=== PATIENT | male | born 1955 | race Caucasian/White ===

== ENCOUNTER 2017-05-21 21:08 | Emergency (ER) | payer MEDICAID, SELFPAY ==
[2017-05-21 21:09] VITALS: BP 198/98; PULSE 68; RESP 20; TEMP 36.8; O2SAT 93; BMI 33.8
--- NOTE | 2017-05-21 22:43 | ED.VISSUMM ---
- ER Visit Summary Date of Service: 05/21/17 Chief Complaint: [] Right leg graft site redness History of Present Illness: The patient is a 61 M who stated he had a right lower leg graft of a vein from his left arm to his right lower extremity on the seventh of this month at the [facility]. He noticed yesterday started to get red and slightly sore. Comes in for further evaluation. He has been using chlorhexidine cleanser. No postop antibiotics were given. He spent one night in the hospital. No previous infections. Physical Examination: Vital signs reviewed General: Well-nourished well-developed Head: Normocephalic atraumatic Eyes: Pupils equal round and reactive to light extraocular movements intact ENT: TMs clear no hemotympanum no trauma Neck: Nontender full range of motion Cardiovascular: Regular rate rhythm no murmurs normal S1-S2 Respiratory: No distress clear to auscultation bilaterally chest nontender Abdomen: Soft nontender nondistended normal bowel sounds no masses Back: Nontender no CVA tenderness Extremities: Nontender active range of motion ?4 extremities no trauma Skin: Since wound on his right lower extremity is scabbed over except for the central portion measuring 1 inch. There is mild fluid without any significant drainage. There is a very mild half centimeter surrounding cellulitis centrally. No fluctuance. Neuro alert oriented cranial nerves II through XII intact normal strength sensation reflexes Test Results: [] Emergency Department Course and Treatment: [] Patient will be given 1 dose of IV vancomycin for the superficial skin infection. He will be discharged with Bactrim and Keflex. I do not feel he needs admission. He will call his surgeon tomorrow for further evaluation. If his symptoms worsen despite treatment. There is no signs or symptoms of sepsis. He caught this early. Treatment Plan: [] Disposition: [] Impression: [] Post operative wound cellulitis This note was generated with [employer] dictation software. It may contain incorrect words, spelling, and punctuation that were not noted in review of the chart prior to signing ED Disposition - Plan for ED Patient: Chief Complaint: Wound Referrals: Curtis Faulkner MD [Primary Care Provider] -
--- NOTE | 2017-05-21 22:46 | ED.DCSUM_ITS ---
- ER Visit Summary Date of Service: 05/21/17 Chief Complaint: [] Right leg graft site redness History of Present Illness: The patient is a 61 M who stated he had a right lower leg graft of a vein from his left arm to his right lower extremity on the seventh of this month at the [facility]. He noticed yesterday started to get red and slightly sore. Comes in for further evaluation. He has been using chlorhexidine cleanser. No postop antibiotics were given. He spent one night in the hospital. No previous infections. Physical Examination: Vital signs reviewed General: Well-nourished well-developed Head: Normocephalic atraumatic Eyes: Pupils equal round and reactive to light extraocular movements intact ENT: TMs clear no hemotympanum no trauma Neck: Nontender full range of motion Cardiovascular: Regular rate rhythm no murmurs normal S1-S2 Respiratory: No distress clear to auscultation bilaterally chest nontender Abdomen: Soft nontender nondistended normal bowel sounds no masses Back: Nontender no CVA tenderness Extremities: Nontender active range of motion ?4 extremities no trauma Skin: Since wound on his right lower extremity is scabbed over except for the central portion measuring 1 inch. There is mild fluid without any significant drainage. There is a very mild half centimeter surrounding cellulitis centrally. No fluctuance. Neuro alert oriented cranial nerves II through XII intact normal strength sensation reflexes Test Results: [] Emergency Department Course and Treatment: [] Patient will be given 1 dose of IV vancomycin for the superficial skin infection. He will be discharged with Bactrim and Keflex. I do not feel he needs admission. He will call his surgeon tomorrow for further evaluation. If his symptoms worsen despite treatment. There is no signs or symptoms of sepsis. He caught this early. Treatment Plan: [] Disposition: [] Impression: [] Post operative wound cellulitis This note was generated with [employer] dictation software. It may contain incorrect words, spelling, and punctuation that were not noted in review of the chart prior to signing ED Disposition - Plan for ED Patient: Chief Complaint: Wound Referrals: Curtis Faulkner MD [Primary Care Provider] -
--- NOTE | 2017-05-21 22:46 | ED.DEP ---
ED Disposition - Plan for ED Patient: Disposition: Home or Assisted Living Chief Complaint: Wound Instructions: ED Wound Infec After Surgery Prescriptions: Cephalexin [Keflex] 500 mg PO Q6 #30 cap Smz/Tmp Ds [Bactrim Ds] 2 tab PO BID #28 tab Referrals: Curtis Faulkner MD [Primary Care Provider] - Additional Instructions: Follow with your surgeon on the telephone tomorrow for wound recheck.
[2017-05-22 00:11] VITALS: RESP 17; O2SAT 99
[2017-05-22 02:45] VITALS: BP 155/83; PULSE 67; RESP 16; O2SAT 94
--- NOTE | 2017-05-22 02:46 | ED.RN ---
IV SITE REMOVED CATHETER TIP INTACT. BLEEDING CONTROLLED. PATIENT DENIES ANY FURTHER NEEDS
== END 2017-05-22 02:46 | disposition home or self-care (01) ==
PROVIDERS: Emergency Provider Emergency Medicine; Family Provider Family Medicine; PCP Family Medicine
DX: T81.4XXA Infection following a procedure, initial encounter (principal); L03.115 Cellulitis of right lower limb; I73.9 Peripheral vascular disease, unspecified; E11.9 Type 2 diabetes mellitus without complications; E78.00 Pure hypercholesterolemia, unspecified; E66.9 Obesity, unspecified; Z79.82 Long term (current) use of aspirin; Z79.4 Long term (current) use of insulin; Z79.891 Long term (current) use of opiate analgesic; Z79.899 Other long term (current) drug therapy
CPT/HCPCS: 96365; 96366; 99283; J7040; A4216

== ENCOUNTER 2018-08-16 21:44 | Emergency (ER) | payer MEDICARE, SELFPAY ==
[2018-08-16 21:45] VITALS: BP 140/79; PULSE 120; RESP 18; TEMP 36.6; O2SAT 98; BMI 33.3
[2018-08-16] MEDS: Carbamide Peroxide 15 ML Bottle 5 DRP OTIC (23:09)
--- NOTE | 2018-08-16 23:37 | ED.VISSUMM ---
- ER Visit Summary Date of Service: 08/16/18 Chief Complaint: Ear pain History of Present Illness: The patient is a 63 M with right ear pain and decreased hearing. No other symptoms. Physical Examination: Patient has a cerumen impaction. Right ear is nontender. Skin normal. Test Results: None indicated Emergency Department Course and Treatment: Debrox applied. Nursing irrigated his ear. I was able to visualize his TM, and it was intact. No other pertinent findings. Patient was instructed on home care. Will be discharged. Treatment Plan: As above Disposition: Discharge Impression: 1. Right ear cerumen impaction This note was generated with [employer] dictation software. It may contain incorrect words, spelling, and punctuation that were not noted in review of the chart prior to signing ED Disposition - Plan for ED Patient: Referrals: Salty Sorto MD [Primary Care Provider] -
--- NOTE | 2018-08-16 23:38 | ED.DEP ---
ED Disposition - Plan for ED Patient: Instructions: ED Cerumen Impaction Treated Referrals: Salty Sorto MD [Primary Care Provider] -
[2018-08-16 23:46] VITALS: BP 138/72; PULSE 98; RESP 16; O2SAT 98
== END 2018-08-16 23:48 | disposition home or self-care (01) ==
LOC: ED 22:57
PROVIDERS: Emergency Provider Emergency Medicine; Family Provider Family Medicine; PCP Family Medicine
DX: H61.21 Impacted cerumen, right ear (principal); I10 Essential (primary) hypertension; E11.9 Type 2 diabetes mellitus without complications; E78.00 Pure hypercholesterolemia, unspecified; Z72.0 Tobacco use; Z79.82 Long term (current) use of aspirin; Z79.84 Long term (current) use of oral hypoglycemic drugs; Z79.899 Other long term (current) drug therapy
CPT/HCPCS: 99283

== ENCOUNTER 2021-08-09 14:07 | Emergency (ER) | payer MEDICARE, SELFPAY ==
[2021-08-09 14:08] VITALS: BP 158/89; PULSE 77; RESP 16; TEMP 36.4; O2SAT 93; BMI 33.0
--- NOTE | 2021-08-09 14:28 | CT_ITS ---
STUDY: CT ABDOMEN AND PELVIS WITHOUT CONTRAST REASON FOR EXAM: Male, 66 years old. Right flank pain. History of kidney stones. RADIATION DOSAGE (If Supplied By Facility): CTDIvol = ( 19.48 ) mGy, DLP = ( 953.83 ) mGycm TECHNIQUE: Transaxial images were obtained from the dome of the diaphragm to the symphysis pubis without oral contrast, and without intravenous contrast. Sagittal and coronal images were reconstructed. Individualized dose optimization techniques were used for this CT. COMPARISON: None. FINDINGS: Calcified granuloma in the anterior aspect of the right lower lobe. The visualized portions of the heart are within normal limits. Normal liver. There is a solitary gallstone. This measures 1.4 cm. There are multiple benign calcified granulomata of the spleen. Normal pancreas. There is a 3.3 cm x 2.7 cm fat-containing nodule in the left adrenal gland suggestive of a myelolipoma. There is also evidence of a 1.4 cm adenoma in the crux of the right adrenal gland. Normal right kidney. Normal left kidney. Normal visualized stomach. Normal small intestine. There are scattered colonic diverticula consistent with diverticulosis. The appendix is visualized and appears normal. There is scattered atherosclerotic calcification of the abdominal aorta, without a demonstrated aneurysm. Normal inferior vena cava. Normal retroperitoneum. Normal urinary bladder. There is enlargement of the prostate gland. It measures 5.9 cm x 4.7 cm. There is a small umbilical hernia containing fat. Normal osseous structures. CT/Abdomen/Pelvis without Cont IMPRESSION: Solitary gallstone. 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 Small adenoma in the right adrenal gland. Prostatic hypertrophy. Electronically Signed: Jose Manuel Zhu MD at 15:12 EDT ,
--- NOTE | 2021-08-09 14:29 | ED.VIS.GI ---
HPI HPI - GI History of Present Illness Chief Complaint: Flank Pain Informant: patient Abdominal Pain/Flank Pain Onset: Days Context: Sudden Onset Timing: Continuous Quality: Aching Location: Right Flank Current Severity: Moderate Maximum Severity: Moderate Worsened by: Movement Relieved by: Remaining Still Nausea/Vomiting/Emesis GI Symptom: Negative for Nausea and Vomiting Diarrhea/Melena/Hematochezia GI Symptom: Negative for Diarrhea, Melena and Hematochezia Associated Symptoms Associated Symptoms: Negative for Dysuria, Frequency, Hematuria and Urgency Narrative Narrative: 15-year-old male history of diabetes, prior DVT and prior kidney stone. States that he has had sudden onset right flank pain. That is increased in pain intensity since then. It has been constant. Worse with movement. Denies any falls or trauma. He had kidney stones in the past but feels this feels differently. Denies any dysuria hematuria. No fever. Prior similar symptoms: No Recent Illness/Hospitalization: No PFSH PFS Medical History (Updated 08/09/21 @ 16:[address] Rad Duncan MD) Diabetes type 2, controlled H/O blood clots High cholesterol HTN (hypertension) Home Medications atorvastatin 40 mg PO QHS 12/17/15 [History Last Taken 05/21/17] metoprolol tartrate 12.5 mg PO BID 12/17/15 [History Last Taken 05/21/17] duloxetine 20 mg PO DAILY 11/28/16 [History Last Taken 05/21/17] ropinirole 0.5 mg PO QHS 11/28/16 [History Last Taken 05/21/17] gabapentin 100 mg capsule 100 mg PO TID cap 06/19/17 [History Last Taken Unknown] meloxicam 15 mg tablet 15 mg PO DAILY 06/19/17 [History Last Taken Unknown] aspirin 81 mg PO DAILY 08/16/18 [History Last Taken Unknown] glimepiride 2 mg PO DAILY 08/16/18 [History Last Taken Unknown] hydrocodone-acetaminophen 1 tab PO Q4H PRN 5 Days #20 tab 08/09/21 [Rx Last Taken Unknown] Allergy/AdvReac Type Severity Reaction Status Date / Time No Known Allergies Allergy Verified 08/09/21 14:09 Surgical History vein surgery r leg Social History Smoking Status: Current every day smoker tobacco type: cigarettes alcohol intake: never substance use type: does not use ROS ROS ED ROS Narrative Right flank pain. Review of Systems ROS Unobtainable: Denies due to encephalopathy Constitutional Constitutional ED: Denies chills or fever(s) ENT ENT ED: Denies ear pain Cardiovascular Cardiovascular: Denies chest pain or palpitations Respiratory/Chest Respiratory/Chest: Denies cough or dyspnea Gastrointestinal Gastrointestinal: Denies abdominal pain, constipation, diarrhea, nausea or vomiting Genitourinary Genitourinary ED: Denies dysuria or hematuria Musculoskeletal Musculoskeletal: Reports back pain; Denies arthralgias, myalgias or neck pain Integumentary Denies abscess or rash Neurologic Neurologic: Denies headache(s) Psychiatric Psychiatric: Denies depression Endocrine Endocrinology: Denies polyuria Hematologic/Lymphatic Hematologic/Lymphatic: Denies easy bruising Allergic/Immunologic Allergic/Immunologic ED: Denies urticaria EXAM Physical Exam Narrative Exam Narrative: 66-year-old male vital signs stable afebrile. Does not look septic toxic. H EENT exam unremarkable. Neck nontender. Lungs clear to auscultation bilaterally. Heart regular rhythm no murmur. Chest were nontender. Abdomen soft nontender. No pulsatile mass. No peritoneal signs. Both the right upper and lower quadrants are unremarkable. Moving all 4 extremities. Dorsi plantarflexion intact. No cauda equina. Cervical, thoracic lumbar spine nontender. Left flank nontender. History of abrasion of his right flank and right SI joint. Neurologically is awake and alert with no focal motor deficits Const Vital Signs: 08/09/21 14:08 Temperature 97.5 F L Temperature Source Temporal Pulse Rate 77 Respiratory Rate 16 Blood Pressure 158/89 H Blood Pressure Mean 112 Pulse Ox 93 Oxygen Delivery Method Room Air Positive well nourished, well developed and obese; Negative for cachectic, contractures or unkempt General Appearance ED: well developed and NAD; Negative for unkempt, cachectic, contractures or pallor Nutritional Appearance: obese; Negative for cachectic HEENT Reports moist mucous membranes normocephalic and atraumatic; Negative for trauma or tenderness Eyes PERRL and EOMs intact bilaterally Neck no lymphadenopathy, supple and no JVD Resp normal respiratory effort and clear to auscultation bilaterally Auscultation: Negative for rales, rhonchi or wheezes Cardio regular rate, regular rhythm, S1 normal heart sound, S2 normal heart sound and no murmurs GI non-tender, non-distended and no masses Inspection: Negative for abdominal distention Auscultation: normoactive bowel sounds; Negative for hyperactive bowel sounds or hypoactive bowel sounds Palpation: soft; Negative for tender, guarding, rigid, hepatomegaly, splenomegaly, mass, pulsatile mass or rebound tenderness present Back/Spine Negative for no CVA tenderness Back/Spine Narrative: Right flank tenderness appears to be musculoskeletal. Also right SI joint tenderness. No spine tenderness. No left-sided tenderness. No signs of trauma. General Back: CVA tenderness Cervical Spine: Negative for cervical spine tenderness Thoracic Spine / Upper Back: Negative for thoracic spinal tenderness Lumbar Spine / Lower Back: Negative for lumbar spinal tenderness Extremity full ROM General Extremety ED: Negative for edema or tenderness General Extremity: Negative for edema Neuro moves all extremities Sensorium / Orientation: alert, oriented to person, oriented to place and oriented to time; Negative for orientation impaired, confused, lethargic or stuporous Motor Exam: strength 5/5 throughout Psych mental status grossly normal and thought process normal Appearance: Negative for unkempt Attitude: No agitated Mood & Affect: Negative for depressed or tearful Skin no wounds General Skin Exam: Negative for jaundice or pallor Lesions: no lesions Rashes: no rashes MDM MDM MDM Narrative Medical decision making narrative: 66-year-old male with atraumatic right flank pain. Appears to be reproducible and positive musculoskeletal. He has had kidney stones in the past. He will be treated with IV morphine and Zofran. CAT scan labs being obtained. Multiple repeat exams patient is doing well. He denied further discussions I think this is musculoskeletal pain. We went over all of his test results. He did state that he planting some trees over the weekend and was doing some gardening and yard work and that may have caused him to strain his lower back. He will be written for [employer] for pain. He states he has a walker and a cane at home and he feels comfortable being discharged to home. Lab Data Attestation: I reviewed the patient's lab results. Lab results narrative: CBC shows a white count of 10. H&H of 17 and 53. Electrolytes show a gap of 8 BUN 35 creatinine 1.5. The renal insufficiency is new. Compared to prior labs. Liver enzymes are unremarkable. Glucose 163. CAT scan is read by the radiologist. Urinalysis negative. Labs: Laboratory Results - last 24 hr 08/09/21 08/09/21 08/09/21 14:35 14:35 15:20 WBC 10.7 RBC 5.46 Hgb 17.9 H Hct 53.7 MCV 98.4 H MCH 32.8 H MCHC 33.3 RDW Std Deviation 52.5 H RDW Coeff of Kimberly 14.4 Plt Count 178 MPV 11.0 Immature Gran % (Auto) 0.600 Neut % (Auto) 61.8 Lymph % (Auto) 25.5 [place] % (Auto) 7.1 Eos % (Auto) 4.3 Baso % (Auto) 0.7 Absolute Neuts (auto) 6.6 Absolute Lymphs (auto) 2.73 Nucleated RBC % 0 Sodium 138 Potassium 4.6 Chloride 105 Carbon Dioxide 25.0 Anion Gap 8 BUN 35 H Creatinine 1.53 H Estim Creat Clear Calc 52.95 Est GFR (MDRD) Af Amer 59 L Est GFR (MDRD) Non-Af 49 L BUN/Creatinine Ratio 22.9 H Glucose 163 H Calcium 9.4 Total Bilirubin 0.70 AST 31 ALT 39 Alkaline Phosphatase 56 Total Protein 7.6 Albumin 3.5 Globulin 4.1 Albumin/Globulin Ratio 0.9 Urine Color Yellow Urine Clarity Clear Urine pH 6.0 Ur Specific [place] 1.015 Urine Protein 30 H Urine Glucose (UA) 1000 H Urine Ketones 5 H Urine Occult Blood 10 H Urine Nitrite Negative Urine Bilirubin Negative Urine Urobilinogen Normal Ur Leukocyte Esterase Negative Urine RBC 0 SEEN Urine WBC 0 SEEN Ur Squamous Epith Cells 0 SEEN Urine Bacteria 0 SEEN Urine Mucus 0 SEEN Radiography Diagnostic Testing: Clinical Impression(s) from Imaging Studies Abdomen/Pelvis CT 08/09/21 14:28 IMPRESSION: Solitary gallstone. 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 Small adenoma in the right adrenal gland. Prostatic hypertrophy. Electronically Signed: Jose Manuel Zhu MD at 15:12 EDT , Discharge Plan Triage Chief Complaint: Flank Pain ED Provider: Rad Duncan Dx/Rx/DC Orders Clinical Impression: Low back strain, Acute dehydration, Acute kidney insufficiency, History of diabetes mellitus Instructions: ED Back Sprain/Strain Prescriptions: New hydrocodone-acetaminophen 5-325 mg tablet 1 tab PO Q4H PRN (Reason: pain) 5 Days Qty: 20 RF: 0 No Action gabapentin 100 mg capsule 100 mg PO TID RF: 0 meloxicam 15 mg tablet 15 mg PO DAILY RF: 0 atorvastatin 40 MG tablet 40 mg PO QHS RF: 0 metoprolol tartrate 25 MG tablet 12.5 mg PO BID RF: 0 ropinirole 0.5 MG tablet 0.5 mg PO QHS RF: 0 duloxetine 20 MG capsule 20 mg PO DAILY RF: 0 glimepiride 2 MG tablet 2 mg PO DAILY RF: 0 aspirin 81 MG tablet,chewable 81 mg PO DAILY RF: 0 Primary Care Provider: Salty Sorto Referrals: Salty Sorto MD [Primary Care Provider] - 1 Week if not improving Activity Restrictions/Additional Instructions: Your labs and CAT scan look good. You had mild dehydration make sure you are drinking plenty of fluids. This appears to be strain of your lower back muscles. Hot shower, warm bath and massage. You may use a heating pad. [place] which is a narcotic for pain. Make sure you are drinking plenty of fluids and eating plenty of fruits, vegetables and fiber to prevent constipation. You might even need to use a stool softener. Follow-up with your doctor if not improving or return if worse. Disposition Disposition: Home, Self Care
[2021-08-09] MEDS: morphine 8 MG/ML Syringe IV (14:33)
[2021-08-09] MEDS: Ondansetron 4 MG/2 ML Vial IV (14:33)
[2021-08-09 14:44] LABS: Absolute Lymphocyte Count 2.73 X10^3/uL (0.83-4.51); Absolute Neutrophil Count 6.6 X10^3/uL (2.0-7.7); Basophil# 0.07 X10^3/uL; Basophil% 0.7 % (0-1); Eosinophil# 0.46 X10^3/uL; Eosinophils% 4.3 % (0-5); Hematocrit 53.7 % (40-54); Hemoglobin 17.9 g/dL (13.0-16.5); Lymphocyte # 2.73 X10^3/ul (0.83-4.51); Lymphocyte % 25.5 % (19-41); Mean Corp Hgb Conc 33.3 g/dL (32-36); Mean Corpuscular Hgb 32.8 pg (27.0-32.0); Mean Corpuscular Volume 98.4 fL (80-94); Monocyte# 0.76 X10^3/uL; Monocyte% 7.1 % (0-10); NRBC Flagged by Analyzer 0 % (0-5); Neutrophil # 6.61 X10^3/uL (2.7-7.7); Neutrophil % 61.8 % (47-70); Platelet Count 178 K/mm3 (150-450); RBC Distribution Width CV 14.4 % (11.6-14.6); RBC Distribution Width SD 52.5 fl (35.1-43.9); Red Blood Count 5.46 M/mm3 (4.6-6.2); White Blood Count 10.7 K/mm3 (4.4-11.0)
[2021-08-09 15:02] LABS: ALB/GLOB Ratio 0.9 RATIO (0.9-2.4); AST(SGOT) 31 U/L (15-37); Alanine Aminotransfer ALT/SGPT 39 U/L (16-61); Albumin, Serum 3.5 g/dL (3.2-5.0); Alkaline Phosphatase 56 U/L (45-117); Anion Gap 8 (5-15); BUN 35 mg/dL (7-18); BUN/Creat Ratio 22.9 RATIO (10-20); Calcium,Total 9.4 mg/dL (8.5-10.1); Chloride 105 mmol/L (98-107); Creatinine, Serum 1.53 mg/dL (0.70-1.30); EST Glomerular Filtration Rate 49 mL/min (>60); Est Glom Filt Rate - Afr Amer 59 mL/min (>60); Estimated Creatinine Clearance 52.95 ml/min; Globulin 4.1 g/dL (2.2-4.2); Glucose 163 mg/dL (74-106); Potassium 4.6 mmol/L (3.5-5.1); Protein, Total 7.6 g/dL (6.4-8.2); Sodium Level 138 mmol/L (136-145)
[2021-08-09 15:31] LABS: Bacteria 0 SEEN /hpf (None Seen); Mucous, Urine 0 SEEN /hpf (<or=2+); Red Blood Cells-Urine 0 SEEN /hpf (0-5); Squamous Epithelial Cells - UA 0 SEEN /hpf (0-5); White Blood Cells 0 SEEN /hpf (0-5)
[2021-08-09 15:32] LABS: Color, Urine Yellow (Yellow); Glucose, Dipstick 1000 mg/dl (Normal); Ketone-Dipstick 5 mg/dl (Negative); Leukocyte Esterase-Dipstick Negative /ul (Negative); Nitrite-Dipstick Negative (Negative); Occult Blood-Urine 10 /ul (Negative); Protein-Dipstick 30 mg/dl (Negative); Specific Gravity, Urine 1.015 (1.002-1.030); Urine Bilirubin Dipstick Negative (Negative); Urine Clarity Clear (Clear); Urine Urobilinogen Normal (Normal)
[2021-08-09 17:13] VITALS: BP 137/79; PULSE 71; RESP 16; O2SAT 97
== END 2021-08-09 17:14 | disposition home or self-care (01) ==
PROVIDERS: Emergency Provider Emergency Medicine; PCP Family Medicine; Visit Provider Emergency Medicine
DX: E11.9 Type 2 diabetes mellitus without complications (principal); I10 Essential (primary) hypertension; E86.0 Dehydration; N28.9 Disorder of kidney and ureter, unspecified; E78.00 Pure hypercholesterolemia, unspecified; S39.012A Strain of muscle, fascia and tendon of lower back, initial encounter; Z86.718 Personal history of other venous thrombosis and embolism; X58.XXXA Exposure to other specified factors, initial encounter; Y93.9 Activity, unspecified; Y99.9 Unspecified external cause status; Y92.9 Unspecified place or not applicable; Z79.899 Other long term (current) drug therapy; Z79.82 Long term (current) use of aspirin; Z79.84 Long term (current) use of oral hypoglycemic drugs; F17.210 Nicotine dependence, cigarettes, uncomplicated
CPT/HCPCS: 74176; 80053; 81001; 85025; 96374; 96375; 99284; J7030; A4216; J2405

== ENCOUNTER 2024-10-18 20:17 | Inpatient (IN) | payer MEDICARE, SELFPAY ==
[2024-10-18 20:17] VITALS: BP 130/72; PULSE 90; RESP 16; TEMP 36.1; O2SAT 97; BMI 32.0
[2024-10-18 20:21] VITALS: BP 148/83; PULSE 87; RESP 16; TEMP 36.7; O2SAT 96
--- NOTE | 2024-10-18 20:39 | RAD_ITS ---
PROCEDURE: FOOT MIN 3 VIEWS 10/18/2024 REASON FOR EXAM: GREAT TOE WOUND TECHNIQUE: FOOT MIN 3 VIEWS COMPARISON: None FINDINGS: No displaced fracture or traumatic malalignment. Plantar and Achilles heel spurs. No focal osteopenia. Joint space narrowing throughout the interphalangeal joints. Calcification in the plantar soft tissues, likely dystrophic. Slight soft tissue swelling at the great toe without radiopaque foreign body. RAD/Foot min 3 Views IMPRESSION: No definite radiographic evidence of acute osteomyelitis. Consider MRI or bone scan if there is persistent clinical concern. Reading Location: [id number]
--- OUTSIDE RECORDS SUMMARY | 2024-10-18 20:54 | XMS RPT_ITS | CCD ---
Author Organization [facility] Care Team Providers Care Cafe Cook Name Role Phone Tobi Sorto MD Primary Care Provider ALONDRA BRODERICK Referring Unavailable TOBI SORTO Primary Care Unavailab Tobi Olguin MD Primary Care Provider Podlogar POLICE STENOGRAPHER.Audrey PYLE Unavailable [place] POLICE STENOGRAPHER.Ny PYLE Unavailable [place] POLICE STENOGRAPHER.Ny PYLE Unavailable [place] POLICE STENOGRAPHER.Ny PYLE Unavailable [place] POLICE STENOGRAPHER.Ny PYLE Unavailable TOBI SORTO Primary Care Unavailab le TOBI SORTO Referring Unavailab le TOBI SORTO Primary Care Unavailab le TESTKALPANA, RAO Attending Unavailable TOBI SORTO Primary Care Unavailab TOBI Olguin Referring Unavailab le TOBI SORTO Primary Care Unavailab le TESTRAKERAO Referring Unavailable TOBI SORTO Primary Care Unavailab le TESTRAKERAO Referring Unavailable TESTRAKERAO Attending Unavailable PODLOGAUDREY KWAN Referring Unavailable TOBI SORTO Primary Care Unavailab le PODLOGAR, AUDREY Attending Unavailable TOBI SORTO Primary Care Unavailab le PODLOGAR, AUDREY Attending Unavailable TOBI SORTO Primary Care Unavailab le PODLOGARAUDREY Referring Unavailable TOBI SORTO Primary Care Unavailab le PODLOGAR, AUDREY Attending Unavailable TOBI SORTO Primary Care Unavailab le SELF Referring Unavailable TESTRARAO MENDEZ Referring Unavailable TOBI SORTO Primary Care Unavailab le TESTRAKERAO Attending Unavailable TOBI SORTO Primary Care Unavailab le TESTRAKERAO Attending Unavailable TOBI SORTO Referring Unavailab le TOBI SORTO Primary Care Unavailab le TOBI SORTO Attending Unavailab TOBI Olguin Primary Care Unavailab le TOBI SORTO Primary Care Unavailab le TESTRAKERAO Referring Unavailable TOBI SORTO Primary Care Unavailab le TESTRAKERAO Referring Unavailable TESTRAO ACUNA Attending Unavailable PODLOGARAUDREY Referring Unavailable TOBI SORTO Primary Care Unavailab le TOBI SORTO Primary Care Unavailab le TESTRARAO MENDEZ Attending Unavailable PODLOGARAUDREY Referring Unavailable TOBI SORTO Primary Care Unavailab ROLANDO Vicente Referring Unavailable TOBI SORTO Primary Care Unavailab le PODLOGARAUDREY Referring Unavailable TOBI SORTO Primary Care Unavailab le PODLOGAR, AUDREY Attending Unavailable TOBI SORTO Primary Care Unavailab le TOBI SORTO Primary Care Unavailab le TOBI SORTO Referring Unavailab le TOBI SORTO Attending Unavailab TOBI Olguin Primary Care Unavailab le ROLANDO JEAN Referring Unavailable TOBI SORTO Primary Care Unavailab le PODLOGAUDREY KWAN Attending Unavailable TOBI SORTO Primary Care Unavailab le TOBI SORTO Primary Care Unavailab le TOBI SORTO Referring Unavailab le PODLOGARAUDREY Attending Unavailable TOBI SORTO Primary Care Unavailab le SARINAROLANDO MENDIOLA Attending Unavailable TOBI SORTO Primary Care Unavailab le TOBI SORTO Attending Unavailab TOBI Olguin Primary Care Unavailab le TESTRARAO MENDEZ Referring Unavailable TOBI SORTO Primary Care Unavailab le Medications Current Medications Medication Drug Class(es) Dates Sig (Normalized) Sig (Original) [id number] 200 actuat albuterol 0.09 mg/actuat metered dose inhaler (20 sources) beta2-Adrenergic Agonist Start: 09-16-2024 take 2 puff(s) by inhalation every four hours as needed for wheezing albuterol HFA (VENTOLIN HFA) 90 mcg/actuation inhaler Inhale 2 puffs as instructed every 4 hours as needed for wheezing/shortnes s of breath. 18 g 1 09/16/2024 Active Start: 05-01-2022 End: 09-14-2024 take 2 puff(s) by inhalation every four hours as needed for wheezing albuterol HFA (VENTOLIN HFA) 90 mcg/actuation inhaler Inhale 2 Puffs as instructed every 4 hours as needed for wheezing/shortness of breath. 18 g 1 05/10/2023 09/14/2024 Discontinued Comment on above: Inhale 2 Puffs as in structed every 4 hours as needed for wheezing/shortness of breath. amitriptyline hydrochloride 25 mg oral tablet (20 sources) Tricyclic Antidepressant Start: End: take 1 tablet by mouth once Patient calls and states that he was just recently started on Trazodone. Patient reports that Trazodone has not helped him with sleep. Patient has been taking 100 mg x 1 week and has not noticed it making any difference in helping him sleep. Please review and advise, Amanda Alcazar RN documented in this encounter [facility] 07-21-2024 Telephone encounter Note Stop trazodone. Start 10 mg amitriptyline qhs instead to help with sleep. This is an alternative antidepressant. Call in 1-2 weeks with update on sleep or sooner with side effects. [facility] 07-21-2024 Telephone encounter Note Patient calls and states that he was just recently started on Trazodone. Patient reports that Trazodone has not helped him with sleep. Patient has been taking 100 mg x 1 week and has not noticed it making any difference in helping him sleep. Please review and advise, Amanda Alcazar RN [facility] 07-16-2024 History of Present illness Narrative Radiology Service Progress Note PATIENT NAME: Joshua Estes DATE OF SERVICE: July 16, 2024 TIME: 5:22 PM PATIENT IDENTITY VERIFICATION COMPLETED USING TWO (2) IDENTIFIERS: Name and Date of confirmed by patient verbally. FALL SCREENING: Has the patient had 2 falls in the last year or 1 fall with injury or currently using an Ambulatory Assistive Device (Walker, Cane, Wheelchair, Crutches, etc.)? No PATIENT GENDER DATA: Assigned male at PATIENT RELEVANT IMPLANT DATA REVIEWED: Not Applicable PATIENT PRESENTS WITH AN IMPLANTABLE OR ATTACHED SUPERINTENDENT OIL WELL SERVICES: No RADIOLOGY DEPARTMENT: General X-ray: Exam(s) Completed: Chest X-Ray PERIPHERAL IV DATA: Not applicable SIGNED BY: Titi Campbell July 16, 2024 5:22 PM documented in this encounter [facility] 07-16-2024 Note HNO ID: [id number] Author: SUSAN QUARLES Tech Service: ? Author Type: Technologist Type: Progress Notes Filed: 07/16/2024 17:27 Note Text: Radiology Service Progress Note PATIENT NAME: Joshua Estes DATE OF SERVICE: July 16, 2024 TIME: 5:22 PM PATIENT IDENTITY VERIFICATION COMPLETED USING TWO (2) IDENTIFIERS: Name and Date of confirmed by patient verbally. FALL SCREENING: Has the patient had 2 falls in the last year or 1 fall with injury or currently using an Ambulatory Assistive Device (Walker, Cane, Wheelchair, Crutches, etc.)? No PATIENT GENDER DATA: Assigned male at PATIENT RELEVANT IMPLANT DATA REVIEWED: Not Applicable PATIENT PRESENTS WITH AN IMPLANTABLE OR ATTACHED SUPERINTENDENT OIL WELL SERVICES: No RADIOLOGY DEPARTMENT: General X-ray: Exam(s) Completed: Chest X-Ray PERIPHERAL IV DATA: Not applicable SIGNED BY: Titi Campbell July 16, 2024 5:22 PM [facility] 07-16-2024 Note HNO ID: [id number] Author: AUDREY PACKER APRN.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 SPECIALIST Service: ? Author Type: Nurse Practitioner Type: Progress Notes Filed: 07/16/2024 17:27 Note Text: 07/16/2024 Patient presents with: Edema: Bilateral lower extremity edema x2 days SUBJECTIVE: This is a 69 year old that is here today for Above Complaints.. Noticed Sunday bilateral legs swollen when he got up. Seemed worse as the day went on. Denies SOB, dyspnea, or chest pain Has had cough for about 4 weeks. Mostly non productive. Taking OTC cough medication with little relief. Denies fevers, chills, SOB, dyspnea or wheezing. Patient does smoke about 1/4 pack of cigarettes a day PAST MEDICAL HISTORY Diagnosis Date Aneurysm right common femoral artery. Dr. Ordoñez Colon polyps 08/2018 benign, repeat in 10 years Diabetes mellitus, type II (HCC) Diabetic ulcer of toe of right foot (HCC) DVT (deep venous thrombosis) (HCC) GERD (gastroesophageal reflux disease) Hyperlipidemia Hypertension Obesity PAC (premature atrial contraction) Peripheral arterial disease Restless leg syndrome Snoring Tobacco use ALLERGIES Patient has no known allergies. MEDICATIONS Current Outpatient Medications Medication Sig traZODone (DESYREL) 50 mg tablet Take 1 tablet by mouth daily at bedtime. ferrous sulfate 325 mg (65 mg iron) tablet Take 1 tablet by mouth once daily. gabapentin (NEURONTIN) 300 mg capsule Take 3 capsules by mouth daily at bedtime for 90 days. gabapentin (NEURONTIN) 600 mg tablet Take one tablet between 2-3 PM daily pramipexole (MIRAPEX) 0.25 mg tablet Take 2 tablets by mouth daily at bedtime. empagliflozin (JARDIANCE) 25 mg tablet Take 1 tablet by mouth once daily. Take 1 tablet once daily in the morning fluticasone-salmeterol (ADVAIR) 500-50 mcg/dose dsdv INHALE 1 PUFF INSTRUCTED TWO TIMES A DAY metFORMIN (GLUCOPHAGE) 1,000 mg tablet Take 1 tablet by mouth two times a day with meals. . losartan (COZAAR) 100 mg tablet Take 1 tablet by mouth once daily. atorvastatin (LIPITOR) 40 mg tablet Take 1 tablet by mouth once daily. For cholesterol. hydroCHLOROthiazide 50 mg tablet Take 1 tablet by mouth once daily. glimepiride (AMARYL) 4 mg tablet Take 2 tablets by mouth daily with breakfast. montelukast (SINGULAIR) 10 mg tablet TAKE 1 TABLET BY MOUTH EVERYDAY AT BEDTIME albuterol HFA (VENTOLIN HFA) 90 mcg/actuation inhaler Inhale 2 Puffs as instructed every 4 hours as needed for wheezing/shortness of breath. Lactobacillus acidophilus (FLORAJEN ACIDOPHILUS) 20 billion cell capsule Take 1 capsule by mouth once daily. (Patient not taking: Reported on 07/23/2023) blood sugar diagnostic (TRUE METRIX GLUCOSE TEST STRIP) test strip Test once daily DX: E11.42, E11.29 Blood Pressure Monitor (BLOOD PRESSURE KIT) 1 Each once daily. pentoxifylline ER (TRENTAL) 400 mg CR tablet Take 1 tablet by mouth three times daily with meals. Blood-Glucose Meter (TRUE METRIX AIR GLUCOSE METER) misc 1 Device twice daily. Lancets lancets Test once daily DX: E11.42. E11.29 insulin needles, DISPOSABLE, (BD INSULIN PEN NEEDLE UF) 31 gauge x 5/16 ndle 1 Each once daily. aspirin 81 mg chewable tablet Take 1 tablet by mouth once daily. No current facility-administered medications for this visit. Medications and allergies reviewed by this provider. SOCIAL HISTORY Social History Tobacco Use Smoking status: Some Days Current packs/day: 0.25 Average packs/day: 0.3 packs/day for 46.0 years (11.5 ttl pk-yrs) Types: Cigarettes Passive exposure: Never Smokeless tobacco: Never Tobacco comments: Started to smoke again, 1/2 pack a week Vaping Use Vaping status: Never Used Substance Use Topics Alcohol use: No Drug use: No REVIEW OF SYSTEMS All other reviewed and negative other than HPI. OBJECTIVE: BP 142/82 Pulse 83 Resp 18 Wt 114.3 kg (252 lb) SpO2 95% BMI 34.18 kg/m? . Vital signs reviewed by this provider. APPEARANCE Well appearing, alert, in no acute distress, well-hydrated, well nourished. EYES PERRLA, conjunctiva and sclera normal. HEART RRR with normal S1 and S2, no murmurs, no gallops, no JVD appreciated LUNG diminished breath sounds bibasilar EXTREMITIES No deformities, No edema. Pedal pulses non palpable with cap refill WNL. Skin warm to touch. Dependent rubor bilateral feet and toes Depression Screening Never done Anxiety Screening Never done BP Controlled (<130/80) due on 07/04/2022 Dilated Retinal Exam due on 08/10/2022 Advance Directive Discussion Never done Influenza Vaccine(1) due on 09/29/2024 Covid-19 Vaccine( season) due on 01/07/2025 RSV Vaccine(1 - Risk 60-74 years 1-dose series) due on 07/08/2025 Shingrix Vaccine(1 of 2) due on 07/08/2025 Urine Albumin:Creatinine Ratio due on 08/22/2024 LDL Cholesterol due on 08/22/2024 Diabetic Foot Exam due on 01/07/2025 HbA1C due on 01/07/2025 Annual PCP Team Chronic Disease Visit due on 07/16/2025 Colorectal Cancer (more content not included)... [facility] 07-16-2024 History of Present illness Narrative 07/16/2024 Patient presents with: Edema: Bilateral lower extremity edema x2 days SUBJECTIVE: This is a 69 year old that is here today for Above Complaints.. Noticed Sunday bilateral legs swollen when he got up. Seemed worse as the day went on. Denies SOB, dyspnea, or chest pain Has had cough for about 4 weeks. Mostly non productive. Taking OTC cough medication with little relief. Denies fevers, chills, SOB, dyspnea or wheezing. Patient does smoke about 1/4 pack of cigarettes a day PAST MEDICAL HISTORY Diagnosis Date Aneurysm right common femoral artery. Dr. Ordoñez Colon polyps 08/2018 benign, repeat in 10 years Diabetes mellitus, type II (HCC) Diabetic ulcer of toe of right foot (HCC) DVT (deep venous thrombosis) (HCC) GERD (gastroesophageal reflux disease) Hyperlipidemia Hypertension Obesity PAC (premature atrial contraction) Peripheral arterial disease Restless leg syndrome Snoring Tobacco use ALLERGIES Patient has no known allergies. MEDICATIONS Current Outpatient Medications Medication Sig traZODone (DESYREL) 50 mg tablet Take 1 tablet by mouth daily at bedtime. ferrous sulfate 325 mg (65 mg iron) tablet Take 1 tablet by mouth once daily. gabapentin (NEURONTIN) 300 mg capsule Take 3 capsules by mouth daily at bedtime for 90 days. gabapentin (NEURONTIN) 600 mg tablet Take one tablet between 2-3 PM daily pramipexole (MIRAPEX) 0.25 mg tablet Take 2 tablets by mouth daily at bedtime. empagliflozin (JARDIANCE) 25 mg tablet Take 1 tablet by mouth once daily. Take 1 tablet once daily in the morning fluticasone-salmeterol (ADVAIR) 500-50 mcg/dose dsdv INHALE 1 PUFF INSTRUCTED TWO TIMES A DAY metFORMIN (GLUCOPHAGE) 1,000 mg tablet Take 1 tablet by mouth two times a day with meals. . losartan (COZAAR) 100 mg tablet Take 1 tablet by mouth once daily. atorvastatin (LIPITOR) 40 mg tablet Take 1 tablet by mouth once daily. For cholesterol. hydroCHLOROthiazide 50 mg tablet Take 1 tablet by mouth once daily. glimepiride (AMARYL) 4 mg tablet Take 2 tablets by mouth daily with breakfast. montelukast (SINGULAIR) 10 mg tablet TAKE 1 TABLET BY MOUTH EVERYDAY AT BEDTIME albuterol HFA (VENTOLIN HFA) 90 mcg/actuation inhaler Inhale 2 Puffs as instructed every 4 hours as needed for wheezing/shortness of breath. Lactobacillus acidophilus (FLORAJEN ACIDOPHILUS) 20 billion cell capsule Take 1 capsule by mouth once daily. (Patient not taking: Reported on 07/23/2023) blood sugar diagnostic (TRUE METRIX GLUCOSE TEST STRIP) test strip Test once daily DX: E11.42, E11.29 Blood Pressure Monitor (BLOOD PRESSURE KIT) 1 Each once daily. pentoxifylline ER (TRENTAL) 400 mg CR tablet Take 1 tablet by mouth three times daily with meals. Blood-Glucose Meter (TRUE METRIX AIR GLUCOSE METER) misc 1 Device twice daily. Lancets lancets Test once daily DX: E11.42. E11.29 insulin needles, DISPOSABLE, (BD INSULIN PEN NEEDLE UF) 31 gauge x 5/16 ndle 1 Each once daily. aspirin 81 mg chewable tablet Take 1 tablet by mouth once daily. No current facility-administered medications for this visit. Medications and allergies reviewed by this provider. SOCIAL HISTORY Social History Tobacco Use Smoking status: Some Days Current packs/day: 0.25 Average packs/day: 0.3 packs/day for 46.0 years (11.5 ttl pk-yrs) Types: Cigarettes Passive exposure: Never Smokeless tobacco: Never Tobacco comments: Started to smoke again, 1/2 pack a week Vaping Use Vaping status: Never Used Substance Use Topics Alcohol use: No Drug use: No REVIEW OF SYSTEMS All other reviewed and negative other than HPI. OBJECTIVE: BP 142/82 Pulse 83 Resp 18 Wt 114.3 kg (252 lb) SpO2 95% BMI 34.18 kg/m . Vital signs reviewed by this provider. APPEARANCE Well appearing, alert, in no acute distress, well-hydrated, well nourished. EYES PERRLA, conjunctiva and sclera normal. HEART RRR with normal S1 and S2, no murmurs, no gallops, no JVD appreciated LUNG diminished breath sounds bibasilar EXTREMITIES No deformities, No edema. Pedal pulses non palpable with cap refill WNL. Skin warm to touch. Dependent rubor bilateral feet and toes Depression Screening Never done Anxiety Screening Never done BP Controlled (<130/80) due on 07/04/2022 Dilated Retinal Exam due on 08/10/2022 Advance Directive Discussion Never done Influenza Vaccine(1) due on 09/29/2024 Covid-19 Vaccine(1 - 2023- season) due on 01/07/2025 RSV Vaccine(1 - Risk 60-74 years 1-dose series) due on 07/08/2025 Shingrix Vaccine(1 of 2) due on 07/08/2025 Urine Albumin:Creatinine Ratio due on 08/22/2024 LDL Cholesterol due on 08/22/2024 Diabetic Foot Exam due on 01/07/2025 HbA1C due on 01/07/2025 Annual PCP Team Chronic Disease Visit due on 07/16/2025 Colorectal Cancer Screening due on 09/12/2028 DTaP,Tdap,Td Vaccine(2 - Td or Tdap) due on 11/22/2028 Abdominal Aortic Aneurysm Screening Completed Hepatitis C Screening Completed Pneumococcal Vaccine: 50+ Completed ASSESSMENT/PLAN: 1. Leg swelling - ICD9: 729.81, ICD10: M79.89 (primary diagnosis) - no swelling on exam today - recommend low salt diet and elevate legs when sitting - apply compression stocking in the AM off in the PM - COMPRESSION STOCKINGS 2. Abnormal lung sounds - ICD9: 786.7, ICD10: R09.89 - consider pneumonia vs related to his smoking - no red flag symptoms or exam findings - red flag symptoms discussed, verbalizes understanding - offered zulma Mcdonnell- declines, continue OTC cough medication as directed on packaging - smoking cessation encouraged - XR CHEST 2V FRONTAL/LAT - follow-up if symptoms fail to improve to ER with red flag symptoms Audrey Packer APRN.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 SPECIALIST Prescription instructions reviewed with patient as applicable. Patient advised if symptoms do not improve or if symptoms worsen sooner, to contact their primary care physician. Potential red flag symptoms discussed with the patient. Reviewed appropriate action plan to take if red flag symptoms occur. Patient agreeable to treatment plan. I spent a total of 30 minutes on the date of the service which included preparing to see the patient, [id number] patient care, completing clinical documentation, obtaining and/or reviewing separately obtained history, performing a medically appropriate examination, counseling and educating the patient/family/caregiver, and ordering medications, tests, or procedures. documented in this encounter [facility] 07-16-2024 Telephone encounter Note Triage protocol advised: See provider today. Appt made for today. Reason for Disposition [1] MODERATE leg swelling (e.g., swelling extends up to knees) AND [2] new-onset or getting WORSE Answer Assessment - Initial Assessment Questions 1. ONSET: Sunday07/14/24 2. LOCATION: both feet, ankles and slightly up to knees 3. SEVERITY: reports moderate to severe 4. REDNESS: denies 5. PAIN: reports they ache like crazy 6. FEVER: denies fever/chills 7. CAUSE: Pt started trazodone on 07/08, he wonders if this is contributing 8. MEDICAL HISTORY: (see history) 9. RECURRENT SYMPTOM: no, never happened before 10. OTHER SYMPTOMS: -foot, ankle and leg swelling -coughing day and night-mostly nonproductive, possible rattle in chest -no redness -no numbness/tingling -no severe pain -no chest pain or SOB Protocols used: Leg Swelling and [id number] [facility] 07-16-2024 Miscellaneous Notes Triage protocol advised: See provider today. Appt made for today. Reason for Disposition [1] MODERATE leg swelling (e.g., swelling extends up to knees) AND [2] new-onset or getting WORSE Answer Assessment - Initial Assessment Questions 1. ONSET: Sunday07/14/24 2. LOCATION: both feet, ankles and slightly up to knees 3. SEVERITY: reports moderate to severe 4. REDNESS: denies 5. PAIN: reports they ache like crazy 6. FEVER: denies fever/chills 7. CAUSE: Pt started trazodone on 07/08, he wonders if this is contributing 8. MEDICAL HISTORY: (see history) 9. RECURRENT SYMPTOM: no, never happened before 10. OTHER SYMPTOMS: -foot, ankle and leg swelling -coughing day and night-mostly nonproductive, possible rattle in chest -no redness -no numbness/tingling -no severe pain -no chest pain or SOB Protocols used: Leg Swelling and [id number] documented in this encounter [facility] 07-16-2024 Telephone encounter Note Updated patient with results and he voiced understanding. Dolores Jama LPN [facility] 07-16-2024 Miscellaneous Notes Updated patient with results and he voiced understanding. Dolores Jama LPN ----- Message from Tobi Sorto MD sent at 07/16/2024 7:04 AM EDT ----- Normal kidney ultrasound. Recommend low sodium diet <2,000 mg per day, avoidance of NSAIDs, and increased water intake. documented in this encounter [facility] 07-16-2024 Telephone encounter Note ----- Message from Tobi Sorto MD sent at 07/16/2024 7:04 AM EDT ----- Normal kidney ultrasound. Recommend low sodium diet <2,000 mg per day, avoidance of NSAIDs, and increased water intake. [facility] 07-14-2024 Telephone encounter Note Patient returned call and went over notes below from Dr Sorto with understanding. [facility] 07-14-2024 Miscellaneous Notes Patient returned call and went over notes below from Dr Sorto with understanding. Was speaking with patient and line went . Attempted calling patient back but got his VM. Message left for him to return call. Dolores Jama LPN Increase trazodone dose to 2 tablets (100 mg) before bed and let me know in about 1 week if it is not helping. Pt notified of results and provider message. Pt voiced understanding. Pt reports that trazodone 50 mg is not helping with sleep problem at all. Pt is asking what else he could try. Please review and advise. Karen Rush LPN Telephone call placed to patient. Message left to call office back for update. Marleny Raygoza LPN ----- Message from Tobi Sorto MD sent at 07/14/2024 7:03 AM EDT ----- UA positive for protein in the urine as well as sugar. Negative for infection. Work on low carb diet and regular exercise for history of diabetes. Awaiting kidney/bladder US results. documented in this encounter [facility] 07-14-2024 Telephone encounter Note Was speaking with patient and line went . Attempted calling patient back but got his VM. Message left for him to return call. Dolores Jama LPN [facility] 07-14-2024 Telephone encounter Note Increase trazodone dose to 2 tablets (100 mg) before bed and let me know in about 1 week if it is not helping. [facility] 07-14-2024 Telephone encounter Note Pt notified of results and provider message. Pt voiced understanding. Pt reports that trazodone 50 mg is not helping with sleep problem at all. Pt is asking what else he could try. Please review and advise. Karen Rush LPN [facility] 07-14-2024 Telephone encounter Note Telephone call placed to patient. Message left to call office back for update. Marleny Raygoza LPN [facility] 07-14-2024 History of Present illness Narrative Radiology Service Progress Note PATIENT NAME: Joshua Estes DATE OF SERVICE: July 14, 2024 TIME: 11:27 AM PATIENT IDENTITY VERIFICATION COMPLETED USING TWO (2) IDENTIFIERS: Name and Date of confirmed by patient verbally. FALL SCREENING: Has the patient had 2 falls in the last year or 1 fall with injury or currently using an Ambulatory Assistive Device (Walker, Cane, Wheelchair, Crutches, etc.)? No PATIENT GENDER DATA: Assigned male at PATIENT RELEVANT IMPLANT DATA REVIEWED: Not Applicable PATIENT PRESENTS WITH AN IMPLANTABLE OR ATTACHED SUPERINTENDENT OIL WELL SERVICES: No RADIOLOGY DEPARTMENT: Ultrasound PERIPHERAL IV DATA: Not applicable SIGNED BY: Khadijah Dalton RDMS July 14, 2024 11:27 AM documented in this encounter [facility] 07-14-2024 Note HNO ID: [id number] Author: KHADIJAH DALTON RDMS Service: ? Author Type: Jig And Fixture Builder Type: Progress Notes Filed: 07/14/2024 11:27 Note Text: Radiology Service Progress Note PATIENT NAME: Joshua Estes DATE OF SERVICE: July 14, 2024 TIME: 11:27 AM PATIENT IDENTITY VERIFICATION COMPLETED USING TWO (2) IDENTIFIERS: Name and Date of confirmed by patient verbally. FALL SCREENING: Has the patient had 2 falls in the last year or 1 fall with injury or currently using an Ambulatory Assistive Device (Walker, Cane, Wheelchair, Crutches, etc.)? No PATIENT GENDER DATA: Assigned male at PATIENT RELEVANT IMPLANT DATA REVIEWED: Not Applicable PATIENT PRESENTS WITH AN IMPLANTABLE OR ATTACHED SUPERINTENDENT OIL WELL SERVICES: No RADIOLOGY DEPARTMENT: Ultrasound PERIPHERAL IV DATA: Not applicable SIGNED BY: Khadijah Dalton RDMS July 14, 2024 11:27 AM [facility] 07-14-2024 Telephone encounter Note ----- Message from Tobi Sorto MD sent at 07/14/2024 7:03 AM EDT ----- UA positive for protein in the urine as well as sugar. Negative for infection. Work on low carb diet and regular exercise for history of diabetes. Awaiting kidney/bladder US results. [facility] 07-09-2024 Telephone encounter Note Phoned patient and reviewed provider's message with him. Patient voiced understanding. Dolores Jama LPN [facility] 07-09-2024 Miscellaneous Notes Phoned patient and reviewed provider's message with him. Patient voiced understanding. Dolores Jama LPN ----- Message from Tobi Sorto MD sent at 07/09/2024 7:58 AM EDT ----- Diabetes well controlled with A1c of 6.6. Kidney function remains low in CKD stage 3 range for more than 6 months now, but does not appear changed from last OV. Recommend low sodium diet <2,000 mg per day, avoidance of NSAIDs, and increased water intake. Will order UA and renal US for further workup. Can come in this week or next for urine testing. documented in this encounter [facility] 07-09-2024 Telephone encounter Note ----- Message from Tobi Sorto MD sent at 07/09/2024 7:58 AM EDT ----- Diabetes well controlled with A1c of 6.6. Kidney function remains low in CKD stage 3 range for more than 6 months now, but does not appear changed from last OV. Recommend low sodium diet <2,000 mg per day, avoidance of NSAIDs, and increased water intake. Will order UA and renal US for further workup. Can come in this week or next for urine testing. [facility] 07-08-2024 Note HNO ID: [id number] Author: TOBI SORTO MD Service: ? Author Type: Physician Type: Progress Notes Filed: 07/09/2024 07:11 Note Text: Chief Complaint Patient presents with: Follow Up: 6 month routine HPI Joshua Estes is a 68 year old male who presents here today for Above Complaints. Patient has been in good health without recent hospitalizations, ER visits, or falls. Patient complaining of sleep disturbance in the last 2 months. States that he has been waking up about every 2 hours and will be up for an hour before falling asleep again. Has tried taking melatonin without any improvement. Has also tried increasing exercise. Drinking 3 cups of coffee per day and still smokes 6 cigarettes per week. Not interested in help with cessation. Denies depression/anxiety, uncontrolled RLS, or frequent urination. DIABETES MELLITUS: Mr. Estes was last seen 6 months ago. Since our last visit he denies excessive thirst or increased frequency of urination, numbness, tingling or pain in extremities, new or unusual visual symptoms, and low sugar/hypoglycemic reactions. Follows a diabetic diet most of the time. He is compliant with medication(s) and is tolerating med(s) without any side effects. He reports checking his glucose on a twice a day schedule with sugars in the <120 range. Patient's last HgA1C was Hemoglobin A1C (%) Date Value 12/05/2023 7.4 08/23/2023 8.1 02/21/2021 6.8 06/11/2020 8.1 ) Last Ophthalmology exam was more than 12 months ago. Has appointment in 2-3 weeks. Last Podiatry exam was within the past 12 months BP well controlled on current regimen today. Readings at home similar today. Mirapex and gabapentin working well to control his symptoms of RLS. Due for repeat iron levels in July. No claudication with history of PAD and trental s/p right leg bypass. Due for f/u with vascular in January. Past medical history, appointments, medications, allergies reviewed. Previous Medical History PAST MEDICAL HISTORY Diagnosis Date Aneurysm right common femoral artery. Dr. Ordoñez Colon polyps 08/2018 benign, repeat in 10 years Diabetes mellitus, type II (HCC) Diabetic ulcer of toe of right foot (HCC) DVT (deep venous thrombosis) (HCC) GERD (gastroesophageal reflux disease) Hyperlipidemia Hypertension Obesity PAC (premature atrial contraction) Peripheral arterial disease Restless leg syndrome Snoring Tobacco use Previous Surgical History PAST SURGICAL HISTORY Procedure Laterality Date COLONOSCOPY FLX DX W/COLLJ SPEC WHEN PFRMD 09/12/2018 Colonoscopy IANDD ABSC; [facility] OR SGL Right 12/22/2015 Incision and drainage of right groin collection, debridement of full- thickness skin and soft tissue. 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 Family History FAMILY HISTORY Problem Relation Age of Onset other (liver cancer) Mother age 34 Cancer Father age 54 Diabetes Brother Alive age 68 Asthma Other Alive age 41 No Known Problems Maternal Grandmother No Known Problems Maternal Grandfather No Known Problems Paternal Grandmother No Known Problems Paternal Grandfather Patient Allergies ALLERGIES No Known Allergies Current Medications Current Outpatient Medications on File Prior to Visit Medication Sig ferrous sulfate 325 mg (65 mg iron) tablet Take 1 tablet by mouth once daily. gabapentin (NEURONTIN) 300 mg capsule Take 3 capsules by mouth daily at bedtime for 90 days. gabapentin (NEURONTIN) 600 mg tablet Take one tablet between 2-3 PM daily pramipexole (MIRAPEX) 0.25 mg tablet Take 2 tablets by mouth daily at bedtime. empagliflozin (JARDIANCE) 25 mg tablet Take 1 tablet by mouth once daily. Take 1 tablet once daily in the morning fluticasone-salmeterol (ADVAIR) 500-50 mcg/dose dsdv INHALE 1 PUFF INSTRUCTED TWO TIMES A DAY metFORMIN (GLUCOPHAGE) 1,000 mg tablet Take 1 tablet by mouth two times a day with meals. . losartan (COZAAR) 100 mg tablet Take 1 tablet by mouth once daily. atorvastatin (LIPITOR) 40 mg tablet Take 1 tablet by mouth once daily. For cholesterol. hydroCHLOROthiazide 50 mg tablet Take 1 tablet by mouth once daily. glimepiride (AMARYL) 4 mg tablet Take 2 tablets by mouth daily with breakfast. montelukast (SINGULAIR) 10 mg tablet TAKE 1 TABLET BY MOUTH EVERYDAY AT BEDTIME albuterol HFA (VENTOLIN HFA) 90 mcg/actuation inhaler Inhale 2 Puffs as instructed every 4 hours as needed for wheezing/shortness of breath. Lactobacillus acidophilus (FLORAJEN ACIDOPHILUS) 20 billion cell c (more content not included)... [facility] 07-08-2024 History of Present illness Narrative Chief Complaint Patient presents with: Follow Up: 6 month routine HPI Joshua Estes is a 68 year old male who presents here today for Above Complaints. Patient has been in good health without recent hospitalizations, ER visits, or falls. Patient complaining of sleep disturbance in the last 2 months. States that he has been waking up about every 2 hours and will be up for an hour before falling asleep again. Has tried taking melatonin without any improvement. Has also tried increasing exercise. Drinking 3 cups of coffee per day and still smokes 6 cigarettes per week. Not interested in help with cessation. Denies depression/anxiety, uncontrolled RLS, or frequent urination. DIABETES MELLITUS: Mr. Estes was last seen 6 months ago. Since our last visit he denies excessive thirst or increased frequency of urination, numbness, tingling or pain in extremities, new or unusual visual symptoms, and low sugar/hypoglycemic reactions. Follows a diabetic diet most of the time. He is compliant with medication(s) and is tolerating med(s) without any side effects. He reports checking his glucose on a twice a day schedule with sugars in the <120 range. Patient's last HgA1C was Hemoglobin A1C (%) Date Value 12/05/2023 7.4 08/23/2023 8.1 02/21/2021 6.8 06/11/2020 8.1 ) Last Ophthalmology exam was more than 12 months ago. Has appointment in 2-3 weeks. Last Podiatry exam was within the past 12 months BP well controlled on current regimen today. Readings at home similar today. Mirapex and gabapentin working well to control his symptoms of RLS. Due for repeat iron levels in July. No claudication with history of PAD and trental s/p right leg bypass. Due for f/u with vascular in January. Past medical history, appointments, medications, allergies reviewed. Previous Medical History PAST MEDICAL HISTORY Diagnosis Date Aneurysm right common femoral artery. Dr. Ordoñez Colon polyps 08/2018 benign, repeat in 10 years Diabetes mellitus, type II (HCC) Diabetic ulcer of toe of right foot (HCC) DVT (deep venous thrombosis) (HCC) GERD (gastroesophageal reflux disease) Hyperlipidemia Hypertension Obesity PAC (premature atrial contraction) Peripheral arterial disease Restless leg syndrome Snoring Tobacco use Previous Surgical History PAST SURGICAL HISTORY Procedure Laterality Date COLONOSCOPY FLX DX W/COLLJ SPEC WHEN PFRMD 09/12/2018 Colonoscopy I&D ABSC; [facility] OR SGL Right 12/22/2015 Incision and drainage of right groin collection, debridement of full- thickness skin and soft tissue. 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 Family History FAMILY HISTORY Problem Relation Age of Onset other (liver cancer) Mother age 34 Cancer Father age 54 Diabetes Brother Alive age 68 Asthma Other Alive age 41 No Known Problems Maternal Grandmother No Known Problems Maternal Grandfather No Known Problems Paternal Grandmother No Known Problems Paternal Grandfather Patient Allergies ALLERGIES No Known Allergies Current Medications Current Outpatient Medications on File Prior to Visit Medication Sig ferrous sulfate 325 mg (65 mg iron) tablet Take 1 tablet by mouth once daily. gabapentin (NEURONTIN) 300 mg capsule Take 3 capsules by mouth daily at bedtime for 90 days. gabapentin (NEURONTIN) 600 mg tablet Take one tablet between 2-3 PM daily pramipexole (MIRAPEX) 0.25 mg tablet Take 2 tablets by mouth daily at bedtime. empagliflozin (JARDIANCE) 25 mg tablet Take 1 tablet by mouth once daily. Take 1 tablet once daily in the morning fluticasone-salmeterol (ADVAIR) 500-50 mcg/dose dsdv INHALE 1 PUFF INSTRUCTED TWO TIMES A DAY metFORMIN (GLUCOPHAGE) 1,000 mg tablet Take 1 tablet by mouth two times a day with meals. . losartan (COZAAR) 100 mg tablet Take 1 tablet by mouth once daily. atorvastatin (LIPITOR) 40 mg tablet Take 1 tablet by mouth once daily. For cholesterol. hydroCHLOROthiazide 50 mg tablet Take 1 tablet by mouth once daily. glimepiride (AMARYL) 4 mg tablet Take 2 tablets by mouth daily with breakfast. montelukast (SINGULAIR) 10 mg tablet TAKE 1 TABLET BY MOUTH EVERYDAY AT BEDTIME albuterol HFA (VENTOLIN HFA) 90 mcg/actuation inhaler Inhale 2 Puffs as instructed every 4 hours as needed for wheezing/shortness of breath. Lactobacillus acidophilus (FLORAJEN ACIDOPHILUS) 20 billion cell capsule Take 1 capsule by mouth once daily. (Patient not taking: Reported on 07/23/2023) blood sugar diagnostic (TRUE METRIX GLUCOSE TEST STRIP) test strip Test once daily DX: E11.42, E11.29 Blood Pressure Monitor (BLOOD PRESSURE KIT) 1 Each once daily. pentoxifylline ER (TRENTAL) 400 mg CR tablet Take 1 tablet by mouth three times daily with meals. Blood-Glucose Meter (TRUE METRIX AIR GLUCOSE METER) misc 1 Device twice daily. Lancets lancets Test once daily DX: E11.42. E11.29 insulin needles, DISPOSABLE, (BD INSULIN PEN NEEDLE UF) 31 gauge x 5/16 ndle 1 Each once daily. aspirin 81 mg chewable tablet Take 1 tablet by mouth once daily. No current facility-administered medications on file prior to visit. Social History Social History Tobacco Use Smoking status: Some Days Current packs/day: 0.25 Average packs/day: 0.3 packs/day for 46.0 years (11.5 ttl pk-yrs) Types: Cigarettes Passive exposure: Never Smokeless tobacco: Never Tobacco comments: Started to smoke again, 1/2 pack a week Vaping Use Vaping status: Never Used Substance Use Topics Alcohol use: No Drug use: No Review of Symptoms REVIEW OF SYSTEMS GENERAL: No weight loss, malaise or fevers RESPIRATORY: Admits to productive cough with clear sputum which started about 3 weeks ago. Negative for hemoptysis, wheezing, COPD, dyspnea or shortness of breath CARDIOVASCULAR: Negative for chest pain, leg swelling, hypertension, CHF or palpitations GI: No nausea, vomiting, or diarrhea SKIN: irritating lesion EXAM: BP 136/84 Pulse 75 Resp 18 Wt 112.1 kg (247 lb 3.2 oz) SpO2 95% BMI 33.53 kg/m General Appearance: Well appearing, alert, in no acute distress, well-hydrated, well nourished.. Skin: 1 cm raised red lesion on upper back just below neck with some central crusting/flaking and discoloration. Irregular shape. Lungs: Lungs clear to auscultation. No wheezing, rhonchi, rales.. Heart: RRR without murmur, gallop, or rubs. No ectopy. Abdomen: Normal abdominal exam, Abdomen soft, non-tender. Bowel sounds normal. No masses, organomegaly. Extremities: No deformities, edema, skin discoloration, clubbing or cyanosis. Good capillary refill. . Health Maintenance List Depression Screening Never done Anxiety Screening Never done Shingrix Vaccine(1 of 2) Never done RSV Vaccine(1 - Risk 60-74 years 1-dose series) Never done Pneumococcal Vaccine: 50+(2 of 2 - PCV) due on 11/23/2019 Dilated Retinal Exam due on 08/10/2022 Advance Directive Discussion Never done HbA1C due on 06/03/2024 Influenza Vaccine(1) due on 09/29/2024 Covid-19 Vaccine( - 2023- season) due on 01/07/2025 Urine Albumin:Creatinine Ratio due on 08/22/2024 LDL Cholesterol due on 08/22/2024 Diabetic Foot Exam due on 01/07/2025 Annual PCP Team Chronic Disease Visit due on 04/09/2025 BP Controlled (<130/80) due on 04/09/2025 Colorectal Cancer Screening due on 09/12/2028 DTaP,Tdap,Td Vaccine(2 - Td or Tdap) due on 11/22/2028 Abdominal Aortic Aneurysm Screening Completed Hepatitis C Screening Completed Data reviewed Latest Ref Rng 12/05/2023 03/04/2024 06/26/2024 WBC 3.70 - 11.00 k/uL 9.89 RBC 4.20 - 6.00 m/uL 5.53 Hemoglobin 13.0 - 17.0 g/dL 17.4 (H) Hematocrit 39.0 - 51.0 % 55.4 (H) MCV 80.0 - 100.0 fL 100.2 (H) MCH 26.0 - 34.0 pg 31.5 MCHC 30.5 - 36.0 g/dL 31.4 RDW-CV 11.5 - 15.0 % 14.6 Platelet Count 150 - 400 k/uL 182 MPV 9.0 - 12.7 fL 11.2 Neut% % 60.7 Abs Neut (ANC) 1.45 - 7.50 k/uL 6.00 Lymph% % 25.3 Abs Lymph 1.00 - 4.00 k/uL 2.50 Geary% % 8.5 Abs Geary <0.87 k/uL 0.84 Eosin% % 3.9 Abs Eosin <0.46 k/uL 0.39 Baso% % 1.1 Abs Baso <0.11 k/uL 0.11 (H) Immature Gran % % 0.5 IMMATURE GRANS (ABS) <0.10 k/uL 0.05 NRBC /100 WBC 0.0 Absolute nRBC <0.01 k/uL <0.01 DTYPE Auto Protein, Total 6.3 - 8.0 g/dL 6.8 Albumin 3.9 - 4.9 g/dL 4.0 Calcium 8.5 - 10.2 mg/dL 9.2 Bilirubin, Total 0.2 - 1.3 mg/dL 0.6 Alkaline Phosphatase 38 - 113 U/L 62 AST 14 - 40 U/L 18 ALT 10 - 54 U/L 14 Glucose 74 - 99 mg/dL 163 (H) BUN 9 - 24 mg/dL 25 (H) Creatinine 0.73 - 1.22 mg/dL 1.35 (H) Sodium 136 - 144 mmol/L 141 Potassium 3.7 - 5.1 mmol/L 5.1 Chloride 98 - 107 mmol/L 100 CO2 22 - 30 mmol/L 26 Anion Gap 8 - 15 mmol/L 15 eGFR >=60 mL/min/1.73m 57 (L) Iron 41 - 186 ug/dL 62 TIBC 232 - 386 ug/dL 347 Transferrin Saturation 15.0 - 57.0 % 17.9 Hemoglobin A1C 4.3 - 5.6 % 7.4 (H) Estimated Average Glucose mg/dL 166 Vitamin B12 232 - 1,245 pg/mL 263 Zinc 60 - 120 ug/dL 68 Ferritin 30.3 - 565.7 ng/mL 22.0 (L) (C) Legend: (H) High (L) Low (C) Corrected Latest Ref Rng 07/03/2024 Occult Blood, Stool Negative Negative Latest Ref Rng 08/23/2023 Cholesterol, Total <200 mg/dL 135 Triglyceride <150 mg/dL 208 (H) HDL Cholesterol >39 mg/dL 35 (L) Non HDL Cholesterol <130 mg/dL 100 Fasting Time hrs 12 VLDL Cholesterol <30 mg/dL 42 (H) TC:HDL Ratio <5.10 3.86 LDL Cholesterol <100 mg/dL 58 LDL:HDL Ratio <2.54 1.66 Legend: (H) High (L) Low ASSESSMENT/PLAN: 1. Type 2 diabetes mellitus with peripheral neuropathy (HCC) - ICD9: 250.60, 357.2, ICD10: E11.42 (primary diagnosis) - Control undetermined, due for labs - Continue current medications - Statin prescribed - atorvastatin - Blood glucose monitoring on a twice daily schedule - Counseled on healthy diet and regular exercise - Discussed need for and benefit of weight loss. BMI 33.53 kg/(m^2) - Discussed diabetic education issues of diabetes complications and monitoring required, hypoglycemic/hyperglycemic symptoms, and medication-specific side effects and monitoring - Follow up in 6 months, sooner should any other issues arise. - HEMOGLOBIN A1C - COMPREHENSIVE METABOLIC PANEL 2. Sleep disturbance - ICD9: 780.50, ICD10: G47.9 Start trazodone. Discussed sleep hygiene. Call if symptoms not improving in 1-2 weeks. 3. Essential hypertension, benign - ICD9: 401.1, ICD10: I10 - Controlled - Continue current medications - Recommend home blood pressure monitoring, to bring results to next visit - Encouraged sodium restriction, DASH or Mediterranean diet - Recommend regular aerobic exercise 4. Hypercholesteremia - ICD9: 272.0, ICD10: E78.00 Controlled on current regimen. 5. Restless leg syndrome - ICD9: 333.94, ICD10: G25.81 Improved on gapapentin and Requip. 6. Skin lesion - ICD9: 709.9, ICD10: L98.9 Concerning lesion for SCC. F/u with dermatology for further evaluation. - CONSULT TO DERMATOLOGY 7. Productive cough - ICD9: 786.2, ICD10: R05.8 Cough x 3 weeks. Normal lung exam today. Suspect viral. Discussed OTC cough/cold medications PRN and supportive care. Call if not improving in 1-2 weeks. 8. Tobacco use disorder - ICD9: 305.1, ICD10: F17.200 - Cessation encouraged. - Physiologic and physical aspects of tobacco addiction as well as strategies for quitting were discussed. - Counseling was given focusing on the harmful effects of this addiction especially given the patient's medical condition(s) which will be worsened because of the chemicals in tobacco. 9. Encounter for immunization - ICD9: V03.89, ICD10: Z23 - PNEUMOCOCCAL VACCINE, 20 VALENT (PREVNAR 20) Tobi Sorto MD documented in this encounter [facility] 07-07-2024 Telephone encounter Note Pt returned call and given provider's message below with verbalized understanding. [facility] 07-07-2024 Miscellaneous Notes Pt returned call and given provider's message below with verbalized understanding. VM left for patient to return call to review FOBT results. Dolores Jama LPN ----- Message from Tobi Sorto MD sent at 07/07/2024 8:47 AM EDT ----- FOBT negative for blood in the stool. Continue iron supplement and recheck labs after 08/30 as previously ordered. Patient's iron stores are low. This was collected several months after his iron and TIBC level which was normal 3 months ago. Has he had any new bleeding or bruising symptoms? Recommend starting daily iron supplement and rechecking iron stores in about 2 months. Check FOBT now to rule out GI bleed. If agreeable, will send rx to requested pharmacy. documented in this encounter [facility] 07-07-2024 Telephone encounter Note VM left for patient to return call to review FOBT results. Dolores Jama LPN [facility] 07-07-2024 Telephone encounter Note ----- Message from Tobi Sorto MD sent at 07/07/2024 8:47 AM EDT ----- FOBT negative for blood in the stool. Continue iron supplement and recheck labs after 08/30 as previously ordered. [facility] 06-30-2024 Telephone encounter Note Patient's iron stores are low. This was collected several months after his iron and TIBC level which was normal 3 months ago. Has he had any new bleeding or bruising symptoms? Recommend starting daily iron supplement and rechecking iron stores in about 2 months. Check FOBT now to rule out GI bleed. If agreeable, will send rx to requested pharmacy. [facility] 06-09-2024 Note HNO ID: [id number] Author: RAO HILLMAN, ? Service: ? Author Type: Physician Type: Progress Notes Filed: 06/09/2024 08:54 Note Text: Last saw pcp: 04/09/2024 Subjective: Patient presents to clinic c/o painful toenails. They state that the nails are especially painful with shoe gear and pressure. Patient states that nails 1-5 b/l are painful. Patient reports to having multiple callus of b/l feet. He has concerns regarding the left hallux. He states he recently picked at this and it bled.Patient admits to being diabetic. Patient continues to smoke 1-2 cigarettes/week. No other pedal complaints at this time. Patient states no change in medications or medical history since last visit. Objective: Patient presents to clinic ambulating in diabetic shoes Vasc: DP and PT pulses are nonpalpable bilateral. CFT is less than 5 seconds bilateral. Skin temperature is warm to cool proximal to distal bilateral. There is no edema or varicosities noted. Neuro: Protective sensation is absent to the foot and toes when tested with the 5.07 SWM bilateral. Vibratory sensation is absent at the hallux IPJ bilateral. The hallux is downgoing bilateral. Derm: Nails 1-5 b/l are painful, discolored-yellow, thick, crumbly, dystrophic and with subungal debris. Skin is of normal turgor, texture and hair growth is absent bilateral. There are callus to right fifth metatarsal, right heel, left hallux, left 5th metatarsal. noulcerations, scars, verruca or other lesions noted. Ortho: Muscle strength is 5/5 for all pedal groups tested. Ankle joint DF is decreased with the knee extended with no pain or crepitus noted. 1st MPJ ROM is decreased bilateral. 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 Nails 1-5 bilateral were debrided in length and thickness small bleed to left fifth toe. Bandaide applied Callus reduced to right 5th metatarsal, right heel, left hallux and left 5th metatarsal with 15 blade. Continue with lotion and periodic filing with pumice stone. Discussed left hallux ipj arthroplasty as an option for ongoing callus. He had this on the right hallux and did well. He may consider but for now, wishes to continue with conservative care. . Patient was instructed on the continued importance of diabetic foot care along with proper diet and keeping their blood sugar under control to prevent complicationsI stressed the importance of avoiding barefoot walking, wearing good shoes and inspection of feet. I discussed how this patient suffers from neuropathy and that it is important that she monitor for any open wounds. If she develops any issues, she is to contact our office immediately and we will have them seen. Patient is to RTC in 3-4 months. Rao Hillman DPM [facility] 06-09-2024 History of Present illness Narrative Last saw pcp: 04/09/2024 Subjective: Patient presents to clinic c/o painful toenails. They state that the nails are especially painful with shoe gear and pressure. Patient states that nails 1-5 b/l are painful. Patient reports to having multiple callus of b/l feet. He has concerns regarding the left hallux. He states he recently picked at this and it bled.Patient admits to being diabetic. Patient continues to smoke 1-2 cigarettes/week. No other pedal complaints at this time. Patient states no change in medications or medical history since last visit. Objective: Patient presents to clinic ambulating in diabetic shoes Vasc: DP and PT pulses are nonpalpable bilateral. CFT is less than 5 seconds bilateral. Skin temperature is warm to cool proximal to distal bilateral. There is no edema or varicosities noted. Neuro: Protective sensation is absent to the foot and toes when tested with the 5.07 SWM bilateral. Vibratory sensation is absent at the hallux IPJ bilateral. The hallux is downgoing bilateral. Derm: Nails 1-5 b/l are painful, discolored-yellow, thick, crumbly, dystrophic and with subungal debris. Skin is of normal turgor, texture and hair growth is absent bilateral. There are callus to right fifth metatarsal, right heel, left hallux, left 5th metatarsal. noulcerations, scars, verruca or other lesions noted. Ortho: Muscle strength is 5/5 for all pedal groups tested. Ankle joint DF is decreased with the knee extended with no pain or crepitus noted. 1st MPJ ROM is decreased bilateral. 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 Nails 1-5 bilateral were debrided in length and thickness small bleed to left fifth toe. Bandaide applied Callus reduced to right 5th metatarsal, right heel, left hallux and left 5th metatarsal with 15 blade. Continue with lotion and periodic filing with pumice stone. Discussed left hallux ipj arthroplasty as an option for ongoing callus. He had this on the right hallux and did well. He may consider but for now, wishes to continue with conservative care. . Patient was instructed on the continued importance of diabetic foot care along with proper diet and keeping their blood sugar under control to prevent complicationsI stressed the importance of avoiding barefoot walking, wearing good shoes and inspection of feet. I discussed how this patient suffers from neuropathy and that it is important that she monitor for any open wounds. If she develops any issues, she is to contact our office immediately and we will have them seen. Patient is to RTC in 3-4 months. Rao Hillman DPM Patient presents with: Left Foot - Established Patient, Follow Up, Diabetic Foot Care Right Foot - Established Patient, Follow Up, Diabetic Foot Care Patient presents for 3 month follow up diabetic foot care. Patient has callus to left medial big toe. Also crack in the skin that has been there about 3 weeks, was an open would previously. [facility] 03/10/24 documented in this encounter [facility] 06-09-2024 Note HNO ID: [id number] Author: FERN AGUILAR RN Service: ? Author Type: Registered Nurse Type: Progress Notes Filed: 06/09/2024 08:54 Note Text: Patient presents with: Left Foot - Established Patient, Follow Up, Diabetic Foot Care Right Foot - Established Patient, Follow Up, Diabetic Foot Care Patient presents for 3 month follow up diabetic foot care. Patient has callus to left medial big toe. Also crack in the skin that has been there about 3 weeks, was an open would previously. SRUTHI 03/10/24 [facility] 06-04-2024 Telephone encounter Note PDMP website checked and validated. All prescriptions have been APPROPRIATELY filled. No suspicious activity was identified. 06/04/2024 by Tobi Sorto MD [facility] 06-04-2024 Miscellaneous Notes PDMP website checked and validated. All prescriptions have been APPROPRIATELY filled. No suspicious activity was identified. 06/04/2024 by Tobi Sorto MD Prescription Refill Information The patient has been identified by name and date of : Yes Caregiver verified no other encounters exist for this prescription request: Yes Caregiver confirmed with patient/requestor that no other refills are due, in the near future, with this provider at this time: Yes The last office visit in the department: Does the patient have a future office visit with this provider/department: Yes Patient requested this medication last week PSS placed a phone note rather than rx refill, please advise as patient is out of medication. Requested Prescriptions Pending Prescriptions Disp Refills gabapentin (NEURONTIN) 300 mg capsule 90 capsule 0 Sig: Take 3 capsules by mouth daily at bedtime for 30 days. Marilee Samuels June 03, 2024 2:38 PM documented in this encounter [facility] 06-03-2024 Telephone encounter Note Prescription Refill Information The patient has been identified by name and date of : Yes Caregiver verified no other encounters exist for this prescription request: Yes Caregiver confirmed with patient/requestor that no other refills are due, in the near future, with this provider at this time: Yes The last office visit in the department: Does the patient have a future office visit with this provider/department: Yes Patient requested this medication last week PSS placed a phone note rather than rx refill, please advise as patient is out of medication. Requested Prescriptions Pending Prescriptions Disp Refills gabapentin (NEURONTIN) 300 mg capsule 90 capsule 0 Sig: Take 3 capsules by mouth daily at bedtime for 30 days. Marilee Samuels June 03, 2024 2:38 PM [facility] 05-28-2024 Telephone encounter Note Patient called asking for a refill on gabapentin 300 mg capsules. [facility] 05-28-2024 Miscellaneous Notes Patient called asking for a refill on gabapentin 300 mg capsules. documented in this encounter [facility] 05-13-2024 Telephone encounter Note TC to patient who is notified medication sent to pharmacy. AALIYAH Blank [facility] 05-13-2024 Miscellaneous Notes TC to patient who is notified medication sent to pharmacy. AALIYAH Blank PDMP website checked and validated. All prescriptions have been APPROPRIATELY filled. No suspicious activity was identified. 05/13/2024 by Tobi Sorto MD Prescription Refill Information The patient has been identified by name and date of : Yes Caregiver verified no other encounters exist for this prescription request: Yes Caregiver confirmed with patient/requestor that no other refills are due, in the near future, with this provider at this time: Yes The last office visit in the department: 04/09/24 Does the patient have a future office visit with this provider/department: Yes Requested Prescriptions Pending Prescriptions Disp Refills gabapentin (NEURONTIN) 600 mg tablet 30 tablet 1 Sig: Take one tablet between 2-3 PM daily pramipexole (MIRAPEX) 0.25 mg tablet 71 tablet 0 Sig: Take 0.5 tablets by mouth daily at bedtime for 7 days, THEN 1 tablet daily at bedtime for 7 days, THEN 2 tablets daily at bedtime. Lily Brown May 13, 2024 10:15 AM documented in this encounter [facility] 05-13-2024 Telephone encounter Note PDMP website checked and validated. All prescriptions have been APPROPRIATELY filled. No suspicious activity was identified. 05/13/2024 by Tobi Sorto MD [facility] 05-13-2024 Telephone encounter Note Prescription Refill Information The patient has been identified by name and date of : Yes Caregiver verified no other encounters exist for this prescription request: Yes Caregiver confirmed with patient/requestor that no other refills are due, in the near future, with this provider at this time: Yes The last office visit in the department: 04/09/24 Does the patient have a future office visit with this provider/department: Yes Requested Prescriptions Pending Prescriptions Disp Refills gabapentin (NEURONTIN) 600 mg tablet 30 tablet 1 Sig: Take one tablet between 2-3 PM daily pramipexole (MIRAPEX) 0.25 mg tablet 71 tablet 0 Sig: Take 0.5 tablets by mouth daily at bedtime for 7 days, THEN 1 tablet daily at bedtime for 7 days, THEN 2 tablets daily at bedtime. Lily Brown May 13, 2024 10:15 AM [facility] 04-28-2024 Telephone encounter Note PDMP website checked and validated. All prescriptions have been APPROPRIATELY filled. No suspicious activity was identified. 04/28/2024 by Audrey Packer APRN.EDENILSON [facility] 04-28-2024 Miscellaneous Notes PDMP website checked and validated. All prescriptions have been APPROPRIATELY filled. No suspicious activity was identified. 04/28/2024 by Audrey Packer APRN.EDENILSON Patient requesting a 90 day supply. Vira Terry MA Prescription Refill Information The patient has been identified by name and date of : Yes Caregiver verified no other encounters exist for this prescription request: Yes Caregiver confirmed with patient/requestor that no other refills are due, in the near future, with this provider at this time: Yes The last office visit in the department: 04-09-24 Does the patient have a future office visit with this provider/department: Yes Requested Prescriptions Pending Prescriptions Disp Refills gabapentin (NEURONTIN) 300 mg capsule 90 capsule 0 Sig: Take 3 capsules by mouth daily at bedtime for 30 days. Jael Samuels April 28, 2024 11:16 AM documented in this encounter [facility] 04-28-2024 Telephone encounter Note Patient requesting a 90 day supply. Vira Terry MA [facility] 04-28-2024 Telephone encounter Note Prescription Refill Information The patient has been identified by name and date of : Yes Caregiver verified no other encounters exist for this prescription request: Yes Caregiver confirmed with patient/requestor that no other refills are due, in the near future, with this provider at this time: Yes The last office visit in the department: 04-09-24 Does the patient have a future office visit with this provider/department: Yes Requested Prescriptions Pending Prescriptions Disp Refills gabapentin (NEURONTIN) 300 mg capsule 90 capsule 0 Sig: Take 3 capsules by mouth daily at bedtime for 30 days. Jael Samuels April 28, 2024 11:16 AM [facility] 04-25-2024 Note Addended by: TOBI SORTO on: 04/25/2024 02:00 PM Modules accepted: Orders [facility] 04-25-2024 Telephone encounter Note Stopped at last OV. Given requip for RLS. Let us know if symptoms not improving. [facility] 04-25-2024 Miscellaneous Notes Addended by: TOBI SORTO on: 04/25/2024 02:00 PM Modules accepted: Orders Stopped at last OV. Given requip for RLS. Let us know if symptoms not improving. Patient has been identified by name and date of : Yes Patient phones for refill(s): tiZANidine (ZANAFLEX) 2 mg tablet (not in refill list) Date of last office visit in primary care: 04/09/2024 Date of next office visit in primary care: 07/08/2024 Please advise. Thank you. Audrey Bacon. documented in this encounter [facility] 04-25-2024 Telephone encounter Note Patient has been identified by name and date of : Yes Patient phones for refill(s): tiZANidine (ZANAFLEX) 2 mg tablet (not in refill list) Date of last office visit in primary care: 04/09/2024 Date of next office visit in primary care: 07/08/2024 Please advise. Thank you. Audrey Bacon. [facility] 04-09-2024 Note HNO ID: [id number] Author: TOBI SORTO MD Service: ? Author Type: Physician Type: Progress Notes Filed: 04/09/2024 11:11 Note Text: Chief Complaint Patient presents with: restless leg: Patient reports medication adjustment still having issues muscle spasms HPI Joshua Estes is a 68 year old male who presents here today for Above Complaints. Patient here today with complaint of bilateral leg cramping about 10-15 minutes after he goes to bed. Started more than 1 month ago. Feels like his whole legs start to cramp and needs to move. States that if he gets up and walks around his symptoms will improve, but it takes about 30-60 minutes. Gets rare episodes of leg cramping during the day. Drinking about 6-7 glasses of water per day. Patient had his gabapentin dosage increased at OV in March without improvement in symptoms. Also tried zanaflex without improvement. Compliant with 4 mg of requip qhs. Iron levels in March were normal. Denies cyanosis, cold extremities, leg swelling. Past medical history, appointments, medications, allergies reviewed. Previous Medical History PAST MEDICAL HISTORY Diagnosis Date Aneurysm (HCC) right common femoral artery. Dr. Ordoñez Colon polyps 08/2018 benign, repeat in 10 years Diabetes mellitus, type II (HCC) Diabetic ulcer of toe of right foot (HCC) DVT (deep venous thrombosis) (HCC) GERD (gastroesophageal reflux disease) Hyperlipidemia Hypertension Obesity PAC (premature atrial contraction) Peripheral arterial disease (HCC) Restless leg syndrome Snoring Tobacco use Previous Surgical History PAST SURGICAL HISTORY Procedure Laterality Date COLONOSCOPY FLX DX W/COLLJ SPEC WHEN PFRMD 09/12/2018 Colonoscopy IANDD ABSC; [facility] OR SGL Right 12/22/2015 Incision and drainage of right groin collection, debridement of full- thickness skin and soft tissue. 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 Family History FAMILY HISTORY Problem Relation Age of Onset other (liver cancer) Mother age 34 Cancer Father age 54 Diabetes Brother Alive age 68 Asthma Other Alive age 41 No Known Problems Maternal Grandmother No Known Problems Maternal Grandfather No Known Problems Paternal Grandmother No Known Problems Paternal Grandfather Patient Allergies ALLERGIES No Known Allergies Current Medications Current Outpatient Medications on File Prior to Visit Medication Sig gabapentin (NEURONTIN) 300 mg capsule Take 3 capsules by mouth daily at bedtime for 30 days. tiZANidine (ZANAFLEX) 2 mg tablet Take 1-2 tablets at bedtime as needed for muscle spasms fluticasone-salmeterol (ADVAIR) 500-50 mcg/dose dsdv INHALE 1 PUFF INSTRUCTED TWO TIMES A DAY metFORMIN (GLUCOPHAGE) 1,000 mg tablet Take 1 tablet by mouth two times a day with meals. . losartan (COZAAR) 100 mg tablet Take 1 tablet by mouth once daily. atorvastatin (LIPITOR) 40 mg tablet Take 1 tablet by mouth once daily. For cholesterol. hydroCHLOROthiazide 50 mg tablet Take 1 tablet by mouth once daily. glimepiride (AMARYL) 4 mg tablet Take 2 tablets by mouth daily with breakfast. montelukast (SINGULAIR) 10 mg tablet TAKE 1 TABLET BY MOUTH EVERYDAY AT BEDTIME empagliflozin (JARDIANCE) 25 mg tablet Take 1 tablet by mouth once daily. Take 1 tablet once daily in the morning albuterol HFA (VENTOLIN HFA) 90 mcg/actuation inhaler Inhale 2 Puffs as instructed every 4 hours as needed for wheezing/shortness of breath. blood sugar diagnostic (TRUE METRIX GLUCOSE TEST STRIP) test strip Test once daily DX: E11.42, E11.29 Blood Pressure Monitor (BLOOD PRESSURE KIT) 1 Each once daily. pentoxifylline ER (TRENTAL) 400 mg CR tablet Take 1 tablet by mouth three times daily with meals. Blood-Glucose Meter (TRUE METRIX AIR GLUCOSE METER) misc 1 Device twice daily. Lancets lancets Test once daily DX: E11.42. E11.29 insulin needles, DISPOSABLE, (BD INSULIN PEN NEEDLE UF) 31 gauge x 5/16 ndle 1 Each once daily. aspirin 81 mg chewable tablet Take 1 tablet by mouth once daily. gabapentin (NEURONTIN) 600 mg tablet Take one tablet between 2-3 PM daily rOPINIRole (REQUIP) 4 mg tablet Take 1 tablet by mouth daily at bedtime. Lactobacillus acidophilus (FLORAJEN ACIDOPHILUS) 20 billion cell capsule Take 1 capsule by mouth once daily. (Patient not taking: Reported on 07/23/2023) No current facility-administered medications on file prior to visit. Social History Social History Tobacco Use Smoking status: Every Day Current packs/day: 0.25 Average p (more content not included)... [facility] 04-09-2024 History of Present illness Narrative Chief Complaint Patient presents with: restless leg: Patient reports medication adjustment still having issues muscle spasms HPI Joshua Estes is a 68 year old male who presents here today for Above Complaints. Patient here today with complaint of bilateral leg cramping about 10-15 minutes after he goes to bed. Started more than 1 month ago. Feels like his whole legs start to cramp and needs to move. States that if he gets up and walks around his symptoms will improve, but it takes about 30-60 minutes. Gets rare episodes of leg cramping during the day. Drinking about 6-7 glasses of water per day. Patient had his gabapentin dosage increased at OV in March without improvement in symptoms. Also tried zanaflex without improvement. Compliant with 4 mg of requip qhs. Iron levels in March were normal. Denies cyanosis, cold extremities, leg swelling. Past medical history, appointments, medications, allergies reviewed. Previous Medical History PAST MEDICAL HISTORY Diagnosis Date Aneurysm (HCC) right common femoral artery. Dr. Ordoñez Colon polyps 08/2018 benign, repeat in 10 years Diabetes mellitus, type II (HCC) Diabetic ulcer of toe of right foot (HCC) DVT (deep venous thrombosis) (HCC) GERD (gastroesophageal reflux disease) Hyperlipidemia Hypertension Obesity PAC (premature atrial contraction) Peripheral arterial disease (HCC) Restless leg syndrome Snoring Tobacco use Previous Surgical History PAST SURGICAL HISTORY Procedure Laterality Date COLONOSCOPY FLX DX W/COLLJ SPEC WHEN PFRMD 09/12/2018 Colonoscopy I&D ABSC; [facility] OR SGL Right 12/22/2015 Incision and drainage of right groin collection, debridement of full- thickness skin and soft tissue. 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 Family History FAMILY HISTORY Problem Relation Age of Onset other (liver cancer) Mother age 34 Cancer Father age 54 Diabetes Brother Alive age 68 Asthma Other Alive age 41 No Known Problems Maternal Grandmother No Known Problems Maternal Grandfather No Known Problems Paternal Grandmother No Known Problems Paternal Grandfather Patient Allergies ALLERGIES No Known Allergies Current Medications Current Outpatient Medications on File Prior to Visit Medication Sig gabapentin (NEURONTIN) 300 mg capsule Take 3 capsules by mouth daily at bedtime for 30 days. tiZANidine (ZANAFLEX) 2 mg tablet Take 1-2 tablets at bedtime as needed for muscle spasms fluticasone-salmeterol (ADVAIR) 500-50 mcg/dose dsdv INHALE 1 PUFF INSTRUCTED TWO TIMES A DAY metFORMIN (GLUCOPHAGE) 1,000 mg tablet Take 1 tablet by mouth two times a day with meals. . losartan (COZAAR) 100 mg tablet Take 1 tablet by mouth once daily. atorvastatin (LIPITOR) 40 mg tablet Take 1 tablet by mouth once daily. For cholesterol. hydroCHLOROthiazide 50 mg tablet Take 1 tablet by mouth once daily. glimepiride (AMARYL) 4 mg tablet Take 2 tablets by mouth daily with breakfast. montelukast (SINGULAIR) 10 mg tablet TAKE 1 TABLET BY MOUTH EVERYDAY AT BEDTIME empagliflozin (JARDIANCE) 25 mg tablet Take 1 tablet by mouth once daily. Take 1 tablet once daily in the morning albuterol HFA (VENTOLIN HFA) 90 mcg/actuation inhaler Inhale 2 Puffs as instructed every 4 hours as needed for wheezing/shortness of breath. blood sugar diagnostic (TRUE METRIX GLUCOSE TEST STRIP) test strip Test once daily DX: E11.42, E11. Blood Pressure Monitor (BLOOD PRESSURE KIT) 1 Each once daily. pentoxifylline ER (TRENTAL) 400 mg CR tablet Take 1 tablet by mouth three times daily with meals. Blood-Glucose Meter (TRUE METRIX AIR GLUCOSE METER) misc 1 Device twice daily. Lancets lancets Test once daily DX: E11.42. E11.29 insulin needles, DISPOSABLE, (BD INSULIN PEN NEEDLE UF) 31 gauge x 5/16 ndle 1 Each once daily. aspirin 81 mg chewable tablet Take 1 tablet by mouth once daily. gabapentin (NEURONTIN) 600 mg tablet Take one tablet between 2-3 PM daily rOPINIRole (REQUIP) 4 mg tablet Take 1 tablet by mouth daily at bedtime. Lactobacillus acidophilus (FLORAJEN ACIDOPHILUS) 20 billion cell capsule Take 1 capsule by mouth once daily. (Patient not taking: Reported on 07/23/2023) No current facility-administered medications on file prior to visit. Social History Social History Tobacco Use Smoking status: Every Day Current packs/day: 0.25 Average packs/day: 0.3 packs/day for 46.0 years (11.5 ttl pk-yrs) Types: Cigarettes Passive exposure: Never Smokeless tobacco: Never Tobacco comments: Started to smoke again, 1/2 pack a week Vaping Use Vaping status: Never Used Substance Use Topics Alcohol use: No Drug use: No Review of Symptoms REVIEW OF SYSTEMS See HPI EXAM: BP 124/74 Pulse 72 Resp 18 Wt 111.1 kg (245 lb) SpO2 97% BMI 33.23 kg/m General Appearance: Well appearing, alert, in no acute distress, well-hydrated, well nourished.. Skin: Skin color, texture, turgor normal, no suspicious rashes or lesions. Extremities: No deformities, edema, skin discoloration, clubbing or cyanosis. Good capillary refill. . Health Maintenance List Depression Screening Never done Anxiety Screening Never done Shingrix Vaccine(1 of 2) Never done RSV Vaccine(1 - Risk 60-74 years 1-dose series) Never done Pneumococcal Vaccine: 50+(2 of 2 - PCV) due on 11/23/2019 Dilated Retinal Exam due on 08/10/2022 Advance Directive Discussion Never done Influenza Vaccine(1) due on 09/29/2024 Covid-19 Vaccine(1 - 2023- season) due on 01/07/2025 HbA1C due on 06/03/2024 Urine Albumin:Creatinine Ratio due on 08/22/2024 LDL Cholesterol due on 08/22/2024 Diabetic Foot Exam due on 01/07/2025 Annual PCP Team Chronic Disease Visit due on 03/04/2025 BP Controlled (<130/80) due on 03/04/2025 Colorectal Cancer Screening due on 09/12/2028 DTaP,Tdap,Td Vaccine(2 - Td or Tdap) due on 11/22/2028 Abdominal Aortic Aneurysm Screening Completed Hepatitis C Screening Completed Data reviewed Latest Ref Rng 12/05/2023 03/04/2024 WBC 3.70 - 11.00 k/uL 9.89 RBC 4.20 - 6.00 m/uL 5.53 Hemoglobin 13.0 - 17.0 g/dL 17.4 (H) Hematocrit 39.0 - 51.0 % 55.4 (H) MCV 80.0 - 100.0 fL 100.2 (H) MCH 26.0 - 34.0 pg 31.5 MCHC 30.5 - 36.0 g/dL 31.4 RDW-CV 11.5 - 15.0 % 14.6 Platelet Count 150 - 400 k/uL 182 MPV 9.0 - 12.7 fL 11.2 Neut% % 60.7 Abs Neut (ANC) 1.45 - 7.50 k/uL 6.00 Lymph% % 25.3 Abs Lymph 1.00 - 4.00 k/uL 2.50 Geary% % 8.5 Abs Geary <0.87 k/uL 0.84 Eosin% % 3.9 Abs Eosin <0.46 k/uL 0.39 Baso% % 1.1 Abs Baso <0.11 k/uL 0.11 (H) Immature Gran % % 0.5 IMMATURE GRANS (ABS) <0.10 k/uL 0.05 NRBC /100 WBC 0.0 Absolute nRBC <0.01 k/uL <0.01 DTYPE Auto Protein, Total 6.3 - 8.0 g/dL 6.8 Albumin 3.9 - 4.9 g/dL 4.0 Calcium 8.5 - 10.2 mg/dL 9.2 Bilirubin, Total 0.2 - 1.3 mg/dL 0.6 Alkaline Phosphatase 38 - 113 U/L 62 AST 14 - 40 U/L 18 ALT 10 - 54 U/L 14 Glucose 74 - 99 mg/dL 163 (H) BUN 9 - 24 mg/dL 25 (H) Creatinine 0.73 - 1.22 mg/dL 1.35 (H) Sodium 136 - 144 mmol/L 141 Potassium 3.7 - 5.1 mmol/L 5.1 Chloride 98 - 107 mmol/L 100 CO2 22 - 30 mmol/L 26 Anion Gap 8 - 15 mmol/L 15 eGFR >=60 mL/min/1.73m 57 (L) Iron 41 - 186 ug/dL 62 TIBC 232 - 386 ug/dL 347 Transferrin Saturation 15.0 - 57.0 % 17.9 Hemoglobin A1C 4.3 - 5.6 % 7.4 (H) Estimated Average Glucose mg/dL 166 Vitamin B12 232 - 1,245 pg/mL 263 Zinc 60 - 120 ug/dL 68 Legend: (H) High (L) Low ASSESSMENT/PLAN: 1. Restless leg syndrome - ICD9: 333.94, ICD10: G25.81 Suspect symptoms 2/2 uncontrolled RLS. Stop Requip and zanalfex. Start requip and taper dosage as ordered. Call with side effects or if symptoms improved on lower dosages. Let us know if no improvement after 1-2 weeks on higher dosage. Requesting refill on gabapentin today. PDMP website checked and validated. All prescriptions have been APPROPRIATELY filled. No suspicious activity was identified. 04/09/2024 by Tobi Sorto MD - GABAPENTIN 600 MG TABLET Tobi Sorto MD documented in this encounter [facility] 04-08-2024 Telephone encounter Note Patient calls and states that he continues to have bad muscle spasms in legs. Patient has been taking Gabapentin 600 mg in the afternoon and 900 mg Gabapentin at night. Patient also has been taking 2 tablets of tizanidine. Patient continues to have muscle spasms at night when he goes to bed. Patient has tried both ice and heat and both have not work. Patient scheduled with Dr. Sorto tomorrow morning to discuss next steps. Amanda Alcazar RN [facility] 04-08-2024 Miscellaneous Notes Patient calls and states that he continues to have bad muscle spasms in legs. Patient has been taking Gabapentin 600 mg in the afternoon and 900 mg Gabapentin at night. Patient also has been taking 2 tablets of tizanidine. Patient continues to have muscle spasms at night when he goes to bed. Patient has tried both ice and heat and both have not work. Patient scheduled with Dr. Sorto tomorrow morning to discuss next steps. Amanda Alcazar RN documented in this encounter [facility] 03-25-2024 Telephone encounter Note PDMP website checked and validated. All prescriptions have been APPROPRIATELY filled. No suspicious activity was identified. 03/25/2024 by Audrey Packer APRN.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 SPECIALIST [facility] 03-25-2024 Miscellaneous Notes PDMP website checked and validated. All prescriptions have been APPROPRIATELY filled. No suspicious activity was identified. 03/25/2024 by Audrey Packer APRN.EDENILSON The patient has been identified by name and date of : Yes Caregiver verified no other encounters exist for this prescription request: Yes Caregiver confirmed with patient/requestor that no other refills are due, in the near future, with this provider at this time: Yes The last office visit in the department: 03/04/2024 Does the patient have a future office visit with this provider/department: Yes 07/08/2024 Requested Prescriptions Pending Prescriptions Disp Refills gabapentin (NEURONTIN) 300 mg capsule 90 capsule 0 Sig: Take 3 capsules by mouth daily at bedtime for 30 days. tiZANidine (ZANAFLEX) 2 mg tablet 60 tablet 1 Sig: Take 1-2 tablets at bedtime as needed for muscle spasms Marilee Hernández RN documented in this encounter [facility] 03-25-2024 Telephone encounter Note The patient has been identified by name and date of : Yes Caregiver verified no other encounters exist for this prescription request: Yes Caregiver confirmed with patient/requestor that no other refills are due, in the near future, with this provider at this time: Yes The last office visit in the department: 03/04/2024 Does the patient have a future office visit with this provider/department: Yes 07/08/2024 Requested Prescriptions Pending Prescriptions Disp Refills gabapentin (NEURONTIN) 300 mg capsule 90 capsule 0 Sig: Take 3 capsules by mouth daily at bedtime for 30 days. tiZANidine (ZANAFLEX) 2 mg tablet 60 tablet 1 Sig: Take 1-2 tablets at bedtime as needed for muscle spasms Marilee Hernández RN [facility] 03-24-2024 Telephone encounter Note Patient's request for medication is as follows: Requested Prescriptions Pending Prescriptions Disp Refills fluticasone-salmeterol (ADVAIR) 500-50 mcg/dose dsdv [Pharmacy Med Name: FLUTICASONE-SALMETEROL 500-50] 60 Each 4 Sig: INHALE 1 PUFF INSTRUCTED TWO TIMES A DAY SRUTHI: 09/17/23 Please approve the above prescription(s) to electronically send to pharmacy. Karen Vera LPN [facility] 03-24-2024 Miscellaneous Notes Patient's request for medication is as follows: Requested Prescriptions Pending Prescriptions Disp Refills fluticasone-salmeterol (ADVAIR) 500-50 mcg/dose dsdv [Pharmacy Med Name: FLUTICASONE-SALMETEROL 500-50] 60 Each 4 Sig: INHALE 1 PUFF INSTRUCTED TWO TIMES A DAY SRUTHI: 09/17/23 Please approve the above prescription(s) to electronically send to pharmacy. Karen Vera LPN documented in this encounter [facility] 03-10-2024 History of Present illness Narrative Radiology Service Progress Note PATIENT NAME: Joshua Estes DATE OF SERVICE: March 10, 2024 TIME: 1:31 PM PATIENT IDENTITY VERIFICATION COMPLETED USING TWO (2) IDENTIFIERS: Name and Date of confirmed by patient verbally. FALL SCREENING: Has the patient had 2 falls in the last year or 1 fall with injury or currently using an Ambulatory Assistive Device (Walker, Cane, Wheelchair, Crutches, etc.)? Yes, Patient High Risk for Falls What interventions were put in place to prevent falls during this visit? Increased Observations by Caregivers PATIENT GENDER DATA: Male PATIENT RELEVANT IMPLANT DATA REVIEWED: Not Applicable PATIENT PRESENTS WITH AN IMPLANTABLE OR ATTACHED SUPERINTENDENT OIL WELL SERVICES: No RADIOLOGY DEPARTMENT: General X-ray: Exam(s) Completed: Lower Extremity X-Ray(s): Ankle, Right and Wt. Bearing PERIPHERAL IV DATA: Not applicable SIGNED BY: RT Val(Laurence) March 10, 2024 1:31 PM documented in this encounter [facility] 03-10-2024 Note HNO ID: [id number] Author: LILIANE LEWIS RT(R) Service: ? Author Type: Technologist Type: Progress Notes Filed: 03/10/2024 13:31 Note Text: Radiology Service Progress Note PATIENT NAME: Joshua Estes DATE OF SERVICE: March 10, 2024 TIME: 1:31 PM PATIENT IDENTITY VERIFICATION COMPLETED USING TWO (2) IDENTIFIERS: Name and Date of confirmed by patient verbally. FALL SCREENING: Has the patient had 2 falls in the last year or 1 fall with injury or currently using an Ambulatory Assistive Device (Walker, Cane, Wheelchair, Crutches, etc.)? Yes, Patient High Risk for Falls What interventions were put in place to prevent falls during this visit? Increased Observations by Caregivers PATIENT GENDER DATA: Male PATIENT RELEVANT IMPLANT DATA REVIEWED: Not Applicable PATIENT PRESENTS WITH AN IMPLANTABLE OR ATTACHED SUPERINTENDENT OIL WELL SERVICES: No RADIOLOGY DEPARTMENT: General X-ray: Exam(s) Completed: Lower Extremity X-Ray(s): Ankle, Right and Wt. Bearing PERIPHERAL IV DATA: Not applicable SIGNED BY: RT Val(Laurence) March 10, 2024 1:31 PM [facility] 03-10-2024 Note HNO ID: [id number] Author: RAO HILLMAN, ? Service: ? Author Type: Physician Type: Progress Notes Filed: 03/22/2024 07:40 Note Text: Last saw pcp: 03/04/24 Subjective: Patient presents to clinic c/o painful toenails. They state that the nails are especially painful with shoe gear and pressure. Patient states that nails 1-5 b/l are painful. Patient does report to having callus that causes pain. Also reports intermittent numbness in foot primarily along the medial ankle. Patient states the pain in right ankle comes and goes. Patient did recently see Dr. Jean and was informed that everything appears ok. No other pedal complaints at this time. Patient states no change in medications or medical history since last visit. Objective: Patient presents to clinic ambulating in diabetic shoe Vasc: DP and PT pulses are faintly palpable bilateral. CFT is less than 5 seconds bilateral. Skin temperature is warm to cool proximal to distal bilateral. There is no edema or varicosities noted. Neuro: Protective sensation is absent on the right foot. Vibratory sensation is decreased at the hallux IPJ bilateral. The hallux is downgoing bilateral. Derm: Nails 1-5 b/l are painful, discolored-yellow, thick, crumbly, dystrophic and with subungal debris. Skin is of normal turgor, texture and hair growth is absent bilateral. There are callus to left hallux and b/l 5th metatarsal. No ulcerations, scars, verruca or other lesions noted. Ortho: Muscle strength is 5/5 for all pedal groups tested. Ankle joint DF is full with the knee extended with no pain or crepitus noted. 1st MPJ ROM is decreased bilateral. Pain to palpation of right medial ankle Assessment: (B35.1) Onychomycosis (primary encounter diagnosis) (M79.675) Pain in toe of left foot (M79.674) Pain in toe of right foot (L84) Callus of foot (M25.571, G89.29) Chronic pain of right ankle (E11.42) Type 2 diabetes mellitus with peripheral neuropathy (HCC) Plan: Patient was seen and evaluated. Nails 1-5 bilateral were debrided in length and thickness. Callus reduced with dremmel and 15 blade to b/l 5th metatarsal head and left hallux. Continue with lotion and diabetic shoes Discussed right ankle pain. Favor more neurpoathy but will obtain xrays. Will call in topical pain cream to see if this will help patient. Will call in to [employer]. Patient was instructed on the continued importance of diabetic foot care along with proper diet and keeping their blood sugar under control to prevent complications. Stressed the importance of avoiding barefoot walking, wearing good shoes and inspection of feet. Patient is to RTC in 3-4 months. Rao Hillman DPM [facility] 03-10-2024 History of Present illness Narrative Last saw pcp: 03/04/24 Subjective: Patient presents to clinic c/o painful toenails. They state that the nails are especially painful with shoe gear and pressure. Patient states that nails 1-5 b/l are painful. Patient does report to having callus that causes pain. Also reports intermittent numbness in foot primarily along the medial ankle. Patient states the pain in right ankle comes and goes. Patient did recently see Dr. Jean and was informed that everything appears ok. No other pedal complaints at this time. Patient states no change in medications or medical history since last visit. Objective: Patient presents to clinic ambulating in diabetic shoe Vasc: DP and PT pulses are faintly palpable bilateral. CFT is less than 5 seconds bilateral. Skin temperature is warm to cool proximal to distal bilateral. There is no edema or varicosities noted. Neuro: Protective sensation is absent on the right foot. Vibratory sensation is decreased at the hallux IPJ bilateral. The hallux is downgoing bilateral. Derm: Nails 1-5 b/l are painful, discolored-yellow, thick, crumbly, dystrophic and with subungal debris. Skin is of normal turgor, texture and hair growth is absent bilateral. There are callus to left hallux and b/l 5th metatarsal. No ulcerations, scars, verruca or other lesions noted. Ortho: Muscle strength is 5/5 for all pedal groups tested. Ankle joint DF is full with the knee extended with no pain or crepitus noted. 1st MPJ ROM is decreased bilateral. Pain to palpation of right medial ankle Assessment: (E08.42) Diabetic polyneuropathy associated with diabetes mellitus due to underlying condition (HCC) (primary encounter diagnosis) (B35.1) Onychomycosis (M79.675) Pain in toe of left foot (M79.674) Pain in toe of right foot (L84) Callus of foot (M25.571, G89.29) Chronic pain of right ankle Plan: Patient was seen and evaluated. Nails 1-5 bilateral were debrided in length and thickness. Callus reduced with dremmel and 15 blade to b/l 5th metatarsal head and left hallux. Continue with lotion and diabetic shoes Discussed right ankle pain. Favor more neurpoathy but will obtain xrays. Will call in topical pain cream to see if this will help patient. Will call in to [employer]. Patient was instructed on the continued importance of diabetic foot care along with proper diet and keeping their blood sugar under control to prevent complications. Stressed the importance of avoiding barefoot walking, wearing good shoes and inspection of feet. Patient is to RTC in 3-4 months. Rao Hillman DPM AMB ROOMING INTAKE FLOWSHEET DATA Patient presents with: Left Foot - Established Patient, Follow Up, Diabetic Foot Care Right Foot - Established Patient, Follow Up, Diabetic Foot Care Bekah Flynn LPN documented in this encounter [facility] 03-10-2024 Note HNO ID: [id number] Author: BEKAH FLYNN LPN Service: ? Author Type: LICENSED NURSE Type: Progress Notes Filed: 03/10/2024 09:30 Note Text: AMB ROOMING INTAKE FLOWSHEET DATA Patient presents with: Left Foot - Established Patient, Follow Up, Diabetic Foot Care Right Foot - Established Patient, Follow Up, Diabetic Foot Care Bekah Flynn LPN [facility] 03-07-2024 Note HNO ID: [id number] Author: ?, ?, ? Service: ? Author Type: ? Type: Progress Notes Filed: 03/07/2024 18:10 Note Text: Date: March 07, 2024 Name: Joshua Estes Comments: HST was returned in working order with all sleep questionnaires. Invalid, study less than 1-2 hours total. Myc sent to repeat testing. Yousuf Milner [facility] 03-07-2024 Telephone encounter Note Phoned patient and reviewed message with him. Patient voiced understanding. Dolores Jama LPN [facility] 03-07-2024 Miscellaneous Notes Phoned patient and reviewed message with him. Patient voiced understanding. Dolores Jama LPN ----- Message from Audrey Packer APRN.EDENILSON sent at 03/07/2024 5:52 AM EST ----- Iron levels are fine. Audrey Packer APRN.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 SPECIALIST documented in this encounter [facility] 03-07-2024 Telephone encounter Note ----- Message from Audrey Packer APRN.EDENILSON sent at 03/07/2024 5:52 AM EST ----- Iron levels are fine. Audrey Packer APRN.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 SPECIALIST [facility] 03-04-2024 Instructions Audrey Packer APRN.CNP - 03/04/2024 9:54 AM EST Start B complex vitamin containing 30 mg of vitamin B6- take one tablet or capsule three times a day and may also take Vitamin E 800 units daily at bedtime documented in this encounter [facility] 03-04-2024 Note HNO ID: [id number] Author: PODAUDREY CROOK APRN.[facility] Service: ? Author Type: Nurse Practitioner Type: Progress Notes Filed: 03/04/2024 10:37 Note Text: 03/04/2024 Patient presents with: Follow Up: Restless legs continue SUBJECTIVE: This is a 68 year old that is here today for Above Complaints. Reports RLS symptoms still bothering him. Reports will go to bed and then get right back up. Reports they will tighten up and then release. Gabapentin was increased in December which seemed to help for a a few weeks. Warm shower seems to help some. Reports he did follow-up with his vascular doctor and told all good from their standpoint PAST MEDICAL HISTORY Diagnosis Date Aneurysm (HCC) right common femoral artery. Dr. Ordoñez Colon polyps 08/2018 benign, repeat in 10 years Diabetes mellitus, type II (HCC) Diabetic ulcer of toe of right foot (HCC) DVT (deep venous thrombosis) (HCC) GERD (gastroesophageal reflux disease) Hyperlipidemia Hypertension Obesity PAC (premature atrial contraction) Peripheral arterial disease (HCC) Restless leg syndrome Snoring Tobacco use ALLERGIES Patient has no known allergies. MEDICATIONS Current Outpatient Medications Medication Sig gabapentin (NEURONTIN) 400 mg capsule Take 1 capsule by mouth three times a day for 30 days. Take one capsule three times a day for 30 days metFORMIN (GLUCOPHAGE) 1,000 mg tablet Take 1 tablet by mouth two times a day with meals. . losartan (COZAAR) 100 mg tablet Take 1 tablet by mouth once daily. atorvastatin (LIPITOR) 40 mg tablet Take 1 tablet by mouth once daily. For cholesterol. hydroCHLOROthiazide 50 mg tablet Take 1 tablet by mouth once daily. glimepiride (AMARYL) 4 mg tablet Take 2 tablets by mouth daily with breakfast. montelukast (SINGULAIR) 10 mg tablet TAKE 1 TABLET BY MOUTH EVERYDAY AT BEDTIME tiZANidine (ZANAFLEX) 2 mg tablet Take 1-2 tablets at bedtime as needed for muscle spasms empagliflozin (JARDIANCE) 25 mg tablet Take 1 tablet by mouth once daily. Take 1 tablet once daily in the morning rOPINIRole (REQUIP) 4 mg tablet Take 1 tablet by mouth daily at bedtime. fluticasone-salmeterol (WIXELA INHUB) 500-50 mcg/dose dsdv Inhale 1 Puff as instructed two times a day. Please give the patient 1 inhaler with 4 refills. albuterol HFA (VENTOLIN HFA) 90 mcg/actuation inhaler Inhale 2 Puffs as instructed every 4 hours as needed for wheezing/shortness of breath. Lactobacillus acidophilus (FLORAJEN ACIDOPHILUS) 20 billion cell capsule Take 1 capsule by mouth once daily. (Patient not taking: Reported on 07/23/2023) blood sugar diagnostic (TRUE METRIX GLUCOSE TEST STRIP) test strip Test once daily DX: E11.42, E11.29 Blood Pressure Monitor (BLOOD PRESSURE KIT) 1 Each once daily. pentoxifylline ER (TRENTAL) 400 mg CR tablet Take 1 tablet by mouth three times daily with meals. Blood-Glucose Meter (TRUE METRIX AIR GLUCOSE METER) misc 1 Device twice daily. Lancets lancets Test once daily DX: E11.42. E11.29 insulin needles, DISPOSABLE, (BD INSULIN PEN NEEDLE UF) 31 gauge x 5/16 ndle 1 Each once daily. aspirin 81 mg chewable tablet Take 1 tablet by mouth once daily. No current facility-administered medications for this visit. Medications and allergies reviewed by this provider. SOCIAL HISTORY Social History Tobacco Use Smoking status: Every Day Current packs/day: 0.25 Average packs/day: 0.3 packs/day for 46.0 years (11.5 ttl pk-yrs) Types: Cigarettes Passive exposure: Never Smokeless tobacco: Never Tobacco comments: Started to smoke again, 1/2 pack a week Vaping Use Vaping status: Never Used Substance Use Topics Alcohol use: No Drug use: No REVIEW OF SYSTEMS All other reviewed and negative other than HPI. OBJECTIVE: BP 122/78 Pulse 70 Resp 18 Wt 110.1 kg (242 lb 11.6 oz) SpO2 95% BMI 32.92 kg/m? . Vital signs reviewed by this provider. APPEARANCE Well appearing, alert, in no acute distress, well-hydrated, well nourished. Depression Screening Never done Anxiety Screening Never done Shingrix Vaccine(1 of 2) Never done RSV Vaccine(1 - Risk 60-74 years 1-dose series) Never done Pneumococcal Vaccine: 65+(2 of 2 - PCV) due on 11/23/2019 BP Controlled (<130/80) due on 07/04/2022 Dilated Retinal Exam due on 08/10/2022 Advance Directive Discussion Never done Influenza Vaccine(1) due on 09/29/2024 Covid-19 Vaccine( season) due on 01/07/2025 HbA1C due on 06/03/2024 Urine Albumin:Creatinine Ratio due on 08/22/2024 LDL Cholesterol due on 08/22/2024 Diabetic Foot Exam due on 01/07/2025 Annual PCP Team Chronic Disease Visit due on 01/07/2025 Colorectal Cancer Screening due on 09/12/2028 DTaP,Tdap,Td Vaccine(2 - Td or Tdap) due on 11/22/2028 Abdominal Aortic Aneurysm Screening Completed Hepatitis C Screening Completed Latest Ref Rng 12/05/2023 WBC 3.70 - 11.00 k/uL 9.89 RBC 4.20 - 6.00 m/uL 5.53 Hemoglobin 13.0 - 17.0 g/dL 17.4 (H) Hem (more content not included)... [facility] 03-04-2024 History of Present illness Narrative 03/04/2024 Patient presents with: Follow Up: Restless legs continue SUBJECTIVE: This is a 68 year old that is here today for Above Complaints. Reports RLS symptoms still bothering him. Reports will go to bed and then get right back up. Reports they will tighten up and then release. Gabapentin was increased in December which seemed to help for a a few weeks. Warm shower seems to help some. Reports he did follow-up with his vascular doctor and told all good from their standpoint PAST MEDICAL HISTORY Diagnosis Date Aneurysm (HCC) right common femoral artery. Dr. Ordoñez Colon polyps 08/2018 benign, repeat in 10 years Diabetes mellitus, type II (HCC) Diabetic ulcer of toe of right foot (HCC) DVT (deep venous thrombosis) (HCC) GERD (gastroesophageal reflux disease) Hyperlipidemia Hypertension Obesity PAC (premature atrial contraction) Peripheral arterial disease (HCC) Restless leg syndrome Snoring Tobacco use ALLERGIES Patient has no known allergies. MEDICATIONS Current Outpatient Medications Medication Sig gabapentin (NEURONTIN) 400 mg capsule Take 1 capsule by mouth three times a day for 30 days. Take one capsule three times a day for 30 days metFORMIN (GLUCOPHAGE) 1,000 mg tablet Take 1 tablet by mouth two times a day with meals. . losartan (COZAAR) 100 mg tablet Take 1 tablet by mouth once daily. atorvastatin (LIPITOR) 40 mg tablet Take 1 tablet by mouth once daily. For cholesterol. hydroCHLOROthiazide 50 mg tablet Take 1 tablet by mouth once daily. glimepiride (AMARYL) 4 mg tablet Take 2 tablets by mouth daily with breakfast. montelukast (SINGULAIR) 10 mg tablet TAKE 1 TABLET BY MOUTH EVERYDAY AT BEDTIME tiZANidine (ZANAFLEX) 2 mg tablet Take 1-2 tablets at bedtime as needed for muscle spasms empagliflozin (JARDIANCE) 25 mg tablet Take 1 tablet by mouth once daily. Take 1 tablet once daily in the morning rOPINIRole (REQUIP) 4 mg tablet Take 1 tablet by mouth daily at bedtime. fluticasone-salmeterol (WIXELA INHUB) 500-50 mcg/dose dsdv Inhale 1 Puff as instructed two times a day. Please give the patient 1 inhaler with 4 refills. albuterol HFA (VENTOLIN HFA) 90 mcg/actuation inhaler Inhale 2 Puffs as instructed every 4 hours as needed for wheezing/shortness of breath. Lactobacillus acidophilus (FLORAJEN ACIDOPHILUS) 20 billion cell capsule Take 1 capsule by mouth once daily. (Patient not taking: Reported on 07/23/2023) blood sugar diagnostic (TRUE METRIX GLUCOSE TEST STRIP) test strip Test once daily DX: E11.42, E11.29 Blood Pressure Monitor (BLOOD PRESSURE KIT) 1 Each once daily. pentoxifylline ER (TRENTAL) 400 mg CR tablet Take 1 tablet by mouth three times daily with meals. Blood-Glucose Meter (TRUE METRIX AIR GLUCOSE METER) misc 1 Device twice daily. Lancets lancets Test once daily DX: E11.42. E11.29 insulin needles, DISPOSABLE, (BD INSULIN PEN NEEDLE UF) 31 gauge x 5/16 ndle 1 Each once daily. aspirin 81 mg chewable tablet Take 1 tablet by mouth once daily. No current facility-administered medications for this visit. Medications and allergies reviewed by this provider. SOCIAL HISTORY Social History Tobacco Use Smoking status: Every Day Current packs/day: 0.25 Average packs/day: 0.3 packs/day for 46.0 years (11.5 ttl pk-yrs) Types: Cigarettes Passive exposure: Never Smokeless tobacco: Never Tobacco comments: Started to smoke again, 1/2 pack a week Vaping Use Vaping status: Never Used Substance Use Topics Alcohol use: No Drug use: No REVIEW OF SYSTEMS All other reviewed and negative other than HPI. OBJECTIVE: BP 122/78 Pulse 70 Resp 18 Wt 110.1 kg (242 lb 11.6 oz) SpO2 95% BMI 32.92 kg/m . Vital signs reviewed by this provider. APPEARANCE Well appearing, alert, in no acute distress, well-hydrated, well nourished. Depression Screening Never done Anxiety Screening Never done Shingrix Vaccine(1 of 2) Never done RSV Vaccine(1 - Risk 60-74 years 1-dose series) Never done Pneumococcal Vaccine: 65+(2 of 2 - PCV) due on 11/23/2019 BP Controlled (<130/80) due on 07/04/2022 Dilated Retinal Exam due on 08/10/2022 Advance Directive Discussion Never done Influenza Vaccine(1) due on 09/29/2024 Covid-19 Vaccine( - season) due on 01/07/2025 HbA1C due on 06/03/2024 Urine Albumin:Creatinine Ratio due on 08/22/2024 LDL Cholesterol due on 08/22/2024 Diabetic Foot Exam due on 01/07/2025 Annual PCP Team Chronic Disease Visit due on 01/07/2025 Colorectal Cancer Screening due on 09/12/2028 DTaP,Tdap,Td Vaccine(2 - Td or Tdap) due on 11/22/2028 Abdominal Aortic Aneurysm Screening Completed Hepatitis C Screening Completed Latest Ref Rng 12/05/2023 WBC 3.70 - 11.00 k/uL 9.89 RBC 4.20 - 6.00 m/uL 5.53 Hemoglobin 13.0 - 17.0 g/dL 17.4 (H) Hematocrit 39.0 - 51.0 % 55.4 (H) MCV 80.0 - 100.0 fL 100.2 (H) MCH 26.0 - 34.0 pg 31.5 MCHC 30.5 - 36.0 g/dL 31.4 RDW-CV 11.5 - 15.0 % 14.6 Platelet Count 150 - 400 k/uL 182 MPV 9.0 - 12.7 fL 11.2 Neut% % 60.7 Abs Neut (ANC) 1.45 - 7.50 k/uL 6.00 Lymph% % 25.3 Abs Lymph 1.00 - 4.00 k/uL 2.50 Geary% % 8.5 Abs Geary <0.87 k/uL 0.84 Eosin% % 3.9 Abs Eosin <0.46 k/uL 0.39 Baso% % 1.1 Abs Baso <0.11 k/uL 0.11 (H) Immature Gran % % 0.5 IMMATURE GRANS (ABS) <0.10 k/uL 0.05 NRBC /100 WBC 0.0 Absolute nRBC <0.01 k/uL <0.01 DTYPE Auto Protein, Total 6.3 - 8.0 g/dL 6.8 Albumin 3.9 - 4.9 g/dL 4.0 Calcium 8.5 - 10.2 mg/dL 9.2 Bilirubin, Total 0.2 - 1.3 mg/dL 0.6 Alkaline Phosphatase 38 - 113 U/L 62 AST 14 - 40 U/L 18 ALT 10 - 54 U/L 14 Glucose 74 - 99 mg/dL 163 (H) BUN 9 - 24 mg/dL 25 (H) Creatinine 0.73 - 1.22 mg/dL 1.35 (H) Sodium 136 - 144 mmol/L 141 Potassium 3.7 - 5.1 mmol/L 5.1 Chloride 98 - 107 mmol/L 100 CO2 22 - 30 mmol/L 26 Anion Gap 8 - 15 mmol/L 15 eGFR >=60 mL/min/1.73m 57 (L) Hemoglobin A1C 4.3 - 5.6 % 7.4 (H) Estimated Average Glucose mg/dL 166 Vitamin B12 232 - 1,245 pg/mL 263 Zinc 60 - 120 ug/dL 68 Legend: (H) High (L) Low ASSESSMENT/PLAN: 1. Restless leg syndrome - ICD9: 333.94, ICD10: G25.81 - will adjust and increase gabapentin to take twice a day - can also try vitamin B12 complex vitamin and vitamin E as possible component of muscle cramps - IRON AND TIBC - FERRITIN - GABAPENTIN 600 MG TABLET - GABAPENTIN 300 MG CAPSULE PDMP website checked and validated. All prescriptions have been APPROPRIATELY filled. No suspicious activity was identified. 03/04/2024 by Audrey Packer APRN.CNP - update me in one month to let me know if improving Audrey Packer APRN.CNP Prescription instructions reviewed with patient as applicable. Patient advised if symptoms do not improve or if symptoms worsen sooner, to contact their primary care physician. Potential red flag symptoms discussed with the patient. Reviewed appropriate action plan to take if red flag symptoms occur. Patient agreeable to treatment plan. Medical Decision Making: Problems: Moderate: 1+ chronic illnesses with change Data: Unique test(s) ordered: 2 Risk: Moderate: Drug management Medical Decision Making Level: 4 - Moderate documented in this encounter [facility] 03-03-2024 Note HNO ID: [id number] Author: ?, ?, ? Service: ? Author Type: ? Type: Progress Notes Filed: 03/03/2024 16:19 Note Text: Called and spoke with patient. Patient stated package nick out today 03/03 via [employer]. Typed tracking in to [employer] and was not able tto gather info; recevied error message [facility] 03-03-2024 Telephone encounter Note PDMP website checked and validated. All prescriptions have been APPROPRIATELY filled. No suspicious activity was identified. 03/03/2024 by Audrey Packer APRN.CNP [facility] 03-03-2024 Miscellaneous Notes PDMP website checked and validated. All prescriptions have been APPROPRIATELY filled. No suspicious activity was identified. 03/03/2024 by Audrey Packer APRN.CNP Prescription Refill Information The patient has been identified by name and date of : Yes Caregiver verified no other encounters exist for this prescription request: Yes Caregiver confirmed with patient/requestor that no other refills are due, in the near future, with this provider at this time: Yes The last office visit in the department: 01/08/2024 Does the patient have a future office visit with this provider/department: Yes Requested Prescriptions Pending Prescriptions Disp Refills gabapentin (NEURONTIN) 400 mg capsule 90 capsule 0 Sig: Take 1 capsule by mouth three times a day for 30 days. Take one capsule three times a day for 30 days Vijaya Razo March 03, 2024 9:06 AM documented in this encounter [facility] 03-03-2024 Telephone encounter Note Prescription Refill Information The patient has been identified by name and date of : Yes Caregiver verified no other encounters exist for this prescription request: Yes Caregiver confirmed with patient/requestor that no other refills are due, in the near future, with this provider at this time: Yes The last office visit in the department: 01/08/2024 Does the patient have a future office visit with this provider/department: Yes Requested Prescriptions Pending Prescriptions Disp Refills gabapentin (NEURONTIN) 400 mg capsule 90 capsule 0 Sig: Take 1 capsule by mouth three times a day for 30 days. Take one capsule three times a day for 30 days Vijaya Razo March 03, 2024 9:06 AM [facility] 02-26-2024 Note HNO ID: [id number] Author: ?, ?, ? Service: ? Author Type: ? Type: Progress Notes Filed: 02/26/2024 16:58 Note Text: Nom[facility] # [id number], date shipped out 02-26-24 [employer] only Tracking mailout:[id number] Tracking return: [id number] [facility] 02-26-2024 Telephone encounter Note Spoke with pt and informed him our records show a valid rx at the pharmacy. Therese Lacy LPN [facility] 02-26-2024 Miscellaneous Notes Spoke with pt and informed him our records show a valid rx at the pharmacy. Therese Lacy LPN Patient has been identified by name and date of : Yes Patient phones for refill(s): Requested Prescriptions Pending Prescriptions Disp Refills tiZANidine (ZANAFLEX) 2 mg tablet 60 tablet 1 Sig: Take 1-2 tablets at bedtime as needed for muscle spasms Date of last office visit in primary care: 01/08/2024 Date of next office visit in primary care: 07/08/2024 Please advise. Thank you. Audrey Bacon. documented in this encounter [facility] 02-26-2024 Telephone encounter Note Patient has been identified by name and date of : Yes Patient phones for refill(s): Requested Prescriptions Pending Prescriptions Disp Refills tiZANidine (ZANAFLEX) 2 mg tablet 60 tablet 1 Sig: Take 1-2 tablets at bedtime as needed for muscle spasms Date of last office visit in primary care: 01/08/2024 Date of next office visit in primary care: 07/08/2024 Please advise. Thank you. Audrey Bacon. [facility] 02-22-2024 Note HNO ID: [id number] Author: KIM YATES MD Service: ? Author Type: Physician Type: Progress Notes Filed: 02/22/2024 10:23 Note Text: February 22, 2024 Standing PSG Orders signed in the last 90 days None Future PSG Orders signed in the last 90 days Ordered Auth. provider HOME SLEEP APNEA TEST (HSAT) [[id number]] 02/13/24 PodAudrey crook APRN.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 SPECIALIST Assoc. diagnoses: Daytime somnolence [R40.0], Snoring [R06.83] Q: Indications: A: Obstructive sleep apnea Q: STOP-BANG conditions - Select All That Apply: A: GENDER = male A2: AGE > 50 A3: high blood PRESSURE A4: SNORING that is loud or disruptive A5: TIREDNESS, fatigue or sleepiness during the day Q: Current use of supplemental oxygen during sleep period?: A: No All Prior Sleep Studies (past 365 days) 02/13/2024 16:46 Sleep Studies HOME SLEEP APNEA TEST (HSAT) HOME SLEEP APNEA TEST (HSAT) Order Status: Ordered, Future Expires: 02/12/25 BMI Readings from Last 2 Encounters: 02/06/24 : 32.74 kg/m? 01/08/24 : 32.59 kg/m? PAST MEDICAL HISTORY Diagnosis Date Aneurysm (HCC) right common femoral artery. Dr. Ordoñez Colon polyps 08/2018 benign, repeat in 10 years Diabetes mellitus, type II (HCC) Diabetic ulcer of toe of right foot (HCC) DVT (deep venous thrombosis) (HCC) GERD (gastroesophageal reflux disease) Hyperlipidemia Hypertension Obesity PAC (premature atrial contraction) Peripheral arterial disease (HCC) Restless leg syndrome Snoring Tobacco use The medical record was reviewed to determine if the proposed sleep study conforms to the AASM Practice Parameters for the Indications for Polysomnography and Related Procedures, or if the sleep study is indicated for other reasons. Indications for study: JOSE suspected without comorbid medical or sleep disorders Sleep study to be performed: Home Sleep Apnea Test (HSAT) Special instructions: None-follow laboratory protocol [facility] Staff Note: I have read the above protocol, edited as needed, and agree to the plan. Kim Yates MD 10:23 AM, 02/22/2024 [facility] 02-22-2024 History of Present illness Narrative February 22, 2024 Standing PSG Orders signed in the last 90 days None Future PSG Orders signed in the last 90 days Ordered Auth. provider HOME SLEEP APNEA TEST (HSAT) [[id number]] 02/13/24 PodAudrey crook APRN.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 SPECIALIST Assoc. diagnoses: Daytime somnolence [R40.0], Snoring [R06.83] Q: Indications: A: Obstructive sleep apnea Q: STOP-BANG conditions - Select All That Apply: A: GENDER = male A2: AGE > 50 A3: high blood PRESSURE A4: SNORING that is loud or disruptive A5: TIREDNESS, fatigue or sleepiness during the day Q: Current use of supplemental oxygen during sleep period?: A: No All Prior Sleep Studies (past 365 days) 02/13/2024 16:46 Sleep Studies HOME SLEEP APNEA TEST (HSAT) HOME SLEEP APNEA TEST (HSAT) Order Status: Ordered, Future Expires: 02/12/25 BMI Readings from Last 2 Encounters: 02/06/24 : 32.74 kg/m 01/08/24 : 32.59 kg/m PAST MEDICAL HISTORY Diagnosis Date Aneurysm (HCC) right common femoral artery. Dr. Ordoñez Colon polyps 08/2018 benign, repeat in 10 years Diabetes mellitus, type II (HCC) Diabetic ulcer of toe of right foot (HCC) DVT (deep venous thrombosis) (HCC) GERD (gastroesophageal reflux disease) Hyperlipidemia Hypertension Obesity PAC (premature atrial contraction) Peripheral arterial disease (HCC) Restless leg syndrome Snoring Tobacco use The medical record was reviewed to determine if the proposed sleep study conforms to the AASM Practice Parameters for the Indications for Polysomnography and Related Procedures, or if the sleep study is indicated for other reasons. Indications for study: JOSE suspected without comorbid medical or sleep disorders Sleep study to be performed: Home Sleep Apnea Test (HSAT) Special instructions: None-follow laboratory protocol [facility] Staff Note: I have read the above protocol, edited as needed, and agree to the plan. Kim Yates MD 10:23 AM, 02/22/2024 February 21, 2024 An order has been received for Home Sleep Apnea Test (HSAT) from Audrey Shanks a B. [facility] Staff. Visit prep complete. Comments :No The sleep study is scheduled for 02/29/24. Insurance: Payor: [employer] MEDICARE / Plan: [employer] HMO / Product Type: HMO / Payer/Plan Subscr Sex Relation Sub. Ins. ID Effective Group Num 1. DEVOTED MEDIC* JOSHUA ESTES 1955 Male Self [id number] [birth year] [address] Davina Montemayor documented in this encounter [facility] 02-21-2024 Note HNO ID: [id number] Author: ?, ?, ? Service: ? Author Type: ? Type: Progress Notes Filed: 02/22/2024 10:23 Note Text: February 21, 2024 An order has been received for Home Sleep Apnea Test (HSAT) from Audrey Shanks a B[facility] Staff. Visit prep complete. Comments :No The sleep study is scheduled for 02/29/24. Insurance: Payor: DEVOTED MEDICARE / Plan: [employer] HMO / Product Type: HMO / Payer/Plan Subscr Sex Relation Sub. Ins. ID Effective Group Num 1. DEVOTED MEDICJOSHUA ZAMUDIO 1955 Male Self [id number] [birth year] [address] Davina Montemayor [facility] 02-20-2024 Telephone encounter Note Phoned patient and updated him order placed and gave him the toll free number for the HSAT. He voiced understanding and reports he will call and get it set up. Dolores Jama LPN [facility] 02-20-2024 Miscellaneous Notes Phoned patient and updated him order placed and gave him the toll free number for the HSAT. He voiced understanding and reports he will call and get it set up. Dolores Jama LPN [place] message sent to pt notifying him we've attempted to reach him by phone with message left on for a return call to office. Asked pt to contact office and speak with FM Triage Nurse. Notify pt of message below from Provider. Janice Caballero MA Telephone call placed to patient to make aware, message left to call office back for update. Marleny Raygoza LPN Patient would like home sleep study ordered. Endorses daytime fatigue and lod snoring. Reports waking up at night feeling like he can not get air in. Order placed. Please let patient know Pt states he definitely has daytime fatigue & loud snoring. To his knowledge he has not had any witnessed episodes of apnea. Pt states he wakes up every 2 hrs every single night. Occasionally he wakes with anxiety, states he feels like he can't get air in. After he calms down he is usually able to fall back asleep. Dolores Sawyer LPN Left vm for patient to return call to nurse for provider's message. Sorry I don't see where I documented we talked about this. Does he have daytime fatigue or told he has loud snoring or witnessed episodes of apnea? Audrey Packer APRN.EDENILSON Patient reported he had discussed sleep study with Audrey but did not want to complete one initially. Patient now requesting at home sleep study. Dolores Jama LPN documented in this encounter [facility] 02-20-2024 Telephone encounter Note Patient has been identified by name and date of : Yes, Patient phones for refill(s): Requested Prescriptions Pending Prescriptions Disp Refills metFORMIN (GLUCOPHAGE) 1,000 mg tablet 180 tablet 1 Sig: Take 1 tablet by mouth two times a day with meals. . losartan (COZAAR) 100 mg tablet 90 tablet 1 Sig: Take 1 tablet by mouth once daily. atorvastatin (LIPITOR) 40 mg tablet 90 tablet 1 Sig: Take 1 tablet by mouth once daily. For cholesterol. hydroCHLOROthiazide 50 mg tablet 90 tablet 1 Sig: Take 1 tablet by mouth once daily. glimepiride (AMARYL) 4 mg tablet 180 tablet 1 Sig: Take 2 tablets by mouth daily with breakfast. Date of last office visit in primary care: 01/08/2024 Date of next office visit in primary care: 07/08/2024 Please advise. Thank you. Audrey Bacon. [facility] 02-20-2024 Miscellaneous Notes Patient has been identified by name and date of : Yes, Patient phones for refill(s): Requested Prescriptions Pending Prescriptions Disp Refills metFORMIN (GLUCOPHAGE) 1,000 mg tablet 180 tablet 1 Sig: Take 1 tablet by mouth two times a day with meals. . losartan (COZAAR) 100 mg tablet 90 tablet 1 Sig: Take 1 tablet by mouth once daily. atorvastatin (LIPITOR) 40 mg tablet 90 tablet 1 Sig: Take 1 tablet by mouth once daily. For cholesterol. hydroCHLOROthiazide 50 mg tablet 90 tablet 1 Sig: Take 1 tablet by mouth once daily. glimepiride (AMARYL) 4 mg tablet 180 tablet 1 Sig: Take 2 tablets by mouth daily with breakfast. Date of last office visit in primary care: 01/08/2024 Date of next office visit in primary care: 07/08/2024 Please advise. Thank you. Audrey Bacon. documented in this encounter [facility] 02-19-2024 Telephone encounter Note Mychart message sent to pt notifying him we've attempted to reach him by phone with message left on VM for a return call to office. Asked pt to contact office and speak with Triage Nurse. Notify pt of message below from Provider. Janice Caballero MA [facility] 02-13-2024 Telephone encounter Note Telephone call placed to patient to make aware, message left to call office back for update. Marleny Raygoza LPN [facility] 02-13-2024 Telephone encounter Note Patient would like home sleep study ordered. Endorses daytime fatigue and lod snoring. Reports waking up at night feeling like he can not get air in. Order placed. Please let patient know [facility] 02-13-2024 Telephone encounter Note Pt states he definitely has daytime fatigue & loud snoring. To his knowledge he has not had any witnessed episodes of apnea. Pt states he wakes up every 2 hrs every single night. Occasionally he wakes with anxiety, states he feels like he can't get air in. After he calms down he is usually able to fall back asleep. Dolores Sawyer LPN [facility] 02-13-2024 Telephone encounter Note Left vm for patient to return call to nurse for provider's message. [facility] 02-12-2024 Telephone encounter Note Sorry I don't see where I documented we talked about this. Does he have daytime fatigue or told he has loud snoring or witnessed episodes of apnea? Audrey Packer APRN.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 SPECIALIST [facility] 02-12-2024 Telephone encounter Note Patient reported he had discussed sleep study with Audrey but did not want to complete one initially. Patient now requesting at home sleep study. Dolores Jama LPN [facility] 02-07-2024 Telephone encounter Note Pt is requesting refills on the following medication. Please file if appropriate. [facility] 02-07-2024 Miscellaneous Notes Pt is requesting refills on the following medication. Please file if appropriate. documented in this encounter [facility] 02-06-2024 Note HNO ID: [id number] Author: ROLANDO JEAN MD Service: ? Author Type: Physician Type: Progress Notes Filed: 02/06/2024 16:06 Note Text: [facility] [place] DEPARTMENT OF VASCULAR SURGERY OUTPATIENT VISIT DATE February 06, 2024 OUTPATIENT VISIT TYPE CONSULTATION SERVICE DATE: 02/06/2024 SERVICE TIME: 1:26 PM PRIMARY CARE PHYSICIAN: Tobi Sorto MD REFERRING PROVIDER: Self-referred CHIEF COMPLAINT: Right ankle pain for the past year HISTORY OF PRESENT ILLNESS: Vascular consultation at the request of Dr. Kumar. A copy of this consultation note will be provided to the requesting physician by way of shared Medical record or letter to requesting physician via [place] mail. Mr. Estes is a 68 year old male who is seen today for presents with 1 he year history of right ankle pain. Present at all times and painful to touch. He has been seen by his local paste up worker. He denies any claudication symptoms or foot pain. PAST MEDICAL HISTORY Diagnosis Date Aneurysm (HCC) right common femoral artery. Dr. Ordoñez Colon polyps 08/2018 benign, repeat in 10 years Diabetes mellitus, type II (HCC) Diabetic ulcer of toe of right foot (HCC) DVT (deep venous thrombosis) (HCC) GERD (gastroesophageal reflux disease) Hyperlipidemia Hypertension Obesity PAC (premature atrial contraction) Peripheral arterial disease (HCC) Restless leg syndrome Snoring Tobacco use PAST SURGICAL HISTORY Procedure Laterality Date COLONOSCOPY FLX DX W/COLLJ SPEC WHEN PFRMD 09/12/2018 Colonoscopy IANDD ABSC; SMPL OR SGL Right 12/22/2015 Incision and drainage of right groin collection, debridement of full- thickness skin and soft tissue. 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 SOCIAL HISTORY: Social History Tobacco Use Smoking status: Every Day Current packs/day: 0.25 Average packs/day: 0.3 packs/day for 46.0 years (11.5 ttl pk-yrs) Types: Cigarettes Passive exposure: Never Smokeless tobacco: Never Tobacco comments: Started to smoke again, 1/2 pack a week Vaping Use Vaping status: Never Used Substance Use Topics Alcohol use: No Drug use: No FAMILY HISTORY Problem Relation Age of Onset other (liver cancer) Mother age 34 Cancer Father age 54 Diabetes Brother Alive age 68 Asthma Other Alive age 41 No Known Problems Maternal Grandmother No Known Problems Maternal Grandfather No Known Problems Paternal Grandmother No Known Problems Paternal Grandfather MEDICATIONS: tiZANidine (ZANAFLEX) 2 mg tablet Take 1-2 tablets at bedtime as needed for muscle spasms gabapentin (NEURONTIN) 400 mg capsule Take 1 capsule by mouth three times a day for 30 days. Take one capsule three times a day for 30 days empagliflozin (JARDIANCE) 25 mg tablet Take 1 tablet by mouth once daily. Take 1 tablet once daily in the morning montelukast (SINGULAIR) 10 mg tablet TAKE 1 TABLET BY MOUTH EVERYDAY AT BEDTIME rOPINIRole (REQUIP) 4 mg tablet Take 1 tablet by mouth daily at bedtime. fluticasone-salmeterol (WIXELA INHUB) 500-50 mcg/dose dsdv Inhale 1 Puff as instructed two times a day. Please give the patient 1 inhaler with 4 refills. atorvastatin (LIPITOR) 40 mg tablet Take 1 tablet by mouth once daily. For cholesterol. hydroCHLOROthiazide 50 mg tablet Take 1 tablet by mouth once daily. glimepiride (AMARYL) 4 mg tablet Take 2 tablets by mouth daily with breakfast. metFORMIN (GLUCOPHAGE) 1,000 mg tablet Take 1 tablet by mouth two times a day with meals. . losartan (COZAAR) 100 mg tablet Take 1 tablet by mouth once daily. albuterol HFA (VENTOLIN HFA) 90 mcg/actuation inhaler Inhale 2 Puffs as instructed every 4 hours as needed for wheezing/shortness of breath. pentoxifylline ER (TRENTAL) 400 mg CR tablet Take 1 tablet by mouth three times daily with meals. aspirin 81 mg chewable tablet Take 1 tablet by mouth once daily. SILVASORB GlER APPLY TOPICALLY TO AFFECTED AREA EVERY DAY Lactobacillus acidophilus (FLORAJEN ACIDOPHILUS) 20 billion cell capsule Take 1 capsule by mouth once daily. (Patient not taking: Reported on 07/23/2023) blood sugar diagnostic (TRUE METRIX GLUCOSE TEST STRIP) test strip Test once daily DX: E11.42, E11.29 Blood Pressure Monitor (BLOOD PRESSURE KIT) 1 Each once daily. Blood-Glucose Meter (TRUE METRIX AIR GLUCOSE METER) misc 1 Device twice daily. Lancets lancets Test once daily DX: E11.42. E11.29 insulin needles, DISPOSABLE, (BD INSULIN PEN NEEDLE UF) 31 gauge x 5/16 ndle 1 Each once daily. ALLERGIES: ALLERG (more content not included)... [facility] 02-06-2024 History of Present illness Narrative Images from the original note were not included. [facility] [place] DEPARTMENT OF VASCULAR SURGERY OUTPATIENT VISIT DATE February 06, 2024 OUTPATIENT VISIT TYPE CONSULTATION SERVICE DATE: 02/06/2024 SERVICE TIME: 1:26 PM PRIMARY CARE PHYSICIAN: Tobi Sorto MD REFERRING PROVIDER: Self-referred CHIEF COMPLAINT: Right ankle pain for the past year HISTORY OF PRESENT ILLNESS: Vascular consultation at the request of Dr. Kumar. A copy of this consultation note will be provided to the requesting physician by way of shared Medical record or letter to requesting physician via [place] mail. Mr. Estes is a 68 year old male who is seen today for presents with 1 he year history of right ankle pain. Present at all times and painful to touch. He has been seen by his local paste up worker. He denies any claudication symptoms or foot pain. PAST MEDICAL HISTORY Diagnosis Date Aneurysm (HCC) right common femoral artery. Dr. Ordoñez Colon polyps 08/2018 benign, repeat in 10 years Diabetes mellitus, type II (HCC) Diabetic ulcer of toe of right foot (HCC) DVT (deep venous thrombosis) (HCC) GERD (gastroesophageal reflux disease) Hyperlipidemia Hypertension Obesity PAC (premature atrial contraction) Peripheral arterial disease (HCC) Restless leg syndrome Snoring Tobacco use PAST SURGICAL HISTORY Procedure Laterality Date COLONOSCOPY FLX DX W/COLLJ SPEC WHEN PFRMD 09/12/2018 Colonoscopy I&D ABSC; SMPL OR SGL Right 12/22/2015 Incision and drainage of right groin collection, debridement of full- thickness skin and soft tissue. 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 SOCIAL HISTORY: Social History Tobacco Use Smoking status: Every Day Current packs/day: 0.25 Average packs/day: 0.3 packs/day for 46.0 years (11.5 ttl pk-yrs) Types: Cigarettes Passive exposure: Never Smokeless tobacco: Never Tobacco comments: Started to smoke again, 1/2 pack a week Vaping Use Vaping status: Never Used Substance Use Topics Alcohol use: No Drug use: No FAMILY HISTORY Problem Relation Age of Onset other (liver cancer) Mother age 34 Cancer Father age 54 Diabetes Brother Alive age 68 Asthma Other Alive age 41 No Known Problems Maternal Grandmother No Known Problems Maternal Grandfather No Known Problems Paternal Grandmother No Known Problems Paternal Grandfather MEDICATIONS: tiZANidine (ZANAFLEX) 2 mg tablet Take 1-2 tablets at bedtime as needed for muscle spasms gabapentin (NEURONTIN) 400 mg capsule Take 1 capsule by mouth three times a day for 30 days. Take one capsule three times a day for 30 days empagliflozin (JARDIANCE) 25 mg tablet Take 1 tablet by mouth once daily. Take 1 tablet once daily in the morning montelukast (SINGULAIR) 10 mg tablet TAKE 1 TABLET BY MOUTH EVERYDAY AT BEDTIME rOPINIRole (REQUIP) 4 mg tablet Take 1 tablet by mouth daily at bedtime. fluticasone-salmeterol (WIXELA INHUB) 500-50 mcg/dose dsdv Inhale 1 Puff as instructed two times a day. Please give the patient 1 inhaler with 4 refills. atorvastatin (LIPITOR) 40 mg tablet Take 1 tablet by mouth once daily. For cholesterol. hydroCHLOROthiazide 50 mg tablet Take 1 tablet by mouth once daily. glimepiride (AMARYL) 4 mg tablet Take 2 tablets by mouth daily with breakfast. metFORMIN (GLUCOPHAGE) 1,000 mg tablet Take 1 tablet by mouth two times a day with meals. . losartan (COZAAR) 100 mg tablet Take 1 tablet by mouth once daily. albuterol HFA (VENTOLIN HFA) 90 mcg/actuation inhaler Inhale 2 Puffs as instructed every 4 hours as needed for wheezing/shortness of breath. pentoxifylline ER (TRENTAL) 400 mg CR tablet Take 1 tablet by mouth three times daily with meals. aspirin 81 mg chewable tablet Take 1 tablet by mouth once daily. SILVASORB GlER APPLY TOPICALLY TO AFFECTED AREA EVERY DAY Lactobacillus acidophilus (FLORAJEN ACIDOPHILUS) 20 billion cell capsule Take 1 capsule by mouth once daily. (Patient not taking: Reported on 07/23/2023) blood sugar diagnostic (TRUE METRIX GLUCOSE TEST STRIP) test strip Test once daily DX: E11.42, E11.29 Blood Pressure Monitor (BLOOD PRESSURE KIT) 1 Each once daily. Blood-Glucose Meter (TRUE METRIX AIR GLUCOSE METER) misc 1 Device twice daily. Lancets lancets Test once daily DX: E11.42. E11.29 insulin needles, DISPOSABLE, (BD INSULIN PEN NEEDLE UF) 31 gauge x 5/16 ndle 1 Each once daily. ALLERGIES: ALLERGIES No Known Allergies REVIEW OF SYSTEM: Constitutional: No weight loss, malaise or fevers. HEENT: Negative for frequent or significant headaches Respiratory: Negative for cough, wheezing, or shortness of breath Cardiovascular: Negative for chest pain, leg swelling or palpitations Gatrointestinal: Negative for abdominal discomfort, blood in stools or black stools or change in bowel habits Genitourinary: No history of dysuria, frequency, or incontinence Musculoskeletal: Negative for joint pain or swelling, back pain or muscle pain Endocrine: Negative for cold or heat intolerance, polyuria, polydipsia and goiter Hematology/Lymphatic: Negative for prolonged bleeding, bruising easily or swollen nodes Neurologic: No history or headaches, syncope, paralysis, seizures or tremors Integumentary: Negative for lesions, rash, and itching. PHYSICAL EXAM: VITALS: BP 143/77 Pulse 57 Temp (Src) 98.1 (Oral) Resp 18 Ht 6' 0 (1.83m) Wt 241 lb 6.5 oz (109.5kg) SpO2 94% BMI 32.73 kg/(m^2). General: Alert and oriented Integumentary: Normal color, no rash, no lesions. HEENT: EOM, pupils equal, round and reactive. Cardiovascular: Normal S1 & S2, no rubs, murmurs or gallops. No JVD., Pulse regular. Lungs: Normal breath sounds, no wheezes or crackles. Abdomen: Soft, non-tender, no rigidity. Extremities: No deformity, no edema or tenderness, no joint swelling or clubbing. Neurological: Normal cognition and motor skills. Palpable bypass graft pulse foot warm well-perfused Diagnostic tests reviewed for today's visit: Plex ultrasound demonstrates normal velocities throughout the bypass graft ankle-brachial index greater than 1 IMPRESSION: Mr. Estes is a 68 year old male needs follow-up with podiatry for what is likely musculoskeletal etiology of right leg pain. He has PAD with a patent right leg bypass. I should plan on seeing him back in 12 months with repeat studies including PVRs ultrasound. He needs guideline directed medical therapy with glycemic control,. PLAN and RECOMMENDATIONS: no Surgery Recommended. SIGNATURE: Rolando Jean MD PATIENT NAME: Joshua Estes DATE: February 06, 2024 TIME: 1:26 PM documented in this encounter [facility] 01-28-2024 Telephone encounter Note Patient has been identified by name and date of : Yes, Patient phones for refill(s): Requested Prescriptions Pending Prescriptions Disp Refills tiZANidine (ZANAFLEX) 2 mg tablet 60 tablet 1 Sig: Take 1-2 tablets at bedtime as needed for muscle spasms Date of last office visit in primary care: 01/08/2024 Date of next office visit in primary care: 07/08/2024 Please advise. Thank you. Audrey Bacon. [facility] 01-28-2024 Miscellaneous Notes Patient has been identified by name and date of : Yes, Patient phones for refill(s): Requested Prescriptions Pending Prescriptions Disp Refills tiZANidine (ZANAFLEX) 2 mg tablet 60 tablet 1 Sig: Take 1-2 tablets at bedtime as needed for muscle spasms Date of last office visit in primary care: 01/08/2024 Date of next office visit in primary care: 07/08/2024 Please advise. Thank you. Audrey Bacon. documented in this encounter [facility] 01-21-2024 Telephone encounter Note PDMP website checked and validated. All prescriptions have been APPROPRIATELY filled. No suspicious activity was identified. 01/21/2024 by Audrey Packer APRN.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 SPECIALIST [facility] 01-21-2024 Miscellaneous Notes PDMP website checked and validated. All prescriptions have been APPROPRIATELY filled. No suspicious activity was identified. 01/21/2024 by Audrey Packer APRN.CNP Patient has been identified by name and date of : yes Patient phones for refill(s): Requested Prescriptions Pending Prescriptions Disp Refills gabapentin (NEURONTIN) 400 mg capsule 90 capsule 0 Sig: Take 1 capsule by mouth three times a day for 30 days. Take one capsule three times a day for 30 days Date of last office visit in primary care: 01/08/2024 Date of next office visit in primary care: 07/08/2024 Please advise. Thank you. Alondra Gillette MA. Prescription Refill Information The patient has been identified by name and date of : Yes Caregiver verified no other encounters exist for this prescription request: Yes Caregiver confirmed with patient/requestor that no other refills are due, in the near future, with this provider at this time: Yes The last office visit in the department: 01/08/24 Does the patient have a future office visit with this provider/department: Yes Requested Prescriptions Pending Prescriptions Disp Refills gabapentin (NEURONTIN) 400 mg capsule 90 capsule 0 Sig: Take 1 capsule by mouth three times a day for 30 days. Take one capsule three times a day for 30 days Ebony Samuels January 21, 2024 3:39 PM documented in this encounter [facility] 01-21-2024 Telephone encounter Note Patient has been identified by name and date of : yes Patient phones for refill(s): Requested Prescriptions Pending Prescriptions Disp Refills gabapentin (NEURONTIN) 400 mg capsule 90 capsule 0 Sig: Take 1 capsule by mouth three times a day for 30 days. Take one capsule three times a day for 30 days Date of last office visit in primary care: 01/08/2024 Date of next office visit in primary care: 07/08/2024 Please advise. Thank you. Alondra Gillette MA. [facility] 01-21-2024 Telephone encounter Note Prescription Refill Information The patient has been identified by name and date of : Yes Caregiver verified no other encounters exist for this prescription request: Yes Caregiver confirmed with patient/requestor that no other refills are due, in the near future, with this provider at this time: Yes The last office visit in the department: 01/08/24 Does the patient have a future office visit with this provider/department: Yes Requested Prescriptions Pending Prescriptions Disp Refills gabapentin (NEURONTIN) 400 mg capsule 90 capsule 0 Sig: Take 1 capsule by mouth three times a day for 30 days. Take one capsule three times a day for 30 days Ebony Samuels January 21, 2024 3:39 PM [facility] 01-10-2024 Telephone encounter Note Spoke with patient appt scheduled 02/06/24 with with testing. [facility] 01-10-2024 Miscellaneous Notes Spoke with patient appt scheduled 02/06/24 with with testing. Triage please? What testing will he need? Thanks, Reason for call: Mr Estes called and he would like to schedule an appointment with Contact Name (If not the pt): Home and cell number: [phone] Diagnosis: Post PAD surgery , pt having issues with is leg Kind Regards, Angel Marcus documented in this encounter [facility] 01-10-2024 Telephone encounter Note Triage please? What testing will he need? Thanks, [facility] 01-08-2024 Telephone encounter Note Reason for call: Mr Estes called and he would like to schedule an appointment with Contact Name (If not the pt): Home and cell number: [phone] Diagnosis: Post PAD surgery , pt having issues with is leg Kind Angel Schuler [facility] 01-08-2024 History of Present illness Narrative 01/08/2024 Patient presents with: F/U 6 months SUBJECTIVE: This is a 68 year old that is here today for Above Complaints. DIABETES MELLITUS: Since our last visit he denies excessive thirst or increased frequency of urination, chest pain or dyspnea , new or unusual visual symptoms, low sugar/hypoglycemic reactions, weight loss/gain, lightheadedness/dizziness, and bowel changes/loose stoolsFollows a diabetic diet most of the time. He is compliant with medication(s) and is tolerating med(s) without any side effects. He reports checking his glucose on a once a day schedule with sugars in the <150 range. Patient's last HgA1C was Hemoglobin A1C (%) Date Value 12/05/2023 7.4 08/23/2023 8.1 02/21/2021 6.8 06/11/2020 8.1 ) Last Ophthalmology exam- needs to call and schedule- reports just received a text he is due Last Podiatry exam was: 12/04/2023 HTN: Patient is compliant with meds Yes Monitors bp at home: occasionally . Denies side effects: Yes. Chest pain: No. Dyspnea: No. Edema: No. Palpitations: No. Syncope: No. Headache: No. Dizziness: No. HYPERLIPIDEMIA: Patient is taking medications: Yes. Patient is watching diet: Yes. Patient denies myalgias: Yes. Patient denies gi upset: Yes PAD: taking ASA, statin and trental as prescribed. Does have pain after walking in his right leg which improves with rest. Denies cyanosis RLS: muscle spasm some better in his right leg. Left leg doesn't bother him Following with pulmonology for hx of cough and tobacco use. Last appointment on 09/17/2023 with follow-up scheduled for 01/18/2024. Using inhalers as prescribed without side effects. Denies SOB, dyspnea, orthopnea, wheezing or coughing. Saw ENT for loss of taste and smell and MRI was ordered. Patient reports he is very claustrophobic and needs something to help him get through the MRI PAST MEDICAL HISTORY Diagnosis Date Aneurysm (HCC) right common femoral artery. Dr. Ordoñez Colon polyps 08/2018 benign, repeat in 10 years Diabetes mellitus, type II (HCC) Diabetic ulcer of toe of right foot (HCC) DVT (deep venous thrombosis) (HCC) GERD (gastroesophageal reflux disease) Hyperlipidemia Hypertension Obesity PAC (premature atrial contraction) Peripheral arterial disease (HCC) Restless leg syndrome Snoring Tobacco use ALLERGIES Patient has no known allergies. MEDICATIONS Current Outpatient Medications Medication Sig gabapentin (NEURONTIN) 400 mg capsule Take 1 capsule by mouth three times a day for 30 days. Take one capsule three times a day for 30 days tiZANidine (ZANAFLEX) 2 mg tablet Take 1-2 tablets at bedtime as needed for muscle spasms empagliflozin (JARDIANCE) 25 mg tablet Take 1 tablet by mouth once daily. Take 1 tablet once daily in the morning montelukast (SINGULAIR) 10 mg tablet TAKE 1 TABLET BY MOUTH EVERYDAY AT BEDTIME rOPINIRole (REQUIP) 4 mg tablet Take 1 tablet by mouth daily at bedtime. fluticasone-salmeterol (WIXELA INHUB) 500-50 mcg/dose dsdv Inhale 1 Puff as instructed two times a day. Please give the patient 1 inhaler with 4 refills. atorvastatin (LIPITOR) 40 mg tablet Take 1 tablet by mouth once daily. For cholesterol. hydroCHLOROthiazide 50 mg tablet Take 1 tablet by mouth once daily. glimepiride (AMARYL) 4 mg tablet Take 2 tablets by mouth daily with breakfast. metFORMIN (GLUCOPHAGE) 1,000 mg tablet Take 1 tablet by mouth two times a day with meals. . losartan (COZAAR) 100 mg tablet Take 1 tablet by mouth once daily. SILVASORB GlER APPLY TOPICALLY TO AFFECTED AREA EVERY DAY albuterol HFA (VENTOLIN HFA) 90 mcg/actuation inhaler Inhale 2 Puffs as instructed every 4 hours as needed for wheezing/shortness of breath. Lactobacillus acidophilus (FLORAJEN ACIDOPHILUS) 20 billion cell capsule Take 1 capsule by mouth once daily. (Patient not taking: Reported on 07/23/2023) blood sugar diagnostic (TRUE METRIX GLUCOSE TEST STRIP) test strip Test once daily DX: E11.42, E11.29 Blood Pressure Monitor (BLOOD PRESSURE KIT) 1 Each once daily. pentoxifylline ER (TRENTAL) 400 mg CR tablet Take 1 tablet by mouth three times daily with meals. Blood-Glucose Meter (TRUE METRIX AIR GLUCOSE METER) misc 1 Device twice daily. Lancets lancets Test once daily DX: E11.42. E11.29 insulin needles, DISPOSABLE, (BD INSULIN PEN NEEDLE UF) 31 gauge x 5/16 ndle 1 Each once daily. aspirin 81 mg chewable tablet Take 1 tablet by mouth once daily. No current facility-administered medications for this visit. Medications and allergies reviewed by this provider. SOCIAL HISTORY Social History Tobacco Use Smoking status: Every Day Current packs/day: 0.25 Average packs/day: 0.3 packs/day for 46.0 years (11.5 ttl pk-yrs) Types: Cigarettes Passive exposure: Never Smokeless tobacco: Never Tobacco comments: Started to smoke again, 1/2 pack a week Vaping Use Vaping status: Never Used Substance Use Topics Alcohol use: No Drug use: No REVIEW OF SYSTEMS All other reviewed and negative other than HPI. OBJECTIVE: BP 132/78 Pulse 82 Resp 18 Wt 110.5 kg (243 lb 9.7 oz) SpO2 94% BMI 32.59 kg/m . Vital signs reviewed by this provider. APPEARANCE Well appearing, alert, in no acute distress, well-hydrated, well nourished. EYES conjunctiva and sclera normal. HEART RRR with normal S1 and S2, no murmurs, no gallops, no JVD appreciated LUNG clear to auscultation. No wheezes, rhonchi or rales EXTREMITIES Extremities normal, No deformities, No skin discoloration, and No edema SKIN Skin color, texture, turgor normal, no suspicious rashes or lesions to exposed skin Feet: Shoes and socks removed, No deformities, ulcers, calluses, and not sensitive to monofilament . Unable to palpate pulses. Cap refill WNL. Toes warm to touch Latest Ref Rng 12/05/2023 WBC 3.70 - 11.00 k/uL 9.89 RBC 4.20 - 6.00 m/uL 5.53 Hemoglobin 13.0 - 17.0 g/dL 17.4 (H) Hematocrit 39.0 - 51.0 % 55.4 (H) MCV 80.0 - 100.0 fL 100.2 (H) MCH 26.0 - 34.0 pg 31.5 MCHC 30.5 - 36.0 g/dL 31.4 RDW-CV 11.5 - 15.0 % 14.6 Platelet Count 150 - 400 k/uL 182 MPV 9.0 - 12.7 fL 11.2 Neut% % 60.7 Abs Neut (ANC) 1.45 - 7.50 k/uL 6.00 Lymph% % 25.3 Abs Lymph 1.00 - 4.00 k/uL 2.50 Geary% % 8.5 Abs Geary <0.87 k/uL 0.84 Eosin% % 3.9 Abs Eosin <0.46 k/uL 0.39 Baso% % 1.1 Abs Baso <0.11 k/uL 0.11 (H) Immature Gran % % 0.5 IMMATURE GRANS (ABS) <0.10 k/uL 0.05 NRBC /100 WBC 0.0 Absolute nRBC <0.01 k/uL <0.01 DTYPE Auto Protein, Total 6.3 - 8.0 g/dL 6.8 Albumin 3.9 - 4.9 g/dL 4.0 Calcium 8.5 - 10.2 mg/dL 9.2 Bilirubin, Total 0.2 - 1.3 mg/dL 0.6 Alkaline Phosphatase 38 - 113 U/L 62 AST 14 - 40 U/L 18 ALT 10 - 54 U/L 14 Glucose 74 - 99 mg/dL 163 (H) BUN 9 - 24 mg/dL 25 (H) Creatinine 0.73 - 1.22 mg/dL 1.35 (H) Sodium 136 - 144 mmol/L 141 Potassium 3.7 - 5.1 mmol/L 5.1 Chloride 98 - 107 mmol/L 100 CO2 22 - 30 mmol/L 26 Anion Gap 8 - 15 mmol/L 15 eGFR >=60 mL/min/1.73m 57 (L) Hemoglobin A1C 4.3 - 5.6 % 7.4 (H) Estimated Average Glucose mg/dL 166 Vitamin B12 232 - 1,245 pg/mL 263 Zinc 60 - 120 ug/dL 68 Latest Ref Rng 08/23/2023 Cholesterol, Total <200 mg/dL 135 Triglyceride <150 mg/dL 208 (H) HDL Cholesterol >39 mg/dL 35 (L) Non HDL Cholesterol <130 mg/dL 100 Fasting Time hrs 12 VLDL Cholesterol <30 mg/dL 42 (H) TC:HDL Ratio <5.10 3.86 LDL Cholesterol <100 mg/dL 58 LDL:HDL Ratio <2.54 1.66 Depression Screening Never done Anxiety Screening Never done Shingrix Vaccine(1 of 2) Never done RSV Vaccine(1 - Risk 60-74 years 1-dose series) Never done Pneumococcal Vaccine: 65+(2 of 2 - PCV) due on 11/23/2019 BP Controlled (<130/80) due on 07/04/2022 Dilated Retinal Exam due on 08/10/2022 Advance Directive Discussion Never done Influenza Vaccine(1) due on 09/29/2024 Covid-19 Vaccine( season) due on 01/07/2025 HbA1C due on 06/03/2024 Diabetic Foot Exam due on 07/08/2024 Urine Albumin:Creatinine Ratio due on 08/22/2024 LDL Cholesterol due on 08/22/2024 Annual PCP Team Chronic Disease Visit due on 01/07/2025 Colorectal Cancer Screening due on 09/12/2028 DTaP,Tdap,Td Vaccine(2 - Td or Tdap) due on 11/22/2028 Abdominal Aortic Aneurysm Screening Completed Hepatitis C Screening Completed ASSESSMENT/PLAN: 1. Type 2 diabetes mellitus with peripheral neuropathy (HCC) - ICD9: 250.60, 357.2, ICD10: E11.42 (primary diagnosis) - Controlled - Continue current medications - Statin prescribed - atorvastatin - Blood glucose monitoring on a once daily schedule - Counseled on healthy diet and regular exercise - Discussed need for and benefit of weight loss. BMI 32.58 kg/(m^2) - Smoking cessation encouraged; discussed risks to health and quitting strategies. Patient is not ready to quit - Follow up in 6 months, sooner should any other issues arise. 2. Essential hypertension, benign - ICD9: 401.1, ICD10: I10 - Controlled - Continue current medications - Recommend home blood pressure monitoring, to bring results to next visit - Encouraged sodium restriction, DASH or Mediterranean diet - Recommend regular aerobic exercise - Discussed need for and benefit of weight loss. BMI 32.58 kg/(m^2) - Smoking cessation encouraged; discussed risks to health and quitting strategies. Patient is not ready to quit - Follow up in 6 months for hypertension visit 3. Restrictive lung disease - ICD9: 518.89, ICD10: J98.4 - stable - follow-up with pulmonology as recommended 4. Restless leg syndrome - ICD9: 333.94, ICD10: G25.81 - improved on increased gabapentin 5. Peripheral arterial disease (HCC) - ICD9: 443.9, ICD10: I73.9 - continue current medications - recommend he follow-up with vascular 6. Hyperlipidemia with target LDL less than 100 - ICD9: 272.4, ICD10: E78.5 - Controlled - Continue current medications - Counseled on healthy diet and regular exercise - Discussed need for and benefit of weight loss. BMI 32.58 kg/(m^2) - Follow up in 6 months, sooner should any other issues arise. 7. Claustrophobia - ICD9: 300.29, ICD10: F40.240 - discussed he will need someone to drive him to and from appointment as medication can cause drowsiness, verbalizes understanding - LORAZEPAM 1 MG TABLET PDMP website checked and validated. All prescriptions have been APPROPRIATELY filled. No suspicious activity was identified. 01/08/2024 by VERENICE Soni APRN.CNP Prescription instructions reviewed with patient as applicable. Patient advised if symptoms do not improve or if symptoms worsen sooner, to contact their primary care physician. Potential red flag symptoms discussed with the patient. Reviewed appropriate action plan to take if red flag symptoms occur. Patient agreeable to treatment plan. Medical Decision Making: Problems: Moderate: 2+ stable chronic illnesses Data: Unique test(s) ordered: 3+ Risk: Moderate: Drug management and Moderate risk from testing/treatment Medical Decision Making Level: 4 - Moderate documented in this encounter [facility] 01-08-2024 Note HNO ID: [id number] Author: AUDREY PACKER APRN.CNP Service: ? Author Type: Nurse Practitioner Type: Progress Notes Filed: 01/08/2024 10:05 Note Text: 01/08/2024 Patient presents with: F/U 6 months SUBJECTIVE: This is a 68 year old that is here today for Above Complaints. DIABETES MELLITUS: Since our last visit he denies excessive thirst or increased frequency of urination, chest pain or dyspnea , new or unusual visual symptoms, low sugar/hypoglycemic reactions, weight loss/gain, lightheadedness/dizziness, and bowel changes/loose stoolsFollows a diabetic diet most of the time. He is compliant with medication(s) and is tolerating med(s) without any side effects. He reports checking his glucose on a once a day schedule with sugars in the <150 range. Patient's last HgA1C was Hemoglobin A1C (%) Date Value 12/05/2023 7.4 08/23/2023 8.1 02/21/2021 6.8 06/11/2020 8.1 ) Last Ophthalmology exam- needs to call and schedule- reports just received a text he is due Last Podiatry exam was: 12/04/2023 HTN: Patient is compliant with meds Yes Monitors bp at home: occasionally . Denies side effects: Yes. Chest pain: No. Dyspnea: No. Edema: No. Palpitations: No. Syncope: No. Headache: No. Dizziness: No. HYPERLIPIDEMIA: Patient is taking medications: Yes. Patient is watching diet: Yes. Patient denies myalgias: Yes. Patient denies gi upset: Yes PAD: taking ASA, statin and trental as prescribed. Does have pain after walking in his right leg which improves with rest. Denies cyanosis RLS: muscle spasm some better in his right leg. Left leg doesn't bother him Following with pulmonology for hx of cough and tobacco use. Last appointment on 09/17/2023 with follow-up scheduled for 01/18/2024. Using inhalers as prescribed without side effects. Denies SOB, dyspnea, orthopnea, wheezing or coughing. Saw ENT for loss of taste and smell and MRI was ordered. Patient reports he is very claustrophobic and needs something to help him get through the MRI PAST MEDICAL HISTORY Diagnosis Date Aneurysm (HCC) right common femoral artery. Dr. Ordoñez Colon polyps 08/2018 benign, repeat in 10 years Diabetes mellitus, type II (HCC) Diabetic ulcer of toe of right foot (HCC) DVT (deep venous thrombosis) (HCC) GERD (gastroesophageal reflux disease) Hyperlipidemia Hypertension Obesity PAC (premature atrial contraction) Peripheral arterial disease (HCC) Restless leg syndrome Snoring Tobacco use ALLERGIES Patient has no known allergies. MEDICATIONS Current Outpatient Medications Medication Sig gabapentin (NEURONTIN) 400 mg capsule Take 1 capsule by mouth three times a day for 30 days. Take one capsule three times a day for 30 days tiZANidine (ZANAFLEX) 2 mg tablet Take 1-2 tablets at bedtime as needed for muscle spasms empagliflozin (JARDIANCE) 25 mg tablet Take 1 tablet by mouth once daily. Take 1 tablet once daily in the morning montelukast (SINGULAIR) 10 mg tablet TAKE 1 TABLET BY MOUTH EVERYDAY AT BEDTIME rOPINIRole (REQUIP) 4 mg tablet Take 1 tablet by mouth daily at bedtime. fluticasone-salmeterol (WIXELA INHUB) 500-50 mcg/dose dsdv Inhale 1 Puff as instructed two times a day. Please give the patient 1 inhaler with 4 refills. atorvastatin (LIPITOR) 40 mg tablet Take 1 tablet by mouth once daily. For cholesterol. hydroCHLOROthiazide 50 mg tablet Take 1 tablet by mouth once daily. glimepiride (AMARYL) 4 mg tablet Take 2 tablets by mouth daily with breakfast. metFORMIN (GLUCOPHAGE) 1,000 mg tablet Take 1 tablet by mouth two times a day with meals. . losartan (COZAAR) 100 mg tablet Take 1 tablet by mouth once daily. SILVASORB GlER APPLY TOPICALLY TO AFFECTED AREA EVERY DAY albuterol HFA (VENTOLIN HFA) 90 mcg/actuation inhaler Inhale 2 Puffs as instructed every 4 hours as needed for wheezing/shortness of breath. Lactobacillus acidophilus (FLORAJEN ACIDOPHILUS) 20 billion cell capsule Take 1 capsule by mouth once daily. (Patient not taking: Reported on 07/23/2023) blood sugar diagnostic (TRUE METRIX GLUCOSE TEST STRIP) test strip Test once daily DX: E11.42, E11.29 Blood Pressure Monitor (BLOOD PRESSURE KIT) 1 Each once daily. pentoxifylline ER (TRENTAL) 400 mg CR tablet Take 1 tablet by mouth three times daily with meals. Blood-Glucose Meter (TRUE METRIX AIR GLUCOSE METER) misc 1 Device twice daily. Lancets lancets Test once daily DX: E11.42. E11.29 insulin needles, DISPOSABLE, (BD INSULIN PEN NEEDLE UF) 31 gauge x 5/16 ndle 1 Each once daily. aspirin 81 mg chewable tablet Take 1 tablet by mouth once daily. No current facility-administered medications for this visit. Medications and allergies reviewed by this provider. SOCIAL HISTORY Social History Tobacco Use Smoking status: Every Day Current packs/day: 0.25 Average packs/day: 0.3 packs/day for 46.0 years (11.5 ttl pk-yrs) Types: Cigarettes Passive exposure: Never Smokeless tobacco: Nev (more content not included)... [facility] 12-21-2023 Telephone encounter Note Rx sent for 30 days for 400 mg gabapentin TID. Call if symptoms not improving in 2 weeks. [facility] 12-21-2023 Miscellaneous Notes Rx sent for 30 days for 400 mg gabapentin TID. Call if symptoms not improving in 2 weeks. Pt agreeable to increase Gabapentin. Uses [facility] [place]. Rosalva Awad MA He is also on gabapentin which helps with RLS, we could try increasing dosage to 400 mg TID. If agreeable, will send new rx. Pt notified. He states he taking 2 Zanaflex every night since being started taking. Any other suggestions? Rosalva Awad MA He is on max dose of Requip for RLS. Has he tried taking 2 tablets of the Zanaflex at night? Patient telephoned. States he is not getting any relief from the new medication he started for restless leg/muscle spasms. (Tizanidine) Says he is up until 3am most nights where his legs are jumping like crazy and not getting any sleep. Would like some advise on what to do next. Please advise. Marleny Raygoza LPN documented in this encounter [facility] 12-20-2023 Telephone encounter Note Pt agreeable to increase Gabapentin. Uses [facility]. Rosalva Awad MA [facility] 12-20-2023 Telephone encounter Note He is also on gabapentin which helps with RLS, we could try increasing dosage to 400 mg TID. If agreeable, will send new rx. [facility] 12-20-2023 Telephone encounter Note Pt notified. He states he taking 2 Zanaflex every night since being started taking. Any other suggestions? Rosalva Awad MA [facility] 12-20-2023 Telephone encounter Note He is on max dose of Requip for RLS. Has he tried taking 2 tablets of the Zanaflex at night? [facility] 12-19-2023 Telephone encounter Note Patient telephoned. States he is not getting any relief from the new medication he started for restless leg/muscle spasms. (Tizanidine) Says he is up until 3am most nights where his legs are jumping like crazy and not getting any sleep. Would like some advise on what to do next. Please advise. Marleny Raygoza LPN [facility] 12-05-2023 Note HNO ID: [id number] Author: PODAUDREY CROOK APRN.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 SPECIALIST Service: ? Author Type: Nurse Practitioner Type: Progress Notes Filed: 12/05/2023 08:31 Note Text: 12/05/2023 Patient presents with: Musculoskeletal Problem: Each night when going to bed his legs are jumping No taste: X 8 months SUBJECTIVE: This is a 68 year old that is here today for Above Complaints.. Reports muscle spams in legs when he lays down at night. Last for an hour. Once in a while gets a burning sensation to left outer ankle. Taking Flexeril, gabapentin and Requip as prescribed without side effects Reports has not been able to taste much for the last 8 months. Reports he has not had COVID-19 that he knows of. Admits doesn't really smell too much either. Patient does smoke PAST MEDICAL HISTORY No date: Aneurysm ([facility]) Comment: right common femoral artery. Dr. Ordoñez 08/2018: Colon polyps Comment: benign, repeat in 10 years No date: Diabetes mellitus, type II ([facility]) No date: Diabetic ulcer of toe of right foot ([facility]) No date: DVT (deep venous thrombosis) ([facility]) No date: GERD (gastroesophageal reflux disease) No date: Hyperlipidemia No date: Hypertension No date: Obesity No date: PAC (premature atrial contraction) No date: Peripheral arterial disease ([facility]) No date: Restless leg syndrome No date: Snoring No date: Tobacco use ALLERGIES Patient has no known allergies. MEDICATIONS Current Outpatient Medications Medication Sig cyclobenzaprine (FLEXERIL) 5 mg tablet Take 1-2 tablets at bedtime as needed for muscle spasms empagliflozin (JARDIANCE) 25 mg tablet Take 1 tablet by mouth once daily. Take 1 tablet once daily in the morning montelukast (SINGULAIR) 10 mg tablet TAKE 1 TABLET BY MOUTH EVERYDAY AT BEDTIME rOPINIRole (REQUIP) 4 mg tablet Take 1 tablet by mouth daily at bedtime. fluticasone-salmeterol (WIXELA INHUB) 500-50 mcg/dose dsdv Inhale 1 Puff as instructed two times a day. Please give the patient 1 inhaler with 4 refills. atorvastatin (LIPITOR) 40 mg tablet Take 1 tablet by mouth once daily. For cholesterol. hydroCHLOROthiazide 50 mg tablet Take 1 tablet by mouth once daily. glimepiride (AMARYL) 4 mg tablet Take 2 tablets by mouth daily with breakfast. metFORMIN (GLUCOPHAGE) 1,000 mg tablet Take 1 tablet by mouth two times a day with meals. . losartan (COZAAR) 100 mg tablet Take 1 tablet by mouth once daily. gabapentin (NEURONTIN) 300 mg capsule Take one capsule three times a day for 30 days SILVASORB GlER APPLY TOPICALLY TO AFFECTED AREA EVERY DAY albuterol HFA (VENTOLIN HFA) 90 mcg/actuation inhaler Inhale 2 Puffs as instructed every 4 hours as needed for wheezing/shortness of breath. Lactobacillus acidophilus (FLORAJEN ACIDOPHILUS) 20 billion cell capsule Take 1 capsule by mouth once daily. (Patient not taking: Reported on 07/23/2023) blood sugar diagnostic (TRUE METRIX GLUCOSE TEST STRIP) test strip Test once daily DX: E11.42, E11.29 Blood Pressure Monitor (BLOOD PRESSURE KIT) 1 Each once daily. pentoxifylline ER (TRENTAL) 400 mg CR tablet Take 1 tablet by mouth three times daily with meals. Blood-Glucose Meter (TRUE METRIX AIR GLUCOSE METER) misc 1 Device twice daily. Lancets lancets Test once daily DX: E11.42. E11.29 insulin needles, DISPOSABLE, (BD INSULIN PEN NEEDLE UF) 31 gauge x 5/16 ndle 1 Each once daily. aspirin 81 mg chewable tablet Take 1 tablet by mouth once daily. No current facility-administered medications for this visit. Medications and allergies reviewed by this provider. SOCIAL HISTORY Social History Tobacco Use Smoking status: Every Day Current packs/day: 0.25 Average packs/day: 0.3 packs/day for 46.0 years (11.5 ttl pk-yrs) Types: Cigarettes Passive exposure: Never Smokeless tobacco: Never Tobacco comments: Started to smoke again, 1/2 pack a week Vaping Use Vaping status: Never Used Substance Use Topics Alcohol use: No Drug use: No REVIEW OF SYSTEMS All other reviewed and negative other than HPI. OBJECTIVE: BP 132/90 Pulse 68 Resp 18 Wt 109.4 kg (241 lb 2.9 oz) SpO2 94% BMI 32.26 kg/m? . Vital signs reviewed by this provider. APPEARANCE Well appearing, alert, in no acute distress, well-hydrated, well nourished. EYES PERRLA, conjunctiva and sclera normal. EARS External ears normal, canals clear NOSE/SINUS Nares normal. Septum midline. Mucosa normal. No drainage or sinus tenderness. THROAT normal, no erythema NECK Supple, no adenopathy; thyroid symmetric, normal size, no bruits EXTREMITIES Extremities normal, No deformities, No skin discoloration, and No edema NEURO Awake, alert and oriented x 3, Cranial nerves II-XII grossly intact, Reflexes symmetrical, Normal gait, No involuntary motions., and negative findings: speech normal, mental status intact, cranial nerves 2-12 intact, gait, including heel, toe, and tandem walking normal, Romberg negative, muscle tone normal, muscle strength normal, rapid alte (more content not included)... [facility] 12-05-2023 History of Present illness Narrative 12/05/2023 Patient presents with: Musculoskeletal Problem: Each night when going to bed his legs are jumping No taste: X 8 months SUBJECTIVE: This is a 68 year old that is here today for Above Complaints.. Reports muscle spams in legs when he lays down at night. Last for an hour. Once in a while gets a burning sensation to left outer ankle. Taking Flexeril, gabapentin and Requip as prescribed without side effects Reports has not been able to taste much for the last 8 months. Reports he has not had COVID-19 that he knows of. Admits doesn't really smell too much either. Patient does smoke PAST MEDICAL HISTORY No date: Aneurysm ([facility]) Comment: right common femoral artery. Dr. Ordoñez 08/2018: Colon polyps Comment: benign, repeat in 10 years No date: Diabetes mellitus, type II ([facility]) No date: Diabetic ulcer of toe of right foot ([facility]) No date: DVT (deep venous thrombosis) ([facility]) No date: GERD (gastroesophageal reflux disease) No date: Hyperlipidemia No date: Hypertension No date: Obesity No date: PAC (premature atrial contraction) No date: Peripheral arterial disease ([facility]) No date: Restless leg syndrome No date: Snoring No date: Tobacco use ALLERGIES Patient has no known allergies. MEDICATIONS Current Outpatient Medications Medication Sig cyclobenzaprine (FLEXERIL) 5 mg tablet Take 1-2 tablets at bedtime as needed for muscle spasms empagliflozin (JARDIANCE) 25 mg tablet Take 1 tablet by mouth once daily. Take 1 tablet once daily in the morning montelukast (SINGULAIR) 10 mg tablet TAKE 1 TABLET BY MOUTH EVERYDAY AT BEDTIME rOPINIRole (REQUIP) 4 mg tablet Take 1 tablet by mouth daily at bedtime. fluticasone-salmeterol (WIXELA INHUB) 500-50 mcg/dose dsdv Inhale 1 Puff as instructed two times a day. Please give the patient 1 inhaler with 4 refills. atorvastatin (LIPITOR) 40 mg tablet Take 1 tablet by mouth once daily. For cholesterol. hydroCHLOROthiazide 50 mg tablet Take 1 tablet by mouth once daily. glimepiride (AMARYL) 4 mg tablet Take 2 tablets by mouth daily with breakfast. metFORMIN (GLUCOPHAGE) 1,000 mg tablet Take 1 tablet by mouth two times a day with meals. . losartan (COZAAR) 100 mg tablet Take 1 tablet by mouth once daily. gabapentin (NEURONTIN) 300 mg capsule Take one capsule three times a day for 30 days SILVASORB GlER APPLY TOPICALLY TO AFFECTED AREA EVERY DAY albuterol HFA (VENTOLIN HFA) 90 mcg/actuation inhaler Inhale 2 Puffs as instructed every 4 hours as needed for wheezing/shortness of breath. Lactobacillus acidophilus (FLORAJEN ACIDOPHILUS) 20 billion cell capsule Take 1 capsule by mouth once daily. (Patient not taking: Reported on 07/23/2023) blood sugar diagnostic (TRUE METRIX GLUCOSE TEST STRIP) test strip Test once daily DX: E11.42, E11.29 Blood Pressure Monitor (BLOOD PRESSURE KIT) 1 Each once daily. pentoxifylline ER (TRENTAL) 400 mg CR tablet Take 1 tablet by mouth three times daily with meals. Blood-Glucose Meter (TRUE METRIX AIR GLUCOSE METER) misc 1 Device twice daily. Lancets lancets Test once daily DX: E11.42. E11.29 insulin needles, DISPOSABLE, (BD INSULIN PEN NEEDLE UF) 31 gauge x 5/16 ndle 1 Each once daily. aspirin 81 mg chewable tablet Take 1 tablet by mouth once daily. No current facility-administered medications for this visit. Medications and allergies reviewed by this provider. SOCIAL HISTORY Social History Tobacco Use Smoking status: Every Day Current packs/day: 0.25 Average packs/day: 0.3 packs/day for 46.0 years (11.5 ttl pk-yrs) Types: Cigarettes Passive exposure: Never Smokeless tobacco: Never Tobacco comments: Started to smoke again, 1/2 pack a week Vaping Use Vaping status: Never Used Substance Use Topics Alcohol use: No Drug use: No REVIEW OF SYSTEMS All other reviewed and negative other than HPI. OBJECTIVE: BP 132/90 Pulse 68 Resp 18 Wt 109.4 kg (241 lb 2.9 oz) SpO2 94% BMI 32.26 kg/m . Vital signs reviewed by this provider. APPEARANCE Well appearing, alert, in no acute distress, well-hydrated, well nourished. EYES PERRLA, conjunctiva and sclera normal. EARS External ears normal, canals clear NOSE/SINUS Nares normal. Septum midline. Mucosa normal. No drainage or sinus tenderness. THROAT normal, no erythema NECK Supple, no adenopathy; thyroid symmetric, normal size, no bruits EXTREMITIES Extremities normal, No deformities, No skin discoloration, and No edema NEURO Awake, alert and oriented x 3, Cranial nerves II-XII grossly intact, Reflexes symmetrical, Normal gait, No involuntary motions., and negative findings: speech normal, mental status intact, cranial nerves 2-12 intact, gait, including heel, toe, and tandem walking normal, Romberg negative, muscle tone normal, muscle strength normal, rapid alternating movements normal, finger to nose normal, reflexes normal and symmetric, plantar response downgoing bilaterally SKIN Skin color, texture, turgor normal, no suspicious rashes or lesions to exposed skin Depression Screening Never done Anxiety Screening Never done Shingrix Vaccine(1 of 2) Never done RSV Vaccine(1 - 1-dose 60+ series) Never done Pneumococcal Vaccine: 65+(2 of 2 - PCV) due on 11/23/2019 BP Controlled (<130/80) due on 07/04/2022 Dilated Retinal Exam due on 08/10/2022 Advance Directive Discussion Never done HbA1C due on 11/23/2023 Covid-19 Vaccine( - 2022-24 season) Never done Influenza Vaccine(1) due on 12/02/2023 Diabetic Foot Exam due on 07/08/2024 Annual PCP Team Chronic Disease Visit due on 08/09/2024 Urine Albumin:Creatinine Ratio due on 08/22/2024 LDL Cholesterol due on 08/22/2024 Colorectal Cancer Screening due on 09/12/2028 DTaP,Tdap,Td Vaccine(2 - Td or Tdap) due on 11/22/2028 Abdominal Aortic Aneurysm Screening Completed Hepatitis C Screening Completed ASSESSMENT/PLAN: 1. Muscle spasms of both lower extremities - ICD9: 728.85, ICD10: M62.838 (primary diagnosis) - will change muscle relaxer to see if this helps - check blood work today - follow-up as scheduled in December- may consider increasing gabapentin - stop Flexeril and switch to Zanaflex - TIZANIDINE 2 MG TABLET 2. Type 2 diabetes mellitus with peripheral neuropathy (HCC) - ICD9: 250.60, 357.2, ICD10: E11.42 - HEMOGLOBIN A1C - COMPREHENSIVE METABOLIC PANEL - COMPLETE BLOOD COUNT AND DIFFERENTIAL - follow-up in December as scheduled 3. Loss of taste - ICD9: 781.1, ICD10: R43.2 - possible due to hx of smoking vs def vs related to medication - VITAMIN B12 - ZINC BLD - can refer to [facility] if labs unrevealing for more in depth taste testing Audrey PodlogIRINEO kwan.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 SPECIALIST Prescription instructions reviewed with patient as applicable. Patient advised if symptoms do not improve or if symptoms worsen sooner, to contact their primary care physician. Potential red flag symptoms discussed with the patient. Reviewed appropriate action plan to take if red flag symptoms occur. Patient agreeable to treatment plan. Medical Decision Making: Problems: Moderate: New problem with uncertain prognosis Data: Unique test(s) ordered: 3+ Risk: Moderate: Drug management Medical Decision Making Level: 4 - Moderate documented in this encounter [facility] 12-04-2023 Instructions Rao Hillman - 12/04/2023 10:06 AM EDT Diabetes Foot Care Instructions When you have diabetes, proper foot care is very important. Poor foot care may lead to amputation of a foot or leg. As a person with diabetes, you are more vulnerable to foot problems, because diabetes can damage your nerves and reduce blood flow to your feet. Here are some diabetes foot care tips to follow: Wash and Dry Your Feet Daily Use mild soaps Use warm water Pat your skin dry; do not rub. Thoroughly dry your feet. After washing, use lotion on your feet to prevent cracking. Do not put lotion between your toes. Examine Your Feet Each Day Check the tops and bottoms of your feet. Have someone else look at your feet if you cannot see them. Check for dry, cracked skin. Look for blisters, cuts, scratches, or other sores. Check for redness, increased warmth, or tenderness when touching any area of your feet. Check for ingrown toenails, corns, and calluses. If you get a blister or sore from your shoes, do not pop it. Apply a bandage and wear a different pair of shoes. Take Care of Your Toenails Cut toenails after bathing, when they are soft. Cut toenails straight across and smooth with a nail file. Avoid cutting into the corners of toes. Do not cut cuticles. If you have neuropathy (or decreased sensation in your feet) a paste up worker should always cut your toenails. Be Careful When Exercising Walk and exercise in comfortable shoes. Do not exercise when you have open sores on your feet. Protect Your Feet With Shoes and Socks Never go barefoot. Always protect your feet by wearing shoes or hard-soled slippers or footwear. Avoid shoes with high heels and pointed toes. Avoid shoes that expose your toes or heels (such as open-toed shoes or sandals). These types of shoes increase your risk for injury and potential infections. Try on new footwear with the type of socks you usually wear. Do not wear new shoes for more than an hour at a time. Change your socks daily. Look and feel inside your shoes before putting them on to make sure there are no foreign objects or rough areas. Avoid tight socks. Wear natural-fiber socks (cotton, wool, or a cotton-wool blend). Wear special shoes if your health care provider recommends them. Wear shoes/boots that will protect your feet from various weather conditions (cold, moisture, etc.). Make sure your shoes fit properly. If you have neuropathy (nerve damage), you may not notice that your shoes are too tight. Perform the footwear test described below. Footwear Test Use this simple test to see if your shoes fit correctly: Stand on a piece of paper. (Make sure you are standing and not sitting, because your foot changes shape when you stand.) Trace the outline of your foot. Trace the outline of your shoe. Compare the tracings: Is the shoe too narrow? Is your foot crammed into the shoe? The shoe should be at least 1/2 inch longer than your longest toe and as wide as your foot. Proper Shoe Choices The following types of shoes are best for people with diabetes Closed toes and heels Leather uppers without a seam inside At least 1/2 inch extra space at the end of your longest toe Inside of shoe should be soft with no rough areas Outer sole should be made of stiff material Shoes should be at least as wide as your feet Tips for Foot Care in Diabetes Don't wait to treat a minor foot problem if you have diabetes. Follow your health care provider's guidelines and first aid guidelines. Report foot injuries and infections to your health care provider immediately. Check water temperature with your elbow, not your foot. Do not use a heating pad on your feet. Do not cross your legs. Do not self-treat your corns, calluses, or other foot problems. Go to your health care provider or paste up worker to treat these conditions. documented in this encounter [facility] 12-04-2023 Note HNO ID: [id number] Author: RAO HILLMAN, ? Service: ? Author Type: Physician Type: Progress Notes Filed: 12/04/2023 11:04 Note Text: Last saw pcp: 08/10/23 Subjective: Patient presents to clinic c/o painful toenails. They state that the nails are especially painful with shoe gear and pressure. Patient states that nails 1-5 b/l are painful. Patient also complains of painful callus of both feet but the most painful is the left 5th toe. Patient admits to being diabetic and states that their blood sugar was 135 mg/dL this AM. No other pedal complaints at this time. Patient states no change in medications or medical history since last visit. Objective: Patient presents to clinic ambulating in diabetic shoe Vasc: DP and PT pulses are nonpalpable bilateral. CFT is less than 5 seconds bilateral. Skin temperature is warm to cool proximal to distal bilateral. There is no edema or varicosities noted. Neuro: Protective sensation is absent to the foot and toes when tested with the 5.07 SWM bilateral. Vibratory sensation is absent at the hallux IPJ bilateral. The hallux is downgoing bilateral. Derm: Nails 1-5 b/l are painful, discolored-yellow, thick, crumbly, dystrophic and with subungal debris. Skin is of normal turgor, texture and hair growth is absent bilateral. There are callus to left hallux, left 4th metatarsal and left 5th metatarsal. No underlying ulceration. Ortho: Muscle strength is 5/5 for all pedal groups tested. Ankle joint DF is decreased with the knee extended with no pain or crepitus noted. 1st MPJ ROM is decreased bilateral. Assessment: (E08.42) Diabetic polyneuropathy associated with diabetes mellitus due to underlying condition (HCC) (primary encounter diagnosis) (B35.1) Onychomycosis (M79.675) Pain in toe of left foot (M79.674) Pain in toe of right foot (L84) Callus of foot Plan: Patient was seen and evaluated. Nails 1-5 bilateral were debrided in length and thickness. Callus reduced to left hallux, left 4th metataral and left 5th metatarsal with 15 blade and dremmel. Patient was instructed on the continued importance of diabetic foot care along with proper diet and keeping their blood sugar under control to prevent complications. Stressed the importance of avoiding barefoot walking, wearing good shoes and inspection of feet daily. Patient is to RTC in 3-4 months. Discussed restpain in b/l lower extremity. He is going to discuss this with his pcp. Had vascular testing done in May . Rao Hillman DPM [facility] 12-04-2023 History of Present illness Narrative Last saw pcp: 08/10/23 Subjective: Patient presents to clinic c/o painful toenails. They state that the nails are especially painful with shoe gear and pressure. Patient states that nails 1-5 b/l are painful. Patient also complains of painful callus of both feet but the most painful is the left 5th toe. Patient admits to being diabetic and states that their blood sugar was 135 mg/dL this AM. No other pedal complaints at this time. Patient states no change in medications or medical history since last visit. Objective: Patient presents to clinic ambulating in diabetic shoe Vasc: DP and PT pulses are nonpalpable bilateral. CFT is less than 5 seconds bilateral. Skin temperature is warm to cool proximal to distal bilateral. There is no edema or varicosities noted. Neuro: Protective sensation is absent to the foot and toes when tested with the 5.07 SWM bilateral. Vibratory sensation is absent at the hallux IPJ bilateral. The hallux is downgoing bilateral. Derm: Nails 1-5 b/l are painful, discolored-yellow, thick, crumbly, dystrophic and with subungal debris. Skin is of normal turgor, texture and hair growth is absent bilateral. There are callus to left hallux, left 4th metatarsal and left 5th metatarsal. No underlying ulceration. Ortho: Muscle strength is 5/5 for all pedal groups tested. Ankle joint DF is decreased with the knee extended with no pain or crepitus noted. 1st MPJ ROM is decreased bilateral. Assessment: (E08.42) Diabetic polyneuropathy associated with diabetes mellitus due to underlying condition ([facility]) (primary encounter diagnosis) (B35.1) Onychomycosis (M79.675) Pain in toe of left foot (M79.674) Pain in toe of right foot (L84) Callus of foot Plan: Patient was seen and evaluated. Nails 1-5 bilateral were debrided in length and thickness. Callus reduced to left hallux, left 4th metataral and left 5th metatarsal with 15 blade and dremmel. Patient was instructed on the continued importance of diabetic foot care along with proper diet and keeping their blood sugar under control to prevent complications. Stressed the importance of avoiding barefoot walking, wearing good shoes and inspection of feet daily. Patient is to RTC in 3-4 months. Discussed restpain in b/l lower extremity. He is going to discuss this with his pcp. Had vascular testing done in May . Rao Hillman DPM [facility]B ROOMING INTAKE FLOWSHEET DATA Patient presents with: Left Foot - Established Patient, Follow Up, Callous, Hammer Toe, Pain Right Foot - Established Patient, Follow Up, Callous Bekah Flynn LPN documented in this encounter [facility] 12-04-2023 Note HNO ID: [id number] Author: BEKAH FLYNN LPN Service: ? Author Type: LICENSED NURSE Type: Progress Notes Filed: 12/04/2023 11:04 Note Text: AMB ROOMING INTAKE FLOWSHEET DATA Patient presents with: Left Foot - Established Patient, Follow Up, Callous, Hammer Toe, Pain Right Foot - Established Patient, Follow Up, Callous Bekah Flynn LPN [facility] 11-27-2023 Telephone encounter Note Prescription Refill Information The patient has been identified by name and date of : Yes Caregiver verified no other encounters exist for this prescription request: Yes Caregiver confirmed with patient/requestor that no other refills are due, in the near future, with this provider at this time: Yes The last office visit in the department: 08/10/23 Does the patient have a future office visit with this provider/department: Yes Requested Prescriptions Pending Prescriptions Disp Refills cyclobenzaprine (FLEXERIL) 5 mg tablet 60 tablet 2 Sig: Take 1-2 tablets at bedtime as needed for muscle spasms Ebony Samuels November 27, 2023 11:27 AM [facility] 11-27-2023 Miscellaneous Notes Prescription Refill Information The patient has been identified by name and date of : Yes Caregiver verified no other encounters exist for this prescription request: Yes Caregiver confirmed with patient/requestor that no other refills are due, in the near future, with this provider at this time: Yes The last office visit in the department: 08/10/23 Does the patient have a future office visit with this provider/department: Yes Requested Prescriptions Pending Prescriptions Disp Refills cyclobenzaprine (FLEXERIL) 5 mg tablet 60 tablet 2 Sig: Take 1-2 tablets at bedtime as needed for muscle spasms Ebony Samuels November 27, 2023 11:27 AM documented in this encounter [facility] 11-05-2023 Telephone encounter Note Prescription Refill Information The patient has been identified by name and date of : Yes Caregiver verified no other encounters exist for this prescription request: Yes Caregiver confirmed with patient/requestor that no other refills are due, in the near future, with this provider at this time: Yes The last office visit in the department: 08/10/2023 Does the patient have a future office visit with this provider/department: Yes Requested Prescriptions Pending Prescriptions Disp Refills empagliflozin (JARDIANCE) 25 mg tablet 90 tablet 1 Sig: Take 1 tablet by mouth once daily. Take 1 tablet once daily in the morning Vijaya Razo November 05, 2023 10:54 AM [facility] 11-05-2023 Miscellaneous Notes Prescription Refill Information The patient has been identified by name and date of : Yes Caregiver verified no other encounters exist for this prescription request: Yes Caregiver confirmed with patient/requestor that no other refills are due, in the near future, with this provider at this time: Yes The last office visit in the department: 08/10/2023 Does the patient have a future office visit with this provider/department: Yes Requested Prescriptions Pending Prescriptions Disp Refills empagliflozin (JARDIANCE) 25 mg tablet 90 tablet 1 Sig: Take 1 tablet by mouth once daily. Take 1 tablet once daily in the morning Vijaya Lopezefrain November 05, 2023 10:54 AM documented in this encounter [facility] 09-25-2023 History of Present illness Narrative Last saw pcp: 08/10/23 Subjective: Patient presents to clinic c/o painful toenails. They state that the nails are especially painful with shoe gear and pressure. Patient states that nails 1-5 b/l are painful. Patient admits to being diabetic. Here for callus of left hallux. No other pedal complaints at this time. Patient states no change in medications or medical history since last visit. Objective: Patient presents to clinic ambulating in diabetic shoes Vasc: DP and PT pulses are nonpalpable bilateral. CFT is less than 5 seconds bilateral. Skin temperature is warm to cool proximal to distal bilateral. There is mild edema or varicosities noted. Neuro: Protective sensation is decreased to the foot and toes when tested with the 5.07 SWM bilateral. Vibratory sensation is absent at the hallux IPJ bilateral. The hallux is downgoing bilateral. Derm: Nails 1-5 b/l are painful, discolored-yellow, thick, crumbly, dystrophic and with subungal debris. Skin is of normal turgor, texture and hair growth is absent bilateral. There are callus to left hallux. No scattered porokeratosis to b/l forefoot. No ulcerations, scars, verruca or other lesions noted. Ortho: Muscle strength is 5/5 for all pedal groups tested. Ankle joint DF is decreased with the knee extended with no pain or crepitus noted. 1st MPJ ROM is decreased bilateral. Assessment: (L84) Callus of foot (primary encounter diagnosis) (E08.42) Diabetic polyneuropathy associated with diabetes mellitus due to underlying condition ([facility]) (B35.1) Onychomycosis (M79.675) Pain in toe of left foot (M79.674) Pain in toe of right foot Plan: Patient was seen and evaluated. Nails 1-5 bilateral were debrided in length and thickness. Callus to left hallux sharply debrided with 15 blade and dremmel. No ulceration. He had similar issue to right hallux but would often develop ulceration. He was successfully treated with hallux ipj arthroplasty. Discussed hallux ipj arthroplasty for left foot. In absence of any wounds or ulcerations in a patient with history of pad and smoking, would favor continued conservative care unless he were to develop ulceration. Patient in agreement. Patient was instructed on the continued importance of diabetic foot care along with proper diet and keeping their blood sugar under control to prevent complications. Stressed the importance of avoiding barefoot walking, wearing good shoes and use of lotion to feet. Smoking cessation discussed. Scattered porokeratosis of b/l feet reduced with dremmel Patient is to RTC in 2 months Rao Hillman DPM Patient presents with: Left Foot - Established Patient, Follow Up, Callous, Hammer Toe Right Foot - Established Patient, Follow Up, Callous Patient presents for 2 month follow up callus and hammertoe. [facility] 07/23/23 documented in this encounter [facility] 09-24-2023 Instructions Rao Hillman - 09/24/2023 10:22 AM EDT Diabetes Foot Care Instructions When you have diabetes, proper foot care is very important. Poor foot care may lead to amputation of a foot or leg. As a person with diabetes, you are more vulnerable to foot problems, because diabetes can damage your nerves and reduce blood flow to your feet. Here are some diabetes foot care tips to follow: Wash and Dry Your Feet Daily Use mild soaps Use warm water Pat your skin dry; do not rub. Thoroughly dry your feet. After washing, use lotion on your feet to prevent cracking. Do not put lotion between your toes. Examine Your Feet Each Day Check the tops and bottoms of your feet. Have someone else look at your feet if you cannot see them. Check for dry, cracked skin. Look for blisters, cuts, scratches, or other sores. Check for redness, increased warmth, or tenderness when touching any area of your feet. Check for ingrown toenails, corns, and calluses. If you get a blister or sore from your shoes, do not pop it. Apply a bandage and wear a different pair of shoes. Take Care of Your Toenails Cut toenails after bathing, when they are soft. Cut toenails straight across and smooth with a nail file. Avoid cutting into the corners of toes. Do not cut cuticles. If you have neuropathy (or decreased sensation in your feet) a paste up worker should always cut your toenails. Be Careful When Exercising Walk and exercise in comfortable shoes. Do not exercise when you have open sores on your feet. Protect Your Feet With Shoes and Socks Never go barefoot. Always protect your feet by wearing shoes or hard-soled slippers or footwear. Avoid shoes with high heels and pointed toes. Avoid shoes that expose your toes or heels (such as open-toed shoes or sandals). These types of shoes increase your risk for injury and potential infections. Try on new footwear with the type of socks you usually wear. Do not wear new shoes for more than an hour at a time. Change your socks daily. Look and feel inside your shoes before putting them on to make sure there are no foreign objects or rough areas. Avoid tight socks. Wear natural-fiber socks (cotton, wool, or a cotton-wool blend). Wear special shoes if your health care provider recommends them. Wear shoes/boots that will protect your feet from various weather conditions (cold, moisture, etc.). Make sure your shoes fit properly. If you have neuropathy (nerve damage), you may not notice that your shoes are too tight. Perform the footwear test described below. Footwear Test Use this simple test to see if your shoes fit correctly: Stand on a piece of paper. (Make sure you are standing and not sitting, because your foot changes shape when you stand.) Trace the outline of your foot. Trace the outline of your shoe. Compare the tracings: Is the shoe too narrow? Is your foot crammed into the shoe? The shoe should be at least 1/2 inch longer than your longest toe and as wide as your foot. Proper Shoe Choices The following types of shoes are best for people with diabetes Closed toes and heels Leather uppers without a seam inside At least 1/2 inch extra space at the end of your longest toe Inside of shoe should be soft with no rough areas Outer sole should be made of stiff material Shoes should be at least as wide as your feet Tips for Foot Care in Diabetes Don't wait to treat a minor foot problem if you have diabetes. Follow your health care provider's guidelines and first aid guidelines. Report foot injuries and infections to your health care provider immediately. Check water temperature with your elbow, not your foot. Do not use a heating pad on your feet. Do not cross your legs. Do not self-treat your corns, calluses, or other foot problems. Go to your health care provider or paste up worker to treat these conditions. documented in this encounter [facility] 09-18-2023 Telephone encounter Note Prescription Refill Information The patient has been identified by name and date of : Yes Caregiver verified no other encounters exist for this prescription request: Yes Caregiver confirmed with patient/requestor that no other refills are due, in the near future, with this provider at this time: Yes The last office visit in the department: 08/10/2023 Does the patient have a future office visit with this provider/department: Yes Requested Prescriptions Pending Prescriptions Disp Refills rOPINIRole (REQUIP) 4 mg tablet 90 tablet 1 Sig: Take 1 tablet by mouth daily at bedtime. Vijaya Razo September 18, 2023 3:48 PM [facility] 09-18-2023 Miscellaneous Notes Prescription Refill Information The patient has been identified by name and date of : Yes Caregiver verified no other encounters exist for this prescription request: Yes Caregiver confirmed with patient/requestor that no other refills are due, in the near future, with this provider at this time: Yes The last office visit in the department: 08/10/2023 Does the patient have a future office visit with this provider/department: Yes Requested Prescriptions Pending Prescriptions Disp Refills rOPINIRole (REQUIP) 4 mg tablet 90 tablet 1 Sig: Take 1 tablet by mouth daily at bedtime. Vijaya Razo September 18, 2023 3:48 PM documented in this encounter [facility] 09-17-2023 History of Present illness Narrative Images from the original note were not included. [facility] OFFICE VISIT CONSULT 09/17/2023 Patient Name: Joshua Estes PRIMARY CARE PHYSICIAN: Tobi Sorto MD REASON FOR CONSULT: Cough REFERRING PHYSICIAN: Tobi Sorto, My final recommendations will be communicated to the requesting health care provider by way of the shared medical record for internal providers or by letter via US mail for external providers. ASSESSMENT/PLAN 1) Cough and Wheezing: Suspect Mild Intermittent. Peripheral Eosinophilia. Spirometry: suggestive of restrictive physiology. Mildly elevated FeNO - obtain RAST testing, total IgE and Aspergillus specific IgE - Will start ICS+LABA Wixela 500/50 1 puff BID. - Continue as needed albuterol HFA - Inhaler technique demonstrated to the patient, patient was asked to repeat the technique in the clinic. - We discussed how to maintain an asthma diary and how to avoid triggers. - Tolerance to inhalers checked. No side effects noted. - Will obtain lung volumes and diffusion capacity n - Above testing - Start Singular 3) Current Smoker: Will to quit. 1 pack last him 2 weeks. Smoking since the age of 15. - Cessation encouraged. - Physiologic and physical aspects of tobacco addiction as well as strategies for quitting were discussed. - Counseling was given focusing on the harmful effects of this addiction especially given the patient's medical condition(s) which will be worsened because of the chemicals in tobacco. - Counseling was given 6 mins - Recommended to called 1-800-QUIT NOW 4) Suspect JOSE - Will discuss next visit. Follow Up 3 months Patient instructed to contact me in case of symptoms, imaging and lab results. I discussed the plan in detail with the patient and the patient verbalizes understanding and is in agreement. Alondra Broderick MD, Staff, Respiratory [facility] CHIEF COMPLAINT: Cough HISTORY OF PRESENT ILLNESS: Joshua Estes is a 68 year-old male medical history of PACs, aneurysm right common femoral artery, history of DVT, peripheral artery disease, history of tobacco, use, restless leg syndrome, hypertension, and hyperlipedemia Patient referred to clinic complains of cough which has been going on for a couple of months, started after a cold and sinus infection. Patient was treated for a sinus infection in July/2023 with antibiotics. Symptoms resolve of cough persisted. Cough is consistent clear phlegm, worse in the night and while lying down. CXR: granulomatous disease in the right lower. Dry cough mostly, sometimes clear phlegm No dyspnea. Notices mild wheezing espcially at bed time Uses albuterol especially at night which seems to help. Using it everyday. Denies any personal or family history of asthma. Thinks he may have allergies. Current smoker, 1 pack will last him for two weeks. Smoking since the age if 15 No difficulty with ADLs ASTHMA CONTROL TEST Date: 09/17/2023 In the last 4 weeks, how much of the time did your asthma keep you from getting as much done at work or home that you wanted to do? Some of the time (3) In the last 4 weeks, how often have you had shortness of breath? Not at all (5) In the last 4 weeks, how often did your asthma symptoms (wheezing, coughing, shortness of breath, chest tightness or pain) wake you up at night or earlier than usual? 2 or 3 nights per week (2) In the last 4 weeks, how often have you used your rescue inhaler or nebulizer medication (such as Albuterol, Proventil, Ventolin, Maxair, Xoponex, or Primatene Mist)? 1 or 2 times per day (2) In the last 4 weeks, how would you rate your asthma control? Poorly controlled (2) Total: 14 MMRC Dyspnea Scale: 0. Not troubled by breathlessness except on strenuous exercise Short of breath when hurrying or walking up a slight hill Walks slower than contemporaries on the level because of breathlessness, or has to stop for breath when walking at own pace Stops for breath after about 100 m or after a few minutes on the level Too breathless to leave the house, or breathless when dressing or undressing Social and Personal History: - Smoking: Current smoker, 1 pack will last him for two weeks. Smoking since the age if 15 Other Environmental Exposure History: Pets: No birds Asbestos: No significant exposure Silica: No significant exposure [place]: No significant exposure Mold: No significant exposure Hot tub: No significant exposure Fumes: No significant exposure Metal dust: No significant exposure Beryllium: No significant exposure Dust: No significant exposure Medications: No relevant exposure for interstitial lung diseases FAMILY HISTORY Problem Relation Age of Onset other (liver cancer) Mother age 34 Cancer Father age 54 Diabetes Brother Alive age 68 Asthma Other Alive age 41 No Known Problems Maternal Grandmother No Known Problems Maternal Grandfather No Known Problems Paternal Grandmother No Known Problems Paternal Grandfather Social History Tobacco Use Smoking status: Every Day Packs/day: 0.25 Years: 46.00 Additional pack years: 0.00 Total pack years: 11.50 Types: Cigarettes Last attempt to quit: 12/03/2015 Years since quittin.7 Smokeless tobacco: Never Tobacco comments: Started to smoke again, 1/2 pack a week Vaping Use Vaping Use: Never used Substance Use Topics Alcohol use: No Drug use: No ALLERGIES ALLERGIES No Known Allergies CURRENT OUTPATIENT MEDICATIONS atorvastatin (LIPITOR) 40 mg tablet Take 1 tablet by mouth once daily. For cholesterol. hydroCHLOROthiazide 50 mg tablet Take 1 tablet by mouth once daily. cyclobenzaprine (FLEXERIL) 5 mg tablet Take 1-2 tablets at bedtime as needed for muscle spasms glimepiride (AMARYL) 4 mg tablet Take 2 tablets by mouth daily with breakfast. metFORMIN (GLUCOPHAGE) 1,000 mg tablet Take 1 tablet by mouth two times a day with meals. . losartan (COZAAR) 100 mg tablet Take 1 tablet by mouth once daily. gabapentin (NEURONTIN) 300 mg capsule Take one capsule three times a day for 30 days SILVASORB GlER APPLY TOPICALLY TO AFFECTED AREA EVERY DAY empagliflozin (JARDIANCE) 25 mg tablet Take 1 tablet by mouth once daily. Take 1 tablet once daily in the morning albuterol HFA (VENTOLIN HFA) 90 mcg/actuation inhaler Inhale 2 Puffs as instructed every 4 hours as needed for wheezing/shortness of breath. rOPINIRole (REQUIP) 4 mg tablet Take 1 tablet by mouth daily at bedtime. Lactobacillus acidophilus (FLORAJEN ACIDOPHILUS) 20 billion cell capsule Take 1 capsule by mouth once daily. (Patient not taking: Reported on 07/23/2023) blood sugar diagnostic (TRUE METRIX GLUCOSE TEST STRIP) test strip Test once daily DX: E11.42, E11.29 Blood Pressure Monitor (BLOOD PRESSURE KIT) 1 Each once daily. pentoxifylline ER (TRENTAL) 400 mg CR tablet Take 1 tablet by mouth three times daily with meals. Blood-Glucose Meter (TRUE METRIX AIR GLUCOSE METER) misc 1 Device twice daily. Lancets lancets Test once daily DX: E11.42. E11.29 insulin needles, DISPOSABLE, (BD INSULIN PEN NEEDLE UF) 31 gauge x 5/16 ndle 1 Each once daily. aspirin 81 mg chewable tablet Take 1 tablet by mouth once daily. REVIEW OF SYSTEMS The remainder of review of systems was negative. PHYSICAL EXAM BP: 128/88 Pulse: 75 SpO2: 95 % General appearance: Well appearing, alert, in no acute distress Eyes: PERRLA Nose/Sinuses: Nares normal. Septum midline. Mucosa normal. No drainage or sinus tenderness. Oropharynx: Lips, mucosa, and tongue normal, teeth and gums normal, oropharynx normal Neck: no palpable masses Lungs: Lungs clear to auscultation. No wheezing, rhonchi, rales Heart: RRR without murmur, gallop, or rubs. No ectopy , normal peripheral pulses, no peripheral edema Abdomen: Abdomen soft, non-tender. Bowel sounds normal. No masses, organomegaly Extremities: Normal, Warm, No cyanosis, no clubbing, No edema, and Nontender Neuro: no focal weakness Psychiatry: Alert, Oriented X 3 DATA Diagnostic tests reviewed for today's visit, including labs imaging and other relevant testing were personally reviewed and analysed by me: Most recent labs and imaging results. XR CHEST 2V FRONTAL/LAT Result Date: 08/11/2023 IMPRESSION: Stable exam with no acute radiographic abnormality. Passenger Flagman: HORTENCIA Transcribe Date/Time: Aug 11 2023 5:13P Dictated by : SANTOSH BEACH MD This examination was interpreted and the report reviewed and electronically signed by: SANTOSH BEACH MD on Aug 11 2023 5:16PM EST XR CHEST 2V FRONTAL/LAT Result Date: 11/20/2022 IMPRESSION: No acute radiographic abnormality. Passenger Flagman: HORTENCIA Transcribe Date/Time: Nov 20 2022 1:03P Dictated by : SHERRON PRAJAPATI MD This examination was interpreted and the report reviewed and electronically signed by: SHERRON PRAJAPATI MD on Nov 20 2022 1:08PM EST No results found. PULMONARY TESTING PFT Date: 08/22/2023 IMPRESSION: Spirometry is suggestive of restrictive physiology. Recent Results (from the past 8760 hour(s)) ECG COMPLETE Collection Time: 08/10/23 9:24 AM Result Value Ventricular Rate 76 Atrial Rate 76 P-R Interval 162 QRS Duration 84 QT Interval 390 QTC Calculation (Bazett) 438 Calculated P Houston 18 Calculated R Houston -48 Calculated T Houston 23 Impression SINUS RHYTHM WITH PREMATURE ATRIAL COMPLEXES IN A PATTERN OF BIGEMINY LEFT AXIS DEVIATION LOW VOLTAGE QRS, CONSIDER PULMONARY DISEASE, PERICARDIAL EFFUSION, OR NORMAL VARIANT INFERIOR MYOCARDIAL INFARCTION , AGE UNDETERMINED POSSIBLE ANTEROLATERAL INFARCTION , AGE UNDETERMINED ABNORMAL ECG Recent Results (from the past 63542 hour(s)) ECHO Collection Time: 09/04/23 11:06 AM Impression CONCLUSIONS: - Technically difficult exam due to body habitus. - Exam indication: Abnormal ECG - The left ventricle is small. Left ventricular systolic function is normal. EF = 55 5% (visual est.) Grade I left ventricular diastolic dysfunction. - The right ventricle is normal in size. Right ventricular systolic function is normal. - There are no significant valvular abnormalities. - Definity unavailable. - Exam was compared with the prior echocardiographic exam performed on 12/07/2015, no significant change. * * * Final * * * # Immunizations: COVID/Influenza/Pneumococcal/TDAP if not received prior/Shingles Immunization History Administered Date(s) Administered influenza (IIV3) vaccine, age 3+ yr, trivalent (AFLURIA, FLULAVAL, FLUVIRIN, FLUZONE) 01/02/2019 influenza (IIV3) vaccine, trivalent (AFLURIA, FLULAVAL, FLUVIRIN, FLUZONE) 01/31/2017 influenza (IIV4) vaccine, age 6 mo - 64 yr, quadrivalent, PF (AFLURIA, FLUARIX, FLULAVAL, FLUZONE) 12/09/2015 pneumococcal polysaccharide (PPV23) vaccine, 23 valent (PNEUMOVAX 23) 11/22/2018 tetanus diphtheria pertussis (Tdap) vaccine, age 7+ yr (ADACEL, BOOSTRIX) 11/22/2018 Verbal and/or written health teaching given to patient with > 40 minutes spent face to face with more than half of this for disease counseling. Alondra Broderick MD, Staff, Respiratory [facility] CC: MD Macario Aburto Christopher B,* documented in this encounter [facility] 09-10-2023 Telephone encounter Note Future office visit: 01/08/2024 Margret Sutton LPN September 10, 2023 2:07 PM [facility] 09-10-2023 Miscellaneous Notes Future office visit: 01/08/2024 Margret Sutton LPN September 10, 2023 2:07 PM Prescription Refill Information The patient has been identified by name and date of : Yes Caregiver verified no other encounters exist for this prescription request: Yes Caregiver confirmed with patient/requestor that no other refills are due, in the near future, with this provider at this time: Yes The last office visit in the department: 08-10-23 Does the patient have a future office visit with this provider/department: Yes Requested Prescriptions Pending Prescriptions Disp Refills atorvastatin (LIPITOR) 40 mg tablet 90 tablet 1 Sig: Take 1 tablet by mouth once daily. For cholesterol. Patricia Samuels September 10, 2023 11:31 AM documented in this encounter [facility] 09-10-2023 Telephone encounter Note Prescription Refill Information The patient has been identified by name and date of : Yes Caregiver verified no other encounters exist for this prescription request: Yes Caregiver confirmed with patient/requestor that no other refills are due, in the near future, with this provider at this time: Yes The last office visit in the department: 08-10-23 Does the patient have a future office visit with this provider/department: Yes Requested Prescriptions Pending Prescriptions Disp Refills atorvastatin (LIPITOR) 40 mg tablet 90 tablet 1 Sig: Take 1 tablet by mouth once daily. For cholesterol. Patricia Regino Samuels September 10, 2023 11:31 AM [facility] 09-07-2023 Telephone encounter Note Patient stated he will schedule pulmonary consult today in [facility]. He will check with his insurance regarding at home sleep test and will call back if he finds it would be covered. [facility] 09-07-2023 Miscellaneous Notes Patient stated [facility] He will check with his insurance regarding at home sleep test and will call back if he finds it would be covered. Patient is bringing another patient in Sunday for her appointment with Dr Sorto. I dont see an OV for Sunday, but I have openings tomorrow if he would like appointment to discuss results. Pt called and is notified of providers results and instructions. Pt voices understanding. He states he will hold off on the home JOSE test for now. Asked if he wanted to be transferred to schedule for Pulmonology and he said he would be in on Sunday. I do not see an appointment with provider on Sunday, or any other appointments that day. Fern Stephen, SHAMAR Repeat blood counts shows persistently elevated hemoglobin and hematocrit. These levels are mildly elevated and other cell lines are normal. We often see this in patients who smoke or who have undiagnosed or untreated sleep apnea. I would recommend quitting smoking at this time. If he would like help with this, please let me know. If he is having symptoms of tiredness during the day, loud snoring, or if he stops breathing in his sleep I would recommend checking a home sleep apnea study to evaluate for JOSE. Please let me know if he would like orders for this. Exhaled nitric oxide study is moderately elevated which is consistent with underlying inflammation. With abnormal PFTs for possible restrictive lung disease, would recommend referral to pulmonology for further workup. documented in this encounter [facility] 09-04-2023 Telephone encounter Note Patient is bringing another patient in Sunday for her appointment with Dr Sorto. [facility] 09-04-2023 Telephone encounter Note I dont see an OV for Sunday, but I have openings tomorrow if he would like appointment to discuss results. [facility] 09-04-2023 Telephone encounter Note Pt called and is notified of providers results and instructions. Pt voices understanding. He states he will hold off on the home OJSE test for now. Asked if he wanted to be transferred to schedule for Pulmonology and he said he would be in on Sunday. I do not see an appointment with provider on Sunday, or any other appointments that day. Fern Stephen, SHAMAR [facility] [facility] 09[facility]23 Telephone encounter Note Repeat blood counts shows persistently elevated hemoglobin and hematocrit. These levels are mildly elevated and other cell lines are normal. We often see this in patients who smoke or who have undiagnosed or untreated sleep apnea. I would recommend quitting smoking at this time. If he would like help with this, please let me know. If he is having symptoms of tiredness during the day, loud snoring, or if he stops breathing in his sleep I would recommend checking a home sleep apnea study to evaluate for JOSE. Please let me know if he would like orders for this. Exhaled nitric oxide study is moderately elevated which is consistent with underlying inflammation. With abnormal PFTs for possible restrictive lung disease, would recommend referral to pulmonology for further workup. [facility] 09-04-2023 Telephone encounter Note Patient was notified Alondra Gillette MA [facility] 09-04-2023 Miscellaneous Notes Patient was notified Alondra Gillette MA Rx sent. Patient has been identified by name and date of : Yes, Patient phones for refill(s): Requested Prescriptions Pending Prescriptions Disp Refills glimepiride (AMARYL) 4 mg tablet 180 tablet 1 Sig: Take 2 tablets by mouth daily with breakfast. Date of last office visit in primary care: 08/10/2023 Date of next office visit in primary care: 01/08/2024 Please advise. Thank you. Rossana Moreland LPN. Patient is requesting medication that is . Patient requesting glimepiride (AMARYL) 4 mg tablet ( PHARMACY: [facility]. documented in this encounter [facility] 09-04-2023 Telephone encounter Note Rx sent. [facility] 09-04-2023 Telephone encounter Note Patient has been identified by name and date of : Yes, Patient phones for refill(s): Requested Prescriptions Pending Prescriptions Disp Refills glimepiride (AMARYL) 4 mg tablet 180 tablet 1 Sig: Take 2 tablets by mouth daily with breakfast. Date of last office visit in primary care: 08/10/2023 Date of next office visit in primary care: 01/08/2024 Please advise. Thank you. Rossana Moreland LPN. [facility] 09-04-2023 Telephone encounter Note Patient is requesting medication that is . Patient requesting glimepiride (AMARYL) 4 mg tablet ( PHARMACY: [facility]. [facility] 09-04-2023 Telephone encounter Note Patient has been identified by name and date of : Patient phones for refill(s): Requested Prescriptions Pending Prescriptions Disp Refills hydroCHLOROthiazide 50 mg tablet 90 tablet 1 Sig: Take 1 tablet by mouth once daily. cyclobenzaprine (FLEXERIL) 5 mg tablet 60 tablet 2 Sig: Take 1-2 tablets at bedtime as needed for muscle spasms Date of last office visit in primary care: 08/10/2023 Date of next office visit in primary care: 01/08/2024 Please advise. Thank you. Magdalena Merrill. [facility] 09-04-2023 Miscellaneous Notes Patient has been identified by name and date of : Patient phones for refill(s): Requested Prescriptions Pending Prescriptions Disp Refills hydroCHLOROthiazide 50 mg tablet 90 tablet 1 Sig: Take 1 tablet by mouth once daily. cyclobenzaprine (FLEXERIL) 5 mg tablet 60 tablet 2 Sig: Take 1-2 tablets at bedtime as needed for muscle spasms Date of last office visit in primary care: 08/10/2023 Date of next office visit in primary care: 01/08/2024 Please advise. Thank you. Magdalena Merrill. documented in this encounter [facility] 09-03-2023 Telephone encounter Note Completed at Pulmonary appointment today. Marleny Raygoza LPN [facility] 09-03-2023 Miscellaneous Notes Completed at Pulmonary appointment today. Marleny Raygoza LPN Respiratory therapy requesting exhaled nitric oxide testing for patient with SOB and cough. New order placed. documented in this encounter [facility] 09-03-2023 Procedure note Associated Ord er(s): NITRIC OXIDE, EXHALED RESPIRATORY THERAPY ORAL EXHALED NITRIC OXIDE SERVICE DATE: 09/03/2023 SERVICE TIME: 10:04 AM Oral Exhaled Nitric Oxide measurement: 22.0 (ppb) Normal: Adult 5-20 ppb, pediatric (<12 years) 5-15 ppb High Normal / Increased: Adult 20-35 ppb, pediatric (<12 years) 15-25 ppb Moderately raised exhaled Nitric Oxide may indicate underlying inflammation, but note that: Cold and influenza can raise exhaled Nitric Oxide and some patients have higher baseline exhaled Nitric Oxide levels than others. High: Adult >35 ppb, pediatric (<12 years) >25 ppb Indicative of ongoing eosinophilic inflammation. Symptomatic patient likely to respond to steroids. Possible causes (if already on steroids): Poor compliance, recent allergen exposure, steroid dose inadequate, and steroid resistance. Note that not all patients with high exhaled nitric oxide levels display symptoms. Oral Exhaled Nitric Oxide measurement (Previous Encounters) Test Date Oral Exhaled Nitric Oxide (ppb) 09/03/2023 22.0 NAME: GHASSAN Lopez PATIENT NAME: Joshua Estes DATE: September 03, 2023 TIME: 10:04 AM [facility] 09-03-2023 Procedure note Associated Ord er(s): NITRIC OXIDE, EXHALED RESPIRATORY THERAPY ORAL EXHALED NITRIC OXIDE SERVICE DATE: 09/03/2023 SERVICE TIME: 10:04 AM Oral Exhaled Nitric Oxide measurement: 22.0 (ppb) Normal: Adult 5-20 ppb, pediatric (<12 years) 5-15 ppb High Normal / Increased: Adult 20-35 ppb, pediatric (<12 years) 15-25 ppb Moderately raised exhaled Nitric Oxide may indicate underlying inflammation, but note that: Cold and influenza can raise exhaled Nitric Oxide and some patients have higher baseline exhaled Nitric Oxide levels than others. High: Adult >35 ppb, pediatric (<12 years) >25 ppb Indicative of ongoing eosinophilic inflammation. Symptomatic patient likely to respond to steroids. Possible causes (if already on steroids): Poor compliance, recent allergen exposure, steroid dose inadequate, and steroid resistance. Note that not all patients with high exhaled nitric oxide levels display symptoms. Oral Exhaled Nitric Oxide measurement (Previous Encounters) Test Date Oral Exhaled Nitric Oxide (ppb) 09/03/2023 22.0 NAME: GHASSAN Lopez PATIENT NAME: Joshua Estes DATE: September 03, 2023 TIME: 10:04 AM documented in this encounter [facility] 09-03-2023 History of Present illness Narrative PULM FUNCTION SMARTBLOCK: Provider: Tobi Sorto MD Assisting Tech: Dee Sparks RPFT Exhaled Nitric Oxide: 1 documented in this encounter [facility] 09-03-2023 Telephone encounter Note Respiratory therapy requesting exhaled nitric oxide testing for patient with SOB and cough. New order placed. [facility] 08-31-2023 Telephone encounter Note Patient notified [facility] Work Phone: 08-31-2023 Miscellaneous Notes Patient notified Message left for patient to return call to review results and recommendations. Dolores Jama LPN ----- Message from Tobi Sorto MD sent at 08/30/2023 4:59 PM EDT ----- Patient's heart monitor shows mostly sinus rhythm with 1 short run of ventricular tachycardia lasting just 4 beats and a total of 47 episodes of SVT with longest lasting 14 seconds. Based on these results I would recommend following up with cardiology as discussed in office. Patient still needs to complete echo as ordered and will review these results when completed. He was bradycardic in the office, so would not add on beta regan at this time. If he is asymptomatic without chest pain, palpitations, SOB I would have him keep f/u with cardiology as scheduled. If he is having new symptoms needs to call our office right away or go to the ER with severe symptoms. documented in this encounter [facility] 08-31-2023 Telephone encounter Note Message left for patient to return call to review results and recommendations. Dolores Jama LPN [facility] 08-31-2023 Telephone encounter Note ----- Message from Tobi Sorto MD sent at 08/30/2023 4:59 PM EDT ----- Patient's heart monitor shows mostly sinus rhythm with 1 short run of ventricular tachycardia lasting just 4 beats and a total of 47 episodes of SVT with longest lasting 14 seconds. Based on these results I would recommend following up with cardiology as discussed in office. Patient still needs to complete echo as ordered and will review these results when completed. He was bradycardic in the office, so would not add on beta regan at this time. If he is asymptomatic without chest pain, palpitations, SOB I would have him keep f/u with cardiology as scheduled. If he is having new symptoms needs to call our office right away or go to the ER with severe symptoms. [facility] 08-29-2023 Telephone encounter Note Patient notified. Will call into scheduling to schedule. Marleny Raygoza LPN [facility] 08-29-2023 Miscellaneous Notes Patient notified. Will call into scheduling to schedule. Marleny Raygoza LPN Attempted to call patient 2 times. Both times the line had static, difficult to hear, and call disconnected. Please try again later. PFTs negative for obstruction, but does show possible restrictive lung disease. Recommend obtaining lung volumes to confirm. documented in this encounter [facility] 08-29-2023 Telephone encounter Note Attempted to call patient 2 times. Both times the line had static, difficult to hear, and call disconnected. Please try again later. [facility] 08-28-2023 Telephone encounter Note PFTs negative for obstruction, but does show possible restrictive lung disease. Recommend obtaining lung volumes to confirm. [facility] 08-28-2023 Telephone encounter Note Patient telephoned. Went over providers message below. Patient wants to think on the injectable medication and will give the office a call back to schedule if he decides he wants to try that route. Marleny Raygoza LPN [facility] 08-28-2023 Miscellaneous Notes Patient telephoned. Went over providers message below. Patient wants to think on the injectable medication and will give the office a call back to schedule if he decides he wants to try that route. Marleny Raygoza LPN ----- Message from Audrey Packer APRN.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 SPECIALIST sent at 08/28/2023 7:39 AM EDT ----- Albumin/creatinine ratio elevated- likely due to uncontrolled blood sugars as his A1c has increased to 8.1%. Would recommend adding on GLP once a week injectable along with lower carbohydrate diet and at least 150 minutes of exercise per week. If he interested in this will need to discuss risks, benefits and possible side effects. Kidney function is down a little recommend low salt diet, avoiding NSAID products and staying well hydrated with water. Audrey Packer APRN.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 SPECIALIST documented in this encounter [facility] 08-28-2023 Telephone encounter Note ----- Message from Audrey Packer APRN.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 SPECIALIST sent at 08/28/2023 7:39 AM EDT ----- Albumin/creatinine ratio elevated- likely due to uncontrolled blood sugars as his A1c has increased to 8.1%. Would recommend adding on GLP once a week injectable along with lower carbohydrate diet and at least 150 minutes of exercise per week. If he interested in this will need to discuss risks, benefits and possible side effects. Kidney function is down a little recommend low salt diet, avoiding NSAID products and staying well hydrated with water. Audrey Packer APRN.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 SPECIALIST [facility] 08-22-2023 History of Present illness Narrative PULM FUNCTION SMARTBLOCK: Provider: Tobi Sorto MD Assisting Tech: Dee Sparks RPFT Spirometry w/BD: 1 documented in this encounter [facility] 08-17-2023 Telephone encounter Note Pt called and is notified of providers results and instructions. Pt voices understanding. Transferred to scheduled to set up appt for PFTs. Fern Stephen RN [facility] 08-17-2023 Miscellaneous Notes Pt called and is notified of providers results and instructions. Pt voices understanding. Transferred to scheduled to set up appt for PFTs. Fern Stephen RN PFTs ordered. Will add on tessalon to take PRN for cough and can use OTC mucinex for chest congestion or delsym for cough. If symptoms have not improved with the omeprazole or flonase, I would have him stop them at this point. Will see what his breathing tests show. Pt called in and reports he saw provider on 08/10/23 and was given Flonase and Omeprazole. Provider was ruling out allergies vs GERD. Pt was to call if not improving in 2-3 weeks. Provider was going to consider PFTs if no improvement. Pt states he is still coughing all day and night. He states he is bringing up a small amount of clear thick phlegm. Pt states he has been taking OTC Severe Nyquil, Chest Congestion and Cough, and Equate All Day Allergy pills. Pt asking if there was anything else the provider could give him as nothing has given him any relief. Please call and advise. documented in this encounter [facility] 08-17-2023 Telephone encounter Note PFTs ordered. Will add on tessalon to take PRN for cough and can use OTC mucinex for chest congestion or delsym for cough. If symptoms have not improved with the omeprazole or flonase, I would have him stop them at this point. Will see what his breathing tests show. [facility] 08-17-2023 Telephone encounter Note Pt called in and reports he saw provider on 08/10/23 and was given Flonase and Omeprazole. Provider was ruling out allergies vs GERD. Pt was to call if not improving in 2-3 weeks. Provider was going to consider PFTs if no improvement. Pt states he is still coughing all day and night. He states he is bringing up a small amount of clear thick phlegm. Pt states he has been taking OTC Severe Nyquil, Chest Congestion and Cough, and Equate All Day Allergy pills. Pt asking if there was anything else the provider could give him as nothing has given him any relief. Please call and advise. [facility] 08-14-2023 Telephone encounter Note Phoned patient and reviewed results and recommendations with him. Patient voiced understanding. [facility] 08-14-2023 Miscellaneous Notes Phoned patient and reviewed results and recommendations with him. Patient voiced understanding. Blood work shows high sugar in the 150's with high hemoglobin and hematocrit. Other labs are normal. I would recommend increasing water intake and working on low carb diet. Repeat CBC with peripheral smear in 3-4 weeks to see if blood counts return to normal like they did 9 months ago. documented in this encounter [facility] 08-13-2023 Telephone encounter Note Blood work shows high sugar in the 150's with high hemoglobin and hematocrit. Other labs are normal. I would recommend increasing water intake and working on low carb diet. Repeat CBC with peripheral smear in 3-4 weeks to see if blood counts return to normal like they did 9 months ago. [facility] 08-13-2023 Telephone encounter Note Patient has been identified by name and date of : Yes Patient phones for refill(s): Requested Prescriptions Pending Prescriptions Disp Refills metFORMIN (GLUCOPHAGE) 1,000 mg tablet 180 tablet 1 Sig: Take 1 tablet by mouth two times a day with meals. . losartan (COZAAR) 100 mg tablet 90 tablet 0 Sig: Take 1 tablet by mouth once daily. Date of last office visit in primary care: 08/10/2023 Date of next office visit in primary care: 01/08/2024 Please advise. Thank you. Tawny Santos MA. [facility] 08-13-2023 Miscellaneous Notes Patient has been identified by name and date of : Yes Patient phones for refill(s): Requested Prescriptions Pending Prescriptions Disp Refills metFORMIN (GLUCOPHAGE) 1,000 mg tablet 180 tablet 1 Sig: Take 1 tablet by mouth two times a day with meals. . losartan (COZAAR) 100 mg tablet 90 tablet 0 Sig: Take 1 tablet by mouth once daily. Date of last office visit in primary care: 08/10/2023 Date of next office visit in primary care: 01/08/2024 Please advise. Thank you. Tawny Santos MA. documented in this encounter [facility] 08-13-2023 Telephone encounter Note Attempted to contact patient to review results. Advised results sent via [employer] for him to review. Also advised to call if any questions. Please leave encounter open until patient calls or reviews [employer] message. [facility] 08-13-2023 Miscellaneous Notes Attempted to contact patient to review results. Advised results sent via [employer] for him to review. Also advised to call if any questions. Please leave encounter open until patient calls or reviews [employer] message. ----- Message from Tobi Sorto MD sent at 08/13/2023 8:05 AM EDT ----- Normal chest xray. documented in this encounter [facility] 08-13-2023 Telephone encounter Note ----- Message from Tobi Sorto MD sent at 08/13/2023 8:05 AM EDT ----- Normal chest xray. [facility] 08-10-2023 History of Present illness Narrative EVENT MONITOR DISPOSABLE PATCH INSTRUCTIONS Patient Name: Joshua Estes Clinic Number: [id number] Skin prepped and cleansed with alcohol Patch secured to prepped area Monitor Activated Serial #: [id number] Patient Instructed: Prescribed order timeframe Bathing guidelines Usage of event button and diary documentation Return of monitor at the end of prescribed order Call with problems [phone] or [phone]. [phone] Patient expresses a good understanding of instructions Dolores Jama LPN Chief Complaint Patient presents with: Cough: Cough lingering and keeps patient up at HPI Joshua Estes is a 68 year old male who presents here today for Above Complaints. Patient treated for sinus infection back on 07/03 with augmentin which resolved sinus symptoms, but he has persistent mildly productive cough with clear sputum. Cough is worst when lying down at night.Has treated with Claritin and Nyquil without improvement. Denies fever/chills, SOB, wheezing, chest pain, chest congestion, itchy/watery, rhinorrhea, sneezing, post nasal drip, heartburn. Past medical history, appointments, medications, allergies reviewed. Previous Medical History PAST MEDICAL HISTORY Diagnosis Date Aneurysm (HCC) right common femoral artery. Dr. Ordoñez Colon polyps 08/2018 benign, repeat in 10 years Diabetes mellitus, type II (HCC) Diabetic ulcer of toe of right foot (HCC) DVT (deep venous thrombosis) (HCC) GERD (gastroesophageal reflux disease) Hyperlipidemia Hypertension Obesity PAC (premature atrial contraction) Peripheral arterial disease (HCC) Restless leg syndrome Snoring Tobacco use Previous Surgical History PAST SURGICAL HISTORY Procedure Laterality Date COLONOSCOPY FLX DX W/COLLJ SPEC WHEN PFRMD 09/12/2018 Colonoscopy I&D ABSC; [facility] OR SGL Right 12/22/2015 Incision and drainage of right groin collection, debridement of full- thickness skin and soft tissue. 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 Family History FAMILY HISTORY Problem Relation Age of Onset other (liver cancer) Mother age 34 Cancer Father age 54 Diabetes Brother Alive age 68 Asthma Other Alive age 41 No Known Problems Maternal Grandmother No Known Problems Maternal Grandfather No Known Problems Paternal Grandmother No Known Problems Paternal Grandfather Patient Allergies ALLERGIES No Known Allergies Current Medications Current Outpatient Medications on File Prior to Visit Medication Sig gabapentin (NEURONTIN) 300 mg capsule Take one capsule three times a day for 30 days cyclobenzaprine (FLEXERIL) 5 mg tablet Take 1-2 tablets at bedtime as needed for muscle spasms SILVASORB GlER APPLY TOPICALLY TO AFFECTED AREA EVERY DAY empagliflozin (JARDIANCE) 25 mg tablet Take 1 tablet by mouth once daily. Take 1 tablet once daily in the morning albuterol HFA (VENTOLIN HFA) 90 mcg/actuation inhaler Inhale 2 Puffs as instructed every 4 hours as needed for wheezing/shortness of breath. losartan (COZAAR) 100 mg tablet Take 1 tablet by mouth once daily. rOPINIRole (REQUIP) 4 mg tablet Take 1 tablet by mouth daily at bedtime. atorvastatin (LIPITOR) 40 mg tablet Take 1 tablet by mouth once daily. For cholesterol. glimepiride (AMARYL) 4 mg tablet Take 2 tablets by mouth daily with breakfast. hydroCHLOROthiazide 50 mg tablet Take 1 tablet by mouth once daily. metFORMIN (GLUCOPHAGE) 1,000 mg tablet Take 1 tablet by mouth two times a day with meals. . blood sugar diagnostic (TRUE METRIX GLUCOSE TEST STRIP) test strip Test once daily DX: E11.42, E11.29 Blood Pressure Monitor (BLOOD PRESSURE KIT) 1 Each once daily. pentoxifylline ER (TRENTAL) 400 mg CR tablet Take 1 tablet by mouth three times daily with meals. Blood-Glucose Meter (TRUE METRIX AIR GLUCOSE METER) misc 1 Device twice daily. Lancets lancets Test once daily DX: E11.42. E11.29 insulin needles, DISPOSABLE, (BD INSULIN PEN NEEDLE UF) 31 gauge x 5/16 ndle 1 Each once daily. aspirin 81 mg chewable tablet Take 1 tablet by mouth once daily. Lactobacillus acidophilus (FLORAJEN ACIDOPHILUS) 20 billion cell capsule Take 1 capsule by mouth once daily. (Patient not taking: Reported on 07/23/2023) No current facility-administered medications on file prior to visit. Social History Social History Tobacco Use Smoking status: Every Day Packs/day: 0.25 Years: 46.00 Additional pack years: 0.00 Total pack years: 11.50 Types: Cigarettes Last attempt to quit: 12/03/2015 Years since quittin.6 Smokeless tobacco: Never Tobacco comments: Started to smoke again, 1/2 pack a week Vaping Use Vaping Use: Never used Substance Use Topics Alcohol use: No Drug use: No Review of Symptoms REVIEW OF SYSTEMS See HPI EXAM: BP 126/68 Pulse (!) 45 Resp 16 Wt 111.3 kg (245 lb 6.4 oz) SpO2 96% BMI 32.38 kg/m General Appearance: Well appearing, alert, in no acute distress, well-hydrated, well nourished.. Skin: Skin color, texture, turgor normal, no suspicious rashes or lesions. Lungs: Lungs clear to auscultation. No wheezing, rhonchi, rales.. Heart: Negative findings: no murmurs, clicks, or gallops, Positive findings: irregular rhythm. Abdomen: Normal abdominal exam, Abdomen soft, non-tender. Bowel sounds normal. No masses, organomegaly. Extremities: No deformities, edema, skin discoloration, clubbing or cyanosis. Good capillary refill. . Health Maintenance List Shingrix Vaccine(1 of 2) Never done RSV Vaccine(1 - 1-dose 60+ series) Never done Pneumococcal Vaccine: 65+(2 of 2 - PCV) due on 11/23/2019 Dilated Retinal Exam due on 08/10/2022 Covid-19 Vaccine(1 - 3-24 season) Never done Advance Directive Discussion Never done Behavioral Health Screening Never done Urine Albumin:Creatinine Ratio due on 07/06/2023 LDL Cholesterol due on 07/06/2023 HbA1C due on 11/08/2023 Influenza Vaccine(Season Ended) due on 12/02/2023 Diabetic Foot Exam due on 07/08/2024 Annual PCP Team Chronic Disease Visit due on 07/08/2024 BP Controlled (<130/80) due on 07/08/2024 Colorectal Cancer Screening due on 09/12/2028 DTaP,Tdap,Td Vaccine(2 - Td or Tdap) due on 11/22/2028 Abdominal Aortic Aneurysm Screening Completed Hepatitis C Screening Completed Data reviewed Sinus rhythm with PACs in a pattern of bigeminy, LAD, low voltage QRS, inferior infarct, age undetermined, possible anterolateral infarct, age undetermined. Abnormal EKG. ASSESSMENT/PLAN: 1. Persistent cough for 3 weeks or longer - ICD9: 786.2, ICD10: R05.3 (primary diagnosis) Suspect 2/2 allergies vs GERD. Will start flonase and PPI as ordered. Call if not improving in 2-3 weeks. Consider PFTs if no improvement. - OMEPRAZOLE 40 MG CAPSULE,DELAYED RELEASE - FLUTICASONE PROPIONATE 50 MCG/ACTUATION NASAL SPRAY,SUSPENSION - XR CHEST 2V FRONTAL/LAT 2. Irregular heartbeat - ICD9: 427.9, ICD10: I49.9 EKG today shows PACs with bigeminy. Patient was also having episodes of bradycardia into the 40's and 50's in the office, but was not captured on the EKG. Will obtain labs, holter monitor, and refer to cardiology for further evaluation. Red flags for re-assessment reviewed with patient in detail. - ECG COMPLETE 3. Bigeminy - ICD9: 427.89, ICD10: I49.8 See above. - OUTSIDE VENDOR CARDIAC OUTPATIENT EXTENDED RHYTHM RECORDING (WITHOUT TELEMETRY) - CONSULT TO CARDIOLOGY - COMPLETE BLOOD COUNT AND DIFFERENTIAL - COMPREHENSIVE METABOLIC PANEL - THYROID STIMULATING HORMONE - MAGNESIUM - ECHO - PERFLUTREN LIPID MICROSPHERES 1.1 MG/ML INJECTION IN NS 10 ML - SODIUM CHLORIDE 0.9 % (FLUSH) INJECTION SYRINGE 4. PAC (premature atrial contraction) - ICD9: 427.61, ICD10: I49.1 - OUTSIDE VENDOR CARDIAC OUTPATIENT EXTENDED RHYTHM RECORDING (WITHOUT TELEMETRY) - CONSULT TO CARDIOLOGY - COMPLETE BLOOD COUNT AND DIFFERENTIAL - COMPREHENSIVE METABOLIC PANEL - THYROID STIMULATING HORMONE - MAGNESIUM - ECHO - PERFLUTREN LIPID MICROSPHERES 1.1 MG/ML INJECTION IN NS 10 ML - SODIUM CHLORIDE 0.9 % (FLUSH) INJECTION SYRINGE 5. Bradycardia - ICD9: 427.89, ICD10: R00.1 - OUTSIDE VENDOR CARDIAC OUTPATIENT EXTENDED RHYTHM RECORDING (WITHOUT TELEMETRY) - CONSULT TO CARDIOLOGY - COMPLETE BLOOD COUNT AND DIFFERENTIAL - COMPREHENSIVE METABOLIC PANEL - THYROID STIMULATING HORMONE - MAGNESIUM - ECHO - PERFLUTREN LIPID MICROSPHERES 1.1 MG/ML INJECTION IN NS 10 ML - SODIUM CHLORIDE 0.9 % (FLUSH) INJECTION SYRINGE 6. Abnormal EKG - ICD9: 794.31, ICD10: R94.31 - ECHO - PERFLUTREN LIPID MICROSPHERES 1.1 MG/ML INJECTION IN NS 10 ML - SODIUM CHLORIDE 0.9 % (FLUSH) INJECTION SYRINGE Tobi Sorto MD documented in this encounter [facility] 08-06-2023 Telephone encounter Note PDMP website checked and validated. All prescriptions have been APPROPRIATELY filled. No suspicious activity was identified. 08/06/2023 by Audrey Packer APRN.CNP [facility] 08-06-2023 Miscellaneous Notes PDMP website checked and validated. All prescriptions have been APPROPRIATELY filled. No suspicious activity was identified. 08/06/2023 by Audrey Packer APRN.CNP Patient has been identified by name and date of : Yes, Provider Macario Patient phones for refill(s): Requested Prescriptions Pending Prescriptions Disp Refills gabapentin (NEURONTIN) 300 mg capsule 270 capsule 0 Sig: Take one capsule three times a day for 30 days Date of last office visit in primary care: 07/09/2023 Date of next office visit in primary care: 01/08/2024 Please advise. Thank you. Ebony Samuels. documented in this encounter [facility] 08-06-2023 Telephone encounter Note Patient has been identified by name and date of : Yes, Provider Macario Patient phones for refill(s): Requested Prescriptions Pending Prescriptions Disp Refills gabapentin (NEURONTIN) 300 mg capsule 270 capsule 0 Sig: Take one capsule three times a day for 30 days Date of last office visit in primary care: 07/09/2023 Date of next office visit in primary care: 01/08/2024 Please advise. Thank you. Ebony Samuels. [facility] 07-23-2023 History of Present illness Narrative FOLLOW UP PODIATRIC OFFICE VISIT Chief Complaint: This 68 year old who presents for follow up:ulceration of left hallux. Patient presents to clinic for follow-up left hallux ulceration His ulceration remains healed He is wearing diabetic shoes He has no other complaints Continues to smoke. PAIN EVALUATION No data found in the last 1 encounters. Hemoglobin A1C Date Value Ref Range Status 05/10/2023 7.5 (H) 4.3 - 5.6 % Final Comment: [place] [employer] guidelines indicate that patients with HgbA1c in the range 5.7-6.4% are at increased risk for development of diabetes, and intervention by lifestyle modification may be beneficial. HgbA1c greater or equal to 6.5% is considered diagnostic of diabetes. PCP: Tobi Sorto MD PAST MEDICAL HISTORY Diagnosis Date Aneurysm (HCC) right common femoral artery. Dr. Ordoñez Colon polyps 08/2018 benign, repeat in 10 years Diabetes mellitus, type II (HCC) Diabetic ulcer of toe of right foot (HCC) DVT (deep venous thrombosis) (HCC) GERD (gastroesophageal reflux disease) Hyperlipidemia Hypertension Obesity PAC (premature atrial contraction) Peripheral arterial disease (HCC) Restless leg syndrome Snoring Tobacco use Current Outpatient Medications Medication Sig cyclobenzaprine (FLEXERIL) 5 mg tablet Take 1-2 tablets at bedtime as needed for muscle spasms SILVASORB GlER APPLY TOPICALLY TO AFFECTED AREA EVERY DAY empagliflozin (JARDIANCE) 25 mg tablet Take 1 tablet by mouth once daily. Take 1 tablet once daily in the morning albuterol HFA (VENTOLIN HFA) 90 mcg/actuation inhaler Inhale 2 Puffs as instructed every 4 hours as needed for wheezing/shortness of breath. losartan (COZAAR) 100 mg tablet Take 1 tablet by mouth once daily. rOPINIRole (REQUIP) 4 mg tablet Take 1 tablet by mouth daily at bedtime. gabapentin (NEURONTIN) 300 mg capsule Take one capsule three times a day for 30 days atorvastatin (LIPITOR) 40 mg tablet Take 1 tablet by mouth once daily. For cholesterol. glimepiride (AMARYL) 4 mg tablet Take 2 tablets by mouth daily with breakfast. hydroCHLOROthiazide 50 mg tablet Take 1 tablet by mouth once daily. metFORMIN (GLUCOPHAGE) 1,000 mg tablet Take 1 tablet by mouth two times a day with meals. . blood sugar diagnostic (TRUE METRIX GLUCOSE TEST STRIP) test strip Test once daily DX: E11.42, E11.29 Blood Pressure Monitor (BLOOD PRESSURE KIT) 1 Each once daily. pentoxifylline ER (TRENTAL) 400 mg CR tablet Take 1 tablet by mouth three times daily with meals. Blood-Glucose Meter (TRUE METRIX AIR GLUCOSE METER) misc 1 Device twice daily. Lancets lancets Test once daily DX: E11.42. E11.29 insulin needles, DISPOSABLE, (BD INSULIN PEN NEEDLE UF) 31 gauge x 5/16 ndle 1 Each once daily. aspirin 81 mg chewable tablet Take 1 tablet by mouth once daily. Lactobacillus acidophilus (FLORAJEN ACIDOPHILUS) 20 billion cell capsule Take 1 capsule by mouth once daily. (Patient not taking: Reported on 07/23/2023) No current facility-administered medications for this visit. ALLERGIES No Known Allergies PAST SURGICAL HISTORY Procedure Laterality Date COLONOSCOPY FLX DX W/COLLJ SPEC WHEN PFRMD 09/12/2018 Colonoscopy I&D ABSC; SMPL OR SGL Right 12/22/2015 Incision and drainage of right groin collection, debridement of full- thickness skin and soft tissue. 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 Physical Exam: OBJECTIVE: Constitutional: Pt is a well developed 68 year old male who is alert, oriented, cooperative and in no apparent distress. Eyes: Following during examination. No redness or drainage. Respiratory: RR normal and nonlabored. Even breathing. No evidence of distress. Psychology: Patient is engaged during conversation. Normal affect and mood. Does not appear depressed or anxious. NVSI unchanged from previous visit. Dermatological: Nails 1-5 b/l are normal in length and thickness. Webspaces clean and dry 1-4 b/l. Skin appears well hydrated and supple. good color, texture, turgor. No open lesions present. Callus present to left hallux. No ulceration present. Musculoskeletal/Orthopaedic: Patient has no pain to palpation of b/l lower extremity There is decreased rom of left hallux. ASSESSMENT: Callus of foot (primary encounter diagnosis) Hammertoe of left foot Type 2 diabetes mellitus with peripheral neuropathy ([facility]) PLAN: Discussed callus of left hallux. Callus was reduced to left hallux with 15 blade and dremmel. Discussed hallux ipj arthroplasty vs continued use of diabetic shoes. For now, patient is going to continue with diabetic shoes, use of lotion, avoiding barefoot walking Discussed diabetes. He has neuropathy. Stressed the need to avoid barefoot walking, wearing good shoes, use of lotion. Also stressed the need to avoid smoking F/u in 1-2 months or sooner if problems arise further Rao Hillman DPM Patient presents with: Left Foot - Follow Up, Established Patient, Callous Patient presents for follow up of left foot callus, had previous ulcer that has since healed. SRUTHI- 05/28/23 documented in this encounter [facility] 07-09-2023 History of Present illness Narrative 07/09/2023 Patient presents with: 6 mo follow up SUBJECTIVE: This is a 67 year old that is here today for Above Complaints. DIABETES MELLITUS: Since our last visit he denies excessive thirst or increased frequency of urination, chest pain or dyspnea , numbness, tingling or pain in extremities, new or unusual visual symptoms, low sugar/hypoglycemic reactions, weight loss/gain, lightheadedness/dizziness, and bowel changes/loose stools. Follows a diabetic diet most of the time. He is compliant with medication(s) and is tolerating med(s) without any side effects. He reports checking his glucose on a one-two times a day schedule with sugars in the fasting 140 range and in afternoon less than 200. Patient's last HgA1C was Hemoglobin A1C (%) Date Value 05/10/2023 7.5 01/05/2023 7.2 02/21/2021 6.8 06/11/2020 8.1 ) Last Ophthalmology exam was within the past 12 months Last Podiatry exam was within the past 3 months HTN: Patient is compliant with meds Yes Monitors bp at home: Yes. Denies side effects: Yes. Chest pain: No. Dyspnea: No. Edema: No. Palpitations: No. Syncope: No. Headache: No. Dizziness: No. HYPERLIPIDEMIA: Patient is taking medications: Yes. Patient is watching diet: Yes. Patient denies myalgias: Yes. Patient denies gi upset: Yes RLS: Muscle spasms in legs at night- takes flexeril which helps some. Taking Requip for RLS which helps PAD: has not followed with vascular for some time. Denies claudication symptoms or leg ulcers. PAST MEDICAL HISTORY Diagnosis Date Aneurysm (HCC) right common femoral artery. Dr. Ordoñez Colon polyps 08/2018 benign, repeat in 10 years Diabetes mellitus, type II (HCC) Diabetic ulcer of toe of right foot (HCC) DVT (deep venous thrombosis) (HCC) GERD (gastroesophageal reflux disease) Hyperlipidemia Hypertension Obesity PAC (premature atrial contraction) Peripheral arterial disease (HCC) Restless leg syndrome Snoring Tobacco use ALLERGIES Patient has no known allergies. MEDICATIONS Current Outpatient Medications Medication Sig amoxicillin-clavulanate potassium (AUGMENTIN) 875-125 mg per tablet Take 1 tablet by mouth two times a day for 10 days. SILVASORB GlER APPLY TOPICALLY TO AFFECTED AREA EVERY DAY empagliflozin (JARDIANCE) 25 mg tablet Take 1 tablet by mouth once daily. Take 1 tablet once daily in the morning albuterol HFA (VENTOLIN HFA) 90 mcg/actuation inhaler Inhale 2 Puffs as instructed every 4 hours as needed for wheezing/shortness of breath. losartan (COZAAR) 100 mg tablet Take 1 tablet by mouth once daily. cyclobenzaprine (FLEXERIL) 5 mg tablet Take 1-2 tablets at bedtime as needed for muscle spasms rOPINIRole (REQUIP) 4 mg tablet Take 1 tablet by mouth daily at bedtime. gabapentin (NEURONTIN) 300 mg capsule Take one capsule three times a day for 30 days atorvastatin (LIPITOR) 40 mg tablet Take 1 tablet by mouth once daily. For cholesterol. glimepiride (AMARYL) 4 mg tablet Take 2 tablets by mouth daily with breakfast. hydroCHLOROthiazide 50 mg tablet Take 1 tablet by mouth once daily. metFORMIN (GLUCOPHAGE) 1,000 mg tablet Take 1 tablet by mouth two times a day with meals. . Lactobacillus acidophilus (FLORAJEN ACIDOPHILUS) 20 billion cell capsule Take 1 capsule by mouth once daily. blood sugar diagnostic (TRUE METRIX GLUCOSE TEST STRIP) test strip Test once daily DX: E11.42, E11.29 Blood Pressure Monitor (BLOOD PRESSURE KIT) 1 Each once daily. pentoxifylline ER (TRENTAL) 400 mg CR tablet Take 1 tablet by mouth three times daily with meals. Blood-Glucose Meter (TRUE METRIX AIR GLUCOSE METER) misc 1 Device twice daily. Lancets lancets Test once daily DX: E11.42. E11.29 insulin needles, DISPOSABLE, (BD INSULIN PEN NEEDLE UF) 31 gauge x 5/16 ndle 1 Each once daily. aspirin 81 mg chewable tablet Take 1 tablet by mouth once daily. No current facility-administered medications for this visit. Medications and allergies reviewed by this provider. SOCIAL HISTORY Social History Tobacco Use Smoking status: Every Day Packs/day: 0.25 Years: 46.00 Additional pack years: 0.00 Total pack years: 11.50 Types: Cigarettes Last attempt to quit: 12/03/2015 Years since quittin.6 Smokeless tobacco: Never Tobacco comments: Started to smoke again, 1/2 pack a week Vaping Use Vaping Use: Never used Substance Use Topics Alcohol use: No Drug use: No REVIEW OF SYSTEMS All other reviewed and negative other than HPI. OBJECTIVE: BP 112/76 Pulse 78 Resp 16 Ht 185.4 cm (6' 1) Wt 111 kg (244 lb 12.8 oz) BMI 32.30 kg/m . Vital signs reviewed by this provider. APPEARANCE Well appearing, alert, in no acute distress, well-hydrated, well nourished. EYES conjunctiva and sclera normal. HEART RRR with normal S1 and S2, no murmurs, no gallops, no JVD appreciated LUNG clear to auscultation. No wheezes, rhonchi or rales EXTREMITIES No edema noted. Skin dry bilaterally SKIN Skin color, texture, turgor normal, no suspicious rashes or lesions to exposed feet Feet: not sensitive to monofilament unable to palpate pedal pulses. Feet warm to touch and no open wounds observed. Cap refill WNL Latest Ref Rng 05/10/2023 Protein, Total 6.3 - 8.0 g/dL 7.2 Albumin 3.9 - 4.9 g/dL 4.1 Calcium 8.5 - 10.2 mg/dL 9.7 Bilirubin, Total 0.2 - 1.3 mg/dL 0.6 Alkaline Phosphatase 38 - 113 U/L 66 AST 14 - 40 U/L 32 ALT 10 - 54 U/L 30 Glucose 74 - 99 mg/dL 135 (H) BUN 9 - 24 mg/dL 22 Creatinine 0.73 - 1.22 mg/dL 1.09 Sodium 136 - 144 mmol/L 140 Potassium 3.7 - 5.1 mmol/L 4.5 Chloride 97 - 105 mmol/L 104 CO2 22 - 30 mmol/L 26 Anion Gap 9 - 18 mmol/L 10 eGFR >=60 mL/min/1.73m 74 Hemoglobin A1C 4.3 - 5.6 % 7.5 (H) Estimated Average Glucose mg/dL 169 Latest Ref Rng 07/05/2022 Total Cholesterol, Nonfasting <200 mg/dL 123 Triglycerides, Nonfasting <150 mg/dL 197 (H) HDL Cholesterol, Nonfasting >39 mg/dL 33 (L) LDL Cholesterol, Nonfasting <100 mg/dL 51 Non HDL Cholesterol, Nonfasting <130 mg/dL 90 VLDL Cholesterol, Nonfasting <30 mg/dL 39 (H) Total Chol/HDL Ratio, Nonfasting <5.10 mg/dL 3.73 LDL/HDL Ratio, Nonfasting <2.54 mg/dL 1.55 Legend: (H) High (L) Low Legend: (H) High ASSESSMENT/PLAN: 1. Type 2 diabetes mellitus with peripheral neuropathy (HCC) - ICD9: 250.60, 357.2, ICD10: E11.42 (primary diagnosis) - Control undetermined, due for labs - Continue current medications - Statin prescribed - atorvastatin - Discussed need for and benefit of weight loss. BMI 32.30 kg/(m^2) - Follow up in 6 months, sooner should any other issues arise. - continue to take blood sugar twice a day - HGB A1C 2. Hyperlipidemia with target LDL less than 100 - ICD9: 272.4, ICD10: E78.5 - Control undetermined, due for labs - Continue current medications - Counseled on healthy diet and regular exercise - Discussed need for and benefit of weight loss. BMI 32.30 kg/(m^2) - Follow up in 6 months, sooner should any other issues arise. - LIPID PANEL BASIC - COMP METABOLIC PANEL - ALBUMIN/CREAT RATIO RND UR 3. Peripheral arterial disease (HCC) - ICD9: 443.9, ICD10: I73.9 - discussed with patient he is due for follow-up with vascular so he should make appointment, agreeable to make appointment - discussed smoking cessation, patient not ready at this time 4. Essential hypertension, benign - ICD9: 401.1, ICD10: I10 - Controlled - Continue current medications - Recommend home blood pressure monitoring, to bring results to next visit - Encouraged sodium restriction, DASH or Mediterranean diet - Recommend regular aerobic exercise - Discussed need for and benefit of weight loss. BMI 32.30 kg/(m^2) - Smoking cessation encouraged; discussed risks to health and quitting strategies. Patient is not ready to quit - Follow up in 6 months for hypertension visit - COMP METABOLIC PANEL 5. Restless leg syndrome - ICD9: 333.94, ICD10: G25.81 - stable on current regime Audrey Packer APRN.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 SPECIALIST Prescription instructions reviewed with patient as applicable. Patient advised if symptoms do not improve or if symptoms worsen sooner, to contact their primary care physician. Potential red flag symptoms discussed with the patient. Reviewed appropriate action plan to take if red flag symptoms occur. Patient agreeable to treatment plan. Medical Decision Making: Problems: Moderate: 2+ stable chronic illnesses Data: Unique test(s) ordered: 3+ Medical Decision Making Level: 4 - Moderate documented in this encounter [facility] 07-04-2023 History of Present illness Narrative 07/04/2023 Patient presents with: Sinus Problem: Nasal congestion and cough x2 weeks SUBJECTIVE: This is a 67 year old that is here today for Above Complaints.. For the last two weeks had had symptoms or nasal congestion and cough. Also admits to loss of taste ad smell, rhinorrhea and sinus pain/pressure. Has been using OTC nasima pot and Nyquil without much relief. Did not home test for COVID-19. Denies fevers, chills, muscle aches, sore throat, SOB, dyspnea, wheezing, nausea, vomiting or diarrhea PAST MEDICAL HISTORY Diagnosis Date Aneurysm (HCC) right common femoral artery. Dr. Ordoñez Colon polyps 08/2018 benign, repeat in 10 years Diabetes mellitus, type II (HCC) Diabetic ulcer of toe of right foot (HCC) DVT (deep venous thrombosis) (HCC) GERD (gastroesophageal reflux disease) Hyperlipidemia Hypertension Obesity PAC (premature atrial contraction) Peripheral arterial disease (HCC) Restless leg syndrome Snoring Tobacco use ALLERGIES Patient has no known allergies. MEDICATIONS Current Outpatient Medications Medication Sig SILVASORB GlER APPLY TOPICALLY TO AFFECTED AREA EVERY DAY empagliflozin (JARDIANCE) 25 mg tablet Take 1 tablet by mouth once daily. Take 1 tablet once daily in the morning albuterol HFA (VENTOLIN HFA) 90 mcg/actuation inhaler Inhale 2 Puffs as instructed every 4 hours as needed for wheezing/shortness of breath. losartan (COZAAR) 100 mg tablet Take 1 tablet by mouth once daily. cyclobenzaprine (FLEXERIL) 5 mg tablet Take 1-2 tablets at bedtime as needed for muscle spasms rOPINIRole (REQUIP) 4 mg tablet Take 1 tablet by mouth daily at bedtime. gabapentin (NEURONTIN) 300 mg capsule Take one capsule three times a day for 30 days atorvastatin (LIPITOR) 40 mg tablet Take 1 tablet by mouth once daily. For cholesterol. glimepiride (AMARYL) 4 mg tablet Take 2 tablets by mouth daily with breakfast. hydroCHLOROthiazide 50 mg tablet Take 1 tablet by mouth once daily. metFORMIN (GLUCOPHAGE) 1,000 mg tablet Take 1 tablet by mouth two times a day with meals. . Lactobacillus acidophilus (FLORAJEN ACIDOPHILUS) 20 billion cell capsule Take 1 capsule by mouth once daily. blood sugar diagnostic (TRUE METRIX GLUCOSE TEST STRIP) test strip Test once daily DX: E11.42, E11.29 Blood Pressure Monitor (BLOOD PRESSURE KIT) 1 Each once daily. pentoxifylline ER (TRENTAL) 400 mg CR tablet Take 1 tablet by mouth three times daily with meals. Blood-Glucose Meter (TRUE METRIX AIR GLUCOSE METER) misc 1 Device twice daily. Lancets lancets Test once daily DX: E11.42. insulin needles, DISPOSABLE, (BD INSULIN PEN NEEDLE UF) 31 gauge x 5/16 ndle 1 Each once daily. aspirin 81 mg chewable tablet Take 1 tablet by mouth once daily. No current facility-administered medications for this visit. Medications and allergies reviewed by this provider. SOCIAL HISTORY Social History Tobacco Use Smoking status: Every Day Packs/day: 0.25 Years: 46.00 Additional pack years: 0.00 Total pack years: 11.50 Types: Cigarettes Last attempt to quit: 12/03/2015 Years since quittin.5 Smokeless tobacco: Never Tobacco comments: Started to smoke again, 1/2 pack a week Vaping Use Vaping Use: Never used Substance Use Topics Alcohol use: No Drug use: No REVIEW OF SYSTEMS All other reviewed and negative other than HPI. OBJECTIVE: BP 112/76 Pulse 83 Temp (!) 35.8 C (96.4 F) Resp 18 Wt 111.8 kg (246 lb 6.4 oz) SpO2 92% BMI 32.96 kg/m . Vital signs reviewed by this provider. APPEARANCE Well appearing, alert, in no acute distress, well-hydrated, well nourished. EYES PERRLA, conjunctiva and sclera normal. EARS External ears normal, canals clear NOSE/SINUS positive findings: sinus tenderness frontal bilateral, mucosa erythematous and swollen THROAT normal, no erythema NECK Supple, no adenopathy; thyroid symmetric, normal size, no bruits HEART RRR with normal S1 and S2, no murmurs, no gallops, no JVD appreciated LUNG clear to auscultation. No wheezes, rhonchi or rales SKIN Skin color, texture, turgor normal, no suspicious rashes or lesions to exposed skin RSV Vaccine(1 - 1-dose 60+ series) Never done BP Controlled (<130/80) due on 07/04/2022 Dilated Retinal Exam due on 08/10/2022 Covid-19 Vaccine( season) Never done Advance Directive Discussion Never done Depression Assessment Never done Urine Albumin:Creatinine Ratio due on 07/06/2023 LDL Cholesterol due on 07/06/2023 Diabetic Foot Exam due on 07/06/2023 Shingrix Vaccine(1 of 2) due on 07/06/2023 Pneumococcal Vaccine: 65+(2 of 2 - PCV) due on 07/06/2023 HbA1C due on 11/08/2023 Prostate Cancer Screening Discussion due on 11/23/2023 Influenza Vaccine(Season Ended) due on 12/02/2023 Annual PCP Team Chronic Disease Visit due on 01/06/2024 Colorectal Cancer Screening due on 09/12/2028 DTaP,Tdap,Td Vaccine(2 - Td or Tdap) due on 11/22/2028 Abdominal Aortic Aneurysm Screening Completed Hepatitis C Screening Completed ASSESSMENT/PLAN: 1. Upper respiratory tract infection, unspecified type - ICD9: 465.9, ICD10: J06.9 (primary diagnosis) - Symptomatic treatment with prn analgesia - Supportive care with fluids and rest - The patient may also use OTC decongestants prn and nasal saline gtts and suction prn. - Follow up in 3-5 days if symptoms persist or sooner if worsening of symptoms - AMOXICILLIN 875 MG-POTASSIUM CLAVULANATE 125 MG TABLET 2. Sinus pressure - ICD9: 478.19, ICD10: J34.89 - plan as in #1 - AMOXICILLIN 875 MG-POTASSIUM CLAVULANATE 125 MG TABLET Audrey Packer APRN.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 SPECIALIST Prescription instructions reviewed with patient as applicable. Patient advised if symptoms do not improve or if symptoms worsen sooner, to contact their primary care physician. Potential red flag symptoms discussed with the patient. Reviewed appropriate action plan to take if red flag symptoms occur. Patient agreeable to treatment plan. Medical Decision Making: Problems: Low: Acute, uncomplicated illness or injury Risk: Moderate: Drug management Medical Decision Making Level: 3 - Low documented in this encounter [facility] 05-11-2023 Miscellaneous Notes Patient notified of results and provider's instructions. Patient verbalizes understanding. Amanda Alcazar RN Message left for patient to call office back for update. Marleny Raygoza LPN A1c has increased from 7.2% to 7.5%. Recommend increasing jardiance to 25 mg daily. Will send in new prescription. Check blood sugars twice a day- one fating and the other 1-2 hours after a meal. Update me with readings in one month. Continue low carbohydrate diet and aim for at least 150 minutes of exercise per week. Audrey Packer APRN.EDENILSON documented in this encounter [facility] 05-10-2023 Miscellaneous Notes Looking at med list, it appears pt may also need a Losartan refill. Called pt and he states that he is going to need a refill on that. Order for 2 scripts pended. Call pt only if problem. Patient has been identified by name and date of : Yes, Provider Macario Date 05-10-23 Time 12:32 pm Patient phones for refill(s): Requested Prescriptions Pending Prescriptions Disp Refills albuterol HFA (VENTOLIN HFA) 90 mcg/actuation inhaler 18 g 1 Sig: Inhale 2 Puffs as instructed every 4 hours as needed for wheezing/shortness of breath. Date of last office visit in primary care: 01/05/2023 Date of next office visit in primary care: 07/09/2023 Please advise. Thank you. Patricia Lacy Pss. documented in this encounter [facility] 05-10-2023 Instructions Rao Hillman - 05/10/2023 10:01 AM EST Apply small amount of topical antibiotic to left great toe daily Use surgical shoe Follow-up 2 weeks Ulceration measures 1 mm in diameter documented in this encounter [facility] 05-10-2023 History of Present illness Narrative FOLLOW UP PODIATRIC OFFICE VISIT Chief Complaint: This 67 year old who presents for follow up:left hallux ulceration Patient presents to clinic for follow-up left hallux ulceration Patient was prescribed silvergel but when he went to get, the pharmacy was out of stock and his insurance did not cover He has been applying topical antibiotic and wearing post-op shoe He feels the wound is improving. He has pvr to review. PAIN EVALUATION 05/10/2023 0918 Pain Level: 10 Pain Location: Foot-Right Description: Sharp;Shooting Duration Amount of Time: 2 Duration Units: Weeks Frequency: Intermittent Intervention/Comfort measure: Reposition;Relaxation Hemoglobin A1C Date Value Ref Range Status 01/05/2023 7.2 (H) 4.3 - 5.6 % Final Comment: [place] [employer] guidelines indicate that patients with HgbA1c in the range 5.7-6.4% are at increased risk for development of diabetes, and intervention by lifestyle modification may be beneficial. HgbA1c greater or equal to 6.5% is considered diagnostic of diabetes. PCP: Tobi Sorto MD PAST MEDICAL HISTORY Diagnosis Date Aneurysm (HCC) right common femoral artery. Dr. Ordoñez Colon polyps 08/2018 benign, repeat in 10 years Diabetes mellitus, type II (HCC) Diabetic ulcer of toe of right foot (HCC) DVT (deep venous thrombosis) (HCC) GERD (gastroesophageal reflux disease) Hyperlipidemia Hypertension Obesity PAC (premature atrial contraction) Peripheral arterial disease (HCC) Restless leg syndrome Snoring Tobacco use Current Outpatient Medications Medication Sig SILVASORB GlER APPLY TO AFFECTED AREA EVERY DAY cyclobenzaprine (FLEXERIL) 5 mg tablet Take 1-2 tablets at bedtime as needed for muscle spasms rOPINIRole (REQUIP) 4 mg tablet Take 1 tablet by mouth daily at bedtime. gabapentin (NEURONTIN) 300 mg capsule Take one capsule three times a day for 30 days atorvastatin (LIPITOR) 40 mg tablet Take 1 tablet by mouth once daily. For cholesterol. glimepiride (AMARYL) 4 mg tablet Take 2 tablets by mouth daily with breakfast. hydroCHLOROthiazide 50 mg tablet Take 1 tablet by mouth once daily. metFORMIN (GLUCOPHAGE) 1,000 mg tablet Take 1 tablet by mouth two times a day with meals. . empagliflozin (JARDIANCE) 10 mg tablet Take 1 tablet by mouth once daily. Take 1 tablet once daily in the morning albuterol HFA (VENTOLIN HFA) 90 mcg/actuation inhaler Inhale 2 Puffs as instructed every 4 hours as needed for wheezing/shortness of breath. losartan (COZAAR) 100 mg tablet Take 1 tablet by mouth once daily. Lactobacillus acidophilus (FLORAJEN ACIDOPHILUS) 20 billion cell capsule Take 1 capsule by mouth once daily. blood sugar diagnostic (TRUE METRIX GLUCOSE TEST STRIP) test strip Test once daily DX: E11.42, E11.29 Blood Pressure Monitor (BLOOD PRESSURE KIT) 1 Each once daily. pentoxifylline ER (TRENTAL) 400 mg CR tablet Take 1 tablet by mouth three times daily with meals. Blood-Glucose Meter (TRUE METRIX AIR GLUCOSE METER) misc 1 Device twice daily. Lancets lancets Test once daily DX: E11.42. E11.29 insulin needles, DISPOSABLE, (BD INSULIN PEN NEEDLE UF) 31 gauge x 5/16 ndle 1 Each once daily. aspirin 81 mg chewable tablet Take 1 tablet by mouth once daily. No current facility-administered medications for this visit. ALLERGIES No Known Allergies PAST SURGICAL HISTORY Procedure Laterality Date COLONOSCOPY FLX DX W/COLLJ SPEC WHEN PFRMD 09/12/2018 Colonoscopy I&D ABSC; SMPL OR SGL Right 12/22/2015 Incision and drainage of right groin collection, debridement of full- thickness skin and soft tissue. 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 Physical Exam: OBJECTIVE: Constitutional: Pt is a well developed 67 year old male who is alert, oriented, cooperative and in no apparent distress. Eyes: Following during examination. No redness or drainage. Respiratory: RR normal and nonlabored. Even breathing. No evidence of distress. Psychology: Patient is engaged during conversation. Normal affect and mood. Does not appear depressed or anxious. NVSI unchanged from previous visit. Non-Invasive Vascular Laboratory [facility] Lower Extremity Arterial Physiology Study Bilateral/Complete Date of service/time: 05/03/2023 8:57:27 AM Name: MR. JOSHUA ESTES Date of : 1955 Age: 67 years Gender: M Clinical Indication Decreased pulses and ulceration left. TECHNIQUE -------- An arterial physiological examination was performed, including measurement of blood pressures using continuous wave Doppler and recording of plethysmographic with or without Doppler waveforms at the below-mentioned limb segments. FINDINGS -------- RIGHT SIDE AT REST Right Doppler Waveforms Dorsalis pedis: Multiphasic. Post tibial: Multiphasic. Right Pressures Brachial: 149 mmHg Ankle dorsalis pedis: 150 mmHg CHARLENE: 1.01 Ankle posterior tibial: 151 mmHg CHARLENE: 1.01 Digit: 89 mmHg Right PVR Waveforms Ankle: Normal. Digit: Mildly dampened. LEFT SIDE AT REST Left Doppler Waveforms Dorsalis pedis: Multiphasic. Post tibial: Multiphasic. Left Pressures Brachial: 142 mmHg Ankle dorsalis pedis: 163 mmHg CHARLENE: 1.09 Ankle posterior tibial: 150 mmHg CHARLENE: 1.01 Digit: 114 mmHg Left PVR Waveforms Ankle: Normal. Digit: Normal. IMPRESSION Compared to prior study of 12/01/2021, No significant change. RIGHT SIDE Resting right ankle brachial index: 1.01 Right toe brachial index: 0.60 Normal ankle brachial index at rest in the right leg. Abnormal toe brachial index at rest is evidence of peripheral artery disease. Right ankle: Normal at rest. Right small vessel disease. LEFT SIDE Resting left ankle brachial index: 1.09 Left toe brachial index: 0.77 Normal ankle brachial index at rest in the left leg. Normal toe brachial index at rest in the left leg. Left ankle: Normal at rest. Technologist: Alice Duncan RVT, [facility] Ordering physician: RAO HILLMAN Interpreting physician: MAHAMED Stoll DO Dermatological: Left hallux has callus that upon debridement, has 1 mm x 1 mm ulceration. No exposed tendon or bone. No signs of infection. Musculoskeletal/Orthopaedic: Patient has no pain to palpation of left hallux Rom of left hallux ipj is decreased ASSESSMENT: (L97.521) Ulcer of toe of left foot, limited to breakdown of skin (HCC) (primary encounter diagnosis) (E08.42) Diabetic polyneuropathy associated with diabetes mellitus due to underlying condition (HCC) PLAN: Discussed ulceration of left hallux ipj Ulceration appears to be smaller on exam. Today, I debrided the ulceration with tissue nippers of nonviable tissue. Total debridement was 1 mm x 1 mm. Had recommended silvergel but patient insurance did not approve. Will have patient continue with topical antibiotic with offloading surgical shoe Again discussed hallux ipj arthroplasty as an option on the left hallux. He had similar issue on right hallux and this has resulted in absence callus/ulceration to right great toe He may consider the arthroplasty on left foot but for now, will continue with pallitative care Follow-up in 2 weeks Rao Hillman DPM AMB ROOMING INTAKE FLOWSHEET DATA Pain Pain Level: 10 Pain Location: Foot-Right Description: Sharp, Shooting Duration Amount of Time: 2 Duration Units: Weeks Frequency: Intermittent Intervention/Comfort measure: Reposition, Relaxation Patient presents with: Left Foot - Established Patient, Follow Up, Diabetic Foot Ulcer Right Foot - Established Patient, Follow Up, Pain Bekah Flynn LPN documented in this encounter [facility] 04-09-2023 Miscellaneous Notes Patient has been identified by name and date of : Yes Requested Prescriptions Pending Prescriptions Disp Refills cyclobenzaprine (FLEXERIL) 5 mg tablet 1 Sig: Take 1-2 tablets at bedtime as needed for muscle spasms RX INSTRUCTIONS: Patient stated he usually takes 2 tablets per night - this quantity does not last 30 days and therefore he has no refills left. Patient aware RX will be sent to pharmacy. No need to notify patient. Mamie Samuels documented in this encounter [facility] 02-26-2023 Miscellaneous Notes SRUTHI 01/05/23 NOV 07/09/23 Patient has been identified by name and date of : Yes Requested Prescriptions Pending Prescriptions Disp Refills atorvastatin (LIPITOR) 40 mg tablet 90 tablet 1 Sig: Take 1 tablet by mouth once daily. For cholesterol. glimepiride (AMARYL) 4 mg tablet 180 tablet 1 Sig: Take 2 tablets by mouth daily with breakfast. hydroCHLOROthiazide 50 mg tablet 90 tablet 1 Sig: Take 1 tablet by mouth once daily. RX INSTRUCTIONS: Patient aware RX will be sent to pharmacy. No need to notify patient. Mamie Comer [facility] documented in this encounter [facility] 02-05-2023 Miscellaneous Notes Patient has been identified by name and date of : Yes Requested Prescriptions Pending Prescriptions Disp Refills cyclobenzaprine (FLEXERIL) 5 mg tablet 30 tablet 1 Sig: Take 1-2 tablets at bedtime as needed for muscle spasms RX INSTRUCTIONS: Patient aware RX will be sent to pharmacy. No need to notify patient. Patricia Samuels documented in this encounter [facility] 01-08-2023 Miscellaneous Notes Patient notified and verbalized understanding. Tawny Santos MA Prescription for Jardiance sent. Would like him to repeat A1c in 3 months. I placed order for labs. Audrey Packer APRN.CNP TC to patient who verbalized understanding of providers message below. Patient states he would like restart medication and requesting that Jaurdiance script be sent to [facility] in [place]. Please review and advise. Thank you. AALIYAH Blank ----- Message from Audrey Packer APRN.CNP sent at 01/08/2023 7:41 AM EDT ----- A1c increases from 6.8% to 7.2%. We could restart the jardiance if he would like,otherwise work on eating lower carbohydrate diet and exercising at least 150 minutes of exercise per week.The rest of his blood work is normal. Audrey Packer APRN.CNP documented in this encounter [facility] 01-05-2023 History of Present illness Narrative 01/05/2023 Patient presents with: F/U 6 months SUBJECTIVE: This is a 67 year old that is here today for Above Complaints. DIABETES MELLITUS: Mr. Estes was last seen on 11/20/2022 . Since our last visit he denies excessive thirst or increased frequency of urination, chest pain or dyspnea , numbness, tingling or pain in extremities, new or unusual visual symptoms, low sugar/hypoglycemic reactions, weight loss/gain, lightheadedness/dizziness, and bowel changes/loose stools Follows a diabetic diet most of the time. He is compliant with medication(s) and is tolerating med(s) without any side effects. He reports checking his glucose on a once a day schedule with sugars in the fasting 135 range. Patient's last HgA1C was Hemoglobin A1C (%) Date Value 07/05/2022 6.8 01/03/2022 6.6 02/21/2021 6.8 06/11/2020 8.1 ) Last Ophthalmology exam was September HTN: Patient is compliant with meds Yes Monitors bp at home: occasionally . Denies side effects: Yes. Chest pain: No. Dyspnea: No. Edema: occasionally . Palpitations: No. Syncope: No. Headache: No. Dizziness: No. RLS: taking Requip as prescribed. Reports does get leg cramps in right leg at night. He reports he feels the need to move it because of the cramps. Takes flexeril and tylenol which helps some PAD: taking ASA, statin and trental as prescribed. Denies claudication, cyanosis, cold extremities. PAST MEDICAL HISTORY Diagnosis Date Aneurysm (HCC) right common femoral artery. Dr. Ordoñez Colon polyps 08/2018 benign, repeat in 10 years Diabetes mellitus, type II (HCC) Diabetic ulcer of toe of right foot (HCC) DVT (deep venous thrombosis) (HCC) GERD (gastroesophageal reflux disease) Hyperlipidemia Hypertension Obesity PAC (premature atrial contraction) Peripheral arterial disease (HCC) Restless leg syndrome Snoring Tobacco use ALLERGIES Patient has no known allergies. MEDICATIONS Current Outpatient Medications Medication Sig cyclobenzaprine (FLEXERIL) 5 mg tablet Take 1-2 tablets at bedtime as needed for muscle spasms albuterol HFA (VENTOLIN HFA) 90 mcg/actuation inhaler Inhale 2 Puffs as instructed every 4 hours as needed for wheezing/shortness of breath. rOPINIRole (REQUIP) 4 mg tablet Take 1 tablet by mouth daily at bedtime. losartan (COZAAR) 100 mg tablet Take 1 tablet by mouth once daily. gabapentin (NEURONTIN) 300 mg capsule Take one capsule three times a day for 30 days Lactobacillus acidophilus (FLORAJEN ACIDOPHILUS) 20 billion cell capsule Take 1 capsule by mouth once daily. metFORMIN (GLUCOPHAGE) 1,000 mg tablet Take 1 tablet by mouth twice daily with meals. . atorvastatin (LIPITOR) 40 mg tablet Take 1 tablet by mouth once daily. For cholesterol. glimepiride (AMARYL) 4 mg tablet Take 2 tablets by mouth daily with breakfast. hydroCHLOROthiazide 50 mg tablet Take 1 tablet by mouth once daily. blood sugar diagnostic (TRUE METRIX GLUCOSE TEST STRIP) test strip Test once daily DX: E11, Blood Pressure Monitor (BLOOD PRESSURE KIT) 1 Each once daily. pentoxifylline ER (TRENTAL) 400 mg CR tablet Take 1 tablet by mouth three times daily with meals. Blood-Glucose Meter (TRUE METRIX AIR GLUCOSE METER) misc 1 Device twice daily. Lancets lancets Test once daily DX: E11. insulin needles, DISPOSABLE, (BD INSULIN PEN NEEDLE UF) 31 gauge x 5/16 ndle 1 Each once daily. aspirin 81 mg chewable tablet Take 1 tablet by mouth once daily. No current facility-administered medications for this visit. Medications and allergies reviewed by this provider. SOCIAL HISTORY Social History Tobacco Use Smoking status: Every Day Packs/day: 0.25 Years: 46.00 Additional pack years: 0.00 Total pack years: 11.50 Types: Cigarettes Last attempt to quit: 12/03/2015 Years since quittin.0 Smokeless tobacco: Never Tobacco comments: Started to smoke again, 1 pack a week Vaping Use Vaping Use: Never used Substance Use Topics Alcohol use: No Drug use: No REVIEW OF SYSTEMS All other reviewed and negative other than HPI. OBJECTIVE: BP 138/76 Pulse 80 Resp 18 Wt 112 kg (247 lb) SpO2 95% BMI 33.04 kg/m . Vital signs reviewed by this provider. APPEARANCE Well appearing, alert, in no acute distress, well-hydrated, well nourished. EYES conjunctiva and sclera normal. HEART RRR with normal S1 and S2, no murmurs, no gallops, no JVD appreciated LUNG clear to auscultation. No wheezes, rhonchi or rales EXTREMITIES Extremities normal, No deformities, No skin discoloration, and No edema SKIN Skin color, texture, turgor normal, no suspicious rashes or lesions to exposed skin Component Latest Ref Rng & Units 10/19/2022 11/07/2022 Glucose 74 - 99 mg/dL 201 (H) BUN 9 - 24 mg/dL 31 (H) Creatinine 0.73 - 1.22 mg/dL 1.14 Sodium 136 - 144 mmol/L 138 Potassium 3.7 - 5.1 mmol/L 4.3 Chloride 97 - 105 mmol/L 103 CO2 22 - 30 mmol/L 22 Anion Gap 9 - 18 mmol/L 13 Calcium 8.5 - 10.2 mg/dL 9.4 eGFR >=60 mL/min/1.73m 70 Vitamin D 25 Hydroxy 31.0 - 80.0 ng/mL 30.7 (L) Component Latest Ref Rng & Units 10/19/2022 WBC 3.70 - 11.00 k/uL 9.75 RBC 4.20 - 6.00 m/uL 5.06 Hemoglobin 13.0 - 17.0 g/dL 16.3 Hematocrit 39.0 - 51.0 % 49.6 MCV 80.0 - 100.0 fL 98.0 MCH 26.0 - 34.0 pg 32.2 MCHC 30.5 - 36.0 g/dL 32.9 RDW-CV 11.5 - 15.0 % 15.2 (H) Platelet Count 150 - 400 k/uL 162 MPV 9.0 - 12.7 fL 11.5 Neut% % 61.9 Abs Neut (ANC) 1.45 - 7.50 k/uL 6.03 Lymph% % 23.5 Abs Lymph 1.00 - 4.00 k/uL 2.29 Geary% % 8.5 Abs Geary <0.87 k/uL 0.83 Eosin% % 4.7 Abs Eosin <0.46 k/uL 0.46 (H) Baso% % 0.8 Abs Baso <0.11 k/uL 0.08 Immature Gran % % 0.6 IMMATURE GRANS (ABS) <0.10 k/uL 0.06 NRBC /100 WBC 0.0 Absolute nRBC <0.01 k/uL <0.01 DTYPE Auto Component Latest Ref Rng & Units 07/05/2022 Total Cholesterol, Nonfasting <200 mg/dL 123 Triglycerides, Nonfasting <150 mg/dL 197 (H) HDL Cholesterol, Nonfasting >39 mg/dL 33 (L) LDL Cholesterol, Nonfasting <100 mg/dL 51 Non HDL Cholesterol, Nonfasting <130 mg/dL 90 VLDL Cholesterol, Nonfasting <30 mg/dL 39 (H) Total Chol/HDL Ratio, Nonfasting <5.10 mg/dL 3.73 LDL/HDL Ratio, Nonfasting <2.54 mg/dL 1.55 Hemoglobin A1C 4.3 - 5.6 % 6.8 (H) Estimated Average Glucose mg/dL 148 Hepatitis B Vaccine(1 of 3 - Risk 3-dose series) Never done Advance Directive Discussion Never done Depression Assessment Never done BP Controlled (<130/80) due on 07/04/2022 Dilated Retinal Exam due on 08/10/2022 Influenza Vaccine(1) due on 12/01/2022 HbA1C due on 01/04/2023 Shingrix Vaccine(1 of 2) due on 07/06/2023 Covid-19 Vaccine(1) due on 07/06/2023 Pneumococcal Vaccine: 65+(2 - PCV) due on 07/06/2023 Urine Albumin:Creatinine Ratio due on 07/06/2023 LDL Cholesterol due on 07/06/2023 Diabetic Foot Exam due on 07/06/2023 Prostate Cancer Screening Discussion due on 11/23/2023 Annual PCP Team Chronic Disease Visit due on 01/06/2024 Colorectal Cancer Screening due on 09/12/2028 DTaP,Tdap,Td Vaccine(2 - Td or Tdap) due on 11/22/2028 Abdominal Aortic Aneurysm Screening Completed Hepatitis C Screening Completed ASSESSMENT/PLAN: 1. Type 2 diabetes mellitus with peripheral neuropathy (HCC) - ICD9: 250.60, 357.2, ICD10: E11.42 (primary diagnosis) - Control undetermined, due for labs - jardiance is listed on medication list however patient said he is not taking this. Looks like it has not been filled in 6 months- will obtain A1c and see what it is and prescribed if necessary - Continue current medications - Statin prescribed - atorvastatin - Blood glucose monitoring on a once daily schedule - Discussed need for and benefit of weight loss. BMI 33.04 kg/(m^2) - Follow up in 6 months, sooner should any other issues arise. - HGB A1C - COMP METABOLIC PANEL 2. Essential hypertension, benign - ICD9: 401.1, ICD10: I10 - Controlled - Continue current medications - Recommend home blood pressure monitoring, to bring results to next visit - Encouraged sodium restriction, DASH or Mediterranean diet - Recommend regular aerobic exercise - Discussed need for and benefit of weight loss. BMI 33.04 kg/(m^2) - Follow up in 6 months for hypertension visit - COMP METABOLIC PANEL 3. Restless leg syndrome - ICD9: 333.94, ICD10: G25.81 - will increase requip to 4 mg at bedtime - follow-up if symptoms fail to improve 4. Hyperlipidemia with target LDL less than 100 - ICD9: 272.4, ICD10: E78.5 - Controlled - Continue current medications - Counseled on healthy diet and regular exercise - Follow up in 6 months, sooner should any other issues arise. 5. Peripheral arterial disease (HCC) - ICD9: 443.9, ICD10: I73.9 - asymptomatic - continue current medications - follow-up in 6 months, sooner if needed Audrey Packer APRN.EDENILSON Prescription instructions reviewed with patient as applicable. Patient advised if symptoms do not improve or if symptoms worsen sooner, to contact their primary care physician. Potential red flag symptoms discussed with the patient. Reviewed appropriate action plan to take if red flag symptoms occur. Patient agreeable to treatment plan. I spent a total of 25 minutes on the date of the service which included preparing to see the patient, [id number] patient care, completing clinical documentation, obtaining and/or reviewing separately obtained history, performing a medically appropriate examination, counseling and educating the patient/family/caregiver, and ordering medications, tests, or procedures. documented in this encounter [facility] 11-28-2022 Instructions Rao Hillman - 11/28/2022 11:38 AM EDT Ok to resume diabetic shoe If pain returns, return to boot and call immediately documented in this encounter [facility] 11-28-2022 History of Present illness Narrative FOLLOW UP PODIATRIC OFFICE VISIT Chief Complaint: This 67 year old who presents for follow up:right foot and ankle pain Patient presents to clinic for follow-up right foot and ankle pain. Patient has been using pneumatic boot and limiting activity. He states the pain is improving. He still has some degree of pain that is intermittent but overall, he thinks the pain is improving He still feels some tightness/swelling in his foot but for the most part, he is able to walk. He has gone without the boot a few days and he was ok. PAIN EVALUATION 11/28/2022 1120 Pain Level: 3 Pain Location: Ankle-Right Description: Sharp;Aching Frequency: Intermittent Intervention/Comfort measure: Relaxation;Reposition Comments: pneumatic boot Hemoglobin A1C Date Value Ref Range Status 07/05/2022 6.8 (H) 4.3 - 5.6 % Final Comment: [place] [employer] guidelines indicate that patients with HgbA1c in the range 5.7-6.4% are at increased risk for development of diabetes, and intervention by lifestyle modification may be beneficial. HgbA1c greater or equal to 6.5% is considered diagnostic of diabetes. PCP: Tobi Sorto MD PAST MEDICAL HISTORY Diagnosis Date Aneurysm (HCC) right common femoral artery. Dr. Ordoñez Colon polyps 08/2018 benign, repeat in 10 years Diabetes mellitus, type II (HCC) Diabetic ulcer of toe of right foot (HCC) DVT (deep venous thrombosis) (HCC) GERD (gastroesophageal reflux disease) Hyperlipidemia Hypertension Obesity PAC (premature atrial contraction) Peripheral arterial disease (HCC) Restless leg syndrome Snoring Tobacco use Current Outpatient Medications Medication Sig benzonatate (TESSALON PERLE) 100 mg capsule Take 1 capsule by mouth three times daily as needed for up to 10 days. losartan (COZAAR) 100 mg tablet Take 1 tablet by mouth once daily. gabapentin (NEURONTIN) 300 mg capsule Take one capsule three times a day for 30 days rOPINIRole 3 mg tablet Take 1 tablet by mouth daily at bedtime. (Patient taking differently: Take 2 mg by mouth daily at bedtime.) cyclobenzaprine (FLEXERIL) 5 mg tablet Take 1-2 tablets at bedtime as needed for muscle spasms naproxen (NAPROSYN) 500 mg tablet Take 1 tablet by mouth twice daily. Take with food. metFORMIN (GLUCOPHAGE) 1,000 mg tablet Take 1 tablet by mouth twice daily with meals. . atorvastatin (LIPITOR) 40 mg tablet Take 1 tablet by mouth once daily. For cholesterol. glimepiride (AMARYL) 4 mg tablet Take 2 tablets by mouth daily with breakfast. hydroCHLOROthiazide 50 mg tablet Take 1 tablet by mouth once daily. albuterol HFA (VENTOLIN HFA) 90 mcg/actuation inhaler Inhale 2 Puffs as instructed every 4 hours as needed for wheezing/shortness of breath. nystatin (MYCOSTATIN) 100,000 unit/mL suspension Take 5 mL by mouth four times daily. 1tsp swish in mouth for several minutes, then swallow (or expectorate) 4 times daily until gone. fluticasone (FLONASE) 50 mcg/actuation nasal spray Use 2 Sprays in each nostril once daily. Rinse mouth after use. empagliflozin (JARDIANCE) 10 mg tablet Take 1 tablet by mouth once daily. Take 1 tablet once daily in the morning famotidine (PEPCID) 20 mg tablet Take 1 tablet by mouth twice daily. blood sugar diagnostic (TRUE METRIX GLUCOSE TEST STRIP) test strip Test once daily DX: E11.42, E11.29 Blood Pressure Monitor (BLOOD PRESSURE KIT) 1 Each once daily. pentoxifylline ER (TRENTAL) 400 mg CR tablet Take 1 tablet by mouth three times daily with meals. Blood-Glucose Meter (TRUE METRIX AIR GLUCOSE METER) misc 1 Device twice daily. Lancets lancets Test once daily DX: E11.42. E11.29 insulin needles, DISPOSABLE, (BD INSULIN PEN NEEDLE UF) 31 gauge x 5/16 ndle 1 Each once daily. aspirin 81 mg chewable tablet Take 1 tablet by mouth once daily. Lactobacillus acidophilus (FLORAJEN ACIDOPHILUS) 20 billion cell capsule Take 1 capsule by mouth once daily. fluticasone-salmeterol (ADVAIR DISKUS) 100-50 mcg/dose inhaler Inhale 1 Puff as instructed twice daily. Rinse mouth out after use with water. (Patient not taking: Reported on 11/07/2022) No current facility-administered medications for this visit. ALLERGIES No Known Allergies PAST SURGICAL HISTORY Procedure Laterality Date COLONOSCOPY FLX DX W/COLLJ SPEC WHEN PFRMD 09/12/2018 Colonoscopy I&D ABSC; SMPL OR SGL Right 12/22/2015 Incision and drainage of right groin collection, debridement of full- thickness skin and soft tissue. 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 Physical Exam: OBJECTIVE: Constitutional: Pt is a well developed 67 year old male who is alert, oriented, cooperative and in no apparent distress. Eyes: Following during examination. No redness or drainage. Respiratory: RR normal and nonlabored. Even breathing. No evidence of distress. Psychology: Patient is engaged during conversation. Normal affect and mood. Does not appear depressed or anxious. NVSI unchanged from previous visit. Dermatological: Nails 1-5 b/l are normal. Webspaces clean and dry 1-4 b/l. Skin appears well hydrated and supple. good color, texture, turgor. No open lesions present. Callus to left hallux Musculoskeletal/Orthopaedic: Patient has no pain to palpation of right foot Temp right foot: 84 degrees Temp left foot: 82 degrees Xrays of right foot reviewed. No evidence of fracture. ASSESSMENT: (M79.671) Right foot pain (primary encounter diagnosis) (E11.42) Type 2 diabetes mellitus with peripheral neuropathy (HCC) (I73.9) PAD (peripheral artery disease) ([facility]) callus PLAN: Discussed right foot pain. Pain has resolved. Discussed getting repeat xray to assure no change compared to nov 07 xray. He declined this. Continue with diabetic shoe. If pain returns, resume boot and call immediately Callus reduced with 15 blade Smoking cessation encouraged Rao Hillman DPM AMB ROOMING INTAKE FLOWSHEET DATA Pain Pain Level: 3 Pain Location: Ankle-Right Description: Sharp, Aching Frequency: Intermittent Intervention/Comfort measure: Relaxation, Reposition Comments: pneumatic boot Patient presents with: Right Ankle - Established Patient, Follow Up, Pain Patient presents for follow up of right ankle pain. Has been wearing the pneumatic boot and limiting his activity since his last visit. States that he still gets pain in the medial side of the ankle. documented in this encounter [facility] 11-20-2022 Miscellaneous Notes Spoke with patient. Given message from provider's office. Patient verbalizes understanding. Genny Estrada RN TC to patient with no answer. Left VM to return call to office to receive results. AALIYAH Blank ----- Message from Tobi Sorto MD sent at 11/20/2022 1:22 PM EDT ----- Normal CXR. Continue albuterol PRN along with tessalon for cough. Call if not improving in 1-2 weeks with supportive care. documented in this encounter [facility] 11-20-2022 History of Present illness Narrative Chief Complaint Patient presents with: Cough: X 3 weeks and difficulty getting sleep HPI Joshua Estes is a 67 year old male who presents here today for Above Complaints.. Patient complaining of productive cough with white sputum for the last 3 weeks. Associated with mild wheezing and fatigue. Treating with OTC cough syrup, tylenol, OTC antihistamine which have not helped. Uses albuterol before bed which does improve cough somewhat. Denies fever/chills, SOB, chest pain, chest congestion, sore throat, nasal congestion, rhinorrhea, headache, myalgia, new loss of taste/smell, nausea, vomiting, diarrhea. No recent sick contacts. Stable over the last 3 weeks. Also requesting higher dose of his Requip. States 2 mg has not helped and symptoms improve with 1 1/2 tablets at night. Past medical history, appointments, medications, allergies reviewed. Previous Medical History PAST MEDICAL HISTORY Diagnosis Date Aneurysm (HCC) right common femoral artery. Dr. Ordoñez Colon polyps 08/2018 benign, repeat in 10 years Diabetes mellitus, type II (HCC) Diabetic ulcer of toe of right foot (HCC) DVT (deep venous thrombosis) (HCC) GERD (gastroesophageal reflux disease) Hyperlipidemia Hypertension Obesity PAC (premature atrial contraction) Peripheral arterial disease (HCC) Restless leg syndrome Snoring Tobacco use Previous Surgical History PAST SURGICAL HISTORY Procedure Laterality Date COLONOSCOPY FLX DX W/COLLJ SPEC WHEN PFRMD 09/12/2018 Colonoscopy I&D ABSC; SMPL OR SGL Right 12/22/2015 Incision and drainage of right groin collection, debridement of full- thickness skin and soft tissue. 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 Family History FAMILY HISTORY Problem Relation Age of Onset other (liver cancer) Mother age 34 Cancer Father age 54 Diabetes Brother Alive age 68 Asthma Other Alive age 41 No Known Problems Maternal Grandmother No Known Problems Maternal Grandfather No Known Problems Paternal Grandmother No Known Problems Paternal Grandfather Patient Allergies ALLERGIES No Known Allergies Current Medications Current Outpatient Medications on File Prior to Visit Medication Sig cyclobenzaprine (FLEXERIL) 5 mg tablet Take 1-2 tablets at bedtime as needed for muscle spasms naproxen (NAPROSYN) 500 mg tablet Take 1 tablet by mouth twice daily. Take with food. metFORMIN (GLUCOPHAGE) 1,000 mg tablet Take 1 tablet by mouth twice daily with meals. . atorvastatin (LIPITOR) 40 mg tablet Take 1 tablet by mouth once daily. For cholesterol. glimepiride (AMARYL) 4 mg tablet Take 2 tablets by mouth daily with breakfast. hydroCHLOROthiazide 50 mg tablet Take 1 tablet by mouth once daily. gabapentin (NEURONTIN) 300 mg capsule Take one capsule three times a day for 30 days rOPINIRole (REQUIP) 2 mg tablet Take 1 tablet by mouth daily at bedtime. losartan (COZAAR) 100 mg tablet Take 1 tablet by mouth once daily. albuterol HFA (VENTOLIN HFA) 90 mcg/actuation inhaler Inhale 2 Puffs as instructed every 4 hours as needed for wheezing/shortness of breath. fluticasone (FLONASE) 50 mcg/actuation nasal spray Use 2 Sprays in each nostril once daily. Rinse mouth after use. famotidine (PEPCID) 20 mg tablet Take 1 tablet by mouth twice daily. pentoxifylline ER (TRENTAL) 400 mg CR tablet Take 1 tablet by mouth three times daily with meals. aspirin 81 mg chewable tablet Take 1 tablet by mouth once daily. Lactobacillus acidophilus (FLORAJEN ACIDOPHILUS) 20 billion cell capsule Take 1 capsule by mouth once daily. fluticasone-salmeterol (ADVAIR DISKUS) 100-50 mcg/dose inhaler Inhale 1 Puff as instructed twice daily. Rinse mouth out after use with water. (Patient not taking: Reported on 11/07/2022) nystatin (MYCOSTATIN) 100,000 unit/mL suspension Take 5 mL by mouth four times daily. 1tsp swish in mouth for several minutes, then swallow (or expectorate) 4 times daily until gone. empagliflozin (JARDIANCE) 10 mg tablet Take 1 tablet by mouth once daily. Take 1 tablet once daily in the morning blood sugar diagnostic (TRUE METRIX GLUCOSE TEST STRIP) test strip Test once daily DX: E11.42, E11.29 Blood Pressure Monitor (BLOOD PRESSURE KIT) 1 Each once daily. Blood-Glucose Meter (TRUE METRIX AIR GLUCOSE METER) misc 1 Device twice daily. Lancets lancets Test once daily DX: E11.42. E11.29 insulin needles, DISPOSABLE, (BD INSULIN PEN NEEDLE UF) 31 gauge x 5/16 ndle 1 Each once daily. No current facility-administered medications on file prior to visit. Social History Social History Tobacco Use Smoking status: Every Day Packs/day: 0.25 Years: 46.00 Additional pack years: 0.00 Total pack years: 11.50 Types: Cigarettes Last attempt to quit: 12/03/2015 Years since quittin.9 Smokeless tobacco: Never Tobacco comments: Started to smoke again, 1 pack a week Vaping Use Vaping Use: Never used Substance Use Topics Alcohol use: No Drug use: No Review of Symptoms REVIEW OF SYSTEMS See HPI EXAM: BP 124/74 Pulse 69 Temp 36.5 C (97.7 F) Resp 16 Wt 112.1 kg (247 lb 3.2 oz) SpO2 96% BMI 33.07 kg/m General Appearance: Well appearing, alert, in no acute distress, well-hydrated, well nourished.. Skin: Skin color, texture, turgor normal, no suspicious rashes or lesions. Head: Normocephalic, no masses, lesions, tenderness or abnormalities. Eyes: Anicteric sclera. Pupils are equally round and reactive to light. Extraocular movements are intact. . Ears: External ears normal, canals clear. Nose/Sinuses: Nares normal, septum midline, mucosa normal, no drainage or sinus tenderness. Oropharynx: Lips, mucosa, and tongue normal, teeth and gums normal, oropharynx normal. Neck: Supple, no adenopathy; thyroid symmetric, normal size, no bruits. Lungs: Decreased lung sounds in left base with rhonchi without rales or consolidation. Heart: RRR without murmur, gallop, or rubs. No ectopy. Health Maintenance List ADVANCE DIRECTIVE DISCUSSION Never done DEPRESSION ASSESSMENT Never done BP CONTROLLED (<130/80) due on 07/04/2022 DILATED RETINAL EXAM due on 08/10/2022 SHINGRIX VACCINE(1 of 2) due on 07/06/2023 COVID-19 VACCINE(1) due on 07/06/2023 PNEUMOCOCCAL: 65+(2 - PCV) due on 07/06/2023 INFLUENZA(1) due on 12/01/2022 HBA1C due on 01/04/2023 URINE ALBUMIN:CREATININE RATIO due on 07/06/2023 LDL CHOLESTEROL due on 07/06/2023 DIABETIC FOOT EXAM due on 07/06/2023 ANNUAL PCP TEAM CHRONIC DISEASE VISIT due on 10/19/2023 PROSTATE CANCER SCREENING DISCUSSION due on 11/23/2023 COLORECTAL CANCER SCREENING due on 09/12/2028 DTAP,TDAP,TD(2 - Td or Tdap) due on 11/22/2028 ABDOMINAL AORTIC ANEURYSM SCREENING Completed HEPATITIS C SCREENING Completed ASSESSMENT/PLAN: 1. Decreased breath sounds at left lung base - ICD9: 786.7, ICD10: R06.89 (primary diagnosis) Suspect viral illness/bronchitis. Obtain CXR and will treat cough with tessalon and albuterol PRN. Discussed supportive care. Red flags for re-assessment reviewed with patient in detail. - BENZONATATE 100 MG CAPSULE - XR CHEST 2V FRONTAL/LAT 2. Chronic cough - ICD9: 786.2, ICD10: R05.3 See above. - BENZONATATE 100 MG CAPSULE - XR CHEST 2V FRONTAL/LAT 3. Essential hypertension, benign - ICD9: 401.1, ICD10: I10 - Controlled - Continue current medications - Recommend home blood pressure monitoring, to bring results to next visit - Encouraged sodium restriction, DASH or Mediterranean diet - Recommend regular aerobic exercise - LOSARTAN 100 MG TABLET 4. Restless leg syndrome - ICD9: 333.94, ICD10: G25.81 Uncontrolled on current dose of requip. Increase to 3 mg qhs. Call if not improving in 1-2 weeks. - ROPINIROLE 3 MG TABLET Tobi Sorto MD documented in this encounter [facility] 11-08-2022 Miscellaneous Notes Patient called. Verified name and date of . Patient is planning to use his current boot. Also informed of Looker message regarding results and x-rays. Patient verbalizes understanding. Sheryl Hendrix LPN Called patient to provided below instructions. No response. Left VM. Bekah Flynn LPN Images from the original note were not included. Rao Hillman [facility] Pool 1 hour ago (7:06 AM) I would prefer that he have a fully functional boot but if he is unable to come in for a new boot, his current boot is fine Rao Hillman DPM Pt. calling in stating that he found boot at home and wondering if this is acceptable to wear on foot instead of getting another one? The boot he has done not have a top cover/ shield that goes across the top of the foot, so he wants to be sure that this is not an issue. Please advise and call or send MC message to pt. Mady Singh RN documented in this encounter [facility] 11-07-2022 Miscellaneous Notes Patient phones requesting refills as follows: Requested Prescriptions Pending Prescriptions Disp Refills cyclobenzaprine (FLEXERIL) 5 mg tablet 30 tablet 1 Sig: Take 1-2 tablets at bedtime as needed for muscle spasms SRUTHI 10/18/22 NOV 01/05/23 Please review and advise. Dolores Jama LPN documented in this encounter [facility] 11-07-2022 History of Present illness Narrative Radiology Service Progress Note PATIENT NAME: Joshua Estes DATE OF SERVICE: November 07, 2022 TIME: 12:34 PM PATIENT IDENTITY VERIFICATION COMPLETED USING TWO (2) IDENTIFIERS: Name and Date of confirmed by patient verbally. FALL SCREENING: Has the patient had 2 falls in the last year or 1 fall with injury or currently using an Ambulatory Assistive Device (Walker, Cane, Wheelchair, Crutches, etc.)? No PATIENT GENDER DATA: Male PATIENT RELEVANT IMPLANT DATA REVIEWED: Not Applicable RADIOLOGY DEPARTMENT: General X-ray: Exam(s) Completed: Lower Extremity X-Ray(s): Foot, Bilateral and Wt. Bearing PERIPHERAL IV DATA: Not applicable SIGNED BY: RT Gabrielle(R) November 07, 2022 12:34 PM documented in this encounter [facility] 11-07-2022 Rao Waldrop - 11/07/2022 11:32 AM EDT Regarding right foot pain. Biggest concern is possible charcot. Will place you in a boot. There is increased risk of blood clot while in boot. You take aspirin which should lower risk. If you develop any calf pain, present to ED Repeat xrays today F/u in 2 weeks to see how you are doing Check vitamin d Diabetes Foot Care Instructions When you have diabetes, proper foot care is very important. Poor foot care may lead to amputation of a foot or leg. As a person with diabetes, you are more vulnerable to foot problems, because diabetes can damage your nerves and reduce blood flow to your feet. Here are some diabetes foot care tips to follow: Wash and Dry Your Feet Daily Use mild soaps Use warm water Pat your skin dry; do not rub. Thoroughly dry your feet. After washing, use lotion on your feet to prevent cracking. Do not put lotion between your toes. Examine Your Feet Each Day Check the tops and bottoms of your feet. Have someone else look at your feet if you cannot see them. Check for dry, cracked skin. Look for blisters, cuts, scratches, or other sores. Check for redness, increased warmth, or tenderness when touching any area of your feet. Check for ingrown toenails, corns, and calluses. If you get a blister or sore from your shoes, do not pop it. Apply a bandage and wear a different pair of shoes. Take Care of Your Toenails Cut toenails after bathing, when they are soft. Cut toenails straight across and smooth with a nail file. Avoid cutting into the corners of toes. Do not cut cuticles. If you have neuropathy (or decreased sensation in your feet) a paste up worker should always cut your toenails. Be Careful When Exercising Walk and exercise in comfortable shoes. Do not exercise when you have open sores on your feet. Protect Your Feet With Shoes and Socks Never go barefoot. Always protect your feet by wearing shoes or hard-soled slippers or footwear. Avoid shoes with high heels and pointed toes. Avoid shoes that expose your toes or heels (such as open-toed shoes or sandals). These types of shoes increase your risk for injury and potential infections. Try on new footwear with the type of socks you usually wear. Do not wear new shoes for more than an hour at a time. Change your socks daily. Look and feel inside your shoes before putting them on to make sure there are no foreign objects or rough areas. Avoid tight socks. Wear natural-fiber socks (cotton, wool, or a cotton-wool blend). Wear special shoes if your health care provider recommends them. Wear shoes/boots that will protect your feet from various weather conditions (cold, moisture, etc.). Make sure your shoes fit properly. If you have neuropathy (nerve damage), you may not notice that your shoes are too tight. Perform the footwear test described below. Footwear Test Use this simple test to see if your shoes fit correctly: Stand on a piece of paper. (Make sure you are standing and not sitting, because your foot changes shape when you stand.) Trace the outline of your foot. Trace the outline of your shoe. Compare the tracings: Is the shoe too narrow? Is your foot crammed into the shoe? The shoe should be at least 1/2 inch longer than your longest toe and as wide as your foot. Proper Shoe Choices The following types of shoes are best for people with diabetes Closed toes and heels Leather uppers without a seam inside At least 1/2 inch extra space at the end of your longest toe Inside of shoe should be soft with no rough areas Outer sole should be made of stiff material Shoes should be at least as wide as your feet Tips for Foot Care in Diabetes Don't wait to treat a minor foot problem if you have diabetes. Follow your health care provider's guidelines and first aid guidelines. Report foot injuries and infections to your health care provider immediately. Check water temperature with your elbow, not your foot. Do not use a heating pad on your feet. Do not cross your legs. Do not self-treat your corns, calluses, or other foot problems. Go to your health care provider or paste up worker to treat these conditions. documented in this encounter [facility] 11-07-2022 History of Present illness Narrative Chief Complaint: This 67 year old male who presents with chief complaint:right foot pain HPI Patient presents to clinic for evaluation of his right foot. He states that two weeks ago, he developed pain and swelling in his right foot. He states he could barely walk. He contacted his pcp and they ordered an ultrasound which was apparently negative. Patient still has pain and swelling to his right foot. Patient has pain to the bottom of his right foot. He states the entire plantar aspect of his right foot is causing him pain. PAIN EVALUATION 11/07/2022 1059 Pain Level: 3 Pain Location: Foot-Right Description: Burning Duration Units: Months Frequency: Continuous Intervention/Comfort measure: Relaxation Hemoglobin A1C (%) Date Value 07/05/2022 6.8 01/03/2022 6.6 07/05/2021 8.1 02/21/2021 6.8 06/11/2020 8.1 03/06/2020 7.6 11/18/2019 7.3 05/05/2019 8.6 PCP: Tobi Sorto MD PAST MEDICAL HISTORY Diagnosis Date Aneurysm (HCC) right common femoral artery. Dr. Ordoñez Colon polyps 08/2018 benign, repeat in 10 years Diabetes mellitus, type II (HCC) Diabetic ulcer of toe of right foot (HCC) DVT (deep venous thrombosis) (HCC) GERD (gastroesophageal reflux disease) Hyperlipidemia Hypertension Obesity PAC (premature atrial contraction) Peripheral arterial disease (HCC) Restless leg syndrome Snoring Tobacco use Current Outpatient Medications Medication Sig naproxen (NAPROSYN) 500 mg tablet Take 1 tablet by mouth twice daily. Take with food. Lactobacillus acidophilus (FLORAJEN ACIDOPHILUS) 20 billion cell capsule Take 1 capsule by mouth once daily. cyclobenzaprine (FLEXERIL) 5 mg tablet Take 1-2 tablets at bedtime as needed for muscle spasms metFORMIN (GLUCOPHAGE) 1,000 mg tablet Take 1 tablet by mouth twice daily with meals. . atorvastatin (LIPITOR) 40 mg tablet Take 1 tablet by mouth once daily. For cholesterol. glimepiride (AMARYL) 4 mg tablet Take 2 tablets by mouth daily with breakfast. hydroCHLOROthiazide 50 mg tablet Take 1 tablet by mouth once daily. gabapentin (NEURONTIN) 300 mg capsule Take one capsule three times a day for 30 days rOPINIRole (REQUIP) 2 mg tablet Take 1 tablet by mouth daily at bedtime. losartan (COZAAR) 100 mg tablet Take 1 tablet by mouth once daily. albuterol HFA (VENTOLIN HFA) 90 mcg/actuation inhaler Inhale 2 Puffs as instructed every 4 hours as needed for wheezing/shortness of breath. nystatin (MYCOSTATIN) 100,000 unit/mL suspension Take 5 mL by mouth four times daily. 1tsp swish in mouth for several minutes, then swallow (or expectorate) 4 times daily until gone. empagliflozin (JARDIANCE) 10 mg tablet Take 1 tablet by mouth once daily. Take 1 tablet once daily in the morning famotidine (PEPCID) 20 mg tablet Take 1 tablet by mouth twice daily. blood sugar diagnostic (TRUE METRIX GLUCOSE TEST STRIP) test strip Test once daily DX: E11.42, E11.29 Blood Pressure Monitor (BLOOD PRESSURE KIT) 1 Each once daily. pentoxifylline ER (TRENTAL) 400 mg CR tablet Take 1 tablet by mouth three times daily with meals. Blood-Glucose Meter (TRUE METRIX AIR GLUCOSE METER) misc 1 Device twice daily. Lancets lancets Test once daily DX: E11.42. E11.29 insulin needles, DISPOSABLE, (BD INSULIN PEN NEEDLE UF) 31 gauge x 5/16 ndle 1 Each once daily. aspirin 81 mg chewable tablet Take 1 tablet by mouth once daily. fluticasone-salmeterol (ADVAIR DISKUS) 100-50 mcg/dose inhaler Inhale 1 Puff as instructed twice daily. Rinse mouth out after use with water. (Patient not taking: Reported on 11/07/2022) fluticasone (FLONASE) 50 mcg/actuation nasal spray Use 2 Sprays in each nostril once daily. Rinse mouth after use. (Patient not taking: Reported on 11/07/2022) No current facility-administered medications for this visit. ALLERGIES No Known Allergies PAST SURGICAL HISTORY Procedure Laterality Date COLONOSCOPY FLX DX W/COLLJ SPEC WHEN PFRMD 09/12/2018 Colonoscopy I&D ABSC; SMPL OR SGL Right 12/22/2015 Incision and drainage of right groin collection, debridement of full- thickness skin and soft tissue. 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 FAMILY HISTORY Problem Relation Age of Onset other (liver cancer) Mother age 34 Cancer Father age 54 Diabetes Brother Alive age 68 Asthma Other Alive age 41 No Known Problems Maternal Grandmother No Known Problems Maternal Grandfather No Known Problems Paternal Grandmother No Known Problems Paternal Grandfather Social History Tobacco Use Smoking status: Every Day Packs/day: 0.25 Years: 46.00 Total pack years: 11.50 Types: Cigarettes Last attempt to quit: 12/03/2015 Years since quittin.9 Smokeless tobacco: Never Tobacco comments: Started to smoke again, 1 pack a week Vaping Use Vaping Use: Never used Substance Use Topics Alcohol use: No Drug use: No REVIEW OF SYSTEMS GENERAL: Negative for Malaise, significant weight loss, fever RESPIRATORY: Negative for cough, wheezing and shortness of breath CARDIOVASCULAR: Negative for chest pain, leg swelling and palpitations GI: Negative for abdominal discomfort, blood in stools or black stools and change in bowel habits : Negative for dysuria, frequency and incontinence MUSCULOSKELETAL: Negative for joint pain or swelling, back pain, and muscle pain. SKIN: Negative for lesions, rash, and itching. HEMATOLOGY/LYMPHOLOGY Negative for prolonged bleeding, bruising easily, and swollen nodes. ENDOCRINE: Negative for cold or heat intolerance, polyuria, polydipsia and goiter. NEURO: negative Physical Exam: Constitutional: Pt is a well developed 67 year old male who is alert, oriented and cooperative Eyes: Following during examination. No redness or drainage. Respiratory: RR normal and nonlabored. Even breathing. No evidence of distress or shortness of breath. Psychology: Patient is engaged during conversation. Normal affect and mood. Does not appear depressed or anxious during encounter. Vascular: Dorsalis pedis and posterior tibial pulses faintly palpable right and nonpalpable left Capillary Fill time < 5 seconds to digits 1-5 b/l Skin temperature warm to cool proximal to distal b/l Hair growth absent to digits Neurological: absent light touch/epicritic sensation Vibratory sensation absent b/l absent protective sensation + significant neurological deficits Dermatological: Nails 1-5 b/l appear elongated, dystrophic, discolored, painful. Webspaces clean and dry 1-4 b/l. Skin appears dry, thin and ruborous. No open lesions present. Callus present to left hallux. No callus right hallux. Callus to left forefoot along 5th metatarsal Musculoskeletal/Orthopaedic: Patient has pain to palpation of right midfoot Foot type is neutral structurally AJ ROM is decreased with knee extended and flexed 1st MPJ is decreased when loaded and no pain or crepitus are noted with ROM. MTJ, STJ are full and free of pain and crepitus. +5/5 muscle strength dorsiflexion, plantarflexion, inversion, eversion b/l Temperature of right foot: 88 degrees Temperature of left foot: 82 degrees Radiographs: 3 views right foot reviewed from mid September. I have personally reviewed and interpreted these XR myself: no fracture. ASSESSMENT: (M79.671) Right foot pain (primary encounter diagnosis) (M14.671) Charcot ankle, right (B35.1) Onychomycosis (M79.674) Pain in toe of right foot (M79.675) Pain in toe of left foot (L85.9) Hyperkeratosis (E11.42) Type 2 diabetes mellitus with peripheral neuropathy (HCC) (I73.9) PAD (peripheral artery disease) (HCC) PLAN: 1. History and physical examination performed. 2. XR reviewed with patient and interpreted today 3. Discussed right foot pain. My greatest concern is possible charcot in a patient with neuropathy who has asymetrical swelling and warmth. Will place him in boot, check repeat xrays and check vitamin d. Will call with results but recommend limiting activity until we see more xrays. 4. Callus reduced to left hallux with 15 blade and dremmel. Continue with lotion 5. Toenails 1-5 b/l debrided in length and thickness. Q8 modifier Rao Hillman DPM Podiatry [address] [facility] [address] Dept: [phone] Dept Patient presents with: Right Foot - Pain, Established Patient AMB ROOMING INTAKE FLOWSHEET DATA Pain Pain Level: 3 Pain Location: Foot-Right Description: Burning Duration Units: Months Frequency: Continuous Intervention/Comfort measure: Relaxation Right foot pain that is aggravated with walking. Pain relief is achieved by elevating in recliner. documented in this encounter [facility] 10-18-2022 History of Present illness Narrative Radiology Service Progress Note PATIENT NAME: Joshua Estes DATE OF SERVICE: October 18, 2022 TIME: 10:33 AM PATIENT IDENTITY VERIFICATION COMPLETED USING TWO (2) IDENTIFIERS: Name and Date of confirmed by patient verbally. FALL SCREENING: Has the patient had 2 falls in the last year or 1 fall with injury or currently using an Ambulatory Assistive Device (Walker, Cane, Wheelchair, Crutches, etc.)? Yes, Patient High Risk for Falls What interventions were put in place to prevent falls during this visit? Offered Assistance with Transfers/Clothing, Instructed Patient to Remain Seated (Not on Exam Table) Until Exam, and Increased Observations by Caregivers PATIENT GENDER DATA: Male PATIENT RELEVANT IMPLANT DATA REVIEWED: Not Applicable RADIOLOGY DEPARTMENT: General X-ray: Exam(s) Completed: Lower Extremity X-Ray(s): Foot, Right PERIPHERAL IV DATA: Not applicable SIGNED BY: RT Vla(R) October 18, 2022 10:33 AM documented in this encounter [facility] 10-18-2022 Instructions Lita Abel APRN.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 SPECIALIST - 10/18/2022 8:35 AM EDT Get the xray. Get the ultrasound. Get labs. Start the doxycycline. Let us know if any recurrence of diarrhea. Start a probiotic. stack supervisor an [id number] if the prescription isn't covered. Short course of ibuprofen or naproxen to help with pain/inflammation. Schedule w/ podiatry. documented in this encounter [facility] 10-18-2022 History of Present illness Narrative This is a 67 year old male who presents today with: Patient presents with: Acute Visit: R foot pain x5 days; some swelling/redness; sudden onset, no injury HISTORY OF PRESENT ILLNESS: Joshua Estes is a 67 year old male. Patient presents with: Acute Visit: R foot pain x5 days; some swelling/redness; sudden onset, no injury Pt presents today with complaint of right foot pain. Started Sunday night when he stood up. Excruciating. Little bit of swelling and a little bit of redness around big toe. Had surgery about 4 years ago. Refers that pain is only affecting the bottom of the foot. Describes pain as sharp in nature. Not painful if he is not putting pressure on the foot. Has been taking tylenol. Hx has a hx of neuropathy that affects to just below the knees. No hx of gout. + hx of DVT. He does follow w/ podiatry. PAST MEDICAL HISTORY: PAST MEDICAL HISTORY Diagnosis Date Aneurysm (HCC) right common femoral artery. Dr. Ordoñez Colon polyps 08/2018 benign, repeat in 10 years Diabetes mellitus, type II (HCC) Diabetic ulcer of toe of right foot (HCC) DVT (deep venous thrombosis) (HCC) GERD (gastroesophageal reflux disease) Hyperlipidemia Hypertension Obesity PAC (premature atrial contraction) Peripheral arterial disease (HCC) Restless leg syndrome Snoring Tobacco use PAST SURGICAL HISTORY Procedure Laterality Date COLONOSCOPY FLX DX W/COLLJ SPEC WHEN PFRMD 09/12/2018 Colonoscopy I&D ABSC; SMPL OR SGL Right 12/22/2015 Incision and drainage of right groin collection, debridement of full- thickness skin and soft tissue. 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 ALLERGIES Patient has no known allergies. MEDICATIONS Current Outpatient Medications Medication Sig cyclobenzaprine (FLEXERIL) 5 mg tablet Take 1-2 tablets at bedtime as needed for muscle spasms metFORMIN (GLUCOPHAGE) 1,000 mg tablet Take 1 tablet by mouth twice daily with meals. . atorvastatin (LIPITOR) 40 mg tablet Take 1 tablet by mouth once daily. For cholesterol. glimepiride (AMARYL) 4 mg tablet Take 2 tablets by mouth daily with breakfast. hydroCHLOROthiazide 50 mg tablet Take 1 tablet by mouth once daily. gabapentin (NEURONTIN) 300 mg capsule Take one capsule three times a day for 30 days rOPINIRole (REQUIP) 2 mg tablet Take 1 tablet by mouth daily at bedtime. fluticasone-salmeterol (ADVAIR DISKUS) 100-50 mcg/dose inhaler Inhale 1 Puff as instructed twice daily. Rinse mouth out after use with water. losartan (COZAAR) 100 mg tablet Take 1 tablet by mouth once daily. albuterol HFA (VENTOLIN HFA) 90 mcg/actuation inhaler Inhale 2 Puffs as instructed every 4 hours as needed for wheezing/shortness of breath. nystatin (MYCOSTATIN) 100,000 unit/mL suspension Take 5 mL by mouth four times daily. 1tsp swish in mouth for several minutes, then swallow (or expectorate) 4 times daily until gone. fluticasone (FLONASE) 50 mcg/actuation nasal spray Use 2 Sprays in each nostril once daily. Rinse mouth after use. empagliflozin (JARDIANCE) 10 mg tablet Take 1 tablet by mouth once daily. Take 1 tablet once daily in the morning famotidine (PEPCID) 20 mg tablet Take 1 tablet by mouth twice daily. blood sugar diagnostic (TRUE METRIX GLUCOSE TEST STRIP) test strip Test once daily DX: E11.42, E11.29 Blood Pressure Monitor (BLOOD PRESSURE KIT) 1 Each once daily. pentoxifylline ER (TRENTAL) 400 mg CR tablet Take 1 tablet by mouth three times daily with meals. Blood-Glucose Meter (TRUE METRIX AIR GLUCOSE METER) misc 1 Device twice daily. Lancets lancets Test once daily DX: E11.42. E11.29 insulin needles, DISPOSABLE, (BD INSULIN PEN NEEDLE UF) 31 gauge x 5/16 ndle 1 Each once daily. aspirin 81 mg chewable tablet Take 1 tablet by mouth once daily. No current facility-administered medications for this visit. FAMILY HISTORY Problem Relation Age of Onset other (liver cancer) Mother age 34 Cancer Father age 54 Diabetes Brother Alive age 68 Asthma Other Alive age 41 No Known Problems Maternal Grandmother No Known Problems Maternal Grandfather No Known Problems Paternal Grandmother No Known Problems Paternal Grandfather Social History Tobacco Use Smoking status: Every Day Packs/day: 0.25 Years: 46.00 Total pack years: 11.50 Types: Cigarettes Last attempt to quit: 12/03/2015 Years since quittin.8 Smokeless tobacco: Never Tobacco comments: Started to smoke again, 1 pack a week Vaping Use Vaping Use: Never used Substance Use Topics Alcohol use: No Drug use: No EXAM: BP 116/82 Pulse 84 Resp 16 PHYSICAL EXAM: General Appearance: Well appearing, alert, in no acute distress, well-hydrated, well nourished.. Skin: Skin color, texture, turgor normal, no suspicious rashes or lesions. Head: Normocephalic, no masses, lesions, tenderness or abnormalities. Eyes: Anicteric sclera. Pupils are equally round and reactive to light. Extraocular movements are intact. . Lungs: Lungs clear to auscultation. No wheezing, rhonchi, rales.. Heart: RRR without murmur, gallop, or rubs. No ectopy. Extremities: RLE with more redness than the left and some mild swelling up to mid calf area. Pain to palpate along the bottom of the foot. Right great toe with dark line (pt reports previous incision line) and a pea-sized red area by the incision line that appears with vulnerable/thin skin. Neurologic: Gait normal. ASSESSMENT/PLAN: 1. Foot pain, right - ICD9: 729.5, ICD10: M79.671 (primary diagnosis) Will get xray to r/o charcot arthropathy. Get labs to r/o elevated white count/uric acid. Will get ultrasound of the leg to r/o DVT, as patient has hx. Will go ahead and start doxy to cover for infection. Pt has hx of c.diff infection -- will also start probiotic. He is aware to call with any recurrence of diarrhea. - XR FOOT GENERAL 3V AP/LAT/OBL RIGHT - CBC + DIFF - URIC ACID BLOOD - SED RATE WESTERGREN - BASIC METABOLIC PNL 2. Cellulitis of skin - ICD9: 682.9, ICD10: L03.90 - DOXYCYCLINE HYCLATE 100 MG TABLET - FLORAJEN ACIDOPHILUS 20 BILLION CELL CAPSULE 3. Foot swelling - ICD9: 729.81, ICD10: M79.89 - US DVT LOWER RIGHT - US LEG VEIN DVT UNL VAS LAB Discussed treatment plan and patient voices understanding. Patient's questions answered appropriately. Medications and potential side effects were discussed and patient voices understanding. Return to the office as scheduled or as needed for worsening/no improvement. Lita Abel APRN.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 SPECIALIST documented in this encounter [facility] 09-18-2022 Miscellaneous Notes SRUTHI 07/05/22 NOV 01/05/23 Tawny Santos MA Patient has been identified by name and date of : Yes Requested Prescriptions Pending Prescriptions Disp Refills cyclobenzaprine (FLEXERIL) 5 mg tablet 30 tablet 1 Sig: Take 1-2 tablets at bedtime as needed for muscle spasms RX INSTRUCTIONS: Patient aware RX will be sent to pharmacy. No need to notify patient. Ebony Burnham Pss documented in this encounter [facility] 08-29-2022 Miscellaneous Notes Ropinirole 2 mg sent to pharmacy as 90 day supply with 1 refill on 06/01/22 and atorvastatin 40 mg sent to pharmacy as 90 day supply with 1 refill on 08/23/22. Patient has been identified by name and date of : Yes Requested Prescriptions Pending Prescriptions Disp Refills atorvastatin (LIPITOR) 40 mg tablet 90 tablet 1 Sig: Take 1 tablet by mouth once daily. For cholesterol. rOPINIRole (REQUIP) 2 mg tablet 90 tablet 1 Sig: Take 1 tablet by mouth daily at bedtime. RX INSTRUCTIONS: Patient aware RX will be sent to pharmacy. No need to notify patient. Patricia Lacy Pss documented in this encounter [facility] 07-20-2022 History of Present illness Narrative POPULATION HEALTH NAVIGATION OUTREACH Action/FYI Left message that YASMANI is due to be completed AD Patient Identified by Name and : NO Outreach Outcome/Action Unable to reach patient: Left message MyChart message sent Did you use a PCP flex slot to schedule this appointment? N/A Reason for Outreach Care Gap or Scheduling/Wellness visits Payer: Payor: [employer] MEDICARE / Plan: [employer] MEDICARE PPO / Product Type: PPO / Care Gap Reviewed:: Diabetic Eye Exam Reminder: Reminder note to check Health Maintenance for items below Health Maintenance items due: ADVANCE DIRECTIVE DISCUSSION Never done DEPRESSION ASSESSMENT Never done BP CONTROLLED (<130/80) due on 07/04/2022 DILATED RETINAL EXAM due on 08/10/2022 Navigation Signature: Dori Barry July 20, 2022 11:16 AM documented in this encounter [facility] 07-12-2022 Miscellaneous Notes PDMP website checked and validated. All prescriptions have been APPROPRIATELY filled. No suspicious activity was identified. 07/12/2022 by Tobi Sorto MD Patient has been identified by name and date of : Yes Requested Prescriptions Pending Prescriptions Disp Refills gabapentin (NEURONTIN) 300 mg capsule 270 capsule 1 Sig: Take one capsule three times a day for 30 days SRUTHI-07/05/22 Labs-07/05/22 NOV-01/05/23 RX INSTRUCTIONS: Patient aware RX will be sent to pharmacy. No need to notify patient. Mamie Comer Pss documented in this encounter [facility] 2022 Miscellaneous Notes Patient returned call and given provider's message below with verbalized understanding. Message left for patient to return call to receive provider's message regarding his labs. ----- Message from Tobi Sorto MD sent at 07/06/2022 3:09 PM EDT ----- Diabetes well controlled. Cholesterol in good range. Urine albumin levels are high. Would have him continue to work on low carb diet, push PO fluids, and continue losartan for kidney protection. Other labs unremarkable. No change to regimen. documented in this encounter [facility] 06-29-2022 Miscellaneous Notes Patient has been identified by name and date of : Yes Last office visit in this department: 05/24/2022 RX INSTRUCTIONS: Patient aware RX will be sent to pharmacy. No need to notify patient. Patient phones requesting refills as follows: Requested Prescriptions Pending Prescriptions Disp Refills cyclobenzaprine (FLEXERIL) 5 mg tablet 30 tablet 1 Sig: Take 1-2 tablets at bedtime as needed for muscle spasms Please review and advise. Jael Bass documented in this encounter [facility] 06-05-2022 History of Present illness Narrative Last saw Audrey Podlogar: 05/24/22 Subjective: Patient presents to clinic c/o painful toenails. They state that the nails are especially painful with shoe gear and pressure. Patient states that nails 1-5 b/l are painful. Patient admits to being diabetic. He complains of painful callus of left 4th toe. No other pedal complaints at this time. Patient states no change in medications or medical history since last visit. Objective: Patient presents to clinic ambulating in diabetic shoes Vasc: DP and PT pulses are nonpalpable bilateral. CFT is less than 5 seconds bilateral. Skin temperature is warm to cool proximal to distal bilateral. There is moderate edema or varicosities noted. Neuro: Protective sensation is absent to the foot and toes when tested with the 5.07 SWM bilateral. Vibratory sensation is absent at the hallux IPJ bilateral. The hallux is downgoing bilateral. Derm: Nails 1-5 b/l are painful, discolored-yellow, thick, crumbly, dystrophic and with subungal debris. Skin is dry, pallor and hair growth is absent bilateral. There are callus to left 4th interspace, left hallux, right 2nd interspace. No ulcerations, scars, verruca or other lesions noted. Ortho: Muscle strength is 5/5 for all pedal groups tested. Ankle joint DF is decreased with the knee extended with no pain or crepitus noted. 1st MPJ ROM is decreased bilateral. Assessment: (B35.1) Onychomycosis (primary encounter diagnosis) (M79.674) Pain in toe of right foot (M79.675) Pain in toe of left foot (L85.9) Hyperkeratosis (E11.42) Type 2 diabetes mellitus with peripheral neuropathy (HCC) (I73.9) PAD (peripheral artery disease) (HCC) Plan: Patient was seen and evaluated. Nails 1-5 bilateral were debrided in length and thickness. Callus to left 4th interspace, left hallux and right 2nd interspace reduced with 15 blade and dremmel. Continue with lotion. Diabetic shoes ordered. Patient was instructed on the continued importance of diabetic foot care along with proper diet and keeping their blood sugar under control to prevent complications. Patient is to RTC in 3-4 months. Smoking cessation performed Rao Hillman DPM Patient presents with: Left Foot - Established Patient, Follow Up, Diabetic Foot Care, Callous Right Foot - Established Patient, Follow Up, Diabetic Foot Care Patient presents for 3 month diabetic nail care. Patient also states that there is a callous to the left foot that has been bothering him the last few days. documented in this encounter [facility] 06-05-2022 Instructions Rao Hillman - 06/05/2022 11:09 AM EST Diabetes Foot Care Instructions When you have diabetes, proper foot care is very important. Poor foot care may lead to amputation of a foot or leg. As a person with diabetes, you are more vulnerable to foot problems, because diabetes can damage your nerves and reduce blood flow to your feet. Here are some diabetes foot care tips to follow: Wash and Dry Your Feet Daily Use mild soaps Use warm water Pat your skin dry; do not rub. Thoroughly dry your feet. After washing, use lotion on your feet to prevent cracking. Do not put lotion between your toes. Examine Your Feet Each Day Check the tops and bottoms of your feet. Have someone else look at your feet if you cannot see them. Check for dry, cracked skin. Look for blisters, cuts, scratches, or other sores. Check for redness, increased warmth, or tenderness when touching any area of your feet. Check for ingrown toenails, corns, and calluses. If you get a blister or sore from your shoes, do not pop it. Apply a bandage and wear a different pair of shoes. Take Care of Your Toenails Cut toenails after bathing, when they are soft. Cut toenails straight across and smooth with a nail file. Avoid cutting into the corners of toes. Do not cut cuticles. If you have neuropathy (or decreased sensation in your feet) a paste up worker should always cut your toenails. Be Careful When Exercising Walk and exercise in comfortable shoes. Do not exercise when you have open sores on your feet. Protect Your Feet With Shoes and Socks Never go barefoot. Always protect your feet by wearing shoes or hard-soled slippers or footwear. Avoid shoes with high heels and pointed toes. Avoid shoes that expose your toes or heels (such as open-toed shoes or sandals). These types of shoes increase your risk for injury and potential infections. Try on new footwear with the type of socks you usually wear. Do not wear new shoes for more than an hour at a time. Change your socks daily. Look and feel inside your shoes before putting them on to make sure there are no foreign objects or rough areas. Avoid tight socks. Wear natural-fiber socks (cotton, wool, or a cotton-wool blend). Wear special shoes if your health care provider recommends them. Wear shoes/boots that will protect your feet from various weather conditions (cold, moisture, etc.). Make sure your shoes fit properly. If you have neuropathy (nerve damage), you may not notice that your shoes are too tight. Perform the footwear test described below. Footwear Test Use this simple test to see if your shoes fit correctly: Stand on a piece of paper. (Make sure you are standing and not sitting, because your foot changes shape when you stand.) Trace the outline of your foot. Trace the outline of your shoe. Compare the tracings: Is the shoe too narrow? Is your foot crammed into the shoe? The shoe should be at least 1/2 inch longer than your longest toe and as wide as your foot. Proper Shoe Choices The following types of shoes are best for people with diabetes Closed toes and heels Leather uppers without a seam inside At least 1/2 inch extra space at the end of your longest toe Inside of shoe should be soft with no rough areas Outer sole should be made of stiff material Shoes should be at least as wide as your feet Tips for Foot Care in Diabetes Don't wait to treat a minor foot problem if you have diabetes. Follow your health care provider's guidelines and first aid guidelines. Report foot injuries and infections to your health care provider immediately. Check water temperature with your elbow, not your foot. Do not use a heating pad on your feet. Do not cross your legs. Do not self-treat your corns, calluses, or other foot problems. Go to your health care provider or paste up worker to treat these conditions. documented in this encounter [facility] 06-01-2022 Miscellaneous Notes SRUTHI 05/24/22 NOV 07/05/22 Patient has been identified by name and date of : Yes Requested Prescriptions Pending Prescriptions Disp Refills atorvastatin (LIPITOR) 40 mg tablet 90 tablet 1 Sig: Take 1 tablet by mouth once daily. For cholesterol. rOPINIRole (REQUIP) 2 mg tablet 90 tablet 1 Sig: Take 1 tablet by mouth daily at bedtime. RX INSTRUCTIONS: Patient aware RX will be sent to pharmacy. No need to notify patient. Tawny Whelan Pss documented in this encounter [facility] 05-24-2022 Instructions Audrey Packer APRN.EDENILSON - 05/24/2022 10:03 AM EST Update me in two weeks with BP readings documented in this encounter [facility] 05-24-2022 History of Present illness Narrative adv05/24/2022 Patient presents with: F/U 1 month SUBJECTIVE: This is a 66 year old that is here today for Above Complaints.. Changed to losartan at last visit due to cough. Also started on albuterol inhaler. Spirometry testing completed- see results below.Reports some mild improvement. Still dry cough productive of clear sputum at times. Gets sharp pain back of head when he coughs, goes away after coughing. Has been checking BP at home daily. Most readings 157/70's. Admits SOB wit exertion at times. Positive for post nasal drip at times. Smoking about 1 ppd. Denies visual changes, headaches, slurred speech, facial drooping, dyspnea, wheezing, chest pain, palpitations, extremity numbness, tingling or weakness. 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 Interpretive Statements 2 puffs Albuterol (180 mcg) delivered by MDI via holding chamber. HR pre= 85/min, HR post= 85/min. ATS/ERS acceptability and repeatability standards for spirometry met. The inspired (FIVC) spirometry maneuver is less than the FVC maneuver. IMPRESSION: Spirometry shows no obstruction.The reduced FVC suggests restriction. Recommend lung volumes if clinically indicated. The increase in FEF 25-75 post-bronchodilator reflects an improvement in the small airway obstruction. Electronically Signed On 05-05-2022 15:54:08 EST by Alondra Swartz M.D. ID: [id number] Name: JOSHUA ESTES Race: White Ht: 72.50 in Wt: 242.00 lbs Age: 66 Gender: Male : 1955 Dx: Chronic cough_ Smoking Hx: Smoker Doctor: AUDREY PACKER Test Date: 05/05/2022 Site: Tech: Dee Sparks PRE-BRONCH POST-BRONCH Pre LLN Pred ULN %Pred Post %Pred %Chg SPIROMETRY FVC (L) 3.16 3.52 4.72 5.93 66 3.26 69 2 FEV1 (L) 2.09 2.60 3.56 4.47 58 2.28 64 5 FEV1/FVC 0.66 0.63 0.76 0.87 87 0.70 92 5 PEF L/s (L/sec) 5.63 6.66 9.14 11.63 61 5.64 61 0 FEF50 (L/sec) 1.76 2.45 4.57 6.70 38 2.22 48 26 FIF50 (L/sec) 3.73 1.66 -55 FEF50/FIF50 0.47 90-100 1.34 183 FIVC (L) 2.86 2.95 3 LPL44-52 (L/sec) 1.15 1.21 2.71 4.80 42 1.56 57 36 Time (sec) 7.06 10.71 51 FET PEF (sec) 0.08 0.07 -9 TONJA (L) 0.08 0.07 -8 Vol Extrap % (%) 3 2 -10 Comments: 2 puffs Albuterol (180 mcg) delivered by MDI via holding chamber. HR pre= 85/min, HR post= 85/min. ATS/ERS acceptability and repeatability standards for spirometry met. The inspired (FIVC) spirometry maneuver is less than the FVC maneuver. [facility] [address] [facility], [place] [address] Test Date: 2022-05-10 Pat Name: JOSHUA ESTES Department: Room: Gender: Male [employer] Fi[employer] Builder: : 1955 Requested By: Order Number: [id number] Reading MD: Alondra Swartz M.D. Interpretive Statements All lung volume repeatability criteria met. IMPRESSION: The RV and RV/TLC are elevated indicating air trapping. The Lung volumes (FRC,ERV,RV) are in a pattern reflecting body habitus. Electronically Signed On 05-11-2022 16:00:44 EST by Alondra Swartz M.D. ID: [id number] Name: JOSHUA ESTES Race: White Ht: 72.50 in Wt: 242.00 lbs Age: 66 Gender: Male : 1955 Dx: Abnormal results of pulmonary function studies Smoking Hx: Smoker Doctor: AUDREY PACKER Test Date: 05/10/2022 Site: Tech: Dee Sparks PRE-BRONCH POST-BRONCH Pre LLN Pred ULN %Pred Post %Pred %Chg LUNG VOLUMES TGV (L) 3.95 2.83 4.01 5.19 98 ERV (L) 0.23 1.57 14 RV (Pleth) (L) 3.74 1.93 2.54 3.16 147 SVC (L) 2.86 3.52 4.72 5.93 60 IC (L) 2.64 3.14 83 TLC (Pleth) (L) 6.36 6.22 7.52 8.83 84 RV/TLC (Pleth) (%) 59 28 35 42 168 Comments: All lung volume repeatability criteria met. PAST MEDICAL HISTORY Diagnosis Date Aneurysm (HCC) right common femoral artery. Dr. Ordoñez Colon polyps 08/2018 benign, repeat in 10 years Diabetes mellitus, type II (HCC) Diabetic ulcer of toe of right foot (HCC) DVT (deep venous thrombosis) (HCC) Hyperlipidemia Hypertension Obesity PAC (premature atrial contraction) Peripheral arterial disease (HCC) Restless leg syndrome Snoring Tobacco use ALLERGIES Patient has no known allergies. MEDICATIONS Current Outpatient Medications Medication Sig albuterol HFA (VENTOLIN HFA) 90 mcg/actuation inhaler Inhale 2 Puffs as instructed every 4 hours as needed for wheezing/shortness of breath. losartan (COZAAR) 50 mg tablet Take 1 tablet by mouth once daily. cyclobenzaprine (FLEXERIL) 5 mg tablet Take 1-2 tablets at bedtime as needed for muscle spasms ALPRAZolam (XANAX) 0.25 mg tablet Take 1-2 tablets PO about [address] scan. nystatin (MYCOSTATIN) 100,000 unit/mL suspension Take 5 mL by mouth four times daily. 1tsp swish in mouth for several minutes, then swallow (or expectorate) 4 times daily until gone. fluticasone (FLONASE) 50 mcg/actuation nasal spray Use 2 Sprays in each nostril once daily. Rinse mouth after use. metFORMIN (GLUCOPHAGE) 1,000 mg tablet Take 1 tablet by mouth twice daily with meals. . atorvastatin (LIPITOR) 40 mg tablet Take 1 tablet by mouth once daily. For cholesterol. glimepiride (AMARYL) 4 mg tablet Take 2 tablets by mouth daily with breakfast. gabapentin (NEURONTIN) 300 mg capsule Take one capsule three times a day for 30 days hydroCHLOROthiazide (HYDRODIURIL, ESIDRIX) 50 mg tablet Take 1 tablet by mouth once daily. rOPINIRole (REQUIP) 2 mg tablet Take 1 tablet by mouth daily at bedtime. empagliflozin (JARDIANCE) 10 mg tablet Take 1 tablet by mouth once daily. Take 1 tablet once daily in the morning famotidine (PEPCID) 20 mg tablet Take 1 tablet by mouth twice daily. blood sugar diagnostic (TRUE METRIX GLUCOSE TEST STRIP) test strip Test once daily DX: E11.42, E11.29 Blood Pressure Monitor (BLOOD PRESSURE KIT) 1 Each once daily. pentoxifylline ER (TRENTAL) 400 mg CR tablet Take 1 tablet by mouth three times daily with meals. Blood-Glucose Meter (TRUE METRIX AIR GLUCOSE METER) misc 1 Device twice daily. Lancets lancets Test once daily DX: E11.42. E11.29 insulin needles, DISPOSABLE, (BD INSULIN PEN NEEDLE UF) 31 gauge x 5/16 ndle 1 Each once daily. aspirin 81 mg chewable tablet Take 1 tablet by mouth once daily. No current facility-administered medications for this visit. Medications and allergies reviewed by this provider. SOCIAL HISTORY Social History Tobacco Use Smoking status: Every Day Packs/day: 0.25 Years: 46.00 Pack years: 11.50 Types: Cigarettes Last attempt to quit: 12/03/2015 Years since quittin.4 Smokeless tobacco: Never Tobacco comments: Started to smoke again, 1 pack a week Vaping Use Vaping Use: Never used Substance Use Topics Alcohol use: No Drug use: No REVIEW OF SYSTEMS All other reviewed and negative other than HPI. OBJECTIVE: BP 142/85 Pulse 64 Resp 18 Wt 110.6 kg (243 lb 12.8 oz) SpO2 97% BMI 32.61 kg/m . Vital signs reviewed by this provider. APPEARANCE Well appearing, alert, in no acute distress, well-hydrated, well nourished. EYES conjunctiva and sclera normal. HEART Irregular rhythm without murmur, gallop, or rubs. LUNG clear to auscultation. No wheezes, rhonchi or rales SKIN Skin color, texture, turgor normal, no suspicious rashes or lesions COVID-19 VACCINE(1) Never done SHINGRIX VACCINE(1 of 2) Never done PNEUMOCOCCAL: 65+(2 - PCV) due on 11/23/2019 URINE ALBUMIN:CREATININE RATIO due on 02/22/2022 ADVANCE DIRECTIVE DISCUSSION Never done DEPRESSION ASSESSMENT Never done INFLUENZA(1) due on 09/29/2022 DIABETIC FOOT EXAM due on 07/04/2022 BP CONTROLLED (<130/80) due on 07/04/2022 HBA1C due on 07/04/2022 LDL CHOLESTEROL due on 07/05/2022 DILATED RETINAL EXAM due on 08/10/2022 ANNUAL PCP TEAM CHRONIC DISEASE VISIT due on 05/24/2023 PROSTATE CANCER SCREENING DISCUSSION due on 11/23/2023 COLORECTAL CANCER SCREENING due on 09/12/2028 DTAP,TDAP,TD(2 - Td or Tdap) due on 11/22/2028 ABDOMINAL AORTIC ANEURYSM SCREENING Completed HEPATITIS C SCREENING Completed ASSESSMENT/PLAN: 1. Cough, unspecified type - ICD9: 786.2, ICD10: R05.9 (primary diagnosis) - mild improvement - no red flag symptoms or exam findings - FLUTICASONE 100 MCG-SALMETEROL 50 MCG/DOSE BLISTR POWDR FOR INHALATION- discussed importance of rinsing mouth after, verbalizes understanding - continue albuterol inhaler as prescribed - follow-up if symptoms fail to improve 2. Essential hypertension, benign - ICD9: 401.1, ICD10: I10 - suboptimal control - Increase losartan(Cozaar) - Encouraged dietary sodium restriction/DASH diet - Recommended regular aerobic exercise. - Recommend home blood pressure monitoring, to bring results in on next visit - Discussed need and benefit for weight loss. - Goal of BP <140/90 - Patient counselled on smoking cessation. - Recommend home or pharmacy blood pressure monitoring - Recommended no refined sugar, low refined starch, healthy oil intake (olive oil), healthy protein (fish) along the lines of the Mediterranean diet. - LOSARTAN 100 MG TABLET - take BP at home daily and up date me in 2 weeks with BP readings 3. Irregular heart beat - ICD9: 427.9, ICD10: I49.9 - no red flag symptoms or exam findings - red flag symptoms discussed, verbalizes understanding - PACs noted on EKG- benign- no change from previous EKG- will monitor - ECG COMPLETE Audrey Packer APRN.CNP Prescription instructions reviewed with patient as applicable. Patient advised if symptoms do not improve or if symptoms worsen sooner, to contact their primary care physician. Potential red flag symptoms discussed with the patient. Reviewed appropriate action plan to take if red flag symptoms occur. Patient agreeable to treatment plan. I spent a total of 30 minutes on the date of the service which included preparing to see the patient, [id number] patient care, completing clinical documentation, obtaining and/or reviewing separately obtained history, performing a medically appropriate examination, counseling and educating the patient/family/caregiver, and ordering medications, tests, or procedures. documented in this encounter [facility] 05-15-2022 Miscellaneous Notes Patient notified of below message. Voices understanding. Marleny Raygoza LPN Please let patient know his lung studies show some air trapping which is were you retain air in lungs after exhalation. Follow-up in office as scheduled and we can discuss further. Audrey Packer APRN.CNP Good to know. Thanks, Audrey Packer APRN.CNP Patient telephoned and made aware of results and recommendations below. Voices understanding and will call in and schedule the lung volumes testing. Patient states the coughing is still the same but does get relief when he utilizes the albuterol. Marleny Raygoza LPN Please call patient and let him know his pulmonary function test shows restriction which is a decrease in the total volume of air the lungs are able to hold. Recommend further testing for lung volumes. Also noted some improvement in small airway with the albuterol. Has he noted any improvement in cough. Audrey Packer APRN.EDENILSON documented in this encounter [facility] 05-10-2022 History of Present illness Narrative PULM FUNCTION SMARTBLOCK: Provider: Audrey Packer APRN.CNP Assisting Tech: GHASSAN Lopez LV - Box: 1 documented in this encounter [facility] 05-05-2022 History of Present illness Narrative PULM FUNCTION SMARTBLOCK: Provider: Audrey Packer APRN.CNP Assisting Tech: GHASSAN Lopez Spirometry w/BD: 1 documented in this encounter [facility] 05-01-2022 Instructions Audrey Packer APRN.CNP - 05/01/2022 11:19 AM EST Increase fiber in diet documented in this encounter [facility] 05-01-2022 History of Present illness Narrative 05/01/2022 Patient presents with: Diarrhea: X3 months 3-4 times a day; incontinence at night time Cough: X3 months; recently had chest xray at [facility] SUBJECTIVE: This is a 66 year old that is here today for Above Complaints. Diarrhea: for the last three months has had diarrhea. Consistency is watery to slimy. Happening 4 times or more a day. Has incontinence at night at times. Patient reports he has not warning it is coming and he can not make it to the bathroom at times. Finished entire course of flagyl for recent diagnosis a c-diff without relief. Denies abdominal pain, nausea, vomiting, melana or hematochezia. Cough: has had a cough for about three months. Recent chest xray is normal. Cough is productive mostly in the morning. When he coughs it makes the left side of his head and neck hurt. Pain in neck and head resolved when he does not cough. Smokes 1 ppd Admits to some post nasal dripping. Denies fevers, chills, sore throat, SOB, dyspnea, or wheezing. PAST MEDICAL HISTORY Diagnosis Date Aneurysm (HCC) right common femoral artery. Dr. Ordoñez Colon polyps 08/2018 benign, repeat in 10 years Diabetes mellitus, type II (HCC) Diabetic ulcer of toe of right foot (HCC) DVT (deep venous thrombosis) (HCC) Hyperlipidemia Hypertension Obesity PAC (premature atrial contraction) Peripheral arterial disease (HCC) Restless leg syndrome Snoring Tobacco use ALLERGIES Patient has no known allergies. MEDICATIONS Current Outpatient Medications Medication Sig cyclobenzaprine (FLEXERIL) 5 mg tablet Take 1-2 tablets at bedtime as needed for muscle spasms ALPRAZolam (XANAX) 0.25 mg tablet Take 1-2 tablets PO about [address] scan. nystatin (MYCOSTATIN) 100,000 unit/mL suspension Take 5 mL by mouth four times daily. 1tsp swish in mouth for several minutes, then swallow (or expectorate) 4 times daily until gone. fluticasone (FLONASE) 50 mcg/actuation nasal spray Use 2 Sprays in each nostril once daily. Rinse mouth after use. metFORMIN (GLUCOPHAGE) 1,000 mg tablet Take 1 tablet by mouth twice daily with meals. . atorvastatin (LIPITOR) 40 mg tablet Take 1 tablet by mouth once daily. For cholesterol. lisinopril (ZESTRIL, PRINIVIL) 40 mg tablet Take 1 tablet by mouth once daily. glimepiride (AMARYL) 4 mg tablet Take 2 tablets by mouth daily with breakfast. gabapentin (NEURONTIN) 300 mg capsule Take one capsule three times a day for 30 days hydroCHLOROthiazide (HYDRODIURIL, ESIDRIX) 50 mg tablet Take 1 tablet by mouth once daily. rOPINIRole (REQUIP) 2 mg tablet Take 1 tablet by mouth daily at bedtime. empagliflozin (JARDIANCE) 10 mg tablet Take 1 tablet by mouth once daily. Take 1 tablet once daily in the morning famotidine (PEPCID) 20 mg tablet Take 1 tablet by mouth twice daily. blood sugar diagnostic (TRUE METRIX GLUCOSE TEST STRIP) test strip Test once daily DX: E11.42, E11.29 Blood Pressure Monitor (BLOOD PRESSURE KIT) 1 Each once daily. pentoxifylline ER (TRENTAL) 400 mg CR tablet Take 1 tablet by mouth three times daily with meals. Blood-Glucose Meter (TRUE METRIX AIR GLUCOSE METER) misc 1 Device twice daily. Lancets lancets Test once daily DX: E11.42. E11.29 insulin needles, DISPOSABLE, (BD INSULIN PEN NEEDLE UF) 31 gauge x 5/16 ndle 1 Each once daily. aspirin 81 mg chewable tablet Take 1 tablet by mouth once daily. No current facility-administered medications for this visit. Medications and allergies reviewed by this provider. SOCIAL HISTORY Social History Tobacco Use Smoking status: Every Day Packs/day: 0.25 Years: 46.00 Pack years: 11.50 Types: Cigarettes Last attempt to quit: 12/03/2015 Years since quittin.4 Smokeless tobacco: Never Tobacco comments: Started to smoke again, 1 pack a week Vaping Use Vaping Use: Never used Substance Use Topics Alcohol use: No Drug use: No REVIEW OF SYSTEMS All other reviewed and negative other than HPI. OBJECTIVE: BP 104/62 Pulse 82 Temp 36.2 C (97.2 F) Resp 18 Wt 109 kg (240 lb 6.4 oz) SpO2 95% BMI 31.72 kg/m . Vital signs reviewed by this provider. APPEARANCE Well appearing, alert, in no acute distress, well-hydrated, well nourished. EYES PERRLA, conjunctiva and sclera normal. HEART RRR with normal S1 and S2, no murmurs, no gallops, no JVD appreciated LUNG clear to auscultation ABDOMEN bowel sounds normoactive, no bruits, soft, non-tender, non-distended, without organomegaly or palpable masses EXTREMITIES Extremities normal, No deformities, No skin discoloration, No edema, SKIN Skin color, texture, turgor normal, no suspicious rashes or lesions to exposed skin COVID-19 VACCINE(1) Never done SHINGRIX VACCINE(1 of 2) Never done PNEUMOCOCCAL: 65+(2 - PCV) due on 11/23/2019 URINE ALBUMIN:CREATININE RATIO due on 02/22/2022 ADVANCE DIRECTIVE DISCUSSION Never done DEPRESSION ASSESSMENT Never done INFLUENZA(1) due on 09/29/2022 DIABETIC FOOT EXAM due on 07/04/2022 HBA1C due on 07/04/2022 LDL CHOLESTEROL due on 07/05/2022 DILATED RETINAL EXAM due on 08/10/2022 ANNUAL PCP TEAM CHRONIC DISEASE VISIT due on 05/01/2023 BP CONTROLLED (<130/80) due on 05/01/2023 PROSTATE CANCER SCREENING DISCUSSION due on 11/23/2023 COLORECTAL CANCER SCREENING due on 09/12/2028 DTAP,TDAP,TD(2 - Td or Tdap) due on 11/22/2028 ABDOMINAL AORTIC ANEURYSM SCREENING Completed HEPATITIS C SCREENING Completed ASSESSMENT/PLAN: 1. Chronic cough - ICD9: 786.2, ICD10: R05.3 (primary diagnosis) - possible related to lisinopril vs PND vs hx of smoking vs reflux - SPIROMETRY - BASELINE AND POST DILATOR - ALBUTEROL SULFATE HFA 90 MCG/ACTUATION AEROSOL INHALER - LOSARTAN 50 MG TABLET - can add on OTC Claritin or zyrtec - follow-up if fails to improve 2. C. difficile diarrhea - ICD9: 008.45, ICD10: A04.72 - increase fiber in diet - bland diet - VANCOMYCIN 125 MG CAPSULE - follow-up if fails to resolve 3. Essential hypertension, benign - ICD9: 401.1, ICD10: I10 - good control - Begin losartan(Cozaar) - Discontinue lisinopril (Zestril/Prinivil) - Encouraged dietary sodium restriction/DASH diet - Recommended regular aerobic exercise. - Recommend home blood pressure monitoring, to bring results in on next visit - Discussed need and benefit for weight loss. - Follow up in 1 month for BP recheck. - Goal of BP <130/80 - Recommend home or pharmacy blood pressure monitoring - Recommended no refined sugar, low refined starch, healthy oil intake (olive oil), healthy protein (fish) along the lines of the Mediterranean diet. Audrey Packer APRN.EDENILSON Prescription instructions reviewed with patient as applicable. Patient advised if symptoms do not improve or if symptoms worsen sooner, to contact their primary care physician. Potential red flag symptoms discussed with the patient. Reviewed appropriate action plan to take if red flag symptoms occur. Patient agreeable to treatment plan. I spent a total of 30 minutes on the date of the service which included preparing to see the patient, [id number] patient care, completing clinical documentation, obtaining and/or reviewing separately obtained history, performing a medically appropriate examination, counseling and educating the patient/family/caregiver, and ordering medications, tests, or procedures. documented in this encounter [facility] 04-28-2022 Miscellaneous Notes SRUTHI: 02/22/22 with PCP NOV: 04/30/22-with ZOEY Last fill: 02/22/22- & 1 refill Cheryl Weinstein MA Patient has been identified by name and date of : Yes Requested Prescriptions Pending Prescriptions Disp Refills cyclobenzaprine (FLEXERIL) 5 mg tablet 30 tablet 1 Sig: Take 1-2 tablets at bedtime as needed for muscle spasms RX INSTRUCTIONS: Patient aware RX will be sent to pharmacy. No need to notify patient. Patricia Lacy Pss documented in this encounter [facility] 04-20-2022 History of Present illness Narrative Radiology Service Progress Note DATE OF SERVICE: April 20, 2022 TIME: 4:03 PM PATIENT IDENTITY VERIFICATION COMPLETED USING TWO (2) STANDARD IDENTIFIERS: Name and Date of confirmed by patient verbally. FALL SCREENING: Has the patient had 2 falls in the last year or 1 fall with injury or currently using an Ambulatory Assistive Device (Walker, Cane, Wheelchair, Crutches, etc.)? No PATIENT GENDER DATA: Male PATIENT RELEVANT IMPLANT DATA REVIEWED: Yes ALLERGIES: Reviewed and unchanged CONTRAST ALLERGY: NO. EXAM: CT -CONTRAST INDUCED NEPHROPATHY RISK FACTORS: Patient age > 60 years CREATININE: Creatinine Date Value Ref Range Status 04/10/2022 1.27 (H) 0.73 - 1.22 mg/dL Final 01/03/2022 1.19 0.73 - 1.22 mg/dL Final 07/05/2021 1.31 (H) 0.73 - 1.22 mg/dL Final Estimated Glomerular Filtration Rate Date Value Ref Range Status 04/10/2022 62 >=60 mL/min/1.73m Final Comment: Estimated Glomerular Filtration Rate (eGFR) is calculated using the 2020 CKD-EPI creatinine equation. This equation utilizes serum creatinine, sex, and age as parameters. The creatinine assay has traceable calibration to isotope dilution-mass spectrometry. Refer to KDIGO guidelines for clinical interpretation. In patients with unstable renal function, e.g. those with acute kidney injury, the eGFR may not accurately reflect actual GFR. eGFR- Date Value Ref Range Status 02/22/2021 >60 Final P.O.C.T. RESULTS: POC done: Yes, See Lab Tab April 20, 2022 TREATMENT: N/A PERIPHERAL IV DATA: Ambulatory: A peripheral IV was started in the Left antecubital site with a Angio cath: 20 gauge. RADIOLOGY DEPARTMENT: CT; Exam(s) Completed: Brain and CTA Brain SIGNATURE: RT Darci(R) PATIENT NAME: Joshua Estes DATE: April 20, 2022 TIME: 4:03 PM documented in this encounter [facility] 04-17-2022 Miscellaneous Notes Spoke with patient. Given message from provider's office. Patient verbalizes understanding. Genny Estrada RN Message left for patient to return call to receive providers message. PDMP website checked and validated. All prescriptions have been APPROPRIATELY filled. No suspicious activity was identified. 04/17/2022 by Tobi Sorto MD Rx for 2 tablets of xanax to be taken prior to CT scan sent to his pharmacy. Should not drive after taking. Someone else will need to drive him home. Patient calls and states that he has CT scan of the head scheduled for . Patient states that the last CT scan he had did not go so well because patient has anxiety with doing CT Scans. Patient asking if provider can send in a prescription for something to help him with the anxiety that he can take prior to CT scan? Patient's pharmacy is [facility]. Please review and advise, Amanda Alcazar RN documented in this encounter [facility] 04-12-2022 Miscellaneous Notes Patient given results and verbalized understanding of instructions given. Liliane Rodriguez Please let patient know his fungal screen did come back positive for Jerri (yeast that causes thrush), continue the nystatin mouthwash. documented in this encounter [facility] 04-11-2022 Miscellaneous Notes C. Diff POSITIVE. Reached out and informed patient. J Luis called in. 2 remaining stool studies are pending. Discussed the contagiousness and treatment plan. He is to follow up with PCP. documented in this encounter [facility] 04-10-2022 History of Present illness Narrative Radiology Service Progress Note PATIENT NAME: Joshua Estes DATE OF SERVICE: April 10, 2022 TIME: 11:55 AM PATIENT IDENTITY VERIFICATION COMPLETED USING TWO (2) IDENTIFIERS: Name and Date of confirmed by patient verbally. FALL SCREENING: Has the patient had 2 falls in the last year or 1 fall with injury or currently using an Ambulatory Assistive Device (Walker, Cane, Wheelchair, Crutches, etc.)? No PATIENT GENDER DATA: Male PATIENT RELEVANT IMPLANT DATA REVIEWED: Not Applicable RADIOLOGY DEPARTMENT: General X-ray: Exam(s) Completed: Chest X-Ray PERIPHERAL IV DATA: Not applicable SIGNED BY: RT Gabby(R) April 10, 2022 11:55 AM documented in this encounter [facility] 04-10-2022 History of Present illness Narrative HPI Joshua Estes is a 66 year old male who presents with left-sided headache. Patient for the last month or so has had a bad cough. Patient has no true nasal symptoms presently patient is a smoker patient does complain of a sore throat for the last day or so patient complains of horrible severe headaches on the left side when he coughs.. ROS General Weight loss: No Fatigue: No Night sweats:No Cardiac Chest pain:No Fast heart rate:No Swelling in the feet:No Respiratory Short of breath:No Cough:No Wheezing:No Gastrointestinal Nausea:No Vomiting:No Indigestion:No Past medical history, family history, and social history reviewed. PE There were no vitals taken for this visit. General: Patient is awake, alert, NAD. Voice is normal. Skin: normal Eyes: Extraocular motion and Gaze is normal. Ears: Right external auditory canal is normal. TMJ: normal. Right tympanic membranes normal. Left external auditory canal is normal. Left tympanic membrane normal. Nose: Septum is normal. Turbinates are normal. Nasopharynx:normal Oral Cavity/Oropharynx: Lips normal Dentition normal Tongue normal. Tonsils normal. Palate and uvula normal. Uvula quite dry Pharynx posterior normal Hypopharynx: Base of tongue normal Pyriform sinus normal. Larynx: Vocal cords normal. Epiglottis normal. Post cricoid normal. Salivary glands: Parotid normal. Submandibular and sublingual normal. Thyroid: normal. Lymphatic/Neck: Lymph nodes normal. Neurologic: Facial nerve normal. ASSESSMENT/PLAN: 1. Thunderclap headache - ICD9: 784.0, ICD10: G44.53 (primary diagnosis) - CTA HEAD WO/W IVCON - CREATININE BLD 2. Chronic sinusitis, unspecified location - ICD9: 473.9, ICD10: J32.9 - XR CHEST 2V FRONTAL/LAT 3. Chronic cough - ICD9: 786.2, ICD10: R05.3 4. Sore throat - ICD9: 462, ICD10: J02.[address] of the head due to the fact that he is having horrible headaches with coughing. I explained the patient I am more worried of a vascular issue being exacerbated by his increasing pressure in the head with his coughing I also recommended a chest x-ray I will call him with results Rao Frey MD Findings will be communicated to the referring physician via mail or electronic medical record. documented in this encounter [facility] 04-09-2022 Instructions Glendy Matos APRN.[facility] - 04/09/2022 12:52 PM EST DEFINITION: White, irregularly shaped patches that coat the inside of the mouth and sometimes the tongue, adhere to the mouth, and cannot be washed away or wiped off easily like milk. (If the only symptom is a uniformly white tongue, it's due to a milk diet, not thrush.) Thrush causes mild discomfort. Bottle-fed or breast-fed child CAUSE: Thrush is caused by a yeast (Jerri) that grows rapidly on the lining of the mouth in areas abraded by prolonged sucking (as when a baby sleeps with a bottle or pacifier). A large pacifier or nipple can also injure the lining of the mouth. Thrush may also occur when your child has recently been taking a broad-spectrum antibiotic. Thrush is not contagious since it does not invade normal tissue. HOME CARE: Nystatin Oral Medicine. The drug for clearing this up is nystatin oral suspension. It requires a prescription. Give 1 ml of nystatin four times daily. Place it in the front of the mouth on each side (it doesn't do any good once it's swallowed). If the thrush isn't responding, rub the nystatin directly on the affected areas with a cotton swab or with gauze wrapped around your finger. Apply it after meals, or at least don't feed your baby anything for 30 minutes after application. Do this for at least 7 days or until all the thrush has been gone for 3 days. If you are , apply nystatin to any irritated areas on your nipples. Decrease sucking time to 20 minutes per feeding. Prolonged sucking (as when a baby sleeps with a bottle or pacifier) can abrade the lining of the mouth and make it more prone to yeast infection. If sucking on a nipple is painful for your child, temporarily use a cup. If the thrush recurs and your child is bottle-fed, switch to a nipple with a different shape and made from silicone. Restrict pacifier use to bedtime. Eliminate the pacifier temporarily except when it's really needed for going to sleep. If your is using an orthodontic-type pacifier, switch to a smaller, regular one. Soak all nipples in water at 130*F (55*C), the temperature of most hot tap water, for 15 minutes. Diaper rash associated with thrush. If your child has an associated diaper rash, assume it is due to yeast. Request nystatin cream and apply it four times daily. CALL OUR OFFICE, During regular hours if: Your child refuses to drink. The thrush gets worse on treatment. The thrush lasts beyond 10 days. You have other concerns or questions. Instructions for Pediatric Patients, 2nd edition, 1998 by [employer] Written by Olvin Pham MD, peat shredder tender and author of Your Child's Health, [employer], a book for parents. documented in this encounter [facility] 04-09-2022 History of Present illness Narrative This note was created using Eayunriter. Subjective Joshua Estes is a 66 year old male. 66 year old male with PMH DM, RLS, GERD, HTN, hyperlipidemia and obesity presents for sore throat. Acute onset of symptoms was yesterday +sore throat Denies fever or chills He makes notion head pressure , ear pain +cough and endorses that he has been seen by Has an appt with ENT tomorrow for the head pressure and pain Citing he has seen Dr. Sorto for the same And was prescribed Amoxicillin (approximately one month ago) A head CT was ordered, but insurance denied it. Has an appt with ENT tomorrow for head pressure and pain He further endorses that he has been having diarrhea for 3 weeks He was scheduled with Audrey Podlogar 04/05/22, but cancelled appointment. Denies that he reschedule Endorses keeps going on Patient does utilize inhalers The history is provided by the patient. No chinese language professor was used. Sore Throat This is a new problem. The current episode started yesterday. The problem has been unchanged. Neither side of throat is experiencing more pain than the other. There has been no fever. The pain is at a severity of 7/10. The pain is moderate. Associated symptoms include congestion, coughing, diarrhea, ear pain and headaches. Pertinent negatives include no abdominal pain, drooling, ear discharge, hoarse voice, plugged ear sensation, neck pain, shortness of breath, stridor, swollen glands, trouble swallowing or vomiting. He has had no exposure to strep or mono. Treatments tried: NyQuil. The treatment provided no relief. PAST MEDICAL HISTORY Diagnosis Date Aneurysm (HCC) right common femoral artery. Dr. Ordoñez Colon polyps 08/2018 benign, repeat in 10 years Diabetes mellitus, type II (HCC) Diabetic ulcer of toe of right foot (HCC) DVT (deep venous thrombosis) (HCC) Hyperlipidemia Hypertension Obesity PAC (premature atrial contraction) Peripheral arterial disease (HCC) Restless leg syndrome Snoring Tobacco use PAST SURGICAL HISTORY Procedure Laterality Date COLONOSCOPY FLX DX W/COLLJ SPEC WHEN PFRMD 09/12/2018 Colonoscopy I&D ABSC; SMPL OR SGL Right 12/22/2015 Incision and drainage of right groin collection, debridement of full- thickness skin and soft tissue. 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 ALLERGIES Patient has no known allergies. MEDICATIONS fluticasone (FLONASE) 50 mcg/actuation nasal spray Use 2 Sprays in each nostril once daily. Rinse mouth after use. metFORMIN (GLUCOPHAGE) 1,000 mg tablet Take 1 tablet by mouth twice daily with meals. . atorvastatin (LIPITOR) 40 mg tablet Take 1 tablet by mouth once daily. For cholesterol. lisinopril (ZESTRIL, PRINIVIL) 40 mg tablet Take 1 tablet by mouth once daily. glimepiride (AMARYL) 4 mg tablet Take 2 tablets by mouth daily with breakfast. cyclobenzaprine (FLEXERIL) 5 mg tablet Take 1-2 tablets at bedtime as needed for muscle spasms gabapentin (NEURONTIN) 300 mg capsule Take one capsule three times a day for 30 days hydroCHLOROthiazide (HYDRODIURIL, ESIDRIX) 50 mg tablet Take 1 tablet by mouth once daily. rOPINIRole (REQUIP) 2 mg tablet Take 1 tablet by mouth daily at bedtime. famotidine (PEPCID) 20 mg tablet Take 1 tablet by mouth twice daily. blood sugar diagnostic (TRUE METRIX GLUCOSE TEST STRIP) test strip Test once daily DX: E11.42, E11.29 Blood Pressure Monitor (BLOOD PRESSURE KIT) 1 Each once daily. pentoxifylline ER (TRENTAL) 400 mg CR tablet Take 1 tablet by mouth three times daily with meals. Blood-Glucose Meter (TRUE METRIX AIR GLUCOSE METER) misc 1 Device twice daily. Lancets lancets Test once daily DX: E11.42. E11.29 insulin needles, DISPOSABLE, (BD INSULIN PEN NEEDLE UF) 31 gauge x 5/16 ndle 1 Each once daily. aspirin 81 mg chewable tablet Take 1 tablet by mouth once daily. nystatin (MYCOSTATIN) 100,000 unit/mL suspension Take 5 mL by mouth four times daily. 1tsp swish in mouth for several minutes, then swallow (or expectorate) 4 times daily until gone. empagliflozin (JARDIANCE) 10 mg tablet Take 1 tablet by mouth once daily. Take 1 tablet once daily in the morning FAMILY HISTORY Problem Relation Age of Onset other (liver cancer) Mother age 34 Cancer Father age 54 Diabetes Brother Alive age 68 Asthma Other Alive age 41 No Known Problems Maternal Grandmother No Known Problems Maternal Grandfather No Known Problems Paternal Grandmother No Known Problems Paternal Grandfather Social History Tobacco Use Smoking status: Every Day Packs/day: 0.25 Years: 46.00 Pack years: 11.50 Types: Cigarettes Last attempt to quit: 12/03/2015 Years since quittin.3 Smokeless tobacco: Never Tobacco comments: Started to smoke again, 1 pack a week Vaping Use Vaping Use: Never used Substance Use Topics Alcohol use: No Drug use: No Review of Systems Constitutional: Negative for activity change, appetite change, fatigue and fever. HENT: Positive for congestion, ear pain, sinus pressure, sinus pain and sore throat. Negative for drooling, ear discharge, hoarse voice and trouble swallowing. Eyes: Negative for photophobia, pain, discharge, redness, itching and visual disturbance. Respiratory: Positive for cough. Negative for apnea, choking, chest tightness, shortness of breath and stridor. Cardiovascular: Negative for chest pain, palpitations and leg swelling. Gastrointestinal: Positive for diarrhea. Negative for abdominal pain and vomiting. Musculoskeletal: Negative for back pain and neck pain. Skin: Negative for color change, pallor, rash and wound. Allergic/Immunologic: Negative for environmental allergies, food allergies and immunocompromised state. Neurological: Positive for headaches. Negative for dizziness, facial asymmetry, light-headedness and numbness. Hematological: Negative for adenopathy. Does not bruise/bleed easily. Psychiatric/Behavioral: Negative for agitation and behavioral problems. Objective BP 108/68 Pulse 85 Temp 36.2 C (97.1 F) Resp 20 Wt 112.9 kg (249 lb) SpO2 98% BMI 32.85 kg/m Physical Exam Vitals and nursing note reviewed. Constitutional: General: He is not in acute distress. Appearance: Normal appearance. He is obese. He is not ill-appearing, toxic-appearing or diaphoretic. HENT: Head: Normocephalic and atraumatic. Right Ear: External ear normal. Left Ear: External ear normal. Nose: Nose normal. No congestion or rhinorrhea. Mouth/Throat: Mouth: Mucous membranes are moist. Pharynx: Oropharyngeal exudate (white patches noted to uvula and tonsillar pillars. Handling secretions. No muffled voice) and posterior oropharyngeal erythema present. Eyes: General: Right eye: No discharge. Left eye: No discharge. Extraocular Movements: Extraocular movements intact. Conjunctiva/sclera: Conjunctivae normal. Pupils: Pupils are equal, round, and reactive to light. Cardiovascular: Rate and Rhythm: Normal rate and regular rhythm. Pulses: Normal pulses. Heart sounds: Normal heart sounds. No murmur heard. No friction rub. No gallop. Pulmonary: Effort: Pulmonary effort is normal. No respiratory distress. Breath sounds: Normal breath sounds. No stridor. No wheezing, rhonchi or rales. Chest: Chest wall: No tenderness. Abdominal: General: Abdomen is flat. There is no distension. Palpations: Abdomen is soft. There is no mass. Tenderness: There is no abdominal tenderness. There is no guarding or rebound. Hernia: No hernia is present. Musculoskeletal: General: No swelling, tenderness, deformity or signs of injury. Normal range of motion. Cervical back: Normal range of motion and neck supple. No rigidity or tenderness. Right lower leg: No edema. Left lower leg: No edema. Lymphadenopathy: Cervical: No cervical adenopathy. Skin: General: Skin is warm and dry. Capillary Refill: Capillary refill takes less than 2 seconds. Coloration: Skin is not jaundiced or pale. Findings: No bruising, lesion or rash. Neurological: General: No focal deficit present. Mental Status: He is alert and oriented to person, place, and time. Cranial Nerves: No cranial nerve deficit. Sensory: No sensory deficit. Motor: No weakness. Coordination: Coordination normal. Gait: Gait normal. Deep Tendon Reflexes: Reflexes normal. Psychiatric: Mood and Affect: Mood normal. Behavior: Behavior normal. Thought Content: Thought content normal. Assessment and Plan ASSESSMENT/PLAN: 1. Pharyngitis, unspecified etiology - ICD9: 462, ICD10: J02.9 (primary diagnosis) X 1 day Posterior oropharynx with marked erythema and white patches Likely thrush - Alere Strep Test negative Fungal culture pending - Nystatin solution - Discussed supportive care treatment with fluids, rest and analgesia. - The patient should follow up in 3-5 days if symptoms persist or worsen - Call back if drooling, increased temperature, symptoms of dehydration and/or still sick in one week - STREP A MOLECULAR (POC) - FUNGAL SCREEN 2. Diarrhea, unspecified type - ICD9: 787.91, ICD10: R19.7 Patient has been experiencing this for a month. He cancelled an appointment that he never rescheduled Continues He was on Amoxicillin a month ago Discussed possible infectious causes. - C. DIFFICILE PCR - OVA + PARA MICROSCOPIC - ENTERIC BACTERIAL PANEL BY PCR He will present to lab during regular working hours and obtain equipment He is to rescheduled with PCP 3. Sinus pressure - ICD9: 478.19, ICD10: J34.89 - Keep appt tomorrow with ENT Glendy Matos APRN.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 SPECIALIST documented in this encounter [facility] 04-04-2022 Miscellaneous Notes Reviewed. Keep appointment with Audrey rees as scheduled. Patient call in for diarrhea x 2 week. Hemorrhoids are also irritated, patient has noticed that they are bleeding and burning. Nurse Triage assessment completed with protocol recommending for disposition of See PCP in 24 hours. Care advice reviewed with patient, patient stated understanding. Patient scheduled appointment with Audrey tomorrchantale at 11 AM. Offered appointments for today, but patient had declined. Reason for Disposition [1] SEVERE diarrhea (e.g., 7 or more times / day more than normal) AND [2] present > 24 hours (1 day) Answer Assessment - Initial Assessment Questions 1. DIARRHEA SEVERITY: When he gets up in the morning, he goes and then 2 minutes later he goes again, then 4 minutes again. Patient states that in there morning he is going an extra 6 times. Patient has to go in the evening, same routine as in the morning. Very little stool comes out. 2. ONSET: Starting the 3rd week of having diarrhea. 3. BM CONSISTENCY: watery 4. VOMITING: Denies 5. ABDOMINAL PAIN: Denies abdominal pain 6. ABDOMINAL PAIN SEVERITY: Denies Pain 7. ORAL INTAKE: Patient has been drinking a lot of water 8. HYDRATION: Denies symptoms of dehydration 9. EXPOSURE: Denies 10. ANTIBIOTIC USE: Are you taking antibiotics now or have you taken antibiotics in the past 2 months? Denies 11. OTHER SYMPTOMS: Blood in Stool; Has history of hemorrhoids which are also bothering him. Hemorrhoids are burning a little and hard to sit. Protocols used: [id number] documented in this encounter [facility] 03-15-2022 Miscellaneous Notes Pt scheduled in [place] with Raoramirez Frey on Apr 10 TC to patient who is agreeable to providers message. CT has been cancelled and consult to ENT has been placed. Please assist the patient in scheduling with ENT. Thank you. VALENTIN Blank If insurance is not approving his CT would cancel his scan on 03/23 and will refer to ENT for further workup. They may be able to get this approved. Continue nasal saline rinses and OTC nasal steroids as previously recommended. Dr. Mayo called to do a peer to peer on scheduled CT Scan. Please call [phone]. Therese Lacy LPN documented in this encounter [facility] 03-09-2022 Miscellaneous Notes Pt notified and voiced understanding. Rosalva Awad Ma Nasal saline is available over the counter so would not be covered by medicare. I would have him pick this up at the pharmacy. Could use Neti Pot instead if he has one. When putting in Rx, received notification this is not covered. Do you want to send in anyway and pt can be notified by pharmacy? Janice Caballero Ma patient asking if the saline could be prescribed. please advise. Patient telephoned and made aware. Voices understanding. Will call in and schedule CT. Marleny Raygoza LPN With persistent symptoms will obtain CT sinuses. Recommend he use OTC nasal saline spray or nasal steroid while awaiting results. Pt called in and reports he has had sinus issues for about 4 weeks now. Provider had put him on Augmentin for 10 days, and he said it helped some, but he still has the pressure in his head. He states it's like he has a headache all the time. When he wakes up and starts moving in the morning it's mild 4/10 continuous ache but when he coughs it's 7-8/10 sharp intermittent pain. He said if he holds his head when he coughs the pain isn't as bad. He states the pain is behind his left eye and left gnosticist. Pt denies having a fever, phlegm, snot, or congestion. He reports he has been sleeping with a humidifier on and using a hot pack on his forehead at night. Please call and advise. documented in this encounter [facility] 03-09-2022 Miscellaneous Notes Patient has been identified by name and date of : Yes Last office visit in this department: 02/22/2022 Labs-01/03/22 NOV-none med filled 08/25/21 RX INSTRUCTIONS: Patient aware RX will be sent to pharmacy. No need to notify patient. Patient phones requesting refills as follows: Requested Prescriptions Pending Prescriptions Disp Refills metFORMIN (GLUCOPHAGE) 1,000 mg tablet 180 tablet 1 Sig: Take 1 tablet by mouth twice daily with meals. . Please review and advise. Liliane Thompson Pss documented in this encounter [facility] 03-03-2022 Miscellaneous Notes Patient has been identified by name and date of : Yes Pharmacy phones for refill(s): Requested Prescriptions Pending Prescriptions Disp Refills atorvastatin (LIPITOR) 40 mg tablet 90 tablet 1 Sig: Take 1 tablet by mouth once daily. For cholesterol. lisinopril (ZESTRIL, PRINIVIL) 40 mg tablet 90 tablet 1 Sig: Take 1 tablet by mouth once daily. glimepiride (AMARYL) 4 mg tablet 180 tablet 1 Sig: Take 2 tablets by mouth daily with breakfast. Date of last office visit with pcp: 02-22-22. Next appt: none Last 2 Encounter Wt Readings: Date: Wt: 02/22/2022 111.9 kg (246 lb 9.6 oz) 01/03/2022 111.5 kg (245 lb 12.8 oz) Previous labs/tests for medication: Diabetes: Hemoglobin A1C (%) Date Value 01/03/2022 6.6 07/05/2021 8.1 02/21/2021 6.8 06/11/2020 8.1 Cholesterol: HDL Cholesterol (mg/dL) Date Value 07/05/2021 37 05/22/2018 39 HDL Cholesterol, Nonfasting (mg/dL) Date Value 02/22/2021 36 LDL Cholesterol (mg/dL) Date Value 07/05/2021 59 05/22/2018 126 LDL Cholesterol, Nonfasting (mg/dL) Date Value 02/22/2021 58 ALT (U/L) Date Value 01/03/2022 33 02/22/2021 28 Non HDL Cholesterol, Nonfasting (mg/dL) Date Value 02/22/2021 107 Non HDL Cholesterol (mg/dL) Date Value 07/05/2021 107 Blood Pressure: BUN (mg/dL) Date Value 01/03/2022 28 02/22/2021 23 Sodium (mmol/L) Date Value 01/03/2022 139 02/22/2021 139 Last 1 Encounter BP Readings: Date: BP: 02/22/2022 120/76 Please advise. Thank you. Jessica Soto RN documented in this encounter [facility] 03-01-2022 Miscellaneous Notes Agree. Protocol recommends home care. Patient reports has had improvement on AB but still having sinus pressure above eyes. Patient will try using cool mist humidifier at bedside, and will try using saline flush such as simply saline or neti pot and will call back if no improvement. Reason for Disposition Neti Pot, questions about [1] Reasonable improvement on antibiotic AND [2] no fever or pain Answer Assessment - Initial Assessment Questions 1. ANTIBIOTIC: Augmentin twice daily for 10 day 2. ONSET: 02-22-22 3. PAIN: Mild to Moderate 4. FEVER: No 5. SYMPTOMS: Moderate sinus pressure above eyes. 6. : N/A Protocols used: Sinus Infection on Antibiotic Follow-up [id number] documented in this encounter [facility] 02-22-2022 History of Present illness Narrative Chief Complaint Patient presents with: Sinus Problem HPI Joshua Estes is a 66 year old male who presents here today for chronic sinus infections. Pt here today to discuss his ongoing cough and head congestion. Pt c/o of cold symptoms that started 2 weeks ago. Since that time he continues to have a mildly productive cough with clear sputum, that will make his head hurt. Notes sinus pressure, runny nose and right ear congestion. Denies any other symptoms. Denies any exposure to anyone with Covid or traveling. No one sick currently in the home. Has tried multiple OTC medication such as Mucinex, Nyquil and Emergen-C packets with no improvement. Has also tried Essential Oils. Denies fever/chills, SOB, wheezing, chest congestion, chest pain, nausea, vomiting, diarrhea. Requesting refills on other medications. Past medical history, appointments, medications, allergies reviewed. Previous Medical History PAST MEDICAL HISTORY Diagnosis Date Aneurysm (HCC) right common femoral artery. Dr. Ordoñez Colon polyps 08/2018 benign, repeat in 10 years Diabetes mellitus, type II (HCC) Diabetic ulcer of toe of right foot (HCC) DVT (deep venous thrombosis) (HCC) Hyperlipidemia Hypertension Obesity PAC (premature atrial contraction) Peripheral arterial disease (HCC) Restless leg syndrome Snoring Tobacco use Previous Surgical History PAST SURGICAL HISTORY Procedure Laterality Date COLONOSCOPY FLX DX W/COLLJ SPEC WHEN PFRMD 09/12/2018 Colonoscopy I&D ABSC; SMPL OR SGL Right 12/22/2015 Incision and drainage of right groin collection, debridement of full- thickness skin and soft tissue. 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 Family History FAMILY HISTORY Problem Relation Age of Onset other (liver cancer) Mother age 34 Cancer Father age 54 Diabetes Brother Alive age 68 Asthma Other Alive age 41 No Known Problems Maternal Grandmother No Known Problems Maternal Grandfather No Known Problems Paternal Grandmother No Known Problems Paternal Grandfather Patient Allergies ALLERGIES No Known Allergies Current Medications Current Outpatient Medications on File Prior to Visit Medication Sig cyclobenzaprine (FLEXERIL) 5 mg tablet Take 1-2 tablets at bedtime as needed for muscle spasms rOPINIRole (REQUIP) 2 mg tablet Take 1 tablet by mouth daily at bedtime. gabapentin (NEURONTIN) 300 mg capsule Take one capsule three times a day for 30 days glimepiride (AMARYL) 4 mg tablet Take 2 tablets by mouth daily with breakfast. lisinopril (ZESTRIL, PRINIVIL) 40 mg tablet Take 1 tablet by mouth once daily. atorvastatin (LIPITOR) 40 mg tablet Take 1 tablet by mouth once daily. For cholesterol. empagliflozin (JARDIANCE) 10 mg tablet Take 1 tablet by mouth once daily. Take 1 tablet once daily in the morning (Patient not taking: Reported on 02/16/2022) metFORMIN (GLUCOPHAGE) 1,000 mg tablet Take 1 tablet by mouth twice daily with meals. . hydroCHLOROthiazide (HYDRODIURIL, ESIDRIX) 50 mg tablet Take 1 tablet by mouth once daily. famotidine (PEPCID) 20 mg tablet Take 1 tablet by mouth twice daily. blood sugar diagnostic (TRUE METRIX GLUCOSE TEST STRIP) test strip Test once daily DX: E11.42, E11.29 Blood Pressure Monitor (BLOOD PRESSURE KIT) 1 Each once daily. pentoxifylline ER (TRENTAL) 400 mg CR tablet Take 1 tablet by mouth three times daily with meals. Blood-Glucose Meter (TRUE METRIX AIR GLUCOSE METER) misc 1 Device twice daily. Lancets lancets Test once daily DX: E11.42. E11.29 insulin needles, DISPOSABLE, (BD INSULIN PEN NEEDLE UF) 31 gauge x 5/16 ndle 1 Each once daily. aspirin 81 mg chewable tablet Take 1 tablet by mouth once daily. No current facility-administered medications on file prior to visit. Social History Social History Tobacco Use Smoking status: Every Day Packs/day: 0.25 Years: 46.00 Pack years: 11.50 Types: Cigarettes Last attempt to quit: 12/03/2015 Years since quittin.2 Smokeless tobacco: Never Tobacco comments: Started to smoke again, 1 pack a week Vaping Use Vaping Use: Never used Substance Use Topics Alcohol use: No Drug use: No Review of Symptoms REVIEW OF SYSTEMS See HPI EXAM: BP 120/76 (BP Site: Right Arm, BP Position: Sitting, BP Cuff Size: Regular Adult) Pulse 72 Temp 36.8 C (98.3 F) (Tympanic) Resp 16 Wt 111.9 kg (246 lb 9.6 oz) BMI 32.53 kg/m General Appearance: Ill appearing, non toxic Skin: Skin color, texture, turgor normal, no suspicious rashes or lesions. Head: Normocephalic, no masses, lesions, tenderness or abnormalities. Eyes: Anicteric sclera. Pupils are equally round and reactive to light. Extraocular movements are intact. . Ears: External ears normal, canals clear. TMs normal Nose/Sinuses: TTP over maxillary sinuses. Neck: Supple, no adenopathy; thyroid symmetric, normal size, no bruits. Lungs: Lungs clear to auscultation. No wheezing, rhonchi, rales.. Heart: RRR without murmur, gallop, or rubs. No ectopy. Health Maintenance List SHINGRIX VACCINE(1 of 2) Never done PNEUMOCOCCAL: 65+(2 - PCV) due on 11/23/2019 ADVANCE DIRECTIVE DISCUSSION Never done DEPRESSION ASSESSMENT Never done URINE ALBUMIN:CREATININE RATIO due on 02/22/2022 COVID-19 VACCINE(1) due on 02/21/2022 INFLUENZA(1) due on 09/29/2022 DIABETIC FOOT EXAM due on 07/04/2022 HBA1C due on 07/04/2022 LDL CHOLESTEROL due on 07/05/2022 DILATED RETINAL EXAM due on 08/10/2022 ANNUAL PCP TEAM CHRONIC DISEASE VISIT due on 01/03/2023 BP CONTROLLED (<130/80) due on 01/03/2023 PROSTATE CANCER SCREENING DISCUSSION due on 11/23/2023 COLORECTAL CANCER SCREENING due on 09/12/2028 DTAP,TDAP,TD(2 - Td or Tdap) due on 11/22/2028 ABDOMINAL AORTIC ANEURYSM SCREENING Completed HEPATITIS C SCREENING Completed ASSESSMENT/PLAN: 1. Bacterial sinusitis - ICD9: 473.9, 041.9, ICD10: J32.9, B96.89 (primary diagnosis) - Will begin treatment with Augmentin 875 mg PO BID for 10 days - The patient should also be given OTC decongestants prn, OTC cough and cold meds as needed, and nasal saline gtts and suction prn for the first 5-7 days of treatment. - Supportive care with plenty of fluids, rest, and analgesia prn. - Follow up in 2 weeks if symptoms persist or worsen. - AMOXICILLIN 875 MG-POTASSIUM CLAVULANATE 125 MG TABLET - FLUTICASONE PROPIONATE 50 MCG/ACTUATION NASAL SPRAY,SUSPENSION Christopher B Bursley, MD documented in this encounter [facility] 02-16-2022 Instructions Rao Hillman - 02/16/2022 11:20 AM EST Diabetes Foot Care Instructions When you have diabetes, proper foot care is very important. Poor foot care may lead to amputation of a foot or leg. As a person with diabetes, you are more vulnerable to foot problems, because diabetes can damage your nerves and reduce blood flow to your feet. Here are some diabetes foot care tips to follow: Wash and Dry Your Feet Daily Use mild soaps Use warm water Pat your skin dry; do not rub. Thoroughly dry your feet. After washing, use lotion on your feet to prevent cracking. Do not put lotion between your toes. Examine Your Feet Each Day Check the tops and bottoms of your feet. Have someone else look at your feet if you cannot see them. Check for dry, cracked skin. Look for blisters, cuts, scratches, or other sores. Check for redness, increased warmth, or tenderness when touching any area of your feet. Check for ingrown toenails, corns, and calluses. If you get a blister or sore from your shoes, do not pop it. Apply a bandage and wear a different pair of shoes. Take Care of Your Toenails Cut toenails after bathing, when they are soft. Cut toenails straight across and smooth with a nail file. Avoid cutting into the corners of toes. Do not cut cuticles. If you have neuropathy (or decreased sensation in your feet) a paste up worker should always cut your toenails. Be Careful When Exercising Walk and exercise in comfortable shoes. Do not exercise when you have open sores on your feet. Protect Your Feet With Shoes and Socks Never go barefoot. Always protect your feet by wearing shoes or hard-soled slippers or footwear. Avoid shoes with high heels and pointed toes. Avoid shoes that expose your toes or heels (such as open-toed shoes or sandals). These types of shoes increase your risk for injury and potential infections. Try on new footwear with the type of socks you usually wear. Do not wear new shoes for more than an hour at a time. Change your socks daily. Look and feel inside your shoes before putting them on to make sure there are no foreign objects or rough areas. Avoid tight socks. Wear natural-fiber socks (cotton, wool, or a cotton-wool blend). Wear special shoes if your health care provider recommends them. Wear shoes/boots that will protect your feet from various weather conditions (cold, moisture, etc.). Make sure your shoes fit properly. If you have neuropathy (nerve damage), you may not notice that your shoes are too tight. Perform the footwear test described below. Footwear Test Use this simple test to see if your shoes fit correctly: Stand on a piece of paper. (Make sure you are standing and not sitting, because your foot changes shape when you stand.) Trace the outline of your foot. Trace the outline of your shoe. Compare the tracings: Is the shoe too narrow? Is your foot crammed into the shoe? The shoe should be at least 1/2 inch longer than your longest toe and as wide as your foot. Proper Shoe Choices The following types of shoes are best for people with diabetes Closed toes and heels Leather uppers without a seam inside At least 1/2 inch extra space at the end of your longest toe Inside of shoe should be soft with no rough areas Outer sole should be made of stiff material Shoes should be at least as wide as your feet Tips for Foot Care in Diabetes Don't wait to treat a minor foot problem if you have diabetes. Follow your health care provider's guidelines and first aid guidelines. Report foot injuries and infections to your health care provider immediately. Check water temperature with your elbow, not your foot. Do not use a heating pad on your feet. Do not cross your legs. Do not self-treat your corns, calluses, or other foot problems. Go to your health care provider or paste up worker to treat these conditions. documented in this encounter [facility] 02-16-2022 History of Present illness Narrative Last saw Audrey Podlogar: 01/03/22 Subjective: Patient presents to clinic c/o painful toenails. They state that the nails are especially painful with shoe gear and pressure. Patient states that nails 1-5 b/l are painful. Patient admits to being diabetic. Patient had been experiencing rest pain in both legs. Is now taking muscle relaxant and that is helping. No other pedal complaints at this time. Patient states no change in medications or medical history since last visit. Objective: Patient presents to clinic ambulating in diabetic shoes. Vasc: DP and PT pulses are nonpalpable bilateral. CFT is less than 5 seconds bilateral. Skin temperature is warm to cool proximal to distal bilateral. There is mild edema or varicosities noted. Neuro: Protective sensation is absent to the foot and toes when tested with the 5.07 SWM bilateral. Vibratory sensation is absent at the hallux IPJ bilateral. The hallux is downgoing bilateral. Derm: Nails 1-5 b/l are painful, discolored-yellow, thick, crumbly, dystrophic and with subungal debris. Skin is dry, rubor and hair growth is absent bilateral. There are callus to left hallux and b/l 4th metatasrsal. no ulcerations, scars, verruca or other lesions noted. Ortho: Muscle strength is 5/5 for all pedal groups tested. Ankle joint DF is decreased with the knee extended with no pain or crepitus noted. 1st MPJ ROM is decreased bilateral. Assessment: (B35.1) Onychomycosis (primary encounter diagnosis) (M79.674) Pain in toe of right foot (M79.675) Pain in toe of left foot (L85.9) Hyperkeratosis (E11.42) Type 2 diabetes mellitus with peripheral neuropathy (HCC) (I73.9) PAD (peripheral artery disease) (HCC) Plan: Patient was seen and evaluated. Nails 1-5 bilateral were debrided in length and thickness. Q9 modifier Callus to b/l 4th metatarsal and left hallux debrided with dremmel and 15 blade. In order to perform a complete physical exam, limited shaving was performed. This incidental service is integral to the evaluation and management visit in order to appropriately manage and treat the patient (for their complaint or for this visit). Patient was instructed on the continued importance of diabetic foot care along with proper diet and keeping their blood sugar under control to prevent complications. Smoking cessation performed. Patient is to RTC in 3-4 months. Rao Hillman DPM Patient presents with: Left Foot - Established Patient, Follow Up, nail care Right Foot - Established Patient, Follow Up, nail care Patient presents for follow up nail care. Denies any pain. documented in this encounter [facility] 01-17-2022 Miscellaneous Notes Thanks for your help. Audrey Sw spoke with patient in regards to Jardiance assistance. Patient reports that he is out of Jardiance medication. Sw noted 14 day free voucher for Jardiance. The voucher can only be used 1x. Patient reports that he does not believe that he has ever used voucher. Sw will mail 14 day free voucher, [facility] application, and HIPPA form to patient to complete and bring application and HIPPA form back to provider office to complete prescription and fax forms to [facility]. On our virtual voucher tab, under pharmacy dept there is a 14 day Jardiance voucher. Voucher is only able to be used 1x. Sw not sure if patient has used voucher already. [facility] has a patient assistance program for Jardiance. Patient can apply to [facility] to see if eligible for assistance. Short term option for help if not eligible for voucher, would be to try [employer] in [facility] to see if they could assist with help for monthly cost until able to hear back from PAP. Krystian left message for patient that SW will try call later on this afternoon. Patient calls back and notified that social work therapist consult was placed. Patient verbalizes understanding. Meaghan Fischer RN Patient telephoned, went to . Message left to call back for update. I have placed order for social work therapist to reach out to him to see if they know of any financial assistance he can get. Audrey Packer APRN.EDENILSON Patient calls to report that his Jardiance prescription went from 43 dollars a month to 105 dollars a month and he can no longer afford that. Insurance company told him to call provider. Patient asking what provider recommends. Patient completely out of medication. Meaghan Fischer RN documented in this encounter [facility] 01-16-[address] Sorto note 01/13/22 for Sw response to patient assistance need for Jardiance. documented in this encounter [facility] 01-04-2022 Miscellaneous Notes Glad to hear this helped! Audrey Packer APRN.CNP Pt called and is notified of providers results and instructions. Pt voices understanding. The muscle relaxer you prescribed yesterday really helped, states he didn't have any jumping in his legs last night. Fern Stephen RN Please call patient and let him know his A1c has greatly improved from 8.1% to 6.6%- which is great ! Continue current medications, Potassium was mildly elevated- possible lab error would like him to repeat in the next week. The rest of his blood work is normal. Audrey Packer APRN.EDENILSON documented in this encounter [facility] 11-03-2021 Miscellaneous Notes Patient was notified Alondra Gillette Ma Altitude sickness typically occurs above 8,000 feet elevation. If he is not planning on climbing, I would not make any adjustments to his medication at this time other than increasing his requip to 2 mg as requested. Pt called in again reporting he will be going to [place] where he will be 5000 feet above sea level. He was asking if he should be worried about there being any issues with the medications he is taking. He states he knows that he needs to stay well hydrated. Pt also reports that he is ordered Requip for restless leg at bedtime. He is only ordered to take one tablet, but he states that doesn't help, so he has started taking 2 this last week and that has been helping. Pt is asking if provider would increase his dosing to 2 mg at bedtime. Please call and advise. Pt will be traveling to [place] in October. Pt asking if any of his meds or the stent in his leg can/will affect him in the higher elevation areas? States ~ 10,000' above sea level. Please advise. Dolores Sawyer LPN documented in this encounter [facility] 10-14-2021 Miscellaneous Notes PDMP website checked and validated. All prescriptions have been APPROPRIATELY filled. No suspicious activity was identified. 10/14/2021 by Audrey Packer APRN.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 SPECIALIST SRUTHI: 08/15/2021 requip Last refill:07/18/2021 QTY: 90 Refills: 1 gabapentin Last refill: 06/03/2021 QTY: 90 Refills: 2 Patient has been identified by name and date of : Yes Pending Prescriptions Disp Refills GABAPENTIN 300 MG CAPSULE 90 capsule 2 Sig: Take one capsule three times a day for 30 days JOY: No ROPINIROLE 1 MG TABLET 90 tablet 1 Sig: Take 1 tablet by mouth daily at bedtime. JOY: No RX INSTRUCTIONS: Patient aware RX will be sent to pharmacy. No need to notify patient. Tawny Whelan Pss documented in this encounter [facility] 10-13-2021 History of Present illness Narrative POPULATION HEALTH NAVIGATION OUTREACH Action/FYI Patient due for A1c, YASMANI and AD Call placed to patient - states sees eye dr outside [facility] and YASMANI was just completed in last couple months. Will have eye dr fax records to PCP office for review. States will discuss A1c at follow up appointment Pt identified by name and : YES, via phone Outreach Outcome/Action Spoke to patient or caregiver: Patient declined Did you use a PCP flex slot to schedule this appointment? N/A Reason for Outreach Care Gap or Scheduling/Wellness visits Payer: Payor: [employer] MEDICARE / Plan: [employer] MEDICARE PPO / Product Type: PPO / Care Gap Reviewed:: Diabetic Eye Exam HBA1C Advance Directive Reminder: Reminder note to check Health Maintenance for items below Health Maintenance items due: SHINGRIX VACCINE(1 of 2) Never done DILATED RETINAL EXAM due on 08/02/2019 PNEUMOCOCCAL: 65+(2 - PCV) due on 11/23/2019 LUNG CANCER SCREENING due on 12/28/2019 ADVANCE DIRECTIVE DISCUSSION Never done DEPRESSION SCREENING due on 06/11/2021 HBA1C due on 10/04/2021 Message Sent to Practice: No Navigation Signature: Odalis Stokes Population Health Navigator October 13, 2021 2:06 PM documented in this encounter [facility] 08-15-2021 History of Present illness Narrative Radiology Service Progress Note PATIENT NAME: Joshua Estes DATE OF SERVICE: August 15, 2021 TIME: 8:47 AM PATIENT IDENTITY VERIFICATION COMPLETED USING TWO (2) IDENTIFIERS: Name and Date of confirmed by patient verbally. FALL SCREENING: Has the patient had 2 falls in the last year or 1 fall with injury or currently using an Ambulatory Assistive Device (Walker, Cane, Wheelchair, Crutches, etc.)? No PATIENT GENDER DATA: Male PATIENT RELEVANT IMPLANT DATA REVIEWED: Yes RADIOLOGY DEPARTMENT: General X-ray: Exam(s) Completed: Spine X-Ray(s): Lumbar AP / LAT / L5-S1 PERIPHERAL IV DATA: Not applicable SIGNED BY: RT Feli(R) August 15, 2021 8:47 AM documented in this encounter [facility] 08-15-2021 History of Present illness Narrative 08/15/2021 Patient presents with: ED Follow-up: [facility] 08/09 for right lower back pain SUBJECTIVE: This is a 66 year old that is here today for Above Complaints. One week lifted a picnic table HOSPITAL/ER FOLLOW UP: Reason for visit: back pain Which facility: [facility] Date of visit: 08/09/2021 Diagnosis: low back strain Testing done: CT of ABD/PEL, blood work, urine Treatment given: morphine IV and hydrocodone Current symptoms: right back and right groin pain Pain from right back into right groin. Pain described as sharp. Aggravated by certain movements. Using the heating pad and taking prescribed pain medications with mild relief. Right leg still feels a little weak. Hx of right leg sciatica. Denies hx of back surgery, extremity numbness/tingling, saddle anaesthesia, or urinary/bowel incontinence or inability. ER records reviewed PAST MEDICAL HISTORY Diagnosis Date Aneurysm (HCC) right common femoral artery. Dr. Ordoñez Colon polyps 08/2018 benign, repeat in 10 years Diabetes mellitus, type II (HCC) Diabetic ulcer of toe of right foot (HCC) DVT (deep venous thrombosis) (HCC) Hyperlipidemia Hypertension Obesity PAC (premature atrial contraction) Peripheral arterial disease (HCC) Restless leg syndrome Snoring Tobacco use ALLERGIES Patient has no known allergies. MEDICATIONS Current Outpatient Medications Medication Sig rOPINIRole (REQUIP) 1 mg tablet Take 1 tablet by mouth daily at bedtime. empagliflozin (JARDIANCE) 10 mg tablet Take 1 tablet by mouth once daily. Take 1 tablet once daily in the morning glimepiride (AMARYL) 4 mg tablet Take 2 tablets by mouth daily with breakfast. gabapentin (NEURONTIN) 300 mg capsule Take one capsule three times a day for 30 days famotidine (PEPCID) 20 mg tablet Take 1 tablet by mouth twice daily. lisinopril (ZESTRIL, PRINIVIL) 40 mg tablet Take 1 tablet by mouth once daily. metFORMIN (GLUCOPHAGE) 1,000 mg tablet Take 1 tablet by mouth twice daily with meals. . hydroCHLOROthiazide (HYDRODIURIL, ESIDRIX) 50 mg tablet Take 1 tablet by mouth once daily. atorvastatin (LIPITOR) 40 mg tablet Take 1 tablet by mouth once daily. For cholesterol. blood sugar diagnostic (TRUE METRIX GLUCOSE TEST STRIP) test strip Test once daily DX: E11.42, E11.29 Blood Pressure Monitor (BLOOD PRESSURE KIT) 1 Each once daily. pentoxifylline ER (TRENTAL) 400 mg CR tablet Take 1 tablet by mouth three times daily with meals. Blood-Glucose Meter (TRUE METRIX AIR GLUCOSE METER) misc 1 Device twice daily. Lancets lancets Test once daily DX: E11.42. E11.29 insulin needles, DISPOSABLE, (BD INSULIN PEN NEEDLE UF) 31 gauge x 5/16 ndle 1 Each once daily. aspirin 81 mg chewable tablet Take 1 tablet by mouth once daily. Current Facility-Administered Medications Medication Dose Route Frequency perflutren lipid microspheres 1.3 mL in NaCl (PF) 0.9% 10 mL injection (DEFINITY) INTRAVENOUS DIRECTED PRN sodium chloride 0.9 % (flush) 10 mL (BD POSIFLUSH) 10 mL INTRAVENOUS DIRECTED PRN Medications and allergies reviewed by this provider. SOCIAL HISTORY Social History Tobacco Use Smoking status: Current Every Day Smoker Packs/day: 1.00 Years: 46.00 Pack years: 46.00 Types: Cigarettes Last attempt to quit: 12/03/2015 Years since quittin.7 Smokeless tobacco: Never Used Tobacco comment: Started to smoke again, about 1/2 pack now 05/2017 Vaping Use Vaping Use: Never used Substance Use Topics Alcohol use: No Drug use: No REVIEW OF SYSTEMS All other reviewed and negative other than HPI. OBJECTIVE: BP 138/78 Pulse 84 Temp 36.1 C (96.9 F) Resp 20 Wt 111.4 kg (245 lb 9.6 oz) SpO2 96% BMI 32.40 kg/m . Vital signs reviewed by this provider. APPEARANCE Well appearing, alert, in no acute distress, well-hydrated, well nourished. EYES PERRLA, conjunctiva and sclera normal. NECK Supple, no adenopathy; thyroid symmetric, normal size, no bruits BACK: negative findings: no skin lesions, erythema, or scars, positive findings: limitation of motion - flexion: moderate, extension: moderate and lateral bending: moderate. TTP right lumbar spine around into right groin EXTREMITIES Extremities normal, No deformities, No skin discoloration, No edema and Normal pulses bilaterally. 1+ femoral pulse NEURO Awake, alert and oriented x 3, Reflexes symmetrical, Normal gait, No involuntary motions. and negative findings: muscle tone normal, muscle strength normal, reflexes normal and symmetric, plantar response downgoing bilaterally SKIN Skin color, texture, turgor normal, no suspicious rashes or lesions to exposed skin SHINGRIX VACCINE(1 of 2) Never done DILATED RETINAL EXAM due on 08/02/2019 LUNG CANCER SCREENING due on 12/28/2019 ADVANCE DIRECTIVE DISCUSSION Never done DEPRESSION SCREENING due on 06/11/2021 COVID-19 VACCINE(1) due on 02/21/2022 HBA1C due on 10/04/2021 INFLUENZA(Season Ended) due on 12/01/2021 URINE ALBUMIN:CREATININE RATIO due on 02/22/2022 DIABETIC FOOT EXAM due on 07/04/2022 BP CONTROLLED (<130/80) due on 07/04/2022 LDL CHOLESTEROL due on 07/05/2022 ANNUAL PCP TEAM CHRONIC DISEASE VISIT due on 08/15/2022 PROSTATE CANCER SCREENING DISCUSSION due on 11/23/2023 PNEUMOVAX AGE 65 AND OVER WITH 5YR LOOKBACK(1) due on 11/23/2023 COLORECTAL CANCER SCREENING due on 09/12/2028 DTAP,TDAP,TD(2 - Td or Tdap) due on 11/22/2028 ABDOMINAL AORTIC ANEURYSM SCREENING Completed HEPATITIS C SCREENING Completed MENINGOCOCCAL CONJUGATE Aged Out ASSESSMENT/PLAN: 1. Pain in right lumbar region of back - ICD9: 724.2, ICD10: M54.50 (primary diagnosis) - mo red flag symptoms or exam findings - red flag symptoms discussed, verbalizes understanding - recommend OTC tylenol arthritis along with topicals and ice or heat for 15 minutes at a time- discussed should not sleep on heating pad - XR LUMBAR GENERAL 3V AP/LAT/L5-S1 - CONSULT TO PHYSICAL THERAPY - follow-up if symptoms fail to improve, to ER with red flag symptoms 2. Right groin pain - ICD9: 789.03, ICD10: R10.31 - XR LUMBAR GENERAL 3V AP/LAT/L5-S1 - CONSULT TO PHYSICAL THERAPY - plan as above Audrey Packer APRN.CNP Prescription instructions reviewed with patient as applicable. Patient advised if symptoms do not improve or if symptoms worsen sooner, to contact their primary care physician. Potential red flag symptoms discussed with the patient. Reviewed appropriate action plan to take if red flag symptoms occur. Patient agreeable to treatment plan. documented in this encounter [facility] 08-12-2021 Miscellaneous Notes If develop leg weakness, numbness or tingling of groin area, or urinary/bowel incontinence or inability to urinate or have bowel movement go to ER. Audrey Packer APRN.CNP Protocol recommends see PCP in 4 hours if appointment can't be made have Pt got to UC or ER. Pt declined PCPs appoint jasmina, because he has contractors coming out to his house. He states if he becomes worse he will go to UC or ER. Pt has an appointment scheduled with Audrey Doyle NP on 08/15 at 800 am. Care plan reviewed with patient. Patient voices understanding. Advised patient that if symptoms get worse to be evaluated in Urgent Care or ER. Reason for Disposition [1] SEVERE back pain (e.g., excruciating, unable to do any normal activities) AND [2] not improved 2 hours after pain medicine Answer Assessment - Initial Assessment Questions 1. ONSET: Pain began on Sunday, got worse on Sunday, by Sunday he couldn't walk and went to [facility] ER. 2. LOCATION: Hurts R side lower back just above the hip bone stays in that spot. 3. SEVERITY: - MILD (1-3): doesn't interfere with normal activities - MODERATE (4-7): interferes with normal activities or awakens from sleep - SEVERE (8-10): excruciating pain, unable to do any normal activities Pt rates the pain at an 8/10, he is using a cane right now. Reports he can walk around for a few min, but then he has to sit down. 4. PATTERN: The pain is constant ans sharp. 5. RADIATION: Pt denies. 6. CAUSE: Pt does not know. 7. BACK OVERUSE: Pt denies doing any recent lifting of heavy objects, strenuous work or exercise. 8. MEDICATIONS: Pt denies taking acetaminophen and NSAIDS. Takes daily Asprin. Was give Hydrocodone in ER, says he only takes at night before bed. 9. NEUROLOGIC SYMPTOMS: Pt denies any weakness, numbness, or problems with bowel/bladder control. 10. OTHER SYMPTOMS: Pt denies fever, abdominal pain, burning with urination, or blood in urine. Pt reports Sunday afternoon he lost use of his legs they were very weak had to have daughter bring him to ER. Protocols used: BACK [id number] documented in this encounter [facility] 07-29-2021 History of Present illness Narrative Last saw Audrey Podlogar: 07/04/21 Subjective: Patient presents to clinic c/o painful toenails. They state that the nails are especially painful with shoe gear and pressure. Patient states that nails 1-5 b/l are painful. Patient admits to being diabetic. No other pedal complaints at this time. Patient states no change in medications or medical history since last visit. Objective: Patient presents to clinic ambulating in diabetic shoe Vasc: DP and PT pulses are decreased bilateral. CFT is less than 5 seconds bilateral. Skin temperature is warm to cool proximal to distal bilateral. There is mild edema or varicosities noted. Neuro: Protective sensation is absent to the foot and toes when tested with the 5.07 SWM bilateral. Vibratory sensation is absent at the hallux IPJ bilateral. The hallux is downgoing bilateral. Derm: Nails 1-5 b/l are painful, discolored-yellow, thick, crumbly, dystrophic and with subungal debris. Skin is dry, thin, pallor and hair growth is absent bilateral. There are callus to left hallux and b/l forefoot. no ulcerations, scars, verruca or other lesions noted. Ortho: Muscle strength is 5/5 for all pedal groups tested. Ankle joint DF is decreased with the knee extended with no pain or crepitus noted. 1st MPJ ROM is decreased bilateral. Assessment: (B35.1) Onychomycosis (primary encounter diagnosis) (M79.674) Pain in toe of right foot (M79.675) Pain in toe of left foot (L85.9) Hyperkeratosis (E11.42) Type 2 diabetes mellitus with peripheral neuropathy (HCC) Plan: Patient was seen and evaluated. Nails 1-5 bilateral were debrided in length and thickness. Callus reduced to left hallux with 15 blade. Superficial callus to b/l forefoot x 2 reduced with dremmel. In order to perform a complete physical exam, callus x 2 to b/l forefoot was performed. This incidental service is integral to the evaluation and management visit in order to appropriately manage and treat the patient (for their complaint or for this visit). Patient was instructed on the continued importance of diabetic foot care along with proper diet and keeping their blood sugar under control to prevent complications. Patient is to RTC in 3-4 months. Rao Hillman DPM Patient presents with: Left Foot - Established Patient, Diabetic Foot Care Right Foot - Established Patient, Diabetic Foot Care documented in this encounter [facility] 07-29-2021 Instructions Rao Hillman - 07/29/2021 3:06 PM EDT Diabetes Foot Care Instructions When you have diabetes, proper foot care is very important. Poor foot care may lead to amputation of a foot or leg. As a person with diabetes, you are more vulnerable to foot problems, because diabetes can damage your nerves and reduce blood flow to your feet. Here are some diabetes foot care tips to follow: Wash and Dry Your Feet Daily Use mild soaps Use warm water Pat your skin dry; do not rub. Thoroughly dry your feet. After washing, use lotion on your feet to prevent cracking. Do not put lotion between your toes. Examine Your Feet Each Day Check the tops and bottoms of your feet. Have someone else look at your feet if you cannot see them. Check for dry, cracked skin. Look for blisters, cuts, scratches, or other sores. Check for redness, increased warmth, or tenderness when touching any area of your feet. Check for ingrown toenails, corns, and calluses. If you get a blister or sore from your shoes, do not pop it. Apply a bandage and wear a different pair of shoes. Take Care of Your Toenails Cut toenails after bathing, when they are soft. Cut toenails straight across and smooth with a nail file. Avoid cutting into the corners of toes. Do not cut cuticles. If you have neuropathy (or decreased sensation in your feet) a paste up worker should always cut your toenails. Be Careful When Exercising Walk and exercise in comfortable shoes. Do not exercise when you have open sores on your feet. Protect Your Feet With Shoes and Socks Never go barefoot. Always protect your feet by wearing shoes or hard-soled slippers or footwear. Avoid shoes with high heels and pointed toes. Avoid shoes that expose your toes or heels (such as open-toed shoes or sandals). These types of shoes increase your risk for injury and potential infections. Try on new footwear with the type of socks you usually wear. Do not wear new shoes for more than an hour at a time. Change your socks daily. Look and feel inside your shoes before putting them on to make sure there are no foreign objects or rough areas. Avoid tight socks. Wear natural-fiber socks (cotton, wool, or a cotton-wool blend). Wear special shoes if your health care provider recommends them. Wear shoes/boots that will protect your feet from various weather conditions (cold, moisture, etc.). Make sure your shoes fit properly. If you have neuropathy (nerve damage), you may not notice that your shoes are too tight. Perform the footwear test described below. Footwear Test Use this simple test to see if your shoes fit correctly: Stand on a piece of paper. (Make sure you are standing and not sitting, because your foot changes shape when you stand.) Trace the outline of your foot. Trace the outline of your shoe. Compare the tracings: Is the shoe too narrow? Is your foot crammed into the shoe? The shoe should be at least 1/2 inch longer than your longest toe and as wide as your foot. Proper Shoe Choices The following types of shoes are best for people with diabetes Closed toes and heels Leather uppers without a seam inside At least 1/2 inch extra space at the end of your longest toe Inside of shoe should be soft with no rough areas Outer sole should be made of stiff material Shoes should be at least as wide as your feet Tips for Foot Care in Diabetes Don't wait to treat a minor foot problem if you have diabetes. Follow your health care provider's guidelines and first aid guidelines. Report foot injuries and infections to your health care provider immediately. Check water temperature with your elbow, not your foot. Do not use a heating pad on your feet. Do not cross your legs. Do not self-treat your corns, calluses, or other foot problems. Go to your health care provider or paste up worker to treat these conditions. documented in this encounter [facility] 07-08-2021 Miscellaneous Notes Patient returned call and went over results, notes from Audrey Packer STUDENT TEACHER with understanding. Aware rx to pharmacy. 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 Called patient, no answer. Left a message for him to call back and ask to speak with a nurse. VALENTIN Blank Please call patient and let him know his A1c has worsened. Has went from 6.8% to 8.1%- would recommend we add another medication called jardiance- if medication is to exspensive he needs to let me know this. Take one pill in the AM along with other medications. Update me in two weeks with blood sugar readings. Kidney function decreased some- recommend low salt diet, push fluids and avoid NSAID products. Triglycerides elevated - eat lower carbohydrate diet and aim for at least 150 minutes of exercise per week. Follow-up in office in 3 months due to worsening A1c. Audrey Packer APRN.CNP documented in this encounter [facility] 07-04-2021 History of Present illness Narrative 07/04/2021 Patient presents with: F/U 3 Month Pain: right leg pain SUBJECTIVE: This is a 65 year old that is here today for Above Complaints. Since last office visit has been in good health without ER visits or hospitalizations. DIABETES MELLITUS: Mr. Estes was last seen 6 months ago. Since our last visit he denies excessive thirst or increased frequency of urination, chest pain or dyspnea , new or unusual visual symptoms, low sugar/hypoglycemic reactions, weight loss/gain, lightheadedness/dizziness and bowel changes/loose stools Follows a diabetic diet most of the time. He is compliant with medication(s) and is tolerating med(s) without any side effects. He reports checking his glucose on a twice a day schedule with sugars in the 135-145 range. Patient's last HgA1C was Hemoglobin A1C (%) Date Value 02/21/2021 6.8 06/11/2020 8.1 ) Last Ophthalmology exam was within the past 12 months HTN: Patient is compliant with meds Yes Monitors bp at home: occasionally . Denies side effects: Yes. Chest pain: No. Dyspnea: No. Edema: No. Palpitations: No. Syncope: No. Headache: No. Dizziness: No. HYPERLIPIDEMIA: Patient is taking medications: Yes. Patient is watching diet: Yes. Patient denies myalgias: Yes. Patient denies gi upset: Yes ONSET: 3-4 weeks ago LOCATION: right lower leg DURATION: daily CHARACTERISTICS: like muscle spams AGGRAVATING FEATURES: walking for long periods and laying down in the evening ALLEVIATING FEATURES: uses tylenol which helps RADIATION: none TIMING: worse at night, sometimes during the day Radha reports hx of restless legs and thinks this may be the culprit. 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 PAST MEDICAL HISTORY Diagnosis Date Aneurysm (HCC) right common femoral artery. Dr. Ordoñez Colon polyps 08/2018 benign, repeat in 10 years Diabetes mellitus, type II (HCC) Diabetic ulcer of toe of right foot (HCC) DVT (deep venous thrombosis) (HCC) Hyperlipidemia Hypertension Obesity PAC (premature atrial contraction) Peripheral arterial disease (HCC) Restless leg syndrome Snoring Tobacco use ALLERGIES Patient has no known allergies. MEDICATIONS Current Outpatient Medications Medication Sig glimepiride (AMARYL) 4 mg tablet Take 2 tablets by mouth daily with breakfast. gabapentin (NEURONTIN) 300 mg capsule Take one capsule three times a day for 30 days rOPINIRole (REQUIP) 0.5 mg tablet Take 1 tablet by mouth daily at bedtime. famotidine (PEPCID) 20 mg tablet Take 1 tablet by mouth twice daily. lisinopril (ZESTRIL, PRINIVIL) 40 mg tablet Take 1 tablet by mouth once daily. metFORMIN (GLUCOPHAGE) 1,000 mg tablet Take 1 tablet by mouth twice daily with meals. . hydroCHLOROthiazide (HYDRODIURIL, ESIDRIX) 50 mg tablet Take 1 tablet by mouth once daily. atorvastatin (LIPITOR) 40 mg tablet Take 1 tablet by mouth once daily. For cholesterol. blood sugar diagnostic (TRUE METRIX GLUCOSE TEST STRIP) test strip Test once daily DX: E11.42, E11.29 Blood Pressure Monitor (BLOOD PRESSURE KIT) 1 Each once daily. pentoxifylline ER (TRENTAL) 400 mg CR tablet Take 1 tablet by mouth three times daily with meals. Blood-Glucose Meter (TRUE METRIX AIR GLUCOSE METER) misc 1 Device twice daily. Lancets lancets Test once daily DX: E11.42. E11.29 insulin needles, DISPOSABLE, (BD INSULIN PEN NEEDLE UF) 31 gauge x 5/16 ndle 1 Each once daily. aspirin 81 mg chewable tablet Take 1 tablet by mouth once daily. Current Facility-Administered Medications Medication Dose Route Frequency perflutren lipid microspheres 1.3 mL in NaCl (PF) 0.9% 10 mL injection (DEFINITY) INTRAVENOUS DIRECTED PRN sodium chloride 0.9 % (flush) 10 mL (BD POSIFLUSH) 10 mL INTRAVENOUS DIRECTED PRN Medications and allergies reviewed by this provider. SOCIAL HISTORY Social History Tobacco Use Smoking status: Current Every Day Smoker Packs/day: 1.00 Years: 46.00 Pack years: 46.00 Types: Cigarettes Last attempt to quit: 12/03/2015 Years since quittin.5 Smokeless tobacco: Never Used Tobacco comment: Started to smoke again, about 1/2 pack now 05/2017 Vaping Use Vaping Use: Never used Substance Use Topics Alcohol use: No Drug use: No REVIEW OF SYSTEMS All other reviewed and negative other than HPI. OBJECTIVE: BP 126/76 Pulse (!) 56 Resp 18 Wt 114.7 kg (252 lb 12.8 oz) SpO2 97% BMI 33.35 kg/m . Vital signs reviewed by this provider. APPEARANCE Well appearing, alert, in no acute distress, well-hydrated, well nourished. EYES PERRLA, conjunctiva and sclera normal. HEART: Irregular rhythm without murmur, gallop, or rubs. LUNG clear to auscultation. No wheezes, rhonchi or rales EXTREMITIES No edema. Rakesh in appearance with elevated pallor more prominent in the right leg. 1+ pedal SKIN Skin color, texture, turgor normal, no suspicious rashes or lesions to exposed skin DM foot exam: shoes and socks removed, Calluses Left, hallux and forefeet bilaterally diminished distal pulses, not sensitive to monofilament bilaterally and nails notable for Crumbly, Deformed, Hypertrophic or Yellowish Component Latest Ref Rng & Units 02/21/2021 02/22/2021 Protein, Total 6.3 - 8.0 g/dL 7.3 Albumin 3.9 - 4.9 g/dL 3.9 Calcium 8.5 - 10.2 mg/dL 9.9 Bilirubin, Total 0.2 - 1.3 mg/dL 0.7 Alkaline Phosphatase 38 - 113 U/L 67 AST 14 - 40 U/L 25 Glucose 74 - 99 mg/dL 182 (H) BUN 9 - 24 mg/dL 23 Creatinine 0.73 - 1.22 mg/dL 1.07 Sodium 136 - 144 mmol/L 139 Potassium 3.7 - 5.1 mmol/L 4.4 Chloride 97 - 105 mmol/L 101 CO2 22 - 30 mmol/L 23 Anion Gap 9 - 18 mmol/L 15 ALT 10 - 54 U/L 28 eGFR- >60 eGFR-All Other Races . >60 WBC 3.70 - 11.00 k/uL 10.46 RBC 4.20 - 6.00 m/uL 5.17 Hemoglobin 13.0 - 17.0 g/dL 17.0 Hematocrit 39.0 - 51.0 % 51.3 (H) MCV 80.0 - 100.0 fL 99.2 MCH 26.0 - 34.0 pG 32.9 MCHC 30.5 - 36.0 g/dL 33.1 RDW-CV 11.5 - 15.0 % 14.5 Platelet Count 150 - 400 k/uL 186 MPV 9.0 - 12.7 fL 11.5 Absolute nRBC <0.01 k/uL <0.01 Total Cholesterol, Nonfasting <200 mg/dL 143 Triglycerides, Nonfasting <150 mg/dL 243 (H) HDL Cholesterol, Nonfasting >39 mg/dL 36 (L) LDL Cholesterol, Nonfasting <100 mg/dL 58 Non HDL Cholesterol, Nonfasting <130 mg/dL 107 VLDL Cholesterol, Nonfasting <30 mg/dL 49 (H) Total Chol/HDL Ratio, Nonfasting <5.10 mg/dL 3.97 LDL/HDL Ratio, Nonfasting <2.54 mg/dL 1.61 Creatinine, Ur Random (UCRR) 20 - 300 mg/dL 114.7 Albumin, Urine Random mg/L 236.9 Albumin/Creat Ratio <30 mg/g 207 (H) Hemoglobin A1C 4.3 - 5.6 % 6.8 (H) Estimated Average Glucose mg/dL 148 SHINGRIX VACCINE(1 of 2) Never done DILATED RETINAL EXAM due on 08/02/2019 LUNG CANCER SCREENING due on 12/28/2019 ADVANCE DIRECTIVE DISCUSSION Never done DEPRESSION SCREENING due on 06/11/2021 COVID-19 VACCINE(1) due on 02/21/2022 HBA1C due on 08/21/2021 INFLUENZA(Season Ended) due on 12/01/2021 URINE ALBUMIN:CREATININE RATIO due on 02/22/2022 LDL CHOLESTEROL due on 02/22/2022 DIABETIC FOOT EXAM due on 07/04/2022 ANNUAL PCP TEAM CHRONIC DISEASE VISIT due on 07/04/2022 BP CONTROLLED (<130/80) due on 07/04/2022 PROSTATE CANCER SCREENING DISCUSSION due on 11/23/2023 PNEUMOVAX AGE 65 AND OVER WITH 5YR LOOKBACK(1) due on 11/23/2023 COLORECTAL CANCER SCREENING due on 09/12/2028 DTAP,TDAP,TD(2 - Td or Tdap) due on 11/22/2028 ABDOMINAL AORTIC ANEURYSM SCREENING Completed HEPATITIS C SCREENING Completed MENINGOCOCCAL CONJUGATE Aged Out ASSESSMENT/PLAN: 1. Type 2 diabetes mellitus with microalbuminuria, unspecified whether terminal gauger supervisor insulin use (HCC) - ICD9: 250.40, 791.0, ICD10: E11.29, R80.9 (primary diagnosis) Controlled. - Continue current medications - Blood glucose monitoring on a twice a day schedule - Encouraged regular aerobic exercise and weight loss - Follow up in 6 months, sooner should any other issues arise. - Discussed diabetic education issues of importance of appointments with Clinical Team Manager with patient. - BP goal of <130/80 - LDL goal of <100 - HGB A1C 2. Essential hypertension, benign - ICD9: 401.1, ICD10: I10 - good control - Continue current medication(s) - Encouraged dietary sodium restriction/DASH diet - Recommended regular aerobic exercise. - Recommend home blood pressure monitoring, to bring results in on next visit - Discussed need and benefit for weight loss. - Recheck in 6 months, sooner should new symptoms or problems arise. - Goal of BP <130/80 - Recommended no refined sugar, low refined starch, healthy oil intake (olive oil), healthy protein (fish) along the lines of the Mediterranean diet. - BASIC METABOLIC PNL 3. Restless leg syndrome - ICD9: 333.94, ICD10: G25.81 - will increase ropinirole to 1 mg at bedtime - ROPINIROLE 1 MG TABLET - follow-up if symptoms fail to improve 4. Hyperlipidemia with target LDL less than 100 - ICD9: 272.4, ICD10: E78.5 - to be determined upon return of lab results - Continue current medication. - Continue current dose of atorvastatin (Lipitor) 40 mg. - Encouraged following a low fat, low cholesterol diet. - Discussed the benefits of regular aerobic exercise and weight loss. - Encouraged following a low carbohydrate, healthy oil intake diet. - LIPID PANEL BASIC Audrey Packer APRN.CNP Prescription instructions reviewed with patient as applicable. Patient advised if symptoms do not improve or if symptoms worsen sooner, to contact their primary care physician. Potential red flag symptoms discussed with the patient. Reviewed appropriate action plan to take if red flag symptoms occur. Patient agreeable to treatment plan. documented in this encounter [facility] 06-21-2021 Instructions Mary Carmen Jara APRN.CNP - 06/21/2021 10:57 AM EDT Thank you for allowing me to examine you for signs of skin cancer today. We had an opportunity to discuss my findings and any treatments I recommended. I believe that there are several steps that a person can do to help prevent skin cancers and to detect them at an early, treatable stage: 1) I highly recommend that once a month you perform your own complete skin check looking for changing or unusual spots. Use a wall-mounted mirror and a hand mirror to assist in seeing body areas that are difficult to see otherwise. If you have a family member that can assist, this is often helpful. Additional information can be obtained at www.skincancer.org/zfjg-jpdjcg-rcs ormation/early-detection 2) In many cases, skin cancer can be prevented. The best way to protect yourself is to avoid too much sun and sunburns. Health care providers believe that ultraviolet rays (UV rays) from the sun damage the skin and over time lead to skin cancer. Here are ways to protect yourself: -Don't spend long periods of time in direct sunlight. -Wear hats with brims to protect your face and ears. -Wear long-sleeved shirts and pants to protect your arms and legs. -Use broad spectrum sunscreens with a SPF (skin protection factor) of 30 or higher that protect against burning and tanning rays. Apply the lotion 30 minutes before you go outside. (Broad-spectrum sunscreens protect against UV-B and UV-A rays.) -Wear sunglasses to protect your eyes. -Use a lip balm with sunscreen. -Avoid the sun between 10am and 4pm. -Show any changing mole to your health care provider. documented in this encounter [facility] 06-21-2021 History of Present illness Narrative Images from the original note were not included. Department of Dermatology Mary Carmen Jara APRN.EDENILSON 06/21/2021 Last visit in Dermatology: Visit date not found Objective/Assessment/Plan 1. Seborrheic keratosis Objective Left Hand - Posterior: Hyperkeratotic, stuck-on papule Observational course. Monitor for growth and changes. The nature of sun-induced photo-aging and skin cancers is discussed. Sun avoidance, protective clothing, and the use of 30-SPF sunscreens is advised. Patient is instructed to perform regular self exams. Observe for changing, symptomatic, or new skin lesions and seek care with the patient's primary care provider or with dermatology if any lesions of concern are noted. Follow-up as noted below or as needed. Mary Carmen Jara APRN.CNP Chief Complaint: Patient presents with: LESION, SKIN Subjective and Objective HPI: Joshua Estes is a 65 year old male who presents for: For individual lesion(s). Lesion(s): Spot Location(s): Left hand Duration: Unsure Symptoms: none Severity: mild Inciting factors: unknown Associated symptoms/previous treatments: None Past medical history is reviewed. Medication list is reviewed. Physical Exam included: Left hand including digits and nails Intake obtained by NOEMY Calhoun APRN.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 SPECIALIST documented in this encounter [facility] 07-15-2020 History of Present illness Narrative Radiology Service Progress Note PATIENT NAME: Joshua Estes DATE OF SERVICE: July 15, 2020 TIME: 5:15 PM PATIENT IDENTITY VERIFICATION COMPLETED USING TWO (2) IDENTIFIERS: Name and Date of confirmed by patient verbally. FALL SCREENING: Has the patient had 2 falls in the last year or 1 fall with injury or currently using an Ambulatory Assistive Device (Walker, Cane, Wheelchair, Crutches, etc.)? 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 Maintained good urine output Right groin wound 12/21/2015 05/26/2018 Controlled type 2 diabetes m maurice with microalbuminuria, without long-term current use of insulin 12/21/2015 05/29/2018 Overview: Home meds Lantus 18 units daily at 10 a.m., Metformin A/P: Hold metformin for possible OR debridement. Continue Lantus; SSI periop. Resume metformin when feasible Postoperative wound infection 12/21/2015 Overview: Right groin incisional breakdown after RLE bypass on 12/08/15 A/P - wound culture sent from outpatient clinic - admit for IV abx, wound care - may require OR debridement if not improved with conservative measures Wound infection after surgery 12/21/2015 Malnutrition of mild degree 12/09/201505/04 Ischemia of lower extremity 12/03/201505/04 Tobacco use 06/09/2020 Last Assessment & Plan: Assessment: current every day smoker Diabetic ulcer of toe of right foot 06/09/2020 documented as of this encounter (statuses as of 06/27/2021) [facility] History of Past illness Narrative* Problem Noted Date Resolved Date 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 Maintained good urine output Right groin wound 12/21/2015 05/26/2018 Controlled type 2 diabetes m maurice with microalbuminuria, without long-term current use of insulin 12/21/2015 05/29/2018 Overview: Home meds Lantus 18 units daily at 10 a.m., Metformin A/P: Hold metformin for possible OR debridement. Continue Lantus; SSI periop. Resume metformin when feasible Postoperative wound infection 12/21/2015 Overview: Right groin incisional breakdown after RLE bypass on 12/08/15 A/P - wound culture sent from outpatient clinic - admit for IV abx, wound care - may require OR debridement if not improved with conservative measures Wound infection after surgery 12/21/2015 Malnutrition of mild degree 12/09/201505/04 Ischemia of lower extremity 12/03/201505/04 Tobacco use 06/09/2020 Last Assessment & Plan: Assessment: current every day smoker Diabetic ulcer of toe of right foot 06/09/2020 documented as of this encounter (statuses as of 07/04/2021) [facility] History of Past illness Narrative* Problem Noted Date Resolved Date 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 Maintained good urine output Right groin wound 12/21/2015 05/26/2018 Controlled type 2 diabetes m maurice with microalbuminuria, without long-term current use of insulin 12/21/2015 05/29/2018 Overview: Home meds Lantus 18 units daily at 10 a.m., Metformin A/P: Hold metformin for possible OR debridement. Continue Lantus; SSI periop. Resume metformin when feasible Postoperative wound infection 12/21/2015 Overview: Right groin incisional breakdown after RLE bypass on 12/08/15 A/P - wound culture sent from outpatient clinic - admit for IV abx, wound care - may require OR debridement if not improved with conservative measures Wound infection after surgery 12/21/2015 Malnutrition of mild degree 12/09/201505/04 Ischemia of lower extremity 12/03/201505/04 Tobacco use 06/09/2020 Last Assessment & Plan: Assessment: current every day smoker Diabetic ulcer of toe of right foot 06/09/2020 documented as of this encounter (statuses as of 07/08/2021) [facility] History of Past illness Narrative* Problem Noted Date Resolved Date 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 Maintained good urine output Right groin wound 12/21/2015 05/26/2018 Controlled type 2 diabetes m maurice with microalbuminuria, without long-term current use of insulin 12/21/2015 05/29/2018 Overview: Home meds Lantus 18 units daily at 10 a.m., Metformin A/P: Hold metformin for possible OR debridement. Continue Lantus; SSI periop. Resume metformin when feasible Postoperative wound infection 12/21/2015 Overview: Right groin incisional breakdown after RLE bypass on 12/08/15 A/P - wound culture sent from outpatient clinic - admit for IV abx, wound care - may require OR debridement if not improved with conservative measures Wound infection after surgery 12/21/2015 Malnutrition of mild degree 12/09/201505/04 Ischemia of lower extremity 12/03/201505/04 Tobacco use 06/09/2020 Last Assessment & Plan: Assessment: current every day smoker Diabetic ulcer of toe of right foot 06/09/2020 documented as of this encounter (statuses as of 07/29/2021) [facility]02-[facility]-2018 History of Past illness Narrative* Problem Noted Date Resolved Date 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 Continue Lantus; SSI periop. Resume metformin when feasible Postoperative wound infection 12/21/2015 Overview: Right groin incisional breakdown after RLE bypass on 12/08/15 A/P - wound culture sent from outpatient clinic - admit for IV abx, wound care - may require OR debridement if not improved with conservative measures Wound infection after surgery 12/21/2015 Malnutrition of mild degree 12/09/201505/04 Ischemia of lower extremity 12/03/201505/04 Tobacco use 06/09/2020 Last Assessment & Plan: Assessment: current every day smoker Diabetic ulcer of toe of right foot 06/09/2020 documented as of this encounter (statuses as of 08/12/2021) [facility] History of Past illness Narrative* Problem Noted Date Resolved Date 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 Maintained good urine output Right groin wound 12/21/2015 05/26/2018 Controlled type 2 diabetes m maurice with microalbuminuria, without long-term current use of insulin 12/21/2015 05/29/2018 Overview: Home meds Lantus 18 units daily at 10 a.m., Metformin A/P: Hold metformin for possible OR debridement. Continue Lantus; SSI periop. Resume metformin when feasible Postoperative wound infection 12/21/2015 Overview: Right groin incisional breakdown after RLE bypass on 12/08/15 A/P - wound culture sent from outpatient clinic - admit for IV abx, wound care - may require OR debridement if not improved with conservative measures Wound infection after surgery 12/21/2015 Malnutrition of mild degree 12/09/201505/04 Ischemia of lower extremity 12/03/201505/04 Tobacco use 06/09/2020 Last Assessment & Plan: Assessment: current every day smoker Diabetic ulcer of toe of right foot 06/09/2020 documented as of this encounter (statuses as of 08/15/2021) [facility] History of Past illness Narrative* Problem Noted Date Resolved Date 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 Continue Lantus; SSI periop. Resume metformin when feasible Postoperative wound infection 12/21/2015 Overview: Right groin incisional breakdown after RLE bypass on 12/08/15 A/P - wound culture sent from outpatient clinic - admit for IV abx, wound care - may require OR debridement if not improved with conservative measures Wound infection after surgery 12/21/2015 Malnutrition of mild degree 12/09/201505/04 Ischemia of lower extremity 12/03/201505/04 Tobacco use 06/09/2020 Last Assessment & Plan: Assessment: current every day smoker Diabetic ulcer of toe of right foot 06/09/2020 documented as of this encounter (statuses as of 10/13/2021) [facility] History of Past illness Narrative* Problem Noted Date Resolved Date 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 Maintained good urine output Right groin wound 12/21/2015 05/26/2018 Controlled type 2 diabetes m maurice with microalbuminuria, without long-term current use of insulin 12/21/2015 05/29/2018 Overview: Home meds Lantus 18 units daily at 10 a.m., Metformin A/P: Hold metformin for possible OR debridement. Continue Lantus; SSI periop. Resume metformin when feasible Postoperative wound infection 12/21/2015 Overview: Right groin incisional breakdown after RLE bypass on 12/08/15 A/P - wound culture sent from outpatient clinic - admit for IV abx, wound care - may require OR debridement if not improved with conservative measures Wound infection after surgery 12/21/2015 Malnutrition of mild degree 12/09/201505/04 Ischemia of lower extremity 12/03/201505/04 Tobacco use 06/09/2020 Last Assessment & Plan: Assessment: current every day smoker Diabetic ulcer of toe of right foot 06/09/2020 documented as of this encounter (statuses as of 10/14/2021) [facility] History of Past illness Narrative* Problem Noted Date Resolved Date 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 Maintained good urine output Right groin wound 12/21/2015 05/26/2018 Controlled type 2 diabetes jessica richards with microalbuminuria, without long-term current use of insulin 12/21/2015 05/29/2018 Overview: Home meds Lantus 18 units daily at 10 a.m., Metformin A/P: Hold metformin for possible OR debridement. Continue Lantus; SSI periop. Resume metformin when feasible Postoperative wound infection 12/21/2015 Overview: Right groin incisional breakdown after RLE bypass on 12/08/15 A/P - wound culture sent from outpatient clinic - admit for IV abx, wound care - may require OR debridement if not improved with conservative measures Wound infection after surgery 12/21/2015 Malnutrition of mild degree 12/09/201505/04 Ischemia of lower extremity 12/03/201505/04 Tobacco use 06/09/2020 Last Assessment & Plan: Assessment: current every day smoker Diabetic ulcer of toe of right foot 06/09/2020 documented as of this encounter (statuses as of 11/03/2021) [facility] History of Past illness Narrative* Problem Noted Date Resolved Date 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 Maintained good urine output Right groin wound 12/21/2015 05/26/2018 Controlled type 2 diabetes m maurice with microalbuminuria, without long-term current use of insulin 12/21/2015 05/29/2018 Overview: Home meds Lantus 18 units daily at 10 a.m., Metformin A/P: Hold metformin for possible OR debridement. Continue Lantus; SSI periop. Resume metformin when feasible Postoperative wound infection 12/21/2015 Overview: Right groin incisional breakdown after RLE bypass on 12/08/15 A/P - wound culture sent from outpatient clinic - admit for IV abx, wound care - may require OR debridement if not improved with conservative measures Wound infection after surgery 12/21/2015 Malnutrition of mild degree 12/09/201505/04 Ischemia of lower extremity 12/03/201505/04 Tobacco use 06/09/2020 Last Assessment & Plan: Assessment: current every day smoker Diabetic ulcer of toe of right foot 06/09/2020 documented as of this encounter (statuses as of 01/04/2022) [facility] History of Past illness Narrative* Problem Noted Date Resolved Date 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 Maintained good urine output Right groin wound 12/21/2015 05/26/2018 Controlled type 2 diabetes m maurice with microalbuminuria, without long-term current use of insulin 12/21/2015 05/29/2018 Overview: Home meds Lantus 18 units daily at 10 a.m., Metformin A/P: Hold metformin for possible OR debridement. Continue Lantus; SSI periop. Resume metformin when feasible Postoperative wound infection 12/21/2015 Overview: Right groin incisional breakdown after RLE bypass on 12/08/15 A/P - wound culture sent from outpatient clinic - admit for IV abx, wound care - may require OR debridement if not improved with conservative measures Wound infection after surgery 12/21/2015 Malnutrition of mild degree 12/09/201505/04 Ischemia of lower extremity 12/03/201505/04 Tobacco use 06/09/2020 Last Assessment & Plan: Assessment: current every day smoker Diabetic ulcer of toe of right foot 06/09/2020 documented as of this encounter (statuses as of 01/16/2022) [facility] History of Past illness Narrative* Problem Noted Date Resolved Date 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 Continue Lantus; SSI periop. Resume metformin when feasible Postoperative wound infection 12/21/2015 Overview: Right groin incisional breakdown after RLE bypass on 12/08/15 A/P - wound culture sent from outpatient clinic - admit for IV abx, wound care - may require OR debridement if not improved with conservative measures Wound infection after surgery 12/21/2015 Malnutrition of mild degree 12/09/201505/04 Ischemia of lower extremity 12/03/201505/04 Tobacco use 06/09/2020 Last Assessment & Plan: Assessment: current every day smoker Diabetic ulcer of toe of right foot 06/09/2020 documented as of this encounter (statuses as of 01/25/2022) [facility] History of Past illness Narrative* Problem Noted Date Resolved Date 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 Continue Lantus; SSI periop. Resume metformin when feasible Postoperative wound infection 12/21/2015 Overview: Right groin incisional breakdown after RLE bypass on 12/08/15 A/P - wound culture sent from outpatient clinic - admit for IV abx, wound care - may require OR debridement if not improved with conservative measures Wound infection after surgery 12/21/2015 Malnutrition of mild degree 12/09/201505/04 Ischemia of lower extremity 12/03/201505/04 Tobacco use 06/09/2020 Last Assessment & Plan: Assessment: current every day smoker Diabetic ulcer of toe of right foot 06/09/2020 documented as of this encounter (statuses as of 02/17/2022) [facility] History of Past illness Narrative* Problem Noted Date Resolved Date 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 Maintained good urine output Right groin wound 12/21/2015 05/26/2018 Controlled type 2 diabetes m maurice with microalbuminuria, without long-term current use of insulin 12/21/2015 05/29/2018 Overview: Home meds Lantus 18 units daily at 10 a.m., Metformin A/P: Hold metformin for possible OR debridement. Continue Lantus; SSI periop. Resume metformin when feasible Postoperative wound infection 12/21/2015 Overview: Right groin incisional breakdown after RLE bypass on 12/08/15 A/P - wound culture sent from outpatient clinic - admit for IV abx, wound care - may require OR debridement if not improved with conservative measures Wound infection after surgery 12/21/2015 Malnutrition of mild degree 12/09/201505/04 Ischemia of lower extremity 12/03/201505/04 Tobacco use 06/09/2020 Last Assessment & Plan: Assessment: current every day smoker Diabetic ulcer of toe of right foot 06/09/2020 documented as of this encounter (statuses as of 02/22/2022) [facility] History of Past illness Narrative* Problem Noted Date Resolved Date 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 Continue Lantus; SSI periop. Resume metformin when feasible Postoperative wound infection 12/21/2015 Overview: Right groin incisional breakdown after RLE bypass on 12/08/15 A/P - wound culture sent from outpatient clinic - admit for IV abx, wound care - may require OR debridement if not improved with conservative measures Wound infection after surgery 12/21/2015 Malnutrition of mild degree 12/09/201505/04 Ischemia of lower extremity 12/03/201505/04 Tobacco use 06/09/2020 Last Assessment & Plan: Assessment: current every day smoker Diabetic ulcer of toe of right foot 06/09/2020 documented as of this encounter (statuses as of 03/01/2022) [facility] History of Past illness Narrative* Problem Noted Date Resolved Date 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 Maintained good urine output Right groin wound 12/21/2015 05/26/2018 Controlled type 2 diabetes m maurice with microalbuminuria, without long-term current use of insulin 12/21/2015 05/29/2018 Overview: Home meds Lantus 18 units daily at 10 a.m., Metformin A/P: Hold metformin for possible OR debridement. Continue Lantus; SSI periop. Resume metformin when feasible Postoperative wound infection 12/21/2015 Overview: Right groin incisional breakdown after RLE bypass on 12/08/15 A/P - wound culture sent from outpatient clinic - admit for IV abx, wound care - may require OR debridement if not improved with conservative measures Wound infection after surgery 12/21/2015 Malnutrition of mild degree 12/09/201505/04 Ischemia of lower extremity 12/03/201505/04 Tobacco use 06/09/2020 Last Assessment & Plan: Assessment: current every day smoker Diabetic ulcer of toe of right foot 06/09/2020 documented as of this encounter (statuses as of 03/03/2022) [facility] History of Past illness Narrative* Problem Noted Date Resolved Date 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 Maintained good urine output Right groin wound 12/21/2015 05/26/2018 Controlled type 2 diabetes m maurice with microalbuminuria, without long-term current use of insulin 12/21/2015 05/29/2018 Overview: Home meds Lantus 18 units daily at 10 a.m., Metformin A/P: Hold metformin for possible OR debridement. Continue Lantus; SSI periop. Resume metformin when feasible Postoperative wound infection 12/21/2015 Overview: Right groin incisional breakdown after RLE bypass on 12/08/15 A/P - wound culture sent from outpatient clinic - admit for IV abx, wound care - may require OR debridement if not improved with conservative measures Wound infection after surgery 12/21/2015 Malnutrition of mild degree 12/09/201505/04 Ischemia of lower extremity 12/03/201505/04 Tobacco use 06/09/2020 Last Assessment & Plan: Assessment: current every day smoker Diabetic ulcer of toe of right foot 06/09/2020 documented as of this encounter (statuses as of 03/09/2022) [facility] History of Past illness Narrative* Problem Noted Date Resolved Date 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 Maintained good urine output Right groin wound 12/21/2015 05/26/2018 Controlled type 2 diabetes m maurice with microalbuminuria, without long-term current use of insulin 12/21/2015 05/29/2018 Overview: Home meds Lantus 18 units daily at 10 a.m., Metformin A/P: Hold metformin for possible OR debridement. Continue Lantus; SSI periop. Resume metformin when feasible Postoperative wound infection 12/21/2015 Overview: Right groin incisional breakdown after RLE bypass on 12/08/15 A/P - wound culture sent from outpatient clinic - admit for IV abx, wound care - may require OR debridement if not improved with conservative measures Wound infection after surgery 12/21/2015 Malnutrition of mild degree 12/09/201505/04 Ischemia of lower extremity 12/03/201505/04 Tobacco use 06/09/2020 Last Assessment & Plan: Assessment: current every day smoker Diabetic ulcer of toe of right foot 06/09/2020 documented as of this encounter (statuses as of 03/09/2022) [facility] History of Past illness Narrative* Problem Noted Date Resolved Date 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 Maintained good urine output Right groin wound 12/21/2015 05/26/2018 Controlled type 2 diabetes m maurice with microalbuminuria, without long-term current use of insulin 12/21/2015 05/29/2018 Overview: Home meds Lantus 18 units daily at 10 a.m., Metformin A/P: Hold metformin for possible OR debridement. Continue Lantus; SSI periop. Resume metformin when feasible Postoperative wound infection 12/21/2015 Overview: Right groin incisional breakdown after RLE bypass on 12/08/15 A/P - wound culture sent from outpatient clinic - admit for IV abx, wound care - may require OR debridement if not improved with conservative measures Wound infection after surgery 12/21/2015 Malnutrition of mild degree 12/09/201505/04 Ischemia of lower extremity 12/03/201505/04 Tobacco use 06/09/2020 Last Assessment & Plan: Assessment: current every day smoker Diabetic ulcer of toe of right foot 06/09/2020 documented as of this encounter (statuses as of 03/16/2022) [facility] History of Past illness Narrative* Problem Noted Date Resolved Date 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 Maintained good urine output Right groin wound 12/21/2015 05/26/2018 Controlled type 2 diabetes m maurice with microalbuminuria, without long-term current use of insulin 12/21/2015 05/29/2018 Overview: Home meds Lantus 18 units daily at 10 a.m., Metformin A/P: Hold metformin for possible OR debridement. Continue Lantus; SSI periop. Resume metformin when feasible Postoperative wound infection 12/21/2015 Overview: Right groin incisional breakdown after RLE bypass on 12/08/15 A/P - wound culture sent from outpatient clinic - admit for IV abx, wound care - may require OR debridement if not improved with conservative measures Wound infection after surgery 12/21/2015 Malnutrition of mild degree 12/09/201505/04 Ischemia of lower extremity 12/03/201505/04 Tobacco use 06/09/2020 Last Assessment & Plan: Assessment: current every day smoker Diabetic ulcer of toe of right foot 06/09/2020 documented as of this encounter (statuses as of 04/06/2022) [facility]02-07-2018 History of Past illness Narrative* Problem Noted Date Resolved Date 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 Continue Lantus; SSI periop. Resume metformin when feasible Postoperative wound infection 12/21/2015 Overview: Right groin incisional breakdown after RLE bypass on 12/08/15 A/P - wound culture sent from outpatient clinic - admit for IV abx, wound care - may require OR debridement if not improved with conservative measures Wound infection after surgery 12/21/2015 Malnutrition of mild degree 12/09/201505/04 Ischemia of lower extremity 12/03/201505/04 Tobacco use 06/09/2020 Last Assessment & Plan: Assessment: current every day smoker Diabetic ulcer of toe of right foot 06/09/2020 documented as of this encounter (statuses as of 04/09/2022) [facility]2018 History of Past illness Narrative* Problem Noted Date Resolved Date 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 Continue Lantus; SSI periop. Resume metformin when feasible Postoperative wound infection 12/21/2015 Overview: Right groin incisional breakdown after RLE bypass on 12/08/15 A/P - wound culture sent from outpatient clinic - admit for IV abx, wound care - may require OR debridement if not improved with conservative measures Wound infection after surgery 12/21/2015 Malnutrition of mild degree 12/09/201505/04 Ischemia of lower extremity 12/03/201505/04 Tobacco use 06/09/2020 Last Assessment & Plan: Assessment: current every day smoker Diabetic ulcer of toe of right foot 06/09/2020 documented as of this encounter (statuses as of 04/10/2022) [facility] History of Past illness Narrative* Problem Noted Date Resolved Date 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 Continue Lantus; SSI periop. Resume metformin when feasible Postoperative wound infection 12/21/2015 Overview: Right groin incisional breakdown after RLE bypass on 12/08/15 A/P - wound culture sent from outpatient clinic - admit for IV abx, wound care - may require OR debridement if not improved with conservative measures Wound infection after surgery 12/21/2015 Malnutrition of mild degree 12/09/201505/04 Ischemia of lower extremity 12/03/201505/04 Tobacco use 06/09/2020 Last Assessment & Plan: Assessment: current every day smoker Diabetic ulcer of toe of right foot 06/09/2020 documented as of this encounter (statuses as of 04/11/2022) [facility] History of Past illness Narrative* Problem Noted Date Resolved Date 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 Maintained good urine output Right groin wound 12/21/2015 05/26/2018 Controlled type 2 diabetes m maurice with microalbuminuria, without long-term current use of insulin 12/21/2015 05/29/2018 Overview: Home meds Lantus 18 units daily at 10 a.m., Metformin A/P: Hold metformin for possible OR debridement. Continue Lantus; SSI periop. Resume metformin when feasible Postoperative wound infection 12/21/2015 Overview: Right groin incisional breakdown after RLE bypass on 12/08/15 A/P - wound culture sent from outpatient clinic - admit for IV abx, wound care - may require OR debridement if not improved with conservative measures Wound infection after surgery 12/21/2015 Malnutrition of mild degree 12/09/201505/04 Ischemia of lower extremity 12/03/201505/04 Tobacco use 06/09/2020 Last Assessment & Plan: Assessment: current every day smoker Diabetic ulcer of toe of right foot 06/09/2020 documented as of this encounter (statuses as of 04/12/2022) [facility] History of Past illness Narrative* Problem Noted Date Resolved Date 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 Maintained good urine output Right groin wound 12/21/2015 05/26/2018 Controlled type 2 diabetes m maurice with microalbuminuria, without long-term current use of insulin 12/21/2015 05/29/2018 Overview: Home meds Lantus 18 units daily at 10 a.m., Metformin A/P: Hold metformin for possible OR debridement. Continue Lantus; SSI periop. Resume metformin when feasible Postoperative wound infection 12/21/2015 Overview: Right groin incisional breakdown after RLE bypass on 12/08/15 A/P - wound culture sent from outpatient clinic - admit for IV abx, wound care - may require OR debridement if not improved with conservative measures Wound infection after surgery 12/21/2015 Malnutrition of mild degree 12/09/201505/04 Ischemia of lower extremity 12/03/201505/04 Tobacco use 06/09/2020 Last Assessment & Plan: Assessment: current every day smoker Diabetic ulcer of toe of right foot 06/09/2020 documented as of this encounter (statuses as of 04/17/2022) [facility] History of Past illness Narrative* Problem Noted Date Resolved Date 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 Continue Lantus; SSI periop. Resume metformin when feasible Postoperative wound infection 12/21/2015 Overview: Right groin incisional breakdown after RLE bypass on 12/08/15 A/P - wound culture sent from outpatient clinic - admit for IV abx, wound care - may require OR debridement if not improved with conservative measures Wound infection after surgery 12/21/2015 Malnutrition of mild degree 12/09/201505/04 Ischemia of lower extremity 12/03/201505/04 Tobacco use 06/09/2020 Last Assessment & Plan: Assessment: current every day smoker Diabetic ulcer of toe of right foot 06/09/2020 documented as of this encounter (statuses as of 04/28/2022) [facility] History of Past illness Narrative* Problem Noted Date Resolved Date 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 Maintained good urine output Right groin wound 12/21/2015 05/26/2018 Controlled type 2 diabetes m maurice with microalbuminuria, without long-term current use of insulin 12/21/2015 05/29/2018 Overview: Home meds Lantus 18 units daily at 10 a.m., Metformin A/P: Hold metformin for possible OR debridement. Continue Lantus; SSI periop. Resume metformin when feasible Postoperative wound infection 12/21/2015 Overview: Right groin incisional breakdown after RLE bypass on 12/08/15 A/P - wound culture sent from outpatient clinic - admit for IV abx, wound care - may require OR debridement if not improved with conservative measures Wound infection after surgery 12/21/2015 Malnutrition of mild degree 12/09/201505/04 Ischemia of lower extremity 12/03/201505/04 Tobacco use 06/09/2020 Last Assessment & Plan: Assessment: current every day smoker Diabetic ulcer of toe of right foot 06/09/2020 documented as of this encounter (statuses as of 05/01/2022) [facility] History of Past illness Narrative* Problem Noted Date Resolved Date 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 Continue Lantus; SSI periop. Resume metformin when feasible Postoperative wound infection 12/21/2015 Overview: Right groin incisional breakdown after RLE bypass on 12/08/15 A/P - wound culture sent from outpatient clinic - admit for IV abx, wound care - may require OR debridement if not improved with conservative measures Wound infection after surgery 12/21/2015 Malnutrition of mild degree 12/09/201505/04 Ischemia of lower extremity 12/03/201505/04 Tobacco use 06/09/2020 Last Assessment & Plan: Assessment: current every day smoker Diabetic ulcer of toe of right foot 06/09/2020 documented as of this encounter (statuses as of 05/05/2022) [facility] History of Past illness Narrative* Problem Noted Date Resolved Date 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 Continue Lantus; SSI periop. Resume metformin when feasible Postoperative wound infection 12/21/2015 Overview: Right groin incisional breakdown after RLE bypass on 12/08/15 A/P - wound culture sent from outpatient clinic - admit for IV abx, wound care - may require OR debridement if not improved with conservative measures Wound infection after surgery 12/21/2015 Malnutrition of mild degree 12/09/201505/04 Ischemia of lower extremity 12/03/201505/04 Tobacco use 06/09/2020 Last Assessment & Plan: Assessment: current every day smoker Diabetic ulcer of toe of right foot 06/09/2020 documented as of this encounter (statuses as of 05/10/2022) [facility] History of Past illness Narrative* Problem Noted Date Resolved Date 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 Continue Lantus; SSI periop. Resume metformin when feasible Postoperative wound infection 12/21/2015 Overview: Right groin incisional breakdown after RLE bypass on 12/08/15 A/P - wound culture sent from outpatient clinic - admit for IV abx, wound care - may require OR debridement if not improved with conservative measures Wound infection after surgery 12/21/2015 Malnutrition of mild degree 12/09/201505/04 Ischemia of lower extremity 12/03/201505/04 Tobacco use 06/09/2020 Last Assessment & Plan: Assessment: current every day smoker Diabetic ulcer of toe of right foot 06/09/2020 documented as of this encounter (statuses as of 05/15/2022) [facility] History of Past illness Narrative* Problem Noted Date Resolved Date 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 Continue Lantus; SSI periop. Resume metformin when feasible Postoperative wound infection 12/21/2015 Overview: Right groin incisional breakdown after RLE bypass on 12/08/15 A/P - wound culture sent from outpatient clinic - admit for IV abx, wound care - may require OR debridement if not improved with conservative measures Wound infection after surgery 12/21/2015 Malnutrition of mild degree 12/09/201505/04 Ischemia of lower extremity 12/03/201505/04 Tobacco use 06/09/2020 Last Assessment & Plan: Assessment: current every day smoker Diabetic ulcer of toe of right foot 06/09/2020 documented as of this encounter (statuses as of 05/24/2022) [facility] History of Past illness Narrative* Problem Noted Date Resolved Date 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 Continue Lantus; SSI periop. Resume metformin when feasible Postoperative wound infection 12/21/2015 Overview: Right groin incisional breakdown after RLE bypass on 12/08/15 A/P - wound culture sent from outpatient clinic - admit for IV abx, wound care - may require OR debridement if not improved with conservative measures Wound infection after surgery 12/21/2015 Malnutrition of mild degree 12/09/201505/04 Ischemia of lower extremity 12/03/201505/04 Tobacco use 06/09/2020 Last Assessment & Plan: Assessment: current every day smoker Diabetic ulcer of toe of right foot 06/09/2020 documented as of this encounter (statuses as of 06/02/2022) [facility] History of Past illness Narrative* Problem Noted Date Resolved Date 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 Maintained good urine output Right groin wound 12/21/2015 05/26/2018 Controlled type 2 diabetes m maurice with microalbuminuria, without long-term current use of insulin 12/21/2015 05/29/2018 Overview: Home meds Lantus 18 units daily at 10 a.m., Metformin A/P: Hold metformin for possible OR debridement. Continue Lantus; SSI periop. Resume metformin when feasible Postoperative wound infection 12/21/2015 Overview: Right groin incisional breakdown after RLE bypass on 12/08/15 A/P - wound culture sent from outpatient clinic - admit for IV abx, wound care - may require OR debridement if not improved with conservative measures Wound infection after surgery 12/21/2015 Malnutrition of mild degree 12/09/201505/04 Ischemia of lower extremity 12/03/201505/04 Tobacco use 06/09/2020 Last Assessment & Plan: Assessment: current every day smoker Diabetic ulcer of toe of right foot 06/09/2020 documented as of this encounter (statuses as of 06/05/2022) [facility] History of Past illness Narrative* Problem Noted Date Resolved Date 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 Maintained good urine output Right groin wound 12/21/2015 05/26/2018 Controlled type 2 diabetes m maurice with microalbuminuria, without long-term current use of insulin 12/21/2015 05/29/2018 Overview: Home meds Lantus 18 units daily at 10 a.m., Metformin A/P: Hold metformin for possible OR debridement. Continue Lantus; SSI periop. Resume metformin when feasible Postoperative wound infection 12/21/2015 Overview: Right groin incisional breakdown after RLE bypass on 12/08/15 A/P - wound culture sent from outpatient clinic - admit for IV abx, wound care - may require OR debridement if not improved with conservative measures Wound infection after surgery 12/21/2015 Malnutrition of mild degree 12/09/201505/04 Ischemia of lower extremity 12/03/201505/04 Tobacco use 06/09/2020 Last Assessment & Plan: Assessment: current every day smoker Diabetic ulcer of toe of right foot 06/09/2020 documented as of this encounter (statuses as of 06/29/2022) [facility] History of Past illness Narrative* Problem Noted Date Resolved Date 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 Continue Lantus; SSI periop. Resume metformin when feasible Postoperative wound infection 12/21/2015 Overview: Right groin incisional breakdown after RLE bypass on 12/08/15 A/P - wound culture sent from outpatient clinic - admit for IV abx, wound care - may require OR debridement if not improved with conservative measures Wound infection after surgery 12/21/2015 Malnutrition of mild degree 12/09/201505/04 Ischemia of lower extremity 12/03/201505/04 Tobacco use 06/09/2020 Last Assessment & Plan: Assessment: current every day smoker Diabetic ulcer of toe of right foot 06/09/2020 documented as of this encounter (statuses as of 2022) [facility] History of Past illness Narrative* Problem Noted Date Resolved Date 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 Continue Lantus; SSI periop. Resume metformin when feasible Postoperative wound infection 12/21/2015 Overview: Right groin incisional breakdown after RLE bypass on 12/08/15 A/P - wound culture sent from outpatient clinic - admit for IV abx, wound care - may require OR debridement if not improved with conservative measures Wound infection after surgery 12/21/2015 Malnutrition of mild degree 12/09/201505/04 Ischemia of lower extremity 12/03/201505/04 Tobacco use 06/09/2020 Last Assessment & Plan: Assessment: current every day smoker Diabetic ulcer of toe of right foot 06/09/2020 documented as of this encounter (statuses as of 07/13/2022) [facility]02-07-2018 History of Past illness Narrative* Problem Noted Date Resolved Date 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 Continue Lantus; SSI periop. Resume metformin when feasible Postoperative wound infection 12/21/2015 Overview: Right groin incisional breakdown after RLE bypass on 12/08/15 A/P - wound culture sent from outpatient clinic - admit for IV abx, wound care - may require OR debridement if not improved with conservative measures Wound infection after surgery 12/21/2015 Malnutrition of mild degree 12/09/201505/04 Ischemia of lower extremity 12/03/201505/04 Tobacco use 06/09/2020 Last Assessment & Plan: Assessment: current every day smoker Diabetic ulcer of toe of right foot 06/09/2020 documented as of this encounter (statuses as of 07/20/2022) [facility]2018 History of Past illness Narrative* Problem Noted Date Resolved Date 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 Continue Lantus; SSI periop. Resume metformin when feasible Postoperative wound infection 12/21/2015 Overview: Right groin incisional breakdown after RLE bypass on 12/08/15 A/P - wound culture sent from outpatient clinic - admit for IV abx, wound care - may require OR debridement if not improved with conservative measures Wound infection after surgery 12/21/2015 Malnutrition of mild degree 12/09/201505/04 Ischemia of lower extremity 12/03/201505/04 Tobacco use 06/09/2020 Last Assessment & Plan: Assessment: current every day smoker Diabetic ulcer of toe of right foot 06/09/2020 documented as of this encounter (statuses as of 08/29/2022) [facility] History of Past illness Narrative* Problem Noted Date Resolved Date 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 Continue Lantus; SSI periop. Resume metformin when feasible Postoperative wound infection 12/21/2015 Overview: Right groin incisional breakdown after RLE bypass on 12/08/15 A/P - wound culture sent from outpatient clinic - admit for IV abx, wound care - may require OR debridement if not improved with conservative measures Wound infection after surgery 12/21/2015 Malnutrition of mild degree 12/09/201505/04 Ischemia of lower extremity 12/03/201505/04 Tobacco use 06/09/2020 Last Assessment & Plan: Assessment: current every day smoker Diabetic ulcer of toe of right foot 06/09/2020 documented as of this encounter (statuses as of 09/18/2022) [facility] History of Past illness Narrative* Problem Noted Date Diagnosed Date Resolved Date 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 Continue Lantus; SSI periop. Resume metformin when feasible Postoperative wound infection 12/21/2015 12/28/2015 Overview: Right groin incisional breakdown after RLE bypass on 12/08/15 A/P - wound culture sent from outpatient clinic - admit for IV abx, wound care - may require OR debridement if not improved with conservative measures Wound infection after surgery 12/21/2015 05/26/2018 Malnutrition of mild degree 12/09/2015 05/26/2018 Ischemia of lower extremity 12/03/2015 05/26/2018 Tobacco use 06/09/2020 Last Assessment & Plan: Assessment: current every day smoker Diabetic ulcer of toe of right foot 06/09/2020 documented as of this encounter (statuses as of 10/18/2022) [facility] History of Past illness Narrative* Problem Noted Date Diagnosed Date Resolved Date 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 Maintained good urine output Right groin wound 12/21/2015 05/26/2018 Controlled type 2 diabetes m maurice with microalbuminuria, without long-term current use of insulin 12/21/2015 05/29/2018 Overview: Home meds Lantus 18 units daily at 10 a.m., Metformin A/P: Hold metformin for possible OR debridement. Continue Lantus; SSI periop. Resume metformin when feasible Postoperative wound infection 12/21/2015 12/28/2015 Overview: Right groin incisional breakdown after RLE bypass on 12/08/15 A/P - wound culture sent from outpatient clinic - admit for IV abx, wound care - may require OR debridement if not improved with conservative measures Wound infection after surgery 12/21/2015 05/26/2018 Malnutrition of mild degree 12/09/2015 05/26/2018 Ischemia of lower extremity 12/03/2015 05/26/2018 Tobacco use 06/09/2020 Last Assessment & Plan: Assessment: current every day smoker Diabetic ulcer of toe of right foot 06/09/2020 documented as of this encounter (statuses as of 11/07/2022) [facility] History of Past illness Narrative* Problem Noted Date Diagnosed Date Resolved Date 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 Continue Lantus; SSI periop. Resume metformin when feasible Postoperative wound infection 12/21/2015 12/28/2015 Overview: Right groin incisional breakdown after RLE bypass on 12/08/15 A/P - wound culture sent from outpatient clinic - admit for IV abx, wound care - may require OR debridement if not improved with conservative measures Wound infection after surgery 12/21/2015 05/26/2018 Malnutrition of mild degree 12/09/2015 05/26/2018 Ischemia of lower extremity 12/03/2015 05/26/2018 Tobacco use 06/09/2020 Last Assessment & Plan: Assessment: current every day smoker Diabetic ulcer of toe of right foot 06/09/2020 documented as of this encounter (statuses as of 11/08/2022) [facility] History of Past illness Narrative* Problem Noted Date Diagnosed Date Resolved Date 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 Maintained good urine output Right groin wound 12/21/2015 05/26/2018 Controlled type 2 diabetes m maurice with microalbuminuria, without long-term current use of insulin 12/21/2015 05/29/2018 Overview: Home meds Lantus 18 units daily at 10 a.m., Metformin A/P: Hold metformin for possible OR debridement. Continue Lantus; SSI periop. Resume metformin when feasible Postoperative wound infection 12/21/2015 12/28/2015 Overview: Right groin incisional breakdown after RLE bypass on 12/08/15 A/P - wound culture sent from outpatient clinic - admit for IV abx, wound care - may require OR debridement if not improved with conservative measures Wound infection after surgery 12/21/2015 05/26/2018 Malnutrition of mild degree 12/09/2015 05/26/2018 Ischemia of lower extremity 12/03/2015 05/26/2018 Tobacco use 06/09/2020 Last Assessment & Plan: Assessment: current every day smoker Diabetic ulcer of toe of right foot 06/09/2020 documented as of this encounter (statuses as of 11/21/2022) [facility] History of Past illness Narrative* Problem Noted Date Diagnosed Date Resolved Date 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 Maintained good urine output Right groin wound 12/21/2015 05/26/2018 Controlled type 2 diabetes m maurice with microalbuminuria, without long-term current use of insulin 12/21/2015 05/29/2018 Overview: Home meds Lantus 18 units daily at 10 a.m., Metformin A/P: Hold metformin for possible OR debridement. Continue Lantus; SSI periop. Resume metformin when feasible Postoperative wound infection 12/21/2015 12/28/2015 Overview: Right groin incisional breakdown after RLE bypass on 12/08/15 A/P - wound culture sent from outpatient clinic - admit for IV abx, wound care - may require OR debridement if not improved with conservative measures Wound infection after surgery 12/21/2015 05/26/2018 Malnutrition of mild degree 12/09/2015 05/26/2018 Ischemia of lower extremity 12/03/2015 05/26/2018 Tobacco use 06/09/2020 Last Assessment & Plan: Assessment: current every day smoker Diabetic ulcer of toe of right foot 06/09/2020 documented as of this encounter (statuses as of 11/21/2022) [facility] History of Past illness Narrative* Problem Noted Date Diagnosed Date Resolved Date 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 Continue Lantus; SSI periop. Resume metformin when feasible Postoperative wound infection 12/21/2015 12/28/2015 Overview: Right groin incisional breakdown after RLE bypass on 12/08/15 A/P - wound culture sent from outpatient clinic - admit for IV abx, wound care - may require OR debridement if not improved with conservative measures Wound infection after surgery 12/21/2015 05/26/2018 Malnutrition of mild degree 12/09/2015 05/26/2018 Ischemia of lower extremity 12/03/2015 05/26/2018 Tobacco use 06/09/2020 Last Assessment & Plan: Assessment: current every day smoker Diabetic ulcer of toe of right foot 06/09/2020 documented as of this encounter (statuses as of 11/28/2022) [facility] History of Past illness Narrative* Problem Noted Date Diagnosed Date Resolved Date 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 Maintained good urine output Right groin wound 12/21/2015 05/26/2018 Controlled type 2 diabetes m maurice with microalbuminuria, without long-term current use of insulin ([facility]) 12/21/2015 05/29/2018 Overview: Home meds Lantus 18 units daily at 10 a.m., Metformin A/P: Hold metformin for possible OR debridement. Continue Lantus; SSI periop. Resume metformin when feasible Postoperative wound infection 12/21/2015 12/28/2015 Overview: Right groin incisional breakdown after RLE bypass on 12/08/15 A/P - wound culture sent from outpatient clinic - admit for IV abx, wound care - may require OR debridement if not improved with conservative measures Wound infection after surgery 12/21/2015 05/26/2018 Malnutrition of mild degree 12/09/2015 05/26/2018 Ischemia of lower extremity 12/03/2015 05/26/2018 Tobacco use 06/09/2020 Last Assessment & Plan: Assessment: current every day smoker Diabetic ulcer of toe of right foot 06/09/2020 documented as of this encounter (statuses as of 01/06/2023) [facility]2018 History of Past illness Narrative* Problem Noted Date Diagnosed Date Resolved Date 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 Maintained good urine output Right groin wound 12/21/2015 05/26/2018 Controlled type 2 diabetes m maurice with microalbuminuria, without long-term current use of insulin ([facility]) 12/21/2015 05/29/2018 Overview: Home meds Lantus 18 units daily at 10 a.m., Metformin A/P: Hold metformin for possible OR debridement. Continue Lantus; SSI periop. Resume metformin when feasible Postoperative wound infection 12/21/2015 12/28/2015 Overview: Right groin incisional breakdown after RLE bypass on 12/08/15 A/P - wound culture sent from outpatient clinic - admit for IV abx, wound care - may require OR debridement if not improved with conservative measures Wound infection after surgery 12/21/2015 05/26/2018 Malnutrition of mild degree 12/09/2015 05/26/2018 Ischemia of lower extremity 12/03/2015 05/26/2018 Tobacco use 06/09/2020 Last Assessment & Plan: Assessment: current every day smoker Diabetic ulcer of toe of right foot 06/09/2020 documented as of this encounter (statuses as of 01/09/2023) [facility] History of Past illness Narrative* Problem Noted Date Diagnosed Date Resolved Date 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 Maintained good urine output Right groin wound 12/21/2015 05/26/2018 Controlled type 2 diabetes m maurice with microalbuminuria, without long-term current use of insulin 12/21/2015 05/29/2018 Overview: Home meds Lantus 18 units daily at 10 a.m., Metformin A/P: Hold metformin for possible OR debridement. Continue Lantus; SSI periop. Resume metformin when feasible Postoperative wound infection 12/21/2015 12/28/2015 Overview: Right groin incisional breakdown after RLE bypass on 12/08/15 A/P - wound culture sent from outpatient clinic - admit for IV abx, wound care - may require OR debridement if not improved with conservative measures Wound infection after surgery 12/21/2015 05/26/2018 Malnutrition of mild degree 12/09/2015 05/26/2018 Ischemia of lower extremity 12/03/2015 05/26/2018 Tobacco use 06/09/2020 Last Assessment & Plan: Assessment: current every day smoker Diabetic ulcer of toe of right foot 06/09/2020 documented as of this encounter (statuses as of 02/04/2023) [facility] History of Past illness Narrative* Problem Noted Date Diagnosed Date Resolved Date 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 Maintained good urine output Right groin wound 12/21/2015 05/26/2018 Controlled type 2 diabetes m maurice with microalbuminuria, without long-term current use of insulin 12/21/2015 05/29/2018 Overview: Home meds Lantus 18 units daily at 10 a.m., Metformin A/P: Hold metformin for possible OR debridement. Continue Lantus; SSI periop. Resume metformin when feasible Postoperative wound infection 12/21/2015 12/28/2015 Overview: Right groin incisional breakdown after RLE bypass on 12/08/15 A/P - wound culture sent from outpatient clinic - admit for IV abx, wound care - may require OR debridement if not improved with conservative measures Wound infection after surgery 12/21/2015 05/26/2018 Malnutrition of mild degree 12/09/2015 05/26/2018 Ischemia of lower extremity 12/03/2015 05/26/2018 Tobacco use 06/09/2020 Last Assessment & Plan: Assessment: current every day smoker Diabetic ulcer of toe of right foot 06/09/2020 documented as of this encounter (statuses as of 02/04/2023) [facility] History of Past illness Narrative* Problem Noted Date Diagnosed Date Resolved Date 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 Maintained good urine output Right groin wound 12/21/2015 05/26/2018 Controlled type 2 diabetes m maurice with microalbuminuria, without long-term current use of insulin ([facility]) 12/21/2015 05/29/2018 Overview: Home meds Lantus 18 units daily at 10 a.m., Metformin A/P: Hold metformin for possible OR debridement. Continue Lantus; SSI periop. Resume metformin when feasible Postoperative wound infection 12/21/2015 12/28/2015 Overview: Right groin incisional breakdown after RLE bypass on 12/08/15 A/P - wound culture sent from outpatient clinic - admit for IV abx, wound care - may require OR debridement if not improved with conservative measures Wound infection after surgery 12/21/2015 05/26/2018 Malnutrition of mild degree 12/09/2015 05/26/2018 Ischemia of lower extremity 12/03/2015 05/26/2018 Tobacco use 06/09/2020 Last Assessment & Plan: Assessment: current every day smoker Diabetic ulcer of toe of right foot 06/09/2020 documented as of this encounter (statuses as of 02/07/2023) [facility] History of Past illness Narrative* Problem Noted Date Diagnosed Date Resolved Date 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 Maintained good urine output Right groin wound 12/21/2015 05/26/2018 Controlled type 2 diabetes m maurice with microalbuminuria, without long-term current use of insulin ([facility]) 12/21/2015 05/29/2018 Overview: Home meds Lantus 18 units daily at 10 a.m., Metformin A/P: Hold metformin for possible OR debridement. Continue Lantus; SSI periop. Resume metformin when feasible Postoperative wound infection 12/21/2015 12/28/2015 Overview: Right groin incisional breakdown after RLE bypass on 12/08/15 A/P - wound culture sent from outpatient clinic - admit for IV abx, wound care - may require OR debridement if not improved with conservative measures Wound infection after surgery 12/21/2015 05/26/2018 Malnutrition of mild degree 12/09/2015 05/26/2018 Ischemia of lower extremity 12/03/2015 05/26/2018 Tobacco use 06/09/2020 Last Assessment & Plan: Assessment: current every day smoker Diabetic ulcer of toe of right foot 06/09/2020 documented as of this encounter (statuses as of 02/26/2023) [facility] History of Past illness Narrative* Problem Noted Date Diagnosed Date Resolved Date 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 Continue Lantus; SSI periop. Resume metformin when feasible Postoperative wound infection 12/21/2015 12/28/2015 Overview: Right groin incisional breakdown after RLE bypass on 12/08/15 A/P - wound culture sent from outpatient clinic - admit for IV abx, wound care - may require OR debridement if not improved with conservative measures Wound infection after surgery 12/21/2015 05/26/2018 Malnutrition of mild degree 12/09/2015 05/26/2018 Ischemia of lower extremity 12/03/2015 05/26/2018 Tobacco use 06/09/2020 Last Assessment & Plan: Assessment: current every day smoker Diabetic ulcer of toe of right foot 06/09/2020 documented as of this encounter (statuses as of 05/07/2023) [facility] History of Past illness Narrative* Problem Noted Date Diagnosed Date Resolved Date 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 Continue Lantus; SSI periop. Resume metformin when feasible Postoperative wound infection 12/21/2015 12/28/2015 Overview: Right groin incisional breakdown after RLE bypass on 12/08/15 A/P - wound culture sent from outpatient clinic - admit for IV abx, wound care - may require OR debridement if not improved with conservative measures Wound infection after surgery 12/21/2015 05/26/2018 Malnutrition of mild degree 12/09/2015 05/26/2018 Ischemia of lower extremity 12/03/2015 05/26/2018 Tobacco use 06/09/2020 Last Assessment & Plan: Assessment: current every day smoker Diabetic ulcer of toe of right foot 06/09/2020 documented as of this encounter (statuses as of 05/10/2023) [facility] History of Past illness Narrative* Problem Noted Date Diagnosed Date Resolved Date 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 Maintained good urine output Right groin wound 12/21/2015 05/26/2018 Controlled type 2 diabetes m auroraitus with microalbuminuria, without long-term current use of insulin ([facility]) 12/21/2015 05/29/2018 Overview: Home meds Lantus 18 units daily at 10 a.m., Metformin A/P: Hold metformin for possible OR debridement. Continue Lantus; SSI periop. Resume metformin when feasible Postoperative wound infection 12/21/2015 12/28/2015 Overview: Right groin incisional breakdown after RLE bypass on 12/08/15 A/P - wound culture sent from outpatient clinic - admit for IV abx, wound care - may require OR debridement if not improved with conservative measures Wound infection after surgery 12/21/2015 05/26/2018 Malnutrition of mild degree 12/09/2015 05/26/2018 Ischemia of lower extremity 12/03/2015 05/26/2018 Tobacco use 06/09/2020 Last Assessment & Plan: Assessment: current every day smoker Diabetic ulcer of toe of right foot 06/09/2020 documented as of this encounter (statuses as of 05/10/2023) [facility] History of Past illness Narrative* Problem Noted Date Diagnosed Date Resolved Date 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 Continue Lantus; SSI periop. Resume metformin when feasible Postoperative wound infection 12/21/2015 12/28/2015 Overview: Right groin incisional breakdown after RLE bypass on 12/08/15 A/P - wound culture sent from outpatient clinic - admit for IV abx, wound care - may require OR debridement if not improved with conservative measures Wound infection after surgery 12/21/2015 05/26/2018 Malnutrition of mild degree 12/09/2015 05/26/2018 Ischemia of lower extremity 12/03/2015 05/26/2018 Tobacco use 06/09/2020 Last Assessment & Plan: Assessment: current every day smoker Diabetic ulcer of toe of right foot 06/09/2020 documented as of this encounter (statuses as of 05/11/2023) [facility] History of Past illness Narrative* Problem Noted Date Diagnosed Date Resolved Date 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 Continue Lantus; SSI periop. Resume metformin when feasible Postoperative wound infection 12/21/2015 12/28/2015 Overview: Right groin incisional breakdown after RLE bypass on 12/08/15 A/P - wound culture sent from outpatient clinic - admit for IV abx, wound care - may require OR debridement if not improved with conservative measures Wound infection after surgery 12/21/2015 05/26/2018 Malnutrition of mild degree 12/09/2015 05/26/2018 Ischemia of lower extremity 12/03/2015 05/26/2018 Tobacco use 06/09/2020 Last Assessment & Plan: Assessment: current every day smoker Diabetic ulcer of toe of right foot 06/09/2020 documented as of this encounter (statuses as of 05/19/2023) [facility] History of Past illness Narrative* Problem Noted Date Diagnosed Date Resolved Date 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 Continue Lantus; SSI periop. Resume metformin when feasible Postoperative wound infection 12/21/2015 12/28/2015 Overview: Right groin incisional breakdown after RLE bypass on 12/08/15 A/P - wound culture sent from outpatient clinic - admit for IV abx, wound care - may require OR debridement if not improved with conservative measures Wound infection after surgery 12/21/2015 05/26/2018 Malnutrition of mild degree 12/09/2015 05/26/2018 Ischemia of lower extremity 12/03/2015 05/26/2018 Tobacco use 06/09/2020 Last Assessment & Plan: Assessment: current every day smoker Diabetic ulcer of toe of right foot 06/09/2020 documented as of this encounter (statuses as of 06/02/2023) [facility] History of Past illness Narrative* Problem Noted Date Diagnosed Date Resolved Date 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 Maintained good urine output Right groin wound 12/21/2015 05/26/2018 Controlled type 2 diabetes m maurice with microalbuminuria, without long-term current use of insulin ([facility]) 12/21/2015 05/29/2018 Overview: Home meds Lantus 18 units daily at 10 a.m., Metformin A/P: Hold metformin for possible OR debridement. Continue Lantus; SSI periop. Resume metformin when feasible Postoperative wound infection 12/21/2015 12/28/2015 Overview: Right groin incisional breakdown after RLE bypass on 12/08/15 A/P - wound culture sent from outpatient clinic - admit for IV abx, wound care - may require OR debridement if not improved with conservative measures Wound infection after surgery 12/21/2015 05/26/2018 Malnutrition of mild degree 12/09/2015 05/26/2018 Ischemia of lower extremity 12/03/2015 05/26/2018 Tobacco use 06/09/2020 Last Assessment & Plan: Assessment: current every day smoker Diabetic ulcer of toe of right foot 06/09/2020 documented as of this encounter (statuses as of 07/05/2023) [facility] History of Past illness Narrative* Problem Noted Date Diagnosed Date Resolved Date 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 Maintained good urine output Right groin wound 12/21/2015 05/26/2018 Controlled type 2 diabetes m maurice with microalbuminuria, without long-term current use of insulin ([facility]CC) 12/21/2015 05/29/2018 Overview: Home meds Lantus 18 units daily at 10 a.m., Metformin A/P: Hold metformin for possible OR debridement. Continue Lantus; SSI periop. Resume metformin when feasible Postoperative wound infection 12/21/2015 12/28/2015 Overview: Right groin incisional breakdown after RLE bypass on 12/08/15 A/P - wound culture sent from outpatient clinic - admit for IV abx, wound care - may require OR debridement if not improved with conservative measures Wound infection after surgery 12/21/2015 05/26/2018 Malnutrition of mild degree 12/09/2015 05/26/2018 Ischemia of lower extremity 12/03/2015 05/26/2018 Tobacco use 06/09/2020 Last Assessment & Plan: Assessment: current every day smoker Diabetic ulcer of toe of right foot 06/09/2020 documented as of this encounter (statuses as of 07/09/2023) [facility] Seborrheic keratosis- Primary Other seborrheic keratosis [facility] Diagnosis Type 2 diabetes mellitus with microalbuminuria, unspecified whether halfway insulin use (HCC)- Primary Essential hypertension, benign Restless leg syndrome Restless legs syndrome (RLS) Hyperlipidemia with target LDL less than 100 Other and unspecified hyperlipidemia [facility]* Diagnosis Onychomycosis- Primary Dermatophytosis of nail Pain in toe of right foot Pain in limb Pain in toe of left foot Pain in limb Hyperkeratosis 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) [facility] Diagnosis Pain in right lumbar region of back- Primary Right groin pain Abdominal pain, right lower quadrant [facility]* Diagnosis Type 2 diabetes mellitus with peripheral neuropathy (HCC) Restless leg syndrome Restless legs syndrome (RLS) [facility]* Diagnosis Restless leg syndrome Restless legs syndrome (RLS) [facility]* Diagnosis Hyperkalemia- Primary Hyperpotassemia [facility] Diagnosis Financial difficulty- Primary Inadequate material resources [facility] Diagnosis Onychomycosis- Primary Dermatophytosis of nail Pain in toe of right foot Pain in limb Pain in toe of left foot Pain in limb Hyperkeratosis 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) PAD (peripheral artery disease) (HCC) Peripheral vascular disease, unspecified documented in this encounter [facility] note* Diagnosis Bacterial sinusitis- Primary Unspecified sinusitis (chronic) [facility] Diagnosis Hypertension, essential Unspecified essential hypertension Type 2 diabetes mellitus with microalbuminuria, unspecified whether halfway insulin use ([facility]) [facility] Diagnosis Chronic sinusitis, unspecified location- Primary [facility] Diagnosis Type 2 diabetes mellitus with peripheral neuropathy (HCC) [facility] Diagnosis Chronic sinusitis, unspecified location- Primary [facility] Diagnosis Pharyngitis, unspecified etiology- Primary Diarrhea, unspecified type Sinus pressure Other diseases of nasal cavity and sinuses [facility] Diagnosis Thunderclap headache- Primary Headache Chronic sinusitis, unspecified location Chronic cough Cough Sore throat Acute pharyngitis [facility] Diagnosis Anxiety- Primary Anxiety state, unspecified [facility] Diagnosis Chronic cough- Primary Cough C. difficile diarrhea Intestinal infection due to clostridium difficile Essential hypertension, benign [facility] Diagnosis Chronic cough Cough [facility] Diagnosis Abnormal pulmonary function test Nonspecific abnormal results of pulmonary system function study [facility] Diagnosis Abnormal pulmonary function test- Primary Nonspecific abnormal results of pulmonary system function study [facility] Diagnosis Cough, unspecified type- Primary Essential hypertension, benign Irregular heart beat Cardiac dysrhythmia, unspecified [facility] Diagnosis Restless leg syndrome Restless legs syndrome (RLS) [facility] Diagnosis Onychomycosis- Primary Dermatophytosis of nail Pain in toe of right foot Pain in limb Pain in toe of left foot Pain in limb Hyperkeratosis 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) PAD (peripheral artery disease) (HCC) Peripheral vascular disease, unspecified [facility] Diagnosis Restless leg syndrome Restless legs syndrome (RLS) [facility]* Diagnosis Foot pain, right- Primary Pain in limb Cellulitis of skin Cellulitis and abscess of unspecified site Foot swelling Swelling of limb [facility]* Diagnosis Right foot pain- Primary Pain in limb Charcot ankle, right Onychomycosis Dermatophytosis of nail Pain in toe of right foot Pain in limb Pain in toe of left foot Pain in limb Hyperkeratosis 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) PAD (peripheral artery disease) (HCC) Peripheral vascular disease, unspecified [facility] Diagnosis Decreased breath sounds at left lung base- Primary Chronic cough Cough Essential hypertension, benign Restless leg syndrome Restless legs syndrome (RLS) [facility]* Diagnosis Right foot pain- Primary Pain in limb Type 2 diabetes mellitus with peripheral neuropathy (HCC) PAD (peripheral artery disease) (HCC) Peripheral vascular disease, unspecified [facility]* Diagnosis Type 2 diabetes mellitus with peripheral neuropathy (HCC)- Primary Essential hypertension, benign Restless leg syndrome Restless legs syndrome (RLS) Hyperlipidemia with target LDL less than 100 Other and unspecified hyperlipidemia Peripheral arterial disease (HCC) Peripheral vascular disease, unspecified [facility]* Diagnosis Type 2 diabetes mellitus with peripheral neuropathy (HCC)- Primary [facility]* Diagnosis Charcot ankle, right [facility]* Diagnosis Thunderclap headache Headache [facility]* Diagnosis Foot pain, right Pain in limb [facility]* Diagnosis Type 2 diabetes mellitus with peripheral neuropathy (HCC) [facility]* Diagnosis Ulcer of toe of left foot, limited to breakdown of skin ([facility])- Primary Diabetic polyneuropathy associated with diabetes mellitus due to underlying condition (HCC) [facility]* Diagnosis Essential hypertension, benign [facility] Diagnosis Upper respiratory tract infection, unspecified type- Primary Sinus pressure Other diseases of nasal cavity and sinuses [facility] Diagnosis Type 2 diabetes mellitus with peripheral neuropathy (HCC)- Primary Hyperlipidemia with target LDL less than 100 Other and unspecified hyperlipidemia Peripheral arterial disease (HCC) Peripheral vascular disease, unspecified Essential hypertension, benign Restless leg syndrome Restless legs syndrome (RLS) [facility] Diagnosis Callus of foot- Primary Corns and callosities Hammertoe of left foot Type 2 diabetes mellitus with peripheral neuropathy (HCC) [facility] Diagnosis Persistent cough for 3 weeks or longer- Primary Irregular heartbeat Cardiac dysrhythmia, unspecified Bigeminy Other specified cardiac dysrhythmias PAC (premature atrial contraction) Supraventricular premature beats Bradycardia Other specified cardiac dysrhythmias Abnormal EKG Nonspecific abnormal electrocardiogram (ECG) (EKG) [facility] Diagnosis Type 2 diabetes mellitus with peripheral neuropathy (HCC) Essential hypertension, benign [facility] Diagnosis Elevated hemoglobin (HCC)- Primary Other hemoglobinopathies [facility] Diagnosis Persistent cough- Primary Cough [facility] Diagnosis Persistent cough Cough [facility] Diagnosis Restrictive lung disease- Primary Other diseases of lung, not elsewhere classified [facility] Diagnosis Restrictive lung disease Other diseases of lung, not elsewhere classified Persistent cough Cough [facility] Diagnosis Restrictive lung disease Other diseases of lung, not elsewhere classified Persistent cough Cough Restrictive lung disease- Primary Other diseases of lung, not elsewhere classified Persistent cough Cough [facility] Diagnosis Type 2 diabetes mellitus with peripheral neuropathy (HCC) [facility] Diagnosis History of environmental allergies- Primary Other allergy, other than to medicinal agents Restrictive lung disease Other diseases of lung, not elsewhere classified Mild intermittent asthma without complication Unspecified asthma Current smoker Tobacco use disorder Undiagnosed JOSE (obstructive sleep apnea) Obstructive sleep apnea (adult) (pediatric) [facility] Diagnosis Callus of foot- Primary Corns and callosities Diabetic polyneuropathy associated with diabetes mellitus due to underlying condition (HCC) Onychomycosis Dermatophytosis of nail Pain in toe of left foot Pain in limb Pain in toe of right foot Pain in limb [facility] Diagnosis Pre-operative examination- Primary Preoperative examination, unspecified Pain in right foot Pain in limb Peripheral arterial disease (HCC) Peripheral vascular disease, unspecified Type 2 diabetes mellitus with peripheral neuropathy (HCC) Hyperlipidemia with target LDL less than 100 Other and unspecified hyperlipidemia Essential hypertension, benign Tobacco use Tobacco use disorder Gastroesophageal reflux disease, esophagitis presence not specified Class 1 obesity due to excess calories with serious comorbidity and body mass index (BMI) of 33.0 to 33.9 in adult Diabetic polyneuropathy associated with diabetes mellitus due to underlying condition (HCC)- Primary Onychomycosis Dermatophytosis of nail Pain in toe of left foot Pain in limb Pain in toe of right foot Pain in limb Callus of foot Corns and callosities documented in this encounter [facility] note* Diagnosis Pre-operative examination- Primary Preoperative examination, unspecified Pain in right foot Pain in limb Peripheral arterial disease (HCC) Peripheral vascular disease, unspecified Type 2 diabetes mellitus with peripheral neuropathy (HCC) Hyperlipidemia with target LDL less than 100 Other and unspecified hyperlipidemia Essential hypertension, benign Tobacco use Tobacco use disorder Gastroesophageal reflux disease, esophagitis presence not specified Class 1 obesity due to excess calories with serious comorbidity and body mass index (BMI) of 33.0 to 33.9 in adult Muscle spasms of both lower extremities- Primary Type 2 diabetes mellitus with peripheral neuropathy (HCC) Loss of taste Disturbances of sensation of smell and taste [facility] Diagnosis Pre-operative examination- Primary Preoperative examination, unspecified Pain in right foot Pain in limb Peripheral arterial disease (HCC) Peripheral vascular disease, unspecified Type 2 diabetes mellitus with peripheral neuropathy (HCC) Hyperlipidemia with target LDL less than 100 Other and unspecified hyperlipidemia Essential hypertension, benign Tobacco use Tobacco use disorder Gastroesophageal reflux disease, esophagitis presence not specified Class 1 obesity due to excess calories with serious comorbidity and body mass index (BMI) of 33.0 to 33.9 in adult Persistent cough for 3 weeks or longer [facility]* Diagnosis Pre-operative examination- Primary Preoperative examination, unspecified Pain in right foot Pain in limb Peripheral arterial disease (HCC) Peripheral vascular disease, unspecified Type 2 diabetes mellitus with peripheral neuropathy (HCC) Hyperlipidemia with target LDL less than 100 Other and unspecified hyperlipidemia Essential hypertension, benign Tobacco use Tobacco use disorder Gastroesophageal reflux disease, esophagitis presence not specified Class 1 obesity due to excess calories with serious comorbidity and body mass index (BMI) of 33.0 to 33.9 in adult Chronic cough Cough Decreased breath sounds at left lung base documented in this encounter [facility] note* Diagnosis Pre-operative examination- Primary Preoperative examination, unspecified Pain in right foot Pain in limb Peripheral arterial disease (HCC) Peripheral vascular disease, unspecified Type 2 diabetes mellitus with peripheral neuropathy (HCC) Hyperlipidemia with target LDL less than 100 Other and unspecified hyperlipidemia Essential hypertension, benign Tobacco use Tobacco use disorder Gastroesophageal reflux disease, esophagitis presence not specified Class 1 obesity due to excess calories with serious comorbidity and body mass index (BMI) of 33.0 to 33.9 in adult Chronic sinusitis, unspecified location documented in this encounter [facility] note* Diagnosis Pre-operative examination- Primary Preoperative examination, unspecified Pain in right foot Pain in limb Peripheral arterial disease (HCC) Peripheral vascular disease, unspecified Type 2 diabetes mellitus with peripheral neuropathy (HCC) Hyperlipidemia with target LDL less than 100 Other and unspecified hyperlipidemia Essential hypertension, benign Tobacco use Tobacco use disorder Gastroesophageal reflux disease, esophagitis presence not specified Class 1 obesity due to excess calories with serious comorbidity and body mass index (BMI) of 33.0 to 33.9 in adult Pain in right lumbar region of back Right groin pain Abdominal pain, right lower quadrant documented in this encounter [facility] note* Diagnosis Pre-operative examination- Primary Preoperative examination, unspecified Pain in right foot Pain in limb Peripheral arterial disease (HCC) Peripheral vascular disease, unspecified Type 2 diabetes mellitus with peripheral neuropathy (HCC) Hyperlipidemia with target LDL less than 100 Other and unspecified hyperlipidemia Essential hypertension, benign Tobacco use Tobacco use disorder Gastroesophageal reflux disease, esophagitis presence not specified Class 1 obesity due to excess calories with serious comorbidity and body mass index (BMI) of 33.0 to 33.9 in adult Right leg pain Pain in limb Radicular pain Neuralgia, neuritis, and radiculitis, unspecified documented in this encounter [facility] note* Diagnosis Pre-operative examination- Primary Preoperative examination, unspecified Pain in right foot Pain in limb Peripheral arterial disease (HCC) Peripheral vascular disease, unspecified Type 2 diabetes mellitus with peripheral neuropathy (HCC) Hyperlipidemia with target LDL less than 100 Other and unspecified hyperlipidemia Essential hypertension, benign Tobacco use Tobacco use disorder Gastroesophageal reflux disease, esophagitis presence not specified Class 1 obesity due to excess calories with serious comorbidity and body mass index (BMI) of 33.0 to 33.9 in adult Type 2 diabetes mellitus with peripheral neuropathy (HCC)- Primary Essential hypertension, benign Restrictive lung disease Other diseases of lung, not elsewhere classified Restless leg syndrome Restless legs syndrome (RLS) Peripheral arterial disease (HCC) Peripheral vascular disease, unspecified Hyperlipidemia with target LDL less than 100 Other and unspecified hyperlipidemia Claustrophobia Other isolated or specific phobias [facility] Diagnosis Pre-operative examination- Primary Preoperative examination, unspecified Pain in right foot Pain in limb Peripheral arterial disease (HCC) Peripheral vascular disease, unspecified Type 2 diabetes mellitus with peripheral neuropathy (HCC) Hyperlipidemia with target LDL less than 100 Other and unspecified hyperlipidemia Essential hypertension, benign Tobacco use Tobacco use disorder Gastroesophageal reflux disease, esophagitis presence not specified Class 1 obesity due to excess calories with serious comorbidity and body mass index (BMI) of 33.0 to 33.9 in adult Peripheral arterial disease (HCC)- Primary Peripheral vascular disease, unspecified [facility] Diagnosis Pre-operative examination- Primary Preoperative examination, unspecified Pain in right foot Pain in limb Peripheral arterial disease (HCC) Peripheral vascular disease, unspecified Type 2 diabetes mellitus with peripheral neuropathy (HCC) Hyperlipidemia with target LDL less than 100 Other and unspecified hyperlipidemia Essential hypertension, benign Tobacco use Tobacco use disorder Gastroesophageal reflux disease, esophagitis presence not specified Class 1 obesity due to excess calories with serious comorbidity and body mass index (BMI) of 33.0 to 33.9 in adult Muscle spasms of both lower extremities [facility] Diagnosis Pre-operative examination- Primary Preoperative examination, unspecified Pain in right foot Pain in limb Peripheral arterial disease (HCC) Peripheral vascular disease, unspecified Type 2 diabetes mellitus with peripheral neuropathy (HCC) Hyperlipidemia with target LDL less than 100 Other and unspecified hyperlipidemia Essential hypertension, benign Tobacco use Tobacco use disorder Gastroesophageal reflux disease, esophagitis presence not specified Class 1 obesity due to excess calories with serious comorbidity and body mass index (BMI) of 33.0 to 33.9 in adult Peripheral arterial disease (HCC)- Primary Peripheral vascular disease, unspecified Hypercholesteremia Pure hypercholesterolemia [facility] Diagnosis Pre-operative examination- Primary Preoperative examination, unspecified Pain in right foot Pain in limb Peripheral arterial disease (HCC) Peripheral vascular disease, unspecified Type 2 diabetes mellitus with peripheral neuropathy (HCC) Hyperlipidemia with target LDL less than 100 Other and unspecified hyperlipidemia Essential hypertension, benign Tobacco use Tobacco use disorder Gastroesophageal reflux disease, esophagitis presence not specified Class 1 obesity due to excess calories with serious comorbidity and body mass index (BMI) of 33.0 to 33.9 in adult Daytime somnolence- Primary Hypersomnia, unspecified Snoring Other dyspnea and respiratory abnormality [facility] Diagnosis Pre-operative examination- Primary Preoperative examination, unspecified Pain in right foot Pain in limb Peripheral arterial disease (HCC) Peripheral vascular disease, unspecified Type 2 diabetes mellitus with peripheral neuropathy (HCC) Hyperlipidemia with target LDL less than 100 Other and unspecified hyperlipidemia Essential hypertension, benign Tobacco use Tobacco use disorder Gastroesophageal reflux disease, esophagitis presence not specified Class 1 obesity due to excess calories with serious comorbidity and body mass index (BMI) of 33.0 to 33.9 in adult Type 2 diabetes mellitus with peripheral neuropathy (HCC) Essential hypertension, benign [facility] Diagnosis Pre-operative examination- Primary Preoperative examination, unspecified Pain in right foot Pain in limb Peripheral arterial disease (HCC) Peripheral vascular disease, unspecified Type 2 diabetes mellitus with peripheral neuropathy (HCC) Hyperlipidemia with target LDL less than 100 Other and unspecified hyperlipidemia Essential hypertension, benign Tobacco use Tobacco use disorder Gastroesophageal reflux disease, esophagitis presence not specified Class 1 obesity due to excess calories with serious comorbidity and body mass index (BMI) of 33.0 to 33.9 in adult Muscle spasms of both lower extremities [facility]* Diagnosis Pre-operative examination- Primary Preoperative examination, unspecified Pain in right foot Pain in limb Peripheral arterial disease (HCC) Peripheral vascular disease, unspecified Type 2 diabetes mellitus with peripheral neuropathy (HCC) Hyperlipidemia with target LDL less than 100 Other and unspecified hyperlipidemia Essential hypertension, benign Tobacco use Tobacco use disorder Gastroesophageal reflux disease, esophagitis presence not specified Class 1 obesity due to excess calories with serious comorbidity and body mass index (BMI) of 33.0 to 33.9 in adult Muscle spasms of both lower extremities [facility]* Diagnosis Pre-operative examination- Primary Preoperative examination, unspecified Pain in right foot Pain in limb Peripheral arterial disease (HCC) Peripheral vascular disease, unspecified Type 2 diabetes mellitus with peripheral neuropathy (HCC) Hyperlipidemia with target LDL less than 100 Other and unspecified hyperlipidemia Essential hypertension, benign Tobacco use Tobacco use disorder Gastroesophageal reflux disease, esophagitis presence not specified Class 1 obesity due to excess calories with serious comorbidity and body mass index (BMI) of 33.0 to 33.9 in adult Restless leg syndrome- Primary Restless legs syndrome (RLS) [facility]* Diagnosis Pre-operative examination- Primary Preoperative examination, unspecified Pain in right foot Pain in limb Peripheral arterial disease (HCC) Peripheral vascular disease, unspecified Type 2 diabetes mellitus with peripheral neuropathy (HCC) Hyperlipidemia with target LDL less than 100 Other and unspecified hyperlipidemia Essential hypertension, benign Tobacco use Tobacco use disorder Gastroesophageal reflux disease, esophagitis presence not specified Class 1 obesity due to excess calories with serious comorbidity and body mass index (BMI) of 33.0 to 33.9 in adult Diabetic polyneuropathy associated with diabetes mellitus due to underlying condition ([facility])- Primary Onychomycosis Dermatophytosis of nail Pain in toe of left foot Pain in limb Pain in toe of right foot Pain in limb Callus of foot Corns and callosities Chronic pain of right ankle documented in this encounter [facility] note* Diagnosis Pre-operative examination- Primary Preoperative examination, unspecified Pain in right foot Pain in limb Peripheral arterial disease (HCC) Peripheral vascular disease, unspecified Type 2 diabetes mellitus with peripheral neuropathy (HCC) Hyperlipidemia with target LDL less than 100 Other and unspecified hyperlipidemia Essential hypertension, benign Tobacco use Tobacco use disorder Gastroesophageal reflux disease, esophagitis presence not specified Class 1 obesity due to excess calories with serious comorbidity and body mass index (BMI) of 33.0 to 33.9 in adult Chronic pain of right ankle documented in this encounter [facility] note* Diagnosis Pre-operative examination- Primary Preoperative examination, unspecified Pain in right foot Pain in limb Peripheral arterial disease (HCC) Peripheral vascular disease, unspecified Type 2 diabetes mellitus with peripheral neuropathy (HCC) Hyperlipidemia with target LDL less than 100 Other and unspecified hyperlipidemia Essential hypertension, benign Tobacco use Tobacco use disorder Gastroesophageal reflux disease, esophagitis presence not specified Class 1 obesity due to excess calories with serious comorbidity and body mass index (BMI) of 33.0 to 33.9 in adult Restless leg syndrome Restless legs syndrome (RLS) Muscle spasms of both lower extremities documented in this encounter [facility] note* Diagnosis Pre-operative examination- Primary Preoperative examination, unspecified Pain in right foot Pain in limb Peripheral arterial disease (HCC) Peripheral vascular disease, unspecified Type 2 diabetes mellitus with peripheral neuropathy (HCC) Hyperlipidemia with target LDL less than 100 Other and unspecified hyperlipidemia Essential hypertension, benign Tobacco use Tobacco use disorder Gastroesophageal reflux disease, esophagitis presence not specified Class 1 obesity due to excess calories with serious comorbidity and body mass index (BMI) of 33.0 to 33.9 in adult Restless leg syndrome- Primary Restless legs syndrome (RLS) documented in this encounter [facility] note* Diagnosis Pre-operative examination- Primary Preoperative examination, unspecified Pain in right foot Pain in limb Peripheral arterial disease (HCC) Peripheral vascular disease, unspecified Type 2 diabetes mellitus with peripheral neuropathy (HCC) Hyperlipidemia with target LDL less than 100 Other and unspecified hyperlipidemia Essential hypertension, benign Tobacco use Tobacco use disorder Gastroesophageal reflux disease, esophagitis presence not specified Class 1 obesity due to excess calories with serious comorbidity and body mass index (BMI) of 33.0 to 33.9 in adult Muscle spasms of both lower extremities documented in this encounter [facility] note* Diagnosis Pre-operative examination- Primary Preoperative examination, unspecified Pain in right foot Pain in limb Peripheral arterial disease (HCC) Peripheral vascular disease, unspecified Type 2 diabetes mellitus with peripheral neuropathy (HCC) Hyperlipidemia with target LDL less than 100 Other and unspecified hyperlipidemia Essential hypertension, benign Tobacco use Tobacco use disorder Gastroesophageal reflux disease, esophagitis presence not specified Class 1 obesity due to excess calories with serious comorbidity and body mass index (BMI) of 33.0 to 33.9 in adult Restless leg syndrome Restless legs syndrome (RLS) documented in this encounter [facility] note* Diagnosis Pre-operative examination- Primary Preoperative examination, unspecified Pain in right foot Pain in limb Peripheral arterial disease (HCC) Peripheral vascular disease, unspecified Type 2 diabetes mellitus with peripheral neuropathy (HCC) Hyperlipidemia with target LDL less than 100 Other and unspecified hyperlipidemia Essential hypertension, benign Tobacco use Tobacco use disorder Gastroesophageal reflux disease, esophagitis presence not specified Class 1 obesity due to excess calories with serious comorbidity and body mass index (BMI) of 33.0 to 33.9 in adult Restless leg syndrome Restless legs syndrome (RLS) [facility] Diagnosis Pre-operative examination- Primary Preoperative examination, unspecified Pain in right foot Pain in limb Peripheral arterial disease (HCC) Peripheral vascular disease, unspecified Type 2 diabetes mellitus with peripheral neuropathy (HCC) Hyperlipidemia with target LDL less than 100 Other and unspecified hyperlipidemia Essential hypertension, benign Tobacco use Tobacco use disorder Gastroesophageal reflux disease, esophagitis presence not specified Class 1 obesity due to excess calories with serious comorbidity and body mass index (BMI) of 33.0 to 33.9 in adult Restless leg syndrome Restless legs syndrome (RLS) [facility]* Diagnosis Pre-operative examination- Primary Preoperative examination, unspecified Pain in right foot Pain in limb Peripheral arterial disease (HCC) Peripheral vascular disease, unspecified Type 2 diabetes mellitus with peripheral neuropathy (HCC) Hyperlipidemia with target LDL less than 100 Other and unspecified hyperlipidemia Essential hypertension, benign Tobacco use Tobacco use disorder Gastroesophageal reflux disease, esophagitis presence not specified Class 1 obesity due to excess calories with serious comorbidity and body mass index (BMI) of 33.0 to 33.9 in adult Onychomycosis- Primary Dermatophytosis of nail Pain in toe of left foot Pain in limb Pain in toe of right foot Pain in limb Callus of foot Corns and callosities Type 2 diabetes mellitus with peripheral neuropathy (HCC) documented [facility]* Diagnosis Pre-operative examination- Primary Preoperative examination, unspecified Pain in right foot Pain in limb Peripheral arterial disease Peripheral vascular disease, unspecified Type 2 diabetes mellitus with peripheral neuropathy (HCC) Hyperlipidemia with target LDL less than 100 Other and unspecified hyperlipidemia Essential hypertension, benign Tobacco use Tobacco use disorder Gastroesophageal reflux disease, esophagitis presence not specified Class 1 obesity due to excess calories with serious comorbidity and body mass index (BMI) of 33.0 to 33.9 in adult Low ferritin level- Primary Other nonspecific findings on examination of blood documented [facility]* Diagnosis Pre-operative examination- Primary Preoperative examination, unspecified Pain in right foot Pain in limb Peripheral arterial disease Peripheral vascular disease, unspecified Type 2 diabetes mellitus with peripheral neuropathy (HCC) Hyperlipidemia with target LDL less than 100 Other and unspecified hyperlipidemia Essential hypertension, benign Tobacco use Tobacco use disorder Gastroesophageal reflux disease, esophagitis presence not specified Class 1 obesity due to excess calories with serious comorbidity and body mass index (BMI) of 33.0 to 33.9 in adult Type 2 diabetes mellitus with peripheral neuropathy (HCC)- Primary Sleep disturbance Sleep disturbance, unspecified Essential hypertension, benign Hypercholesteremia Pure hypercholesterolemia Restless leg syndrome Restless legs syndrome (RLS) Skin lesion Unspecified disorder of skin and subcutaneous tissue Productive cough Cough Tobacco use disorder Encounter for immunization Need for other specified prophylactic vaccination against single bacterial disease [facility]* Diagnosis Pre-operative examination- Primary Preoperative examination, unspecified Pain in right foot Pain in limb Peripheral arterial disease Peripheral vascular disease, unspecified Type 2 diabetes mellitus with peripheral neuropathy (HCC) Hyperlipidemia with target LDL less than 100 Other and unspecified hyperlipidemia Essential hypertension, benign Tobacco use Tobacco use disorder Gastroesophageal reflux disease, esophagitis presence not specified Class 1 obesity due to excess calories with serious comorbidity and body mass index (BMI) of 33.0 to 33.9 in adult Stage 3a chronic kidney disease (HCC)- Primary documented in this encounter [facility] note* Diagnosis Pre-operative examination- Primary Preoperative examination, unspecified Pain in right foot Pain in limb Peripheral arterial disease Peripheral vascular disease, unspecified Type 2 diabetes mellitus with peripheral neuropathy (HCC) Hyperlipidemia with target LDL less than 100 Other and unspecified hyperlipidemia Essential hypertension, benign Tobacco use Tobacco use disorder Gastroesophageal reflux disease, esophagitis presence not specified Class 1 obesity due to excess calories with serious comorbidity and body mass index (BMI) of 33.0 to 33.9 in adult Stage 3a chronic kidney disease (HCC) [facility] Diagnosis Pre-operative examination- Primary Preoperative examination, unspecified Pain in right foot Pain in limb Peripheral arterial disease Peripheral vascular disease, unspecified Type 2 diabetes mellitus with peripheral neuropathy (HCC) Hyperlipidemia with target LDL less than 100 Other and unspecified hyperlipidemia Essential hypertension, benign Tobacco use Tobacco use disorder Gastroesophageal reflux disease, esophagitis presence not specified Class 1 obesity due to excess calories with serious comorbidity and body mass index (BMI) of 33.0 to 33.9 in adult Leg swelling- Primary Swelling of limb Abnormal lung sounds Abnormal chest sounds Abnormal lung sounds Abnormal chest sounds documented [facility]* Diagnosis Pre-operative examination- Primary Preoperative examination, unspecified Pain in right foot Pain in limb Peripheral arterial disease Peripheral vascular disease, unspecified Type 2 diabetes mellitus with peripheral neuropathy (HCC) Hyperlipidemia with target LDL less than 100 Other and unspecified hyperlipidemia Essential hypertension, benign Tobacco use Tobacco use disorder Gastroesophageal reflux disease, esophagitis presence not specified Class 1 obesity due to excess calories with serious comorbidity and body mass index (BMI) of 33.0 to 33.9 in adult Abnormal lung sounds Abnormal chest sounds documented in [facility]* Diagnosis Pre-operative examination- Primary Preoperative examination, unspecified Pain in right foot Pain in limb Peripheral arterial disease Peripheral vascular disease, unspecified Type 2 diabetes mellitus with peripheral neuropathy (HCC) Hyperlipidemia with target LDL less than 100 Other and unspecified hyperlipidemia Essential hypertension, benign Tobacco use Tobacco use disorder Gastroesophageal reflux disease, esophagitis presence not specified Class 1 obesity due to excess calories with serious comorbidity and body mass index (BMI) of 33.0 to 33.9 in adult Essential hypertension, benign documented in this [facility] Diagnosis Pre-operative examination- Primary Preoperative examination, unspecified Pain in right foot Pain in limb Peripheral arterial disease Peripheral vascular disease, unspecified Type 2 diabetes mellitus with peripheral neuropathy (HCC) Hyperlipidemia with target LDL less than 100 Other and unspecified hyperlipidemia Essential hypertension, benign Tobacco use Tobacco use disorder Gastroesophageal reflux disease, esophagitis presence not specified Class 1 obesity due to excess calories with serious comorbidity and body mass index (BMI) of 33.0 to 33.9 in adult Type 2 diabetes mellitus with peripheral neuropathy (HCC) Essential hypertension, benign documented in this encounter [facility]* Diagnosis Pre-operative examination- Primary Preoperative examination, unspecified Pain in right foot Pain in limb Peripheral arterial disease Peripheral vascular disease, unspecified Type 2 diabetes mellitus with peripheral neuropathy (HCC) Hyperlipidemia with target LDL less than 100 Other and unspecified hyperlipidemia Essential hypertension, benign Tobacco use Tobacco use disorder Gastroesophageal reflux disease, esophagitis presence not specified Class 1 obesity due to excess calories with serious comorbidity and body mass index (BMI) of 33.0 to 33.9 in adult Restless leg syndrome Restless legs syndrome (RLS) documented in this encounter [facility] note* Diagnosis Pre-operative examination- Primary Preoperative examination, unspecified Pain in right foot Pain in limb Peripheral arterial disease Peripheral vascular disease, unspecified Type 2 diabetes mellitus with peripheral neuropathy (HCC) Hyperlipidemia with target LDL less than 100 Other and unspecified hyperlipidemia Essential hypertension, benign Tobacco use Tobacco use disorder Gastroesophageal reflux disease, esophagitis presence not specified Class 1 obesity due to excess calories with serious comorbidity and body mass index (BMI) of 33.0 to 33.9 in adult Facial cellulitis- Primary Cellulitis and abscess of face documented in this encounter [facility]* Diagnosis Pre-operative examination- Primary Preoperative examination, unspecified Pain in right foot Pain in limb Peripheral arterial disease Peripheral vascular disease, unspecified Type 2 diabetes mellitus with peripheral neuropathy (HCC) Hyperlipidemia with target LDL less than 100 Other and unspecified hyperlipidemia Essential hypertension, benign Tobacco use Tobacco use disorder Gastroesophageal reflux disease, esophagitis presence not specified Class 1 obesity due to excess calories with serious comorbidity and body mass index (BMI) of 33.0 to 33.9 in adult Facial cellulitis- Primary Cellulitis and abscess of face Chronic cough Cough Tobacco use Tobacco use disorder documented in this encounter [facility]* Diagnosis Pre-operative examination- Primary Preoperative examination, unspecified Pain in right foot Pain in limb Peripheral arterial disease Peripheral vascular disease, unspecified Type 2 diabetes mellitus with peripheral neuropathy (HCC) Hyperlipidemia with target LDL less than 100 Other and unspecified hyperlipidemia Essential hypertension, benign Tobacco use Tobacco use disorder Gastroesophageal reflux disease, esophagitis presence not specified Class 1 obesity due to excess calories with serious comorbidity and body mass index (BMI) of 33.0 to 33.9 in adult Diabetic ulcer of toe associated with diabetes mellitus due to underlying condition, with fat layer exposed, unspecified laterality (HCC) documented in this encounter [facility]* Diagnosis Pre-operative examination- Primary Preoperative examination, unspecified Pain in right foot Pain in limb Peripheral arterial disease Peripheral vascular disease, unspecified Type 2 diabetes mellitus with peripheral neuropathy (HCC) Hyperlipidemia with target LDL less than 100 Other and unspecified hyperlipidemia Essential hypertension, benign Tobacco use Tobacco use disorder Gastroesophageal reflux disease, esophagitis presence not specified Class 1 obesity due to excess calories with serious comorbidity and body mass index (BMI) of 33.0 to 33.9 in adult Type 2 diabetes mellitus with peripheral neuropathy (HCC) documented in this encounter [facility]* Diagnosis Pre-operative examination- Primary Preoperative examination, unspecified Pain in right foot Pain in limb Peripheral arterial disease Peripheral vascular disease, unspecified Type 2 diabetes mellitus with peripheral neuropathy (HCC) Hyperlipidemia with target LDL less than 100 Other and unspecified hyperlipidemia Essential hypertension, benign Tobacco use Tobacco use disorder Gastroesophageal reflux disease, esophagitis presence not specified Class 1 obesity due to excess calories with serious comorbidity and body mass index (BMI) of 33.0 to 33.9 in adult Diabetic ulcer of toe associated with diabetes mellitus due to underlying condition, with fat layer exposed, unspecified laterality (HCC)- Primary Onychomycosis Dermatophytosis of nail Pain in toe of left foot Pain in limb Pain in toe of right foot Pain in limb Callus of foot Corns and callosities Diabetic ulcer of toe associated with diabetes mellitus due to underlying condition, with fat layer exposed, unspecified laterality (HCC) Snoring Other dyspnea and respiratory abnormality Daytime somnolence Hypersomnia, unspecified [facility] Diagnosis Pre-operative examination- Primary Preoperative examination, unspecified Pain in right foot Pain in limb Peripheral arterial disease Peripheral vascular disease, unspecified Type 2 diabetes mellitus with peripheral neuropathy (HCC) Hyperlipidemia with target LDL less than 100 Other and unspecified hyperlipidemia Essential hypertension, benign Tobacco use Tobacco use disorder Gastroesophageal reflux disease, esophagitis presence not specified Class 1 obesity due to excess calories with serious comorbidity and body mass index (BMI) of 33.0 to 33.9 in adult Snoring Other dyspnea and respiratory abnormality Daytime somnolence Hypersomnia, unspecified Diabetic ulcer of toe associated with diabetes mellitus due to underlying condition, with fat layer exposed, unspecified laterality (HCC)- Primary [facility] Diagnosis Pre-operative examination- Primary Preoperative examination, unspecified Pain in right foot Pain in limb Peripheral arterial disease Peripheral vascular disease, unspecified Type 2 diabetes mellitus with peripheral neuropathy (HCC) Hyperlipidemia with target LDL less than 100 Other and unspecified hyperlipidemia Essential hypertension, benign Tobacco use Tobacco use disorder Gastroesophageal reflux disease, esophagitis presence not specified Class 1 obesity due to excess calories with serious comorbidity and body mass index (BMI) of 33.0 to 33.9 in adult Low ferritin level Other nonspecific findings on examination of blood [facility] Diagnosis Pre-operative examination- Primary Preoperative examination, unspecified Pain in right foot Pain in limb Peripheral arterial disease Peripheral vascular disease, unspecified Type 2 diabetes mellitus with peripheral neuropathy (HCC) Hyperlipidemia with target LDL less than 100 Other and unspecified hyperlipidemia Essential hypertension, benign Tobacco use Tobacco use disorder Gastroesophageal reflux disease, esophagitis presence not specified Class 1 obesity due to excess calories with serious comorbidity and body mass index (BMI) of 33.0 to 33.9 in adult Snoring Other dyspnea and respiratory abnormality Daytime somnolence Hypersomnia, unspecified [facility] Diagnosis Pre-operative examination- Primary Preoperative examination, unspecified Pain in right foot Pain in limb Peripheral arterial disease Peripheral vascular disease, unspecified Type 2 diabetes mellitus with peripheral neuropathy (HCC) Hyperlipidemia with target LDL less than 100 Other and unspecified hyperlipidemia Essential hypertension, benign Tobacco use Tobacco use disorder Gastroesophageal reflux disease, esophagitis presence not specified Class 1 obesity due to excess calories with serious comorbidity and body mass index (BMI) of 33.0 to 33.9 in adult Diabetic ulcer of toe associated with diabetes mellitus due to underlying condition, with fat layer exposed, unspecified laterality (HCC)- Primary PAD (peripheral artery disease) Peripheral vascular disease, unspecified Diabetic ulcer of toe associated with diabetes mellitus due to underlying condition, with fat layer exposed, unspecified laterality (HCC) documented in this encounter [facility] note* Diagnosis Pre-operative examination- Primary Preoperative examination, unspecified Pain in right foot Pain in limb Peripheral arterial disease Peripheral vascular disease, unspecified Type 2 diabetes mellitus with peripheral neuropathy (HCC) Hyperlipidemia with target LDL less than 100 Other and unspecified hyperlipidemia Essential hypertension, benign Tobacco use Tobacco use disorder Gastroesophageal reflux disease, esophagitis presence not specified Class 1 obesity due to excess calories with serious comorbidity and body mass index (BMI) of 33.0 to 33.9 in adult Diabetic ulcer of toe associated with diabetes mellitus due to underlying condition, with fat layer exposed, unspecified laterality (HCC) documented in this encounter [facility] for referral (narrative)* Outpatient Procedure (Routine) - Authorized Specialty Diagnoses / Procedures Referred By Kaitlyn t Referred To Contact [facility] Diagnoses Chronic cough Procedures SPIROMETRY - BASELINE AND POST DILATOR BRNCDILAT RSPSE SPMTRY PRE&POST-BRNCDILAT ADMN Podlogar, IRINEO Ventura.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 [address] [place] [address] Respiratory [place] [address] [facility] [place] [address] Referral ID Status Reason Start Date Expiration Date Visits Requested Visits Authorized [id number] Authorized Auto-Generat ed Referral 05/01/2022 05/31/2023 1 1 [facility] for referral (narrative)* Outpatient Procedure (Routine) - Closed Specialty Diagnoses / Procedures Referred By Contac t Referred To Contact [facility] Diagnoses Abnormal pulmonary function test Procedures LUNG VOLUMES PodlogAudrey kwan APRN.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 SPECIALIST [address] [place] [address] Respiratory [place] [address] [place] [address] Referral ID Status Reason Start Date Expiration Date V isits Requested Visits Authorized [id number] Closed Auto-Generate d Referral 05/05/2022 06/04/2023 1 1 [facility] for referral (narrative)* Outpatient Procedure (Routine) - Closed Specialty Diagnoses / Procedures Referred By Contac t Referred To Contact [facility] Diagnoses Irregular heart beat Procedures ECG COMPLETE ECG ROUTINE ECG W/LEAST 12 LDS W/I&R PodlogAudrey kwan APRN.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 SPECIALIST [address] [place] [address] Heart [facility] Vascular [place] [address] [place] [id number] Referral ID Status Reason Start Date Expiration Date V isits Requested Visits Authorized [id number] Closed Auto-Generate d Referral 05/24/2022 05/24/2023 1 1 [facility] for referral (narrative)* Outpatient Procedure (Urgent) - Closed Specialty Diagnoses / Procedures Referred By Contac t Referred To Contact [facility] Diagnoses Foot swelling Procedures US LEG VEIN DVT UNL VAS LAB DUP-SCAN XTR VEINS UNILATERAL/LIMITED STUDY Lita Abel APRN.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 SPECIALIST [address] [place] [address] [facility] Vascular [place] [address] [place] [address] Referral ID Status Reason Start Date Expiration Date V isits Requested Visits Authorized [id number] Closed Auto-Generate d Referral 10/18/2022 10/18/2023 1 1 * Diagnostic Procedure Only (Urgent) - Pending Review Specialty Diagnoses / Procedures Referred By Contac t Referred To Contact US IMAGING Diagnoses Foot swelling Procedures US DVT LOWER RIGHT DUP-SCAN XTR VEINS UNILATERAL/LIMITED STUDY Lita Abel APRN.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 SPECIALIST [address] [place] [address] [facility] Referral ID Status Reason Start Date Expiration Date Visits Requested Visits Authorized [id number] Pending Review Auto-Generat ed Referral 10/18/2022 11/17/2023 1 1 * Diagnostic Procedure Only (Urgent) - Closed Specialty Diagnoses / Procedures Referred By Contac t Referred To Contact XR IMAGING Diagnoses Foot pain, right Procedures XR FOOT GENERAL 3V AP/LAT/OBL RIGHT RADEX FOOT COMPLETE MINIMUM 3 VIEWS Lita Abel APRN.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 SPECIALIST [address] [place] [address] X[facility] Imaging Referral ID Status Reason Start Date Expiration Date V isits Requested Visits Authorized [id number] Closed Auto-Generate d Referral 10/18/2022 11/17/2023 1 1 [facility] for referral (narrative)* Diagnostic Procedure Only (Routine) - Closed Specialty Diagnoses / Procedures Referred By Contac t Referred To Contact XR IMAGING Diagnoses Charcot ankle, right Procedures XR FOOT GENERAL 3V AP/LAT/OBL BILATERAL RADEX FOOT COMPLETE MINIMUM 3 VIEWS Rao Hillman [address] [place] [address] X[facility] Imaging Referral ID Status Reason Start Date Expiration Date V isits Requested Visits Authorized [id number] Closed Auto-Generate d Referral 11/07/2022 12/07/2023 1 1 [facility] for referral (narrative)* Diagnostic Procedure Only (Routine) - Closed Specialty Diagnoses / Procedures Referred By Contac t Referred To Contact XR IMAGING Diagnoses Charcot ankle, right Procedures XR FOOT GENERAL 3V AP/LAT/OBL BILATERAL RADEX FOOT COMPLETE MINIMUM 3 VIEWS Rao Hillman [address] [place] [address] [place] [address] Referral ID Status Reason Start Date Expiration Date V isits Requested Visits Authorized [id number] Closed Auto-Generate d Referral 11/07/2022 12/07/2023 1 1 [facility] for referral (narrative)* Diagnostic Procedure Only (Urgent) - Closed Specialty Diagnoses / Procedures Referred By Contac t Referred To Contact XR IMAGING Diagnoses Foot pain, right Procedures XR FOOT GENERAL 3V AP/LAT/OBL RIGHT RADEX FOOT COMPLETE MINIMUM 3 VIEWS Lita Abel APRN.CNP [address] [place] [address] [place] [address] Referral ID Status Reason Start Date Expiration Date V isits Requested Visits Authorized [id number] Closed Auto-Generate d Referral 10/18/2022 11/17/2023 1 1 [facility] for referral (narrative)* Outpatient Procedure (Routine) - Pending Review Specialty Diagnoses / Procedures Referred By Contac t Referred To Contact [facility] Diagnoses Bigeminy PAC (premature atrial contraction) Bradycardia Abnormal EKG Procedures ECHO ECHO TTHRC R-T 2D W/WOM-MODE COMPL SPEC&COLR D Tobi Sorto MD [address] [place] [address] Heart And V[facility] [place] [address] [place] [address] Referral ID Status Reason Start Date Expiration Date Visits Requested Visits Authorized [id number] Pending Review Auto-Generat ed Referral 08/10/2023 08/09/2024 1 1 * Consult, Test, Treat (Routine) - Pending Review Specialty Diagnoses / Procedures Referred By Kaitlyn murguia Referred To Contact Cardiology Diagnoses Bigeminy PAC (premature atrial contraction) Bradycardia Procedures CONSULT TO CARDIOLOGY OFFICE/OUTPATIENT [facility] 60 MINUTES Tobi Sorto MD [address] [place] [address] Referral ID Status Reason Start Date Expiration Date Visits Requested Visits Authorized [id number] Pending Review PCP Requested Referral 08/10/2023 08/09/2024 1 1 * Outpatient Procedure (Routine) - Pending Review Specialty Diagnoses / Procedures Referred By Kaitlyn murguia Referred To Contact [facility] Diagnoses Irregular heartbeat Procedures ECG COMPLETE ECG ROUTINE ECG W/LEAST 12 LDS W/I&R Tobi Sorto MD [address] [place] [address] Heart And Vascular [address] [address] Referral ID Status Reason Start Date Expiration Date Visits Requested Visits Authorized [id number] Pending Review Auto-Generat ed Referral 08/10/2023 08/09/2024 1 1 [facility] for referral (narrative)* Outpatient Procedure (Routine) - Authorized Specialty Diagnoses / Procedures Referred By Kaitlyn murguia Referred To [facility] Diagnoses Persistent cough Procedures SPIROMETRY - BASELINE AND POST DILATOR BRNCDILAT RSPSE SPMTRY PRE&POST-BRNCDILAT ADMN Tobi Sorto MD [address] [place] [address] Respiratory [place] [address] [place] [address] Referral ID Status Reason Start Date Expiration Date Visits Requested Visits Authorized [id number] Authorized Auto-Generat ed Referral 08/17/2023 09/15/2024 1 1 [facility] for referral (narrative)* Outpatient Procedure (Routine) - Authorized Specialty Diagnoses / Procedures Referred By Contac t Referred To [facility] Diagnoses Restrictive lung disease Procedures LUNG VOLUMES Tobi Sorto MD [address] [place] [address] [address] Referral ID Status Reason Start Date Expiration Date Visits Requested Visits Authorized [id number] Authorized Auto-Generat ed Referral 08/28/2023 09/26/2024 1 1 [facility] for referral (narrative)* Outpatient Procedure (Routine) - Closed Specialty Diagnoses / Procedures [facility] Diagnoses Restrictive lung disease Persistent cough Procedures NITRIC OXIDE, EXHALED NITRIC OXIDE GAS DETERMINATION Tobi Sorto MD [address] [place] [address] [address] Referral ID Status Reason Start Date Expiration Date V isits Requested Visits Authorized [id number] Closed Auto-Generate d Referral 09/03/2023 10/02/2024 1 1 [facility] for referral (narrative)* Outpatient Procedure (Routine) - Authorized Specialty Diagnoses / Procedures Referred By Contac t Referred To [facility] Diagnoses Mild intermittent asthma without complication Procedures LUNG DIFFUSION CAPACITY (DLCO) DIFFUSING CAPACITY Alondra Broderick MD [address] [place] [address] [address] Referral ID Status Reason Start Date Expiration Date Visits Requested Visits Authorized [id number] Authorized Auto-Generat ed Referral 09/17/2023 10/16/2024 1 1 * Outpatient Procedure (Routine) - Authorized Specialty Diagnoses / Procedures Referred By Contac t Referred To Contact [facility] Diagnoses Mild intermittent asthma without complication Procedures LUNG VOLUMES Alondra Broderick MD [address] [place] [address] Respiratory [place] [address] [place] [address] Referral ID Status Reason Start Date Expiration Date Visits Requested Visits Authorized [id number] Authorized Auto-Generat ed Referral 09/17/2023 10/16/2024 1 1 [facility] for referral (narrative)* Diagnostic Procedure Only (Routine) - Closed Specialty Diagnoses / Procedures Referred By Contac t Referred To Contact XR IMAGING Diagnoses Pain in right lumbar region of back Right groin pain Procedures XR LUMBAR GENERAL 3V AP/LAT/L5-S1 RADEX SPINE LUMBOSACRAL 2/3 VIEWS ChucklogAudrey kwan APRN.CNP [address] [place] [address] [place] [address] Referral ID Status Reason Start Date Expiration Date V isits Requested Visits Authorized [id number] Closed Auto-Generate d Referral 08/15/2021 09/14/2022 1 1 [facility] for referral (narrative)* Outpatient Procedure (Routine) - Pending Review Specialty Diagnoses / Procedures Referred By Contac t Referred To Contact [facility] Diagnoses Peripheral arterial disease (HCC) Procedures PVR ANK/GRULLON/TOE LUIS VAS LAB NON-INVAS PHYSIOLOGIC STD EXTREMITY ART 2 LEVEL Rolando Jean MD [address] [place] [address] [facility] Vascular [address] [address] Referral ID Status Reason Start Date Expiration Date Visits Requested Visits Authorized [id number] Pending Review Auto-Generat ed Referral 01/09/2025 1 1 * Outpatient Procedure (Routine) - Pending Review Specialty Diagnoses / Procedures Referred By Contac t Referred To Contact [facility] Diagnoses Peripheral arterial disease (HCC) Procedures US LEG ARTERIAL PERIPH UNL VAS LAB DUP-SCAN LXTR ART/ARTL BPGS UNI/LMTD STUDY Rolando Jean MD [address] [place] [id number] [facility] [place] [address] Referral ID Status Reason Start Date Expiration Date Visits Requested Visits Authorized [id number] Pending Review Auto-Generat ed Referral 4 01/09/2025 1 1 [facility] for referral (narrative)* Diagnostic Procedure Only (Routine) - New Request Specialty Diagnoses / Procedures Referred By Contac t Referred To Contact [facility] Diagnoses Daytime somnolence Snoring Procedures HOME SLEEP APNEA TEST (HSAT) SLEEP STD AIRFLOW HRT RATE&O2 SAT EFFORT Audrey Angeles, POLICE STENOGRAPHER.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 SPECIALIST [address] [place] [address] [place] [address] Referral ID Status Reason Start Date Expiration Date Visits Requested Visits Authorized [id number] New Request Auto-Generat ed Referral 4 02/12/2025 1 1 [facility] for referral (narrative)* Diagnostic Procedure Only (Routine) - Closed Specialty Diagnoses / Procedures Referred By Contac t Referred To Contact XR IMAGING Diagnoses Chronic pain of right ankle Procedures XR ANKLE GENERAL 3V AP/LAT/OBL RIGHT RADEX ANKLE COMPLETE MINIMUM 3 VIEWS Rao Hillman [address] [address] [place] [address] Referral ID Status Reason Start Date Expiration Date V isits Requested Visits Authorized [id number] Closed Auto-Generate d Referral 03/10/2024 04/09/2025 1 1 [facility] for visit Narrative* Diagnostic Procedure Only (Routine) - Closed Specialty Diagnoses / Procedures Referred By Contac t Referred To Contact XR IMAGING Diagnoses Charcot ankle, right Procedures XR FOOT GENERAL 3V AP/LAT/OBL BILATERAL RADEX FOOT COMPLETE MINIMUM 3 VIEWS Rao Hillman [address] [place] [address] [place] [address] Referral ID Status Reason Start Date Expiration Date V isits Requested Visits Authorized [id number] Closed Auto-Generate d Referral 11/07/2022 12/07/2023 1 1 [facility] for visit Narrative* Diagnostic Procedure Only (Urgent) - Closed Specialty Diagnoses / Procedures Referred By Contac t Referred To Contact XR IMAGING Diagnoses Foot pain, right Procedures XR FOOT GENERAL 3V AP/LAT/OBL RIGHT RADEX FOOT COMPLETE MINIMUM 3 VIEWS Lita Abel, POLICE STENOGRAPHER.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 SPECIALIST [address] [place] [id number] [place] [address] Referral ID Status Reason Start Date Expiration Date V isits Requested Visits Authorized [id number] Closed Auto-Generate d Referral 10/18/2022 11/17/2023 1 1 [facility] for visit Narrative* Diagnostic Procedure Only (Routine) - Closed Specialty Diagnoses / Procedures Referred By Contac t Referred To Contact XR IMAGING Diagnoses Pain in right lumbar region of back Right groin pain Procedures XR LUMBAR GENERAL 3V AP/LAT/L5-S1 RADEX SPINE LUMBOSACRAL 2/3 VIEWS Audrey Packer, POLICE STENOGRAPHER.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 SPECIALIST [address] [place] [address] [place] [address] Referral ID Status Reason Start Date Expiration Date V isits Requested Visits Authorized [id number] Closed Auto-Generate d Referral 08/15/2021 09/14/2022 1 1 [facility] for visit Narrative* Diagnostic Procedure Only (Routine) - Closed Specialty Diagnoses / Procedures Referred By Contac t Referred To Contact XR IMAGING Diagnoses Chronic pain of right ankle Procedures XR ANKLE GENERAL 3V AP/LAT/OBL RIGHT RADEX ANKLE COMPLETE MINIMUM 3 VIEWS Rao Hillman [address] [address] Xr Imaging [facility] Referral ID Status Reason Start Date Expiration Date V isits Requested Visits Authorized [id number] Closed Auto-Generate d Referral 03/10/2024 04/09/2025 1 1 [facility] for visit Narrative* Diagnostic Procedure Only (Routine) - Closed Specialty Diagnoses / Procedures Referred By Contac t Referred To Contact XR IMAGING Diagnoses Diabetic ulcer of toe associated with diabetes mellitus due to underlying condition, with fat layer exposed, unspecified laterality (HCC) Procedures XR FOOT GENERAL 3V AP/LAT/OBL LEFT RADEX FOOT COMPLETE MINIMUM 3 VIEWS Rao Hillman [address] [place] [address] Phone: tel: fax: XR IMAGING [place] [address] Referral ID Status Reason Start Date Expiration Date V isits Requested Visits Authorized [id number] Closed Auto-Generate d Referral 09/11/2024 10/11/2025 1 1 [facility] for visit Narrative* Diagnostic Procedure Only (Urgent) - Closed Specialty Diagnoses / Procedures Referred By Contact Referred To [facility] Diagnoses Snoring Daytime somnolence Procedures HOME SLEEP APNEA TEST (HSAT) SLEEP STD AIRFLOW HRT RATE&O2 SAT EFFORT Tobi Orr MD [address] [place] [address] Phone: tel: fax: Neurology [address] [place] [address] Phone: tel: Referral ID Status Reason Start Date Expiration Date V isits Requested Visits Authorized [id number] Closed Auto-Generate d Referral 09/04/2024 04/01/2025 1 1 [facility] for visit Narrative* Diagnostic Procedure Only (Urgent) - Closed Specialty Diagnoses / Procedures Referred By Contac t Referred To Contact XR IMAGING Diagnoses Diabetic ulcer of toe associated with diabetes mellitus due to underlying condition, with fat layer exposed, unspecified laterality (HCC) Procedures XR TOE AP/LAT/OBL LEFT RADEX TOE MINIMUM 2 VIEWS Testrake, Rao [address] [place] [address] Phone: tel: fax: [place] [address] Referral ID Status Reason Start Date Expiration Date V isits Requested Visits Authorized [id number] Closed Auto-Generate d Referral 10/14/2024 11/13/2025 1 1 [facility] Summary Purpose Family History No Family History Records FoundNo Family History Records FoundNo Family History Records FoundNo Family History Records Found Advance Directives No Advanced Directives Records FoundDocuments on File Type Date Recorded 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 Advance Directive(s) 01/20/2019 9:18 AM Advance Directive(s) 01/02/2019 3:30 PM Advance Directive(s) 01/02/2019 3:36 PM Advance Directive(s) 09/12/2018 6:33 AM Advance Directive(s) 09/03/2018 9:53 AM Advance Directive(s) 05/08/2017 4:37 PM Advance Directive(s) 09/22/2016 11:14 AM Advance Directive(s) 09/15/2016 2:37 PM Advance Directive(s) 01/12/2016 1:40 PM Advance Directive(s) 12/21/2015 4:56 PM Advance Directive(s) 12/04/2015 2:35 PM Documents on File Type Date Recorded 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 Advance Directive(s) 01/20/2019 9:18 AM Advance Directive(s) 01/02/2019 3:30 PM Advance Directive(s) 01/02/2019 3:36 PM Advance Directive(s) 09/12/2018 6:33 AM Advance Directive(s) 09/03/2018 9:53 AM Advance Directive(s) 05/08/2017 4:37 PM Advance Directive(s) 09/22/2016 11:14 AM Advance Directive(s) 09/15/2016 2:37 PM Advance Directive(s) 01/12/2016 1:40 PM Advance Directive(s) 12/21/2015 4:56 PM Advance Directive(s) 12/04/2015 2:35 PM Reason for Referral Specialty Diagnoses / Procedures Referred By Contac t Referred To Contact [facility] Diagnoses Pain in right lumbar region of back Right groin pain Procedures CONSULT TO PHYSICAL THERAPY PHYSICAL THERAPY EVALUATION HIGH COMPLEX 45 MINS Podlogar, Audrey, POLICE STENOGRAPHER.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 SPECIALIST [address] [place] [address] [facility] [place] [address] [place] [address] Referral ID Status Reason Start Date Expiration Date Visits Requested Visits Authorized [id number] Authorized Auto-Generat ed Referral 08/22/2021 11/22/2021 1 1 Specialty Diagnoses / Procedures Referred By Contac t Referred To Contact XR IMAGING Diagnoses Pain in right lumbar region of back Right groin pain Procedures XR LUMBAR GENERAL 3V AP/LAT/L5-S1 RADEX SPINE LUMBOSACRAL 2/3 VIEWS Podlogar, Audrey, POLICE STENOGRAPHER.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 SPECIALIST [address] [place] [address] Xr Imaging Referral ID Status Reason Start Date Expiration Date V isits Requested Visits Authorized [id number] Closed Auto-Generate d Referral 08/15/2021 09/14/2022 1 1 Specialty Diagnoses / Procedures Referred By Contac t Referred To Contact CT IMAGING Diagnoses Chronic sinusitis, unspecified location Procedures CT SINUS WO IVCON CT MAXILLOFACIAL W/O CONTRAST MATERIAL Tobi Sorto MD [address] [place] [address] Ct Imaging Referral ID Status Reason Start Date Expiration Date Visits Requested Visits Authorized [id number] Pending Review Auto-Generat ed Referral 03/08/2022 04/07/2023 1 1 Specialty Diagnoses / Procedures Referred By Contac t Referred To Contact Ent - Otolaryngology Diagnoses Chronic sinusitis, unspecified location Procedures CONSULT TO ENT OFFICE/OUTPATIENT [facility] 60-74 MINUTES Tobi Sorto MD [address] [place] [address] Referral ID Status Reason Start Date Expiration Date Visits Requested Visits Authorized [id number] Authorized PCP Requested Referral 03/15/2023 1 1 Specialty Diagnoses / Procedures Referred By Contac t Referred To Contact CT IMAGING Diagnoses Thunderclap headache Procedures CTA HEAD WO/W IVCON CT ANGIOGRAPHY HEAD W/CONTRAST/NONCONTRAST Rao Frey MD [address] [address] [address] Imaging Referral ID Status Reason Start Date Expiration Date Visits Requested Visits Authorized [id number] Authorized Auto-Generat ed Referral 04/10/2022 05/10/2023 1 1 Specialty Diagnoses / Procedures Referred By Contac t Referred To Contact CT IMAGING Diagnoses Thunderclap headache Procedures CTA HEAD WO/W IVCON CT ANGIOGRAPHY HEAD W/CONTRAST/NONCONTRAST Rao Frey MD [address] [address] [place] [address] Referral ID Status Reason Start Date Expiration Date V isits Requested Visits Authorized [id number] Closed Auto-Generate d Referral 04/10/2022 05/10/2023 1 1 Specialty Diagnoses / Procedures Referred By Contac t Referred To Contact [facility]monary [facility] Diagnoses Restrictive lung disease Procedures CONSULT TO PULM/CRITICAL CARE OFFICE/OUTPATIENT [facility] 60 MINUTES Tobi Sorto MD [address] [place] [address] Referral ID Status Reason Start Date Expiration Date Visits Requested Visits Authorized [id number] Pending Review PCP Requested Referral 09/04/2023 09/03/2024 1 1 Health Concerns Infection Onset Date Last Indicated Resolved Time C. difficile 04/10/2022 04/10/2022 Infection Onset Date Last Indicated Resolved Time C. difficile 04/10/2022 04/10/2022 Additional Source Comments (unrecognized sect ion and content) No Status Records FoundNo Status Records FoundNo Status Records FoundNo Status Records Found INFORMATION SOURCE (unrecogn ized section and content) DATE CREATED AUTHOR 12/30/2018 [facility] DATE CREATED AUTHOR AUTHOR'S ORGANIZ ATION 09/03/2021 [facility] DATE CREATED AUTHOR AUTHOR'S ORGANIZ ATION 09/22/2023 [facility] DATE CREATED AUTHOR AUTHOR'S ORGANIZ ATION 10/17/2024 [facility] Source Comments (unrecognize d section and content) In the event this informatio n is protected by the Federal Confidentiality of Alcohol and Drug Abuse Patient Records regulations: The Federal rules restrict any use of the information to criminally investigate or prosecute any alcohol or drug abuse patient.[facility] the event this information is protected by the Federal Confidentiality of Alcohol and Drug Abuse Patient Records regulations: The Federal rules restrict any use of the information to criminally investigate or prosecute any alcohol or drug abuse patient.[facility] CenterIn the event this information is protected by the Federal Confidentiality of Alcohol and Drug Abuse Patient Records regulations: The Federal rules restrict any use of the information to criminally investigate or prosecute any alcohol or drug abuse patient.[facility] CenterIn the event this information is protected by the Federal Confidentiality of Alcohol and Drug Abuse Patient Records regulations: The Federal rules restrict any use of the information to criminally investigate or prosecute any alcohol or drug abuse patient.[facility] CenterIn the event this information is protected by the Federal Confidentiality of Alcohol and Drug Abuse Patient Records regulations: The Federal rules restrict any use of the information to criminally investigate or prosecute any alcohol or drug abuse patient.[facility] CenterIn the event this information is protected by the Federal Confidentiality of Alcohol and Drug Abuse Patient Records regulations: The Federal rules restrict any use of the information to criminally investigate or prosecute any alcohol or drug abuse patient.[facility] CenterIn the event this information is protected by the Federal Confidentiality of Alcohol and Drug Abuse Patient Records regulations: The Federal rules restrict any use of the information to criminally investigate or prosecute any alcohol or drug abuse patient.[facility] CenterIn the event this information is protected by the Federal Confidentiality of Alcohol and Drug Abuse Patient Records regulations: The Federal rules restrict any use of the information to criminally investigate or prosecute any alcohol or drug abuse patient.[facility] CenterIn the event this information is protected by the Federal Confidentiality of Alcohol and Drug Abuse Patient Records regulations: The Federal rules restrict any use of the information to criminally investigate or prosecute any alcohol or drug abuse patient.[facility] CenterIn the event this information is protected by the Federal Confidentiality of Alcohol and Drug Abuse Patient Records regulations: The Federal rules restrict any use of the information to criminally investigate or prosecute any alcohol or drug abuse patient.[facility] CenterIn the event this information is protected by the Federal Confidentiality of Alcohol and Drug Abuse Patient Records regulations: The Federal rules restrict any use of the information to criminally investigate or prosecute any alcohol or drug abuse patient.[facility] CenterIn the event this information is protected by the Federal Confidentiality of Alcohol and Drug Abuse Patient Records regulations: The Federal rules restrict any use of the information to criminally investigate or prosecute any alcohol or drug abuse patient.[facility] CenterIn the event this information is protected by the Federal Confidentiality of Alcohol and Drug Abuse Patient Records regulations: The Federal rules restrict any use of the information to criminally investigate or prosecute any alcohol or drug abuse patient.[facility] CenterIn the event this information is protected by the Federal Confidentiality of Alcohol and Drug Abuse Patient Records regulations: The Federal rules restrict any use of the information to criminally investigate or prosecute any alcohol or drug abuse patient.[facility] CenterIn the event this information is protected by the Federal Confidentiality of Alcohol and Drug Abuse Patient Records regulations: The Federal rules restrict any use of the information to criminally investigate or prosecute any alcohol or drug abuse patient.[facility] CenterIn the event this information is protected by the Federal Confidentiality of Alcohol and Drug Abuse Patient Records regulations: The Federal rules restrict any use of the information to criminally investigate or prosecute any alcohol or drug abuse patient.[facility] CenterIn the event this information is protected by the Federal Confidentiality of Alcohol and Drug Abuse Patient Records regulations: The Federal rules restrict any use of the information to criminally investigate or prosecute any alcohol or drug abuse patient.[facility] CenterIn the event this information is protected by the Federal Confidentiality of Alcohol and Drug Abuse Patient Records regulations: The Federal rules restrict any use of the information to criminally investigate or prosecute any alcohol or drug abuse patient.[facility] CenterIn the event this information is protected by the Federal Confidentiality of Alcohol and Drug Abuse Patient Records regulations: The Federal rules restrict any use of the information to criminally investigate or prosecute any alcohol or drug abuse patient.[facility] CenterIn the event this information is protected by the Federal Confidentiality of Alcohol and Drug Abuse Patient Records regulations: The Federal rules restrict any use of the information to criminally investigate or prosecute any alcohol or drug abuse patient.[facility] CenterIn the event this information is protected by the Federal Confidentiality of Alcohol and Drug Abuse Patient Records regulations: The Federal rules restrict any use of the information to criminally investigate or prosecute any alcohol or drug abuse patient.[facility] CenterIn the event this information is protected by the Federal Confidentiality of Alcohol and Drug Abuse Patient Records regulations: The Federal rules restrict any use of the information to criminally investigate or prosecute any alcohol or drug abuse patient.[facility] CenterIn the event this information is protected by the Federal Confidentiality of Alcohol and Drug Abuse Patient Records regulations: The Federal rules restrict any use of the information to criminally investigate or prosecute any alcohol or drug abuse patient.[facility] CenterIn the event this information is protected by the Federal Confidentiality of Alcohol and Drug Abuse Patient Records regulations: The Federal rules restrict any use of the information to criminally investigate or prosecute any alcohol or drug abuse patient.[facility] CenterIn the event this information is protected by the Federal Confidentiality of Alcohol and Drug Abuse Patient Records regulations: The Federal rules restrict any use of the information to criminally investigate or prosecute any alcohol or drug abuse patient.[facility] CenterIn the event this information is protected by the Federal Confidentiality of Alcohol and Drug Abuse Patient Records regulations: The Federal rules restrict any use of the information to criminally investigate or prosecute any alcohol or drug abuse patient.[facility] CenterIn the event this information is protected by the Federal Confidentiality of Alcohol and Drug Abuse Patient Records regulations: The Federal rules restrict any use of the information to criminally investigate or prosecute any alcohol or drug abuse patient.[facility]In the event this information is protected by the Federal Confidentiality of Alcohol and Drug Abuse Patient Records regulations: The Federal rules restrict any use of the information to criminally investigate or prosecute any alcohol or drug abuse patient.[facility] CenterIn the event this information is protected by the Federal Confidentiality of Alcohol and Drug Abuse Patient Records regulations: The Federal rules restrict any use of the information to criminally investigate or prosecute any alcohol or drug abuse patient.[facility] CenterIn the event this information is protected by the Federal Confidentiality of Alcohol and Drug Abuse Patient Records regulations: The Federal rules restrict any use of the information to criminally investigate or prosecute any alcohol or drug abuse patient.[facility] CenterIn the event this information is protected by the Federal Confidentiality of Alcohol and Drug Abuse Patient Records regulations: The Federal rules restrict any use of the information to criminally investigate or prosecute any alcohol or drug abuse patient.[facility] CenterIn the event this information is protected by the Federal Confidentiality of Alcohol and Drug Abuse Patient Records regulations: The Federal rules restrict any use of the information to criminally investigate or prosecute any alcohol or drug abuse patient.[facility] CenterIn the event this information is protected by the Federal Confidentiality of Alcohol and Drug Abuse Patient Records regulations: The Federal rules restrict any use of the information to criminally investigate or prosecute any alcohol or drug abuse patient.[facility] CenterIn the event this information is protected by the Federal Confidentiality of Alcohol and Drug Abuse Patient Records regulations: The Federal rules restrict any use of the information to criminally investigate or prosecute any alcohol or drug abuse patient.[facility] CenterIn the event this information is protected by the Federal Confidentiality of Alcohol and Drug Abuse Patient Records regulations: The Federal rules restrict any use of the information to criminally investigate or prosecute any alcohol or drug abuse patient.[facility] CenterIn the event this information is protected by the Federal Confidentiality of Alcohol and Drug Abuse Patient Records regulations: The Federal rules restrict any use of the information to criminally investigate or prosecute any alcohol or drug abuse patient.[facility] CenterIn the event this information is protected by the Federal Confidentiality of Alcohol and Drug Abuse Patient Records regulations: The Federal rules restrict any use of the information to criminally investigate or prosecute any alcohol or drug abuse patient.[facility] CenterIn the event this information is protected by the Federal Confidentiality of Alcohol and Drug Abuse Patient Records regulations: The Federal rules restrict any use of the information to criminally investigate or prosecute any alcohol or drug abuse patient.[facility] CenterIn the event this information is protected by the Federal Confidentiality of Alcohol and Drug Abuse Patient Records regulations: The Federal rules restrict any use of the information to criminally investigate or prosecute any alcohol or drug abuse patient.[facility] CenterIn the event this information is protected by the Federal Confidentiality of Alcohol and Drug Abuse Patient Records regulations: The Federal rules restrict any use of the information to criminally investigate or prosecute any alcohol or drug abuse patient.[facility] CenterIn the event this information is protected by the Federal Confidentiality of Alcohol and Drug Abuse Patient Records regulations: The Federal rules restrict any use of the information to criminally investigate or prosecute any alcohol or drug abuse patient.[facility] CenterIn the event this information is protected by the Federal Confidentiality of Alcohol and Drug Abuse Patient Records regulations: The Federal rules restrict any use of the information to criminally investigate or prosecute any alcohol or drug abuse patient.[facility] CenterIn the event this information is protected by the Federal Confidentiality of Alcohol and Drug Abuse Patient Records regulations: The Federal rules restrict any use of the information to criminally investigate or prosecute any alcohol or drug abuse patient.[facility] CenterIn the event this information is protected by the Federal Confidentiality of Alcohol and Drug Abuse Patient Records regulations: The Federal rules restrict any use of the information to criminally investigate or prosecute any alcohol or drug abuse patient.[facility] CenterIn the event this information is protected by the Federal Confidentiality of Alcohol and Drug Abuse Patient Records regulations: The Federal rules restrict any use of the information to criminally investigate or prosecute any alcohol or drug abuse patient.[facility] CenterIn the event this information is protected by the Federal Confidentiality of Alcohol and Drug Abuse Patient Records regulations: The Federal rules restrict any use of the information to criminally investigate or prosecute any alcohol or drug abuse patient.[facility] CenterIn the event this information is protected by the Federal Confidentiality of Alcohol and Drug Abuse Patient Records regulations: The Federal rules restrict any use of the information to criminally investigate or prosecute any alcohol or drug abuse patient.[facility] CenterIn the event this information is protected by the Federal Confidentiality of Alcohol and Drug Abuse Patient Records regulations: The Federal rules restrict any use of the information to criminally investigate or prosecute any alcohol or drug abuse patient.[facility] CenterIn the event this information is protected by the Federal Confidentiality of Alcohol and Drug Abuse Patient Records regulations: The Federal rules restrict any use of the information to criminally investigate or prosecute any alcohol or drug abuse patient.[facility] CenterIn the event this information is protected by the Federal Confidentiality of Alcohol and Drug Abuse Patient Records regulations: The Federal rules restrict any use of the information to criminally investigate or prosecute any alcohol or drug abuse patient.[facility] CenterIn the event this information is protected by the Federal Confidentiality of Alcohol and Drug Abuse Patient Records regulations: The Federal rules restrict any use of the information to criminally investigate or prosecute any alcohol or drug abuse patient.[facility] CenterIn the event this information is protected by the Federal Confidentiality of Alcohol and Drug Abuse Patient Records regulations: The Federal rules restrict any use of the information to criminally investigate or prosecute any alcohol or drug abuse patient.[facility] CenterIn the event this information is protected by the Federal Confidentiality of Alcohol and Drug Abuse Patient Records regulations: The Federal rules restrict any use of the information to criminally investigate or prosecute any alcohol or drug abuse patient.[facility] CenterIn the event this information is protected by the Federal Confidentiality of Alcohol and Drug Abuse Patient Records regulations: The Federal rules restrict any use of the information to criminally investigate or prosecute any alcohol or drug abuse patient.[facility] CenterIn the event this information is protected by the Federal Confidentiality of Alcohol and Drug Abuse Patient Records regulations: The Federal rules restrict any use of the information to criminally investigate or prosecute any alcohol or drug abuse patient.[facility] CenterIn the event this information is protected by the Federal Confidentiality of Alcohol and Drug Abuse Patient Records regulations: The Federal rules restrict any use of the information to criminally investigate or prosecute any alcohol or drug abuse patient.[facility] CenterIn the event this information is protected by the Federal Confidentiality of Alcohol and Drug Abuse Patient Records regulations: The Federal rules restrict any use of the information to criminally investigate or prosecute any alcohol or drug abuse patient.[facility] CenterIn the event this information is protected by the Federal Confidentiality of Alcohol and Drug Abuse Patient Records regulations: The Federal rules restrict any use of the information to criminally investigate or prosecute any alcohol or drug abuse patient.[facility] CenterIn the event this information is protected by the Federal Confidentiality of Alcohol and Drug Abuse Patient Records regulations: The Federal rules restrict any use of the information to criminally investigate or prosecute any alcohol or drug abuse patient.[facility] CenterIn the event this information is protected by the Federal Confidentiality of Alcohol and Drug Abuse Patient Records regulations: The Federal rules restrict any use of the information to criminally investigate or prosecute any alcohol or drug abuse patient.[facility] CenterIn the event this information is protected by the Federal Confidentiality of Alcohol and Drug Abuse Patient Records regulations: The Federal rules restrict any use of the information to criminally investigate or prosecute any alcohol or drug abuse patient.[facility] CenterIn the event this information is protected by the Federal Confidentiality of Alcohol and Drug Abuse Patient Records regulations: The Federal rules restrict any use of the information to criminally investigate or prosecute any alcohol or drug abuse patient.[facility] CenterIn the event this information is protected by the Federal Confidentiality of Alcohol and Drug Abuse Patient Records regulations: The Federal rules restrict any use of the information to criminally investigate or prosecute any alcohol or drug abuse patient.[facility] CenterIn the event this information is protected by the Federal Confidentiality of Alcohol and Drug Abuse Patient Records regulations: The Federal rules restrict any use of the information to criminally investigate or prosecute any alcohol or drug abuse patient.[facility] CenterIn the event this information is protected by the Federal Confidentiality of Alcohol and Drug Abuse Patient Records regulations: The Federal rules restrict any use of the information to criminally investigate or prosecute any alcohol or drug abuse patient.[facility] CenterIn the event this information is protected by the Federal Confidentiality of Alcohol and Drug Abuse Patient Records regulations: The Federal rules restrict any use of the information to criminally investigate or prosecute any alcohol or drug abuse patient.[facility] CenterIn the event this information is protected by the Federal Confidentiality of Alcohol and Drug Abuse Patient Records regulations: The Federal rules restrict any use of the information to criminally investigate or prosecute any alcohol or drug abuse patient.[facility] CenterIn the event this information is protected by the Federal Confidentiality of Alcohol and Drug Abuse Patient Records regulations: The Federal rules restrict any use of the information to criminally investigate or prosecute any alcohol or drug abuse patient.[facility] CenterIn the event this information is protected by the Federal Confidentiality of Alcohol and Drug Abuse Patient Records regulations: The Federal rules restrict any use of the information to criminally investigate or prosecute any alcohol or drug abuse patient.[facility] CenterIn the event this information is protected by the Federal Confidentiality of Alcohol and Drug Abuse Patient Records regulations: The Federal rules restrict any use of the information to criminally investigate or prosecute any alcohol or drug abuse patient.[facility] CenterIn the event this information is protected by the Federal Confidentiality of Alcohol and Drug Abuse Patient Records regulations: The Federal rules restrict any use of the information to criminally investigate or prosecute any alcohol or drug abuse patient.[facility] CenterIn the event this information is protected by the Federal Confidentiality of Alcohol and Drug Abuse Patient Records regulations: The Federal rules restrict any use of the information to criminally investigate or prosecute any alcohol or drug abuse patient.[facility] CenterIn the event this information is protected by the Federal Confidentiality of Alcohol and Drug Abuse Patient Records regulations: The Federal rules restrict any use of the information to criminally investigate or prosecute any alcohol or drug abuse patient.[facility] CenterIn the event this information is protected by the Federal Confidentiality of Alcohol and Drug Abuse Patient Records regulations: The Federal rules restrict any use of the information to criminally investigate or prosecute any alcohol or drug abuse patient.[facility] CenterIn the event this information is protected by the Federal Confidentiality of Alcohol and Drug Abuse Patient Records regulations: The Federal rules restrict any use of the information to criminally investigate or prosecute any alcohol or drug abuse patient.[facility] CenterIn the event this information is protected by the Federal Confidentiality of Alcohol and Drug Abuse Patient Records regulations: The Federal rules restrict any use of the information to criminally investigate or prosecute any alcohol or drug abuse patient.[facility] CenterIn the event this information is protected by the Federal Confidentiality of Alcohol and Drug Abuse Patient Records regulations: The Federal rules restrict any use of the information to criminally investigate or prosecute any alcohol or drug abuse patient.[facility]In the event this information is protected by the Federal Confidentiality of Alcohol and Drug Abuse Patient Records regulations: The Federal rules restrict any use of the information to criminally investigate or prosecute any alcohol or drug abuse patient.[facility] CenterIn the event this information is protected by the Federal Confidentiality of Alcohol and Drug Abuse Patient Records regulations: The Federal rules restrict any use of the information to criminally investigate or prosecute any alcohol or drug abuse patient.[facility] CenterIn the event this information is protected by the Federal Confidentiality of Alcohol and Drug Abuse Patient Records regulations: The Federal rules restrict any use of the information to criminally investigate or prosecute any alcohol or drug abuse patient.[facility] CenterIn the event this information is protected by the Federal Confidentiality of Alcohol and Drug Abuse Patient Records regulations: The Federal rules restrict any use of the information to criminally investigate or prosecute any alcohol or drug abuse patient.[facility] CenterIn the event this information is protected by the Federal Confidentiality of Alcohol and Drug Abuse Patient Records regulations: The Federal rules restrict any use of the information to criminally investigate or prosecute any alcohol or drug abuse patient.[facility] CenterIn the event this information is protected by the Federal Confidentiality of Alcohol and Drug Abuse Patient Records regulations: The Federal rules restrict any use of the information to criminally investigate or prosecute any alcohol or drug abuse patient.[facility] CenterIn the event this information is protected by the Federal Confidentiality of Alcohol and Drug Abuse Patient Records regulations: The Federal rules restrict any use of the information to criminally investigate or prosecute any alcohol or drug abuse patient.[facility] CenterIn the event this information is protected by the Federal Confidentiality of Alcohol and Drug Abuse Patient Records regulations: The Federal rules restrict any use of the information to criminally investigate or prosecute any alcohol or drug abuse patient.[facility] CenterIn the event this information is protected by the Federal Confidentiality of Alcohol and Drug Abuse Patient Records regulations: The Federal rules restrict any use of the information to criminally investigate or prosecute any alcohol or drug abuse patient.[facility] CenterIn the event this information is protected by the Federal Confidentiality of Alcohol and Drug Abuse Patient Records regulations: The Federal rules restrict any use of the information to criminally investigate or prosecute any alcohol or drug abuse patient.[facility] CenterIn the event this information is protected by the Federal Confidentiality of Alcohol and Drug Abuse Patient Records regulations: The Federal rules restrict any use of the information to criminally investigate or prosecute any alcohol or drug abuse patient.[facility] CenterIn the event this information is protected by the Federal Confidentiality of Alcohol and Drug Abuse Patient Records regulations: The Federal rules restrict any use of the information to criminally investigate or prosecute any alcohol or drug abuse patient.[facility] CenterIn the event this information is protected by the Federal Confidentiality of Alcohol and Drug Abuse Patient Records regulations: The Federal rules restrict any use of the information to criminally investigate or prosecute any alcohol or drug abuse patient.[facility] CenterIn the event this information is protected by the Federal Confidentiality of Alcohol and Drug Abuse Patient Records regulations: The Federal rules restrict any use of the information to criminally investigate or prosecute any alcohol or drug abuse patient.[facility] CenterIn the event this information is protected by the Federal Confidentiality of Alcohol and Drug Abuse Patient Records regulations: The Federal rules restrict any use of the information to criminally investigate or prosecute any alcohol or drug abuse patient.[facility] CenterIn the event this information is protected by the Federal Confidentiality of Alcohol and Drug Abuse Patient Records regulations: The Federal rules restrict any use of the information to criminally investigate or prosecute any alcohol or drug abuse patient.[facility] CenterIn the event this information is protected by the Federal Confidentiality of Alcohol and Drug Abuse Patient Records regulations: The Federal rules restrict any use of the information to criminally investigate or prosecute any alcohol or drug abuse patient.[facility]In the event this information is protected by the Federal Confidentiality of Alcohol and Drug Abuse Patient Records regulations: The Federal rules restrict any use of the information to criminally investigate or prosecute any alcohol or drug abuse patient.[facility]In the event this information is protected by the Federal Confidentiality of Alcohol and Drug Abuse Patient Records regulations: The Federal rules restrict any use of the information to criminally investigate or prosecute any alcohol or drug abuse patient.[facility]In the event this information is protected by the Federal Confidentiality of Alcohol and Drug Abuse Patient Records regulations: The Federal rules restrict any use of the information to criminally investigate or prosecute any alcohol or drug abuse patient.[facility]In the event this information is protected by the Federal Confidentiality of Alcohol and Drug Abuse Patient Records regulations: The Federal rules restrict any use of the information to criminally investigate or prosecute any alcohol or drug abuse patient.[facility]In the event this information is protected by the Federal Confidentiality of Alcohol and Drug Abuse Patient Records regulations: The Federal rules restrict any use of the information to criminally investigate or prosecute any alcohol or drug abuse patient.[facility]In the event this information is protected by the Federal Confidentiality of Alcohol and Drug Abuse Patient Records regulations: The Federal rules restrict any use of the information to criminally investigate or prosecute any alcohol or drug abuse patient.[facility]In the event this information is protected by the Federal Confidentiality of Alcohol and Drug Abuse Patient Records regulations: The Federal rules restrict any use of the information to criminally investigate or prosecute any alcohol or drug abuse patient.[facility]In the event this information is protected by the Federal Confidentiality of Alcohol and Drug Abuse Patient Records regulations: The Federal rules restrict any use of the information to criminally investigate or prosecute any alcohol or drug abuse patient.[facility]In the event this information is protected by the Federal Confidentiality of Alcohol and Drug Abuse Patient Records regulations: The Federal rules restrict any use of the information to criminally investigate or prosecute any alcohol or drug abuse patient.[facility]In the event this information is protected by the Federal Confidentiality of Alcohol and Drug Abuse Patient Records regulations: The Federal rules restrict any use of the information to criminally investigate or prosecute any alcohol or drug abuse patient.[facility]In the event this information is protected by the Federal Confidentiality of Alcohol and Drug Abuse Patient Records regulations: The Federal rules restrict any use of the information to criminally investigate or prosecute any alcohol or drug abuse patient.[facility]In the event this information is protected by the Federal Confidentiality of Alcohol and Drug Abuse Patient Records regulations: The Federal rules restrict any use of the information to criminally investigate or prosecute any alcohol or drug abuse patient.[facility]In the event this information is protected by the Federal Confidentiality of Alcohol and Drug Abuse Patient Records regulations: The Federal rules restrict any use of the information to criminally investigate or prosecute any alcohol or drug abuse patient.[facility]In the event this information is protected by the Federal Confidentiality of Alcohol and Drug Abuse Patient Records regulations: The Federal rules restrict any use of the information to criminally investigate or prosecute any alcohol or drug abuse patient.[facility]In the event this information is protected by the Federal Confidentiality of Alcohol and Drug Abuse Patient Records regulations: The Federal rules restrict any use of the information to criminally investigate or prosecute any alcohol or drug abuse patient.[facility]In the event this information is protected by the Federal Confidentiality of Alcohol and Drug Abuse Patient Records regulations: The Federal rules restrict any use of the information to criminally investigate or prosecute any alcohol or drug abuse patient.[facility]In the event this information is protected by the Federal Confidentiality of Alcohol and Drug Abuse Patient Records regulations: The Federal rules restrict any use of the information to criminally investigate or prosecute any alcohol or drug abuse patient.[facility]In the event this information is protected by the Federal Confidentiality of Alcohol and Drug Abuse Patient Records regulations: The Federal rules restrict any use of the information to criminally investigate or prosecute any alcohol or drug abuse patient.[facility]In the event this information is protected by the Federal Confidentiality of Alcohol and Drug Abuse Patient Records regulations: The Federal rules restrict any use of the information to criminally investigate or prosecute any alcohol or drug abuse patient.[facility]In the event this information is protected by the Federal Confidentiality of Alcohol and Drug Abuse Patient Records regulations: The Federal rules restrict any use of the information to criminally investigate or prosecute any alcohol or drug abuse patient.[facility]In the event this information is protected by the Federal Confidentiality of Alcohol and Drug Abuse Patient Records regulations: The Federal rules restrict any use of the information to criminally investigate or prosecute any alcohol or drug abuse patient.[facility]In the event this information is protected by the Federal Confidentiality of Alcohol and Drug Abuse Patient Records regulations: The Federal rules restrict any use of the information to criminally investigate or prosecute any alcohol or drug abuse patient.[facility]In the event this information is protected by the Federal Confidentiality of Alcohol and Drug Abuse Patient Records regulations: The Federal rules restrict any use of the information to criminally investigate or prosecute any alcohol or drug abuse patient.[facility]In the event this information is protected by the Federal Confidentiality of Alcohol and Drug Abuse Patient Records regulations: The Federal rules restrict any use of the information to criminally investigate or prosecute any alcohol or drug abuse patient.[facility]In the event this information is protected by the Federal Confidentiality of Alcohol and Drug Abuse Patient Records regulations: The Federal rules restrict any use of the information to criminally investigate or prosecute any alcohol or drug abuse patient.[facility]In the event this information is protected by the Federal Confidentiality of Alcohol and Drug Abuse Patient Records regulations: The Federal rules restrict any use of the information to criminally investigate or prosecute any alcohol or drug abuse patient.[facility]In the event this information is protected by the Federal Confidentiality of Alcohol and Drug Abuse Patient Records regulations: The Federal rules restrict any use of the information to criminally investigate or prosecute any alcohol or drug abuse patient.[facility]In the event this information is protected by the Federal Confidentiality of Alcohol and Drug Abuse Patient Records regulations: The Federal rules restrict any use of the information to criminally investigate or prosecute any alcohol or drug abuse patient.[facility]In the event this information is protected by the Federal Confidentiality of Alcohol and Drug Abuse Patient Records regulations: The Federal rules restrict any use of the information to criminally investigate or prosecute any alcohol or drug abuse patient.[facility]In the event this information is protected by the Federal Confidentiality of Alcohol and Drug Abuse Patient Records regulations: The Federal rules restrict any use of the information to criminally investigate or prosecute any alcohol or drug abuse patient.[facility]In the event this information is protected by the Federal Confidentiality of Alcohol and Drug Abuse Patient Records regulations: The Federal rules restrict any use of the information to criminally investigate or prosecute any alcohol or drug abuse patient.[facility]In the event this information is protected by the Federal Confidentiality of Alcohol and Drug Abuse Patient Records regulations: The Federal rules restrict any use of the information to criminally investigate or prosecute any alcohol or drug abuse patient.[facility]In the event this information is protected by the Federal Confidentiality of Alcohol and Drug Abuse Patient Records regulations: The Federal rules restrict any use of the information to criminally investigate or prosecute any alcohol or drug abuse patient.[facility]In the event this information is protected by the Federal Confidentiality of Alcohol and Drug Abuse Patient Records regulations: The Federal rules restrict any use of the information to criminally investigate or prosecute any alcohol or drug abuse patient.[facility]In the event this information is protected by the Federal Confidentiality of Alcohol and Drug Abuse Patient Records regulations: The Federal rules restrict any use of the information to criminally investigate or prosecute any alcohol or drug abuse patient.[facility]In the event this information is protected by the Federal Confidentiality of Alcohol and Drug Abuse Patient Records regulations: The Federal rules restrict any use of the information to criminally investigate or prosecute any alcohol or drug abuse patient.[facility]In the event this information is protected by the Federal Confidentiality of Alcohol and Drug Abuse Patient Records regulations: The Federal rules restrict any use of the information to criminally investigate or prosecute any alcohol or drug abuse patient.[facility]In the event this information is protected by the Federal Confidentiality of Alcohol and Drug Abuse Patient Records regulations: The Federal rules restrict any use of the information to criminally investigate or prosecute any alcohol or drug abuse patient.[facility]In the event this information is protected by the Federal Confidentiality of Alcohol and Drug Abuse Patient Records regulations: The Federal rules restrict any use of the information to criminally investigate or prosecute any alcohol or drug abuse patient.[facility]In the event this information is protected by the Federal Confidentiality of Alcohol and Drug Abuse Patient Records regulations: The Federal rules restrict any use of the information to criminally investigate or prosecute any alcohol or drug abuse patient.[facility]In the event this information is protected by the Federal Confidentiality of Alcohol and Drug Abuse Patient Records regulations: The Federal rules restrict any use of the information to criminally investigate or prosecute any alcohol or drug abuse patient.[facility]In the event this information is protected by the Federal Confidentiality of Alcohol and Drug Abuse Patient Records regulations: The Federal rules restrict any use of the information to criminally investigate or prosecute any alcohol or drug abuse patient.[facility]In the event this information is protected by the Federal Confidentiality of Alcohol and Drug Abuse Patient Records regulations: The Federal rules restrict any use of the information to criminally investigate or prosecute any alcohol or drug abuse patient.[facility]In the event this information is protected by the Federal Confidentiality of Alcohol and Drug Abuse Patient Records regulations: The Federal rules restrict any use of the information to criminally investigate or prosecute any alcohol or drug abuse patient.[facility]In the event this information is protected by the Federal Confidentiality of Alcohol and Drug Abuse Patient Records regulations: The Federal rules restrict any use of the information to criminally investigate or prosecute any alcohol or drug abuse patient.[facility]In the event this information is protected by the Federal Confidentiality of Alcohol and Drug Abuse Patient Records regulations: The Federal rules restrict any use of the information to criminally investigate or prosecute any alcohol or drug abuse patient.[facility]In the event this information is protected by the Federal Confidentiality of Alcohol and Drug Abuse Patient Records regulations: The Federal rules restrict any use of the information to criminally investigate or prosecute any alcohol or drug abuse patient.[facility]In the event this information is protected by the Federal Confidentiality of Alcohol and Drug Abuse Patient Records regulations: The Federal rules restrict any use of the information to criminally investigate or prosecute any alcohol or drug abuse patient.[facility]In the event this information is protected by the Federal Confidentiality of Alcohol and Drug Abuse Patient Records regulations: The Federal rules restrict any use of the information to criminally investigate or prosecute any alcohol or drug abuse patient.[facility]In the event this information is protected by the Federal Confidentiality of Alcohol and Drug Abuse Patient Records regulations: The Federal rules restrict any use of the information to criminally investigate or prosecute any alcohol or drug abuse patient.[facility]In the event this information is protected by the Federal Confidentiality of Alcohol and Drug Abuse Patient Records regulations: The Federal rules restrict any use of the information to criminally investigate or prosecute any alcohol or drug abuse patient.[facility]In the event this information is protected by the Federal Confidentiality of Alcohol and Drug Abuse Patient Records regulations: The Federal rules restrict any use of the information to criminally investigate or prosecute any alcohol or drug abuse patient.[facility]In the event this information is protected by the Federal Confidentiality of Alcohol and Drug Abuse Patient Records regulations: The Federal rules restrict any use of the information to criminally investigate or prosecute any alcohol or drug abuse patient.[facility] CenterIn the event this information is protected by the Federal Confidentiality of Alcohol and Drug Abuse Patient Records regulations: The Federal rules restrict any use of the information to criminally investigate or prosecute any alcohol or drug abuse patient.[facility] Center[facility] the event this information is protected by the Federal Confidentiality of Alcohol and Drug Abuse Patient Records regulations: The Federal rules restrict any use of the information to criminally investigate or prosecute any alcohol or drug abuse patient.[facility] CenterIn the event this information is protected by the Federal Confidentiality of Alcohol and Drug Abuse Patient Records regulations: The Federal rules restrict any use of the information to criminally investigate or prosecute any alcohol or drug abuse patient.[facility] Reason for Visit (unrecogniz ed section and content) Reason Comments Established Patient Follow Up Callous Hammer Toe Specialty Diagnoses / Procedures Referred By Kaitlyn t Referred To Contact Podiatry / PODIATRY Diagnoses Ulcer of toe of left foot, limited to breakdown of skin (HCC) 2 week follow up Procedures OFFICE/OUTPATIENT ESTABLISHED HIGH MDM 40 MIN OFFICE/OUTPATIENT ESTABLISHED MOD MDM 30 MIN OFFICE/OUTPATIENT ESTABLISHED LOW MDM 20 MIN OFFICE/OUTPATIENT ESTABLISHED SF MDM 10 MIN WOODY EST PODI DIAB Rao Hillman [address] [address] WilianRika mendezew [address] [place] [address] Referral ID Status Reason Start Date Expiration Date Visits Re quested Visits Authorized [id number] Closed 05/24/2023 04/01/2024 2 2 Reason Comments LESION, SKIN Reason Comments F/U 3 Month Pain right leg pain Reason Comments Other Worsening A1C, addin g medication Reason Comments Established Patient Diabetic Foot Care Reason Comments Back Pain Reason Comments ED Follow-up [facility] 08/09 for right l ower back pain Reason Onset Date Comments Population Health Navigation Outreach 10/13/2021 [employer] Care Gaps Reason Onset Date Comments Refill Request 10/14/2021 Reason Comments Medication Question Reason Comments Results Reason Comments prescription assistance Reason Comments Medication Problem Reason Comments Established Patient Follow Up nail care Reason Comments Cough Head Congestion Reason Comments Sinusitis Reason Onset Date Comments Refill Request 03/03/2022 Reason Comments Patient Update Reason Onset Date Comments Refill Request 03/09/2022 Reason Comments Peer to Peer to be done Reason Comments Diarrhea Reason Comments Sore Throat Weak, diarrhea Reason Comments Sinus Problem Pressure left side o f face and head whenever he coughs for 1 month. Pressure. Treated with ATB without relief. Denies colored drainage. Specialty Diagnoses / Procedures Referred By Kaitlyn murguia Referred To Contact Ent - Otolaryngology Diagnoses Chronic sinusitis, unspecified location Procedures CONSULT TO ENT OFFICE/OUTPATIENT NEW HIGH MDM 60-74 MINUTES Tobi Sorto MD [address] [place] [address] Referral ID Status Reason Start Date Expiration Date V isits Requested Visits Authorized [id number] Closed PCP Requested Referral 03/15/2022 03/15/2023 1 1 Reason Comments Patient Question Reason Comments Refill Request Reason Comments Diarrhea X3 months 3-4 times a day; incontinence at night time Cough X3 months; recently had chest xray at ENT Reason Comments Spirometry Specialty Diagnoses / Procedures Referred By Contac t Referred To [facility] Diagnoses Chronic cough Procedures SPIROMETRY - BASELINE AND POST DILATOR BRNCDILAT RSPSE SPMTRY PRE&POST-BRNCDILAT ADMN Podlogar, Audrey, POLICE STENOGRAPHER.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 SPECIALIST [address] [place] [address] [facility] [place] [address] [place] [id number] Referral ID Status Reason Start Date Expiration Date V isits Requested Visits Authorized [id number] Closed Auto-Generate d Referral 05/01/2022 05/31/2023 1 1 Specialty Diagnoses / Procedures Referred By Contac t Referred To Contact [facility] Diagnoses Abnormal pulmonary function test Procedures LUNG VOLUMES Podlogar, Audrey, POLICE STENOGRAPHER.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 SPECIALIST [address] [place] [address] [facility] [place] [address] [place] [address] Referral ID Status Reason Start Date Expiration Date V isits Requested Visits Authorized [id number] Closed Auto-Generate d Referral 05/05/2022 06/04/2023 1 1 Reason Comments Results Reason Comments F/U 1 month Reason Onset Date Comments Refill Request 06/01/2022 Reason Comments Established Patient Follow Up Diabetic Foot Care Callous Reason Onset Date Comments Refill Request 07/12/2022 Reason Onset Date Comments Population Health Navigation Outreach 07/20/2022 [employer] care gap Reason Onset Date Comments Refill Request 09/18/2022 Reason Comments Acute Visit R foot pain x5 days; some swelling/redness; sudden onset, no injury Reason Comments Pain Established Patient Reason Onset Date Comments Refill Request 11/07/2022 Reason Comments Patient Question Orders Reason Comments Cough X 3 weeks and diffic ulty getting sleep Reason Comments Established Patient Follow Up Pain Reason Comments F/U 6 months Reason Comments Radiology CT Specialty Diagnoses / Procedures Referred By Contac t Referred To Contact CT IMAGING Diagnoses Thunderclap headache Procedures CTA HEAD WO/W IVCON CT ANGIOGRAPHY HEAD W/CONTRAST/NONCONTRAST Rao Frey MD [address] [address] [address] [facility] Referral ID Status Reason Start Date Expiration Date V isits Requested Visits Authorized [id number] Closed Auto-Generate d Referral 04/10/2022 05/10/2023 1 1 Reason Onset Date Comments Refill Request 02/26/2023 Reason Comments Med Change Request Reason Comments Established Patient Follow Up Diabetic Foot Ulcer Pain Specialty Diagnoses / Procedures Referred By Contac t Referred To Contact Podiatry / PODIATRY Diagnoses AETNA MEDICARE / A[employer] MEDICARE HMO Procedures WOODY EST PODI Rao Hillman [address] [place] [address] Rao Hillman [address] [place] [address] Referral ID Status Reason Start Date Expiration Date Visits Re quested Visits Authorized [id number] Closed 05/10/2023 04/01/2024 1 1 Reason Onset Date Comments Refill Request 04/09/2023 see rx notes Reason Comments Sinus Problem Nasal congestion and cough x2 weeks Reason Comments 6 mo follow up Reason Comments Follow Up Established Patient Callous Referral ID Status Reason Start Date Expiration Date Visits Re quested Visits Authorized [id number] Closed 05/24/2023 04/01/2024 1 1 Reason Onset Date Comments Refill Request 08/06/2023 Reason Comments Cough Cough lingering and keeps patient up at HS Reason Onset Date Comments Refill Request 08/13/2023 Specialty Diagnoses / Procedures Referred By Contac t Referred To Contact [facility] Diagnoses Persistent cough Procedures SPIROMETRY - BASELINE AND POST DILATOR BRNCDILAT RSPSE SPMTRY PRE&POST-BRNCDILAT Tobi Diaz MD [address] [place] [address] [facility] [place] [address] [place] [address] Referral ID Status Reason Start Date Expiration Date V isits Requested Visits Authorized [id number] Closed Auto-Generate d Referral 08/17/2023 09/15/2024 1 1 Specialty Diagnoses / Procedures Referred By Contac t Referred To Contact [facility] Diagnoses Restrictive lung disease Persistent cough Procedures NITRIC OXIDE, EXHALED NITRIC OXIDE GAS DETERMINATION Tobi Sorto MD [address] [place] [address] [facility] [place] [address] [place] [address] Referral ID Status Reason Start Date Expiration Date V isits Requested Visits Authorized [id number] Closed Auto-Generate d Referral 09/03/2023 10/02/2024 1 1 Reason Comments Orders Reason Onset Date Comments Refill Request 09/04/2023 Reason Comments requesting medicatiion that is Reason Onset Date Comments Refill Request 09/10/2023 Reason Comments Consult New patient-Restrict shaan Lung Disease Specialty Diagnoses / Procedures Referred By Contac t Referred To Contact Pulmonary and Critical Care Medicine / FAMILY MEDICINE Diagnoses Restrictive lung disease Procedures CONSULT TO PULM/CRITICAL CARE OFFICE/OUTPATIENT NEW HIGH MDM 60 MINUTES Tobi Sorto MD [address] [place] [address] [facility] [address] [place] [address] Referral ID Status Reason Start Date Expiration Date V isits Requested Visits Authorized [id number] Closed PCP Requested Referral 09/10/2023 04/01/2024 1 1 Reason Onset Date Comments Refill Request 11/27/2023 Reason Comments Established Patient Follow Up Callous Hammer Toe Pain Reason Comments Musculoskeletal Problem Each night when going to bed his legs are jumping No taste X 8 months Reason Comments Appointment Reason Onset Date Comments Refill Request 01/21/2024 Reason Onset Date Comments Refill Request 01/28/2024 Reason Comments Consult Reason Onset Date Comments Refill Request 02/20/2024 Reason Onset Date Comments Refill Request 02/26/2024 Reason Comments Follow Up Restless legs contin ue Reason Comments Established Patient Follow Up Diabetic Foot Care Reason Onset Date Comments Refill Request 03/25/2024 Reason Comments Patient Update Reason Comments restless leg Patient reports medi cation adjustment still having issues muscle spasms Reason Onset Date Comments Refill Request 04/25/2024 Reason Onset Date Comments Refill Request 04/28/2024 Reason Onset Date Comments Refill Request 05/13/2024 Reason Onset Date Comments Refill Request 06/03/2024 Reason Comments Established Patient Follow Up Diabetic Foot Care Reason Onset Date Comments Results 06/30/2024 Reason Comments Follow Up 6 month routine Reason Onset Date Comments Results 07/09/2024 Reason Comments Medication Problem Med refill. Reason Comments Radiology US Specialty Diagnoses / Procedures Referred By Contac t Referred To Contact [facility] Diagnoses Stage 3a chronic kidney disease (HCC) Procedures US KIDNEY/BLADDER US RETROPERITONEAL REAL TIME W/IMAGE COMPLETE Tobi Sorto MD [address] [place] [address] Phone: tel: fax: [place] [phone] Referral ID Status Reason Start Date Expiration Date V isits Requested Visits Authorized [id number] Closed Auto-Generate d Referral 07/09/2024 08/08/2025 1 1 Reason Onset Date Comments Results 07/16/2024 US of kidneys Reason Comments Foot Swelling Reason Comments Edema Bilateral lower extr emity edema x2 days Reason Onset Date Comments Refill Request 08/14/2024 Reason Onset Date Comments Refill Request 08/18/2024 Reason Onset Date Comments Refill Request 08/27/2024 Reason Comments Derm Problem Area to bottom of ch in, lip is swollen. X2 days. Reason Comments Follow Up Facial Cellulitis, p atient states symptoms improving with the antibiotic Reason Onset Date Comments Refill Request 09/14/2024 Reason Comments Established Patient Follow Up Diabetic Foot Care Diabetic Foot Ulcer Numbness Reason Comments Established Patient Follow Up Diabetic Foot Ulcer Reason Onset Date Comments Refill Request 09/22/2024 Reason Onset Date Comments Refill Request 10/13/2024 Reason Comments Established Patient Follow Up Diabetic Foot Ulcer Pain Care Teams (unrecognized sec tion and content) Cafe Cook Relationship Specialty Start Date End Date Tobi Sorto MD [address] [place] [address] PCP - General Family Practice 08/22/18 Cafe Cook Relationship Specialty Start Date End Date Tobi Sorto MD [address] [place] [address] PCP - General Family Practice 08/22/18 Cafe Cook Relationship Specialty Start Date End Date Tobi Sorto MD [address] [place] [address] PCP - General Family Practice 08/22/18 Cafe Cook Relationship Specialty Start Date End Date Tobi Sorto MD [address] [place] [address] PCP - General Family Practice 08/22/18 Cafe Cook Relationship Specialty Start Date End Date Tobi Sorto MD [address] [place] [address] PCP - General Family Practice 08/22/18 Cafe Cook Relationship Specialty Start Date End Date Tobi Sorto MD [address] [place] [address] PCP - General Family Practice 08/22/18 Cafe Cook Relationship Specialty Start Date End Date Tobi Sorto MD [address] [place] [address] PCP - General Family Medicine 08/22/18 Cafe Cook Relationship Specialty Start Date End Date Tobi Sorto MD [address] [place] [address] PCP - General Family Medicine 08/22/18 Cafe Cook Relationship Specialty Start Date End Date Tobi Sorto MD [address] [place] [address] PCP - General Family Medicine 08/22/18 Cafe Cook Relationship Specialty Start Date End Date Tobi Sorto MD [address] [place] [address] PCP - General Family Medicine 08/22/18 Cafe Cook Relationship Specialty Start Date End Date Tobi Sorto MD [address] [place] [address] PCP - General Family Medicine 08/22/18 Cafe Cook Relationship Specialty Start Date End Date Tobi Sorto MD [address] [place] [address] PCP - General Family Medicine 08/22/18 Cafe Cook Relationship Specialty Start Date End Date Tobi Sorto MD [address] [place] [address] PCP - General Family Medicine 08/22/18 Cafe Cook Relationship Specialty Start Date End Date Tobi Sorto MD [address] [place] [address], [place] [address] PCP - General Family Medicine 08/22/18 Cafe Cook Relationship Specialty Start Date End Date Tobi Sorto MD [facility] [place] [address] PCP - General Family Medicine 08/22/18 Cafe Cook Relationship Specialty Start Date End Date Tobi Sorto MD [facility] [place] [address] PCP - General Family Medicine 08/22/18 Cafe Cook Relationship Specialty Start Date End Date Tobi Sorto MD [address] [place] [address] PCP - General Family Medicine 08/22/18 Cafe Cook Relationship Specialty Start Date End Date Tobi Sorto MD [address] [place] [address] PCP - General Family Medicine 08/22/18 Cafe Cook Relationship Specialty Start Date End Date Tobi Sorto MD [facility] [place] [address] PCP - General Family Medicine 08/22/18 Cafe Cook Relationship Specialty Start Date End Date Tobi Sorto MD [address] [place] [address] PCP - General Family Medicine 08/22/18 Cafe Cook Relationship Specialty Start Date End Date Tobi Sorto MD [address] [place] [address] PCP - General Family Medicine 08/22/18 Cafe Cook Relationship Specialty Start Date End Date Tobi Sorto MD [address] [place] [address] PCP - General Family Medicine 08/22/18 Cafe Cook Relationship Specialty Start Date End Date Tobi Sorto MD [address] [place] [address] PCP - General Family Medicine 08/22/18 Cafe Cook Relationship Specialty Start Date End Date Tobi Sorto MD [address] [place] [address] PCP - General Family Medicine 08/22/18 Cafe Cook Relationship Specialty Start Date End Date Tobi Sorto MD [address] [place] [address] PCP - General Family Medicine 08/22/18 Cafe Cook Relationship Specialty Start Date End Date Tobi Sorto MD [address] [place] [address] PCP - General Family Medicine 08/22/18 Cafe Cook Relationship Specialty Start Date End Date Tobi Sorto MD [address] [place] [address] PCP - General Family Medicine 08/22/18 Cafe Cook Relationship Specialty Start Date End Date Tobi Sorto MD [address] [place] [address] PCP - General Family Medicine 08/22/18 Cafe Cook Relationship Specialty Start Date End Date Tobi Sorto MD [address] [place] [address] PCP - General Family Medicine 08/22/18 Cafe Cook Relationship Specialty Start Date End Date Tobi Sorto MD [address] [place] [address] PCP - General Family Medicine 08/22/18 Cafe Cook Relationship Specialty Start Date End Date Tobi Sorto MD [address] [place] [address] PCP - General Family Medicine 08/22/18 Cafe Cook Relationship Specialty Start Date End Date Tobi Sorto MD [address] [place] [address] PCP - General Family Medicine 08/22/18 Cafe Cook Relationship Specialty Start Date End Date Tobi Sorto MD [address] [place] [address] PCP - General Family Medicine 08/22/18 Cafe Cook Relationship Specialty Start Date End Date Tobi Sorto MD [address] [place] [address] PCP - General Family Medicine 08/22/18 Cafe Cook Relationship Specialty Start Date End Date Tobi Sorto MD [address] [place] [address] PCP - General Family Medicine 08/22/18 Cafe Cook Relationship Specialty Start Date End Date Tobi Sorto MD [address] [place] [address] PCP - General Family Medicine 08/22/18 Cafe Cook Relationship Specialty Start Date End Date Tobi Sorto MD [address] [place] [address] PCP - General Family Medicine 08/22/18 Cafe Cook Relationship Specialty Start Date End Date Tobi Sorto MD [address] [place] [address] PCP - General Family Medicine 08/22/18 Cafe Cook Relationship Specialty Start Date End Date Tobi Sorto MD [address] [place] [address] PCP - General Family Medicine 08/22/18 Cafe Cook Relationship Specialty Start Date End Date Tobi Sorto MD [address] [place] [address] PCP - General Family Medicine 08/22/18 Cafe Cook Relationship Specialty Start Date End Date Tobi Sorto MD [address] [place] [address] PCP - General Family Medicine 08/22/18 Cafe Cook Relationship Specialty Start Date End Date Tobi Sorto MD [address] [place] [address] PCP - General Family Medicine 08/22/18 Cafe Cook Relationship Specialty Start Date End Date Tobi Sorto MD [address] [place] [address] PCP - General Family Medicine 08/22/18 Cafe Cook Relationship Specialty Start Date End Date Tobi Sorto MD [address] [place] [address] PCP - General Family Medicine 08/22/18 Cafe Cook Relationship Specialty Start Date End Date Tobi Sorto MD [address] [place] [address] PCP - General Family Medicine 08/22/18 Cafe Cook Relationship Specialty Start Date End Date Tobi Sorto MD [address] [place] [address] PCP - General Family Medicine 08/22/18 Cafe Cook Relationship Specialty Start Date End Date Tobi Sorto MD [address] [place] [address] PCP - General Family Medicine 08/22/18 Cafe Cook Relationship Specialty Start Date End Date Tobi Sorto MD [address] [place] [address] PCP - General Family Medicine 08/22/18 Cafe Cook Relationship Specialty Start Date End Date Tobi Sorto MD [address] [place] [address] PCP - General Family Medicine 08/22/18 Cafe Cook Relationship Specialty Start Date End Date Tobi Sorto MD [address] [place] [address] PCP - General Family Medicine 08/22/18 Cafe Cook Relationship Specialty Start Date End Date Tobi Sorto MD [address] [place] [address] PCP - General Family Medicine 08/22/18 Cafe Cook Relationship Specialty Start Date End Date Tobi Sorto MD [address] [place] [address] PCP - General Family Medicine 08/22/18 Cafe Cook Relationship Specialty Start Date End Date Tobi Sorto MD [address] [place] [address] PCP - General Family Medicine 08/22/18 Cafe Cook Relationship Specialty Start Date End Date Tobi Sorto MD [address] [place] [address] PCP - General Family Medicine 08/22/18 Cafe Cook Relationship Specialty Start Date End Date Tobi Sorto MD [address] [place] [address] PCP - General Family Medicine 08/22/18 Cafe Cook Relationship Specialty Start Date End Date Tobi Sorto MD [address] [place] [address] PCP - General Family Medicine 08/22/18 Cafe Cook Relationship Specialty Start Date End Date Tobi Sorto MD [address] [place] [address] PCP - General Family Medicine 08/22/18 Cafe Cook Relationship Specialty Start Date End Date Tobi Sorto MD [address] [place] [address] PCP - General Family Medicine 08/22/18 Cafe Cook Relationship Specialty Start Date End Date Tobi Sorto MD [address] [place] [address] PCP - General Family Medicine 08/22/18 Cafe Cook Relationship Specialty Start Date End Date Tobi Sorto MD [address] [place] [address] PCP - General Family Medicine 08/22/18 PodlogarAudrey APRN.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 SPECIALIST [address] [place] [address] Computer Application Developer Family Medicine 03/08/24 Cafe Cook Relationship Specialty Start Date End Date Toib Sorto MD [address] [place] [address] PCP - General Family Medicine 08/22/18 PodlogarAudrey POLICE STENOGRAPHER.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 SPECIALIST [address] [place] [address] Computer Application Developer Family Medicine 03/08/24 Cafe Cook Relationship Specialty Start Date End Date Tobi Sorto MD [address] [place] [address] PCP - General Family Medicine 08/22/18 Podlogar, Audrey, POLICE STENOGRAPHER.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 SPECIALIST [address] [place] [address] Computer Application Developer Family Medicine 03/08/24 Cafe Cook Relationship Specialty Start Date End Date Tobi Sorto MD [address] [place] [address] PCP - General Family Medicine 08/22/18 PodlogarAudrey APRN.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 SPECIALIST [address] [place] [address] Computer Application Developer Family Medicine 03/08/24 Cafe Cook Relationship Specialty Start Date End Date Tobi Sorto MD [address] [place] [address] PCP - General Family Medicine 08/22/18 PodlogarAudrey APRN.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 SPECIALIST [address] [place] [address] Computer Application Developer Family Medicine 03/08/24 Cafe Cook Relationship Specialty Start Date End Date Tobi Sorto MD [address] [place] [address] PCP - General Family Medicine 08/22/18 PodlogarAudrey, POLICE STENOGRAPHER.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 SPECIALIST [address] [place] [address] Computer Application Developer Family Medicine 03/08/24 Cafe Cook Relationship Specialty Start Date End Date Tobi Sorto MD [address] [place] [address] PCP - General Family Medicine 08/22/18 Podlogar, Audrey POLICE STENOGRAPHER.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 SPECIALIST [address] [place] [address] Computer Application Developer Family Medicine 03/08/24 Cafe Cook Relationship Specialty Start Date End Date Tobi Sorto MD [address] [place] [address] PCP - General Family Medicine 08/22/18 PodlogarAudrey APRN.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 SPECIALIST [address] [place] [address] Computer Application Developer Family Medicine 03/08/24 Ny Diez APRN.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 SPECIALIST [address] [facility] [place] [address] Computer Application Developer Family Medicine 06/23/24 Cafe Cook Relationship Specialty Start Date End Date Tobi Sorto MD [address] [place] [address] PCP - General Family Medicine 08/22/18 PodlogarAudrey APRN.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 SPECIALIST [address] [place] [address] Computer Application Developer Family Medicine 03/08/24 Ny Diez APRN.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 SPECIALIST [address] [facility] [place] [address] Computer Application Developer Family Medicine 06/23/24 Cafe Cook Relationship Specialty Start Date End Date Tobi Sorto MD [address] [place] [address] PCP - General Family Medicine 08/22/18 ChucklogAudrey kwan APRN.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 SPECIALIST [address] [place] [address] Computer Application Developer Family Medicine 03/08/24 Ny Diez APRN.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 SPECIALIST [address] [place] [address] Computer Application Developer Family Medicine 06/23/24 Cafe Cook Relationship Specialty Start Date End Date Tobi Sorto MD [address] [place] [address] PCP - General Family Medicine 08/22/18 PodlogarAudrey APRN.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 SPECIALIST [address] [place] [address] Computer Application Developer Family Medicine 03/08/24 Ny Diez APRN.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 SPECIALIST [address] [place] [address] Computer Application Developer Family Medicine 06/13/24 06/22/24 Ny Diez POLICE STENOGRAPHER.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 SPECIALIST [address] [place] [address] Computer Application Developer Family Medicine 06/23/24 Cafe Cook Relationship Specialty Start Date End Date Tobi Sorto MD [address] [place] [address] PCP - General Family Medicine 08/22/18 PodlogarAudrey, POLICE STENOGRAPHER.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 SPECIALIST [address] [place] [address] Computer Application Developer Family Medicine 03/08/24 Ny Diez POLICE STENOGRAPHER.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 SPECIALIST [address] [place] [address] [facility] Medicine 06/23/24 Cafe Cook Relationship Specialty Start Date End Date Tobi Sorto MD [address] [place] [address] PCP - General Family Medicine 08/22/18 PodlogarAudrey APRN.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 SPECIALIST [address] [place] [address] Computer Application Developer Family Medicine 03/08/24 Ny Diez APRN.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 SPECIALIST [address] [place] [address] Computer Application Developer Family Medicine 06/23/24 Cafe Cook Relationship Specialty Start Date End Date Tobi Sorto MD [address] [place] [address] PCP - General Family Medicine 08/22/18 PodlogarAudrey APRN.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 SPECIALIST [address] [place] [address] Computer Application Developer Family Medicine 03/08/24 Ny Diez APRN.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 SPECIALIST [address] [place] [address] Computer Application Developer Family Medicine 06/23/24 Cafe Cook Relationship Specialty Start Date End Date Tobi Sorto MD [address] [place] [address] PCP - General Family Medicine 08/22/18 PodlogarAudrey POLICE STENOGRAPHER.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 SPECIALIST [address] [place] [address] Computer Application Developer Family Medicine 03/08/24 Ny Diez APRN.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 SPECIALIST [address] [place] [address] Computer Application Developer Family Medicine 06/23/24 Cafe Cook Relationship Specialty Start Date End Date Tobi Sorto MD [address] [place] [address] PCP - General Family Medicine 08/22/18 PodlogarAudrey, POLICE STENOGRAPHER.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 SPECIALIST [address] [place] [address] Computer Application Developer Family Medicine 03/08/24 Ny Diez POLICE STENOGRAPHER.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 SPECIALIST [address] [facility] [place] [address] [facility] Medicine 06/23/24 Cafe Cook Relationship Specialty Start Date End Date Tobi Sorto MD [address] [place] [address] PCP - General Family Medicine 08/22/18 PodlogarAudrey, POLICE STENOGRAPHER.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 SPECIALIST [address] [place] [address] Computer Application Developer Family Medicine 03/08/24 Ny Diez POLICE STENOGRAPHER.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 SPECIALIST [address] [facility] [place] [address] Computer Application Developer Family Medicine 06/23/24 Cafe Cook Relationship Specialty Start Date End Date Tobi Sorto MD [address] [place] [address] PCP - General Family Medicine 08/22/18 Podlogar, Audrey, POLICE STENOGRAPHER.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 SPECIALIST [address] [place] [address] Computer Application Developer Family Medicine 03/08/24 Cafe Cook Relationship Specialty Start Date End Date Tobi Sorto MD [address] [place] [address] PCP - General Family Medicine 08/22/18 PodlogarAudrey POLICE STENOGRAPHER.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 SPECIALIST [address] [place] [address] Computer Application Developer Family Medicine 03/08/24 Cafe Cook Relationship Specialty Start Date End Date Tobi Sorto MD [address] [place] [address] PCP - General Family Medicine 08/22/18 PodlogarAudrey POLICE STENOGRAPHER.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 SPECIALIST [address] [place] [address] Computer Application Developer Family Medicine 03/08/24 Ny Diez, POLICE STENOGRAPHER.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 SPECIALIST [address] [place] [address] Computer Application Developer Family Medicine 09/11/24 Cafe Cook Relationship Specialty Start Date End Date Tobi Sorto MD [address] [place] [address] PCP - General Family Medicine 08/22/18 PodlogarAudrey, POLICE STENOGRAPHER.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 SPECIALIST [address] [place] [address] Computer Application Developer Family Medicine 03/08/24 Ny Diez POLICE STENOGRAPHER.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 SPECIALIST [address] [place] [address] Computer Application Developer Family Medicine 06/23/24 08/17/24 Ny Diez POLICE STENOGRAPHER.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 SPECIALIST [address] [place] [address] Computer Application Developer Family Medicine 09/11/24 Cafe Cook Relationship Specialty Start Date End Date Tobi Sorto MD [address] [place] [address] PCP - General Family Medicine 08/22/18 PodlogarAudrey APRN.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 SPECIALIST [address] [place] [address] Computer Application Developer Family Medicine 03/08/24 Ny Diez APRN.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 SPECIALIST [address] [place] [address] [facility] 09/11/24 Cafe Cook Relationship Specialty Start Date End Date Tobi Sorto MD [address] [place] [address] PCP - General Family Medicine 08/22/18 PodlogarAudrey APRN.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 SPECIALIST [address] [place] [address] Computer Application Developer Family Medicine 03/08/24 Ny Diez APRN.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 SPECIALIST [address] [place] [address] Computer Application Developer Family Medicine 09/11/24 Cafe Cook Relationship Specialty Start Date End Date Tobi Sorto MD [address] [place] [address] PCP - General Family Medicine 08/22/18 PodlogarAudrey APRN.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 SPECIALIST [address] [place] [address] Computer Application Developer Family Medicine 03/08/24 Ny Diez APRN.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 SPECIALIST [address] [place] [address] Computer Application Developer Family Medicine 09/11/24 Cafe Cook Relationship Specialty Start Date End Date Tobi Sorto MD [address] [place] [address] PCP - General Family Medicine 08/22/18 PodlogarAudrey APRN.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 SPECIALIST [address] [place] [address] Computer Application Developer Family Medicine 03/08/24 Ny Diez APRN.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 SPECIALIST [address] [place] [address] Computer Application Developer Family Medicine 09/11/24 Cafe Cook Relationship Specialty Start Date End Date Tobi Sorto MD [address] [place] [address] PCP - General Family Medicine 08/22/18 PodlogarAudrey APRN.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 SPECIALIST [address] [place] [address] Computer Application Developer Family Medicine 03/08/24 Ny Diez APRN.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 SPECIALIST [address] [place] [address] Computer Application Developer Family [facility] 09/11/24 Cafe Cook Relationship Specialty Start Date End Date Tobi Sorto MD [address] [place] [address] PCP - General Family Medicine 08/22/18 PodlogarAudrey APRN.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 SPECIALIST [address] [place] [address] [facility] 03/08/24 Ny Diez POLICE STENOGRAPHER.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 SPECIALIST [address] [place], [place] [address] [phone] [facility] 09/11/24 Cafe Cook Relationship Specialty Start Date End Date Tobi Sorto MD [address] [place] [address] PCP - General Family Medicine 08/22/18 PodlogarAudrey POLICE STENOGRAPHER.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 SPECIALIST [address] [place] [address] [facility] Medicine 03/08/24 Ny Diez POLICE STENOGRAPHER.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 SPECIALIST [address] [place] [address] [facility] 09/11/24 Cafe Cook Relationship Specialty Start Date End Date Tobi Sorto MD [address] [place] [address] PCP - General Family Medicine 08/22/18 PodlogarAudrey POLICE STENOGRAPHER.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 SPECIALIST [address] [place] [address] [facility] Medicine 03/08/24 Ny Diez POLICE STENOGRAPHER.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 SPECIALIST [address] [place] [address] [facility] 09/11/24 FOR RECORDS PERTAINING TO PATIENTS WHO ARE OR HAVE BEEN ENROLLED IN A CHEMICAL DEPENDENCY/SUBSTANCEABUSE PROGRAM, SOME INFORMATION MAY BE OMITTED. This clinical summary was aggregated from multiple sources. Caution should be exercised in using it in the provision of clinical care. This summary normalizes information from multiple sources, and as a consequence, information in this document may materially change the coding, format and clinical context of patient data. In addition, data may be omitted in some cases. CLINICAL DECISIONS SHOULD BE BASED ON THE PRIMARY CLINICAL RECORDS. [facility]. provides no warranty or guarantee of the accuracy or completeness of information in this document.
--- NOTE | 2024-10-18 20:57 | EX.ED.DYSGE1 ---
HPI History of Present Illness Chief Complaint: Wound Narrative Narrative: Patient is a 69-year-old male with past medical history of type 2 diabetes, hypertension, hypercholesteremia who presents to the emergency department for concern for left first toe wound. He states that on Sunday he saw his broadband installer and they advised him to come to the emergency department to be evaluated. Patient states that he did not, at that point in time as he states that he was given a prescription and wanted to see if the antibiotics that he was given would take care of this issue. He states that he was given ciprofloxacin and Augmentin according to the paperwork that he brought in. He states that he is been taking this and this is not helping. [facility] Medical History High cholesterol HTN (hypertension) Diabetes type 2, controlled H/O blood clots Home Medications ?Medication ?Instructions ?Recorded ?Last Taken ?Type atorvastatin 40 mg tablet 40 mg PO QHS 12/17/15 05/21/17 History meloxicam 15 mg tablet 15 mg PO DAILY 06/19/17 Unknown History aspirin 81 mg chewable tablet 81 mg PO DAILY 08/16/18 Unknown History glimepiride 2 mg tablet 2 mg PO DAILY 08/16/18 Unknown History Lactobacillus acidophilus 20 100 mmu cells PO DAILY 10/18/24 Unknown History billion cell capsule (Florajen Acidophilus) albuterol sulfate 90 mcg/actuation 2 puff inhalation Q4H PRN PRN 10/18/24 Unknown History aerosol inhaler wheezing amitriptyline 10 mg tablet 10 mg PO QHS 10/18/24 Unknown History amoxicillin 875 mg-potassium 1 tab PO BID 10/18/24 Unknown History clavulanate 125 mg tablet ciprofloxacin HCl 500 mg tablet 500 mg PO BID 10/18/24 Unknown History empagliflozin 25 mg tablet 25 mg PO DAILY 10/18/24 Unknown History (Jardiance) ferrous sulfate 325 mg (65 mg 325 mg PO DAILY 10/18/24 Unknown History iron) tablet gabapentin 300 mg capsule 900 mg PO QHS 10/18/24 Unknown History gabapentin 600 mg tablet 600 mg PO DAILY 10/18/24 Unknown History hydrochlorothiazide 50 mg tablet 50 mg PO DAILY 10/18/24 Unknown History losartan 100 mg tablet 100 mg PO DAILY 10/18/24 Unknown History metformin 1,000 mg tablet 1,000 mg PO BID 10/18/24 Unknown History montelukast 10 mg tablet 10 mg PO QHS 10/18/24 Unknown History omeprazole 20 mg capsule,delayed 20 mg PO DAILY 10/18/24 Unknown History release pramipexole 0.25 mg tablet 0.5 mg PO QHS 10/18/24 Unknown History silver 32 PPM topical gel 1 applic topical QHS 10/18/24 Unknown History Allergy/AdvReac Type Severity Reaction Status Date / Time No Known Allergies Allergy Verified 10/18/24 20:17 Surgical History vein surgery r leg Social History Smoking Status: Current every day smoker tobacco type: cigarettes alcohol intake: never substance use type: does not use ROS ROS ED ROS Narrative Constitutional: Denies any fevers or chills Neurological: Denies any new numbness, weakness, tingling Skin: Complains of left first great toe wound EXAM Physical Exam Narrative Exam Narrative: General: Patient lying in bed rest comfortably did not appear to be in acute distress Head: Atraumatic, normocephalic Eyes: PERRL bilaterally, EOMI blood, no conjunctival injection noted Neck: Soft, supple, trachea midline Cardiovascular: Regular rate and rhythm Respiratory: Clear to auscultation bilaterally Extremities: DP pulses +2/4 in the bilateral lower extremities Neurological: Patient following commands and that he was at [facility] the year is 2024 Skin: Patient has chronic wound to the left great toe Const Vital Signs: 10/18/24 20:17 10/18/24 20:21 10/18/24 21:06 Temperature 97 F L 98.1 F 98.4 F Temperature Source Temporal Oral Oral Pulse Rate 90 87 79 Respiratory Rate 16 16 90 H Blood Pressure 130/72 H 148/83 H 158/71 H Blood Pressure Mean 91 104 100 Pulse Ox 97 96 Oxygen Delivery Method Room Air Room Air Room Air Oxygen Flow Rate (L/min) Fraction of Inspired Oxygen (FIO2) 10/18/24 21:07 10/18/24 22:00 Temperature 98.5 F Temperature Source Oral Pulse Rate 74 Respiratory Rate 96 H Blood Pressure 144/70 H Blood Pressure Mean 94 Pulse Ox Oxygen Delivery Method Room Air Nasal Cannula Oxygen Flow Rate (L/min) 2 Fraction of Inspired Oxygen (FIO2) 93 MDM MDM MDM Narrative Medical decision making narrative: Patient is a 69-year-old male who presents to the emergency department with a chief complaint of left great toe wound. Once again he has been on oral antibiotics and this is not improving. On the differential diagnosis includes but not limited to cellulitis, osteomyelitis. Once workup is obtained reviewed he will be reevaluated. Patient be given 30 cc/kg bolus of IV fluids based on ideal body weight as he has a BMI of greater than 30 this will be 2500 mL. Patient's CBC was reviewed and showed a leukocytosis of 11,000, hemoglobin 17.7, platelet count of 194. Patient INR normal at 0.9, PT of 12.4. Patient sodium was 140, potassium normal at 4.1, creatinine was 1.36. Patient lactic acid normal 0.9, AST and ALT were 25 and 20 respectively. Patient's urinalysis showed 10 occult blood, negative nitrates, 25 leukocyte esterase 0-5 white cells. Patient's x-ray of his foot reviewed by myself and by radiology showed no evidence of acute osteomyelitis. Patient was given vancomycin and Zosyn at 2132 and 2200. At this point in time given the patient's wound has not improved despite oral antibiotics and podiatry was recommending originally being sent into the emergency department on the day of his exam will discuss case with hospitalist for admission for IV antibiotics and further evaluation by the podiatry team. Spoke with hospitalist Dr. Giraldo spinal cord concerns answered. Lab Data Labs: Laboratory Results - last 24 hr 10/18/24 10/18/24 10/18/24 21:05 21:14 21:15 WBC 11.6 H RBC 5.45 Hgb 17.7 H Hct 52.4 MCV 96.1 H MCH 32.5 H MCHC 33.8 RDW Std Deviation 56.2 H RDW Coeff of Kimberly 15.9 H Plt Count 194 MPV 10.8 Immature Gran % (Auto) 0.400 Neut % (Auto) 65.7 Lymph % (Auto) 22.8 [place] % (Auto) 7.3 Eos % (Auto) 3.1 Baso % (Auto) 0.7 Absolute Neuts (auto) 7.6 Absolute Lymphs (auto) 2.64 Nucleated RBC % 0 PT 12.4 INR 0.9 APTT 27.8 Sodium 140 Potassium 4.1 Chloride 100 Carbon Dioxide 26.5 Anion Gap 14 BUN 23 H Creatinine 1.36 H Estim Creat Clear Calc 65.75 Est GFR (MDRD) Non-Af 56 L BUN/Creatinine Ratio 17.1 Glucose 112 H Lactic Acid 1.9 Calcium 9.9 Total Bilirubin 0.76 AST 25 ALT 20 Alkaline Phosphatase 71 Total Protein 8.0 Albumin 4.1 Globulin 3.8 Albumin/Globulin Ratio 1.1 Urine Color Yellow Urine Clarity Clear Urine pH 5.0 Ur Specific [place] 1.025 Urine Protein 500 H Urine Glucose (UA) 1000 H Urine Ketones 5 H Urine Occult Blood 10 H Urine Nitrite Negative Urine Bilirubin 1 H Urine Urobilinogen Normal Ur Leukocyte Esterase 25 H Urine RBC 0 SEEN Urine WBC 0-5 SEEN Ur Squamous Epith Cells 0-5 SEEN Urine Bacteria RARE Urine Mucus 0 SEEN Radiography Diagnostic Testing: Clinical Impression(s) from Imaging Studies Foot X-Ray 10/18/24 20:39 IMPRESSION: No definite radiographic evidence of acute osteomyelitis. Consider MRI or bone scan if there is persistent clinical concern. Reading Location: [id number] Discharge Plan Triage Chief Complaint: Wound ED Provider: Luke Jenkins Dx/Rx/DC Orders Clinical Impression: Infected abrasion of great toe, Hypertension, essential, Type 2 diabetes mellitus, without long-term current use of insulin Prescriptions: No Action meloxicam 15 mg tablet 15 mg PO DAILY atorvastatin 40 MG tablet 40 mg PO QHS glimepiride 2 MG tablet 2 mg PO DAILY aspirin 81 MG tablet,chewable 81 mg PO DAILY amitriptyline 10 mg tablet 10 mg PO QHS albuterol sulfate 90 mcg/actuation HFA aerosol inhaler 2 puff inhalation Q4H PRN PRN (Reason: wheezing) Jardiance 25 mg tablet 25 mg PO DAILY ferrous sulfate 325 mg (65 mg iron) tablet 325 mg PO DAILY Florajen Acidophilus 20 billion cell capsule 100 mmu cells PO DAILY gabapentin 600 mg tablet 600 mg PO DAILY hydrochlorothiazide 50 mg tablet 50 mg PO DAILY metformin 1,000 mg tablet 1,000 mg PO BID pramipexole 0.25 mg tablet 0.5 mg PO QHS gabapentin 300 mg capsule 900 mg PO QHS omeprazole 20 mg capsule,delayed release(DR/EC) 20 mg PO DAILY montelukast 10 mg tablet 10 mg PO QHS losartan 100 mg tablet 100 mg PO DAILY silver 32 PPM gel 1 applic topical QHS ciprofloxacin HCl 500 mg tablet 500 mg PO BID amoxicillin-pot clavulanate 875-125 mg tablet 1 tab PO BID Primary Care Provider: Salty Sorto Referrals: Salty Sorto MD [Primary Care Provider] - Print Language: Cypriot Disposition Disposition: Home, Self Care
[2024-10-18 21:06] VITALS: BP 158/71; PULSE 79; RESP 90; TEMP 36.9
[2024-10-18] MEDS: 0.9% Normal Saline (1000mL) 1,000 ML 999 ML IV ×2 (21:09→23:26)
[2024-10-18 21:23] LABS: Mucous, Urine 0 SEEN /hpf (<or=2+); Red Blood Cells-Urine 0 SEEN /hpf (0-5)
[2024-10-18 21:25] LABS: Hematocrit 52.4 % (40-54); Hemoglobin 17.7 g/dL (13.0-16.5); Immature Granulocytes Count 0.050 X10^3/uL (0.0-0.0); Mean Corp Hgb Conc 33.8 g/dL (32-36); Mean Corpuscular Volume 96.1 fL (80-94); Mean Platelet Vol. 10.8 fl (6.2-12.0); NRBC Flagged by Analyzer 0 % (0-5); Platelet Count 194 K/mm3 (150-450); RBC Distribution Width CV 15.9 % (11.6-14.6); RBC Distribution Width SD 56.2 fl (35.1-43.9); Red Blood Count 5.45 M/mm3 (4.6-6.2); White Blood Count 11.6 K/mm3 (4.4-11.0)
[2024-10-18 21:30] LABS: Color, Urine Yellow (Yellow); Glucose, Dipstick 1000 mg/dl (Normal); Ketone-Dipstick 5 mg/dl (Negative); Leukocyte Esterase-Dipstick 25 /ul (Negative); Nitrite-Dipstick Negative (Negative); Occult Blood-Urine 10 /ul (Negative); Protein-Dipstick 500 mg/dl (Negative); Specific Gravity, Urine 1.025 (1.002-1.030)
[2024-10-18 21:33] LABS: Urine Bilirubin Dipstick 1 mg/dL (Negative)
[2024-10-18 21:33] LABS: Prothrombin Time (Protime)PT. 12.4 SECONDS (11.7-14.9)
[2024-10-18 21:34] LABS: Partial Thromboplast Time 27.8 Seconds (24.1-36.2)
[2024-10-18] MEDS: Piperacil/Tazobactam 3.375 GM in 0.9% Normal Saline (50mL MB+) 50 ML IV (21:53)
[2024-10-18 22:00] VITALS: BP 144/70; PULSE 74; RESP 96; TEMP 36.9
[2024-10-18 22:05] LABS: AST(SGOT) 25 U/L (<=37); Alanine Aminotransfer ALT/SGPT 20 U/L (<=46); Albumin, Serum 4.1 g/dL (3.4-4.8); Alkaline Phosphatase 71 U/L (40-129); Anion Gap 14 (5-15); BUN 23 mg/dL (4-19); BUN/Creat Ratio 17.1 RATIO (10-20); Calcium,Total 9.9 mg/dL (7.6-11.0); Carbon Dioxide 26.5 mmol/L (21.0-32.0); Chloride 100 mmol/L (98-108); Estimated Creatinine Clearance 65.75 ml/min (50-250); Globulin 3.8 g/dL (2.2-4.2); Glucose 112 mg/dL (70-99); Potassium 4.1 mmol/L (3.3-5.1)
[2024-10-18 22:05] LABS: Squamous Epithelial Cells - UA 0-5 SEEN /hpf (0-5)
--- NOTE | 2024-10-18 22:37 | PCM.HP.STD ---
[facility] - General General Date of Admission: 10/18/24 Date of Service: 10/18/24 Chief Complaint: Worsening Left Toe Wound. [facility] Narrative TONY ESTES, is a 69 M with a past medical history of essential hypertension; on losartan and hydrochlorothiazide, hyperlipidemia; on atorvastatin, obesity (class I); with BMI of 32 this admission, tobacco abuse, DM-2; of unknown control on metformin twice daily, glimepiride and empagliflozin, diabetic neuropathy; with poor sensitivity in feet on gabapentin TID, SCOTTIE; on ferrous sulfate, RLS; on pramipexole, depression; on amitriptyline, GERD; on omeprazole and recently diagnosed Left great toe wound with subsequent infection for which she was evaluated by director of product development on Monday, October 14, 2024 with patient subsequently started on oral ciprofloxacin and amoxicillin-clavulanate who presents to [facility] complaining of worsening Left toe wound. Mr. Estes reports his symptoms began approximately 1 week prior to admission when his toe wound first became infected after he spent ~2 weeks on vacation between [facility] walking on the beach every day. Shortly after he arrived home he noticed his left great toe began to look abnormal and then became frankly infected causing him to call his director of product development. He states he has been taking his antibiotics and they do not seem to be helping so he decided to contact his director of product development to instructed him to come into the ER for further evaluation and treatment. He denies associated fever, chills, tingling, abdominal pain, nausea, vomiting, diarrhea, constipation, chest pain, palpitations, heart racing, dysuria, hematuria, headache or rash. In the ER he was noted to have Leukocytosis of 11.6 K present on admission with otherwise unremarkable laboratory studies and vital signs. He was then admitted to the general medical floor for ongoing care for stay that is expected to extend beyond 2 midnights. [facility], [facility] Medical History High cholesterol HTN (hypertension) Diabetes type 2, controlled H/O blood clots Home Medications ?Medication ?Instructions ?Recorded ?Last Taken ?Type atorvastatin 40 mg tablet 40 mg PO QHS 12/17/15 05/21/17 History meloxicam 15 mg tablet 15 mg PO DAILY 06/19/17 Unknown History aspirin 81 mg chewable tablet 81 mg PO DAILY 08/16/18 Unknown History glimepiride 2 mg tablet 2 mg PO DAILY 08/16/18 Unknown History Lactobacillus acidophilus 20 100 mmu cells PO DAILY 10/18/24 Unknown History billion cell capsule (Florajen Acidophilus) albuterol sulfate 90 mcg/actuation 2 puff inhalation Q4H PRN PRN 10/18/24 Unknown History aerosol inhaler wheezing amitriptyline 10 mg tablet 10 mg PO QHS 10/18/24 Unknown History amoxicillin 875 mg-potassium 1 tab PO BID 10/18/24 Unknown History clavulanate 125 mg tablet ciprofloxacin HCl 500 mg tablet 500 mg PO BID 10/18/24 Unknown History empagliflozin 25 mg tablet 25 mg PO DAILY 10/18/24 Unknown History (Jardiance) ferrous sulfate 325 mg (65 mg 325 mg PO DAILY 10/18/24 Unknown History iron) tablet gabapentin 300 mg capsule 900 mg PO QHS 10/18/24 Unknown History gabapentin 600 mg tablet 600 mg PO DAILY 10/18/24 Unknown History hydrochlorothiazide 50 mg tablet 50 mg PO DAILY 10/18/24 Unknown History losartan 100 mg tablet 100 mg PO DAILY 10/18/24 Unknown History metformin 1,000 mg tablet 1,000 mg PO BID 10/18/24 Unknown History montelukast 10 mg tablet 10 mg PO QHS 10/18/24 Unknown History omeprazole 20 mg capsule,delayed 20 mg PO DAILY 10/18/24 Unknown History release pramipexole 0.25 mg tablet 0.5 mg PO QHS 10/18/24 Unknown History silver 32 PPM topical gel 1 applic topical QHS 10/18/24 Unknown History Allergy/AdvReac Type Severity Reaction Status Date / Time No Known Allergies Allergy Verified 10/18/24 20:17 Surgical History vein surgery r leg Social History Smoking Status: Current every day smoker tobacco type: cigarettes alcohol intake: never substance use type: does not use ROS ROS Narrative Review of Systems: Constitutional: Patient denies fever or chills. Eyes: Patient denies change in vision or discharge from eyes. ENT: Patient denies runny nose, sore throat or ear pain. Resp: Patient denies shortness of breath, cough or wheezing. CV: Patient denies chest pain, palpitations, heart racing or lower extremity edema. GI: Patient denies abdominal pain, nausea, vomiting, diarrhea or constipation. : Patient denies dysuria, hematuria or urinary frequency. MSK: Patient denies arthralgias or myalgias. Skin: Patient admits to Left great toe wound as per HPI. Psych: Patient denies symptoms of uncontrolled depression or anxiety. Neuro: Patient admits to poor sensitivity of the pain in his feet but he denies headache, paresthesias or focal neurologic deficits. Allergy: Patient denies lip swelling, tongue swelling or urticaria. Hematology: Patient denies easy bleeding or easy bruisability. Endocrinology: Patient denies polyuria, polydipsia, polyphagia or heat/cold intolerance. 14 point ROS otherwise negative except for positives noted above in HPI. Vital Signs Vital Signs Vital Signs: 10/18/24 20:17 10/18/24 20:21 10/18/24 21:06 Temperature 97 F L 98.1 F 98.4 F Temperature Source Temporal Oral Oral Pulse Rate 90 87 79 Respiratory Rate 16 16 90 H Blood Pressure 130/72 H 148/83 H 158/71 H Blood Pressure Mean 91 104 100 Pulse Ox 97 96 Oxygen Delivery Method Room Air Room Air Room Air Oxygen Flow Rate (L/min) Fraction of Inspired Oxygen (FIO2) 10/18/24 21:07 10/18/24 22:00 Temperature 98.5 F Temperature Source Oral Pulse Rate 74 Respiratory Rate 96 H Blood Pressure 144/70 H Blood Pressure Mean 94 Pulse Ox Oxygen Delivery Method Room Air Nasal Cannula Oxygen Flow Rate (L/min) 2 Fraction of Inspired Oxygen (FIO2) 93 Weight Weight: 242 lb 11.663 oz Body Mass Index (BMI) 32.0 Physical Exam Const alert, oriented x3, no apparent distress and healthy appearing Constitutional Narrative: Obese patient nontoxic in appearance. General Appearance: cooperative HEENT normocephalic, head/scalp atraumatic, hearing grossly normal bilaterally and moist oral mucous membranes Eyes PERRL, EOMs intact bilaterally and conjunctivae normal Neck no lymphadenopathy, supple and no JVD Resp normal respiratory effort, no retractions, no use of accessory muscles and clear to auscultation bilaterally Cardio regular rate and regular rhythm GI normal to inspection, nondistended, normoactive bowel sounds, soft to palpation, non-tender and non-distended GI Narrative: Obese. Extremity Extremity Narrative: Chronic wound of Left great toe with apparent acute infection but with no evidence of neurovascular compromise. Skin Skin Narrative: Chronic wound of Left great toe with apparent acute infection but with no evidence of neurovascular compromise. Neuro oriented x3, CN's II-XII intact bilaterally, moves all extremities and no focal motor deficits Sensorium / Orientation: awake, alert, oriented to person, oriented to place and oriented to time Speech: speech normal Psych affect normal Results Medical Records Data Attestation: I reviewed the patient's medical records Lab / Micro Data Attestation: I reviewed the patient's lab results. 10/18/24 21:05 10/18/24 21:14 Labs: Laboratory Results - last 24 hr 10/18/24 21:05: WBC 11.6 H, RBC 5.45, Hgb 17.7 H, Hct 52.4, MCV 96.1 H, MCH 32.5 H, MCHC 33.8, RDW Std Deviation 56.2 H, RDW Coeff of Kimberly 15.9 H, Plt Count 194, MPV 10.8, Immature Gran % (Auto) 0.400, Neut % (Auto) 65.7, Lymph % (Auto) 22.8, [place] % (Auto) 7.3, Eos % (Auto) 3.1, Baso % (Auto) 0.7, Absolute Neuts (auto) 7.6, Absolute Lymphs (auto) 2.64, Nucleated RBC % 0, PT 12.4, INR 0.9, APTT 27.8 10/18/24 21:14: Sodium 140, Potassium 4.1, Chloride 100, Carbon Dioxide 26.5, Anion Gap 14, BUN 23 H, Creatinine 1.36 H, Estim Creat Clear Calc 65.75, Est GFR (MDRD) Non-Af 56 L, BUN/Creatinine Ratio 17.1, Glucose 112 H, Lactic Acid 1.9, Calcium 9.9, Total Bilirubin 0.76, AST 25, ALT 20, Alkaline Phosphatase 71, Total Protein 8.0, Albumin 4.1, Globulin 3.8, Albumin/Globulin Ratio 1.1 10/18/24 21:15: Urine Color Yellow, Urine Clarity Clear, Urine pH 5.0, Ur Specific [place] 1.025, Urine Protein 500 H, Urine Glucose (UA) 1000 H, Urine Ketones 5 H, Urine Occult Blood 10 H, Urine Nitrite Negative, Urine Bilirubin 1 H, Urine Urobilinogen Normal, Ur Leukocyte Esterase 25 H, Urine RBC 0 SEEN, Urine WBC 0-5 SEEN, Ur Squamous Epith Cells 0-5 SEEN, Urine Bacteria RARE, Urine Mucus 0 SEEN Imaging Radiology Impression Foot X-Ray 10/18/24 20:39 IMPRESSION: No definite radiographic evidence of acute osteomyelitis. Consider MRI or bone scan if there is persistent clinical concern. Reading Location: [id number] Assessment & Plan Assessment/Plan (1) Infected abrasion of great toe: QUALIFIERS: Encounter type: initial encounter Laterality: left Qualified Code(s): S90.412A - Abrasion, left great toe, initial encounter; L08.9 - Local infection of the skin and subcutaneous tissue, unspecified (2) Leukocytosis: QUALIFIERS: Leukocytosis type: unspecified Qualified Code(s): D72.829 - Elevated white blood cell count, unspecified (3) Therapy failure due to antibiotic resistance: (4) Atrial fibrillation, new onset: (5) Type 2 diabetes mellitus, without long-term current use of insulin: QUALIFIERS: Diabetes mellitus complication status: without complication Qualified Code(s): E11.9 - Type 2 diabetes mellitus without complications (6) Diabetic neuropathy: QUALIFIERS: Diabetes mellitus type: type 2 Diabetes mellitus complication detail: diabetic polyneuropathy Qualified Code(s): E11.42 - Type 2 diabetes mellitus with diabetic polyneuropathy (7) Tobacco abuse: (8) Obesity (BMI 30.0-34.9): PLAN: Plan 1. Worsening Left great toe wound with Leukocytosis of 11.6 K present on admission with x-rays on admission revealing no definite radiographic evidence of acute osteomyelitis - Admit to general medical floor. Continue empiric IV vancomycin and IV piperacillin-tazobactam began in ER and await culture and sensitivity data. Check DNA MRSA probe of wound. Give acetaminophen as needed for [id number] (level 1-5/10) pain or fever. Give oxycodone as needed for severe (level 6-10/10) pain. We will check MRI of the Left foot to evaluate for possible osteomyelitis. Finally, we will consult director of product development on-call to see this patient on rounds for further recommendations without appreciated advance. 2. Failure of outpatient Antibiotic Therapy with oral ciprofloxacin and amoxicillin-clavulanate complicating #1 suggesting MRSA - Noted. Will culture wound and check DNA PCR probe of wound for MRSA. 3. Apparently new-onset Atrial Fibrillation; rate-controlled compounding #1 & #2 - Maintain on full-dose enoxaparin begun in the ER. Check echocardiogram to evaluate LVEF. 4. DM-2; of unknown control on metformin twice daily, glimepiride and empagliflozin with severe diabetic neuropathy complicating #1 - #3 - Hold oral hypoglycemic medications while inpatient. ADA diet with fingerstick blood sugars q. AC/HS plus SSI. Check hemoglobin A1c to objectively evaluate quality of diabetic control. 5. Tobacco abuse adding to the medical complexity of #1 - #4 - Tobacco Cessation will be strongly encouraged with nicotine patch offered to control cravings. 6. Obesity (class I); with BMI of 32 this admission adding to the burden of disease outlined from #1 - #5 - Weight loss will be recommended . Check TSH. This complicates his case and may hamper recovery. 7. Essential hypertension; on losartan and hydrochlorothiazide - Maintain home regimen as previous. 8. Hyperlipidemia; on atorvastatin - Resume statin and check lipid profile. 9. Neuropathy; on gabapentin TID - Present treatment to continue as previous. 10. SCOTTIE; on ferrous sulfate - Stable with hemoglobin of 17.7g/dL and MCV of 96.1 fL present on admission. 11. RLS; on pramipexole - Continue nightly pramipexole. 12. Depression; on amitriptyline - Maintain on amitriptyline. 13. GERD; on omeprazole - Resume PPI. 14. DVT prophylaxis - Patient already on full-dose enoxaparin for #2. Total time: Approximately (midnight less than) 75 minutes. Charges/Coding Visit Charges Inpatient E&M: 56142 Init Hosp L3
[2024-10-18] MEDS: Vancomycin HCl 1,750 MG in 0.9% Normal Saline (500mL Bag) 500 ML 250 MG IV (22:45)
--- OUTSIDE RECORDS SUMMARY | 2024-10-18 22:58 | XMS RPT_ITS | CCD ---
Author Organization [facility] Care Team Providers Care Delivery Man Name Role Phone Tobi Sorto MD Primary Care Provider ALONDRA BRODERICK Referring Unavailable TOBI SORTO Primary Care Unavailab Tobi Olguin MD Primary Care Provider Podlogar INTERNET RESEARCHER.Audrey PYLE Unavailable [place]le INTERNET RESEARCHER.Ny PYLE Unavailable [place] INTERNET RESEARCHER.Ny PYLE Unavailable [place] INTERNET RESEARCHER.Ny PYLE Unavailable [place] INTERNET RESEARCHER.Ny PYLE Unavailable TOBI SORTO Primary Care Unavailab le TOBI SORTO Referring Unavailab le TOBI SORTO Primary Care Unavailab le TESTGREG, RAO Attending Unavailable TOBI SORTO Primary Care [...] Drug Class(es) Dates Sig (Normalized) Sig (Original) [id number] actuat albuterol 0.09 mg/actuat metered dose [...] End: take 1 tablet by mouth once daily at bedtime amitriptyline (ELAVIL) 50 mg tablet Take 1 tablet by mouth daily at bedtime. 30 tablet 08/05/2024 09/04/2024 Active Start: 07-28-2024 End: 02-15-2025 take 1 tablet by mouth once daily at bedtime amitriptyline (ELAVIL) 25 mg tablet Indications: Chronic insomnia Take 1 tablet by mouth daily at bedtime. 90 tablet 1 08/19/2024 02/15/2025 Active Start: 07-21-2024 End: 08-20-2024 take 1 tablet by mouth once daily at bedtime amitriptyline (ELAVIL) 10 mg tablet Take 1 tablet by mouth daily at bedtime. 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 14 tablet 10/14/2024 10/21/2024 Active Start: 07-04-2023 End: 07-14-2023 take 1 tablet by mouth twice daily amoxicillin-clavulanate potassium (AUGMENTIN) 875-125 mg per tablet Indications: Sinus pressure , Upper respiratory tract infection, unspecified type Take 1 tablet by mouth two times a day for 10 days. 20 tablet 0 07/04/2023 07/14/2023 Active Start: 02-22-2022 End: 03-04-2022 take 1 tablet by mouth twice daily amoxicillin-clavulanic acid (AUGMENTIN) 875-125 mg per tablet Indications: Bacterial sinusitis Take 1 tablet by mouth twice daily for 10 days. 20 tablet 0 02/22/2022 03/04/2022 Active Comment on above: Take 1 tablet by oxana th twice daily for 10 days. Take 1 tablet by oxana th two times a day for 10 days. aspirin 81 mg chewable tablet (20 sources) Platelet Aggregation Inhibitor, Nonsteroidal Anti-inflammatory Drug Start: 016 take 1 tablet by mouth once daily aspirin 81 mg chewable tablet Take 1 tablet by mouth once daily. 0 12/09/2015 Active Comment on above: Take 1 tablet by oxana th once daily. atorvastatin 40 mg oral tablet (20 sources) HMG-CoA Reductase Inhibitor Start: 023 End: 025 take 1 tablet by mouth once daily for hyperlipidemia atorvastatin (LIPITOR) 40 mg tablet Take 1 tablet by mouth once daily. For cholesterol. 90 tablet 1 08/14/2024 Active Start: 05-25-2020 End: 06-01-2022 take 1 tablet by mouth once daily for hyperlipidemia atorvastatin (LIPITOR) 40 mg tablet Take 1 tablet by mouth once daily. For cholesterol. 90 tablet 1 03/03/2022 06/01/2022 Discontinued Comment on above: Take 1 tablet by oxana th once daily. For cholesterol. benzonatate 100 mg oral capsule (6 sources) Non-narcotic Antitussive Start: End: take 1 capsule by mouth every eight hours as needed benzonatate (TESSALON PERLE) 100 mg capsule Take 1 capsule by mouth three times a day as needed for up to 10 days. 30 capsule 0 08/17/2023 08/27/2023 Active Start: 11-20-2022 End: 11-30-2022 take 1 capsule by mouth three times daily as needed benzonatate (TESSALON PERLE) 100 mg capsule Indications: Chronic cough , Decreased breath sounds at left lung base Take 1 capsule by mouth three times daily as needed for up to 10 days. 30 capsule 11/20/2022 11/30/2022 Comment on above: Take 1 capsule by [facility] three times daily as needed for up to 10 days. Blood Pressure Monitor (BLOOD PRESSURE KIT) (20 sources) Start: 03-05-2020 Blood Pressure Monitor (BLOOD PRESSURE KIT) Indications: Hypertension, essential 1 Each once daily. 1 Kit 03/05/2020 Active Start: 03-05-2020 Blood Pressure Monitor (BLOOD PRESSURE KIT) Indications: Hypertension, essential 1 Each once daily. 1 Kit 0 03/05/2020 Active Comment on above: 1 Each once daily. Blood-Glucose Meter (TRUE METRIX AIR GLUCOSE METER) misc (20 sources) Start: 07-25-2018 Blood-Glucose Meter (TRUE METRIX AIR GLUCOSE METER) misc 1 Device twice daily. 1 Each 07/25/2018 Active Start: 07-25-2018 Blood-Glucose Meter (TRUE METRIX AIR GLUCOSE METER) misc 1 Device twice daily. 1 Each 0 07/25/2018 Active Comment on above: 1 Device twice daily . ciprofloxacin 500 mg oral tablet (2 sources) Quinolone Antimicrobial Start: 10-14-2024 End: 10-21-2024 ciprofloxacin HCl (CIPRO) 500 mg tablet Indications: Diabetic ulcer of toe associated with diabetes mellitus due to underlying condition, with fat layer exposed, unspecified laterality (HCC) Take 1 tablet by mouth two times a day for 7 days. FOR 7 DAYS. 14 tablet 10/14/2024 10/21/2024 Active CPAP/BIPAP/OTHER (3 sources) Start: 09-29-2024 End: 02-14-2052 CPAP/BIPAP/OTHER Type .CPAPSettings into a note to see current settings/supplies/DME information. 1 each 09/29/2024 02/14/2052 Active cyclobenzaprine hydrochloride 5 mg oral tablet (20 sources) Muscle Relaxant Start: 03-12-2023 End: 12-05-2023 cyclobenzaprine (FLEXERIL) 5 mg tablet Take 1-2 tablets at bedtime as needed for muscle spasms 60 tablet 2 11/27/2023 12/05/2023 Discontinued (Changing Therapy/Dosage Form) Start: 08-23-2022 End: 02-05-2023 cyclobenzaprine (FLEXERIL) 5 mg tablet Take 1-2 tablets at bedtime as needed for muscle spasms 30 tablet 1 02/06/2023 Active Start: 01-03-2022 End: 06-29-2022 cyclobenzaprine (FLEXERIL) 5 mg tablet Take 1-2 tablets at bedtime as needed for muscle spasms 30 tablet 1 02/22/2022 04/28/2022 Discontinued Comment on above: Take 1-2 tablets at bedtime as needed for muscle spasms doxycycline hyclate 100 mg oral capsule (4 sources) Tetracycline-clas s Drug Start: 09-01-2024 End: 09-08-2024 take 1 capsule by mouth twice daily doxycycline hyclate (VIBRAMYCIN) 100 mg capsule Take 1 capsule by mouth two times a day for 7 days. 14 capsule 09/01/2024 09/08/2024 Active Start: 10-18-2022 End: 10-25-2022 take 1 tablet by mouth twice daily doxycycline (VIBRA-TABS) 100 mg tablet Indications: Cellulitis of skin Take 1 tablet by mouth twice daily for 7 days. 14 tablet 0 10/18/2022 10/25/2022 Comment on above: Take 1 tablet by oxana twice daily for 7 days. empagliflozin 25 mg oral tablet (20 sources) Sodium-Glucose Cotransporter 2 Inhibitor Start: 05-11-19 End: 10-29-19 take 1 tablet by mouth once daily, then take 1 tablet by mouth once daily in the morning empagliflozin (JARDIANCE) 25 mg tablet Take 1 tablet by mouth once daily. Take 1 tablet once daily in the morning 90 tablet 1 05/01/2024 10/28/2024 Active Start: 01-08-2023 End: 07-07-2023 take 1 tablet by mouth once daily, then take 1 tablet by mouth once daily in the morning empagliflozin (JARDIANCE) 10 mg tablet Take 1 tablet by mouth once daily. Take 1 tablet once daily in the morning 90 tablet 1 01/08/2023 05/11/2023 Discontinued Start: 07-08-2021 End: 01-05-2023 take 1 tablet by mouth once daily, then take 1 tablet by mouth once daily in the morning empagliflozin (JARDIANCE) 10 mg tablet Take 1 tablet by mouth once daily. Take 1 tablet once daily in the morning 90 tablet 1 09/05/2021 01/05/2023 Discontinued (Clinical Decision) Comment on above: Take 1 tablet by oxana th once daily. Take 1 tablet once daily in the morning ferrous sulfate 325 mg oral tablet (20 sources) Start: End: 5 take 1 tablet by mouth once daily ferrous sulfate 325 mg (65 mg iron) tablet Indications: Low ferritin level Take 1 tablet by mouth once daily. 90 tablet 1 09/24/2024 03/23/2025 Active fluticasone / salmeterol (20 sources) Corticosteroid, beta2-Adrenergic Agonist Start: take 1 puff(s) by inhalation twice daily fluticasone-salmete rol (ADVAIR) 500-50 mcg/dose dsdv INHALE 1 PUFF INSTRUCTED TWO TIMES A DAY 60 Each 4 03/24/2024 Active Start: 09-17-2023 End: 03-24-2024 fluticasone-salmeterol (WIXE LA INHUB) 500-50 mcg/dose dsdv Inhale 1 Puff as instructed two times a day. Please give the patient 1 inhaler with 4 refills. 1 Each 4 09/17/2023 03/24/2024 Discontinued Start: 09-17-2023 fluticasone-sa lmeterol (WIXELA INHUB) 500-50 mcg/dose dsdv Inhale 1 Puff as instructed two times a day. Please give the patient 1 inhaler with 4 refills. 1 Each 4 09/17/2023 Active Start: 09-17-2023 End: 12-16-2023 fluticasone-salmeterol (WIXE LA INHUB) 500-50 mcg/dose dsdv Inhale 1 Puff as instructed two times a day. Please give the patient 1 inhaler with 4 refills. 1 Each 4 09/17/2023 12/16/2023 Active Start: 05-24-2022 End: 01-05-2023 take 1 puff(s) by mouth twice daily fluticasone-salmeterol (ADVAIR DISKUS) 100-50 mcg/dose inhaler Indications: Cough, unspecified type Inhale 1 Puff as instructed twice daily. Rinse mouth out after use with water. 60 Each 1 05/24/2022 01/05/2023 Discontinued (Discontinued by Patient) Start: 05-24-2022 take 1 puff(s) by mo ut twice daily fluticasone-salmeterol (ADVAIR DISKUS) 100-50 mcg/dose inhaler Indications: Cough, unspecified type Inhale 1 Puff as instructed twice daily. Rinse mouth out after use with water. 60 Each 1 05/24/2022 Active Comment on above: Inhale 1 Puff as ins tructed twice daily. Rinse mouth out after use with water. gabapentin 300 mg oral capsule (20 sources) Anti-epileptic Agent Start: End: take 3 capsules by mouth once daily at bedtime gabapentin (NEURONTIN) 300 mg capsule Indications: Restless leg syndrome Take 3 capsules by mouth daily at bedtime for 90 days. 90 capsule 2 09/01/2024 11/30/2024 Active Start: 03-04-2024 End: 09-25-2024 gabapentin (NEURONTIN) 600 m g tablet Indications: Restless leg syndrome Take one tablet between 2-3 PM daily 30 tablet 2 08/27/2024 Active Start: 12-21-2023 End: 04-02-2024 take 1 capsule by mouth three times daily, then take 1 capsule by mouth three times daily gabapentin (NEURONTIN) 400 mg capsule Take 1 capsule by mouth three times a day for 30 days. Take one capsule three times a day for 30 days 90 capsule 03/03/2024 03/04/2024 Discontinued Start: 06-03-2021 End: 12-21-2023 gabapentin (NEURONTIN) 300 m g capsule Indications: Type 2 diabetes mellitus with peripheral neuropathy (HCC) Take one capsule three times a day for 30 days 90 capsule 2 06/03/2021 10/14/2021 Discontinued Start: 07-15-2020 End: 08-19-2020 gabapentin (NEURONTIN) 300 m g capsule Indications: Type 2 diabetes mellitus with peripheral neuropathy (HCC) Take one capsule three times a day for 30 days 90 capsule 07/15/2020 08/19/2020 Discontinued Comment on above: Take one capsule thr ee times a day for 30 days glimepiride 4 mg oral tablet (20 sources) Sulfonylurea Start: 06-04-19 End: 02-29-20 take 2 tablets by mouth once daily at breakfast glimepiride (AMARYL) 4 mg tablet Indications: Type 2 diabetes mellitus with peripheral neuropathy (HCC) Take 2 tablets by mouth daily with breakfast. 180 tablet 1 09/01/2024 02/28/2025 Active Start: 06-14-2020 End: 12-13-2020 take 2 tablets by mouth once daily at breakfast glimepiride (AMARYL) 4 mg tablet Indications: Type 2 diabetes mellitus with peripheral neuropathy (HCC) Take 2 tablets by mouth daily with breakfast. 180 tablet 1 06/14/2020 12/13/2020 Discontinued Comment on above: Take 2 tablets by [facility] daily with breakfast. hydroCHLOROthiazide 50 mg oral tablet (20 sources) Thiazide Diuretic Start : 04-29 End: 08-14 take 1 tablet by mouth once daily hydroCHLOROthiazide 50 mg tablet Take 1 tablet by mouth once daily. 90 tablet 1 08/14/2024 Active Comment on above: Take 1 tablet by [facility] once daily. lactobacillus acidophilus 460 mg oral capsule (20 sources) Start : 10-18 End: 11-17 take 1 capsule by mouth once daily Lactobacillus acidophilus (FLORAJEN ACIDOPHILUS) 20 billion cell capsule Indications: Cellulitis of skin Take 1 capsule by mouth once daily. 30 capsule 10/18/2022 Active Comment on above: Take 1 capsule by [facility] once daily. LORazepam 1 mg oral tablet (1 source) Benzodiazepine Start : 01-07 End: 01-07 LORazepam (ATIVAN) 1 mg tablet Indications: Claustrophobia Take one tablet 30 minutes prior to MRI 1 tablet 01/08/2024 01/08/2024 Active losartan potassium 100 mg oral tablet (20 sources) Angiotensin 2 Receptor Regan Start : 05-24 End: 02-10 take 1 tablet by mouth once daily losartan (COZAAR) 100 mg tablet Indications: Essential hypertension, benign Take 1 tablet by mouth once daily. 90 tablet 1 08/14/2024 02/10/2025 Active Start: 05-01-2022 End: 05-24-2022 take 1 tablet by mouth once daily losartan (COZAAR) 50 mg tablet Indications: Chronic cough Take 1 tablet by mouth once daily. 30 tablet 1 05/01/2022 05/24/2022 Discontinued Comment on above: Take 1 tablet by oxana th once daily. metFORMIN hydrochloride 1000 mg oral tablet (20 sources) Biguanide Start: End: take 1 tablet by mouth twice daily at mealtime metFORMIN (GLUCOPHAGE) 1,000 mg tablet Indications: Type 2 diabetes mellitus with peripheral neuropathy (HCC) Take 1 tablet by mouth two times a day with meals. . 180 tablet 1 08/18/2024 02/14/2025 Active Start: 03-01-2020 End: 08-24-2020 take 1 tablet by mouth twice daily at mealtime metFORMIN (GLUCOPHAGE) 1,000 mg tablet Indications: Type 2 diabetes mellitus with peripheral neuropathy (HCC) Take 1 tablet by mouth twice daily with meals. . 60 tablet 5 03/01/2020 08/24/2020 Discontinued Comment on above: Take 1 tablet by oxana th twice daily with meals. . Take 1 tablet by oxana th two times a day with meals. . methylPREDNISolone (2 sources) Corticosteroid Start: 2024 End: 2024 methylPREDNISolone (MEDROL DOSE-PACK) 4 mg Dose-Pack Take as instructed per package. 21 tablet 09/01/2024 09/07/2024 Active montelukast 10 mg oral tablet (20 sources) Leukotriene Receptor Antagonist Start: 2023 End: 2024 take 1 tablet by mouth once daily at bedtime montelukast (SINGULAIR) 10 mg tablet TAKE 1 TABLET BY MOUTH EVERYDAY AT BEDTIME 90 tablet 08/04/2024 Active omeprazole 20 mg delayed release oral capsule (18 sources) Proton Pump Inhibitor Start: 2024 End: 2024 take 1 capsule by mouth once daily omeprazole (PRILOSEC) 20 mg capsule Take 1 capsule by mouth once daily. 42 capsule 10/13/2024 Active Start: 08-10-2023 End: 11-08-2023 take 1 capsule by mouth once daily omeprazole (PRILOSEC) 40 mg capsule Indications: Persistent cough for 3 weeks or longer Take 1 capsule by mouth once daily. 30 capsule 2 08/10/2023 08/17/2023 Discontinued pramipexole dihydrochloride 0.25 mg oral tablet (20 sources) Nonergot Dopamine Agonist Start: 05-13-2024 End: 11-12-2024 take 2 tablets by mouth once daily at bedtime pramipexole (MIRAPEX) 0.25 mg tablet Take 2 tablets by mouth daily at bedtime. 180 tablet 1 08/14/2024 11/12/2024 Active Start: 04-09-2024 End: 05-23-2024 take 0.5 tablet by mouth once daily at bedtime, then take 1 tablet by mouth once daily at bedtime, then take 2 tablets by mouth once daily at bedtime pramipexole (MIRAPEX) 0.25 mg tablet Take 0.5 tablets by mouth daily at bedtime for 7 days, THEN 1 tablet daily at bedtime for 7 days, THEN 2 tablets daily at bedtime. 71 tablet 04/09/2024 05/13/2024 Discontinued silver 200 mcg/gram gel (11 sources) Start: 09-11-2024 silver 200 mcg/gram gel Apply to affected area once daily. 90 g 1 09/11/2024 Active silver 32 PPM gel (1 source) Start: 04-20-2023 End: 05-07-2023 silver 32 PPM gel Apply to affected area once daily. 85 g 2 04/20/2023 05/07/2023 Discontinued Comment on above: Apply to affected ar ea once daily. urea 400 mg/ml topical cream (11 sources) Start: 09-11-2024 urea (CARMOL) 40 % Apply to affected area once daily. 198 g 11 09/11/2024 Active vancomycin 125 mg oral capsule (3 sources) Glycopeptide Antibacterial Start: 05-01-2022 End: 05-11-2022 take 1 capsule by mouth four times daily vancomycin (VANCOCIN) 125 mg capsule Indications: C. difficile diarrhea Take 1 capsule by mouth four times daily for 10 days. 40 capsule 0 05/01/2022 05/11/2022 Active Comment on above: Take 1 capsule by [facility] four times daily for 10 days. Completed/Discontinued Medications Medication Drug Class(es) Dates Sig (Normalized) Sig (Original) ALPRAZolam 0.25 mg oral tablet (10 sources) Benzodiazepine Start: 04-17-2022 End: 06-15-2022 ALPRAZolam (XANAX) 0.25 mg tablet Indications: Anxiety Take 1-2 tablets PO about [address] scan. 2 tablet 0 04/17/2022 06/15/2022 Comment on above: Take 1-2 tablets PO about [address] scan[address] famotidine 20 mg oral tablet (20 sources) Histamine-2 Receptor Antagonist Start: 03-17-2021 End: 01-05-2023 take 1 tablet by mouth twice daily famotidine (PEPCID) 20 mg tablet Take 1 tablet by mouth twice daily. 180 tablet 1 03/17/2021 01/05/2023 Discontinued (Course of therapy completed) Start: 03-18-2020 End: 09-08-2020 take 1 tablet by mouth twice daily famotidine (PEPCID) 20 mg tablet Take 1 tablet by mouth twice daily. 60 tablet 5 03/18/2020 09/08/2020 Discontinued Comment on above: Take 1 tablet by oxana twice daily. fluticasone propionate 0.05 mg/actuat metered dose nasal spray (20 sources) Corticosteroid Start: End: take 2 spray(s) by mouth once daily fluticasone (FLONASE) 50 mcg/actuation nasal spray Indications: Persistent cough for 3 weeks or longer Use 2 Sprays in each nostril once daily. Rinse mouth after use. 1 Each 2 08/10/2023 08/17/2023 Discontinued Start: 03-22-2022 End: 01-05-2023 take 2 spray(s) by mouth once daily fluticasone (FLONASE) 50 mcg/actuation nasal spray Indications: Bacterial sinusitis Use 2 Sprays in each nostril once daily. Rinse mouth after use. 1 Each 03/22/2022 01/05/2023 Discontinued (Course of therapy completed) Start: 02-22-2022 take 2 spray(s) by out once daily fluticasone (FLONASE) 50 mcg/actuation nasal spray Indications: Bacterial sinusitis Use 2 Sprays in each nostril once daily. Rinse mouth after use. 1 Each 0 02/22/2022 Active Comment on above: Use 2 Sprays in each nostril once daily. Rinse mouth after use. iv contrast (will be provided with radiology test) (3 sources) Start: 04-10-19 End: 04-11-19 inject 1 dose intravenously once iv contrast (will be provided with radiology test) CTA Head WO/W IVCON No IV access, insert saline lock prior to the sedation, infusion, injection for imaging exam. Discontinue saline lock post exam. If Pt. has a central line or IVAD, may access for administration according to line specific nursing protocol. Once exam is complete flush line and de-access according to line specific nursing protocol in the CT contrast administration guidelines link. 1 Each 04/10/2022 04/11/2022 Start: 04-10-2022 End: 04-11-2022 inject 1 dose intravenously once iv contrast (will be provided with radiology test) CTA Head WO/W IVCON No IV access, insert saline lock prior to the sedation, infusion, injection for imaging exam. Discontinue saline lock post exam. If Pt. has a central line or IVAD, may access for administration according to line specific nursing protocol. Once exam is complete flush line and de-access according to line specific nursing protocol in the CT contrast administration guidelines link. 1 Each 0 04/10/2022 04/11/2022 Active Comment on above: CTA Head WO/W IVCON No IV access, insert saline lock prior to the sedation, infusion, injection for imaging exam. Discontinue saline lock post exam. If Pt. has a central line or IVAD, may access for administration according to line specific nursing protocol. Once exam is complete flush line and de-access according to line specific nursing protocol in the CT contrast administration guidelines link. lisinopril 40 mg oral tablet (20 sources) Angiotensin Converting Enzyme Inhibitor Start: End: 3 take 1 tablet by mouth once daily lisinopril (ZESTRIL, PRINIVIL) 40 mg tablet Indications: Hypertension, essential , Type 2 diabetes mellitus with microalbuminuria, unspecified whether intermediate manager insulin use Take 1 tablet by mouth once daily. 90 tablet 1 03/17/2021 09/05/2021 Discontinued Start: 03-22-2020 End: 09-08-2020 take 1 tablet by mouth once daily lisinopril (ZESTRIL, PRINIVIL) 40 mg tablet Indications: Hypertension, essential , Type 2 diabetes mellitus with microalbuminuria, unspecified whether [facility] insulin use Take 1 tablet by mouth once daily. 90 tablet 1 03/22/2020 09/08/2020 Discontinued Comment on above: Take 1 tablet by oxana once daily. metroNIDAZOLE 500 mg oral tablet (4 sources) Nitroimidazole Antimicrobial Start: End: take 1 tablet by mouth three times daily metroNIDAZOLE (FLAGYL) 500 mg tablet Take 1 tablet by mouth three times daily for 10 days. 30 tablet 0 04/11/2022 04/21/2022 Comment on above: Take 1 tablet by oxana three times daily for 10 days. naproxen 500 mg oral tablet (9 sources) Nonsteroidal Anti-inflammatory Drug Start: End: take 1 tablet by mouth twice daily at mealtime naproxen (NAPROSYN) 500 mg tablet Indications: Foot pain, right Take 1 tablet by mouth twice daily. Take with food. 14 tablet 10/20/2022 01/05/2023 Discontinued (Course of therapy completed) Comment on above: Take 1 tablet by oxana twice daily. Take with food. nystatin [id number] unt/ml oral suspension (20 sources) Polyene Antifungal Start: End: nystatin (MYCOSTATIN) 100,000 unit/mL suspension Take 5 mL by mouth four times daily. 1tsp swish in mouth for several minutes, then swallow (or expectorate) 4 times daily until gone. 200 mL 04/09/2022 01/05/2023 Discontinued (Course of therapy completed) Comment on above: Take 5 mL by mouth f our times daily. 1tsp swish in mouth for several minutes, then swallow (or expectorate) 4 times daily until gone. pentoxifylline 400 mg extended release oral tablet (20 sources) Blood Viscosity Developer Programmer Analyst Start: End: take 1 tablet by mouth three times daily at mealtime pentoxifylline ER (TRENTAL) 400 mg CR tablet Indications: Claudication Take 1 tablet by mouth three times daily with meals. 90 tablet 1 09/02/2019 10/14/2024 Discontinued Comment on above: Take 1 tablet by oxana th three times daily with meals. perflutren lipid microspheres 1.3 mL in NaCl (PF) 0.9% 10 mL injection (DEFINITY) (8 sources) Start: 021 End: perflutren lipid microspheres 1.3 mL in NaCl (PF) 0.9% 10 mL injection (DEFINITY) rOPINIRole 4 mg oral tablet (20 sources) Nonergot Dopamine Agonist Start: 024 End: 025 take 1 tablet by mouth once daily at bedtime rOPINIRole (REQUIP) 4 mg tablet Take 1 tablet by mouth daily at bedtime. 90 tablet 2 09/18/2023 04/09/2024 Discontinued (Course of therapy completed) Start: 01-05-2023 take 1 tablet by oxana th once daily at bedtime rOPINIRole (REQUIP) 4 mg tablet Take 1 tablet by mouth daily at bedtime. 30 tablet 1 01/05/2023 Active Start: 11-20-2022 End: 05-19-2023 take 1 tablet by mouth once daily at bedtime rOPINIRole 3 mg tablet Indications: Restless leg syndrome Take 1 tablet by mouth daily at bedtime. 90 tablet 1 11/20/2022 01/05/2023 Discontinued Start: 11-03-2021 End: 11-28-2022 take 1 tablet by mouth once daily at bedtime rOPINIRole (REQUIP) 2 mg tablet Indications: Restless leg syndrome Take 1 tablet by mouth daily at bedtime. 90 tablet 1 11/03/2021 06/01/2022 Discontinued Start: 07-18-2021 End: 04-12-2022 take 1 tablet by mouth once daily at bedtime rOPINIRole (REQUIP) 1 mg tablet Indications: Restless leg syndrome Take 1 tablet by mouth daily at bedtime. 90 tablet 1 07/18/2021 10/14/2021 Discontinued Start: 07-04-2021 take 1 tablet by oxana th once daily at bedtime rOPINIRole (REQUIP) 1 mg tablet Indications: Restless leg syndrome Take 1 tablet by mouth daily at bedtime. 0 07/04/2021 Active Start: 05-12-2021 End: 07-04-2021 take 1 tablet by mouth once daily at bedtime rOPINIRole (REQUIP) 0.5 mg tablet Take 1 tablet by mouth daily at bedtime. 90 tablet 0 05/12/2021 07/04/2021 Discontinued Start: 05-03-2020 End: 08-05-2020 take 1 tablet by mouth once daily at bedtime rOPINIRole (REQUIP) 0.5 mg tablet Take 1 tablet by mouth daily at bedtime. 90 tablet 05/03/2020 08/05/2020 Discontinued Comment on above: Take 1 tablet by oxana th daily at bedtime. SILVASORB GlER (20 sources) Start: 05-19-2023 End: 02-06-2024 SILVASORB GlER APPLY TOPICALLY TO AFFECTED AREA EVERY DAY 89 mL 2 05/19/2023 02/06/2024 Discontinued Start: 05-19-2023 SILVASORB GlER APPLY TOPICALLY TO AFFECTED AREA EVERY DAY 89 mL 2 05/19/2023 Active Start: 05-07-2023 End: 05-19-2023 SILVASORB GlER APPLY TO AFFE CTED AREA EVERY DAY 89 mL 2 05/07/2023 05/19/2023 Discontinued Start: 05-07-2023 SILVASORB GlER APPLY TO AFFECTED AREA EVERY DAY 89 mL 2 05/07/2023 Active Comment on above: APPLY TO AFFECTED AR EA EVERY DAY APPLY TOPICALLY TO A FFECTED AREA EVERY DAY 125 ml sodium chloride 9 mg/ml prefilled syringe (8 sources) Start: 06-11-2020 End: 09-10-2021 sodium chloride 0.9 % (flush) 10 mL (BD POSIFLUSH) tiZANidine 2 mg oral tablet (20 sources) Central alpha-2 Adrenergic Agonist Start: 04-25-2024 End: 04-25-2024 tiZANidine (ZANAFLEX) 2 mg tablet Indications: Muscle spasms of both lower extremities Take 1-2 tablets at bedtime as needed for muscle spasms 60 tablet 1 04/25/2024 04/25/2024 Discontinued (Course of therapy completed) Start: 12-05-2023 End: 04-09-2024 tiZANidine (ZANAFLEX) 2 mg t ablet Indications: Muscle spasms of both lower extremities Take 1-2 tablets at bedtime as needed for muscle spasms 60 tablet 1 03/25/2024 04/09/2024 Discontinued (Course of therapy completed) traZODone hydrochloride 50 mg oral tablet (9 sources) Serotonin Reuptake Inhibitor Start: 07-08-2024 End: 10-06-2024 take 1 tablet by mouth once daily at bedtime traZODone (DESYREL) 50 mg tablet Take 1 tablet by mouth daily at bedtime. 30 tablet 2 07/08/2024 07/21/2024 Discontinued (Course of therapy completed) Problems Active Problems Problem Classification Problem Date Documented Da te Episodic/Chronic Abdominal pain (2 sources) Right inguinal pain; Translations: [Right lower quadrant pain] Episodic Acquired foot deformities (1 source) Hammer toe; Translations: [Other hammer toe(s) (acquired), left foot] 07-23-2023 Chronic Administrative/social admission (1 source) Financial problem; Translations: [Problem related to housing and economic circumstances, unspecified] Episodic Allergic reactions (2 sources) H/O: non-drug allergy; Translations: [Other allergy status, other than to drugs and biological substances] Onset: 4 09-17-2023 Episodic Anxiety disorders (3 sources) Anxiety; Translations: [Anxiety disorder, unspecified] Onset: 4 Chronic Asthma (2 sources) Mild intermittent asthma; Translations: [Mild intermittent asthma, uncomplicated] Onset: 4 09-17-2023 Chronic Cardiac dysrhythmias (20 sources) Premature atrial contraction; Translations: [Atrial premature depolarization] Onset: 1 02-21-2021 Chronic Cardiac dysrhythmias (1 source) Bradycardia; Translations: [Bradycardia, unspecified] 08-10-2023 Episodic Chronic kidney disease (3 sources) Chronic kidney disease stage 3A ; Translations: [Stage 3a chronic kidney disease (HCC)] 07-09-2024 Chronic Chronic kidney disease (1 source) Chronic kidney disease; Translations: [Stage 3a chronic kidney disease (HCC)] Onset: 5 Chronic ulcer of skin (2 sources) Non-pressure chronic ulcer of other part of left foot limited to breakdown of skin; Translations: [Ulcer of other part of foot] Onset: 5 05-10-2023 Chronic Coma; stupor; and brain damage (3 sources) Daytime somnolence; Translations: [Somnolence] Onset: 5 02-13-2024 Episodic Deficiency and other anemia (1 source) Increased hemoglobin; Translations: [Other hemoglobinopathies] 08-13-2023 Chronic Diabetes mellitus with complications (20 sources) Type 2 diabetes mellitus; Translations: [Type 2 diabetes mellitus with diabetic polyneuropathy] Onset: 6 Resolved: 1 05-20-2018 Chronic Disorders of lipid metabolism (20 sources) Hyperlipidemia; Translations: [Hyperlipidemia, unspecified] Onset: 9 05-26-2018 Chronic Esophageal disorders (20 sources) Gastroesophageal reflux disease; Translations: [Gastro-esophageal reflux disease without esophagitis] Onset: 9 01-10-2019 Chronic Essential hypertension (20 sources) Benign essential hypertension; Translations: [Essential (primary) hypertension] Onset: 9 01-10-2019 Chronic Fluid and electrolyte disorders (1 source) Hyperkalemia; Translations: [Hyperkalemia] Episodic Headache; including migraine (2 sources) Thunderclap headache; Translations: [Primary thunderclap headache] Episodic Intestinal infection (1 source) Clostridium difficile diarrhea; Translations: [Enterocolitis due to Clostridium difficile, not specified as recurrent] Episodic Miscellaneous mental health disorders (1 source) Psychophysiologic insomnia; Translations: [Chronic insomnia] Onset: 5 Chronic Mycoses (10 sources) Onychomycosis; Translations: [Tinea unguium] Onset: 5 Episodic Other circulatory disease (2 sources) Abnormal chest sounds; Translations: [Other specified symptoms and signs involving the circulatory and respiratory systems] 07-16-2024 Episodic Other connective tissue disease (9 sources) Pain of toe of right foot; Translations: [Pain in right toe(s)] Episodic Other connective tissue disease (9 sources) Pain of toe of left foot; Translations: [Pain in left toe(s)] Episodic Other connective tissue disease (1 source) Foot swelling; Translations: [Other specified soft tissue disorders] 10-18-2022 Episodic Other connective tissue disease (6 sources) Spasm; Translations: [Other muscle spasm] 12-05-2023 Episodic Other connective tissue disease (1 source) Pain in right lower limb; Translations: [Pain in right leg] 07-15-2020 Episodic Other connective tissue disease (1 source) Swelling of lower limb; Translations: [Other specified soft tissue disorders] 07-16-2024 Episodic Other connective tissue disease (1 source) Pain in left toe(s); Translations: [Pain in toe of left foot] Onset: 5 Episodic Other connective tissue disease (1 source) Pain in right toe(s); Translations: [Pain in toe of right foot] Onset: Episodic Other gastrointestinal disorders (1 source) Diarrhea; Translations: [Diarrhea, unspecified] Episodic Other hereditary and degenerative nervous system conditions (20 sources) Restless legs; Translations: [Restless legs syndrome] 08-08-2019 Chronic Other hereditary and degenerative nervous system conditions (1 source) Restless legs syndrome; Translations: [Restless leg syndrome] Onset: 0 Chronic Other lower respiratory disease (7 sources) Chronic cough; Translations: [Chronic cough] Onset: Episodic Other lower respiratory disease (1 source) Cough; Translations: [Cough, unspecified type] Episodic Other lower respiratory disease (2 sources) Decreased breath sounds; Translations: [Other abnormalities of breathing] 11-20-2022 Episodic Other lower respiratory disease (6 sources) Persistent cough; Translations: [Persistent cough for 3 weeks or longer] 08-10-2023 Episodic Other lower respiratory disease (6 sources) Restrictive lung disease; Translations: [Other disorders of lung] 08-28-2023 Episodic Other lower respiratory disease (2 sources) Snoring; Translations: [Snoring] 02-13-2024 Episodic Other lower respiratory disease (1 source) Snoring; Translations: [Snoring] Onset: Episodic Other nervous system disorders (1 source) Loss of taste; Translations: [Parageusia] 12-05-2023 Episodic Other non-traumatic joint disorders (2 sources) Charcot's arthropathy; Translations: [Charcot's joint, right ankle and foot] 11-07-2022 Chronic Other non-traumatic joint disorders (2 sources) Chronic ankle pain; Translations: [Pain in right ankle and joints of right foot] 03-10-2024 Episodic Other nutritional; endocrine; and metabolic disorders (20 sources) Obesity; Translations: [Obesity, unspecified] Onset: 9 06-11-2020 Chronic Other nutritional; endocrine; and metabolic disorders (1 source) Other obesity due to excess calories; Translations: [Class 1 obesity due to excess calories with serious comorbidity and body mass index (BMI) of 33.0 to 33.9 in adult] Onset: 1 Chronic Other nutritional; endocrine; and metabolic disorders (1 source) Body mass index (BMI) 33.0-33.9, adult; Translations: [Class 1 obesity due to excess calories with serious comorbidity and body mass index (BMI) of 33.0 to 33.9 in adult] Onset: 1 Chronic Other screening for suspected conditions (not mental disorders or infectious disease) (6 sources) Pulmonary function studies abnormal; Translations: [Abnormal results of pulmonary function studies] Onset: 5 Episodic Other skin disorders (1 source) Seborrheic keratosis; Translations: [Other seborrheic keratosis] Episodic Other skin disorders (4 sources) Keratosis; Translations: [Epidermal thickening, unspecified] Episodic Other skin disorders (2 sources) Skin lesion; Translations: [Disorder of the skin and subcutaneous tissue, unspecified] 07-09-2024 Episodic Other upper respiratory disease (1 source) Nasal sinus problem; Translations: [Other specified disorders of nose and nasal sinuses] Episodic Other upper respiratory disease (1 source) Other specified disorders of nose and nasal sinuses; Translations: [Other disease of nasal cavity and sinuses] 07-04-2023 Episodic Other upper respiratory infections (5 sources) Bacterial sinusitis; Translations: [Chronic sinusitis, unspecified] Chronic Other upper respiratory infections (3 sources) Pharyngitis; Translations: [Acute pharyngitis, unspecified] Episodic Peripheral and visceral atherosclerosis (20 sources) Peripheral vascular disease, unspecified; Translations: [Peripheral vascular disease, unspecified] Onset: 6 03-29-2021 Chronic Residual codes; unclassified (1 source) Obstructive sleep apnea syndrome; Translations: [Obstructive sleep apnea (adult) (pediatric)] 09-17-2023 Chronic Residual codes; unclassified (1 source) Disturbance in sleep behavior; Translations: [Sleep disorder, unspecified] 07-08-2024 Episodic Residual codes; unclassified (1 source) Tobacco use; Translations: [Tobacco use] Onset: 5 Episodic Skin and subcutaneous tissue infections (4 sources) Cellulitis of skin; Translations: [Cellulitis, unspecified] Onset: 5 10-18-2022 Episodic Substance-related disorders (20 sources) Tobacco user; Translations: [Nicotine dependence, unspecified, uncomplicated] Onset: 9 06-25-2018 Chronic Unclassified (1 source) Class 1 obesity due to excess calories with serious comorbidity and body mass index (BMI) of 33.0 to 33.9 in adult; Translations: [Class 1 obesity due to excess calories with serious comorbidity and body mass index (BMI) of 33.0 to 33.9 in adult] Onset: 1 Past or Other Problems Problem Classification Problem Date Documented Date Episodic/Chronic Acute and unspecified renal failure (20 sources) Acute renal failure syndrome; Translations: [Acute kidney failure, unspecified] Onset: 12-28-2015 Resolved: 05-26-2018 03-29-2021 Episodic Complication of device; implant or graft (20 sources) Vascular disorder of lower extremity; Translations: [Other specified complication of vascular prosthetic devices, implants and grafts, initial encounter] Onset: 05-09-2017 Resolved: 05-26-2018 05-26-2018 Chronic Complications of surgical procedures or medical care (20 sources) Postoperative wound infection; Translations: [Infection following a procedure, other surgical site, initial encounter] Onset: 12-21-2015 Resolved: 05-26-2018 03-29-2021 Episodic Conditions associated with dizziness or vertigo (20 sources) Benign paroxysmal positional vertigo; Translations: [Benign paroxysmal vertigo, right ear] Onset: 09-06-2020 09-06-2020 Episodic Immunizations and screening for infectious disease (2 sources) Patient encounter status; Translations: [Encounter for immunization] Onset: 07-08-2024 07-08-2024 Episodic Nutritional deficiencies (20 sources) Undernutrition; Translations: [Mild protein-calorie malnutrition] Onset: 12-09-2015 Resolved: 05-26-2018 05-26-2018 Chronic Open wounds of head; neck; and trunk (20 sources) Disorder of inguinal region; Translations: [Unspecified open wound of abdominal wall, unspecified quadrant without penetration into peritoneal cavity, initial encounter] Onset: 12-21-2015 Resolved: 05-26-2018 05-26-2018 Episodic Other circulatory disease (20 sources) Lower limb ischemia; Translations: [Other disorder of circulatory system] Onset: 12-03-2015 Resolved: 05-26-2018 05-26-2018 Episodic Other circulatory disease (1 source) Other specified symptoms and signs involving the circulatory and respiratory systems; Translations: [Abnormal lung sounds] Onset: 07-16-2024 Episodic Other connective tissue disease (20 sources) Pain in right foot; Translations: [Pain in right foot] Onset: 01-10-2019 01-10-2019 Episodic Other connective tissue disease (1 source) Other specified soft tissue disorders; Translations: [Leg swelling] Onset: 07-16-2024 Episodic Other connective tissue disease (1 source) Other muscle spasm; Translations: [Muscle spasms of both lower extremities] Onset: 12-05-2023 Episodic Other lower respiratory disease (2 sources) Productive cough ; Translations: [Productive cough] Onset: 07-08-2024 07-08-2024 Episodic Other lower respiratory disease (1 source) Other disorders of lung; Translations: [Restrictive lung disease] Onset: 01-08-2024 Episodic Other nervous system disorders (20 sources) Neuralgia of nerve of right lower limb; Translations: [Other specified mononeuropathies of right lower limb] Onset: 02-15-2017 Resolved: 05-26-2018 05-26-2018 Chronic Other nervous system disorders (20 sources) Abnormal gait; Translations: [Unspecified abnormalities of gait and mobility] Onset: 04-18-2016 04-18-2016 Episodic Other nervous system disorders (1 source) Parageusia; Translations: [Loss of taste] Onset: 12-05-2023 Episodic Other skin disorders (20 sources) Foot callus; Translations: [Corns and callosities] Onset: 05-26-2018 05-26-2018 Episodic Other skin disorders (1 source) Corns and callosities; Translations: [Callus of foot] Onset: 05-26-2018 Episodic Other skin disorders (1 source) Disorder of the skin and subcutaneous tissue, unspecified; Translations: [Skin lesion] Onset: 07-08-2024 Episodic Residual codes; unclassified (20 sources) Tobacco use and exposure - finding; Translations: [Tobacco use] Resolved: 06-09-2020 06-09-2020 Episodic Residual codes; unclassified (1 source) Sleep disorder, unspecified; Translations: [Sleep disturbance] Onset: 07-08-2024 Episodic Spondylosis; intervertebral disc disorders; other back problems (20 sources) Sciatica; Translations: [Sciatica, right side] Onset: 09-06-2020 09-06-2020 Episodic Results Test Name Value Interpretation Reference Range Facility OV 10-14-2024 CNOV Office Visit (PODIWS ) -------- JOSHUA ESTES ([id number]) 1955 M Date Time Provider Department 10/14/24 8:45 AM [facility] PODIWS During your visit today, we recorded the following information about you: Bekah Flynn LPN 10/14/2024 1:04 PM Signed AMB ROOMING INTAKE FLOWSHEET DATA Pain Pain Level: 4 Pain Location: Toe Description: Sharp Duration Amount of Time: 4 Duration Units: Days Frequency: Intermittent Intervention/Comfort measure: Reposition, Relaxation Patient presents with: Left Great Toe - Established Patient, Follow Up, Diabetic Foot Ulcer, Pain Patient present to office for diabetic great toe ulcer. [place] Patient [place] of walking and did not have shoes on. Patient states that he started to have increasing pain 4 days ago. Patient present to office with no dressing applied. NOEMY Berry Matthew 10/14/2024 9:22 AM Signed - Obtain a stat X-ray of your left big toe before leaving the clinic to check for bone involvement. - A wound culture was taken today; we will review the results to guide antibiotic therapy. - Go to the Emergency Department today or tomorrow for admission, IV antibiotics, and a vascular evaluation. The preferred location is [facility] (with Dr. Jean), but you may also use [facility] or [facility] if [facility] is not feasible, but this provider does not do inpatient care at [place] or [place]. - If you cannot get to the hospital today or tomorrow, start Augmentin as prescribed for 7 days. - Clean the wound on your left big toe daily with soap and water, then dry it thoroughly. - Apply Betadine to the top of the wound and place Aquacel on the bottom as directed. - Wear the provided surgical off-loading shoe at all times to keep pressure off the ulcer and aid healing. - you are at risk of partial or complete toe amputation Bekah Flynn LPN 10/14/2024 1:04 PM Signed Per Joshua Phan wound to left great toe was dressed with iodine to top of the wound and Aquacel to bottom of wound. Patient was offered post op shoe with offloading shoe. Patient states he has one from a few weeks ago. instructed/educated in its application, wear, and care. All questions were answered, and patient was able to demonstrate competence with the necessary skills to utilize the above equipment. Reiterated to patient that it is highly recommend to present to ED. Patient verbalized understanding. NOEMY Berry Matthew 10/14/2024 1:04 PM Signed Subjective Russ Sharp Franklyn is a 69-year-old male with a history of diabetes and vascular disease, presenting for evaluation of left great toe cellulitis. Left Great Toe Cellulitis: - Onset last week after returning from vacation. - Recent vacation involved walking barefoot on sand in [place], [place], and [place], [place]. - Noticed swelling and redness in the left great toe upon returning home. - Denies known trauma or blistering from hot sand. - History of a sore on the left great toe, appeared healed by September 18, with only a little dryness remaining - [id number] noted a hole in the bottom of the toe. Musculoskeletal: (+) left foot swelling, (+) difficulty walking, (-) foot blister PAST MEDICAL HISTORY Diagnosis Date Aneurysm right common femoral artery. Dr. Ordoñez Colon polyps 08/2018 benign, repeat in 10 years Diabetes mellitus, type II (HCC) Diabetic ulcer of toe of right foot (HCC) DVT (deep venous thrombosis) (HCC) GERD (gastroesophageal reflux disease) Hyperlipidemia Hypertension Obesity PAC (premature atrial contraction) Peripheral arterial disease Restless leg syndrome Snoring Tobacco use Current Outpatient Medications Medication Sig Dispense Refill amoxicillin-clavulanate potassium (AUGMENTIN) 875-125 mg per tablet Take 1 tablet by mouth two times a day for 7 days. 14 tablet 0 ciprofloxacin HCl (CIPRO) 500 mg tablet Take 1 tablet by mouth two times a day for 7 days. FOR 7 DAYS. 14 tablet 0 omeprazole (PRILOSEC) 20 mg capsule Take 1 capsule by mouth once daily. 42 capsule 0 CPAP/BIPAP/OTHER Type .CPAPSettings into a note to see current settings/supplies/DME information. 1 each 0 ferrous sulfate 325 mg (65 mg iron) tablet Take 1 tablet by mouth once daily. 90 tablet 1 albuterol HFA (VENTOLIN HFA) 90 mcg/actuation inhaler Inhale 2 puffs as instructed every 4 hours as needed for wheezing/shortness of breath. 18 g 1 urea (CARMOL) 40 % Apply to affected area once daily. 198 g 11 silver 200 mcg/gram gel Apply to affected area once daily. 90 g 1 glimepiride (AMARYL) 4 mg tablet Take 2 tablets by mouth daily with breakfast. 180 tablet 1 gabapentin (NEURONTIN) 300 mg capsule Take 3 capsules by mouth daily at bedtime for 90 days. 90 capsule 2 gabapentin (more content not included)... Normal [facility] XR TOE 3V AP/LAT/OBL LTon XR TOE 3V AP/LAT/OBL LT * * *Final Report* * * DATE OF EXAM: Oct 14 2024 9:47AM [id number] - XR TOE 3V AP/LAT/OBL LT / PROCEDURE REASON: multiple diagnoses * * * * Physician Interpretation * * * * TITLE: XR TOE 3V AP/LAT/OBL LT CLINICAL INDICATION: Diabetic ulcer TECHNIQUE: 3 view radiographic study of the left great toe COMPARISON: Left foot radiograph dated 09/11/2024 FINDINGS: No soft tissue gas or radiopaque foreign body. There is suggestion of mild cortical irregularity of the medial and proximal aspect of the first distal phalanx which raises suspicion for the possibility of early developing osteomyelitis. Mild first carpal metacarpal and first interphalangeal joint degenerative changes with mild hypertrophic change. IMPRESSION: Findings suspicious for developing osteomyelitis in the first distal phalanx as described. Further evaluation with MRI may BE obtained as clinically indicated. 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[facility] Transcribe Date/Time: Oct 14 2024 9:49A Dictated by : ALEXANDREA BELLE MD This examination was interpreted and the report reviewed and electronically signed by: ALEXANDREA BELLE MD on Oct 14 2024 9:59AM EST [id number] Normal [facility] XR Toes - left 3 Viewson IMPRESSION: Findings suspicious for developing osteomyelitis in the first distal phalanx as described. Further evaluation with MRI may BE obtained as clinically indicated. 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[facility] Transcribe Date/Time: Oct 14 2024 9:49A Dictated by : ALEXANDREA BELLE MD This examination was interpreted and the report reviewed and electronically signed by: ALEXANDREA BELLE MD on Oct 14 2024 9:59AM EST DIVISION OF RADIOLOGY * * *Final Report* * * DATE OF EXAM: Oct 14 2024 9:47AM [id number] - XR TOE 3V AP/LAT/OBL LT / PROCEDURE REASON: multiple diagnoses * * * * Physician Interpretation * * * * TITLE: XR TOE 3V AP/LAT/OBL LT CLINICAL INDICATION: Diabetic ulcer TECHNIQUE: 3 view radiographic study of the left great toe COMPARISON: Left foot radiograph dated 09/11/2024 FINDINGS: No soft tissue gas or radiopaque foreign body. There is suggestion of mild cortical irregularity of the medial and proximal aspect of the first distal phalanx which raises suspicion for the possibility of early developing osteomyelitis. Mild first carpal metacarpal and first interphalangeal joint degenerative changes with mild hypertrophic change. DIVISION OF RADIOLOGY Provider, [facility] - 10/14/2024 * * *Final Report* * * DATE OF EXAM: Oct 14 2024 9:47AM [id number] - XR TOE 3V AP/LAT/OBL LT / PROCEDURE REASON: multiple diagnoses * * * * Physician Interpretation * * * * TITLE: XR TOE 3V AP/LAT/OBL LT CLINICAL INDICATION: Diabetic ulcer TECHNIQUE: 3 view radiographic study of the left great toe COMPARISON: Left foot radiograph dated 09/11/2024 FINDINGS: No soft tissue gas or radiopaque foreign body. There is suggestion of mild cortical irregularity of the medial and proximal aspect of the first distal phalanx which raises suspicion for the possibility of early developing osteomyelitis. Mild first carpal metacarpal and first interphalangeal joint degenerative changes with mild hypertrophic change. IMPRESSION IMPRESSION: Findings suspicious for developing osteomyelitis in the first distal phalanx as described. Further evaluation with MRI may BE obtained as clinically indicated. 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[facility] Transcribe Date/Time: Oct 14 2024 9:49A Dictated by : ALEXANDREA BELLE MD This examination was interpreted and the report reviewed and electronically signed by: ALEXANDREA BELLE MD on Oct 14 2024 9:59AM EST [facility] Radiology Study observation (narrative) [facility] XR Toes - left 3 ViewsOrdere d By: [facility] Provider on 10-14-2024 [facility] CNOVon 09-18-2024 CNOV Office Visit (PODIWS ) -------- JOSHUA ESTES ([id number]) 1955 M Date Time Provider Department 09/18/24 8:00 AM RAO HILLMAN PODIWS During your visit today, we recorded the following information about you: Fern Aguilar, RN 09/18/2024 9:00 AM Signed Patient presents with: Left Great Toe - Established Patient, Follow Up, Diabetic Foot Ulcer Patient presents for 1 week follow up diabetic foot ulcer of left great toe. Was able to get the Silver gel filled, but was unable to get the Urea cream filled as it was still too expensive even with his insurance. Has been wearing the post op shoe with offloading insert. SRUTHI 09/11/24 Rao Hillman 09/18/2024 8:20 AM Signed - Continue wound care by applying the silver gel you have to the small area of bleeding once daily for the next 1-2 days. - Moisturize your feet with the Vaseline you have at home once a day. If your feet remain dry, increase to twice daily (morning and evening). After applying, put on socks to mimize falling - Wear your surgical shoe through this weekend (about 3-4 more days), then resume wearing your diabetic shoes starting next week. - Return for follow-up in about 3-4 weeks so we can assess how your feet are healing. Rao Hillman 09/18/2024 9:00 AM Signed Subjective Russ Sharp Franklyn is a 69-year-old male presenting for follow-up of a foot sore. Foot Sore: - Noted improvement in the sore since last week. - History of callus and ulceration on the right foot, previously managed with a procedure to remove bone and reduce pressure. - Recent sore believed to be caused by picking at dry skin. - Applies lotion to feet daily; recently ran out of Kalistick and used a generic brand with less effectiveness. - Has Vaseline at home and plans to use it for moisturizing. - is currently using silver gel. did not get the urea cream due to cost. Skin: (+) skin dryness bilateral feet PAST MEDICAL HISTORY Diagnosis Date Aneurysm right common femoral artery. Dr. Ordoñez Colon polyps 08/2018 benign, repeat in 10 years Diabetes mellitus, type II (HCC) Diabetic ulcer of toe of right foot (HCC) DVT (deep venous thrombosis) (HCC) GERD (gastroesophageal reflux disease) Hyperlipidemia Hypertension Obesity PAC (premature atrial contraction) Peripheral arterial disease Restless leg syndrome Snoring Tobacco use Current Outpatient Medications Medication Sig Dispense Refill albuterol HFA (VENTOLIN HFA) 90 mcg/actuation inhaler Inhale 2 puffs as instructed every 4 hours as needed for wheezing/shortness of breath. 18 g 1 urea (CARMOL) 40 % Apply to affected area once daily. 198 g 11 silver 200 mcg/gram gel Apply to affected area once daily. 90 g 1 omeprazole (PRILOSEC) 20 mg capsule Take 1 capsule by mouth once daily. 42 capsule 0 glimepiride (AMARYL) 4 mg tablet Take 2 tablets by mouth daily with breakfast. 180 tablet 1 gabapentin (NEURONTIN) 300 mg capsule Take 3 capsules by mouth daily at bedtime for 90 days. 90 capsule 2 gabapentin (NEURONTIN) 600 mg tablet Take one tablet between 2-3 PM daily 30 tablet 2 amitriptyline (ELAVIL) 25 mg tablet Take 1 tablet by mouth daily at bedtime. 90 tablet 1 metFORMIN (GLUCOPHAGE) 1,000 mg tablet Take 1 tablet by mouth two times a day with meals. . 180 tablet 1 atorvastatin (LIPITOR) 40 mg tablet Take 1 tablet by mouth once daily. For cholesterol. 90 tablet 1 pramipexole (MIRAPEX) 0.25 mg tablet Take 2 tablets by mouth daily at bedtime. 180 tablet 1 losartan (COZAAR) 100 mg tablet Take 1 tablet by mouth once daily. 90 tablet 1 hydroCHLOROthiazide 50 mg tablet Take 1 tablet by mouth once daily. 90 tablet 1 montelukast (SINGULAIR) 10 mg tablet TAKE 1 TABLET BY MOUTH EVERYDAY AT BEDTIME 90 tablet 0 ferrous sulfate 325 mg (65 mg iron) tablet Take 1 tablet by mouth once daily. 90 tablet 0 empagliflozin (JARDIANCE) 25 mg tablet Take 1 tablet by mouth once daily. Take 1 tablet once daily in the morning 90 tablet 1 fluticasone-salmeterol (ADVAIR) 500-50 mcg/dose dsdv INHALE 1 PUFF INSTRUCTED TWO TIMES A DAY 60 Each 4 blood sugar diagnostic (TRUE METRIX GLUCOSE TEST STRIP) test strip Test once daily DX: E11.42, E11.29 100 Strip 3 Blood Pressure Monitor (BLOOD PRESSURE KIT) 1 Each once daily. 1 Kit 0 pentoxifylline ER (TRENTAL) 400 mg CR tablet Take 1 tablet by mouth three times daily with meals. 90 tablet 1 Blood-Glucose Meter (TRUE METRIX AIR GLUCOSE METER) misc 1 Device twice daily. 1 Each 0 Lancets lancets Test once daily DX: E11.42. E11.29 100 Each 3 insulin needles, DISPOSABLE, (BD INSULIN PEN NEEDLE UF) 31 gauge x 5/16 ndle 1 Each once daily. 100 Each 5 aspirin 81 mg chewable tablet Take 1 tablet by mouth once daily. 0 Lactobacillus acidophilus (FLORAJEN ACIDOPHILUS) 20 billion cell capsule Take 1 capsule by mouth once daily. (Patient not taking: Reported on (more content not included)... Normal [facility] HOME SLEEP APNEA TEST (HSAT) on 09-18-2024 [facility] [address], [address], [place] [address] ; Home Sleep Apnea Test (HSAT) Study Report Name: JOSHUA ESTES Date of Study: 09/18/2024 CC#: [id number] Age: 69 (: 1955) ESS: N/A Neck Circ. (cm): N/A Height (cm): 185.4 Weight (kg): 111.3 BMI: 32.4 Referring Provider: TOBI SORTO Mailcode: [id number] Sleep history: The patient is a 69 year old male with a history of daytime sleepiness and snoring. The patient is here for assessment of obstructive sleep apnea. The patient does not endorse a habitual sleep position. Pertinent medical history: Diabetes, GERD, Hyperlipidemia, Hypertension, Obesity, Restless legs syndrome, PAC Medications: Metformin, Gabapentin, Jardiance, Hydrochlorothiazide, Atorvastatin, Losartan, Omeprazole Sleep procedure: PSG unattended Type III, minimum of 4 parameters (65516) Procedure: This study was performed using a Type III ambulatory PSG device and was unattended. The patient was instructed on proper use of the device by a registered wood technologist. The monitored parameters included heart rate, oxygen saturation, continuous airflow with thermistor and nasal pressure transducer, snoring via nasal pressure transducer, chest and abdominal effort, and body position. JUAN CARLOS definition: Respiratory event index (JUAN CARLOS), calculated as respiratory events x 60 / TRT (total recording time in minutes). Note: the apnea hypopnea index has been replaced by the respiratory event index for home sleep apnea test. Since the home sleep apnea test does not measure sleep, the JUAN CARLOS is most accurate index of respiratory events. The JUAN CARLOS is a surrogate of the AHI per the AASM Manual for Scoring of Sleep and Associated Events version 3. Apnea definition: The peak signal excursions drop by >90% of pre-event baseline using an oronasal thermal sensor (diagnostic study), PAP device flow (titration study) or an alternative apnea sensor (diagnostic study). The duration of the >90% drop in signal excursion is >=10 seconds. Hypopnea definition: The peak signal excursions drop by >= 30% of pre-event baseline using nasal pressure (diagnostic study), PAP device flow (titration study) or an alternative hypopnea sensor (diagnostic study). The duration of the >= 30% drop in signal excursion is >=10 seconds. There is a greater than or equal to 4% oxygen desaturation from pre-event baseline. RESPIRATORY DATA: The study started at 21:10:58 and ended at 02:42:30 and the total recording time was 331 minutes. By convention, sleep is assumed for the whole recording. Snoring was noted. There was a total of 63 respiratory events. Of these events, the total number of apneas was 0 (0 obstructive, 0 mixed, and 0 central (0.0%)) and 63 hypopneas. The central apnea index (NISA) was 0.0. The respiratory event index (JUAN CARLOS) was 11.4 events per hour of study time. The mean oxygen saturation during the study was 84.0%, with a minimum oxygen saturation of 79.0%. The patient spent 151.1 minutes at oxygen saturation measured less than 90% (99.4% of recording time) and 149.9 minutes at oxygen saturation measured at or less than 88% (45.2% of recording time). Time JUAN CARLOS/AHI Supine 1.5 min 0.0 Off-Supine 330.0 min 11.5 Total 331.5 min 11.4 ECG DATA: The average heart rate was 70 bpm with a range of 46 bpm to 91 bpm. ICSD DIAGNOSIS: Obstructive Sleep Apnea Syndrome [G47.33] IMPRESSION/RECOMMENDATIO NS: 1. This study confirms a diagnosis of at least mild obstructive sleep apnea. 2. The results of this study may represent an underestimation of the degree of obstructive sleep apnea, especially hypopneas, because of the known limitations of HSAT, such as inability to record arousals because EEG is not recorded. 3. Treatment of mild sleep apnea can include weight loss, positional therapy, treatment of allergies, oral appliance therapy or ENT evaluation of any airway abnormalities. PAP therapy may be considered in patients with documented symptoms of daytime sleepiness, impaired cognition, mood disorder, insomnia, or documented hypertension, ischemic heart disease, or history of stroke. 4. Hypoxia was noted, even in the absence of respiratory events. It is uncertain if this represents true hypoxia or technical artifact. An in-lab sleep study or nocturnal pulse oximetry may help to clarify whether or not there is true hypoxia. INTERPRETING PHYSICIAN: Татьяна David M.D. I attest that I have performed epoch by epoch review of the entire raw data and find this study to be technically adequate. Report Digitally Signed By: ТАТЬЯНА DAVID MD (09/25/2024 1:04:34 PM) SLEEP LAB No Panel Informationon 09-18 [facility] POLYSOMNOGRAM (PSG)/HOME SLE EP APNEA TEST (HSAT)on 09-18-2024 POLYSOMNOGRAM (PSG)/HOME SLEEP APNEA TEST (HSAT) [facility] at [address], [address], [place] [address] ; Home Sleep Apnea Test (HSAT) Study Report Name: JOSHUA ESTES Date of Study: 09/18/2024 CC#: [id number] Age: 69 (: 1955) ESS: N/A Neck Circ. (cm): N/A Height (cm): 185.4 Weight (kg): 111.3 BMI: 32.4 Referring Provider: TOBI SORTO Mailcode: [id number] Sleep history: The patient is a 69 year old male with a history of daytime sleepiness and snoring. The patient is here for assessment of obstructive sleep apnea. The patient does not endorse a habitual sleep position. Pertinent medical history: Diabetes, GERD, Hyperlipidemia, Hypertension, Obesity, Restless legs syndrome, PAC Medications: Metformin, Gabapentin, Jardiance, Hydrochlorothiazide, Atorvastatin, Losartan, Omeprazole Sleep procedure: PSG unattended Type III, minimum of 4 parameters (35357) Procedure: This study was performed using a Type III ambulatory PSG device and was unattended. The patient was instructed on proper use of the device by a registered wood technologist. The monitored parameters included heart rate, oxygen saturation, continuous airflow with thermistor and nasal pressure transducer, snoring via nasal pressure transducer, chest and abdominal effort, and body position. JUAN CARLOS definition: Respiratory event index (JUAN CARLOS), calculated as respiratory events x 60 / TRT (total recording time in minutes). Note: the apnea hypopnea index has been replaced by the respiratory event index for home sleep apnea test. Since the home sleep apnea test does not measure sleep, the JUAN CARLOS is most accurate index of respiratory events. The JUAN CARLOS is a surrogate of the AHI per the AASM Manual for Scoring of Sleep and Associated Events version 3. Apnea definition: The peak signal excursions drop by >90% of pre-event baseline using an oronasal thermal sensor (diagnostic study), PAP device flow (titration study) or an alternative apnea sensor (diagnostic study). The duration of the >90% drop in signal excursion is >=10 seconds. Hypopnea definition: The peak signal excursions drop by >= 30% of pre-event baseline using nasal pressure (diagnostic study), PAP device flow (titration study) or an alternative hypopnea sensor (diagnostic study). The duration of the >= 30% drop in signal excursion is >=10 seconds. There is a greater than or equal to 4% oxygen desaturation from pre-event baseline. RESPIRATORY DATA: The study started at 21:10:58 and ended at 02:42:30 and the total recording time was 331 minutes. By convention, sleep is assumed for the whole recording. Snoring was noted. There was a total of 63 respiratory events. Of these events, the total number of apneas was 0 (0 obstructive, 0 mixed, and 0 central (0.0%)) and 63 hypopneas. The central apnea index (NISA) was 0.0. The respiratory event index (JUAN CARLOS) was 11.4 events per hour of study time. The mean oxygen saturation during the study was 84.0%, with a minimum oxygen saturation of 79.0%. The patient spent 151.1 minutes at oxygen saturation measured less than 90% (99.4% of recording time) and 149.9 minutes at oxygen saturation measured at or less than 88% (45.2% of recording time). Time JUAN CARLOS/AHI Supine 1.5 min 0.0 Off-Supine 330.0 min 11.5 Total 331.5 min 11.4 ECG DATA: The average heart rate was 70 bpm with a range of 46 bpm to 91 bpm. ICSD DIAGNOSIS: Obstructive Sleep Apnea Syndrome [G47.33] IMPRESSION/RECOMMENDATIO NS: 1. This study confirms a diagnosis of at least mild obstructive sleep apnea. 2. The results of this study may represent an underestimation of the degree of obstructive sleep apnea, especially hypopneas, because of the known limitations of HSAT, such as inability to record arousals because EEG is not recorded. 3. Treatment of mild sleep apnea can include weight loss, positional therapy, treatment of allergies, oral appliance therapy or ENT evaluation of any airway abnormalities. PAP therapy may be considered in patients with documented symptoms of daytime sleepiness, impaired cognition, mood disorder, insomnia, or documented hypertension, ischemic heart disease, or history of stroke. 4. Hypoxia was noted, even in the absence of respiratory events. It is uncertain if this represents true hypoxia or technical artifact. An in-lab sleep study or nocturnal pulse oximetry may help to clarify whether or not there is true hypoxia. INTERPRETING PHYSICIAN: Татьяна David M.D. I attest that I have performed epoch by epoch review of the entire raw data and find this study to be technically adequate. Report Digitally Signed By: ТАТЬЯНА DAVID MD (09/25/2024 1:04:34 PM) Normal [facility] XR Foot - left AP and Latera l and obliqueon 09-17-2024 IMPRESSION: ULCER OF THE DISTAL PHALANX OF THE GREAT TOE ON THE LEFT, NO CHANGE COMPARED TO PREVIOUS EXAM NO RADIOGRAPHIC EVIDENCE OF OSTEOMYELITIS. 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[facility] Transcribe Date/Time: Sep 17 2024 2:39P Dictated by : ARUN BRYANT MD This examination was interpreted and the report reviewed and electronically signed by: ARUN BRYANT MD on Sep 17 2024 2:44PM [facility] DIVISION OF RADIOLOGY * * *Final Report* * * DATE OF EXAM: Sep 11 2024 10:33AM WOX [id number] - XR FOOT 3V AP/LAT/OBL LT / PROCEDURE REASON: multiple diagnoses * * * * Physician Interpretation * * * * HISTORY: 69-YEAR-OLD MALE WITH Diabetic ulcer of toe associated with diabetes mellitus due to underlying condition, with fat layer exposed, unspecified laterality (HCC) Diabetic ulcer of toe associated with diabetes mellitus due to underlying condition, with fat layer exposed, unspecified laterality (HCC) . lac and wound to plantar side of left grt toe for a few weeks TECHNIQUE: XR FOOT 3V AP/LAT/OBL LT Laterality: LEFT Number of different views (projections): 3 COMPARISON: RESULT: Left foot: There is ulceration in the soft tissues of the distal first digit with soft tissue swelling. Alteration extends to the cortex of the tuft of distal phalanx without evidence of osteomyelitis. Enthesophyte at the base of fifth metatarsal. Calcaneal enthesophyte insertion of Achilles tendon and plantar fascia. Calcification in the plantar soft tissue of the foot at the level of the anterior calcaneus may likely within plantar fascia has been present since 2022. Resection arthroplasty at the DIP joint of the first digit of the right foot. DIVISION OF RADIOLOGY Provider, Swapna Ruano [facility] - 09/17/2024 * * *Final Report* * * DATE OF EXAM: Sep 11 2024 10:33AM WOX [id number] - XR FOOT 3V AP/LAT/OBL LT / PROCEDURE REASON: multiple diagnoses * * * * Physician Interpretation * * * * HISTORY: 69-YEAR-OLD MALE WITH Diabetic ulcer of toe associated with diabetes mellitus due to underlying condition, with fat layer exposed, unspecified laterality (HCC) Diabetic ulcer of toe associated with diabetes mellitus due to underlying condition, with fat layer exposed, unspecified laterality (HCC) . lac and wound to plantar side of left grt toe for a few weeks TECHNIQUE: XR FOOT 3V AP/LAT/OBL LT Laterality: LEFT Number of different views (projections): 3 COMPARISON: RESULT: Left foot: There is ulceration in the soft tissues of the distal first digit with soft tissue swelling. Alteration extends to the cortex of the tuft of distal phalanx without evidence of osteomyelitis. Enthesophyte at the base of fifth metatarsal. Calcaneal enthesophyte insertion of Achilles tendon and plantar fascia. Calcification in the plantar soft tissue of the foot at the level of the anterior calcaneus may likely within plantar fascia has been present since 2022. Resection arthroplasty at the DIP joint of the first digit of the right foot. IMPRESSION IMPRESSION: ULCER OF THE DISTAL PHALANX OF THE GREAT TOE ON THE LEFT, NO CHANGE COMPARED TO PREVIOUS EXAM NO RADIOGRAPHIC EVIDENCE OF OSTEOMYELITIS. 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 Transcribe Date/Time: Sep 17 2024 2:39P Dictated by : ARUN BRYANT MD This examination was interpreted and the report reviewed and electronically signed by: ARUN BRYANT MD on Sep 17 2024 2:44PM [facility] XR Foot - left AP and Latera l and obliqueOrdered By: Swapna Provider on 09-17-2024 [facility] CNOVon 09-11-2024 CNOV Office Visit (PODIWS ) -------- JOSHUA ESTES ([id number]) 1955 M Date Time Provider Department 09/11/24 8:30 AM RAO HILLMAN PODIWS During your visit today, we recorded the following information about you: Bekah Flynn LPN 09/18/2024 7:14 AM Signed AMB ROOMING INTAKE FLOWSHEET DATA Patient presents with: Left Foot - Established Patient, Follow Up, Diabetic Foot Care Right Foot - Established Patient, Follow Up, Diabetic Foot Care Left Great Toe - Diabetic Foot Ulcer, Established Patient, Follow Up, Numbness Patient states wound has been present for a few weeks. Rao Hillman 09/11/2024 8:56 AM Signed - Silver Gel has been prescribed at [facility] - apply to the left big toe ulcer once daily. - Nadege 40 Urea Cream has been prescribed at [facility] - apply to callus areas to soften the hard skin. - Wear the provided surgical shoe throughout the day to offload pressure from your left foot. - Keep the ulcer clean and dry; avoid getting it wet in the shower until it heals. - If using a pumice stone or callus file, proceed very gently and avoid going too deep because of reduced sensation. - Obtain the planned foot x-ray and return in two weeks for follow-up to review the results and assess healing. Diabetes Foot Care Instructions When you have [...] (or decreased sensation in your feet) a psychology technician should always cut your toenails. Be Careful [...] with your elbow, not your foot. Do n (more content not included)... Normal [facility] XR FOOT 3V AP/LAT/OBL LTon 0 09-11-2024 XR FOOT 3V AP/LAT/OBL LT * * *Final Report* * * DATE OF EXAM: Sep 11 2024 10:33AM WOX [id number] - XR FOOT 3V AP/LAT/OBL LT / PROCEDURE REASON: multiple diagnoses * * * * Physician Interpretation * * * * HISTORY: 69-YEAR-OLD MALE WITH Diabetic ulcer of toe associated with diabetes mellitus due to underlying condition, with fat layer exposed, unspecified laterality (HCC) Diabetic ulcer of toe associated with diabetes mellitus due to underlying condition, with fat layer exposed, unspecified laterality (HCC) . lac and wound to plantar side of left grt toe for a few weeks TECHNIQUE: XR FOOT 3V AP/LAT/OBL LT Laterality: LEFT Number of different views (projections): 3 COMPARISON: RESULT: Left foot: There is ulceration in the soft tissues of the distal first digit with soft tissue swelling. Alteration extends to the cortex of the tuft of distal phalanx without evidence of osteomyelitis. Enthesophyte at the base of fifth metatarsal. Calcaneal enthesophyte insertion of Achilles tendon and plantar fascia. Calcification in the plantar soft tissue of the foot at the level of the anterior calcaneus may likely within plantar fascia has been present since 2022. Resection arthroplasty at the DIP joint of the first digit of the right foot. IMPRESSION: ULCER OF THE DISTAL PHALANX OF THE GREAT TOE ON THE LEFT, NO CHANGE COMPARED TO PREVIOUS EXAM NO RADIOGRAPHIC EVIDENCE OF OSTEOMYELITIS. 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 Transcribe Date/Time: Sep 17 2024 2:39P Dictated by : ARUN BRYANT MD This examination was interpreted and the report reviewed and electronically signed by: ARUN BRYANT MD on Sep 17 2024 2:44PM EST [id number] Normal [facility] XR Foot - left AP and Latera l and obliqueon 09-11-2024 Radiology Study observation (narrative) [facility] CNOVon 09-04-2024 CNOV Office Visit (REENA ) -------- JOSHUA ESTES ([id number]) 1955 M Date Time Provider Department 09/04/24 8:00 AM AUDREY PACKER During your visit today, we recorded the following information about you: Pulse Respiration Blood pressure Weight 70/minute 18/minute 136/82 109.9 kg Audrey Packer APRN.CNP 09/04/2024 8:15 AM Signed 09/04/2024 Patient presents with: Follow Up: Facial Cellulitis, patient states symptoms improving with the antibiotic Recording using [employer] software for draft documentation of the visit was discussed with the patient/authorized commercial representative; all questions welcomed and answered. Patient/authorized commercial representative agreed to proceed SUBJECTIVE: This is a 69 year old that is here today for Above Complaints.. Facial Swelling: - Significant improvement in lip swelling; scab on chin treated with topical antibiotic. - Denies fevers or chills. - Currently taking prednisone and Medrol Dosepak; 3 days remaining. - Currently taking doxycycline; 4 days remaining. - Unable to identify any dietary changes that may have triggered the swelling. Chronic Cough: - Persistent cough, occasionally productive of clear sputum. - Denies post-nasal drip. - Chest X-ray in July was normal. - Long-term tobacco use. - Denies taking any medication for reflux. PAST MEDICAL HISTORY Diagnosis Date Aneurysm right [...] breakfast. gabapentin (NEURONTIN) 300 mg capsule Take 3 capsules by mouth daily at bedtime for 90 days. doxycycline hyclate (VIBRAMYCIN) 100 mg capsule Take 1 capsule by mouth two times a day for 7 days. methylPREDNISolone (MEDROL DOSE-PACK) 4 mg Dose-Pack Take as instructed per package. gabapentin (NEURONTIN) 600 mg tablet Take one tablet between 2-3 PM daily amitriptyline (ELAVIL) 25 mg tablet Take 1 tablet by mouth daily at bedtime. metFORMIN (GLUCOPHAGE) 1,000 mg tablet Take 1 tablet by mouth two times a day with meals. . atorvastatin (LIPITOR) 40 mg tablet Take 1 tablet by mouth once daily. For cholesterol. pramipexole (MIRAPEX) 0.25 mg tablet Take 2 tablets by mouth daily at bedtime. losartan (COZAAR) 100 mg tablet Take 1 tablet by mouth once daily. hydroCHLOROthiazide 50 mg tablet Take 1 tablet by mouth once daily. montelukast (SINGULAIR) 10 mg tablet TAKE 1 TABLET BY MOUTH EVERYDAY AT BEDTIME ferrous sulfate 325 mg (65 mg iron) tablet Take 1 tablet by mouth once daily. empagliflozin (JARDIANCE) 25 mg tablet Take 1 tablet by mouth once daily. Take 1 tablet once daily in the morning fluticasone-salmeterol (ADVAIR) 500-50 mcg/dose dsdv INHALE 1 PUFF INSTRUCTED TWO TIMES A DAY albuterol HFA (VENTOLIN HFA) 90 mcg/actuation [...] Take 1 tablet by mouth once daily. omeprazole (PRILOSEC) 20 mg capsule Take 1 capsule by mouth once daily. Lactobacillus acidophilus (FLORAJEN [...] and negative other than HPI. OBJECTIVE: BP 136/82 (BP Site: Left Arm, BP Position: Sitting) Pulse 70 Resp 18 Wt 109.9 kg (242 lb 3.2 oz) SpO2 94% BMI 32.85 kg/m? . Vital sign (more content not included)... Normal [facility] CBC W Auto Differential pane l (Bld)on 09-01-2024 Basophils (Bld) [#/Vol] 0.05 10*3/uL [facility] Basophils/100 WBC (Bld) 0.7 % [facility] Differential cell count method Nom (Bld) Auto [facility] Eosinophils (Bld) [#/Vol] 0.42 10*3/uL [facility] Eosinophils/100 WBC (Bld) 5.6 % [facility] Erythrocyte distribution width (RBC) [Ratio] 17.7 % High 11.5 - 15.0 % [facility] Hematocrit (Bld) [Volume fraction] 55.5 % High 39.0 - 51.0 % [facility] Hemoglobin (Bld) [Mass/Vol] 17.9 g/dL High 13.0 - 17.0 g/dL [facility] Immature granulocytes (Bld) [#/Vol] 0.04 10*3/uL [facility] Immature granulocytes/100 WBC (Bld) 0.5 % [facility] Interpretation and review of laboratory results Abnormal [facility] Lymphocytes (Bld) [#/Vol] 1.5 10*3/uL [facility] Lymphocytes/100 WBC (Bld) 19.8 % [facility] MCH (RBC) [Entitic mass] 31.2 pg 26.0 - 34.0 pg [facility] MCHC (RBC) [Mass/Vol] 32.3 g/dL 30.5 - 36.0 g/dL [facility] MCV (RBC) [Entitic vol] 96.9 fL 80.0 - 100.0 fL [facility] Monocytes (Bld) [#/Vol] 0.72 10*3/uL [facility] Monocytes/100 WBC (Bld) 9.5 % [facility] Neutrophils (Bld) [#/Vol] 4.83 10*3/uL [facility] Neutrophils/100 WBC (Bld) 63.9 % [facility] Nucleated RBC (Bld) [#/Vol] [facility] Nucleated RBC/100 WBC (Bld) [Ratio] 0 % /100 WBC [facility] Platelet mean volume (Bld) [Entitic vol] 12 fL 9.0 - 12.7 fL [facility] Platelets (Bld) [#/Vol] 174 10*3/uL [facility] RBC (Bld) [#/Vol] 5.73 10*6/uL 4.20 - 6.0 0 m/uL [facility] WBC (Bld) [#/Vol] 7.56 10*3/uL [facility] Basophils (Bld) [#/Vol] 0.05 10*3/uL Normal <0.11 [facility] Comment on above: Order Comment: Speci men Type: BLOOD SPECIMEN Ordering Facility: [facility] Address: [address] [place] [address] Performed By: #### 5 5454-3 #### [facility] CLIA [id number] [address] [place] [address] [place] Basophils/100 WBC (Bld) 0.7 % Normal [facility] Comment on above: Order Comment: Speci men Type: BLOOD SPECIMEN Ordering Facility: [facility] Address: [address] [place] [address] Performed By: #### 5 5454-3 #### [facility] CLIA [id number] [address] [place] [address] [place] Differential cell count method Nom (Bld) Auto Normal [facility] Comment on above: Order Comment: Speci men Type: BLOOD SPECIMEN Ordering Facility: [facility] Address: [address] [place] [address] Performed By: #### 5 5454-3 #### [facility] CLIA [id number] [address] [place] [address] [place] Eosinophils (Bld) [#/Vol] 0.42 10*3/uL Normal <0.46 [facility] Comment on above: Order Comment: Speci men Type: BLOOD SPECIMEN Ordering Facility: [facility] Address: [address] [place] [address] Performed By: #### 5 5454-3 #### [facility] CLIA [id number] [address] [place] [address] [place] Eosinophils/100 WBC (Bld) 5.6 % Normal [facility] Comment on above: Order Comment: Speci men Type: BLOOD SPECIMEN Ordering Facility: [facility] Address: [address] [place] [address] Performed By: #### 5 5454-3 #### [facility] CLIA [id number] [address] [place] [address] [place] Erythrocyte distribution width (RBC) [Ratio] 17.7 % High 11.5-15.0 [facility] Comment on above: Order Comment: Speci men Type: BLOOD SPECIMEN Ordering Facility: [facility] Address: [address] [place] [address] Performed By: #### 5 5454-3 #### [facility] CLIA [id number] [address] [place] [address] [place] Hematocrit (Bld) [Volume fraction] 55.5 % High 39.0-51.0 [facility] Comment on above: Order Comment: Speci men Type: BLOOD SPECIMEN Ordering Facility: [facility] Address: [address] [place] [address] Performed By: #### 5 5454-3 #### [facility] CLIA [id number] [address] [place] [address] [place] Hemoglobin (Bld) [Mass/Vol] 17.9 g/dL High 13.0-17.0 [facility] Comment on above: Order Comment: Speci men Type: BLOOD SPECIMEN Ordering Facility: [facility] Address: [address] [place] [address] Performed By: #### 5 5454-3 #### [facility] CLIA [id number] [address] [place] [address] [place] Immature granulocytes (Bld) [#/Vol] 0.04 10*3/uL Normal <0.10 [facility] Comment on above: Order Comment: Speci men Type: BLOOD SPECIMEN Ordering Facility: [facility] Address: [address] [place] [address] Performed By: #### 5 5454-3 #### [facility] CLIA [id number] [address] [place] [address] [place] Immature granulocytes/100 WBC (Bld) 0.5 % Normal [facility] Comment on above: Order Comment: Speci men Type: BLOOD SPECIMEN Ordering Facility: [facility] Address: [address] [place] [address] Performed By: #### 5 5454-3 #### [facility] CLIA [id number] [address] [place] [address] [place] Lymphocytes (Bld) [#/Vol] 1.50 10*3/uL Normal 1.00-4.00 [facility] Comment on above: Order Comment: Speci men Type: BLOOD SPECIMEN Ordering Facility: [facility] Address: [address] [place] [address] Performed By: #### 5 5454-3 #### [facility] CLIA [id number] [address] [place] [address] [place] Lymphocytes/100 WBC (Bld) 19.8 % Normal [facility] Comment on above: Order Comment: Speci men Type: BLOOD SPECIMEN Ordering Facility: [facility] Address: [address] [place] [address] Performed By: #### 5 5454-3 #### [facility] CLIA [id number] [address] [place] [address] [place] MCH (RBC) [Entitic mass] 31.2 pg Normal 26.0-34.0 [facility] Comment on above: Order Comment: Speci men Type: BLOOD SPECIMEN Ordering Facility: [facility] Address: [address] [place] [address] Performed By: #### 5 5454-3 #### [facility] CLIA [id number] [address] [place] [address] [place] MCHC (RBC) [Mass/Vol] 32.3 g/dL Normal 30.5-36.0 [facility] Comment on above: Order Comment: Speci men Type: BLOOD SPECIMEN Ordering Facility: [facility] Address: [address] [place] [address] Performed By: #### 5 5454-3 #### [facility] CLIA [id number] [address] [place] [address] [place] MCV (RBC) [Entitic vol] 96.9 fL Normal 80.0-100.0 [facility] Comment on above: Order Comment: Speci men Type: BLOOD SPECIMEN Ordering Facility: [facility] Address: [address] [place] [address] Performed By: #### 5 5454-3 #### [facility] CLIA [id number] [address] [place] [address] [place] Monocytes (Bld) [#/Vol] 0.72 10*3/uL Normal <0.87 [facility] Comment on above: Order Comment: Speci men Type: BLOOD SPECIMEN Ordering Facility: [facility] Address: [address] [place] [address] Performed By: #### 5 5454-3 #### [facility] CLIA [id number] [address] [place] [address] [place] Monocytes/100 WBC (Bld) 9.5 % Normal [facility] Comment on above: Order Comment: Speci men Type: BLOOD SPECIMEN Ordering Facility: [facility] Address: [address] [place] [address] Performed By: #### 5 5454-3 #### [facility] CLIA [id number] [address] [place] [address] [place] Neutrophils (Bld) [#/Vol] 4.83 10*3/uL Normal 1.45-7.50 [facility] Comment on above: Order Comment: Speci men Type: BLOOD SPECIMEN Ordering Facility: [facility] Address: [address] [place] [address] Performed By: #### 5 5454-3 #### [facility] CLIA [id number] [address] [place] [address] [place] Neutrophils/100 WBC (Bld) 63.9 % Normal [facility] Comment on above: Order Comment: Speci men Type: BLOOD SPECIMEN Ordering Facility: [facility] Address: [address] [place] [address] Performed By: #### 5 5454-3 #### [facility] CLIA [id number] [address] [place] [address] [place] Nucleated RBC (Bld) [#/Vol] 10*3/uL Normal <0.01 [facility] Comment on above: Order Comment: Speci men Type: BLOOD SPECIMEN Ordering Facility: [facility] Address: [address] [place] [address] Performed By: #### 5 5454-3 #### [facility] CLIA [id number] [address] [place] [address] [place] Nucleated RBC/100 WBC (Bld) [Ratio] 0.0 /100 WBC Normal [facility] Comment on above: Order Comment: Speci men Type: BLOOD SPECIMEN Ordering Facility: [facility] Address: [address] [place] [address] Performed By: #### 5 5454-3 #### [facility] CLIA [id number] [address] [place] [address] [place] Platelet mean volume (Bld) [Entitic vol] 12.0 fL Normal 9.0-12.7 [facility] Comment on above: Order Comment: Speci men Type: BLOOD SPECIMEN Ordering Facility: [facility] Address: [address] [place] [address] Performed By: #### 5 5454-3 #### [facility] CLIA [id number] [address] [place] [address] [place] Platelets (Bld) [#/Vol] 174 10*3/uL Normal 150-400 [facility] Comment on above: Order Comment: Speci men Type: BLOOD SPECIMEN Ordering Facility: [facility] Address: [address] [place] [address] Performed By: #### 5 5454-3 #### [facility] CLIA [id number] [address] [id number] [address] [place] RBC (Bld) [#/Vol] 5.73 10*6/uL Normal 4.20-6.00 [facility] Comment on above: Order Comment: Speci men Type: BLOOD SPECIMEN Ordering Facility: [facility] Address: [address] [place] [address] Performed By: #### 5 5454-3 #### [facility] CLIA [id number] [address] [place] [address] [place] WBC (Bld) [#/Vol] 7.56 10*3/uL Normal 3.70-11.00 [facility] Comment on above: Order Comment: Speci men Type: BLOOD SPECIMEN Ordering Facility: [facility] Address: [address] [place] [address] Performed By: #### 5 5454-3 #### [facility] CLIA [id number] [address] [place] [address] OF [facility] CNOVon 09-01-2024 CNOV Office Visit (MYRONWS ) -------- JOSHUA ESTES ([id number]) 1955 M Date Time Provider Department 09/01/24 12:40 PM AUDREY PACKER During your visit today, we recorded the following information about you: Temperature Pulse Respiration Blood pressure 98.4 degrees 94/minute 20/minute 144/78 Weight 111.8 kg Audrey Packer APRN.PRESSED OR 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 X2 days. Recording using ambient [employer] software for draft documentation of the visit was discussed with the patient/authorized commercial representative; all questions welcomed and answered. Patient/authorized commercial representative agreed to proceed SUBJECTIVE: This is a 69 year old that is here today for Above Complaints. Lip and Chin Lesion: - Woke up with a swollen lower lip on Sunday morning, followed by a red spot on the chin on Sunday morning. - Lesion on the chin began draining a clear liquid last night. - Denies known trauma or insect bites. - Experiencing pain extending into the jaw and inside the mouth. - No issues with swallowing or breathing. - Denies fevers or chills. - Recent use of Aleve on Sunday. - Long-term use of Losartan. PAST MEDICAL HISTORY Diagnosis Date Aneurysm right [...] allergies. MEDICATIONS Current Outpatient Medications Medication Sig doxycycline hyclate (VIBRAMYCIN) 100 mg capsule Take 1 capsule by mouth two times a day for 7 days. methylPREDNISolone (MEDROL DOSE-PACK) 4 mg Dose-Pack Take as instructed per package. gabapentin (NEURONTIN) 600 mg tablet Take one tablet between 2-3 PM daily amitriptyline (ELAVIL) 25 mg tablet Take 1 tablet by mouth daily at bedtime. metFORMIN (GLUCOPHAGE) 1,000 mg tablet Take 1 tablet by mouth two times a day with meals. . atorvastatin (LIPITOR) 40 mg tablet Take 1 tablet by mouth once daily. For cholesterol. pramipexole (MIRAPEX) 0.25 mg tablet Take 2 tablets by mouth daily at bedtime. losartan (COZAAR) 100 mg tablet Take 1 tablet by mouth once daily. hydroCHLOROthiazide 50 mg tablet Take 1 tablet by mouth once daily. montelukast (SINGULAIR) 10 mg tablet TAKE 1 TABLET BY MOUTH EVERYDAY AT BEDTIME ferrous sulfate 325 mg (65 mg iron) tablet Take 1 tablet by mouth once daily. gabapentin (NEURONTIN) 300 mg capsule Take 3 capsules by mouth daily at bedtime for 90 days. empagliflozin (JARDIANCE) 25 mg tablet Take 1 tablet by mouth once daily. Take 1 tablet once daily in the morning fluticasone-salmeterol (ADVAIR) 500-50 mcg/dose dsdv INHALE 1 PUFF INSTRUCTED TWO TIMES A DAY glimepiride (AMARYL) 4 mg tablet Take 2 tablets by mouth daily with breakfast. albuterol HFA (VENTOLIN HFA) 90 mcg/actuation inhaler [...] and negative other than HPI. OBJECTIVE: BP 144/78 Pulse 94 Temp 36.9 ?C (98.4 ?F) Resp 20 Wt 111.8 kg (246 lb 6.4 oz) BMI 33.42 kg/m? . Vital signs reviewed by this provider. GENERAL: NAD, alert and oriented. SKIN: Erythematous, indurated area below the lower lip without active drainage with erythema extending into chin. Swelling to lower lip obs (more content not included)... Normal [facility] CRP SerPl-mCncon 09-01-2024 CRP [Mass/Vol] 3.1 mg/dL High <0.9 [facility] Comment on above: Order Comment: Speci men Type: BLOOD SPECIMENOrdering Facility: [facility] Address: [address] [place] [address] Performed By: #### 1 988-5, 08443-2, 66649-2, 2275-4 ####[facility] [id number] [facility] [address] [place] [address] [place] Comprehensive metabolic 2000 panelon 09-01-2024 Albumin [Mass/Vol] 4.0 g/dL Normal 3.9-4.9 [facility] Comment on above: Order Comment: Speci men Type: BLOOD SPECIMENOrdering Facility: [facility] Address: [address] [place] [address] Performed By: #### 1 988-5, 72878-8, 71279-6, 2275-4 ####[facility] [id number] [facility] [address] [address] [place] ALP [Catalytic activity/Vol] 78 U/L Normal 38-113 [facility] Comment on above: Order Comment: Speci men Type: BLOOD SPECIMENOrdering Facility: [facility] Address: [address] [place], [place] [address] Performed By: #### 1 988-5, 71573-0, 33178-0, 2275-4 ####[facility]CLIA [id number] [facility] [address] [place] [address] [place] ALT [Catalytic activity/Vol] 20 U/L Normal 10-54 [facility] Comment on above: Order Comment: Speci men Type: BLOOD SPECIMENOrdering Facility: [facility] Address: [address] [place], [place] [address] Performed By: #### 1 988-5, 85532-1, 55614-3, 2275-4 ####[facility]CLIA [id number] [facility] [address] [place] [address] [place] Anion gap [Moles/Vol] 14 mmol/L Normal 8-15 [facility] Comment on above: Order Comment: Speci men Type: BLOOD SPECIMENOrdering Facility: [facility] Address: [address] [place] [address] Performed By: #### 1 988-5, 87218-2, 00368-0, 2275-4 ####[facility] LABCLIA [id number] [place] [id number] [place] AST [Catalytic activity/Vol] 27 U/L Normal 14-40 [facility] Comment on above: Order Comment: Speci men Type: BLOOD SPECIMENOrdering Facility: [facility] Address: [address] [place] [address] Performed By: #### 1 988-5, 49897-2, 96169-4, 4 ####[facility] LABIA [id number] [place] [address] [place] Bilirubin [Mass/Vol] 0.9 mg/dL Normal 0.2-1.3 [facility] Comment on above: Order Comment: Speci men Type: BLOOD SPECIMENOrdering Facility: [facility] Address: [address] [place] [address] Performed By: #### 1 988-5, 63466-9, 19154-9, 2275-07 ####[facility] LABCLIA [id number] [place] [id number] [place] Calcium [Mass/Vol] 9.5 mg/dL Normal 8.5-10.2 [facility] Comment on above: Order Comment: Speci men Type: BLOOD SPECIMENOrdering Facility: [facility] Address: [address] [place] [address] Performed By: #### 1 988-5, 89245-5, 88161-9, 4 ####[facility] LABCLIA [id number] [address] [address] [place] Chloride [Moles/Vol] 98 mmol/L Normal 98-107 [facility] Comment on above: Order Comment: Speci men Type: BLOOD SPECIMENOrdering Facility: [facility] Address: [address] [place] [address] Performed By: #### 1 988-5, 52998-6, 97212-9, 6-4 ####[facility] LABIA [id number] [address] [address] [place] CO2 [Moles/Vol] 28 mmol/L Normal 22-30 [facility] Comment on above: Order Comment: Speci men Type: BLOOD SPECIMENOrdering Facility: [facility] Address: [address] [place] [address] Performed By: #### 1 988-5, 41593-8, 19964-4, 6-4 ####[facility] [id number] [place] [id number] [place] Creatinine [Mass/Vol] 1.17 mg/dL Normal 0.73-1.22 [facility] Comment on above: Order Comment: Speci men Type: BLOOD SPECIMENOrdering Facility: [facility] Address: [address] [place] [address] Performed By: #### 1 988-5, 85135-1, 26576-7, 2275-4 ####[facility] [id number] [place] [id number] [place] Creatinine and Glomerular filtration rate.predicted panel (S/P/Bld) 67 mL/min/1.73m??? Normal >=60 [facility] Comment on above: Order Comment: Speci men Type: BLOOD SPECIMENOrdering Facility: [facility] Address: [address] [place] [address] Result Comment: Symone mated Glomerular Filtration Rate (eGFR) is calculated using the 2020 CKD-EPI creatinine equation. This equation utilizes serum creatinine, sex, and age as parameters. The creatinine assay has traceable calibration to isotope dilution-mass spectrometry. Refer to KDIGO guidelines for clinical interpretation. In patients with unstable renal function, e.g. those with acute kidney injury, the eGFR may not accurately reflect actual GFR. Performed By: #### 1 988-5, 21874-3, 30138-6, 2275-07 ####[facility]CLIA [id number] [facility] [address] [address] [place] Glucose [Mass/Vol] 98 mg/dL Normal 74-99 [facility] Comment on above: Order Comment: Tucker varghese Type: BLOOD SPECIMENOrdering Facility: [facility] Address: [address] [place] [id number] Result Comment: The [place] Diabetes Association (ADA) provides guidance for cutoff values for fasting glucose and random glucose. The ADA defines fasting as no caloric intake for at least 8 hours. Fasting plasma glucose results between 100 to 125 mg/dL indicate increased risk for diabetes (prediabetes). Fasting plasma glucose results greater than or equal to 126 mg/dL meet the criteria for diagnosis of diabetes. In the absence of unequivocal hyperglycemia, results should be confirmed by repeat testing. In a patient with classic symptoms of hyperglycemia or hyperglycemic crisis, random plasma glucose results greater than or equal to 200 mg/dL meet the criteria for diagnosis of diabetes. Reference: Standards of Medical Care in Diabetes 2016, [place] [employer] Association. Diabetes Care. 2016.39(Suppl 1). Performed By: #### 1 988-5, 27267-6, 86001-0, 2275-07 ####[facility] LABCLIA [id number] [facility] [address] [address] [place] Potassium [Moles/Vol] 4.3 mmol/L Normal 3.7-5.1 [facility] Comment on above: Order Comment: Tucker varghese Type: BLOOD SPECIMENOrdering Facility: [facility] Address: [address] [place] [address] Performed By: #### 1 988-5, 15530-3, 16047-2, 2275-07 ####[facility] LABCLIA [id number] [facility] [id number] [place] [address] [place] Protein [Mass/Vol] 7.7 g/dL Normal 6.3-8.0 [facility] Comment on above: Order Comment: Speci men Type: BLOOD SPECIMENOrdering Facility: [facility] Address: [address] [place] [address] Performed By: #### 1 988-5, 71440-2, 90934-8, 6-4 ####[facility] LABCLIA [id number] [place] [address] [place] Sodium [Moles/Vol] 140 mmol/L Normal 136-144 [facility] Comment on above: Order Comment: Speci men Type: BLOOD SPECIMENOrdering Facility: [facility] Address: [address] [place] [address] Performed By: #### 1 988-5, 97194-6, 89482-3, 2275-4 ####[facility] LABCLIA [id number] [place] [address] [place] Urea nitrogen [Mass/Vol] 19 mg/dL Normal 9-24 [facility] Comment on above: Order Comment: Speci men Type: BLOOD SPECIMENOrdering Facility: [facility] Address: [address] [place] [address] Performed By: #### 1 988-5, 80805-0, 24810-0, 2275-4 ####[facility] LABCLIA [id number] [place] [address] [place] ESR Westergren method (Bld) [Velocity]on 09-01-2024 ESR (Bld) [Velocity] 27 mm/h High [facility] Interpretation and review of laboratory results Abnormal [facility] ESR (Bld) [Velocity] 27 mm/h High 0-15 [facility] Comment on above: Order Comment: Speci men Type: BLOOD SPECIMEN [facility] Address: [address] [place] [address] Performed By: #### 5 5454-3 #### [facility] CLIA [id number] [address] [place] [address] [place] [address] [place] Ferritin SerPl-mCncon 2024 Ferritin [Mass/Vol] 47.5 ng/mL Normal 30.3-565.7 [facility] Comment on above: Order Comment: Speci men Type: BLOOD SPECIMENOrdering Facility: [facility] Address: [address] [place] [address] Performed By: #### 1 988-5, 62731-7, 49806-4, 6-4 ####[facility] LABIA [id number] [place] [id number] [place] Iron [employer] binding capaci ty panelon 09-01-2024 Iron [Mass/Vol] 86 ug/dL Normal 41-186 [facility] Comment on above: Order Comment: Speci men Type: BLOOD SPECIMENOrdering Facility: [facility] Address: [address] [place] [address] Performed By: #### 1 988-5, 68280-8, 87563-5, 2275-4 ####[facility] LABIA [id number] [place] [id number] [place] Iron binding capacity [Mass/Vol] 318 ug/dL Normal 232-386 [facility] Comment on above: Order Comment: Speci men Type: BLOOD SPECIMENOrdering Facility: [facility] Address: [address] [place] [address] Performed By: #### 1 988-5, 75020-8, 57061-0, 2275-4 ####[facility] LABIA [id number] [place] [id number] [place] Iron/TIBC [Molar ratio] 27.0 % Normal 15.0-57.0 [facility] Comment on above: Order Comment: Speci men Type: BLOOD SPECIMENOrdering Facility: [facility] Address: [address] [place] [address] Performed By: #### 1 988-5, 74607-7, 04949-7, 6-4 ####[facility] BINH [id number] [address] [place] CNOVon 08-19-2024 CNOV Office Visit (FAMPWS ) -------- JOSHUA ESTES ([id number]) 1955 M Date Time Provider Department 08/19/24 12:40 PM [facility] During your visit today, we recorded the following information about you: Pulse Respiration Blood pressure Weight 60/minute 16/minute 130/76 111.8 kg Tobi Sorto MD 08/19/2024 3:17 PM Signed Chief Complaint Patient presents with: Sleep Problem: Discuss failed sleep medications Recording using [employer] software for draft documentation of the visit was discussed with the patient/authorized commercial representative; all questions welcomed and answered. Patient/authorized commercial representative agreed to proceed HPI Joshua Estes is a 69 year old male who presents here today for Above Complaints. Insomnia: - Persistent insomnia despite trials of melatonin, trazodone, and amitriptyline. - Currently taking amitriptyline 50 mg; previously on 25 mg, which helped with sleep onset but not maintenance. - Wakes up every 2 hours during the night, regardless of medication dosage. - Denies nocturia, pain, depression, or anxiety contributing to awakenings. - Completed a home sleep apnea test in March, but results were invalid; did not reschedule. - Reports loud snoring; denies observed apneic episodes or gasping for air. - Feels tired throughout the day. - Has tried various methods to improve sleep, including eliminating caffeine, adjusting room temperature, and playing piano before bed. - Sleeps on left side initially, then switches to right side; reports tossing and turning during the night. - Denies alcohol consumption. Past medical history, appointments, medications, allergies reviewed. [...] REVSC OPN/PRG FEM/POP W/ANGIOPLASTY UNI Right 09/25/2016 NPS of R fem-pop bypass graft SHX VASCULAR [...] on File Prior to Visit Medication Sig metFORMIN (GLUCOPHAGE) 1,000 mg tablet Take 1 tablet by mouth two times a day with meals. . atorvastatin (LIPITOR) 40 mg tablet Take 1 tablet by mouth once daily. For cholesterol. pramipexole (MIRAPEX) 0.25 mg tablet Take 2 tablets by mouth daily at bedtime. losartan (COZAAR) 100 mg tablet Take 1 tablet by mouth once daily. hydroCHLOROthiazide 50 mg tablet Take 1 tablet by mouth once daily. amitriptyline (ELAVIL) 50 mg tablet Take 1 tablet by mouth daily at bedtime. montelukast (SINGULAIR) 10 mg tablet TAKE 1 TABLET BY MOUTH EVERYDAY AT BEDTIME ferrous sulfate 325 mg (65 mg iron) tablet Take 1 tablet by mouth once daily. gabapentin (NEURONTIN) 300 mg capsule Take 3 capsules by mouth daily at bedtime for 90 days. gabapentin (NEURONTIN) 600 mg tablet Take one tablet between 2-3 PM daily empagliflozin (JARDIANCE) 25 mg tablet Take 1 tablet by mouth once daily. Take 1 tablet once daily in the morning fluticasone-salmeterol (ADVAIR) 500-50 mcg/dose dsdv INHALE 1 PUFF INSTRUCTED TWO TIMES A DAY glimepiride (AMARYL) 4 mg tablet Take 2 tablets by mouth daily with breakfast. albuterol HFA (VENTOLIN HFA) 90 mcg/actuation inhaler Inhale 2 Puffs as instructed every 4 hours as needed for wheezing/shortness of breath. Lactobacillus acidophilus (FLORAJEN ACIDOPHILUS) 20 billion cell capsule Take 1 capsule by mouth once daily. (Patient not taking: Reported on 07/23/2023) blood sugar diagnostic (TRUE M (more content not included)... Normal [facility] 08-18-2024 [facility] -------- JOSHUA ESTES ([id number]) 1955 Date Time Provider Department 08/18/24 [facility] During your visit today, we recorded the following information about you: Meaghan Fischer RN 08/18/2024 12:37 PM Signed Patient calls with update since starting amitriptyline 50 mg at bedtime for sleep. Patient reports that he has noticed no change in his sleep pattern. He is still waking up every 2 hours like clockwork and still has no reason to be waking up every 2 hours. Patient not taking anything else to help with sleep. Patient reports that he has previously tried melatonin and benadryl OTC with no relief as well. SHAMAR Whitney Christopher B, MD 08/18/2024 1:34 PM Signed Recommend OV to discuss further since he has failed multiple rx. Fern Stephen RN 08/18/2024 2:01 PM Signed Pt called and is notified of providers results and instructions. Pt voices understanding. Pt scheduled tomorrow with Dr Sorto at 1240 pm. Fern Stephen RN Allergies As of Date: 08/18/2024 (No Known Allergies) Date Reviewed: 07/16/2024 Reviewed by: Marleny Raygoza LPN - Fully Assessed Reason for Visit: Patient Update [1234] Prescriptions as of 08/18/2024 - metFORMIN (GLUCOPHAGE) 1,000 mg tablet Take 1 tablet by mouth two times a day with meals. . - atorvastatin (LIPITOR) 40 mg tablet Take 1 tablet by mouth once daily. For cholesterol. - pramipexole (MIRAPEX) 0.25 mg tablet Take 2 tablets by mouth daily at bedtime. - losartan (COZAAR) 100 mg tablet Take 1 tablet by mouth once daily. - hydroCHLOROthiazide 50 mg tablet Take 1 tablet by mouth once daily. - amitriptyline (ELAVIL) 50 mg tablet Take 1 tablet by mouth daily at bedtime. - montelukast (SINGULAIR) 10 mg tablet TAKE 1 TABLET BY MOUTH EVERYDAY AT BEDTIME - ferrous sulfate 325 mg (65 mg iron) tablet Take 1 tablet by mouth once daily. - gabapentin (NEURONTIN) 300 mg capsule Take 3 capsules by mouth daily at bedtime for 90 days. - gabapentin (NEURONTIN) 600 mg tablet Take one tablet between 2-3 PM daily - empagliflozin (JARDIANCE) 25 mg tablet Take 1 tablet by mouth once daily. Take 1 tablet once daily in the morning - fluticasone-salmeterol (ADVAIR) 500-50 mcg/dose dsdv INHALE 1 PUFF INSTRUCTED TWO TIMES A DAY - glimepiride (AMARYL) 4 mg tablet Take 2 tablets by mouth daily with breakfast. - albuterol HFA (VENTOLIN HFA) 90 mcg/actuation inhaler Inhale 2 Puffs as instructed every 4 hours as needed for wheezing/shortness of breath. - Lactobacillus acidophilus (FLORAJEN ACIDOPHILUS) 20 billion cell capsule Take 1 capsule by mouth once daily. - blood sugar diagnostic (TRUE METRIX GLUCOSE TEST STRIP) test strip Test once daily DX: E11.42, E11.29 - Blood Pressure Monitor (BLOOD PRESSURE KIT) 1 Each once daily. - pentoxifylline ER (TRENTAL) 400 mg CR tablet Take 1 tablet by mouth three times daily with meals. - Blood-Glucose Meter (TRUE METRIX AIR GLUCOSE METER) misc 1 Device twice daily. - Lancets lancets Test once daily DX: E11.42. E11.29 - insulin needles, DISPOSABLE, (BD INSULIN PEN NEEDLE UF) 31 gauge x 5/16 ndle 1 Each once daily. - aspirin 81 mg chewable tablet Take 1 tablet by mouth once daily. 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*12/21/2015 05/29/2018 Peripheral arterial disease (HCC) [I73.9] 12/21/2015 Postoperative wound infection [T81.49XA] 12/21/2015 12/28/2015 Wound infection after surgery [T81.49XA] 12/21/2015 05/26/2018 JOSUÉ (acute kidney injury) (HCC) [N17.9] 12/28/2015 05/26/2018 Abnormality of gait [R26.9] 04/18/2016 Saphenous neuralgia, 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] 02/15/2017 05/26/2018 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] 05/09/2017 05/26/2018 Type 2 diabetes mellitus with peripheral neurop*05/20/2018 Callus of foot [L84] 05/26/2018 Hypercholesteremia [E78.00] 05/26/2018 Tobacco use disorder [F17.200] 06/25/2018 Tobacco use [Z72.0] 06/09/2020 Diabetic ulcer of toe of right foot (HCC) [E11.* 06/09/2020 Essential hypertension, benign [I10] 01/10/2019 GERD (gastroesophageal reflux disease) [K21.9] 01/10/2019 Obesity [E66.9] 01/10/2019 Pain in right foot [M79.671] 01/10/2019 Restless leg syndrome [G25.81] Type 2 diabetes mellitus with diabetic peripher*06/09/2020 Benign paroxysmal positional vertigo of right e*09/06/2020 Right sided sciatica [M54.31] 09/06/2020 PAC (premature atrial contraction) [I49.1] 02/21/2021 Encounter Status:Closed by F[facility] STEPH[facility] -------- JOSHUA ESTES ([id number]) 1955 M Date Time Provider Department 07/28/24 TOBI SORTO [facility] During your visit today, we recorded the following information about you: Debbi Zamora LPN 07/28/2024 11:28 AM Signed Patient calling said the Amitriptyline 10 mg at bedtime is not helping at all. He is still wide awake every two hours all night. Patient asking if another medication may help better? He uses [facility] for his pharmacy. Please advise Tobi Sorto MD 07/28/2024 11:36 AM Signed Increase dosage of Amitriptyline to 25 mg before bed. Call in 1-2 weeks if insomnia not improving. Marleny Raygoza LPN 07/28/2024 12:23 PM Signed Patient notified. Voices understanding. NOEMY Fontenot Sherrie, RN 08/04/2024 3:23 PM Signed Patient calling in. It has been about 1 week since the increase in his Amitriptyline to 25 mg. Pt reports it helps him fall asleep right away but he is still waking up every 2 hours. Please advise. Marilee Hernández, Tobi Melton MD 08/05/2024 1:07 PM Signed If the medication is helping him fall asleep, that is what it is intended to do. Is there something waking him up at night. Loud noise? Need to urinate? Pain? Jessica Soto, RN 08/05/2024 1:40 PM Signed Phoned and spoke with patient. Given provider's message below. Pt states there is nothing waking him up: does not wake up to urinate, no pain, no loud noises. States he just wakes up every 2 hours like clockwork and is wide awake when he wakes up. States he does fall asleep, he just doesn't stay asleep. Tobi Sorto MD 08/05/2024 2:55 PM Signed We can go up to maximum 50 mg of the amitriptyline to see if it helps him to stay asleep better. New rx sent. Tobi Sorto MD 08/05/2024 2:55 PM Signed Addended by: TOBI SORTO on: 08/05/2024 02:55 PM Modules accepted: Orders Fern Stephen RN 08/05/2024 3:11 PM Signed Called and left a voicemail for the Patient to call back and ask for a nurse to receive the providers message. SHAMAR Martinez Stephanie, RN 08/05/2024 3:35 PM Signed Patient called and notified of below. Patient voices understanding. Amanda Hammer RN Allergies As of Date: 07/28/2024 (No Known Allergies) Date Reviewed: 07/16/2024 Reviewed by: Marleny Raygoza LPN - Fully Assessed Reason for Visit: Patient Question [4517] Order(s):amitriptyline (ELAVIL) 50 mg tabletTake 1 tablet by mouth daily at bedtime.Disp: 30 tabletRfl: 0 Prescriptions as of 08/05/2024 - amitriptyline (ELAVIL) 50 mg tablet Take 1 tablet by mouth daily at bedtime. - montelukast (SINGULAIR) 10 mg tablet TAKE 1 TABLET BY MOUTH EVERYDAY AT BEDTIME - ferrous sulfate 325 mg (65 mg iron) tablet Take 1 tablet by mouth once daily. - gabapentin (NEURONTIN) 300 mg capsule Take 3 capsules by mouth daily at bedtime for 90 days. - gabapentin (NEURONTIN) 600 mg tablet Take one tablet between 2-3 PM daily - pramipexole (MIRAPEX) 0.25 mg tablet Take 2 tablets by mouth daily at bedtime. - empagliflozin (JARDIANCE) 25 mg tablet Take 1 tablet by mouth once daily. Take 1 tablet once daily in the morning - fluticasone-salmeterol (ADVAIR) 500-50 mcg/dose dsdv INHALE 1 PUFF INSTRUCTED TWO TIMES A DAY - metFORMIN (GLUCOPHAGE) 1,000 mg tablet Take 1 tablet by mouth two times a day with meals. . - losartan (COZAAR) 100 mg tablet Take 1 tablet by mouth once daily. - atorvastatin (LIPITOR) 40 mg tablet Take 1 tablet by mouth once daily. For cholesterol. - hydroCHLOROthiazide 50 mg tablet Take 1 tablet by mouth once daily. - glimepiride (AMARYL) 4 mg tablet Take 2 tablets by mouth daily with breakfast. - albuterol HFA (VENTOLIN HFA) 90 mcg/actuation inhaler Inhale 2 Puffs as instructed every 4 hours as needed for wheezing/shortness of breath. - Lactobacillus acidophilus (FLORAJEN ACIDOPHILUS) 20 billion cell capsule Take 1 capsule by mouth once daily. - blood sugar diagnostic (TRUE METRIX GLUCOSE TEST STRIP) test strip Test once daily DX: E11.42, E11.29 - Blood Pressure Monitor (BLOOD PRESSURE KIT) 1 Each once daily. - pentoxifylline ER (TRENTAL) 400 mg CR tablet Take 1 tablet by mouth three times daily with meals. - Blood-Glucose Meter (TRUE METRIX AIR GLUCOSE METER) misc 1 Device twice daily. - Lancets lancets Test once daily DX: E11.42. E11.29 - insulin needles, DISPOSABLE, (BD INSULIN PEN NEEDLE UF) 31 gauge x 5/16 ndle 1 Each once daily. - aspirin 81 mg chewable tablet Take 1 tablet by mouth once daily. Meds Comments as of 09/08/2016: not on sliding scale 09/07/16 Problem List As Of Date 07/28/2024 Noted Resolved Ischemia of lower extremity [I99.8] 12/03/2015 05/26/2018 Malnutrition of mild degree (HCC) [E44.1] 12/09/2015 05/26/2018 Right groin wound [S31.109A] 12/21/2015 05/26/2018 Controlled type (more content not included)... [facility] -------- JOSHUA ESTES ([id number]) 1955 M Date Time Provider Department 07/21/24 TOBI SORTO [facility] During your visit today, we recorded the following information about you: Amanda Hammer RN 07/21/2024 12:12 PM Signed Patient calls and states that he was just recently started on Trazodone. Patient reports that Trazodone has not helped him with sleep. Patient has been taking 100 mg x 1 week and has not noticed it making any difference in helping him sleep. Please review and advise, SHAMAR Yanes Christopher B, MD 07/21/2024 3:01 PM Signed Stop trazodone. Start 10 mg amitriptyline qhs instead to help with sleep. This is an alternative antidepressant. Call in 1-2 weeks with update on sleep or sooner with side effects. Fern Stephen RN 07/21/2024 3:24 PM Signed Pt called and is notified of providers results and instructions. Pt voices understanding. Fern Stephen RN Allergies As of Date: 07/21/2024 (No Known Allergies) Date Reviewed: 07/16/2024 Reviewed by: Marleny Raygoza LPN - Fully Assessed Reason for Visit: Patient Update [1234] Order(s):amitriptyline (ELAVIL) 10 mg tabletTake 1 tablet by mouth daily at bedtime.Disp: 30 tabletRfl: 0 Prescriptions as of 07/21/2024 - amitriptyline (ELAVIL) 10 mg tablet Take 1 tablet by mouth daily at bedtime. - ferrous sulfate 325 mg (65 mg iron) tablet Take 1 tablet by mouth once daily. - gabapentin (NEURONTIN) 300 mg capsule Take 3 capsules by mouth daily at bedtime for 90 days. - gabapentin (NEURONTIN) 600 mg tablet Take one tablet between 2-3 PM daily - pramipexole (MIRAPEX) 0.25 mg tablet Take 2 tablets by mouth daily at bedtime. - empagliflozin (JARDIANCE) 25 mg tablet Take 1 tablet by mouth once daily. Take 1 tablet once daily in the morning - fluticasone-salmeterol (ADVAIR) 500-50 mcg/dose dsdv INHALE 1 PUFF INSTRUCTED TWO TIMES A DAY - metFORMIN (GLUCOPHAGE) 1,000 mg tablet Take 1 tablet by mouth two times a day with meals. . - losartan (COZAAR) 100 mg tablet Take 1 tablet by mouth once daily. - atorvastatin (LIPITOR) 40 mg tablet Take 1 tablet by mouth once daily. For cholesterol. - hydroCHLOROthiazide 50 mg tablet Take 1 tablet by mouth once daily. - glimepiride (AMARYL) 4 mg tablet Take 2 tablets by mouth daily with breakfast. - montelukast (SINGULAIR) 10 mg tablet TAKE 1 TABLET BY MOUTH EVERYDAY AT BEDTIME - albuterol HFA (VENTOLIN HFA) 90 mcg/actuation inhaler Inhale 2 Puffs as instructed every 4 hours as needed for wheezing/shortness of breath. - Lactobacillus acidophilus (FLORAJEN ACIDOPHILUS) 20 billion cell capsule Take 1 capsule by mouth once daily. - blood sugar diagnostic (TRUE METRIX GLUCOSE TEST STRIP) test strip Test once daily DX: E11.42, E11.29 - Blood Pressure Monitor (BLOOD PRESSURE KIT) 1 Each once daily. - pentoxifylline ER (TRENTAL) 400 mg CR tablet Take 1 tablet by mouth three times daily with meals. - Blood-Glucose Meter (TRUE METRIX AIR GLUCOSE METER) misc 1 Device twice daily. - Lancets lancets Test once daily DX: E11.42. E11.29 - insulin needles, DISPOSABLE, (BD INSULIN PEN NEEDLE UF) 31 gauge x 5/16 ndle 1 Each once daily. - aspirin 81 mg chewable tablet Take 1 tablet by mouth once daily. 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*12/21/2015 05/29/2018 Peripheral arterial disease (HCC) [I73.9] 12/21/2015 Postoperative wound infection [T81.49XA] 12/21/2015 12/28/2015 Wound infection after surgery [T81.49XA] 12/21/2015 05/26/2018 JOSUÉ (acute kidney injury) (HCC) [N17.9] 12/28/2015 05/26/2018 Abnormality of gait [R26.9] 04/18/2016 Saphenous neuralgia, 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] 02/15/2017 05/26/2018 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] 05/09/2017 05/26/2018 Type 2 diabetes mellitus with peripheral neurop*05/20/2018 Callus of foot [L84] 05/26/2018 Hypercholesteremia [E78.00] 05/26/2018 Tobacco use disorder [F17.200] 06/25/2018 Tobacco use [Z72.0] 06/09/2020 Diabetic ulcer of toe of right foot (HCC) [E11.* 06/09/2020 Essential hypertension, benign [I10] 01/10/2019 GERD (gastroesophageal reflux disease) [K21.9] 01/10/2019 Obesity [E66.9] 01/10/2019 Pain in right foot [M79.671] 01/10/2019 Restless leg syndrome [G25.81] Type 2 diabetes mellitus with diabetic peripher*06/09/2020 Benign paroxysmal positional vertigo of right e*09/06/2020 Right sided sciatica [M54.31] 09/06/2020 PAC (premature atrial contraction) [I49.1] 02/21/2021 Prescriptions ordered this encounter Disp Refills Start End AMITRIPTYLINE 10 MG TABLET 30 t* 0 07/21/2024 (more content not included)... Normal [facility] CNOVon 07-16-2024 CNOV Office Visit (FAMPWS ) -------- JOSHUA ESTES ([id number]) 1955 M Date Time Provider Department 07/16/24 5:20 PM [facility] During your visit today, we recorded the following information about you: Pulse Respiration Blood pressure Weight 83/minute 18/minute 142/82 114.3 kg ChucklogAudrey kwan APRN.[employer] WORKER 07/16/2024 5:27 PM Signed 07/16/2024 Patient presents with: Edema: Bilateral lower [...] done Influenza Vaccine(1) due on 09/29/2024 Covid-19 Vaccine(2023- season) due on 01/07/2025 RSV Vaccine(1 - Risk 60-74 years 1-dose series) due on 07/08/2025 Shingrix (more content not included)... Normal [facility] XR CHEST 2V FRONTAL/LATon XR CHEST 2V FRONTAL/LAT * * *Final Report* * * DATE OF EXAM: Jul 16 2024 5:27PM WOX [id number] - XR CHEST 2V FRONTAL/LAT / PROCEDURE REASON: Abnormal lung sounds * * * * Physician Interpretation * * * * EXAMINATION: CHEST RADIOGRAPH (2 VIEW FRONTAL and LATERAL) CLINICAL HISTORY: Abnormal lung sounds MQ: XC2_6 EXAM DATE/TIME: 07/16/2024 5:27 PM COMPARISON: 08/10/2023 RESULT: Lines, tubes, and devices: None. Lungs and pleura: No consolidation. No lung mass. No pleural effusion. No pneumothorax. Mildly coarsened interstitium. Cardiomediastinal silhouette: Normal cardiomediastinal silhouette. Bones and soft tissues: Degenerative changes are present within the thoracic spine. IMPRESSION: No acute radiographic abnormality. 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[facility] Transcribe Date/Time: Jul 16 2024 5:54P Dictated by : SHERRON PRAJAPATI MD This examination was interpreted and the report reviewed and electronically signed by: SHERRON PRAJAPATI MD on Jul 16 2024 5:57PM EST [id number] Normal [facility] XR Chest PA and Lateralon IMPRESSION: No acute radiographic abnormality. 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[facility] Transcribe Date/Time: Jul 16 2024 5:54P Dictated by : SHERRON PRAJAPATI MD This examination was interpreted and the report reviewed and electronically signed by: SHERRON PRAJAPATI MD on Jul 16 2024 5:57PM [facility] DIVISION OF RADIOLOGY * * *Final Report* * * DATE OF EXAM: Jul 16 2024 5:27PM WOX [id number] - XR CHEST 2V FRONTAL/LAT / PROCEDURE REASON: Abnormal lung sounds * * * * Physician Interpretation * * * * EXAMINATION: CHEST RADIOGRAPH (2 VIEW FRONTAL & LATERAL) CLINICAL HISTORY: Abnormal lung sounds MQ: XC2_6 EXAM DATE/TIME: 07/16/2024 5:27 PM COMPARISON: 08/10/2023 RESULT: Lines, tubes, and devices: None. Lungs and pleura: No consolidation. No lung mass. No pleural effusion. No pneumothorax. Mildly coarsened interstitium. Cardiomediastinal silhouette: Normal cardiomediastinal silhouette. Bones and soft tissues: Degenerative changes are present within the thoracic spine. DIVISION OF RADIOLOGY Provider, [facility] - 07/16/2024 * * *Final Report* * * DATE OF EXAM: Jul 16 2024 5:27PM WOX [id number] - XR CHEST 2V FRONTAL/LAT / PROCEDURE REASON: Abnormal lung sounds * * * * Physician Interpretation * * * * EXAMINATION: CHEST RADIOGRAPH (2 VIEW FRONTAL & LATERAL) CLINICAL HISTORY: Abnormal lung sounds MQ: XC2_6 EXAM DATE/TIME: 07/16/2024 5:27 PM COMPARISON: 08/10/2023 RESULT: Lines, tubes, and devices: None. Lungs and pleura: No consolidation. No lung mass. No pleural effusion. No pneumothorax. Mildly coarsened interstitium. Cardiomediastinal silhouette: Normal cardiomediastinal silhouette. Bones and soft tissues: Degenerative changes are present within the thoracic spine. IMPRESSION IMPRESSION: No acute radiographic abnormality. 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[facility] Transcribe Date/Time: Jul 16 2024 5:54P Dictated by : SHERRON PRAJAPATI MD This examination was interpreted and the report reviewed and electronically signed by: SHERRON PRAJAPATI MD on Jul 16 2024 5:57PM EST [facility] Radiology Study observation (narrative) [facility] XR Chest PA and LateralOrder ed By: [facility] Provider on 07-16-2024 [facility] US KIDNEY/BLADDERon 07-15-19 25 US KIDNEY/BLADDER * * *Final Report* * * DATE OF EXAM: Jul 14 2024 10:35AM [id number] - US KIDNEY/BLADDER / PROCEDURE REASON: Stage 3a chronic kidney disease (HCC) * * * * Physician Interpretation * * * * EXAMINATION: RENAL ULTRASOUND CLINICAL HISTORY: Stage III a chronic kidney disease TECHNIQUE: Sonography of the kidneys and urinary bladder was performed. Images were obtained and stored in a permanent archive and interpreted remotely. MQ: UR_1 COMPARISON: CT abdomen pelvis dated 12/04/2015 RESULT: Right Kidney: -Renal length: 14.3 cm -Parenchyma: Normal parenchymal echogenicity. Normal parenchymal thickness. -Collecting system: No hydronephrosis. -Calculus: No echogenic, shadowing calculus. -Lesion: None. Left Kidney: -Renal length: 13.8 cm -Parenchyma: Normal parenchymal echogenicity. Normal parenchymal thickness. -Collecting system: No hydronephrosis. -Calculus: No echogenic, shadowing calculus. -Lesion: None. Bladder: Normal sonographic appearance. Prevoid bladder volume measures 154 mL. Postvoid bladder volume measures 7 mL. Other: Incidental note made of a 2.2 cm splenule in the left upper quadrant. IMPRESSION: Normal sonographic appearance of the kidneys 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[facility] Transcribe Date/Time: Jul 15 2024 4:05P Dictated by : ALEXANDREA BELLE MD This examination was interpreted and the report reviewed and electronically signed by: ALEXANDREA BELLE MD on Jul 15 2024 4:06PM EST [id number] Normal [facility] Urinalysis complete panel (U )on 07-11-2024 Bacteria LM.HPF (Urine sed) [#/Area] Negative Normal Negative [facility] Comment on above: Order Comment: Speci men Type: BLOOD SPECIMEN Ordering Facility: [facility] Address: [address] [place] [address] Performed By: #### 5 5454-3 #### [facility] CLIA [id number] [address] [place] [address] [place] Bilirubin Ql (U) Negative Normal Negative [facility] Comment on above: Order Comment: Speci men Type: BLOOD SPECIMEN Ordering Facility: [facility] Address: [address] [place] [address] Performed By: #### 5 5454-3 #### [facility] CLIA [id number] [address] [place] [address] [place] Clarity (Unsp spec) Clear Normal Clear [facility] Comment on above: Order Comment: Speci men Type: BLOOD SPECIMEN Ordering Facility: [facility] Address: [address] [place] [address] Performed By: #### 5 5454-3 #### [facility] CLIA [id number] [address] [place] [address] [place] Color (U) Yellow Normal Yellow [facility] Comment on above: Order Comment: Speci men Type: BLOOD SPECIMEN Ordering Facility: [facility] Address: [address] [place] [address] Performed By: #### 5 5454-3 #### [facility] CLIA [id number] [address] [place] [address] [place] Epithelial cells LM.HPF (Urine sed) [#/Area] None Seen Normal [facility] Comment on above: Order Comment: Speci men Type: BLOOD SPECIMEN Ordering Facility: [facility] Address: [address] [place], [place] [address] Performed By: #### 5 5454-3 #### [facility] CLIA [id number] [address] [place] [address] [place] Glucose Test strip (U) [Mass/Vol] 3+ Abnormal Negative [facility] Comment on above: Order Comment: Speci men Type: BLOOD SPECIMEN Ordering Facility: [facility] Address: [address] [place] [address] Performed By: #### 5 5454-3 #### [facility] CLIA [id number] [address] [place] [address] [place] Hemoglobin Ql (U) Negative Normal Negative [facility] Comment on above: Order Comment: Speci men Type: BLOOD SPECIMEN Ordering Facility: [facility] Address: [address] [place] [address] Performed By: #### 5 5454-3 #### [facility] CLIA [id number] [address] [place] [address] [place] Hyaline casts (Urine sed) [#/Area] 0 /[LPF] Normal 0 /LPF [facility] Comment on above: Order Comment: Speci men Type: BLOOD SPECIMEN Ordering Facility: [facility] Address: [address] [place] [address] Performed By: #### 5 5454-3 #### [facility] CLIA [id number] [address] [place] [address] [place] Ketones Ql (U) Negative Normal Negative [facility] Comment on above: Order Comment: Speci men Type: BLOOD SPECIMEN Ordering Facility: [facility] Address: [address] [place] [address] Performed By: #### 5 5454-3 #### [facility] CLIA [id number] [address] [place] [address] [place] Leukocyte esterase Test strip Ql (U) Negative Normal Negative [facility] Comment on above: Order Comment: Speci men Type: BLOOD SPECIMEN Ordering Facility: [facility] Address: [address] [place] [address] Performed By: #### 5 5454-3 #### [facility] CLIA [id number] [address] [place] [address] [place] Nitrite Ql (U) Negative Normal Negative [facility] Comment on above: Order Comment: Speci men Type: BLOOD SPECIMEN Ordering Facility: [facility] Address: [address] [place] [address] Performed By: #### 5 5454-3 #### [facility] CLIA [id number] [address] [place] [address] [place] pH (U) 6.5 [pH] Normal <8.5 [facility] Comment on above: Order Comment: Speci men Type: BLOOD SPECIMEN Ordering Facility: [facility] Address: [address] [place] [address] Performed By: #### 5 5454-3 #### [facility] CLIA [id number] [address] [place] [address] [place] Protein (U) [Mass/Vol] 3+ Abnormal Negative [facility] Comment on above: Order Comment: Speci men Type: BLOOD SPECIMEN Ordering Facility: [facility] Address: [address] [place] [address] Performed By: #### 5 5454-3 #### [facility] CLIA [id number] [address] [place] [address] [place] RBC LM.HPF (Urine sed) [#/Area] 0-2 /HPF Normal 0-2 /HPF [facility] Comment on above: Order Comment: Speci men Type: BLOOD SPECIMEN Ordering Facility: [facility] Address: [address] [place] [address] Performed By: #### 5 5454-3 #### [facility] CLIA [id number] [address] [place] [address] [place] Specific gravity (U) [Rel density] 1.023 Normal 1.005-1.030 [facility] Comment on above: Order Comment: Speci men Type: BLOOD SPECIMEN Ordering Facility: [facility] Address: [address] [place] [address] Performed By: #### 5 5454-3 #### [facility] CLIA [id number] [address] [place] [address] [place] Urobilinogen Ql (U) 1.0 EU/dL Normal 0.2-1.0 EU/dL [facility] Comment on above: Order Comment: Speci men Type: BLOOD SPECIMEN Ordering Facility: [facility] Address: [address] [place] [address] Performed By: #### 5 5454-3 #### [facility] CLIA [id number] [address] [place] [address] [place] WBC LM.HPF (Urine sed) [#/Area] 0-5 /HPF Normal 0-5 /HPF [facility] Comment on above: Order Comment: Speci men Type: BLOOD SPECIMEN Ordering Facility: [facility] Address: [address] [place] [address] Performed By: #### 5 5454-3 #### [facility] CLIA [id number] [address] [place] [address] [place] Comprehensive metabolic 2000 panelon 07-09-2024 Albumin [Mass/Vol] 3.7 g/dL Low 3.9 - 4.9 g/dL [facility] ALP [Catalytic activity/Vol] 68 U/L 38 - 113 U/L [facility] ALT [Catalytic activity/Vol] 24 U/L 10 - 54 U/L [facility] Anion gap [Moles/Vol] 12 mmol/L 8 - 15 mmol/L [facility] AST [Catalytic activity/Vol] 28 U/L 14 - 40 U/L [facility] Bilirubin [Mass/Vol] 0.6 mg/dL 0.2 - 1.3 mg/dL [facility] Calcium [Mass/Vol] 9 mg/dL 8.5 - 10. 2 mg/dL [facility] Chloride [Moles/Vol] 103 mmol/L 98 - 107 mmol/L [facility] CO2 [Moles/Vol] 27 mmol/L 22 - 30 mmol/L [facility] Creatinine [Mass/Vol] 1.31 mg/dL High 0.73 - 1.22 mg/dL [facility] GFR/1.73 sq M.predicted among non-blacks MDRD (S/P/Bld) [Vol rate/Area] 59 mL/min/{1.73_m2} Low - PINF [facility] Comment on above: Estimated Glomerular Filtration Rate (eGFR) is calculated using the 2020 CKD-EPI creatinine equation. This equation utilizes serum creatinine, sex, and age as parameters. The creatinine assay has traceable calibration to isotope dilution-mass spectrometry. Refer to KDIGO guidelines for clinical interpretation. In patients with unstable renal function, e.g. those with acute kidney injury, the eGFR may not accurately reflect actual GFR. Glucose [Mass/Vol] 137 mg/dL High 74 - 99 mg/dL [facility] Comment on above: The [place] Diabete s Association (ADA) provides guidance for cutoff values for fasting glucose and random glucose. The ADA defines fasting as no caloric intake for at least 8 hours. Fasting plasma glucose results between 100 to 125 mg/dL indicate increased risk for diabetes (prediabetes). Fasting plasma glucose results greater than or equal to 126 mg/dL meet the criteria for diagnosis of diabetes. In the absence of unequivocal hyperglycemia, results should be confirmed by repeat testing. In a patient with classic symptoms of hyperglycemia or hyperglycemic crisis, random plasma glucose results greater than or equal to 200 mg/dL meet the criteria for diagnosis of diabetes. Reference: Standards of Medical Care in Diabetes 2016, [place] Diabetes Association. Diabetes Care. 2016.39(Suppl 1). Interpretation and review of laboratory results Abnormal [facility] Potassium [Moles/Vol] 4.6 mmol/L 3.7 - 5.1 mmol/L [facility] Protein [Mass/Vol] 6.8 g/dL 6.3 - 8.0 g/dL [facility] Sodium [Moles/Vol] 142 mmol/L 136 - 144 mmol/L [facility] Urea nitrogen [Mass/Vol] 27 mg/dL High 9 - 24 mg/dL [facility] CNOVon 07-08-2024 CNOV Office Visit (FAMPWS ) -------- JOSHUA ESTES ([id number]) 1955 M Date Time Provider Department 07/08/24 8:00 AM TOBI SORTO During your visit today, we recorded the following information about you: Pulse Respiration Blood pressure Weight 75/minute 18/minute 136/84 112.1 kg Tobi Sorto MD 07/09/2024 7:11 AM Signed Chief Complaint Patient presents with: Follow Up: [...] REVSC OPN/PRG FEM/POP W/ANGIOPLASTY UNI Right 09/25/2016 NPS of R fem-pop bypass graft SHX VASCULAR [...] tablets by mouth daily with breakfast. montelukast (more content not included)... Normal [facility] Comprehensive metabolic 2000 panelon 07-08-2024 Albumin [Mass/Vol] 3.7 g/dL Low 3.9-4.9 [facility] Comment on above: Order Comment: Speci men Type: BLOOD SPECIMEN Ordering Facility: [facility] Address: [address] [place] [address] Performed By: #### 2 4323-8 #### [facility] CLIA [id number] [address] [place] [address] [place] ALP [Catalytic activity/Vol] 68 U/L Normal 38-113 [facility] Comment on above: Order Comment: Speci men Type: BLOOD SPECIMEN Ordering Facility: [facility] Address: [address] [place] [address] Performed By: #### 2 4323-8 #### [facility] CLIA [id number] [address] [place] [address] [place] ALT [Catalytic activity/Vol] 24 U/L Normal 10-54 [facility] Comment on above: Order Comment: Speci men Type: BLOOD SPECIMEN Ordering Facility: [facility] Address: [address] [place] [address] Performed By: #### 2 4323-8 #### [facility] CLIA [id number] [address] [place] [address] [place] Anion gap [Moles/Vol] 12 mmol/L Normal 8-15 [facility] Comment on above: Order Comment: Speci men Type: BLOOD SPECIMEN Ordering Facility: [facility] Address: [address] [place] [address] Performed By: #### 2 4323-8 #### [facility] CLIA [id number] [address] [place], [place] [address] [place] AST [Catalytic activity/Vol] 28 U/L Normal 14-40 [facility] Comment on above: Order Comment: Speci men Type: BLOOD SPECIMEN Ordering Facility: [facility] Address: [address] [place] [address] Performed By: #### 2 4323-8 #### [facility] CLIA [id number] [address] [place] [address] [place] Bilirubin [Mass/Vol] 0.6 mg/dL Normal 0.2-1.3 [facility] Comment on above: Order Comment: Speci men Type: BLOOD SPECIMEN Ordering Facility: [facility] Address: [address] [place] [address] Performed By: #### 2 4323-8 #### [facility] CLIA [id number] [address] [place] [address] [place] Calcium [Mass/Vol] 9.0 mg/dL Normal 8.5-10.2 [facility] Comment on above: Order Comment: Speci men Type: BLOOD SPECIMEN Ordering Facility: [facility] Address: [address] [place] [address] Performed By: #### 2 4323-8 #### [facility] CLIA [id number] [address] [place], [place] [address] [place] Chloride [Moles/Vol] 103 mmol/L Normal 98-107 [facility] Comment on above: Order Comment: Speci men Type: BLOOD SPECIMEN Ordering Facility: [facility] Address: [address] [place], [place] [address] Performed By: #### 2 4323-8 #### [facility] CLIA [id number] [address] [place], [place] [address] [place] CO2 [Moles/Vol] 27 mmol/L Normal 22-30 [facility] Comment on above: Order Comment: Speci men Type: BLOOD SPECIMEN Ordering Facility: [facility] Address: [address] [place] [address] Performed By: #### 2 4323-8 #### [facility] CLIA [id number] [address] [place] [address] [place] Creatinine [Mass/Vol] 1.31 mg/dL High 0.73-1.22 [facility] Comment on above: Order Comment: Tucker varghese Type: BLOOD SPECIMEN Ordering Facility: [facility] Address: [address] [place] [address] Performed By: #### 2 4323-8 #### [facility] CLIA [id number] [address] [place] [address] [place] Creatinine and Glomerular filtration rate.predicted panel (S/P/Bld) 59 mL/min/1.73m??? Low >=60 [facility] Comment on above: Order Comment: Tucker varghese Type: BLOOD SPECIMEN Ordering Facility: [facility] Address: [address] [place] [address] Result Comment: Symone mated Glomerular Filtration Rate (eGFR) is calculated using the 2020 CKD-EPI creatinine equation. This equation utilizes serum creatinine, sex, and age as parameters. The creatinine assay has traceable calibration to isotope dilution-mass spectrometry. Refer to KDIGO guidelines for clinical interpretation. In patients with unstable renal function, e.g. those with acute kidney injury, the eGFR may not accurately reflect actual GFR. Performed By: #### 2 4323-8 #### [facility] CLIA [id number] [address] [place] [address] [place] Glucose [Mass/Vol] 137 mg/dL High 74-99 [facility] Comment on above: Order Comment: Tucker varghese Type: BLOOD SPECIMEN Ordering Facility: [facility] Address: [address] [place] [address] Result Comment: The [place] Diabetes Association (ADA) provides guidance for cutoff values for fasting glucose and random glucose. The ADA defines fasting as no caloric intake for at least 8 hours. Fasting plasma glucose results between 100 to 125 mg/dL indicate increased risk for diabetes (prediabetes). Fasting plasma glucose results greater than or equal to 126 mg/dL meet the criteria for diagnosis of diabetes. In the absence of unequivocal hyperglycemia, results should be confirmed by repeat testing. In a patient with classic symptoms of hyperglycemia or hyperglycemic crisis, random plasma glucose results greater than or equal to 200 mg/dL meet the criteria for diagnosis of diabetes. Reference: Standards of Medical Care in Diabetes 2016, [place] Diabetes Association. Diabetes Care. 2016.39(Suppl 1). Performed By: #### 2 4323-8 #### [facility] CLIA [id number] [address] [place] [address] [place] Potassium [Moles/Vol] 4.6 mmol/L Normal 3.7-5.1 [facility] Comment on above: Order Comment: Speci men Type: BLOOD SPECIMEN Ordering Facility: [facility] Address: [address] [place] [address] Performed By: #### 2 4323-8 #### [facility] CLIA [id number] [address] [place], [place] [address] [place] Protein [Mass/Vol] 6.8 g/dL Normal 6.3-8.0 [facility] Comment on above: Order Comment: Speci men Type: BLOOD SPECIMEN Ordering Facility: [facility] Address: [address] [place] [address] Performed By: #### 2 4323-8 #### [facility] CLIA [id number] [address] [place], [place] [address] [place] Sodium [Moles/Vol] 142 mmol/L Normal 136-144 [facility] Comment on above: Order Comment: Speci men Type: BLOOD SPECIMEN Ordering Facility: [facility] Address: [address] [place] [address] Performed By: #### 2 4323-8 #### [facility] CLIA [id number] [address] [place], [place] [address] [place] Urea nitrogen [Mass/Vol] 27 mg/dL High 9-24 [facility] Comment on above: Order Comment: Tucker varghese Type: BLOOD SPECIMEN Ordering Facility: [facility] Address: [address] [place] [address] Performed By: #### 2 4323-8 #### [facility] CLIA [id number] [address] [place] [address] [place] HbA1c (Bld)on 07-08-2024 Average glucose Estimated from glycated hemoglobin (Bld) [Mass/Vol] 143 mg/dL [facility] Comment on above: eAG: (Estimated aver age glucose) is a calculated value from HgbA1c and is commercial representative of the average blood glucose level in the last 2-3 month period. HbA1c (Bld) [Mass fraction] 6.6 % High 4.3 - 5.6 % [facility] Comment on above: [place] Diabetes As sociation guidelines indicate that patients with HgbA1c in the range 5.7-6.4% are at increased risk for development of diabetes, and intervention by lifestyle modification may be beneficial. HgbA1c greater or equal to 6.5% is considered diagnostic of diabetes. Interpretation and review of laboratory results Abnormal [facility] Average glucose Estimated from glycated hemoglobin (Bld) [Mass/Vol] 143 mg/dL Normal [facility] Comment on above: Order Comment: Tucker varghese Type: BLOOD SPECIMEN Ordering Facility: [facility] Address: [address] [place] [address] Result Comment: eAG: (Estimated average glucose) is a calculated value from HgbA1c and is commercial representative of the average blood glucose level in the last 2-3 month period. Performed By: #### 5 5454-3 #### [facility] CLIA [id number] [address] [place] [address] [place] HbA1c (Bld) [Mass fraction] 6.6 % High 4.3-5.6 [facility] Comment on above: Order Comment: Tucker varghese Type: BLOOD SPECIMEN Ordering Facility: [facility] Address: [address] [place] [address] Result Comment: [place] Diabetes Association guidelines indicate that patients with HgbA1c in the range 5.7-6.4% are at increased risk for development of diabetes, and intervention by lifestyle modification may be beneficial. HgbA1c greater or equal to 6.5% is considered diagnostic of diabetes. Performed By: #### 5 5454-3 #### [facility] CLIA [id number] [address] [place] [address] [place] IMMUNOCHEMICAL FECAL OCCULT BLOOD TESTOrdered By: Justino Soria on 07-07-2024 Lower GI hemoglobin IA Ql (Stl) Negative Negative [facility] Lower GI hemoglobin IA Ql (S tl)Ordered By: Justino Soria on 07-07-2024 Interpretation and review of laboratory results Normal [facility] This test was develo ped and its performance characteristics determined by [facility] [place] (-[facility]). It has not been cleared or approved by the FDA. [facility] is regulated under CLIA as qualified to perform high-complexity testing. This test is used for clinical purposes. It should not be regarded as investigational or for research. [facility] Hemoccult Stl Ql IAon 2024 Lower GI hemoglobin IA Ql (Stl) Negative Normal Negative [facility] Comment on above: Order Comment: Speci men Type: STOOL SPECIMEN Ordering Facility: [facility] Address: [address] [place] [address] Performed By: #### 2 9771-3 #### [facility] CLIA [id number] [address] [place] [address] [place] Ferritin SerPl-mCncon 2024 Ferritin [Mass/Vol] 22.0 ng/mL Low 30.3-565.7 [facility] Comment on above: Order Comment: Speci men Type: BLOOD SPECIMEN Ordering Facility: [facility] Address: [address] [place] [address] Result Comment: Gertrudis ected result: Previously reported as 35.3 ng/mL on 06/27/2024 at 2:28 PM EDT. Performed By: #### 2 276-4 #### [facility] CLIA [id number] [place] [address] [place] [facility] CNOVon 06-09-2024 CNOV Office Visit (PODIWS ) -------- FRANKLYNJOSHUA Sergio ([id number]) 1955 M Date Time Provider Department 06/09/24 8:30 AM RAO HILLMAN PODIWS During your visit today, we recorded the following information about you: Fern Aguilar, RN 06/09/2024 8:54 AM Signed Patient presents with: Left Foot - Established Patient, Follow Up, Diabetic Foot Care Right Foot - Established Patient, Follow Up, Diabetic Foot Care Patient presents for 3 month follow up diabetic foot care. Patient has callus to left medial big toe. Also crack in the skin that has been there about 3 weeks, was an open would previously. SRUTHI 03/10/24 Rao Hillman 06/09/2024 8:54 AM Signed Last saw pcp: 04/09/2024 Subjective: Patient presents [...] RTC in 3-4 months. Rao Hillman DPM Allergies As of Date: 06/09/2024 (No Known Allergies) Date Reviewed: 06/09/2024 Reviewed by: Fern Aguilar RN - Fully Assessed Reason for Visit: Established Patient [175] Follow Up [171] Diabetic Foot Care [916] Established Patient [175] Follow Up [171] Diabetic Foot Care [916] Primary Visit Diagnosis:Onychomycosis [B35.1] Other Visit Diagnoses:Pain in toe of left foot [M79.675] Pain in toe of right foot [M79.674] Callus of foot [L84] Type 2 diabetes mellitus with peripheral neuropathy (HCC) [E11.42] Prescriptions as of 06/09/2024 - gabapentin (NEURONTIN) 300 mg capsule Take 3 capsules by mouth daily at bedtime for 90 days. - gabapentin (NEURONTIN) 600 mg tablet Take one tablet between 2-3 PM daily - pramipexole (MIRAPEX) 0.25 mg tablet Take 2 tablets by mouth daily at bedtime. - empagliflozin (JARDIANCE) 25 mg tablet Take 1 tablet by mouth once daily. Take 1 tablet once daily in the morning - fluticasone-salmeterol (ADVAIR) 500-50 mcg/dose dsdv INHALE 1 PUFF INSTRUCTED TWO TIMES A DAY - metFORMIN (GLUCOPHAGE) 1,000 mg tablet Take 1 tablet by mouth two times a day with meals. . - losartan (COZAAR) 100 mg tablet Take 1 tablet by mouth once daily. - atorvastatin (LIPITOR) 40 mg tablet Take 1 tablet by mouth once daily. For cholesterol. - hydroCHLOROthiazid (more content not included)... Normal [facility] 05-28-2024 [facility] Telephone (ADMWST) -------- JOSHUA ESTES ([id number]) 1955 Date Time Provider Department 05/28/24 PODLOGARAUDREY During your visit today, we recorded the following information about you: Kristyn Wiggins 05/28/2024 3:34 PM Signed Patient called asking for a refill on gabapentin 300 mg capsules. Allergies As of Date: 05/28/2024 (No Known Allergies) Date Reviewed: 04/09/2024 Reviewed by: Dolores Jama LPN - Fully Assessed Reason for Visit: Medication Problem [65] Cmt: Med refill. Prescriptions as of 2024 - traZODone (DESYREL) 50 mg tablet Take 1 tablet by mouth daily at bedtime. - ferrous sulfate 325 mg (65 mg iron) tablet Take 1 tablet by mouth once daily. - gabapentin (NEURONTIN) 300 mg capsule Take 3 capsules by mouth daily at bedtime for 90 days. - gabapentin (NEURONTIN) 600 mg tablet Take one tablet between 2-3 PM daily - pramipexole (MIRAPEX) 0.25 mg tablet Take 2 tablets by mouth daily at bedtime. - empagliflozin (JARDIANCE) 25 mg tablet Take 1 tablet by mouth once daily. Take 1 tablet once daily in the morning - fluticasone-salmeterol (ADVAIR) 500-50 mcg/dose dsdv INHALE 1 PUFF INSTRUCTED TWO TIMES A DAY - metFORMIN (GLUCOPHAGE) 1,000 mg tablet Take 1 tablet by mouth two times a day with meals. . - losartan (COZAAR) 100 mg tablet Take 1 tablet by mouth once daily. - atorvastatin (LIPITOR) 40 mg tablet Take 1 tablet by mouth once daily. For cholesterol. - hydroCHLOROthiazide 50 mg tablet Take 1 tablet by mouth once daily. - glimepiride (AMARYL) 4 mg tablet Take 2 tablets by mouth daily with breakfast. - montelukast (SINGULAIR) 10 mg tablet TAKE 1 TABLET BY MOUTH EVERYDAY AT BEDTIME - albuterol HFA (VENTOLIN HFA) 90 mcg/actuation inhaler Inhale 2 Puffs as instructed every 4 hours as needed for wheezing/shortness of breath. - Lactobacillus acidophilus (FLORAJEN ACIDOPHILUS) 20 billion cell capsule Take 1 capsule by mouth once daily. - blood sugar diagnostic (TRUE METRIX GLUCOSE TEST STRIP) test strip Test once daily DX: E11.42, E11.29 - Blood Pressure Monitor (BLOOD PRESSURE KIT) 1 Each once daily. - pentoxifylline ER (TRENTAL) 400 mg CR tablet Take 1 tablet by mouth three times daily with meals. - Blood-Glucose Meter (TRUE METRIX AIR GLUCOSE METER) misc 1 Device twice daily. - Lancets lancets Test once daily DX: E11.42. E11.29 - insulin needles, DISPOSABLE, (BD INSULIN PEN NEEDLE UF) 31 gauge x 5/16 ndle 1 Each once daily. - aspirin 81 mg chewable tablet Take 1 tablet by mouth once daily. Meds Comments as of 09/08/2016: not on sliding scale 09/07/16 Problem List As Of Date 05/28/2024 Noted Resolved Ischemia of lower extremity [I99.8] 12/03/2015 05/26/2018 Malnutrition of mild degree (HCC) [E44.1] 12/09/2015 05/26/2018 Right groin wound [S31.109A] 12/21/2015 05/26/2018 Controlled type 2 diabetes mellitus with microa*12/21/2015 05/29/2018 Peripheral arterial disease (HCC) [I73.9] 12/21/2015 Postoperative wound infection [T81.49XA] 12/21/2015 12/28/2015 Wound infection after surgery [T81.49XA] 12/21/2015 05/26/2018 JOSUÉ (acute kidney injury) (HCC) [N17.9] 12/28/2015 05/26/2018 Abnormality of gait [R26.9] 04/18/2016 Saphenous neuralgia, 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] 02/15/2017 05/26/2018 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] 05/09/2017 05/26/2018 Type 2 diabetes mellitus with peripheral neurop*05/20/2018 Callus of foot [L84] 05/26/2018 Hypercholesteremia [E78.00] 05/26/2018 Tobacco use disorder [F17.200] 06/25/2018 Tobacco use [Z72.0] 06/09/2020 Diabetic ulcer of toe of right foot (HCC) [E11.* 06/09/2020 Essential hypertension, benign [I10] 01/10/2019 GERD (gastroesophageal reflux disease) [K21.9] 01/10/2019 Obesity [E66.9] 01/10/2019 Pain in right foot [M79.671] 01/10/2019 Restless leg syndrome [G25.81] Type 2 diabetes mellitus with diabetic peripher*06/09/2020 Benign paroxysmal positional vertigo of right e*09/06/2020 Right sided sciatica [M54.31] 09/06/2020 PAC (premature atrial contraction) [I49.1] 02/21/2021 Encounter Status:Closed by KRISTYN WIGGINS on 07/10/24 Normal [facility] CNOVon 04-09-2024 CNOV Office Visit (FAMPWS ) -------- JOSHUA ESTES ([id number]) 1955 M Date Time Provider Department 04/09/24 10:40 AM TOBI SORTO FAMPWS During your visit today, we recorded the following information about you: Pulse Respiration Blood pressure Weight 72/minute 18/minute 124/74 111.1 kg Tobi Sorto MD 04/09/2024 11:11 AM Signed Chief Complaint Patient presents with: restless leg: [...] REVSC OPN/PRG FEM/POP W/ANGIOPLASTY UNI Right 09/25/2016 NPS of R fem-pop bypass graft SHX VASCULAR [...] at bedtime. Lactobacillus acidophilus (FLORAJEN ACIDOPHILUS) 20 bi (more content not included)... Normal [facility] 04-08-2024 [facility] JOSHUA ESTES ([id number]) 1955 M Date Time Provider Department 04/08/24 TOBI SORTO [facility] During your visit today, we recorded the following information about you: Amanda Hammer RN 04/08/2024 12:49 PM Signed Patient calls and states that he continues [...] tomorrow morning to discuss next steps. Amanda Hammer RN Allergies As of Date: 04/08/2024 (No Known Allergies) Date Reviewed: 03/10/2024 Reviewed by: Bekah Flynn LPN - Fully Assessed Reason for Visit: Patient Update [1234] Prescriptions as of 04/08/2024 - gabapentin (NEURONTIN) 300 mg capsule Take 3 capsules by mouth daily at bedtime for 30 days. - tiZANidine (ZANAFLEX) 2 mg tablet Take 1-2 tablets at bedtime as needed for muscle spasms - fluticasone-salmeterol (ADVAIR) 500-50 mcg/dose dsdv INHALE 1 PUFF INSTRUCTED TWO TIMES A DAY - gabapentin (NEURONTIN) 600 mg tablet Take one tablet between 2-3 PM daily - metFORMIN (GLUCOPHAGE) 1,000 mg tablet Take 1 tablet by mouth two times a day with meals. . - losartan (COZAAR) 100 mg tablet Take 1 tablet by mouth once daily. - atorvastatin (LIPITOR) 40 mg tablet Take 1 tablet by mouth once daily. For cholesterol. - hydroCHLOROthiazide 50 mg tablet Take 1 tablet by mouth once daily. - glimepiride (AMARYL) 4 mg tablet Take 2 tablets by mouth daily with breakfast. - montelukast (SINGULAIR) 10 mg tablet TAKE 1 TABLET BY MOUTH EVERYDAY AT BEDTIME - empagliflozin (JARDIANCE) 25 mg tablet Take 1 tablet by mouth once daily. Take 1 tablet once daily in the morning - rOPINIRole (REQUIP) 4 mg tablet Take 1 tablet by mouth daily at bedtime. - albuterol HFA (VENTOLIN HFA) 90 mcg/actuation inhaler Inhale 2 Puffs as instructed every 4 hours as needed for wheezing/shortness of breath. - Lactobacillus acidophilus (FLORAJEN ACIDOPHILUS) 20 billion cell capsule Take 1 capsule by mouth once daily. - blood sugar diagnostic (TRUE METRIX GLUCOSE TEST STRIP) test strip Test once daily DX: E11.42, E11.29 - Blood Pressure Monitor (BLOOD PRESSURE KIT) 1 Each once daily. - pentoxifylline ER (TRENTAL) 400 mg CR tablet Take 1 tablet by mouth three times daily with meals. - Blood-Glucose Meter (TRUE METRIX AIR GLUCOSE METER) [facility] 1 Device twice daily. - Lancets lancets Test once daily DX: E11.42. E11.29 - insulin needles, DISPOSABLE, (BD INSULIN PEN NEEDLE UF) 31 gauge x 5/16 ndle 1 Each once daily. - aspirin 81 mg chewable tablet Take 1 tablet by mouth once daily. Meds Comments as of 09/08/2016: not on sliding scale 09/07/16 Problem List As Of Date 04/08/2024 Noted Resolved Ischemia of lower extremity [I99.8] 12/03/2015 05/26/2018 Malnutrition of mild degree (HCC) [E44.1] 12/09/2015 05/26/2018 Right groin wound [S31.109A] 12/21/2015 05/26/2018 Controlled type 2 diabetes mellitus with microa*12/21/2015 05/29/2018 Peripheral arterial disease (HCC) [I73.9] 12/21/2015 Postoperative wound infection [T81.49XA] 12/21/2015 12/28/2015 Wound infection after surgery [T81.49XA] 12/21/2015 05/26/2018 JOSUÉ (acute kidney injury) (HCC) [N17.9] 12/28/2015 05/26/2018 Abnormality of gait [R26.9] 04/18/2016 Saphenous neuralgia, 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] 02/15/2017 05/26/2018 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] 05/09/2017 05/26/2018 Type 2 diabetes mellitus with peripheral neurop*05/20/2018 Callus of foot [L84] 05/26/2018 Hypercholesteremia [E78.00] 05/26/2018 Tobacco use disorder [F17.200] 06/25/2018 Tobacco use [Z72.0] 06/09/2020 Diabetic ulcer of toe of right foot (HCC) [E11.* 06/09/2020 Essential hypertension, benign [I10] 01/10/2019 GERD (gastroesophageal reflux disease) [K21.9] 01/10/2019 Obesity [E66.9] 01/10/2019 Pain in right foot [M79.671] 01/10/2019 Restless leg syndrome [G25.81] Type 2 diabetes mellitus with diabetic peripher*06/09/2020 Benign paroxysmal positional vertigo of right e*09/06/2020 Right sided sciatica [M54.31] 09/06/2020 PAC (premature atrial contraction) [I49.1] 02/21/2021 Encounter Status:Closed by AMANDA HAMMER on 04/08/24 [facility] CNOVon 03-10-2024 CNOV Office Visit (PODIWS ) -------- FRANKLYNJOSHUA ([id number]) 1955 M Date Time Provider Department 03/10/24 9:00 AM RAO HILLMAN PODIWS During your visit today, we recorded the following information about you: Bekah Flynn LPN 03/10/2024 9:30 AM Signed AMB ROOMING INTAKE FLOWSHEET DATA Patient presents with: Left Foot - Established Patient, Follow Up, Diabetic Foot Care Right Foot - Established Patient, Follow Up, Diabetic Foot Care NOEMY Berry Matthew 03/22/2024 7:40 AM Addendum Last saw pcp: 03/04/24 Subjective: Patient presents [...] will help patient. Will call in to [place]. Patient was instructed on the continued importance of diabetic foot care along with proper diet and keeping their blood sugar under control to prevent complications. Stressed the importance of avoiding barefoot walking, wearing good shoes and inspection of feet. Patient is to RTC in 3-4 months. Rao Hillman DPM Referring Provider: RAO HILLMAN [[id number]] Allergies As of Date: 03/10/2024 (No Known Allergies) Date Reviewed: 03/10/2024 Reviewed by: Bekah Flynn LPN - Fully Assessed Reason for Visit: Established Patient [175] Follow Up [171] Diabetic Foot Care [916] Established Patient [175] Follow Up [171] Diabetic Foot Care [916] Primary Visit Diagnosis:Onychomycosis [B35.1] Other Visit Diagnoses:Pain in toe of left foot [M79.675] Pain in toe of right foot [M79.674] Callus of foot [L84] Chronic pain of right ankle [M25.571, G89.29] Type 2 diabetes mellitus with peripheral neuropathy (HCC) [E11.42] Order(s):XR ANKLE GENERAL 3V AP/LAT/OBL RIGHT [[id number]] Order #: [id number] FUTURE Prescriptions as of 03/22/2024 - gabapentin (NEURONTIN) 600 mg tablet Take one tablet between 2-3 PM daily - gabapentin (NEURONTIN) 300 mg capsule Take 3 capsules by mouth daily at bedtime for 30 days. - metFORMIN (GLUCOPHAGE) 1,000 mg tablet Take 1 tablet by mouth two times a day with meals. . - losartan (COZAAR) 100 mg tablet Take 1 tablet by mouth once daily. - atorvastatin (LIPITOR) 40 mg tablet Take 1 tablet by mouth once daily. For cholesterol. - hydroCHLOROthiazide 50 mg tablet Take 1 tablet by mouth once daily. - glimepiride (AMARYL) 4 mg tablet Take 2 tablets by mouth daily with breakfast. - montelukast (SINGULAIR) 10 mg tablet TAKE 1 TABLET BY MOUTH EVERYDAY AT BEDTIME - tiZANidine (ZANAFLEX) 2 mg tablet Take 1-2 tablets at bedtime as needed for muscle spasms - empagliflozin (JARDIANCE) 25 mg tablet Take 1 tablet by mouth once daily. Take 1 tablet once daily in the morning - rOPINIRole (REQUIP) 4 mg tablet Take 1 tablet by mouth daily at bedtime. - fluticasone-salmeterol (WIXELA INHUB) 500-50 mcg/dose dsdv Inhale (more content not included)... Normal [facility] XR ANKLE 3V AP/LAT/OBL RTon 03-10-2024 XR ANKLE 3V AP/LAT/OBL RT * * *Final Report* * * DATE OF EXAM: Mar 10 2024 9:49AM [id number] [id number] - XR ANKLE 3V AP/LAT/OBL RT / PROCEDURE REASON: multiple diagnoses * * * * Physician Interpretation * * * * EXAMINATION: XR ANKLE 3V AP/LAT/OBL RT CLINICAL HISTORY: Chronic pain of right ankle Technique: XR ANKLE 3V AP/LAT/OBL RT -- RIGHT with 3 views on 3 images Comparison: None RESULT: No acute fracture or dislocation. Ankle mortise is maintained. Plantar and posterior calcaneal spurs. IMPRESSION: No acute osseous abnormality 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ENCIA Transcribe Date/Time: Mar 11 2024 5:09P Dictated by : LILY ORO MD This examination was interpreted and the report reviewed and electronically signed by: LILY ORO MD on Dec 10 2024 5:10PM EST [id number] [facility] -------- JOSHUA ESTES ([id number]) 1955 M Date Time Provider Department 03/07/24 [facility] During your visit today, we recorded the following information about you: Dolores Jama LPN 03/07/2024 12:39 PM Signed ----- Message from Audrey Packer APRN.EDENILSON sent at 03/07/2024 5:52 AM EST ----- Iron levels are fine. Audrey Packer APRN.Dolores Velazquez LPN 03/07/2024 1:50 PM Signed Phoned patient and reviewed message with him. Patient voiced understanding. Dolores Jama LPN Allergies As of Date: 03/07/2024 (No Known Allergies) Date Reviewed: 03/04/2024 Reviewed by: Marleny Raygoza LPN - Fully Assessed Reason for Visit: Results [95] Prescriptions as of 03/07/2024 - gabapentin (NEURONTIN) 600 mg tablet Take one tablet between 2-3 PM daily - gabapentin (NEURONTIN) 300 mg capsule Take 3 capsules by mouth daily at bedtime for 30 days. - metFORMIN (GLUCOPHAGE) 1,000 mg tablet Take 1 tablet by mouth two times a day with meals. . - losartan (COZAAR) 100 mg tablet Take 1 tablet by mouth once daily. - atorvastatin (LIPITOR) 40 mg tablet Take 1 tablet by mouth once daily. For cholesterol. - hydroCHLOROthiazide 50 mg tablet Take 1 tablet by mouth once daily. - glimepiride (AMARYL) 4 mg tablet Take 2 tablets by mouth daily with breakfast. - montelukast (SINGULAIR) 10 mg tablet TAKE 1 TABLET BY MOUTH EVERYDAY AT BEDTIME - tiZANidine (ZANAFLEX) 2 mg tablet Take 1-2 tablets at bedtime as needed for muscle spasms - empagliflozin (JARDIANCE) 25 mg tablet Take 1 tablet by mouth once daily. Take 1 tablet once daily in the morning - rOPINIRole (REQUIP) 4 mg tablet Take 1 tablet by mouth daily at bedtime. - fluticasone-salmeterol (WIXELA INHUB) 500-50 mcg/dose dsdv Inhale 1 Puff as instructed two times a day. Please give the patient 1 inhaler with 4 refills. - albuterol HFA (VENTOLIN HFA) 90 mcg/actuation inhaler Inhale 2 Puffs as instructed every 4 hours as needed for wheezing/shortness of breath. - Lactobacillus acidophilus (FLORAJEN ACIDOPHILUS) 20 billion cell capsule Take 1 capsule by mouth once daily. - blood sugar diagnostic (TRUE METRIX GLUCOSE TEST STRIP) test strip Test once daily DX: E11.42, E11.29 - Blood Pressure Monitor (BLOOD PRESSURE KIT) 1 Each once daily. - pentoxifylline ER (TRENTAL) 400 mg CR tablet Take 1 tablet by mouth three times daily with meals. - Blood-Glucose Meter (TRUE METRIX AIR GLUCOSE METER) misc 1 Device twice daily. - Lancets lancets Test once daily DX: E11.42. E11.29 - insulin needles, DISPOSABLE, (BD INSULIN PEN NEEDLE UF) 31 gauge x 5/16 ndle 1 Each once daily. - aspirin 81 mg chewable tablet Take 1 tablet by mouth once daily. 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*12/21/2015 05/29/2018 Peripheral arterial disease (HCC) [I73.9] 12/21/2015 Postoperative wound infection [T81.49XA] 12/21/2015 12/28/2015 Wound infection after surgery [T81.49XA] 12/21/2015 05/26/2018 JOSUÉ (acute kidney injury) (HCC) [N17.9] 12/28/2015 05/26/2018 Abnormality of gait [R26.9] 04/18/2016 Saphenous neuralgia, 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] 02/15/2017 05/26/2018 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] 05/09/2017 05/26/2018 Type 2 diabetes mellitus with peripheral neurop*05/20/2018 Callus of foot [L84] 05/26/2018 Hypercholesteremia [E78.00] 05/26/2018 Tobacco use disorder [F17.200] 06/25/2018 Tobacco use [Z72.0] 06/09/2020 Diabetic ulcer of toe of right foot (HCC) [E11.* 06/09/2020 Essential hypertension, benign [I10] 01/10/2019 GERD (gastroesophageal reflux disease) [K21.9] 01/10/2019 Obesity [E66.9] 01/10/2019 Pain in right foot [M79.671] 01/10/2019 Restless leg syndrome [G25.81] Type 2 diabetes mellitus with diabetic peripher*06/09/2020 Benign paroxysmal positional vertigo of right e*09/06/2020 Right sided sciatica [M54.31] 09/06/2020 PAC (premature atrial contraction) [I49.1] 02/21/2021 Encounter Status:Closed by DOLORES JAMA on 03/07/24 [facility] CNOVon 03-04-2024 CNOV Office Visit (MYRONWS ) -------- JOSHUA ESTES ([id number]) 1955 M Date Time Provider Department 03/04/24 9:20 AM PODLOGAUDREY KWAN During your visit today, we recorded the following information about you: Pulse Respiration Blood pressure Weight 70/minute 18/minute 122/78 110.1 kg Podlogar, IRINEO Ventura.EDENILSON 03/04/2024 10:37 AM Signed 03/04/2024 Patient presents with: Follow Up: Restless [...] 01/07/2025 Colorectal Cancer Screening due on 09/12/2028 (more content not included)... Normal [facility] Iron and Iron binding capaci ty panelon 03-04-2024 Iron [Mass/Vol] 62 ug/dL Normal 41-186 [facility] Comment on above: Order Comment: Speci men Type: BLOOD SPECIMEN Ordering Facility: [facility] Address: [address] [place] [address] Performed By: #### 5 5454-3 #### [facility] CLIA [id number] [address] [place] [address] [place] Iron binding capacity [Mass/Vol] 347 ug/dL Normal 232-386 [facility] Comment on above: Order Comment: Speci men Type: BLOOD SPECIMEN Ordering Facility: [facility] Address: [address] [place] [address] Performed By: #### 5 5454-3 #### [facility] CLIA [id number] [address] [place] [address] [place] Iron/TIBC [Molar ratio] 17.9 % Normal 15.0-57.0 [facility] Comment on above: Order Comment: Speci men Type: BLOOD SPECIMEN Ordering Facility: [facility] Address: [address] [place] [address] Performed By: #### 5 5454-3 #### [facility] CLIA [id number] [address] [place] [address] [place] Vanessa 02-12-2024 [facility] Telephone (FAMPWS) -------- FRANKLYNJOSHUA Sharp ([id number]) 1955 M Date Time Provider Department 02/12/24 TOBI SORTO During your visit today, we recorded the following information about you: Dolores Jama LPN 02/12/2024 10:38 AM Signed Patient reported he had discussed sleep study with Audrey but did not want to complete one initially. Patient now requesting at home sleep study. Dolores Jama LPN PodAudrey key APRN.[employer] 02/12/2024 10:50 AM Signed Sorry I don't see where I documented we talked about this. Does he have daytime fatigue or told he has loud snoring or witnessed episodes of apnea? Audrey Packer, IRINEO.Jessica Cisneros RN 02/13/2024 9:25 AM Signed Left for patient to return call to nurse for provider's message. Dolores Sawyer LPN 02/13/2024 11:08 AM Signed Pt states he definitely has daytime fatigue AND loud snoring. To his knowledge he has not had any witnessed episodes of apnea. Pt states he wakes up every 2 hrs every single night. Occasionally he wakes with anxiety, states he feels like he can't get air in. After he calms down he is usually able to fall back asleep. NOEMY Rajput Julie, APRN.[facility] 02/13/2024 4:46 PM Signed Patient would like home sleep study ordered. Endorses daytime fatigue and lod snoring. Reports waking up at night feeling like he can not get air in. Order placed. Please let patient know Marleny Raygoza LPN 02/13/2024 5:02 PM Signed Telephone call placed to patient to make aware, message left to call office back for update. NOEMY Fontenot Rilee, MA 02/19/2024 10:28 AM Signed [employer] [place] message sent to pt notifying him we've attempted to reach him by phone with message left on for a return call to office. Asked pt to contact office and speak with Triage Nurse. Notify pt of message below from Provider. DILCIA Bonilla Lori, LPN 02/20/2024 3:23 PM Signed Phoned patient and updated him order placed and gave him the toll free number for the HSAT. He voiced understanding and reports he will call and get it set up. Dolores Jama LPN Allergies As of Date: 02/12/2024 (No Known Allergies) Date Reviewed: 02/06/2024 Reviewed by: Chanda Baum LPN - Fully Assessed Reason for Visit: Orders [681] Primary Visit Diagnosis:Daytime somnolence [R40.0] Other Visit Diagnosis:Snoring [R06.83] Order(s):HOME SLEEP APNEA TEST (HSAT) [[id number]] Order #: [id number] FUTURE Prescriptions as of 02/20/2024 - metFORMIN (GLUCOPHAGE) 1,000 mg tablet Take 1 tablet by mouth two times a day with meals. . - losartan (COZAAR) 100 mg tablet Take 1 tablet by mouth once daily. - atorvastatin (LIPITOR) 40 mg tablet Take 1 tablet by mouth once daily. For cholesterol. - hydroCHLOROthiazide 50 mg tablet Take 1 tablet by mouth once daily. - glimepiride (AMARYL) 4 mg tablet Take 2 tablets by mouth daily with breakfast. - montelukast (SINGULAIR) 10 mg tablet TAKE 1 TABLET BY MOUTH EVERYDAY AT BEDTIME - tiZANidine (ZANAFLEX) 2 mg tablet Take 1-2 tablets at bedtime as needed for muscle spasms - gabapentin (NEURONTIN) 400 mg capsule Take 1 capsule by mouth three times a day for 30 days. Take one capsule three times a day for 30 days - empagliflozin (JARDIANCE) 25 mg tablet Take 1 tablet by mouth once daily. Take 1 tablet once daily in the morning - rOPINIRole (REQUIP) 4 mg tablet Take 1 tablet by mouth daily at bedtime. - fluticasone-salmeterol (WIXELA INHUB) 500-50 mcg/dose dsdv Inhale 1 Puff as instructed two times a day. Please give the patient 1 inhaler with 4 refills. - albuterol HFA (VENTOLIN HFA) 90 mcg/actuation inhaler Inhale 2 Puffs as instructed every 4 hours as needed for wheezing/shortness of breath. - Lactobacillus acidophilus (FLORAJEN ACIDOPHILUS) 20 billion cell capsule Take 1 capsule by mouth once daily. - blood sugar diagnostic (TRUE METRIX GLUCOSE TEST STRIP) test strip Test once daily DX: E11.42, E11.29 - Blood Pressure Monitor (BLOOD PRESSURE KIT) 1 Each once daily. - pentoxifylline ER (TRENTAL) 400 mg CR tablet Take 1 tablet by mouth three times daily with meals. - Blood-Glucose Meter (TRUE METRIX AIR GLUCOSE METER) misc 1 Device twice daily. - Lancets lancets Test once daily DX: E11.42. E11.29 - insulin needles, DISPOSABLE, (BD INSULIN PEN NEEDLE UF) 31 gauge x 5/16 ndle 1 Each once daily. - aspirin 81 mg chewable tablet Take 1 tablet by mouth once daily. 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 Normal [facility] CNOVon 02-06-2024 CNOV Office Visit (SUMMERSMN ) -------- JOSHUA ESTES ([id number]) 1955 M Date Time Provider Department 02/06/24 1:00 PM ROLANDO JEAN During your visit today, we recorded the following information about you: Temperature Pulse Respiration Blood pressure 98.1 degrees 57/minute 18/minute 143/77 Weight Height 109.5 kg 1.829 m Rolando Jean MD 02/06/2024 4:06 PM Signed [facility] [place] DEPARTMENT OF VASCULAR SURGERY OUTPATIENT VISIT DATE [...] He has been seen by his local psychology technician. He denies any claudication symptoms or foot [...] REVSC OPN/PRG FEM/POP W/ANGIOPLASTY UNI Right 09/25/2016 NPS of R fem-pop bypass graft SHX VASCULAR [...] strip Test once daily DX: E11.42, E11.29 (more content not included)... Normal [facility] PVR ANK/GRULLON/[facility]E [facility] on 02-06-2024 PVR ANK/GRULLON/[facility] Non-Invasive Vascular Laboratory [facility] F30 Lower Extremity Arterial Physiology Study Bilateral/Complete Date of service/time: 02/06/2024 2:14:45 PM Name: MR. JOSHUA ESTES Date of : 1955 Age: 68 years Gender: M Clinical Indication Follow up:. Post operative repair surveillance 12/08/15: Right common femoral artery interposition graft and right femoral-tibioperoneal trunk bypass. 05/09/17: revision of right femoral-tibioperoneal trunk bypass with an interposition segment. TECHNIQUE -------- An arterial physiological examination was performed, including measurement of blood pressures using continuous wave Doppler and recording of plethysmographic with or without Doppler waveforms at the below-mentioned limb segments. FINDINGS -------- RIGHT SIDE AT REST Right Pressures Brachial: 142 mmHg Ankle dorsalis pedis: 132 mmHg CHARLENE: 0.93 Ankle posterior tibial: 146 mmHg CHARLENE: 1.03 Digit: 72 mmHg Right PVR Waveforms Ankle: Normal. Transmetatarsal: Normal. Digit: Mildly dampened. LEFT SIDE AT REST Left Pressures Brachial: 140 mmHg Ankle dorsalis pedis: 134 mmHg CHARLENE: 0.94 Ankle posterior tibial: 142 mmHg CHARLENE: 1.00 Digit: 87 mmHg Left PVR Waveforms Ankle: Normal. Transmetatarsal: Mildly dampened. Digit: Mildly dampened. IMPRESSION Irregular cardiac rhythm noted. Compared to prior study of 05/03/2023, there is no significant change. RIGHT SIDE Resting right ankle brachial index: 1.03 Right toe brachial index: 0.51 Normal ankle brachial index at rest in the right leg. Abnormal toe brachial index at rest is evidence of peripheral artery disease. Right ankle: Normal at rest. LEFT SIDE Resting left ankle brachial index: 1.00 Left toe brachial index: 0.61 Normal ankle brachial index at rest in the left leg. Abnormal toe brachial index at rest is evidence of peripheral artery disease. Left ankle: Normal at rest. Technologist: Lois Ackerman RVT Ordering physician: ROLANDO JEAN Interpreting physician: Elizabeth Jaquez MD, MAHAMED Final CC [employer] Medical Image : [id number] DynamicsSISUID See Link below for Image Normal [facility] LEG ARTERIAL PERIPH UNL V LABon 02-06-2024 US LEG ARTERIAL PERIPH UNL VAS LAB Non-Invasive Vascular Laboratory [facility] F30 Lower Extremity Arterial Duplex Unilateral - Right Date of service/time: 02/06/2024 2:38:07 PM Name: MR. JOSHUA ESTES Date of : 1955 Age: 68 years Gender: M Clinical Indication Follow up:. Post operative repair surveillance 12/08/15: Right common femoral artery interposition graft and right femoral-tibioperoneal trunk bypass. 05/09/17: revision of right femoral-tibioperoneal trunk bypass with an interposition segment. TECHNIQUE -------- An arterial duplex ultrasound examination was performed, including grayscale imaging and color Doppler and spectral Doppler examination of the below mentioned arteries. FINDINGS -------- RIGHT ARTERIES External iliac distal: PSV: 110 cm/s. EDV: 0 cm/s. Multiphasic waveform. VESSEL/GRAFT Common femoral artery interposition graft proximal anastomosis: PSV: 134 cm/s. EDV: 0 cm/s. Multiphasic waveform. Common femoral artery interposition graft proximal: PSV: 211 cm/s. EDV: 0 cm/s. Multiphasic waveform. Common femoral artery interposition graft mid: PSV: 187 cm/s. EDV: 0 cm/s. Multiphasic waveform. Common femoral artery interposition graft distal: PSV: 131 cm/s. EDV: 0 cm/s. Multiphasic waveform. Common femoral artery interposition graft distal anastomosis: PSV: 119 cm/s. EDV: 0 cm/s. Multiphasic waveform. Common femoral artery distal: PSV: 90 cm/s. EDV: 0 cm/s. Multiphasic waveform. Profunda femoral artery proximal: PSV: 110 cm/s. EDV: 0 cm/s. Multiphasic waveform. Superficial femoral artery origin: PSV: 107 cm/s. EDV: 0 cm/s. Multiphasic waveform. Superficial femoral artery proximal: PSV: 101 cm/s. EDV: 0 cm/s. Multiphasic waveform. Superficial femoral artery mid: PSV: 154 cm/s. EDV: 0 cm/s. Multiphasic waveform. Superficial femoral artery distal: PSV: 149 cm/s. EDV: 0 cm/s. Multiphasic waveform. Femoral-tibioperoneal trunk bypass graft proximal anastomosis: PSV: 224 cm/s. EDV: 0 cm/s. Multiphasic waveform. Femoral-tibioperoneal trunk bypass graft proximal: PSV: 81 cm/s. EDV: 0 cm/s. Multiphasic waveform. Femoral-tibioperoneal trunk bypass graft mid: PSV: 89 cm/s. EDV: 0 cm/s. Multiphasic waveform. Femoral-tibioperoneal trunk bypass graft distal: PSV: 43 cm/s. EDV: 0 cm/s. Multiphasic waveform. Femoral-tibioperoneal trunk bypass graft distal anastomosis: PSV: 66 cm/s. EDV: 0 cm/s. Multiphasic waveform. Tibioperoneal trunk : PSV: 55 cm/s. EDV: 0 cm/s. Multiphasic waveform. Posterior tibial artery proximal: PSV: 65 cm/s. EDV: 0 cm/s. Multiphasic waveform. Peroneal artery proximal: PSV: 87 cm/s. EDV: 0 cm/s. Multiphasic waveform. IMPRESSION Compared to prior study of 06/18/2020, Unable to appreciate right superficial femoral artery 50-99% stenosis and mobile thrombus on today's exam. 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 RIGHT SIDE External iliac artery distal: patent . Common femoral artery throughout: patent . Interposition graft from proximal to distal vessel noted. Superficial femoral artery mid to distal: plaque noted without evidence of hemodynamically significant stenosis . Femoral-tibioperoneal trunk bypass graft distal: aneurysm measuring 1.89 x 1.60 x 2.48 cm. Mural thrombus noted. Tibioperoneal trunk : patent . Posterior tibial artery proximal: patent . Peroneal artery proximal: patent . Technologist: Lois Ackerman RVT Ordering physician: ROLANDO JEAN Interpreting physician: Elizabeth Jaquez MD, MAHAMED Final CC [employer] Medical Image : [id number] ID See Link below for Image Normal [facility] CNOVon 01-08-2024 CNOV Office Visit (REENA ) -------- JOSHUA ESTES ([id number]) 1955 M Date Time Provider Department 01/08/24 8:00 AM AUDREY PACKER During your visit today, we recorded the following information about you: Pulse Respiration Blood pressure Weight 82/minute 18/minute 132/78 110.5 kg Audrey Packer APRN.CNP 01/08/2024 10:05 AM Signed 01/08/2024 Patient presents with: F/U 6 months SUBJECTIVE: This is a 68 year old that is here today for Above Complaints. DIABETES MELLITUS: Since our last visit he denies excessive thirst or increased frequency of urination, chest pain or dyspnea , new or unusual visual symptoms, low sugar/hypoglycemic reactions, weight loss/gain, lightheadedness/dizzines s, and bowel changes/loose stoolsFollows a diabetic diet [...] medications for this visit. Medications and allergies (more content not included)... Normal [facility] -------- JOSHUA ESTES ([id number]) 1955 M Date Time Provider Department 01/08/24 TOBI SORTO PODCCP During your visit today, we recorded the following information about you: Angel Marie 01/08/2024 4:04 PM Signed Reason for call: Mr Estes called and he would like to schedule an appointment with Contact Name (If not the pt): Home and cell number: [phone] Diagnosis: Post PAD surgery , pt having issues with is leg Kind Angel Schuler Nadine 01/10/2024 11:27 AM Signed Triage please? What testing will he need? Eligio Lin Nadine 01/10/2024 2:38 PM Signed Spoke with patient appt scheduled 02/06/24 with with testing. Allergies As of Date: 01/08/2024 (No Known Allergies) Date Reviewed: 01/08/2024 Reviewed by: Marleny Raygoza LPN - Fully Assessed Reason for Visit: Appointment [186] Prescriptions as of 01/10/2024 - gabapentin (NEURONTIN) 400 mg capsule Take 1 capsule by mouth three times a day for 30 days. Take one capsule three times a day for 30 days - tiZANidine (ZANAFLEX) 2 mg tablet Take 1-2 tablets at bedtime as needed for muscle spasms - empagliflozin (JARDIANCE) 25 mg tablet Take 1 tablet by mouth once daily. Take 1 tablet once daily in the morning - montelukast (SINGULAIR) 10 mg tablet TAKE 1 TABLET BY MOUTH EVERYDAY AT BEDTIME - rOPINIRole (REQUIP) 4 mg tablet Take 1 tablet by mouth daily at bedtime. - fluticasone-salmeterol (WIXELA INHUB) 500-50 mcg/dose dsdv Inhale 1 Puff as instructed two times a day. Please give the patient 1 inhaler with 4 refills. - atorvastatin (LIPITOR) 40 mg tablet Take 1 tablet by mouth once daily. For cholesterol. - hydroCHLOROthiazide 50 mg tablet Take 1 tablet by mouth once daily. - glimepiride (AMARYL) 4 mg tablet Take 2 tablets by mouth daily with breakfast. - metFORMIN (GLUCOPHAGE) 1,000 mg tablet Take 1 tablet by mouth two times a day with meals. . - losartan (COZAAR) 100 mg tablet Take 1 tablet by mouth once daily. - SILVASORB GlER APPLY TOPICALLY TO AFFECTED AREA EVERY DAY - albuterol HFA (VENTOLIN HFA) 90 mcg/actuation inhaler Inhale 2 Puffs as instructed every 4 hours as needed for wheezing/shortness of breath. - Lactobacillus acidophilus (FLORAJEN ACIDOPHILUS) 20 billion cell capsule Take 1 capsule by mouth once daily. - blood sugar diagnostic (TRUE METRIX GLUCOSE TEST STRIP) test strip Test once daily DX: E11.42, E11.29 - Blood Pressure Monitor (BLOOD PRESSURE KIT) 1 Each once daily. - pentoxifylline ER (TRENTAL) 400 mg CR tablet Take 1 tablet by mouth three times daily with meals. - Blood-Glucose Meter (TRUE METRIX AIR GLUCOSE METER) misc 1 Device twice daily. - Lancets lancets Test once daily DX: E11.42. E11.29 - insulin needles, DISPOSABLE, (BD INSULIN PEN NEEDLE UF) 31 gauge x 5/16 ndle 1 Each once daily. - aspirin 81 mg chewable tablet Take 1 tablet by mouth once daily. 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*12/21/2015 05/29/2018 Peripheral arterial disease (HCC) [I73.9] 12/21/2015 Postoperative wound infection [T81.49XA] 12/21/2015 12/28/2015 Wound infection after surgery [T81.49XA] 12/21/2015 05/26/2018 JOSUÉ (acute kidney injury) (HCC) [N17.9] 12/28/2015 05/26/2018 Abnormality of gait [R26.9] 04/18/2016 Saphenous neuralgia, 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] 02/15/2017 05/26/2018 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] 05/09/2017 05/26/2018 Type 2 diabetes mellitus with peripheral neurop*05/20/2018 Callus of foot [L84] 05/26/2018 Hyperlipidemia with target LDL less than 100 [E*05/26/2018 Tobacco use disorder [F17.200] 06/25/2018 Tobacco use [Z72.0] 06/09/2020 Diabetic ulcer of toe of right foot (HCC) [E11.* 06/09/2020 Essential hypertension, benign [I10] 01/10/2019 GERD (gastroesophageal reflux disease) [K21.9] 01/10/2019 Obesity [E66.9] 01/10/2019 Pain in right foot [M79.671] 01/10/2019 Restless leg syndrome [G25.81] Type 2 diabetes mellitus with diabetic peripher*06/09/2020 Benign paroxysmal positional vertigo of right e*09/06/2020 Right sided sciatica [M54.31] 09/06/2020 PAC (premature atrial contraction) [I49.1] 02/21/2021 Encounter Status:Closed by TREASURE FERNANDO on 01/10/24 [facility] Vanessa 12-19-2023 EDENILSONN Telephone (REENA) -------- JOSHUA ESTES ([id number]) 1955 M Date Time Provider Department 12/19/23 TOBI SORTO During your visit today, we recorded the following information about you: Marleny Raygoza LPN 12/19/2023 7:24 PM Signed Patient telephoned. States he is not getting any relief from the new medication he started for restless leg/muscle spasms. (Tizanidine) Says he is up until 3am most nights where his legs are jumping like crazy and not getting any sleep. Would like some advise on what to do next. Please advise. NOEMY Fontenot Christopher B, MD 12/20/2023 9:19 AM Signed He is on max dose of Requip for RLS. Has he tried taking 2 tablets of the Zanaflex at night? Rosalva Awad MA 12/20/2023 1:46 PM Signed Pt notified. He states he taking 2 Zanaflex every night since being started taking. Any other suggestions? DILCIA Leonard Christopher B, MD 12/20/2023 2:05 PM Signed He is also on gabapentin which helps with RLS, we could try increasing dosage to 400 mg TID. If agreeable, will send new rx. Rosalva Awad MA 12/20/2023 3:23 PM Signed Pt agreeable to increase Gabapentin. Uses [employer] [facility]. DILCIA Leonard Christopher B, MD 12/21/2023 8:02 AM Signed Rx sent for 30 days for 400 mg gabapentin TID. Call if symptoms not improving in 2 weeks. Allergies As of Date: 12/19/2023 (No Known Allergies) Date Reviewed: 12/05/2023 Reviewed by: Marleny Raygoza LPN - Fully Assessed Order(s):gabapentin (NEURONTIN) 400 mg capsuleTake 1 capsule by mouth three times a day for 30 days. Take one capsule three times a day for 30 daysDisp: 90 capsuleRfl: 0 Prescriptions as of 12/21/2023 - gabapentin (NEURONTIN) 400 mg capsule Take 1 capsule by mouth three times a day for 30 days. Take one capsule three times a day for 30 days - tiZANidine (ZANAFLEX) 2 mg tablet Take 1-2 tablets at bedtime as needed for muscle spasms - empagliflozin (JARDIANCE) 25 mg tablet Take 1 tablet by mouth once daily. Take 1 tablet once daily in the morning - montelukast (SINGULAIR) 10 mg tablet TAKE 1 TABLET BY MOUTH EVERYDAY AT BEDTIME - rOPINIRole (REQUIP) 4 mg tablet Take 1 tablet by mouth daily at bedtime. - fluticasone-salmeterol (WIXELA INHUB) 500-50 mcg/dose dsdv Inhale 1 Puff as instructed two times a day. Please give the patient 1 inhaler with 4 refills. - atorvastatin (LIPITOR) 40 mg tablet Take 1 tablet by mouth once daily. For cholesterol. - hydroCHLOROthiazide 50 mg tablet Take 1 tablet by mouth once daily. - glimepiride (AMARYL) 4 mg tablet Take 2 tablets by mouth daily with breakfast. - metFORMIN (GLUCOPHAGE) 1,000 mg tablet Take 1 tablet by mouth two times a day with meals. . - losartan (COZAAR) 100 mg tablet Take 1 tablet by mouth once daily. - SILVASORB GlER APPLY TOPICALLY TO AFFECTED AREA EVERY DAY - albuterol HFA (VENTOLIN HFA) 90 mcg/actuation inhaler Inhale 2 Puffs as instructed every 4 hours as needed for wheezing/shortness of breath. - Lactobacillus acidophilus (FLORAJEN ACIDOPHILUS) 20 billion cell capsule Take 1 capsule by mouth once daily. - blood sugar diagnostic (TRUE METRIX GLUCOSE TEST STRIP) test strip Test once daily DX: E11.42, E11.29 - Blood Pressure Monitor (BLOOD PRESSURE KIT) 1 Each once daily. - pentoxifylline ER (TRENTAL) 400 mg CR tablet Take 1 tablet by mouth three times daily with meals. - Blood-Glucose Meter (TRUE METRIX AIR GLUCOSE METER) misc 1 Device twice daily. - Lancets lancets Test once daily DX: E11.42. E11.29 - insulin needles, DISPOSABLE, (BD INSULIN PEN NEEDLE UF) 31 gauge x 5/16 ndle 1 Each once daily. - aspirin 81 mg chewable tablet Take 1 tablet by mouth once daily. 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/2015 05/29/2018 Peripheral arterial disease (HCC) [I73.9] 12/21/2015 Postoperative wound infection [T81.49XA] 12/21/2015 12/28/2015 Wound infection after surgery [T81.49XA] 12/21/2015 05/26/2018 JOSUÉ (acute kidney injury) (HCC) [N17.9] 12/28/2015 05/26/2018 Abnormality of gait [R26.9] 04/18/2016 Saphenous neuralgia, 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 Normal [facility] CBC W Auto Differential pane l (Bld)on 12-05-2023 Basophils (Bld) [#/Vol] 0.11 10*3/uL High <0.11 [facility] Comment on above: Order Comment: Speci men Type: BLOOD SPECIMEN Ordering Facility: [facility] Address: [address] [place] [address] Performed By: #### 5 5454-3 #### [facility] CLIA [id number] [address] [place] [address] [place] Basophils/100 WBC (Bld) 1.1 % Normal [facility] Comment on above: Order Comment: Speci men Type: BLOOD SPECIMEN Ordering Facility: [facility] Address: [address] [place] [address] Performed By: #### 5 5454-3 #### [facility] CLIA [id number] [address] [place] [address] [place] Differential cell count method Nom (Bld) Auto Normal [facility] Comment on above: Order Comment: Speci men Type: BLOOD SPECIMEN Ordering Facility: [facility] Address: [address] [place] [address] Performed By: #### 5 5454-3 #### [facility] CLIA [id number] [address] [place] [address] [place] Eosinophils (Bld) [#/Vol] 0.39 10*3/uL Normal <0.46 [facility] Comment on above: Order Comment: Speci men Type: BLOOD SPECIMEN Ordering Facility: [facility] Address: [address] [place] [address] Performed By: #### 5 5454-3 #### [facility] CLIA [id number] [address] [place] [address] [place] Eosinophils/100 WBC (Bld) 3.9 % Normal [facility] Comment on above: Order Comment: Speci men Type: BLOOD SPECIMEN Ordering Facility: [facility] Address: [address] [place] [address] Performed By: #### 5 5454-3 #### [facility] CLIA [id number] [address] [place] [address] [place] Erythrocyte distribution width (RBC) [Ratio] 14.6 % Normal 11.5-15.0 [facility] Comment on above: Order Comment: Speci men Type: BLOOD SPECIMEN Ordering Facility: [facility] Address: [address] [place] [address] Performed By: #### 5 5454-3 #### [facility] CLIA [id number] [address] [place] [address] [place] Hematocrit (Bld) [Volume fraction] 55.4 % High 39.0-51.0 [facility] Comment on above: Order Comment: Speci men Type: BLOOD SPECIMEN Ordering Facility: [facility] Address: [address] [place], [place] [address] Performed By: #### 5 5454-3 #### [facility] CLIA [id number] [address] [place] [address] [place] Hemoglobin (Bld) [Mass/Vol] 17.4 g/dL High 13.0-17.0 [facility] Comment on above: Order Comment: Speci men Type: BLOOD SPECIMEN Ordering Facility: [facility] Address: [address] [place] [address] Performed By: #### 5 5454-3 #### [facility] CLIA [id number] [address] [place] [address] [place] Immature granulocytes (Bld) [#/Vol] 0.05 10*3/uL Normal <0.10 [facility] Comment on above: Order Comment: Speci men Type: BLOOD SPECIMEN Ordering Facility: [facility] Address: [address] [place] [address] Performed By: #### 5 5454-3 #### [facility] CLIA [id number] [address] [place] [address] [place] Immature granulocytes/100 WBC (Bld) 0.5 % Normal [facility] Comment on above: Order Comment: Speci men Type: BLOOD SPECIMEN Ordering Facility: [facility] Address: [address] [place] [address] Performed By: #### 5 5454-3 #### [facility] CLIA [id number] [address] [place] [address] [place] Lymphocytes (Bld) [#/Vol] 2.50 10*3/uL Normal 1.00-4.00 [facility] Comment on above: Order Comment: Speci men Type: BLOOD SPECIMEN Ordering Facility: [facility] Address: [address] [place] [address] Performed By: #### 5 5454-3 #### [facility] CLIA [id number] [address] [place] [address] [place] Lymphocytes/100 WBC (Bld) 25.3 % Normal [facility] Comment on above: Order Comment: Speci men Type: BLOOD SPECIMEN Ordering Facility: [facility] Address: [address] [place] [address] Performed By: #### 5 5454-3 #### [facility] CLIA [id number] [address] [place] [address] [place] MCH (RBC) [Entitic mass] 31.5 pg Normal 26.0-34.0 [facility] Comment on above: Order Comment: Speci men Type: BLOOD SPECIMEN Ordering Facility: [facility] Address: [address] [place] [address] Performed By: #### 5 5454-3 #### [facility] CLIA [id number] [address] [place] [address] [place] MCHC (RBC) [Mass/Vol] 31.4 g/dL Normal 30.5-36.0 [facility] Comment on above: Order Comment: Speci men Type: BLOOD SPECIMEN Ordering Facility: [facility] Address: [address] [place] [address] Performed By: #### 5 5454-3 #### [facility] CLIA [id number] [address] [place] [address] [place] MCV (RBC) [Entitic vol] 100.2 fL High 80.0-100.0 [facility] Comment on above: Order Comment: Speci men Type: BLOOD SPECIMEN Ordering Facility: [facility] Address: [address] [place] [address] Performed By: #### 5 5454-3 #### [facility] CLIA [id number] [address] [place] [address] [place] Monocytes (Bld) [#/Vol] 0.84 10*3/uL Normal <0.87 [facility] Comment on above: Order Comment: Speci men Type: BLOOD SPECIMEN Ordering Facility: [facility] Address: [address] [place] [address] Performed By: #### 5 5454-3 #### [facility] CLIA [id number] [address] [place] [address] [place] Monocytes/100 WBC (Bld) 8.5 % Normal [facility] Comment on above: Order Comment: Speci men Type: BLOOD SPECIMEN Ordering Facility: [facility] Address: [address] [place] [address] Performed By: #### 5 5454-3 #### [facility] CLIA [id number] [address] [place] [address] [place] Neutrophils (Bld) [#/Vol] 6.00 10*3/uL Normal 1.45-7.50 [facility] Comment on above: Order Comment: Speci men Type: BLOOD SPECIMEN Ordering Facility: [facility] Address: [address] [place] [address] Performed By: #### 5 5454-3 #### [facility] CLIA [id number] [address] [place] [address] [place] Neutrophils/100 WBC (Bld) 60.7 % Normal [facility] Comment on above: Order Comment: Speci men Type: BLOOD SPECIMEN Ordering Facility: [facility] Address: [address] [place] [address] Performed By: #### 5 5454-3 #### [facility] CLIA [id number] [address] [place] [address] [place] Nucleated RBC (Bld) [#/Vol] 10*3/uL Normal <0.01 [facility] Comment on above: Order Comment: Speci men Type: BLOOD SPECIMEN Ordering Facility: [facility] Address: [address] [place] [address] Performed By: #### 5 5454-3 #### [facility] CLIA [id number] [address] [place] [address] [place] Nucleated RBC/100 WBC (Bld) [Ratio] 0.0 /100 WBC Normal [facility] Comment on above: Order Comment: Speci men Type: BLOOD SPECIMEN Ordering Facility: [facility] Address: [address] [place] [address] Performed By: #### 5 5454-3 #### [facility] CLIA [id number] [address] [place] [address] [place] Platelet mean volume (Bld) [Entitic vol] 11.2 fL Normal 9.0-12.7 [facility] Comment on above: Order Comment: Speci men Type: BLOOD SPECIMEN Ordering Facility: [facility] Address: [address] [place] [address] Performed By: #### 5 5454-3 #### [facility] CLIA [id number] [address] [place] [address] [place] Platelets (Bld) [#/Vol] 182 10*3/uL Normal 150-400 [facility] Comment on above: Order Comment: Speci men Type: BLOOD SPECIMEN Ordering Facility: [facility] Address: [address] [place] [address] Performed By: #### 5 5454-3 #### [facility] CLIA [id number] [address] [place] [address] [place] RBC (Bld) [#/Vol] 5.53 10*6/uL Normal 4.20-6.00 [facility] Comment on above: Order Comment: Speci men Type: BLOOD SPECIMEN Ordering Facility: [facility] Address: [address] [place] [address] Performed By: #### 5 5454-3 #### [facility] CLIA [id number] [address] [place] [address] [place] WBC (Bld) [#/Vol] 9.89 10*3/uL Normal 3.70-11.00 [facility] Comment on above: Order Comment: Speci men Type: BLOOD SPECIMEN Ordering Facility: [facility] Address: [address] [place] [address] Performed By: #### 5 5454-3 #### [facility] CLIA [id number] [address] [place] [address] [facility] CNOVon 12-05-2023 CNOV Office Visit (MYRONWS ) -------- JOSHUA ESTES ([id number]) 1955 M Date Time Provider Department 12/05/23 7:40 AM AUDREY PACKER During your visit today, we recorded the following information about you: Pulse Respiration Blood pressure Weight 68/minute 18/minute 132/90 109.4 kg Audrey Packer APRN.PRESSED OR BLOWN GLASS WORKER 12/05/2023 8:31 AM Signed 12/05/2023 Patient presents with: Musculoskeletal Problem: Each [...] ulcer of toe of right foot (HCC) No date: DVT (deep venous thrombosis) ([facility]) No date: GERD (gastroesophageal reflux disease) No [...] 3, Cranial nerves II-XII grossly intact, Reflexes symmetri (more content not included)... Normal [facility] Comprehensive metabolic 2000 panelon 12-05-2023 Albumin [Mass/Vol] 4.0 g/dL Normal 3.9-4.9 [facility] Comment on above: Order Comment: Tucker varghese Type: BLOOD SPECIMEN Ordering Facility: [facility] Address: [address] [place] [address] Performed By: #### 5 5454-3 #### [facility] CLIA [id number] [address] [place] [address] [place] [address] [place] ALP [Catalytic activity/Vol] 62 U/L Normal 38-113 [facility] Comment on above: Order Comment: Tucker varghese Type: BLOOD SPECIMEN Ordering Facility: [facility] Address: [address] [id number] Performed By: #### 5 5454-3 #### [facility] CLIA [id number] [address] [place] [address] [place] ALT [Catalytic activity/Vol] 14 U/L Normal 10-54 [facility] Comment on above: Order Comment: Speci men Type: BLOOD SPECIMEN Ordering Facility: [facility] Address: [address] [place] [address] Performed By: #### 5 5454-3 #### [facility] CLIA [id number] [address] [place] [address] [place] Anion gap [Moles/Vol] 15 mmol/L Normal 8-15 [facility] Comment on above: Order Comment: Speci men Type: BLOOD SPECIMEN Ordering Facility: [facility] Address: [address] [place] [address] Performed By: #### 5 5454-3 #### [facility] CLIA [id number] [address] [place] [address] [place] AST [Catalytic activity/Vol] 18 U/L Normal 14-40 [facility] Comment on above: Order Comment: Speci men Type: BLOOD SPECIMEN Ordering Facility: [facility] Address: [address] [place] [address] Performed By: #### 5 5454-3 #### [facility] CLIA [id number] [address] [place], [place] [id number] [place] Bilirubin [Mass/Vol] 0.6 mg/dL Normal 0.2-1.3 [facility] Comment on above: Order Comment: Speci men Type: BLOOD SPECIMEN Ordering Facility: [facility] Address: [address] [place] [address] Performed By: #### 5 5454-3 #### [facility] CLIA [id number] [address] [place], [place] [address] [place] Calcium [Mass/Vol] 9.2 mg/dL Normal 8.5-10.2 [facility] Comment on above: Order Comment: Speci men Type: BLOOD SPECIMEN Ordering Facility: [facility] Address: [address] [place] [address] Performed By: #### 5 5454-3 #### [facility] CLIA [id number] [address] [place] [address] [place] Chloride [Moles/Vol] 100 mmol/L Normal 98-107 [facility] Comment on above: Order Comment: Speci men Type: BLOOD SPECIMEN Ordering Facility: [facility] Address: [address] [place] [address] Performed By: #### 5 5454-3 #### [facility] CLIA [id number] [address] [place] [address] [place] CO2 [Moles/Vol] 26 mmol/L Normal 22-30 [facility] Comment on above: Order Comment: Speci men Type: BLOOD SPECIMEN Ordering Facility: [facility] Address: [address] [place] [address] Performed By: #### 5 5454-3 #### [facility] CLIA [id number] [address] [place] [address] [place] Creatinine [Mass/Vol] 1.35 mg/dL High 0.73-1.22 [facility] Comment on above: Order Comment: Speci men Type: BLOOD SPECIMEN Ordering Facility: [facility] Address: [address] [place] [address] Performed By: #### 5 5454-3 #### [facility] CLIA [id number] [address] [place] [address] [place] Creatinine and Glomerular filtration rate.predicted panel (S/P/Bld) 57 mL/min/1.73m??? Low >=60 [facility] Comment on above: Order Comment: Speci men Type: BLOOD SPECIMEN Ordering Facility: [facility] Address: [address] [place] [address] Result Comment: Symone mated Glomerular Filtration Rate (eGFR) is calculated using the 2020 CKD-EPI creatinine equation. This equation utilizes serum creatinine, sex, and age as parameters. The creatinine assay has traceable calibration to isotope dilution-mass spectrometry. Refer to KDIGO guidelines for clinical interpretation. In patients with unstable renal function, e.g. those with acute kidney injury, the eGFR may not accurately reflect actual GFR. Performed By: #### 5 5454-3 #### [facility] CLIA [id number] [address] [place] [address] [place] Glucose [Mass/Vol] 163 mg/dL High 74-99 [facility] Comment on above: Order Comment: Tucker varghese Type: BLOOD SPECIMEN Ordering Facility: [facility] Address: [address] [place] [address] Result Comment: The [place] Diabetes Association (ADA) provides guidance for cutoff values for fasting glucose and random glucose. The ADA defines fasting as no caloric intake for at least 8 hours. Fasting plasma glucose results between 100 to 125 mg/dL indicate increased risk for diabetes (prediabetes). Fasting plasma glucose results greater than or equal to 126 mg/dL meet the criteria for diagnosis of diabetes. In the absence of unequivocal hyperglycemia, results should be confirmed by repeat testing. In a patient with classic symptoms of hyperglycemia or hyperglycemic crisis, random plasma glucose results greater than or equal to 200 mg/dL meet the criteria for diagnosis of diabetes. Reference: Standards of Medical Care in Diabetes 2016, [place] Diabetes Association. Diabetes Care. 2016.39(Suppl 1). Performed By: #### 5 5454-3 #### [facility] CLIA [id number] [address] [place] [address] [place] Potassium [Moles/Vol] 5.1 mmol/L Normal 3.7-5.1 [facility] Comment on above: Order Comment: Tucker varghese Type: BLOOD SPECIMEN Ordering Facility: [facility] Address: [address] [place] [address] Performed By: #### 5 5454-3 #### [facility] CLIA [id number] [address] [place] [address] [place] Protein [Mass/Vol] 6.8 g/dL Normal 6.3-8.0 [facility] Comment on above: Order Comment: Speci men Type: BLOOD SPECIMEN Ordering Facility: [facility] Address: [address] [place] [address] Performed By: #### 5 5454-3 #### [facility] CLIA [id number] [address] [place] [address] [place] Sodium [Moles/Vol] 141 mmol/L Normal 136-144 [facility] Comment on above: Order Comment: Speci men Type: BLOOD SPECIMEN Ordering Facility: [facility] Address: [address] [place] [address] Performed By: #### 5 5454-3 #### [facility] CLIA [id number] [address] [place] [address] [place] Urea nitrogen [Mass/Vol] 25 mg/dL High 9-24 [facility] Comment on above: Order Comment: Speci men Type: BLOOD SPECIMEN Ordering Facility: [facility] Address: [address] [place] [address] Performed By: #### 5 5454-3 #### [facility] CLIA [id number] [address] [place] [address] [place] HbA1c (Bld)on 12-05-2023 Average glucose Estimated from glycated hemoglobin (Bld) [Mass/Vol] 166 mg/dL Normal [facility] Comment on above: Order Comment: Speci men Type: BLOOD SPECIMEN Ordering Facility: [facility] Address: [address] [place] [address] Result Comment: eAG: (Estimated average glucose) is a calculated value from HgbA1c and is commercial representative of the average blood glucose level in the last 2-3 month period. Performed By: #### 5 5454-3 #### [facility] CLIA [id number] [address] [place] [address] [place] HbA1c (Bld) [Mass fraction] 7.4 % High 4.3-5.6 [facility] Comment on above: Order Comment: Tucker varghese Type: BLOOD SPECIMEN Ordering Facility: [facility] Address: [address] [place] [address] Result Comment: [place] Diabetes Association guidelines indicate that patients with HgbA1c in the range 5.7-6.4% are at increased risk for development of diabetes, and intervention by lifestyle modification may be beneficial. HgbA1c greater or equal to 6.5% is considered diagnostic of diabetes. Performed By: #### 5 5454-3 #### [facility] CLIA [id number] [address] [place] [address] [place] Vit B12 SerPl-mCncon 024 Cobalamin (Vitamin B12) [Mass/Vol] 263 pg/mL Normal 232-1245 [facility] Comment on above: Order Comment: Tucker varghese Type: BLOOD SPECIMEN Ordering Facility: [facility] Address: [address] [place] [address] Performed By: #### 5 5454-3 #### [facility] CLIA [id number] [address] [place] [address] [place] Zinc SerPl-mCncon 12-05-2023 Zinc [Mass/Vol] 68 ug/dL Normal 60-120 [facility] Comment on above: Order Comment: Tucker varghese Type: BLOOD SPECIMEN Ordering Facility: [facility] Address: [address] [place] [address] Result Comment: This test was developed and its performance characteristics determined by [facility]'s Curtis JDong [facility] [place] ([facility]). It has not been cleared or approved by the FDA. [facility] is regulated under CLIA as qualified to perform high-complexity testing. This test is used for clinical purposes. It should not be regarded as investigational or for research. Performed By: #### 5 763-8 #### [facility] CLIA [id number] [address] [id number] [facility] CNOVon 12-04-2023 CNOV Office Visit (PODIWS ) -------- FRANKLYNJOSHUA Sharp ([id number]) 1955 M Date Time Provider Department 12/04/23 9:30 AM RAO HILLMAN PODIWS During your visit today, we recorded the following information about you: Bekah Flynn LPN 12/04/2023 11:04 AM Signed AMB ROOMING INTAKE FLOWSHEET DATA Patient presents with: Left Foot - Established Patient, Follow Up, Callous, Hammer Toe, Pain Right Foot - Established Patient, Follow Up, Callous NOEMY Berry Matthew 12/04/2023 11:04 AM Signed Last saw pcp: 08/10/23 Subjective: Patient presents [...] with diabetes mellitus due to underlying condition ([facility]) (primary encounter diagnosis) (B35.1) Onychomycosis (M79.675) Pain [...] Had vascular testing done in May . DAVID Florez Matthew 12/04/2023 10:06 AM Signed Diabetes Foot Care Instructions When you have [...] (or decreased sensation in your feet) a psychology technician should always cut your toenails. Be Careful [...] not wear new shoes for more than (more content not included)... Normal [facility] [employer]GN [employer]IM[employer]on 024 Chicken feather IgE Qn (S) <0.35 Normal <0.35 [facility] Comment on above: Order Comment: Tucker varghese Type: BLOOD SPECIMEN Ordering Facility: [facility] Address: [address] [place] [address] Performed By: #### A NIMLS #### [facility] CLIA [id number] [address] [place] [address] [place] Chicken feather IgE RAST class (S) Class 0 Normal Class 0 [facility] Comment on above: Order Comment: Tucker varghese Type: BLOOD SPECIMEN Ordering Facility: [facility] Address: [address] [place] [address] Performed By: #### A NIMLS #### [facility] CLIA [id number] [address] [place] [address] [place] Cow epithelium IgE Qn (S) <0.35 Normal <0.35 [facility] Comment on above: Order Comment: Speci men Type: BLOOD SPECIMEN Ordering Facility: [facility] Address: [address] [place] [address] Performed By: #### A NIMLS #### [facility] CLIA [id number] [address] [place] [address] [place] Cow epithelium IgE RAST class (S) Class 0 Normal Class 0 [facility] Comment on above: Order Comment: Speci men Type: BLOOD SPECIMEN Ordering Facility: [facility] Address: [address] [place] [address] Performed By: #### A NIMLS #### [facility] CLIA [id number] [address] [place] [address] [place] Goose feather IgE Qn (S) <0.35 Normal <0.35 [facility] Comment on above: Order Comment: Speci men Type: BLOOD SPECIMEN Ordering Facility: [facility] Address: [address] [place] [address] Performed By: #### A NIMLS #### [facility] CLIA [id number] [address] [place] [address] [place] Goose feather IgE RAST class (S) Class 0 Normal Class 0 [facility] Comment on above: Order Comment: Speci men Type: BLOOD SPECIMEN Ordering Facility: [facility] Address: [address] [place] [address] Performed By: #### A NIMLS #### [facility] CLIA [id number] [address] [place] [address] [place] Horse dander IgE Qn (S) <0.35 Normal <0.35 [facility] Comment on above: Order Comment: Speci men Type: BLOOD SPECIMEN Ordering Facility: [facility] Address: [address] [place] [address] Performed By: #### A NIMLS #### [facility] CLIA [id number] [address] [place] [address] [place] Horse dander IgE RAST class (S) Class 0 Normal Class 0 [facility] Comment on above: Order Comment: Speci men Type: BLOOD SPECIMEN Ordering Facility: [facility] Address: [address] [place] [address] Performed By: #### A NIMLS #### [facility] CLIA [id number] [address] [place] [address] [place] ALGN [employer]on 09-16 A. alternata IgE Qn (S) <0.35 Normal <0.35 [facility] Comment on above: Order Comment: Speci men Type: BLOOD SPECIMEN Ordering Facility: [facility] Address: [address] [place] [address] Performed By: #### I NHALE #### [facility] CLIA [id number] [address] [place] [address] [place] A. alternata IgE RAST class (S) Class 0 Normal Class 0 [facility] Comment on above: Order Comment: Speci men Type: BLOOD SPECIMEN Ordering Facility: [facility] Address: [address] [place] [address] Performed By: #### I NHALE #### [facility] CLIA [id number] [address] [place] [address] [place] A. fumigatus IgE Qn (S) <0.35 Normal <0.35 [facility] Comment on above: Order Comment: Speci men Type: BLOOD SPECIMEN Ordering Facility: [facility] Address: [address] [place] [address] Performed By: #### I NHALE #### [facility] CLIA [id number] [address] [place] [address] [place] A. fumigatus IgE RAST class (S) Class 0 Normal Class 0 [facility] Comment on above: Order Comment: Speci men Type: BLOOD SPECIMEN Ordering Facility: [facility] Address: [address] [place] [address] Performed By: #### I NHALE #### [facility] CLIA [id number] [address] [place] [address] [place] Cambodian house dust mite IgE Qn (S) <0.35 Normal <0.35 [facility] Comment on above: Order Comment: Speci men Type: BLOOD SPECIMEN Ordering Facility: [facility] Address: [address] [place] [address] Performed By: #### I NHALE #### [facility] CLIA [id number] [address] [place] [address] [place] Cambodian house dust mite IgE RAST class (S) Class 0 Normal Class 0 [facility] Comment on above: Order Comment: Speci men Type: BLOOD SPECIMEN Ordering Facility: [facility] Address: [address] [place] [address] Performed By: #### I NHALE #### [facility] CLIA [id number] [address] [place] [address] [place] Boxelder IgE Qn (S) <0.35 Normal <0.35 [facility] Comment on above: Order Comment: Speci men Type: BLOOD SPECIMEN Ordering Facility: [facility] Address: [address] [place] [address] Performed By: #### I NHALE #### [facility] CLIA [id number] [address] [place] [address] [place] Boxelder IgE RAST class (S) Class 0 Normal Class 0 [facility] Comment on above: Order Comment: Speci men Type: BLOOD SPECIMEN Ordering Facility: [facility] Address: [address] [place] [address] Performed By: #### I NHALE #### [facility] CLIA [id number] [address] [place] [address] [place] C. herbarum IgE Qn (S) <0.35 Normal <0.35 [facility] Comment on above: Order Comment: Speci men Type: BLOOD SPECIMEN Ordering Facility: [facility] Address: [address] [place] [address] Performed By: #### I NHALE #### [facility] CLIA [id number] [address] [place] [address] [place] C. herbarum IgE RAST class (S) Class 0 Normal Class 0 [facility] Comment on above: Order Comment: Speci men Type: BLOOD SPECIMEN Ordering Facility: [facility] Address: [address] [place] [address] Performed By: #### I NHALE #### [facility] CLIA [id number] [address] [place] [address] [place] Cat dander IgE Qn (S) <0.35 Normal <0.35 [facility] Comment on above: Order Comment: Speci men Type: BLOOD SPECIMEN Ordering Facility: [facility] Address: [address] [place] [address] Performed By: #### I NHALE #### [facility] CLIA [id number] [address] [place] [address] [place] Cat dander IgE RAST class (S) Class 0 Normal Class 0 [facility] Comment on above: Order Comment: Speci men Type: BLOOD SPECIMEN Ordering Facility: [facility] Address: [address] [place] [address] Performed By: #### I NHALE #### [facility] CLIA [id number] [address] [place] [address] [place] Common Ragweed IgE Qn (S) <0.35 Normal <0.35 [facility] Comment on above: Order Comment: Speci men Type: BLOOD SPECIMEN Ordering Facility: [facility] Address: [address] [place] [address] Performed By: #### I NHALE #### [facility] CLIA [id number] [address] [place] [address] [place] Common Ragweed IgE RAST class (S) Class 0 Normal Class 0 [facility] Comment on above: Order Comment: Speci men Type: BLOOD SPECIMEN Ordering Facility: [facility] Address: [address] [place] [address] Performed By: #### I NHALE #### [facility] CLIA [id number] [address] [place] Dog dander IgE Qn (S) <0.35 Normal <0.35 [facility] Comment on above: Order Comment: Speci men Type: BLOOD SPECIMEN Ordering Facility: [facility] Address: [address] [place] [address] Performed By: #### I NHALE #### [facility] CLIA [id number] [address] [place] [address] [place] Dog dander IgE RAST class (S) Class 0 Normal Class 0 [facility] Comment on above: Order Comment: Speci men Type: BLOOD SPECIMEN Ordering Facility: [facility] Address: [address] [place] [address] Performed By: #### I NHALE #### [facility] CLIA [id number] [address] [place] [address] [place] Kuwaiti plantain IgE Qn (S) <0.35 Normal <0.35 [facility] Comment on above: Order Comment: Speci men Type: BLOOD SPECIMEN Ordering Facility: [facility] Address: [address] [place] [address] Performed By: #### I NHALE #### [facility] CLIA [id number] [address] [place] [address] [place] Kuwaiti plantain IgE RAST class (S) Class 0 Normal Class 0 [facility] Comment on above: Order Comment: Speci men Type: BLOOD SPECIMEN Ordering Facility: [facility] Address: [address] [place] [address] Performed By: #### I NHALE #### [facility] CLIA [id number] [address] [place] [address] [place] Goosefoot IgE Qn (S) <0.35 Normal <0.35 [facility] Comment on above: Order Comment: Speci men Type: BLOOD SPECIMEN Ordering Facility: [facility] Address: [address] [place] [address] Performed By: #### I NHALE #### [facility] CLIA [id number] [address] [place] [address] [place] Goosefoot IgE RAST class (S) Class 0 Normal Class 0 [facility] Comment on above: Order Comment: Speci men Type: BLOOD SPECIMEN Ordering Facility: [facility] Address: [address] [place] [address] Performed By: #### I NHALE #### [facility] CLIA [id number] [address] [place] [address] [place] House dust [place] Elisha IgE Qn (S) <0.35 Normal <0.35 [facility] Comment on above: Order Comment: Speci men Type: BLOOD SPECIMEN Ordering Facility: [facility] Address: [address] [place] [address] Performed By: #### I NHALE #### [facility] CLIA [id number] [address] [place] [address] [place] House dust IgE RAST class (S) Class 0 Normal Class 0 [facility] Comment on above: Order Comment: Speci men Type: BLOOD SPECIMEN Ordering Facility: [facility] Address: [address] [place] [address] Performed By: #### I NHALE #### [facility] CLIA [id number] [address] [place] [id number] [place] IgE Qn (S) <0.35 Normal <0.35 [facility] Comment on above: Order Comment: Speci men Type: BLOOD SPECIMEN Ordering Facility: [facility] Address: [address] [place] [address] Performed By: #### I NHALE #### [facility] CLIA [id number] [address] [place] [address] [place] IgE RAST class (S) Class 0 Normal Class 0 [facility] Comment on above: Order Comment: Speci men Type: BLOOD SPECIMEN Ordering Facility: [facility] Address: [address] [place] [address] Performed By: #### I NHALE #### [facility] CLIA [id number] [address] [place] [address] [place] P. [place] IgE Qn (S) <0.35 Normal <0.35 [facility] Comment on above: Order Comment: Speci men Type: BLOOD SPECIMEN Ordering Facility: [facility] Address: [address] [place] [address] Performed By: #### I NHALE #### [facility] CLIA [id number] [address] [place] [address] [place] P. notatum IgE RAST class (S) Class 0 Normal Class 0 [facility] Comment on above: Order Comment: Speci men Type: BLOOD SPECIMEN Ordering Facility: [facility] Address: [address] [place] [address] Performed By: #### I NHALE #### [facility] CLIA [id number] [address] [place] [address] [place] IgE Qn (S) <0.35 Normal <0.35 [facility] Comment on above: Order Comment: Speci men Type: BLOOD SPECIMEN Ordering Facility: [facility] Address: [address] [place] [address] Performed By: #### I NHALE #### [facility] CLIA [id number] [address] [place] [address] [place] IgE RAST class (S) Class 0 Normal Class 0 [facility] Comment on above: Order Comment: Speci men Type: BLOOD SPECIMEN Ordering Facility: [facility] Address: [address] [place] [address] Performed By: #### I NHALE #### [facility] CLIA [id number] [address] [place] [address] [place] IgE Qn (S) <0.35 Normal <0.35 [facility] Comment on above: Order Comment: Speci men Type: BLOOD SPECIMEN Ordering Facility: [facility] Address: [address] [place] [address] Performed By: #### I NHALE #### [facility] CLIA [id number] [address] [place] [address] [place] IgE RAST class (S) Class 0 Normal Class 0 [facility] Comment on above: Order Comment: Speci men Type: BLOOD SPECIMEN Ordering Facility: [facility] Address: [address] [place] [address] Performed By: #### I NHALE #### [facility] CLIA [id number] [address] [place] [address] [place] IgE SerPl-aCncon 09-17-2023 IgE Qn 29.1 kU/l Normal <114.0 [facility] Comment on above: Order Comment: Speci men Type: BLOOD SPECIMEN Ordering Facility: [facility] Address: [address] [place] [address] Performed By: #### 1 [id number] #### [facility] CLIA [id number] [address] [place] [address] [place] No Panel Informationon 09-02 Dee Sparks RPF T 09/03/2023 10:05 AM RESPIRATORY THERAPY ORAL EXHALED NITRIC OXIDE SERVICE [...] DATE: September 03, 2023 TIME: 10:04 AM [facility] SPIROMETRY - BASELINE AND PO ST DILATORon 08-22-2023 IZC28-78% POST (L/S) 1.16 L/S [facility] SYO21-66% PRE (L/S) 0.89 L/S [facility] FEV1 PRE (L) 1.75 L [facility] FEV1/FVC POST (%) 72 % [facility] FEV1/FVC PRE (%) 68 % [facility] FEV1_POST (L) 1.83 L [facility] FVC POST (L) 2.53 L [facility] FVC PRE (L) 2.56 L [facility] PEF POST (L/S) 5.47 L/S [facility] PEF PRE (L/S) 4.77 L/S [facility] [address] [place] [id number] Test Date: 2023-08-22 Pat Name: OJSHUA ESTES Department: Room: Gender: Male [employer]er Magazine [employer]inder: : 1955 Requested By: Order Number: [id number] Reading MD: Alondra Swartz MD Interpretive Statements Medications and Allergies were reviewed for possible drug interactions per policy. No contraindications or sensitivities were noted. Meds taken: None before testing. 2 puffs Albuterol (180 mcg) delivered by MDI via holding chamber. HR pre = 73/min, HR post = 73/min. Current ATS/ERS acceptability and repeatability standards for spirometry met. Start of test and EOFE criteria met. IMPRESSION: Spirometry shows no obstruction.The reduced FVC suggests restriction. Recommend lung volumes if clinically indicated. The increase in FEF 25-75 post-bronchodilator reflects an improvement in the small airway obstruction. Electronically Signed On 08-22-2023 14:28:03 EDT by Alondra Swartz MD ID: [id number] Name: JOSHUA ESTES Race: White Ht: 72.50 in Wt: 247.00 lbs Age: 68 Gender: Male : 1955 Dx: Chronic cough_ Smoking Hx: Non-smoker Doctor: TOBI SORTO Test Date: 08/22/2023 Site: Tech: Dee Sparks PRE-BRONCH POST-BRONCH Pre LLN Pred ULN %Pred Post %Pred %Chg SPIROMETRY FVC (L) 2.56 3.35 4.49 5.66 57 2.53 56 0 FEV1 (L) 1.75 2.47 3.37 4.22 51 1.83 54 2 FEV1/FVC 0.68 0.63 0.76 0.87 89 0.72 95 5 PEF L/s (L/sec) 4.77 6.53 9.02 11.50 52 5.47 60 14 FEF50 (L/sec) 1.51 2.40 4.53 6.65 33 1.70 37 13 FIF50 (L/sec) 3.94 4.21 6 FEF50/FIF50 0.38 90-100 0.40 5 FIVC (L) 2.19 2.15 -1 QEU24-16 (L/sec) 0.89 1.16 2.64 4.72 33 1.16 43 29 Time (sec) 11.14 8.33 -25 FET PEF (sec) 0.09 0.08 -1 TONJA (L) 0.07 0.07 2 Vol Extrap % (%) 3 3 4 Comments: Medications and Allergies were reviewed for possible drug interactions per policy. No contraindications or sensitivities were noted. Meds taken: None before testing. 2 puffs Albuterol (180 mcg) delivered by MDI via holding chamber. HR pre = 73/min, HR post = 73/min. Current ATS/ERS acceptability and repeatability standards for spirometry met. Start of test and EOFE criteria met. PULMONARY FUNCTION LAB [facility] XR Chest PA and Lateralon IMPRESSION: Stable exam with no acute radiographic abnormality. 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 Transcribe Date/Time: Aug 11 2023 5:13P Dictated by : SANTOSH BEACH MD This examination was interpreted and the report reviewed and electronically signed by: SANTOSH BEACH MD on Aug 11 2023 5:16PM [facility] DIVISION OF RADIOLOGY * * *Final Report* * * DATE OF EXAM: Aug 10 2023 11:08AM WOX 5291 - XR CHEST 2V FRONTAL/LAT / PROCEDURE REASON: Persistent cough for 3 weeks or longer * * * * Physician Interpretation * * * * EXAMINATION: CHEST RADIOGRAPH (2 VIEW FRONTAL & LATERAL) CLINICAL HISTORY: Persistent cough for 3 weeks or longer MQ: XC2_6 EXAM DATE/TIME: 08/10/2023 11:08 AM COMPARISON: 11/20/2022. RESULT: Lines, tubes, and devices: None. There is a small electronic device projecting over the left upper anterior chest wall. Lungs and pleura: There are small granulomata in the right lower lung. No consolidation. No lung mass. No pleural effusion. No pneumothorax. Cardiomediastinal silhouette: Stable cardiomediastinal silhouette with calcified lymph nodes in the right lower paratracheal region. Bones and soft tissues: Unremarkable with sclerosis of the left first costochondral junction. DIVISION OF RADIOLOGY Provider, [facility] - 08/11/2023 * * *Final Report* * * DATE OF EXAM: Aug 10 2023 11:08AM WOX 5291 - XR CHEST 2V FRONTAL/LAT / PROCEDURE REASON: Persistent cough for 3 weeks or longer * * * * Physician Interpretation * * * * EXAMINATION: CHEST RADIOGRAPH (2 VIEW FRONTAL & LATERAL) CLINICAL HISTORY: Persistent cough for 3 weeks or longer MQ: XC2_6 EXAM DATE/TIME: 08/10/2023 11:08 AM COMPARISON: 11/20/2022. RESULT: Lines, tubes, and devices: None. There is a small electronic device projecting over the left upper anterior chest wall. Lungs and pleura: There are small granulomata in the right lower lung. No consolidation. No lung mass. No pleural effusion. No pneumothorax. Cardiomediastinal silhouette: Stable cardiomediastinal silhouette with calcified lymph nodes in the right lower paratracheal region. Bones and soft tissues: Unremarkable with sclerosis of the left first costochondral junction. IMPRESSION IMPRESSION: Stable exam with no acute radiographic abnormality. 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[employer] Transcribe Date/Time: Aug 11 2023 5:13P Dictated by : SANTOSH BEACH MD This examination was interpreted and the report reviewed and electronically signed by: SANTOSH BEACH MD on Aug 11 2023 5:16PM EST [facility] XR Chest PA and LateralOrder ed By: Ccf Provider on 08-11-2023 [facility] CBC W Auto Differential pane l (Bld)on 08-10-2023 Basophils (Bld) [#/Vol] 0.08 10*3/uL [facility] Basophils/100 WBC (Bld) 0.7 % [facility] Differential cell count method Nom (Bld) Auto [facility] Eosinophils (Bld) [#/Vol] 0.46 10*3/uL High [facility] Eosinophils/100 WBC (Bld) 4.3 % [facility] Erythrocyte distribution width (RBC) [Ratio] 15.0 % 11.5 - 15.0 % [facility] Hematocrit (Bld) [Volume fraction] 55.1 % High 39.0 - 51.0 % [facility] Hemoglobin (Bld) [Mass/Vol] 17.7 g/dL High 13.0 - 17.0 g/dL [facility] Immature granulocytes (Bld) [#/Vol] 0.08 10*3/uL [facility] Immature granulocytes/100 WBC (Bld) 0.7 % [facility] Interpretation and review of laboratory results Abnormal [facility] Lymphocytes (Bld) [#/Vol] 3.11 10*3/uL [facility] Lymphocytes/100 WBC (Bld) 29.0 % [facility] MCH (RBC) [Entitic mass] 32.2 pg 26.0 - 34.0 pg [facility] MCHC (RBC) [Mass/Vol] 32.1 g/dL 30.5 - 36.0 g/dL [facility] MCV (RBC) [Entitic vol] 100.4 fL High 80.0 - 100.0 fL [facility] Monocytes (Bld) [#/Vol] 0.81 10*3/uL NINF [facility] Monocytes/100 WBC (Bld) 7.5 % [facility] Neutrophils (Bld) [#/Vol] 6.19 10*3/uL [facility] Neutrophils/100 WBC (Bld) 57.8 % [facility] Nucleated RBC (Bld) [#/Vol] NINF [facility] Nucleated RBC/100 WBC (Bld) [Ratio] 0.0 % /100 WBC [facility] Platelet mean volume (Bld) [Entitic vol] 11.8 fL 9.0 - 12.7 fL [facility] Platelets (Bld) [#/Vol] 206 10*3/uL [facility] RBC (Bld) [#/Vol] 5.49 10*6/uL 4.20 - 6.0 0 m/uL [facility] WBC (Bld) [#/Vol] 10.73 10*3/uL [facility] Comprehensive metabolic 2000 panelon 08-10-2023 Albumin [Mass/Vol] 4.1 g/dL 3.9 - 4.9 g/dL [facility] ALP [Catalytic activity/Vol] 70 U/L 38 - 113 U/L [facility] ALT [Catalytic activity/Vol] 27 U/L 10 - 54 U/L [facility] Anion gap [Moles/Vol] 14 mmol/L 9 - 18 mmol/L [facility] AST [Catalytic activity/Vol] 36 U/L 14 - 40 U/L [facility] Bilirubin [Mass/Vol] 0.6 mg/dL 0.2 - 1.3 mg/dL [facility] Calcium [Mass/Vol] 9.8 mg/dL 8.5 - 10. 2 mg/dL [facility] Chloride [Moles/Vol] 98 mmol/L 97 - 105 mmol/L [facility] CO2 [Moles/Vol] 26 mmol/L 22 - 30 mmol/L [facility] Creatinine [Mass/Vol] 1.22 mg/dL 0.73 - 1.22 mg/dL [facility] GFR/1.73 sq M.predicted among non-blacks MDRD (S/P/Bld) [Vol rate/Area] 64 mL/min/{1.73_m2} - PINF [facility] Comment on above: Estimated Glomerular Filtration Rate (eGFR) is calculated using the 2020 CKD-EPI creatinine equation. This equation utilizes serum creatinine, sex, and age as parameters. The creatinine assay has traceable calibration to isotope dilution-mass spectrometry. Refer to KDIGO guidelines for clinical interpretation. In patients with unstable renal function, e.g. those with acute kidney injury, the eGFR may not accurately reflect actual GFR. Glucose [Mass/Vol] 155 mg/dL High 74 - 99 mg/dL [facility] Comment on above: The [place] Diabete s Association (ADA) provides guidance for cutoff values for fasting glucose and random glucose. The ADA defines fasting as no caloric intake for at least 8 hours. Fasting plasma glucose results between 100 to 125 mg/dL indicate increased risk for diabetes (prediabetes). Fasting plasma glucose results greater than or equal to 126 mg/dL meet the criteria for diagnosis of diabetes. In the absence of unequivocal hyperglycemia, results should be confirmed by repeat testing. In a patient with classic symptoms of hyperglycemia or hyperglycemic crisis, random plasma glucose results greater than or equal to 200 mg/dL meet the criteria for diagnosis of diabetes. Reference: Standards of Medical Care in Diabetes 2016, [place] Diabetes Association. Diabetes Care. 2016.39(Suppl 1). Interpretation and review of laboratory results Abnormal [facility] Potassium [Moles/Vol] 4.7 mmol/L 3.7 - 5.1 mmol/L [facility] Protein [Mass/Vol] 7.6 g/dL 6.3 - 8.0 g/dL [facility] Sodium [Moles/Vol] 138 mmol/L 136 - 144 mmol/L [facility] Urea nitrogen [Mass/Vol] 23 mg/dL 9 - 24 mg/dL [facility] MAGNESIUMon 08-10-2023 Magnesium [Mass/Vol] 2.1 mg/dL 1.7 - 2.3 mg/dL [facility] Magnesium [Mass/Vol]on 08-09 Interpretation and review of laboratory results Normal [facility] No Panel Informationon 08-09 [facility] THYROID STIMULATING HORMONEo n 08-10-2023 TSH Qn 2.540 m[IU]/L [facility] TSH Qnon 08-10-2023 Interpretation and review of laboratory results Normal [facility] XR Chest PA and Lateralon Radiology Study observation (narrative) [facility] Comprehensive metabolic 2000 panelon 01-05-2023 Albumin [Mass/Vol] 4.1 g/dL 3.9 - 4.9 g/dL [facility] ALP [Catalytic activity/Vol] 60 U/L 38 - 113 U/L [facility] ALT [Catalytic activity/Vol] 32 U/L 10 - 54 U/L [facility] Anion gap [Moles/Vol] 13 mmol/L 9 - 18 mmol/L [facility] AST [Catalytic activity/Vol] 33 U/L 14 - 40 U/L [facility] Bilirubin [Mass/Vol] 0.9 mg/dL 0.2 - 1.3 mg/dL [facility] Calcium [Mass/Vol] 9.5 mg/dL 8.5 - 10. 2 mg/dL [facility] Chloride [Moles/Vol] 100 mmol/L 97 - 105 mmol/L [facility] CO2 [Moles/Vol] 27 mmol/L 22 - 30 mmol/L [facility] Creatinine [Mass/Vol] 1.21 mg/dL 0.73 - 1.22 mg/dL [facility] Estimated Glomerular Filtration Rate 65 mL/min/1.73m >=60 mL/min/1.73m [facility] Glucose [Mass/Vol] 152 mg/dL High 74 - 99 mg/dL [facility] Potassium [Moles/Vol] 4.4 mmol/L 3.7 - 5.1 mmol/L [facility] Protein [Mass/Vol] 7.1 g/dL 6.3 - 8.0 g/dL [facility] Sodium [Moles/Vol] 140 mmol/L 136 - 144 mmol/L [facility] Urea nitrogen [Mass/Vol] 20 mg/dL 9 - 24 mg/dL [facility] HbA1c (Bld)on 01-05-2023 Average glucose Estimated from glycated hemoglobin (Bld) [Mass/Vol] 160 mg/dL [facility] HbA1c (Bld) [Mass fraction] 7.2 % High 4.3 - 5.6 % [facility] XR CHEST 2V FRONTAL/LATon [facility] XR Chest PA and Lateralon IMPRESSION: No acute radiographic abnormality. 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 Transcribe Date/Time: Nov 20 2022 1:03P Dictated by : SHERRON PRAJAPATI MD This examination was interpreted and the report reviewed and electronically signed by: SHERRON PRAJAPATI MD on Nov 20 2022 1:08PM [facility] DIVISION OF RADIOLOGY * * *Final Report* * * DATE OF EXAM: Nov 20 2022 12:29PM WOX 5291 - XR CHEST 2V FRONTAL/LAT / PROCEDURE REASON: multiple diagnoses * * * * Physician Interpretation * * * * EXAMINATION: CHEST RADIOGRAPH (2 VIEW FRONTAL & LATERAL) CLINICAL HISTORY: Chronic cough Decreased breath sounds at left lung base MQ: XC2_6 EXAM DATE/TIME: 11/20/2022 12:29 PM COMPARISON: 04/10/2022, RESULT: Lines, tubes, and devices: None. Lungs and pleura: No consolidation. There are a few calcified nodules in the right mid to lower lung, similar to prior. No pleural effusion. No pneumothorax. Cardiomediastinal silhouette: Normal cardiomediastinal silhouette. Bones and soft tissues: Degenerative changes are present within the thoracic spine. DIVISION OF RADIOLOGY Provider, [facility] - 11/20/2022 * * *Final Report* * * DATE OF EXAM: Nov 20 2022 12:29PM WOX 5291 - XR CHEST 2V FRONTAL/LAT / PROCEDURE REASON: multiple diagnoses * * * * Physician Interpretation * * * * EXAMINATION: CHEST RADIOGRAPH (2 VIEW FRONTAL & LATERAL) CLINICAL HISTORY: Chronic cough Decreased breath sounds at left lung base MQ: XC2_6 EXAM DATE/TIME: 11/20/2022 12:29 PM COMPARISON: 04/10/2022, RESULT: Lines, tubes, and devices: None. Lungs and pleura: No consolidation. There are a few calcified nodules in the right mid to lower lung, similar to prior. No pleural effusion. No pneumothorax. Cardiomediastinal silhouette: Normal cardiomediastinal silhouette. Bones and soft tissues: Degenerative changes are present within the thoracic spine. IMPRESSION IMPRESSION: No acute radiographic abnormality. 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 Transcribe Date/Time: Nov 20 2022 1:03P Dictated by : SHERRON PRAJAPATI MD This examination was interpreted and the report reviewed and electronically signed by: SHERRON PRAJAPATI MD on Nov 20 2022 1:08PM EST [facility] Radiology Study observation (narrative) [facility] XR Chest PA and LateralOrder ed By: Ccf Provider on 11-20-2022 [facility] XR FOOT GENERAL 3V AP/LAT/OB L BILATERALon 11-07-2022 [facility] No Panel Informationon 10-18 [facility] LUNG VOLUMESon 05-11-2022 ERV BOX (L) 0.23 L [facility] FRC Box (L) 3.95 L [facility] IC BOX (L) 2.64 L [facility] RV Box (L) 3.74 L [facility] RV/TLC Box (%) 59 % [facility] TLC Box (L) 6.36 L [facility] VC (L) BOX 2.86 L [facility] CTA HEAD WO/W IVCONon 2022 [facility] XR CHEST 2V FRONTAL/LATon [facility] XR Chest PA and Lateralon IMPRESSION: No acute radiographic abnormality. 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[facility] Transcribe Date/Time: Apr 10 2022 4:11P Dictated by : LILLIAN LEE MD This examination was interpreted and the report reviewed and electronically signed by: LILLIAN LEE MD on Apr 10 2022 4:20PM [facility] DIVISION OF RADIOLOGY * * *Final Report* * * DATE OF EXAM: Apr 10 2022 11:58AM WOX 5291 - XR CHEST 2V FRONTAL/LAT / PROCEDURE REASON: Chronic sinusitis, unspecified location * * * * Physician Interpretation * * * * EXAMINATION: CHEST RADIOGRAPH (2 VIEW FRONTAL & LATERAL) CLINICAL HISTORY: Chronic sinusitis, unspecified location MQ: XC2_6 EXAM DATE/TIME: 04/10/2022 11:58 AM COMPARISON: 12/22/2015 RESULT: Lines, tubes, and devices: None. Lungs and pleura: No consolidation. No lung mass. No pleural effusion. No pneumothorax. Cardiomediastinal silhouette: Normal cardiomediastinal silhouette. Bones and soft tissues: Multilevel degenerative change and osteophytosis DIVISION OF RADIOLOGY Provider, [facility] [place] - 04/10/2022 * * *Final Report* * * DATE OF EXAM: Apr 10 2022 11:58AM WOX 5291 - XR CHEST 2V FRONTAL/LAT / PROCEDURE REASON: Chronic sinusitis, unspecified location * * * * Physician Interpretation * * * * EXAMINATION: CHEST RADIOGRAPH (2 VIEW FRONTAL & LATERAL) CLINICAL HISTORY: Chronic sinusitis, unspecified location MQ: XC2_6 EXAM DATE/TIME: 04/10/2022 11:58 AM COMPARISON: 12/22/2015 RESULT: Lines, tubes, and devices: None. Lungs and pleura: No consolidation. No lung mass. No pleural effusion. No pneumothorax. Cardiomediastinal silhouette: Normal cardiomediastinal silhouette. Bones and soft tissues: Multilevel degenerative change and osteophytosis IMPRESSION IMPRESSION: No acute radiographic abnormality. 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ENCIA Transcribe Date/Time: Apr 10 2022 4:11P Dictated by : LILLIAN LEE MD This examination was interpreted and the report reviewed and electronically signed by: LILLIAN LEE MD on Apr 10 2022 4:20PM EST [facility] Radiology Study observation (narrative) [facility] XR Chest PA and LateralOrder ed By: Ccf Provider on 04-10-2022 [facility] STREP A MOLECULAR (POC)on Procedural Control Valid [facility] Strep A (POCT) Negative Negative [facility] XR LUMBAR GENERAL 3V AP/LAT/ L5-S1on 08-15-2021 [facility] XR Lumbar spine 3 Viewson IMPRESSION: Degenerative changes as described. 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[facility] Transcribe Date/Time: Aug 15 2021 10:54A Dictated by : ALEXANDREA BELLE MD This examination was interpreted and the report reviewed and electronically signed by: ALEXANDREA BELLE MD on Aug 15 2021 10:56AM EST [facility]NOT_US E_DIVISION OF RADIOLOGY * * *Final Report* * * DATE OF EXAM: Aug 15 2021 8:55AM WOX 5228 - XR LUMBAR 3V AP/LAT/L5-S1 / PROCEDURE REASON: multiple diagnoses * * * * Physician Interpretation * * * * CLINICAL INDICATION: Back pain TECHNIQUE: 3 view radiographic study of the lumbar spine COMPARISON: Radiograph dated July 15, 2020 FINDINGS: There are 5 nonrib-bearing lumbar vertebral bodies. There is preservation of vertebral body height. Mild disc space narrowing at L1/L2 with anterior marginal osteophyte formation. Schmorl's nodes formation at L2/L3. Mild disc space narrowing at L4/L5. Facet joint arthrosis in the lower lumbar spine. No spondylolisthesis. Atherosclerotic calcification of the vasculature. [facility]NOT_US E_DIVISION OF RADIOLOGY Provider, [facility] [place] - 08/15/2021 * * *Final Report* * * DATE OF EXAM: Aug 15 2021 8:55AM WOX 5228 - XR LUMBAR 3V AP/LAT/L5-S1 / PROCEDURE REASON: multiple diagnoses * * * * Physician Interpretation * * * * CLINICAL INDICATION: Back pain TECHNIQUE: 3 view radiographic study of the lumbar spine COMPARISON: Radiograph dated July 15, 2020 FINDINGS: There are 5 nonrib-bearing lumbar vertebral bodies. There is preservation of vertebral body height. Mild disc space narrowing at L1/L2 with anterior marginal osteophyte formation. Schmorl's nodes formation at L2/L3. Mild disc space narrowing at L4/L5. Facet joint arthrosis in the lower lumbar spine. No spondylolisthesis. Atherosclerotic calcification of the vasculature. IMPRESSION IMPRESSION: Degenerative changes as described. 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 Transcribe Date/Time: Aug 15 2021 10:54A Dictated by : ALEXANDREA BELLE MD This examination was interpreted and the report reviewed and electronically signed by: ALEXANDREA BELLE MD on Aug 15 2021 10:56AM EST [facility] Radiology Study observation (narrative) [facility] XR Lumbar spine 3 ViewsOrder ed By: Ccf Provider on 08-15-2021 [facility] Abdomen/Pelvis without Conto n 08-09-2021 Abdomen/Pelvis without Cont [facility] [address] [place] [address] Abdomen/Pelvis without Cont MR#: [id number] Acct: [id number] Name: JOSHUA ESTES Rep #: [id number] : 1955 M 66 From: Jose Manuel childers MD PCP: Dr. Salty Sorto MD Status: REG ER Study: Abdomen/Pelvis without Cont Date of Exam: 07/31 Exam# [id number] Ordering Dr: Rad Duncan MD STUDY: CT ABDOMEN AND PELVIS WITHOUT CONTRAST REASON FOR EXAM: Male, 66 years old. Right flank pain. History of kidney stones. RADIATION DOSAGE (If Supplied By Facility): CTDIvol = ( 19.48 ) mGy, DLP = ( 953.83 ) mGycm TECHNIQUE: Transaxial images were obtained from the dome of the diaphragm to the symphysis pubis without oral contrast, and without intravenous contrast. Sagittal and coronal images were reconstructed. Individualized dose optimization techniques were used for this CT. COMPARISON: None. FINDINGS: Calcified granuloma in the anterior aspect of the right lower lobe. The visualized portions of the heart are within normal limits. Normal liver. There is a solitary gallstone. This measures 1.4 cm. There are multiple benign calcified granulomata of the spleen. Normal pancreas. There is a 3.3 cm x 2.7 cm fat-containing nodule in the left adrenal gland suggestive of a myelolipoma. There is also evidence of a 1.4 cm adenoma in the crux of the right adrenal gland. Normal right kidney. Normal left kidney. Normal visualized stomach. Normal small intestine. There are scattered colonic diverticula consistent with diverticulosis. The appendix is visualized and appears normal. There is scattered atherosclerotic calcification of the abdominal aorta, without a demonstrated aneurysm. Normal inferior vena cava. Normal retroperitoneum. Normal urinary bladder. There is enlargement of the prostate gland. It measures 5.9 cm x 4.7 cm. There is a small umbilical hernia containing fat. Normal osseous structures. CT/Abdomen/Pelvis without Cont IMPRESSION: Solitary gallstone. 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 Small adenoma in the right adrenal gland. Prostatic hypertrophy. Electronically Signed: Jose Manuel Zhu MD at 15:12 EDT , CC: Dr. Salty Sorto MD; Dr. Rad Duncan MD 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Signed Normal [facility] CBC W/Diff, Automatedon 05-1 0-2021 Absolute Lymph 2.73 X10 3/uL Normal 0.83-4.51 [facility] Comment on above: Performed By: #### L 100.0100, L500.4050 #### [facility] [address] [place], [address] Absolute Neut 6.6 X10 3/uL Normal 2.0-7.7 [facility] Comment on above: Performed By: #### L 100.0100, L500.4050 #### [facility] [address] [place], [address] Basophils/100 WBC (Bld) 0.7 % Normal 0-1 [facility] Comment on above: Performed By: #### L 100.0100, L500.4050 #### [facility] [address] [place], [address] Eosinophils/100 WBC (Bld) 4.3 % Normal 0-5 [facility] Comment on above: Performed By: #### L 100.0100, L500.4050 #### [facility] [address] [place], [address] Erythrocyte distribution width (RBC) [Ratio] 14.4 % Normal 11.6-14.6 [facility] Comment on above: Performed By: #### L 100.0100, L500.4050 #### [facility] [address] [place], [address] Hematocrit (Bld) [Volume fraction] 53.7 % Normal 40-54 [facility] Comment on above: Performed By: #### L 100.0100, L500.4050 #### [facility] [address] [place], [address] Hemoglobin (Bld) [Mass/Vol] 17.9 g/dL High 13.0-16.5 [facility] Comment on above: Performed By: #### L 100.0100, L500.4050 #### [facility] [address] [place], [address] IG% 0.600 Normal 0.0-0.9 [facility] Comment on above: Result Comment: IG% - Immature Granulocytes (promyelocytes, myelocytes and metamyelocytes) > 1% indicates that a LEFT SHIFT is Present. Performed By: #### L 100.0100, L500.4050 #### [facility] [address] [place], [address] Lymphocytes/100 WBC (Bld) 25.5 % Normal 19-41 [facility] Comment on above: Performed By: #### L 100.0100, L500.4050 #### [facility] [address] [place], [address] MCH (RBC) [Entitic mass] 32.8 pg High 27.0-32.0 [facility] Comment on above: Performed By: #### L 100.0100, L500.4050 #### [facility] [address] [place], [address] MCHC (RBC) [Mass/Vol] 33.3 g/dL Normal 32-36 [facility] Comment on above: Performed By: #### L 100.0100, L500.4050 #### [facility] [address] [place], [address] MCV (RBC) [Entitic vol] 98.4 fL High 80-94 [facility] Comment on above: Performed By: #### L 100.0100, L500.4050 #### [facility] [address] [place], [address] Monocytes/100 WBC (Bld) 7.1 % Normal 0-10 [facility] Comment on above: Performed By: #### L 100.0100, L500.4050 #### [facility] [address] [place], [address] Neutrophils/100 WBC (Bld) 61.8 % Normal 47-70 [facility] Comment on above: Performed By: #### L 100.0100, L500.4050 #### [facility] [address] [place], [address] Nucleated RBC (Bld) [#/Vol] 0 10*3/uL Normal 0-5 [facility] Comment on above: Performed By: #### L 100.0100, L500.4050 #### [facility] [address] [place], [address] Platelet mean volume (Bld) [Entitic vol] 11.0 fL Normal 6.2-12.0 [facility] Comment on above: Performed By: #### L 100.0100, L500.4050 #### [facility] [address] [place], [address] Platelets (Bld) [#/Vol] 178 10*3/uL Normal 150-450 [facility] Comment on above: Performed By: #### L 100.0100, L500.4050 #### [facility] [address] [place], [address] RBC (Bld) [#/Vol] 5.46 10*6/uL Normal 4.6-6.2 [facility] Comment on above: Performed By: #### L 100.0100, L500.4050 #### [facility] [address] [place], [address] RDW SD 52.5 fl High 35.1-43.9 [facility] Comment on above: Performed By: #### L 100.0100, L500.4050 #### [facility] [address] [place], [address] WBC (Bld) [#/Vol] 10.7 10*3/uL Normal 4.4-11.0 [facility] Comment on above: Performed By: #### L 100.0100, L500.4050 #### [facility] [address] [place], [address] Comprehensive Metabolic Prof ilon 08-09-2021 Albumin [Mass/Vol] 3.5 g/dL Normal 3.2-5.0 [facility] Comment on above: Performed By: #### L 100.0100, L500.4050 #### [facility] [address] [place], [address] Albumin/Globulin [Mass ratio] 0.9 {ratio} Normal 0.9-2.4 [facility] Comment on above: Performed By: #### L 100.0100, L500.4050 #### [facility] [address] [place], [address] ALK P 56 U/L Normal 45-117 [facility] Comment on above: Performed By: #### L 100.0100, L500.4050 #### [facility] [address] [place], [address] ALT [Catalytic activity/Vol] 39 U/L Normal 16-61 [facility] Comment on above: Performed By: #### L 100.0100, L500.4050 #### [facility] [address] [place], [address] AST [Catalytic activity/Vol] 31 U/L Normal 15-37 [facility] Comment on above: Performed By: #### L 100.0100, L500.4050 #### [facility] [address] [place], [address] Bilirubin [Mass/Vol] 0.70 mg/dL Normal 0.20-1.00 [facility] Comment on above: Result Comment: For patients on eltrombopag therapy, use of Dimension Donahue TBIL is not recommended. Performed By: #### L 100.0100, L500.4050 #### [facility] [address] [place], [address] BUN/CRE 22.9 RATIO High 10-20 [facility] Comment on above: Performed By: #### L 100.0100, L500.4050 #### [facility] [address] [place], [address] CA,Total 9.4 mg/dL Normal 8.5-10.1 [facility] Comment on above: Performed By: #### L 100.0100, L500.4050 #### [facility] [address] [place], [address] Chloride [Moles/Vol] 105 mmol/L Normal 98-107 [facility] Comment on above: Performed By: #### L 100.0100, L500.4050 #### [facility] [address] [place], [address] CO2 [Moles/Vol] 25.0 mmol/L Normal 21.0-32.0 [facility] Comment on above: Performed By: #### L 100.0100, L500.4050 #### [facility] [address] [place], [address] Creatinine [Mass/Vol] 1.53 mg/dL High 0.70-1.30 [facility] Comment on above: Result Comment: The validity of the calculated GFR GFRAA in patients over 70 years has not been determined. Clinical correlation is essential. Performed By: #### L 100.0100, L500.4050 #### [facility] [address] [place], [address] ECRCL 52.95 ml/min Normal [facility] Comment on above: Performed By: #### L 100.0100, L500.4050 #### [facility] [address] [place], [address] EST GFR - AA 59 mL/min Low >60 [facility] Comment on above: Result Comment: Afri can [place]ian GFR Calc Performed By: #### L 100.0100, L500.4050 #### [facility] [address] [place], [address] GAP 8 Normal 5-15 [facility] Comment on above: Performed By: #### L 100.0100, L500.4050 #### [facility] [address] [place], [address] GFR/1.73 sq M.predicted among non-blacks MDRD (S/P/Bld) [Vol rate/Area] 49 mL/min/{1.73_m2} Low >60 [facility] Comment on above: Result Comment: Non- GFR Calc Performed By: #### L 100.0100, L500.4050 #### [facility] [address] [place], [address] Globulin (S) [Mass/Vol] 4.1 g/dL Normal 2.2-4.2 [facility] Comment on above: Performed By: #### L 100.0100, L500.4050 #### [facility] [address] [place], [address] Glucose [Mass/Vol] 163 mg/dL High 74-106 [facility] Comment on above: Result Comment: Fast ing Glucose result greater than or equal to 126 mg/dL suggests DIABETES MELLITUS per A.D.A. criteria. Performed By: #### L 100.0100, L500.4050 #### [facility] [address] [place], [address] Potassium [Moles/Vol] 4.6 mmol/L Normal 3.5-5.1 [facility] [facility] Comment on above: Performed By: #### L 100.0100, L500.4050 #### [facility] [address] [place], [address] Sodium [Moles/Vol] 138 mmol/L Normal 136-145 [facility] Comment on above: Performed By: #### L 100.0100, L500.4050 #### [facility] [address] [place], [address] T PROT 7.6 g/dL Normal 6.4-8.2 [facility] Comment on above: Performed By: #### L 100.0100, L500.4050 #### [facility] [address] [place], [address] Urea nitrogen [Mass/Vol] 35 mg/dL High 7-18 [facility] Comment on above: Performed By: #### L 100.0100, L500.4050 #### [facility] [address] [place], [address] Emergency Department Summary on 08-09-2021 Emergency Department Summary [facility] Medical Records Department [address] [place] [address] Emergency Department Summary 08/09/21 MR#: [id number] Acct: [id number] Name: JOSHUA ESTES Rep #: [id number] : 1955 66 From: Rad Duncan MD PCP: Dr. Salty Sorto MD Status:REG ER Location: ED HPI HPI - GI History of Present Illness Chief Complaint: Flank Pain Informant: patient Abdominal Pain/Flank Pain Onset: Days Context: Sudden Onset Timing: Continuous Quality: Aching Location: Right Flank Current Severity: Moderate Maximum Severity: Moderate Worsened by: Movement Relieved by: Remaining Still Nausea/Vomiting/Emesis GI Symptom: Negative for Nausea and Vomiting Diarrhea/Melena/Hematoch ezia GI Symptom: Negative for Diarrhea, Melena and Hematochezia Associated Symptoms Associated Symptoms: Negative for Dysuria, Frequency, Hematuria and Urgency Narrative Narrative: 15-year-old male history of diabetes, prior DVT and prior kidney stone. States that he has had sudden onset right flank pain. That is increased in pain intensity since then. It has been constant. Worse with movement. Denies any falls or trauma. He had kidney stones in the past but feels this feels differently. Denies any dysuria hematuria. No fever. Prior similar symptoms: No Recent Illness/Hospitalization: No PFSH PFS Medical History (Updated 08/09/21 @ 16:[address] Rad Duncan MD) Diabetes type 2, controlled H/O blood clots High cholesterol HTN (hypertension) Home Medications atorvastatin 40 mg PO QHS 12/17/15 [History Last Taken 05/21/17] metoprolol tartrate 12.5 mg PO BID 12/17/15 [History Last Taken 05/21/17] duloxetine 20 mg PO DAILY 11/28/16 [History Last Taken 05/21/17] ropinirole 0.5 mg PO QHS 11/28/16 [History Last Taken 05/21/17] gabapentin 100 mg capsule 100 mg PO TID cap 06/19/17 [History Last Taken Unknown] meloxicam 15 mg tablet 15 mg PO DAILY 06/19/17 [History Last Taken Unknown] aspirin 81 mg PO DAILY 08/16/18 [History Last Taken Unknown] glimepiride 2 mg PO DAILY 08/16/18 [History Last Taken Unknown] hydrocodone-acetaminophe n 1 tab PO Q4H PRN 5 Days #20 tab 08/09/21 [Rx Last Taken Unknown] Allergy/AdvReac Type Severity Reaction Status Date / Time No Known Allergies Allergy Verified 08/09/21 14:09 Surgical History vein surgery r leg Social History Smoking Status: Current every day smoker tobacco type: cigarettes alcohol intake: never substance use type: does not use ROS ROS ED ROS Narrative Right flank pain. Review of Systems ROS Unobtainable: Denies due to encephalopathy Constitutional Constitutional ED: Denies chills or fever(s) ENT ENT ED: Denies ear pain Cardiovascular Cardiovascular: Denies chest pain or palpitations Respiratory/Chest Respiratory/Chest: Denies cough or dyspnea Gastrointestinal Gastrointestinal: Denies abdominal pain, constipation, diarrhea, nausea or vomiting Genitourinary Genitourinary ED: Denies dysuria or hematuria Musculoskeletal Musculoskeletal: Reports back pain; Denies arthralgias, myalgias or neck pain Integumentary Denies abscess or rash Neurologic Neurologic: Denies headache(s) Psychiatric Psychiatric: Denies depression Endocrine Endocrinology: Denies polyuria Hematologic/Lymphatic Hematologic/Lymphatic: Denies easy bruising Allergic/Immunologic Allergic/Immunologic ED: Denies urticaria EXAM Physical Exam Narrative Exam Narrative: 66-year-old male vital signs stable afebrile. Does not look septic toxic. H EENT exam unremarkable. Neck nontender. Lungs clear to auscultation bilaterally. Heart regular rhythm no murmur. Chest were nontender. Abdomen soft nontender. No pulsatile mass. No peritoneal signs. Both the right upper and lower quadrants are unremarkable. Moving all 4 extremities. Dorsi plantarflexion intact. No cauda equina. Cervical, thoracic lumbar spine nontender. Left flank nontender. History of abrasion of his right flank and right SI joint. Neurologically is awake and alert with no focal motor deficits Const Vital Signs: 08/09/21 14:08 Temperature 97.5 F L Temperature Source Temporal Pulse Rate 77 Respiratory Rate 16 Blood Pressure 158/89 H Blood Pressure Mean 112 Pulse Ox 93 Oxygen Delivery Method Room Air Positive well nourished, well developed and obese; Negative for cachectic, contractures or unkempt General Appearance ED: well developed and NAD; Negative for unkempt, cachectic, contractures or pallor Nutritional Appearance: obese; Negative for cachectic HEENT Reports moist mucous membranes normocephalic and atraumatic; Negative for trauma or tenderness Eyes PERRL and EOMs intact bilaterally Neck no lymphadenopathy, supple and no JVD (more content not included)... Normal [facility] Urinalysis, Completeon 08-09 BACTERIA 0 SEEN Normal None Seen [facility] Comment on above: Order Comment: CLEAN CATCH Performed By: #### L 400.0001 #### [facility] [address] [place], [address] EPI,SQUAMOUS 0 SEEN Normal 0-5 [facility] Comment on above: Order Comment: CLEAN CATCH Performed By: #### L 400.0001 #### [facility] [address] [place], [address] Mucus Ql (Urine sed) 0 SEEN Normal [facility] Comment on above: Order Comment: CLEAN CATCH Performed By: #### L 400.0001 #### [facility] [address] [place], [address] RBC 0 SEEN Normal 0-5 [facility] Comment on above: Order Comment: CLEAN CATCH Performed By: #### L 400.0001 #### [facility] [address] [place], [address] WBC 0 SEEN Normal 0-5 [facility] Comment on above: Order Comment: CLEAN CATCH Performed By: #### L 400.0001 #### [facility] [address] [place], [address] XR Lumbar spine 3 Viewson IMPRESSION: Lumbar s pine degenerative changes with L4-5 disc space narrowing. 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ENCIA Transcribe Date/Time: Jul 16 2020 8:12A Dictated by : KELLEY ARAUJO MD This examination was interpreted and the report reviewed and electronically signed by: KELLEY ARAUJO MD on Jul 16 2020 8:18AM [facility] DIVISION OF RADIOLOGY * * *Final Report* * * DATE OF EXAM: Jul 15 2020 5:15PM WOX [id number] - XR LUMBAR 3V AP/LAT/L5-S1 / PROCEDURE REASON: multiple diagnoses * * * * Physician Interpretation * * * * EXAM TITLE: XR LUMBAR 3V AP/LAT/L5-S1 EXAM DATE/TIME: 07/15/2020 5:15 PM COMPARISON: None. CLINICAL INDICATION/HISTORY: Pain. TECHNIQUE: AP, lateral and cone down lateral views of the lumbar spine are presented. FINDINGS: There are five slz-fpa-ecjqrjd lumbar vertebrae. No fracture or subluxations are noted. There is L4-5 disc space narrowing. Questionable L2-3 mild disc space narrowing. There is significant osteophyte formation. Ligament ossification also seen. DIVISION OF RADIOLOGY Provider, Swapna Ibarra - 07/16/2020 * * *Final Report* * * DATE OF EXAM: Jul 15 2020 5:15PM WOX [id number] - XR LUMBAR 3V AP/LAT/L5-S1 / PROCEDURE REASON: multiple diagnoses * * * * Physician Interpretation * * * * EXAM TITLE: XR LUMBAR 3V AP/LAT/L5-S1 EXAM DATE/TIME: 07/15/2020 5:15 PM COMPARISON: None. CLINICAL INDICATION/HISTORY: Pain. TECHNIQUE: AP, lateral and cone down lateral views of the lumbar spine are presented. FINDINGS: There are five cfu-qra-umbepnp lumbar vertebrae. No fracture or subluxations are noted. There is L4-5 disc space narrowing. Questionable L2-3 mild disc space narrowing. There is significant osteophyte formation. Ligament ossification also seen. IMPRESSION IMPRESSION: Lumbar spine degenerative changes with L4-5 disc space narrowing. 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ENCIA Transcribe Date/Time: Jul 16 2020 8:12A Dictated by : KELLEY ARAUJO MD This examination was interpreted and the report reviewed and electronically signed by: KELLEY ARAUJO MD on Jul 16 2020 8:18AM EST [facility] XR Lumbar spine 3 ViewsOrder ed By: [facility] Provider on 07-16-2020 [facility] XR Lumbar spine 3 Viewson Radiology Study observation (narrative) [facility] CT LUNG SCREENING WO IVCONon 12-27-2018 CT LUNG SCREENING WO IVCON * * *Final Report* * * DATE OF EXAM: Dec 27 2018 2:31PM [facility] 0562 - CT LUNG SCREENING WO IVCON / PROCEDURE REASON: Encounter for screening for malignant neoplasm of respiratory organs * * * * Physician Interpretation * * * * EXAMINATION: CHEST CT WITHOUT CONTRAST (LOW-DOSE CT LUNG CANCER SCREENING PROTOCOL) CLINICAL HISTORY: Lung cancer LDCT screening ? absence of signs or symptoms of lung cancer Technique: Spiral CT acquisition of the chest from the thoracic inlet to the upper abdomen without contrast. MQ: [id number] Patient characteristics: * Evid-fd-Nzckp: 1955; Age at exam: 63 years * Gender: Male * Lung Disease: Asymptomatic (no signs or symptoms of lung disease) * Number of Pack Years: 40 * Current smoker (=0) or Number of Years since Quit: 0 * Ordering provider and NPI: ILDA WILLOUGHBY [id number] * Interpreting radiologist and NPI: Tanika, [id number] Exam acquisition parameters: * Exam Date: 12/27/2018 2:31 PM * [facility] * CT System Field Naturalist: Siemens * CT System Model: Dual Source * Tube Current-Time (mA-sec): 324 * Peak Voltage (kV): 100 * Scan Time (sec): 6.69 * Scan Volume (z-length, cm): -29.15 * Pitch: 0.35 * Slice Thickness (mm): 1.5 * CT Dose-Length Product: 75.63 mGy*cm * CT Dose Index: 2.47mGy * CT Dose Reduction Method: Automated exposure control(AEC) and iterative recon COMPARISON: None RESULT: Are nodules present? No Other lung nodule comments: There are 2 calcified granulomata on the right within the right upper lobe and right middle lobe. Other findings: None Emphysema: Slight, centrilobular, upper lung zone Coronary Artery Calcifications: Circumflex none; Left Anterior Descending slight; Right Coronary none IMPRESSION: LungRADS category: 1 LungRADS modifier: None LungRADS 0 reason: n/a Recommendations: Continued annual low-dose chest CT of the thorax. Other actionable findings: None === Reference: [employer]. Lung CT Screening Reporting and Data System (Lung-RADS). Available at: http://www.acr.org/Quali ty-Safety/Resources/Lung RADS 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PSCWhitney Transcribe Date/Time: Dec 30 2018 7:32A Dictated by : FISH BELTRAN MD This examination was interpreted and the report reviewed and electronically signed by: FISH BELTRAN MD on Dec 30 2018 7:41AM EST Normal [facility] Vital Signs Date Time Vital Sign Value Performing Clinician [facility] 09-04-2024 07:53-0400 Body mass index (BMI) [Ratio] 32.85 kg/m2 Audrey Packer APRN.PRESSED OR BLOWN GLASS WORKER Work Phone: [facility] 09-04-2024 07:53-0400 Body weight 109.86 kg Audrey Podlogar 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 Work Phone: [facility] 09-04-2024 07:53-0400 Diastolic blood pressure 82 mm[Hg] Audrey Podlogar 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 Work Phone: [facility] 09-04-2024 07:53-0400 Heart rate 70 /min Audrey Podlogar 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 Work Phone: [facility] 09-04-2024 07:53-0400 Respiratory rate 18 /min Audrey Podlogar 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 Work Phone: [facility] 09-04-2024 07:53-0400 SaO2% (BldA) [Mass fraction] 94 % Audrey Podlogar 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 Work Phone: [facility] 09-04-2024 07:53-0400 Systolic blood pressure 136 mm[Hg] Audrey Podlogar 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 Work Phone: [facility] 09-01-2024 12:37-0400 Body mass index (BMI) [Ratio] 33.42 kg/m2 Audrey Podlogar 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 Work Phone: [facility] 09-01-2024 12:37-0400 Body temperature 98.4 [degF] Audrey Podlogar 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 Work Phone: [facility] 09-01-2024 12:37-0400 Body weight 111.77 kg Audrey Podlogar 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 Work Phone: [facility] 09-01-2024 12:37-0400 Diastolic blood pressure 78 mm[Hg] Audrey Podlogar 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 Work Phone: [facility] 09-01-2024 12:37-0400 Heart rate 94 /min Audrey Podlogar 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 Work Phone: [facility] 09-01-2024 12:37-0400 Respiratory rate 20 /min Audrey Podlogar 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 Work Phone: [facility] 09-01-2024 12:37-0400 Systolic blood pressure 144 mm[Hg] Audrey Podlogar 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 Work Phone: [facility] 07-16-2024 17:03-0400 Body mass index (BMI) [Ratio] 34.18 kg/m2 Audrey Podlogar 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 Work Phone: [facility] 07-16-2024 17:03-0400 Body weight 114.31 kg Audrey Podlogar 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 Work Phone: [facility] 07-16-2024 17:03-0400 Diastolic blood pressure 82 mm[Hg] Audrey Podlogar 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 Work Phone: [facility] 07-16-2024 17:03-0400 Heart rate 83 /min Audrey Podlogar 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 Work Phone: [facility] 07-16-2024 17:03-0400 Respiratory rate 18 /min Audery Podlogar 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 Work Phone: [facility] 07-16-2024 17:03-0400 SaO2% (BldA) [Mass fraction] 95 % Audrey Podlogar 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 Work Phone: [facility] [facility] 07-16-2024 17:03-0400 Systolic blood pressure 142 mm[Hg] Audrey Podlogar 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 Work Phone: [facility] 07-08-2024 08:03-0400 Body mass index (BMI) [Ratio] 33.53 kg/m2 Tobi Sorto MD Work Phone: [facility] 07-08-2024 08:03-0400 Body weight 112.13 kg Tobi Sorto MD Work Phone: [facility] 07-08-2024 08:03-0400 Diastolic blood pressure 84 mm[Hg] Tobi Sorto MD Work Phone: [facility] 07-08-2024 08:03-0400 Heart rate 75 /min Tobi Sorto MD Work Phone: [facility] 07-08-2024 08:03-0400 Respiratory rate 18 /min Tobi Sorto MD Work Phone: [facility] 07-08-2024 08:03-0400 SaO2% (BldA) [Mass fraction] 95 % Tobi Sorto MD Work Phone: [facility] 07-08-2024 08:03-0400 Systolic blood pressure 136 mm[Hg] Tobi Sorto MD Work Phone: [facility] 04-09-2024 10:29-0500 Body mass index (BMI) [Ratio] 33.23 kg/m2 Tobi Sorto MD Work Phone: [facility] 04-09-2024 10:29-0500 Body weight 111.13 kg Tobi Sorto MD Work Phone: [facility] 04-09-2024 10:29-0500 Diastolic blood pressure 74 mm[Hg] Tobi Sorto MD Work Phone: [facility] 04-09-2024 10:29-0500 Heart rate 72 /min Tobi Sorto MD Work Phone: [facility] 04-09-2024 10:29-0500 Respiratory rate 18 /min Tobi Sorto MD Work Phone: [facility] 04-09-2024 10:29-0500 SaO2% (BldA) [Mass fraction] 97 % Tobi Sorto MD Work Phone: [facility] 04-09-2024 10:29-0500 Systolic blood pressure 124 mm[Hg] Tobi Sorto MD Work Phone: [facility] 03-04-2024 09:23-0500 Body mass index (BMI) [Ratio] 32.92 kg/m2 Audrey Packer APRN.CNP Work Phone: [facility] 03-04-2024 09:23-0500 Body weight 110.1 kg Audrey Podlogar 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 Work Phone: [facility] 03-04-2024 09:23-0500 Diastolic blood pressure 78 mm[Hg] Audrey Podlogar 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 Work Phone: [facility] 03-04-2024 09:23-0500 Heart rate 70 /min Audrey Podlogar 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 Work Phone: [facility] 03-04-2024 09:23-0500 Respiratory rate 18 /min Audrey Podlogar 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 Work Phone: [facility] 03-04-2024 09:23-0500 SaO2% (BldA) [Mass fraction] 95 % Audrey Podlogar 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 Work Phone: [facility] 03-04-2024 09:23-0500 Systolic blood pressure 122 mm[Hg] Audrey Podlogar 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 Work Phone: [facility] 02-06-2024 13:05-0500 Body height 182.9 cm Rolando Jean MD Work Phone: [facility] 02-06-2024 13:05-0500 Body mass index (BMI) [Ratio] 32.74 kg/m2 Rolando Jean MD Work Phone: [facility] 02-06-2024 13:05-0500 Body temperature 98.1 [degF] Rolando Jean MD Work Phone: [facility] 02-06-2024 13:05-0500 Body weight 109.5 kg Rolando Jean MD Work Phone: [facility] 02-06-2024 13:05-0500 Diastolic blood pressure 77 mm[Hg] Rolando Jean MD Work Phone: [facility] 02-06-2024 13:05-0500 Heart rate 57 /min Rolando Jean MD Work Phone: [facility] 02-06-2024 13:05-0500 Respiratory rate 18 /min Rolando Jean MD Work Phone: [facility] 02-06-2024 13:05-0500 SaO2% (BldA) [Mass fraction] 94 % Rolando Jean MD Work Phone: [facility] 02-06-2024 13:05-0500 Systolic blood pressure 143 mm[Hg] Rolando Jean MD Work Phone: [facility] 01-08-2024 07:57-0400 Body mass index (BMI) [Ratio] 32.59 kg/m2 Audrey Podlogar 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 Work Phone: [facility] 01-08-2024 07:57-0400 Body weight 110.5 kg Audrey Podlogar 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 Work Phone: [facility] 01-08-2024 07:57-0400 Diastolic blood pressure 78 mm[Hg] Audrey Podlogar 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 Work Phone: [facility] 01-08-2024 07:57-0400 Heart rate 82 /min Audrey Podlogar 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 Work Phone: [facility] 01-08-2024 07:57-0400 Respiratory rate 18 /min Audrey Podlogar 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 Work Phone: [facility] 01-08-2024 07:57-0400 SaO2% (BldA) [Mass fraction] 94 % Audrey Podlogar 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 Work Phone: [facility] 01-08-2024 07:57-0400 Systolic blood pressure 132 mm[Hg] Audrey Podlogar 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 Work Phone: [facility] 12-05-2023 07:43-0400 Body mass index (BMI) [Ratio] 32.26 kg/m2 Audrey Podlogar 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 Work Phone: [facility] 12-05-2023 07:43-0400 Body weight 109.4 kg Audrey Podlogar 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 Work Phone: [facility] 12-05-2023 07:43-0400 Diastolic blood pressure 90 mm[Hg] Audrey Podlogar 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 Work Phone: [facility] 12-05-2023 07:43-0400 Heart rate 68 /min Audrey Podlogar 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 Work Phone: [facility] 12-05-2023 07:43-0400 Respiratory rate 18 /min Audrey Podlogar 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 Work Phone: [facility] 12-05-2023 07:43-0400 SaO2% (BldA) [Mass fraction] 94 % Audrey Podlogar 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 Work Phone: [facility] 12-05-2023 07:43-0400 Systolic blood pressure 132 mm[Hg] Audrey Podlogar 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 Work Phone: [facility] 09-17-2023 10:56-0400 Body mass index (BMI) [Ratio] 32.38 kg/m2 Alondra Broderick MD Work Phone: [facility] 09-17-2023 10:56-0400 Body weight 109.8 kg Alondra Broderick MD Work Phone: [facility] 09-17-2023 10:56-0400 Diastolic blood pressure 88 mm[Hg] Alondra Broderick MD Work Phone: [facility] 09-17-2023 10:56-0400 Heart rate 75 /min Alondra Broderick MD Work Phone: [facility] 09-17-2023 10:56-0400 SaO2% (BldA) [Mass fraction] 95 % Alondra Broderick MD Work Phone: [facility] 09-17-2023 10:56-0400 Systolic blood pressure 128 mm[Hg] Alondra Broderick MD Work Phone: [facility] 08-22-2023 08:57-0400 Body height 184.2 cm Pulm Wstr Work Phone: [facility] 08-22-2023 08:57-0400 Body mass index (BMI) [Ratio] 33.04 kg/m2 Pulm Wstr Work Phone: [facility] 08-22-2023 08:57-0400 Body weight 112.04 kg Pulm Wstr Work Phone: [facility] 08-22-2023 08:57-0400 Heart rate 73 /min Pulm Wstr Work Phone: [facility] 08-22-2023 08:57-0400 Respiratory rate 14 /min Pulm Wstr Work Phone: [facility] 08-22-2023 08:57-0400 SaO2% (BldA) [Mass fraction] 94 % Pulm Wstr Work Phone: [facility] 08-10-2023 08:34-0400 Body mass index (BMI) [Ratio] 32.38 kg/m2 Tobi Sorto MD Work Phone: [facility] 08-10-2023 08:34-0400 Body weight 111.31 kg Tobi Sorto MD Work Phone: [facility] 08-10-2023 08:34-0400 Diastolic blood pressure 68 mm[Hg] Tobi Sorto MD Work Phone: [facility] 08-10-2023 08:34-0400 Heart rate 45 /min Tobi Sorto MD Work Phone: [facility] 08-10-2023 08:34-0400 Respiratory rate 16 /min Tobi Sorto MD Work Phone: [facility] 08-10-2023 08:34-0400 SaO2% (BldA) [Mass fraction] 96 % Tobi Sorto MD Work Phone: [facility] 08-10-2023 08:34-0400 Systolic blood pressure 126 mm[Hg] Tobi Sorto MD Work Phone: [facility] 07-09-2023 07:58-0400 Body height 185.4 cm Audrey Podlogar 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 Work Phone: [facility] 07-09-2023 07:58-0400 Body weight 111.04 kg Audrey Podlogar 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 Work Phone: [facility] 07-09-2023 07:58-0400 Diastolic blood pressure 76 mm[Hg] Audrey Podlogar 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 Work Phone: [facility] 07-09-2023 07:58-0400 Heart rate 78 /min Audrey Podlogar 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 Work Phone: [facility] 07-09-2023 07:58-0400 Respiratory rate 16 /min Audrey Podlogar 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 Work Phone: [facility] 07-09-2023 07:58-0400 Systolic blood pressure 112 mm[Hg] Audrey Podlogar 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 Work Phone: [facility] 07-04-2023 17:27-0400 Body temperature 96.4 [degF] Audrey Podlogar 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 Work Phone: [facility] 07-04-2023 17:27-0400 Body weight 111.77 kg Audrey Podlogar 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 Work Phone: [facility] 07-04-2023 17:27-0400 Diastolic blood pressure 76 mm[Hg] Audrey Podlogar 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 Work Phone: [facility] 07-04-2023 17:27-0400 Heart rate 83 /min Audrey Podlogar 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 Work Phone: [facility] 07-04-2023 17:27-0400 Respiratory rate 18 /min Audrey Podlogar 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 Work Phone: [facility] 07-04-2023 17:27-0400 SaO2% (BldA) [Mass fraction] 92 % Audrey Podlogar 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 Work Phone: [facility] 07-04-2023 17:27-0400 Systolic blood pressure 112 mm[Hg] Audrey Podlogar 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 Work Phone: [facility] 01-05-2023 08:01-0400 Body weight 112.04 kg Audrey Podlogar 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 Work Phone: [facility] 01-05-2023 08:01-0400 Diastolic blood pressure 76 mm[Hg] Audrey Podlogar 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 Work Phone: [facility] 01-05-2023 08:01-0400 Heart rate 80 /min Audrey Podlogar 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 Work Phone: [facility] 01-05-2023 08:01-0400 Respiratory rate 18 /min Audrey Podlogar 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 Work Phone: [facility] 01-05-2023 08:01-0400 SaO2% (BldA) [Mass fraction] 95 % Audrey Podlogar 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 Work Phone: [facility] 01-05-2023 08:01-0400 Systolic blood pressure 138 mm[Hg] Audrey Podlogar 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 Work Phone: [facility] 11-20-2022 11:16-0400 Body temperature 97.7 [degF] Tobi Sorto MD Work Phone: [facility] 11-20-2022 11:16-0400 Body weight 112.13 kg Tobi Sorto MD Work Phone: [facility] 11-20-2022 11:16-0400 Diastolic blood pressure 74 mm[Hg] Tobi Sorto MD Work Phone: [facility] 11-20-2022 11:16-0400 Heart rate 69 /min Tobi Sorto MD Work Phone: [facility] 11-20-2022 11:16-0400 Respiratory rate 16 /min Tobi Sorto MD Work Phone: [facility] 11-20-2022 11:16-0400 SaO2% (BldA) [Mass fraction] 96 % Tobi Sorto MD Work Phone: [facility] 11-20-2022 11:16-0400 Systolic blood pressure 124 mm[Hg] Tobi Sorto MD Work Phone: [facility] 10-18-2022 08:09-0400 Diastolic blood pressure 82 mm[Hg] Lita Haagen 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 Work Phone: [facility] 10-18-2022 08:09-0400 Heart rate 84 /min Lita Haagen 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 Work Phone: [facility] 10-18-2022 08:09-0400 Respiratory rate 16 /min Lita Haagen 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 Work Phone: [facility] 10-18-2022 08:09-0400 Systolic blood pressure 116 mm[Hg] Lita Haagen 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 Work Phone: [facility] 05-24-2022 09:57-0500 Diastolic blood pressure 85 mm[Hg] Audrey Podlogar 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 Work Phone: [facility] 05-24-2022 09:57-0500 Heart rate 64 /min Audrey Podlogar 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 Work Phone: [facility] 05-24-2022 09:57-0500 Systolic blood pressure 142 mm[Hg] Audrey Podlogar 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 Work Phone: [facility] 05-24-2022 09:20-0500 Body weight 110.59 kg Audrey Podlogar 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 Work Phone: [facility] 05-24-2022 09:20-0500 Respiratory rate 18 /min Audrey Podlogar 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 Work Phone: [facility] 05-24-2022 09:20-0500 SaO2% (BldA) [Mass fraction] 97 % Audrey Podlogar 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 Work Phone: [facility] 05-10-2022 08:53-0500 Body height 184.2 cm Pulm Wstr Work Phone: [facility] 05-10-2022 08:53-0500 Body weight 109.77 kg Pulm Wstr Work Phone: [facility] 05-05-2022 09:47-0500 Body height 184.2 cm Pulm Wstr Work Phone: [facility] 05-05-2022 09:47-0500 Body weight 109.77 kg Pulm Wstr Work Phone: [facility] 05-05-2022 09:47-0500 Heart rate 85 /min Pulm Wstr Work Phone: [facility] 05-05-2022 09:47-0500 Respiratory rate 12 /min Pulm Wstr Work Phone: [facility] 05-05-2022 09:47-0500 SaO2% (BldA) [Mass fraction] 97 % Pulm Wstr Work Phone: [facility] 05-01-2022 10:55-0500 Body temperature 97.2 [degF] Audrey Podlogar 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 Work Phone: [facility] 05-01-2022 10:55-0500 Body weight 109.05 kg Audrey Podlogar 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 Work Phone: [facility] 05-01-2022 10:55-0500 Diastolic blood pressure 62 mm[Hg] Audrey Podlogar 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 Work Phone: [facility] 05-01-2022 10:55-0500 Heart rate 82 /min Audrey Podlogar 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 Work Phone: [facility] 05-01-2022 10:55-0500 Respiratory rate 18 /min Audrey Podlogar 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 Work Phone: [facility] 05-01-2022 10:55-0500 SaO2% (BldA) [Mass fraction] 95 % Audrey Podlogar 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 Work Phone: [facility] 05-01-2022 10:55-0500 Systolic blood pressure 104 mm[Hg] Audrey Packer 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 Work Phone: [facility] 04-09-2022 12:27-0500 Body temperature 97.11 [degF] Glendy Matos 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 Work Phone: [facility] 04-09-2022 12:27-0500 Body weight 112.95 kg Glendy Matos 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 Work Phone: [facility] 04-09-2022 12:27-0500 Diastolic blood pressure 68 mm[Hg] Glendy Matos 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 Work Phone: [facility] 04-09-2022 12:27-0500 Heart rate 85 /min Glendy Matos 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 Work Phone: [facility] 04-09-2022 12:27-0500 Respiratory rate 20 /min Glendy Matos 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 Work Phone: [facility] 04-09-2022 12:27-0500 SaO2% (BldA) [Mass fraction] 98 % Glendy Matos 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 Work Phone: [facility] 04-09-2022 12:27-0500 Systolic blood pressure 108 mm[Hg] Glendy Matos 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 Work Phone: [facility] 02-22-2022 10:28-0500 Body temperature 98.29 [degF] Tobi Sorto MD Work Phone: [facility] 02-22-2022 10:28-0500 Body weight 111.86 kg Tobi Sorto MD Work Phone: [facility] 02-22-2022 10:28-0500 Diastolic blood pressure 76 mm[Hg] Tobi Sorto MD Work Phone: [facility] 02-22-2022 10:28-0500 Heart rate 72 /min Tobi Sorto MD Work Phone: [facility] 02-22-2022 10:28-0500 Respiratory rate 16 /min Tobi Sorto MD Work Phone: [facility] 02-22-2022 10:28-0500 Systolic blood pressure 120 mm[Hg] Tobi Sorto MD Work Phone: [facility] 08-15-2021 08:06-0400 Body temperature 96.91 [degF] Audrey Podlogar 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 Work Phone: [facility] 08-15-2021 08:06-0400 Body weight 111.4 kg Audrey Podlogar 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 Work Phone: [facility] 08-15-2021 08:06-0400 Diastolic blood pressure 78 mm[Hg] Audrey Podlogar 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 Work Phone: [facility] 08-15-2021 08:06-0400 Heart rate 84 /min Audrey Podlogar 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 Work Phone: [facility] 08-15-2021 08:06-0400 Respiratory rate 20 /min Audrey Podlogar 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 Work Phone: [facility] 08-15-2021 08:06-0400 SaO2% (BldA) [Mass fraction] 96 % Audrey Podlogar 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 Work Phone: [facility] 08-15-2021 08:06-0400 Systolic blood pressure 138 mm[Hg] Audrey Podlogar 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 Work Phone: [facility] 07-04-2021 09:26-0400 Body weight 114.67 kg Audrey Podlogar 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 Work Phone: [facility] 07-04-2021 09:26-0400 Diastolic blood pressure 76 mm[Hg] Audrey Podlogar 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 Work Phone: [facility] 07-04-2021 09:26-0400 Heart rate 56 /min Audrey Podlogar 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 Work Phone: [facility] 07-04-2021 09:26-0400 Respiratory rate 18 /min Audrey Podlogar 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 Work Phone: [facility] 07-04-2021 09:26-0400 SaO2% (BldA) [Mass fraction] 97 % Audrey Podlogar 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 Work Phone: [facility] 07-04-2021 09:26-0400 Systolic blood pressure 126 mm[Hg] Audrey Podlogar 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 Work Phone: [facility] Encounters Encounter Date Encounter Type Care Provider Facility Start: 10-14-2024 ambulatory RAO Zacarias ty:[facility] Start: 10-14-2024 End: 10-14-2024 Subsequent hospital visit by physician Adebayo [facility] [place] Ros[place] Work Phone: Radiology Comment on above: 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, with fat layer exposed, unspecified laterality (HCC) [E08.621, L97.502] Start: 10-14-2024 End: 10-14-2024 Patient encounter procedure Rao Hillman Work Phone: Podiatry Comment on above: 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, with fat layer exposed, unspecified laterality (HCC) (Primary Dx); PAD (peripheral artery disease) Start: 10-14-2024 End: 10-14-2024 ambulatory TOBI SORTO Facility:[facility] Start: 10-13-2024 End: 10-13-2024 Refill Tobi Sorto MD Work Phone: [facility] [place] Comment on above: Refill Request Start: 09-22-2024 End: 09-24-2024 Refill Tobi Sorto MD Work Phone: [facility] [place] Comment on above: Refill Request Start: 09-18-2024 End: 09-18-2024 Patient encounter procedure Rao Hillman Work Phone: Podiatry Comment on above: 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, with fat layer exposed, unspecified laterality (HCC) (Primary Dx) Snoring; Daytime somnolence Start: 09-18-2024 End: 09-18-2024 ambulatory TOBI SORTO Facility:[facility] Start: 09-17-2024 End: 09-18-2024 ambulatory TOBI SORTO Facility:[facility] Start: 09-14-2024 End: 09-16-2024 Refill Tobi Sorto MD Work Phone: [facility] [place] Comment on above: Refill Request Start: 09-11-2024 End: 09-17-2024 Refill Rao Hillman Work Phone: Podiatry Comment on above: Med Change Request Start: 09-11-2024 ambulatory TOBI SORTO Facility:[facility] Start: 09-11-2024 End: 09-11-2024 Subsequent hospital visit by physician [facility] [place] Work Phone: Radiology Comment on above: 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, with fat layer exposed, unspecified laterality (HCC) [E08.621, L97.502] Start: 09-11-2024 End: 09-11-2024 Patient encounter procedure Rao Hillman Work Phone: Podiatry Comment on above: 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, with fat layer exposed, unspecified laterality (HCC) (Primary Dx); Onychomycosis; Pain in toe of left foot; Pain in toe of right foot; Callus of foot Start: 09-11-2024 End: 09-11-2024 ambulatory TOBI SORTO Facility:[facility] Start: 09-04-2024 End: 09-04-2024 Patient encounter procedure Audrey Packer APRN.CNP Work Phone: [facility] [place] Comment on above: Facial cellulitis (P rimary Dx); Chronic cough; Tobacco use Start: 09-04-2024 End: 09-04-2024 ambulatory AUDREY PODARMAAN Facility:[facility] Start: 09-01-2024 End: 09-01-2024 Patient encounter procedure Audrey Packer 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 Work Phone: [facility] [place] Comment on above: Facial cellulitis (P rimary Dx) Start: 09-01-2024 End: 09-01-2024 ambulatory TOBI SORTO Facility:[facility] Start: 08-27-2024 End: 08-27-2024 Refill Tobi Sorto MD Work Phone: [facility] [place] Comment on above: Refill Request Start: 08-26-2024 End: 09-22-2024 [facility] Work Phone: Neurology Start: 08-19-2024 End: 08-19-2024 ambulatory TOBI SORTO Facility:[facility] Start: 08-18-2024 End: 08-18-2024 Refill Tobi Sorto MD Work Phone: [facility] [place] Comment on above: Refill Request Patient Update Start: 08-14-2024 End: 08-14-2024 Refill Tobi Sorto MD Work Phone: [facility] [place] Comment on above: Refill Request Start: 08-03-2024 End: 08-04-2024 Refill Alondra Broderick MD Work Phone: Pulmonary Medicine Comment on above: Refill Request Start: 07-21-2024 End: 07-21-2024 Telephone encounter Tobi Sorto MD Work Phone: [facility] [place] Comment on above: Patient Update Start: 07-16-2024 End: 07-16-2024 Subsequent hospital visit by physician Xr [facility] [place] Work Phone: Radiology Comment on above: Abnormal lung sounds [R09.89] Start: 07-16-2024 End: 07-16-2024 Patient encounter procedure Audrey Woodsloganiya 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 Work Phone: [facility] [place] Comment on above: Leg swelling (Primar y Dx); Abnormal lung sounds Start: 07-16-2024 End: 07-16-2024 ambulatory Tobi Sorto MD Work Phone: [facility] [place] Comment on above: Foot Swelling Start: 07-16-2024 End: 09-15-2024 Follow-up encounter Tobi Sorto MD Work Phone: [facility] [place] Comment on above: Results (US of daniella ys) Start: 07-14-2024 End: 07-14-2024 Follow-up encounter Tobi Sorto MD Work Phone: [facility] [place] Start: 07-14-2024 End: 07-14-2024 ambulatory TOBI SORTO Facility:[facility] Start: 07-14-2024 End: 07-14-2024 Subsequent hospital visit by physician [facility] Work Phone: Radiology Comment on above: Stage 3a chronic kid vi disease (HCC) [N18.31] Start: 07-11-2024 End: 07-11-2024 ambulatory TOBI SORTO Facility:[facility] Start: 07-09-2024 End: 07-09-2024 Follow-up encounter Tobi Sorto MD Work Phone: [facility] [place] Comment on above: Results Start: 07-08-2024 End: 07-08-2024 Patient encounter procedure Tobi Sorto MD Work Phone: [facility] [place] Comment on above: Type 2 diabetes inga itus with peripheral neuropathy (HCC) (Primary Dx); Sleep disturbance; Essential hypertension, benign; Hypercholesteremia; Restless leg syndrome; Skin lesion; Productive cough; Tobacco use disorder; Encounter for immunization Start: 07-08-2024 End: 07-08-2024 ambulatory TOBI SORTO Facility:[facility] Start: 06-30-2024 End: 07-07-2024 Follow-up encounter Tobi Sorto MD Work Phone: [facility] [place] Comment on above: Results Start: 06-26-2024 End: 06-26-2024 ambulatory AUDREY PODLOGAR Facility:[facility] Start: 06-09-2024 End: 06-09-2024 ambulatory TBOI SORTO Facility:[facility] Start: 06-09-2024 End: 06-09-2024 Patient encounter procedure Rao Hillman Work Phone: Podiatry Comment on above: Onychomycosis (Prima ry Dx); Pain in toe of left foot; Pain in toe of right foot; Callus of foot; Type 2 diabetes mellitus with peripheral neuropathy (HCC) Start: 06-03-2024 End: 06-04-2024 Refill Tobi Sorto MD Work Phone: [place] Comment on above: Refill Request Start: 05-28-2024 End: 2024 Telephone encounter Audrey Packer APRN.[facility] Work Phone: Administration Comment on above: Medication Problem ( Med refill.) Start: 05-13-2024 End: 05-13-2024 Refill Tobi Sorto MD Work Phone: [address] [place] [address] Comment on above: Refill Request Start: 04-28-2024 End: 04-28-2024 Refill Tobi Sorto MD Work Phone: [facility] [place] Comment on above: Refill Request Start: 04-25-2024 End: 04-25-2024 Refill Tobi Sorto MD Work Phone: [facility] [place] Comment on above: Refill Request Start: 04-09-2024 End: 04-09-2024 Patient encounter procedure Tobi Sorto MD Work Phone: [facility] [place] Comment on above: Restless leg syndrom e (Primary Dx) Start: 04-09-2024 End: 04-09-2024 ambulatory TOBI SORTO Facility:[facility] Start: 04-08-2024 End: 04-08-2024 Telephone encounter Tobi Sorto MD Work Phone: [facility] [place] Comment on above: Patient Update Start: 03-25-2024 End: 03-25-2024 Refill Tobi Sorto MD Work Phone: [facility] [place] Comment on above: Refill Request Start: 03-24-2024 End: 03-24-2024 Refill Alondra Broderick MD Work Phone: Pulmonary Medicine Comment on above: Refill Request Start: 03-10-2024 End: 03-10-2024 Subsequent hospital visit by physician Adebayo [facility] [place] Work Phone: Radiology Comment on above: Chronic pain of righ t ankle [M25.571, G89.29] Start: 03-10-2024 End: 03-10-2024 ambulatory TOBI SORTO Facility:[facility] Start: 03-10-2024 End: 03-10-2024 Patient encounter procedure Rao Preciadogreg Work Phone: Podiatry Comment on above: Diabetic polyneuropa thy associated with diabetes mellitus due to underlying condition (HCC) (Primary Dx); Onychomycosis; Pain in toe of left foot; Pain in toe of right foot; Callus of foot; Chronic pain of right ankle Start: 03-07-2024 End: 03-07-2024 Telephone encounter Tobi Sorto MD Work Phone: [facility] [place] Comment on above: Results Start: 03-04-2024 End: 03-04-2024 Patient encounter procedure Audrey Packer APRN.CNP Work Phone: [facility] [place] Comment on above: Restless leg syndrom e (Primary Dx) Start: 03-04-2024 End: 03-04-2024 ambulatory AUDREY PODLOGANIYA Facility:[facility] Start: 03-03-2024 End: 03-03-2024 Refill Tobi Sorto MD Work Phone: [facility] [place] Comment on above: Refill Request Start: 02-26-2024 End: 02-29-2024 Refill Tobi Sorto MD Work Phone: [facility] [place] Comment on above: Refill Request Start: 02-21-2024 End: 02-22-2024 Chart [facility] Work Phone: Neurology Start: 02-21-2024 End: 02-21-2024 Refill Ny Mckeonabbey SIDDIQIPRESSED OR BLOWN GLASS WORKER Work Phone: [facility] [place] Comment on above: Med Change Request Start: 02-20-2024 End: 02-20-2024 Refill Tobi Sorto MD Work Phone: [facility] [place] Comment on above: Refill Request Start: 02-12-2024 End: 02-20-2024 Telephone encounter Tobi Sorto MD Work Phone: [facility] [place] Comment on above: Orders Start: 02-07-2024 End: 02-07-2024 Refill Alondra Broderick MD Work Phone: Pulmonary Medicine Comment on above: Refill Request Start: 02-06-2024 End: 02-06-2024 ambulatory ROLANDO JEAN Facility:[facility] Start: 02-06-2024 End: 02-06-2024 Patient encounter procedure Rolando Jean MD Work Phone: Vascular Surg Dept Comment on above: Peripheral arterial disease (HCC) (Primary Dx); Hypercholesteremia Start: 01-28-2024 End: 01-28-2024 Refill Tobi Sorto MD Work Phone: [facility] Comment on above: Refill Request Start: 01-21-2024 End: 01-21-2024 Refill Tobi Sorto MD Work Phone: [facility] Comment on above: Refill Request Start: 01-16-2024 End: 01-16-2024 ambulatory Mary Carmen Rinaldi Research Coordinator Endocrinology Comment on above: Research Study Oppor tunity Start: 01-16-2024 End: 01-16-2024 E-mail encounter from caregiver Mary Carmen Rinaldi Research Coordinator Endocrinology Start: 01-10-2024 End: 01-10-2024 Orders Only Rolando Jean MD Work Phone: Vascular Surg Dept Comment on above: Peripheral arterial disease (HCC) (Primary Dx) Start: 01-08-2024 End: 01-10-2024 Telephone encounter Tobi Sorto MD Work Phone: NOC Comment on above: Appointment Start: 01-08-2024 End: 01-08-2024 Patient encounter procedure Audrey Packer APRN.PRESSED OR BLOWN GLASS WORKER Work Phone: [facility] [place] Comment on above: Type 2 diabetes inga itus with peripheral neuropathy (HCC) (Primary Dx); Essential hypertension, benign; Restrictive lung disease; Restless leg syndrome; Peripheral arterial disease (HCC); Hyperlipidemia with target LDL less than 100; Claustrophobia Start: 01-08-2024 End: 01-08-2024 ambulatory AUDREY PODLOGANIYA Facility:[facility] Start: 12-19-2023 End: 12-21-2023 Telephone encounter Tobi Sorto MD Work Phone: [facility] [place] Start: 12-05-2023 End: 12-05-2023 Patient encounter procedure Audrey Packer APRN.PRESSED OR BLOWN GLASS WORKER Work Phone: [facility] [place] Comment on above: Muscle spasms of bot h lower extremities (Primary Dx); Type 2 diabetes mellitus with peripheral neuropathy (HCC); Loss of taste Start: 12-05-2023 End: 12-05-2023 ambulatory AUDREY PODLOGANIYA Facility:[facility] Start: 12-04-2023 End: 12-04-2023 ambulatory RAO HILLMAN Facility:[facility] Start: 12-04-2023 End: 12-04-2023 Patient encounter procedure Rao Hillman Work Phone: Podiatry Comment on above: Diabetic polyneuropa thy associated with diabetes mellitus due to underlying condition (HCC) (Primary Dx); Onychomycosis; Pain in toe of left foot; Pain in toe of right foot; Callus of foot Start: 11-27-2023 End: 11-27-2023 Refill Tobi Sorto MD Work Phone: [facility] [place] Comment on above: Refill Request Start: 11-05-2023 Refill Tobi Sorto MD Work Phone: [facility] Comment on above: Refill Request Start: 10-09-2023 Refill Alondra kennedy MD Work Phone: Pulmonary Medicine Comment on above: Med Change Request Start: 09-24-2023 End: 09-24-2023 Patient encounter procedure Rao Hillman Work Phone: Podiatry Comment on above: Callus of foot (Prim bonnie Dx); Diabetic polyneuropathy associated with diabetes mellitus due to underlying condition (HCC); Onychomycosis; Pain in toe of left foot; Pain in toe of right foot Start: 09-18-2023 Refill Tobi Sorto MD Work Phone: [facility] Comment on above: Refill Request Start: 09-17-2023 End: 09-17-2023 ambulatory ALONDRA BRODERICK Facility:[facility] Start: 09-17-2023 End: 09-17-2023 Patient encounter procedure Alondra Broderick MD Work Phone: Pulmonary Medicine Comment on above: History of environme ntal allergies (Primary Dx); Restrictive lung disease; Mild intermittent asthma without complication; Current smoker; Undiagnosed JOSE (obstructive sleep apnea) Start: 09-10-2023 Refill Tobi Sorto MD Work Phone: [facility] Comment on above: Refill Request Start: 09-04-2023 Refill Tobi Sorto MD Work Phone: [facility] Comment on above: Refill Request requesting medicatii on that is Results Start: 09-03-2023 Telephone encounter Salty Sorto MD Work Phone: [facility] Comment on above: Orders Start: 09-03-2023 End: 09-03-2023 ambulatory Pulm Lab [facility] Work Phone: [facility] Comment on above: Spirometry Start: 09-03-2023 End: 09-03-2023 Patient encounter procedure [facility] Work Phone: [facility] Start: 08-31-2023 Telephone encounter Salty Sorto MD Work Phone: [facility] [place] Comment on above: Results Start: 08-28-2023 Telephone encounter Audrey velez APRN.PRESSED OR BLOWN GLASS WORKER Work Phone: [facility] [place] Comment on above: Results Start: 08-22-2023 End: 08-22-2023 ambulatory Pul[facility] Work Phone: [facility] Comment on above: Spirometry Start: 08-22-2023 End: 08-22-2023 Patient encounter procedure [facility] Work Phone: [facility] Start: 08-17-2023 Telephone encounter Salty Sorto MD Work Phone: [facility] [place] Comment on above: Patient Update Start: 08-13-2023 Telephone encounter Salty Sorto MD Work Phone: [facility] [place] Comment on above: Results Refill Request Start: 08-10-2023 End: 08-10-2023 Subsequent hospital visit by physician Xr [facility] [place] Work Phone: Radiology Comment on above: Persistent cough for 3 weeks or longer [R05.3] Start: 08-10-2023 End: 08-10-2023 Patient encounter procedure Tobi Sorto MD Work Phone: [facility] Comment on above: Persistent cough for 3 weeks or longer (Primary Dx); Irregular heartbeat; Bigeminy; PAC (premature atrial contraction); Bradycardia; Abnormal EKG Start: 08-06-2023 Refill Tobi Sorto MD Work Phone: [facility] Comment on above: Refill Request Start: 07-23-2023 End: 07-23-2023 Patient encounter procedure Rao Kady Work Phone: Podiatry Comment on above: Callus of foot (Prim bonnie Dx); Hammertoe of left foot; Type 2 diabetes mellitus with peripheral neuropathy (HCC) Start: 07-09-2023 End: 07-09-2023 Patient encounter procedure Audrey Packer APRN.PRESSED OR BLOWN GLASS WORKER Work Phone: [facility] [place] Comment on above: Type 2 diabetes inga itus with peripheral neuropathy (HCC) (Primary Dx); Hyperlipidemia with target LDL less than 100; Peripheral arterial disease (HCC); Essential hypertension, benign; Restless leg syndrome Start: 07-04-2023 End: 07-04-2023 Patient encounter procedure Audrey Packer APRN.CNP Work Phone: [facility] [place] Comment on above: Upper respiratory tr act infection, unspecified type (Primary Dx); Sinus pressure Start: 05-14-2023 Refill Rao Wilian mendez Work Phone: Podiatry Comment on above: Med Change Request Start: 05-11-2023 Telephone encounter Audrey velez APRN.CNP Work Phone: [facility] [place] Comment on above: Results Start: 05-10-2023 End: 05-10-2023 Patient encounter procedure Rao Preciadogreg Work Phone: Podiatry Comment on above: Ulcer of toe of left foot, limited to breakdown of skin (HCC) (Primary Dx); Diabetic polyneuropathy associated with diabetes mellitus due to underlying condition (HCC) Refill Request Start: 04-30-2023 Refill Rao Wilian mendez Work Phone: Podiatry Comment on above: Med Change Request Start: 04-09-2023 Refill Tobi Sorto MD Work Phone: [facility] [place] Comment on above: Refill Request (see rx notes) Start: 02-26-2023 Refill Tobi Sorto MD Work Phone: [facility] [place] Comment on above: Refill Request Start: 02-05-2023 Refill Tobi Sorto MD Work Phone: [facility] [place] Comment on above: Refill Request Start: 01-08-2023 Telephone encounter Audrey velez APRN.CNP Work Phone: [facility] [place] Comment on above: Results Start: 01-05-2023 End: 01-05-2023 Patient encounter procedure Audrey Packer APRN.CNP Work Phone: [facility] Comment on above: Type 2 diabetes inga itus with peripheral neuropathy (HCC) (Primary Dx); Essential hypertension, benign; Restless leg syndrome; Hyperlipidemia with target LDL less than 100; Peripheral arterial disease (HCC) Start: 11-28-2022 End: 11-28-2022 Patient encounter procedure Rao Hillman Work Phone: Podiatry Comment on above: Right foot pain (Sandrine gi Dx); Type 2 diabetes mellitus with peripheral neuropathy (HCC); PAD (peripheral artery disease) (HCC) Start: 11-20-2022 Telephone encounter Salty Sorto MD Work Phone: [facility] Comment on above: Results Start: 11-20-2022 End: 11-20-2022 Subsequent hospital visit by physician Adebayo [facility] [place] Work Phone: Radiology Comment on above: Chronic cough [R05.3 ] Start: 11-20-2022 End: 11-20-2022 Patient encounter procedure Tobi Sorto MD Work Phone: [facility] Comment on above: Decreased breath catherine nds at left lung base (Primary Dx); Chronic cough; Essential hypertension, benign; Restless leg syndrome Start: 11-07-2022 End: 11-07-2022 Patient encounter procedure Rao Hillman Work Phone: Podiatry Comment on above: Right foot pain (Sandrine gi Dx); Charcot ankle, right; Onychomycosis; Pain in toe of right foot; Pain in toe of left foot; Hyperkeratosis; Type 2 diabetes mellitus with peripheral neuropathy (HCC); PAD (peripheral artery disease) ([facility]) Refill Request Start: 11-07-2022 Telephone encounter Rao Reese Work Phone: Podiatry Comment on above: Patient Question; Or ders Start: 11-07-2022 End: 11-07-2022 Subsequent hospital visit by physician Adebayo [facility] [place] Work Phone: Radiology Comment on above: Charcot ankle, right [M14.671] Start: 10-18-2022 End: 10-18-2022 Subsequent hospital visit by physician Adebayo [facility] [place] Work Phone: Radiology Comment on above: Foot pain, right [M7 9.671] Start: 10-18-2022 End: 10-18-2022 Office outpatient visit 25 minutes Lita Abel APRN.PRESSED OR BLOWN GLASS WORKER Work Phone: [facility] [place] Comment on above: Foot pain, right (Pr imary Dx); Cellulitis of skin; Foot swelling Start: 09-18-2022 Refill Tobi Sorto MD Work Phone: [facility] [place] Comment on above: Refill Request Start: 08-29-2022 Refill Tobi Sorto MD Work Phone: [facility] [place] Comment on above: Refill Request Start: 07-20-2022 ambulatory [facility] Comment on above: Population Health Na vigation Outreach ([employer] care gap) Start: 07-12-2022 Refill Tobi Sorto MD Work Phone: [facility] [place] Comment on above: Refill Request Start: 07-07-2022 Telephone encounter Salty Sorto MD Work Phone: [facility] [place] Comment on above: Results Start: 06-29-2022 Refill Tobi Sorto MD Work Phone: [facility] [place] Comment on above: Refill Request Start: 06-05-2022 End: 06-05-2022 Patient encounter procedure Rao Hillman Work Phone: Podiatry Comment on above: Onychomycosis (Prima ry Dx); Pain in toe of right foot; Pain in toe of left foot; Hyperkeratosis; Type 2 diabetes mellitus with peripheral neuropathy (HCC); PAD (peripheral artery disease) (HCC) Start: 06-01-2022 Refill Tobi Sorto MD Work Phone: [facility] [place] Comment on above: Refill Request Start: 05-24-2022 End: 05-24-2022 Patient encounter procedure Audrey Packer APRN.PRESSED OR BLOWN GLASS WORKER Work Phone: [facility] [place] Comment on above: Cough, unspecified t ype (Primary Dx); Essential hypertension, benign; Irregular heart beat Start: 05-10-2022 End: 05-10-2022 ambulatory Pulm [facility] Work Phone: PULM LAB [facility] Comment on above: Spirometry Start: 05-10-2022 End: 05-10-2022 Patient encounter procedure [facility] Start: 05-05-2022 Telephone encounter Audrey velez APRN.PRESSED OR BLOWN GLASS WORKER Work Phone: [facility] [place] Comment on above: Results Start: 05-05-2022 End: 05-05-2022 ambulatory Pulm [facility] Work Phone: [facility] Comment on above: Spirometry Start: 05-05-2022 End: 05-05-2022 Patient encounter procedure [facility] Work [facility] Start: 05-01-2022 End: 05-01-2022 Patient encounter procedure Audrey Packer APRN.PRESSED OR BLOWN GLASS WORKER Work Phone: [facility] [place] Comment on above: Chronic cough (Prima ry Dx); C. difficile diarrhea; Essential hypertension, benign Start: 04-28-2022 Refill Tobi Sorto MD Work Phone: [facility] [place] Comment on above: Refill Request Start: 04-20-2022 End: 04-20-2022 Subsequent hospital visit by physician [place] ([facility]) Work Phone: Cat Scan Comment on above: Thunderclap headache [G44.53] Start: 04-17-2022 Telephone encounter Salty Sorto MD Work Phone: [facility] [place] Comment on above: Patient Question Start: 04-12-2022 Telephone encounter Veronica richardson PA-C Work Phone: [place] [facility] Comment on above: Results Start: 04-11-2022 Telephone encounter Glendy Lester morales 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 Work Phone: [facility] Comment on above: Results Start: 04-10-2022 End: 04-10-2022 Subsequent hospital visit by physician Xr [facility] [place] Work Phone: Radiology Comment on above: Chronic sinusitis, u nspecified location [J32.9] Start: 04-10-2022 End: 04-10-2022 Patient encounter procedure Rao Frey MD Work Phone: Otolaryngology Comment on above: Thunderclap headache (Primary Dx); Chronic sinusitis, unspecified location; Chronic cough; Sore throat Start: 04-09-2022 End: 04-09-2022 Patient encounter procedure Glendy Matos 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 Work Phone: [place] [facility] Comment on above: Pharyngitis, unspeci fied etiology (Primary Dx); Diarrhea, unspecified type; Sinus pressure Start: 04-04-2022 ambulatory Tobi Sorto MD Work Phone: [facility] [place] Comment on above: Diarrhea Start: 03-15-2022 Telephone encounter Salty Sorto MD Work Phone: [facility] [place] Comment on above: Peer to Peer to be d one Start: 03-09-2022 Refill Tobi Sorto MD Work Phone: [facility] [place] Comment on above: Refill Request Start: 03-08-2022 Telephone encounter Salty Sorto MD Work Phone: [facility] [place] Comment on above: Patient Update Start: 03-03-2022 Refill Tobi Sorto MD Work Phone: [facility] [place] Comment on above: Refill Request Start: 03-01-2022 ambulatory Tobi Sorto MD Work Phone: [facility] [place] Comment on above: Sinusitis Start: 02-22-2022 End: 02-22-2022 Patient encounter procedure Tobi Sorto MD Work Phone: [facility] [place] Comment on above: Bacterial sinusitis (Primary Dx) Start: 02-16-2022 End: 02-16-2022 Patient encounter procedure Rao Hillman Work Phone: Podiatry Comment on above: Onychomycosis (Prima ry Dx); Pain in toe of right foot; Pain in toe of left foot; Hyperkeratosis; Type 2 diabetes mellitus with peripheral neuropathy (HCC); PAD (peripheral artery disease) (HCC) Start: 01-16-2022 Telephone encounter Beatriz Vargas Joaquín Comment on above: prescription assista nce Start: 01-13-2022 Telephone encounter Salty Sorto MD Work Phone: [facility] [place] Comment on above: Medication Problem Start: 01-04-2022 Telephone encounter Audrey velez APRN.PRESSED OR BLOWN GLASS WORKER Work Phone: [facility] [place] Comment on above: Results Start: 10-20-2021 Telephone encounter Salty Sorto MD Work Phone: [facility] [place] Comment on above: Medication Question Start: 10-14-2021 Refill Tobi Sorto MD Work Phone: [facility] [place] Comment on above: Refill Request Start: 10-13-2021 ambulatory Odalis Stokes MA [facility] [place] Comment on above: Population Health Na vigation Outreach ([employer] Care Gaps ) Start: 08-15-2021 End: 08-15-2021 Subsequent hospital visit by physician Adebayo [facility] [place] Work Phone: Radiology Comment on above: Pain in right lumbar region of back [M54.50] Start: 08-15-2021 End: 08-15-2021 Patient encounter procedure Audrey Packer APRN.PRESSED OR BLOWN GLASS WORKER Work Phone: [facility] [place] Comment on above: Pain in right lumbar region of back (Primary Dx); Right groin pain Start: 08-12-2021 ambulatory Tobi Sorto MD Work Phone: [facility] [place] Comment on above: Back Pain Start: 07-29-2021 End: 07-29-2021 Patient encounter procedure Rao Hillman Work Phone: Podiatry Comment on above: Onychomycosis (Prima ry Dx); Pain in toe of right foot; Pain in toe of left foot; Hyperkeratosis; Type 2 diabetes mellitus with peripheral neuropathy (HCC) Start: 07-08-2021 Telephone encounter Audrey velez APRN.CNP Work Phone: [facility] [place] Comment on above: Other (Worsening A1C , adding medication ) Start: 07-04-2021 End: 07-04-2021 Patient encounter procedure Audrey Packer APRN.CNP Work Phone: [facility] [place] Comment on above: Type 2 diabetes inga itus with microalbuminuria, unspecified whether [facility] insulin use (HCC) (Primary Dx); Essential hypertension, benign; Restless leg syndrome; Hyperlipidemia with target LDL less than 100 Start: 06-21-2021 End: 06-21-2021 Patient encounter procedure Mary Carmen Jara APRN.CNP Work Phone: Dermatology Comment on above: Seborrheic keratosis (Primary Dx) Start: 07-15-2020 End: 07-15-2020 Subsequent hospital visit by physician Adebayo [facility] [place] Work Phone: Radiology Comment on above: Right leg pain [M79. 604] Procedures Date Procedure Procedure Detail Performing Clinician Start: 10-14-2024 Radex toe minimum 2 views Rao Hillman Work Phone: Start: 09-18-2024 Sleep std airflow hr t rate&o2 sat effort unatt Tobi Sorto MD Work Phone: Start: 07-16-2024 Radiologic exam ches t 2 views Audrey Pacekr APRN.PRESSED OR BLOWN GLASS WORKER Work Phone: Start: 07-03-2024 Blood occult fecal h gb deter ia qual feces 1-3 Tobi Sorto MD Work Phone: Start: 09-03-2023 Nitric oxide gas determination Tobi Sorto MD Work Phone: Start: 08-22-2023 Brncdilat rspse spmt ry pre&post-brncdilat admn Tobi Sorto MD Work Phone: Start: 08-10-2023 Radiologic exam ches t 2 views Tobi Sorto MD Work Phone: Start: 11-20-2022 Radiologic exam ches t 2 views Tobi Sorto MD Work Phone: Start: 11-07-2022 Radex foot complete minimum 3 views Rao Kady Work Phone: Start: 10-18-2022 Radex foot complete minimum 3 views Lita Abel 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 Work Phone: Start: 05-10-2022 Plethysmography lung volumes w/wo airway resist Audrey Podlogar 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 Work Phone: Start: 05-05-2022 Brncdilat rspse spmt ry pre&post-brncdilat admn Audrey Podlogar 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 Work Phone: Start: 04-20-2022 Ct angiography head w/contrast/noncontrast Rao Frey MD Work Phone: Start: 04-10-2022 Radiologic exam ches t 2 views Rao Frey MD Work Phone: Start: 04-09-2022 STREP A MOLECULAR (POC) Glendy Matos 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 Work Phone: Start: 08-15-2021 Radex spine lumbosac ral 2/3 views Audrey Podlogar 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 Work Phone: Start: 07-15-2020 Radex spine lumbosac ral 2/3 views Tobi Sorto MD Work Phone: Start: 06-11-2020 Adult depression scr eening assessment Mary Carmen Jara 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 Work Phone: Start: 09-12-2018 Colonoscopy Mary Carmengeeta valerio APRN.PRESSED OR BLOWN GLASS WORKER Work Phone: Plan of Treatment Date Care Activity Detail Author Start: 11-22-2028 Urine microalbumin profile [facility] Start: 09-12-2028 Colonoscopy COLONOSCOPY [facility] Start: 09-12-2028 COLORECTAL CANCER SCREENING COLORECTAL CANCER SCREENING [facility] Start: 09-12-2028 Screening for malign ant neoplasm of colon [facility] Start: 09-04-2025 Annual PCP Team Platen Drier Operator jennifer Disease Visit Annual PCP Team Chronic Disease Visit [facility] Start: 09-01-2025 Annual PCP Team Platen Drier Operator jennifer Disease Visit Annual PCP Team Chronic Disease Visit [facility] Start: 08-19-2025 Annual PCP Team Platen Drier Operator jennifer Disease Visit Annual PCP Team Chronic Disease Visit [facility] Start: 07-26-2025 Glaucoma screening Dilated Retinal E xam [facility] Start: 07-16-2025 Annual PCP Team Platen Drier Operator jennifer Disease Visit Annual PCP Team Chronic Disease Visit [facility] Start: 07-08-2025 Annual PCP Team Platen Drier Operator jennifer Disease Visit Annual PCP Team Chronic Disease Visit [facility] Start: 07-08-2025 RSV Vaccine (1 - Ris k 60-74 years 1-dose series) RSV Vaccine (1 - Risk 60-74 years 1-dose series) [facility] Comment on above: Postponed from 07/10 (Declined at this time) Start: 07-08-2025 Shingrix Vaccine (1 of 2) Carrillo grix Vaccine (1 of 2) [facility] Comment on above: Postponed from 07/10 (Declined at this time) Start: 07-03-2025 Screening for malign ant neoplasm of colon Fecal Occult Blood [facility] Start: 04-09-2025 Annual PCP Team Platen Drier Operator jennifer Disease Visit Annual PCP Team Chronic Disease Visit [facility] Start: 04-09-2025 BP Controlled (<130/80) BP Controlle d (<130/80) [facility] Start: 03-04-2025 Annual PCP Team Platen Drier Operator jennifer Disease Visit Annual PCP Team Chronic Disease Visit [facility] Start: 03-04-2025 BP Controlled (<130/80) BP Controlle d (<130/80) [facility] Start: 01-07-2025 Annual PCP Team Platen Drier Operator jennifer Disease Visit Annual PCP Team Chronic Disease Visit [facility] Start: 01-07-2025 Covid-19 Vaccine ( season) Covid-19 Vaccine () [facility] Comment on above: Postponed from 12/01 (Declined at this time) Start: 01-07-2025 Diabetic foot examination Diabetic F oot Exam [facility] Start: 01-07-2025 Hemoglobin A1c measurement HbA1C [facility] Start: 01-07-2025 End: 01-07-2025 Patient encounter procedure 01/07/2025 10:00 AM EDT Office Visit [facility] [place] [address] [place] [address] PodlogarAudrey APRN.PRESSED OR BLOWN GLASS WORKER [address] [place] [address] 6 month follow up [facility] Comment on above: 6 month follow up Start: 12-04-2024 Annual PCP Team Platen Drier Operator jennifer Disease Visit Annual PCP Team Chronic Disease Visit [facility] Start: 12-01-2024 Influenza vaccination C [facility] Start: 10-28-2024 End: 10-28-2024 Patient encounter procedure 10/28/2024 8:30 AM EDT Office Visit Podiatry [address] [place] [address] Rao Hillman [address] [place] [address] 1 week follow up diabetic left great toe ulcer Podiatry Comment on above: 1 week follow up alexandra betic left great toe ulcer Start: 10-14-2024 End: 10-14-2024 Patient encounter procedure 10/14/2024 8:45 AM EDT Office Visit Podiatry [address] [place] [address] Rao Hillman [address] [place] [address] 1 week follow up diabetic left great toe ulcer Podiatry Comment on above: 1 week follow up alexandra betic left great toe ulcer Start: 09-29-2024 Influenza vaccination Influenza Vacc ine (#1) [facility] Comment on above: Postponed from 12/01 (Declined at this time) Start: 09-18-2024 End: 09-18-2024 Patient encounter procedure Neurology Comment on above: UNAUTHORIZED- CSRT ( PERM) VERIFIED 08/26-LSS 1 week follow up alexandra betic left great toe ulcer Snoring; Daytime somnolence Start: 09-11-2024 End: 09-11-2024 Patient encounter procedure Podiatry Comment on above: 3 month follow up Start: 09-04-2024 End: 09-04-2024 Patient encounter procedure 09/04/2024 8:00 AM EDT Office Visit Family Medicine [place] [address] [place], [place] [id number] PodlogarAudrey APRN.PRESSED OR BLOWN GLASS WORKER [address] [place] [address] Follow up Family Medicine [place] Comment on above: Follow up Start: 09-01-2024 End: 12-01-2024 C reactive protein [Mass/volume] in Serum or Plasma [facility] Work Phone: Comment on above: Expected: 09/01/2024 , Expires: 12/01/2024 Start: 09-01-2024 End: 12-01-2024 Comprehensive metabolic 2000 panel - Serum or Plasma [facility] Comment on above: Expected: 09/01/2024 , Expires: 12/01/2024 Start: 08-30-2024 End: 11-29-2024 Ferritin [Mass/volume] in Serum or Plasma FERRITIN Lab Routine Low ferritin level Expected: 08/30/2024, Expires: 11/29/2024 [facility] Comment on above: Expected: 08/30/2024 , Expires: 11/29/2024 Start: 08-30-2024 End: 11-29-2024 Iron and Iron binding capacity panel - Serum or Plasma IRON AND TIBC Lab Routine Low ferritin level Expected: 08/30/2024, Expires: 11/29/2024 [facility] Work Phone: Comment on above: Expected: 08/30/2024 , Expires: 11/29/2024 Start: 08-22-2024 Hepatitis B screening Urine Albumin:Creatinine Ratio [facility] Start: 08-22-2024 Hepatitis B surface antibody level LDL Cholesterol [facility] Start: 08-19-2024 End: 08-19-2024 Patient encounter procedure 08/19/2024 12:40 PM EDT Office Visit Family [facility] [address] [place], [place] [phone] Tobi Sorto MD [address] [place], [place] [id number] Discuss failed sleep medications. See TE 08/18/24. [facility] [place] Comment on above: Discuss failed sleep medications. See TE 08/18/24. Start: 08-09-2024 Annual PCP Team Platen Drier Operator jennifer Disease Visit Annual PCP Team Chronic Disease Visit [facility] Start: 08-09-2024 BP Controlled (<130/80) BP Controlle d (<130/80) [facility] Start: 07-09-2024 End: 10-08-2024 Urinalysis complete panel - Urine URINALYSIS, WITH MICROSCOPIC Lab Routine Stage 3a chronic kidney disease (HCC) Expected: 07/09/2024, Expires: 10/08/2024 [facility] Work Phone: Comment on above: Expected: 07/09/2024 , Expires: 10/08/2024 Start: 07-08-2024 Annual PCP Team Platen Drier Operator jennifer Disease Visit Annual PCP Team Chronic Disease Visit [facility] Start: 07-08-2024 BP Controlled (<130/80) BP Controlle d (<130/80) [facility] Start: 07-08-2024 Diabetic foot examination Diabetic F oot Exam [facility] Start: 07-08-2024 End: 07-08-2024 Patient encounter procedure 07/08/2024 8:00 AM EDT Office Visit [facility] [place] [address] [place], [place] [address] Tobi Sorto MD [address] [place], [place] [id number] 6 month follow up [facility] [place] Comment on above: 6 month follow up Start: 07-03-2024 Annual PCP Team Platen Drier Operator jennifer Disease Visit Annual PCP Team Chronic Disease Visit [facility] Start: 07-03-2024 BP Controlled (<130/80) BP Controlle d (<130/80) [facility] Start: 06-09-2024 End: 06-09-2024 Patient encounter procedure 06/09/2024 8:30 AM EDT Office Visit Podiatry [address] [place] [address] Rao Hillman [address] [address] 3 month follow up, diabetic foot care Podiatry Comment on above: 3 month follow up, d iabetic foot care Start: 06-03-2024 Hemoglobin A1c measurement HbA1C [facility] Start: 04-15-2024 End: 07-15-2024 Ferritin [Mass/volume] in Serum or Plasma FERRITIN Lab Routine Restless leg syndrome Expected: 04/15/2024, Expires: 07/15/2024 [facility] Comment on above: Expected: 04/15/2024 , Expires: 07/15/2024 Start: 04-09-2024 End: 04-09-2024 Patient encounter procedure 04/09/2024 10:40 AM EST Office Visit [facility] [place] [address] [place] [address] Tobi Sorto MD [address] [place] [address] Restless/muscle spasms Leg follow up [facility] [place] Comment on above: Restless/muscle spas ms Leg follow up Start: 04-02-2024 Advance Directive Discussion Advance Directive Discussion [facility] Start: 04-02-2024 Medicare Advantage A nnual Wellness Visit Medicare Advantage Annual Wellness Visit [facility] Start: 03-10-2024 End: 03-10-2024 Patient encounter procedure Podiatry Comment on above: 3 month follow up Start: 03-04-2024 End: 06-03-2024 Iron and Iron binding capacity panel - Serum or Plasma [facility] Work Phone: Comment on above: Expected: 03/04/2024 , Expires: 06/03/2024 Start: 03-04-2024 End: 03-04-2024 Patient encounter procedure 03/04/2024 9:20 AM EST Office Visit [facility] [place] [address] [place] [address] PodAudrey key APRN.PRESSED OR BLOWN GLASS WORKER [address] [place] [address] follow up restless legs still an issue [facility] [place] Comment on above: follow up restless l egs still an issue Start: 02-29-2024 End: 02-29-2024 Patient encounter procedure 02/29/2024 10:00 AM EST Office Visit Neurology [address] [place] [address] hsat Neurology Comment on above: hsat Start: 02-06-2024 End: 02-06-2024 Patient encounter procedure Vascular Surg Dept Comment on above: Dx:PAD Start: 01-18-2024 End: 01-18-2024 Patient encounter procedure 01/18/2024 8:30 AM EDT Office Visit Pulmonary Medicine [address] [address] Alondra Broderick MD [address] [place] [address] follow up Pulmonary Medicine Comment on above: follow up Start: 01-18-2024 End: 01-18-2024 ambulatory Pulmonary Medicine Comment on above: Mild intermittent as thma without complication [J45.20] Start: 01-08-2024 End: 01-08-2024 Patient encounter procedure 01/08/2024 8:00 AM EDT Office Visit Family Medicine [place] [address] [place] [address] PodAudrey key APRN.PRESSED OR BLOWN GLASS WORKER [address] [place] [address] 6 mo follow up [facility] [place] Comment on above: 6 mo follow up Start: 01-06-2024 Annual PCP Team Platen Drier Operator jennifer Disease Visit Annual PCP Team Chronic Disease Visit [facility] Start: 12-05-2023 End: 03-05-2024 CBC W Auto Differential panel - Blood [facility] Comment on above: Expected: 12/05/2023 , Expires: 03/05/2024 Start: 12-05-2023 End: 03-05-2024 Cobalamin (Vitamin B12) [Mass/volume] in Serum or Plasma [facility] Comment on above: Expected: 12/05/2023 , Expires: 03/05/2024 Start: 12-05-2023 End: 03-05-2024 Comprehensive metabolic 2000 panel - Serum or Plasma [facility] Comment on above: Expected: 12/05/2023 , Expires: 03/05/2024 Start: 12-05-2023 End: 03-05-2024 Hemoglobin A1c in Blood [facility] Work Phone: Comment on above: Expected: 12/05/2023 , Expires: 03/05/2024 Start: 12-05-2023 End: 03-05-2024 Zinc [Mass/volume] in Serum or Plasma [facility] Comment on above: Expected: 12/05/2023 , Expires: 03/05/2024 Start: 12-05-2023 End: 12-05-2023 Patient encounter procedure 12/05/2023 7:40 AM EDT Office Visit Family [facility] [place] [address] [place] [address] PodlogarAudrey APRN.PRESSED OR BLOWN GLASS WORKER [address] [place] [address] right leg pain + cant taste anything [facility] [place] Comment on above: right leg pain + can t taste anything Start: 12-04-2023 End: 12-04-2023 Patient encounter procedure 12/04/2023 9:30 AM EDT Office Visit Podiatry [address] [place] [address] Rao Hillman [address] [place] [address] 2 MONTH FOLLOW UP Podiatry Comment on above: 2 MONTH FOLLOW UP Start: 12-02-2023 Covid-19 Vaccine ( season) Covid-19 Vaccine () [facility] Start: 12-02-2023 Covid-19 Vaccine ( season) Covid-19 Vaccine () [facility] Start: 12-02-2023 Influenza vaccination C [facility] Start: 11-23-2023 Hemoglobin A1c measurement HbA1C [facility] Start: 11-23-2023 PNEUMOVAX AGE 65 AND OVER WITH 5YR LOOKBACK (#1) PNEUMOVAX AGE 65 AND OVER WITH 5YR LOOKBACK (#1) [facility] Start: 11-23-2023 PROSTATE CANCER SCRE ENING DISCUSSION PROSTATE CANCER SCREENING DISCUSSION [facility] Start: 11-23-2023 Prostate specific an tigen measurement Prostate Cancer Screening Discussion [facility] Start: 11-21-2023 ANNUAL PCP TEAM SUPERVISOR IRRIGATION JENNIFER DISEASE VISIT ANNUAL PCP TEAM CHRONIC DISEASE VISIT [facility] Start: 11-21-2023 BP CONTROLLED (<130/80) BP CONTROLLE D (<130/80) [facility] Start: 11-14-2023 End: 11-14-2023 Patient encounter procedure Cardiology Comment on above: Abbi [I49.8] Start: 11-08-2023 Hemoglobin A1c measurement HbA1C [facility] Start: 10-19-2023 ANNUAL PCP TEAM SUPERVISOR IRRIGATION JENNIFER DISEASE VISIT ANNUAL PCP TEAM CHRONIC DISEASE VISIT [facility] Start: 09-24-2023 End: 09-24-2023 Patient encounter procedure 09/24/2023 9:45 AM EDT Office Visit Podiatry [address] [place] [address] Rao Hillman [address] [place] [address] 2 month follow up L foot pipo toe Podiatry Comment on above: 2 month follow up L foot pipo toe Start: 09-17-2023 End: 12-17-2023 [employer] [facility] Work Phone: Comment on above: Expected: 09/17/2023 , Expires: 12/17/2023 Start: 09-17-2023 End: 12-17-2023 [employer]GN [employer] [facility] Comment on above: Expected: 09/17/2023 , Expires: 12/17/2023 Start: 09-17-2023 End: 12-17-2023 IgE [Units/volume] in Serum or Plasma [facility] Comment on above: Expected: 09/17/2023 , Expires: 12/17/2023 Start: 09-17-2023 End: 09-17-2023 Patient encounter procedure 09/17/2023 11:00 AM EDT Office Visit Pulmonary Medicine [address] [address] Alondra Broderick MD [address] [place] [address] Restrictive lung disease [J98.4] Pulmonary Medicine Comment on above: Restrictive lung dis ease [J98.4] Start: 09-04-2023 End: 09-04-2023 Patient encounter procedure 09/04/2023 11:20 AM EDT Office Visit Cardiology [address] [place] [address] Bigeminy [I49.8] Cardiology Comment on above: Bigeminy [I49.8] Start: 09-03-2023 End: 12-03-2023 CBC W Ordered Manual Differential panel - Blood PATHOLOGIST INTERPRETATION WITH CBC AND DIFF Lab Routine Elevated hemoglobin (HCC) Expected: 09/03/2023, Expires: 12/03/2023 [facility] Work Phone: Comment on above: Expected: 09/03/2023 , Expires: 12/03/2023 Start: 09-03-2023 End: 09-03-2023 ambulatory [facility] Comment on above: Restrictive lung dis ease [J98.4] Start: 08-23-2023 End: 08-23-2023 ambulatory 08/23/2023 10:15 AM EDT Results Only [facility] [address] [place] [address] [facility] Start: 08-22-2023 End: 08-22-2023 ambulatory 08/22/2023 9:00 AM EDT Procedure [facility] [address] [place] [address] [facility], [facility] [address] [place] [address] Persistent cough [R05.3] [facility] Comment on above: Persistent cough [R0 5.3] Start: 08-08-2023 End: 11-07-2023 ALBUMIN/CREAT RATIO RND UR ALBUMIN/CREAT RATIO RND UR Lab Routine Type 2 diabetes mellitus with peripheral neuropathy (HCC) Expected: 08/08/2023, Expires: 11/07/2023 [facility] Work Phone: Comment on above: Expected: 08/08/2023 , Expires: 11/07/2023 Start: 08-08-2023 End: 11-07-2023 Comprehensive metabolic 2000 panel - Serum or Plasma COMP METABOLIC PANEL Lab Routine Hyperlipidemia with target LDL less than 100 Essential hypertension, benign Expected: 08/08/2023, Expires: 11/07/2023 [facility] Work Phone: Comment on above: Expected: 08/08/2023 , Expires: 11/07/2023 Start: 08-08-2023 End: 11-07-2023 Hemoglobin A1c in Blood HGB A1C Lab Routine Type 2 diabetes mellitus with peripheral neuropathy (HCC) Expected: 08/08/2023, Expires: 11/07/2023 [facility] Work Phone: Comment on above: Expected: 08/08/2023 , Expires: 11/07/2023 Start: 08-08-2023 End: 11-07-2023 Lipid 1996 panel - Serum or Plasma LIPID PANEL BASIC Lab Routine Hyperlipidemia with target LDL less than 100 Expected: 08/08/2023, Expires: 11/07/2023 [facility] Work Phone: Comment on above: Expected: 08/08/2023 , Expires: 11/07/2023 Start: 07-07-2023 Hemoglobin A1c measurement HbA1C [facility] Start: 07-07-2023 Hemoglobin A1c/Hemoglobin.total in Blood HbA1C [facility] Start: 07-06-2023 3 comp foot exam completed DIABETIC FOOT EXAM [facility] Start: 07-06-2023 ANNUAL PCP TEAM SUPERVISOR IRRIGATION JENNIFER DISEASE VISIT ANNUAL PCP TEAM CHRONIC DISEASE VISIT [facility] Start: 07-06-2023 COVID-19 VACCINE (#1) COVID-19 VACCI NE (#1) [facility] Comment on above: Postponed from 01/09 (Declined at this time) Start: 07-06-2023 Diabetic foot examination Diabetic F oot Exam [facility] Start: 07-06-2023 Hepatitis B screening URINE ALBUMIN:CREATININE RATIO [facility] Start: 07-06-2023 Hepatitis B surface antibody level LDL CHOLESTEROL [facility] Start: 07-06-2023 Pneumococcal Vaccine : 65+ (2 - PCV) Pneumococcal Vaccine: 65+ (2 - PCV) [facility] Comment on above: Postponed from 11/22 (Declined at this time) Start: 07-06-2023 Pneumococcal Vaccine : 65+ (2 of 2 - PCV) Pneumococcal Vaccine: 65+ (2 of 2 - PCV) [facility] Comment on above: Postponed from 11/22 (Declined at this time) Start: 07-06-2023 PNEUMOCOCCAL: 65+ (2 - PCV) PNEUMOCOCCAL: 65+ (2 - PCV) [facility] Comment on above: Postponed from 11/22 (Declined at this time) Start: 07-06-2023 SHINGRIX VACCINE (1 of 2) CARRILLO GRIX VACCINE (1 of 2) [facility] Comment on above: Postponed from 07/10 (Declined at this time) Start: 05-24-2023 ANNUAL PCP TEAM SUPERVISOR IRRIGATION JENNIFER DISEASE VISIT ANNUAL PCP TEAM CHRONIC DISEASE VISIT [facility] Start: 05-01-2023 ANNUAL PCP TEAM SUPERVISOR IRRIGATION JENNIFER DISEASE VISIT ANNUAL PCP TEAM CHRONIC DISEASE VISIT [facility] Start: 05-01-2023 BP CONTROLLED (<130/80) BP CONTROLLE D (<130/80) [facility] Start: 04-10-2023 End: 06-10-2023 Comprehensive metabolic 2000 panel - Serum or Plasma COMP METABOLIC PANEL Lab Routine Type 2 diabetes mellitus with peripheral neuropathy (HCC) Expected: 04/10/2023, Expires: 06/10/2023 [facility] Work Phone: Comment on above: Expected: 04/10/2023 , Expires: 06/10/2023 Start: 04-10-2023 End: 06-10-2023 Hemoglobin A1c in Blood HGB A1C Lab Routine Type 2 diabetes mellitus with peripheral neuropathy (HCC) Expected: 04/10/2023, Expires: 06/10/2023 [facility] Work Phone: Comment on above: Expected: 04/10/2023 , Expires: 06/10/2023 Start: 04-09-2023 BP CONTROLLED (<130/80) BP CONTROLLE D (<130/80) [facility] Start: 04-02-2023 Advance Directive Discussion Advance Directive Discussion [facility] Start: 04-02-2023 Behavioral Health Screening Behavioral Health Screening [facility] Start: 04-02-2023 Depression Assessment Depression Ass essment [facility] Start: 02-22-2023 ANNUAL PCP TEAM SUPERVISOR IRRIGATION JENNIFER DISEASE VISIT ANNUAL PCP TEAM CHRONIC DISEASE VISIT [facility] Start: 02-22-2023 BP CONTROLLED (<130/80) BP CONTROLLE D (<130/80) [facility] Start: 01-04-2023 Hemoglobin A1c/Hemoglobin.total in Blood HBA1C [facility] Start: 01-03-2023 ANNUAL PCP TEAM SUPERVISOR IRRIGATION JENNIFER DISEASE VISIT ANNUAL PCP TEAM CHRONIC DISEASE VISIT [facility] Start: 01-03-2023 BP CONTROLLED (<130/80) BP CONTROLLE D (<130/80) [facility] Start: 12-01-2022 Covid-19 Vaccine ( season) Covid-19 Vaccine ( season) [facility] Start: 12-01-2022 Influenza vaccination C [facility] Start: 11-07-2022 End: 01-07-2023 25-hydroxyvitamin D3 [Mass/volume] in Serum or Plasma [facility] Work Phone: Comment on above: Expected: 11/07/2022 , Expires: 01/07/2023 Start: 10-18-2022 End: 12-18-2022 Basic metabolic 2000 panel - Serum or Plasma BASIC METABOLIC PNL Lab Routine Foot pain, right Expected: 10/18/2022, Expires: 12/18/2022 [facility] Work Phone: Comment on above: Expected: 10/18/2022 , Expires: 12/18/2022 Start: 10-18-2022 End: 12-18-2022 CBC W Auto Differential panel - Blood CBC + DIFF Lab Routine Foot pain, right Expected: 10/18/2022, Expires: 12/18/2022 [facility] Work Phone: Comment on above: Expected: 10/18/2022 , Expires: 12/18/2022 Start: 10-18-2022 End: 12-18-2022 Erythrocyte sedimentation rate SED RATE WESTERGREN Lab Routine Foot pain, right Expected: 10/18/2022, Expires: 12/18/2022 [facility] Work Phone: Comment on above: Expected: 10/18/2022 , Expires: 12/18/2022 Start: 10-18-2022 End: 12-18-2022 Urate [Mass/volume] in Serum or Plasma URIC ACID BLOOD Lab Routine Foot pain, right Expected: 10/18/2022, Expires: 12/18/2022 [facility] Work Phone: Comment on above: Expected: 10/18/2022 , Expires: 12/18/2022 Start: 09-29-2022 Influenza vaccination INFLUENZA (#1) [facility] Comment on above: Postponed from 12/01 (Declined at this time) Start: 08-15-2022 ANNUAL PCP TEAM SUPERVISOR IRRIGATION JENNIFER DISEASE VISIT ANNUAL PCP TEAM CHRONIC DISEASE VISIT [facility] Start: 08-10-2022 Glaucoma screening Dilated Retinal E xam [facility] Start: 08-10-2022 Hepatitis C antibody , confirmatory test DILATED RETINAL EXAM [facility] Start: 07-05-2022 Hepatitis B surface antibody level LDL CHOLESTEROL [facility] Start: 07-04-2022 3 comp foot exam completed DIABETIC FOOT EXAM [facility] Start: 07-04-2022 ANNUAL PCP TEAM SUPERVISOR IRRIGATION JENNIFER DISEASE VISIT ANNUAL PCP TEAM CHRONIC DISEASE VISIT [facility] Start: 07-04-2022 BP CONTROLLED (<130/80) BP CONTROLLE D (<130/80) [facility] Start: 07-04-2022 Hemoglobin A1c/Hemoglobin.total in Blood HBA1C [facility] Start: 04-14-2022 ANNUAL PCP TEAM SUPERVISOR IRRIGATION JENNIFER DISEASE VISIT ANNUAL PCP TEAM CHRONIC DISEASE VISIT [facility] Start: 04-10-2022 End: 06-10-2022 CREATININE BLD [facility] Work Phone: Comment on above: Expected: 04/10/2022 , Expires: 06/10/2022 Start: 04-09-2022 End: 06-09-2022 Fungus identified in Unspecified specimen by Culture FUNGAL SCREEN Microbiology Routine Pharyngitis, unspecified etiology Expected: 04/09/2022, Expires: 06/09/2022 [facility] Work Phone: Comment on above: Expected: 04/09/2022 , Expires: 06/09/2022 Start: 04-02-2022 ADVANCE DIRECTIVE DISCUSSION ADVANCE DIRECTIVE DISCUSSION [facility] Start: 04-02-2022 DEPRESSION ASSESSMENT DEPRESSION ASS ESSMENT [facility] Start: 02-22-2022 Hepatitis B screening URINE ALBUMIN:CREATININE RATIO [facility] Start: 02-22-2022 Hepatitis B surface antibody level LDL CHOLESTEROL [facility] Start: 02-21-2022 COVID-19 VACCINE (#1) COVID-19 VACCI NE (#1) [facility] Comment on above: Postponed from 07/10 (Declined at this time) Postponed from 01/09 (Declined at this time) Start: 02-21-2022 COVID-19 VACCINE (1) COVID-19 VACCIN E (1) [facility] Comment on above: Postponed from 07/10 (Declined at this time) Start: 01-04-2022 End: 03-06-2022 POTASSIUM BLD POTASSIUM BLD Lab Routine Hyperkalemia Expected: 01/04/2022, Expires: 03/06/2022 [facility] Work Phone: Comment on above: Expected: 01/04/2022 , Expires: 03/06/2022 Start: 12-01-2021 Influenza vaccination C [facility] Start: 10-04-2021 Hemoglobin A1c/Hemoglobin.total in Blood HBA1C [facility] Start: 09-29-2021 Influenza vaccination INFLUENZA (#1) [facility] Comment on above: Postponed from 12/01 (Declined at this time) Start: 08-21-2021 Hemoglobin A1c/Hemoglobin.total in Blood HBA1C [facility] Start: 07-04-2021 End: 09-03-2021 Basic metabolic 2000 panel - Serum or Plasma BASIC METABOLIC PNL Lab Routine Essential hypertension, benign Expected: 07/04/2021, Expires: 09/03/2021 [facility] Work Phone: Comment on above: Expected: 07/04/2021 , Expires: 09/03/2021 Start: 07-04-2021 End: 09-03-2021 Hemoglobin A1c/Hemoglobin.total in Blood HGB A1C Lab Routine Type 2 diabetes mellitus with microalbuminuria, unspecified whether intermediate manager insulin use (HCC) Expected: 07/04/2021, Expires: 09/03/2021 [facility] Work Phone: Comment on above: Expected: 07/04/2021 , Expires: 09/03/2021 Start: 07-04-2021 End: 09-03-2021 LIPID PANEL BASIC LIPID PANEL BASIC Lab Routine Hyperlipidemia with target LDL less than 100 Expected: 07/04/2021, Expires: 09/03/2021 [facility] Work Phone: Comment on above: Expected: 07/04/2021 , Expires: 09/03/2021 Start: 06-11-2021 3 comp foot exam completed DIABETIC FOOT EXAM [facility] Start: 06-11-2021 Adult depression scr eening assessment DEPRESSION SCREENING [facility] Start: 04-02-2021 ADVANCE DIRECTIVE DISCUSSION ADVANCE DIRECTIVE DISCUSSION [facility] Start: 04-02-2021 DEPRESSION ASSESSMENT DEPRESSION ASS ESSMENT [facility] Start: 12-28-2019 Influenza vaccination LUNG CANCER SC REENING [facility] Start: 11-23-2019 Pneumococcal Vaccine : 50+ (2 of 2 - PCV) Pneumococcal Vaccine: 50+ (2 of 2 - PCV) [facility] Start: 11-23-2019 Pneumococcal Vaccine : 65+ (2 of 2 - PCV) Pneumococcal Vaccine: 65+ (2 of 2 - PCV) [facility] Start: 11-23-2019 PNEUMOCOCCAL: 65+ (2 - PCV) PNEUMOCOCCAL: 65+ (2 - PCV) [facility] Start: 08-02-2019 Hepatitis C antibody , confirmatory test DILATED RETINAL EXAM [facility] Start: 2014 Hepatitis B Vaccine (1 of 3 - Risk 3-dose series) Hepatitis B Vaccine (1 of 3 - Risk 3-dose series) [facility] Start: 2014 RSV Vaccine (1 - 1-d ose 60+ series) RSV Vaccine (1 - 1-dose 60+ series) [facility] Start: 2014 RSV Vaccine (1 - Ris k 60-74 years 1-dose series) RSV Vaccine (1 - Risk 60-74 years 1-dose series) [facility] Start: 2004 SHINGRIX VACCINE (1 of 2) CARRILLO GRIX VACCINE (1 of 2) [facility] Start: 07-11-1999 COLOGUARD (FIT-DNA) COLOGUARD (FIT-D NA) [facility] Start: 07-11-[address] COLONOGRAPHY [facility] Start: 07-11-1999 FECAL OCCULT BLOOD FECAL OCCULT BLOO D [facility] Start: 07-11-1999 Screening for malign ant neoplasm of colon [facility] Start: 07-11-1999 SIGMOIDOSCOPY SIGMOIDOSCOPY [facility] Start: 1972 Anxiety Screening Anxiety Screening [facility] Start: 1972 BP CONTROLLED (<130/80) BP CONTROLLE D (<130/80) [facility] Start: 1972 Depression Screening Depression Scre ening [facility] Start: 01-09-1956 COVID-19 VACCINE (#1) COVID-19 VACCI NE (#1) [facility] Bacteria identified in Wound by Culture BACTERIAL CULTURE AND GRAM STAIN, ABSCESS AND WOUND (AEROBIC CULTURE) Microbiology Routine 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 DIFFICILE PCR Lab Routine Diarrhea, unspecified type Ordered: 04/09/2022 [facility] Work Phone: Comment on above: Ordered: 04/09/2022 End: 04-07-2023 Ct maxillofacial w/o contrast material CT SINUS WO IVCON Radiology Routine Chronic sinusitis, unspecified location 1 Occurrences starting 03/08/2022 until 04/07/2023 [facility] Work Phone: Comment on above: 1 Occurrences starti ng 03/08/2022 until 04/07/2023 End: 05-10-2023 CTA HEAD WO/W IVCON CTA HEAD WO/W IVCON Radiology Routine Thunderclap headache 1 Occurrences starting 04/10/2022 until 05/10/2023 [facility] Work Phone: Comment on above: 1 Occurrences starti ng 04/10/2022 until 05/10/2023 End: 05-24-2023 ECG COMPLETE ECG COMPLETE ECG Routine Irregular heart beat 1 Occurrences starting 05/24/2022 until 05/24/2023 [facility] Work Phone: Comment on above: 1 Occurrences starti ng 05/24/2022 until 05/24/2023 ECG COMPLETE ECG COMPLETE ECG Routine Irregular heartbeat Ordered: 08/10/2023 [facility] Work Phone: Comment on above: Ordered: 08/10/2023 End: 08-09-2024 Echocardiography ECHO Cardiology Routine Bigeminy PAC (premature atrial contraction) Bradycardia Abnormal EKG 1 Occurrences starting 08/10/2023 until 08/09/2024 [facility] Comment on above: 1 Occurrences starti ng 08/10/2023 until 08/09/2024 ENTERIC BACTERIAL PA GIANNI BY PCR ENTERIC BACTERIAL PANEL BY PCR Lab STAT Diarrhea, unspecified type Ordered: 04/09/2022 [facility] Work Phone: Comment on above: Ordered: 04/09/2022 End: 02-12-2025 HOME SLEEP APNEA TEST (HSAT) HOME SLEEP APNEA TEST (HSAT) Procedures Routine Daytime somnolence Snoring 1 Occurrences starting 02/13/2024 until 02/12/2025 [facility] Work Phone: Comment on above: 1 Occurrences starti ng 02/13/2024 until 02/12/2025 End: 10-16-2024 LUNG DIFFUSION CAPACITY (DLCO) LUNG DIFFUSION CAPACITY (DLCO) PFT Routine Mild intermittent asthma without complication 1 Occurrences starting 09/17/2023 until 10/16/2024 [facility] Comment on above: 1 Occurrences starti ng 09/17/2023 until 10/16/2024 LUNG VOLUMES LUNG VOLUMES PFT Routine Abnormal pulmonary function test 05/10/2022 8:57 AM EST [facility] Work Phone: End: 09-26-2024 LUNG VOLUMES LUNG VOLUMES PFT Routine Restrictive lung disease 1 Occurrences starting 08/28/2023 until 09/26/2024 [facility] Work Phone: Comment on above: 1 Occurrences starti ng 08/28/2023 until 09/26/2024 End: 10-16-2024 LUNG VOLUMES LUNG VOLUMES PFT Routine Mild intermittent asthma without complication 1 Occurrences starting 09/17/2023 until 10/16/2024 [facility] Comment on above: 1 Occurrences starti ng 09/17/2023 until 10/16/2024 OUTSIDE VENDOR CARDI AC OUTPATIENT EXTENDED RHYTHM RECORDING (WITHOUT TELEMETRY) OUTSIDE VENDOR CARDIAC OUTPATIENT EXTENDED RHYTHM RECORDING (WITHOUT TELEMETRY) Holter Routine Bigeminy PAC (premature atrial contraction) Bradycardia Ordered: 08/10/2023 [facility] Comment on above: Ordered: 08/10/2023 Ova and parasites identified in Unspecified specimen by Light microscopy OVA + PARA MICROSCOPIC Microbiology STAT Diarrhea, unspecified type Ordered: 04/09/2022 [facility] Work Phone: Comment on above: Ordered: 04/09/2022 End: 05-31-2023 SPIROMETRY - BASELINE AND POST DILATOR SPIROMETRY - BASELINE AND POST DILATOR PFT Routine Chronic cough 1 Occurrences starting 05/01/2022 until 05/31/2023 [facility] Work Phone: Comment on above: 1 Occurrences starti ng 05/01/2022 until 05/31/2023 SPIROMETRY - BASELIN E AND POST DILATOR SPIROMETRY - BASELINE AND POST DILATOR PFT Routine Chronic cough 05/05/2022 9:28 AM EST [facility] Work Phone: End: 09-15-2024 SPIROMETRY - BASELINE AND POST DILATOR SPIROMETRY - BASELINE AND POST DILATOR PFT Routine Persistent cough 1 Occurrences starting 08/17/2023 until 09/15/2024 [facility] Work Phone: Comment on above: 1 Occurrences starti ng 08/17/2023 until 09/15/2024 End: 11-17-2023 US DVT LOWER RIGHT US DVT LOWER RIGHT Radiology STAT Foot swelling 1 Occurrences starting 10/18/2022 until 11/17/2023 [facility] Work Phone: Comment on above: 1 Occurrences starti ng 10/18/2022 until 11/17/2023 End: 08-08-2025 US Kidney - bilateral and Urinary bladder US KIDNEY/BLADDER Radiology Routine Stage 3a chronic kidney disease (HCC) 1 Occurrences starting 07/09/2024 until 08/08/2025 [facility] Comment on above: 1 Occurrences starti ng 07/09/2024 until 08/08/2025 US Kidney - bilatera l and Urinary bladder US KIDNEY/BLADDER Radiology Routine Stage 3a chronic kidney disease (HCC) 07/14/2024 10:35 AM T [facility] Work Phone: US LEG VEIN DVT UNL VAS LAB US LEG VEIN DVT UNL VAS LAB Vascular Lab STAT Foot swelling 10/18/2022 9:[address] [facility] Work Phone: End: 01-09-2025 US Lower extremity artery US LEG ARTERIAL PERIPH UNL VAS LAB Vascular Lab Routine Peripheral arterial disease (HCC) 1 Occurrences starting 01/10/2024 until 01/09/2025 [facility] Work Phone: Comment on above: 1 Occurrences starti ng 01/10/2024 until 01/09/2025 End: 01-09-2025 US Lower extremity artery - bilateral PVR ANK/GRULLON/TOE LUIS VAS LAB Vascular Lab Routine Peripheral arterial disease (HCC) 1 Occurrences starting 01/10/2024 until 01/09/2025 [facility] Comment on above: 1 Occurrences starti ng 01/10/2024 until 01/09/2025 End: 04-09-2025 XR Ankle - right AP and Lateral and oblique XR ANKLE GENERAL 3V AP/LAT/OBL RIGHT Radiology Routine Chronic pain of right ankle 1 Occurrences starting 03/10/2024 until 04/09/2025 [facility] Work Phone: Comment on above: 1 Occurrences starti ng 03/10/2024 until 04/09/2025 XR Ankle - right AP and Lateral and oblique XR ANKLE GENERAL 3V AP/LAT/OBL RIGHT Radiology Routine Chronic pain of right ankle 03/10/2024 9:49 AM EST [facility] End: 09-08-2024 XR Chest PA and Lateral XR CHEST 2V FRONTAL/LAT Radiology Routine Persistent cough for 3 weeks or longer 1 Occurrences starting 08/10/2023 until 09/08/2024 [facility] Comment on above: 1 Occurrences starti ng 08/10/2023 until 09/08/2024 XR Chest PA and Lateral XR CHEST 2V FRONTAL/LAT Radiology Routine Persistent cough for 3 weeks or longer 08/10/2023 11:08 AM EDT [facility] XR Foot - left AP an d Lateral and oblique XR FOOT GENERAL 3V AP/LAT/OBL LEFT Radiology Routine Diabetic ulcer of toe associated with diabetes mellitus due to underlying condition, with fat layer exposed, unspecified laterality (HCC) 09/11/2024 10:33 AM EDT [facility] Work Phone: End: 12-07-2023 XR FOOT GENERAL 3V AP/LAT/OBL BILATERAL XR FOOT GENERAL 3V AP/LAT/OBL BILATERAL Radiology Routine Charcot ankle, right 1 Occurrences starting 11/07/2022 until 12/07/2023 [facility] Work Phone: Comment on above: 1 Occurrences starti ng 11/07/2022 until 12/07/2023 XR FOOT GENERAL 3V AP/LAT/OBL BILATERAL XR FOOT GENERAL 3V AP/LAT/OBL BILATERAL Radiology Routine Charcot ankle, right 11/07/2022 12:46 PM EDT [facility] Work Phone: [facility] Immunizations Immunization Date Immunization Notes Care Provider Fa cility 07-08-2024 pneumococcal conjuga te (PCV20) vaccine, 20 valent (PREVNAR 20) Tobi Sorto MD Work Phone: [facility] 07-08-2024 pneumococcal Conjuga te, unspecified formulation Tobi Sorto MD Work Phone: [facility] Work Phone: 01-02-2019 influenza, seasonal, injectable Mary Carmen Zambdominicky 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 Work Phone: [facility] 01-02-2019 influenza virus vaccine, unspecified formulation Audrey Packer 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 Work Phone: [facility] 11-22-2018 pneumococcal polysaccharide vaccine, 23 valent Mary Carmen Zamborsky 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 Work Phone: [facility] 11-22-2018 tetanus toxoid, redu neeta diphtheria toxoid, and acellular pertussis vaccine, adsorbed Mary Carmen Zamborsky 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 Work Phone: [facility] 01-31-2017 influenza, seasonal, injectable Mary Carmen Zamborsky 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 Work Phone: [facility] 12-09-2015 influenza, injectabl e, quadrivalent, preservative free Mary Carmen Zamborsky 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 Work Phone: [facility] Payers Date Payer Category Payer Private Health Insurance [facility] H[facility] [id number] 2023 Unknown [id number] 2023 Medicare [id number] 2018 Medicare [employer] MEDICARE [employer] MEDICARE PPO [id number] 2018-Present [phone] [address] [address] [place] [address] PPO [id number] 2018 Medicare [id number] Social History Date Type Detail Facility Start: 05-08-2017 End: 01-08-2024 Tobacco smoking status NHIS Smokes tobacco daily [facility] Start: [birth year]-02-1969 End: 12-03-2015 History of tobacco use Cigarette Smoker [facility] Start: 05-08-2017 End: 09-11-2024 Cigarettes smoked current (pack per day) - Reported 1 [facility] Start: 05-08-2017 End: 06-09-2024 Tobacco use and exposure Smokeless tobacco non-user [facility] Start: 04-08-2021 End: 09-18-2024 Alcohol intake Current non-drinker of alcohol (finding) [facility] Start: 02-21-2021 History SDOH Physica l Activity DPW 5 [facility] Start: 02-21-2021 History SDOH Physica l Activity MPS 98 [facility] Start: 02-21-2021 History SDOH Housing Unable to Pay 2 [facility] Start: 02-21-2021 History SDOH Housing Homeless Last Year 1 [facility] Start: 05-08-2017 End: 01-03-2022 Tobacco Comment Started to smoke again, about 1/2 pack now 05/2017 [facility] Start: 1955 Sex Assigned At Not on file C [facility] Start: 06-15-2020 End: 02-22-2022 Exposure to SARS-CoV-2 (event) Not sure [facility] Start: 02-16-2022 Tobacco Comment Started to smo ke again, 1 pack a week [facility] Start: 02-21-2021 End: 09-11-2024 Social connection and isolation panel [facility] In a typical week, h ow many times do you talk on the telephone with family, friends, or neighbors? Patient refused [facility] Are you now , , , , never or living with a partner? Refused [facility] (I/We) worried suzette er (my/our) food would run out before (I/we) got money to buy more. DK or Refused [facility] In the past 12 month s, was there a time when you were not able to pay the mortgage or rent on time? No [facility] At any time in the past 12 months, were you homeless or living in senior care [including now]? Yes [facility] Start: 05-10-2023 Tobacco Comment Started to smo ke again, 1/2 pack a week [facility] Start: 06-09-2024 [facility] tobacco smoker [facility] NEGATED: Highlighted rowStart: RAIF History of tobacco use Passive smoker [facility] Medical Equipment Procedure Code Equipment Code Equipment Origin al Text Equipment Identifier Dates Graft Hemashield [place] 8mm Straight 2 Velour Collagen Polyester 30cm - [id number] Start: 12-08-2015 Comment on above: Description: right solis emoral artery Alg-Dx-E-Kind Implant - [id number] Start: 01-20-2019 Comment on above: Description: RIGHT Sharp REAT TOE [id number], [id number], [id number] Start: 05-29-2018 Comment on above: Test once daily DX: E11.42, E11.29 1 Each once daily. Test once daily DX: E11.42. E11.29 Goals Date Patient Goal Desired Activity /State Personal health goal Functional Status Date Assessment Result Facility 05-10-2017 Are you deaf, or do you have serious difficulty hearing No 05/10/2017 1:00 PM Neena Rahman, SHAMAR No [facility] 05-10-2017 Are you blind, or do you have serious difficulty seeing, even when wearing glasses No 05/10/2017 1:00 PM Neena Rahman, SHAMAR [facility] 05-10-2017 Do you have serious difficulty walking or climbing stairs No 05/10/2017 1:00 PM Neena Rahman, SHAMAR No [facility] 05-10-2017 Do you have difficul ty dressing or bathing No 05/10/2017 1:00 PM Neena Rahman, SHAMAR No [facility] 05-10-2017 Because of a physica l, mental, or emotional condition, do you have difficulty doing errands alone such as visiting a physician's office or shopping No 05/10/2017 1:00 PM Neena Rahman RN No [facility] Mental Status Date Assessment Result Facility 05-10-2017 Because of a physica l, mental, or emotional condition, do you have serious difficulty concentrating, remembering, or making decisions No 05/10/2017 1:00 PM Neena Rahman RN No [facility] Clinical Notes 05-09-2017 to 10-14-2024 Rao Hillman - 10/14/2024 1:03 PM Bekah Pabon LPN - 10/14/2024 9:40 AM Bekah Pabon LPN - 10/14/2024 8:28 AM Liliane Coronel RT(Laurence) - 10/14/2024 9:30 AM EDTPatient Instructions Note Date & Type Note Facility 10-14-2024 Note HNO ID: [id number] Author: RAO HILLMAN, ? Service: ? Author Type: Physician Type: Progress Notes Filed: 10/14/2024 13:04 Note Text: Subjective Russ Estes is a 69-year-old male with a history of diabetes and vascular disease, presenting for evaluation of left great toe cellulitis. Left Great Toe Cellulitis: - Onset last week after returning from vacation. - Recent vacation involved walking barefoot on sand in [place], [place], and [place], [place]. - Noticed swelling and redness in the left great toe upon returning home. - Denies known trauma or blistering from hot sand. - History of a sore on the left great toe, appeared healed by September 18, with only a little dryness remaining - [id number] noted a hole in the bottom of the toe. Musculoskeletal: (+) left foot swelling, (+) difficulty walking, (-) foot blister PAST MEDICAL HISTORY Diagnosis Date Aneurysm right common femoral artery. Dr. Ordoñez Colon polyps 08/2018 benign, repeat in 10 years Diabetes mellitus, type II (HCC) Diabetic ulcer of toe of right foot (HCC) DVT (deep venous thrombosis) (HCC) GERD (gastroesophageal reflux disease) Hyperlipidemia Hypertension Obesity PAC (premature atrial contraction) Peripheral arterial disease Restless leg syndrome Snoring Tobacco use Current Outpatient Medications Medication Sig Dispense Refill amoxicillin-clavulanate potassium (AUGMENTIN) 875-125 mg per tablet Take 1 tablet by mouth two times a day for 7 days. 14 tablet 0 ciprofloxacin HCl (CIPRO) 500 mg tablet Take 1 tablet by mouth two times a day for 7 days. FOR 7 DAYS. 14 tablet 0 omeprazole (PRILOSEC) 20 mg capsule Take 1 capsule by mouth once daily. 42 capsule 0 CPAP/BIPAP/OTHER Type .CPAPSettings into a note to see current settings/supplies/DME information. 1 each 0 ferrous sulfate 325 mg (65 mg iron) tablet Take 1 tablet by mouth once daily. 90 tablet 1 albuterol HFA (VENTOLIN HFA) 90 mcg/actuation inhaler Inhale 2 puffs as instructed every 4 hours as needed for wheezing/shortness of breath. 18 g 1 urea (CARMOL) 40 % Apply to affected area once daily. 198 g 11 silver 200 mcg/gram gel Apply to affected area once daily. 90 g 1 glimepiride (AMARYL) 4 mg tablet Take 2 tablets by mouth daily with breakfast. 180 tablet 1 gabapentin (NEURONTIN) 300 mg capsule Take 3 capsules by mouth daily at bedtime for 90 days. 90 capsule 2 gabapentin (NEURONTIN) 600 mg tablet Take one tablet between 2-3 PM daily 30 tablet 2 amitriptyline (ELAVIL) 25 mg tablet Take 1 tablet by mouth daily at bedtime. 90 tablet 1 metFORMIN (GLUCOPHAGE) 1,000 mg tablet Take 1 tablet by mouth two times a day with meals. . 180 tablet 1 atorvastatin (LIPITOR) 40 mg tablet Take 1 tablet by mouth once daily. For cholesterol. 90 tablet 1 pramipexole (MIRAPEX) 0.25 mg tablet Take 2 tablets by mouth daily at bedtime. 180 tablet 1 losartan (COZAAR) 100 mg tablet Take 1 tablet by mouth once daily. 90 tablet 1 hydroCHLOROthiazide 50 mg tablet Take 1 tablet by mouth once daily. 90 tablet 1 montelukast (SINGULAIR) 10 mg tablet TAKE 1 TABLET BY MOUTH EVERYDAY AT BEDTIME 90 tablet 0 empagliflozin (JARDIANCE) 25 mg tablet Take 1 tablet by mouth once daily. Take 1 tablet once daily in the morning 90 tablet 1 fluticasone-salmeterol (ADVAIR) 500-50 mcg/dose dsdv INHALE 1 PUFF INSTRUCTED TWO TIMES A DAY 60 Each 4 Lactobacillus acidophilus (FLORAJEN ACIDOPHILUS) 20 billion cell capsule Take 1 capsule by mouth once daily. (Patient not taking: Reported on 07/23/2023) 30 capsule 0 blood sugar diagnostic (TRUE METRIX GLUCOSE TEST STRIP) test strip Test once daily DX: E11.42, E11.29 100 Strip 3 Blood Pressure Monitor (BLOOD PRESSURE KIT) 1 Each once daily. 1 Kit 0 Blood-Glucose Meter (TRUE METRIX AIR GLUCOSE METER) misc 1 Device twice daily. 1 Each 0 Lancets lancets Test once daily DX: E11.42. E11.29 100 Each 3 insulin needles, DISPOSABLE, (BD INSULIN PEN NEEDLE UF) 31 gauge x 5/16 ndle 1 Each once daily. 100 Each 5 aspirin 81 mg chewable tablet Take 1 tablet by mouth once daily. 0 No current facility-administered medications for this visit. Family History Problem Relation Age of Onset other (liver cancer) Mother age 34 Cancer Father age 54 Diabetes Brother Alive age 68 Asthma Other Alive age 41 No Known Problems Maternal Grandmother No Known Problems Maternal Grandfather No Known Problems Paternal Grandmother No Known Problems Paternal Grandfather Objective There were no vitals taken for this visit. - Cardiovascular: Dorsalis pedis and posterior tibial pulses non-palpable bilaterally; capillary refill time <5 seconds; skin temperature warm proximally and distally. - Skin: Cellulitis of the left great toe extending to the level of the first metatarsophalangeal joint; dry, hyperkeratotic fissure on the plantar medial aspect of the left hallux interphalangeal joint; slight drainage (more content not included)... [facility] 10-14-2024 History of Present illness Narrative Subjective Russ Estes is a 69-year-old male with a history of diabetes and vascular disease, presenting for evaluation of left great toe cellulitis. Left Great Toe Cellulitis: - Onset last week after returning from vacation. - Recent vacation involved walking barefoot on sand in [place], [place], and [place], [place]. - Noticed swelling and redness in the left great toe upon returning home. - Denies known trauma or blistering from hot sand. - History of a sore on the left great toe, appeared healed by September 18, with only a little dryness remaining - [id number] noted a hole in the bottom of the toe. Musculoskeletal: (+) left foot swelling, (+) difficulty walking, (-) foot blister PAST MEDICAL HISTORY Diagnosis Date Aneurysm right common femoral artery. Dr. Ordoñez Colon polyps 08/2018 benign, repeat in 10 years Diabetes mellitus, type II (HCC) Diabetic ulcer of toe of right foot (HCC) DVT (deep venous thrombosis) (HCC) GERD (gastroesophageal reflux disease) Hyperlipidemia Hypertension Obesity PAC (premature atrial contraction) Peripheral arterial disease Restless leg syndrome Snoring Tobacco use Current Outpatient Medications Medication Sig Dispense Refill amoxicillin-clavulanate potassium (AUGMENTIN) 875-125 mg per tablet Take 1 tablet by mouth two times a day for 7 days. 14 tablet 0 ciprofloxacin HCl (CIPRO) 500 mg tablet Take 1 tablet by mouth two times a day for 7 days. FOR 7 DAYS. 14 tablet 0 omeprazole (PRILOSEC) 20 mg capsule Take 1 capsule by mouth once daily. 42 capsule 0 CPAP/BIPAP/OTHER Type .CPAPSettings into a note to see current settings/supplies/DME information. 1 each 0 ferrous sulfate 325 mg (65 mg iron) tablet Take 1 tablet by mouth once daily. 90 tablet 1 albuterol HFA (VENTOLIN HFA) 90 mcg/actuation inhaler Inhale 2 puffs as instructed every 4 hours as needed for wheezing/shortness of breath. 18 g 1 urea (CARMOL) 40 % Apply to affected area once daily. 198 g 11 silver 200 mcg/gram gel Apply to affected area once daily. 90 g 1 glimepiride (AMARYL) 4 mg tablet Take 2 tablets by mouth daily with breakfast. 180 tablet 1 gabapentin (NEURONTIN) 300 mg capsule Take 3 capsules by mouth daily at bedtime for 90 days. 90 capsule 2 gabapentin (NEURONTIN) 600 mg tablet Take one tablet between 2-3 PM daily 30 tablet 2 amitriptyline (ELAVIL) 25 mg tablet Take 1 tablet by mouth daily at bedtime. 90 tablet 1 metFORMIN (GLUCOPHAGE) 1,000 mg tablet Take 1 tablet by mouth two times a day with meals. . 180 tablet 1 atorvastatin (LIPITOR) 40 mg tablet Take 1 tablet by mouth once daily. For cholesterol. 90 tablet 1 pramipexole (MIRAPEX) 0.25 mg tablet Take 2 tablets by mouth daily at bedtime. 180 tablet 1 losartan (COZAAR) 100 mg tablet Take 1 tablet by mouth once daily. 90 tablet 1 hydroCHLOROthiazide 50 mg tablet Take 1 tablet by mouth once daily. 90 tablet 1 montelukast (SINGULAIR) 10 mg tablet TAKE 1 TABLET BY MOUTH EVERYDAY AT BEDTIME 90 tablet 0 empagliflozin (JARDIANCE) 25 mg tablet Take 1 tablet by mouth once daily. Take 1 tablet once daily in the morning 90 tablet 1 fluticasone-salmeterol (ADVAIR) 500-50 mcg/dose dsdv INHALE 1 PUFF INSTRUCTED TWO TIMES A DAY 60 Each 4 Lactobacillus acidophilus (FLORAJEN ACIDOPHILUS) 20 billion cell capsule Take 1 capsule by mouth once daily. (Patient not taking: Reported on 07/23/2023) 30 capsule 0 blood sugar diagnostic (TRUE METRIX GLUCOSE TEST STRIP) test strip Test once daily DX: E11.42, E11.29 100 Strip 3 Blood Pressure Monitor (BLOOD PRESSURE KIT) 1 Each once daily. 1 Kit 0 Blood-Glucose Meter (TRUE METRIX AIR GLUCOSE METER) misc 1 Device twice daily. 1 Each 0 Lancets lancets Test once daily DX: E11.42. E11.29 100 Each 3 insulin needles, DISPOSABLE, (BD INSULIN PEN NEEDLE UF) 31 gauge x 5/16 ndle 1 Each once daily. 100 Each 5 aspirin 81 mg chewable tablet Take 1 tablet by mouth once daily. 0 No current facility-administered medications for this visit. Family History Problem Relation Age of Onset other (liver cancer) Mother age 34 Cancer Father age 54 Diabetes Brother Alive age 68 Asthma Other Alive age 41 No Known Problems Maternal Grandmother No Known Problems Maternal Grandfather No Known Problems Paternal Grandmother No Known Problems Paternal Grandfather Objective There were no vitals taken for this visit. - Cardiovascular: Dorsalis pedis and posterior tibial pulses non-palpable bilaterally; capillary refill time <5 seconds; skin temperature warm proximally and distally. - Skin: Cellulitis of the left great toe extending to the level of the first metatarsophalangeal joint; dry, hyperkeratotic fissure on the plantar medial aspect of the left hallux interphalangeal joint; slight drainage from plantar ulceration; ; full-thickness ulceration on the plantar aspect of the left hallux interphalangeal joint measuring 1.2 cm x 0.7 cm; significant skin sloughing along the medial aspect of the left hallux interphalangeal joint with blistering along the dorsal hallux; ulceration depth approximately 2 mm. Labs: Tests: Imaging: (February 2024) Pulse Volume Recording: - Left dorsalis pedis CHARLENE: 0.94 - Left posterior tibial CHARLENE: 1.00 - Left toe pressure: 0.61 - Right dorsalis pedis CHARLENE: 0.93 - Right posterior tibial CHARLENE: 1.03 - Right toe pressure: 0.51 Assessment & Plan 1. Diabetic ulcer of toe associated with diabetes mellitus due to underlying condition, with fat layer exposed, unspecified laterality ([facility]) (E08.621) - Full thickness ulceration to the plantar aspect of the left hallux interphalangeal joint measuring 1.2 cm x 0.7 cm with significant skin slough and blistering; ulceration depth approximately 2 mm. - Suspected cellulitis extending to the level of the first metatarsophalangeal joint. - Wound culture obtained to identify bacterial pathogens. - Ordered stat X-ray of the left toe to evaluate for potential osteomyelitis. - I debrided the wound of nonviable tissue with tissue nippers. total debridement thru subcutaneous tissue was 1.2 cm x 0.7 cm x 2 mm. deep sterile wound cu lture obtained. bleeding was present and controlled with pressure. - Applied Aquacel to the plantar ulceration and Betadine to the dorsal aspect. - Advised patient to clean the wound with soap and water, dry thoroughly, apply Betadine to the top and Aquacel to the bottom. - Provided a surgical shoe to offload pressure from the affected area. - Strongly recommended hospital admission for IV antibiotics and further vascular evaluation; discussed potential risk of partial or total toe amputation if infection is not controlled. I prescribed antibiotic but again, i would prefer he go to the hospital today. - If unable to go to the hospital today, prescribed Augmentin for 7 days. - Follow-up with vascular surgery at [facility] recommended for optimal management. 2. PAD (peripheral artery disease) (I73.9) - PVR performed in February 2024 shows CHARLENE of the left dorsalis pedis is 0.94, posterior tibial is 1.00, toe pressure is 0.61 on the left; CHARLENE on the right lower extremity 0.93 and 1.03 with the toe pressure 0.51. - Non-palpable dorsalis pedis and posterior tibial pulses bilaterally; capillary refill time less than 5 seconds. - Advised patient on the importance of vascular evaluation to assess healing potential of the ulcer and any necessary interventions. - Recommended follow-up with vascular surgery at [facility] for comprehensive management. Recording using [employer] software for draft documentation of the visit was discussed with the patient/authorized commercial representative; all questions welcomed and answered. Patient/authorized commercial representative agreed to proceed Rao Hillman DPM Per Joshua Phan wound to left great toe was dressed with iodine to top of the wound and Aquacel to bottom of wound. Patient was offered post op shoe with offloading shoe. Patient states he has one from a few weeks ago. instructed/educated in its application, wear, and care. All questions were answered, and patient was able to demonstrate competence with the necessary skills to utilize the above equipment. Reiterated to patient that it is highly recommend to present to ED. Patient verbalized understanding. Bekah Flynn LPN AMB ROOMING INTAKE FLOWSHEET DATA Pain Pain Level: 4 Pain Location: Toe Description: Sharp Duration Amount of Time: 4 Duration Units: Days Frequency: Intermittent Intervention/Comfort measure: Reposition, Relaxation Patient presents with: Left Great Toe - Established Patient, Follow Up, Diabetic Foot Ulcer, Pain Patient present to office for diabetic great toe ulcer. [place] walking and did not have shoes on. Patient states that he started to have increasing pain 4 days ago. Patient present to office with no dressing applied. Bekah Flynn LPN documented in this encounter [facility] 10-14-2024 Note HNO ID: [id number] Author: BEKAH FLYNN LPN Service: ? Author Type: LICENSED NURSE Type: Progress Notes Filed: 10/14/2024 13:04 Note Text: Per Dr. Hillman, Joshua wound to left great toe was dressed with iodine to top of the wound and Aquacel to bottom of wound. Patient was offered post op shoe with offloading shoe. Patient states he has one from a few weeks ago. instructed/educated in its application, wear, and care. All questions were answered, and patient was able to demonstrate competence with the necessary skills to utilize the above equipment. Reiterated to patient that it is highly recommend to present to ED. Patient verbalized understanding. Bekah Flynn LPN [facility] 10-14-2024 History of Present illness Narrative Radiology Service Progress Note PATIENT NAME: Joshua Estes DATE OF SERVICE: October 14, 2024 TIME: 4:25 PM PATIENT IDENTITY VERIFICATION COMPLETED USING TWO [...] Increased Observations by Caregivers PATIENT GENDER DATA: Assigned male at PATIENT RELEVANT IMPLANT DATA REVIEWED: Not Applicable PATIENT PRESENTS WITH AN IMPLANTABLE OR ATTACHED DIRECTOR OF PRECLINICAL RESEARCH: No RADIOLOGY DEPARTMENT: General X-ray: Exam(s) Completed: Lower Extremity X-Ray(s): Toes, Left, GREAT TOE PERIPHERAL IV DATA: Not applicable SIGNED BY: RT Val(Laurence) October 14, 2024 4:25 PM documented in this encounter [facility] 10-14-2024 Note HNO ID: [id number] Author: LILIANE LEWIS RT(R) Service: ? Author Type: Technologist Type: Progress Notes Filed: 10/14/2024 16:26 Note Text: Radiology Service Progress Note PATIENT NAME: Joshua Estes DATE OF SERVICE: October 14, 2024 TIME: 4:25 PM PATIENT IDENTITY VERIFICATION COMPLETED USING TWO [...] Increased Observations by Caregivers PATIENT GENDER DATA: Assigned male at PATIENT RELEVANT IMPLANT DATA REVIEWED: Not Applicable PATIENT PRESENTS WITH AN IMPLANTABLE OR ATTACHED DIRECTOR OF PRECLINICAL RESEARCH: No RADIOLOGY DEPARTMENT: General X-ray: Exam(s) Completed: Lower Extremity X-Ray(s): Toes, Left, GREAT TOE PERIPHERAL IV DATA: Not applicable SIGNED BY: RT Val(R) October 14, 2024 4:25 PM [facility] 10-14-2024 Instructions Rao Hillman - 10/14/2024 9:22 AM EDT - Obtain a stat X-ray of your left big toe before leaving the clinic to check for bone involvement. - A wound culture was taken today; we will review the results to guide antibiotic therapy. - Go to the Emergency Department today or tomorrow for admission, IV antibiotics, and a vascular evaluation. The preferred location is [facility] (with Dr. Jean), but you may also use [facility] or [facility] if [facility] is not feasible, but this provider does not do inpatient care at [place] or [place]. - If you cannot get to the hospital today or tomorrow, start Augmentin as prescribed for 7 days. - Clean the wound on your left big toe daily with soap and water, then dry it thoroughly. - Apply Betadine to the top of the wound and place Aquacel on the bottom as directed. - Wear the provided surgical off-loading shoe at all times to keep pressure off the ulcer and aid healing. - you are at risk of partial or complete toe amputation documented in this encounter [facility] 10-14-2024 Note HNO ID: [id number] Author: BEKAH FLYNN LPN Service: ? Author Type: LICENSED NURSE Type: Progress Notes Filed: 10/14/2024 13:04 Note Text: AMB ROOMING INTAKE FLOWSHEET DATA Pain Pain Level: 4 Pain Location: Toe Description: Sharp Duration Amount of Time: 4 Duration Units: Days Frequency: Intermittent Intervention/Comfort measure: Reposition, Relaxation Patient presents with: Left Great Toe - Established Patient, Follow Up, Diabetic Foot Ulcer, Pain Patient present to office for diabetic great toe ulcer. [place] and did not have shoes on. Patient states that he started to have increasing pain 4 days ago. Patient present to office with no dressing applied. Bekah Flynn LPN [facility] 10-13-2024 Telephone encounter Note Last OV: 09/04/24. Pt calls to request refill on medication. Prescription Refill Information The patient has been identified by name and date of : Yes Caregiver verified no other encounters exist for this prescription request: Yes Caregiver confirmed with patient/requestor that no other refills are due, in the near future, with this provider at this time: Yes The last office visit in the department: 09/04/24 Does the patient have a future office visit with this provider/department: Yes 01/07/25 Requested Prescriptions Pending Prescriptions Disp Refills omeprazole (PRILOSEC) 20 mg capsule 42 capsule 0 Sig: Take 1 capsule by mouth once daily. Karen Rush LPN October 13, 2024 3:26 PM [facility] 10-13-2024 Miscellaneous Notes Last OV: 09/04/24. Pt calls to request refill on medication. Prescription Refill Information The patient has been identified by name and date of : Yes Caregiver verified no other encounters exist for this prescription request: Yes Caregiver confirmed with patient/requestor that no other refills are due, in the near future, with this provider at this time: Yes The last office visit in the department: 09/04/24 Does the patient have a future office visit with this provider/department: Yes 01/07/25 Requested Prescriptions Pending Prescriptions Disp Refills omeprazole (PRILOSEC) 20 mg capsule 42 capsule 0 Sig: Take 1 capsule by mouth once daily. Karen Rush LPN October 13, 2024 3:26 PM documented in this encounter [facility] 09-23-2024 Telephone encounter Note Patient has been identified by name and date of : yes Patient phones for refill(s): Requested Prescriptions Pending Prescriptions Disp Refills ferrous sulfate 325 mg (65 mg iron) tablet 90 tablet 0 Sig: Take 1 tablet by mouth once daily. Date of last office visit in primary care: 09/04/2024 Date of next office visit in primary care: 01/07/2025 Please advise. Thank you. Alondra Gillette MA. [facility] 09-23-2024 Miscellaneous Notes Patient has been identified by name and date of : yes Patient phones for refill(s): Requested Prescriptions Pending Prescriptions Disp Refills ferrous sulfate 325 mg (65 mg iron) tablet 90 tablet 0 Sig: Take 1 tablet by mouth once daily. Date of last office visit in primary care: 09/04/2024 Date of next office visit in primary care: 01/07/2025 Please advise. Thank you. Alondra Gillette MA. Prescription Refill Information The patient has been identified by name and date of : Yes Caregiver verified no other encounters exist for this prescription request: Yes Caregiver confirmed with patient/requestor that no other refills are due, in the near future, with this provider at this time: Yes The last office visit in the department: 09-04-24 Does the patient have a future office visit with this provider/department: Yes Requested Prescriptions Pending Prescriptions Disp Refills ferrous sulfate 325 mg (65 mg iron) tablet 90 tablet 0 Sig: Take 1 tablet by mouth once daily. Jael Samuels September 22, 2024 12:22 PM documented in this encounter [facility] 09-22-2024 Telephone encounter Note Prescription Refill Information The patient has been identified by name and date of : Yes Caregiver verified no other encounters exist for this prescription request: Yes Caregiver confirmed with patient/requestor that no other refills are due, in the near future, with this provider at this time: Yes The last office visit in the department: 09-04-24 Does the patient have a future office visit with this provider/department: Yes Requested Prescriptions Pending Prescriptions Disp Refills ferrous sulfate 325 mg (65 mg iron) tablet 90 tablet 0 Sig: Take 1 tablet by mouth once daily. Jael Samuels September 22, 2024 12:22 PM [facility] 09-22-2024 Note HNO ID: [id number] Author: ?, ?, ? Service: ? Author Type: ? Type: Progress Notes Filed: 09/22/2024 10:32 Note Text: Sleep Study Check-In Documentation Date: September 22, 2024 Name: Joshua Estes Comments: HST was returned in working order without all sleep questionnaires Patient was not reached. A voicemail was left with patient to call back to complete questionnaires. Wayne Burnett [facility] 09-22-2024 History of Present illness Narrative Sleep Study Check-In Documentation Date: September 22, 2024 Name: Joshua Estes Comments: HST was returned in working order without all sleep questionnaires Patient was not reached. A voicemail was left with patient to call back to complete questionnaires. Wayne Burnett [facility] # [id number] , date shipped out 09-17-24 FED EX ONLY Tracking mailout: [id number] Tracking return: [id number] August 28, 2024 Standing PSG Orders signed in the last 90 days None Future PSG Orders signed in the last 90 days Ordered Auth. provider HOME SLEEP APNEA TEST (HSAT) [[id number]] 08/19/24 Tobi Sorto MD Assoc. diagnoses: Snoring [R06.83], Daytime somnolence [R40.0] Q: Indications: A: Obstructive sleep apnea Q: STOP-BANG conditions - Select All That Apply: A: GENDER = male A2: AGE > 50 A3: high blood PRESSURE A4: SNORING that is loud or disruptive Q: Current use of supplemental oxygen during sleep period?: A: No All Prior Sleep Studies (past 365 days) 08/19/2024 13:02 Sleep Studies HOME SLEEP APNEA TEST (HSAT) HOME SLEEP APNEA TEST (HSAT) Order Status: Ordered, Future Expires: 08/19/25 BMI Readings from Last 2 Encounters: 08/19/24 : 33.42 kg/m 07/16/24 : 34.18 kg/m PAST MEDICAL HISTORY Diagnosis Date Aneurysm right common femoral artery. Dr. Ordoñez Colon polyps 08/2018 benign, repeat in 10 years Diabetes mellitus, type II (HCC) Diabetic ulcer of toe of right foot (HCC) DVT (deep venous thrombosis) (HCC) GERD (gastroesophageal reflux disease) Hyperlipidemia Hypertension Obesity PAC (premature atrial contraction) Peripheral arterial disease Restless leg syndrome Snoring Tobacco use The [...] Test (HSAT) Special instructions: None-follow laboratory protocol Yasmin Manning Sleep [facility] Staff Note: I have read the above protocol, edited as needed, and agree to the plan. Rell Tidwell APRN.PRESSED OR BLOWN GLASS WORKER 3:21 PM, 08/28/2024 CURRENTLY UNAUTHORIZED- CSRT (PERM) VERIFIED 08/26-LSS August 26, 2024 An order has been received for Home Sleep Apnea Test (HSAT) from Tobi Gibson MD, a [facility] Staff. Visit prep complete. Comments :No The sleep study is scheduled for 09/17/24. Insurance: Payor: [employer] MEDICARE / Plan: [employer] HMO / Product Type: HMO / Payer/Plan Subscr Sex Relation Sub. Ins. ID Effective Group Num 1. DEVOTED MEDIC* JOSHUA ESTES 1955 Male Self [id number] 12/02/23 [address] Yousuf Milner documented in this encounter [facility] 09-18-2024 Note HNO ID: [id number] Author: RAO HILLMAN, ? Service: ? Author Type: Physician Type: Progress Notes Filed: 09/18/2024 09:00 Note Text: Subjective Russ Estes is a 69-year-old male presenting for follow-up of a foot sore. Foot Sore: - Noted improvement in the sore since last week. - History of callus and ulceration on the right foot, previously managed with a procedure to remove bone and reduce pressure. - Recent sore believed to be caused by picking at dry skin. - Applies lotion to feet daily; recently ran out of Gold [place] and used a generic brand with less effectiveness. - Has Vaseline at home and plans to use it for moisturizing. - is currently using silver gel. did not get the urea cream due to cost. Skin: (+) skin dryness bilateral feet PAST MEDICAL HISTORY Diagnosis Date Aneurysm right common femoral artery. Dr. Ordoñez Colon polyps 08/2018 benign, repeat in 10 years Diabetes mellitus, type II (HCC) Diabetic ulcer of toe of right foot (HCC) DVT (deep venous thrombosis) (HCC) GERD (gastroesophageal reflux disease) Hyperlipidemia Hypertension Obesity PAC (premature atrial contraction) Peripheral arterial disease Restless leg syndrome Snoring Tobacco use Current Outpatient Medications Medication Sig Dispense Refill albuterol HFA (VENTOLIN HFA) 90 mcg/actuation inhaler Inhale 2 puffs as instructed every 4 hours as needed for wheezing/shortness of breath. 18 g 1 urea (CARMOL) 40 % Apply to affected area once daily. 198 g 11 silver 200 mcg/gram gel Apply to affected area once daily. 90 g 1 omeprazole (PRILOSEC) 20 mg capsule Take 1 capsule by mouth once daily. 42 capsule 0 glimepiride (AMARYL) 4 mg tablet Take 2 tablets by mouth daily with breakfast. 180 tablet 1 gabapentin (NEURONTIN) 300 mg capsule Take 3 capsules by mouth daily at bedtime for 90 days. 90 capsule 2 gabapentin (NEURONTIN) 600 mg tablet Take one tablet between 2-3 PM daily 30 tablet 2 amitriptyline (ELAVIL) 25 mg tablet Take 1 tablet by mouth daily at bedtime. 90 tablet 1 metFORMIN (GLUCOPHAGE) 1,000 mg tablet Take 1 tablet by mouth two times a day with meals. . 180 tablet 1 atorvastatin (LIPITOR) 40 mg tablet Take 1 tablet by mouth once daily. For cholesterol. 90 tablet 1 pramipexole (MIRAPEX) 0.25 mg tablet Take 2 tablets by mouth daily at bedtime. 180 tablet 1 losartan (COZAAR) 100 mg tablet Take 1 tablet by mouth once daily. 90 tablet 1 hydroCHLOROthiazide 50 mg tablet Take 1 tablet by mouth once daily. 90 tablet 1 montelukast (SINGULAIR) 10 mg tablet TAKE 1 TABLET BY MOUTH EVERYDAY AT BEDTIME 90 tablet 0 ferrous sulfate 325 mg (65 mg iron) tablet Take 1 tablet by mouth once daily. 90 tablet 0 empagliflozin (JARDIANCE) 25 mg tablet Take 1 tablet by mouth once daily. Take 1 tablet once daily in the morning 90 tablet 1 fluticasone-salmeterol (ADVAIR) 500-50 mcg/dose dsdv INHALE 1 PUFF INSTRUCTED TWO TIMES A DAY 60 Each 4 blood sugar diagnostic (TRUE METRIX GLUCOSE TEST STRIP) test strip Test once daily DX: E11.42, E11.29 100 Strip 3 Blood Pressure Monitor (BLOOD PRESSURE KIT) 1 Each once daily. 1 Kit 0 pentoxifylline ER (TRENTAL) 400 mg CR tablet Take 1 tablet by mouth three times daily with meals. 90 tablet 1 Blood-Glucose Meter (TRUE METRIX AIR GLUCOSE METER) misc 1 Device twice daily. 1 Each 0 Lancets lancets Test once daily DX: E11.42. E11.29 100 Each 3 insulin needles, DISPOSABLE, (BD INSULIN PEN NEEDLE UF) 31 gauge x 5/16 ndle 1 Each once daily. 100 Each 5 aspirin 81 mg chewable tablet Take 1 tablet by mouth once daily. 0 Lactobacillus acidophilus (FLORAJEN ACIDOPHILUS) 20 billion cell capsule Take 1 capsule by mouth once daily. (Patient not taking: Reported on 07/23/2023) 30 capsule 0 No current facility-administered medications for this visit. Family History Problem Relation Age of Onset other (liver cancer) Mother age 34 Cancer Father age 54 Diabetes Brother Alive age 68 Asthma Other Alive age 41 No Known Problems Maternal Grandmother No Known Problems Maternal Grandfather No Known Problems Paternal Grandmother No Known Problems Paternal Grandfather Objective There were no vitals taken for this visit. - Cardiovascular: Dorsalis pedis and posterior tibial pulses palpable on the right foot, faintly palpable on the left foot; capillary refill time <5 seconds. - Skin: Prior ulceration on the left heel is hallux is essentially healed; no erythema noted; skin is dry on both feet; very superficial thickening of the plantar forefoot along the third, fourth, and fifth metatarsal heads; small superficial bleed noted. - Neurological: Protective sensation absent in the toes of both feet. Assessment AND Plan 1. Diabetic ulcer of toe associated with diabetes mellitus due to underlying condition, with fat layer exposed, unspecified laterality (HCC) (E08.621) - Prior ulceration to the left hallus is now essentiall (more content not included)... [facility] 09-18-2024 History of Present illness Narrative Subjective Russ Estes is a 69-year-old male presenting for follow-up of a foot sore. Foot Sore: - Noted improvement in the sore since last week. - History of callus and ulceration on the right foot, previously managed with a procedure to remove bone and reduce pressure. - Recent sore believed to be caused by picking at dry skin. - Applies lotion to feet daily; recently ran out of Gold [place] and used a generic brand with less effectiveness. - Has Vaseline at home and plans to use it for moisturizing. - is currently using silver gel. did not get the urea cream due to cost. Skin: (+) skin dryness bilateral feet PAST MEDICAL HISTORY Diagnosis Date Aneurysm right common femoral artery. Dr. Ordoñez Colon polyps 08/2018 benign, repeat in 10 years Diabetes mellitus, type II (HCC) Diabetic ulcer of toe of right foot (HCC) DVT (deep venous thrombosis) (HCC) GERD (gastroesophageal reflux disease) Hyperlipidemia Hypertension Obesity PAC (premature atrial contraction) Peripheral arterial disease Restless leg syndrome Snoring Tobacco use Current Outpatient Medications Medication Sig Dispense Refill albuterol HFA (VENTOLIN HFA) 90 mcg/actuation inhaler Inhale 2 puffs as instructed every 4 hours as needed for wheezing/shortness of breath. 18 g 1 urea (CARMOL) 40 % Apply to affected area once daily. 198 g 11 silver 200 mcg/gram gel Apply to affected area once daily. 90 g 1 omeprazole (PRILOSEC) 20 mg capsule Take 1 capsule by mouth once daily. 42 capsule 0 glimepiride (AMARYL) 4 mg tablet Take 2 tablets by mouth daily with breakfast. 180 tablet 1 gabapentin (NEURONTIN) 300 mg capsule Take 3 capsules by mouth daily at bedtime for 90 days. 90 capsule 2 gabapentin (NEURONTIN) 600 mg tablet Take one tablet between 2-3 PM daily 30 tablet 2 amitriptyline (ELAVIL) 25 mg tablet Take 1 tablet by mouth daily at bedtime. 90 tablet 1 metFORMIN (GLUCOPHAGE) 1,000 mg tablet Take 1 tablet by mouth two times a day with meals. . 180 tablet 1 atorvastatin (LIPITOR) 40 mg tablet Take 1 tablet by mouth once daily. For cholesterol. 90 tablet 1 pramipexole (MIRAPEX) 0.25 mg tablet Take 2 tablets by mouth daily at bedtime. 180 tablet 1 losartan (COZAAR) 100 mg tablet Take 1 tablet by mouth once daily. 90 tablet 1 hydroCHLOROthiazide 50 mg tablet Take 1 tablet by mouth once daily. 90 tablet 1 montelukast (SINGULAIR) 10 mg tablet TAKE 1 TABLET BY MOUTH EVERYDAY AT BEDTIME 90 tablet 0 ferrous sulfate 325 mg (65 mg iron) tablet Take 1 tablet by mouth once daily. 90 tablet 0 empagliflozin (JARDIANCE) 25 mg tablet Take 1 tablet by mouth once daily. Take 1 tablet once daily in the morning 90 tablet 1 fluticasone-salmeterol (ADVAIR) 500-50 mcg/dose dsdv INHALE 1 PUFF INSTRUCTED TWO TIMES A DAY 60 Each 4 blood sugar diagnostic (TRUE METRIX GLUCOSE TEST STRIP) test strip Test once daily DX: E11.42, E11.29 100 Strip 3 Blood Pressure Monitor (BLOOD PRESSURE KIT) 1 Each once daily. 1 Kit 0 pentoxifylline ER (TRENTAL) 400 mg CR tablet Take 1 tablet by mouth three times daily with meals. 90 tablet 1 Blood-Glucose Meter (TRUE METRIX AIR GLUCOSE METER) misc 1 Device twice daily. 1 Each 0 Lancets lancets Test once daily DX: E11.42. E11.29 100 Each 3 insulin needles, DISPOSABLE, (BD INSULIN PEN NEEDLE UF) 31 gauge x 5/16 ndle 1 Each once daily. 100 Each 5 aspirin 81 mg chewable tablet Take 1 tablet by mouth once daily. 0 Lactobacillus acidophilus (FLORAJEN ACIDOPHILUS) 20 billion cell capsule Take 1 capsule by mouth once daily. (Patient not taking: Reported on 07/23/2023) 30 capsule 0 No current facility-administered medications for this visit. Family History Problem Relation Age of Onset other (liver cancer) Mother age 34 Cancer Father age 54 Diabetes Brother Alive age 68 Asthma Other Alive age 41 No Known Problems Maternal Grandmother No Known Problems Maternal Grandfather No Known Problems Paternal Grandmother No Known Problems Paternal Grandfather Objective There were no vitals taken for this visit. - Cardiovascular: Dorsalis pedis and posterior tibial pulses palpable on the right foot, faintly palpable on the left foot; capillary refill time <5 seconds. - Skin: Prior ulceration on the left heel is hallux is essentially healed; no erythema noted; skin is dry on both feet; very superficial thickening of the plantar forefoot along the third, fourth, and fifth metatarsal heads; small superficial bleed noted. - Neurological: Protective sensation absent in the toes of both feet. Assessment & Plan 1. Diabetic ulcer of toe associated with diabetes mellitus due to underlying condition, with fat layer exposed, unspecified laterality (HCC) (E08.621) - Prior ulceration to the left hallus is now essentially healed; no erythema noted. Skin is dry on both feet with very superficial thickening of the plantar forefoot along the third, fourth, and fifth metatarsal heads. - continue with silver gel to the hallux for 1-2 more day. - Advised application of Vaseline or Vaseline Intensive Care once daily to maintain skin moisture; may increase to twice daily if dryness persists. - Wear surgical shoe for 3-4 more days, then transition to diabetic shoe. - Follow-up in 3-4 weeks to monitor progress. - dry skin reduced with dremmel Recording using [employer] software for draft documentation of the visit was discussed with the patient/authorized commercial representative; all questions welcomed and answered. Patient/authorized commercial representative agreed to proceed Rao Hillman DPM Patient presents with: Left Great Toe - Established Patient, Follow Up, Diabetic Foot Ulcer Patient presents for 1 week follow up diabetic foot ulcer of left great toe. Was able to get the Silver gel filled, but was unable to get the Urea cream filled as it was still too expensive even with his insurance. Has been wearing the post op shoe with offloading insert. [facility] 09/11/24 documented in this encounter [facility] 09-18-2024 Instructions Rao Hillman - 09/18/2024 8:20 AM EDT - Continue wound care by applying the silver gel you have to the small area of bleeding once daily for the next 1-2 days. - Moisturize your feet with the Vaseline you have at home once a day. If your feet remain dry, increase to twice daily (morning and evening). After applying, put on socks to mimize falling - Wear your surgical shoe through this weekend (about 3-4 more days), then resume wearing your diabetic shoes starting next week. - Return for follow-up in about 3-4 weeks so we can assess how your feet are healing. documented in this encounter [facility] 09-18-2024 Note HNO ID: [id number] Author: FERN AGUILAR, RN Service: ? Author Type: Registered Nurse Type: Progress Notes Filed: 09/18/2024 09:00 Note Text: Patient presents with: Left Great Toe - Established Patient, Follow Up, Diabetic Foot Ulcer Patient presents for 1 week follow up diabetic foot ulcer of left great toe. Was able to get the Silver gel filled, but was unable to get the Urea cream filled as it was still too expensive even with his insurance. Has been wearing the post op shoe with offloading insert. SRUTHI 09/11/24 [facility] 09-18-2024 Note HNO ID: [id number] Author: RAO HILLMAN, ? Service: ? Author Type: Physician Type: Progress Notes Filed: 09/18/2024 07:14 Note Text: Last saw pcp: 09/04/24 Subjective: Patient presents to clinic c/o painful [...] is absent bilateral. There are callus to the plantar aspect of left 4th metatarsal. There is callus to left hallux. This was debrided with 15 blade. Upon debridement, he has two ulcerations, ~6 mm in diameter with serous drainage. No exposed tendon or bone. Ortho: Muscle strength is 5/5 for all pedal groups tested. Ankle joint DF is decreased with the knee extended with no pain or crepitus noted. 1st MPJ ROM is decreased bilateral. Assessment: (E08.621, L97.502) Diabetic ulcer of toe associated with diabetes mellitus due to underlying condition, with fat layer exposed, unspecified laterality (HCC) (primary encounter diagnosis) (B35.1) Onychomycosis (M79.675) Pain in toe of left foot (M79.674) Pain in toe of right foot (L84) Callus of foot Plan: Patient was seen and evaluated. Nails 1-5 bilateral were debrided in length and thickness. Callus of left hallux sharply debrided with 15 blade. He has two ulcerations, both approximately 6 mm in diameter. These were debrided thru dermis with 15 blade and tissue nippers. Bleeding was present and controlled with pressure. I am going to have him treat the wounds with silvergel. Xray was ordered. Will have him follow-up in 1 week Callus reduced to foot with dremmel. Will order carmol 40 Patient was instructed on the continued importance of diabetic foot care along with proper diet and keeping their blood sugar under control to prevent complications. I stressed the importance of avoiding barefoot walking, wearing good shoes and inspection of feet. Patient is to RTC in 1 week Rao Hillman DPM [facility] 09-18-2024 History of Present illness Narrative Last saw pcp: 09/04/24 Subjective: Patient presents to clinic c/o painful [...] is absent bilateral. There are callus to the plantar aspect of left 4th metatarsal. There is callus to left hallux. This was debrided with 15 blade. Upon debridement, he has two ulcerations, ~6 mm in diameter with serous drainage. No exposed tendon or bone. Ortho: Muscle strength is 5/5 for all pedal groups tested. Ankle joint DF is decreased with the knee extended with no pain or crepitus noted. 1st MPJ ROM is decreased bilateral. Assessment: (E08.621, L97.502) Diabetic ulcer of toe associated with diabetes mellitus due to underlying condition, with fat layer exposed, unspecified laterality (HCC) (primary encounter diagnosis) (B35.1) Onychomycosis (M79.675) Pain in toe of left foot (M79.674) Pain in toe of right foot (L84) Callus of foot Plan: Patient was seen and evaluated. Nails 1-5 bilateral were debrided in length and thickness. Callus of left hallux sharply debrided with 15 blade. He has two ulcerations, both approximately 6 mm in diameter. These were debrided thru dermis with 15 blade and tissue nippers. Bleeding was present and controlled with pressure. I am going to have him treat the wounds with silvergel. Xray was ordered. Will have him follow-up in 1 week Callus reduced to foot with dremmel. Will order carmol 40 Patient was instructed on the continued importance of diabetic foot care along with proper diet and keeping their blood sugar under control to prevent complications. I stressed the importance of avoiding barefoot walking, wearing good shoes and inspection of feet. Patient is to RTC in 1 week Rao Hillman DPM Per Dr. Hillman, Joshua wound to left great toe was dressed with antibiotic ointment, non adherent, 2 in roll gauze. Per provider patient was to be give post op shoe with diabetic impax. Patient has post op shoe in good condition for last wound at home. Patient was not provided with post op shoe but was provided with diabetic impax insert , size L, and instructed/educated in its application, wear, and care. All questions were answered, and patient was able to demonstrate competence with the necessary skills to utilize the above equipment. Bekah Flynn LPN AMB ROOMING INTAKE FLOWSHEET DATA Patient presents with: Left Foot - Established Patient, Follow Up, Diabetic Foot Care Right Foot - Established Patient, Follow Up, Diabetic Foot Care Left Great Toe - Diabetic Foot Ulcer, Established Patient, Follow Up, Numbness Patient states wound has been present for a few weeks. documented in this encounter [facility] 09-17-2024 Note HNO ID: [id number] Author: ?, ?, ? Service: ? Author Type: ? Type: Progress Notes Filed: 09/22/2024 10:32 Note Text: [facility] # [id number] , date shipped out 09-17-24 FED EX ONLY Tracking mailout: [id number] Tracking return: [id number] [facility] 09-17-2024 Telephone encounter Note Patient called. Verified name and date of . States he has been using the leftover Silver Gel and has plenty of it available. The [place] 40 Urea Cream did not get picked up by patient due to cost of nearly $100 and that was with his insurance. Patient will follow up with Dr. Hillman tomorrow as scheduled to discuss alternative medication. Sheryl Hendrix LPN [facility] 09-17-2024 Miscellaneous Notes Patient called. Verified name and date of . States he has been using the leftover Silver Gel and has plenty of it available. The [place] 40 Urea Cream did not get picked up by patient due to cost of nearly $100 and that was with his insurance. Patient will follow up with Dr. Hillman tomorrow as scheduled to discuss alternative medication. Sheryl Hendrix LPN Called patient to notify him that silver gel was not available at pharmacy and to use antibiotic ointment per provider. No response. Left VM. Bekah Flynn LPN documented in this encounter [facility] 09-17-2024 Telephone encounter Note Called patient to notify him that silver gel was not available at pharmacy and to use antibiotic ointment per provider. No response. Left VM. Bekah Flynn LPN [facility] Work Phone: 09-15-2024 Telephone encounter Note Prescription Refill Information The patient has been identified by name and date of : Yes Caregiver verified no other encounters exist for this prescription request: Yes Caregiver confirmed with patient/requestor that no other refills are due, in the near future, with this provider at this time: Yes The last office visit in the department: 09/04/24 Does the patient have a future office visit with this provider/department: Yes, 01/07/25 Requested Prescriptions Pending Prescriptions Disp Refills albuterol HFA (VENTOLIN HFA) 90 mcg/actuation inhaler 18 g 1 Sig: Inhale 2 puffs as instructed every 4 hours as needed for wheezing/shortness of breath. Anil Bob LPN September 15, 2024 6:36 PM [facility] 09-15-2024 Miscellaneous Notes Prescription Refill Information The patient has been identified by name and date of : Yes Caregiver verified no other encounters exist for this prescription request: Yes Caregiver confirmed with patient/requestor that no other refills are due, in the near future, with this provider at this time: Yes The last office visit in the department: 09/04/24 Does the patient have a future office visit with this provider/department: Yes, 01/07/25 Requested Prescriptions Pending Prescriptions Disp Refills albuterol HFA (VENTOLIN HFA) 90 mcg/actuation inhaler 18 g 1 Sig: Inhale 2 puffs as instructed every 4 hours as needed for wheezing/shortness of breath. Anil Bob LPN September 15, 2024 6:36 PM documented in this encounter [facility] 09-15-2024 Telephone encounter Note Prescription Refill Information The patient has been identified by name and date of : Yes Caregiver verified no other encounters exist for this prescription request: Yes Caregiver confirmed with patient/requestor that no other refills are due, in the near future, with this provider at this time: Yes The last office visit in the department: 09/04/24 Does the patient have a future office visit with this provider/department: Yes, 01/07/25 Requested Prescriptions Pending Prescriptions Disp Refills glimepiride (AMARYL) 4 mg tablet 180 tablet 1 Sig: Take 2 tablets by mouth daily with breakfast. *Last rx written 09/01/24 #180 with 1 refill. Pt not due for refill. MC message to pt advising of the same. Anil Bob LPN September 15, 2024 6:34 PM [facility] 09-15-2024 Miscellaneous Notes Prescription Refill Information The patient has been identified by name and date of : Yes Caregiver verified no other encounters exist for this prescription request: Yes Caregiver confirmed with patient/requestor that no other refills are due, in the near future, with this provider at this time: Yes The last office visit in the department: 09/04/24 Does the patient have a future office visit with this provider/department: Yes, 01/07/25 Requested Prescriptions Pending Prescriptions Disp Refills glimepiride (AMARYL) 4 mg tablet 180 tablet 1 Sig: Take 2 tablets by mouth daily with breakfast. *Last rx written 09/01/24 #180 with 1 refill. Pt not due for refill. message to pt advising of the same. Anil Bob LPN September 15, 2024 6:34 PM documented in this encounter [facility] 09-11-2024 History of Present illness Narrative Radiology Service Progress Note PATIENT NAME: Joshua Estes DATE OF SERVICE: September 11, 2024 TIME: 10:25 AM PATIENT IDENTITY VERIFICATION COMPLETED USING TWO [...] PATIENT PRESENTS WITH AN IMPLANTABLE OR ATTACHED DIRECTOR OF PRECLINICAL RESEARCH: No RADIOLOGY DEPARTMENT: General X-ray: Exam(s) Completed: Lower Extremity X-Ray(s): Foot, Left and Wt. Bearing PERIPHERAL IV DATA: Not applicable SIGNED BY: RT Gabby(R) September 11, 2024 10:25 AM documented in this encounter [facility] 09-11-2024 Note HNO ID: [id number] Author: AFIA PATIÑO RT(Laurence) Service: Radiology Author Type: Technologist Type: Progress Notes Filed: 09/11/2024 10:33 Note Text: Radiology Service Progress Note PATIENT NAME: Joshua Estes DATE OF SERVICE: September 11, 2024 TIME: 10:25 AM PATIENT IDENTITY VERIFICATION COMPLETED USING TWO [...] PATIENT PRESENTS WITH AN IMPLANTABLE OR ATTACHED DIRECTOR OF PRECLINICAL RESEARCH: No RADIOLOGY DEPARTMENT: General X-ray: Exam(s) Completed: Lower Extremity X-Ray(s): Foot, Left and Wt. Bearing PERIPHERAL IV DATA: Not applicable SIGNED BY: RT Gabby(R) September 11, 2024 10:25 AM [facility] 09-11-2024 Note HNO ID: [id number] Author: BEKAH FLYNN LPN Service: ? Author Type: LICENSED NURSE Type: Progress Notes Filed: 09/18/2024 07:14 Note Text: Per Dr. Hillman Joshua wound to left great toe was dressed with antibiotic ointment, non adherent, 2 in roll gauze. Per provider patient was to be give post op shoe with diabetic impax. Patient has post op shoe in good condition for last wound at home. Patient was not provided with post op shoe but was provided with diabetic impax insert , size L, and instructed/educated in its application, wear, and care. All questions were answered, and patient was able to demonstrate competence with the necessary skills to utilize the above equipment. Bekah Flynn LPN [facility] 09-11-2024 Instructions Rao Hillman - 09/11/2024 8:56 AM EDT - Silver Gel has been prescribed at [facility] - apply to the left big toe ulcer once daily. - [place] 40 Urea Cream has been prescribed at [facility] - apply to callus areas to soften the hard skin. - Wear the provided surgical shoe throughout the day to offload pressure from your left foot. - Keep the ulcer clean and dry; avoid getting it wet in the shower until it heals. - If using a pumice stone or callus file, proceed very gently and avoid going too deep because of reduced sensation. - Obtain the planned foot x-ray and return in two weeks for follow-up to review the results and assess healing. Diabetes Foot Care Instructions When you have [...] (or decreased sensation in your feet) a psychology technician should always cut your toenails. Be Careful [...] Go to your health care provider or psychology technician to treat these conditions. documented in this encounter [facility] 09-11-2024 Note HNO ID: [id number] Author: BEKAH FLYNN LPN Service: ? Author Type: LICENSED NURSE Type: Progress Notes Filed: 09/18/2024 07:14 Note Text: AMB ROOMING INTAKE FLOWSHEET DATA Patient presents with: Left Foot - Established Patient, Follow Up, Diabetic Foot Care Right Foot - Established Patient, Follow Up, Diabetic Foot Care Left Great Toe - Diabetic Foot Ulcer, Established Patient, Follow Up, Numbness Patient states wound has been present for a few weeks. [facility] 09-04-2024 History of Present illness Narrative 09/04/2024 Patient presents with: Follow Up: Facial Cellulitis, patient states symptoms improving with the antibiotic Recording using [employer] software for draft documentation of the visit was discussed with the patient/authorized commercial representative; all questions welcomed and answered. Patient/authorized commercial representative agreed to proceed SUBJECTIVE: This is a 69 year old that is here today for Above Complaints.. Facial Swelling: - Significant improvement in lip swelling; scab on chin treated with topical antibiotic. - Denies fevers or chills. - Currently taking prednisone and Medrol Dosepak; 3 days remaining. - Currently taking doxycycline; 4 days remaining. - Unable to identify any dietary changes that may have triggered the swelling. Chronic Cough: - Persistent cough, occasionally productive of clear sputum. - Denies post-nasal drip. - Chest X-ray in July was normal. - Long-term tobacco use. - Denies taking any medication for reflux. PAST MEDICAL HISTORY Diagnosis Date Aneurysm right [...] breakfast. gabapentin (NEURONTIN) 300 mg capsule Take 3 capsules by mouth daily at bedtime for 90 days. doxycycline hyclate (VIBRAMYCIN) 100 mg capsule Take 1 capsule by mouth two times a day for 7 days. methylPREDNISolone (MEDROL DOSE-PACK) 4 mg Dose-Pack Take as instructed per package. gabapentin (NEURONTIN) 600 mg tablet Take one tablet between 2-3 PM daily amitriptyline (ELAVIL) 25 mg tablet Take 1 tablet by mouth daily at bedtime. metFORMIN (GLUCOPHAGE) 1,000 mg tablet Take 1 tablet by mouth two times a day with meals. . atorvastatin (LIPITOR) 40 mg tablet Take 1 tablet by mouth once daily. For cholesterol. pramipexole (MIRAPEX) 0.25 mg tablet Take 2 tablets by mouth daily at bedtime. losartan (COZAAR) 100 mg tablet Take 1 tablet by mouth once daily. hydroCHLOROthiazide 50 mg tablet Take 1 tablet by mouth once daily. montelukast (SINGULAIR) 10 mg tablet TAKE 1 TABLET BY MOUTH EVERYDAY AT BEDTIME ferrous sulfate 325 mg (65 mg iron) tablet Take 1 tablet by mouth once daily. empagliflozin (JARDIANCE) 25 mg tablet Take 1 tablet by mouth once daily. Take 1 tablet once daily in the morning fluticasone-salmeterol (ADVAIR) 500-50 mcg/dose dsdv INHALE 1 PUFF INSTRUCTED TWO TIMES A DAY albuterol HFA (VENTOLIN HFA) 90 mcg/actuation [...] Take 1 tablet by mouth once daily. omeprazole (PRILOSEC) 20 mg capsule Take 1 capsule by mouth once daily. Lactobacillus acidophilus (FLORAJEN [...] and negative other than HPI. OBJECTIVE: BP 136/82 (BP Site: Left Arm, BP Position: Sitting) Pulse 70 Resp 18 Wt 109.9 kg (242 lb 3.2 oz) SpO2 94% BMI 32.85 kg/m . Vital signs reviewed by this provider. GENERAL: NAD, alert and oriented. SKIN: Unremarkable, no rash or skin lesions. Small scab noted under left lower lip- no surrounding erythema, excessive warmth, tenderness or drainage Lower lip swelling has resolved Depression Screening Never done Anxiety Screening Never done BP Controlled (<130/80) due on 07/04/2022 Advance Directive Discussion Never done Urine Albumin:Creatinine Ratio due on 08/22/2024 LDL Cholesterol due on 08/22/2024 Covid-19 Vaccine(1 - season) due on 01/07/2025 RSV Vaccine(1 - Risk 60-74 years 1-dose series) due on 07/08/2025 Shingrix Vaccine(1 of 2) due on 07/08/2025 Influenza Vaccine(Season Ended) due on 12/01/2024 Diabetic Foot Exam due on 01/07/2025 HbA1C due on 01/07/2025 Dilated Retinal Exam due on 07/26/2025 Annual PCP Team Chronic Disease Visit due on 09/01/2025 Colorectal Cancer Screening due on 09/12/2028 DTaP,Tdap,Td Vaccine(2 - Td or Tdap) due on 11/22/2028 Abdominal Aortic Aneurysm Screening Completed Hepatitis C Screening Completed Pneumococcal Vaccine: 50+ Completed 1. Facial cellulitis (L03.211) - Significant improvement noted; lip swelling has markedly decreased, and scab on the chin is healing. - Currently on Medrol Dosepak with 3 days remaining, and doxycycline with 4 days remaining. - Advised to complete all medications as prescribed. - Instructed to monitor for any recurrence of swelling, drainage, or pus; advised to return if these symptoms occur. - Healing may be prolonged due to diabetes, but facial areas generally heal faster due to good blood supply. 2. Chronic cough (R05.3) - Persistent cough likely related to tobacco use. - Previous chest X-ray in July was normal. - Lungs auscultated; clear breath sounds noted. - Discussed potential reflux-related etiology; initiated omeprazole trial for 6 weeks to assess for improvement. 3. Tobacco use (Z72.0) - Advised that chronic cough is likely related to smoking. - Discussed benefits of smoking cessation. Audrey Podlogar, 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 Prescription instructions reviewed with patient as applicable. Patient advised if symptoms do not improve or if symptoms worsen sooner, to contact their primary care physician. Potential red flag symptoms discussed with the patient. Reviewed appropriate action plan to take if red flag symptoms occur. Patient agreeable to treatment plan. I spent a total of 20 minutes on the date of the service which included preparing to see the patient, [id number] patient care, completing clinical documentation, obtaining and/or reviewing separately obtained history, performing a medically appropriate examination, counseling and educating the patient/family/caregiver, and ordering medications, tests, or procedures. documented in this encounter [facility] 09-04-2024 Note HNO ID: [id number] Author: AUDREY PACKER APRN.EDENILSON Service: ? Author Type: Nurse Practitioner Type: Progress Notes Filed: 09/04/2024 08:15 Note Text: 09/04/2024 Patient presents with: Follow Up: Facial Cellulitis, patient states symptoms improving with the antibiotic Recording using [employer] software for draft documentation of the visit was discussed with the patient/authorized commercial representative; all questions welcomed and answered. Patient/authorized commercial representative agreed to proceed SUBJECTIVE: This is a 69 year old that is here today for Above Complaints.. Facial Swelling: - Significant improvement in lip swelling; scab on chin treated with topical antibiotic. - Denies fevers or chills. - Currently taking prednisone and Medrol Dosepak; 3 days remaining. - Currently taking doxycycline; 4 days remaining. - Unable to identify any dietary changes that may have triggered the swelling. Chronic Cough: - Persistent cough, occasionally productive of clear sputum. - Denies post-nasal drip. - Chest X-ray in July was normal. - Long-term tobacco use. - Denies taking any medication for reflux. PAST MEDICAL HISTORY Diagnosis Date Aneurysm right [...] breakfast. gabapentin (NEURONTIN) 300 mg capsule Take 3 capsules by mouth daily at bedtime for 90 days. doxycycline hyclate (VIBRAMYCIN) 100 mg capsule Take 1 capsule by mouth two times a day for 7 days. methylPREDNISolone (MEDROL DOSE-PACK) 4 mg Dose-Pack Take as instructed per package. gabapentin (NEURONTIN) 600 mg tablet Take one tablet between 2-3 PM daily amitriptyline (ELAVIL) 25 mg tablet Take 1 tablet by mouth daily at bedtime. metFORMIN (GLUCOPHAGE) 1,000 mg tablet Take 1 tablet by mouth two times a day with meals. . atorvastatin (LIPITOR) 40 mg tablet Take 1 tablet by mouth once daily. For cholesterol. pramipexole (MIRAPEX) 0.25 mg tablet Take 2 tablets by mouth daily at bedtime. losartan (COZAAR) 100 mg tablet Take 1 tablet by mouth once daily. hydroCHLOROthiazide 50 mg tablet Take 1 tablet by mouth once daily. montelukast (SINGULAIR) 10 mg tablet TAKE 1 TABLET BY MOUTH EVERYDAY AT BEDTIME ferrous sulfate 325 mg (65 mg iron) tablet Take 1 tablet by mouth once daily. empagliflozin (JARDIANCE) 25 mg tablet Take 1 tablet by mouth once daily. Take 1 tablet once daily in the morning fluticasone-salmeterol (ADVAIR) 500-50 mcg/dose dsdv INHALE 1 PUFF INSTRUCTED TWO TIMES A DAY albuterol HFA (VENTOLIN HFA) 90 mcg/actuation [...] Take 1 tablet by mouth once daily. omeprazole (PRILOSEC) 20 mg capsule Take 1 capsule by mouth once daily. Lactobacillus acidophilus (FLORAJEN [...] and negative other than HPI. OBJECTIVE: BP 136/82 (BP Site: Left Arm, BP Position: Sitting) Pulse 70 Resp 18 Wt 109.9 kg (242 lb 3.2 oz) SpO2 94% BMI 32.85 kg/m? . Vital signs reviewed by this provider. GENERAL: NAD, alert and oriented. SKIN: Unremarkable, no rash or skin lesions. Small scab noted under left lower lip- no surrounding erythema, excessive warmth, tenderness or drainage Lower lip swelling has resolved Depres (more content not included)... [facility] 09-01-2024 Note HNO ID: [id number] Author: AUDREY PACKER APRN.PRESSED OR BLOWN GLASS WORKER Service: ? Author Type: Nurse Practitioner Type: Progress Notes Filed: 09/01/2024 13:01 Note Text: 09/01/2024 Patient presents with: Derm Problem: Area to bottom of chin, lip is swollen. X2 days. Recording using [employer] software for draft documentation of the visit was discussed with the patient/authorized commercial representative; all questions welcomed and answered. Patient/authorized commercial representative agreed to proceed SUBJECTIVE: This is a 69 year old that is here today for Above Complaints. Lip and Chin Lesion: - Woke up with a swollen lower lip on Sunday morning, followed by a red spot on the chin on Sunday morning. - Lesion on the chin began draining a clear liquid last night. - Denies known trauma or insect bites. - Experiencing pain extending into the jaw and inside the mouth. - No issues with swallowing or breathing. - Denies fevers or chills. - Recent use of Aleve on Sunday. - Long-term use of Losartan. PAST MEDICAL HISTORY Diagnosis Date Aneurysm right [...] allergies. MEDICATIONS Current Outpatient Medications Medication Sig doxycycline hyclate (VIBRAMYCIN) 100 mg capsule Take 1 capsule by mouth two times a day for 7 days. methylPREDNISolone (MEDROL DOSE-PACK) 4 mg Dose-Pack Take as instructed per package. gabapentin (NEURONTIN) 600 mg tablet Take one tablet between 2-3 PM daily amitriptyline (ELAVIL) 25 mg tablet Take 1 tablet by mouth daily at bedtime. metFORMIN (GLUCOPHAGE) 1,000 mg tablet Take 1 tablet by mouth two times a day with meals. . atorvastatin (LIPITOR) 40 mg tablet Take 1 tablet by mouth once daily. For cholesterol. pramipexole (MIRAPEX) 0.25 mg tablet Take 2 tablets by mouth daily at bedtime. losartan (COZAAR) 100 mg tablet Take 1 tablet by mouth once daily. hydroCHLOROthiazide 50 mg tablet Take 1 tablet by mouth once daily. montelukast (SINGULAIR) 10 mg tablet TAKE 1 TABLET BY MOUTH EVERYDAY AT BEDTIME ferrous sulfate 325 mg (65 mg iron) tablet Take 1 tablet by mouth once daily. gabapentin (NEURONTIN) 300 mg capsule Take 3 capsules by mouth daily at bedtime for 90 days. empagliflozin (JARDIANCE) 25 mg tablet Take 1 tablet by mouth once daily. Take 1 tablet once daily in the morning fluticasone-salmeterol (ADVAIR) 500-50 mcg/dose dsdv INHALE 1 PUFF INSTRUCTED TWO TIMES A DAY glimepiride (AMARYL) 4 mg tablet Take 2 tablets by mouth daily with breakfast. albuterol HFA (VENTOLIN HFA) 90 mcg/actuation inhaler [...] and negative other than HPI. OBJECTIVE: BP 144/78 Pulse 94 Temp 36.9 ?C (98.4 ?F) Resp 20 Wt 111.8 kg (246 lb 6.4 oz) BMI 33.42 kg/m? . Vital signs reviewed by this provider. GENERAL: NAD, alert and oriented. SKIN: Erythematous, indurated area below the lower lip without active drainage with erythema extending into chin. Swelling to lower lip observed with TTP. No other rashes or skin lesions observed. OROPHARYNX: Lips swollen, mucosa and tongue normal, no teeth present. No oral lesions noted. NECK: Supple, no lymphadenopathy LUNGS: Clear to auscultation bilaterally, no wheezes/rhonchi/rales. 1. Facial cellulitis (L03.211 (more content not included)... [facility] 09-01-2024 History of Present illness Narrative 09/01/2024 Patient presents with: Derm Problem: Area to bottom of chin, lip is swollen. X2 days. Recording using [employer] software for draft documentation of the visit was discussed with the patient/authorized commercial representative; all questions welcomed and answered. Patient/authorized commercial representative agreed to proceed SUBJECTIVE: This is a 69 year old that is here today for Above Complaints. Lip and Chin Lesion: - Woke up with a swollen lower lip on Sunday morning, followed by a red spot on the chin on Sunday morning. - Lesion on the chin began draining a clear liquid last night. - Denies known trauma or insect bites. - Experiencing pain extending into the jaw and inside the mouth. - No issues with swallowing or breathing. - Denies fevers or chills. - Recent use of Aleve on Sunday. - Long-term use of Losartan. PAST MEDICAL HISTORY Diagnosis Date Aneurysm right [...] allergies. MEDICATIONS Current Outpatient Medications Medication Sig doxycycline hyclate (VIBRAMYCIN) 100 mg capsule Take 1 capsule by mouth two times a day for 7 days. methylPREDNISolone (MEDROL DOSE-PACK) 4 mg Dose-Pack Take as instructed per package. gabapentin (NEURONTIN) 600 mg tablet Take one tablet between 2-3 PM daily amitriptyline (ELAVIL) 25 mg tablet Take 1 tablet by mouth daily at bedtime. metFORMIN (GLUCOPHAGE) 1,000 mg tablet Take 1 tablet by mouth two times a day with meals. . atorvastatin (LIPITOR) 40 mg tablet Take 1 tablet by mouth once daily. For cholesterol. pramipexole (MIRAPEX) 0.25 mg tablet Take 2 tablets by mouth daily at bedtime. losartan (COZAAR) 100 mg tablet Take 1 tablet by mouth once daily. hydroCHLOROthiazide 50 mg tablet Take 1 tablet by mouth once daily. montelukast (SINGULAIR) 10 mg tablet TAKE 1 TABLET BY MOUTH EVERYDAY AT BEDTIME ferrous sulfate 325 mg (65 mg iron) tablet Take 1 tablet by mouth once daily. gabapentin (NEURONTIN) 300 mg capsule Take 3 capsules by mouth daily at bedtime for 90 days. empagliflozin (JARDIANCE) 25 mg tablet Take 1 tablet by mouth once daily. Take 1 tablet once daily in the morning fluticasone-salmeterol (ADVAIR) 500-50 mcg/dose dsdv INHALE 1 PUFF INSTRUCTED TWO TIMES A DAY glimepiride (AMARYL) 4 mg tablet Take 2 tablets by mouth daily with breakfast. albuterol HFA (VENTOLIN HFA) 90 mcg/actuation inhaler [...] and negative other than HPI. OBJECTIVE: BP 144/78 Pulse 94 Temp 36.9 C (98.4 F) Resp 20 Wt 111.8 kg (246 lb 6.4 oz) BMI 33.42 kg/m . Vital signs reviewed by this provider. GENERAL: NAD, alert and oriented. SKIN: Erythematous, indurated area below the lower lip without active drainage with erythema extending into chin. Swelling to lower lip observed with TTP. No other rashes or skin lesions observed. OROPHARYNX: Lips swollen, mucosa and tongue normal, no teeth present. No oral lesions noted. NECK: Supple, no lymphadenopathy LUNGS: Clear to auscultation bilaterally, no wheezes/rhonchi/rales. 1. Facial cellulitis (L03.211) - Onset of swelling and erythema on the lower lip began on Sunday, with subsequent development of a scab and serous drainage on Sunday. No fevers or chills reported. Examination reveals induration and tenderness on the lower lip, with no evidence of dental issues or intraoral lesions. - Differential diagnosis includes bacterial infection, possibly MRSA, and angioedema secondary to medication. - Initiated doxycycline BID for 7 days to cover potential MRSA infection. - Prescribed a prednisone taper to address potential inflammatory component. - Advised application of triple antibiotic ointment to the affected area. - Ordered CBC to assess for leukocytosis. - Patient instructed to monitor for signs of worsening edema, dysphagia, or dyspnea, and to seek emergency care if these symptoms occur. - Follow-up scheduled in 2 days to evaluate response to treatment. Audrey Packer APRN.PRESSED OR BLOWN GLASS WORKER Prescription instructions reviewed with patient as applicable. Patient advised if symptoms do not improve or if symptoms worsen sooner, to contact their primary care physician. Potential red flag symptoms discussed with the patient. Reviewed appropriate action plan to take if red flag symptoms occur. Patient agreeable to treatment plan. Medical Decision Making: Problems: Moderate: Acute illness with systemic symptoms Data: Unique test(s) ordered: 3+ Risk: Moderate: Drug management Medical Decision Making Level: 4 - Moderate documented in this encounter [facility] 08-28-2024 Note HNO ID: [id number] Author: RELL TIDWELL APRN.EDENILSON Service: ? Author Type: Nurse Practitioner Type: Progress Notes Filed: 09/22/2024 10:32 Note Text: August 28, 2024 Standing PSG Orders signed in the last 90 days None Future PSG Orders signed in the last 90 days Ordered Auth. provider HOME SLEEP APNEA TEST (HSAT) [[id number]] 08/19/24 Tobi Sorto MD Assoc. diagnoses: Snoring [R06.83], Daytime somnolence [R40.0] Q: Indications: A: Obstructive sleep apnea Q: STOP-BANG conditions - Select All That Apply: A: GENDER = male A2: AGE > 50 A3: high blood PRESSURE A4: SNORING that is loud or disruptive Q: Current use of supplemental oxygen during sleep period?: A: No All Prior Sleep Studies (past 365 days) 08/19/2024 13:02 Sleep Studies HOME SLEEP APNEA TEST (HSAT) HOME SLEEP APNEA TEST (HSAT) Order Status: Ordered, Future Expires: 08/19/25 BMI Readings from Last 2 Encounters: 08/19/24 : 33.42 kg/m? 07/16/24 : 34.18 kg/m? PAST MEDICAL HISTORY Diagnosis Date Aneurysm right common femoral artery. Dr. Ordoñez Colon polyps 08/2018 benign, repeat in 10 years Diabetes mellitus, type II (HCC) Diabetic ulcer of toe of right foot (HCC) DVT (deep venous thrombosis) (HCC) GERD (gastroesophageal reflux disease) Hyperlipidemia Hypertension Obesity PAC (premature atrial contraction) Peripheral arterial disease Restless leg syndrome Snoring Tobacco use The [...] Test (HSAT) Special instructions: None-follow laboratory protocol Yasmin Nigel Sleep Medicine Staff Note: I have read the above protocol, edited as needed, and agree to the plan. Rell Tidwell APRN.EDENILSON 3:21 PM, 08/28/2024 [facility] 08-27-2024 Telephone encounter Note PDMP website checked and validated. All prescriptions have been APPROPRIATELY filled. No suspicious activity was identified. 08/27/2024 by Audrey Packer APRN.PRESSED OR BLOWN GLASS WORKER [facility] 08-27-2024 Miscellaneous Notes PDMP website checked and validated. All prescriptions have been APPROPRIATELY filled. No suspicious activity was identified. 08/27/2024 by Audrey Packer APRN.EDENILSON Prescription Refill Information The patient has been identified by name and date of : Yes Caregiver verified no other encounters exist for this prescription request: Yes Caregiver confirmed with patient/requestor that no other refills are due, in the near future, with this provider at this time: Yes The last office visit in the department: 08/19/2024 Does the patient have a future office visit with this provider/department: Yes Requested Prescriptions Pending Prescriptions Disp Refills gabapentin (NEURONTIN) 600 mg tablet 30 tablet 2 Sig: Take one tablet between 2-3 PM daily Diana Floyd MA August 27, 2024 4:56 PM documented in this encounter [facility] 08-27-2024 Telephone encounter Note Prescription Refill Information The patient has been identified by name and date of : Yes Caregiver verified no other encounters exist for this prescription request: Yes Caregiver confirmed with patient/requestor that no other refills are due, in the near future, with this provider at this time: Yes The last office visit in the department: 08/19/2024 Does the patient have a future office visit with this provider/department: Yes Requested Prescriptions Pending Prescriptions Disp Refills gabapentin (NEURONTIN) 600 mg tablet 30 tablet 2 Sig: Take one tablet between 2-3 PM daily Diana Floyd MA August 27, 2024 4:56 PM [facility] 08-26-2024 Note HNO ID: [id number] Author: ?, ?, ? Service: ? Author Type: ? Type: Progress Notes Filed: 09/22/2024 10:32 Note Text: CURRENTLY UNAUTHORIZED- CSRT (PERM) VERIFIED 08/26-[facility] 08-26-2024 Note HNO ID: [id number] Author: ?, ?, ? Service: ? Author Type: ? Type: Progress Notes Filed: 09/22/2024 10:32 Note Text: August 26, 2024 An order has been received for Home Sleep Apnea Test (HSAT) from Tobi Gibson MD, a [facility] Staff. Visit prep complete. Comments :No The sleep study is scheduled for 09/17/24. Insurance: Payor: [employer] MEDICARE / Plan: [employer] HMO / Product Type: HMO / Payer/Plan Subscr Sex Relation Sub. Ins. ID Effective Group Num 1. DEVOTED MEDIC* JOSHUA ESTES 1955 Male Self [id number] 12[birth year]23 [id number] [facility] 08-19-2024 Note HNO ID: [id number] Author: TOBI SORTO MD Service: ? Author Type: Physician Type: Progress Notes Filed: 08/19/2024 15:17 Note Text: Chief Complaint Patient presents with: Sleep Problem: Discuss failed sleep medications Recording using [employer] software for draft documentation of the visit was discussed with the patient/authorized commercial representative; all questions welcomed and answered. Patient/authorized commercial representative agreed to proceed HPI Joshua Estes is a 69 year old male who presents here today for Above Complaints. Insomnia: - Persistent insomnia despite trials of melatonin, trazodone, and amitriptyline. - Currently taking amitriptyline 50 mg; previously on 25 mg, which helped with sleep onset but not maintenance. - Wakes up every 2 hours during the night, regardless of medication dosage. - Denies nocturia, pain, depression, or anxiety contributing to awakenings. - Completed a home sleep apnea test in March, but results were invalid; did not reschedule. - Reports loud snoring; denies observed apneic episodes or gasping for air. - Feels tired throughout the day. - Has tried various methods to improve sleep, including eliminating caffeine, adjusting room temperature, and playing piano before bed. - Sleeps on left side initially, then switches to right side; reports tossing and turning during the night. - Denies alcohol consumption. Past medical history, appointments, medications, allergies reviewed. [...] REVSC OPN/PRG FEM/POP W/ANGIOPLASTY UNI Right 09/25/2016 NPS of R fem-pop bypass graft [facility] [...] on File Prior to Visit Medication Sig metFORMIN (GLUCOPHAGE) 1,000 mg tablet Take 1 tablet by mouth two times a day with meals. . atorvastatin (LIPITOR) 40 mg tablet Take 1 tablet by mouth once daily. For cholesterol. pramipexole (MIRAPEX) 0.25 mg tablet Take 2 tablets by mouth daily at bedtime. losartan (COZAAR) 100 mg tablet Take 1 tablet by mouth once daily. hydroCHLOROthiazide 50 mg tablet Take 1 tablet by mouth once daily. amitriptyline (ELAVIL) 50 mg tablet Take 1 tablet by mouth daily at bedtime. montelukast (SINGULAIR) 10 mg tablet TAKE 1 TABLET BY MOUTH EVERYDAY AT BEDTIME ferrous sulfate 325 mg (65 mg iron) tablet Take 1 tablet by mouth once daily. gabapentin (NEURONTIN) 300 mg capsule Take 3 capsules by mouth daily at bedtime for 90 days. gabapentin (NEURONTIN) 600 mg tablet Take one tablet between 2-3 PM daily empagliflozin (JARDIANCE) 25 mg tablet Take 1 tablet by mouth once daily. Take 1 tablet once daily in the morning fluticasone-salmeterol (ADVAIR) 500-50 mcg/dose dsdv INHALE 1 PUFF INSTRUCTED TWO TIMES A DAY glimepiride (AMARYL) 4 mg tablet Take 2 tablets by mouth daily with breakfast. albuterol HFA (VENTOLIN HFA) 90 mcg/actuation inhaler [...] with meals. Blood-Glucose Meter (TRUE METRIX AIR GLUCOS (more content not included)... [facility] 08-18-2024 Telephone encounter Note Pt called and is notified of providers results and instructions. Pt voices understanding. Pt scheduled tomorrow with Dr Sorto at 1240 pm. Fern Stephen RN [facility] 08-18-2024 Miscellaneous Notes Pt called and is notified of providers results and instructions. Pt voices understanding. Pt scheduled tomorrow with Dr Sorto at 1240 pm. Fern Stephen RN Recommend OV to discuss further since he has failed multiple rx. Patient calls with update since starting amitriptyline 50 mg at bedtime for sleep. Patient reports that he has noticed no change in his sleep pattern. He is still waking up every 2 hours like clockwork and still has no reason to be waking up every 2 hours. Patient not taking anything else to help with sleep. Patient reports that he has previously tried melatonin and benadryl OTC with no relief as well. Meaghan Fischer RN documented in this encounter [facility] 08-18-2024 Telephone encounter Note Recommend OV to discuss further since he has failed multiple rx. [facility] 08-18-2024 Telephone encounter Note *Last rx written for losartan 100mg on 08/14/24 #90 with 1 refill. Sent to [facility]. Pt is not due for refill. *Last rx written for hydrochlorothiazide 50mg on 08/14/24 #90 with 1 refill. Sent to [facility]. Pt is not due for refill. Anil Bob LPN [facility] 08-18-2024 Miscellaneous Notes *Last rx written for losartan 100mg on 08/14/24 #90 with 1 refill. Sent to [facility]. Pt is not due for refill. *Last rx written for hydrochlorothiazide 50mg on 08/14/24 #90 with 1 refill. Sent to [facility]. Pt is not due for refill. Anil Bob LPN Patient has been identified by name and date of : Yes Patient phones for refill(s): Requested Prescriptions Pending Prescriptions Disp Refills metFORMIN (GLUCOPHAGE) 1,000 mg tablet 180 tablet 1 Sig: Take 1 tablet by mouth two times a day with meals. . losartan (COZAAR) 100 mg tablet 90 tablet 1 Sig: Take 1 tablet by mouth once daily. hydroCHLOROthiazide 50 mg tablet 90 tablet 1 Sig: Take 1 tablet by mouth once daily. Date of last office visit in primary care: 07/16/2024 Date of next office visit in primary care: 01/07/2025 Please advise. Thank you. Audrey Bacon. documented in this encounter [facility] 08-18-2024 Telephone encounter Note Patient calls with update since starting amitriptyline 50 mg at bedtime for sleep. Patient reports that he has noticed no change in his sleep pattern. He is still waking up every 2 hours like clockwork and still has no reason to be waking up every 2 hours. Patient not taking anything else to help with sleep. Patient reports that he has previously tried melatonin and benadryl OTC with no relief as well. Meaghan Fischer RN [facility] 08-18-2024 Telephone encounter Note Patient has been identified by name and date of : Yes Patient phones for refill(s): Requested Prescriptions Pending Prescriptions Disp Refills metFORMIN (GLUCOPHAGE) 1,000 mg tablet 180 tablet 1 Sig: Take 1 tablet by mouth two times a day with meals. . losartan (COZAAR) 100 mg tablet 90 tablet 1 Sig: Take 1 tablet by mouth once daily. hydroCHLOROthiazide 50 mg tablet 90 tablet 1 Sig: Take 1 tablet by mouth once daily. Date of last office visit in primary care: 07/16/2024 Date of next office visit in primary care: 01/07/2025 Please advise. Thank you. Audrey Bacon. [facility] 08-14-2024 Telephone encounter Note Patient has been identified by name and date of : Yes, Patient phones for refill(s): Requested Prescriptions Pending Prescriptions Disp Refills atorvastatin (LIPITOR) 40 mg tablet 90 tablet 1 Sig: Take 1 tablet by mouth once daily. For cholesterol. pramipexole (MIRAPEX) 0.25 mg tablet 180 tablet 0 Sig: Take 2 tablets by mouth daily at bedtime. losartan (COZAAR) 100 mg tablet 90 tablet 1 Sig: Take 1 tablet by mouth once daily. hydroCHLOROthiazide 50 mg tablet 90 tablet 1 Sig: Take 1 tablet by mouth once daily. Date of last office visit in primary care: 07/16/2024 Date of next office visit in primary care: 01/07/2025 Please advise. Thank you. Audrey Bacon. [facility] 08-14-2024 Miscellaneous Notes Patient has been identified by name and date of : Yes, Patient phones for refill(s): Requested Prescriptions Pending Prescriptions Disp Refills atorvastatin (LIPITOR) 40 mg tablet 90 tablet 1 Sig: Take 1 tablet by mouth once daily. For cholesterol. pramipexole (MIRAPEX) 0.25 mg tablet 180 tablet 0 Sig: Take 2 tablets by mouth daily at bedtime. losartan (COZAAR) 100 mg tablet 90 tablet 1 Sig: Take 1 tablet by mouth once daily. hydroCHLOROthiazide 50 mg tablet 90 tablet 1 Sig: Take 1 tablet by mouth once daily. Date of last office visit in primary care: 07/16/2024 Date of next office visit in primary care: 01/07/2025 Please advise. Thank you. Audrey Bacon. documented in this encounter [facility] 08-04-2024 Telephone encounter Note Patient's request for medication is as follows: Requested Prescriptions Pending Prescriptions Disp Refills montelukast (SINGULAIR) 10 mg tablet [Pharmacy Med Name: MONTELUKAST SOD 10 MG TABLET] 90 tablet 0 Sig: TAKE 1 TABLET BY MOUTH EVERYDAY AT BEDTIME SRUTHI: 09/17/23 Please approve the above prescription(s) to electronically send to pharmacy. Karen Vera LPN [facility] 08-04-2024 Miscellaneous Notes Patient's request for medication is as follows: Requested Prescriptions Pending Prescriptions Disp Refills montelukast (SINGULAIR) 10 mg tablet [Pharmacy Med Name: MONTELUKAST SOD 10 MG TABLET] 90 tablet 0 Sig: TAKE 1 TABLET BY MOUTH EVERYDAY AT BEDTIME SRUTHI: 09/17/23 Please approve the above prescription(s) to electronically send to pharmacy. Karen Vera LPN documented in this encounter [facility] 07-21-2024 Telephone encounter Note Pt called and is notified of providers results and instructions. Pt voices understanding. Fern Stephen RN [facility] 07-21-2024 Miscellaneous Notes Pt called and is notified of providers results and instructions. Pt voices understanding. Fern Stephen RN Stop trazodone. Start 10 mg amitriptyline qhs instead to help with sleep. This is an alternative antidepressant. Call in 1-2 weeks with update on sleep or sooner with side effects. Patient calls and states that he was just recently started on Trazodone. Patient reports that Trazodone has not helped him with sleep. Patient has been taking 100 mg x 1 week and has not noticed it making any difference in helping him sleep. Please review and advise, Amanda Hammer RN documented in this encounter [facility] 07-21-2024 Telephone encounter Note Stop trazodone. Start 10 mg amitriptyline qhs instead to help with sleep. This is an alternative antidepressant. Call in 1-2 weeks with update on sleep or sooner with side effects. [facility] 07-21-2024 Telephone encounter Note Patient calls and states that he was just recently started on Trazodone. Patient reports that Trazodone has not helped him with sleep. Patient has been taking 100 mg x 1 week and has not noticed it making any difference in helping him sleep. Please review and advise, Amanda Hammer RN [facility] 07-16-2024 History of Present illness Narrative Radiology [...] PATIENT PRESENTS WITH AN IMPLANTABLE OR ATTACHED DIRECTOR OF PRECLINICAL RESEARCH: No RADIOLOGY DEPARTMENT: General X-ray: Exam(s) Completed: Chest X-Ray PERIPHERAL IV DATA: Not applicable SIGNED BY: Titi Campbell July 16, 2024 5:22 PM documented in this encounter [facility] 07-16-2024 Note HNO ID: [id number] Author: SUSAN QUARLES Tech Service: ? Author [...] PATIENT PRESENTS WITH AN IMPLANTABLE OR ATTACHED DIRECTOR OF PRECLINICAL RESEARCH: No RADIOLOGY DEPARTMENT: General X-ray: Exam(s) Completed: Chest X-Ray PERIPHERAL IV DATA: Not applicable SIGNED BY: Titi Campbell July 16, 2024 5:22 PM [facility] 07-16-2024 Note HNO ID: [id number] Author: AUDREY PACKER APRN.PRESSED OR BLOWN GLASS WORKER Service: ? Author Type: Nurse Practitioner Type: [...] Covid-19 Vaccine( - season) due on 01/07/2025 RSV Vaccine(1 - Risk 60-74 years 1-dose series) due on 07/08/2025 Shingrix Vaccine(1 of 2) due on 07/08/2025 Urine Albumin:Creatinine Ratio due on 08/22/2024 LDL Cholesterol due on 08/22/2024 Diabetic Foot Exam due on 01/07/2025 HbA1C due on 01/07/2025 Annual PCP Team Chronic Disease Visit due on 07/16/2025 Colorectal Cancer (more content not included)... [facility] 07-16-2024 History of Present illness Narrative 07/16/2024 Patient presents with: Edema: Bilateral lower extremity edema x2 days SUBJECTIVE: This is a 69 year old that is here today for Above Complaints.. Noticed South bilateral legs swollen when he got up. [...] Vaccine(1) due on 09/29/2024 Covid-19 Vaccine(1 - season) due on 01/07/2025 RSV Vaccine(1 - [...] ER with red flag symptoms Audrey Packer APRN.PRESSED OR BLOWN GLASS WORKER Prescription instructions reviewed with patient as applicable. [...] which included preparing to see the patient, [id number] patient care, completing clinical documentation, obtaining and/or reviewing separately obtained history, performing a medically appropriate examination, counseling and educating the patient/family/caregiver, and ordering medications, tests, or procedures. documented in this encounter [facility] 07-16-2024 Telephone encounter Note Triage protocol advised: [...] or SOB Protocols used: Leg Swelling and [id number] [facility] 07-16-2024 Miscellaneous Notes Triage protocol advised: See [...] or SOB Protocols used: Leg Swelling and [id number] documented in this encounter [facility] 07-16-2024 Telephone encounter Note Updated patient with results and he voiced understanding. Dolores Jama LPN [facility] 07-16-2024 Miscellaneous Notes Updated patient with results and he voiced understanding. Dolores Jama LPN ----- Message from Tobi Sorto MD sent at 07/16/2024 7:04 AM EDT ----- Normal kidney ultrasound. Recommend low sodium diet <2,000 mg per day, avoidance of NSAIDs, and increased water intake. documented in this encounter [facility] 07-16-2024 Telephone encounter Note ----- Message from Tobi Sorto MD sent at 07/16/2024 7:04 AM EDT ----- Normal kidney ultrasound. Recommend low sodium diet <2,000 mg per day, avoidance of NSAIDs, and increased water intake. [facility] 07-14-2024 Telephone encounter Note Patient returned call and went over notes below from Dr Sorto with understanding. [facility] 07-14-2024 Miscellaneous Notes Patient returned call and [...] kidney/bladder US results. documented in this encounter [facility] 07-14-2024 Telephone encounter Note Was speaking with patient and line went . Attempted calling patient back but got his VM. Message left for him to return call. Dolroes Jama LPN [facility] 07-14-2024 Telephone encounter Note Increase trazodone dose to 2 tablets (100 mg) before bed and let me know in about 1 week if it is not helping. [facility] 07-14-2024 Telephone encounter Note Pt notified of results and provider message. Pt voiced understanding. Pt reports that trazodone 50 mg is not helping with sleep problem at all. Pt is asking what else he could try. Please review and advise. Karen Rush LPN [facility] 07-14-2024 Telephone encounter Note Telephone call placed to patient. Message left to call office back for update. Marleny Raygoza LPN [facility] 07-14-2024 History of Present illness Narrative Radiology [...] PATIENT PRESENTS WITH AN IMPLANTABLE OR ATTACHED DIRECTOR OF PRECLINICAL RESEARCH: No RADIOLOGY DEPARTMENT: Ultrasound PERIPHERAL IV DATA: Not applicable SIGNED BY: Khadijah Dalton RDMS July 14, 2024 11:27 AM documented in this encounter [facility] 07-14-2024 Note HNO ID: [id number] Author: KHADIJAH DALTON RDMS Service: ? Author Type: Loader Magazine Grinder Type: Progress Notes Filed: 07/14/2024 11:27 Note [...] PATIENT PRESENTS WITH AN IMPLANTABLE OR ATTACHED DIRECTOR OF PRECLINICAL RESEARCH: No RADIOLOGY DEPARTMENT: Ultrasound PERIPHERAL IV DATA: Not applicable SIGNED BY: Khadijah Dalton RDMS July 14, 2024 11:27 AM [facility] 07-14-2024 Telephone encounter Note ----- Message from Tobi Sorto MD sent at 07/14/2024 7:03 AM EDT ----- UA positive for protein in the urine as well as sugar. Negative for infection. Work on low carb diet and regular exercise for history of diabetes. Awaiting kidney/bladder US results. [facility] 07-09-2024 Telephone encounter Note Phoned patient and reviewed provider's message with him. Patient voiced understanding. Dolores Jama LPN [facility] 07-09-2024 Miscellaneous Notes Phoned patient and reviewed [...] for urine testing. documented in this encounter [facility] 07-09-2024 Telephone encounter Note ----- Message from [...] this week or next for urine testing. [facility] 07-08-2024 Note HNO ID: [id number] Author: TOBI SORTO MD Service: ? Author [...] REVSC OPN/PRG FEM/POP W/ANGIOPLASTY UNI Right 09/25/2016 NPS of R fem-pop bypass graft SHX VASCULAR [...] billion cell c (more content not included)... [facility] 07-08-2024 History of Present illness Narrative Chief [...] REVSC OPN/PRG FEM/POP W/ANGIOPLASTY UNI Right 09/25/2016 NPS of R fem-pop bypass graft SHX VASCULAR [...] 06/03/2024 Influenza Vaccine(1) due on 09/29/2024 Covid-19 Vaccine(1 - 2023- season) due on 01/07/2025 Urine [...] Abs Lymph 1.00 - 4.00 k/uL 2.50 [place]man% % 8.5 Abs [place] <0.87 k/uL 0.84 Eosin% % 3.9 Abs [...] Tobi Sorto MD documented in this encounter [facility] 07-07-2024 Telephone encounter Note Pt returned call and given provider's message below with verbalized understanding. [facility] 07-07-2024 Miscellaneous Notes Pt returned call and [...] to requested pharmacy. documented in this encounter [facility] 07-07-2024 Telephone encounter Note VM left for patient to return call to review FOBT results. Dolores Jama LPN [facility] 07-07-2024 Telephone encounter Note ----- Message from Tobi Sorto MD sent at 07/07/2024 8:47 AM EDT ----- FOBT negative for blood in the stool. Continue iron supplement and recheck labs after 08/30 as previously ordered. [facility] 06-30-2024 Telephone encounter Note Patient's iron stores [...] agreeable, will send rx to requested pharmacy. [facility] 06-09-2024 Note HNO ID: [id number] Author: RAO HILLMAN, ? Service: ? Author [...] RTC in 3-4 months. Rao Hillman DPM [facility] 06-09-2024 History of Present illness Narrative Last [...] was an open would previously. SRUTHI 03/10/24 documented in this encounter [facility] 06-09-2024 Note HNO ID: [id number] Author: FERN AGUILAR RN Service: ? Author [...] was an open would previously. SRUTHI 03/10/24 [facility] 06-04-2024 Telephone encounter Note PDMP website checked and validated. All prescriptions have been APPROPRIATELY filled. No suspicious activity was identified. 06/04/2024 by Tobi Sorto MD [facility] 06-04-2024 Miscellaneous Notes PDMP website checked and [...] 2024 2:38 PM documented in this encounter [facility] 06-03-2024 Telephone encounter Note Prescription Refill Information [...] Marilee Samuels June 03, 2024 2:38 PM [facility] 05-28-2024 Telephone encounter Note Patient called asking for a refill on gabapentin 300 mg capsules. [facility] 05-28-2024 Miscellaneous Notes Patient called asking for a refill on gabapentin 300 mg capsules. documented in this encounter [facility] 05-13-2024 Telephone encounter Note TC to patient who is notified medication sent to pharmacy. AALIYAH Blank [facility] 05-13-2024 Miscellaneous Notes TC to patient who [...] 2024 10:15 AM documented in this encounter [facility] 05-13-2024 Telephone encounter Note PDMP website checked and validated. All prescriptions have been APPROPRIATELY filled. No suspicious activity was identified. 05/13/2024 by Tobi Sorto MD [facility] 05-13-2024 Telephone encounter Note Prescription Refill Information [...] Lily Brown May 13, 2024 10:15 AM [facility] 04-28-2024 Telephone encounter Note [facility] website checked and validated. All prescriptions have been APPROPRIATELY filled. No suspicious activity was identified. 04/28/2024 by Audrey Packer APRN.EDENILSON [facility] 04-28-2024 Miscellaneous Notes [facility] website checked and validated. All prescriptions have [...] 2024 11:16 AM documented in this encounter [facility] 04-28-2024 Telephone encounter Note Patient requesting a 90 day supply. Vira Terry MA [facility] 04-28-2024 Telephone encounter Note Prescription Refill Information [...] Jael Samuels April 28, 2024 11:16 AM [facility] 04-25-2024 Note Addended by: TOBI SORTO on: 04/25/2024 02:00 PM Modules accepted: Orders [facility] 04-25-2024 Telephone encounter Note Stopped at last OV. Given requip for RLS. Let us know if symptoms not improving. [facility] 04-25-2024 Miscellaneous Notes Addended by: TOBI SORTO [...] you. Audrey Bacon. documented in this encounter [facility] 04-25-2024 Telephone encounter Note Patient has been identified by name and date of : Yes Patient phones for refill(s): tiZANidine (ZANAFLEX) 2 mg tablet (not in refill list) Date of last office visit in primary care: 04/09/2024 Date of next office visit in primary care: 07/08/2024 Please advise. Thank you. Audrey Bacon. [facility] 04-09-2024 Note HNO ID: [id number] Author: TOBI SORTO MD Service: ? Author [...] REVSC OPN/PRG FEM/POP W/ANGIOPLASTY UNI Right 09/25/2016 NPS of R fem-pop bypass graft SHX VASCULAR [...] 0.25 Average p (more content not included)... [facility] 04-09-2024 History of Present illness Narrative Chief [...] REVSC OPN/PRG FEM/POP W/ANGIOPLASTY UNI Right 09/25/2016 NPS of R fem-pop bypass graft SHX VASCULAR [...] Lancets lancets Test once daily DX: E11.42. E11 insulin needles, DISPOSABLE, (BD INSULIN PEN NEEDLE [...] Abs Lymph 1.00 - 4.00 k/uL 2.50 [place]% % 8.5 Abs [place] <0.87 k/uL 0.84 Eosin% % 3.9 Abs [...] Tobi Sorto MD documented in this encounter [facility] 04-08-2024 Telephone encounter Note Patient calls and [...] tomorrow morning to discuss next steps. Amanda Hammer RN [facility] 04-08-2024 Miscellaneous Notes Patient calls and states [...] tomorrow morning to discuss next steps. Amanda Hammer RN documented in this encounter [facility] 03-25-2024 Telephone encounter Note PDMP website checked and validated. All prescriptions have been APPROPRIATELY filled. No suspicious activity was identified. 03/25/2024 by Audrey Packer APRN.EDENILSON [facility] 03-25-2024 Miscellaneous Notes PDMP website checked and validated. All prescriptions have been APPROPRIATELY filled. No suspicious activity was identified. 03/25/2024 by Audrey Packer APRN.CNP The patient has been identified by name [...] Marilee Hernández RN documented in this encounter [facility] 03-25-2024 Telephone encounter Note The patient has [...] needed for muscle spasms Marilee Hernández RN [facility] 03-24-2024 Telephone encounter Note Patient's request for medication is as follows: Requested Prescriptions Pending Prescriptions Disp Refills fluticasone-salmeterol (ADVAIR) 500-50 mcg/dose dsdv [Pharmacy Med Name: FLUTICASONE-SALMETEROL 500-50] 60 Each 4 Sig: INHALE 1 PUFF INSTRUCTED TWO TIMES A DAY SRUTHI: 09/17/23 Please approve the above prescription(s) to electronically send to pharmacy. Karen Vera LPN [facility] 03-24-2024 Miscellaneous Notes Patient's request for medication is as follows: Requested Prescriptions Pending Prescriptions Disp Refills fluticasone-salmeterol (ADVAIR) 500-50 mcg/dose dsdv [Pharmacy Med Name: FLUTICASONE-SALMETEROL 500-50] 60 Each 4 Sig: INHALE 1 PUFF INSTRUCTED TWO TIMES A DAY SRUTHI: 09/17/23 Please approve the above prescription(s) to electronically send to pharmacy. Karen Vera LPN documented in this encounter [facility] 03-10-2024 History of Present illness Narrative Radiology [...] PATIENT PRESENTS WITH AN IMPLANTABLE OR ATTACHED DIRECTOR OF PRECLINICAL RESEARCH: No RADIOLOGY DEPARTMENT: General X-ray: Exam(s) Completed: Lower Extremity X-Ray(s): Ankle, Right and Wt. Bearing PERIPHERAL IV DATA: Not applicable SIGNED BY: RT Val(Laurence) March 10, 2024 1:31 PM documented in this encounter [facility] 03-10-2024 Note HNO ID: [id number] Author: LILIANE LEWIS RT(Laurence) Service: ? Author Type: Technologist Type: Progress [...] PATIENT PRESENTS WITH AN IMPLANTABLE OR ATTACHED DIRECTOR OF PRECLINICAL RESEARCH: No RADIOLOGY DEPARTMENT: General X-ray: Exam(s) Completed: Lower Extremity X-Ray(s): Ankle, Right and Wt. Bearing PERIPHERAL IV DATA: Not applicable SIGNED BY: RT Val(R) March 10, 2024 1:31 PM [facility] 03-10-2024 Note HNO ID: [id number] Author: RAO HILLMAN, ? Service: ? Author [...] will help patient. Will call in to [place]. Patient was instructed on the continued importance of diabetic foot care along with proper diet and keeping their blood sugar under control to prevent complications. Stressed the importance of avoiding barefoot walking, wearing good shoes and inspection of feet. Patient is to RTC in 3-4 months. Rao Hillman DPM [facility] 03-10-2024 History of Present illness Narrative Last [...] will help patient. Will call in to [place]. Patient was instructed on the continued importance [...] Bekah Flynn LPN documented in this encounter [facility] 03-10-2024 Note HNO ID: [id number] Author: BEKAH FLYNN LPN Service: ? Author Type: LICENSED NURSE Type: Progress Notes Filed: 03/10/2024 09:30 Note Text: AMB ROOMING INTAKE FLOWSHEET DATA Patient presents with: Left Foot - Established Patient, Follow Up, Diabetic Foot Care Right Foot - Established Patient, Follow Up, Diabetic Foot Care Bekah Flynn LPN [facility] 03-07-2024 Note HNO ID: [id number] Author: ?, ?, ? Service: ? Author Type: ? Type: Progress Notes Filed: 03/07/2024 18:10 Note Text: Date: March 07, 2024 Name: Josuha Estes Comments: HST was returned in working order with all sleep questionnaires. Invalid, study less than 1-2 hours total. Myc sent to repeat testing. Yousuf Milner [facility] 03-07-2024 Telephone encounter Note Phoned patient and reviewed message with him. Patient voiced understanding. Dolores Jama LPN [facility] 03-07-2024 Miscellaneous Notes Phoned patient and reviewed message with him. Patient voiced understanding. Dolores Jama LPN ----- Message from Audrey Packer APRN.PRESSED OR BLOWN GLASS WORKER sent at 03/07/2024 5:52 AM EST ----- Iron levels are fine. Audrey Packer APRN.PRESSED OR BLOWN GLASS WORKER documented in this encounter [facility] 03-07-2024 Telephone encounter Note ----- Message from Audrey Packer APRN.PRESSED OR BLOWN GLASS WORKER sent at 03/07/2024 5:52 AM EST ----- Iron levels are fine. Audrey Packer APRN.PRESSED OR BLOWN GLASS WORKER [facility] 03-04-2024 Instructions Audrey Packer APRN.EDENILSON - 03/04/2024 9:54 AM EST Start B complex vitamin containing 30 mg of vitamin B6- take one tablet or capsule three times a day and may also take Vitamin E 800 units daily at bedtime documented in this encounter [facility] 03-04-2024 Note HNO ID: [id number] Author: AUDREY PACKER APRN.EDENILSON Service: ? Author Type: Nurse Practitioner Type: [...] 17.4 (H) Hem (more content not included)... [facility] 03-04-2024 History of Present illness Narrative 03/04/2024 [...] Vaccine( - 2023- season) due on 01/07/2025 HbA1C [...] Abs Lymph 1.00 - 4.00 k/uL 2.50 [place]% % 8.5 Abs [place] <0.87 k/uL 0.84 Eosin% % 3.9 Abs [...] 4 - Moderate documented in this encounter [facility] 03-03-2024 Note HNO ID: [id number] Author: ?, ?, ? Service: ? Author Type: ? Type: Progress Notes Filed: 03/03/2024 16:19 Note Text: Called and spoke with patient. Patient stated package nick out today 03/03 via [employer]. Typed tracking in to [employer] and was not able tto gather info; recevied error message [facility] 03-03-2024 Telephone encounter Note [facility] checked and validated. All prescriptions have been APPROPRIATELY filled. No suspicious activity was identified. 03/03/2024 by Audrey Packer APRN.CNP [facility] 03-03-2024 Miscellaneous Notes [facility] website checked and validated. All prescriptions have [...] 2024 9:06 AM documented in this encounter [facility] 03-03-2024 Telephone encounter Note Prescription Refill Information [...] Vijaya Razo March 03, 2024 9:06 AM [facility] 02-26-2024 Note HNO ID: [id number] Author: ?, ?, ? Service: ? Author Type: ? Type: Progress Notes Filed: 02/26/2024 16:58 Note Text: [employer] # [id number], date shipped out 02-26-24 [employer] only Tracking mailout:[id number] Tracking return: [id number] [facility] 02-26-2024 Telephone encounter Note Spoke with pt and informed him our records show a valid rx at the pharmacy. Therese Lacy LPN [facility] 02-26-2024 Miscellaneous Notes Spoke with pt and [...] you. Audrey Bacon. documented in this encounter [facility] 02-26-2024 Telephone encounter Note Patient has been [...] 07/08/2024 Please advise. Thank you. Audrey Bacon. [facility] 02-22-2024 Note HNO ID: [id number] Author: KIM YATES MD Service: ? Author Type: Physician Type: Progress Notes Filed: 02/22/2024 10:23 Note Text: February 22, 2024 Standing PSG Orders signed in the last 90 days None Future PSG Orders signed in the last 90 days Ordered Auth. provider HOME SLEEP APNEA TEST (HSAT) [[id number]] 02/13/24 PodlogarAudrey APRN.PRESSED OR BLOWN GLASS WORKER Assoc. diagnoses: Daytime somnolence [R40.0], Snoring [R06.83] [...] Special instructions: None-follow laboratory protocol Mounika Cui [facility] Staff Note: I have read the above protocol, edited as needed, and agree to the plan. Kim Yates MD 10:23 AM, 02/22/2024 [facility] 02-22-2024 History of Present illness Narrative February 22, 2024 Standing PSG Orders signed in the last 90 days None Future PSG Orders signed in the last 90 days Ordered Auth. provider HOME SLEEP APNEA TEST (HSAT) [[id number]] 02/13/24 PodlogAudrey kwan APRN.PRESSED OR BLOWN GLASS WORKER Assoc. diagnoses: Daytime somnolence [R40.0], Snoring [R06.83] [...] (HSAT) Special instructions: None-follow laboratory protocol [facility]oun[facility] Staff Note: I have read the above protocol, edited as needed, and agree to the plan. Kim Yates MD 10:23 AM, 02/22/2024 February 21, 2024 An order has been received for Home Sleep Apnea Test (HSAT) from Audrey Shanks [facility] Staff. Visit prep complete. Comments :No The sleep study is scheduled for 02/29/24. Insurance: Payor: DEVOTED MEDICARE / Plan: [employer] ID HMO / Product Type: HMO / Payer/Plan Subscr Sex Relation Sub. Ins. ID Effective Group Num 1. DEVOTED MEDIC* FRANKLYNJOSHUA Sharp 1955 Male Self [id number] 12/02/23 [address] Davina Montemayor documented in this encounter [facility] 02-21-2024 Note HNO ID: [id number] Author: ?, ?, ? Service: ? Author Type: ? Type: Progress Notes Filed: 02/22/2024 10:23 Note Text: February 21, 2024 An order has been received for Home Sleep Apnea Test (HSAT) from Audrey Shanks [facility] Staff. Visit prep complete. Comments :No The sleep study is scheduled for 02/29/24. Insurance: Payor: DEVOTED MEDICARE / Plan: [employer] ID HMO / Product Type: HMO / Payer/Plan Subscr Sex Relation Sub. Ins. ID Effective Group Num 1. DEVOTED MEDIC* RUSS ESTESPatricia Sharp 1955 Male Self [id number] 12/02/23 [address] Davina oMntemayor [facility] 02-20-2024 Telephone encounter Note Phoned patient and updated him order placed and gave him the toll free number for the HSAT. He voiced understanding and reports he will call and get it set up. Dolores Jama LPN [facility] 02-20-2024 Miscellaneous Notes Phoned patient and updated him order placed and gave him the toll free number for the HSAT. He voiced understanding and reports he will call and get it set up. Dolores Jama LPN [employer] message sent to pt notifying him we've [...] or witnessed episodes of apnea? Audrey Packer APRN.PRESSED OR BLOWN GLASS WORKER Patient reported he had discussed sleep study with Audrey but did not want to complete one initially. Patient now requesting at home sleep study. Dolores Jama LPN documented in this encounter [facility] 02-20-2024 Telephone encounter Note Patient has been [...] 07/08/2024 Please advise. Thank you. Audrey Bacon. [facility] 02-20-2024 Miscellaneous Notes Patient has been identified [...] you. Audrey Bacon. documented in this encounter [facility] 02-19-2024 Telephone encounter Note JumpTime message sent to pt notifying him we've attempted to reach him by phone with message left on for a return call to office. Asked pt to contact office and speak with Triage Nurse. Notify pt of message below from Provider. Janice Caballero MA [facility] 02-13-2024 Telephone encounter Note Telephone call placed to patient to make aware, message left to call office back for update. Marleny Raygoza LPN [facility] 02-13-2024 Telephone encounter Note Patient would like home sleep study ordered. Endorses daytime fatigue and lod snoring. Reports waking up at night feeling like he can not get air in. Order placed. Please let patient know [facility] 02-13-2024 Telephone encounter Note Pt states he [...] to fall back asleep. Dolores Sawyer LPN [facility] 02-13-2024 Telephone encounter Note Left vm for patient to return call to nurse for provider's message. [facility] 02-12-2024 Telephone encounter Note Sorry I don't see where I documented we talked about this. Does he have daytime fatigue or told he has loud snoring or witnessed episodes of apnea? Audrey Packer APRN.PRESSED OR BLOWN GLASS WORKER [facility] 02-12-2024 Telephone encounter Note Patient reported he had discussed sleep study with Audrey but did not want to complete one initially. Patient now requesting at home sleep study. Dolores Jama LPN [facility] 02-07-2024 Telephone encounter Note Pt is requesting refills on the following medication. Please file if appropriate. [facility] 02-07-2024 Miscellaneous Notes Pt is requesting refills on the following medication. Please file if appropriate. documented in this encounter [facility] 02-06-2024 Note HNO ID: [id number] Author: ROLANDO JEAN MD Service: ? Author Type: Physician Type: Progress Notes Filed: 02/06/2024 16:06 Note Text: [facility] [place] DEPARTMENT OF VASCULAR SURGERY OUTPATIENT VISIT DATE [...] He has been seen by his local psychology technician. He denies any claudication symptoms or foot [...] REVSC OPN/PRG FEM/POP W/ANGIOPLASTY UNI Right 09/25/2016 NPS of R fem-pop bypass graft [facility]X VASCULAR [...] daily. ALLERGIES: ALLERG (more content not included)... [facility] 02-06-2024 History of Present illness Narrative Images from the original note were not included. [facility] [place] DEPARTMENT OF VASCULAR SURGERY OUTPATIENT VISIT DATE [...] He has been seen by his local psychology technician. He denies any claudication symptoms or foot [...] REVSC OPN/PRG FEM/POP W/ANGIOPLASTY UNI Right 09/25/2016 NPS of R fem-pop bypass graft SHX VASCULAR [...] STRIP) test strip Test once daily DX: E1142, E11. Blood Pressure Monitor (BLOOD PRESSURE KIT) 1 Each once daily. Blood-Glucose Meter (TRUE METRIX AIR GLUCOSE METER) misc 1 Device twice daily. Lancets lancets Test once daily DX: E1142. E11. insulin needles, DISPOSABLE, (BD INSULIN PEN [...] TIME: 1:26 PM documented in this encounter [facility] 01-28-2024 Telephone encounter Note Patient has been [...] 07/08/2024 Please advise. Thank you. Audrey Bacon. [facility] 01-28-2024 Miscellaneous Notes Patient has been identified [...] you. Audrey Bacon. documented in this encounter [facility] 01-21-2024 Telephone encounter Note PDMP website checked and validated. All prescriptions have been APPROPRIATELY filled. No suspicious activity was identified. 01/21/2024 by Audrey Packer APRN.PRESSED OR BLOWN GLASS WORKER [facility] 01-21-2024 Miscellaneous Notes PDMP website checked and validated. All prescriptions have been APPROPRIATELY filled. No suspicious activity was identified. 01/21/2024 by Audrey Packer APRN.PRESSED OR BLOWN GLASS WORKER Patient has been identified by name and [...] 2024 3:39 PM documented in this encounter [facility] 01-21-2024 Telephone encounter Note Patient has been [...] Please advise. Thank you. Alondra Gillette MA. [facility] 01-21-2024 Telephone encounter Note Prescription Refill Information [...] Ebony Samuels January 21, 2024 3:39 PM [facility] 01-10-2024 Telephone encounter Note Spoke with patient appt scheduled 02/06/24 with with testing. [facility] 01-10-2024 Miscellaneous Notes Spoke with patient appt scheduled 02/06/24 with with testing. Triage please? What testing will he need? Thanks, Reason for call: Mr Estes called and he would like to schedule an appointment with Contact Name (If not the pt): Home and cell number: [phone] Diagnosis: Post PAD surgery , pt having issues with is leg Kind Angel Schuler documented in this encounter [facility] 01-10-2024 Telephone encounter Note Triage please? What testing will he need? Thanks, [facility] 01-08-2024 Telephone encounter Note Reason for call: Mr Franklyn called and he would like to schedule an appointment with Contact Name (If not the pt): Home and cell number: [phone] Diagnosis: Post PAD surgery , pt having issues with is leg Kind Angel Schuler [facility] 01-08-2024 History of Present illness Narrative 01/08/2024 [...] Abs Lymph 1.00 - 4.00 k/uL 2.50 [place]man% % 8.5 Abs [place] <0.87 k/uL 0.84 Eosin% % 3.9 Abs [...] No suspicious activity was identified. 01/08/2024 by Audrey Packer APRN.EDENILSON Packer APRN.EDENILSON Prescription instructions reviewed with patient [...] 4 - Moderate documented in this encounter [facility] 01-08-2024 Note HNO ID: [id number] Author: AUDREY PACKER APRN.CNP Service: ? Author [...] Smokeless tobacco: Nev (more content not included)... [facility] 12-21-2023 Telephone encounter Note Rx sent for 30 days for 400 mg gabapentin TID. Call if symptoms not improving in 2 weeks. [facility] 12-21-2023 Miscellaneous Notes Rx sent for 30 days for 400 mg gabapentin TID. Call if symptoms not improving in 2 weeks. Pt agreeable to increase Gabapentin. Uses [facility] Britt. Rosalva Awad MA He is also on [...] Marleny Raygoza LPN documented in this encounter [facility] 12-20-2023 Telephone encounter Note Pt agreeable to increase Gabapentin. Uses [facility]. Rosalva Awad MA [facility] 12-20-2023 Telephone encounter Note He is also on gabapentin which helps with RLS, we could try increasing dosage to 400 mg TID. If agreeable, will send new rx. [facility] 12-20-2023 Telephone encounter Note Pt notified. He states he taking 2 Zanaflex every night since being started taking. Any other suggestions? Rosalva Awad MA [facility] 12-20-2023 Telephone encounter Note He is on max dose of Requip for RLS. Has he tried taking 2 tablets of the Zanaflex at night? T [facility] 12-19-2023 Telephone encounter Note Patient telephoned. States he is not getting any relief from the new medication he started for restless leg/muscle spasms. (Tizanidine) Says he is up until 3am most nights where his legs are jumping like crazy and not getting any sleep. Would like some advise on what to do next. Please advise. Marleny Raygoza LPN T [facility] 12-05-2023 Note HNO ID: [id number] Author: AUDREY PACKER APRN.PRESSED OR BLOWN GLASS WORKER Service: ? Author Type: Nurse Practitioner Type: [...] years No date: Diabetes mellitus, type II ([facility]) No date: Diabetic ulcer of toe of right foot ([facility]) No date: DVT (deep venous thrombosis) ([facility]) No date: GERD (gastroesophageal reflux disease) No [...] normal, rapid alte (more content not included)... [facility] 12-05-2023 History of Present illness Narrative 12/05/2023 [...] years No date: Diabetes mellitus, type II ([facility]) No date: Diabetic ulcer of toe of right foot ([facility]) No date: DVT (deep venous thrombosis) ([facility]) No date: GERD (gastroesophageal reflux disease) No date: Hyperlipidemia No date: Hypertension No date: Obesity No date: PAC (premature atrial contraction) No date: Peripheral arterial disease ([facility]) No date: Restless leg syndrome No date: [...] HbA1C due on 11/23/2023 Covid-19 Vaccine( - 2022- season) Never done Influenza Vaccine(1) due on [...] for more in depth taste testing Audrey Podlogar, 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 Prescription instructions reviewed with patient as applicable. [...] 4 - Moderate documented in this encounter [facility] 12-04-2023 Instructions Rao Hillman - 12/04/2023 10:06 [...] (or decreased sensation in your feet) a psychology technician should always cut your toenails. Be Careful [...] Go to your health care provider or psychology technician to treat these conditions. documented in this encounter [facility] 12-04-2023 Note HNO ID: [id number] Author: RAO HILLMAN, ? Service: ? Author [...] done in May . Rao Hillman DPM [facility] 12-04-2023 History of Present illness Narrative Last [...] - Established Patient, Follow Up, Callous Bekah lFynn LPN documented in this encounter [facility] 12-04-2023 Note HNO ID: [id number] Author: BEKAH FLYNN LPN Service: ? Author Type: LICENSED NURSE Type: Progress Notes Filed: 12/04/2023 11:04 Note Text: AMB ROOMING INTAKE FLOWSHEET DATA Patient presents with: Left Foot - Established Patient, Follow Up, Callous, Hammer Toe, Pain Right Foot - Established Patient, Follow Up, Callous Bekah Flynn LPN [facility] 11-27-2023 Telephone encounter Note Prescription Refill Information [...] Ebony Samuels November 27, 2023 11:27 AM [facility] 11-27-2023 Miscellaneous Notes Prescription Refill Information The [...] 2023 11:27 AM documented in this encounter [facility] 11-05-2023 Telephone encounter Note Prescription Refill Information [...] Vijaya Razo November 05, 2023 10:54 AM [facility] 11-05-2023 Miscellaneous Notes Prescription Refill Information The [...] Vijaya Razo November 05, 2023 10:54 AM documented in this encounter [facility] 09-25-2023 History of Present illness Narrative Last [...] with diabetes mellitus due to underlying condition ([facility]) (B35.1) Onychomycosis (M79.675) Pain in toe of [...] 2 month follow up callus and hammertoe. [facility] 07/23/23 documented in this encounter [facility] 09-24-2023 Instructions Rao Hillman - 09/24/2023 10:22 [...] (or decreased sensation in your feet) a psychology technician should always cut your toenails. Be Careful [...] Go to your health care provider or psychology technician to treat these conditions. documented in this encounter [facility] 09-18-2023 Telephone encounter Note Prescription Refill Information [...] Vijaya Razo September 18, 2023 3:48 PM [facility] 09-18-2023 Miscellaneous Notes Prescription Refill Information The [...] 2023 3:48 PM documented in this encounter [facility] 09-17-2023 History of Present illness Narrative Images [...] in agreement. Alondra Broderick MD, Staff, Respiratory [place] [facility] CHIEF COMPLAINT: Cough HISTORY OF PRESENT ILLNESS: [...] No significant exposure Silica: No significant exposure Kinney: No significant exposure Mold: No significant exposure [...] Stable exam with no acute radiographic abnormality. 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ENCIA Transcribe Date/Time: Aug 11 2023 5:13P Dictated by : SANTOSH BEACH MD This examination was interpreted and the report reviewed and electronically signed by: SANTOSH BEACH MD on Aug 11 2023 5:16PM EST XR CHEST 2V FRONTAL/LAT Result Date: 11/20/2022 IMPRESSION: No acute radiographic abnormality. 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ENCIA Transcribe Date/Time: Nov 20 2022 1:03P [...] 390 QTC Calculation (Bazett) 438 Calculated P [place] 18 Calculated R [place] -48 Calculated T [place] 23 Impression SINUS RHYTHM WITH PREMATURE ATRIAL COMPLEXES IN A PATTERN OF BIGEMINY LEFT AXIS DEVIATION LOW VOLTAGE QRS, CONSIDER PULMONARY DISEASE, PERICARDIAL EFFUSION, OR NORMAL VARIANT INFERIOR MYOCARDIAL INFARCTION , AGE UNDETERMINED POSSIBLE ANTEROLATERAL INFARCTION , AGE UNDETERMINED ABNORMAL ECG Recent Results (from the past 44559 hour(s)) ECHO Collection Time: 09/04/23 11:06 AM [...] disease counseling. Alondra Broderick MD, Staff, Respiratory [place] [facility] CC: MD Macario Aburto Christopher B,* documented in this encounter [facility] 09-10-2023 Telephone encounter Note Future office visit: 01/08/2024 Gi Sutton LPN September 10, 2023 2:07 PM [facility] 09-10-2023 Miscellaneous Notes Future office visit: 01/08/2024 Gi Sutton LPN September 10, 2023 2:07 PM [...] 2023 11:31 AM documented in this encounter [facility] 09-10-2023 Telephone encounter Note Prescription Refill Information [...] Patricia Samuels September 10, 2023 11:31 AM [facility] 09-07-2023 Telephone encounter Note Patient stated he will schedule pulmonary consult today in [facility]. He will check with his insurance regarding at home sleep test and will call back if he finds it would be covered. [facility] 09-07-2023 Miscellaneous Notes Patient stated he will schedule pulmonary consult today in [facility]. He will check with his insurance [...] any other appointments that day. Fern Stephen, RN Repeat blood counts shows persistently elevated hemoglobin [...] for further workup. documented in this encounter [facility] 09-04-2023 Telephone encounter Note Patient is bringing another patient in Sunday for her appointment with Dr Sorto. [facility] 09-04-2023 Telephone encounter Note I dont see an OV for Sunday, but I have openings tomorrow if he would like appointment to discuss results. [facility] 09-04-2023 Telephone encounter Note Pt called and [...] any other appointments that day. Fern Stephen, RN [facility] 09-04-2023 Telephone encounter Note Repeat blood counts [...] recommend referral to pulmonology for further workup. [facility] 09-04-2023 Telephone encounter Note Patient was notified Alondra Gillette MA [facility] 09-04-2023 Miscellaneous Notes Patient was notified Alondra [...] glimepiride (AMARYL) 4 mg tablet ( PHARMACY: [facility]. documented in this encounter [facility] 09-04-2023 Telephone encounter Note Rx sent. [facility] 09-04-2023 Telephone encounter Note Patient has been [...] Please advise. Thank you. Rossana Moreland LPN. [facility] 09-04-2023 Telephone encounter Note Patient is requesting medication that is . Patient requesting glimepiride (AMARYL) 4 mg tablet ( PHARMACY: [facility]. [facility] 09-04-2023 Telephone encounter Note Patient has been [...] 01/08/2024 Please advise. Thank you. Magdalena Merrill. [facility] 09-04-2023 Miscellaneous Notes Patient has been identified [...] you. Magdalena Merrill. documented in this encounter [facility] 09-03-2023 Telephone encounter Note Completed at Pulmonary appointment today. Marleny Raygoza LPN [facility] 09-03-2023 Miscellaneous Notes Completed at Pulmonary appointment today. Marleny Raygoza LPN Respiratory therapy requesting exhaled nitric oxide testing for patient with SOB and cough. New order placed. documented in this encounter [facility] 09-03-2023 Procedure note Associated Ord er(s): NITRIC [...] DATE: September 03, 2023 TIME: 10:04 AM [facility] 09-03-2023 Procedure note Associated Ord er(s): NITRIC [...] TIME: 10:04 AM documented in this encounter [facility] 09-03-2023 History of Present illness Narrative PULM FUNCTION SMARTBLOCK: Provider: Tobi Sorto MD Assisting Tech: Dee Sparks RPFT Exhaled Nitric Oxide: 1 documented in this encounter [facility] 09-03-2023 Telephone encounter Note Respiratory therapy requesting exhaled nitric oxide testing for patient with SOB and cough. New order placed. [facility] 08-31-2023 Telephone encounter Note Patient notified [facility] Work Phone: 08-31-2023 Miscellaneous Notes Patient notified [...] with severe symptoms. documented in this encounter [facility] 08-31-2023 Telephone encounter Note Message left for patient to return call to review results and recommendations. Doolres Jama LPN [facility] 08-31-2023 Telephone encounter Note ----- Message from [...] go to the ER with severe symptoms. [facility] 08-29-2023 Telephone encounter Note Patient notified. Will call into scheduling to schedule. Marleny Raygoza LPN [facility] 08-29-2023 Miscellaneous Notes Patient notified. Will call into scheduling to schedule. Marleny Raygoza LPN Attempted to call patient 2 times. Both times the line had static, difficult to hear, and call disconnected. Please try again later. PFTs negative for obstruction, but does show possible restrictive lung disease. Recommend obtaining lung volumes to confirm. documented in this encounter [facility] 08-29-2023 Telephone encounter Note Attempted to call patient 2 times. Both times the line had static, difficult to hear, and call disconnected. Please try again later. [facility] 08-28-2023 Telephone encounter Note PFTs negative for obstruction, but does show possible restrictive lung disease. Recommend obtaining lung volumes to confirm. [facility] 08-28-2023 Telephone encounter Note Patient telephoned. Went over providers message below. Patient wants to think on the injectable medication and will give the office a call back to schedule if he decides he wants to try that route. Marleny Raygoza LPN [facility] 08-28-2023 Miscellaneous Notes Patient telephoned. Went over providers message below. Patient wants to think on the injectable medication and will give the office a call back to schedule if he decides he wants to try that route. Marleny Raygoza LPN ----- Message from Audrey Packer APRN.EDENILSON sent at 08/28/2023 7:39 AM EDT ----- [...] staying well hydrated with water. Audrey Packer APRN.PRESSED OR BLOWN GLASS WORKER documented in this encounter [facility] 08-28-2023 Telephone encounter Note ----- Message from Audrey Packer APRN.EDENILSON sent at 08/28/2023 7:39 AM EDT ----- [...] staying well hydrated with water. Audrey Packer APRN.PRESSED OR BLOWN GLASS WORKER [facility] 08-22-2023 History of Present illness Narrative PULM FUNCTION SMARTBLOCK: Provider: Tobi Sorto MD Assisting Tech: Dee Sparks RPFT Spirometry w/BD: 1 documented in this encounter [facility] 08-17-2023 Telephone encounter Note Pt called and is notified of providers results and instructions. Pt voices understanding. Transferred to scheduled to set up appt for PFTs. Fern Stephen RN [facility] 08-17-2023 Miscellaneous Notes Pt called and is [...] call and advise. documented in this encounter [facility] 08-17-2023 Telephone encounter Note PFTs ordered. Will add on tessalon to take PRN for cough and can use OTC mucinex for chest congestion or delsym for cough. If symptoms have not improved with the omeprazole or flonase, I would have him stop them at this point. Will see what his breathing tests show. [facility] 08-17-2023 Telephone encounter Note Pt called in [...] him any relief. Please call and advise. [facility] 08-14-2023 Telephone encounter Note Phoned patient and reviewed results and recommendations with him. Patient voiced understanding. [facility] 08-14-2023 Miscellaneous Notes Phoned patient and reviewed [...] 9 months ago. documented in this encounter [facility] 08-13-2023 Telephone encounter Note Blood work shows high sugar in the 150's with high hemoglobin and hematocrit. Other labs are normal. I would recommend increasing water intake and working on low carb diet. Repeat CBC with peripheral smear in 3-4 weeks to see if blood counts return to normal like they did 9 months ago. [facility] 08-13-2023 Telephone encounter Note Patient has been [...] Please advise. Thank you. Tawny Santos MA. [facility] 08-13-2023 Miscellaneous Notes Patient has been identified [...] Tawny Santos MA. documented in this encounter [facility] 08-13-2023 Telephone encounter Note Attempted to contact patient to review results. Advised results sent via [employer] for him to review. Also advised to call if any questions. Please leave encounter open until patient calls or reviews [employer] message. [facility] 08-13-2023 Miscellaneous Notes Attempted to contact patient to review results. Advised results sent via [employer] for him to review. Also advised to call if any questions. Please leave encounter open until patient calls or reviews [employer] message. ----- Message from Tobi Sorto MD sent at 08/13/2023 8:05 AM EDT ----- Normal chest xray. documented in this encounter [facility] 08-13-2023 Telephone encounter Note ----- Message from Tobi Sorto MD sent at 08/13/2023 8:05 AM EDT ----- Normal chest xray. [facility] 08-10-2023 History of Present illness Narrative EVENT MONITOR DISPOSABLE PATCH INSTRUCTIONS Patient Name: Joshua Estes Clinic Number: [id number] Skin prepped and cleansed with alcohol Patch secured to prepped area Monitor Activated Serial #: [id number] Patient Instructed: Prescribed order timeframe Bathing guidelines Usage of event button and diary documentation Return of monitor at the end of prescribed order Call with problems [phone] or [phone]. [phone] Patient expresses a good understanding of instructions Dolores Jama LPN Chief Complaint Patient presents with: Cough: Cough lingering and keeps patient up at HS HPI Joshua Esets is a 68 year old male who [...] REVSC OPN/PRG FEM/POP W/ANGIOPLASTY UNI Right 09/25/2016 NPS of R fem-pop bypass graft SHX VASCULAR [...] Dilated Retinal Exam due on 08/10/2022 Covid-19 Vaccine(2022- season) Never done Advance Directive Discussion Never [...] Tobi Sorto MD documented in this encounter [facility] 08-06-2023 Telephone encounter Note PDMP website checked and validated. All prescriptions have been APPROPRIATELY filled. No suspicious activity was identified. 08/06/2023 by Audrey Packer APRN.PRESSED OR BLOWN GLASS WORKER [facility] 08-06-2023 Miscellaneous Notes PDMP website checked and validated. All prescriptions have been APPROPRIATELY filled. No suspicious activity was identified. 08/06/2023 by Audrey Packer APRN.PRESSED OR BLOWN GLASS WORKER Patient has been identified by name and [...] you. Ebony Samuels. documented in this encounter [facility] 08-06-2023 Telephone encounter Note Patient has been [...] 01/08/2024 Please advise. Thank you. Ebony Samuels. [facility] 07-23-2023 History of Present illness Narrative FOLLOW [...] (H) 4.3 - 5.6 % Final Comment: [place] [employer] guidelines indicate that patients with [...] REVSC OPN/PRG FEM/POP W/ANGIOPLASTY UNI Right 09/25/2016 NPS of R fem-pop bypass graft SHX VASCULAR [...] Type 2 diabetes mellitus with peripheral neuropathy (hcc) PLAN: Discussed callus of left hallux. Callus [...] Left Foot - Follow Up, Established Patient, [place] Patient presents for follow up of left foot callus, had previous ulcer that has since healed. SRUTHI- 05/28/23 documented in this encounter [facility] 07-09-2023 History of Present illness Narrative 07/09/2023 [...] Aneurysm (HCC) right common femoral artery. Dr. Tiago Farah polyps 08/2018 benign, repeat in 10 years [...] - stable on current regime Audrey Packer APRN.PRESSED OR BLOWN GLASS WORKER Prescription instructions reviewed with patient as applicable. [...] 4 - Moderate documented in this encounter [facility] 07-04-2023 History of Present illness Narrative 07/04/2023 [...] MG-POTASSIUM CLAVULANATE 125 MG TABLET Audrey Packer APRN.CNP Prescription instructions reviewed with [...] 3 - Low documented in this encounter [facility] 05-11-2023 Miscellaneous Notes Patient notified of results and provider's instructions. Patient verbalizes understanding. Amanda Hammer RN Message left for patient to call [...] Audrey Packer APRN.EDENILSON documented in this encounter [facility] 05-10-2023 Miscellaneous Notes Looking at med list, [...] care: 07/09/2023 Please advise. Thank you. Patricia Samuels. documented in this encounter [facility] 05-10-2023 Instructions Rao Hillman - 05/10/2023 10:01 AM EST Apply small amount of topical antibiotic to left great toe daily Use surgical shoe Follow-up 2 weeks Ulceration measures 1 mm in diameter documented in this encounter [facility] 05-10-2023 History of Present illness Narrative FOLLOW [...] (H) 4.3 - 5.6 % Final Comment: [place] [employer] guidelines indicate that patients with [...] Blood-Glucose Meter (TRUE METRIX AIR GLUCOSE METER) [facility] 1 Device twice daily. Lancets lancets Test [...] REVSC OPN/PRG FEM/POP W/ANGIOPLASTY UNI Right 09/25/2016 NPS of R fem-pop bypass graft SHX VASCULAR [...] previous visit. Non-Invasive Vascular Laboratory [facility] Lower Extremity Arterial Physiology Study Bilateral/Complete Date [...] ankle: Normal at rest. Technologist: Alice Duncan RVT [facility] Ordering physician: RAO HILLMAN Interpreting physician: MAHAMED [...] with pallitative care Follow-up in 2 weeks aRo Hillman DPM AMB ROOMING INTAKE FLOWSHEET DATA Pain Pain Level: 10 Pain Location: Foot-Right Description: Sharp, Shooting Duration Amount of Time: 2 Duration Units: Weeks Frequency: Intermittent Intervention/Comfort measure: Reposition, Relaxation Patient presents with: Left Foot - Established Patient, Follow Up, Diabetic Foot Ulcer Right Foot - Established Patient, Follow Up, Pain Bekah Flynn LPN documented in this encounter [facility] 04-09-2023 Miscellaneous Notes Patient has been identified [...] patient. Mamie Samuels documented in this encounter [facility] 02-26-2023 Miscellaneous Notes SRUTHI 01/05/23 NOV 07/09/23 [...] Mamie Comer Pss documented in this encounter [facility] 02-05-2023 Miscellaneous Notes Patient has been identified by name and date of : Yes Requested Prescriptions Pending Prescriptions Disp Refills cyclobenzaprine (FLEXERIL) 5 mg tablet 30 tablet 1 Sig: Take 1-2 tablets at bedtime as needed for muscle spasms RX INSTRUCTIONS: Patient aware RX will be sent to pharmacy. No need to notify patient. Patricia Lacy Pss documented in this encounter [facility] 01-08-2023 Miscellaneous Notes Patient notified and verbalized understanding. Tawny Santos MA Prescription for Jardiance sent. Would like him to repeat A1c in 3 months. I placed order for labs. Audrey Packer APRN.CNP TC to patient who verbalized understanding of providers message below. Patient states he would like restart medication and requesting that Jaurdiance script be sent to [facility] in [place]. Please review and advise. Thank you. AALIYAH [...] Audrey Packer APRN.CNP documented in this encounter [facility] 01-05-2023 History of Present illness Narrative 01/05/2023 [...] Abs Lymph 1.00 - 4.00 k/uL 2.29 Stutsman% % 8.5 Abs Stutsman <0.87 k/uL 0.83 Eosin% % 4.7 Abs [...] 6 months, sooner if needed Audrey Packer APRN.PRESSED OR BLOWN GLASS WORKER Prescription instructions reviewed with patient as applicable. [...] which included preparing to see the patient, [id number]-[id number] patient care, completing clinical documentation, obtaining and/or reviewing separately obtained history, performing a medically appropriate examination, counseling and educating the patient/family/caregiver, and ordering medications, tests, or procedures. documented in this encounter [facility] 11-28-2022 Instructions Rao Hillman - 11/28/2022 11:38 AM EDT Ok to resume diabetic shoe If pain returns, return to boot and call immediately documented in this encounter [facility] 11-28-2022 History of Present illness Narrative FOLLOW [...] (H) 4.3 - 5.6 % Final Comment: [place] [employer] guidelines indicate that patients with [...] REVSC OPN/PRG FEM/POP W/ANGIOPLASTY UNI Right 09/25/2016 NPS of R fem-pop bypass graft SHX VASCULAR [...] neuropathy (HCC) (I73.9) PAD (peripheral artery disease) ([facility]) callus PLAN: Discussed right foot pain. Pain [...] of the ankle. documented in this encounter [facility] 11-20-2022 Miscellaneous Notes Spoke with patient. Given [...] with supportive care. documented in this encounter [facility] 11-20-2022 History of Present illness Narrative Chief [...] REVSC OPN/PRG FEM/POP W/ANGIOPLASTY UNI Right 09/25/2016 NPS of R fem-pop bypass graft SHX VASCULAR [...] Blood-Glucose Meter (TRUE METRIX AIR GLUCOSE METER) [facility] 1 Device twice daily. Lancets lancets Test [...] Tobi Sorto MD documented in this encounter [facility] 11-08-2022 Miscellaneous Notes Patient called. Verified name and date of . Patient is planning to use his current boot. Also informed of [employer] message regarding results and x-rays. Patient verbalizes understanding. Sheryl Hendrix LPN Called patient to provided below instructions. No response. Left VM. Bekah Flynn LPN Images from the original note were not included. Rao Hillman [facility] Podiatry Pool 1 hour ago (7:06 AM) [...] Mady Singh RN documented in this encounter [facility] 11-07-2022 Miscellaneous Notes Patient phones requesting refills as follows: Requested Prescriptions Pending Prescriptions Disp Refills cyclobenzaprine (FLEXERIL) 5 mg tablet 30 tablet 1 Sig: Take 1-2 tablets at bedtime as needed for muscle spasms SRUTHI 10/18/22 NOV 01/05/23 Please review and advise. Dolores Jama LPN documented in this encounter [facility] 11-07-2022 History of Present illness Narrative Radiology [...] 2022 12:34 PM documented in this encounter [facility] 11-07-2022 Instructions Rao Hillman - 11/07/2022 11:32 AM EDT Regarding right [...] (or decreased sensation in your feet) a psychology technician should always cut your toenails. Be Careful [...] Go to your health care provider or psychology technician to treat these conditions. documented in this encounter [facility] 11-07-2022 History of Present illness Narrative Chief [...] REVSC OPN/PRG FEM/POP W/ANGIOPLASTY UNI Right 09/25/2016 NPS of R fem-pop bypass graft SHX VASCULAR [...] thickness. Q8 modifier Rao Hillman DPM Podiatry [address] [facility] [address] Dept: [phone] Dept Patient presents with: Right Foot - Pain, Established Patient AMB ROOMING INTAKE FLOWSHEET DATA Pain Pain Level: 3 Pain Location: Foot-Right Description: Burning Duration Units: Months Frequency: Continuous Intervention/Comfort measure: Relaxation Right foot pain that is aggravated with walking. Pain relief is achieved by elevating in recliner. documented in this encounter [facility] 10-18-2022 History of Present illness Narrative Radiology [...] IV DATA: Not applicable SIGNED BY: RT Val(R) October 18, 2022 10:33 AM documented in this encounter [facility] 10-18-2022 Instructions Lita Abel APRN.PRESSED OR BLOWN GLASS WORKER - 10/18/2022 8:35 AM EDT Get the xray. Get the ultrasound. Get labs. Start the doxycycline. Let us know if any recurrence of diarrhea. Start a probiotic. administrative support manager an dicq-pfq-kijyoib if the prescription isn't covered. Short course of ibuprofen or naproxen to help with pain/inflammation. Schedule w/ podiatry. documented in this encounter [facility] 10-18-2022 History of Present illness Narrative This [...] REVSC OPN/PRG FEM/POP W/ANGIOPLASTY UNI Right 09/25/2016 NPS of R fem-pop bypass graft SHX VASCULAR [...] as needed for worsening/no improvement. Lita Abel APRN.PRESSED OR BLOWN GLASS WORKER documented in this encounter [facility] 09-18-2022 Miscellaneous Notes [facility] 07/05/22 NOV 01/05/23 Tawny Santos MA Patient [...] Ebony Burnham Pss documented in this encounter [facility] 08-29-2022 Miscellaneous Notes Ropinirole 2 mg sent [...] Patricia Lacy Pss documented in this encounter [facility] 07-20-2022 History of Present illness Narrative POPULATION [...] 2022 11:16 AM documented in this encounter [facility] 07-12-2022 Miscellaneous Notes PDMP website checked and [...] Mamie Comer Pss documented in this encounter [facility] 2022 Miscellaneous Notes Patient returned call and [...] change to regimen. documented in this encounter [facility] 06-29-2022 Miscellaneous Notes Patient has been identified [...] advise. Jael Bass documented in this encounter [facility] 06-05-2022 History of Present illness Narrative Last [...] neuropathy (HCC) (I73.9) PAD (peripheral artery disease) ([facility]) Plan: Patient was seen and evaluated. Nails [...] last few days. documented in this encounter [facility] 06-05-2022 Instructions Rao Hillman - 06/05/2022 11:09 [...] (or decreased sensation in your feet) a psychology technician should always cut your toenails. Be Careful [...] Go to your health care provider or psychology technician to treat these conditions. documented in this encounter [facility] 06-01-2022 Miscellaneous Notes SRUTHI 05/24/22 NOV 07/05/22 [...] Tawny Whelan Pss documented in this encounter [facility] 05-24-2022 Instructions Audrey Packer APRN.EDENILSON - 05/24/2022 10:03 AM EST Update me in two weeks with BP readings documented in this encounter [facility] 05-24-2022 History of Present illness Narrative adv05/24/2022 [...] extremity numbness, tingling or weakness. [facility] [address] [place] [address] Test Date: 2022-05-05 Pat Name: JOSHUA NILAYSAUL Department: Room: Gender: Male Loader Magazine Grinder: : 1955 Requested By: Order Number: [id number] Reading MD: Alondra Swartz M.D. Interpretive Statements [...] 15:54:08 EST by Alondra Swartz M.D. ID: [id number] Name: JOSHUA ESTES Race: White Ht: 72.50 [...] 1.34 183 FIVC (L) 2.86 2.95 3 MOG20-50 (L/sec) 1.15 1.21 2.71 4.80 42 1.56 [...] less than the FVC maneuver. [facility] [address] [facility] [address] [place] [address] Test Date: 2022-05-10 Pat Name: JOSHUA ESTES Department: Room: Gender: Male Loader Magazine Grinder: : 1955 Requested By: Order Number: [id number] Reading MD: Alondra Swartz M.D. Interpretive Statements All lung volume repeatability criteria met. IMPRESSION: The RV and RV/TLC are elevated indicating air trapping. The Lung volumes (FRC,ERV,RV) are in a pattern reflecting body habitus. Electronically Signed On 05-11-2022 16:00:44 EST by Alondra Swartz M.D. ID: [id number] Name: JOSHUA ESTES Race: White Ht: 72.50 in Wt: 242.00 lbs Age: 66 Gender: Male : 1955 Dx: Abnormal results of pulmonary function studies Smoking Hx: Smoker Doctor: AUDREY PACKER Test Date: 05/10/2022 Site: Tech: Dee Saprks PRE-BRONCH POST-BRONCH Pre LLN Pred ULN %Pred [...] will monitor - ECG COMPLETE Audrey Packer APRN.EDENILSON Prescription instructions reviewed with [...] which included preparing to see the patient, smme-zq-[id number] patient care, completing clinical documentation, obtaining and/or reviewing separately obtained history, performing a medically appropriate examination, counseling and educating the patient/family/caregiver, and ordering medications, tests, or procedures. documented in this encounter [facility] 05-15-2022 Miscellaneous Notes Patient notified of below [...] noted any improvement in cough. Audrey Packer APRN.CNP documented in this encounter [facility] 05-10-2022 History of Present illness Narrative PULM FUNCTION SMARTBLOCK: Provider: Audrey Packer APRN.CNP Assisting Tech: GHASSAN Lopez LV - Box: 1 documented in this encounter [facility] 05-05-2022 History of Present illness Narrative PULM FUNCTION SMARTBLOCK: Provider: Audrey Packer APRN.CNP Assisting Tech: GHASSAN Lopez Spirometry w/BD: 1 documented in this encounter [facility] 05-01-2022 Instructions Audrey Packer APRN.EDENILSON - 05/01/2022 11:19 AM EST Increase fiber in diet documented in this encounter [facility] 05-01-2022 History of Present illness Narrative 05/01/2022 [...] Blood-Glucose Meter (TRUE METRIX AIR GLUCOSE METER) [facility] 1 Device twice daily. Lancets lancets Test [...] which included preparing to see the patient, [id number] patient care, completing clinical documentation, obtaining and/or reviewing separately obtained history, performing a medically appropriate examination, counseling and educating the patient/family/caregiver, and ordering medications, tests, or procedures. documented in this encounter [facility] 04-28-2022 Miscellaneous Notes SRUTHI: 02/22/22 with PCP NOV: 04/30/22-with ZOEY Last fill: 02/22/22-30 & 1 refill Cheryl Weinstein MA Patient [...] Patricia Lacy Pss documented in this encounter [facility] 04-20-2022 History of Present illness Narrative Radiology [...] TIME: 4:03 PM documented in this encounter [facility] 04-17-2022 Miscellaneous Notes Spoke with patient. Given [...] prior to CT scan? Patient's pharmacy is [facility]. Please review and advise, Amanda Hammer RN documented in this encounter [facility] 04-12-2022 Miscellaneous Notes Patient given results and verbalized understanding of instructions given. Liliane Rodriguez Please let patient know his fungal screen did come back positive for Jerri (yeast that causes thrush), continue the nystatin mouthwash. documented in this encounter [facility] 04-11-2022 Miscellaneous Notes C. Diff POSITIVE. Reached out and informed patient. J Luis called in. 2 remaining stool studies are pending. Discussed the contagiousness and treatment plan. He is to follow up with PCP. documented in this encounter [facility] 04-10-2022 History of Present illness Narrative Radiology [...] 2022 11:55 AM documented in this encounter [facility] 04-10-2022 History of Present illness Narrative HPI [...] electronic medical record. documented in this encounter [facility] 04-09-2022 Instructions Glendy Matos APRN.[facility] - 04/09/2022 12:52 PM EST DEFINITION: White, [...] for Pediatric Patients, 2nd edition, 1998 by [employer] Written by Olvin Pham MD, finisher fiberglass boat parts and author of Your Child's Health, [employer], a book for parents. documented in this encounter [facility] 04-09-2022 History of Present illness Narrative This note was created using [employer]. Subjective Joshua Estes is a 66 year [...] history is provided by the patient. No school speech language pathologist was used. 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 Keep appointment with Audrey tomorrchantale as scheduled. Patient call in for diarrhea [...] little and hard to sit. Protocols used: [id number] documented in this encounter [facility] 03-15-2022 Miscellaneous Notes Pt scheduled in [place] with Rao Frey on Apr 10 TC to patient [...] peer on scheduled CT Scan. Please call [phone]. Therese Lacy LPN documented in this encounter [facility] 03-09-2022 Miscellaneous Notes Pt notified and voiced [...] is behind his left eye and left congregation. Pt denies having a fever, phlegm, snot, or congestion. He reports he has been sleeping with a humidifier on and using a hot pack on his forehead at night. Please call and advise. documented in this encounter [facility] 03-09-2022 Miscellaneous Notes Patient has been identified [...] Liliane Thompson Pss documented in this encounter [facility] 03-03-2022 Miscellaneous Notes Patient has been identified [...] Jessica Soto RN documented in this encounter [facility] 03-01-2022 Miscellaneous Notes Agree. Protocol recommends home [...] Protocols used: Sinus Infection on Antibiotic Follow-up [id number] documented in this encounter [facility] 02-22-2022 History of Present illness Narrative Chief [...] REVSC OPN/PRG FEM/POP W/ANGIOPLASTY UNI Right 09/25/2016 NPS of R fem-pop bypass graft SHX VASCULAR [...] - FLUTICASONE PROPIONATE 50 MCG/ACTUATION NASAL SPRAY,SUSPENSION Tobi Sorto MD documented in this encounter [facility] 02-16-2022 Instructions Rao Hillman - 02/16/2022 11:20 [...] (or decreased sensation in your feet) a psychology technician should always cut your toenails. Be Careful [...] Go to your health care provider or psychology technician to treat these conditions. documented in this encounter [facility] 02-16-2022 History of Present illness Narrative Last [...] Type 2 diabetes mellitus with peripheral neuropathy ([facility]) (I73.9) PAD (peripheral artery disease) ([facility]) Plan: Patient was seen and evaluated. Nails [...] Denies any pain. documented in this encounter [facility] 01-17-2022 Miscellaneous Notes Thanks for your help. Audrey Sw spoke with patient in regards to Jardiance assistance. Patient reports that he is out of Jardiance medication. Sw noted 14 day free voucher for Jardiance. The voucher can only be used 1x. Patient reports that he does not believe that he has ever used voucher. Krystian will mail 14 day free voucher, [employer] application, and HIPPA form to patient to complete and bring application and HIPPA form back to provider office to complete prescription and fax forms to [employer]. On our virtual voucher tab, under pharmacy dept there is a 14 day Jardiance voucher. Voucher is only able to be used 1x. Sw not sure if patient has used voucher already. [facility] has a patient assistance program for Jardiance. Patient can apply to [facility] to see if eligible for assistance. Short term option for help if not eligible for voucher, would be to try [employer] in [facility] to see if they could assist with help for monthly cost until able to hear back from PAP. Sw left message for patient that SW will try call later on this afternoon. Patient calls back and notified that social service coordinator consult was placed. Patient verbalizes understanding. Meaghan Fischer RN Patient telephoned, went to . Message left to call back for update. I have placed order for social service coordinator to reach out to him to see [...] Meaghan Fischer RN documented in this encounter [facility] 01-16-[address] Sorto note 01/13/22 for Sw response to patient assistance need for Jardiance. documented in this encounter [facility] 01-04-2022 Miscellaneous Notes Glad to hear this [...] Audrey Packer APRN.CNP documented in this encounter [facility] 11-03-2021 Miscellaneous Notes Patient was notified Alondra Gillette Ma Altitude sickness typically occurs above 8,000 feet elevation. If he is not planning on climbing, I would not make any adjustments to his medication at this time other than increasing his requip to 2 mg as requested. Pt called in again reporting he will be going to [place] where he will be 5000 feet above [...] and advise. Pt will be traveling to [place] in October. Pt asking if any of his meds or the stent in his leg can/will affect him in the higher elevation areas? States ~ 10,000' above sea level. Please advise. Dolores Sawyer LPN documented in this encounter [facility] 10-14-2021 Miscellaneous Notes PDMP website checked and validated. All prescriptions have been APPROPRIATELY filled. No suspicious activity was identified. 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 08/09 for right lower back pain SUBJECTIVE: This is a 66 year old that is here today for Above Complaints. One week lifted a picnic table HOSPITAL/ER FOLLOW UP: Reason for visit: back pain Which facility: [facility] Date of visit: 08/09/2021 Diagnosis: low [...] THERAPY - plan as above Audrey Packer APRN.PRESSED OR BLOWN GLASS WORKER Prescription instructions reviewed with patient as applicable. Patient advised if symptoms do not improve or if symptoms worsen sooner, to contact their primary care physician. Potential red flag symptoms discussed with the patient. Reviewed appropriate action plan to take if red flag symptoms occur. Patient agreeable to treatment plan. documented in this encounter [facility] 08-12-2021 Miscellaneous Notes If develop leg weakness, numbness or tingling of groin area, or urinary/bowel incontinence or inability to urinate or have bowel movement go to ER. Audrey Packer APRN.CNP Protocol recommends see PCP in 4 hours if appointment can't be made have Pt got to UC or ER. Pt declined PCPs appointmet jasmina, because he has contractors coming out [...] Sunday he couldn't walk and went to [facility] ER. 2. LOCATION: Hurts R side [...] or blood in urine. Pt reports Sunday he lost use of his legs they were very weak had to have daughter bring him to ER. Protocols used: BACK [id number] documented in this encounter [facility] 07-29-2021 History of Present illness Narrative Last [...] Diabetic Foot Care documented in this encounter [facility] 07-29-2021 Instructions Rao Hillman - 07/29/2021 3:06 [...] (or decreased sensation in your feet) a psychology technician should always cut your toenails. Be Careful [...] Go to your health care provider or psychology technician to treat these conditions. documented in this encounter [facility] 07-08-2021 Miscellaneous Notes Patient returned call and went over results, notes from Audrey Packer DANCER OR CHOREOGRAPHER with understanding. Aware rx to pharmacy. Patient said he will have to cigar packer and picker rx tomorrow pharmacy closes shortly today. Called [...] months due to worsening A1c. Audrey Packer APRN.EDENILSON documented in this encounter [facility] 07-04-2021 History of Present illness Narrative 07/04/2021 [...] 2 diabetes mellitus with microalbuminuria, unspecified whether [facility] insulin use (HCC) - ICD9: 250.40, 791.0, ICD10: E11.29, R80.9 (primary diagnosis) Controlled. - Continue current medications - Blood glucose monitoring on a twice a day schedule - Encouraged regular aerobic exercise and weight loss - Follow up in 6 months, sooner should any other issues arise. - Discussed diabetic education issues of importance of appointments with Tetryl Boiling Tub Operator with patient. - BP goal of <130/80 [...] to treatment plan. documented in this encounter [facility] 06-21-2021 Instructions Mary Carmen Jara APRN.CNP - [...] helpful. Additional information can be obtained at [email or web address]) In many cases, skin cancer [...] health care provider. documented in this encounter [facility] 06-21-2021 History of Present illness Narrative Images from the original note were not included. 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 JOSUÉ (acute kidney injury) 12/28/20152018 Overview: Creatinine elevated during postop course; Nephrology consulted On admission his labs were Cr 0.59/ BUN 14 which increased to 2.16/20 on 12/24/15 His Joséu is most likely secondary to his previous [...] of this encounter (statuses as of 06/27/2021) [facility] History of Past illness Narrative* Problem Noted [...] of this encounter (statuses as of 07/04/2021) [facility] History of Past illness Narrative* Problem Noted [...] of this encounter (statuses as of 07/08/2021) [facility] of Past illness Narrative* Problem Noted [...] of this encounter (statuses as of 07/29/2021) [facility] of Past illness Narrative* Problem Noted [...] of this encounter (statuses as of 08/12/2021) [facility] Past [facility] Narrative* Problem Noted [...] of this encounter (statuses as of 08/15/2021) [facility] Narrative* Problem Noted [...] of this encounter (statuses as of 10/13/2021) [facility] Narrative* Problem Noted [...] of this encounter (statuses as of 10/14/2021) [facility] Narrative* Problem Noted [...] of this encounter (statuses as of 11/03/2021) [facility] Past [facility] Narrative* Problem Noted [...] of this encounter (statuses as of 01/04/2022) [facility] Narrative* Problem Noted [...] of this encounter (statuses as of 01/16/2022) [facility] Narrative* Problem Noted [...] of this encounter (statuses as of 01/25/2022) [facility] Narrative* Problem Noted [...] of this encounter (statuses as of 02/17/2022) [facility] Narrative* Problem Noted [...] of this encounter (statuses as of 02/22/2022) [facility] Narrative* Problem Noted [...] of this encounter (statuses as of 03/01/2022) [facility] Narrative* Problem Noted [...] of this encounter (statuses as of 03/03/2022) [facility] Narrative* Problem Noted [...] of this encounter (statuses as of 03/09/2022) [facility] Narrative* Problem Noted [...] of this encounter (statuses as of 03/09/2022) [facility] Narrative* Problem Noted [...] of this encounter (statuses as of 03/16/2022) [facility] Narrative* Problem Noted [...] of this encounter (statuses as of 04/06/2022) [facility] Narrative* Problem Noted [...] of this encounter (statuses as of 04/09/2022) [facility] Narrative* Problem Noted [...] of this encounter (statuses as of 04/10/2022) [facility] Narrative* Problem Noted [...] of this encounter (statuses as of 04/11/2022) [facility] Narrative* Problem Noted [...] of this encounter (statuses as of 04/12/2022) [facility] Narrative* Problem Noted [...] of this encounter (statuses as of 04/17/2022) [facility] Narrative* Problem Noted [...] of this encounter (statuses as of 04/28/2022) [facility] Narrative* Problem Noted [...] of this encounter (statuses as of 05/01/2022) [facility] Narrative* Problem Noted [...] of this encounter (statuses as of 05/05/2022) [facility] Narrative* Problem Noted [...] of this encounter (statuses as of 05/10/2022) [facility] Narrative* Problem Noted [...] of this encounter (statuses as of 05/15/2022) [facility] Narrative* Problem Noted [...] of this encounter (statuses as of 05/24/2022) [facility] Narrative* Problem Noted [...] of this encounter (statuses as of 06/02/2022) [facility] Narrative* Problem Noted [...] of this encounter (statuses as of 06/05/2022) [facility] Narrative* Problem Noted [...] of this encounter (statuses as of 06/29/2022) [facility] Narrative* Problem Noted [...] of this encounter (statuses as of 2022) [facility] Narrative* Problem Noted [...] of this encounter (statuses as of 07/13/2022) [facility] Narrative* Problem Noted [...] of this encounter (statuses as of 07/20/2022) [facility] Narrative* Problem Noted [...] of this encounter (statuses as of 08/29/2022) [facility] Narrative* Problem Noted [...] of this encounter (statuses as of 09/18/2022) [facility] Narrative* Problem Noted [...] of this encounter (statuses as of 10/18/2022) [facility] N[facility]* Problem Noted [...] of this encounter (statuses as of 11/07/2022) [facility] Narrative* Problem Noted [...] of this encounter (statuses as of 11/08/2022) [facility] Narr[facility]* Problem Noted [...] of this encounter (statuses as of 11/21/2022) [facility] Narrative* Problem Noted [...] of this encounter (statuses as of 11/21/2022) [facility] Narrative* Problem Noted [...] of this encounter (statuses as of 11/28/2022) [facility] Narrative* Problem Noted [...] microalbuminuria, without long-term current use of insulin ([facility]) 12/21/2015 05/29/2018 Overview: Home meds Lantus 18 [...] of this encounter (statuses as of 01/06/2023) [facility] History of Past illness Narrative* Problem Noted [...] microalbuminuria, without long-term current use of insulin ([facility]) 12/21/2015 05/29/2018 Overview: Home meds Lantus 18 [...] of this encounter (statuses as of 01/09/2023) [facility] Narrative* Problem Noted [...] of this encounter (statuses as of 02/04/2023) [facility] Narrative* Problem Noted [...] of this encounter (statuses as of 02/04/2023) [facility] Narrative* Problem Noted [...] microalbuminuria, without long-term current use of insulin ([facility]) 12/21/2015 05/29/2018 Overview: Home meds Lantus 18 [...] of this encounter (statuses as of 02/07/2023) [facility] Narrative* Problem Noted [...] microalbuminuria, without long-term current use of insulin ([facility]) 12/21/2015 05/29/2018 Overview: Home meds Lantus 18 [...] of this encounter (statuses as of 02/26/2023) [facility] Narrative* Problem Noted [...] microalbuminuria, without long-term current use of insulin ([facility]) 12/21/2015 05/29/2018 Overview: Home meds Lantus 18 [...] of this encounter (statuses as of 05/07/2023) [facility] Narrative* Problem Noted [...] microalbuminuria, without long-term current use of insulin ([facility]) 12/21/2015 05/29/2018 Overview: Home meds Lantus 18 [...] of this encounter (statuses as of 05/10/2023) [facility] Narrative* Problem Noted [...] microalbuminuria, without long-term current use of insulin ([facility]) 12/21/2015 05/29/2018 Overview: Home meds Lantus 18 [...] of this encounter (statuses as of 05/10/2023) [facility] Narrative* Problem Noted [...] microalbuminuria, without long-term current use of insulin ([facility]) 12/21/2015 05/29/2018 Overview: Home meds Lantus 18 [...] of this encounter (statuses as of 05/11/2023) [facility] Narrative* Problem Noted [...] microalbuminuria, without long-term current use of insulin ([facility]) 12/21/2015 05/29/2018 Overview: Home meds Lantus 18 [...] of this encounter (statuses as of 05/19/2023) [facility] Narrative* Problem Noted [...] microalbuminuria, without long-term current use of insulin ([facility]) 12/21/2015 05/29/2018 Overview: Home meds Lantus 18 [...] of this encounter (statuses as of 06/02/2023) [facility] Narrative* Problem Noted [...] microalbuminuria, without long-term current use of insulin ([facility]) 12/21/2015 05/29/2018 Overview: Home meds Lantus 18 [...] of this encounter (statuses as of 07/05/2023) [facility] Narrative* Problem Noted [...] of this encounter (statuses as of 07/09/2023) [facility] Seborrheic keratosis- Primary Other seborrheic keratosis [facility] Diagnosis Type 2 diabetes mellitus with microalbuminuria, unspecified whether [facility] insulin use (HCC)- Primary Essential hypertension, benign Restless leg syndrome Restless legs syndrome (RLS) Hyperlipidemia with target LDL less than 100 Other and unspecified hyperlipidemia [facility] Diagnosis Onychomycosis- Primary Dermatophytosis of nail Pain in toe of right foot Pain in limb Pain in toe of left foot Pain in limb Hyperkeratosis 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) [facility] Diagnosis Pain in right lumbar region of back- Primary Right groin pain Abdominal pain, right lower quadrant [facility] Diagnosis Type 2 diabetes mellitus with peripheral neuropathy (HCC) Restless leg syndrome Restless legs syndrome (RLS) [facility] Diagnosis Restless leg syndrome Restless legs syndrome (RLS) [facility] Diagnosis Hyperkalemia- Primary Hyperpotassemia [facility] Diagnosis Financial difficulty- Primary Inadequate material resources [facility] Diagnosis Onychomycosis- Primary Dermatophytosis of nail Pain in toe of right foot Pain in limb Pain in toe of left foot Pain in limb Hyperkeratosis 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) PAD (peripheral artery disease) (HCC) Peripheral vascular disease, unspecified [facility] Diagnosis Bacterial sinusitis- Primary Unspecified sinusitis (chronic) [facility] Diagnosis Hypertension, essential Unspecified essential hypertension Type 2 diabetes mellitus with microalbuminuria, unspecified whether [facility] insulin use (HCC) [facility] Diagnosis Chronic sinusitis, unspecified location- Primary [facility] Diagnosis Type 2 diabetes mellitus with peripheral neuropathy (HCC) [facility] Diagnosis Chronic sinusitis, unspecified location- Primary [facility] Diagnosis Pharyngitis, unspecified etiology- Primary Diarrhea, unspecified type Sinus pressure Other diseases of nasal cavity and sinuses [facility] Diagnosis Thunderclap headache- Primary Headache Chronic sinusitis, unspecified location Chronic cough Cough Sore throat Acute pharyngitis [facility] Diagnosis Anxiety- Primary Anxiety state, unspecified [facility] Diagnosis Chronic cough- Primary Cough C. difficile diarrhea Intestinal infection due to clostridium difficile Essential hypertension, benign [facility] Diagnosis Chronic cough Cough [facility] Diagnosis Abnormal pulmonary function test Nonspecific abnormal results of pulmonary system function study [facility] Diagnosis Abnormal pulmonary function test- Primary Nonspecific abnormal results of pulmonary system function study [facility] Diagnosis Cough, unspecified type- Primary Essential hypertension, benign Irregular heart beat Cardiac dysrhythmia, unspecified [facility] Diagnosis Restless leg syndrome Restless legs syndrome (RLS) [facility] Diagnosis Onychomycosis- Primary Dermatophytosis of nail Pain in toe of right foot Pain in limb Pain in toe of left foot Pain in limb Hyperkeratosis 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) PAD (peripheral artery disease) (HCC) Peripheral vascular disease, unspecified [facility] Diagnosis Restless leg syndrome Restless legs syndrome (RLS) [facility] Diagnosis Foot pain, right- Primary Pain in limb Cellulitis of skin Cellulitis and abscess of unspecified site Foot swelling Swelling of limb [facility] Diagnosis Right foot pain- Primary Pain in limb Charcot ankle, right Onychomycosis Dermatophytosis of nail Pain in toe of right foot Pain in limb Pain in toe of left foot Pain in limb Hyperkeratosis 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) PAD (peripheral artery disease) (HCC) Peripheral vascular disease, unspecified [facility] Diagnosis Decreased breath sounds at left lung base- Primary Chronic cough Cough Essential hypertension, benign Restless leg syndrome Restless legs syndrome (RLS) [facility] Diagnosis Right foot pain- Primary Pain in limb Type 2 diabetes mellitus with peripheral neuropathy (HCC) PAD (peripheral artery disease) (HCC) Peripheral vascular disease, unspecified [facility] Diagnosis Type 2 diabetes mellitus with peripheral neuropathy (HCC)- Primary Essential hypertension, benign Restless leg syndrome Restless legs syndrome (RLS) Hyperlipidemia with target LDL less than 100 Other and unspecified hyperlipidemia Peripheral arterial disease (HCC) Peripheral vascular disease, unspecified [facility] Diagnosis Type 2 diabetes mellitus with [...] left foot, limited to breakdown of skin (HCC)- Primary Diabetic polyneuropathy associated with diabetes mellitus due to underlying condition (HCC) [facility] Diagnosis Essential hypertension, benign [facility] Diagnosis Upper respiratory tract infection, unspecified type- Primary Sinus pressure Other diseases of nasal cavity and sinuses [facility] Diagnosis Type 2 diabetes mellitus with peripheral neuropathy (HCC)- Primary Hyperlipidemia with target LDL less than 100 Other and unspecified hyperlipidemia Peripheral arterial disease (HCC) Peripheral vascular disease, unspecified Essential hypertension, benign Restless leg syndrome Restless legs syndrome (RLS) [facility] Diagnosis Callus of foot- Primary Corns and callosities Hammertoe of left foot Type 2 diabetes mellitus with peripheral neuropathy (HCC) [facility] Diagnosis Persistent cough for 3 weeks or longer- Primary Irregular heartbeat Cardiac dysrhythmia, unspecified Bigeminy Other specified cardiac dysrhythmias PAC (premature atrial contraction) Supraventricular premature beats Bradycardia Other specified cardiac dysrhythmias Abnormal EKG Nonspecific abnormal electrocardiogram (ECG) (EKG) [facility] Diagnosis Type 2 diabetes mellitus with peripheral neuropathy (HCC) Essential hypertension, benign [facility] Diagnosis Elevated hemoglobin (HCC)- Primary Other hemoglobinopathies [facility] Diagnosis Persistent cough- Primary Cough [facility] Diagnosis Persistent cough Cough [facility] Diagnosis Restrictive lung disease- Primary Other diseases of lung, not elsewhere classified [facility] Diagnosis Restrictive lung disease Other diseases of lung, not elsewhere classified Persistent cough Cough [facility] Diagnosis Restrictive lung disease Other diseases of lung, not elsewhere classified Persistent cough Cough Restrictive lung disease- Primary Other diseases of lung, not elsewhere classified Persistent cough Cough [facility] Diagnosis Type 2 diabetes mellitus with peripheral neuropathy (HCC) [facility] Diagnosis History of environmental allergies- Primary Other allergy, other than to medicinal agents Restrictive lung disease Other diseases of lung, not elsewhere classified Mild intermittent asthma without complication Unspecified asthma Current smoker Tobacco use disorder Undiagnosed JOSE (obstructive sleep apnea) Obstructive sleep apnea (adult) (pediatric) [facility] Diagnosis Callus of foot- Primary Corns and callosities Diabetic polyneuropathy associated with diabetes mellitus due to underlying condition (HCC) Onychomycosis Dermatophytosis of nail Pain in toe of left foot Pain in limb Pain in toe of right foot Pain in limb [facility] Diagnosis Pre-operative examination- Primary Preoperative examination, [...] Corns and callosities [facility] Diagnosis Pre-operative examination- Primary Preoperative examination, [...] smell and taste [facility] Diagnosis Pre-operative examination- Primary Preoperative examination, [...] weeks or longer [facility] [facility] Diagnosis Pre-operative examination- Primary Preoperative examination, [...] left lung base documented in this encounter [facility] note* Diagnosis Pre-operative examination- Primary Preoperative examination, [...] sinusitis, unspecified location [facility] Diagnosis Pre-operative examination- Primary Preoperative examination, [...] right lower quadrant documented in this encounter [facility] note* Diagnosis Pre-operative examination- Primary Preoperative examination, [...] and radiculitis, unspecified [facility] Diagnosis Pre-operative examination- Primary Preoperative examination, [...] or specific phobias documented [facility] Diagnosis Pre-operative examination- Primary Preoperative examination, [...] vascular disease, unspecified [facility] Diagnosis Pre-operative examination- Primary Preoperative examination, [...] both lower extremities [facility] Diagnosis Pre-operative examination- Primary Preoperative examination, [...] Hypercholesteremia Pure hypercholesterolemia documented [facility] Diagnosis Pre-operative examination- Primary Preoperative examination, [...] and respiratory abnormality [facility] Diagnosis Pre-operative examination- Primary Preoperative examination, [...] Essential hypertension, benign [facility] Diagnosis Pre-operative examination- Primary Preoperative examination, [...] both lower extremities [facility] Diagnosis Pre-operative examination- Primary Preoperative examination, [...] both lower extremities [facility] Diagnosis Pre-operative examination- Primary Preoperative examination, [...] legs syndrome (RLS) [facility] Diagnosis Pre-operative examination- Primary Preoperative examination, [...] of right ankle [facility] Diagnosis Pre-operative examination- Primary Preoperative examination, [...] of right ankle documented [facility] Diagnosis Pre-operative examination- Primary Preoperative examination, [...] both lower extremities documented in this encounter [facility] note* Diagnosis Pre-operative examination- Primary Preoperative examination, [...] legs syndrome (RLS) documented in this encounter [facility] note* Diagnosis Pre-operative examination- Primary Preoperative examination, [...] both lower extremities documented in this encounter [facility] note* Diagnosis Pre-operative examination- Primary Preoperative examination, [...] legs syndrome (RLS) documented [facility] Diagnosis Pre-operative examination- Primary Preoperative examination, [...] legs syndrome (RLS) documented in this encounter [facility] note* Diagnosis Pre-operative examination- Primary Preoperative examination, [...] legs syndrome (RLS) documented in this encounter [facility] note* Diagnosis Pre-operative examination- Primary Preoperative examination, [...] peripheral neuropathy (HCC) documented in this encounter [facility] note* Diagnosis Pre-operative examination- Primary Preoperative examination, [...] examination of blood [facility] Diagnosis Pre-operative examination- Primary Preoperative examination, [...] single bacterial disease documented in this encounter [facility] note* Diagnosis Pre-operative examination- Primary Preoperative examination, [...] disease (HCC)- Primary documented in this encounter [facility] note* Diagnosis Pre-operative examination- Primary Preoperative examination, [...] kidney disease (HCC) documented in this encounter [facility] note* Diagnosis Pre-operative examination- Primary Preoperative examination, [...] Abnormal chest sounds [facility] Diagnosis Pre-operative examination- Primary Preoperative examination, [...] Abnormal chest sounds documented in this encounter [facility] note* Diagnosis Pre-operative examination- Primary Preoperative examination, [...] Essential hypertension, benign documented in this encounter [facility] note* Diagnosis Pre-operative examination- Primary Preoperative examination, [...] Essential hypertension, benign documented in this encounter [facility] note* Diagnosis Pre-operative examination- Primary Preoperative examination, [...] legs syndrome (RLS) documented [facility]* Diagnosis Pre-operative examination- Primary Preoperative examination, [...] abscess of face documented [facility]* Diagnosis Pre-operative examination- Primary Preoperative examination, [...] Tobacco use disorder [facility] Diagnosis Pre-operative examination- Primary Preoperative examination, [...] unspecified laterality (HCC) documented in this encounter [facility] note* Diagnosis Pre-operative examination- Primary Preoperative examination, [...] peripheral neuropathy (HCC) [facility]* Diagnosis Pre-operative examination- Primary Preoperative examination, [...] somnolence Hypersomnia, unspecified documented in this encounter [facility] note* Diagnosis Pre-operative examination- Primary Preoperative examination, [...] laterality (HCC)- Primary documented in this encounter [facility] note* Diagnosis Pre-operative examination- Primary Preoperative examination, [...] examination of blood documented in this encounter [facility] note* Diagnosis Pre-operative examination- Primary Preoperative examination, [...] somnolence Hypersomnia, unspecified documented in this encounter [facility] note* Diagnosis Pre-operative examination- Primary Preoperative examination, [...] unspecified laterality (HCC) documented in this encounter [facility] note* Diagnosis Pre-operative examination- Primary Preoperative examination, [...] unspecified laterality (HCC) documented in this encounter [facility] for referral (narrative)* Outpatient Procedure (Routine) - Authorized Specialty Diagnoses / Procedures Referred By Kaitlyn t Referred To Contact [facility] Diagnoses Chronic cough Procedures SPIROMETRY - BASELINE AND POST DILATOR BRNCDILAT RSPSE SPMTRY PRE&POST-BRNCDILAT ADMN ChucklogAudrey kwan APRN.PRESSED OR BLOWN GLASS WORKER [address] [place] [address] [facility] [place] [address] [place] [address] Referral ID Status Reason Start Date Expiration Date Visits Requested Visits Authorized [id number] Authorized Auto-Generat ed Referral 05/01/2022 05/31/2023 1 1 [facility] for referral (narrative)* Outpatient Procedure (Routine) - Closed Specialty Diagnoses / Procedures [facility] Referred To [facility] Diagnoses Abnormal pulmonary function test Procedures LUNG VOLUMES PodlogAudrey kwan APRN.PRESSED OR BLOWN GLASS WORKER [address] [place] [address] [facility] [place] [address] [place] [address] Referral ID Status Reason Start Date Expiration Date V isits Requested Visits Authorized [id number] Closed Auto-Generate d Referral 05/05/2022 06/04/2023 1 1 [facility] for referral (narrative)* Outpatient Procedure (Routine) - Closed Specialty Diagnoses / Procedures [facility] Referred To Contact [facility] Diagnoses Irregular heart beat Procedures ECG COMPLETE ECG ROUTINE ECG W/LEAST 12 LDS W/I&R PodlogAudrey kwan APRN.PRESSED OR BLOWN GLASS WORKER [address] [place] [address] [facility] [place] [address] [place] [address] Referral ID Status Reason Start Date Expiration Date V isits Requested Visits Authorized [id number] Closed Auto-Generate d Referral 05/24/2022 05/24/2023 1 1 [facility] for referral (narrative)* Outpatient Procedure (Urgent) - Closed Specialty Diagnoses / Procedures Referred By Contac t Referred To Contact [facility] Diagnoses Foot swelling Procedures US LEG VEIN DVT UNL VAS LAB DUP-SCAN XTR VEINS UNILATERAL/LIMITED STUDY Lita Abel APRN.PRESSED OR BLOWN GLASS WORKER [address] [place] [address] [facility] [place] [address] [place] [address] Referral ID Status Reason Start Date Expiration Date V isits Requested Visits Authorized [id number] Closed Auto-Generate d Referral 10/18/2022 10/18/2023 1 1 * Diagnostic Procedure Only (Urgent) - Pending Review Specialty Diagnoses / Procedures Referred By Contac t Referred To Contact US IMAGING Diagnoses Foot swelling Procedures US DVT LOWER RIGHT DUP-SCAN XTR VEINS UNILATERAL/LIMITED STUDY Lita Abel APRN.PRESSED OR BLOWN GLASS WORKER [address] [place] [address] [facility] Referral ID Status Reason Start Date Expiration Date Visits Requested Visits Authorized [id number] Pending Review Auto-Generat ed Referral 10/18/2022 11/17/2023 1 1 * Diagnostic Procedure Only (Urgent) - Closed Specialty Diagnoses / Procedures Referred By Contac t Referred To Contact XR IMAGING Diagnoses Foot pain, right Procedures XR FOOT GENERAL 3V AP/LAT/OBL RIGHT RADEX FOOT COMPLETE MINIMUM 3 VIEWS Lita Abel APRN.PRESSED OR BLOWN GLASS WORKER [address] [place] [address] [facility] Referral ID Status Reason Start Date Expiration Date V isits Requested Visits Authorized [id number] Closed Auto-Generate d Referral 10/18/2022 11/17/2023 1 1 [facility] for referral (narrative)* Diagnostic Procedure Only (Routine) - Closed Specialty Diagnoses / Procedures Referred By Contac t Referred To Contact XR IMAGING Diagnoses Charcot ankle, right Procedures XR FOOT GENERAL 3V AP/LAT/OBL BILATERAL RADEX FOOT COMPLETE MINIMUM 3 VIEWS Rao Hillman [address] [address] X[facility] Imaging Referral ID Status Reason Start Date Expiration Date V isits Requested Visits Authorized [id number] Closed Auto-Generate d Referral 11/07/2022 12/07/2023 1 1 [facility] for referral (narrative)* Diagnostic Procedure Only (Routine) - Closed Specialty Diagnoses / Procedures Referred By Contac t Referred To Contact XR IMAGING Diagnoses Charcot ankle, right Procedures XR FOOT GENERAL 3V AP/LAT/OBL BILATERAL RADEX FOOT COMPLETE MINIMUM 3 VIEWS Rao Hillman [address] [place] [address] [place] [address] Referral ID Status Reason Start Date Expiration Date V isits Requested Visits Authorized [id number] Closed Auto-Generate d Referral 11/07/2022 12/07/2023 1 1 [facility] for referral (narrative)* Diagnostic Procedure Only (Urgent) - Closed Specialty Diagnoses / Procedures Referred By Contac t Referred To Contact XR IMAGING Diagnoses Foot pain, right Procedures XR FOOT GENERAL 3V AP/LAT/OBL RIGHT RADEX FOOT COMPLETE MINIMUM 3 VIEWS Lita Abel APRN.PRESSED OR BLOWN GLASS WORKER [address] [place] [address] [place] [address] Referral ID Status Reason Start Date Expiration Date V isits Requested Visits Authorized [id number] Closed Auto-Generate d Referral 10/18/2022 11/17/2023 1 1 [facility] for referral (narrative)* Outpatient Procedure (Routine) - Pending Review Specialty Diagnoses / Procedures Referred By Contac t Referred To [facility] Diagnoses Bigeminy PAC (premature atrial contraction) Bradycardia Abnormal EKG Procedures ECHO ECHO TTHRC R-T 2D W/WOM-MODE COMPL SPEC&COLR D Tobi Sroto MD [address] [place] [address] [facility] [place] [address] [place] [address] Referral ID Status Reason Start Date Expiration Date Visits Requested Visits Authorized [id number] Pending Review Auto-Generat ed Referral 08/10/2023 08/09/2024 1 1 * Consult, Test, Treat (Routine) - Pending Review Specialty Diagnoses / Procedures Referred By Contac t Referred To Contact Cardiology Diagnoses Bigeminy PAC (premature atrial contraction) Bradycardia Procedures CONSULT TO CARDIOLOGY OFFICE/OUTPATIENT [facility] 60 MINUTES Tobi Sorto MD [address] [place] [address] Referral ID Status Reason Start Date Expiration Date Visits Requested Visits Authorized [id number] Pending Review PCP Requested Referral 08/10/2023 08/09/2024 1 1 * Outpatient Procedure (Routine) - Pending Review Specialty Diagnoses / Procedures Referred By Kaitlyn murguia Referred To Contact [facility] [place] Diagnoses Irregular heartbeat Procedures ECG COMPLETE ECG ROUTINE ECG W/LEAST 12 LDS W/I&R Tobi Sorto MD [address] [place] [address] [facility] [address] [address] Referral ID Status Reason Start Date Expiration Date Visits Requested Visits Authorized [id number] Pending Review Auto-Generat ed Referral 08/10/2023 08/09/2024 1 1 [facility] for referral (narrative)* Outpatient Procedure (Routine) - Authorized Specialty Diagnoses / Procedures Referred By Contac t Referred To Contact [facility] Diagnoses Persistent cough Procedures SPIROMETRY - BASELINE AND POST DILATOR BRNCDILAT RSPSE SPMTRY PRE&POST-BRNCDILAT ADMN Tobi Sorto MD [address] [place] [address] [address] Referral ID Status Reason Start Date Expiration Date Visits Requested Visits Authorized [id number] Authorized Auto-Generat ed Referral 08/17/2023 09/15/2024 1 1 [facility] for referral (narrative)* Outpatient Procedure (Routine) - Authorized Specialty Diagnoses / Procedures Referred By Contac t Referred To [facility] [place] Diagnoses Restrictive lung disease Procedures LUNG VOLUMES Tobi Sorto MD [address] [place] [address] [address] Referral ID Status Reason Start Date Expiration Date Visits Requested Visits Authorized [id number] Authorized Auto-Generat ed Referral 08/28/2023 09/26/2024 1 1 [facility] for referral (narrative)* Outpatient Procedure (Routine) - Closed Specialty Diagnoses / Procedures Referred By Contac t Referred To [facility] [place] Diagnoses Restrictive lung disease Persistent cough Procedures NITRIC OXIDE, EXHALED NITRIC OXIDE GAS DETERMINATION Tobi Sorto MD [address] [place] [address] [address] Referral ID Status Reason Start Date Expiration Date V isits Requested Visits Authorized [id number] Closed Auto-Generate d Referral 09/03/2023 10/02/2024 1 1 [facility] for referral (narrative)* Outpatient Procedure (Routine) - Authorized Specialty Diagnoses / Procedures Referred By Contac t Referred To [facility] [place] Diagnoses Mild intermittent asthma without complication Procedures LUNG DIFFUSION CAPACITY (DLCO) DIFFUSING CAPACITY Alondra Broderick MD [address] [place] [address] [address] Referral ID Status Reason Start Date Expiration Date Visits Requested Visits Authorized [id number] Authorized Auto-Generat ed Referral 09/17/2023 10/16/2024 1 1 * Outpatient Procedure (Routine) - Authorized Specialty Diagnoses / Procedures Referred By Contac t Referred To Contact [facility] Diagnoses Mild intermittent asthma without complication Procedures LUNG VOLUMES Alondra Broderick MD [address] [place] [address] [facility] [address] [place] [address] Referral ID Status Reason Start Date Expiration Date Visits Requested Visits Authorized [id number] Authorized Auto-Generat ed Referral 09/17/2023 10/16/2024 1 1 [facility] for referral (narrative)* Diagnostic Procedure Only (Routine) - Closed Specialty Diagnoses / Procedures Referred By Contac t Referred To Contact XR IMAGING Diagnoses Pain in right lumbar region of back Right groin pain Procedures XR LUMBAR GENERAL 3V AP/LAT/L5-S1 RADEX SPINE LUMBOSACRAL 2/3 VIEWS Audrey Packer APRN.CNP [address] [place] [address] [place] [address] Referral ID Status Reason Start Date Expiration Date V isits Requested Visits Authorized [id number] Closed Auto-Generate d Referral 08/15/2021 09/14/2022 1 1 [facility] for referral (narrative)* Outpatient Procedure (Routine) - Pending Review Specialty Diagnoses / Procedures Referred By Contac t Referred To Contact [facility] Diagnoses Peripheral arterial disease (HCC) Procedures PVR ANK/GRULLON/TOE LUIS VAS LAB NON-INVAS PHYSIOLOGIC STD EXTREMITY ART 2 LEVEL Rolando Jean MD [address] [place] [address] [address] Referral ID Status Reason Start Date Expiration Date Visits Requested Visits Authorized [id number] Pending Review Auto-Generat ed Referral 01/09/2025 1 1 * Outpatient Procedure (Routine) - Pending Review Specialty Diagnoses / Procedures Referred By Contac t Referred To Contact [facility] Diagnoses Peripheral arterial disease (HCC) Procedures US LEG ARTERIAL PERIPH UNL VAS LAB DUP-SCAN LXTR ART/ARTL BPGS UNI/[place] [address] [place] [address] [address] [address] Referral ID Status Reason Start Date Expiration Date Visits Requested Visits Authorized [id number] Pending Review Auto-Generat ed Referral 01/09/2025 1 1 [facility] for referral (narrative)* Diagnostic Procedure Only (Routine) - New Request Specialty Diagnoses / Procedures Referred By Contac t Referred To Contact [facility] [place] Diagnoses Daytime somnolence Snoring Procedures HOME SLEEP APNEA TEST (HSAT) SLEEP STD AIRFLOW HRT RATE&O2 SAT EFFORT UNAAudrey Bassett APRN.CNP [address] [place] [address] [place] [address] Referral ID Status Reason Start Date Expiration Date Visits Requested Visits Authorized [id number] New Request Auto-Generat ed Referral 4 02/12/2025 1 1 [facility] for referral (narrative)* Diagnostic Procedure Only (Routine) - Closed Specialty Diagnoses / Procedures Referred By Contac t Referred To Contact XR IMAGING Diagnoses Chronic pain of right ankle Procedures XR ANKLE GENERAL 3V AP/LAT/OBL RIGHT RADEX ANKLE COMPLETE MINIMUM 3 VIEWS Rao Hillman [address] [address] [place] [address] Referral ID Status Reason Start Date Expiration Date V isits Requested Visits Authorized [id number] Closed Auto-Generate d Referral 03/10/2024 04/09/2025 1 1 [facility] for visit Narrative* Diagnostic Procedure Only (Routine) - Closed Specialty Diagnoses / Procedures Referred By Contac t Referred To Contact XR IMAGING Diagnoses Charcot ankle, right Procedures XR FOOT GENERAL 3V AP/LAT/OBL BILATERAL RADEX FOOT COMPLETE MINIMUM 3 VIEWS Rao Hillman [address] [place] [address] [place] [address] Referral ID Status Reason Start Date Expiration Date V isits Requested Visits Authorized [id number] Closed Auto-Generate d Referral 11/07/2022 12/07/2023 1 1 [facility] for visit Narrative* Diagnostic Procedure Only (Urgent) - Closed Specialty Diagnoses / Procedures Referred By Contac t Referred To Contact XR IMAGING Diagnoses Foot pain, right Procedures XR FOOT GENERAL 3V AP/LAT/OBL RIGHT RADEX FOOT COMPLETE MINIMUM 3 VIEWS Lita Abel, 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 [address] [place] [address] [place] [address] Referral ID Status Reason Start Date Expiration Date V isits Requested Visits Authorized [id number] Closed Auto-Generate d Referral 10/18/2022 11/17/2023 1 1 [facility] for visit Narrative* Diagnostic Procedure Only (Routine) - Closed Specialty Diagnoses / Procedures Referred By Contac t Referred To Contact XR IMAGING Diagnoses Pain in right lumbar region of back Right groin pain Procedures XR LUMBAR GENERAL 3V AP/LAT/L5-S1 RADEX SPINE LUMBOSACRAL 2/3 VIEWS Audrey Packer 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 [address] [place] [address] Xr Imaging [facility] Referral ID Status Reason Start Date Expiration Date V isits Requested Visits Authorized [id number] Closed Auto-Generate d Referral 08/15/2021 09/14/2022 1 1 [facility] for visit Narrative* Diagnostic Procedure Only (Routine) - Closed Specialty Diagnoses / Procedures Referred By Contac t Referred To Contact XR IMAGING Diagnoses Chronic pain of right ankle Procedures XR ANKLE GENERAL 3V AP/LAT/OBL RIGHT RADEX ANKLE COMPLETE MINIMUM 3 VIEWS Rao Hillman [address] [address] Xr Imaging [facility] Referral ID Status Reason Start Date Expiration Date V isits Requested Visits Authorized [id number] Closed Auto-Generate d Referral 03/10/2024 04/09/2025 1 1 [facility] for visit Narrative* Diagnostic Procedure Only (Routine) - Closed Specialty Diagnoses / Procedures Referred By Contac t Referred To Contact XR IMAGING Diagnoses Diabetic ulcer of toe associated with diabetes mellitus due to underlying condition, with fat layer exposed, unspecified laterality (HCC) Procedures XR FOOT GENERAL 3V AP/LAT/OBL LEFT RADEX FOOT COMPLETE MINIMUM 3 VIEWS Rao Hillman [address] [place] [address] Phone: tel: fax: [facility] [place] [address] Referral ID Status Reason Start Date Expiration Date V isits Requested Visits Authorized [id number] Closed Auto-Generate d Referral 09/11/2024 10/11/2025 1 1 [facility] for visit Narrative* Diagnostic Procedure Only (Urgent) - Closed Specialty Diagnoses / Procedures Referred By Contact Referred To Contact [facility] Diagnoses Snoring Daytime somnolence Procedures HOME SLEEP APNEA TEST (HSAT) SLEEP STD AIRFLOW HRT RATE&O2 SAT EFFORT Tobi Orr MD [address] [place] [address] Phone: tel: fax: Neurology [address] [place] [id number] Phone: tel: Referral ID Status Reason Start Date Expiration Date V isits Requested Visits Authorized [id number] Closed Auto-Generate d Referral 09/04/2024 04/01/2025 1 1 [facility] Diagnostic Procedure Only (Urgent) - Closed Specialty Diagnoses / Procedures Referred By Contac t Referred To Contact XR IMAGING Diagnoses Diabetic ulcer of toe associated with diabetes mellitus due to underlying condition, with fat layer exposed, unspecified laterality (HCC) Procedures XR TOE AP/LAT/OBL LEFT RADEX TOE MINIMUM 2 VIEWS Rao Hillman [address] [place] [address] Phone: tel: fax: [place] [address] Referral ID Status Reason Start Date Expiration Date V isits Requested Visits Authorized [id number] Closed Auto-Generate d Referral 10/14/2024 11/13/2025 1 1 [facility] Summary Purpose Family History No Family History Records FoundNo Family History Records FoundNo Family History Records FoundNo Family History Records Found Advance Directives No Advanced Directives Records FoundDocuments on File Type Date Recorded 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 Advance Directive(s) 01/20/2019 9:18 AM [...] Documents on File Type Date Recorded 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 Advance Directive(s) 01/20/2019 9:18 AM [...] THERAPY EVALUATION HIGH COMPLEX 45 MINS Podlogar, IRINEO Ventura.PRESSED OR BLOWN GLASS WORKER [address] [place] [address] [facility] [address] [place] [address] Referral ID Status Reason Start Date Expiration Date Visits Requested Visits Authorized [id number] Authorized Auto-Generat ed Referral 08/22/2021 11/22/2021 1 1 Specialty Diagnoses / Procedures Referred By Contac t Referred To Contact XR IMAGING Diagnoses Pain in right lumbar region of back Right groin pain Procedures XR LUMBAR GENERAL 3V AP/LAT/L5-S1 RADEX SPINE LUMBOSACRAL 2/3 VIEWS Podlogar, IRINEO Ventura.PRESSED OR BLOWN GLASS WORKER [address] [place] [address] Xr Imaging Referral ID Status Reason Start Date Expiration Date V isits Requested Visits Authorized [id number] Closed Auto-Generate d Referral 08/15/2021 09/14/2022 1 1 Specialty Diagnoses / Procedures Referred By Contac t Referred To Contact CT IMAGING Diagnoses Chronic sinusitis, unspecified location Procedures CT SINUS WO IVCON CT MAXILLOFACIAL W/O CONTRAST MATERIAL Tobi Sorto MD [address] [place] [address] Ct Imaging Referral ID Status Reason Start Date Expiration Date Visits Requested Visits Authorized [id number] Pending Review Auto-Generat ed Referral 03/08/2022 04/07/2023 1 1 Specialty Diagnoses / Procedures Referred By Contac t Referred To Contact Ent - Otolaryngology Diagnoses Chronic sinusitis, unspecified location Procedures CONSULT TO ENT OFFICE/OUTPATIENT [facility] 60-74 MINUTES Tobi Sorto MD [address] [place] [address] Referral ID Status Reason Start Date Expiration Date Visits Requested Visits Authorized [id number] Authorized PCP Requested Referral 2 03/15/2023 1 1 Specialty Diagnoses / Procedures Referred By Contac t Referred To Contact CT IMAGING Diagnoses Thunderclap headache Procedures CTA HEAD WO/W IVCON CT ANGIOGRAPHY HEAD W/CONTRAST/NONCONTRAST Rao Frey MD [address] [address] [address] Imaging Referral ID Status Reason Start Date Expiration Date Visits Requested Visits Authorized [id number] Authorized Auto-Generat ed Referral 04/10/2022 05/10/2023 1 1 Specialty Diagnoses / Procedures Referred By Contac t Referred To Contact CT IMAGING Diagnoses Thunderclap headache Procedures CTA HEAD WO/W IVCON CT ANGIOGRAPHY HEAD W/CONTRAST/NONCONTRAST Rao Frey MD [address] [address] [place] [address] Referral ID Status Reason Start Date Expiration Date V isits Requested Visits Authorized [id number] Closed Auto-Generate d Referral 04/10/2022 05/10/2023 1 1 Specialty Diagnoses / Procedures Referred By Contac t Referred To Contact Pulmonary and Critical Care Medicine Diagnoses Restrictive lung disease Procedures CONSULT TO PULM/CRITICAL CARE OFFICE/OUTPATIENT [facility] 60 MINUTES Tobi Sorto MD [address] [place] [address] Referral ID Status Reason Start Date Expiration Date Visits Requested Visits Authorized [id number] Pending Review PCP Requested Referral 09/04/2023 09/03/2024 [...] section and content) DATE CREATED AUTHOR 12/30/2018 [facility] DATE CREATED AUTHOR AUTHOR'S ORGANIZ ATION 09/03/2021 [facility] DATE CREATED AUTHOR AUTHOR'S ORGANIZ ATION 09/22/2023 [facility] DATE CREATED AUTHOR AUTHOR'S ORGANIZ ATION 10/17/2024 [facility] Source Comments (unrecognize d section and content) In the event this informatio n is protected by the Federal Confidentiality of Alcohol and Drug Abuse Patient Records regulations: The Federal rules restrict any use of the information to criminally investigate or prosecute any alcohol or drug abuse patient.[facility] the event this information is protected by the Federal Confidentiality of Alcohol and Drug Abuse Patient Records regulations: The Federal rules restrict any use of the information to criminally investigate or prosecute any alcohol or drug abuse patient.[facility] the event this information is protected by the Federal Confidentiality of Alcohol and Drug Abuse Patient Records regulations: The Federal rules restrict any use of the information to criminally investigate or prosecute any alcohol or drug abuse patient.[facility] the event this information is protected by the Federal Confidentiality of Alcohol and Drug Abuse Patient Records regulations: The Federal rules restrict any use of the information to criminally investigate or prosecute any alcohol or drug abuse patient.[facility]In the event this information is protected by the Federal Confidentiality of Alcohol and Drug Abuse Patient Records regulations: The Federal rules restrict any use of the information to criminally investigate or prosecute any alcohol or drug abuse patient.[facility]In the event this information is protected by the Federal Confidentiality of Alcohol and Drug Abuse Patient Records regulations: The Federal rules restrict any use of the information to criminally investigate or prosecute any alcohol or drug abuse patient.[facility]In the event this information is protected by the Federal Confidentiality of Alcohol and Drug Abuse Patient Records regulations: The Federal rules restrict any use of the information to criminally investigate or prosecute any alcohol or drug abuse patient.[facility] HospitalIn the event this information is protected by the Federal Confidentiality of Alcohol and Drug Abuse Patient Records regulations: The Federal rules restrict any use of the information to criminally investigate or prosecute any alcohol or drug abuse patient.[facility]In the event this information is protected by the Federal Confidentiality of Alcohol and Drug Abuse Patient Records regulations: The Federal rules restrict any use of the information to criminally investigate or prosecute any alcohol or drug abuse patient.[facility]In the event this information is protected by the Federal Confidentiality of Alcohol and Drug Abuse Patient Records regulations: The Federal rules restrict any use of the information to criminally investigate or prosecute any alcohol or drug abuse patient.[facility] HospitalIn the event this information is protected by the Federal Confidentiality of Alcohol and Drug Abuse Patient Records regulations: The Federal rules restrict any use of the information to criminally investigate or prosecute any alcohol or drug abuse patient.[facility] HospitalIn the event this information is protected by the Federal Confidentiality of Alcohol and Drug Abuse Patient Records regulations: The Federal rules restrict any use of the information to criminally investigate or prosecute any alcohol or drug abuse patient.[facility] HospitalIn the event this information is protected by the Federal Confidentiality of Alcohol and Drug Abuse Patient Records regulations: The Federal rules restrict any use of the information to criminally investigate or prosecute any alcohol or drug abuse patient.[facility] HospitalIn the event this information is protected by the Federal Confidentiality of Alcohol and Drug Abuse Patient Records regulations: The Federal rules restrict any use of the information to criminally investigate or prosecute any alcohol or drug abuse patient.[facility] HospitalIn the event this information is protected by the Federal Confidentiality of Alcohol and Drug Abuse Patient Records regulations: The Federal rules restrict any use of the information to criminally investigate or prosecute any alcohol or drug abuse patient.[facility] HospitalIn the event this information is protected by the Federal Confidentiality of Alcohol and Drug Abuse Patient Records regulations: The Federal rules restrict any use of the information to criminally investigate or prosecute any alcohol or drug abuse patient.[facility] HospitalIn the event this information is protected by the Federal Confidentiality of Alcohol and Drug Abuse Patient Records regulations: The Federal rules restrict any use of the information to criminally investigate or prosecute any alcohol or drug abuse patient.[facility] HospitalIn the event this information is protected by the Federal Confidentiality of Alcohol and Drug Abuse Patient Records regulations: The Federal rules restrict any use of the information to criminally investigate or prosecute any alcohol or drug abuse patient.[facility] HospitalIn the event this information is protected by the Federal Confidentiality of Alcohol and Drug Abuse Patient Records regulations: The Federal rules restrict any use of the information to criminally investigate or prosecute any alcohol or drug abuse patient.[facility] HospitalIn the event this information is protected by the Federal Confidentiality of Alcohol and Drug Abuse Patient Records regulations: The Federal rules restrict any use of the information to criminally investigate or prosecute any alcohol or drug abuse patient.[facility] HospitalIn the event this information is protected by the Federal Confidentiality of Alcohol and Drug Abuse Patient Records regulations: The Federal rules restrict any use of the information to criminally investigate or prosecute any alcohol or drug abuse patient.[facility] HospitalIn the event this information is protected by the Federal Confidentiality of Alcohol and Drug Abuse Patient Records regulations: The Federal rules restrict any use of the information to criminally investigate or prosecute any alcohol or drug abuse patient.[facility] HospitalIn the event this information is protected by the Federal Confidentiality of Alcohol and Drug Abuse Patient Records regulations: The Federal rules restrict any use of the information to criminally investigate or prosecute any alcohol or drug abuse patient.[facility] HospitalIn the event this information is protected by the Federal Confidentiality of Alcohol and Drug Abuse Patient Records regulations: The Federal rules restrict any use of the information to criminally investigate or prosecute any alcohol or drug abuse patient.[facility] HospitalIn the event this information is protected by the Federal Confidentiality of Alcohol and Drug Abuse Patient Records regulations: The Federal rules restrict any use of the information to criminally investigate or prosecute any alcohol or drug abuse patient.[facility] HospitalIn the event this information is protected by the Federal Confidentiality of Alcohol and Drug Abuse Patient Records regulations: The Federal rules restrict any use of the information to criminally investigate or prosecute any alcohol or drug abuse patient.[facility] HospitalIn the event this information is protected by the Federal Confidentiality of Alcohol and Drug Abuse Patient Records regulations: The Federal rules restrict any use of the information to criminally investigate or prosecute any alcohol or drug abuse patient.[facility] HospitalIn the event this information is protected by the Federal Confidentiality of Alcohol and Drug Abuse Patient Records regulations: The Federal rules restrict any use of the information to criminally investigate or prosecute any alcohol or drug abuse patient.[facility] HospitalIn the event this information is protected by the Federal Confidentiality of Alcohol and Drug Abuse Patient Records regulations: The Federal rules restrict any use of the information to criminally investigate or prosecute any alcohol or drug abuse patient.[facility] HospitalIn the event this information is protected by the Federal Confidentiality of Alcohol and Drug Abuse Patient Records regulations: The Federal rules restrict any use of the information to criminally investigate or prosecute any alcohol or drug abuse patient.[facility] HospitalIn the event this information is protected by the Federal Confidentiality of Alcohol and Drug Abuse Patient Records regulations: The Federal rules restrict any use of the information to criminally investigate or prosecute any alcohol or drug abuse patient.[facility] HospitalIn the event this information is protected by the Federal Confidentiality of Alcohol and Drug Abuse Patient Records regulations: The Federal rules restrict any use of the information to criminally investigate or prosecute any alcohol or drug abuse patient.[facility] HospitalIn the event this information is protected by the Federal Confidentiality of Alcohol and Drug Abuse Patient Records regulations: The Federal rules restrict any use of the information to criminally investigate or prosecute any alcohol or drug abuse patient.[facility] HospitalIn the event this information is protected by the Federal Confidentiality of Alcohol and Drug Abuse Patient Records regulations: The Federal rules restrict any use of the information to criminally investigate or prosecute any alcohol or drug abuse patient.[facility] HospitalIn the event this information is protected by the Federal Confidentiality of Alcohol and Drug Abuse Patient Records regulations: The Federal rules restrict any use of the information to criminally investigate or prosecute any alcohol or drug abuse patient.[facility] HospitalIn the event this information is protected by the Federal Confidentiality of Alcohol and Drug Abuse Patient Records regulations: The Federal rules restrict any use of the information to criminally investigate or prosecute any alcohol or drug abuse patient.[facility] HospitalIn the event this information is protected by the Federal Confidentiality of Alcohol and Drug Abuse Patient Records regulations: The Federal rules restrict any use of the information to criminally investigate or prosecute any alcohol or drug abuse patient.[facility] HospitalIn the event this information is protected by the Federal Confidentiality of Alcohol and Drug Abuse Patient Records regulations: The Federal rules restrict any use of the information to criminally investigate or prosecute any alcohol or drug abuse patient.[facility] HospitalIn the event this information is protected by the Federal Confidentiality of Alcohol and Drug Abuse Patient Records regulations: The Federal rules restrict any use of the information to criminally investigate or prosecute any alcohol or drug abuse patient.[facility] HospitalIn the event this information is protected by the Federal Confidentiality of Alcohol and Drug Abuse Patient Records regulations: The Federal rules restrict any use of the information to criminally investigate or prosecute any alcohol or drug abuse patient.[facility] HospitalIn the event this information is protected by the Federal Confidentiality of Alcohol and Drug Abuse Patient Records regulations: The Federal rules restrict any use of the information to criminally investigate or prosecute any alcohol or drug abuse patient.[facility] HospitalIn the event this information is protected by the Federal Confidentiality of Alcohol and Drug Abuse Patient Records regulations: The Federal rules restrict any use of the information to criminally investigate or prosecute any alcohol or drug abuse patient.[facility] HospitalIn the event this information is protected by the Federal Confidentiality of Alcohol and Drug Abuse Patient Records regulations: The Federal rules restrict any use of the information to criminally investigate or prosecute any alcohol or drug abuse patient.[facility] HospitalIn the event this information is protected by the Federal Confidentiality of Alcohol and Drug Abuse Patient Records regulations: The Federal rules restrict any use of the information to criminally investigate or prosecute any alcohol or drug abuse patient.[facility] HospitalIn the event this information is protected by the Federal Confidentiality of Alcohol and Drug Abuse Patient Records regulations: The Federal rules restrict any use of the information to criminally investigate or prosecute any alcohol or drug abuse patient.[facility] HospitalIn the event this information is protected by the Federal Confidentiality of Alcohol and Drug Abuse Patient Records regulations: The Federal rules restrict any use of the information to criminally investigate or prosecute any alcohol or drug abuse patient.[facility] HospitalIn the event this information is protected by the Federal Confidentiality of Alcohol and Drug Abuse Patient Records regulations: The Federal rules restrict any use of the information to criminally investigate or prosecute any alcohol or drug abuse patient.[facility] HospitalIn the event this information is protected by the Federal Confidentiality of Alcohol and Drug Abuse Patient Records regulations: The Federal rules restrict any use of the information to criminally investigate or prosecute any alcohol or drug abuse patient.[facility] HospitalIn the event this information is protected by the Federal Confidentiality of Alcohol and Drug Abuse Patient Records regulations: The Federal rules restrict any use of the information to criminally investigate or prosecute any alcohol or drug abuse patient.[facility] HospitalIn the event this information is protected by the Federal Confidentiality of Alcohol and Drug Abuse Patient Records regulations: The Federal rules restrict any use of the information to criminally investigate or prosecute any alcohol or drug abuse patient.[facility] HospitalIn the event this information is protected by the Federal Confidentiality of Alcohol and Drug Abuse Patient Records regulations: The Federal rules restrict any use of the information to criminally investigate or prosecute any alcohol or drug abuse patient.[facility] HospitalIn the event this information is protected by the Federal Confidentiality of Alcohol and Drug Abuse Patient Records regulations: The Federal rules restrict any use of the information to criminally investigate or prosecute any alcohol or drug abuse patient.[facility] HospitalIn the event this information is protected by the Federal Confidentiality of Alcohol and Drug Abuse Patient Records regulations: The Federal rules restrict any use of the information to criminally investigate or prosecute any alcohol or drug abuse patient.[facility] HospitalIn the event this information is protected by the Federal Confidentiality of Alcohol and Drug Abuse Patient Records regulations: The Federal rules restrict any use of the information to criminally investigate or prosecute any alcohol or drug abuse patient.[facility] HospitalIn the event this information is protected by the Federal Confidentiality of Alcohol and Drug Abuse Patient Records regulations: The Federal rules restrict any use of the information to criminally investigate or prosecute any alcohol or drug abuse patient.[facility] HospitalIn the event this information is protected by the Federal Confidentiality of Alcohol and Drug Abuse Patient Records regulations: The Federal rules restrict any use of the information to criminally investigate or prosecute any alcohol or drug abuse patient.[facility] HospitalIn the event this information is protected by the Federal Confidentiality of Alcohol and Drug Abuse Patient Records regulations: The Federal rules restrict any use of the information to criminally investigate or prosecute any alcohol or drug abuse patient.[facility] HospitalIn the event this information is protected by the Federal Confidentiality of Alcohol and Drug Abuse Patient Records regulations: The Federal rules restrict any use of the information to criminally investigate or prosecute any alcohol or drug abuse patient.[facility] HospitalIn the event this information is protected by the Federal Confidentiality of Alcohol and Drug Abuse Patient Records regulations: The Federal rules restrict any use of the information to criminally investigate or prosecute any alcohol or drug abuse patient.[facility] HospitalIn the event this information is protected by the Federal Confidentiality of Alcohol and Drug Abuse Patient Records regulations: The Federal rules restrict any use of the information to criminally investigate or prosecute any alcohol or drug abuse patient.[facility] HospitalIn the event this information is protected by the Federal Confidentiality of Alcohol and Drug Abuse Patient Records regulations: The Federal rules restrict any use of the information to criminally investigate or prosecute any alcohol or drug abuse patient.[facility] HospitalIn the event this information is protected by the Federal Confidentiality of Alcohol and Drug Abuse Patient Records regulations: The Federal rules restrict any use of the information to criminally investigate or prosecute any alcohol or drug abuse patient.[facility] HospitalIn the event this information is protected by the Federal Confidentiality of Alcohol and Drug Abuse Patient Records regulations: The Federal rules restrict any use of the information to criminally investigate or prosecute any alcohol or drug abuse patient.[facility] HospitalIn the event this information is protected by the Federal Confidentiality of Alcohol and Drug Abuse Patient Records regulations: The Federal rules restrict any use of the information to criminally investigate or prosecute any alcohol or drug abuse patient.[facility] HospitalIn the event this information is protected by the Federal Confidentiality of Alcohol and Drug Abuse Patient Records regulations: The Federal rules restrict any use of the information to criminally investigate or prosecute any alcohol or drug abuse patient.[facility] HospitalIn the event this information is protected by the Federal Confidentiality of Alcohol and Drug Abuse Patient Records regulations: The Federal rules restrict any use of the information to criminally investigate or prosecute any alcohol or drug abuse patient.[facility] HospitalIn the event this information is protected by the Federal Confidentiality of Alcohol and Drug Abuse Patient Records regulations: The Federal rules restrict any use of the information to criminally investigate or prosecute any alcohol or drug abuse patient.[facility] HospitalIn the event this information is protected by the Federal Confidentiality of Alcohol and Drug Abuse Patient Records regulations: The Federal rules restrict any use of the information to criminally investigate or prosecute any alcohol or drug abuse patient.[facility] HospitalIn the event this information is protected by the Federal Confidentiality of Alcohol and Drug Abuse Patient Records regulations: The Federal rules restrict any use of the information to criminally investigate or prosecute any alcohol or drug abuse patient.[facility] HospitalIn the event this information is protected by the Federal Confidentiality of Alcohol and Drug Abuse Patient Records regulations: The Federal rules restrict any use of the information to criminally investigate or prosecute any alcohol or drug abuse patient.[facility] HospitalIn the event this information is protected by the Federal Confidentiality of Alcohol and Drug Abuse Patient Records regulations: The Federal rules restrict any use of the information to criminally investigate or prosecute any alcohol or drug abuse patient.[facility] HospitalIn the event this information is protected by the Federal Confidentiality of Alcohol and Drug Abuse Patient Records regulations: The Federal rules restrict any use of the information to criminally investigate or prosecute any alcohol or drug abuse patient.[facility] HospitalIn the event this information is protected by the Federal Confidentiality of Alcohol and Drug Abuse Patient Records regulations: The Federal rules restrict any use of the information to criminally investigate or prosecute any alcohol or drug abuse patient.[facility] HospitalIn the event this information is protected by the Federal Confidentiality of Alcohol and Drug Abuse Patient Records regulations: The Federal rules restrict any use of the information to criminally investigate or prosecute any alcohol or drug abuse patient.[facility] HospitalIn the event this information is protected by the Federal Confidentiality of Alcohol and Drug Abuse Patient Records regulations: The Federal rules restrict any use of the information to criminally investigate or prosecute any alcohol or drug abuse patient.[facility] HospitalIn the event this information is protected by the Federal Confidentiality of Alcohol and Drug Abuse Patient Records regulations: The Federal rules restrict any use of the information to criminally investigate or prosecute any alcohol or drug abuse patient.[facility] HospitalIn the event this information is protected by the Federal Confidentiality of Alcohol and Drug Abuse Patient Records regulations: The Federal rules restrict any use of the information to criminally investigate or prosecute any alcohol or drug abuse patient.[facility] HospitalIn the event this information is protected by the Federal Confidentiality of Alcohol and Drug Abuse Patient Records regulations: The Federal rules restrict any use of the information to criminally investigate or prosecute any alcohol or drug abuse patient.[facility] HospitalIn the event this information is protected by the Federal Confidentiality of Alcohol and Drug Abuse Patient Records regulations: The Federal rules restrict any use of the information to criminally investigate or prosecute any alcohol or drug abuse patient.[facility] HospitalIn the event this information is protected by the Federal Confidentiality of Alcohol and Drug Abuse Patient Records regulations: The Federal rules restrict any use of the information to criminally investigate or prosecute any alcohol or drug abuse patient.[facility] HospitalIn the event this information is protected by the Federal Confidentiality of Alcohol and Drug Abuse Patient Records regulations: The Federal rules restrict any use of the information to criminally investigate or prosecute any alcohol or drug abuse patient.[facility] HospitalIn the event this information is protected by the Federal Confidentiality of Alcohol and Drug Abuse Patient Records regulations: The Federal rules restrict any use of the information to criminally investigate or prosecute any alcohol or drug abuse patient.[facility] HospitalIn the event this information is protected by the Federal Confidentiality of Alcohol and Drug Abuse Patient Records regulations: The Federal rules restrict any use of the information to criminally investigate or prosecute any alcohol or drug abuse patient.[facility] HospitalIn the event this information is protected by the Federal Confidentiality of Alcohol and Drug Abuse Patient Records regulations: The Federal rules restrict any use of the information to criminally investigate or prosecute any alcohol or drug abuse patient.[facility] HospitalIn the event this information is protected by the Federal Confidentiality of Alcohol and Drug Abuse Patient Records regulations: The Federal rules restrict any use of the information to criminally investigate or prosecute any alcohol or drug abuse patient.[facility] HospitalIn the event this information is protected by the Federal Confidentiality of Alcohol and Drug Abuse Patient Records regulations: The Federal rules restrict any use of the information to criminally investigate or prosecute any alcohol or drug abuse patient.[facility] HospitalIn the event this information is protected by the Federal Confidentiality of Alcohol and Drug Abuse Patient Records regulations: The Federal rules restrict any use of the information to criminally investigate or prosecute any alcohol or drug abuse patient.[facility] HospitalIn the event this information is protected by the Federal Confidentiality of Alcohol and Drug Abuse Patient Records regulations: The Federal rules restrict any use of the information to criminally investigate or prosecute any alcohol or drug abuse patient.[facility] HospitalIn the event this information is protected by the Federal Confidentiality of Alcohol and Drug Abuse Patient Records regulations: The Federal rules restrict any use of the information to criminally investigate or prosecute any alcohol or drug abuse patient.[facility] HospitalIn the event this information is protected by the Federal Confidentiality of Alcohol and Drug Abuse Patient Records regulations: The Federal rules restrict any use of the information to criminally investigate or prosecute any alcohol or drug abuse patient.[facility] HospitalIn the event this information is protected by the Federal Confidentiality of Alcohol and Drug Abuse Patient Records regulations: The Federal rules restrict any use of the information to criminally investigate or prosecute any alcohol or drug abuse patient.[facility] HospitalIn the event this information is protected by the Federal Confidentiality of Alcohol and Drug Abuse Patient Records regulations: The Federal rules restrict any use of the information to criminally investigate or prosecute any alcohol or drug abuse patient.[facility] HospitalIn the event this information is protected by the Federal Confidentiality of Alcohol and Drug Abuse Patient Records regulations: The Federal rules restrict any use of the information to criminally investigate or prosecute any alcohol or drug abuse patient.[facility] HospitalIn the event this information is protected by the Federal Confidentiality of Alcohol and Drug Abuse Patient Records regulations: The Federal rules restrict any use of the information to criminally investigate or prosecute any alcohol or drug abuse patient.[facility] HospitalIn the event this information is protected by the Federal Confidentiality of Alcohol and Drug Abuse Patient Records regulations: The Federal rules restrict any use of the information to criminally investigate or prosecute any alcohol or drug abuse patient.[facility] HospitalIn the event this information is protected by the Federal Confidentiality of Alcohol and Drug Abuse Patient Records regulations: The Federal rules restrict any use of the information to criminally investigate or prosecute any alcohol or drug abuse patient.[facility] HospitalIn the event this information is protected by the Federal Confidentiality of Alcohol and Drug Abuse Patient Records regulations: The Federal rules restrict any use of the information to criminally investigate or prosecute any alcohol or drug abuse patient.[facility] HospitalIn the event this information is protected by the Federal Confidentiality of Alcohol and Drug Abuse Patient Records regulations: The Federal rules restrict any use of the information to criminally investigate or prosecute any alcohol or drug abuse patient.[facility] HospitalIn the event this information is protected by the Federal Confidentiality of Alcohol and Drug Abuse Patient Records regulations: The Federal rules restrict any use of the information to criminally investigate or prosecute any alcohol or drug abuse patient.[facility] HospitalIn the event this information is protected by the Federal Confidentiality of Alcohol and Drug Abuse Patient Records regulations: The Federal rules restrict any use of the information to criminally investigate or prosecute any alcohol or drug abuse patient.[facility] HospitalIn the event this information is protected by the Federal Confidentiality of Alcohol and Drug Abuse Patient Records regulations: The Federal rules restrict any use of the information to criminally investigate or prosecute any alcohol or drug abuse patient.[facility] HospitalIn the event this information is protected by the Federal Confidentiality of Alcohol and Drug Abuse Patient Records regulations: The Federal rules restrict any use of the information to criminally investigate or prosecute any alcohol or drug abuse patient.[facility] HospitalIn the event this information is protected by the Federal Confidentiality of Alcohol and Drug Abuse Patient Records regulations: The Federal rules restrict any use of the information to criminally investigate or prosecute any alcohol or drug abuse patient.[facility] HospitalIn the event this information is protected by the Federal Confidentiality of Alcohol and Drug Abuse Patient Records regulations: The Federal rules restrict any use of the information to criminally investigate or prosecute any alcohol or drug abuse patient.[facility] HospitalIn the event this information is protected by the Federal Confidentiality of Alcohol and Drug Abuse Patient Records regulations: The Federal rules restrict any use of the information to criminally investigate or prosecute any alcohol or drug abuse patient.[facility] HospitalIn the event this information is protected by the Federal Confidentiality of Alcohol and Drug Abuse Patient Records regulations: The Federal rules restrict any use of the information to criminally investigate or prosecute any alcohol or drug abuse patient.[facility] HospitalIn the event this information is protected by the Federal Confidentiality of Alcohol and Drug Abuse Patient Records regulations: The Federal rules restrict any use of the information to criminally investigate or prosecute any alcohol or drug abuse patient.[facility] HospitalIn the event this information is protected by the Federal Confidentiality of Alcohol and Drug Abuse Patient Records regulations: The Federal rules restrict any use of the information to criminally investigate or prosecute any alcohol or drug abuse patient.[facility] HospitalIn the event this information is protected by the Federal Confidentiality of Alcohol and Drug Abuse Patient Records regulations: The Federal rules restrict any use of the information to criminally investigate or prosecute any alcohol or drug abuse patient.[facility] HospitalIn the event this information is protected by the Federal Confidentiality of Alcohol and Drug Abuse Patient Records regulations: The Federal rules restrict any use of the information to criminally investigate or prosecute any alcohol or drug abuse patient.[facility] HospitalIn the event this information is protected by the Federal Confidentiality of Alcohol and Drug Abuse Patient Records regulations: The Federal rules restrict any use of the information to criminally investigate or prosecute any alcohol or drug abuse patient.[facility] HospitalIn the event this information is protected by the Federal Confidentiality of Alcohol and Drug Abuse Patient Records regulations: The Federal rules restrict any use of the information to criminally investigate or prosecute any alcohol or drug abuse patient.[facility] HospitalIn the event this information is protected by the Federal Confidentiality of Alcohol and Drug Abuse Patient Records regulations: The Federal rules restrict any use of the information to criminally investigate or prosecute any alcohol or drug abuse patient.[facility] HospitalIn the event this information is protected by the Federal Confidentiality of Alcohol and Drug Abuse Patient Records regulations: The Federal rules restrict any use of the information to criminally investigate or prosecute any alcohol or drug abuse patient.[facility] HospitalIn the event this information is protected by the Federal Confidentiality of Alcohol and Drug Abuse Patient Records regulations: The Federal rules restrict any use of the information to criminally investigate or prosecute any alcohol or drug abuse patient.[facility] HospitalIn the event this information is protected by the Federal Confidentiality of Alcohol and Drug Abuse Patient Records regulations: The Federal rules restrict any use of the information to criminally investigate or prosecute any alcohol or drug abuse patient.[facility] HospitalIn the event this information is protected by the Federal Confidentiality of Alcohol and Drug Abuse Patient Records regulations: The Federal rules restrict any use of the information to criminally investigate or prosecute any alcohol or drug abuse patient.[facility] HospitalIn the event this information is protected by the Federal Confidentiality of Alcohol and Drug Abuse Patient Records regulations: The Federal rules restrict any use of the information to criminally investigate or prosecute any alcohol or drug abuse patient.[facility] HospitalIn the event this information is protected by the Federal Confidentiality of Alcohol and Drug Abuse Patient Records regulations: The Federal rules restrict any use of the information to criminally investigate or prosecute any alcohol or drug abuse patient.[facility] HospitalIn the event this information is protected by the Federal Confidentiality of Alcohol and Drug Abuse Patient Records regulations: The Federal rules restrict any use of the information to criminally investigate or prosecute any alcohol or drug abuse patient.[facility] HospitalIn the event this information is protected by the Federal Confidentiality of Alcohol and Drug Abuse Patient Records regulations: The Federal rules restrict any use of the information to criminally investigate or prosecute any alcohol or drug abuse patient.[facility] HospitalIn the event this information is protected by the Federal Confidentiality of Alcohol and Drug Abuse Patient Records regulations: The Federal rules restrict any use of the information to criminally investigate or prosecute any alcohol or drug abuse patient.[facility] HospitalIn the event this information is protected by the Federal Confidentiality of Alcohol and Drug Abuse Patient Records regulations: The Federal rules restrict any use of the information to criminally investigate or prosecute any alcohol or drug abuse patient.[facility] HospitalIn the event this information is protected by the Federal Confidentiality of Alcohol and Drug Abuse Patient Records regulations: The Federal rules restrict any use of the information to criminally investigate or prosecute any alcohol or drug abuse patient.[facility] HospitalIn the event this information is protected by the Federal Confidentiality of Alcohol and Drug Abuse Patient Records regulations: The Federal rules restrict any use of the information to criminally investigate or prosecute any alcohol or drug abuse patient.[facility] HospitalIn the event this information is protected by the Federal Confidentiality of Alcohol and Drug Abuse Patient Records regulations: The Federal rules restrict any use of the information to criminally investigate or prosecute any alcohol or drug abuse patient.[facility] HospitalIn the event this information is protected by the Federal Confidentiality of Alcohol and Drug Abuse Patient Records regulations: The Federal rules restrict any use of the information to criminally investigate or prosecute any alcohol or drug abuse patient.[facility] HospitalIn the event this information is protected by the Federal Confidentiality of Alcohol and Drug Abuse Patient Records regulations: The Federal rules restrict any use of the information to criminally investigate or prosecute any alcohol or drug abuse patient.[facility] HospitalIn the event this information is protected by the Federal Confidentiality of Alcohol and Drug Abuse Patient Records regulations: The Federal rules restrict any use of the information to criminally investigate or prosecute any alcohol or drug abuse patient.[facility] HospitalIn the event this information is protected by the Federal Confidentiality of Alcohol and Drug Abuse Patient Records regulations: The Federal rules restrict any use of the information to criminally investigate or prosecute any alcohol or drug abuse patient.[facility] HospitalIn the event this information is protected by the Federal Confidentiality of Alcohol and Drug Abuse Patient Records regulations: The Federal rules restrict any use of the information to criminally investigate or prosecute any alcohol or drug abuse patient.[facility] HospitalIn the event this information is protected by the Federal Confidentiality of Alcohol and Drug Abuse Patient Records regulations: The Federal rules restrict any use of the information to criminally investigate or prosecute any alcohol or drug abuse patient.[facility] HospitalIn the event this information is protected by the Federal Confidentiality of Alcohol and Drug Abuse Patient Records regulations: The Federal rules restrict any use of the information to criminally investigate or prosecute any alcohol or drug abuse patient.[facility] HospitalIn the event this information is protected by the Federal Confidentiality of Alcohol and Drug Abuse Patient Records regulations: The Federal rules restrict any use of the information to criminally investigate or prosecute any alcohol or drug abuse patient.[facility] HospitalIn the event this information is protected by the Federal Confidentiality of Alcohol and Drug Abuse Patient Records regulations: The Federal rules restrict any use of the information to criminally investigate or prosecute any alcohol or drug abuse patient.[facility] HospitalIn the event this information is protected by the Federal Confidentiality of Alcohol and Drug Abuse Patient Records regulations: The Federal rules restrict any use of the information to criminally investigate or prosecute any alcohol or drug abuse patient.[facility] HospitalIn the event this information is protected by the Federal Confidentiality of Alcohol and Drug Abuse Patient Records regulations: The Federal rules restrict any use of the information to criminally investigate or prosecute any alcohol or drug abuse patient.[facility] HospitalIn the event this information is protected by the Federal Confidentiality of Alcohol and Drug Abuse Patient Records regulations: The Federal rules restrict any use of the information to criminally investigate or prosecute any alcohol or drug abuse patient.[facility] HospitalIn the event this information is protected by the Federal Confidentiality of Alcohol and Drug Abuse Patient Records regulations: The Federal rules restrict any use of the information to criminally investigate or prosecute any alcohol or drug abuse patient.[facility] HospitalIn the event this information is protected by the Federal Confidentiality of Alcohol and Drug Abuse Patient Records regulations: The Federal rules restrict any use of the information to criminally investigate or prosecute any alcohol or drug abuse patient.[facility] HospitalIn the event this information is protected by the Federal Confidentiality of Alcohol and Drug Abuse Patient Records regulations: The Federal rules restrict any use of the information to criminally investigate or prosecute any alcohol or drug abuse patient.[facility] HospitalIn the event this information is protected by the Federal Confidentiality of Alcohol and Drug Abuse Patient Records regulations: The Federal rules restrict any use of the information to criminally investigate or prosecute any alcohol or drug abuse patient.[facility] HospitalIn the event this information is protected by the Federal Confidentiality of Alcohol and Drug Abuse Patient Records regulations: The Federal rules restrict any use of the information to criminally investigate or prosecute any alcohol or drug abuse patient.[facility] HospitalIn the event this information is protected by the Federal Confidentiality of Alcohol and Drug Abuse Patient Records regulations: The Federal rules restrict any use of the information to criminally investigate or prosecute any alcohol or drug abuse patient.[facility] HospitalIn the event this information is protected by the Federal Confidentiality of Alcohol and Drug Abuse Patient Records regulations: The Federal rules restrict any use of the information to criminally investigate or prosecute any alcohol or drug abuse patient.[facility] HospitalIn the event this information is protected by the Federal Confidentiality of Alcohol and Drug Abuse Patient Records regulations: The Federal rules restrict any use of the information to criminally investigate or prosecute any alcohol or drug abuse patient.[facility] HospitalIn the event this information is protected by the Federal Confidentiality of Alcohol and Drug Abuse Patient Records regulations: The Federal rules restrict any use of the information to criminally investigate or prosecute any alcohol or drug abuse patient.[facility] HospitalIn the event this information is protected by the Federal Confidentiality of Alcohol and Drug Abuse Patient Records regulations: The Federal rules restrict any use of the information to criminally investigate or prosecute any alcohol or drug abuse patient.[facility] HospitalIn the event this information is protected by the Federal Confidentiality of Alcohol and Drug Abuse Patient Records regulations: The Federal rules restrict any use of the information to criminally investigate or prosecute any alcohol or drug abuse patient.[facility] HospitalIn the event this information is protected by the Federal Confidentiality of Alcohol and Drug Abuse Patient Records regulations: The Federal rules restrict any use of the information to criminally investigate or prosecute any alcohol or drug abuse patient.[facility] Reason for Visit (unrecogniz ed section and content) Reason Comments Established Patient Follow Up Callous Hammer Toe Specialty Diagnoses / Procedures Referred By Kaitlyn murguia Referred To Contact Podiatry / PODIATRY Diagnoses Ulcer of toe of left foot, limited to breakdown of skin (HCC) 2 week follow up Procedures OFFICE/OUTPATIENT ESTABLISHED HIGH MDM 40 MIN OFFICE/OUTPATIENT ESTABLISHED MOD MDM 30 MIN OFFICE/OUTPATIENT ESTABLISHED LOW MDM 20 MIN OFFICE/OUTPATIENT ESTABLISHED SF MDM 10 MIN WOODY EST PODI DIAB Rao Hillman [address] [place] [address] Rao Hillman [address] [place] [address] Referral ID Status Reason Start Date Expiration Date Visits Re quested Visits Authorized [id number] Closed 05/24/2023 04/01/2024 2 2 Reason Comments LESION, SKIN Reason Comments F/U 3 Month Pain right leg pain Reason Comments Other Worsening A1C, addin g medication Reason Comments Established Patient Diabetic Foot Care Reason Comments Back Pain Reason Comments ED Follow-up [facility] 08/09 for right l ower back [...] drainage. Specialty Diagnoses / Procedures [facility] Referred To Contact Ent - Otolaryngology Diagnoses Chronic sinusitis, unspecified location Procedures CONSULT TO ENT OFFICE/OUTPATIENT [facility] 60-74 MINUTES Tobi Sorto MD [address] [place] [address] Referral ID Status Reason Start Date Expiration Date V isits Requested Visits Authorized [id number] Closed PCP Requested Referral 03/15/2022 03/15/2023 1 1 Reason Comments Patient Question Reason Comments Refill Request Reason Comments Diarrhea X3 months 3-4 times a day; incontinence at night time Cough X3 months; recently had chest xray at ENT Reason Comments Spirometry Specialty Diagnoses / Procedures Referred By Kaitlyn [facility] Diagnoses Chronic cough Procedures SPIROMETRY - BASELINE AND POST DILATOR BRNCDILAT RSPSE SPMTRY PRE&POST-BRNCDILAT ADMN Podlogar, 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, 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 [address] [id number] [facility] [place] [address] [place] [address] Referral ID Status Reason Start Date Expiration Date V isits Requested Visits Authorized [id number] Closed Auto-Generate d Referral 05/01/2022 05/31/2023 1 1 Specialty Diagnoses / Procedures Referred By [facility] Referred To Contact [facility] Diagnoses Abnormal pulmonary function test Procedures LUNG VOLUMES Podlogar, 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, 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 [address] [place] [address] [facility] [place] [address] [place] [address] Referral ID Status Reason Start Date Expiration Date V isits Requested Visits Authorized [id number] Closed Auto-Generate d Referral 05/05/2022 06/04/2023 1 [...] HEAD W/CONTRAST/NONCONTRAST Rao Frey MD [address] [address] [place] [address] Referral ID Status Reason Start Date Expiration Date V isits Requested Visits Authorized [id number] Closed Auto-Generate d Referral 04/10/2022 05/10/2023 1 1 Reason Onset Date Comments Refill Request 02/26/2023 Reason Comments Med Change Request Reason Comments Established Patient Follow Up Diabetic Foot Ulcer Pain Specialty Diagnoses / Procedures Referred By Kaitlyn t Referred To Contact Podiatry / PODIATRY Diagnoses AETNA MEDICARE / AETNA MEDICARE HMO Procedures WOODY EST PODI Rao Hillman [address] [place] [address] Rao Hillman [address] [place] [address] Referral ID Status Reason Start Date Expiration Date Visits Re quested Visits Authorized [id number] Closed 05/10/2023 04/01/2024 1 1 Reason Onset Date Comments Refill Request 04/09/2023 see rx notes Reason Comments Sinus Problem Nasal congestion and cough x2 weeks Reason Comments 6 mo follow up Reason Comments Follow Up Established Patient Callous Referral ID Status Reason Start Date Expiration Date Visits Re quested Visits Authorized [id number] Closed 05/24/2023 04/01/2024 1 1 Reason Onset Date Comments Refill Request 08/06/2023 Reason Comments Cough Cough lingering and keeps patient up at HS Reason Onset Date Comments Refill Request 08/13/2023 Specialty Diagnoses / Procedures Referred By Contac t Referred [facility] Diagnoses Persistent cough Procedures SPIROMETRY - BASELINE AND POST DILATOR BRNCDILAT RSPSE SPMTRY PRE&POST-BRNCDILAT ADMTobi Vuong MD [address] [place] [address] [address] Referral ID Status Reason Start Date Expiration Date V isits Requested Visits Authorized [id number] Closed Auto-Generate d Referral 08/17/2023 09/15/2024 1 1 Specialty Diagnoses / Procedures Referred By Contac t Referred [facility] Diagnoses Restrictive lung disease Persistent cough Procedures NITRIC OXIDE, EXHALED NITRIC OXIDE GAS DETERMINATION Tobi Sorto MD [address] [place] [address] [address] Referral ID Status Reason Start Date Expiration Date V isits Requested Visits Authorized [id number] Closed Auto-Generate d Referral 09/03/2023 10/02/2024 1 [...] Procedures CONSULT TO PULM/CRITICAL CARE OFFICE/OUTPATIENT [facility] 60 MINUTES Tobi Sorto MD [address] [place] [address] [facility] [address] [place] [address] Referral ID Status Reason Start Date Expiration Date V isits Requested Visits Authorized [id number] Closed PCP Requested Referral 09/10/2023 04/01/2024 1 [...] US Specialty Diagnoses / Procedures Referred By Kaitlyn t Referred To Contact [facility] Diagnoses Stage 3a chronic kidney disease (HCC) Procedures US KIDNEY/BLADDER US RETROPERITONEAL REAL TIME W/IMAGE COMPLETE Tobi Sorto MD [address] [place] [address] Phone: tel: fax: [place] [address] Referral ID Status Reason Start Date Expiration Date V isits Requested Visits Authorized [id number] Closed Auto-Generate d Referral 07/09/2024 08/08/2025 1 [...] Care Teams (unrecognized sec tion and content) Delivery Man Relationship Specialty Start Date End Date Tobi Sorto MD [address] [place] [address] PCP - General Family Practice 08/22/18 Delivery Man Relationship Specialty Start Date End Date Tobi Sorto MD [address] [place] [address] PCP - General Family Practice 08/22/18 Delivery Man Relationship Specialty Start Date End Date Tobi Sorto MD [address] [place] [address] PCP - General Family Practice 08/22/18 Delivery Man Relationship Specialty Start Date End Date Tobi Sorto MD [address] [place] [address] PCP - General Family Practice 08/22/18 Delivery Man Relationship Specialty Start Date End Date Tobi Sorto MD [address] [place] [address] PCP - General Family Practice 08/22/18 Delivery Man Relationship Specialty Start Date End Date Tobi Sorto MD [address] [place] [address] PCP - General Family Practice 08/22/18 Delivery Man Relationship Specialty Start Date End Date Tobi Sorto MD [address] [place] [address] PCP - General Family Medicine 08/22/18 Delivery Man Relationship Specialty Start Date End Date Tobi Sorto MD [address] [place] [address] PCP - General Family Medicine 08/22/18 Delivery Man Relationship Specialty Start Date End Date Tobi Sorto MD [address] [place] [address] PCP - General Family Medicine 08/22/18 Delivery Man Relationship Specialty Start Date End Date Tobi Sorto MD [address] [place] [address] PCP - General Family Medicine 08/22/18 Delivery Man Relationship Specialty Start Date End Date Tobi Sorto MD [address] [place] [address] PCP - General Family Medicine 08/22/18 Delivery Man Relationship Specialty Start Date End Date Tobi Sorto MD [address] [place] [address] PCP - General Family Medicine 08/22/18 Delivery Man Relationship Specialty Start Date End Date Tobi Sorto MD [address] [place] [address] PCP - General Family Medicine 08/22/18 Delivery Man Relationship Specialty Start Date End Date Tobi Sorto MD [address] [place] [address] PCP - General Family Medicine 08/22/18 Delivery Man Relationship Specialty Start Date End Date Tobi Sorto MD [address] [place] [address] PCP - General Family Medicine 08/22/18 Delivery Man Relationship Specialty Start Date End Date Tobi Sorto MD [address] [place] [address] PCP - General Family Medicine 08/22/18 Delivery Man Relationship Specialty Start Date End Date Tobi Sorto MD [address] [place] [address] PCP - General Family Medicine 08/22/18 Delivery Man Relationship Specialty Start Date End Date Tobi Sorto MD [address] [place] [address] PCP - General Family Medicine 08/22/18 Delivery Man Relationship Specialty Start Date End Date Tobi Sorto MD [address] [place] [address] PCP - General Family Medicine 08/22/18 Delivery Man Relationship Specialty Start Date End Date Tobi Sorto MD [address] [place] [address] PCP - General Family Medicine 08/22/18 Delivery Man Relationship Specialty Start Date End Date Tobi Sorto MD [address] [place] [address] PCP - General Family Medicine 08/22/18 Delivery Man Relationship Specialty Start Date End Date Tobi Sorto MD [address] [place] [address] PCP - General Family Medicine 08/22/18 Delivery Man Relationship Specialty Start Date End Date Tobi Sorto MD [address] [place] [address] PCP - General Family Medicine 08/22/18 Delivery Man Relationship Specialty Start Date End Date Tobi Sorto MD [address] [place] [address] PCP - General Family Medicine 08/22/18 Delivery Man Relationship Specialty Start Date End Date Tobi Sorto MD [address] [place] [address] PCP - General Family Medicine 08/22/18 Delivery Man Relationship Specialty Start Date End Date Tobi Sorto MD [address] [place] [address] PCP - General Family Medicine 08/22/18 Delivery Man Relationship Specialty Start Date End Date Tobi Sorto MD [address] [place] [address] PCP - General Family Medicine 08/22/18 Delivery Man Relationship Specialty Start Date End Date Tobi Sorto MD [address] [place] [address] PCP - General Family Medicine 08/22/18 Delivery Man Relationship Specialty Start Date End Date Tobi Sorto MD [address] [place] [address] PCP - General Family Medicine 08/22/18 Delivery Man Relationship Specialty Start Date End Date Tobi Sorto MD [address] [place] [address] PCP - General Family Medicine 08/22/18 Delivery Man Relationship Specialty Start Date End Date Tobi Sorto MD [address] [place] [address] PCP - General Family Medicine 08/22/18 Delivery Man Relationship Specialty Start Date End Date Tobi Sorto MD [address] [place] [address] PCP - General Family Medicine 08/22/18 Delivery Man Relationship Specialty Start Date End Date Tobi Sorto MD [address] [place] [address] PCP - General Family Medicine 08/22/18 Delivery Man Relationship Specialty Start Date End Date Tobi Sorto MD [address] [place] [address] PCP - General Family Medicine 08/22/18 Delivery Man Relationship Specialty Start Date End Date Tobi Sorto MD [address] [place] [address] PCP - General Family Medicine 08/22/18 Delivery Man Relationship Specialty Start Date End Date Tobi Sorto MD [address] [place] [address] PCP - General Family Medicine 08/22/18 Delivery Man Relationship Specialty Start Date End Date Tobi Sorto MD [address] [place] [address] PCP - General Family Medicine 08/22/18 Delivery Man Relationship Specialty Start Date End Date Tobi Sorto MD [address] [place] [address] PCP - General Family Medicine 08/22/18 Delivery Man Relationship Specialty Start Date End Date Tobi Sorto MD [address] [place] [address] PCP - General Family Medicine 08/22/18 Delivery Man Relationship Specialty Start Date End Date Tobi Sorto MD [address] [place] [address] PCP - General Family Medicine 08/22/18 Delivery Man Relationship Specialty Start Date End Date Tobi Sorto MD [address] [place] [address] PCP - General Family Medicine 08/22/18 Delivery Man Relationship Specialty Start Date End Date Tobi Sorto MD [address] [place] [address] PCP - General Family Medicine 08/22/18 Delivery Man Relationship Specialty Start Date End Date Tobi Sorto MD [address] [place] [address] PCP - General Family Medicine 08/22/18 Delivery Man Relationship Specialty Start Date End Date Tobi Sorto MD [address] [place] [address] PCP - General Family Medicine 08/22/18 Delivery Man Relationship Specialty Start Date End Date Tobi Sorto MD [address] [place] [address] PCP - General Family Medicine 08/22/18 Delivery Man Relationship Specialty Start Date End Date Tobi Sorto MD [address] [place] [address] PCP - General Family Medicine 08/22/18 Delivery Man Relationship Specialty Start Date End Date Tobi Sorto MD [address] [place] [address] PCP - General Family Medicine 08/22/18 Delivery Man Relationship Specialty Start Date End Date Tobi Sorto MD [address] [place] [address] PCP - General Family Medicine 08/22/18 Delivery Man Relationship Specialty Start Date End Date Tobi Sorto MD [address] [place] [address] PCP - General Family Medicine 08/22/18 Delivery Man Relationship Specialty Start Date End Date Tobi Sorto MD [address] [place] [address] PCP - General Family Medicine 08/22/18 Delivery Man Relationship Specialty Start Date End Date Tobi Sorto MD [address] [place] [address] PCP - General Family Medicine 08/22/18 Delivery Man Relationship Specialty Start Date End Date Tobi Sorto MD [address] [place] [address] PCP - General Family Medicine 08/22/18 Delivery Man Relationship Specialty Start Date End Date Tobi Sorto MD [address] [facility] [address] PCP - General Family Medicine 08/22/18 Delivery Man Relationship Specialty Start Date End Date Tobi Sorto MD [address] [place] [address] PCP - General Family Medicine 08/22/18 Delivery Man Relationship Specialty Start Date End Date Tobi Sorto MD [address] [place] [address] PCP - General Family Medicine 08/22/18 Delivery Man Relationship Specialty Start Date End Date Tobi Sorto MD [address] [place] [address] PCP - General Family Medicine 08/22/18 Delivery Man Relationship Specialty Start Date End Date Tobi Sorto MD [address] [facility] [address] PCP - General Family Medicine 08/22/18 Delivery Man Relationship Specialty Start Date End Date Tobi Sorto MD [address] [place] [address] PCP - General Family Medicine 08/22/18 Delivery Man Relationship Specialty Start Date End Date Tobi Sorto MD [address] [place] [address] PCP - General Family Medicine 08/22/18 Delivery Man Relationship Specialty Start Date End Date Tobi Sorto MD [address] [place] [address] PCP - General Family Medicine 08/22/18 PodlogAudrey kwan APRN.PRESSED OR BLOWN GLASS WORKER [address] [place] [address] Administration Physician Family Medicine 03/08/24 Delivery Man Relationship Specialty Start Date End Date Tobi Sorto MD [address] [place] [address] PCP - General Family Medicine 08/22/18 PodlogAudrey kwan APRN.PRESSED OR BLOWN GLASS WORKER [address] [place] [address] Administration Physician Family Medicine 03/08/24 Delivery Man Relationship Specialty Start Date End Date Tobi Sorto MD [address] [place] [address] PCP - General Family Medicine 08/22/18 PodlogarAudrey APRN.PRESSED OR BLOWN GLASS WORKER [address] [place] [address] Administration Physician Family Medicine 03/08/24 Delivery Man Relationship Specialty Start Date End Date Tobi Sorto MD [address] [place] [address] PCP - General Family Medicine 08/22/18 PodlogarAudrey APRN.PRESSED OR BLOWN GLASS WORKER [address] [facility] [address] Administration Physician Family Medicine 03/08/24 Delivery Man Relationship Specialty Start Date End Date Tobi Sorto MD [address] [place] [address] PCP - General Family Medicine 08/22/18 PodlogarAudrey, 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 [address] [place] [address] Administration Physician Family Medicine 03/08/24 Delivery Man Relationship Specialty Start Date End Date Tobi Sorto MD [address] [place] [address] PCP - General Family Medicine 08/22/18 Podlogar, Audrey 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 [address] [place] [address] Administration Physician Family Medicine 03/08/24 Delivery Man Relationship Specialty Start Date End Date Tobi Sorto MD [address] [place] [address] PCP - General Family Medicine 08/22/18 PodlogAudrey kwan APRN.PRESSED OR BLOWN GLASS WORKER [address] [place] [address] Administration Physician Family Medicine 03/08/24 Delivery Man Relationship Specialty Start Date End Date Tobi Sorto MD [address] [place] [address] PCP - General Family Medicine 08/22/18 PodlogAudrey kwan APRN.PRESSED OR BLOWN GLASS WORKER [address] [place] [address] Administration Physician Family Medicine 03/08/24 Ny Diez APRN.PRESSED OR BLOWN GLASS WORKER [address] [place] [address] Administration Physician Family Medicine 06/23/24 Delivery Man Relationship Specialty Start Date End Date Tobi Sorto MD [address] [place] [address] PCP - General Family Medicine 08/22/18 PodlogarAudrey APRN.PRESSED OR BLOWN GLASS WORKER [address] [place] [address] Administration Physician Family Medicine 03/08/24 Ny Diez APRN.PRESSED OR BLOWN GLASS WORKER [address] [place] [address] Administration Physician Family Medicine 06/23/24 Delivery Man Relationship Specialty Start Date End Date Tobi Sorto MD [address] [place] [address] PCP - General Family Medicine 08/22/18 PodlogarAudrey APRN.PRESSED OR BLOWN GLASS WORKER [address] [place] [address] Administration Physician Family Medicine 03/08/24 Ny Diez APRN.PRESSED OR BLOWN GLASS WORKER [address] [place] [address] Administration Physician Family Medicine 06/23/24 Delivery Man Relationship Specialty Start Date End Date Tobi Sorto MD [address] [place] [address] PCP - General Family Medicine 08/22/18 PodlogarAudrey APRN.PRESSED OR BLOWN GLASS WORKER [address] [place] [address] Administration Physician Family Medicine 03/08/24 Ny Diez APRN.PRESSED OR BLOWN GLASS WORKER [address] [place] [address] Administration Physician Family Medicine 06/13/24 06/22/24 Ny Diez APRN.PRESSED OR BLOWN GLASS WORKER [address] [place] [address] Administration Physician Family Medicine 06/23/24 Delivery Man Relationship Specialty Start Date End Date Tobi Sorto MD [address] [place] [address] PCP - General Family Medicine 08/22/18 PodlogarAudrey 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 [address] [place], [place] [address] Administration Physician Family Medicine 03/08/24 Ny Diez APRN.PRESSED OR BLOWN GLASS WORKER [address] [place] [address] [facility]/23/24 Delivery Man Relationship Specialty Start Date End Date Tobi Sorto MD [address] [place] [address] PCP - General Family Medicine 08/22/18 PodlogarAudrey APRN.PRESSED OR BLOWN GLASS WORKER [address] [place] [address] [facility] 03/08/24 Ny Diez 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 [address] [place] [address] [facility] 06/23/24 Delivery Man Relationship Specialty Start Date End Date Tobi Sorto MD [address] [place] [address] PCP - General Family Medicine 08/22/18 PodlogarAudrey 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 [address] [place] [address] Administration Physician Family Medicine 03/08/24 Ny Diez 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 [address] [place] [address] [facility] Medicine 06/23/24 Delivery Man Relationship Specialty Start Date End Date Tobi Sorto MD [address] [place] [address] PCP - General Family Medicine 08/22/18 PodlogarAudrey APRN.PRESSED OR BLOWN GLASS WORKER [address] [place] [address] Administration Physician Family Medicine 03/08/24 Ny Diez APRN.PRESSED OR BLOWN GLASS WORKER [address] [place], [place] [address] [facility] 06/23/24 Delivery Man Relationship Specialty Start Date End Date Tobi Sorto MD [address] [place] [address] PCP - General Family Medicine 08/22/18 Podlogar, Audrey 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 [address] [place] [address] Administration Physician Family Medicine 03/08/24 Ny Diez 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 [address] [place] [address] [facility] 06/23/24 Delivery Man Relationship Specialty Start Date End Date Tobi Sorto MD [address] [place] [address] PCP - General Family Medicine 08/22/18 PodlogarAudrey 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 [address] [facility] [address] Administration Physician Family Medicine 03/08/24 Ny Diez 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 [address] [place] [address] [facility] Medicine 06/23/24 Delivery Man Relationship Specialty Start Date End Date Tobi Sorto MD [address] [facility] [address] PCP - General Family Medicine 08/22/18 Podlogar, Audrey, 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 [address] [place] [address] Administration Physician Family Medicine 03/08/24 Delivery Man Relationship Specialty Start Date End Date Tobi Sorto MD [address] [place] [address] PCP - General Family Medicine 08/22/18 Podlogar, Audrey, 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 [address] [place] [address] Administration Physician Family Medicine 03/08/24 Delivery Man Relationship Specialty Start Date End Date Tobi Sorto MD [address] [place] [address] PCP - General Family Medicine 08/22/18 Podlogar, Audrey, 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 [address] [place] [address] Administration Physician Family Medicine 03/08/24 Ny Diez 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 [address] [place] [address] Administration Physician Family Medicine 09/11/24 Delivery Man Relationship Specialty Start Date End Date Tobi Sorto MD [address] [place] [address] PCP - General Family Medicine 08/22/18 Podlogar, Audrey, 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 [address] [place] [address] Administration Physician Family Medicine 03/08/24 Ny Diez APRN.PRESSED OR BLOWN GLASS WORKER [address] [place] [address] Administration Physician Family Medicine 06/23/24 08/17/24 Ny Diez APRN.PRESSED OR BLOWN GLASS WORKER [address] [place] [address] Administration Physician Family Medicine 09/11/24 Delivery Man Relationship Specialty Start Date End Date Tobi Sorto MD [address] [place] [address] PCP - General Family Medicine 08/22/18 PodlogarAudrey APRN.PRESSED OR BLOWN GLASS WORKER [address] [facility] [address] Administration Physician Family Medicine 03/08/24 Ny Diez APRN.PRESSED OR BLOWN GLASS WORKER [address] [place] [address] Administration Physician Family Medicine 09/11/24 Delivery Man Relationship Specialty Start Date End Date Tobi Sorto MD [address] [place] [address] PCP - General Family Medicine 08/22/18 Audrey Packer APRN.PRESSED OR BLOWN GLASS WORKER [address] [place] [address] Administration Physician Family Medicine 03/08/24 Ny Diez APRN.PRESSED OR BLOWN GLASS WORKER [address] [place] [address] [facility] Delivery Man Relationship Specialty Start Date End Date Tobi Sorto MD [address] [place] [address] PCP - General Family Medicine 08/22/18 Podlogar, Audrey, 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 [address] [place] [address] Administration Physician Family Medicine 03/08/24 Ny Diez APRN.PRESSED OR BLOWN GLASS WORKER [address] [place] [address] [facility] 09/11/24 Delivery Man Relationship Specialty Start Date End Date Tobi Sorto MD [address] [place] [address] PCP - General Family Medicine 08/22/18 Podlogar, Audrey, 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 [address] [place] [address] Administration Physician Family Medicine 03/08/24 Ny Diez 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 [address] [place] [address] [facility] Medicine 09/11/24 Delivery Man Relationship Specialty Start Date End Date Tobi Sorto MD [address] [place] [address] PCP - General Family Medicine 08/22/18 Podlogar, Audrey, 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 [address] [place] [address] Administration Physician Family Medicine 03/08/24 Ny Diez 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 [address] [place] [address] [facility] 09/11/24 Delivery Man Relationship Specialty Start Date End Date Tobi Sorto MD [address] [place] [address] PCP - General Family Medicine 08/22/18 PodlogarAudrey, 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 [address] [place] [address] [facility] Medicine 03/08/24 Ny Diez 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 [address] [place] [address] [facility] 09/11/24 Delivery Man Relationship Specialty Start Date End Date Tobi Sorto MD [address] [place] [address] PCP - General Family Medicine 08/22/18 PodlogarAudrey, 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 [address] [place] [address] [facility] Family Medicine 03/08/24 Ny Diez 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 [address] [place] [address] [facility] Medicine 09/11/24 Delivery Man Relationship Specialty Start Date End Date Tobi Sorto MD [address] [place] [address] PCP - General Family Medicine 08/22/18 PodlogAudrey kwan APRN.PRESSED [employer]OWN [employer] WORKER [address] [place], [place] [id number] [facility] 03/08/24 Ny Diez APRN.PRESSED OR BLOWN [employer]ASS WORKER [address] [place] [address] [facility] 09/11/24 FOR RECORDS PERTAINING TO PATIENTS WHO [...] BE BASED ON THE PRIMARY CLINICAL RECORDS. [facility] CPM [employer] [facility]. provides no warranty or guarantee of the accuracy or completeness of information in this document.
[2024-10-18 23:00] VITALS: BP 156/95; PULSE 75; RESP 18; TEMP 36.9; O2SAT 95
[2024-10-18 23:23] VITALS: BP 155/95; PULSE 73; RESP 16; TEMP 36.8; O2SAT 96
--- OUTSIDE RECORDS SUMMARY | 2024-10-18 23:28 | XMS RPT_ITS | CCD ---
Author Organization [facility] Care Team Providers Care Caul Dresser Name Role Phone Tobi Sorto MD Primary Care Provider ALONDRA BRODERICK Referring Unavailable TOBI SORTO Primary Care Unavailab Tobi Olguin MD Primary Care Provider Podlogar HAT LINING BLOCKER.Audrey PYLE Unavailable Knoble HAT LINING BLOCKER.Ny PYLE Unavailable [place]le HAT LINING BLOCKER.Ny PYLE Unavailable [place] HAT LINING BLOCKER.Ny PYLE Unavailable [place]le HAT LINING BLOCKER.Ny PYLE Unavailable TOBI SORTO Primary Care Unavailab [...] Unavailab le PODLOGAR, AUDREY Attending Unavailable TOBI SOTRO Primary Care Unavailab le PODLOGAR, AUDREY Attending [...] Drug Class(es) Dates Sig (Normalized) Sig (Original) [id number] 200 actuat albuterol 0.09 mg/actuat metered dose [...] Comment on above: Take 1 tablet by [facility] once daily. lactobacillus acidophilus 460 mg oral [...] 2 diabetes mellitus with microalbuminuria, unspecified whether mcc insulin use Take 1 tablet by mouth [...] oxana twice daily. Take with food. nystatin [id number] unt/ml oral suspension (20 sources) Polyene Antifungal [...] release oral tablet (20 sources) Blood Viscosity Director Retirement Start: End: take 1 tablet by mouth [...] Office Visit (PODIWS ) -------- JOSHUA ESTES ([id number]) 1955 M Date Time Provider Department 10/14/24 [...] a vascular evaluation. The preferred location is [facility] (with Dr. Jean), but you may also use [facility] or [facility] if [facility] is not feasible, but this provider does not do inpatient care at [place] or [place]. - If you cannot get to the [...] present to ED. Patient verbalized understanding. NOEMY eBrry Matthew 10/14/2024 1:04 PM Signed Subjective Russ Sharp Franklyn is a 69-year-old male with a history of diabetes and vascular disease, presenting for evaluation of left great toe cellulitis. Left Great Toe Cellulitis: - Onset last week after returning from vacation. - Recent vacation involved walking barefoot on sand in [place], [place], and [place], [place]. - Noticed swelling and redness in the left great toe upon returning home. - Denies known trauma or blistering from hot sand. - History of a sore on the left great toe, appeared healed by September 18, with only a little dryness remaining - Thjaxox-jz-gxr noted a hole in the bottom of [...] 2 gabapentin (more content not included)... Normal [facility] XR TOE 3V AP/LAT/OBL LTon [...] MRI may BE obtained as clinically indicated. Nail Making Machine Tender: [facility] Transcribe Date/Time: Oct 14 2024 9:49A Dictated by : ALEXANDREA BELLE MD This examination was interpreted and the report reviewed and electronically signed by: ALEXANDREA BELEL MD on Oct 14 2024 9:59AM EST [id number] Normal [facility] XR Toes - left 3 Viewson IMPRESSION: Findings suspicious for developing osteomyelitis in the first distal phalanx as described. Further evaluation with MRI may BE obtained as clinically indicated. Nail Making Machine Tender: [facility] Transcribe Date/Time: Oct 14 2024 9:49A Dictated [...] mild hypertrophic change. DIVISION OF RADIOLOGY Provider, [facility] - 10/14/2024 * * *Final Report* * [...] MRI may BE obtained as clinically indicated. Nail Making Machine Tender: [facility] Transcribe Date/Time: Oct 14 2024 9:49A Dictated by : ALEXANDREA BELLE MD This examination was interpreted and the report reviewed and electronically signed by: ALEXANDREA BELLE MD on Oct 14 2024 9:59AM EST [facility] Radiology Study observation (narrative) [facility] XR Toes - left 3 ViewsOrdere d By: Ccf Provider on 10-14-2024 [facility] CNOVon 09-18-2024 CNOV Office Visit (PODIWS ) -------- JOSHUA ESTES ([id number]) 1955 M Date Time Provider Department 09/18/24 [...] to feet daily; recently ran out of [employer] and used a generic brand with less [...] Reported on (more content not included)... Normal [facility] HOME SLEEP APNEA TEST (HSAT) on 09-18-[address] [facility] ep Disorders [address], [address], [place] [address] ; Home Sleep Apnea Test (HSAT) Study Report Name: JOSHUA ESTES Date of Study: 09/18/2024 CC#: [id number] Age: 69 (: 1955) ESS: N/A Neck [...] unattended Type III, minimum of 4 parameters (34925) Procedure: This study was performed using a Type III ambulatory PSG device and was unattended. The patient was instructed on proper use of the device by a registered electrical engineering technologist. The monitored parameters included heart rate, [...] PM) SLEEP LAB No Panel Informationon 09-18 [facility] POLYSOMNOGRAM (PSG)/HOME SLE EP APNEA TEST (HSAT)on 09-18-2024 POLYSOMNOGRAM (PSG)/HOME SLEEP APNEA TEST (HSAT) [facility] at [address], [address], [place] [address] ; Home Sleep Apnea Test (HSAT) Study Report Name: JOSHUA ESTES Date of Study: 09/18/2024 CC#: [id number] Age: 69 (: 1955) ESS: N/A Neck [...] unattended Type III, minimum of 4 parameters (92195) Procedure: This study was performed using a Type III ambulatory PSG device and was unattended. The patient was instructed on proper use of the device by a registered electrical engineering technologist. The monitored parameters included heart rate, [...] ТАТЬЯНА DAVID MD (09/25/2024 1:04:34 PM) Normal [facility] XR Foot - left AP and Latera l and obliqueon 09-17-2024 IMPRESSION: ULCER OF THE DISTAL PHALANX OF THE GREAT TOE ON THE LEFT, NO CHANGE COMPARED TO PREVIOUS EXAM NO RADIOGRAPHIC EVIDENCE OF OSTEOMYELITIS. Nail Making Machine Tender: [facility] Transcribe Date/Time: Sep 17 2024 2:39P Dictated by : ARUN BRYANT MD This examination was interpreted and the report reviewed and electronically signed by: ARUN BRYANT MD on Sep 17 2024 2:44PM [facility] DIVISION OF RADIOLOGY * * *Final Report* [...] foot. DIVISION OF RADIOLOGY Provider, Swapna Ruano [facility] - 09/17/2024 * * *Final Report* * [...] PREVIOUS EXAM NO RADIOGRAPHIC EVIDENCE OF OSTEOMYELITIS. 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 Transcribe Date/Time: Sep 17 2024 2:39P Dictated by : ARUN BRYANT MD This examination was interpreted and the report reviewed and electronically signed by: ARUN BRYANT MD on Sep 17 2024 2:44PM [facility] XR Foot - left AP and Latera l and obliqueOrdered By: Swapna Provider on 09-17-2024 [facility] CNOVon 09-11-2024 CNOV Office Visit (PODIWS ) -------- JOSHUA ESTES ([id number]) 1955 M Date Time Provider Department 09/11/24 [...] Silver Gel has been prescribed at [facility] - apply to the left big toe ulcer once daily. - Nadege 40 Urea Cream has been prescribed at [facility] - apply to callus areas to soften [...] (or decreased sensation in your feet) a chef de froid should always cut your toenails. Be Careful [...] Do n (more content not included)... Normal [facility] XR FOOT 3V AP/LAT/OBL LTon [...] PREVIOUS EXAM NO RADIOGRAPHIC EVIDENCE OF OSTEOMYELITIS. 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 Transcribe Date/Time: Sep 17 2024 2:39P Dictated by : ARUN BRYANT MD This examination was interpreted and the report reviewed and electronically signed by: ARUN BRYANT MD on Sep 17 2024 2:44PM EST [id number] Normal [facility] XR Foot - left AP and Latera l and obliqueon 09-11-2024 Radiology Study observation (narrative) [facility] CNOVon 09-04-2024 CNOV Office Visit (REENA ) -------- JOSHUA ESTES ([id number]) 1955 M Date Time Provider Department 09/04/24 8:00 AM AUDREY PACKER During your visit today, we recorded the following information about you: Pulse Respiration Blood pressure Weight 70/minute 18/minute 136/82 109.9 kg Audrey Packer APRN.CNP 09/04/2024 8:15 AM Signed 09/04/2024 Patient presents with: Follow Up: Facial Cellulitis, patient states symptoms improving with the antibiotic Recording using [employer] software for draft documentation of the visit was discussed with the patient/authorized patient financial representative; all questions welcomed and answered. Patient/authorized patient financial representative agreed to proceed SUBJECTIVE: This is [...] Vital sign (more content not included)... Normal [facility] CBC W Auto Differential pane l (Bld)on 09-01-2024 Basophils (Bld) [#/Vol] 0.05 10*3/uL [facility] Basophils/100 WBC (Bld) 0.7 % [facility] Differential cell count method Nom (Bld) Auto [facility] Eosinophils (Bld) [#/Vol] 0.42 10*3/uL [facility] Eosinophils/100 WBC (Bld) 5.6 % [facility] Erythrocyte distribution width (RBC) [Ratio] 17.7 % High 11.5 - 15.0 % [facility] Hematocrit (Bld) [Volume fraction] 55.5 % High 39.0 - 51.0 % [facility] Hemoglobin (Bld) [Mass/Vol] 17.9 g/dL High 13.0 - 17.0 g/dL [facility] Immature granulocytes (Bld) [#/Vol] 0.04 10*3/uL [facility] Immature granulocytes/100 WBC (Bld) 0.5 % [facility] Interpretation and review of laboratory results Abnormal [facility] Lymphocytes (Bld) [#/Vol] 1.5 10*3/uL [facility] Lymphocytes/100 WBC (Bld) 19.8 % [facility] MCH (RBC) [Entitic mass] 31.2 pg 26.0 - 34.0 pg [facility] MCHC (RBC) [Mass/Vol] 32.3 g/dL 30.5 - 36.0 g/dL [facility] MCV (RBC) [Entitic vol] 96.9 fL 80.0 - 100.0 fL [facility] Monocytes (Bld) [#/Vol] 0.72 10*3/uL [facility] Monocytes/100 WBC (Bld) 9.5 % [facility] Neutrophils (Bld) [#/Vol] 4.83 10*3/uL [facility] Neutrophils/100 WBC (Bld) 63.9 % [facility] Nucleated RBC (Bld) [#/Vol] [facility] Nucleated RBC/100 WBC (Bld) [Ratio] 0 % /100 WBC [facility] Platelet mean volume (Bld) [Entitic vol] 12 fL 9.0 - 12.7 fL [facility] Platelets (Bld) [#/Vol] 174 10*3/uL [facility] RBC (Bld) [#/Vol] 5.73 10*6/uL 4.20 - 6.0 0 m/uL [facility] WBC (Bld) [#/Vol] 7.56 10*3/uL [facility] Basophils (Bld) [#/Vol] 0.05 10*3/uL Normal <0.11 [facility] Comment on above: Order Comment: Speci men Type: BLOOD SPECIMEN Ordering Facility: [facility] Address: [address] [place] [address] Performed By: #### 5 5454-3 #### [facility] CLIA [id number] [address] [place] [address] [place] Basophils/100 WBC (Bld) 0.7 % Normal [facility] Comment on above: Order Comment: Speci men Type: BLOOD SPECIMEN Ordering Facility: [facility] Address: [address] [place] [address] Performed By: #### 5 5454-3 #### [facility] CLIA [id number] [address] [place] [address] [place] Differential cell count method Nom (Bld) Auto Normal [facility] Comment on above: Order Comment: Speci men Type: BLOOD SPECIMEN Ordering Facility: [facility] Address: [address] [place] [address] Performed By: #### 5 5454-3 #### [facility] CLIA [id number] [address] [place] [address] [place] Eosinophils (Bld) [#/Vol] 0.42 10*3/uL Normal <0.46 [facility] Comment on above: Order Comment: Speci men Type: BLOOD SPECIMEN Ordering Facility: [facility] Address: [address] [place] [address] Performed By: #### 5 5454-3 #### [facility] CLIA [id number] [address] [place] [address] [place] Eosinophils/100 WBC (Bld) 5.6 % Normal [facility] Comment on above: Order Comment: Speci men Type: BLOOD SPECIMEN Ordering Facility: [facility] Address: [address] [place] [address] Performed By: #### 5 5454-3 #### [facility] CLIA [id number] [address] [place] [address] [place] Erythrocyte distribution width (RBC) [Ratio] 17.7 % High 11.5-15.0 [facility] Comment on above: Order Comment: Speci men Type: BLOOD SPECIMEN Ordering Facility: [facility] Address: [address] [place] [address] Performed By: #### 5 5454-3 #### [facility] CLIA [id number] [address] [place] [address] [place] Hematocrit (Bld) [Volume fraction] 55.5 % High 39.0-51.0 [facility] Comment on above: Order Comment: Speci men Type: BLOOD SPECIMEN Ordering Facility: [facility] Address: [address] [place] [address] Performed By: #### 5 5454-3 #### [facility] CLIA [id number] [address] [place] [address] [place] Hemoglobin (Bld) [Mass/Vol] 17.9 g/dL High 13.0-17.0 [facility] Comment on above: Order Comment: Speci men Type: BLOOD SPECIMEN Ordering Facility: [facility] Address: [address] [place] [address] Performed By: #### 5 5454-3 #### [facility] CLIA [id number] [address] [place] [address] [place] Immature granulocytes (Bld) [#/Vol] 0.04 10*3/uL Normal <0.10 [facility] Comment on above: Order Comment: Speci men Type: BLOOD SPECIMEN Ordering Facility: [facility] Address: [address] [place] [address] Performed By: #### 5 5454-3 #### [facility] CLIA [id number] [address] [place] [address] [place] Immature granulocytes/100 WBC (Bld) 0.5 % Normal [facility] Comment on above: Order Comment: Speci men Type: BLOOD SPECIMEN Ordering Facility: [facility] Address: [address] [place] [address] Performed By: #### 5 5454-3 #### [facility] CLIA [id number] [address] [place] [address] [place] Lymphocytes (Bld) [#/Vol] 1.50 10*3/uL Normal 1.00-4.00 [facility] Comment on above: Order Comment: Speci men Type: BLOOD SPECIMEN Ordering Facility: [facility] Address: [address] [place] [address] Performed By: #### 5 5454-3 #### [facility] CLIA [id number] [address] [place] [address] [place] Lymphocytes/100 WBC (Bld) 19.8 % Normal [facility] Comment on above: Order Comment: Speci men Type: BLOOD SPECIMEN Ordering Facility: [facility] Address: [address] [place] [address] Performed By: #### 5 5454-3 #### [facility] CLIA [id number] [address] [place] [address] [place] MCH (RBC) [Entitic mass] 31.2 pg Normal 26.0-34.0 [facility] Comment on above: Order Comment: Speci men Type: BLOOD SPECIMEN Ordering Facility: [facility] Address: [address] [place] [address] Performed By: #### 5 5454-3 #### [facility] CLIA [id number] [address] [place] [address] [place] MCHC (RBC) [Mass/Vol] 32.3 g/dL Normal 30.5-36.0 [facility] Comment on above: Order Comment: Speci men Type: BLOOD SPECIMEN Ordering Facility: [facility] Address: [address] [place] [address] Performed By: #### 5 5454-3 #### [facility] CLIA [id number] [address] [place] [address] [place] MCV (RBC) [Entitic vol] 96.9 fL Normal 80.0-100.0 [facility] Comment on above: Order Comment: Speci men Type: BLOOD SPECIMEN Ordering Facility: [facility] Address: [address] [place] [address] Performed By: #### 5 5454-3 #### [facility] CLIA [id number] [address] [place] [address] [place] Monocytes (Bld) [#/Vol] 0.72 10*3/uL Normal <0.87 [facility] Comment on above: Order Comment: Speci men Type: BLOOD SPECIMEN Ordering Facility: [facility] Address: [address] [place] [address] Performed By: #### 5 5454-3 #### [facility] CLIA [id number] [address] [place] [address] [place] Monocytes/100 WBC (Bld) 9.5 % Normal [facility] Comment on above: Order Comment: Speci men Type: BLOOD SPECIMEN Ordering Facility: [facility] Address: [address] [place] [address] Performed By: #### 5 5454-3 #### [facility] CLIA [id number] [address] [place] [address] [place] Neutrophils (Bld) [#/Vol] 4.83 10*3/uL Normal 1.45-7.50 [facility] Comment on above: Order Comment: Speci men Type: BLOOD SPECIMEN Ordering Facility: [facility] Address: [address] [place] [address] Performed By: #### 5 5454-3 #### [facility] CLIA [id number] [address] [place] [address] [place] Neutrophils/100 WBC (Bld) 63.9 % Normal [facility] Comment on above: Order Comment: Speci men Type: BLOOD SPECIMEN Ordering Facility: [facility] Address: [address] [place] [address] Performed By: #### 5 5454-3 #### [facility] CLIA [id number] [address] [place] [address] [place] Nucleated RBC (Bld) [#/Vol] 10*3/uL Normal <0.01 [facility] Comment on above: Order Comment: Speci men Type: BLOOD SPECIMEN Ordering Facility: [facility] Address: [address] [place] [address] Performed By: #### 5 5454-3 #### [facility] CLIA [id number] [address] [place] [address] [place] Nucleated RBC/100 WBC (Bld) [Ratio] 0.0 /100 WBC Normal [facility] Comment on above: Order Comment: Speci men Type: BLOOD SPECIMEN Ordering Facility: [facility] Address: [address] [place] [address] Performed By: #### 5 5454-3 #### [facility] CLIA [id number] [address] [place] [address] [place] Platelet mean volume (Bld) [Entitic vol] 12.0 fL Normal 9.0-12.7 [facility] Comment on above: Order Comment: Speci men Type: BLOOD SPECIMEN Ordering Facility: [facility] Address: [address] [place] [address] Performed By: #### 5 5454-3 #### [facility] CLIA [id number] [address] [place] [address] [place] Platelets (Bld) [#/Vol] 174 10*3/uL Normal 150-400 [facility] Comment on above: Order Comment: Speci men Type: BLOOD SPECIMEN Ordering Facility: [facility] Address: [address] [place] [address] Performed By: #### 5 5454-3 #### [facility] CLIA [id number] [address] [id number] [address] [place] RBC (Bld) [#/Vol] 5.73 10*6/uL Normal 4.20-6.00 [facility] Comment on above: Order Comment: Speci men Type: BLOOD SPECIMEN Ordering Facility: [facility] Address: [address] [place] [address] Performed By: #### 5 5454-3 #### [facility] CLIA [id number] [address] [place] [address] [place] WBC (Bld) [#/Vol] 7.56 10*3/uL Normal 3.70-11.00 [facility] Comment on above: Order Comment: Speci men Type: BLOOD SPECIMEN Ordering Facility: [facility] Address: [address] [place] [address] Performed By: #### 5 5454-3 #### [facility] CLIA [id number] [address] [place] [address] OF [facility] CNOVon 09-01-2024 CNOV Office Visit (MYRONWS ) -------- JOSHUA ESTES ([id number]) 1955 M Date Time Provider Department 09/01/24 12:40 PM AUDREY PACKER During your visit today, we recorded the following information about you: Temperature Pulse Respiration Blood pressure 98.4 degrees 94/minute 20/minute 144/78 Weight 111.8 kg Audrey Packer APRN.[employer] ARCHITECT 09/01/2024 1:01 PM Signed 09/01/2024 Patient presents with: Derm Problem: Area to bottom of chin, lip is swollen. X2 days. Recording using ambient [id number] software for draft documentation of the visit was discussed with the patient/authorized patient financial representative; all questions welcomed and answered. Patient/authorized patient financial representative agreed to proceed SUBJECTIVE: This is [...] lip obs (more content not included)... Normal [facility] CRP SerPl-mCncon 09-01-2024 CRP [Mass/Vol] 3.1 mg/dL High <0.9 [facility] Comment on above: Order Comment: Speci men Type: BLOOD SPECIMENOrdering Facility: [facility] Address: [address] [place] [address] Performed By: #### 1 988-5, 11473-0, 41137-7, 2275-4 ####[facility] [id number] [facility] [address] [place] [address] [place] Comprehensive metabolic 2000 panelon 09-01-2024 Albumin [Mass/Vol] 4.0 g/dL Normal 3.9-4.9 [facility] Comment on above: Order Comment: Speci men Type: BLOOD SPECIMENOrdering Facility: [facility] Address: [address] [place] [address] Performed By: #### 1 988-5, 19416-3, 52338-1, 2275-4 ####[facility] [id number] [facility] [address] [address] [place] ALP [Catalytic activity/Vol] 78 U/L Normal 38-113 [facility] Comment on above: Order Comment: Speci men Type: BLOOD SPECIMENOrdering Facility: [facility] Address: [address] [place], [place] [address] Performed By: #### 1 988-5, 75518-8, 85762-7, 2275-4 ####[facility] [id number] [facility] [address] [place] [address] [place] ALT [Catalytic activity/Vol] 20 U/L Normal 10-54 [facility] Comment on above: Order Comment: Speci men Type: BLOOD SPECIMENOrdering Facility: [facility] Address: [address] [place], [place] [address] Performed By: #### 1 988-5, 67549-2, 27629-6, 2275-4 ####[facility] [id number] [facility] [address] [place] [address] [place] Anion gap [Moles/Vol] 14 mmol/L Normal 8-15 [facility] Comment on above: Order Comment: Speci men Type: BLOOD SPECIMENOrdering Facility: [facility] Address: [address] [place] [address] Performed By: #### 1 988-5, 50597-2, 66657-8, 2275-4 ####[facility] [id number] [place] [id number] [place] AST [Catalytic activity/Vol] 27 U/L Normal 14-40 [facility] Comment on above: Order Comment: Speci men Type: BLOOD SPECIMENOrdering Facility: [facility] Address: [address] [place] [address] Performed By: #### 1 988-5, 15136-5, 07637-8, 4 ####[facility] LABIA [id number] [place] [address] [place] Bilirubin [Mass/Vol] 0.9 mg/dL Normal 0.2-1.3 [facility] Comment on above: Order Comment: Speci men Type: BLOOD SPECIMENOrdering Facility: [facility] Address: [address] [place] [address] Performed By: #### 1 988-5, 17598-7, 01707-4, 2275-07 ####[facility] LABCLIA [id number] [place] [address] [place] Calcium [Mass/Vol] 9.5 mg/dL Normal 8.5-10.2 [facility] Comment on above: Order Comment: Speci men Type: BLOOD SPECIMENOrdering Facility: [facility] Address: [address] [place] [address] Performed By: #### 1 988-5, 20367-2, 11430-8, 4 ####[facility] LABCLIA [id number] [address] [address] [place] Chloride [Moles/Vol] 98 mmol/L Normal 98-107 [facility] Comment on above: Order Comment: Speci men Type: BLOOD SPECIMENOrdering Facility: [facility] Address: [address] [place] [address] Performed By: #### 1 988-5, 62434-7, 21181-8, 6-4 ####[facility] LABIA [id number] [address] [address] [place] CO2 [Moles/Vol] 28 mmol/L Normal 22-30 [facility] Comment on above: Order Comment: Speci men Type: BLOOD SPECIMENOrdering Facility: [facility] Address: [address] [place] [address] Performed By: #### 1 988-5, 25037-4, 08328-0, 6-4 ####[facility] [id number] [place] [address] [place] Creatinine [Mass/Vol] 1.17 mg/dL Normal 0.73-1.22 [facility] Comment on above: Order Comment: Speci men Type: BLOOD SPECIMENOrdering Facility: [facility] Address: [address] [place] [address] Performed By: #### 1 988-5, 49452-6, 73640-7, 2275-4 ####[facility] [id number] [place] [address] [place] Creatinine and Glomerular filtration rate.predicted panel (S/P/Bld) 67 mL/min/1.73m??? Normal >=60 [facility] Comment on above: Order Comment: Speci men Type: BLOOD SPECIMENOrdering Facility: [facility] Address: [address] [place] [address] Result Comment: Symone mated Glomerular Filtration Rate [...] actual GFR. Performed By: #### 1 988-5, 18424-3, 55702-0, 2275-07 ####[facility] LABCLIA [id number] [facility] [address] [address] [place] Glucose [Mass/Vol] 98 mg/dL Normal 74-99 [facility] Comment on above: Order Comment: Tucker varghese Type: BLOOD SPECIMENOrdering Facility: [facility] Address: [address] [place] [id number] Result Comment: The [place] Diabetes Association (ADA) provides guidance for cutoff [...] Standards of Medical Care in Diabetes 2016, [place] Diabetes Association. Diabetes Care. 2016.39(Suppl 1). Performed By: #### 1 988-5, 15660-7, 12759-2, 2275-07 ####[facility] LABCLIA [id number] [facility] [address] [address] [place] Potassium [Moles/Vol] 4.3 mmol/L Normal 3.7-5.1 [facility] Comment on above: Order Comment: Tucker varghese Type: BLOOD SPECIMENOrdering Facility: [facility] Address: [address] [place] [address] Performed By: #### 1 988-5, 30119-6, 06180-7, 2275-07 ####[facility] LABCLIA [id number] [facility] [id number] [place] [address] [place] Protein [Mass/Vol] 7.7 g/dL Normal 6.3-8.0 [facility] Comment on above: Order Comment: Speci men Type: BLOOD SPECIMENOrdering Facility: [facility] Address: [address] [place] [address] Performed By: #### 1 988-5, 22011-1, 91994-0, 6-4 ####[facility] LABCLIA [id number] [place] [address] [place] Sodium [Moles/Vol] 140 mmol/L Normal 136-144 [facility] Comment on above: Order Comment: Speci men Type: BLOOD SPECIMENOrdering Facility: [facility] Address: [address] [place] [address] Performed By: #### 1 988-5, 75020-2, 62164-5, 2275-4 ####[facility] LABCLIA [id number] [place] [address] [place] Urea nitrogen [Mass/Vol] 19 mg/dL Normal 9-24 [facility] Comment on above: Order Comment: Speci men Type: BLOOD SPECIMENOrdering Facility: [facility] Address: [address] [place] [address] Performed By: #### 1 988-5, 16906-8, 29783-2, 2275-4 ####[facility] LABCLIA [id number] [place] [address] [place] ESR Westergren method (Bld) [Velocity]on 09-01-2024 ESR (Bld) [Velocity] 27 mm/h High [facility] Interpretation and review of laboratory results Abnormal [facility] ESR (Bld) [Velocity] 27 mm/h High 0-15 [facility] Comment on above: Order Comment: Speci men Type: BLOOD SPECIMEN [facility] Address: [address] [place] [address] Performed By: #### 5 5454-3 #### [facility] LAB CLIA [id number] [address] [place] [address] [place] [address] [place] Ferritin SerPl-mCncon 2024 Ferritin [Mass/Vol] 47.5 ng/mL Normal 30.3-565.7 [facility] Comment on above: Order Comment: Speci men Type: BLOOD SPECIMENOrdering Facility: [facility] Address: [address] [place] [address] Performed By: #### 1 988-5, 81953-3, 51618-9, 6-4 ####[facility] LABIA [id number] [place] [id number] [place] Iron and Iron binding capaci ty panelon 09-01-2024 Iron [Mass/Vol] 86 ug/dL Normal 41-186 [facility] Comment on above: Order Comment: Speci men Type: BLOOD SPECIMENOrdering Facility: [facility] Address: [address] [place] [address] Performed By: #### 1 988-5, 14945-9, 63458-5, 2275-4 ####[facility] LABIA [id number] [place] [address] [place] Iron binding capacity [Mass/Vol] 318 ug/dL Normal 232-386 [facility] Comment on above: Order Comment: Speci men Type: BLOOD SPECIMENOrdering Facility: [facility] Address: [address] [place] [address] Performed By: #### 1 988-5, 61522-3, 36025-3, 2275-4 ####[facility] LABIA [id number] [place] [id number] [place] Iron/TIBC [Molar ratio] 27.0 % Normal 15.0-57.0 [facility] Comment on above: Order Comment: Speci men Type: BLOOD SPECIMENOrdering Facility: [facility] Address: [address] [place] [address] Performed By: #### 1 988-5, 19713-6, 88236-2, 6-4 ####[facility] BINH [id number] [address] [place] CNOVon 08-19-2024 CNOV Office Visit (FAMPWS ) -------- JOSHUA ESTES ([id number]) 1955 M Date Time Provider Department 08/19/24 12:40 PM [facility] During your visit today, we recorded the following information about you: Pulse Respiration Blood pressure Weight 60/minute 16/minute 130/76 111.8 kg Tobi Sorto MD 08/19/2024 3:17 PM Signed Chief Complaint Patient presents with: Sleep Problem: Discuss failed sleep medications Recording using [employer] software for draft documentation of the visit was discussed with the patient/authorized patient financial representative; all questions welcomed and answered. Patient/authorized patient financial representative agreed to proceed HPI Joshua Estes [...] REVSC OPN/PRG FEM/POP W/ANGIOPLASTY UNI Right 09/25/2016 [employer]ILY [employer] SCIENCE of R fem-pop bypass graft SHX VASCULAR [...] (TRUE M (more content not included)... Normal [facility] JOSHUA ESTES ([id number]) 1955 Date Time Provider Department 08/18/24 [facility] During your visit today, we recorded the [...] Encounter Status:Closed by FERN STEPHEN [facility]24 [facility] JOSHUA ESTES ([id number]) 1955 M Date Time Provider Department 07/28/24 TOBI SORTO [facility] During your visit today, we recorded the following information about you: Debbi Zamora LPN 07/28/2024 11:28 AM Signed Patient calling said the Amitriptyline 10 mg at bedtime is not helping at all. He is still wide awake every two hours all night. Patient asking if another medication may help better? He uses [facility] for his pharmacy. Please advise oTbi Sorto MD 07/28/2024 11:36 AM Signed Increase [...] Fully Assessed Reason for Visit: Patient Question [8567] Order(s):amitriptyline (ELAVIL) 50 mg tabletTake 1 tablet [...] included)... Normal [facility] JOSHUA ESTES ([id number]) 1955 M Date Time Provider Department 07/21/24 TOBI SORTO [facility] During your visit today, we recorded the [...] 0 07/21/2024 (more content not included)... Normal [facility] CNOVon 07-16-2024 CNOV Office Visit (FAMPWS ) -------- JOSHUA ESTES ([id number]) 1955 M Date Time Provider Department 07/16/24 5:20 PM AUDREY PACKER During your visit today, we recorded the following information about you: Pulse Respiration Blood pressure Weight 83/minute 18/minute 142/82 114.3 kg ChucklogAudrey kwan APRN.[employer] ARCHITECT 07/16/2024 5:27 PM Signed 07/16/2024 Patient presents [...] 07/08/2025 [facility] (more content not included)... Normal [facility] XR CHEST 2V FRONTAL/LATon XR [...] thoracic spine. IMPRESSION: No acute radiographic abnormality. Nail Making Machine Tender: PSCB Transcribe Date/Time: Jul 16 2024 5:54P Dictated by : SHERRON PRAJAPATI MD This examination was interpreted and the report reviewed and electronically signed by: SHERRON PRAJAPATI MD on Jul 16 2024 5:57PM EST [id number] Normal [facility] XR Chest PA and Lateralon IMPRESSION: No acute radiographic abnormality. Nail Making Machine Tender: PSCB Transcribe Date/Time: Jul 16 2024 5:54P Dictated by : SHERRON PRAJAPATI MD This examination was interpreted and the report reviewed and electronically signed by: SHERRON PRAJAPATI MD on Jul 16 2024 5:57PM [facility] * * *Final Report* [...] the thoracic spine. DIVISION OF RADIOLOGY Provider, [facility] - 07/16/2024 * * *Final Report* * [...] spine. IMPRESSION IMPRESSION: No acute radiographic abnormality. Nail Making Machine Tender: [facility] Transcribe Date/Time: Jul 16 2024 5:54P Dictated by : SHERRON PRAJAPATI MD This examination was interpreted and the report reviewed and electronically signed by: SHERRON PRAJAPATI MD on Jul 16 2024 5:57PM EST [facility] Radiology Study observation (narrative) [facility] XR Chest PA and LateralOrder ed By: Ccf Provider on 07-16-2024 [facility] US KIDNEY/BLADDERon 07-15-19 25 US KIDNEY/BLADDER * [...] IMPRESSION: Normal sonographic appearance of the kidneys Nail Making Machine Tender: [facility] Transcribe Date/Time: Jul 15 2024 4:05P Dictated by : ALEXANDREA BELLE MD This examination was interpreted and the report reviewed and electronically signed by: ALEXANDREA BELLE MD on Jul 15 2024 4:06PM EST [id number] Normal [facility] Urinalysis complete panel (U )on 07-11-2024 Bacteria LM.HPF (Urine sed) [#/Area] Negative Normal Negative [facility] Comment on above: Order Comment: Speci men Type: BLOOD SPECIMEN [facility] Address: [address] [place] [address] Performed By: #### 5 5454-3 #### [facility] CLIA [id number] [address] [place] [address] [place] Bilirubin Ql (U) Negative Normal Negative [facility] Comment on above: Order Comment: Speci men Type: BLOOD SPECIMEN [facility] Address: [address] [place] [address] Performed By: #### 5 5454-3 #### [facility] CLIA [id number] [address] [place] [address] [place] Clarity (Unsp spec) Clear Normal Clear [facility] Comment on above: Order Comment: Speci men Type: BLOOD SPECIMEN [facility] Address: [address] [place] [address] Performed By: #### 5 5454-3 #### [facility] CLIA [id number] [address] [place] [address] [place] Color (U) Yellow Normal Yellow [facility] Comment on above: Order Comment: Speci men Type: BLOOD SPECIMEN [facility] Address: [address] [place] [address] Performed By: #### 5 5454-3 #### [facility] CLIA [id number] [address] [place] [address] [place] Epithelial cells LM.HPF (Urine sed) [#/Area] None Seen Normal [facility] Comment on above: Order Comment: Speci men Type: BLOOD SPECIMEN [facility] Address: [address] [place], [place] [address] Performed By: #### 5 5454-3 #### [facility] CLIA [id number] [address] [place] [address] [place] Glucose Test strip (U) [Mass/Vol] 3+ Abnormal Negative [facility] Comment on above: Order Comment: Speci men Type: BLOOD SPECIMEN [facility] Address: [address] [place] [address] Performed By: #### 5 5454-3 #### [facility] CLIA [id number] [address] [place] [address] [place] Hemoglobin Ql (U) Negative Normal Negative [facility] Comment on above: Order Comment: Speci men Type: BLOOD SPECIMEN [facility] Address: [address] [place] [address] Performed By: #### 5 5454-3 #### [facility] CLIA [id number] [address] [place] [address] [place] Hyaline casts (Urine sed) [#/Area] 0 /[LPF] Normal 0 /LPF [facility] Comment on above: Order Comment: Speci men Type: BLOOD SPECIMEN [facility] Address: [address] [place] [address] Performed By: #### 5 5454-3 #### [facility] CLIA [id number] [address] [place] [address] [place] Ketones Ql (U) Negative Normal Negative [facility] Comment on above: Order Comment: Speci men Type: BLOOD SPECIMEN [facility] Address: [address] [place] [address] Performed By: #### 5 5454-3 #### [facility] CLIA [id number] [address] [place] [address] [place] Leukocyte esterase Test strip Ql (U) Negative Normal Negative [facility] Comment on above: Order Comment: Speci men Type: BLOOD SPECIMEN [facility] Address: [address] [place] [address] Performed By: #### 5 5454-3 #### [facility] CLIA [id number] [address] [place] [address] [place] Nitrite Ql (U) Negative Normal Negative [facility] Comment on above: Order Comment: Speci men Type: BLOOD SPECIMEN [facility] Address: [address] [place] [address] Performed By: #### 5 5454-3 #### [facility] CLIA [id number] [address] [place] [address] [place] pH (U) 6.5 [pH] Normal <8.5 [facility] Comment on above: Order Comment: Speci men Type: BLOOD SPECIMEN [facility] Address: [address] [place] [address] Performed By: #### 5 5454-3 #### [facility] CLIA [id number] [address] [place] [address] [place] Protein (U) [Mass/Vol] 3+ Abnormal Negative [facility] Comment on above: Order Comment: Speci men Type: BLOOD SPECIMEN [facility] Address: [address] [place] [address] Performed By: #### 5 5454-3 #### [facility] CLIA [id number] [address] [place] [address] [place] RBC LM.HPF (Urine sed) [#/Area] 0-2 /HPF Normal 0-2 /HPF [facility] Comment on above: Order Comment: Speci men Type: BLOOD SPECIMEN [facility] Address: [address] [place] [address] Performed By: #### 5 5454-3 #### [facility] CLIA [id number] [address] [place] [address] [place] Specific gravity (U) [Rel density] 1.023 Normal 1.005-1.030 [facility] Comment on above: Order Comment: Speci men Type: BLOOD SPECIMEN [facility] Address: [address] [place] [address] Performed By: #### 5 5454-3 #### [facility] CLIA [id number] [address] [place] [address] [place] Urobilinogen Ql (U) 1.0 EU/dL Normal 0.2-1.0 EU/dL [facility] Comment on above: Order Comment: Speci men Type: BLOOD SPECIMEN [facility] Address: [address] [place] [address] Performed By: #### 5 5454-3 #### [facility] CLIA [id number] [address] [place] [address] [place] WBC LM.HPF (Urine sed) [#/Area] 0-5 /HPF Normal 0-5 /HPF [facility] Comment on above: Order Comment: Speci men Type: BLOOD SPECIMEN [facility] Address: [address] [place] [address] Performed By: #### 5 5454-3 #### [facility] CLIA [id number] [address] [place] [address] [place] Comprehensive metabolic 2000 panelon 07-09-2024 Albumin [Mass/Vol] 3.7 g/dL Low 3.9 - 4.9 g/dL [facility] ALP [Catalytic activity/Vol] 68 U/L 38 - 113 U/L [facility] ALT [Catalytic activity/Vol] 24 U/L 10 - 54 U/L [facility] Anion gap [Moles/Vol] 12 mmol/L 8 - 15 mmol/L [facility] AST [Catalytic activity/Vol] 28 U/L 14 - 40 U/L [facility] Bilirubin [Mass/Vol] 0.6 mg/dL 0.2 - 1.3 mg/dL [facility] Calcium [Mass/Vol] 9 mg/dL 8.5 - 10. 2 mg/dL [facility] Chloride [Moles/Vol] 103 mmol/L 98 - 107 mmol/L [facility] CO2 [Moles/Vol] 27 mmol/L 22 - 30 mmol/L [facility] Creatinine [Mass/Vol] 1.31 mg/dL High 0.73 - 1.22 mg/dL [facility] GFR/1.73 sq M.predicted among non-blacks MDRD (S/P/Bld) [Vol rate/Area] 59 mL/min/{1.73_m2} Low - PINF [facility] Comment on above: Estimated Glomerular Filtration Rate [...] 137 mg/dL High 74 - 99 mg/dL [facility] Comment on above: The [place] Diabete s Association (ADA) provides guidance for [...] Standards of Medical Care in Diabetes 2016, [place] Diabetes Association. Diabetes Care. 2016.39(Suppl 1). 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 montelukast (more content not included)... Normal [facility] Comprehensive metabolic 2000 panelon 07-08-2024 Albumin [Mass/Vol] 3.7 g/dL Low 3.9-4.9 [facility] Comment on above: Order Comment: Speci men Type: BLOOD SPECIMEN [facility] Address: [address] [place] [address] Performed By: #### 2 4323-8 #### [facility] CLIA [id number] [address] [place] [address] [place] ALP [Catalytic activity/Vol] 68 U/L Normal 38-113 [facility] Comment on above: Order Comment: Speci men Type: BLOOD SPECIMEN [facility] Address: [address] [place] [address] Performed By: #### 2 4323-8 #### [facility] CLIA [id number] [address] [place] [address] [place] ALT [Catalytic activity/Vol] 24 U/L Normal 10-54 [facility] Comment on above: Order Comment: Speci men Type: BLOOD SPECIMEN [facility] Address: [address] [place] [address] Performed By: #### 2 4323-8 #### [facility] CLIA [id number] [address] [place] [address] [place] Anion gap [Moles/Vol] 12 mmol/L Normal 8-15 [facility] Comment on above: Order Comment: Speci men Type: BLOOD SPECIMEN [facility] Address: [address] [place] [address] Performed By: #### 2 4323-8 #### [facility] CLIA [id number] [address] [place], [place] [address] [place] AST [Catalytic activity/Vol] 28 U/L Normal 14-40 [facility] Comment on above: Order Comment: Speci men Type: BLOOD SPECIMEN [facility] Address: [address] [place] [address] Performed By: #### 2 4323-8 #### [facility] CLIA [id number] [address] [place] [address] [place] Bilirubin [Mass/Vol] 0.6 mg/dL Normal 0.2-1.3 [facility] Comment on above: Order Comment: Speci men Type: BLOOD SPECIMEN [facility] Address: [address] [place] [address] Performed By: #### 2 4323-8 #### [facility] CLIA [id number] [address] [place] [address] [place] Calcium [Mass/Vol] 9.0 mg/dL Normal 8.5-10.2 [facility] Comment on above: Order Comment: Speci men Type: BLOOD SPECIMEN [facility] Address: [address] [place] [address] Performed By: #### 2 4323-8 #### [facility] CLIA [id number] [address] [place], [place] [address] [place] Chloride [Moles/Vol] 103 mmol/L Normal 98-107 [facility] Comment on above: Order Comment: Speci men Type: BLOOD SPECIMEN Ordering Facility: [facility] Address: [address] [place], [place] [address] Performed By: #### 2 4323-8 #### [facility] CLIA [id number] [address] [place], [place] [address] [place] CO2 [Moles/Vol] 27 mmol/L Normal 22-30 [facility] Comment on above: Order Comment: Speci men Type: BLOOD SPECIMEN Ordering Facility: [facility] Address: [address] [place] [address] Performed By: #### 2 4323-8 #### [facility] CLIA [id number] [address] [place] [address] [place] Creatinine [Mass/Vol] 1.31 mg/dL High 0.73-1.22 [facility] Comment on above: Order Comment: Tucker varghese Type: BLOOD SPECIMEN Ordering Facility: [facility] Address: [address] [place] [address] Performed By: #### 2 4323-8 #### [facility] CLIA [id number] [address] [place] [address] [place] Creatinine and Glomerular filtration rate.predicted panel (S/P/Bld) 59 mL/min/1.73m??? Low >=60 [facility] Comment on above: Order Comment: Tucker varghese Type: BLOOD SPECIMEN Ordering Facility: [facility] Address: [address] [place] [address] Result Comment: Symone mated Glomerular Filtration Rate [...] GFR. Performed By: #### 2 4323-8 #### [facility] CLIA [id number] [address] [place] [address] [place] Glucose [Mass/Vol] 137 mg/dL High 74-99 [facility] Comment on above: Order Comment: Tucker varghese Type: BLOOD SPECIMEN Ordering Facility: [facility] Address: [address] [place] [address] Result Comment: The [place] Diabetes Association (ADA) provides guidance for cutoff [...] Standards of Medical Care in Diabetes 2016, [place] Diabetes Association. Diabetes Care. 2016.39(Suppl 1). Performed By: #### 2 4323-8 #### [facility] CLIA [id number] [address] [place] [address] [place] Potassium [Moles/Vol] 4.6 mmol/L Normal 3.7-5.1 [facility] Comment on above: Order Comment: Speci men Type: BLOOD SPECIMEN Ordering Facility: [facility] Address: [address] [place] [address] Performed By: #### 2 4323-8 #### [facility] CLIA [id number] [address] [place], [place] [address] [place] Protein [Mass/Vol] 6.8 g/dL Normal 6.3-8.0 [facility] Comment on above: Order Comment: Speci men Type: BLOOD SPECIMEN Ordering Facility: [facility] Address: [address] [place] [address] Performed By: #### 2 4323-8 #### [facility] CLIA [id number] [address] [place], [place] [address] [place] Sodium [Moles/Vol] 142 mmol/L Normal 136-144 [facility] Comment on above: Order Comment: Speci men Type: BLOOD SPECIMEN Ordering Facility: [facility] Address: [address] [place] [address] Performed By: #### 2 4323-8 #### [facility] CLIA [id number] [address] [place], [place] [address] [place] Urea nitrogen [Mass/Vol] 27 mg/dL High 9-24 [facility] Comment on above: Order Comment: Tucker varghese Type: BLOOD SPECIMEN Ordering Facility: [facility] Address: [address] [place] [address] Performed By: #### 2 4323-8 #### [facility] CLIA [id number] [address] [place] [address] [place] HbA1c (Bld)on 07-08-2024 Average glucose Estimated from glycated hemoglobin (Bld) [Mass/Vol] 143 mg/dL [facility] Comment on above: eAG: (Estimated aver age glucose) is a calculated value from HgbA1c and is patient financial representative of the average blood glucose level in the last 2-3 month period. HbA1c (Bld) [Mass fraction] 6.6 % High 4.3 - 5.6 % [facility] Comment on above: Finnish Diabetes As sociation guidelines indicate that patients with HgbA1c in the range 5.7-6.4% are at increased risk for development of diabetes, and intervention by lifestyle modification may be beneficial. HgbA1c greater or equal to 6.5% is considered diagnostic of diabetes. Interpretation and review of laboratory results Abnormal [facility] Average glucose Estimated from glycated hemoglobin (Bld) [Mass/Vol] 143 mg/dL Normal [facility] Comment on above: Order Comment: Tucker varghese Type: BLOOD SPECIMEN Ordering Facility: [facility] Address: [address] [place] [address] Result Comment: eAG: (Estimated average glucose) is a calculated value from HgbA1c and is patient financial representative of the average blood glucose level in the last 2-3 month period. Performed By: #### 5 5454-3 #### [facility] CLIA [id number] [address] [place] [address] [place] HbA1c (Bld) [Mass fraction] 6.6 % High 4.3-5.6 [facility] Comment on above: Order Comment: Tucker varghese Type: BLOOD SPECIMEN Ordering Facility: [facility] Address: [address] [place] [address] Result Comment: [place] Diabetes Association guidelines indicate that patients with HgbA1c in the range 5.7-6.4% are at increased risk for development of diabetes, and intervention by lifestyle modification may be beneficial. HgbA1c greater or equal to 6.5% is considered diagnostic of diabetes. Performed By: #### 5 5454-3 #### [facility] CLIA [id number] [address] [place] [address] [place] IMMUNOCHEMICAL FECAL OCCULT BLOOD TESTOrdered By: Justino Sorai on 07-07-2024 Lower GI hemoglobin IA Ql (Stl) Negative Negative [facility] Lower GI hemoglobin IA Ql (S tl)Ordered By: Justino Soria on 07-07-2024 Interpretation and review of laboratory results Normal [facility] This test was develo ped and its performance characteristics determined by [facility] Pathology and Laboratory Medicine [place] (-PLMI). It has not been cleared or approved by the FDA. [facility] is regulated under CLIA as qualified to perform high-complexity testing. This test is used for clinical purposes. It should not be regarded as investigational or for research. [facility] Hemoccult Stl Ql IAon 2024 Lower GI hemoglobin IA Ql (Stl) Negative Normal Negative [facility] Comment on above: Order Comment: Speci men Type: STOOL SPECIMEN Ordering Facility: [facility] Address: [address] [place] [address] Performed By: #### 2 9771-3 #### [facility] CLIA [id number] [address] [place] [address] [place] Ferritin SerPl-mCncon 2024 Ferritin [Mass/Vol] 22.0 ng/mL Low 30.3-565.7 [facility] Comment on above: Order Comment: Speci men Type: BLOOD SPECIMEN Ordering Facility: [facility] Address: [address] [place] [address] Result Comment: Gertrudis ected result: Previously reported as 35.3 ng/mL on 06/27/2024 at 2:28 PM EDT. Performed By: #### 2 276-4 #### [facility] CLIA [id number] [place] [address] [place] [facility] CNOVon 06-09-2024 CNOV Office Visit (PODIWS ) -------- FRANKLYNJOSHUA Sergio ([id number]) 1955 M Date Time Provider Department 06/09/24 [...] - hydroCHLOROthiazid (more content not included)... Normal [facility] 05-28-2024 [facility] Telephone (ADMWST) -------- JOSHUA ESTES ([id number]) 1955 Date Time Provider Department 05/28/24 PODLOGARAUDREY [...] Status:Closed by KRISTYN WIGGINS on 07/10/24 Normal [facility] CNOVon 04-09-2024 CNOV Office Visit (FAMPWS ) -------- JOSHUA ESTES ([id number]) 1955 M Date Time Provider Department 04/09/24 [...] REVSC OPN/PRG FEM/POP W/ANGIOPLASTY UNI Right 09/25/2016 [employer] of R fem-pop bypass graft SHX VASCULAR [...] 20 bi (more content not included)... Normal [facility] 04-08-2024 [facility] -------- JOSHUA ESTES ([id number]) 1955 M Date Time Provider Department 04/08/24 TOBI SORTO [facility] During your visit today, we recorded the [...] Blood-Glucose Meter (TRUE METRIX AIR GLUCOSE METER) [facility] 1 Device twice daily. - Lancets lancets [...] Encounter Status:Closed by AMANDA HAMMER on 04/08/24 [facility] CNOVon 03-10-2024 CNOV Office Visit (PODIWS ) -------- RFANKLYNJOSHUA ([id number]) 1955 M Date Time Provider Department 03/10/24 [...] will help patient. Will call in to [facility]. Patient was instructed on the continued importance of diabetic foot care along with proper diet and keeping their blood sugar under control to prevent complications. Stressed the importance of avoiding barefoot walking, wearing good shoes and inspection of feet. Patient is to RTC in 3-4 months. Rao Hillman DPM Referring Provider: RAO HILLMAN [[id number]] Allergies As of Date: 03/10/2024 (No Known [...] [E11.42] Order(s):XR ANKLE GENERAL 3V AP/LAT/OBL RIGHT [[id number]] Order #: [id number] FUTURE Prescriptions as of 03/22/2024 - gabapentin [...] dsdv Inhale (more content not included)... Normal [facility] XR ANKLE 3V AP/LAT/OBL RTon [...] calcaneal spurs. IMPRESSION: No acute osseous abnormality 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 Transcribe Date/Time: Mar 11 2024 5:09P Dictated by : LILY ORO MD This examination was interpreted and the report reviewed and electronically signed by: LILY ORO MD on Dec 10 2024 5:10PM EST [id number] [facility] -------- JOSHUA ESTES ([id number]) 1955 M Date Time Provider Department 03/07/24 TOBI SORTO [facility] During your visit today, we recorded the [...] Encounter Status:Closed by DOLORES JAMA on 03/07/24 [facility] CNOVon 03-04-2024 CNOV Office Visit (MYRONWS ) -------- JOSHUA ESTES ([id number]) 1955 M Date Time Provider Department 03/04/24 [...] on 09/12/2028 (more content not included)... Normal [facility] Iron and Iron binding capaci ty panelon 03-04-2024 Iron [Mass/Vol] 62 ug/dL Normal 41-186 [facility] Comment on above: Order Comment: Speci men Type: BLOOD SPECIMEN Ordering Facility: [facility] Address: [address] [place] [address] Performed By: #### 5 5454-3 #### [facility] CLIA [id number] [address] [place] [address] [place] Iron binding capacity [Mass/Vol] 347 ug/dL Normal 232-386 [facility] Comment on above: Order Comment: Speci men Type: BLOOD SPECIMEN Ordering Facility: [facility] Address: [address] [place] [address] Performed By: #### 5 5454-3 #### [facility] CLIA [id number] [address] [place] [address] [place] Iron/TIBC [Molar ratio] 17.9 % Normal 15.0-57.0 [facility] Comment on above: Order Comment: Speci men Type: BLOOD SPECIMEN Ordering Facility: [facility] Address: [address] [place] [address] Performed By: #### 5 5454-3 #### [facility] CLIA [id number] [address] [place] [address] [place] Vanessa 02-12-2024 [facility] Telephone (FAMPWS) -------- FRANKLYNJOSHUA Sharp ([id number]) 1955 M Date Time Provider Department 02/12/24 TOBI SORTO During your visit today, we recorded the following information about you: Dolores Jama LPN 02/12/2024 10:38 AM Signed Patient reported he had discussed sleep study with Audrey but did not want to complete one initially. Patient now requesting at home sleep study. Dolores Jama LPN PodAudrey key APRN.[employer]CH[employer] 02/12/2024 10:50 AM Signed Sorry I don't [...] to fall back asleep. NOEMY Rajput Julie, APRN.[facility] 02/13/2024 4:46 PM Signed Patient would like [...] Fontenot Rilee, MA 02/19/2024 10:28 AM Signed DragonWavedena message sent to pt notifying him we've [...] Diagnosis:Snoring [R06.83] Order(s):HOME SLEEP APNEA TEST (HSAT) [[id number]] Order #: [id number] FUTURE Prescriptions as of 02/20/2024 - metFORMIN [...] 12/21/2015 Posto (more content not included)... Normal [facility] CNOVon 02-06-2024 CNOV Office Visit (SUMMERSMN ) -------- JOSHUA ESTES ([id number]) 1955 M Date Time Provider Department 02/06/24 1:00 PM ROLANDO JEAN During your visit today, we recorded the following information about you: Temperature Pulse Respiration Blood pressure 98.1 degrees 57/minute 18/minute 143/77 Weight Height 109.5 kg 1.829 m Rolando Jean MD 02/06/2024 4:06 PM Signed [facility] V[facility] Thoracic [place] DEPARTMENT OF VASCULAR SURGERY OUTPATIENT VISIT DATE [...] He has been seen by his local chef de froid. He denies any claudication symptoms or foot [...] REVSC OPN/PRG FEM/POP W/ANGIOPLASTY UNI Right 09/25/2016 TE[employer]ER [employer]ILY [employer] SCIENCE of R fem-pop bypass graft SHX VASCULAR [...] E11.42, E11.29 (more content not included)... Normal [facility] PVR ANK/GRULLON/TOE LUIS VAS LAB on 02-06-2024 PVR ANK/GRULLON/TOE LUIS VAS LAB Non-Invasive Vascular Laboratory [facility] F30 Lower Extremity Arterial Physiology Study [...] physician: Elizabeth Jaquez MD, MAHAMED Final [employer] Medical Image : [id number] See Link below for Image Normal [facility] LEG ARTERIAL PERIPH UNL V LABon 02-06-2024 US LEG ARTERIAL PERIPH UNL VAS LAB Non-Invasive Vascular Laboratory [facility] F30 Lower Extremity Arterial Duplex Unilateral [...] physician: Elizabeth Jaquez MD, MAHAMED Final [employer] Medical Image : [id number] ID See Link below for Image Normal [facility] CNOVon 01-08-2024 CNOV Office Visit (REENA ) -------- JOSHUA ESTES ([id number]) 1955 M Date Time Provider Department 01/08/24 [...] and allergies (more content not included)... Normal [facility] JOSHUA ESTES ([id number]) 1955 M Date Time Provider Department 01/08/24 TOBI SORTO PODCCP During your visit today, we recorded the following information about you: Angel Marie 01/08/2024 4:04 PM Signed Reason for call: Mr Estes called and he would like to schedule an appointment with Contact Name (If not the pt): Home and cell number: [phone] Diagnosis: Post PAD surgery , pt having [...] Encounter Status:Closed by TREASURE FERNANDO on 01/10/24 [facility] Vanessa 12-19-2023 EDENILSONN Telephone (REENA) -------- JOSHUA ESTES ([id number]) 1955 M Date Time Provider Department 12/19/23 [...] Signed Pt agreeable to increase Gabapentin. [employer]ses [employer] Britt. DILCIA Leonard Christopher B, MD 12/21/2023 [...] reflux dis (more content not included)... Normal [facility] CBC W Auto Differential pane l (Bld)on 12-05-2023 Basophils (Bld) [#/Vol] 0.11 10*3/uL High <0.11 [facility] Comment on above: Order Comment: Speci men Type: BLOOD SPECIMEN Ordering Facility: [facility] Address: [address] [place] [address] Performed By: #### 5 5454-3 #### [facility] CLIA [id number] [address] [place] [address] [place] Basophils/100 WBC (Bld) 1.1 % Normal [facility] Comment on above: Order Comment: Speci men Type: BLOOD SPECIMEN Ordering Facility: [facility] Address: [address] [place] [address] Performed By: #### 5 5454-3 #### [facility] CLIA [id number] [address] [place] [address] [place] Differential cell count method Nom (Bld) Auto Normal [facility] Comment on above: Order Comment: Speci men Type: BLOOD SPECIMEN Ordering Facility: [facility] Address: [address] [place] [address] Performed By: #### 5 5454-3 #### [facility] CLIA [id number] [address] [place] [address] [place] Eosinophils (Bld) [#/Vol] 0.39 10*3/uL Normal <0.46 [facility] Comment on above: Order Comment: Speci men Type: BLOOD SPECIMEN Ordering Facility: [facility] Address: [address] [place] [address] Performed By: #### 5 5454-3 #### [facility] CLIA [id number] [address] [place] [address] [place] Eosinophils/100 WBC (Bld) 3.9 % Normal [facility] Comment on above: Order Comment: Speci men Type: BLOOD SPECIMEN Ordering Facility: [facility] Address: [address] [place] [address] Performed By: #### 5 5454-3 #### [facility] CLIA [id number] [address] [place] [address] [place] Erythrocyte distribution width (RBC) [Ratio] 14.6 % Normal 11.5-15.0 [facility] Comment on above: Order Comment: Speci men Type: BLOOD SPECIMEN Ordering Facility: [facility] Address: [address] [place] [address] Performed By: #### 5 5454-3 #### [facility] CLIA [id number] [address] [place] [address] [place] Hematocrit (Bld) [Volume fraction] 55.4 % High 39.0-51.0 [facility] Comment on above: Order Comment: Speci men Type: BLOOD SPECIMEN Ordering Facility: [facility] Address: [address] [place], [place] [address] Performed By: #### 5 5454-3 #### [facility] CLIA [id number] [address] [place] [address] [place] Hemoglobin (Bld) [Mass/Vol] 17.4 g/dL High 13.0-17.0 [facility] Comment on above: Order Comment: Speci men Type: BLOOD SPECIMEN Ordering Facility: [facility] Address: [address] [place] [address] Performed By: #### 5 5454-3 #### [facility] CLIA [id number] [address] [place] [address] [place] Immature granulocytes (Bld) [#/Vol] 0.05 10*3/uL Normal <0.10 [facility] Comment on above: Order Comment: Speci men Type: BLOOD SPECIMEN Ordering Facility: [facility] Address: [address] [place] [address] Performed By: #### 5 5454-3 #### [facility] CLIA [id number] [address] [place] [address] [place] Immature granulocytes/100 WBC (Bld) 0.5 % Normal [facility] Comment on above: Order Comment: Speci men Type: BLOOD SPECIMEN Ordering Facility: [facility] Address: [address] [place] [address] Performed By: #### 5 5454-3 #### [facility] CLIA [id number] [address] [place] [address] [place] Lymphocytes (Bld) [#/Vol] 2.50 10*3/uL Normal 1.00-4.00 [facility] Comment on above: Order Comment: Speci men Type: BLOOD SPECIMEN Ordering Facility: [facility] Address: [address] [place] [address] Performed By: #### 5 5454-3 #### [facility] CLIA [id number] [address] [place] [address] [place] Lymphocytes/100 WBC (Bld) 25.3 % Normal [facility] Comment on above: Order Comment: Speci men Type: BLOOD SPECIMEN Ordering Facility: [facility] Address: [address] [place] [address] Performed By: #### 5 5454-3 #### [facility] CLIA [id number] [address] [place] [address] [place] MCH (RBC) [Entitic mass] 31.5 pg Normal 26.0-34.0 [facility] Comment on above: Order Comment: Speci men Type: BLOOD SPECIMEN Ordering Facility: [facility] Address: [address] [place] [address] Performed By: #### 5 5454-3 #### [facility] CLIA [id number] [address] [place] [address] [place] MCHC (RBC) [Mass/Vol] 31.4 g/dL Normal 30.5-36.0 [facility] Comment on above: Order Comment: Speci men Type: BLOOD SPECIMEN Ordering Facility: [facility] Address: [address] [place] [address] Performed By: #### 5 5454-3 #### [facility] CLIA [id number] [address] [place] [address] [place] MCV (RBC) [Entitic vol] 100.2 fL High 80.0-100.0 [facility] Comment on above: Order Comment: Speci men Type: BLOOD SPECIMEN Ordering Facility: [facility] Address: [address] [place] [address] Performed By: #### 5 5454-3 #### [facility] CLIA [id number] [address] [place] [address] [place] Monocytes (Bld) [#/Vol] 0.84 10*3/uL Normal <0.87 [facility] Comment on above: Order Comment: Speci men Type: BLOOD SPECIMEN Ordering Facility: [facility] Address: [address] [place] [address] Performed By: #### 5 5454-3 #### [facility] CLIA [id number] [address] [place] [address] [place] Monocytes/100 WBC (Bld) 8.5 % Normal [facility] Comment on above: Order Comment: Speci men Type: BLOOD SPECIMEN Ordering Facility: [facility] Address: [address] [place] [address] Performed By: #### 5 5454-3 #### [facility] CLIA [id number] [address] [place] [address] [place] Neutrophils (Bld) [#/Vol] 6.00 10*3/uL Normal 1.45-7.50 [facility] Comment on above: Order Comment: Speci men Type: BLOOD SPECIMEN Ordering Facility: [facility] Address: [address] [place] [address] Performed By: #### 5 5454-3 #### [facility] CLIA [id number] [address] [place] [address] [place] Neutrophils/100 WBC (Bld) 60.7 % Normal [facility] Comment on above: Order Comment: Speci men Type: BLOOD SPECIMEN Ordering Facility: [facility] Address: [address] [place] [address] Performed By: #### 5 5454-3 #### [facility] CLIA [id number] [address] [place] [address] [place] Nucleated RBC (Bld) [#/Vol] 10*3/uL Normal <0.01 [facility] Comment on above: Order Comment: Speci men Type: BLOOD SPECIMEN Ordering Facility: [facility] Address: [address] [place] [address] Performed By: #### 5 5454-3 #### [facility] CLIA [id number] [address] [place] [address] [place] Nucleated RBC/100 WBC (Bld) [Ratio] 0.0 /100 WBC Normal [facility] [facility] Comment on above: Order Comment: Speci men Type: BLOOD SPECIMEN Ordering Facility: [facility] Address: [address] [place] [address] Performed By: #### 5 5454-3 #### [facility] CLIA [id number] [address] [place] [address] [place] Platelet mean volume (Bld) [Entitic vol] 11.2 fL Normal 9.0-12.7 [facility] Comment on above: Order Comment: Speci men Type: BLOOD SPECIMEN Ordering Facility: [facility] Address: [address] [place] [address] Performed By: #### 5 5454-3 #### [facility] CLIA [id number] [address] [place] [address] [place] Platelets (Bld) [#/Vol] 182 10*3/uL Normal 150-400 [facility] Comment on above: Order Comment: Speci men Type: BLOOD SPECIMEN Ordering Facility: [facility] Address: [address] [place] [address] Performed By: #### 5 5454-3 #### [facility] CLIA [id number] [address] [place] [address] [place] RBC (Bld) [#/Vol] 5.53 10*6/uL Normal 4.20-6.00 [facility] Comment on above: Order Comment: Speci men Type: BLOOD SPECIMEN Ordering Facility: [facility] Address: [address] [place] [address] Performed By: #### 5 5454-3 #### [facility] CLIA [id number] [address] [place] [address] [place] WBC (Bld) [#/Vol] 9.89 10*3/uL Normal 3.70-11.00 [facility] Comment on above: Order Comment: Speci men Type: BLOOD SPECIMEN Ordering Facility: [facility] Address: [address] [place] [address] Performed By: #### 5 5454-3 #### [facility] CLIA [id number] [address] [place] [address] [facility] CNOVon 12-05-2023 CNOV Office Visit (MYRONWS ) -------- JOSHUA ESTES ([id number]) 1955 M Date Time Provider Department 12/05/23 7:40 AM AUDREY PACKER During your visit today, we recorded the following information about you: Pulse Respiration Blood pressure Weight 68/minute 18/minute 132/90 109.4 kg Audrey Packer APRN.[employer]CHITECT 12/05/2023 8:31 AM Signed 12/05/2023 Patient presents [...] (HCC) No date: DVT (deep venous thrombosis) ([facility]) No date: GERD (gastroesophageal reflux [...] Reflexes symmetri (more content not included)... Normal [facility] Comprehensive metabolic 2000 panelon 12-05-2023 Albumin [Mass/Vol] 4.0 g/dL Normal 3.9-4.9 [facility] Comment on above: Order Comment: Tucker varghese Type: BLOOD SPECIMEN Ordering Facility: [facility] Address: [address] [place] [address] Performed By: #### 5 5454-3 #### [facility] CLIA [id number] [address] [place] [address] [place] [address] [place] ALP [Catalytic activity/Vol] 62 U/L Normal 38-113 [facility] Comment on above: Order Comment: Tucker varghese Type: BLOOD SPECIMEN Ordering Facility: [facility] Address: [address] [id number] Performed By: #### 5 5454-3 #### [facility] CLIA [id number] [address] [place] [address] [place] ALT [Catalytic activity/Vol] 14 U/L Normal 10-54 [facility] Comment on above: Order Comment: Speci men Type: BLOOD SPECIMEN Ordering Facility: [facility] Address: [address] [place] [address] Performed By: #### 5 5454-3 #### [facility] CLIA [id number] [address] [place] [address] [place] Anion gap [Moles/Vol] 15 mmol/L Normal 8-15 [facility] Comment on above: Order Comment: Speci men Type: BLOOD SPECIMEN Ordering Facility: [facility] Address: [address] [place] [address] Performed By: #### 5 5454-3 #### [facility] CLIA [id number] [address] [place] [address] [place] AST [Catalytic activity/Vol] 18 U/L Normal 14-40 [facility] Comment on above: Order Comment: Speci men Type: BLOOD SPECIMEN Ordering Facility: [facility] Address: [address] [place] [address] Performed By: #### 5 5454-3 #### [facility] CLIA [id number] [address] [place], [place] [id number] [place] Bilirubin [Mass/Vol] 0.6 mg/dL Normal 0.2-1.3 [facility] Comment on above: Order Comment: Speci men Type: BLOOD SPECIMEN Ordering Facility: [facility] Address: [address] [place] [address] Performed By: #### 5 5454-3 #### [facility] CLIA [id number] [address] [place], [place] [address] [place] Calcium [Mass/Vol] 9.2 mg/dL Normal 8.5-10.2 [facility] Comment on above: Order Comment: Speci men Type: BLOOD SPECIMEN Ordering Facility: [facility] Address: [address] [place] [address] Performed By: #### 5 5454-3 #### [facility] CLIA [id number] [address] [place] [address] [place] Chloride [Moles/Vol] 100 mmol/L Normal 98-107 [facility] Comment on above: Order Comment: Speci men Type: BLOOD SPECIMEN Ordering Facility: [facility] Address: [address] [place] [address] Performed By: #### 5 5454-3 #### [facility] CLIA [id number] [address] [place] [address] [place] CO2 [Moles/Vol] 26 mmol/L Normal 22-30 [facility] Comment on above: Order Comment: Speci men Type: BLOOD SPECIMEN Ordering Facility: [facility] Address: [address] [place] [address] Performed By: #### 5 5454-3 #### [facility] CLIA [id number] [address] [place] [address] [place] Creatinine [Mass/Vol] 1.35 mg/dL High 0.73-1.22 [facility] Comment on above: Order Comment: Speci men Type: BLOOD SPECIMEN Ordering Facility: [facility] Address: [address] [place] [address] Performed By: #### 5 5454-3 #### [facility] CLIA [id number] [address] [place] [address] [place] Creatinine and Glomerular filtration rate.predicted panel (S/P/Bld) 57 mL/min/1.73m??? Low >=60 [facility] Comment on above: Order Comment: Speci men Type: BLOOD SPECIMEN Ordering Facility: [facility] Address: [address] [place] [address] Result Comment: Symone mated Glomerular Filtration Rate [...] GFR. Performed By: #### 5 5454-3 #### [facility] CLIA [id number] [address] [place] [address] [place] Glucose [Mass/Vol] 163 mg/dL High 74-99 [facility] Comment on above: Order Comment: Tucker varghese Type: BLOOD SPECIMEN Ordering Facility: [facility] Address: [address] [place] [address] Result Comment: The [place] Diabetes Association (ADA) provides guidance for cutoff [...] Standards of Medical Care in Diabetes 2016, [place] Diabetes Association. Diabetes Care. 2016.39(Suppl 1). Performed By: #### 5 5454-3 #### [facility] CLIA [id number] [address] [place] [address] [place] Potassium [Moles/Vol] 5.1 mmol/L Normal 3.7-5.1 [facility] Comment on above: Order Comment: Tucker varghese Type: BLOOD SPECIMEN Ordering Facility: [facility] Address: [address] [place] [address] Performed By: #### 5 5454-3 #### [facility] CLIA [id number] [address] [place] [address] [place] Protein [Mass/Vol] 6.8 g/dL Normal 6.3-8.0 [facility] Comment on above: Order Comment: Speci men Type: BLOOD SPECIMEN Ordering Facility: [facility] Address: [address] [place] [address] Performed By: #### 5 5454-3 #### [facility] CLIA [id number] [address] [place] [address] [place] Sodium [Moles/Vol] 141 mmol/L Normal 136-144 [facility] Comment on above: Order Comment: Speci men Type: BLOOD SPECIMEN Ordering Facility: [facility] Address: [address] [place] [address] Performed By: #### 5 5454-3 #### [facility] CLIA [id number] [address] [place] [address] [place] Urea nitrogen [Mass/Vol] 25 mg/dL High 9-24 [facility] Comment on above: Order Comment: Speci men Type: BLOOD SPECIMEN Ordering Facility: [facility] Address: [address] [place] [address] Performed By: #### 5 5454-3 #### [facility] CLIA [id number] [address] [place] [address] [place] HbA1c (Bld)on 12-05-2023 Average glucose Estimated from glycated hemoglobin (Bld) [Mass/Vol] 166 mg/dL Normal [facility] Comment on above: Order Comment: Speci men Type: BLOOD SPECIMEN Ordering Facility: [facility] Address: [address] [place] [address] Result Comment: eAG: (Estimated average glucose) is a calculated value from HgbA1c and is patient financial representative of the average blood glucose level in the last 2-3 month period. Performed By: #### 5 5454-3 #### [facility] CLIA [id number] [address] [place] [address] [place] HbA1c (Bld) [Mass fraction] 7.4 % High 4.3-5.6 [facility] Comment on above: Order Comment: Tucker varghese Type: BLOOD SPECIMEN Ordering Facility: [facility] Address: [address] [place] [address] Result Comment: Amer [place] Diabetes Association guidelines indicate that patients with HgbA1c in the range 5.7-6.4% are at increased risk for development of diabetes, and intervention by lifestyle modification may be beneficial. HgbA1c greater or equal to 6.5% is considered diagnostic of diabetes. Performed By: #### 5 5454-3 #### [facility] CLIA [id number] [address] [place] [address] [place] Vit B12 SerPl-mCncon 024 Cobalamin (Vitamin B12) [Mass/Vol] 263 pg/mL Normal 232-1245 [facility] Comment on above: Order Comment: Tucker varghese Type: BLOOD SPECIMEN Ordering Facility: [facility] Address: [address] [place] [address] Performed By: #### 5 5454-3 #### [facility] CLIA [id number] [address] [place] [address] [place] Zinc SerPl-mCncon 12-05-2023 Zinc [Mass/Vol] 68 ug/dL Normal 60-120 [facility] Comment on above: Order Comment: Tucker varghese Type: BLOOD SPECIMEN Ordering Facility: [facility] Address: [address] [place] [address] Result Comment: This test was developed and its performance characteristics determined by [facility]'s [facility] [place] ([facility]). It has not been cleared or approved by the FDA. [facility] is regulated under CLIA as qualified to perform high-complexity testing. This test is used for clinical purposes. It should not be regarded as investigational or for research. Performed By: #### 5 763-8 #### [facility] CLIA [id number] [address] [id number] [facility] CNOVon 12-04-2023 CNOV Office Visit (PODIWS ) -------- FRANKLYNJOSHUA Sharp ([id number]) 1955 M Date Time Provider Department 12/04/23 [...] with diabetes mellitus due to underlying condition ([facility]) (primary encounter diagnosis) (B35.1) Onychomycosis [...] (or decreased sensation in your feet) a chef de froid should always cut your toenails. Be Careful [...] more than (more content not included)... Normal [facility] [employer] 024 Chicken feather IgE Qn (S) <0.35 Normal <0.35 [facility] Comment on above: Order Comment: Tucker varghese Type: BLOOD SPECIMEN Ordering Facility: [facility] Address: [address] [place] [address] Performed By: #### A NIMLS #### [facility] CLIA [id number] [address] [place] [address] [place] Chicken feather IgE RAST class (S) Class 0 Normal Class 0 [facility] Comment on above: Order Comment: uTcker varghese Type: BLOOD SPECIMEN Ordering Facility: [facility] Address: [address] [place] [address] Performed By: #### A NIMLS #### [facility] CLIA [id number] [address] [place] [address] [place] Cow epithelium IgE Qn (S) <0.35 Normal <0.35 [facility] Comment on above: Order Comment: Speci men Type: BLOOD SPECIMEN Ordering Facility: [facility] Address: [address] [place] [address] Performed By: #### A NIMLS #### [facility] CLIA [id number] [address] [place] [address] [place] Cow epithelium IgE RAST class (S) Class 0 Normal Class 0 [facility] Comment on above: Order Comment: Speci men Type: BLOOD SPECIMEN Ordering Facility: [facility] Address: [address] [place] [address] Performed By: #### A NIMLS #### [facility] CLIA [id number] [address] [place] [address] [place] Goose feather IgE Qn (S) <0.35 Normal <0.35 [facility] Comment on above: Order Comment: Speci men Type: BLOOD SPECIMEN Ordering Facility: [facility] Address: [address] [place] [address] Performed By: #### A NIMLS #### [facility] CLIA [id number] [address] [place] [address] [place] Goose feather IgE RAST class (S) Class 0 Normal Class 0 [facility] Comment on above: Order Comment: Speci men Type: BLOOD SPECIMEN Ordering Facility: [facility] Address: [address] [place] [address] Performed By: #### A NIMLS #### [facility] CLIA [id number] [address] [place] [address] [place] Horse dander IgE Qn (S) <0.35 Normal <0.35 [facility] Comment on above: Order Comment: Speci men Type: BLOOD SPECIMEN Ordering Facility: [facility] Address: [address] [place] [address] Performed By: #### A NIMLS #### [facility] CLIA [id number] [address] [place] [address] [place] Horse dander IgE RAST class (S) Class 0 Normal Class 0 [facility] Comment on above: Order Comment: Speci men Type: BLOOD SPECIMEN Ordering Facility: [facility] Address: [address] [place] [address] Performed By: #### A NIMLS #### [facility] CLIA [id number] [address] [place] [address] [place] [employer]on 09-16 A. alternata IgE Qn (S) <0.35 Normal <0.35 [facility] Comment on above: Order Comment: Speci men Type: BLOOD SPECIMEN Ordering Facility: [facility] Address: [address] [place] [address] Performed By: #### I NHALE #### [facility] CLIA [id number] [address] [place] [address] [place] A. alternata IgE RAST class (S) Class 0 Normal Class 0 [facility] Comment on above: Order Comment: Speci men Type: BLOOD SPECIMEN Ordering Facility: [facility] Address: [address] [place] [address] Performed By: #### I NHALE #### [facility] CLIA [id number] [address] [place] [address] [place] A. fumigatus IgE Qn (S) <0.35 Normal <0.35 [facility] Comment on above: Order Comment: Speci men Type: BLOOD SPECIMEN Ordering Facility: [facility] Address: [address] [place] [address] Performed By: #### I NHALE #### [facility] CLIA [id number] [address] [place] [address] [place] A. fumigatus IgE RAST class (S) Class 0 Normal Class 0 [facility] Comment on above: Order Comment: Speci men Type: BLOOD SPECIMEN Ordering Facility: [facility] Address: [address] [place] [address] Performed By: #### I NHALE #### [facility] CLIA [id number] [address] [place] [address] [place] Finnish house dust mite IgE Qn (S) <0.35 Normal <0.35 [facility] Comment on above: Order Comment: Speci men Type: BLOOD SPECIMEN Ordering Facility: [facility] Address: [address] [place] [address] Performed By: #### I NHALE #### [facility] CLIA [id number] [address] [place] [address] [place] Finnish house dust mite IgE RAST class (S) Class 0 Normal Class 0 [facility] Comment on above: Order Comment: Speci men Type: BLOOD SPECIMEN Ordering Facility: [facility] Address: [address] [place] [address] Performed By: #### I NHALE #### [facility] CLIA [id number] [address] [place] [address] [place] Boxelder IgE Qn (S) <0.35 Normal <0.35 [facility] Comment on above: Order Comment: Speci men Type: BLOOD SPECIMEN Ordering Facility: [facility] Address: [address] [place] [address] Performed By: #### I NHALE #### [facility] CLIA [id number] [address] [place] [address] [place] Boxelder IgE RAST class (S) Class 0 Normal Class 0 [facility] Comment on above: Order Comment: Speci men Type: BLOOD SPECIMEN Ordering Facility: [facility] Address: [address] [place] [address] Performed By: #### I NHALE #### [facility] CLIA [id number] [address] [place] [address] [place] C. herbarum IgE Qn (S) <0.35 Normal <0.35 [facility] Comment on above: Order Comment: Speci men Type: BLOOD SPECIMEN Ordering Facility: [facility] Address: [address] [place] [address] Performed By: #### I NHALE #### [facility] CLIA [id number] [address] [place] [address] [place] C. herbarum IgE RAST class (S) Class 0 Normal Class 0 [facility] Comment on above: Order Comment: Speci men Type: BLOOD SPECIMEN Ordering Facility: [facility] Address: [address] [place] [address] Performed By: #### I NHALE #### [facility] CLIA [id number] [address] [place] [address] [place] Cat dander IgE Qn (S) <0.35 Normal <0.35 [facility] Comment on above: Order Comment: Speci men Type: BLOOD SPECIMEN Ordering Facility: [facility] Address: [address] [place] [address] Performed By: #### I NHALE #### [facility] CLIA [id number] [address] [place] [address] [place] Cat dander IgE RAST class (S) Class 0 Normal Class 0 [facility] Comment on above: Order Comment: Speci men Type: BLOOD SPECIMEN Ordering Facility: [facility] Address: [address] [place] [address] Performed By: #### I NHALE #### [facility] CLIA [id number] [address] [place] [address] [place] Common Ragweed IgE Qn (S) <0.35 Normal <0.35 [facility] Comment on above: Order Comment: Speci men Type: BLOOD SPECIMEN Ordering Facility: [facility] Address: [address] [place] [address] Performed By: #### I NHALE #### [facility] CLIA [id number] [address] [place] [address] [place] Common Ragweed IgE RAST class (S) Class 0 Normal Class 0 [facility] Comment on above: Order Comment: Speci men Type: BLOOD SPECIMEN Ordering Facility: [facility] Address: [address] [place] [address] Performed By: #### I NHALE #### [facility] CLIA [id number] [address] [place] Dog dander IgE Qn (S) <0.35 Normal <0.35 [facility] Comment on above: Order Comment: Speci men Type: BLOOD SPECIMEN Ordering Facility: [facility] Address: [address] [place] [address] Performed By: #### I NHALE #### [facility] CLIA [id number] [address] [place] [address] [place] Dog dander IgE RAST class (S) Class 0 Normal Class 0 [facility] Comment on above: Order Comment: Speci men Type: BLOOD SPECIMEN Ordering Facility: [facility] Address: [address] [place] [address] Performed By: #### I NHALE #### [facility] CLIA [id number] [address] [place] [address] [place] Stateless plantain IgE Qn (S) <0.35 Normal <0.35 [facility] Comment on above: Order Comment: Speci men Type: BLOOD SPECIMEN Ordering Facility: [facility] Address: [address] [place] [address] Performed By: #### I NHALE #### [facility] CLIA [id number] [address] [place] [address] [place] Stateless plantain IgE RAST class (S) Class 0 Normal Class 0 [facility] Comment on above: Order Comment: Speci men Type: BLOOD SPECIMEN Ordering Facility: [facility] Address: [address] [place] [address] Performed By: #### I NHALE #### [facility] CLIA [id number] [address] [place] [address] [place] Goosefoot IgE Qn (S) <0.35 Normal <0.35 [facility] Comment on above: Order Comment: Speci men Type: BLOOD SPECIMEN Ordering Facility: [facility] Address: [address] [place] [address] Performed By: #### I NHALE #### [facility] CLIA [id number] [address] [place] [address] [place] Goosefoot IgE RAST class (S) Class 0 Normal Class 0 [facility] Comment on above: Order Comment: Speci men Type: BLOOD SPECIMEN Ordering Facility: [facility] Address: [address] [place] [address] Performed By: #### I NHALE #### [facility] CLIA [id number] [address] [place] [address] [place] House dust Waddy Elisha IgE Qn (S) <0.35 Normal <0.35 [facility] Comment on above: Order Comment: Speci men Type: BLOOD SPECIMEN Ordering Facility: [facility] Address: [address] [place] [address] Performed By: #### I NHALE #### [facility] CLIA [id number] [address] [place] [address] [place] House dust IgE RAST class (S) Class 0 Normal Class 0 [facility] Comment on above: Order Comment: Speci men Type: BLOOD SPECIMEN Ordering Facility: [facility] Address: [address] [place] [address] Performed By: #### I NHALE #### [facility] CLIA [id number] [address] [place] [address] [place] blue grass IgE Qn (S) <0.35 Normal <0.35 [facility] Comment on above: Order Comment: Speci men Type: BLOOD SPECIMEN Ordering Facility: [facility] Address: [address] [place] [address] Performed By: #### I NHALE #### [facility] CLIA [id number] [address] [place] [address] [place] blue [place] IgE RAST class (S) Class 0 Normal Class 0 [facility] Comment on above: Order Comment: Speci men Type: BLOOD SPECIMEN Ordering Facility: [facility] Address: [address] [place] [address] Performed By: #### I NHALE #### [facility] CLIA [id number] [address] [place] [address] [place] P. notatum IgE Qn (S) <0.35 Normal <0.35 [facility] Comment on above: Order Comment: Speci men Type: BLOOD SPECIMEN Ordering Facility: [facility] Address: [address] [place] [address] Performed By: #### I NHALE #### [facility] CLIA [id number] [address] [place] [address] OF [place] P. notatum IgE RAST class (S) Class 0 Normal Class 0 [facility] Comment on above: Order Comment: Speci men Type: BLOOD SPECIMEN Ordering Facility: [facility] Address: [address] [place] [address] Performed By: #### I NHALE #### [facility] CLIA [id number] [address] [place] [address] OF [place] Gagandeep IgE Qn (S) <0.35 Normal <0.35 [facility] Comment on above: Order Comment: Speci men Type: BLOOD SPECIMEN Ordering Facility: [facility] Address: [address] [place] [address] Performed By: #### I NHALE #### [facility] CLIA [id number] [address] [place] [address] [place] Gagandeep IgE RAST class (S) Class 0 Normal Class 0 [facility] Comment on above: Order Comment: Speci men Type: BLOOD SPECIMEN Ordering Facility: [facility] Address: [address] [place] [address] Performed By: #### I NHALE #### [facility] CLIA [id number] [address] [place] [address] [place] Seymour IgE Qn (S) <0.35 Normal <0.35 [facility] Comment on above: Order Comment: Speci men Type: BLOOD SPECIMEN Ordering Facility: [facility] Address: [address] [place] [address] Performed By: #### I NHALE #### [facility] CLIA [id number] [address] [place] [address] [place] Seymour IgE RAST class (S) Class 0 Normal Class 0 [facility] Comment on above: Order Comment: Speci men Type: BLOOD SPECIMEN Ordering Facility: [facility] Address: [address] [place] [address] Performed By: #### I NHALE #### [facility] CLIA [id number] [address] [place] [address] [place] IgE SerPl-aCncon 09-17-2023 IgE Qn 29.1 kU/l Normal <114.0 [facility] Comment on above: Order Comment: Speci men Type: BLOOD SPECIMEN Ordering Facility: [facility] Address: [address] [place] [address] Performed By: #### 1 9113-0 #### [facility] CLIA [id number] [address] [place] [address] [place] No Panel Informationon [...] DATE: September 03, 2023 TIME: 10:04 AM [facility] SPIROMETRY - BASELINE AND PO ST DILATORon 08-22-2023 PCY98-49% POST (L/S) 1.16 L/S [facility] HDQ60-65% PRE (L/S) 0.89 L/S [facility] FEV1 PRE (L) 1.75 L [facility] FEV1/FVC POST (%) 72 % [facility] FEV1/FVC PRE (%) 68 % [facility] FEV1_POST (L) 1.83 L [facility] FVC POST (L) 2.53 L [facility] FVC PRE (L) 2.56 L [facility] PEF POST (L/S) 5.47 L/S [facility] PEF PRE (L/S) 4.77 L/S [facility] [address] [place] [id number] Test Date: 2023-08-22 Pat Name: JOSHUA ESTES Department: Room: Gender: Male Clerk Operator: : 1955 Requested By: Order Number: [id number] Reading MD: Alondra Swartz MD Interpretive Statements [...] 14:28:03 EDT by Alondra Swartz MD ID: [id number] Name: JOSHUA ESTES Race: White Ht: 72.50 [...] 0.40 5 FIVC (L) 2.19 2.15 -1 ILJ46-76 (L/sec) 0.89 1.16 2.64 4.72 33 1.16 [...] Stable exam with no acute radiographic abnormality. 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 Transcribe Date/Time: Aug 11 2023 5:13P Dictated by : SANTOSH BEACH MD This examination was interpreted and the report reviewed and electronically signed by: SANTOSH BEACH MD on Aug 11 2023 5:16PM [facility] * * *Final Report* [...] first costochondral junction. DIVISION OF RADIOLOGY Provider, [facility] - 08/11/2023 * * *Final Report* * [...] Stable exam with no acute radiographic abnormality. 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 Transcribe Date/Time: Aug 11 2023 5:13P Dictated by : SANTOSH BEACH MD This examination was interpreted and the report reviewed and electronically signed by: SANTOSH BEACH MD on Aug 11 2023 5:16PM EST [facility] XR Chest PA and LateralOrder ed By: Ccf Provider on 08-11-2023 [facility] CBC W Auto Differential pane l (Bld)on 08-10-2023 Basophils (Bld) [#/Vol] 0.08 10*3/uL [facility] Basophils/100 WBC (Bld) 0.7 % [facility] Differential cell count method Nom (Bld) Auto [facility] Eosinophils (Bld) [#/Vol] 0.46 10*3/uL High [facility] Eosinophils/100 WBC (Bld) 4.3 % [facility] Erythrocyte distribution width (RBC) [Ratio] 15.0 % 11.5 - 15.0 % [facility] Hematocrit (Bld) [Volume fraction] 55.1 % High 39.0 - 51.0 % [facility] Hemoglobin (Bld) [Mass/Vol] 17.7 g/dL High 13.0 - 17.0 g/dL [facility] Immature granulocytes (Bld) [#/Vol] 0.08 10*3/uL [facility] Immature granulocytes/100 WBC (Bld) 0.7 % [facility] Interpretation and review of laboratory results Abnormal [facility] Lymphocytes (Bld) [#/Vol] 3.11 10*3/uL [facility] Lymphocytes/100 WBC (Bld) 29.0 % [facility] MCH (RBC) [Entitic mass] 32.2 pg 26.0 - 34.0 pg [facility] MCHC (RBC) [Mass/Vol] 32.1 g/dL 30.5 - 36.0 g/dL [facility] MCV (RBC) [Entitic vol] 100.4 fL High 80.0 - 100.0 fL [facility] Monocytes (Bld) [#/Vol] 0.81 10*3/uL NINF [facility] Monocytes/100 WBC (Bld) 7.5 % [facility] Neutrophils (Bld) [#/Vol] 6.19 10*3/uL [facility] Neutrophils/100 WBC (Bld) 57.8 % [facility] Nucleated RBC (Bld) [#/Vol] NINF [facility] Nucleated RBC/100 WBC (Bld) [Ratio] 0.0 % /100 WBC [facility] Platelet mean volume (Bld) [Entitic vol] 11.8 fL 9.0 - 12.7 fL [facility] Platelets (Bld) [#/Vol] 206 10*3/uL [facility] RBC (Bld) [#/Vol] 5.49 10*6/uL 4.20 - 6.0 0 m/uL [facility] WBC (Bld) [#/Vol] 10.73 10*3/uL [facility] Comprehensive metabolic 2000 panelon 08-10-2023 Albumin [Mass/Vol] 4.1 g/dL 3.9 - 4.9 g/dL [facility] ALP [Catalytic activity/Vol] 70 U/L 38 - 113 U/L [facility] ALT [Catalytic activity/Vol] 27 U/L 10 - 54 U/L [facility] Anion gap [Moles/Vol] 14 mmol/L 9 - 18 mmol/L [facility] AST [Catalytic activity/Vol] 36 U/L 14 - 40 U/L [facility] Bilirubin [Mass/Vol] 0.6 mg/dL 0.2 - 1.3 mg/dL [facility] Calcium [Mass/Vol] 9.8 mg/dL 8.5 - 10. 2 mg/dL [facility] Chloride [Moles/Vol] 98 mmol/L 97 - 105 mmol/L [facility] CO2 [Moles/Vol] 26 mmol/L 22 - 30 mmol/L [facility] Creatinine [Mass/Vol] 1.22 mg/dL 0.73 - 1.22 mg/dL [facility] GFR/1.73 sq M.predicted among non-blacks MDRD (S/P/Bld) [Vol rate/Area] 64 mL/min/{1.73_m2} - PINF [facility] Comment on above: Estimated Glomerular Filtration Rate [...] 155 mg/dL High 74 - 99 mg/dL [facility] Comment on above: The [place] Diabete s Association (ADA) provides guidance for [...] Standards of Medical Care in Diabetes 2016, [place] Diabetes Association. Diabetes Care. 2016.39(Suppl 1). Interpretation and review of laboratory results Abnormal [facility] Potassium [Moles/Vol] 4.7 mmol/L 3.7 - 5.1 mmol/L [facility] Protein [Mass/Vol] 7.6 g/dL 6.3 - 8.0 g/dL [facility] Sodium [Moles/Vol] 138 mmol/L 136 - 144 mmol/L [facility] Urea nitrogen [Mass/Vol] 23 mg/dL 9 - 24 mg/dL [facility] MAGNESIUMon 08-10-2023 Magnesium [Mass/Vol] 2.1 mg/dL 1.7 - 2.3 mg/dL [facility] Magnesium [Mass/Vol]on 08-09 Interpretation and review of laboratory results Normal [facility] No Panel Informationon 08-09 [facility] THYROID STIMULATING HORMONEo n 08-10-2023 TSH Qn 2.540 m[IU]/L [facility] TSH Qnon 08-10-2023 Interpretation and review of laboratory results Normal [facility] XR Chest PA and Lateralon Radiology Study observation (narrative) [facility] Comprehensive metabolic 2000 panelon 01-05-2023 Albumin [Mass/Vol] 4.1 g/dL 3.9 - 4.9 g/dL [facility] ALP [Catalytic activity/Vol] 60 U/L 38 - 113 U/L [facility] ALT [Catalytic activity/Vol] 32 U/L 10 - 54 U/L [facility] Anion gap [Moles/Vol] 13 mmol/L 9 - 18 mmol/L [facility] AST [Catalytic activity/Vol] 33 U/L 14 - 40 U/L [facility] Bilirubin [Mass/Vol] 0.9 mg/dL 0.2 - 1.3 mg/dL [facility] Calcium [Mass/Vol] 9.5 mg/dL 8.5 - 10. 2 mg/dL [facility] Chloride [Moles/Vol] 100 mmol/L 97 - 105 mmol/L [facility] CO2 [Moles/Vol] 27 mmol/L 22 - 30 mmol/L [facility] Creatinine [Mass/Vol] 1.21 mg/dL 0.73 - 1.22 mg/dL [facility] Estimated Glomerular Filtration Rate 65 mL/min/1.73m >=60 mL/min/1.73m [facility] Glucose [Mass/Vol] 152 mg/dL High 74 - 99 mg/dL [facility] Potassium [Moles/Vol] 4.4 mmol/L 3.7 - 5.1 mmol/L [facility] Protein [Mass/Vol] 7.1 g/dL 6.3 - 8.0 g/dL [facility] Sodium [Moles/Vol] 140 mmol/L 136 - 144 mmol/L [facility] Urea nitrogen [Mass/Vol] 20 mg/dL 9 - 24 mg/dL [facility] HbA1c (Bld)on 01-05-2023 Average glucose Estimated from glycated hemoglobin (Bld) [Mass/Vol] 160 mg/dL [facility] HbA1c (Bld) [Mass fraction] 7.2 % High 4.3 - 5.6 % [facility] XR CHEST 2V FRONTAL/LATon [facility] XR Chest PA and Lateralon IMPRESSION: No acute radiographic abnormality. 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 Transcribe Date/Time: Nov 20 2022 1:03P Dictated by : SHERRON PRAJAPATI MD This examination was interpreted and the report reviewed and electronically signed by: SHERRON PRAJAPATI MD on Nov 20 2022 1:08PM [facility] * * *Final Report* [...] the thoracic spine. DIVISION OF RADIOLOGY Provider, [facility] - 11/20/2022 * * *Final Report* * [...] spine. IMPRESSION IMPRESSION: No acute radiographic abnormality. 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 Transcribe Date/Time: Nov 20 2022 1:03P Dictated by : SHERRON PRAJAPATI MD This examination was interpreted and the report reviewed and electronically signed by: SHERRON PRAJAPATI MD on Nov 20 2022 1:08PM EST [facility] Radiology Study observation (narrative) [facility] XR Chest PA and LateralOrder ed By: Ccf Provider on 11-20-2022 [facility] XR FOOT GENERAL 3V AP/LAT/OB L BILATERALon 11-07-2022 [facility] No Panel Informationon 10-18 [facility] LUNG VOLUMESon 05-11-2022 ERV BOX (L) 0.23 L [facility] FRC Box (L) 3.95 L [facility] IC BOX (L) 2.64 L [facility] RV Box (L) 3.74 L [facility] RV/TLC Box (%) 59 % [facility] TLC Box (L) 6.36 L [facility] VC (L) BOX 2.86 L [facility] CTA HEAD WO/W IVCONon 2022 [facility] XR CHEST 2V FRONTAL/LATon [facility] XR Chest PA and Lateralon IMPRESSION: No acute radiographic abnormality. Nail Making Machine Tender: PSCB Transcribe Date/Time: Apr 10 2022 4:11P Dictated by : LILLIAN LEE MD This examination was interpreted and the report reviewed and electronically signed by: LILLIAN LEE MD on Apr 10 2022 4:20PM [facility] * * *Final Report* [...] osteophytosis DIVISION OF RADIOLOGY Provider, Sw[facility] [place] - 04/10/2022 * * *Final Report* * [...] osteophytosis IMPRESSION IMPRESSION: No acute radiographic abnormality. 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 Transcribe Date/Time: Apr 10 2022 4:11P Dictated by : LILLIAN LEE MD This examination was interpreted and the report reviewed and electronically signed by: LILLIAN LEE MD on Apr 10 2022 4:20PM EST [facility] Radiology Study observation (narrative) [facility] XR Chest PA and LateralOrder ed By: Ccf Provider on 04-10-2022 [facility] STREP A MOLECULAR (POC)on Procedural Control Valid [facility] Strep A (POCT) Negative Negative [facility] XR LUMBAR GENERAL 3V AP/LAT/ L5-S1on 08-15-2021 [facility] XR Lumbar spine 3 Viewson IMPRESSION: Degenerative changes as described. Nail Making Machine Tender: [facility] Transcribe Date/Time: Aug 15 2021 10:54A Dictated [...] ZZZ_DO_NOT_US E_DIVISION OF RADIOLOGY Provider, Swapna [facility] [place] - 08/15/2021 * * *Final Report* * [...] vasculature. IMPRESSION IMPRESSION: Degenerative changes as described. Nail Making Machine Tender: [facility] Transcribe Date/Time: Aug 15 2021 10:54A Dictated by : ALEXANDREA BELLE MD This examination was interpreted and the report reviewed and electronically signed by: ALEXANDREA BELLE MD on Aug 15 2021 10:56AM EST [facility] Radiology Study observation (narrative) [facility] XR Lumbar spine 3 ViewsOrder ed By: Ccf Provider on 08-15-2021 [facility] Abdomen/Pelvis without Conto n 08-09-2021 Abdomen/Pelvis without Cont [facility] Services [address] [place] [address] Abdomen/Pelvis without Cont MR#: [id number] Acct: [id number] Name: JOSHUA ESTES Rep #: [id number] : 1955 M 66 From: Jose Manuel childers MD PCP: Dr. Salty Sorto MD Status: REG ER Study: Abdomen/Pelvis without Cont Date of Exam: 07/31 Exam# [id number] Ordering Dr: Rad Duncan MD STUDY: CT [...] Salty Sorto MD; Dr. Rad Duncan MD Nail Making Machine Tender: Signed Normal [facility] CBC W/Diff, Automatedon 05-1 0-2021 Absolute Lymph 2.73 X10 3/uL Normal 0.83-4.51 [facility] Comment on above: Performed By: #### L 100.0100, L500.4050 #### [facility] [address] [place], [address] Absolute Neut 6.6 X10 3/uL Normal 2.0-7.7 [facility] Comment on above: Performed By: #### L 100.0100, L500.4050 #### [facility] [address] [place], [address] Basophils/100 WBC (Bld) 0.7 % Normal 0-1 [facility] Comment on above: Performed By: #### L 100.0100, L500.4050 #### [facility] [address] [place], [address] Eosinophils/100 WBC (Bld) 4.3 % Normal 0-5 [facility] Comment on above: Performed By: #### L 100.0100, L500.4050 #### [facility] [address] [place], [address] Erythrocyte distribution width (RBC) [Ratio] 14.4 % Normal 11.6-14.6 [facility] Comment on above: Performed By: #### L 100.0100, L500.4050 #### [facility] [address] [place], [address] Hematocrit (Bld) [Volume fraction] 53.7 % Normal 40-54 [facility] Comment on above: Performed By: #### L 100.0100, L500.4050 #### [facility] [address] [place], [address] Hemoglobin (Bld) [Mass/Vol] 17.9 g/dL High 13.0-16.5 [facility] Comment on above: Performed By: #### L 100.0100, L500.4050 #### [facility] [address] [place], [address] IG% 0.600 Normal 0.0-0.9 [facility] Comment on above: Result Comment: IG% - Immature Granulocytes (promyelocytes, myelocytes and metamyelocytes) > 1% indicates that a LEFT SHIFT is Present. Performed By: #### L 100.0100, L500.4050 #### [facility] [address] [place], [address] Lymphocytes/100 WBC (Bld) 25.5 % Normal 19-41 [facility] Comment on above: Performed By: #### L 100.0100, L500.4050 #### [facility] [address] [place], [address] MCH (RBC) [Entitic mass] 32.8 pg High 27.0-32.0 [facility] Comment on above: Performed By: #### L 100.0100, L500.4050 #### [facility] [address] [place], [address] MCHC (RBC) [Mass/Vol] 33.3 g/dL Normal 32-36 [facility] Comment on above: Performed By: #### L 100.0100, L500.4050 #### [facility] [address] [place], [address] MCV (RBC) [Entitic vol] 98.4 fL High 80-94 [facility] Comment on above: Performed By: #### L 100.0100, L500.4050 #### [facility] [address] [place], [address] Monocytes/100 WBC (Bld) 7.1 % Normal 0-10 [facility] Comment on above: Performed By: #### L 100.0100, L500.4050 #### [facility] [address] [place], [address] Neutrophils/100 WBC (Bld) 61.8 % Normal 47-70 [facility] Comment on above: Performed By: #### L 100.0100, L500.4050 #### [facility] [address] [place], [address] Nucleated RBC (Bld) [#/Vol] 0 10*3/uL Normal 0-5 [facility] Comment on above: Performed By: #### L 100.0100, L500.4050 #### [facility] [address] [place], [address] Platelet mean volume (Bld) [Entitic vol] 11.0 fL Normal 6.2-12.0 [facility] Comment on above: Performed By: #### L 100.0100, L500.4050 #### [facility] [address] [place], [address] Platelets (Bld) [#/Vol] 178 10*3/uL Normal 150-450 [facility] Comment on above: Performed By: #### L 100.0100, L500.4050 #### [facility] [address] [place], [address] RBC (Bld) [#/Vol] 5.46 10*6/uL Normal 4.6-6.2 [facility] Comment on above: Performed By: #### L 100.0100, L500.4050 #### [facility] [address] [place], [address] RDW SD 52.5 fl High 35.1-43.9 [facility] Comment on above: Performed By: #### L 100.0100, L500.4050 #### [facility] [address] [place], [address] WBC (Bld) [#/Vol] 10.7 10*3/uL Normal 4.4-11.0 [facility] Comment on above: Performed By: #### L 100.0100, L500.4050 #### [facility] [address] [place], [address] Comprehensive Metabolic Prof ilon 08-09-2021 Albumin [Mass/Vol] 3.5 g/dL Normal 3.2-5.0 [facility] Comment on above: Performed By: #### L 100.0100, L500.4050 #### [facility] [address] [place], [address] Albumin/Globulin [Mass ratio] 0.9 {ratio} Normal 0.9-2.4 [facility] Comment on above: Performed By: #### L 100.0100, L500.4050 #### [facility] [address] [place], [address] ALK P 56 U/L Normal 45-117 [facility] Comment on above: Performed By: #### L 100.0100, L500.4050 #### [facility] [address] [place], [address] ALT [Catalytic activity/Vol] 39 U/L Normal 16-61 [facility] Comment on above: Performed By: #### L 100.0100, L500.4050 #### [facility] [address] [place], [address] AST [Catalytic activity/Vol] 31 U/L Normal 15-37 [facility] Comment on above: Performed By: #### L 100.0100, L500.4050 #### [facility] [address] [place], [address] Bilirubin [Mass/Vol] 0.70 mg/dL Normal 0.20-1.00 [facility] Comment on above: Result Comment: For patients on eltrombopag therapy, use of Dimension Elfrida TBIL is not recommended. Performed By: #### L 100.0100, L500.4050 #### [facility] [address] [place], [address] BUN/CRE 22.9 RATIO High 10-20 [facility] Comment on above: Performed By: #### L 100.0100, L500.4050 #### [facility] [address] [place], [address] CA,Total 9.4 mg/dL Normal 8.5-10.1 [facility] Comment on above: Performed By: #### L 100.0100, L500.4050 #### [facility] [address] [place], [address] Chloride [Moles/Vol] 105 mmol/L Normal 98-107 [facility] Comment on above: Performed By: #### L 100.0100, L500.4050 #### [facility] [address] [place], [address] CO2 [Moles/Vol] 25.0 mmol/L Normal 21.0-32.0 [facility] Comment on above: Performed By: #### L 100.0100, L500.4050 #### [facility] [address] [place], [address] Creatinine [Mass/Vol] 1.53 mg/dL High 0.70-1.30 [facility] Comment on above: Result Comment: The validity of the calculated GFR GFRAA in patients over 70 years has not been determined. Clinical correlation is essential. Performed By: #### L 100.0100, L500.4050 #### [facility] [address] [place], [address] ECRCL 52.95 ml/min Normal [facility] Comment on above: Performed By: #### L 100.0100, L500.4050 #### [facility] [address] [place], [address] EST GFR - AA 59 mL/min Low >60 [facility] Comment on above: Result Comment: Afri can [place] GFR Calc Performed By: #### L 100.0100, L500.4050 #### [facility] [address] [place], [address] GAP 8 Normal 5-15 [facility] Comment on above: Performed By: #### L 100.0100, L500.4050 #### [facility] [address] [place], [address] GFR/1.73 sq M.predicted among non-blacks MDRD (S/P/Bld) [Vol rate/Area] 49 mL/min/{1.73_m2} Low >60 [facility] Comment on above: Result Comment: Non- GFR Calc Performed By: #### L 100.0100, L500.4050 #### [facility] [address] [place], [address] Globulin (S) [Mass/Vol] 4.1 g/dL Normal 2.2-4.2 [facility] Comment on above: Performed By: #### L 100.0100, L500.4050 #### [facility] [address] [place], [address] Glucose [Mass/Vol] 163 mg/dL High 74-106 [facility] Comment on above: Result Comment: Fast ing Glucose result greater than or equal to 126 mg/dL suggests DIABETES MELLITUS per A.D.A. criteria. Performed By: #### L 100.0100, L500.4050 #### [facility] [address] [place], [address] Potassium [Moles/Vol] 4.6 mmol/L Normal 3.5-5.1 [place] [facility] Comment on above: Performed By: #### L 100.0100, L500.4050 #### [facility] [address] [place], [address] Sodium [Moles/Vol] 138 mmol/L Normal 136-145 [facility] Comment on above: Performed By: #### L 100.0100, L500.4050 #### [facility] [address] [place], [address] T PROT 7.6 g/dL Normal 6.4-8.2 [facility] Comment on above: Performed By: #### L 100.0100, L500.4050 #### [facility] [address] [place], [address] Urea nitrogen [Mass/Vol] 35 mg/dL High 7-18 [facility] Comment on above: Performed By: #### L 100.0100, L500.4050 #### [facility] [address] [place], [address] Emergency Department Summary on 08-09-2021 Emergency Department Summary [facility] Medical Records Department [address] [place] [address] Emergency Department Summary 08/09/21 MR#: [id number] Acct: [id number] Name: JOSHUA ESTES Rep #: [id number] : 1955 66 From: Rad Duncan MD PCP: Dr. Salty Sorot MD Status:REG ER Location: ED HPI HPI [...] no JVD (more content not included)... Normal [facility] Urinalysis, Completeon 08-09 BACTERIA 0 SEEN Normal None Seen [facility] Comment on above: Order Comment: CLEAN CATCH Performed By: #### L 400.0001 #### [facility] [address] [place], [address] EPI,SQUAMOUS 0 SEEN Normal 0-5 [facility] Comment on above: Order Comment: CLEAN CATCH Performed By: #### L 400.0001 #### [facility] [address] [place], [address] Mucus Ql (Urine sed) 0 SEEN Normal [facility] Comment on above: Order Comment: CLEAN CATCH Performed By: #### L 400.0001 #### [facility] [address] [place], [address] RBC 0 SEEN Normal 0-5 [facility] Comment on above: Order Comment: CLEAN CATCH Performed By: #### L 400.0001 #### [facility] [address] [place], [address] WBC 0 SEEN Normal 0-5 [facility] Comment on above: Order Comment: CLEAN CATCH Performed By: #### L 400.0001 #### [facility] [address] 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 Transcribe Date/Time: Jul 16 2020 8:12A Dictated by : KELLEY ARAUJO MD This examination was interpreted and the report reviewed and electronically signed by: KELLEY ARAUJO MD on Jul 16 2020 8:18AM [facility] * * *Final Report* [...] spine are presented. FINDINGS: There are five gpa-ssb-keaobyf lumbar vertebrae. No fracture or subluxations are [...] spine are presented. FINDINGS: There are five luu-qsd-utbwigq lumbar vertebrae. No fracture or subluxations are noted. There is L4-5 disc space narrowing. Questionable L2-3 mild disc space narrowing. There is significant osteophyte formation. Ligament ossification also seen. IMPRESSION IMPRESSION: Lumbar spine degenerative changes with L4-5 disc space narrowing. 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 Transcribe Date/Time: Jul 16 2020 8:12A Dictated by : KELLEY ARAUJO MD This examination was interpreted and the report reviewed and electronically signed by: KELLEY ARAUJO MD on Jul 16 2020 8:18AM EST [facility] XR Lumbar spine 3 ViewsOrder ed By: Ccf Provider on 07-16-2020 [facility] XR Lumbar spine 3 Viewson Radiology Study observation (narrative) [facility] CT LUNG SCREENING WO IVCONon 12-27-2018 CT LUNG SCREENING WO IVCON * * *Final Report* * * DATE OF EXAM: Dec 27 2018 2:31PM [facility] 0562 - CT LUNG SCREENING WO IVCON [...] without contrast. MQ: [id number] Patient characteristics: * Btzy-vw-Uxpuv: 1955; Age at exam: 63 years * Gender: Male * Lung Disease: Asymptomatic (no signs or symptoms of lung disease) * Number of Pack Years: 40 * Current smoker (=0) or Number of Years since Quit: 0 * Ordering provider and NPI: ILDA WILLOUGHBY [id number] * Interpreting radiologist and NPI: Tanika, [id number] Exam acquisition parameters: * Exam Date: 12/27/2018 2:31 PM * Site: [facility] * * CT System Stripper Soft Plastic: Siemens * CT System Model: Dual Source [...] thorax. Other actionable findings: None === Reference: [employer]. Lung CT Screening Reporting and Data System (Lung-RADS). Available at: http://www.acr.org/Quali ty-Safety/Resources/Lung RADS Nail Making Machine Tender: PSCWhitney Transcribe Date/Time: Dec 30 2018 7:32A Dictated by : FISH BELTRAN MD This examination was interpreted and the report reviewed and electronically signed by: FISH BELTRAN MD on Dec 30 2018 7:41AM EST Normal [facility] Vital Signs Date Time Vital Sign Value Performing Clinician Faci [facility] 09-04-2024 07:53-0400 Body mass index (BMI) [Ratio] 32.85 kg/m2 Audrey Packer APRN.WEB SOLUTIONS ARCHITECT Work Phone: [facility] 09-04-2024 07:53-0400 Body weight 109.86 kg Audrey Podlogar HAT LINING BLOCKER.WE[employer] SOLUTIONS ARCHITECT Work Phone: [facility] 09-04-2024 07:53-0400 Diastolic blood pressure 82 mm[Hg] Audrey Podlogar HAT LINING BLOCKER.WE[employer] SOLUTIONS ARCHITECT Work Phone: [facility] 09-04-2024 07:53-0400 Heart rate 70 /min Audrey Podlogar HAT LINING BLOCKER.WEB SOLUTIONS ARCHITECT Work Phone: [facility] 09-04-2024 07:53-0400 Respiratory rate 18 /min Audrey Podlogar HAT LINING BLOCKER.WEB SOLUTIONS ARCHITECT Work Phone: [facility] 09-04-2024 07:53-0400 SaO2% (BldA) [Mass fraction] 94 % Audrey Podlogar HAT LINING BLOCKER.WE[employer] SOLUTIONS ARCHITECT Work Phone: [facility] 09-04-2024 07:53-0400 Systolic blood pressure 136 mm[Hg] Audrey Podlogar HAT LINING BLOCKER.WE[employer] SOLUTIONS ARCHITECT Work Phone: [facility] 09-01-2024 12:37-0400 Body mass index (BMI) [Ratio] 33.42 kg/m2 Audrey Podlogar HAT LINING BLOCKER.WE[employer] SOLUTIONS ARCHITECT Work Phone: [facility] 09-01-2024 12:37-0400 Body temperature 98.4 [degF] Audrey Podlogar HAT LINING BLOCKER.WE[employer] SOLUTIONS ARCHITECT Work Phone: [facility] 09-01-2024 12:37-0400 Body weight 111.77 kg Audrey Podlogar HAT LINING BLOCKER.[employer] SOLUTIONS ARCHITECT Work Phone: [facility] 09-01-2024 12:37-0400 Diastolic blood pressure 78 mm[Hg] Audrey Podlogar HAT LINING BLOCKER.WE[employer] SOLUTIONS ARCHITECT Work Phone: [facility] 09-01-2024 12:37-0400 Heart rate 94 /min Audrey Podlogar HAT LINING BLOCKER.WEB SOLUTIONS ARCHITECT Work Phone: [facility] 09-01-2024 12:37-0400 Respiratory rate 20 /min Audrey Podlogar HAT LINING BLOCKER.WEB SOLUTIONS ARCHITECT Work Phone: [facility] 09-01-2024 12:37-0400 Systolic blood pressure 144 mm[Hg] Audrey Podlogar HAT LINING BLOCKER.WE[employer] SOLUTIONS ARCHITECT Work Phone: [facility] 07-16-2024 17:03-0400 Body mass index (BMI) [Ratio] 34.18 kg/m2 Audrey Podlogar HAT LINING BLOCKER.WE[employer] SOL[employer] ARCHITECT Work Phone: [facility] 07-16-2024 17:03-0400 Body weight 114.31 kg Audrey Podlogar HAT LINING BLOCKER.WE[employer] SOLUTIONS ARCHITECT Work Phone: [facility] 07-16-2024 17:03-0400 Diastolic blood pressure 82 mm[Hg] Audrey Podlogar HAT LINING BLOCKER.WE[employer] SOL[employer] ARCHITECT Work Phone: [facility] 07-16-2024 17:03-0400 Heart rate 83 /min Audrey Podlogar HAT LINING BLOCKER.WEB SOLUTIONS ARCHITECT Work Phone: [facility] 07-16-2024 17:03-0400 Respiratory rate 18 /min Audrey Podlogar HAT LINING BLOCKER.WEB SOLUTIONS ARCHITECT Work Phone: [facility] 07-16-2024 17:03-0400 SaO2% (BldA) [Mass fraction] 95 % Audrey Podlogar HAT LINING BLOCKER.WE[employer] SOLUTIONS ARCHITECT Work Phone: [facility] 07-16-2024 17:03-0400 Systolic blood pressure 142 mm[Hg] Audrey Podlogar HAT LINING BLOCKER.WEB SOLUTIONS ARCHITECT Work Phone: [facility] 07-08-2024 08:03-0400 Body mass index (BMI) [Ratio] 33.53 kg/m2 Tobi Sorto MD Work Phone: [facility] 07-08-2024 08:03-0400 Body weight 112.13 kg Tobi Sorto MD Work Phone: [facility] 07-08-2024 08:03-0400 Diastolic blood pressure 84 mm[Hg] Tobi Sorto MD Work Phone: [facility] 07-08-2024 08:03-0400 Heart rate 75 /min Tobi Sorto MD Work Phone: [facility] 07-08-2024 08:03-0400 Respiratory rate 18 /min Tobi Sorto MD Work Phone: [facility] 07-08-2024 08:03-0400 SaO2% (BldA) [Mass fraction] 95 % Tobi Sorto MD Work Phone: [facility] 07-08-2024 08:03-0400 Systolic blood pressure 136 mm[Hg] Tobi Sorto MD Work Phone: [facility] 04-09-2024 10:29-0500 Body mass index (BMI) [Ratio] 33.23 kg/m2 Tobi Sorto MD Work Phone: [facility] 04-09-2024 10:29-0500 Body weight 111.13 kg Tobi Sorto MD Work Phone: [facility] 04-09-2024 10:29-0500 Diastolic blood pressure 74 mm[Hg] Tobi Sorto MD Work Phone: [facility] 04-09-2024 10:29-0500 Heart rate 72 /min Tobi Sorto MD Work Phone: [facility] 04-09-2024 10:29-0500 Respiratory rate 18 /min Tobi Sorto MD Work Phone: [facility] 04-09-2024 10:29-0500 SaO2% (BldA) [Mass fraction] 97 % Tobi Sorto MD Work Phone: [facility] 04-09-2024 10:29-0500 Systolic blood pressure 124 mm[Hg] Tobi Sorto MD Work Phone: [facility] 03-04-2024 09:23-0500 Body mass index (BMI) [Ratio] 32.92 kg/m2 Audrey Packer APRN.CNP Work Phone: [facility] 03-04-2024 09:23-0500 Body weight 110.1 kg Audrey Podlogar HAT LINING BLOCKER.[employer] SOL[employer] ARCHITECT Work Phone: [facility] 03-04-2024 09:23-0500 Diastolic blood pressure 78 mm[Hg] Audrey Podlogar HAT LINING BLOCKER.[employer] SOL[employer] ARCHITECT Work Phone: [facility] 03-04-2024 09:23-0500 Heart rate 70 /min Audrey Podlogar HAT LINING BLOCKER.WE[employer] SOLUTIONS ARCHITECT Work Phone: [facility] 03-04-2024 09:23-0500 Respiratory rate 18 /min Audrey Podlogar HAT LINING BLOCKER.WEB SOLUTIONS ARCHITECT Work Phone: [facility] 03-04-2024 09:23-0500 SaO2% (BldA) [Mass fraction] 95 % Audrey Podlogar HAT LINING BLOCKER.WE[employer] SOLUTIONS ARCHITECT Work Phone: [facility] 03-04-2024 09:23-0500 Systolic blood pressure 122 mm[Hg] Audrey Podlogar HAT LINING BLOCKER.WE[employer] SOLUTIONS ARCHITECT Work Phone: [facility] 02-06-2024 13:05-0500 Body height 182.9 cm Rolando Jean MD Work Phone: [facility] 02-06-2024 13:05-0500 Body mass index (BMI) [Ratio] 32.74 kg/m2 Rolando Jean MD Work Phone: [facility] 02-06-2024 13:05-0500 Body temperature 98.1 [degF] Rolando Jean MD Work Phone: [facility] 02-06-2024 13:05-0500 Body weight 109.5 kg Rolando Jean MD Work Phone: [facility] 02-06-2024 13:05-0500 Diastolic blood pressure 77 mm[Hg] Rolando Jean MD Work Phone: [facility] 02-06-2024 13:05-0500 Heart rate 57 /min Rolando Jean MD Work Phone: [facility] 02-06-2024 13:05-0500 Respiratory rate 18 /min Rolando Jean MD Work Phone: [facility] 02-06-2024 13:05-0500 SaO2% (BldA) [Mass fraction] 94 % Rolando Jean MD Work Phone: [facility] 02-06-2024 13:05-0500 Systolic blood pressure 143 mm[Hg] Rolando Jean MD Work Phone: [facility] 01-08-2024 07:57-0400 Body mass index (BMI) [Ratio] 32.59 kg/m2 Audrey Podlogar HAT LINING BLOCKER.[employer] SOLUT[employer] ARCHITECT Work Phone: [facility] 01-08-2024 07:57-0400 Body weight 110.5 kg Audrey Podlogar HAT LINING BLOCKER.WE[employer] SOL[employer]IONS ARCHITECT Work Phone: [facility] 01-08-2024 07:57-0400 Diastolic blood pressure 78 mm[Hg] Audrey Podlogar HAT LINING BLOCKER.WEB SOLUTIONS ARCHITECT Work Phone: [facility] 01-08-2024 07:57-0400 Heart rate 82 /min Audrey Podlogar HAT LINING BLOCKER.WE[employer] SOL[employer]IONS ARCHITECT Work Phone: [facility] 01-08-2024 07:57-0400 Respiratory rate 18 /min Audrey Podlogar HAT LINING BLOCKER.WEB SOLUTIONS ARCHITECT Work Phone: [facility] 01-08-2024 07:57-0400 SaO2% (BldA) [Mass fraction] 94 % Audrey Podlogar HAT LINING BLOCKER.WEB SOL[employer]IONS ARCHITECT Work Phone: [facility] 01-08-2024 07:57-0400 Systolic blood pressure 132 mm[Hg] Audrey Podlogar HAT LINING BLOCKER.WEB SOLUTIONS ARCHITECT Work Phone: [facility] 12-05-2023 07:43-0400 Body mass index (BMI) [Ratio] 32.26 kg/m2 Audrey Podlogar HAT LINING BLOCKER.WEB SOLUTIONS ARCHITECT Work Phone: [facility] 12-05-2023 07:43-0400 Body weight 109.4 kg Audrey Podlogar HAT LINING BLOCKER.WE[employer] SOLUTIONS ARCHITECT Work Phone: [facility] 12-05-2023 07:43-0400 Diastolic blood pressure 90 mm[Hg] Audrey Podlogar HAT LINING BLOCKER.WEB SOLUTIONS ARCHITECT Work Phone: [facility] 12-05-2023 07:43-0400 Heart rate 68 /min Audrey Podlogar HAT LINING BLOCKER.WE[employer] SOLUTIONS ARCHITECT Work Phone: [facility] 12-05-2023 07:43-0400 Respiratory rate 18 /min Audrey Podlogar HAT LINING BLOCKER.WEB SOLUTIONS ARCHITECT Work Phone: [facility] 12-05-2023 07:43-0400 SaO2% (BldA) [Mass fraction] 94 % Audrey Podlogar HAT LINING BLOCKER.WEB SOLUTIONS ARCHITECT Work Phone: [facility] 12-05-2023 07:43-0400 Systolic blood pressure 132 mm[Hg] Audrey Podlogar HAT LINING BLOCKER.WEB SOLUTIONS ARCHITECT Work Phone: [facility] 09-17-2023 10:56-0400 Body mass index (BMI) [Ratio] 32.38 kg/m2 Alondra Broderick MD Work Phone: [facility] 09-17-2023 10:56-0400 Body weight 109.8 kg Alondra Broderick MD Work Phone: [facility] 09-17-2023 10:56-0400 Diastolic blood pressure 88 mm[Hg] Alondra Broderick MD Work Phone: [facility] 09-17-2023 10:56-0400 Heart rate 75 /min Alondra Broderick MD Work Phone: [facility] 09-17-2023 10:56-0400 SaO2% (BldA) [Mass fraction] 95 % Alondra Broderick MD Work Phone: [facility] 09-17-2023 10:56-0400 Systolic blood pressure 128 mm[Hg] Alondra Broderick MD Work Phone: [facility] 08-22-2023 08:57-0400 Body height 184.2 cm Pulm Wstr Work Phone: [facility] 08-22-2023 08:57-0400 Body mass index (BMI) [Ratio] 33.04 kg/m2 Pulm Wstr Work Phone: [facility] 08-22-2023 08:57-0400 Body weight 112.04 kg Pulm Wstr Work Phone: [facility] 08-22-2023 08:57-0400 Heart rate 73 /min Pulm Wstr Work Phone: [facility] 08-22-2023 08:57-0400 Respiratory rate 14 /min Pulm Wstr Work Phone: [facility] 08-22-2023 08:57-0400 SaO2% (BldA) [Mass fraction] 94 % Pulm Wstr Work Phone: [facility] 08-10-2023 08:34-0400 Body mass index (BMI) [Ratio] 32.38 kg/m2 Tobi Sorto MD Work Phone: [facility] 08-10-2023 08:34-0400 Body weight 111.31 kg Tobi Sorto MD Work Phone: [facility] 08-10-2023 08:34-0400 Diastolic blood pressure 68 mm[Hg] Tobi Sorto MD Work Phone: [facility] 08-10-2023 08:34-0400 Heart rate 45 /min Tobi Sorto MD Work Phone: [facility] 08-10-2023 08:34-0400 Respiratory rate 16 /min Tobi Sorto MD Work Phone: [facility] 08-10-2023 08:34-0400 SaO2% (BldA) [Mass fraction] 96 % Tobi Sorto MD Work Phone: [facility] 08-10-2023 08:34-0400 Systolic blood pressure 126 mm[Hg] Tobi Sorto MD Work Phone: [facility] 07-09-2023 07:58-0400 Body height 185.4 cm Audrey Podlogar HAT LINING BLOCKER.WE[employer] ARCHITECT Work Phone: [facility] 07-09-2023 07:58-0400 Body weight 111.04 kg Audrey Podlogar HAT LINING BLOCKER.WE[employer] SOLUTIONS ARCHITECT Work Phone: [facility] 07-09-2023 07:58-0400 Diastolic blood pressure 76 mm[Hg] Audrey Podlogar HAT LINING BLOCKER.[employer] SOLUTIONS ARCHITECT Work Phone: [facility] 07-09-2023 07:58-0400 Heart rate 78 /min Audrey Podlogar HAT LINING BLOCKER.WE[employer] SOL[employer] ARCHITECT Work Phone: [facility] 07-09-2023 07:58-0400 Respiratory rate 16 /min Audrey Podlogar HAT LINING BLOCKER.WE[employer] SOL[employer] ARCHITECT Work Phone: [facility] 07-09-2023 07:58-0400 Systolic blood pressure 112 mm[Hg] Audrey Podlogar HAT LINING BLOCKER.[employer] SOL[employer] ARCHITECT Work Phone: [facility] 07-04-2023 17:27-0400 Body temperature 96.4 [degF] Audrey Podlogar HAT LINING BLOCKER.WE[employer] ARCHITECT Work Phone: [facility] 07-04-2023 17:27-0400 Body weight 111.77 kg Audrey Podlogar HAT LINING BLOCKER.WE[employer] ARCHITECT Work Phone: [facility] 07-04-2023 17:27-0400 Diastolic blood pressure 76 mm[Hg] Audrey Podlogar HAT LINING BLOCKER.WE[employer] SOL[employer] ARCHITECT Work Phone: [facility] 07-04-2023 17:27-0400 Heart rate 83 /min Audrey Podlogar HAT LINING BLOCKER.WEB SOLUTIONS ARCHITECT Work Phone: [facility] 07-04-2023 17:27-0400 Respiratory rate 18 /min Audrey Podlogar HAT LINING BLOCKER.WE[employer]IONS ARCHITECT Work Phone: [facility] 07-04-2023 17:27-0400 SaO2% (BldA) [Mass fraction] 92 % Audrey Podlogar HAT LINING BLOCKER.WE[employer] SOLUTIONS ARCHITECT Work Phone: [facility] 07-04-2023 17:27-0400 Systolic blood pressure 112 mm[Hg] Audrey Podlogar HAT LINING BLOCKER.WE[employer] SOLUTIONS ARCHITECT Work Phone: [facility] 01-05-2023 08:01-0400 Body weight 112.04 kg Audrey Podlogar HAT LINING BLOCKER.[employer] ARCHITECT Work Phone: [facility] 01-05-2023 08:01-0400 Diastolic blood pressure 76 mm[Hg] Audrey Podlogar HAT LINING BLOCKER.WE[employer] SOL[employer] ARCHITECT Work Phone: [facility] 01-05-2023 08:01-0400 Heart rate 80 /min Audrey Podlogar HAT LINING BLOCKER.WEB SOL[employer] ARCHITECT Work Phone: [facility] 01-05-2023 08:01-0400 Respiratory rate 18 /min Audrey Podlogar HAT LINING BLOCKER.WEB SOLUTIONS ARCHITECT Work Phone: [facility] 01-05-2023 08:01-0400 SaO2% (BldA) [Mass fraction] 95 % Audrey Podlogar HAT LINING BLOCKER.WEB SOLUTIONS ARCHITECT Work Phone: [facility] 01-05-2023 08:01-0400 Systolic blood pressure 138 mm[Hg] Audrey Podlogar HAT LINING BLOCKER.WE[employer] ARCHITECT Work Phone: [facility] 11-20-2022 11:16-0400 Body temperature 97.7 [degF] Tobi Sorto MD Work Phone: [facility] 11-20-2022 11:16-0400 Body weight 112.13 kg Tobi Sorto MD Work Phone: [facility] 11-20-2022 11:16-0400 Diastolic blood pressure 74 mm[Hg] Tobi Sorto MD Work Phone: [facility] 11-20-2022 11:16-0400 Heart rate 69 /min Tobi Sorto MD Work Phone: [facility] 11-20-2022 11:16-0400 Respiratory rate 16 /min Tobi Sorto MD Work Phone: [facility] 11-20-2022 11:16-0400 SaO2% (BldA) [Mass fraction] 96 % Tobi Sorto MD Work Phone: [facility] 11-20-2022 11:16-0400 Systolic blood pressure 124 mm[Hg] Tobi Sorto MD Work Phone: [facility] 10-18-2022 08:09-0400 Diastolic blood pressure 82 mm[Hg] Lita Haagen HAT LINING BLOCKER.WE[employer] SOLUTIONS ARCHITECT Work Phone: [facility] 10-18-2022 08:09-0400 Heart rate 84 /min Lita Haagen HAT LINING BLOCKER.WE[employer]IONS ARCHITECT Work Phone: [facility] 10-18-2022 08:09-0400 Respiratory rate 16 /min Lita Haagen HAT LINING BLOCKER.WEB SOLUTIONS ARCHITECT Work Phone: [facility] 10-18-2022 08:09-0400 Systolic blood pressure 116 mm[Hg] Lita Haagen HAT LINING BLOCKER.[employer] SOLUTIONS ARCHITECT Work Phone: [facility] 05-24-2022 09:57-0500 Diastolic blood pressure 85 mm[Hg] Audrey Podlogar HAT LINING BLOCKER.[employer] ARCHITECT Work Phone: [facility] 05-24-2022 09:57-0500 Heart rate 64 /min Audrey Podlogar HAT LINING BLOCKER.WE[employer] ARCHITECT Work Phone: [facility] 05-24-2022 09:57-0500 Systolic blood pressure 142 mm[Hg] Audrey Podlogar HAT LINING BLOCKER.[employer] ARCHITECT Work Phone: [facility] 05-24-2022 09:20-0500 Body weight 110.59 kg Audrey Podlogar HAT LINING BLOCKER.WE[employer] SOLUTIONS ARCHITECT Work Phone: [facility] 05-24-2022 09:20-0500 Respiratory rate 18 /min Audrey Podlogar HAT LINING BLOCKER.WE[employer] ARCHITECT Work Phone: [facility] 05-24-2022 09:20-0500 SaO2% (BldA) [Mass fraction] 97 % Audrey Podlogar HAT LINING BLOCKER.[employer] ARCHITECT Work Phone: [facility] 05-10-2022 08:53-0500 Body height 184.2 cm Pulm Wstr Work Phone: [facility] 05-10-2022 08:53-0500 Body weight 109.77 kg Pulm Wstr Work Phone: [facility] 05-05-2022 09:47-0500 Body height 184.2 cm Pulm Wstr Work Phone: [facility] 05-05-2022 09:47-0500 Body weight 109.77 kg Pulm Wstr Work Phone: [facility] 05-05-2022 09:47-0500 Heart rate 85 /min Pulm Wstr Work Phone: [facility] 05-05-2022 09:47-0500 Respiratory rate 12 /min Pulm Wstr Work Phone: [facility] 05-05-2022 09:47-0500 SaO2% (BldA) [Mass fraction] 97 % Pulm Wstr Work Phone: [facility] 05-01-2022 10:55-0500 Body temperature 97.2 [degF] Audrey Podlogar HAT LINING BLOCKER.[employer]IONS ARCHITECT Work Phone: [facility] 05-01-2022 10:55-0500 Body weight 109.05 kg Audrey Podlogar HAT LINING BLOCKER.[employer] ARCHITECT Work Phone: [facility] 05-01-2022 10:55-0500 Diastolic blood pressure 62 mm[Hg] Audrey Podlogar HAT LINING BLOCKER.WEB SOLUTIONS ARCHITECT Work Phone: [facility] 05-01-2022 10:55-0500 Heart rate 82 /min Audrey Podlogar HAT LINING BLOCKER.WEB SOLUTIONS ARCHITECT Work Phone: [facility] 05-01-2022 10:55-0500 Respiratory rate 18 /min Audrey Podlogar HAT LINING BLOCKER.WEB SOLUTIONS ARCHITECT Work Phone: [facility] 05-01-2022 10:55-0500 SaO2% (BldA) [Mass fraction] 95 % Audrey Podlogar HAT LINING BLOCKER.WEB SOLUTIONS ARCHITECT Work Phone: [facility] 05-01-2022 10:55-0500 Systolic blood pressure 104 mm[Hg] Audrey Packer HAT LINING BLOCKER.WEB SOLUTIONS ARCHITECT Work Phone: [facility] 04-09-2022 12:27-0500 Body temperature 97.11 [degF] Glendy Matos HAT LINING BLOCKER.WEB SOLUTIONS ARCHITECT Work Phone: [facility] 04-09-2022 12:27-0500 Body weight 112.95 kg Glendy Matos HAT LINING BLOCKER.WEB SOLUTIONS ARCHITECT Work Phone: [facility] 04-09-2022 12:27-0500 Diastolic blood pressure 68 mm[Hg] Glendy Matos HAT LINING BLOCKER.WEB SOLUTIONS ARCHITECT Work Phone: [facility] 04-09-2022 12:27-0500 Heart rate 85 /min Glendy Matos HAT LINING BLOCKER.WEB SOLUTIONS ARCHITECT Work Phone: [facility] 04-09-2022 12:27-0500 Respiratory rate 20 /min Glendy Matos HAT LINING BLOCKER.WEB SOLUTIONS ARCHITECT Work Phone: [facility] 04-09-2022 12:27-0500 SaO2% (BldA) [Mass fraction] 98 % Glendy Matos HAT LINING BLOCKER.WEB SOLUTIONS ARCHITECT Work Phone: [facility] 04-09-2022 12:27-0500 Systolic blood pressure 108 mm[Hg] Glendy Matos HAT LINING BLOCKER.WEB SOLUTIONS ARCHITECT Work Phone: [facility] 02-22-2022 10:28-0500 Body temperature 98.29 [degF] Tobi Sorto MD Work Phone: [facility] 02-22-2022 10:28-0500 Body weight 111.86 kg Tobi Sorto MD Work Phone: [facility] 02-22-2022 10:28-0500 Diastolic blood pressure 76 mm[Hg] Tobi Sorto MD Work Phone: [facility] 02-22-2022 10:28-0500 Heart rate 72 /min Tobi Sorto MD Work Phone: [facility] 02-22-2022 10:28-0500 Respiratory rate 16 /min Tobi Sorto MD Work Phone: [facility] 02-22-2022 10:28-0500 Systolic blood pressure 120 mm[Hg] Tobi Sorto MD Work Phone: [facility] 08-15-2021 08:06-0400 Body temperature 96.91 [degF] Audrey Podlogar HAT LINING BLOCKER.WEB SOLUTIONS ARCHITECT Work Phone: [facility] 08-15-2021 08:06-0400 Body weight 111.4 kg Audrey Podlogar HAT LINING BLOCKER.WEB SOLUTIONS ARCHITECT Work Phone: [facility] 08-15-2021 08:06-0400 Diastolic blood pressure 78 mm[Hg] Audrey Podlogar HAT LINING BLOCKER.WEB SOLUTIONS ARCHITECT Work Phone: [facility] 08-15-2021 08:06-0400 Heart rate 84 /min Audrey Podlogar HAT LINING BLOCKER.WEB SOLUTIONS ARCHITECT Work Phone: [facility] 08-15-2021 08:06-0400 Respiratory rate 20 /min Audrey Podlogar HAT LINING BLOCKER.WEB SOLUTIONS ARCHITECT Work Phone: [facility] 08-15-2021 08:06-0400 SaO2% (BldA) [Mass fraction] 96 % Audrey Podlogar HAT LINING BLOCKER.WEB SOLUTIONS ARCHITECT Work Phone: [facility] 08-15-2021 08:06-0400 Systolic blood pressure 138 mm[Hg] Audrey Podlogar HAT LINING BLOCKER.WEB SOLUTIONS ARCHITECT Work Phone: [facility] 07-04-2021 09:26-0400 Body weight 114.67 kg Audrey Podlogar HAT LINING BLOCKER.WEB SOLUTIONS ARCHITECT Work Phone: [facility] 07-04-2021 09:26-0400 Diastolic blood pressure 76 mm[Hg] Audrey Podlogar HAT LINING BLOCKER.WEB SOLUTIONS ARCHITECT Work Phone: [facility] 07-04-2021 09:26-0400 Heart rate 56 /min Audrey Podlogar HAT LINING BLOCKER.WEB SOLUTIONS ARCHITECT Work Phone: [facility] 07-04-2021 09:26-0400 Respiratory rate 18 /min Audrey Podlogar HAT LINING BLOCKER.WEB SOLUTIONS ARCHITECT Work Phone: [facility] 07-04-2021 09:26-0400 SaO2% (BldA) [Mass fraction] 97 % Audrey Podlogar HAT LINING BLOCKER.WEB SOLUTIONS ARCHITECT Work Phone: [facility] 07-04-2021 09:26-0400 Systolic blood pressure 126 mm[Hg] Audrey Podlogar HAT LINING BLOCKER.WEB SOLUTIONS ARCHITECT Work Phone: [facility] Encounters Encounter Date Encounter Type Care Provider Facility Start: 10-14-2024 ambulatory RAO Zacarias ty:[facility] Start: 10-14-2024 End: 10-14-2024 Subsequent hospital visit by physician Adebayo [facility] [place] Work Phone: Radiology Comment [...] Start: 10-14-2024 End: 10-14-2024 ambulatory TOBI SORTO Facility:[facility] Start: 10-13-2024 End: 10-13-2024 Refill Tobi Sorto MD Work Phone: [facility] [place] Comment on above: Refill Request Start: 09-22-2024 End: 09-24-2024 Refill Tobi Sorto MD Work Phone: [facility] [place] Comment on above: Refill Request Start: 09-18-2024 End: 09-18-2024 Patient encounter procedure Rao Hillman Work Phone: Podiatry Comment on above: 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, with fat layer exposed, unspecified laterality (HCC) (Primary Dx) Snoring; Daytime somnolence Start: 09-18-2024 End: 09-18-2024 ambulatory TOBI SORTO Facility:[facility] Start: 09-17-2024 End: 09-18-2024 ambulatory TOBI SORTO Facility:[facility] Start: 09-14-2024 End: 09-16-2024 Refill Tobi Sorto MD Work Phone: [facility] [place] Comment on above: Refill Request Start: 09-11-2024 End: 09-17-2024 Refill Rao Hillman Work Phone: Podiatry Comment on above: Med Change Request Start: 09-11-2024 ambulatory TOBI SORTO Facility:[facility] Start: 09-11-2024 End: 09-11-2024 Subsequent hospital visit by physician [facility] [place] Work Phone: Radiology Comment on above: [...] Start: 09-11-2024 End: 09-11-2024 ambulatory TOBI SORTO Facility:[facility] Start: 09-04-2024 End: 09-04-2024 Patient encounter procedure Audrey Packer APRN.CNP Work Phone: [facility] [place] Comment on above: Facial cellulitis (P rimary Dx); Chronic cough; Tobacco use Start: 09-04-2024 End: 09-04-2024 ambulatory AUDREY PODARMAAN Facility:[facility] Start: 09-01-2024 End: 09-01-2024 Patient encounter procedure Audrey Packer HAT LINING BLOCKER.WEB SOLUTIONS ARCHITECT Work Phone: [facility] [place] Comment on above: Facial cellulitis (P rimary Dx) Start: 09-01-2024 End: 09-01-2024 ambulatory TOBI SORTO Facility:[facility] Start: 08-27-2024 End: 08-27-2024 Refill Tobi Sorto MD Work Phone: [facility] [place] Comment on above: Refill Request Start: 08-26-2024 End: 09-22-2024 [facility] Work Phone: Neurology Start: 08-19-2024 End: 08-19-2024 ambulatory TOBI SORTO Facility:[facility] Start: 08-18-2024 End: 08-18-2024 Refill Tobi Sorto MD Work Phone: [facility] [place] Comment on above: Refill Request Patient Update Start: 08-14-2024 End: 08-14-2024 Refill Tobi Sorto MD Work Phone: [facility] [place] Comment on above: Refill Request Start: 08-03-2024 End: 08-04-2024 Refill Alondra Broderick MD Work Phone: Pulmonary Medicine Comment on above: Refill Request Start: 07-21-2024 End: 07-21-2024 Telephone encounter Tobi Sorto MD Work Phone: [facility] [place] Comment on above: Patient Update Start: 07-16-2024 End: 07-16-2024 Subsequent hospital visit by physician Xr [facility] [place] Work Phone: Radiology Comment on above: Abnormal lung sounds [R09.89] Start: 07-16-2024 End: 07-16-2024 Patient encounter procedure Audrey Woodsloganiya HAT LINING BLOCKER.WEB SOLUTIONS ARCHITECT Work Phone: [facility] [place] Comment on [...] Tobi Sorto MD Work Phone: [facility] [place] Start: 07-14-2024 End: 07-14-2024 ambulatory TOBI SORTO Facility:[facility] Start: 07-14-2024 End: 07-14-2024 Subsequent hospital visit by physician [facility] Work Phone: Radiology Comment on above: Stage 3a chronic kid vi disease (HCC) [N18.31] Start: 07-11-2024 End: 07-11-2024 ambulatory TOBI SORTO Facility:[facility] Start: 07-09-2024 End: 07-09-2024 Follow-up encounter Tobi Sorto MD Work Phone: [facility] [place] Comment on above: Results Start: 07-08-2024 End: 07-08-2024 Patient encounter procedure Tobi Sorto MD Work Phone: [facility] [place] Comment on above: Type 2 diabetes inga itus with peripheral neuropathy (HCC) (Primary Dx); Sleep disturbance; Essential hypertension, benign; Hypercholesteremia; Restless leg syndrome; Skin lesion; Productive cough; Tobacco use disorder; Encounter for immunization Start: 07-08-2024 End: 07-08-2024 ambulatory TOBI SORTO Facility:[facility] Start: 06-30-2024 End: 07-07-2024 Follow-up encounter Tobi Sorto MD Work Phone: [facility] [place] Comment on above: Results Start: 06-26-2024 End: 06-26-2024 ambulatory AUDREY PODLOGAR Facility:[facility] Start: 06-09-2024 End: 06-09-2024 ambulatory TOBI SORTO Facility:[facility] Start: 06-09-2024 End: 06-09-2024 Patient encounter procedure Rao Hillman Work Phone: Podiatry Comment on above: Onychomycosis (Prima ry Dx); Pain in toe of left foot; Pain in toe of right foot; Callus of foot; Type 2 diabetes mellitus with peripheral neuropathy (HCC) Start: 06-03-2024 End: 06-04-2024 Refill Tobi Sorto MD Work Phone: [place] Comment on above: Refill Request Start: 05-28-2024 End: 2024 Telephone encounter Audrey Packer APRN.[facility] Work Phone: Administration Comment on above: Medication Problem ( Med refill.) Start: 05-13-2024 End: 05-13-2024 Refill Tobi Sorto MD Work Phone: [address] [place] [address] Comment on above: Refill Request Start: 04-28-2024 End: 04-28-2024 Refill Tobi Sorto MD Work Phone: [facility] [place] Comment on above: Refill Request Start: 04-25-2024 End: 04-25-2024 Refill Tobi Sorto MD Work Phone: [facility] [place] Comment on above: Refill Request Start: 04-09-2024 End: 04-09-2024 Patient encounter procedure Tobi Sorto MD Work Phone: [facility] [place] Comment on above: Restless leg syndrom e (Primary Dx) Start: 04-09-2024 End: 04-09-2024 ambulatory TOBI SORTO Facility:[facility] Start: 04-08-2024 End: 04-08-2024 Telephone encounter Tobi Sorto MD Work Phone: [facility] [place] Comment on above: Patient Update Start: 03-25-2024 End: 03-25-2024 Refill Tobi Sorto MD Work Phone: [facility] [place] Comment on above: Refill Request Start: 03-24-2024 End: 03-24-2024 Refill Alondra Broderick MD Work Phone: Pulmonary Medicine Comment on above: Refill Request Start: 03-10-2024 End: 03-10-2024 Subsequent hospital visit by physician Adebayo [facility] [place] Work Phone: Radiology Comment on above: Chronic pain of righ t ankle [M25.571, G89.29] Start: 03-10-2024 End: 03-10-2024 ambulatory TOBI SORTO Facility:[facility] Start: 03-10-2024 End: 03-10-2024 Patient encounter procedure Rao Preciadogreg Work Phone: Podiatry Comment on above: Diabetic polyneuropa thy associated with diabetes mellitus due to underlying condition (HCC) (Primary Dx); Onychomycosis; Pain in toe of left foot; Pain in toe of right foot; Callus of foot; Chronic pain of right ankle Start: 03-07-2024 End: 03-07-2024 Telephone encounter Tobi Sorto MD Work Phone: [facility] [place] Comment on above: Results Start: 03-04-2024 End: 03-04-2024 Patient encounter procedure Audrey Packer APRN.CNP Work Phone: [facility] [place] Comment on above: Restless leg syndrom e (Primary Dx) Start: 03-04-2024 End: 03-04-2024 ambulatory AUDREY PODLOGANIYA Facility:[facility] Start: 03-03-2024 End: 03-03-2024 Refill Tobi Sorto MD Work Phone: [facility] [place] Comment on above: Refill Request Start: 02-26-2024 End: 02-29-2024 Refill Tobi Sorto MD Work Phone: [facility] [place] Comment on above: Refill Request Start: 02-21-2024 End: 02-22-2024 [facility] Work Phone: Neurology Start: 02-21-2024 End: 02-21-2024 Refill Ny Mckeonabbey SIDDIQIWEB SOLUTIONS ARCHITECT Work Phone: [facility] [place] Comment on above: Med Change Request Start: 02-20-2024 End: 02-20-2024 Refill Tobi Sorto MD Work Phone: [facility] [place] Comment on above: Refill Request Start: 02-12-2024 End: 02-20-2024 Telephone encounter Tobi Sorto MD Work Phone: [facility] [place] Comment on above: Orders Start: 02-07-2024 End: 02-07-2024 Refill Alondra Broderick MD Work Phone: Pulmonary Medicine Comment on above: Refill Request Start: 02-06-2024 End: 02-06-2024 ambulatory ROLANDO JEAN Facility:[facility] Start: 02-06-2024 End: 02-06-2024 Patient encounter procedure Rolando Jean MD Work Phone: [facility] Comment on above: Peripheral arterial disease (HCC) (Primary Dx); Hypercholesteremia Start: 01-28-2024 End: 01-28-2024 Refill Tobi Sorto MD Work Phone: [facility] Comment on above: Refill Request Start: 01-21-2024 End: 01-21-2024 Refill Tobi Sorto MD Work Phone: [facility] Comment on above: Refill Request Start: [...] End: 01-08-2024 Patient encounter procedure Audrey Packer APRN.WEB SOLUTIONS ARCHITECT Work Phone: [facility] [place] Comment on above: Type 2 diabetes inga itus with peripheral neuropathy (HCC) (Primary Dx); Essential hypertension, benign; Restrictive lung disease; Restless leg syndrome; Peripheral arterial disease (HCC); Hyperlipidemia with target LDL less than 100; Claustrophobia Start: 01-08-2024 End: 01-08-2024 ambulatory AUDREY PODLOGANIYA Facility:[facility] Start: 12-19-2023 End: 12-21-2023 Telephone encounter Tobi Sorto MD Work Phone: [facility] [place] Start: 12-05-2023 End: 12-05-2023 Patient encounter procedure Audrey Packer APRN.WEB SOLUTIONS ARCHITECT Work Phone: [facility] [place] Comment on above: Muscle spasms of bot h lower extremities (Primary Dx); Type 2 diabetes mellitus with peripheral neuropathy (HCC); Loss of taste Start: 12-05-2023 End: 12-05-2023 ambulatory AUDREY PODLOGANIYA Facility:[facility] Start: 12-04-2023 End: 12-04-2023 ambulatory RAO HILLMAN Facility:[facility] Start: 12-04-2023 End: 12-04-2023 Patient encounter procedure Rao Hillman Work Phone: Podiatry Comment on above: Diabetic polyneuropa thy associated with diabetes mellitus due to underlying condition (HCC) (Primary Dx); Onychomycosis; Pain in toe of left foot; Pain in toe of right foot; Callus of foot Start: 11-27-2023 End: 11-27-2023 Refill Tobi Sorto MD Work Phone: [facility] [place] Comment on above: Refill Request Start: 11-05-2023 Refill Tobi Sorto MD Work Phone: [facility] Comment on above: Refill Request Start: 10-09-2023 [...] Refill Tobi Sorto MD Work Phone: [facility] Comment on above: Refill Request Start: 09-17-2023 End: 09-17-2023 ambulatory ALONDRA BRODERICK Facility:[facility] Start: 09-17-2023 End: 09-17-2023 Patient encounter procedure Alondra Broderick MD Work Phone: Pulmonary Medicine Comment on above: History of environme ntal allergies (Primary Dx); Restrictive lung disease; Mild intermittent asthma without complication; Current smoker; Undiagnosed JOSE (obstructive sleep apnea) Start: 09-10-2023 Refill Tobi Sorto MD Work Phone: [facility] Comment on above: Refill Request Start: 09-04-2023 Refill Tobi Sorto MD Work Phone: [facility] Comment on above: Refill Request requesting medicatii on that is Results Start: 09-03-2023 Telephone encounter Salty Sorto MD Work Phone: [facility] Comment on above: Orders Start: 09-03-2023 End: 09-03-2023 ambulatory Pulm Lab [facility] Work Phone: [facility]ULM [facility] Comment on above: Spirometry Start: 09-03-2023 End: 09-03-2023 Patient encounter procedure [facility] Work Phone: [facility] Start: 08-31-2023 Telephone encounter Salty Sorto MD Work Phone: [facility] [place] Comment on above: Results Start: 08-28-2023 Telephone encounter Audrey velez APRN.WEB SOLUT[employer] ARCHITECT Work Phone: [facility] [place] Comment on above: Results Start: 08-22-2023 End: 08-22-2023 ambulatory Pul[facility] Work Phone: [facility] Comment on above: Spirometry Start: 08-22-2023 End: 08-22-2023 Patient encounter procedure [facility] Work Phone: [facility] Start: 08-17-2023 Telephone encounter Salty Sorto MD Work Phone: [facility] [place] Comment on above: Patient Update Start: 08-13-2023 Telephone encounter Salty Sorto MD Work Phone: [facility] [place] Comment on above: Results Refill Request Start: 08-10-2023 End: 08-10-2023 Subsequent hospital visit by physician Xr [facility] [place] Work Phone: Radiology Comment on above: Persistent cough for 3 weeks or longer [R05.3] Start: 08-10-2023 End: 08-10-2023 Patient encounter procedure Tobi Sorto MD Work Phone: [facility] Comment on above: Persistent cough for 3 weeks or longer (Primary Dx); Irregular heartbeat; Bigeminy; PAC (premature atrial contraction); Bradycardia; Abnormal EKG Start: 08-06-2023 Refill Tobi Sorto MD Work Phone: [facility] Comment on above: Refill Request Start: 07-23-2023 End: 07-23-2023 Patient encounter procedure Rao Kady Work Phone: Podiatry Comment on above: Callus of foot (Prim bonnie Dx); Hammertoe of left foot; Type 2 diabetes mellitus with peripheral neuropathy (HCC) Start: 07-09-2023 End: 07-09-2023 Patient encounter procedure Audrey Packer APRN.WE[employer] SOLUTIONS ARCHITECT Work Phone: [facility] [place] Comment on above: Type 2 diabetes inga itus with peripheral neuropathy (HCC) (Primary Dx); Hyperlipidemia with target LDL less than 100; Peripheral arterial disease (HCC); Essential hypertension, benign; Restless leg syndrome Start: 07-04-2023 End: 07-04-2023 Patient encounter procedure Audrey Packer APRN.CNP Work Phone: [facility] [place] Comment on above: Upper respiratory tr act infection, unspecified type (Primary Dx); Sinus pressure Start: 05-14-2023 Refill Rao Wilian mendez Work Phone: Podiatry Comment on above: Med Change Request Start: 05-11-2023 Telephone encounter Audrey velez APRN.CNP Work Phone: [facility] [place] Comment on above: Results Start: 05-10-2023 End: [...] 04-09-2023 Refill Tobi Sorto MD Work Phone: [facility] [place] Comment on above: Refill Request (see rx notes) Start: 02-26-2023 Refill Tobi Sorto MD Work Phone: [facility] [place] Comment on above: Refill Request Start: 02-05-2023 Refill Tobi Sorto MD Work Phone: [facility] [place] Comment on above: Refill Request Start: 01-08-2023 Telephone encounter Audrey velez APRN.CNP Work Phone: [facility] [place] Comment on above: Results Start: 01-05-2023 End: 01-05-2023 Patient encounter procedure Audrey Packer APRN.CNP Work Phone: [facility] Comment on above: Type 2 diabetes [...] Telephone encounter Salty Sorto MD Work Phone: [facility] Comment on above: Results Start: 11-20-2022 End: 11-20-2022 Subsequent hospital visit by physician Adebayo [facility] [place] Work Phone: Radiology Comment on above: Chronic cough [R05.3 ] Start: 11-20-2022 End: 11-20-2022 Patient encounter procedure Tobi Sorto MD Work Phone: [facility] Comment on above: Decreased breath catherine [...] peripheral neuropathy (HCC); PAD (peripheral artery disease) ([facility]) Refill Request Start: 11-07-2022 Telephone encounter Rao Reese Work Phone: Podiatry Comment on above: Patient Question; Or ders Start: 11-07-2022 End: 11-07-2022 Subsequent hospital visit by physician Adebayo [facility] [place] Work Phone: Radiology Comment on above: Charcot ankle, right [M14.671] Start: 10-18-2022 End: 10-18-2022 Subsequent hospital visit by physician Adebayo [facility] [place] Work Phone: Radiology Comment on above: Foot pain, right [M7 9.671] Start: 10-18-2022 End: 10-18-2022 Office outpatient visit 25 minutes Lita Abel APRN.WE[employer] SOLUTIONS ARCHITECT Work Phone: [facility] [place] Comment on above: Foot pain, right (Pr imary Dx); Cellulitis of skin; Foot swelling Start: 09-18-2022 Refill Tobi Sorto MD Work Phone: [facility] [place] Comment on above: Refill Request Start: 08-29-2022 Refill Tobi Sorto MD Work Phone: [facility] [place] Comment on above: Refill Request Start: 07-20-2022 ambulatory [facility] Comment on above: Population Health Na vigation Outreach ([employer] care gap) Start: 07-12-2022 Refill Tobi Sorto MD Work Phone: [facility] [place] Comment on above: Refill Request Start: 07-07-2022 Telephone encounter Salty Sorto MD Work Phone: [facility] [place] Comment on above: Results Start: 06-29-2022 Refill Tobi Sorto MD Work Phone: [facility] [place] Comment on above: Refill Request Start: 06-05-2022 End: 06-05-2022 Patient encounter procedure Rao Hillman Work Phone: Podiatry Comment on above: Onychomycosis (Prima ry Dx); Pain in toe of right foot; Pain in toe of left foot; Hyperkeratosis; Type 2 diabetes mellitus with peripheral neuropathy (HCC); PAD (peripheral artery disease) (HCC) Start: 06-01-2022 Refill Tobi Sorto MD Work Phone: [facility] [place] Comment on above: Refill Request Start: 05-24-2022 End: 05-24-2022 Patient encounter procedure Audrey Packer APRN.WE[employer] SOLUTIONS ARCHITECT Work Phone: [facility] [place] Comment on above: Cough, unspecified t ype (Primary Dx); Essential hypertension, benign; Irregular heart beat Start: 05-10-2022 End: 05-10-2022 ambulatory Pulm Lab [facility] Work Phone: PULM LAB [facility] Comment on above: Spirometry Start: 05-10-2022 End: 05-10-2022 Patient encounter procedure [facility] Start: 05-05-2022 Telephone encounter Audrey velez APRN.WE[employer] SOLUTIONS ARCHITECT Work Phone: [facility] [place] Comment on above: Results Start: 05-05-2022 End: 05-05-2022 ambulatory [facility] Work Phone: [facility] Comment on above: Spirometry Start: 05-05-2022 End: 05-05-2022 Patient encounter procedure [facility] Work Phone: [facility] Start: 05-01-2022 End: 05-01-2022 Patient encounter procedure Audrey Packer APRN.WE[employer] SOLUT[employer] ARCHITECT Work Phone: [facility] [place] Comment on above: Chronic cough (Prima ry Dx); C. difficile diarrhea; Essential hypertension, benign Start: 04-28-2022 Refill Tobi Sorto MD Work Phone: [facility] [place] Comment on above: Refill Request Start: 04-20-2022 End: 04-20-2022 Subsequent hospital visit by physician [facility] Work Phone: [facility] Comment on above: Thunderclap headache [G44.53] Start: 04-17-2022 Telephone encounter Salty Sorto MD Work Phone: [facility] [place] Comment on above: Patient Question Start: 04-12-2022 Telephone encounter Veronica richardson PA-C Work Phone: [facility] Comment on above: Results Start: 04-11-2022 Telephone encounter Glendy Lester morales HAT LINING BLOCKER.WE[employer]UTIONS ARCHITECT Work Phone: [facility] Comment on above: Results Start: 04-10-2022 End: 04-10-2022 Subsequent hospital visit by physician Xr [facility] [facility] Work Phone: Radiology Comment on above: Chronic sinusitis, u nspecified location [J32.9] Start: 04-10-2022 End: 04-10-2022 Patient encounter procedure Rao Frey MD Work Phone: Otolaryngology Comment on above: Thunderclap headache (Primary Dx); Chronic sinusitis, unspecified location; Chronic cough; Sore throat Start: 04-09-2022 End: 04-09-2022 Patient encounter procedure Glendy Matos HAT LINING BLOCKER.WEB SOLUTIONS ARCHITECT Work Phone: [facility] Comment on above: Pharyngitis, unspeci fied etiology (Primary Dx); Diarrhea, unspecified type; Sinus pressure Start: 04-04-2022 ambulatory Tobi Sorto MD Work Phone: [facility] [place] Comment on above: Diarrhea Start: 03-15-2022 Telephone encounter Salty Sorto MD Work Phone: [facility] [place] Comment on above: Peer to Peer to be d one Start: 03-09-2022 Refill Tobi Sorto MD Work Phone: [facility] [place] Comment on above: Refill Request Start: 03-08-2022 Telephone encounter Salty Sorto MD Work Phone: [facility] [place] Comment on above: Patient Update Start: 03-03-2022 Refill Tobi Sorto MD Work Phone: [facility] [place] Comment on above: Refill Request Start: 03-01-2022 ambulatory Tobi Sorto MD Work Phone: [facility] [place] Comment on above: Sinusitis Start: [...] encounter Salty Sorto MD Work Phone: [facility] [place] Comment on above: Medication Problem Start: 01-04-2022 Telephone encounter Audrey velez APRN.WEB SOLUTIONS ARCHITECT Work Phone: [facility] [place] Comment on above: Results Start: 10-20-2021 Telephone encounter Salty Sorto MD Work Phone: [facility] [place] Comment on above: Medication Question Start: 10-14-2021 Refill Tobi Sorto MD Work Phone: [facility] [place] Comment on above: Refill Request Start: 10-13-2021 ambulatory Odalis Stokes MA [facility] Comment on above: Population Health Na vigation Outreach ([employer] Gaps ) Start: 08-15-2021 End: 08-15-2021 Subsequent hospital visit by physician Adebayo [facility] [place] Work Phone: Radiology Comment on above: Pain in right lumbar region of back [M54.50] Start: 08-15-2021 End: 08-15-2021 Patient encounter procedure Audrey Packer APRN.WEB SOLUTIONS ARCHITECT Work Phone: [facility] [place] Comment on [...] diabetes inga itus with microalbuminuria, unspecified whether mcc insulin use (HCC) (Primary Dx); Essential hypertension, benign; Restless leg syndrome; Hyperlipidemia with target LDL less than 100 Start: 06-21-2021 End: 06-21-2021 Patient encounter procedure Mary Carmen Jara APRN.CNP Work Phone: Dermatology Comment on above: Seborrheic keratosis (Primary Dx) Start: 07-15-2020 End: 07-15-2020 Subsequent hospital visit by physician Adebayo [facility] [place] Work Phone: Radiology Comment on above: Right leg pain [M79. 604] Procedures Date Procedure Procedure Detail Performing Clinician Start: 10-14-2024 Radex toe minimum 2 views Rao Hillman Work Phone: Start: 09-18-2024 Sleep std airflow hr t rate&o2 sat effort unatt Tobi Sorto MD Work Phone: Start: 07-16-2024 Radiologic exam ches t 2 views Audrey Packer APRN.WEB SOLUTIONS ARCHITECT Work Phone: Start: 07-03-2024 Blood occult fecal [...] foot complete minimum 3 views Lita Abel HAT LINING BLOCKER.WEB SOLUTIONS ARCHITECT Work Phone: Start: 05-10-2022 Plethysmography lung volumes w/wo airway resist Audrey Podlogar HAT LINING BLOCKER.WEB SOLUTIONS ARCHITECT Work Phone: Start: 05-05-2022 Brncdilat rspse spmt ry pre&post-brncdilat admn Audrey Podlogar HAT LINING BLOCKER.WEB SOLUTIONS ARCHITECT Work Phone: Start: 04-20-2022 Ct angiography head w/contrast/noncontrast Rao Frey MD Work Phone: Start: 04-10-2022 Radiologic exam ches t 2 views Rao Frey MD Work Phone: Start: 04-09-2022 STREP A MOLECULAR (POC) Glendy Matos HAT LINING BLOCKER.WEB SOLUTIONS ARCHITECT Work Phone: Start: 08-15-2021 Radex spine lumbosac ral 2/3 views Audrey Podlogar HAT LINING BLOCKER.WEB SOLUTIONS ARCHITECT Work Phone: Start: 07-15-2020 Radex spine lumbosac ral 2/3 views Tobi Sorto MD Work Phone: Start: 06-11-2020 Adult depression scr eening assessment Mary Carmen Jara HAT LINING BLOCKER.WEB SOLUTIONS ARCHITECT Work Phone: Start: 09-12-2018 Colonoscopy Mary Carmengeeta valerio APRN.WEB SOLUTIONS ARCHITECT Work Phone: Plan of Treatment Date Care Activity Detail Author Start: 11-22-2028 Urine microalbumin profile [facility] Start: 09-12-2028 Colonoscopy COLONOSCOPY [facility] Start: 09-12-2028 COLORECTAL CANCER SCREENING COLORECTAL CANCER SCREENING [facility] Start: 09-12-2028 Screening for malign ant neoplasm of colon [facility] Start: 09-04-[address]25 [address] PCP Team [address] [facility] Clerk jennifer Disease Visit Annual PCP Team Chronic Disease Visit [facility] Start: 09-01-[address]25 [address] PCP Team [address] Clerk jennifer Disease Visit Annual PCP Team Chronic Disease Visit [facility] Start: 08-19-2025 Annual PCP Team [facility] Clerk jennifer Disease Visit Annual PCP Team Chronic Disease Visit [facility] Start: 07-26-2025 Glaucoma screening Dilated Retinal E xam [facility] Start: 07-16-[address]25 [address]CP Team [address] Clerk jennifer Disease Visit Annual PCP Team Chronic Disease Visit [facility] Start: 07-08-[address]25 [address] Team [address] Clerk jennifer Disease Visit Annual PCP Team Chronic Disease Visit [facility] Start: 07-08-2025 RSV Vaccine (1 - Ris k 60-74 years 1-dose series) RSV Vaccine (1 - Risk 60-74 years 1-dose series) [facility] Comment on above: Postponed from 07/10 (Declined at this time) Start: 07-08-2025 Shingrix Vaccine (1 of 2) Carrillo grix Vaccine (1 of 2) [facility] Comment on above: Postponed from 07/10 (Declined at this time) Start: 07-03-2025 Screening for malign ant neoplasm of colon Fecal Occult Blood [facility] Start: 04-09-[address]25 [address] PCP Team [facility] [address] Clerk jennifer Disease Visit Annual PCP Team Chronic Disease Visit [facility] Start: 04-09-2025 BP Controlled (<130/80) BP Controlle d (<130/80) [facility] Start: 03-04-2025 [address] PCP Team [facility] Clerk jennifer Disease Visit Annual PCP Team Chronic Disease Visit [facility] Start: 03-04-2025 BP Controlled (<130/80) BP Controlle d (<130/80) [facility] Start: 01-07-2025 [address] PCP Team [facility] [address] Clerk jennifer Disease Visit Annual PCP Team Chronic Disease Visit [facility] Start: 01-07-2025 Covid-19 Vaccine ( season) Covid-19 Vaccine () [facility] Comment on above: Postponed from 12/01 (Declined at this time) Start: 01-07-2025 Diabetic foot examination Diabetic F oot Exam [facility] Start: 01-07-2025 Hemoglobin A1c measurement HbA1C [facility] Start: 01-07-2025 End: 01-07-2025 Patient encounter procedure 01/07/2025 10:00 AM EDT Office Visit [facility] [address] [place] [address] PodlogarAudrey APRN.WEB SOLUTIONS ARCHITECT [address] [place] [address] 6 month follow up [facility] [place] Comment on above: 6 month follow up Start: 12-04-[address]24 [address] Team [address] Clerk jennifer Disease Visit Annual PCP Team Chronic Disease Visit [facility] Start: 12-01-2024 Influenza vaccination [facility] Start: 10-28-2024 End: 10-28-2024 Patient encounter procedure 10/28/2024 8:30 AM EDT Office Visit Podiatry [address] [place] [address] Rao Hillman [address] [place] [address] 1 week follow up diabetic left great toe ulcer Podiatry Comment on above: 1 week follow up alexandra betic left great toe ulcer Start: 10-14-2024 End: 10-14-2024 Patient encounter procedure 10/14/2024 8:45 AM EDT Office Visit Podiatry [address] [place] [address] Rao Hillman [address] [place] [address] 1 week follow up diabetic left great toe ulcer Podiatry Comment on above: 1 week follow up alexandra betic left great toe ulcer Start: 09-29-2024 Influenza vaccination Influenza Vacc ine (#1) [facility] Comment on above: Postponed from 12/01 (Declined [...] EDT Office Visit [facility] [place] [address] [place], [place] [id number] PodlogarAudrey APRN.WEB SOLUTIONS ARCHITECT [address] [place] [address] Follow up [facility] [place] Comment on above: Follow up Start: 09-01-2024 End: 12-01-2024 C reactive protein [Mass/volume] in Serum or Plasma [facility] Work Phone: Comment on above: Expected: 09/01/2024 , Expires: 12/01/2024 Start: 09-01-2024 End: 12-01-2024 Comprehensive metabolic 2000 panel - Serum or Plasma [facility] Comment on above: Expected: 09/01/2024 , Expires: 12/01/2024 Start: 08-30-2024 End: 11-29-2024 Ferritin [Mass/volume] in Serum or Plasma FERRITIN Lab Routine Low ferritin level Expected: 08/30/2024, Expires: 11/29/2024 [facility] Comment on above: Expected: 08/30/2024 , Expires: 11/29/2024 Start: 08-30-2024 End: 11-29-2024 Iron and Iron binding capacity panel - Serum or Plasma IRON AND TIBC Lab Routine Low ferritin level Expected: 08/30/2024, Expires: 11/29/2024 [facility] Work Phone: Comment on above: Expected: 08/30/2024 , Expires: 11/29/2024 Start: 08-22-2024 Hepatitis B screening Urine Albumin:Creatinine Ratio [facility] Start: 08-22-2024 Hepatitis B surface antibody level LDL Cholesterol [facility] Start: 08-19-2024 End: 08-19-2024 Patient encounter procedure 08/19/2024 12:40 PM EDT Office Visit [facility] [address] [place], [place] [id number] Tobi Sorto MD [address] [place], [place] [id number] Discuss failed sleep medications. See TE 08/18/24. [facility] [place] Comment on above: Discuss failed sleep medications. See TE 08/18/24. Start: 08-09-[address]CP Team [address] Clerk jennifer Disease Visit Annual PCP Team Chronic Disease Visit [facility] Start: 08-09-2024 BP Controlled (<130/80) BP Controlle d (<130/80) [facility] Start: 07-09-2024 End: 10-08-2024 Urinalysis complete panel - Urine URINALYSIS, WITH MICROSCOPIC Lab Routine Stage 3a chronic kidney disease (HCC) Expected: 07/09/2024, Expires: 10/08/2024 [facility] Work Phone: Comment on above: Expected: 07/09/2024 , Expires: 10/08/2024 Start: 07-08-[address]24 [address] Team [address] Clerk jennifer Disease Visit Annual PCP Team Chronic Disease Visit [facility] Start: 07-08-2024 BP Controlled (<130/80) BP Controlle d (<130/80) [facility] Start: 07-08-2024 Diabetic foot examination Diabetic F oot Exam [facility] Start: 07-08-2024 End: 07-08-2024 Patient encounter procedure 07/08/2024 8:00 AM EDT Office Visit [facility] [address] [place], [place] [address] Tobi Sorto MD [address] [place], [place] [id number] 6 month follow up [facility] [place] Comment on above: 6 month follow up Start: 07-03-2024 Annual PCP Team [facility] [address] Clerk jennifer Disease Visit Annual PCP Team Chronic Disease Visit [facility] Start: 07-03-2024 BP Controlled (<130/80) BP Controlle d (<130/80) [facility] Start: 06-09-2024 End: 06-09-2024 Patient encounter procedure 06/09/2024 8:30 AM EDT Office Visit Podiatry [address] [place] [address] Rao Hillman [address] [address] 3 month follow up, diabetic foot care Podiatry Comment on above: 3 month follow up, d iabetic foot care Start: 06-03-2024 Hemoglobin A1c measurement HbA1C [facility] Start: 04-15-2024 End: 07-15-2024 Ferritin [Mass/volume] in Serum or Plasma FERRITIN Lab Routine Restless leg syndrome Expected: 04/15/2024, Expires: 07/15/2024 [facility] Comment on above: Expected: 04/15/2024 , Expires: 07/15/2024 Start: 04-09-2024 End: 04-09-2024 Patient encounter procedure 04/09/2024 10:40 AM EST Office Visit [facility] [place] [address] [place] [address] Tobi Sorto MD [address] [place] [address] Restless/muscle spasms Leg follow up [facility] [place] Comment on above: Restless/muscle spas ms Leg follow up Start: 04-02-2024 Advance Directive Discussion Advance Directive Discussion [facility] Start: 04-02-2024 Medicare Advantage A nnual Wellness Visit Medicare Advantage Annual Wellness Visit [facility] Start: 03-10-2024 End: 03-10-2024 Patient encounter procedure Podiatry Comment on above: 3 month follow up Start: 03-04-2024 End: 06-03-2024 Iron and Iron binding capacity panel - Serum or Plasma [facility] Work Phone: Comment on above: Expected: 03/04/2024 , Expires: 06/03/2024 Start: 03-04-2024 End: 03-04-2024 Patient encounter procedure 03/04/2024 9:20 AM EST Office [facility] [address] [place] [address] PodAudrey key APRN.WEB SOLUTIONS ARCHITECT [address] [place] [address] follow up restless legs still an issue [facility] Comment on above: follow up restless l egs still an issue Start: 02-29-2024 End: 02-29-2024 Patient encounter procedure 02/29/2024 10:00 AM EST Office Visit Neurology [address] [place] [address] hsat Neurology Comment on above: hsat Start: 02-06-2024 End: 02-06-2024 Patient encounter procedure Vascular Surg Dept Comment on above: Dx:PAD Start: 01-18-2024 End: 01-18-2024 Patient encounter procedure 01/18/2024 8:30 AM EDT Office Visit Pulmonary Medicine [address] [address] Alondra Broderick MD [address] [place] [address] follow up Pulmonary Medicine Comment on above: follow up Start: 01-18-2024 End: 01-18-2024 ambulatory Pulmonary Medicine Comment on above: Mild intermittent as thma without complication [J45.20] Start: 01-08-2024 End: 01-08-2024 Patient encounter procedure 01/08/2024 8:00 AM EDT Office Visit [facility] [place] [address] [place] [address] PodAudrey key APRN.WEB SOLUTIONS ARCHITECT [address] [place] [address] 6 mo follow up [facility] [place] Comment on above: 6 mo follow up Start: 01-06-[address] Team [address] Clerk jennifer Disease Visit Annual PCP Team Chronic Disease Visit [facility] Start: 12-05-2023 End: 03-05-2024 CBC W Auto Differential panel - Blood [facility] Comment on above: Expected: 12/05/2023 , Expires: 03/05/2024 Start: 12-05-2023 End: 03-05-2024 Cobalamin (Vitamin B12) [Mass/volume] in Serum or Plasma [facility] Comment on above: Expected: 12/05/2023 , Expires: 03/05/2024 Start: 12-05-2023 End: 03-05-2024 Comprehensive metabolic 2000 panel - Serum or Plasma [facility] Comment on above: Expected: 12/05/2023 , Expires: 03/05/2024 Start: 12-05-2023 End: 03-05-2024 Hemoglobin A1c in Blood [facility] Work Phone: Comment on above: Expected: 12/05/2023 , Expires: 03/05/2024 Start: 12-05-2023 End: 03-05-2024 Zinc [Mass/volume] in Serum or Plasma [facility] Comment on above: Expected: 12/05/2023 , Expires: 03/05/2024 Start: 12-05-2023 End: 12-05-2023 Patient encounter procedure 12/05/2023 7:40 AM EDT Office Visit [facility] [place] [address] [place] [address] PodlogarAudrey APRN.WEB SOLUTIONS ARCHITECT [address] [place] [address] right leg pain + cant taste anything [facility] [place] Comment on above: right leg pain + can t taste anything Start: 12-04-2023 End: 12-04-2023 Patient encounter procedure 12/04/2023 9:30 AM EDT Office Visit Podiatry [address] [place] [address] Rao Hillman [address] [place] [address] 2 MONTH FOLLOW UP Podiatry Comment on above: 2 MONTH FOLLOW UP Start: 12-02-2023 Covid-19 Vaccine ( season) Covid-19 Vaccine () [facility] Start: 12-02-2023 Covid-19 Vaccine ( season) Covid-19 Vaccine () [facility] Start: 12-02-2023 Influenza vaccination [facility] Start: 11-23-2023 Hemoglobin A1c measurement HbA1C [facility] Start: 11-23-2023 PNEUMOVAX AGE 65 AND OVER WITH 5YR LOOKBACK (#1) PNEUMOVAX AGE 65 AND OVER WITH 5YR LOOKBACK (#1) [facility] Start: 11-23-2023 PROSTATE CANCER SCRE ENING DISCUSSION PROSTATE CANCER SCREENING DISCUSSION [facility] Start: 11-23-2023 Prostate specific an tigen measurement Prostate Cancer Screening Discussion [facility] Start: 11-21-2023 ANNUAL PCP TEAM COMMERCIAL LITIGATION ATTORNEY JENNIFER DISEASE VISIT ANNUAL PCP TEAM CHRONIC DISEASE VISIT [facility] Start: 11-21-2023 BP CONTROLLED (<130/80) BP CONTROLLE D (<130/80) [facility] Start: 11-14-2023 End: 11-14-2023 Patient encounter procedure Cardiology Comment on above: Abbi [I49.8] Start: 11-08-2023 Hemoglobin A1c measurement HbA1C [facility] Start: 10-19-2023 ANNUAL PCP TEAM COMMERCIAL LITIGATION ATTORNEY JENNIFER DISEASE VISIT ANNUAL PCP TEAM CHRONIC DISEASE VISIT [facility] Start: 09-24-2023 End: 09-24-2023 Patient encounter procedure 09/24/2023 9:45 AM EDT Office Visit Podiatry [address] [place] [address] Rao Hillman [address] [place] [address] 2 month follow up L foot pipo toe Podiatry Comment on above: 2 month follow up L foot pipo toe Start: 09-17-2023 End: 12-17-2023 [employer] [facility] Work Phone: Comment on above: Expected: 09/17/2023 , Expires: 12/17/2023 Start: 09-17-2023 End: 12-17-2023 [employer] [facility] Comment on above: Expected: 09/17/2023 , Expires: 12/17/2023 Start: 09-17-2023 End: 12-17-2023 IgE [Units/volume] in Serum or Plasma [facility] Comment on above: Expected: 09/17/2023 , Expires: 12/17/2023 Start: 09-17-2023 End: 09-17-2023 Patient encounter procedure 09/17/2023 11:00 AM EDT Office Visit Pulmonary Medicine [address] [address] Alondra Broderick MD [address] [place] [address] Restrictive lung disease [J98.4] Pulmonary Medicine Comment on above: Restrictive lung dis ease [J98.4] Start: 09-04-2023 End: 09-04-2023 Patient encounter procedure 09/04/2023 11:20 AM EDT Office Visit Cardiology [address] [place] [address] Bigeminy [I49.8] Cardiology Comment on above: Bigeminy [I49.8] Start: 09-03-2023 End: 12-03-2023 CBC W Ordered Manual Differential panel - Blood PATHOLOGIST INTERPRETATION WITH CBC AND DIFF Lab Routine Elevated hemoglobin (HCC) Expected: 09/03/2023, Expires: 12/03/2023 [facility] Work Phone: Comment on above: Expected: 09/03/2023 , Expires: 12/03/2023 Start: 09-03-2023 End: 09-03-2023 ambulatory PULM LAB [facility] Comment on above: Restrictive lung dis ease [J98.4] Start: 08-23-2023 End: 08-23-2023 ambulatory 08/23/2023 10:15 AM EDT Results Only [place] [address] [place] [address] [facility] Start: 08-22-2023 End: 08-22-2023 ambulatory 08/22/2023 9:00 AM EDT Procedure PULM LAB [facility] [address] [place] [address] [facility], Pul[facility] [address] [place] [address] Persistent cough [R05.3] PULM LAB [facility] Comment on above: Persistent cough [R0 5.3] Start: 08-08-2023 End: 11-07-2023 ALBUMIN/CREAT RATIO RND UR ALBUMIN/CREAT RATIO RND UR Lab Routine Type 2 diabetes mellitus with peripheral neuropathy (HCC) Expected: 08/08/2023, Expires: 11/07/2023 [facility] Work Phone: Comment on above: Expected: 08/08/2023 , Expires: 11/07/2023 Start: 08-08-2023 End: 11-07-2023 Comprehensive metabolic 2000 panel - Serum or Plasma COMP METABOLIC PANEL Lab Routine Hyperlipidemia with target LDL less than 100 Essential hypertension, benign Expected: 08/08/2023, Expires: 11/07/2023 [facility] Work Phone: Comment on above: Expected: 08/08/2023 , Expires: 11/07/2023 Start: 08-08-2023 End: 11-07-2023 Hemoglobin A1c in Blood HGB A1C Lab Routine Type 2 diabetes mellitus with peripheral neuropathy (HCC) Expected: 08/08/2023, Expires: 11/07/2023 [facility] Work Phone: Comment on above: Expected: 08/08/2023 , Expires: 11/07/2023 Start: 08-08-2023 End: 11-07-2023 Lipid 1996 panel - Serum or Plasma LIPID PANEL BASIC Lab Routine Hyperlipidemia with target LDL less than 100 Expected: 08/08/2023, Expires: 11/07/2023 [facility] Work Phone: Comment on above: Expected: 08/08/2023 , Expires: 11/07/2023 Start: 07-07-2023 Hemoglobin A1c measurement HbA1C [facility] Start: 07-07-2023 Hemoglobin A1c/Hemoglobin.total in Blood HbA1C [facility] Start: 07-06-2023 3 comp foot exam completed DIABETIC FOOT EXAM [facility] Start: 07-06-2023 ANNUAL PCP TEAM COMMERCIAL LITIGATION ATTORNEY JENNIFER DISEASE VISIT ANNUAL PCP TEAM CHRONIC DISEASE VISIT [facility] Start: 07-06-2023 COVID-19 VACCINE (#1) COVID-19 VACCI NE (#1) [facility] Comment on above: Postponed from 01/09 (Declined at this time) Start: 07-06-2023 Diabetic foot examination Diabetic F oot Exam [facility] Start: 07-06-2023 Hepatitis B screening URINE ALBUMIN:CREATININE RATIO [facility] Start: 07-06-2023 Hepatitis B surface antibody level LDL CHOLESTEROL [facility] Start: 07-06-2023 Pneumococcal Vaccine : 65+ (2 - PCV) Pneumococcal Vaccine: 65+ (2 - PCV) [facility] Comment on above: Postponed from 11/22 (Declined at this time) Start: 07-06-2023 Pneumococcal Vaccine : 65+ (2 of 2 - PCV) Pneumococcal Vaccine: 65+ (2 of 2 - PCV) [facility] Comment on above: Postponed from 11/22 (Declined at this time) Start: 07-06-2023 PNEUMOCOCCAL: 65+ (2 - PCV) PNEUMOCOCCAL: 65+ (2 - PCV) [facility] Comment on above: Postponed from 11/22 (Declined at this time) Start: 07-06-2023 SHINGRIX VACCINE (1 of 2) CARRILLO GRIX VACCINE (1 of 2) [facility] Comment on above: Postponed from 07/10 (Declined at this time) Start: 05-24-2023 ANNUAL PCP TEAM COMMERCIAL LITIGATION ATTORNEY JENNIFER DISEASE VISIT ANNUAL PCP TEAM CHRONIC DISEASE VISIT [facility] Start: 05-01-2023 ANNUAL PCP TEAM COMMERCIAL LITIGATION ATTORNEY JENNIFER DISEASE VISIT ANNUAL PCP TEAM CHRONIC DISEASE VISIT [facility] Start: 05-01-2023 BP CONTROLLED (<130/80) BP CONTROLLE D (<130/80) [facility] Start: 04-10-2023 End: 06-10-2023 Comprehensive metabolic 2000 panel - Serum or Plasma COMP METABOLIC PANEL Lab Routine Type 2 diabetes mellitus with peripheral neuropathy (HCC) Expected: 04/10/2023, Expires: 06/10/2023 [facility] Work Phone: Comment on above: Expected: 04/10/2023 , Expires: 06/10/2023 Start: 04-10-2023 End: 06-10-2023 Hemoglobin A1c in Blood HGB A1C Lab Routine Type 2 diabetes mellitus with peripheral neuropathy (HCC) Expected: 04/10/2023, Expires: 06/10/2023 [facility] Work Phone: Comment on above: Expected: 04/10/2023 , Expires: 06/10/2023 Start: 04-09-2023 BP CONTROLLED (<130/80) BP CONTROLLE D (<130/80) [facility] Start: 04-02-2023 Advance Directive Discussion Advance Directive Discussion [facility] Start: 04-02-2023 Behavioral Health Screening Behavioral Health Screening [facility] Start: 04-02-2023 Depression Assessment Depression Ass essment [facility] Start: 02-22-2023 ANNUAL PCP TEAM COMMERCIAL LITIGATION ATTORNEY JENNIFER DISEASE VISIT ANNUAL PCP TEAM CHRONIC DISEASE VISIT [facility] Start: 02-22-2023 BP CONTROLLED (<130/80) BP CONTROLLE D (<130/80) [facility] Start: 01-04-2023 Hemoglobin A1c/Hemoglobin.total in Blood HBA1C [facility] Start: 01-03-2023 ANNUAL PCP TEAM COMMERCIAL LITIGATION ATTORNEY JENNIFER DISEASE VISIT ANNUAL PCP TEAM CHRONIC DISEASE VISIT [facility] Start: 01-03-2023 BP CONTROLLED (<130/80) BP CONTROLLE D (<130/80) [facility] Start: 12-01-2022 Covid-19 Vaccine ( season) Covid-19 Vaccine ( season) [facility] Start: 12-01-2022 Influenza vaccination [facility] Start: 11-07-2022 End: 01-07-2023 25-hydroxyvitamin D3 [Mass/volume] in Serum or Plasma [facility] Work Phone: Comment on above: Expected: 11/07/2022 , Expires: 01/07/2023 Start: 10-18-2022 End: 12-18-2022 Basic metabolic 2000 panel - Serum or Plasma BASIC METABOLIC PNL Lab Routine Foot pain, right Expected: 10/18/2022, Expires: 12/18/2022 [facility] Work Phone: Comment on above: Expected: 10/18/2022 , Expires: 12/18/2022 Start: 10-18-2022 End: 12-18-2022 CBC W Auto Differential panel - Blood CBC + DIFF Lab Routine Foot pain, right Expected: 10/18/2022, Expires: 12/18/2022 [facility] Work Phone: Comment on above: Expected: 10/18/2022 , Expires: 12/18/2022 Start: 10-18-2022 End: 12-18-2022 Erythrocyte sedimentation rate SED RATE WESTERGREN Lab Routine Foot pain, right Expected: 10/18/2022, Expires: 12/18/2022 [facility] Work Phone: Comment on above: Expected: 10/18/2022 , Expires: 12/18/2022 Start: 10-18-2022 End: 12-18-2022 Urate [Mass/volume] in Serum or Plasma URIC ACID BLOOD Lab Routine Foot pain, right Expected: 10/18/2022, Expires: 12/18/2022 [facility] Work Phone: Comment on above: Expected: 10/18/2022 , Expires: 12/18/2022 Start: 09-29-2022 Influenza vaccination INFLUENZA (#1) [facility] Comment on above: Postponed from 12/01 (Declined at this time) Start: 08-15-2022 ANNUAL PCP TEAM COMMERCIAL LITIGATION ATTORNEY JENNIFER DISEASE VISIT ANNUAL PCP TEAM CHRONIC DISEASE VISIT [facility] Start: 08-10-2022 Glaucoma screening Dilated Retinal E xam [facility] Start: 08-10-2022 Hepatitis C antibody , confirmatory test DILATED RETINAL EXAM [facility] Start: 07-05-2022 Hepatitis B surface antibody level LDL CHOLESTEROL [facility] Start: 07-04-2022 3 comp foot exam completed DIABETIC FOOT EXAM [facility] Start: 07-04-2022 ANNUAL PCP TEAM COMMERCIAL LITIGATION ATTORNEY JENNIFER DISEASE VISIT ANNUAL PCP TEAM CHRONIC DISEASE VISIT [facility] Start: 07-04-2022 BP CONTROLLED (<130/80) BP CONTROLLE D (<130/80) [facility] Start: 07-04-2022 Hemoglobin A1c/Hemoglobin.total in Blood HBA1C [facility] Start: 04-14-2022 ANNUAL PCP TEAM COMMERCIAL LITIGATION ATTORNEY JENNIFER DISEASE VISIT ANNUAL PCP TEAM CHRONIC DISEASE VISIT [facility] Start: 04-10-2022 End: 06-10-2022 CREATININE BLD [facility] Work Phone: Comment on above: Expected: 04/10/2022 , Expires: 06/10/2022 Start: 04-09-2022 End: 06-09-2022 Fungus identified in Unspecified specimen by Culture FUNGAL SCREEN Microbiology Routine Pharyngitis, unspecified etiology Expected: 04/09/2022, Expires: 06/09/2022 [facility] Work Phone: Comment on above: Expected: 04/09/2022 , Expires: 06/09/2022 Start: 04-02-2022 ADVANCE DIRECTIVE DISCUSSION ADVANCE DIRECTIVE DISCUSSION [facility] Start: 04-02-2022 DEPRESSION ASSESSMENT DEPRESSION ASS ESSMENT [facility] Start: 02-22-2022 Hepatitis B screening URINE ALBUMIN:CREATININE RATIO [facility] Start: 02-22-2022 Hepatitis B surface antibody level LDL CHOLESTEROL [facility] Start: 02-21-2022 COVID-19 VACCINE (#1) COVID-19 VACCI NE (#1) [facility] Comment on above: Postponed from 07/10 (Declined at this time) Postponed from 01/09 (Declined at this time) Start: 02-21-2022 COVID-19 VACCINE (1) COVID-19 VACCIN E (1) [facility] Comment on above: Postponed from 07/10 (Declined at this time) Start: 01-04-2022 End: 03-06-2022 POTASSIUM BLD POTASSIUM BLD Lab Routine Hyperkalemia Expected: 01/04/2022, Expires: 03/06/2022 [facility] Work Phone: Comment on above: Expected: 01/04/2022 , Expires: 03/06/2022 Start: 12-01-2021 Influenza vaccination [facility] Start: 10-04-2021 Hemoglobin A1c/Hemoglobin.total in Blood HBA1C [facility] Start: 09-29-2021 Influenza vaccination INFLUENZA (#1) [facility] Comment on above: Postponed from 12/01 (Declined at this time) Start: 08-21-2021 Hemoglobin A1c/Hemoglobin.total in Blood HBA1C [facility] Start: 07-04-2021 End: 09-03-2021 Basic metabolic 2000 panel - Serum or Plasma BASIC METABOLIC PNL Lab Routine Essential hypertension, benign Expected: 07/04/2021, Expires: 09/03/2021 [facility] Work Phone: Comment on above: Expected: 07/04/2021 , Expires: 09/03/2021 Start: 07-04-2021 End: 09-03-2021 Hemoglobin A1c/Hemoglobin.total in Blood HGB A1C Lab Routine Type 2 diabetes mellitus with microalbuminuria, unspecified whether intermediate manager insulin use (HCC) Expected: 07/04/2021, Expires: 09/03/2021 [facility] Work Phone: Comment on above: Expected: 07/04/2021 , Expires: 09/03/2021 Start: 07-04-2021 End: 09-03-2021 LIPID PANEL BASIC LIPID PANEL BASIC Lab Routine Hyperlipidemia with target LDL less than 100 Expected: 07/04/2021, Expires: 09/03/2021 [facility] Work Phone: Comment on above: Expected: 07/04/2021 , Expires: 09/03/2021 Start: 06-11-2021 3 comp foot exam completed DIABETIC FOOT EXAM [facility] Start: 06-11-2021 Adult depression scr eening assessment DEPRESSION SCREENING [facility] Start: 04-02-2021 ADVANCE DIRECTIVE DISCUSSION ADVANCE DIRECTIVE DISCUSSION [facility] Start: 04-02-2021 DEPRESSION ASSESSMENT DEPRESSION ASS ESSMENT [facility] Start: 12-28-2019 Influenza vaccination LUNG CANCER SC REENING [facility] Start: 11-23-2019 Pneumococcal Vaccine : 50+ (2 of 2 - PCV) Pneumococcal Vaccine: 50+ (2 of 2 - PCV) [facility] Start: 11-23-2019 Pneumococcal Vaccine : 65+ (2 of 2 - PCV) Pneumococcal Vaccine: 65+ (2 of 2 - PCV) [facility] Start: 11-23-2019 PNEUMOCOCCAL: 65+ (2 - PCV) PNEUMOCOCCAL: 65+ (2 - PCV) [facility] Start: 08-02-2019 Hepatitis C antibody , confirmatory test DILATED RETINAL EXAM [facility] Start: 2014 Hepatitis B Vaccine (1 of 3 - Risk 3-dose series) Hepatitis B Vaccine (1 of 3 - Risk 3-dose series) [facility] Start: 2014 RSV Vaccine (1 - 1-d ose 60+ series) RSV Vaccine (1 - 1-dose 60+ series) [facility] Start: 2014 RSV Vaccine (1 - Ris k 60-74 years 1-dose series) RSV Vaccine (1 - Risk 60-74 years 1-dose series) [facility] Start: 2004 SHINGRIX VACCINE (1 of 2) CARRILLO GRIX VACCINE (1 of 2) [facility] Start: 07-11-1999 COLOGUARD (FIT-DNA) COLOGUARD (FIT-D NA) [facility] Start: 07-11-[address] COLONOGRAPHY [facility] Start: 07-11-1999 FECAL OCCULT BLOOD FECAL OCCULT BLOO D [facility] Start: 07-11-1999 Screening for malign ant neoplasm of colon [facility] Start: 07-11-1999 SIGMOIDOSCOPY SIGMOIDOSCOPY [facility] Start: 1972 Anxiety Screening Anxiety Screening [facility] Start: 1972 BP CONTROLLED (<130/80) BP CONTROLLE D (<130/80) [facility] Start: 1972 Depression Screening Depression Scre ening [facility] Start: 01-09-1956 COVID-19 VACCINE (#1) COVID-19 VACCI NE (#1) [facility] Bacteria identified in Wound by Culture BACTERIAL CULTURE AND GRAM STAIN, ABSCESS AND WOUND (AEROBIC CULTURE) Microbiology Routine 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 DIFFICILE PCR Lab Routine Diarrhea, unspecified type Ordered: 04/09/2022 [facility] Work Phone: Comment on above: Ordered: 04/09/2022 End: 04-07-2023 Ct maxillofacial w/o contrast material CT SINUS WO IVCON Radiology Routine Chronic sinusitis, unspecified location 1 Occurrences starting 03/08/2022 until 04/07/2023 [facility] Work Phone: Comment on above: 1 Occurrences starti ng 03/08/2022 until 04/07/2023 End: 05-10-2023 CTA HEAD WO/W IVCON CTA HEAD WO/W IVCON Radiology Routine Thunderclap headache 1 Occurrences starting 04/10/2022 until 05/10/2023 [facility] Work Phone: Comment on above: 1 Occurrences starti ng 04/10/2022 until 05/10/2023 End: 05-24-2023 ECG COMPLETE ECG COMPLETE ECG Routine Irregular heart beat 1 Occurrences starting 05/24/2022 until 05/24/2023 [facility] Work Phone: Comment on above: 1 Occurrences starti ng 05/24/2022 until 05/24/2023 ECG COMPLETE ECG COMPLETE ECG Routine Irregular heartbeat Ordered: 08/10/2023 [facility] Work Phone: Comment on above: Ordered: 08/10/2023 End: 08-09-2024 Echocardiography ECHO Cardiology Routine Bigeminy PAC (premature atrial contraction) Bradycardia Abnormal EKG 1 Occurrences starting 08/10/2023 until 08/09/2024 [facility] Comment on above: 1 Occurrences starti ng 08/10/2023 until 08/09/2024 ENTERIC BACTERIAL PA GIANNI BY PCR ENTERIC BACTERIAL PANEL BY PCR Lab STAT Diarrhea, unspecified type Ordered: 04/09/2022 [facility] Work Phone: Comment on above: Ordered: 04/09/2022 End: 02-12-2025 HOME SLEEP APNEA TEST (HSAT) HOME SLEEP APNEA TEST (HSAT) Procedures Routine Daytime somnolence Snoring 1 Occurrences starting 02/13/2024 until 02/12/2025 [facility] Work Phone: Comment on above: 1 Occurrences starti ng 02/13/2024 until 02/12/2025 End: 10-16-2024 LUNG DIFFUSION CAPACITY (DLCO) LUNG DIFFUSION CAPACITY (DLCO) PFT Routine Mild intermittent asthma without complication 1 Occurrences starting 09/17/2023 until 10/16/2024 [facility] Comment on above: 1 Occurrences starti ng 09/17/2023 until 10/16/2024 LUNG VOLUMES LUNG VOLUMES PFT Routine Abnormal pulmonary function test 05/10/2022 8:57 AM EST [facility] Work Phone: End: 09-26-2024 LUNG VOLUMES LUNG VOLUMES PFT Routine Restrictive lung disease 1 Occurrences starting 08/28/2023 until 09/26/2024 [facility] Work Phone: Comment on above: 1 Occurrences starti ng 08/28/2023 until 09/26/2024 End: 10-16-2024 LUNG VOLUMES LUNG VOLUMES PFT Routine Mild intermittent asthma without complication 1 Occurrences starting 09/17/2023 until 10/16/2024 [facility] Comment on above: 1 Occurrences starti ng 09/17/2023 until 10/16/2024 OUTSIDE VENDOR CARDI AC OUTPATIENT EXTENDED RHYTHM RECORDING (WITHOUT TELEMETRY) OUTSIDE VENDOR CARDIAC OUTPATIENT EXTENDED RHYTHM RECORDING (WITHOUT TELEMETRY) Holter Routine Bigeminy PAC (premature atrial contraction) Bradycardia Ordered: 08/10/2023 [facility] Comment on above: Ordered: 08/10/2023 Ova and parasites identified in Unspecified specimen by Light microscopy OVA + PARA MICROSCOPIC Microbiology STAT Diarrhea, unspecified type Ordered: 04/09/2022 [facility] Work Phone: Comment on above: Ordered: 04/09/2022 End: 05-31-2023 SPIROMETRY - BASELINE AND POST DILATOR SPIROMETRY - BASELINE AND POST DILATOR PFT Routine Chronic cough 1 Occurrences starting 05/01/2022 until 05/31/2023 [facility] Work Phone: Comment on above: 1 Occurrences starti ng 05/01/2022 until 05/31/2023 SPIROMETRY - BASELIN E AND POST DILATOR SPIROMETRY - BASELINE AND POST DILATOR PFT Routine Chronic cough 05/05/2022 9:28 AM EST [facility] Work Phone: End: 09-15-2024 SPIROMETRY - BASELINE AND POST DILATOR SPIROMETRY - BASELINE AND POST DILATOR PFT Routine Persistent cough 1 Occurrences starting 08/17/2023 until 09/15/2024 [facility] Work Phone: Comment on above: 1 Occurrences starti ng 08/17/2023 until 09/15/2024 End: 11-17-2023 US DVT LOWER RIGHT US DVT LOWER RIGHT Radiology STAT Foot swelling 1 Occurrences starting 10/18/2022 until 11/17/2023 [facility] Work Phone: Comment on above: 1 Occurrences starti ng 10/18/2022 until 11/17/2023 End: 08-08-2025 US Kidney - bilateral and Urinary bladder US KIDNEY/BLADDER Radiology Routine Stage 3a chronic kidney disease (HCC) 1 Occurrences starting 07/09/2024 until 08/08/2025 [facility] Comment on above: 1 Occurrences starti ng 07/09/2024 until 08/08/2025 US Kidney - bilatera l and Urinary bladder US KIDNEY/BLADDER Radiology Routine Stage 3a chronic kidney disease (HCC) 07/14/2024 10:35 AM T [facility] Work Phone: US LEG VEIN DVT UNL VAS LAB US LEG VEIN DVT UNL VAS LAB Vascular Lab STAT Foot swelling 10/18/2022 9:04 AM [facility] Work Phone: End: 01-09-2025 US Lower extremity artery US LEG ARTERIAL PERIPH UNL VAS LAB Vascular Lab Routine Peripheral arterial disease (HCC) 1 Occurrences starting 01/10/2024 until 01/09/2025 [facility] Work Phone: Comment on above: 1 Occurrences starti ng 01/10/2024 until 01/09/2025 End: 01-09-2025 US Lower extremity artery - bilateral PVR ANK/GRULLON/TOE LUIS VAS LAB Vascular Lab Routine Peripheral arterial disease (HCC) 1 Occurrences starting 01/10/2024 until 01/09/2025 [facility] Comment on above: 1 Occurrences starti ng 01/10/2024 until 01/09/2025 End: 04-09-2025 XR Ankle - right AP and Lateral and oblique XR ANKLE GENERAL 3V AP/LAT/OBL RIGHT Radiology Routine Chronic pain of right ankle 1 Occurrences starting 03/10/2024 until 04/09/2025 [facility] Work Phone: Comment on above: 1 Occurrences starti ng 03/10/2024 until 04/09/2025 XR Ankle - right AP and Lateral and oblique XR ANKLE GENERAL 3V AP/LAT/OBL RIGHT Radiology Routine Chronic pain of right ankle 03/10/2024 9:49 AM EST [facility] End: 09-08-2024 XR Chest PA and Lateral XR CHEST 2V FRONTAL/LAT Radiology Routine Persistent cough for 3 weeks or longer 1 Occurrences starting 08/10/2023 until 09/08/2024 [facility] Comment on above: 1 Occurrences starti ng 08/10/2023 until 09/08/2024 XR Chest PA and Lateral XR CHEST 2V FRONTAL/LAT Radiology Routine Persistent cough for 3 weeks or longer 08/10/2023 11:08 AM EDT [facility] XR Foot - left AP an d Lateral and oblique XR FOOT GENERAL 3V AP/LAT/OBL LEFT Radiology Routine Diabetic ulcer of toe associated with diabetes mellitus due to underlying condition, with fat layer exposed, unspecified laterality (HCC) 09/11/2024 10:33 AM EDT [facility] Work Phone: End: 12-07-2023 XR FOOT GENERAL 3V AP/LAT/OBL BILATERAL XR FOOT GENERAL 3V AP/LAT/OBL BILATERAL Radiology Routine Charcot ankle, right 1 Occurrences starting 11/07/2022 until 12/07/2023 [facility] Work Phone: Comment on above: 1 Occurrences starti ng 11/07/2022 until 12/07/2023 XR FOOT GENERAL 3V AP/LAT/OBL BILATERAL XR FOOT GENERAL 3V AP/LAT/OBL BILATERAL Radiology Routine Charcot ankle, right 11/07/2022 12:46 PM EDT [facility] Work Phone: [facility] Immunizations Immunization Date Immunization Notes Care Provider Fa cility 07-08-2024 pneumococcal conjuga te (PCV20) vaccine, 20 valent (PREVNAR 20) Tobi Sorto MD Work Phone: [facility] 07-08-2024 pneumococcal Conjuga te, unspecified formulation Tobi Sorto MD Work Phone: [facility] Work Phone: 01-02-2019 influenza, seasonal, injectable Mary Carmen Zambdoimnicky [employer] BLOCK[employer] ARCHITECT Work Phone: [facility] 01-02-2019 influenza virus vaccine, unspecified formulation Audrey Packer HAT LINING BLOCKER[employer] SOLUT[employer] ARCHITECT Work Phone: [facility] 11-22-2018 pneumococcal polysaccharide vaccine, 23 valent Mary Carmen Zamborsky HAT LINING BLOCKER.WE[employer] SOLUT[employer] ARCHITECT Work Phone: [facility] 11-22-2018 tetanus toxoid, redu neeta diphtheria toxoid, and acellular pertussis vaccine, adsorbed Mary Carmen Zamborsky HAT LINING BLOCKER.WEB SOLUTIONS ARCHITECT Work Phone: [facility] 01-31-2017 influenza, seasonal, injectable Mary Carmen Zamborsky HAT LINING BLOCKER[employer]WEB SOLUT[employer] ARCHITECT Work Phone: [facility] 12-09-2015 influenza, injectabl e, quadrivalent, preservative free Mary Carmen Zamborsky HAT LINING BLOCKER[employer] ARCHITECT Work Phone: [facility] Payers Date Payer Category Payer Private Health Insurance [facility] H[facility] [id number] 2023 Unknown [id number] 2023 Medicare [id number] 2018 Medicare [employer] MEDICARE [employer] MEDICARE PPO [id number] 2018-Present [phone] [address] [address] [place] [address] PPO [id number] 2018 Medicare [id number] Social History Date Type Detail Facility Start: 05-08-2017 End: 01-08-2024 Tobacco smoking status NHIS Smokes tobacco daily [facility] Start: [birth year]-02-1969 End: 12-03-2015 History of tobacco use Cigarette Smoker [facility] Start: 05-08-2017 End: 09-11-2024 Cigarettes smoked current (pack per day) - Reported 1 [facility] Start: 05-08-2017 End: 06-09-2024 Tobacco use and exposure Smokeless tobacco non-user [facility] Start: 04-08-2021 End: 09-18-2024 Alcohol intake Current non-drinker of alcohol (finding) [facility] Start: 02-21-2021 History SDOH Physica l Activity DPW 5 [facility] Start: 02-21-2021 History SDOH Physica l Activity MPS 98 [facility] Start: 02-21-2021 History SDOH Housing Unable to Pay 2 [facility] Start: 02-21-2021 History SDOH Housing Homeless Last Year 1 [facility] Start: 05-08-2017 End: 01-03-2022 Tobacco Comment Started to smoke again, about 1/2 pack now 05/2017 [facility] Start: 1955 Sex Assigned At Not on file [facility] Start: 06-15-2020 End: 02-22-2022 Exposure to SARS-CoV-2 (event) Not sure [facility] Start: 02-16-2022 Tobacco Comment Started to smo ke again, 1 pack a week [facility] Start: 02-21-2021 End: 09-11-2024 Social connection and isolation panel [facility] In a typical week, h ow many times do you talk on the telephone with family, friends, or neighbors? Patient refused [facility] Are you now , , , , never or living with a partner? Refused [facility] (I/We) worried suzette er (my/our) food would run out before (I/we) got money to buy more. DK or Refused [facility] In the past 12 month s, was there a time when you were not able to pay the mortgage or rent on time? No [facility] At any time in the past 12 months, were you homeless or living in half-way [including now]? Yes [facility] Start: 05-10-2023 Tobacco Comment Started to smo ke again, 1/2 pack a week [facility] Start: 06-09-2024 [facility] NEGATED: Highlighted rowStart: RAIF History of tobacco use Passive smoker [facility] Medical Equipment Procedure Code Equipment Code Equipment Origin al Text Equipment Identifier Dates Graft Hemashield Poarch 8mm Straight 2 Velour Collagen Polyester 30cm - [id number] Start: 12-08-2015 Comment on above: Description: right solis emoral artery Zbc-Bd-T-Kind Implant - [id number] Start: 01-20-2019 Comment on above: Description: RIGHT Sharp REAT TOE [id number], [id number], [id number] Start: 05-29-2018 Comment on above: Test once daily DX: E11.42, E11.29 1 Each once daily. Test once daily DX: E11.42. E11.29 Goals Date Patient Goal Desired Activity /State Personal health goal Functional Status Date Assessment Result Facility 05-10-2017 Are you deaf, or do you have serious difficulty hearing No 05/10/2017 1:00 PM Neena Rahman, SHAMAR No [facility] 05-10-2017 Are you blind, or do you have serious difficulty seeing, even when wearing glasses No 05/10/2017 1:00 PM Neena Rahman, SHAMAR [facility] 05-10-2017 Do you have serious difficulty walking or climbing stairs No 05/10/2017 1:00 PM Neena Rahman, SHAMAR No [facility] 05-10-2017 Do you have difficul ty dressing or bathing No 05/10/2017 1:00 PM Neena Rahman, SHAMAR No [facility] 05-10-2017 Because of a physica l, mental, or emotional condition, do you have difficulty doing errands alone such as visiting a physician's office or shopping No 05/10/2017 1:00 PM Neena Rahman RN No [facility] Mental Status Date Assessment Result Facility 05-10-2017 Because of a physica l, mental, or emotional condition, do you have serious difficulty concentrating, remembering, or making decisions No 05/10/2017 1:00 PM Neena Rahman RN No [facility] Clinical Notes 05-09-2017 to 10-14-2024 Rao Hillman - 10/14/2024 1:03 PM Bekah Pabon LPN - 10/14/2024 9:40 AM Bekah Pabon LPN - 10/14/2024 8:28 AM Liliane Coronel RT(Laurence) - 10/14/2024 9:30 AM EDTPatient Instructions Note Date & Type Note Facility 10-14-2024 Note HNO ID: [id number] Author: RAO HILLMAN, ? Service: ? Author Type: Physician Type: Progress Notes Filed: 10/14/2024 13:04 Note Text: Subjective Russ Estes is a 69-year-old male with a history of diabetes and vascular disease, presenting for evaluation of left great toe cellulitis. Left Great Toe Cellulitis: - Onset last week after returning from vacation. - Recent vacation involved walking barefoot on sand in [place], [place], and [place], [place]. - Noticed swelling and redness in the left great toe upon returning home. - Denies known trauma or blistering from hot sand. - History of a sore on the left great toe, appeared healed by September 18, with only a little dryness remaining - [id number] noted a hole in the bottom of [...] joint; slight drainage (more content not included)... [facility] 10-14-2024 History of Present illness Narrative Subjective Russ Estes is a 69-year-old male with a history of diabetes and vascular disease, presenting for evaluation of left great toe cellulitis. Left Great Toe Cellulitis: - Onset last week after returning from vacation. - Recent vacation involved walking barefoot on sand in [place], [place], and [place], [place]. - Noticed swelling and redness in the left great toe upon returning home. - Denies known trauma or blistering from hot sand. - History of a sore on the left great toe, appeared healed by September 18, with only a little dryness remaining - [id number] noted a hole in the bottom of [...] condition, with fat layer exposed, unspecified laterality ([facility]) (E08.621) - Full thickness ulceration [...] days. - Follow-up with vascular surgery at [facility] recommended for optimal management. 2. PAD (peripheral [...] - Recommended follow-up with vascular surgery at [facility] for comprehensive management. Recording using [employer] software for draft documentation of the visit was discussed with the patient/authorized patient financial representative; all questions welcomed and answered. Patient/authorized patient financial representative agreed to proceed Rao Hillman DPM [...] Bekah Flynn LPN documented in this encounter [facility] 10-14-2024 Note HNO ID: [id number] Author: BEKAH FLYNN LPN Service: ? Author [...] ED. Patient verbalized understanding. Bekah Flynn LPN [facility] 10-14-2024 History of Present illness [...] PATIENT PRESENTS WITH AN IMPLANTABLE OR ATTACHED LOAD BUILDER: No RADIOLOGY DEPARTMENT: General X-ray: Exam(s) Completed: Lower Extremity X-Ray(s): Toes, Left, GREAT TOE PERIPHERAL IV DATA: Not applicable SIGNED BY: RT Val(Laurence) October 14, 2024 4:25 PM documented in this encounter [facility] 10-14-2024 Note HNO ID: [id number] Author: LILIANE LEWIS RT(R) Service: ? Author [...] PATIENT PRESENTS WITH AN IMPLANTABLE OR ATTACHED LOAD BUILDER: No RADIOLOGY DEPARTMENT: General X-ray: Exam(s) Completed: Lower Extremity X-Ray(s): Toes, Left, GREAT TOE PERIPHERAL IV DATA: Not applicable SIGNED BY: RT Val(R) October 14, 2024 4:25 PM [facility] 10-14-2024 Instructions Rao Hillman - [...] a vascular evaluation. The preferred location is [facility] (with Dr. Jean), but you may also use [facility] or [facility] if [facility] is not feasible, but this provider does not do inpatient care at [place] or [place]. - If you cannot get to the [...] complete toe amputation documented in this encounter [facility] 10-14-2024 Note HNO ID: [id number] Author: BEKAH FLYNN LPN Service: ? Author [...] with no dressing applied. Bekah Flynn LPN [facility] 10-13-2024 Telephone encounter Note Last [...] Rush LPN October 13, 2024 3:26 PM [facility] 10-13-2024 Miscellaneous Notes Last OV: 09/04/24. Pt [...] 2024 3:26 PM documented in this encounter [facility] 09-23-2024 Telephone encounter Note Patient has been [...] Please advise. Thank you. Alondra Gillette MA. [facility] 09-23-2024 Miscellaneous Notes Patient has been identified [...] 2024 12:22 PM documented in this encounter [facility] 09-22-2024 Telephone encounter Note Prescription Refill Information [...] Jael Samuels September 22, 2024 12:22 PM [facility] 09-22-2024 Note HNO ID: [id number] Author: ?, ?, ? Service: ? Author Type: ? Type: Progress Notes Filed: 09/22/2024 10:32 Note Text: Sleep Study Check-In Documentation Date: September 22, 2024 Name: Joshua Estes Comments: HST was returned in working order without all sleep questionnaires Patient was not reached. A voicemail was left with patient to call back to complete questionnaires. Wayne Burnett [facility] 09-22-2024 History of Present illness Narrative Sleep Study Check-In Documentation Date: September 22, 2024 Name: Joshua Estes Comments: HST was returned in working order without all sleep questionnaires Patient was not reached. A voicemail was left with patient to call back to complete questionnaires. Wayne Burnett Nomad # [id number] , date shipped out 09-17-24 FED EX ONLY Tracking mailout: [id number] Tracking return: [phone] [id number] August 28, 2024 Standing PSG Orders signed in the last 90 days None Future PSG Orders signed in the last 90 days Ordered Auth. provider HOME SLEEP APNEA TEST (HSAT) [[id number]] 08/19/24 Tobi Sorto MD Assoc. diagnoses: Snoring [...] and agree to the plan. Rell Tidwell APRN.WEB SOLUTIONS ARCHITECT 3:21 PM, 08/28/2024 CURRENTLY UNAUTHORIZED- CSRT (PERM) VERIFIED 08/26-[facility] August 26, 2024 An order has been received for Home Sleep Apnea Test (HSAT) from Tobi Gibson MD, a B. [facility] Staff. Visit prep complete. Comments :No The sleep study is scheduled for 09/17/24. Insurance: Payor: [employer]udge MEDICARE / Plan: [employer] HMO / Product Type: HMO / Payer/Plan Subscr Sex Relation Sub. Ins. ID Effective Group Num 1. DEVOTED MEDIC* JOSHUA ESTES 1955 Male Self [id number] [birth year] [address] Yousuf Milner documented in this encounter [facility] 09-18-2024 Note HNO ID: [id number] Author: RAO HILLMAN, ? Service: ? Author [...] is now essentiall (more content not included)... [facility] 09-18-2024 History of Present illness [...] dry skin reduced with dremmel Recording using [employer] software for draft documentation of the visit was discussed with the patient/authorized patient financial representative; all questions welcomed and answered. Patient/authorized patient financial representative agreed to proceed Rao Hillman DPM [...] the post op shoe with offloading insert. [facility] 09/11/24 documented in this encounter [facility] 09-18-2024 Instructions Rao Hillman - 09/18/2024 8:20 [...] feet are healing. documented in this encounter [facility] 09-18-2024 Note HNO ID: [id number] Author: FERN AGUILAR, RN Service: ? Author [...] op shoe with offloading insert. SRUTHI 09/11/24 [facility] 09-18-2024 Note HNO ID: [id number] Author: RAO HILLMAN, ? Service: ? Author [...] RTC in 1 week Rao Hillman DPM [facility] 09-18-2024 History of Present illness [...] a few weeks. documented in this encounter [facility] 09-17-2024 Note HNO ID: [id number] Author: ?, ?, ? Service: ? Author Type: ? Type: Progress Notes Filed: 09/22/2024 10:32 Note Text: Nomad # [id number] , date shipped out 09-17-24 FED EX ONLY Tracking mailout: [id number] Tracking return: [phone] [id number] [facility] 09-17-2024 Telephone encounter Note Patient [...] to discuss alternative medication. Sheryl Hendrix LPN [facility] 09-17-2024 Miscellaneous Notes Patient called. Verified name [...] Bekah Flynn LPN documented in this encounter [facility] 09-17-2024 Telephone encounter Note Called patient to notify him that silver gel was not available at pharmacy and to use antibiotic ointment per provider. No response. Left VM. Bekah Flynn LPN [facility] Work Phone: 09-15-2024 Telephone encounter Note Prescription [...] Bob LPN September 15, 2024 6:36 PM [facility] 09-15-2024 Miscellaneous Notes Prescription Refill Information The [...] 2024 6:36 PM documented in this encounter [facility] 09-15-2024 Telephone encounter Note Prescription Refill Information [...] Bob LPN September 15, 2024 6:34 PM [facility] 09-15-2024 Miscellaneous Notes Prescription Refill Information The [...] 2024 6:34 PM documented in this encounter [facility] 09-11-2024 History of Present illness Narrative Radiology [...] PATIENT PRESENTS WITH AN IMPLANTABLE OR ATTACHED LOAD BUILDER: No RADIOLOGY DEPARTMENT: General X-ray: Exam(s) Completed: Lower Extremity X-Ray(s): Foot, Left and Wt. Bearing PERIPHERAL IV DATA: Not applicable SIGNED BY: RT Gabby(R) September 11, 2024 10:25 AM documented in this encounter [facility] 09-11-2024 Note HNO ID: [id number] Author: AFIA PATIÑO RT(Laurence) Service: Radiology Author [...] PATIENT PRESENTS WITH AN IMPLANTABLE OR ATTACHED LOAD BUILDER: No RADIOLOGY DEPARTMENT: General X-ray: Exam(s) Completed: Lower Extremity X-Ray(s): Foot, Left and Wt. Bearing PERIPHERAL IV DATA: Not applicable SIGNED BY: RT Gabby(R) September 11, 2024 10:25 AM [facility] 09-11-2024 Note HNO ID: [id number] Author: BEKAH FLYNN LPN Service: ? Author [...] utilize the above equipment. Bekah Flynn LPN [facility] 09-11-2024 Instructions Rao Hillman - 09/11/2024 8:56 AM EDT - Silver Gel has been prescribed at [facility] - apply to the left big toe ulcer once daily. - [place] 40 Urea Cream has been prescribed at [facility] - apply to callus areas to soften [...] (or decreased sensation in your feet) a chef de froid should always cut your toenails. Be Careful [...] Go to your health care provider or chef de froid to treat these conditions. documented in this encounter [facility] 09-11-2024 Note HNO ID: [id number] Author: BEKAH FLYNN LPN Service: ? Author [...] has been present for a few weeks. [facility] 09-04-2024 History of Present illness Narrative 09/04/2024 Patient presents with: Follow Up: Facial Cellulitis, patient states symptoms improving with the antibiotic Recording using LinkoT[employer] software for draft documentation of the visit was discussed with the patient/authorized patient financial representative; all questions welcomed and answered. Patient/authorized patient financial representative agreed to proceed SUBJECTIVE: This is [...] Discussed benefits of smoking cessation. Audrey Podlogar, HAT LINING BLOCKER.WEB SOLUTIONS ARCHITECT Prescription instructions reviewed with patient as applicable. [...] which included preparing to see the patient, [id number] patient care, completing clinical documentation, obtaining and/or reviewing separately obtained history, performing a medically appropriate examination, counseling and educating the patient/family/caregiver, and ordering medications, tests, or procedures. documented in this encounter [facility] 09-04-2024 Note HNO ID: [id number] Author: AUDREY PACKER APRN.EDENILSON Service: ? Author Type: Nurse Practitioner Type: Progress Notes Filed: 09/04/2024 08:15 Note Text: 09/04/2024 Patient presents with: Follow Up: Facial Cellulitis, patient states symptoms improving with the antibiotic Recording using LinkoTec software for draft documentation of the visit was discussed with the patient/authorized patient financial representative; all questions welcomed and answered. Patient/authorized patient financial representative agreed to proceed SUBJECTIVE: This is [...] has resolved Depres (more content not included)... [facility] 09-01-2024 Note HNO ID: [id number] Author: AUDREY PACKER APRN.WEB SOLUTIONS ARCHITECT Service: ? Author Type: Nurse Practitioner Type: Progress Notes Filed: 09/01/2024 13:01 Note Text: 09/01/2024 Patient presents with: Derm Problem: Area to bottom of chin, lip is swollen. X2 days. Recording using [employer] software for draft documentation of the visit was discussed with the patient/authorized patient financial representative; all questions welcomed and answered. Patient/authorized patient financial representative agreed to proceed SUBJECTIVE: This is [...] Facial cellulitis (L03.211 (more content not included)... [facility] 09-01-2024 History of Present illness Narrative 09/01/2024 Patient presents with: Derm Problem: Area to bottom of chin, lip is swollen. X2 days. Recording using [employer] software for draft documentation of the visit was discussed with the patient/authorized patient financial representative; all questions welcomed and answered. Patient/authorized patient financial representative agreed to proceed SUBJECTIVE: This is [...] to evaluate response to treatment. Audrey Packer APRN.WEB SOLUTIONS ARCHITECT Prescription instructions reviewed with patient as applicable. [...] 4 - Moderate documented in this encounter [facility] 08-28-2024 Note HNO ID: [id number] Author: RELL TIDWELL APRN.EDENILSON Service: ? Author Type: Nurse Practitioner Type: Progress Notes Filed: 09/22/2024 10:32 Note Text: August 28, 2024 Standing PSG Orders signed in the last 90 days None Future PSG Orders signed in the last 90 days Ordered Auth. provider HOME SLEEP APNEA TEST (HSAT) [[id number]] 08/19/24 Tobi Sorto MD Assoc. diagnoses: Snoring [...] plan. Rell Tidwell APRN.EDENILSON 3:21 PM, 08/28/2024 [facility] 08-27-2024 Telephone encounter Note PDMP website checked and validated. All prescriptions have been APPROPRIATELY filled. No suspicious activity was identified. 08/27/2024 by Audrey Packer APRN.WEB SOLUTIONS ARCHITECT [facility] 08-27-2024 Miscellaneous Notes PDMP website checked and [...] 2024 4:56 PM documented in this encounter [facility] 08-27-2024 Telephone encounter Note Prescription Refill Information [...] Floyd MA August 27, 2024 4:56 PM [facility] 08-26-2024 Note HNO ID: [id number] Author: ?, ?, ? Service: ? Author Type: ? Type: Progress Notes Filed: 09/22/2024 10:32 Note Text: CURRENTLY UNAUTHORIZED- CSRT (PERM) VERIFIED 08/26-[facility] 08-26-2024 Note HNO ID: [id number] Author: ?, ?, ? Service: ? Author Type: ? Type: Progress Notes Filed: 09/22/2024 10:32 Note Text: August 26, 2024 An order has been received for Home Sleep Apnea Test (HSAT) from Tobi Gibson MD, a B. [facility] Staff. Visit prep complete. Comments :No The sleep study is scheduled for 09/17/24. Insurance: Payor: [employer] MEDICARE / Plan: [employer] HMO / Product Type: HMO / Payer/Plan Subscr Sex Relation Sub. Ins. ID Effective Group Num 1. DEVOTED MEDIC* JOSHUA ESTES 1955 Male Self [id number] [birth year] [address] [facility] 08-19-2024 Note HNO ID: [id number] Author: TOBI SORTO MD Service: ? Author Type: Physician Type: Progress Notes Filed: 08/19/2024 15:17 Note Text: Chief Complaint Patient presents with: Sleep Problem: Discuss failed sleep medications Recording using [employer] software for draft documentation of the visit was discussed with the patient/authorized patient financial representative; all questions welcomed and answered. 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 [facility] 08-18-2024 Telephone encounter Note Pt called and is notified of providers results and instructions. Pt voices understanding. Pt scheduled tomorrow with Dr Sorto at 1240 pm. Fern Stephen RN [facility] 08-18-2024 Miscellaneous Notes Pt called and is [...] Meaghan Fischer RN documented in this encounter [facility] 08-18-2024 Telephone encounter Note Recommend OV to discuss further since he has failed multiple rx. [facility] 08-18-2024 Telephone encounter Note *Last rx written for losartan 100mg on 08/14/24 #90 with 1 refill. Sent to [facility]. Pt is not due for refill. *Last rx written for hydrochlorothiazide 50mg on 08/14/24 #90 with 1 refill. Sent to [facility]. Pt is not due for refill. Anil Bob LPN [facility] 08-18-2024 Miscellaneous Notes *Last rx written for losartan 100mg on 08/14/24 #90 with 1 refill. Sent to [facility]. Pt is not due for refill. *Last rx written for hydrochlorothiazide 50mg on 08/14/24 #90 with 1 refill. Sent to [facility]. Pt is not due for refill. Anil [...] you. Audrey Bacon. documented in this encounter [facility] 08-18-2024 Telephone encounter Note Patient calls with [...] no relief as well. Meaghan Fischer RN [facility] 08-18-2024 Telephone encounter Note Patient has been [...] 01/07/2025 Please advise. Thank you. Audrey Bacon. [facility] 08-14-2024 Telephone encounter Note Patient has been [...] care: 01/07/2025 Please advise. Thank you. Audrey Baocn. [facility] 08-14-2024 Miscellaneous Notes Patient has been identified [...] you. Audrey Bacon. documented in this encounter [facility] 08-04-2024 Telephone encounter Note Patient's request for medication is as follows: Requested Prescriptions Pending Prescriptions Disp Refills montelukast (SINGULAIR) 10 mg tablet [Pharmacy Med Name: MONTELUKAST SOD 10 MG TABLET] 90 tablet 0 Sig: TAKE 1 TABLET BY MOUTH EVERYDAY AT BEDTIME SRUTHI: 09/17/23 Please approve the above prescription(s) to electronically send to pharmacy. Karen Vera LPN [facility] 08-04-2024 Miscellaneous Notes Patient's request for medication is as follows: Requested Prescriptions Pending Prescriptions Disp Refills montelukast (SINGULAIR) 10 mg tablet [Pharmacy Med Name: MONTELUKAST SOD 10 MG TABLET] 90 tablet 0 Sig: TAKE 1 TABLET BY MOUTH EVERYDAY AT BEDTIME SRUTHI: 09/17/23 Please approve the above prescription(s) to electronically send to pharmacy. Karen Vera LPN documented in this encounter [facility] 07-21-2024 Telephone encounter Note Pt called and is notified of providers results and instructions. Pt voices understanding. Fern Stephen RN [facility] 07-21-2024 Miscellaneous Notes Pt called and is [...] Amanda Hammer RN documented in this encounter [facility] 07-21-2024 Telephone encounter Note Stop trazodone. Start 10 mg amitriptyline qhs instead to help with sleep. This is an alternative antidepressant. Call in 1-2 weeks with update on sleep or sooner with side effects. [facility] 07-21-2024 Telephone encounter Note Patient calls and states that he was just recently started on Trazodone. Patient reports that Trazodone has not helped him with sleep. Patient has been taking 100 mg x 1 week and has not noticed it making any difference in helping him sleep. Please review and advise, Amanda Hammer RN [facility] 07-16-2024 History of Present illness Narrative Radiology [...] PATIENT PRESENTS WITH AN IMPLANTABLE OR ATTACHED LOAD BUILDER: No RADIOLOGY DEPARTMENT: General X-ray: Exam(s) Completed: Chest X-Ray PERIPHERAL IV DATA: Not applicable SIGNED BY: Titi Campbell July 16, 2024 5:22 PM documented in this encounter [facility] 07-16-2024 Note HNO ID: [id number] Author: SUSAN QUARLES Tech Service: ? Author [...] PATIENT PRESENTS WITH AN IMPLANTABLE OR ATTACHED LOAD BUILDER: No RADIOLOGY DEPARTMENT: General X-ray: Exam(s) Completed: Chest X-Ray PERIPHERAL IV DATA: Not applicable SIGNED BY: Titi Campbell July 16, 2024 5:22 PM [facility] 07-16-2024 Note HNO ID: [id number] Author: AUDREY PACKER APRN.WEB SOLUTIONS ARCHITECT Service: ? Author Type: Nurse Practitioner Type: [...] 07/16/2025 Colorectal Cancer (more content not included)... [facility] 07-16-2024 History of Present illness [...] ER with red flag symptoms Audrey Packer APRN.WEB SOLUTIONS ARCHITECT Prescription instructions reviewed with patient as applicable. [...] which included preparing to see the patient, [id number] patient care, completing clinical documentation, obtaining and/or reviewing separately obtained history, performing a medically appropriate examination, counseling and educating the patient/family/caregiver, and ordering medications, tests, or procedures. documented in this encounter [facility] 07-16-2024 Telephone encounter Note Triage protocol advised: [...] or SOB Protocols used: Leg Swelling and Whxeo-[id number] [facility] 07-16-2024 Miscellaneous Notes Triage protocol advised: See [...] or SOB Protocols used: Leg Swelling and [id number]-[id number] documented in this encounter [facility] 07-16-2024 Telephone encounter Note Updated patient with results and he voiced understanding. Dolores Jama LPN [facility] 07-16-2024 Miscellaneous Notes Updated patient with results and he voiced understanding. Dolores Jama LPN ----- Message from Tobi Sorto MD sent at 07/16/2024 7:04 AM EDT ----- Normal kidney ultrasound. Recommend low sodium diet <2,000 mg per day, avoidance of NSAIDs, and increased water intake. documented in this encounter [facility] 07-16-2024 Telephone encounter Note ----- Message from Tobi Sorto MD sent at 07/16/2024 7:04 AM EDT ----- Normal kidney ultrasound. Recommend low sodium diet <2,000 mg per day, avoidance of NSAIDs, and increased water intake. [facility] 07-14-2024 Telephone encounter Note Patient returned call and went over notes below from Dr Sorto with understanding. [facility] 07-14-2024 Miscellaneous Notes Patient returned call and [...] kidney/bladder US results. documented in this encounter [facility] 07-14-2024 Telephone encounter Note Was speaking with patient and line went . Attempted calling patient back but got his VM. Message left for him to return call. Dolroes Jama LPN [facility] 07-14-2024 Telephone encounter Note Increase trazodone dose to 2 tablets (100 mg) before bed and let me know in about 1 week if it is not helping. [facility] 07-14-2024 Telephone encounter Note Pt notified of results and provider message. Pt voiced understanding. Pt reports that trazodone 50 mg is not helping with sleep problem at all. Pt is asking what else he could try. Please review and advise. Karen Rush LPN [facility] 07-14-2024 Telephone encounter Note Telephone call placed to patient. Message left to call office back for update. Marleny Raygoza LPN [facility] 07-14-2024 History of Present illness Narrative Radiology [...] PATIENT PRESENTS WITH AN IMPLANTABLE OR ATTACHED LOAD BUILDER: No RADIOLOGY DEPARTMENT: Ultrasound PERIPHERAL IV DATA: Not applicable SIGNED BY: Khadijah Dalton RDMS July 14, 2024 11:27 AM documented in this encounter [facility] 07-14-2024 Note HNO ID: [id number] Author: KHADIJAH DALTON RDMS Service: ? Author Type: Clerk Operator Type: Progress Notes Filed: 07/14/2024 11:27 Note [...] PATIENT PRESENTS WITH AN IMPLANTABLE OR ATTACHED LOAD BUILDER: No RADIOLOGY DEPARTMENT: Ultrasound PERIPHERAL IV DATA: Not applicable SIGNED BY: Khadijah Dalton RDMS July 14, 2024 11:27 AM [facility] 07-14-2024 Telephone encounter Note ----- Message from Tobi Sorto MD sent at 07/14/2024 7:03 AM EDT ----- UA positive for protein in the urine as well as sugar. Negative for infection. Work on low carb diet and regular exercise for history of diabetes. Awaiting kidney/bladder US results. [facility] 07-09-2024 Telephone encounter Note Phoned patient and reviewed provider's message with him. Patient voiced understanding. Dolores Jama LPN [facility] 07-09-2024 Miscellaneous Notes Phoned patient and reviewed [...] for urine testing. documented in this encounter [facility] 07-09-2024 Telephone encounter Note ----- Message from [...] this week or next for urine testing. [facility] 07-08-2024 Note HNO ID: [id number] Author: TOBI SORTO MD Service: ? 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 [facility] 07-07-2024 Miscellaneous Notes Pt returned call and [...] to requested pharmacy. documented in this encounter [facility] 07-07-2024 Telephone encounter Note VM left for patient to return call to review FOBT results. Doloers Jama LPN [facility] 07-07-2024 Telephone encounter Note ----- Message from Tobi Sorto MD sent at 07/07/2024 8:47 AM EDT ----- FOBT negative for blood in the stool. Continue iron supplement and recheck labs after 08/30 as previously ordered. [facility] 06-30-2024 Telephone encounter Note Patient's iron stores [...] agreeable, will send rx to requested pharmacy. [facility] 06-09-2024 Note HNO ID: [id number] Author: RAO HILLMAN, ? Service: ? Author [...] RTC in 3-4 months. Rao Hillman DPM [facility] 06-09-2024 History of Present illness [...] previously. SRUTHI 03/10/24 documented in this encounter [facility] 06-09-2024 Note HNO ID: [id number] Author: FERN AGUILAR RN Service: ? Author [...] was an open would previously. SRUTHI 03/10/24 [facility] 06-04-2024 Telephone encounter Note PDMP website checked and validated. All prescriptions have been APPROPRIATELY filled. No suspicious activity was identified. 06/04/2024 by Tobi Sorto MD [facility] 06-04-2024 Miscellaneous Notes PDMP website checked and [...] 2024 2:38 PM documented in this encounter [facility] 06-03-2024 Telephone encounter Note Prescription Refill Information [...] Marilee Samuels June 03, 2024 2:38 PM [facility] 05-28-2024 Telephone encounter Note Patient called asking for a refill on gabapentin 300 mg capsules. [facility] 05-28-2024 Miscellaneous Notes Patient called asking for a refill on gabapentin 300 mg capsules. documented in this encounter [facility] 05-13-2024 Telephone encounter Note TC to patient who is notified medication sent to pharmacy. AALIYAH Blank [facility] 05-13-2024 Miscellaneous Notes TC to patient who [...] 2024 10:15 AM documented in this encounter [facility] 05-13-2024 Telephone encounter Note PDMP website checked and validated. All prescriptions have been APPROPRIATELY filled. No suspicious activity was identified. 05/13/2024 by Tobi Sorto MD [facility] 05-13-2024 Telephone encounter Note Prescription Refill Information [...] Lily Brown May 13, 2024 10:15 AM [facility] 04-28-2024 Telephone encounter Note [facility] website checked and validated. All prescriptions have been APPROPRIATELY filled. No suspicious activity was identified. 04/28/2024 by Audrey Packer APRN.EDENILSON [facility] 04-28-2024 Miscellaneous Notes [facility]. All prescriptions have [...] 2024 11:16 AM documented in this encounter [facility] 04-28-2024 Telephone encounter Note Patient requesting a 90 day supply. Vira Terry MA [facility] 04-28-2024 Telephone encounter Note Prescription Refill Information [...] Jael Samuels April 28, 2024 11:16 AM [facility] 04-25-2024 Note Addended by: TOBI SORTO on: 04/25/2024 02:00 PM Modules accepted: Orders [facility] 04-25-2024 Telephone encounter Note Stopped at last OV. Given requip for RLS. Let us know if symptoms not improving. [facility] 04-25-2024 Miscellaneous Notes Addended by: TOBI SORTO [...] you. Audrey Bacon. documented in this encounter [facility] 04-25-2024 Telephone encounter Note Patient has been identified by name and date of : Yes Patient phones for refill(s): tiZANidine (ZANAFLEX) 2 mg tablet (not in refill list) Date of last office visit in primary care: 04/09/2024 Date of next office visit in primary care: 07/08/2024 Please advise. Thank you. Audrey Bacon. [facility] 04-09-2024 Note HNO ID: [id number] Author: TOBI SORTO MD Service: ? 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 Amanda Hammer RN [facility] 04-08-2024 Miscellaneous Notes Patient calls and states [...] Amanda Hammer RN documented in this encounter [facility] 03-25-2024 Telephone encounter Note PDMP website checked and validated. All prescriptions have been APPROPRIATELY filled. No suspicious activity was identified. 03/25/2024 by Audrey Packer APRN.EDENILSON [facility] 03-25-2024 Miscellaneous Notes PDMP website checked and [...] Marilee Hernández RN documented in this encounter [facility] 03-25-2024 Telephone encounter Note The patient has [...] needed for muscle spasms Marilee Hernández RN [facility] 03-24-2024 Telephone encounter Note Patient's request for medication is as follows: Requested Prescriptions Pending Prescriptions Disp Refills fluticasone-salmeterol (ADVAIR) 500-50 mcg/dose dsdv [Pharmacy Med Name: FLUTICASONE-SALMETEROL 500-50] 60 Each 4 Sig: INHALE 1 PUFF INSTRUCTED TWO TIMES A DAY SRUTHI: 09/17/23 Please approve the above prescription(s) to electronically send to pharmacy. Karen Vera LPN [facility] 03-24-2024 Miscellaneous Notes Patient's request for medication is as follows: Requested Prescriptions Pending Prescriptions Disp Refills fluticasone-salmeterol (ADVAIR) 500-50 mcg/dose dsdv [Pharmacy Med Name: FLUTICASONE-SALMETEROL 500-50] 60 Each 4 Sig: INHALE 1 PUFF INSTRUCTED TWO TIMES A DAY SRUTHI: 09/17/23 Please approve the above prescription(s) to electronically send to pharmacy. Karen Vera LPN documented in this encounter [facility] 03-10-2024 History of Present illness Narrative Radiology [...] PATIENT PRESENTS WITH AN IMPLANTABLE OR ATTACHED LOAD BUILDER: No RADIOLOGY DEPARTMENT: General X-ray: Exam(s) Completed: Lower Extremity X-Ray(s): Ankle, Right and Wt. Bearing PERIPHERAL IV DATA: Not applicable SIGNED BY: RT Val(Laurence) March 10, 2024 1:31 PM documented in this encounter [facility] 03-10-2024 Note HNO ID: [id number] Author: LILIANE LEWIS RT(Laurence) Service: ? Author [...] PATIENT PRESENTS WITH AN IMPLANTABLE OR ATTACHED LOAD BUILDER: No RADIOLOGY DEPARTMENT: General X-ray: Exam(s) Completed: Lower Extremity X-Ray(s): Ankle, Right and Wt. Bearing PERIPHERAL IV DATA: Not applicable SIGNED BY: RT Val(R) March 10, 2024 1:31 PM [facility] 03-10-2024 Note HNO ID: [id number] Author: RAO HILLMAN, ? Service: ? Author [...] will help patient. Will call in to [facility]. Patient was instructed on the continued importance of diabetic foot care along with proper diet and keeping their blood sugar under control to prevent complications. Stressed the importance of avoiding barefoot walking, wearing good shoes and inspection of feet. Patient is to RTC in 3-4 months. Rao Hillman DPM [facility] 03-10-2024 History of Present illness [...] will help patient. Will call in to [facility]. Patient was instructed on the continued importance [...] Bekah Flynn LPN documented in this encounter [facility] 03-10-2024 Note HNO ID: [id number] Author: BEKAH FLYNN LPN Service: ? Author Type: LICENSED NURSE Type: Progress Notes Filed: 03/10/2024 09:30 Note Text: AMB ROOMING INTAKE FLOWSHEET DATA Patient presents with: Left Foot - Established Patient, Follow Up, Diabetic Foot Care Right Foot - Established Patient, Follow Up, Diabetic Foot Care Bekah Flynn LPN [facility] 03-07-2024 Note HNO ID: [id number] Author: ?, ?, ? Service: ? Author Type: ? Type: Progress Notes Filed: 03/07/2024 18:10 Note Text: Date: March 07, 2024 Name: Joshua Estes Comments: HST was returned in working order with all sleep questionnaires. Invalid, study less than 1-2 hours total. Myc sent to repeat testing. Yousuf Milner [facility] 03-07-2024 Telephone encounter Note Phoned patient and reviewed message with him. Patient voiced understanding. Dolores Jama LPN [facility] 03-07-2024 Miscellaneous Notes Phoned patient and reviewed message with him. Patient voiced understanding. Dolores Jama LPN ----- Message from Audrey Packer APRN.WEB SOLUTIONS ARCHITECT sent at 03/07/2024 5:52 AM EST ----- Iron levels are fine. Audrey Packer APRN.WEB SOLUTIONS ARCHITECT documented in this encounter [facility] 03-07-2024 Telephone encounter Note ----- Message from Audrey Packer APRN.WEB SOLUTIONS ARCHITECT sent at 03/07/2024 5:52 AM EST ----- Iron levels are fine. Audrey Packer APRN.WEB SOLUTIONS ARCHITECT [facility] 03-04-2024 Instructions Audrey Packer APRN.EDENILSON - 03/04/2024 9:54 AM EST Start B complex vitamin containing 30 mg of vitamin B6- take one tablet or capsule three times a day and may also take Vitamin E 800 units daily at bedtime documented in this encounter [facility] 03-04-2024 Note HNO ID: [id number] Author: AUDREY PACKER APRN.EDENILSON Service: ? Author [...] 17.4 (H) Hem (more content not included)... [facility] 03-04-2024 History of Present illness [...] Aneurysm (HCC) right common femoral artery. Dr. Ordoñze Colon polyps 08/2018 benign, repeat in 10 [...] Abs Lymph 1.00 - 4.00 k/uL 2.50 Stephens% % 8.5 Abs Stephens <0.87 k/uL 0.84 Eosin% % 3.9 Abs [...] 4 - Moderate documented in this encounter [facility] 03-03-2024 Note HNO ID: [id number] Author: ?, ?, ? Service: ? Author Type: ? Type: Progress Notes Filed: 03/03/2024 16:19 Note Text: Called and spoke with patient. Patient stated package nick out today 03/03 via [employer]. Typed tracking in to [employer] and was not able tto gather info; recevied error message [facility] 03-03-2024 Telephone encounter Note [facility] and [facility]. All prescriptions have been APPROPRIATELY filled. No suspicious activity was identified. 03/03/2024 by Audrey Packer APRN.CNP [facility] 03-03-2024 Miscellaneous Notes [employer] website checked and validated. All prescriptions have [...] 2024 9:06 AM documented in this encounter [facility] 03-03-2024 Telephone encounter Note Prescription Refill Information [...] Vijaya Razo March 03, 2024 9:06 AM [facility] 02-26-2024 Note HNO ID: [id number] Author: ?, ?, ? Service: ? Author Type: ? Type: Progress Notes Filed: 02/26/2024 16:58 Note Text: [employer] # [id number], date shipped out 02-26-24 [employer] only Tracking mailout:[id number] Tracking return: [id number] [facility] 02-26-2024 Telephone encounter Note Spoke with pt and informed him our records show a valid rx at the pharmacy. Therese Layc LPN [facility] 02-26-2024 Miscellaneous Notes Spoke with pt and [...] you. Audrey Bacon. documented in this encounter [facility] 02-26-2024 Telephone encounter Note Patient has been [...] 07/08/2024 Please advise. Thank you. Audrey Bacon. [facility] 02-22-2024 Note HNO ID: [id number] Author: KIM YATES MD Service: ? Author Type: Physician Type: Progress Notes Filed: 02/22/2024 10:23 Note Text: February 22, 2024 Standing PSG Orders signed in the last 90 days None Future PSG Orders signed in the last 90 days Ordered Auth. provider HOME SLEEP APNEA TEST (HSAT) [[id number]] 02/13/24 PodlogarAudrey APRN.WEB SOLUTIONS ARCHITECT Assoc. diagnoses: Daytime somnolence [R40.0], Snoring [R06.83] [...] Special instructions: None-follow laboratory protocol Mounika Cui [facility] Staff Note: I have read the above protocol, edited as needed, and agree to the plan. Kim Yates MD 10:23 AM, 02/22/2024 [facility] 02-22-2024 History of Present illness Narrative February 22, 2024 Standing PSG Orders signed in the last 90 days None Future PSG Orders signed in the last 90 days Ordered Auth. provider HOME SLEEP APNEA TEST (HSAT) [[id number]] 02/13/24 PodlogAudrey kwan APRN.WEB SOLUTIONS ARCHITECT Assoc. diagnoses: Daytime somnolence [R40.0], Snoring [R06.83] [...] Test (HSAT) from Audrey Shanks a B. [facility] Staff. Visit prep complete. Comments :No The sleep study is scheduled for 02/29/24. Insurance: Payor: DEVOTED MEDICARE / Plan: [employer] [place] HMO / Product Type: HMO / Payer/Plan Subscr Sex Relation Sub. Ins. ID Effective Group Num 1. DEVOTED MEDIC* FRANKLYNJOSHUA Sharp 1955 Male Self [id number] 12/02/23 [address] Davina Montemayor documented in this encounter [facility] 02-21-2024 Note HNO ID: [id number] Author: ?, ?, ? Service: ? Author Type: ? Type: Progress Notes Filed: 02/22/2024 10:23 Note Text: February 21, 2024 An order has been received for Home Sleep Apnea Test (HSAT) from Audrey Shanks a B. [facility] Staff. Visit prep complete. Comments :No The sleep study is scheduled for 02/29/24. Insurance: Payor: DEVOTED MEDICARE / Plan: [employer] [place] HMO / Product Type: HMO / Payer/Plan Subscr Sex Relation Sub. Ins. ID Effective Group Num 1. DEVOTED MEDIC* RUSS ESTESPatricia Sharp 1955 Male Self [id number] 12/02/[birth year] [address] Davina Montemayor [facility] 02-20-2024 Telephone encounter Note Phoned patient and updated him order placed and gave him the toll free number for the HSAT. He voiced understanding and reports he will call and get it set up. Dolores Jama LPN [facility] 02-20-2024 Miscellaneous Notes Phoned patient and updated him order placed and gave him the toll free number for the HSAT. He voiced understanding and reports he will call and get it set up. Dolores Jama LPN [employer] message sent to pt notifying him we've [...] or witnessed episodes of apnea? Audrey Packer APRN.WEB SOLUTIONS ARCHITECT Patient reported he had discussed sleep study with Audrey but did not want to complete one initially. Patient now requesting at home sleep study. Dolores Jama LPN documented in this encounter [facility] 02-20-2024 Telephone encounter Note Patient has been [...] 07/08/2024 Please advise. Thank you. Audrey Bacon. [facility] 02-20-2024 Miscellaneous Notes Patient has been identified [...] you. Audrey Bacon. documented in this encounter [facility] 02-19-2024 Telephone encounter Note [employer] message sent to pt notifying him we've attempted to reach him by phone with message left on for a return call to office. Asked pt to contact office and speak with Triage Nurse. Notify pt of message below from Provider. Janice Caballero MA [facility] 02-13-2024 Telephone encounter Note Telephone call placed to patient to make aware, message left to call office back for update. Marleny Raygoza LPN [facility] 02-13-2024 Telephone encounter Note Patient would like home sleep study ordered. Endorses daytime fatigue and lod snoring. Reports waking up at night feeling like he can not get air in. Order placed. Please let patient know [facility] 02-13-2024 Telephone encounter Note Pt [...] to fall back asleep. Dolores Sawyer LPN [facility] 02-13-2024 Telephone encounter Note Left vm for patient to return call to nurse for provider's message. [facility] 02-12-2024 Telephone encounter Note Sorry I don't see where I documented we talked about this. Does he have daytime fatigue or told he has loud snoring or witnessed episodes of apnea? Audrey Packer APRN.WEB SOLUTIONS ARCHITECT [facility] 02-12-2024 Telephone encounter Note Patient reported he had discussed sleep study with Audrey but did not want to complete one initially. Patient now requesting at home sleep study. Dolores Jama LPN [facility] 02-07-2024 Telephone encounter Note Pt is requesting refills on the following medication. Please file if appropriate. [facility] 02-07-2024 Miscellaneous Notes Pt is requesting refills on the following medication. Please file if appropriate. documented in this encounter [facility] 02-06-2024 Note HNO ID: [id number] Author: ROLANDO JEAN MD Service: ? Author Type: Physician Type: Progress Notes Filed: 02/06/2024 16:06 Note Text: [facility] [place] DEPARTMENT OF VASCULAR SURGERY OUTPATIENT VISIT DATE [...] He has been seen by his local chef de froid. 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 ALLERGIES: ALLERG (more content not included)... [facility] 02-06-2024 History of Present illness Narrative Images from the original note were not included. [facility] [place] DEPARTMENT OF VASCULAR SURGERY OUTPATIENT VISIT DATE [...] He has been seen by his local chef de froid. 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 Thank you. Audrey Bacon. [facility] 01-28-2024 Miscellaneous Notes Patient has been identified [...] you. Audrey Bacon. documented in this encounter [facility] 01-21-2024 Telephone encounter Note PDMP website checked and validated. All prescriptions have been APPROPRIATELY filled. No suspicious activity was identified. 01/21/2024 by Audrey Packer APRN.WEB SOLUTIONS ARCHITECT [facility] 01-21-2024 Miscellaneous Notes PDMP website checked and validated. All prescriptions have been APPROPRIATELY filled. No suspicious activity was identified. 01/21/2024 by Audrey Packer APRN.WEB SOLUTIONS ARCHITECT Patient has been identified by name and [...] 2024 3:39 PM documented in this encounter [facility] 01-21-2024 Telephone encounter Note Patient has been [...] Please advise. Thank you. Alondra Gillette MA. [facility] 01-21-2024 Telephone encounter Note Prescription Refill Information [...] Ebony Samuels January 21, 2024 3:39 PM [facility] 01-10-2024 Telephone encounter Note Spoke with patient appt scheduled 02/06/24 with with testing. [facility] 01-10-2024 Miscellaneous Notes Spoke with patient appt scheduled 02/06/24 with with testing. Triage please? What testing will he need? Thanks, Reason for call: Mr Estes called and he would like to schedule an appointment with Contact Name (If not the pt): Home and cell number: [phone] Diagnosis: Post PAD surgery , pt having issues with is leg Kind Angel Schuler documented in this encounter [facility] 01-10-2024 Telephone encounter Note Triage please? What testing will he need? Thanks, [facility] 01-08-2024 Telephone encounter Note Reason for call: Mr Franklyn called and he would like to schedule an appointment with Contact Name (If not the pt): Home and cell number: [phone] Diagnosis: Post PAD surgery , pt having issues with is leg Kind Angel Schuler [facility] 01-08-2024 History of Present illness Narrative 01/08/2024 [...] Abs Lymph 1.00 - 4.00 k/uL 2.50 Stephens% % 8.5 Abs Stephens <0.87 k/uL 0.84 Eosin% % 3.9 Abs [...] 4 - Moderate documented in this encounter [facility] 01-08-2024 Note HNO ID: [id number] Author: AUDREY PACKER APRN.CNP Service: ? Author [...] Smokeless tobacco: Nev (more content not included)... [facility] 12-21-2023 Telephone encounter Note Rx sent for 30 days for 400 mg gabapentin TID. Call if symptoms not improving in 2 weeks. [facility] 12-21-2023 Miscellaneous Notes Rx sent for 30 days for 400 mg gabapentin TID. Call if symptoms not improving in 2 weeks. Pt agreeable to increase Gabapentin. Uses [facility]. Rosalva Awad MA He is also [...] Marleny Raygoza LPN documented in this encounter [facility] 12-20-2023 Telephone encounter Note Pt agreeable to increase Gabapentin. Uses [facility]. Rosalva Awad MA [facility] 12-20-2023 Telephone encounter Note He is also on gabapentin which helps with RLS, we could try increasing dosage to 400 mg TID. If agreeable, will send new rx. [facility] 12-20-2023 Telephone encounter Note Pt notified. He states he taking 2 Zanaflex every night since being started taking. Any other suggestions? Rosalva Awad MA [facility] 12-20-2023 Telephone encounter Note He is on max dose of Requip for RLS. Has he tried taking 2 tablets of the Zanaflex at night? T [facility] 12-19-2023 Telephone encounter Note Patient telephoned. States he is not getting any relief from the new medication he started for restless leg/muscle spasms. (Tizanidine) Says he is up until 3am most nights where his legs are jumping like crazy and not getting any sleep. Would like some advise on what to do next. Please advise. Marleny Raygoza LPN T [facility] 12-05-2023 Note HNO ID: [id number] Author: AUDREY PACKER APRN.WEB SOLUTIONS ARCHITECT Service: ? Author Type: Nurse Practitioner Type: [...] years No date: Diabetes mellitus, type II ([facility]) No date: Diabetic ulcer of toe of right foot ([facility]) No date: DVT (deep venous thrombosis) ([facility]) No date: GERD (gastroesophageal reflux [...] normal, rapid alte (more content not included)... [facility] 12-05-2023 History of Present illness [...] years No date: Diabetes mellitus, type II ([facility]) No date: Diabetic ulcer of toe of right foot ([facility]) No date: DVT (deep venous thrombosis) ([facility]) No date: GERD (gastroesophageal reflux disease) No date: Hyperlipidemia No date: Hypertension No date: Obesity No date: PAC (premature atrial contraction) No date: Peripheral arterial disease ([facility]) No date: Restless leg syndrome [...] more in depth taste testing Audrey Podlogar, HAT LINING BLOCKER.WEB SOLUTIONS ARCHITECT Prescription instructions reviewed with patient as applicable. [...] 4 - Moderate documented in this encounter [facility] 12-04-2023 Instructions Rao Hillman - 12/04/2023 10:06 [...] (or decreased sensation in your feet) a chef de froid should always cut your toenails. Be Careful [...] Go to your health care provider or chef de froid to treat these conditions. documented in this encounter [facility] 12-04-2023 Note HNO ID: [id number] Author: RAO HILLMAN, ? Service: ? Author [...] done in May . Rao Hillman DPM [facility] 12-04-2023 History of Present illness [...] Bekah Flynn LPN documented in this encounter [facility] 12-04-2023 Note HNO ID: [id number] Author: BEKAH FLYNN LPN Service: ? Author Type: LICENSED NURSE Type: Progress Notes Filed: 12/04/2023 11:04 Note Text: AMB ROOMING INTAKE FLOWSHEET DATA Patient presents with: Left Foot - Established Patient, Follow Up, Callous, Hammer Toe, Pain Right Foot - Established Patient, Follow Up, Callous Bekah Flynn LPN [facility] 11-27-2023 Telephone encounter Note Prescription [...] Ebony Samuels November 27, 2023 11:27 AM [facility] 11-27-2023 Miscellaneous Notes Prescription Refill Information The [...] 2023 11:27 AM documented in this encounter [facility] 11-05-2023 Telephone encounter Note Prescription Refill Information [...] Vijaya Razo November 05, 2023 10:54 AM [facility] 11-05-2023 Miscellaneous Notes Prescription Refill Information The [...] 2023 10:54 AM documented in this encounter [facility] 09-25-2023 History of Present illness Narrative Last [...] with diabetes mellitus due to underlying condition ([facility]) (B35.1) Onychomycosis (M79.675) Pain in [...] 2 month follow up callus and hammertoe. [facility] 07/23/23 documented in this encounter [facility] 09-24-2023 Instructions Rao Hillman - 09/24/2023 10:22 [...] (or decreased sensation in your feet) a chef de froid should always cut your toenails. Be Careful [...] Go to your health care provider or chef de froid to treat these conditions. documented in this encounter [facility] 09-18-2023 Telephone encounter Note Prescription Refill Information [...] Vijaya Razo September 18, 2023 3:48 PM [facility] 09-18-2023 Miscellaneous Notes Prescription Refill Information The [...] 2023 3:48 PM documented in this encounter [facility] 09-17-2023 History of Present illness Narrative Images [...] in agreement. Alondra Broderick MD, Staff, Respiratory [place] [facility] CHIEF COMPLAINT: Cough HISTORY OF PRESENT ILLNESS: [...] No significant exposure Silica: No significant exposure Iroquois: No significant exposure Mold: No significant exposure [...] Stable exam with no acute radiographic abnormality. 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 Transcribe Date/Time: Aug 11 2023 5:13P Dictated by : SANTOSH BEACH MD This examination was interpreted and the report reviewed and electronically signed by: SANTOSH BEACH MD on Aug 11 2023 5:16PM EST XR CHEST 2V FRONTAL/LAT Result Date: 11/20/2022 IMPRESSION: No acute radiographic abnormality. 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 Transcribe Date/Time: Nov 20 2022 1:03P [...] 390 QTC Calculation (Bazett) 438 Calculated P [place] 18 Calculated R [place] -48 Calculated T [place] 23 Impression SINUS RHYTHM WITH PREMATURE ATRIAL COMPLEXES IN A PATTERN OF BIGEMINY LEFT AXIS DEVIATION LOW VOLTAGE QRS, CONSIDER PULMONARY DISEASE, PERICARDIAL EFFUSION, OR NORMAL VARIANT INFERIOR MYOCARDIAL INFARCTION , AGE UNDETERMINED POSSIBLE ANTEROLATERAL INFARCTION , AGE UNDETERMINED ABNORMAL ECG Recent Results (from the past 98527 hour(s)) ECHO Collection Time: 09/04/23 11:06 AM [...] disease counseling. Alondra Broderick MD, Staff, Respiratory [place] [facility] CC: MD Macario Aburto Christopher B,* documented in this encounter [facility] 09-10-2023 Telephone encounter Note Future office visit: 01/08/2024 Gi Sutton LPN September 10, 2023 2:07 PM [facility] 09-10-2023 Miscellaneous Notes Future office visit: 01/08/2024 [...] 2023 11:31 AM documented in this encounter [facility] 09-10-2023 Telephone encounter Note Prescription Refill Information [...] Patricia Samuels September 10, 2023 11:31 AM [facility] 09-07-2023 Telephone encounter Note Patient stated he will schedule pulmonary consult today in [facility]. He will check with his insurance regarding at home sleep test and will call back if he finds it would be covered. [facility] 09-07-2023 Miscellaneous Notes Patient stated he will schedule pulmonary consult today in [facility]. He will check with his insurance regarding [...] for further workup. documented in this encounter [facility] 09-04-2023 Telephone encounter Note Patient is bringing another patient in Sunday for her appointment with Dr Sorto. [facility] 09-04-2023 Telephone encounter Note I dont see an OV for Sunday, but I have openings tomorrow if he would like appointment to discuss results. [facility] 09-04-2023 Telephone encounter Note Pt called and [...] other appointments that day. Fern Stephen, RN [facility] 09-04-2023 Telephone encounter Note Repeat blood counts [...] recommend referral to pulmonology for further workup. [facility] 09-04-2023 Telephone encounter Note Patient was notified Alondra Gillette MA [facility] 09-04-2023 Miscellaneous Notes Patient was notified Alondra [...] (AMARYL) 4 mg tablet ( PHARMACY: [facility]. documented in this encounter [facility] 09-04-2023 Telephone encounter Note Rx sent. [facility] 09-04-2023 Telephone encounter Note Patient has been [...] Please advise. Thank you. Rossana Moreland LPN. [facility] 09-04-2023 Telephone encounter Note Patient is requesting medication that is . Patient requesting glimepiride (AMARYL) 4 mg tablet ( PHARMACY: [facility]. [facility] 09-04-2023 Telephone encounter Note Patient has been [...] 01/08/2024 Please advise. Thank you. Magdalena Merrill. [facility] 09-04-2023 Miscellaneous Notes Patient has been identified [...] you. Magdalena Merrill. documented in this encounter [facility] 09-03-2023 Telephone encounter Note Completed at Pulmonary appointment today. Marleny Raygoza LPN [facility] 09-03-2023 Miscellaneous Notes Completed at Pulmonary appointment today. Marleny Raygoza LPN Respiratory therapy requesting exhaled nitric oxide testing for patient with SOB and cough. New order placed. documented in this encounter [facility] 09-03-2023 Procedure note Associated Ord er(s): NITRIC [...] DATE: September 03, 2023 TIME: 10:04 AM [facility] 09-03-2023 Procedure note Associated Ord er(s): NITRIC [...] TIME: 10:04 AM documented in this encounter [facility] 09-03-2023 History of Present illness Narrative PULM FUNCTION SMARTBLOCK: Provider: Tobi Sorto MD Assisting Tech: Dee Sparks RPFT Exhaled Nitric Oxide: 1 documented in this encounter [facility] 09-03-2023 Telephone encounter Note Respiratory therapy requesting exhaled nitric oxide testing for patient with SOB and cough. New order placed. [facility] 08-31-2023 Telephone encounter Note Patient notified [facility] Work Phone: 08-31-2023 Miscellaneous Notes Patient notified [...] with severe symptoms. documented in this encounter [facility] 08-31-2023 Telephone encounter Note Message left for patient to return call to review results and recommendations. Dolores Jama LPN [facility] 08-31-2023 Telephone encounter Note ----- Message from [...] go to the ER with severe symptoms. [facility] 08-29-2023 Telephone encounter Note Patient notified. Will call into scheduling to schedule. Marleny Raygoza LPN [facility] 08-29-2023 Miscellaneous Notes Patient notified. Will call into scheduling to schedule. Marleny Raygoza LPN Attempted to call patient 2 times. Both times the line had static, difficult to hear, and call disconnected. Please try again later. PFTs negative for obstruction, but does show possible restrictive lung disease. Recommend obtaining lung volumes to confirm. documented in this encounter [facility] 08-29-2023 Telephone encounter Note Attempted to call patient 2 times. Both times the line had static, difficult to hear, and call disconnected. Please try again later. [facility] 08-28-2023 Telephone encounter Note PFTs negative for obstruction, but does show possible restrictive lung disease. Recommend obtaining lung volumes to confirm. [facility] 08-28-2023 Telephone encounter Note Patient telephoned. Went over providers message below. Patient wants to think on the injectable medication and will give the office a call back to schedule if he decides he wants to try that route. Marleny Raygoza LPN [facility] 08-28-2023 Miscellaneous Notes Patient telephoned. Went over [...] staying well hydrated with water. Audrey Packer APRN.WEB SOLUTIONS ARCHITECT documented in this encounter [facility] 08-28-2023 Telephone encounter Note ----- Message from [...] staying well hydrated with water. Audrey Packer APRN.WEB SOLUTIONS ARCHITECT [facility] 08-22-2023 History of Present illness Narrative PULM FUNCTION SMARTBLOCK: Provider: Tobi Sorto MD Assisting Tech: Dee Sparks RPFT Spirometry w/BD: 1 documented in this encounter [facility] 08-17-2023 Telephone encounter Note Pt called and is notified of providers results and instructions. Pt voices understanding. Transferred to scheduled to set up appt for PFTs. Fern Stephen RN [facility] 08-17-2023 Miscellaneous Notes Pt called and is [...] call and advise. documented in this encounter [facility] 08-17-2023 Telephone encounter Note PFTs ordered. Will add on tessalon to take PRN for cough and can use OTC mucinex for chest congestion or delsym for cough. If symptoms have not improved with the omeprazole or flonase, I would have him stop them at this point. Will see what his breathing tests show. [facility] 08-17-2023 Telephone encounter Note Pt called in [...] him any relief. Please call and advise. [facility] 08-14-2023 Telephone encounter Note Phoned patient and reviewed results and recommendations with him. Patient voiced understanding. [facility] 08-14-2023 Miscellaneous Notes Phoned patient and reviewed [...] 9 months ago. documented in this encounter [facility] 08-13-2023 Telephone encounter Note Blood work shows high sugar in the 150's with high hemoglobin and hematocrit. Other labs are normal. I would recommend increasing water intake and working on low carb diet. Repeat CBC with peripheral smear in 3-4 weeks to see if blood counts return to normal like they did 9 months ago. [facility] 08-13-2023 Telephone encounter Note Patient has been [...] Please advise. Thank you. Tawny Santos MA. [facility] 08-13-2023 Miscellaneous Notes Patient has been identified [...] Tawny Santos MA. documented in this encounter [facility] 08-13-2023 Telephone encounter Note Attempted to contact patient to review results. Advised results sent via [address] for him to review. Also advised to call if any questions. Please leave encounter open until patient calls or reviews [address] message. [facility] 08-13-2023 Miscellaneous Notes Attempted to contact patient to review results. Advised results sent via [address] for him to review. Also advised to call if any questions. Please leave encounter open until patient calls or reviews [facility]. ----- Message from Tobi Sorto MD sent at 08/13/2023 8:05 AM EDT ----- Normal chest xray. documented in this encounter [facility] 08-13-2023 Telephone encounter Note ----- Message from Tobi Sorto MD sent at 08/13/2023 8:05 AM EDT ----- Normal chest xray. [facility] 08-10-2023 History of Present illness Narrative EVENT MONITOR DISPOSABLE PATCH INSTRUCTIONS Patient Name: Joshua Estes Clinic Number: [id number] Skin prepped and cleansed with alcohol Patch secured to prepped area Monitor Activated Serial #: [id number] Patient Instructed: Prescribed order timeframe Bathing guidelines Usage of event button and diary documentation Return of monitor at the end of prescribed order Call with problems [phone] or [phone]. 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 All prescriptions have been APPROPRIATELY filled. No suspicious activity was identified. 08/06/2023 by Audrey Packer APRN.WEB SOLUTIONS ARCHITECT [facility] 08-06-2023 Miscellaneous Notes PDMP website checked and validated. All prescriptions have been APPROPRIATELY filled. No suspicious activity was identified. 08/06/2023 by Audrey Packer APRN.WEB SOLUTIONS ARCHITECT Patient has been identified by name and [...] you. Ebony Samuels. documented in this encounter [facility] 08-06-2023 Telephone encounter Note Patient has been [...] 01/08/2024 Please advise. Thank you. Ebony Samuels. 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 SRUTHI- 05/28/23 documented in this encounter [facility] 07-09-2023 History of Present illness Narrative 07/09/2023 [...] - stable on current regime Audrey Packer APRN.WEB SOLUTIONS ARCHITECT Prescription instructions reviewed with patient as applicable. [...] 4 - Moderate documented in this encounter [facility] 07-04-2023 History of Present illness Narrative 07/04/2023 [...] 3 - Low documented in this encounter [facility] 05-11-2023 Miscellaneous Notes Patient notified of results [...] Audrey Packer APRN.EDENILSON documented in this encounter [facility] 05-10-2023 Miscellaneous Notes Looking at med list, [...] you. Patricia Samuels. documented in this encounter [facility] 05-10-2023 Instructions Rao Hillman - 05/10/2023 10:01 AM EST Apply small amount of topical antibiotic to left great toe daily Use surgical shoe Follow-up 2 weeks Ulceration measures 1 mm in diameter documented in this encounter [facility] 05-10-2023 History of Present illness Narrative FOLLOW [...] (H) 4.3 - 5.6 % Final Comment: [employer] guidelines indicate that patients with [...] Blood-Glucose Meter (TRUE METRIX AIR GLUCOSE METER) [facility] [place] Device twice daily. 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 Non-Invasive Vascular Laboratory [facility] Lower Extremity Arterial Physiology Study Bilateral/Complete Date [...] Normal at rest. Technologist: Alice Duncan RVT [facility] Ordering physician: RAO HILLMAN Interpreting physician: MAHAMED [...] Bekah Flynn LPN documented in this encounter [facility] 04-09-2023 Miscellaneous Notes Patient has been identified [...] patient. Mamie Samuels documented in this encounter [facility] 02-26-2023 Miscellaneous Notes SRUTHI 01/05/23 NOV 07/09/23 [...] Mamie Comer Pss documented in this encounter [facility] 02-05-2023 Miscellaneous Notes Patient has been identified by name and date of : Yes Requested Prescriptions Pending Prescriptions Disp Refills cyclobenzaprine (FLEXERIL) 5 mg tablet 30 tablet 1 Sig: Take 1-2 tablets at bedtime as needed for muscle spasms RX INSTRUCTIONS: Patient aware RX will be sent to pharmacy. No need to notify patient. Patricia Lacy Pss documented in this encounter [facility] 01-08-2023 Miscellaneous Notes Patient notified and verbalized understanding. Tawny Santos MA Prescription for Jardiance sent. Would like him to repeat A1c in 3 months. I placed order for labs. Audrey Packer APRN.CNP TC to patient who verbalized understanding of providers message below. Patient states he would like restart medication and requesting that Jaurdiance script be sent to [facility] in [place]. Please review and advise. Thank you. AALIYAH [...] Audrey Packer APRN.CNP documented in this encounter [facility] 01-05-2023 History of Present illness Narrative 01/05/2023 [...] Abs Lymph 1.00 - 4.00 k/uL 2.29 Stephens% % 8.5 Abs Stephens <0.87 k/uL 0.83 Eosin% % 4.7 Abs [...] 6 months, sooner if needed Audrey Packer APRN.WEB SOLUTIONS ARCHITECT Prescription instructions reviewed with patient as applicable. [...] which included preparing to see the patient, [id number] patient care, completing clinical documentation, obtaining and/or reviewing separately obtained history, performing a medically appropriate examination, counseling and educating the patient/family/caregiver, and ordering medications, tests, or procedures. 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 documented in this encounter [facility] 11-20-2022 Miscellaneous Notes Spoke with patient. Given message from provider's office. Patient verbalizes understanding. Genny Estrada RN TC to patient with no answer. Left VM to return call to office to receive results. AALIYAH Blank ----- Message from oTbi Sorto MD sent at 11/20/2022 1:22 PM EDT ----- Normal CXR. Continue albuterol PRN along with tessalon for cough. Call if not improving in 1-2 weeks with supportive care. 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 Lancets lancets Test [...] Tobi Sorto MD documented in this encounter [facility] 11-08-2022 Miscellaneous Notes Patient called. Verified name and date of . Patient is planning to use his current boot. Also informed of [address] message regarding results and x-rays. Patient verbalizes understanding. Sheryl Hendrix LPN Called patient to provided below instructions. No response. Left VM. Bekah Flynn LPN Images from the original note were not included. Rao Hillman [facility] Podiatry Pool 1 hour ago (7:06 [...] Mady Singh RN documented in this encounter [facility] 11-07-2022 Miscellaneous Notes Patient phones requesting refills as follows: Requested Prescriptions Pending Prescriptions Disp Refills cyclobenzaprine (FLEXERIL) 5 mg tablet 30 tablet 1 Sig: Take 1-2 tablets at bedtime as needed for muscle spasms SRUTHI 10/18/22 NOV 01/05/23 Please review and advise. Dolores Jama LPN documented in this encounter [facility] 11-07-2022 History of Present illness Narrative Radiology [...] 2022 12:34 PM documented in this encounter [facility] 11-07-2022 Instructions Rao Hillman - 11/07/2022 11:32 [...] (or decreased sensation in your feet) a chef de froid should always cut your toenails. Be Careful [...] Go to your health care provider or chef de froid to treat these conditions. 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 Pain relief is achieved by elevating in recliner. documented in this encounter [facility] 10-18-2022 History of Present illness Narrative Radiology [...] 2022 10:33 AM documented in this encounter [facility] 10-18-2022 Instructions Lita Abel APRN.WEB SOLUTIONS ARCHITECT - 10/18/2022 8:35 AM EDT Get the xray. Get the ultrasound. Get labs. Start the doxycycline. Let us know if any recurrence of diarrhea. Start a probiotic. maintenance supervisor an [id number] if the prescription isn't covered. Short course of ibuprofen or naproxen to help with pain/inflammation. Schedule w/ podiatry. 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 Lita Abel APRN.WEB SOLUTIONS ARCHITECT documented in this encounter [facility] 09-18-2022 Miscellaneous Notes [facility] 07/05/22 NOV 01/05/23 Tawny Santos MA [...] Ebony Burnham Pss documented in this encounter [facility] 08-29-2022 Miscellaneous Notes Ropinirole 2 mg sent [...] Patricia Lacy Pss documented in this encounter [facility] 07-20-2022 History of Present illness Narrative POPULATION [...] 2022 11:16 AM documented in this encounter [facility] 07-12-2022 Miscellaneous Notes PDMP website checked and [...] Mamie Comer Pss documented in this encounter [facility] 2022 Miscellaneous Notes Patient returned call and [...] change to regimen. documented in this encounter [facility] 06-29-2022 Miscellaneous Notes Patient has been identified [...] advise. Jael Bass documented in this encounter [facility] 06-05-2022 History of Present illness Narrative Last [...] neuropathy (HCC) (I73.9) PAD (peripheral artery disease) ([facility]) Plan: Patient was seen and [...] last few days. documented in this encounter [facility] 06-05-2022 Instructions Rao Hillman - 06/05/2022 11:09 [...] (or decreased sensation in your feet) a chef de froid should always cut your toenails. Be Careful [...] Go to your health care provider or chef de froid to treat these conditions. documented in this encounter [facility] 06-01-2022 Miscellaneous Notes SRUTHI 05/24/22 NOV 07/05/22 [...] Tawny Whelan Pss documented in this encounter [facility] 05-24-2022 Instructions Audrey Packer APRN.EDENILSON - 05/24/2022 10:03 AM EST Update me in two weeks with BP readings documented in this encounter [facility] 05-24-2022 History of Present illness Narrative adv05/24/2022 [...] extremity numbness, tingling or weakness. [facility] [address] [place] [address] Test Date: 2022-05-05 Pat Name: JOSHUA NILAYSAUL Department: Room: Gender: Male Clerk Operator: : 1955 Requested By: Order Number: [id number] Reading MD: Alondra Swartz M.D. Interpretive Statements [...] 15:54:08 EST by Alondra Swartz M.D. ID: [id number] Name: JOSHUA ESTES Race: White Ht: 72.50 [...] 1.34 183 FIVC (L) 2.86 2.95 3 ITD55-35 (L/sec) 1.15 1.21 2.71 4.80 42 1.56 [...] less than the FVC maneuver. [facility] [address] [place] [address] Test Date: 2022-05-10 Pat Name: JOSHUA ESTES Department: Room: Gender: Male Clerk Operator: : 1955 Requested By: Order Number: [id number] Reading MD: Alondra Swartz M.D. Interpretive Statements All lung volume repeatability criteria met. IMPRESSION: The RV and RV/TLC are elevated indicating air trapping. The Lung volumes (FRC,ERV,RV) are in a pattern reflecting body habitus. Electronically Signed On 05-11-2022 16:00:44 EST by Alondra Swartz M.D. ID: [id number] Name: JOSHUA ESTES Race: White Ht: 72.50 [...] which included preparing to see the patient, [id number] patient care, completing clinical documentation, obtaining and/or reviewing separately obtained history, performing a medically appropriate examination, counseling and educating the patient/family/caregiver, and ordering medications, tests, or procedures. documented in this encounter [facility] 05-15-2022 Miscellaneous Notes Patient notified of below [...] Audrey Packer APRN.CNP documented in this encounter [facility] 05-10-2022 History of Present illness Narrative PULM FUNCTION SMARTBLOCK: Provider: Audrey Packer APRN.CNP Assisting Tech: GHASSAN Lopez LV - Box: 1 documented in this encounter [facility] 05-05-2022 History of Present illness Narrative PULM FUNCTION SMARTBLOCK: Provider: Audrey Packer APRN.CNP Assisting Tech: GHASSAN Lopez Spirometry w/BD: 1 documented in this encounter [facility] 05-01-2022 Instructions Audrey Packer APRN.EDENILSON - 05/01/2022 11:19 AM EST Increase fiber in diet documented in this encounter [facility] 05-01-2022 History of Present illness Narrative 05/01/2022 [...] Blood-Glucose Meter (TRUE METRIX AIR GLUCOSE METER) [facility] [place] 1 Device twice daily. Lancets lancets Test [...] which included preparing to see the patient, hevv-lw-[id number] patient care, completing clinical documentation, obtaining and/or reviewing separately obtained history, performing a medically appropriate examination, counseling and educating the patient/family/caregiver, and ordering medications, tests, or procedures. documented in this encounter [facility] 04-28-2022 Miscellaneous Notes SRUTHI: 02/22/22 with PCP [...] Patricia Lacy Pss documented in this encounter [facility] 04-20-2022 History of Present illness Narrative Radiology [...] TIME: 4:03 PM documented in this encounter [facility] 04-17-2022 Miscellaneous Notes Spoke with patient. Given [...] prior to CT scan? Patient's pharmacy is [facility]. Please review and advise, Amanda Hammer RN documented in this encounter [facility] 04-12-2022 Miscellaneous Notes Patient given results and verbalized understanding of instructions given. Liliane Rodriguez Please let patient know his fungal screen did come back positive for Jerri (yeast that causes thrush), continue the nystatin mouthwash. documented in this encounter [facility] 04-11-2022 Miscellaneous Notes C. Diff POSITIVE. Reached out and informed patient. J Luis called in. 2 remaining stool studies are pending. Discussed the contagiousness and treatment plan. He is to follow up with PCP. documented in this encounter [facility] 04-10-2022 History of Present illness Narrative Radiology [...] 2022 11:55 AM documented in this encounter [facility] 04-10-2022 History of Present illness Narrative HPI [...] electronic medical record. documented in this encounter [facility] 04-09-2022 Instructions Glendy Matos APRN.[facility] - 04/09/2022 12:52 PM EST DEFINITION: [...] for Pediatric Patients, 2nd edition, 1998 by [employer] Written by Olvin Pham MD, certified ophthalmic technologist and author of Your Child's Health, [employer], a book for parents. documented in this encounter [facility] 04-09-2022 History of Present illness Narrative This note was created using [employer]. Subjective Joshua Estes is a 66 year [...] history is provided by the patient. No checkroom chief was used. 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 Keep appointment with [...] little and hard to sit. Protocols used: [id number] documented in this encounter [facility] 03-15-2022 Miscellaneous Notes Pt scheduled in [place] with Rao Frey on Apr 10 TC [...] peer on scheduled CT Scan. Please call [phone]. Therese Lacy LPN documented in this encounter [facility] 03-09-2022 Miscellaneous Notes Pt notified and voiced [...] is behind his left eye and left muslim. Pt denies having a fever, phlegm, snot, or congestion. He reports he has been sleeping with a humidifier on and using a hot pack on his forehead at night. Please call and advise. documented in this encounter [facility] 03-09-2022 Miscellaneous Notes Patient has been identified [...] Liliane Thompson Pss documented in this encounter [facility] 03-03-2022 Miscellaneous Notes Patient has been identified [...] Jessica Soto RN documented in this encounter [facility] 03-01-2022 Miscellaneous Notes Agree. 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 Be Careful [...] Go to your health care provider or chef de froid to treat these conditions. documented in this encounter [facility] 02-16-2022 History of Present illness Narrative Last [...] Type 2 diabetes mellitus with peripheral neuropathy ([facility]) (I73.9) PAD (peripheral artery disease) ([facility]) Plan: Patient was seen and [...] Denies any pain. documented in this encounter [facility] 01-17-2022 Miscellaneous Notes Thanks for your help. [...] sure if patient has used voucher already. [facility] has a patient assistance program for Jardiance. Patient can apply to [facility] to see if eligible for assistance. Short term option for help if not eligible for voucher, would be to try [employer] in [facility] to see if they could assist with help for monthly cost until able to hear back from PAP. Sw left message for patient that SW will try call later on this afternoon. Patient calls back and notified that director social service consult was placed. Patient verbalizes understanding. Meaghan Fischer RN Patient telephoned, went to . Message left to call back for update. I have placed order for director social service to reach out to him to see [...] Meaghan Fischer RN documented in this encounter [facility] 01-16-[address] Sorto note 01/13/22 for Sw response to patient assistance need for Jardiance. documented in this encounter [facility] 01-04-2022 Miscellaneous Notes Glad to hear this [...] Audrey Packer APRN.CNP documented in this encounter [facility] 11-03-2021 Miscellaneous Notes Patient was notified Alondra [...] Dolores Sawyer LPN documented in this encounter [facility] 10-14-2021 Miscellaneous Notes PDMP website checked and validated. All prescriptions have been APPROPRIATELY filled. No suspicious activity was identified. 10/14/2021 by Audrey Packer APRN.WEB SOLUTIONS ARCHITECT SRUTHI: 08/15/2021 requip Last refill:07/18/2021 QTY: 90 [...] Tawny Whelan Pss documented in this encounter [facility] 10-13-2021 History of Present illness Narrative POPULATION [...] 2021 2:06 PM documented in this encounter [facility] 08-15-2021 History of Present illness Narrative Radiology [...] 2021 8:47 AM documented in this encounter [facility] 08-15-2021 History of Present illness Narrative 08/15/2021 Patient presents with: ED Follow-up: [facility] 08/09 for right lower back pain SUBJECTIVE: This is a 66 year old that is here today for Above Complaints. One week lifted a picnic table HOSPITAL/ER FOLLOW UP: Reason for visit: back pain Which facility: [facility] Date of visit: 08/09/2021 Diagnosis: low back [...] THERAPY - plan as above Audrey Packer APRN.WEB SOLUTIONS ARCHITECT Prescription instructions reviewed with patient as applicable. Patient advised if symptoms do not improve or if symptoms worsen sooner, to contact their primary care physician. Potential red flag symptoms discussed with the patient. Reviewed appropriate action plan to take if red flag symptoms occur. Patient agreeable to treatment plan. documented in this encounter [facility] 08-12-2021 Miscellaneous Notes If develop leg weakness, [...] he couldn't walk and went to [facility] ER. 2. LOCATION: Hurts R side lower [...] bring him to ER. Protocols used: BACK [id number] documented in this encounter [facility] 07-29-2021 History of Present illness Narrative Last [...] Diabetic Foot Care documented in this encounter [facility] 07-29-2021 Instructions Rao Hillman - 07/29/2021 3:06 [...] (or decreased sensation in your feet) a chef de froid should always cut your toenails. Be Careful [...] Go to your health care provider or chef de froid to treat these conditions. documented in this encounter [facility] 07-08-2021 Miscellaneous Notes Patient returned call and went over results, notes from Audrey Packer ORACLE IAM CONSULTANT with understanding. Aware rx to pharmacy. Patient said he will have to bead picker rx tomorrow pharmacy closes shortly today. [...] Audrey Packer APRN.EDENILSON documented in this encounter [facility] 07-04-2021 History of Present illness Narrative 07/04/2021 [...] 2 diabetes mellitus with microalbuminuria, unspecified whether mcc insulin use (HCC) - ICD9: 250.40, 791.0, ICD10: E11.29, R80.9 (primary diagnosis) Controlled. - Continue current medications - Blood glucose monitoring on a twice a day schedule - Encouraged regular aerobic exercise and weight loss - Follow up in 6 months, sooner should any other issues arise. - Discussed diabetic education issues of importance of appointments with [facility] with patient. - BP goal of <130/80 [...] to treatment plan. documented in this encounter [facility] 06-21-2021 Instructions Mary Carmen Jara APRN.CNP - [...] helpful. Additional information can be obtained at [email or web address].org/njki-bcuxhq-pcn ormation/early-detection 2) In many cases, skin cancer [...] health care provider. documented in this encounter [facility] 06-21-2021 History of Present illness Narrative Images [...] digits and nails Intake obtained by NOEMY aClhoun APRN.WEB SOLUTIONS ARCHITECT documented in this encounter [facility] 07-15-2020 History of Present illness Narrative Radiology [...] 2020 5:15 PM documented in this encounter [facility] 05-09-2017 History of Past i llness Narrative [...] of this encounter (statuses as of 06/27/2021) [facility] History of Past illness Narrative* Problem Noted [...] of this encounter (statuses as of 07/04/2021) [facility] History of Past illness Narrative* Problem Noted [...] of this encounter (statuses as of 07/08/2021) [facility] History of Past illness Narrative* Problem Noted [...] of this encounter (statuses as of 07/29/2021) [facility] History of Past illness Narrative* Problem Noted [...] of this encounter (statuses as of 08/12/2021) [facility] History of Past illness Narrative* Problem Noted [...] of this encounter (statuses as of 08/15/2021) [facility] History of Past illness Narrative* Problem Noted [...] of this encounter (statuses as of 10/13/2021) [facility] History of Past illness Narrative* Problem Noted [...] of this encounter (statuses as of 10/14/2021) [facility] History of Past illness Narrative* Problem Noted [...] of this encounter (statuses as of 11/03/2021) [facility] History of Past illness Narrative* Problem Noted [...] of this encounter (statuses as of 01/04/2022) [facility] History of Past illness Narrative* Problem Noted [...] of this encounter (statuses as of 01/16/2022) [facility] History of Past illness Narrative* Problem Noted [...] of this encounter (statuses as of 01/25/2022) [facility] History of Past illness Narrative* Problem Noted [...] of this encounter (statuses as of 02/17/2022) [facility] History of Past illness Narrative* Problem Noted [...] of this encounter (statuses as of 02/22/2022) [facility] History of Past illness Narrative* Problem Noted [...] of this encounter (statuses as of 03/01/2022) [facility] History of Past illness Narrative* Problem Noted Date Resolved Date 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, 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 OJSUÉ (acute kidney injury) 12/28/20152018 Overview: Creatinine elevated [...] of this encounter (statuses as of 03/03/2022) [facility] History of Past illness Narrative* Problem Noted [...] of this encounter (statuses as of 03/09/2022) [facility] History of Past illness Narrative* Problem Noted [...] of this encounter (statuses as of 03/09/2022) [facility] History of Past illness Narrative* Problem Noted [...] of this encounter (statuses as of 03/16/2022) [facility] History of Past illness Narrative* Problem Noted [...] of this encounter (statuses as of 04/06/2022) [facility] History of Past illness Narrative* Problem Noted [...] of this encounter (statuses as of 04/09/2022) [facility] History of Past illness Narrative* Problem Noted [...] of this encounter (statuses as of 04/10/2022) [facility] History of Past illness Narrative* Problem Noted [...] of this encounter (statuses as of 04/11/2022) [facility] History of Past illness Narrative* Problem Noted [...] of this encounter (statuses as of 04/12/2022) [facility] History of Past illness Narrative* Problem Noted [...] of this encounter (statuses as of 04/17/2022) [facility] History of Past illness Narrative* Problem Noted [...] of this encounter (statuses as of 04/28/2022) [facility] History of Past illness Narrative* Problem Noted [...] of this encounter (statuses as of 05/01/2022) [facility] History of Past illness Narrative* Problem Noted [...] of this encounter (statuses as of 05/05/2022) [facility] History of Past illness Narrative* Problem Noted [...] of this encounter (statuses as of 05/10/2022) [facility] History of Past illness Narrative* Problem Noted [...] of this encounter (statuses as of 05/15/2022) [facility] History of Past illness Narrative* Problem Noted [...] of this encounter (statuses as of 05/24/2022) [facility] History of Past illness Narrative* Problem Noted [...] of this encounter (statuses as of 06/02/2022) [facility] History of Past illness Narrative* Problem Noted [...] of this encounter (statuses as of 06/05/2022) [facility] History of Past illness Narrative* Problem Noted [...] of this encounter (statuses as of 06/29/2022) [facility] History of Past illness Narrative* Problem Noted [...] of this encounter (statuses as of 2022) [facility] History of Past illness Narrative* Problem Noted [...] of this encounter (statuses as of 07/13/2022) [facility] History of Past illness Narrative* Problem Noted [...] of this encounter (statuses as of 07/20/2022) [facility] History of Past illness Narrative* Problem Noted [...] of this encounter (statuses as of 08/29/2022) [facility] History of Past illness Narrative* Problem Noted [...] of this encounter (statuses as of 09/18/2022) [facility] History of Past illness Narrative* Problem Noted [...] of this encounter (statuses as of 10/18/2022) [facility] History of Past illness Narrative* Problem Noted [...] of this encounter (statuses as of 11/07/2022) [facility] History of Past illness Narrative* Problem Noted [...] of this encounter (statuses as of 11/08/2022) [facility] History of Past illness Narrative* Problem Noted [...] 12/21/2015 05/26/2018 Controlled type 2 diabetes m maruice with microalbuminuria, without long-term current use of [...] of this encounter (statuses as of 11/21/2022) [facility] History of Past illness Narrative* Problem Noted [...] of this encounter (statuses as of 11/21/2022) [facility] History of Past illness Narrative* Problem Noted [...] of this encounter (statuses as of 11/28/2022) [facility] History of Past illness Narrative* Problem Noted [...] microalbuminuria, without long-term current use of insulin ([facility]) 12/21/2015 05/29/2018 Overview: Home meds [...] of this encounter (statuses as of 01/06/2023) [facility] History of Past illness Narrative* Problem Noted [...] microalbuminuria, without long-term current use of insulin ([facility]) 12/21/2015 05/29/2018 Overview: Home meds [...] of this encounter (statuses as of 01/09/2023) [facility] History of Past illness Narrative* Problem Noted [...] of this encounter (statuses as of 02/04/2023) [facility] History of Past illness Narrative* Problem Noted [...] of this encounter (statuses as of 02/04/2023) [facility] History of Past illness Narrative* Problem Noted [...] microalbuminuria, without long-term current use of insulin ([facility]) 12/21/2015 05/29/2018 Overview: Home meds [...] of this encounter (statuses as of 02/07/2023) [facility] History of Past illness Narrative* Problem Noted [...] microalbuminuria, without long-term current use of insulin ([facility]) 12/21/2015 05/29/2018 Overview: Home meds [...] of this encounter (statuses as of 02/26/2023) [facility] History of Past illness Narrative* Problem Noted [...] microalbuminuria, without long-term current use of insulin ([facility]) 12/21/2015 05/29/2018 Overview: Home meds [...] of this encounter (statuses as of 05/07/2023) [facility] History of Past illness Narrative* Problem Noted [...] microalbuminuria, without long-term current use of insulin ([facility]) 12/21/2015 05/29/2018 Overview: Home meds [...] of this encounter (statuses as of 05/10/2023) [facility] History of Past illness Narrative* Problem Noted [...] microalbuminuria, without long-term current use of insulin ([facility]) 12/21/2015 05/29/2018 Overview: Home meds [...] of this encounter (statuses as of 05/10/2023) [facility] History of Past illness Narrative* Problem Noted [...] microalbuminuria, without long-term current use of insulin ([facility]) 12/21/2015 05/29/2018 Overview: Home meds [...] of this encounter (statuses as of 05/11/2023) [facility] History of Past illness Narrative* Problem Noted [...] microalbuminuria, without long-term current use of insulin ([facility]) 12/21/2015 05/29/2018 Overview: Home meds [...] of this encounter (statuses as of 05/19/2023) [facility] History of Past illness Narrative* Problem Noted [...] microalbuminuria, without long-term current use of insulin ([facility]) 12/21/2015 05/29/2018 Overview: Home meds [...] of this encounter (statuses as of 06/02/2023) [facility] History of Past illness Narrative* Problem Noted [...] microalbuminuria, without long-term current use of insulin ([facility]) 12/21/2015 05/29/2018 Overview: Home meds [...] of this encounter (statuses as of 07/05/2023) [facility] History of Past illness Narrative* Problem Noted [...] of this encounter (statuses as of 07/09/2023) [facility] Diagnosis Seborrheic keratosis- Primary Other seborrheic keratosis [facility] Diagnosis Type 2 diabetes mellitus with microalbuminuria, unspecified whether mcc insulin use (HCC)- Primary Essential hypertension, benign Restless leg syndrome Restless legs syndrome (RLS) Hyperlipidemia with target LDL less than 100 Other and unspecified hyperlipidemia [facility] Diagnosis Onychomycosis- Primary Dermatophytosis of nail Pain in toe of right foot Pain in limb Pain in toe of left foot Pain in limb Hyperkeratosis 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) [facility] Diagnosis Pain in right lumbar region of back- Primary Right groin pain Abdominal pain, right lower quadrant [facility] Diagnosis Type 2 diabetes mellitus with peripheral neuropathy (HCC) Restless leg syndrome Restless legs syndrome (RLS) [facility] Diagnosis Restless leg syndrome Restless legs syndrome (RLS) [facility] Diagnosis Hyperkalemia- Primary Hyperpotassemia [facility] Diagnosis Financial difficulty- Primary Inadequate material resources [facility] Diagnosis Onychomycosis- Primary Dermatophytosis of nail Pain in toe of right foot Pain in limb Pain in toe of left foot Pain in limb Hyperkeratosis 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) PAD (peripheral artery disease) (HCC) Peripheral vascular disease, unspecified [facility] Diagnosis Bacterial sinusitis- Primary Unspecified sinusitis (chronic) [facility] Diagnosis Hypertension, essential Unspecified essential hypertension Type 2 diabetes mellitus with microalbuminuria, unspecified whether mcc insulin use (HCC) [facility] Diagnosis Chronic sinusitis, unspecified location- Primary [facility] Diagnosis Type 2 diabetes mellitus with peripheral neuropathy (HCC) [facility] Diagnosis Chronic sinusitis, unspecified location- Primary [facility] Diagnosis Pharyngitis, unspecified etiology- Primary Diarrhea, unspecified type Sinus pressure Other diseases of nasal cavity and sinuses [facility] Diagnosis [place] headache- Primary Headache Chronic sinusitis, unspecified location Chronic cough Cough Sore throat Acute pharyngitis [facility] Diagnosis Anxiety- Primary Anxiety state, unspecified [facility] Diagnosis Chronic cough- Primary Cough C. difficile diarrhea Intestinal infection due to clostridium difficile Essential hypertension, benign [facility] Diagnosis Chronic cough Cough [facility] Diagnosis Abnormal pulmonary function test Nonspecific abnormal results of pulmonary system function study [facility] Diagnosis Abnormal pulmonary function test- Primary Nonspecific abnormal results of pulmonary system function study [facility] Diagnosis Cough, unspecified type- Primary Essential hypertension, benign Irregular heart beat Cardiac dysrhythmia, unspecified [facility] Diagnosis Restless leg syndrome Restless legs syndrome (RLS) [facility] Diagnosis Onychomycosis- Primary Dermatophytosis of nail Pain in toe of right foot Pain in limb Pain in toe of left foot Pain in limb Hyperkeratosis 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) PAD (peripheral artery disease) (HCC) Peripheral vascular disease, unspecified [facility] Diagnosis Restless leg syndrome Restless legs syndrome (RLS) [facility] Diagnosis Foot pain, right- Primary Pain in limb Cellulitis of skin Cellulitis and abscess of unspecified site Foot swelling Swelling of limb [facility] Diagnosis Right foot pain- Primary Pain in limb Charcot ankle, right Onychomycosis Dermatophytosis of nail Pain in toe of right foot Pain in limb Pain in toe of left foot Pain in limb Hyperkeratosis 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) PAD (peripheral artery disease) (HCC) Peripheral vascular disease, unspecified [facility] Diagnosis Decreased breath sounds at left lung base- Primary Chronic cough Cough Essential hypertension, benign Restless leg syndrome Restless legs syndrome (RLS) [facility] Diagnosis Right foot pain- Primary Pain in limb Type 2 diabetes mellitus with peripheral neuropathy (HCC) PAD (peripheral artery disease) (HCC) Peripheral vascular disease, unspecified [facility] Diagnosis Type 2 diabetes mellitus with peripheral neuropathy (HCC)- Primary Essential hypertension, benign Restless leg syndrome Restless legs syndrome (RLS) Hyperlipidemia with target LDL less than 100 Other and unspecified hyperlipidemia Peripheral arterial disease (HCC) Peripheral vascular disease, unspecified [facility] Diagnosis Type 2 diabetes [...] Persistent cough Cough [facility] Diagnosis Restrictive lung disease Other diseases of lung, not elsewhere classified Persistent cough Cough Restrictive lung disease- Primary Other diseases of lung, not elsewhere classified Persistent cough Cough [facility] Diagnosis Type 2 diabetes mellitus with peripheral neuropathy (HCC) [facility] Diagnosis History of environmental allergies- Primary Other allergy, other than to medicinal agents Restrictive lung disease Other diseases of lung, not elsewhere classified Mild intermittent asthma without complication Unspecified asthma Current smoker Tobacco use disorder Undiagnosed JOSE (obstructive sleep apnea) Obstructive sleep apnea (adult) (pediatric) [facility] Diagnosis Callus of foot- Primary Corns and callosities Diabetic polyneuropathy associated with diabetes mellitus due to underlying condition (HCC) Onychomycosis Dermatophytosis of nail Pain in toe of left foot Pain in limb Pain in toe of right foot Pain in limb [facility] Diagnosis Pre-operative examination- Primary Preoperative examination, [...] Corns and callosities [facility] Diagnosis Pre-operative examination- Primary Preoperative [...] smell and taste [facility] Diagnosis Pre-operative examination- Primary [...] weeks or longer [facility] Diagnosis Pre-operative examination- Primary [...] left lung base documented in this encounter [facility] note* Diagnosis Pre-operative examination- Primary Preoperative [...] sinusitis, unspecified location [facility] Diagnosis Pre-operative examination- Primary [...] right lower quadrant documented in this encounter [facility] note* Diagnosis Pre-operative examination- Primary Preoperative [...] and radiculitis, unspecified [facility] Diagnosis Pre-operative examination- Primary [...] or specific phobias [facility] Diagnosis Pre-operative examination- Primary [...] vascular disease, unspecified [facility] Diagnosis Pre-operative examination- Primary [...] both lower extremities [facility] Diagnosis Pre-operative examination- Primary [...] Hypercholesteremia Pure hypercholesterolemia [facility] Diagnosis Pre-operative examination- Primary [...] and respiratory abnormality [facility] Diagnosis Pre-operative examination- Primary [...] Essential hypertension, benign [facility] Diagnosis Pre-operative examination- Primary [...] both lower extremities [facility] Diagnosis Pre-operative examination- Primary [...] both lower extremities [facility] Diagnosis Pre-operative examination- Primary [...] legs syndrome (RLS) [facility] Diagnosis Pre-operative examination- Primary [...] of right ankle [facility] Diagnosis Pre-operative examination- Primary [...] of right ankle [facility] Diagnosis Pre-operative examination- Primary [...] both lower extremities documented in this encounter [facility] note* Diagnosis Pre-operative examination- Primary Preoperative [...] legs syndrome (RLS) documented in this encounter [facility] note* Diagnosis Pre-operative examination- Primary Preoperative [...] both lower extremities documented in this encounter [facility] note* Diagnosis Pre-operative examination- Primary Preoperative [...] legs syndrome (RLS) [facility] Diagnosis Pre-operative examination- Primary [...] legs syndrome (RLS) documented in this encounter [facility] note* Diagnosis Pre-operative examination- Primary Preoperative [...] legs syndrome (RLS) documented in this encounter [facility] note* Diagnosis Pre-operative examination- Primary Preoperative [...] peripheral neuropathy (HCC) documented in this encounter [facility] note* Diagnosis Pre-operative examination- Primary Preoperative [...] examination of blood [facility] Diagnosis Pre-operative examination- Primary [...] single bacterial disease documented in this encounter [facility] note* Diagnosis Pre-operative examination- Primary Preoperative [...] disease (HCC)- Primary documented in this encounter [facility] note* Diagnosis Pre-operative examination- Primary Preoperative [...] kidney disease (HCC) documented in this encounter [facility] note* Diagnosis Pre-operative examination- Primary Preoperative [...] Abnormal chest sounds [facility] Diagnosis Pre-operative examination- Primary [...] Abnormal chest sounds documented in this encounter [facility] note* Diagnosis Pre-operative examination- Primary Preoperative [...] Essential hypertension, benign documented in this encounter [facility] note* Diagnosis Pre-operative examination- Primary Preoperative [...] Essential hypertension, benign documented in this encounter [facility] note* Diagnosis Pre-operative examination- Primary Preoperative [...] legs syndrome (RLS) [facility] Diagnosis Pre-operative examination- Primary [...] abscess of face [facility] Diagnosis Pre-operative examination- Primary [...] Tobacco use disorder [facility] Diagnosis Pre-operative examination- Primary [...] unspecified laterality (HCC) documented in this encounter [facility] note* Diagnosis Pre-operative examination- Primary Preoperative [...] peripheral neuropathy (HCC) [facility] Diagnosis Pre-operative examination- Primary [...] somnolence Hypersomnia, unspecified documented in this encounter [facility] note* Diagnosis Pre-operative examination- Primary Preoperative [...] laterality (HCC)- Primary documented in this encounter [facility] note* Diagnosis Pre-operative examination- Primary Preoperative [...] examination of blood documented in this encounter [facility] note* Diagnosis Pre-operative examination- Primary Preoperative [...] somnolence Hypersomnia, unspecified documented in this encounter [facility] note* Diagnosis Pre-operative examination- Primary Preoperative [...] unspecified laterality (HCC) documented in this encounter [facility] note* Diagnosis Pre-operative examination- Primary Preoperative [...] this encounter [facility] for referral (narrative)* Outpatient Procedure (Routine) - Authorized Specialty Diagnoses / Procedures Referred By Kaitlyn t Referred To Contact [facility] Diagnoses Chronic cough Procedures SPIROMETRY - BASELINE AND POST DILATOR BRNCDILAT RSPSE SPMTRY PRE&POST-BRNCDILAT ADMN ChucklogAudrey kwan APRN.[employer]ECT [address] [place] [address] [facility] [place] [address] [place] [address] Referral ID Status Reason Start Date Expiration Date Visits Requested Visits Authorized [id number] Authorized Auto-Generat ed Referral 05/01/2022 05/31/2023 1 1 [facility] for referral (narrative)* Outpatient Procedure (Routine) - Closed Specialty Diagnoses / Procedures [facility] To [facility] Diagnoses Abnormal pulmonary function test Procedures LUNG VOLUMES PodlogAudrey kwan APRN.[employer] [address] [place] [address] [facility] [place] [address] [place] [id number] Referral ID Status Reason Start Date Expiration Date V isits Requested Visits Authorized [id number] Closed Auto-Generate d Referral 05/05/2022 06/04/2023 1 1 [facility] for referral (narrative)* Outpatient Procedure (Routine) - Closed Specialty Diagnoses / Procedures [facility] Referred [facility] Diagnoses Irregular heart beat Procedures ECG COMPLETE ECG ROUTINE ECG W/LEAST 12 LDS W/I&R PodlogAudrey kwan APRN.[employer] [address] [place] [address] [facility] [place] [address] [place] [id number] Referral ID Status Reason Start Date Expiration Date V isits Requested Visits Authorized [id number] Closed Auto-Generate d Referral 05/24/2022 05/24/2023 1 1 [facility] for referral (narrative)* Outpatient Procedure (Urgent) - Closed Specialty Diagnoses / Procedures Referred By Contac t Referred To [facility] Diagnoses Foot swelling Procedures US LEG VEIN DVT UNL VAS LAB DUP-SCAN XTR VEINS UNILATERAL/LIMITED STUDY Lita Abel APRN.[employer] [address] [place] [address] [facility] [place] [address] [place] [address] Referral ID Status Reason Start Date Expiration Date V isits Requested Visits Authorized [id number] Closed Auto-Generate d Referral 10/18/2022 10/18/2023 1 1 * Diagnostic Procedure Only (Urgent) - Pending Review Specialty Diagnoses / Procedures Referred By Contac t Referred To Contact US IMAGING Diagnoses Foot swelling Procedures US DVT LOWER RIGHT DUP-SCAN XTR VEINS UNILATERAL/LIMITED STUDY Lita Abel APRN.[employer] [address] [place] [address] [facility] Referral ID Status Reason Start Date Expiration Date Visits Requested Visits Authorized [id number] Pending Review Auto-Generat ed Referral 10/18/2022 11/17/2023 1 1 * Diagnostic Procedure Only (Urgent) - Closed Specialty Diagnoses / Procedures Referred By Contac t Referred To Contact XR IMAGING Diagnoses Foot pain, right Procedures XR FOOT GENERAL 3V AP/LAT/OBL RIGHT RADEX FOOT COMPLETE MINIMUM 3 VIEWS Lita Abel APRN.[employer] [address] [place] [address] Xr Imaging Referral ID Status Reason Start Date Expiration Date V isits Requested Visits Authorized [id number] Closed Auto-Generate d Referral 10/18/2022 11/17/2023 1 1 [facility] for referral (narrative)* Diagnostic Procedure Only (Routine) - Closed Specialty Diagnoses / Procedures Referred By Contac t Referred To Contact XR IMAGING Diagnoses Charcot ankle, right Procedures XR FOOT GENERAL 3V AP/LAT/OBL BILATERAL RADEX FOOT COMPLETE MINIMUM 3 VIEWS Rao Hillman [address] [place] [address] Xr Imaging Referral ID Status Reason Start Date Expiration Date V isits Requested Visits Authorized [id number] Closed Auto-Generate d Referral 11/07/2022 12/07/2023 1 1 [facility] for referral (narrative)* Diagnostic Procedure Only (Routine) - Closed Specialty Diagnoses / Procedures Referred By Contac t Referred To Contact XR IMAGING Diagnoses Charcot ankle, right Procedures XR FOOT GENERAL 3V AP/LAT/OBL BILATERAL RADEX FOOT COMPLETE MINIMUM 3 VIEWS Rao Hillman [address] [place] [address] [place] [address] Referral ID Status Reason Start Date Expiration Date V isits Requested Visits Authorized [id number] Closed Auto-Generate d Referral 11/07/2022 12/07/2023 1 1 [facility] for referral (narrative)* Diagnostic Procedure Only (Urgent) - Closed Specialty Diagnoses / Procedures Referred By Contac t Referred To Contact XR IMAGING Diagnoses Foot pain, right Procedures XR FOOT GENERAL 3V AP/LAT/OBL RIGHT RADEX FOOT COMPLETE MINIMUM 3 VIEWS Lita Abel APRN.[employer] [address] [place] [address] [place] [address] Referral ID Status Reason Start Date Expiration Date V isits Requested Visits Authorized [id number] Closed Auto-Generate d Referral 10/18/2022 11/17/2023 1 1 [facility] for referral (narrative)* Outpatient Procedure (Routine) - Pending Review Specialty Diagnoses / Procedures Referred By Contac t Referred To [facility] Diagnoses Bigeminy PAC (premature atrial contraction) Bradycardia Abnormal EKG Procedures ECHO ECHO TTHRC R-T 2D W/WOM-MODE COMPL SPEC&COLR D Tobi Sorto MD [address] [place] [address] [facility] [place] [address] [place] [id number] Referral ID Status Reason Start Date Expiration Date Visits Requested Visits Authorized [id number] Pending Review Auto-Generat ed Referral 08/10/2023 08/09/2024 1 1 * Consult, Test, Treat (Routine) - Pending Review Specialty Diagnoses / Procedures Referred By Contac t Referred To Contact Cardiology Diagnoses Bigeminy PAC (premature atrial contraction) Bradycardia Procedures CONSULT TO CARDIOLOGY OFFICE/OUTPATIENT [facility] 60 MINUTES Tobi Sorto MD [address] [place] [address] Referral ID Status Reason Start Date Expiration Date Visits Requested Visits Authorized [id number] Pending Review PCP Requested Referral 08/10/2023 08/09/2024 1 1 * Outpatient Procedure (Routine) - Pending Review Specialty Diagnoses / Procedures Referred By Kaitlyn murguia Referred To Contact [facility] Diagnoses Irregular heartbeat Procedures ECG COMPLETE ECG ROUTINE ECG W/LEAST 12 LDS W/I&R Tobi Sorto MD [address] [place] [address] [facility] [address] [address] Referral ID Status Reason Start Date Expiration Date Visits Requested Visits Authorized [id number] Pending Review Auto-Generat ed Referral 08/10/2023 08/09/2024 1 1 [facility] for referral (narrative)* Outpatient Procedure (Routine) - Authorized Specialty Diagnoses / Procedures Referred By Contac t Referred To Contact [facility] Diagnoses Persistent cough Procedures SPIROMETRY - BASELINE AND POST DILATOR BRNCDILAT RSPSE SPMTRY PRE&POST-BRNCDILAT ADMN Tobi Sorto MD [address] [place] [address] [address] Referral ID Status Reason Start Date Expiration Date Visits Requested Visits Authorized [id number] Authorized Auto-Generat ed Referral 08/17/2023 09/15/2024 1 1 [facility] for referral (narrative)* Outpatient Procedure (Routine) - Authorized Specialty Diagnoses / Procedures Referred By Contac t Referred To [facility] Diagnoses Restrictive lung disease Procedures LUNG VOLUMES Tobi Sorto MD [address] [place] [address] [address] Referral ID Status Reason Start Date Expiration Date Visits Requested Visits Authorized [id number] Authorized Auto-Generat ed Referral 08/28/2023 09/26/2024 1 1 [facility] for referral (narrative)* Outpatient Procedure (Routine) - Closed Specialty Diagnoses / Procedures Referred By Contac t Referred To [facility] Diagnoses Restrictive lung disease Persistent cough Procedures NITRIC OXIDE, EXHALED NITRIC OXIDE GAS DETERMINATION Tobi Sorto MD [address] [place] [address] [address] Referral ID Status Reason Start Date Expiration Date V isits Requested Visits Authorized [id number] Closed Auto-Generate d Referral 09/03/2023 10/02/2024 1 1 [facility] for referral (narrative)* Outpatient Procedure (Routine) - Authorized Specialty Diagnoses / Procedures Referred By Contac t Referred To [facility] Diagnoses Mild intermittent asthma without complication Procedures LUNG DIFFUSION CAPACITY (DLCO) DIFFUSING CAPACITY Alondra Broderick MD [address] [place] [address] [address] Referral ID Status Reason Start Date Expiration Date Visits Requested Visits Authorized [id number] Authorized Auto-Generat ed Referral 09/17/2023 10/16/2024 1 1 * Outpatient Procedure (Routine) - Authorized Specialty Diagnoses / Procedures Referred By Contac t Referred To Contact [facility] Diagnoses Mild intermittent asthma without complication Procedures LUNG VOLUMES Alondra Broderick MD [address] [place] [address] [facility] [address] [place] [address] Referral ID Status Reason Start Date Expiration Date Visits Requested Visits Authorized [id number] Authorized Auto-Generat ed Referral 09/17/2023 10/16/2024 1 1 [facility] for referral (narrative)* Diagnostic Procedure Only (Routine) - Closed Specialty Diagnoses / Procedures Referred By Contac t Referred To Contact XR IMAGING Diagnoses Pain in right lumbar region of back Right groin pain Procedures XR LUMBAR GENERAL 3V AP/LAT/L5-S1 RADEX SPINE LUMBOSACRAL 2/3 VIEWS Audrey Packer APRN.CNP [address] [place] [address] [place] [address] Referral ID Status Reason Start Date Expiration Date V isits Requested Visits Authorized [id number] Closed Auto-Generate d Referral 08/15/2021 09/14/2022 1 1 [facility] for referral (narrative)* Outpatient Procedure (Routine) - Pending Review Specialty Diagnoses / Procedures Referred By Contac t Referred To Contact [facility] Diagnoses Peripheral arterial disease (HCC) Procedures PVR ANK/GRULLON/TOE LUIS VAS LAB NON-INVAS PHYSIOLOGIC STD EXTREMITY ART 2 LEVEL Rolando Jean MD [address] [place] [address] [address] Referral ID Status Reason Start Date Expiration Date Visits Requested Visits Authorized [id number] Pending Review Auto-Generat ed Referral 01/09/2025 1 1 * Outpatient Procedure (Routine) - Pending Review Specialty Diagnoses / Procedures Referred By Contac t Referred To Contact [facility] Diagnoses Peripheral arterial disease (HCC) Procedures US LEG ARTERIAL PERIPH UNL VAS LAB DUP-SCAN LXTR ART/ARTL BPGS UNI/[place] [address] [place] [address] [address] Referral ID Status Reason Start Date Expiration Date Visits Requested Visits Authorized [id number] Pending Review Auto-Generat ed Referral 01/09/2025 1 1 [facility] for referral (narrative)* Diagnostic Procedure Only (Routine) - New Request Specialty Diagnoses / Procedures Referred By Contac t Referred To Contact [facility] Diagnoses Daytime somnolence Snoring Procedures HOME SLEEP APNEA TEST (HSAT) SLEEP STD AIRFLOW HRT RATE&O2 SAT EFFORT UNAAudrey Bassett APRN.CNP [address] [place] [address] [place] [address] Referral ID Status Reason Start Date Expiration Date Visits Requested Visits Authorized [id number] New Request Auto-Generat ed Referral 4 02/12/2025 1 1 [facility] for referral (narrative)* Diagnostic Procedure Only (Routine) - Closed Specialty Diagnoses / Procedures Referred By Contac t Referred To Contact XR IMAGING Diagnoses Chronic pain of right ankle Procedures XR ANKLE GENERAL 3V AP/LAT/OBL RIGHT RADEX ANKLE COMPLETE MINIMUM 3 VIEWS Rao Hillman [address] [address] [place] [address] Referral ID Status Reason Start Date Expiration Date V isits Requested Visits Authorized [id number] Closed Auto-Generate d Referral 03/10/2024 04/09/2025 1 1 [facility] for visit Narrative* Diagnostic Procedure Only (Routine) - Closed Specialty Diagnoses / Procedures Referred By Contac t Referred To Contact XR IMAGING Diagnoses Charcot ankle, right Procedures XR FOOT GENERAL 3V AP/LAT/OBL BILATERAL RADEX FOOT COMPLETE MINIMUM 3 VIEWS Rao Hillman [address] [place] [address] [place] [address] Referral ID Status Reason Start Date Expiration Date V isits Requested Visits Authorized [id number] Closed Auto-Generate d Referral 11/07/2022 12/07/2023 1 1 [facility] for visit Narrative* Diagnostic Procedure Only (Urgent) - Closed Specialty Diagnoses / Procedures Referred By Contac t Referred To Contact XR IMAGING Diagnoses Foot pain, right Procedures XR FOOT GENERAL 3V AP/LAT/OBL RIGHT RADEX FOOT COMPLETE MINIMUM 3 VIEWS Lita Abel, [employer] [address] [place] [address] [place] [address] Referral ID Status Reason Start Date Expiration Date V isits Requested Visits Authorized [id number] Closed Auto-Generate d Referral 10/18/2022 11/17/2023 1 1 [facility] for visit Narrative* Diagnostic Procedure Only (Routine) - Closed Specialty Diagnoses / Procedures Referred By Contac t Referred To Contact XR IMAGING Diagnoses Pain in right lumbar region of back Right groin pain Procedures XR LUMBAR GENERAL 3V AP/LAT/L5-S1 RADEX SPINE LUMBOSACRAL 2/3 VIEWS Audrey Packer [employer] [address] [place] [address] Xr Imaging [facility] Referral ID Status Reason Start Date Expiration Date V isits Requested Visits Authorized [id number] Closed Auto-Generate d Referral 08/15/2021 09/14/2022 1 1 [facility] for visit Narrative* Diagnostic Procedure Only (Routine) - Closed Specialty Diagnoses / Procedures Referred By Contac t Referred To Contact XR IMAGING Diagnoses Chronic pain of right ankle Procedures XR ANKLE GENERAL 3V AP/LAT/OBL RIGHT RADEX ANKLE COMPLETE MINIMUM 3 VIEWS Rao Hillman [address] [address] Xr Imaging [facility] Referral ID Status Reason Start Date Expiration Date V isits Requested Visits Authorized [id number] Closed Auto-Generate d Referral 03/10/2024 04/09/2025 1 1 [facility] for visit Narrative* Diagnostic Procedure Only (Routine) - Closed Specialty Diagnoses / Procedures Referred By Contac t Referred To Contact XR IMAGING Diagnoses Diabetic ulcer of toe associated with diabetes mellitus due to underlying condition, with fat layer exposed, unspecified laterality (HCC) Procedures XR FOOT GENERAL 3V AP/LAT/OBL LEFT RADEX FOOT COMPLETE MINIMUM 3 VIEWS Rao Hillman [address] [place] [address] Phone: tel: fax: XR [facility]AGING [place] [address] Referral ID Status Reason Start Date Expiration Date V isits Requested Visits Authorized [id number] Closed Auto-Generate d Referral 09/11/2024 10/11/2025 1 1 [facility] for visit Narrative* Diagnostic Procedure Only (Urgent) - Closed Specialty Diagnoses / Procedures Referred By Contact Referred [facility] Diagnoses Snoring Daytime somnolence Procedures HOME SLEEP APNEA TEST (HSAT) SLEEP STD AIRFLOW HRT RATE&O2 SAT EFFORT Tobi Orr MD [address] [place] [address] Phone: tel: fax: Neurology [address] [place] [id number] Phone: tel: Referral ID Status Reason Start Date Expiration Date V isits Requested Visits Authorized [id number] Closed Auto-Generate d Referral 09/04/2024 04/01/2025 1 1 [facility] Diagnostic Procedure Only (Urgent) - Closed Specialty Diagnoses / Procedures Referred By Contac t Referred To Contact XR IMAGING Diagnoses Diabetic ulcer of toe associated with diabetes mellitus due to underlying condition, with fat layer exposed, unspecified laterality (HCC) Procedures XR TOE AP/LAT/OBL LEFT RADEX TOE MINIMUM 2 VIEWS Rao Hillman [address] [place] [address] Phone: tel: fax: [place] [address] Referral ID Status Reason Start Date Expiration Date V isits Requested Visits Authorized [id number] Closed Auto-Generate d Referral 10/14/2024 11/13/2025 1 1 [facility] Summary Purpose Family History No Family History Records FoundNo Family History Records FoundNo Family History Records FoundNo Family History Records Found Advance Directives No Advanced Directives Records FoundDocuments on File Type Date Recorded 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 Advance Directive(s) 01/20/2019 9:18 AM [...] Documents on File Type Date Recorded 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 Advance Directive(s) 01/20/2019 9:18 AM [...] EVALUATION HIGH COMPLEX 45 MINS Podlogar, IRINEO Ventura.[employer] [address] [place] [address] [facility] [place] [address] [place] [address] Referral ID Status Reason Start Date Expiration Date Visits Requested Visits Authorized [id number] Authorized Auto-Generat ed Referral 08/22/2021 11/22/2021 1 1 Specialty Diagnoses / Procedures Referred By Contac t Referred To Contact XR IMAGING Diagnoses Pain in right lumbar region of back Right groin pain Procedures XR LUMBAR GENERAL 3V AP/LAT/L5-S1 RADEX SPINE LUMBOSACRAL 2/3 VIEWS Podlogar, IRINEO Ventura.[employer]CH[employer] [address] [place] [address] Xr Imaging Referral ID Status Reason Start Date Expiration Date V isits Requested Visits Authorized [id number] Closed Auto-Generate d Referral 08/15/2021 09/14/2022 1 1 Specialty Diagnoses / Procedures Referred By Contac t Referred To Contact CT IMAGING Diagnoses Chronic sinusitis, unspecified location Procedures CT SINUS WO IVCON CT MAXILLOFACIAL W/O CONTRAST MATERIAL Tobi Sorto MD [address] [place] [address] Ct Imaging Referral ID Status Reason Start Date Expiration Date Visits Requested Visits Authorized [id number] Pending Review Auto-Generat ed Referral 03/08/2022 04/07/2023 1 1 Specialty Diagnoses / Procedures Referred By Contac t Referred To Contact Ent - Otolaryngology Diagnoses Chronic sinusitis, unspecified location Procedures CONSULT TO ENT OFFICE/OUTPATIENT [facility] 60-74 MINUTES Tobi Sorto MD [address] [place] [address] Referral ID Status Reason Start Date Expiration Date Visits Requested Visits Authorized [id number] Authorized PCP Requested Referral 2 03/15/2023 1 1 Specialty Diagnoses / Procedures Referred By Contac t Referred To Contact CT IMAGING Diagnoses Thunderclap headache Procedures CTA HEAD WO/W IVCON CT ANGIOGRAPHY HEAD W/CONTRAST/NONCONTRAST Rao Frey MD [address] [address] [address] Imaging Referral ID Status Reason Start Date Expiration Date Visits Requested Visits Authorized [id number] Authorized Auto-Generat ed Referral 04/10/2022 05/10/2023 1 1 Specialty Diagnoses / Procedures Referred By Contac t Referred To Contact CT IMAGING Diagnoses Thunderclap headache Procedures CTA HEAD WO/W IVCON CT ANGIOGRAPHY HEAD W/CONTRAST/NONCONTRAST Rao Frey MD [address] [address] [place] [address] Referral ID Status Reason Start Date Expiration Date V isits Requested Visits Authorized [id number] Closed Auto-Generate d Referral 04/10/2022 05/10/2023 1 1 Specialty Diagnoses / Procedures Referred By Contac t Referred To Contact [facility] Diagnoses Restrictive lung disease Procedures CONSULT TO PULM/CRITICAL CARE OFFICE/OUTPATIENT [facility] 60 MINUTES Tobi Sorto MD [address] [place] [address] Referral ID Status Reason Start Date Expiration Date Visits Requested Visits Authorized [id number] Pending Review PCP Requested Referral 09/04/2023 09/03/2024 [...] and content) DATE CREATED AUTHOR 12/30/2018 [facility] DATE CREATED AUTHOR AUTHOR'S ORGANIZ ATION 09/03/2021 [facility] DATE CREATED AUTHOR AUTHOR'S ORGANIZ ATION 09/22/2023 [facility] DATE CREATED AUTHOR AUTHOR'S ORGANIZ ATION 10/17/2024 [facility] Source Comments (unrecognize d section and content) In the event this informatio n is protected by the Federal Confidentiality of Alcohol and Drug Abuse Patient Records regulations: The Federal rules restrict any use of the information to criminally investigate or prosecute any alcohol or drug abuse patient.[facility] the event this information is protected by the Federal Confidentiality of Alcohol and Drug Abuse Patient Records regulations: The Federal rules restrict any use of the information to criminally investigate or prosecute any alcohol or drug abuse patient.[facility] the event this information is protected by the Federal Confidentiality of Alcohol and Drug Abuse Patient Records regulations: The Federal rules restrict any use of the information to criminally investigate or prosecute any alcohol or drug abuse patient.[facility] the event this information is protected by the Federal Confidentiality of Alcohol and Drug Abuse Patient Records regulations: The Federal rules restrict any use of the information to criminally investigate or prosecute any alcohol or drug abuse patient.[facility]igh[facility] the event this information is protected by the Federal Confidentiality of Alcohol and Drug Abuse Patient Records regulations: The Federal rules restrict any use of the information to criminally investigate or prosecute any alcohol or drug abuse patient.[facility]igh[facility] the event this information is protected by the Federal Confidentiality of Alcohol and Drug Abuse Patient Records regulations: The Federal rules restrict any use of the information to criminally investigate or prosecute any alcohol or drug abuse patient.[facility]igh[facility] the event this information is protected by the Federal Confidentiality of Alcohol and Drug Abuse Patient Records regulations: The Federal rules restrict any use of the information to criminally investigate or prosecute any alcohol or drug abuse patient.[facility]igh[facility] the event this information is protected by the Federal Confidentiality of Alcohol and Drug Abuse Patient Records regulations: The Federal rules restrict any use of the information to criminally investigate or prosecute any alcohol or drug abuse patient.[facility]igh[facility] the event this information is protected by the Federal Confidentiality of Alcohol and Drug Abuse Patient Records regulations: The Federal rules restrict any use of the information to criminally investigate or prosecute any alcohol or drug abuse patient.[facility]igh[facility] the event this information is protected by the Federal Confidentiality of Alcohol and Drug Abuse Patient Records regulations: The Federal rules restrict any use of the information to criminally investigate or prosecute any alcohol or drug abuse patient.[facility]igh[facility] the event this information is protected by the Federal Confidentiality of Alcohol and Drug Abuse Patient Records regulations: The Federal rules restrict any use of the information to criminally investigate or prosecute any alcohol or drug abuse patient.[facility]igh[facility] the event this information is protected by the Federal Confidentiality of Alcohol and Drug Abuse Patient Records regulations: The Federal rules restrict any use of the information to criminally investigate or prosecute any alcohol or drug abuse patient.[facility]igh[facility] the event this information is protected by the Federal Confidentiality of Alcohol and Drug Abuse Patient Records regulations: The Federal rules restrict any use of the information to criminally investigate or prosecute any alcohol or drug abuse patient.[facility] the event this information is protected by the Federal Confidentiality of Alcohol and Drug Abuse Patient Records regulations: The Federal rules restrict any use of the information to criminally investigate or prosecute any alcohol or drug abuse patient.[facility]igh[facility] the event this information is protected by the Federal Confidentiality of Alcohol and Drug Abuse Patient Records regulations: The Federal rules restrict any use of the information to criminally investigate or prosecute any alcohol or drug abuse patient.[facility]igh[facility] the event this information is protected by the Federal Confidentiality of Alcohol and Drug Abuse Patient Records regulations: The Federal rules restrict any use of the information to criminally investigate or prosecute any alcohol or drug abuse patient.[facility]ighIn the event this information is protected by the Federal Confidentiality of Alcohol and Drug Abuse Patient Records regulations: The Federal rules restrict any use of the information to criminally investigate or prosecute any alcohol or drug abuse patient.[facility]ighIn the event this information is protected by the Federal Confidentiality of Alcohol and Drug Abuse Patient Records regulations: The Federal rules restrict any use of the information to criminally investigate or prosecute any alcohol or drug abuse patient.[facility]ighIn the event this information is protected by the Federal Confidentiality of Alcohol and Drug Abuse Patient Records regulations: The Federal rules restrict any use of the information to criminally investigate or prosecute any alcohol or drug abuse patient.[facility]ighIn the event this information is protected by the Federal Confidentiality of Alcohol and Drug Abuse Patient Records regulations: The Federal rules restrict any use of the information to criminally investigate or prosecute any alcohol or drug abuse patient.[facility]ighIn the event this information is protected by the Federal Confidentiality of Alcohol and Drug Abuse Patient Records regulations: The Federal rules restrict any use of the information to criminally investigate or prosecute any alcohol or drug abuse patient.[facility]ighIn the event this information is protected by the Federal Confidentiality of Alcohol and Drug Abuse Patient Records regulations: The Federal rules restrict any use of the information to criminally investigate or prosecute any alcohol or drug abuse patient.[facility]ighIn the event this information is protected by the Federal Confidentiality of Alcohol and Drug Abuse Patient Records regulations: The Federal rules restrict any use of the information to criminally investigate or prosecute any alcohol or drug abuse patient.[facility]ighIn the event this information is protected by the Federal Confidentiality of Alcohol and Drug Abuse Patient Records regulations: The Federal rules restrict any use of the information to criminally investigate or prosecute any alcohol or drug abuse patient.[facility]ighIn the event this information is protected by the Federal Confidentiality of Alcohol and Drug Abuse Patient Records regulations: The Federal rules restrict any use of the information to criminally investigate or prosecute any alcohol or drug abuse patient.[facility]ighIn the event this information is protected by the Federal Confidentiality of Alcohol and Drug Abuse Patient Records regulations: The Federal rules restrict any use of the information to criminally investigate or prosecute any alcohol or drug abuse patient.[facility]ighIn the event this information is protected by the Federal Confidentiality of Alcohol and Drug Abuse Patient Records regulations: The Federal rules restrict any use of the information to criminally investigate or prosecute any alcohol or drug abuse patient.[facility]ighIn the event this information is protected by the Federal Confidentiality of Alcohol and Drug Abuse Patient Records regulations: The Federal rules restrict any use of the information to criminally investigate or prosecute any alcohol or drug abuse patient.[facility]ighIn the event this information is protected by the Federal Confidentiality of Alcohol and Drug Abuse Patient Records regulations: The Federal rules restrict any use of the information to criminally investigate or prosecute any alcohol or drug abuse patient.[facility]ighIn the event this information is protected by the Federal Confidentiality of Alcohol and Drug Abuse Patient Records regulations: The Federal rules restrict any use of the information to criminally investigate or prosecute any alcohol or drug abuse patient.[facility]ighIn the event this information is protected by the Federal Confidentiality of Alcohol and Drug Abuse Patient Records regulations: The Federal rules restrict any use of the information to criminally investigate or prosecute any alcohol or drug abuse patient.[facility]ighIn the event this information is protected by the Federal Confidentiality of Alcohol and Drug Abuse Patient Records regulations: The Federal rules restrict any use of the information to criminally investigate or prosecute any alcohol or drug abuse patient.[facility]ighIn the event this information is protected by the Federal Confidentiality of Alcohol and Drug Abuse Patient Records regulations: The Federal rules restrict any use of the information to criminally investigate or prosecute any alcohol or drug abuse patient.[facility]ighIn the event this information is protected by the Federal Confidentiality of Alcohol and Drug Abuse Patient Records regulations: The Federal rules restrict any use of the information to criminally investigate or prosecute any alcohol or drug abuse patient.[facility]ighIn the event this information is protected by the Federal Confidentiality of Alcohol and Drug Abuse Patient Records regulations: The Federal rules restrict any use of the information to criminally investigate or prosecute any alcohol or drug abuse patient.[facility]ighIn the event this information is protected by the Federal Confidentiality of Alcohol and Drug Abuse Patient Records regulations: The Federal rules restrict any use of the information to criminally investigate or prosecute any alcohol or drug abuse patient.[facility]ighIn the event this information is protected by the Federal Confidentiality of Alcohol and Drug Abuse Patient Records regulations: The Federal rules restrict any use of the information to criminally investigate or prosecute any alcohol or drug abuse patient.[facility]ighIn the event this information is protected by the Federal Confidentiality of Alcohol and Drug Abuse Patient Records regulations: The Federal rules restrict any use of the information to criminally investigate or prosecute any alcohol or drug abuse patient.[facility]ighIn the event this information is protected by the Federal Confidentiality of Alcohol and Drug Abuse Patient Records regulations: The Federal rules restrict any use of the information to criminally investigate or prosecute any alcohol or drug abuse patient.[facility]ighIn the event this information is protected by the Federal Confidentiality of Alcohol and Drug Abuse Patient Records regulations: The Federal rules restrict any use of the information to criminally investigate or prosecute any alcohol or drug abuse patient.[facility]ighIn the event this information is protected by the Federal Confidentiality of Alcohol and Drug Abuse Patient Records regulations: The Federal rules restrict any use of the information to criminally investigate or prosecute any alcohol or drug abuse patient.[facility]ighIn the event this information is protected by the Federal Confidentiality of Alcohol and Drug Abuse Patient Records regulations: The Federal rules restrict any use of the information to criminally investigate or prosecute any alcohol or drug abuse patient.[facility]ighIn the event this information is protected by the Federal Confidentiality of Alcohol and Drug Abuse Patient Records regulations: The Federal rules restrict any use of the information to criminally investigate or prosecute any alcohol or drug abuse patient.[facility]ighIn the event this information is protected by the Federal Confidentiality of Alcohol and Drug Abuse Patient Records regulations: The Federal rules restrict any use of the information to criminally investigate or prosecute any alcohol or drug abuse patient.[facility]ighIn the event this information is protected by the Federal Confidentiality of Alcohol and Drug Abuse Patient Records regulations: The Federal rules restrict any use of the information to criminally investigate or prosecute any alcohol or drug abuse patient.[facility]ighIn the event this information is protected by the Federal Confidentiality of Alcohol and Drug Abuse Patient Records regulations: The Federal rules restrict any use of the information to criminally investigate or prosecute any alcohol or drug abuse patient.[facility]ighIn the event this information is protected by the Federal Confidentiality of Alcohol and Drug Abuse Patient Records regulations: The Federal rules restrict any use of the information to criminally investigate or prosecute any alcohol or drug abuse patient.[facility]ighIn the event this information is protected by the Federal Confidentiality of Alcohol and Drug Abuse Patient Records regulations: The Federal rules restrict any use of the information to criminally investigate or prosecute any alcohol or drug abuse patient.[facility]ighIn the event this information is protected by the Federal Confidentiality of Alcohol and Drug Abuse Patient Records regulations: The Federal rules restrict any use of the information to criminally investigate or prosecute any alcohol or drug abuse patient.[facility]ighIn the event this information is protected by the Federal Confidentiality of Alcohol and Drug Abuse Patient Records regulations: The Federal rules restrict any use of the information to criminally investigate or prosecute any alcohol or drug abuse patient.[facility]ighIn the event this information is protected by the Federal Confidentiality of Alcohol and Drug Abuse Patient Records regulations: The Federal rules restrict any use of the information to criminally investigate or prosecute any alcohol or drug abuse patient.[facility]ighIn the event this information is protected by the Federal Confidentiality of Alcohol and Drug Abuse Patient Records regulations: The Federal rules restrict any use of the information to criminally investigate or prosecute any alcohol or drug abuse patient.[facility]ighIn the event this information is protected by the Federal Confidentiality of Alcohol and Drug Abuse Patient Records regulations: The Federal rules restrict any use of the information to criminally investigate or prosecute any alcohol or drug abuse patient.[facility]ighIn the event this information is protected by the Federal Confidentiality of Alcohol and Drug Abuse Patient Records regulations: The Federal rules restrict any use of the information to criminally investigate or prosecute any alcohol or drug abuse patient.[facility]ighIn the event this information is protected by the Federal Confidentiality of Alcohol and Drug Abuse Patient Records regulations: The Federal rules restrict any use of the information to criminally investigate or prosecute any alcohol or drug abuse patient.[facility]ighIn the event this information is protected by the Federal Confidentiality of Alcohol and Drug Abuse Patient Records regulations: The Federal rules restrict any use of the information to criminally investigate or prosecute any alcohol or drug abuse patient.[facility]ighIn the event this information is protected by the Federal Confidentiality of Alcohol and Drug Abuse Patient Records regulations: The Federal rules restrict any use of the information to criminally investigate or prosecute any alcohol or drug abuse patient.[facility]ighIn the event this information is protected by the Federal Confidentiality of Alcohol and Drug Abuse Patient Records regulations: The Federal rules restrict any use of the information to criminally investigate or prosecute any alcohol or drug abuse patient.[facility]ighIn the event this information is protected by the Federal Confidentiality of Alcohol and Drug Abuse Patient Records regulations: The Federal rules restrict any use of the information to criminally investigate or prosecute any alcohol or drug abuse patient.[facility]ighIn the event this information is protected by the Federal Confidentiality of Alcohol and Drug Abuse Patient Records regulations: The Federal rules restrict any use of the information to criminally investigate or prosecute any alcohol or drug abuse patient.[facility]ighIn the event this information is protected by the Federal Confidentiality of Alcohol and Drug Abuse Patient Records regulations: The Federal rules restrict any use of the information to criminally investigate or prosecute any alcohol or drug abuse patient.[facility]ighIn the event this information is protected by the Federal Confidentiality of Alcohol and Drug Abuse Patient Records regulations: The Federal rules restrict any use of the information to criminally investigate or prosecute any alcohol or drug abuse patient.[facility]ighIn the event this information is protected by the Federal Confidentiality of Alcohol and Drug Abuse Patient Records regulations: The Federal rules restrict any use of the information to criminally investigate or prosecute any alcohol or drug abuse patient.[facility]ighIn the event this information is protected by the Federal Confidentiality of Alcohol and Drug Abuse Patient Records regulations: The Federal rules restrict any use of the information to criminally investigate or prosecute any alcohol or drug abuse patient.[facility]ighIn the event this information is protected by the Federal Confidentiality of Alcohol and Drug Abuse Patient Records regulations: The Federal rules restrict any use of the information to criminally investigate or prosecute any alcohol or drug abuse patient.[facility]ighIn the event this information is protected by the Federal Confidentiality of Alcohol and Drug Abuse Patient Records regulations: The Federal rules restrict any use of the information to criminally investigate or prosecute any alcohol or drug abuse patient.[facility]ighIn the event this information is protected by the Federal Confidentiality of Alcohol and Drug Abuse Patient Records regulations: The Federal rules restrict any use of the information to criminally investigate or prosecute any alcohol or drug abuse patient.[facility]ighIn the event this information is protected by the Federal Confidentiality of Alcohol and Drug Abuse Patient Records regulations: The Federal rules restrict any use of the information to criminally investigate or prosecute any alcohol or drug abuse patient.[facility]ighIn the event this information is protected by the Federal Confidentiality of Alcohol and Drug Abuse Patient Records regulations: The Federal rules restrict any use of the information to criminally investigate or prosecute any alcohol or drug abuse patient.[facility]ighIn the event this information is protected by the Federal Confidentiality of Alcohol and Drug Abuse Patient Records regulations: The Federal rules restrict any use of the information to criminally investigate or prosecute any alcohol or drug abuse patient.[facility]ighIn the event this information is protected by the Federal Confidentiality of Alcohol and Drug Abuse Patient Records regulations: The Federal rules restrict any use of the information to criminally investigate or prosecute any alcohol or drug abuse patient.[facility]ighIn the event this information is protected by the Federal Confidentiality of Alcohol and Drug Abuse Patient Records regulations: The Federal rules restrict any use of the information to criminally investigate or prosecute any alcohol or drug abuse patient.[facility]ighIn the event this information is protected by the Federal Confidentiality of Alcohol and Drug Abuse Patient Records regulations: The Federal rules restrict any use of the information to criminally investigate or prosecute any alcohol or drug abuse patient.[facility]ighIn the event this information is protected by the Federal Confidentiality of Alcohol and Drug Abuse Patient Records regulations: The Federal rules restrict any use of the information to criminally investigate or prosecute any alcohol or drug abuse patient.[facility]ighIn the event this information is protected by the Federal Confidentiality of Alcohol and Drug Abuse Patient Records regulations: The Federal rules restrict any use of the information to criminally investigate or prosecute any alcohol or drug abuse patient.[facility]ighIn the event this information is protected by the Federal Confidentiality of Alcohol and Drug Abuse Patient Records regulations: The Federal rules restrict any use of the information to criminally investigate or prosecute any alcohol or drug abuse patient.[facility]ighIn the event this information is protected by the Federal Confidentiality of Alcohol and Drug Abuse Patient Records regulations: The Federal rules restrict any use of the information to criminally investigate or prosecute any alcohol or drug abuse patient.[facility]ighIn the event this information is protected by the Federal Confidentiality of Alcohol and Drug Abuse Patient Records regulations: The Federal rules restrict any use of the information to criminally investigate or prosecute any alcohol or drug abuse patient.[facility]ighIn the event this information is protected by the Federal Confidentiality of Alcohol and Drug Abuse Patient Records regulations: The Federal rules restrict any use of the information to criminally investigate or prosecute any alcohol or drug abuse patient.[facility]ighIn the event this information is protected by the Federal Confidentiality of Alcohol and Drug Abuse Patient Records regulations: The Federal rules restrict any use of the information to criminally investigate or prosecute any alcohol or drug abuse patient.[facility]ighIn the event this information is protected by the Federal Confidentiality of Alcohol and Drug Abuse Patient Records regulations: The Federal rules restrict any use of the information to criminally investigate or prosecute any alcohol or drug abuse patient.[facility]ighIn the event this information is protected by the Federal Confidentiality of Alcohol and Drug Abuse Patient Records regulations: The Federal rules restrict any use of the information to criminally investigate or prosecute any alcohol or drug abuse patient.[facility]ighIn the event this information is protected by the Federal Confidentiality of Alcohol and Drug Abuse Patient Records regulations: The Federal rules restrict any use of the information to criminally investigate or prosecute any alcohol or drug abuse patient.[facility]ighIn the event this information is protected by the Federal Confidentiality of Alcohol and Drug Abuse Patient Records regulations: The Federal rules restrict any use of the information to criminally investigate or prosecute any alcohol or drug abuse patient.[facility]ighIn the event this information is protected by the Federal Confidentiality of Alcohol and Drug Abuse Patient Records regulations: The Federal rules restrict any use of the information to criminally investigate or prosecute any alcohol or drug abuse patient.[facility]ighIn the event this information is protected by the Federal Confidentiality of Alcohol and Drug Abuse Patient Records regulations: The Federal rules restrict any use of the information to criminally investigate or prosecute any alcohol or drug abuse patient.[facility]ighIn the event this information is protected by the Federal Confidentiality of Alcohol and Drug Abuse Patient Records regulations: The Federal rules restrict any use of the information to criminally investigate or prosecute any alcohol or drug abuse patient.[facility]ighIn the event this information is protected by the Federal Confidentiality of Alcohol and Drug Abuse Patient Records regulations: The Federal rules restrict any use of the information to criminally investigate or prosecute any alcohol or drug abuse patient.[facility]ighIn the event this information is protected by the Federal Confidentiality of Alcohol and Drug Abuse Patient Records regulations: The Federal rules restrict any use of the information to criminally investigate or prosecute any alcohol or drug abuse patient.[facility]ighIn the event this information is protected by the Federal Confidentiality of Alcohol and Drug Abuse Patient Records regulations: The Federal rules restrict any use of the information to criminally investigate or prosecute any alcohol or drug abuse patient.[facility]ighIn the event this information is protected by the Federal Confidentiality of Alcohol and Drug Abuse Patient Records regulations: The Federal rules restrict any use of the information to criminally investigate or prosecute any alcohol or drug abuse patient.[facility]ighIn the event this information is protected by the Federal Confidentiality of Alcohol and Drug Abuse Patient Records regulations: The Federal rules restrict any use of the information to criminally investigate or prosecute any alcohol or drug abuse patient.[facility]ighIn the event this information is protected by the Federal Confidentiality of Alcohol and Drug Abuse Patient Records regulations: The Federal rules restrict any use of the information to criminally investigate or prosecute any alcohol or drug abuse patient.[facility]ighIn the event this information is protected by the Federal Confidentiality of Alcohol and Drug Abuse Patient Records regulations: The Federal rules restrict any use of the information to criminally investigate or prosecute any alcohol or drug abuse patient.[facility]ighIn the event this information is protected by the Federal Confidentiality of Alcohol and Drug Abuse Patient Records regulations: The Federal rules restrict any use of the information to criminally investigate or prosecute any alcohol or drug abuse patient.[facility]ighIn the event this information is protected by the Federal Confidentiality of Alcohol and Drug Abuse Patient Records regulations: The Federal rules restrict any use of the information to criminally investigate or prosecute any alcohol or drug abuse patient.[facility]ighIn the event this information is protected by the Federal Confidentiality of Alcohol and Drug Abuse Patient Records regulations: The Federal rules restrict any use of the information to criminally investigate or prosecute any alcohol or drug abuse patient.[facility]ighIn the event this information is protected by the Federal Confidentiality of Alcohol and Drug Abuse Patient Records regulations: The Federal rules restrict any use of the information to criminally investigate or prosecute any alcohol or drug abuse patient.[facility]ighIn the event this information is protected by the Federal Confidentiality of Alcohol and Drug Abuse Patient Records regulations: The Federal rules restrict any use of the information to criminally investigate or prosecute any alcohol or drug abuse patient.[facility]ighIn the event this information is protected by the Federal Confidentiality of Alcohol and Drug Abuse Patient Records regulations: The Federal rules restrict any use of the information to criminally investigate or prosecute any alcohol or drug abuse patient.[facility]ighIn the event this information is protected by the Federal Confidentiality of Alcohol and Drug Abuse Patient Records regulations: The Federal rules restrict any use of the information to criminally investigate or prosecute any alcohol or drug abuse patient.[facility]ighIn the event this information is protected by the Federal Confidentiality of Alcohol and Drug Abuse Patient Records regulations: The Federal rules restrict any use of the information to criminally investigate or prosecute any alcohol or drug abuse patient.[facility]ighIn the event this information is protected by the Federal Confidentiality of Alcohol and Drug Abuse Patient Records regulations: The Federal rules restrict any use of the information to criminally investigate or prosecute any alcohol or drug abuse patient.[facility]ighIn the event this information is protected by the Federal Confidentiality of Alcohol and Drug Abuse Patient Records regulations: The Federal rules restrict any use of the information to criminally investigate or prosecute any alcohol or drug abuse patient.[facility]In the event this information is protected by the Federal Confidentiality of Alcohol and Drug Abuse Patient Records regulations: The Federal rules restrict any use of the information to criminally investigate or prosecute any alcohol or drug abuse patient.[facility]ighIn the event this information is protected by the Federal Confidentiality of Alcohol and Drug Abuse Patient Records regulations: The Federal rules restrict any use of the information to criminally investigate or prosecute any alcohol or drug abuse patient.[facility]ighIn the event this information is protected by the Federal Confidentiality of Alcohol and Drug Abuse Patient Records regulations: The Federal rules restrict any use of the information to criminally investigate or prosecute any alcohol or drug abuse patient.[facility]ighIn the event this information is protected by the Federal Confidentiality of Alcohol and Drug Abuse Patient Records regulations: The Federal rules restrict any use of the information to criminally investigate or prosecute any alcohol or drug abuse patient.[facility]ighIn the event this information is protected by the Federal Confidentiality of Alcohol and Drug Abuse Patient Records regulations: The Federal rules restrict any use of the information to criminally investigate or prosecute any alcohol or drug abuse patient.[facility]ighIn the event this information is protected by the Federal Confidentiality of Alcohol and Drug Abuse Patient Records regulations: The Federal rules restrict any use of the information to criminally investigate or prosecute any alcohol or drug abuse patient.[facility]ighIn the event this information is protected by the Federal Confidentiality of Alcohol and Drug Abuse Patient Records regulations: The Federal rules restrict any use of the information to criminally investigate or prosecute any alcohol or drug abuse patient.[facility]ighIn the event this information is protected by the Federal Confidentiality of Alcohol and Drug Abuse Patient Records regulations: The Federal rules restrict any use of the information to criminally investigate or prosecute any alcohol or drug abuse patient.[facility]ighIn the event this information is protected by the Federal Confidentiality of Alcohol and Drug Abuse Patient Records regulations: The Federal rules restrict any use of the information to criminally investigate or prosecute any alcohol or drug abuse patient.[facility]ighIn the event this information is protected by the Federal Confidentiality of Alcohol and Drug Abuse Patient Records regulations: The Federal rules restrict any use of the information to criminally investigate or prosecute any alcohol or drug abuse patient.[facility]ighIn the event this information is protected by the Federal Confidentiality of Alcohol and Drug Abuse Patient Records regulations: The Federal rules restrict any use of the information to criminally investigate or prosecute any alcohol or drug abuse patient.[facility]ighIn the event this information is protected by the Federal Confidentiality of Alcohol and Drug Abuse Patient Records regulations: The Federal rules restrict any use of the information to criminally investigate or prosecute any alcohol or drug abuse patient.[facility]ighIn the event this information is protected by the Federal Confidentiality of Alcohol and Drug Abuse Patient Records regulations: The Federal rules restrict any use of the information to criminally investigate or prosecute any alcohol or drug abuse patient.[facility]ighIn the event this information is protected by the Federal Confidentiality of Alcohol and Drug Abuse Patient Records regulations: The Federal rules restrict any use of the information to criminally investigate or prosecute any alcohol or drug abuse patient.[facility]ighIn the event this information is protected by the Federal Confidentiality of Alcohol and Drug Abuse Patient Records regulations: The Federal rules restrict any use of the information to criminally investigate or prosecute any alcohol or drug abuse patient.[facility]ighIn the event this information is protected by the Federal Confidentiality of Alcohol and Drug Abuse Patient Records regulations: The Federal rules restrict any use of the information to criminally investigate or prosecute any alcohol or drug abuse patient.[facility]ighIn the event this information is protected by the Federal Confidentiality of Alcohol and Drug Abuse Patient Records regulations: The Federal rules restrict any use of the information to criminally investigate or prosecute any alcohol or drug abuse patient.[facility]ighIn the event this information is protected by the Federal Confidentiality of Alcohol and Drug Abuse Patient Records regulations: The Federal rules restrict any use of the information to criminally investigate or prosecute any alcohol or drug abuse patient.[facility]ighIn the event this information is protected by the Federal Confidentiality of Alcohol and Drug Abuse Patient Records regulations: The Federal rules restrict any use of the information to criminally investigate or prosecute any alcohol or drug abuse patient.[facility]ighIn the event this information is protected by the Federal Confidentiality of Alcohol and Drug Abuse Patient Records regulations: The Federal rules restrict any use of the information to criminally investigate or prosecute any alcohol or drug abuse patient.[facility]ighIn the event this information is protected by the Federal Confidentiality of Alcohol and Drug Abuse Patient Records regulations: The Federal rules restrict any use of the information to criminally investigate or prosecute any alcohol or drug abuse patient.[facility]ighIn the event this information is protected by the Federal Confidentiality of Alcohol and Drug Abuse Patient Records regulations: The Federal rules restrict any use of the information to criminally investigate or prosecute any alcohol or drug abuse patient.[facility]ighIn the event this information is protected by the Federal Confidentiality of Alcohol and Drug Abuse Patient Records regulations: The Federal rules restrict any use of the information to criminally investigate or prosecute any alcohol or drug abuse patient.[facility]ighIn the event this information is protected by the Federal Confidentiality of Alcohol and Drug Abuse Patient Records regulations: The Federal rules restrict any use of the information to criminally investigate or prosecute any alcohol or drug abuse patient.[facility]ighIn the event this information is protected by the Federal Confidentiality of Alcohol and Drug Abuse Patient Records regulations: The Federal rules restrict any use of the information to criminally investigate or prosecute any alcohol or drug abuse patient.[facility]ighIn the event this information is protected by the Federal Confidentiality of Alcohol and Drug Abuse Patient Records regulations: The Federal rules restrict any use of the information to criminally investigate or prosecute any alcohol or drug abuse patient.[facility]ighIn the event this information is protected by the Federal Confidentiality of Alcohol and Drug Abuse Patient Records regulations: The Federal rules restrict any use of the information to criminally investigate or prosecute any alcohol or drug abuse patient.[facility]ighIn the event this information is protected by the Federal Confidentiality of Alcohol and Drug Abuse Patient Records regulations: The Federal rules restrict any use of the information to criminally investigate or prosecute any alcohol or drug abuse patient.[facility]ighIn the event this information is protected by the Federal Confidentiality of Alcohol and Drug Abuse Patient Records regulations: The Federal rules restrict any use of the information to criminally investigate or prosecute any alcohol or drug abuse patient.[facility]ighIn the event this information is protected by the Federal Confidentiality of Alcohol and Drug Abuse Patient Records regulations: The Federal rules restrict any use of the information to criminally investigate or prosecute any alcohol or drug abuse patient.[facility]ighIn the event this information is protected by the Federal Confidentiality of Alcohol and Drug Abuse Patient Records regulations: The Federal rules restrict any use of the information to criminally investigate or prosecute any alcohol or drug abuse patient.[facility]ighIn the event this information is protected by the Federal Confidentiality of Alcohol and Drug Abuse Patient Records regulations: The Federal rules restrict any use of the information to criminally investigate or prosecute any alcohol or drug abuse patient.[facility]ighIn the event this information is protected by the Federal Confidentiality of Alcohol and Drug Abuse Patient Records regulations: The Federal rules restrict any use of the information to criminally investigate or prosecute any alcohol or drug abuse patient.[facility]ighIn the event this information is protected by the Federal Confidentiality of Alcohol and Drug Abuse Patient Records regulations: The Federal rules restrict any use of the information to criminally investigate or prosecute any alcohol or drug abuse patient.[facility]ighIn the event this information is protected by the Federal Confidentiality of Alcohol and Drug Abuse Patient Records regulations: The Federal rules restrict any use of the information to criminally investigate or prosecute any alcohol or drug abuse patient.[facility]ighIn the event this information is protected by the Federal Confidentiality of Alcohol and Drug Abuse Patient Records regulations: The Federal rules restrict any use of the information to criminally investigate or prosecute any alcohol or drug abuse patient.[facility]ighIn the event this information is protected by the Federal Confidentiality of Alcohol and Drug Abuse Patient Records regulations: The Federal rules restrict any use of the information to criminally investigate or prosecute any alcohol or drug abuse patient.[facility]ighIn the event this information is protected by the Federal Confidentiality of Alcohol and Drug Abuse Patient Records regulations: The Federal rules restrict any use of the information to criminally investigate or prosecute any alcohol or drug abuse patient.[facility]ighIn the event this information is protected by the Federal Confidentiality of Alcohol and Drug Abuse Patient Records regulations: The Federal rules restrict any use of the information to criminally investigate or prosecute any alcohol or drug abuse patient.[facility]ighIn the event this information is protected by the Federal Confidentiality of Alcohol and Drug Abuse Patient Records regulations: The Federal rules restrict any use of the information to criminally investigate or prosecute any alcohol or drug abuse patient.[facility]ighIn the event this information is protected by the Federal Confidentiality of Alcohol and Drug Abuse Patient Records regulations: The Federal rules restrict any use of the information to criminally investigate or prosecute any alcohol or drug abuse patient.[facility]ighIn the event this information is protected by the Federal Confidentiality of Alcohol and Drug Abuse Patient Records regulations: The Federal rules restrict any use of the information to criminally investigate or prosecute any alcohol or drug abuse patient.[facility]ighIn the event this information is protected by the Federal Confidentiality of Alcohol and Drug Abuse Patient Records regulations: The Federal rules restrict any use of the information to criminally investigate or prosecute any alcohol or drug abuse patient.[facility]ighIn the event this information is protected by the Federal Confidentiality of Alcohol and Drug Abuse Patient Records regulations: The Federal rules restrict any use of the information to criminally investigate or prosecute any alcohol or drug abuse patient.[facility]ighIn the event this information is protected by the Federal Confidentiality of Alcohol and Drug Abuse Patient Records regulations: The Federal rules restrict any use of the information to criminally investigate or prosecute any alcohol or drug abuse patient.[facility]ighIn the event this information is protected by the Federal Confidentiality of Alcohol and Drug Abuse Patient Records regulations: The Federal rules restrict any use of the information to criminally investigate or prosecute any alcohol or drug abuse patient.[facility] Reason for Visit (unrecogniz ed section and [...] DIAB Rao Hillman [address] [place] [address] Rao Hillman [address] [place] [address] Referral ID Status Reason Start Date Expiration Date Visits Re quested Visits Authorized [id number] Closed 05/24/2023 04/01/2024 2 2 Reason Comments LESION, SKIN Reason Comments F/U 3 Month Pain right leg pain Reason Comments Other Worsening A1C, addin g medication Reason Comments Established Patient Diabetic Foot Care Reason Comments Back Pain Reason Comments ED Follow-up 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 [address] [place] [id number] Res[facility] [place] [address] [place] [address] Referral ID Status Reason Start Date Expiration Date V isits Requested Visits Authorized [id number] Closed Auto-Generate d Referral 05/01/2022 05/31/2023 1 1 Specialty Diagnoses / Procedures Referred By [facility] Referred To Contact [facility] Diagnoses Abnormal pulmonary function test Procedures LUNG VOLUMES Podlogar, Audrey, HAT LINING BLOCKER.[employer]B [employer]UTIONS ARCHITECT [address] [place] [address] Respiratory [place] [address] [place] [address] Referral ID Status Reason Start Date Expiration Date V isits Requested Visits Authorized [id number] Closed Auto-Generate d Referral 05/05/2022 06/04/2023 1 [...] HEAD W/CONTRAST/NONCONTRAST Rao Frey MD [address] [address] [place] [address] Referral ID Status Reason Start Date Expiration Date V isits Requested Visits Authorized [id number] Closed Auto-Generate d Referral 04/10/2022 05/10/2023 1 1 Reason Onset Date Comments Refill Request 02/26/2023 Reason Comments Med Change Request Reason Comments Established Patient Follow Up Diabetic Foot Ulcer Pain Specialty Diagnoses / Procedures Referred By Kaitlyn t Referred To Contact Podiatry / PODIATRY Diagnoses AETNA MEDICARE / A[employer] MEDICARE HMO Procedures WOODY EST PODI Rao Hillman [address] [place] [address] Rao Hillman [address] [place] [address] Referral ID Status Reason Start Date Expiration Date Visits Re quested Visits Authorized [id number] Closed 05/10/2023 04/01/2024 1 1 Reason Onset Date Comments Refill Request 04/09/2023 see rx notes Reason Comments Sinus Problem Nasal congestion and cough x2 weeks Reason Comments 6 mo follow up Reason Comments Follow Up Established Patient Callous Referral ID Status Reason Start Date Expiration Date Visits Re quested Visits Authorized [id number] Closed 05/24/2023 04/01/2024 1 1 Reason Onset Date Comments Refill Request 08/06/2023 Reason Comments Cough Cough lingering and keeps patient up at HS Reason Onset Date Comments Refill Request 08/13/2023 Specialty Diagnoses / Procedures Referred By Contac t Referred To Contact [facility] Diagnoses Persistent cough Procedures SPIROMETRY - BASELINE AND POST DILATOR BRNCDILAT RSPSE SPMTRY PRE&POST-BRNCDILAT ADMTobi Vuong MD [address] [place] [address] [address] Referral ID Status Reason Start Date Expiration Date V isits Requested Visits Authorized [id number] Closed Auto-Generate d Referral 08/17/2023 09/15/2024 1 1 Specialty Diagnoses / Procedures Referred By Contac t Referred To Contact [facility] Diagnoses Restrictive lung disease Persistent cough Procedures NITRIC OXIDE, EXHALED NITRIC OXIDE GAS DETERMINATION Tobi Sorto MD [address] [place] [address] [address] Referral ID Status Reason Start Date Expiration Date V isits Requested Visits Authorized [id number] Closed Auto-Generate d Referral 09/03/2023 10/02/2024 1 [...] Procedures CONSULT TO PULM/CRITICAL CARE OFFICE/OUTPATIENT [facility] 60 MINUTES Tobi Sorto MD [address] [place] [address] [facility] [address] [place] [address] Referral ID Status Reason Start Date Expiration Date V isits Requested Visits Authorized [id number] Closed PCP Requested Referral 09/10/2023 04/01/2024 1 [...] TIME W/IMAGE COMPLETE Tobi Sorto MD [address] [place] [address] Phone: tel: fax: [place] [address] Referral ID Status Reason Start Date Expiration Date V isits Requested Visits Authorized [id number] Closed Auto-Generate d Referral 07/09/2024 08/08/2025 1 [...] Care Teams (unrecognized sec tion and content) Caul Dresser Relationship Specialty Start Date End Date Tobi Sorto MD [address] [facility] [address] PCP - General Family Practice 08/22/18 Caul Dresser Relationship Specialty Start Date End Date Tobi Sorto MD [address] [facility] [address] PCP - General Family Practice 08/22/18 Caul Dresser Relationship Specialty Start Date End Date Tobi Sorto MD [address] [facility] [address] PCP - General Family Practice 08/22/18 Caul Dresser Relationship Specialty Start Date End Date Tobi Sorto MD [address] [facility] [address] PCP - General Family Practice 08/22/18 Caul Dresser Relationship Specialty Start Date End Date Tobi Sorto MD [address] [facility] [address] PCP - General Family Practice 08/22/18 Caul Dresser Relationship Specialty Start Date End Date Tobi Sorto MD [address] [facility] [address] PCP - General Family Practice 08/22/18 Caul Dresser Relationship Specialty Start Date End Date Tobi Sorto MD [address] [facility] [address] PCP - General Family Medicine 08/22/18 Caul Dresser Relationship Specialty Start Date End Date Tobi Sorto MD [address] [facility] [address] PCP - General Family Medicine 08/22/18 Caul Dresser Relationship Specialty Start Date End Date Tobi Sorto MD [address] [facility] [address] PCP - General Family Medicine 08/22/18 Caul Dresser Relationship Specialty Start Date End Date Tobi Sorto MD [address] [place] [address] PCP - General Family Medicine 08/22/18 Caul Dresser Relationship Specialty Start Date End Date Tobi Sorto MD [address] [facility] [address] PCP - General Family Medicine 08/22/18 Caul Dresser Relationship Specialty Start Date End Date Tobi Sorto MD [address] [facility] [address] PCP - General Family Medicine 08/22/18 Caul Dresser Relationship Specialty Start Date End Date Tobi Sorto MD [address] [facility] [address] PCP - General Family Medicine 08/22/18 Caul Dresser Relationship Specialty Start Date End Date Tobi Sorto MD [address] [place] [address] PCP - General Family Medicine 08/22/18 Caul Dresser Relationship Specialty Start Date End Date Tobi Sorto MD [address] [place] [address] PCP - General Family Medicine 08/22/18 Caul Dresser Relationship Specialty Start Date End Date Tobi Sorto MD [address] [place] [address] PCP - General Family Medicine 08/22/18 Caul Dresser Relationship Specialty Start Date End Date Tobi Sorto MD [address] [place] [address] PCP - General Family Medicine 08/22/18 Caul Dresser Relationship Specialty Start Date End Date Tobi Sorto MD [address] [place] [address] PCP - General Family Medicine 08/22/18 Caul Dresser Relationship Specialty Start Date End Date Tobi Sorto MD [address] [place] [address] PCP - General Family Medicine 08/22/18 Caul Dresser Relationship Specialty Start Date End Date Tobi Sorto MD [address] [place] [address] PCP - General Family Medicine 08/22/18 Caul Dresser Relationship Specialty Start Date End Date Tobi Sorto MD [address] [facility] [address] PCP - General Family Medicine 08/22/18 Caul Dresser Relationship Specialty Start Date End Date Tobi Sorto MD [address] [place] [address] PCP - General Family Medicine 08/22/18 Caul Dresser Relationship Specialty Start Date End Date Tobi Sorto MD [address] [place] [address] PCP - General Family Medicine 08/22/18 Caul Dresser Relationship Specialty Start Date End Date Tobi Sorto MD [address] [place] [address] PCP - General Family Medicine 08/22/18 Caul Dresser Relationship Specialty Start Date End Date Tobi Sorto MD [address] [place] [address] PCP - General Family Medicine 08/22/18 Caul Dresser Relationship Specialty Start Date End Date Tobi Sorto MD [address] [place] [address] PCP - General Family Medicine 08/22/18 Caul Dresser Relationship Specialty Start Date End Date Tobi Sorto MD [address] [place] [address] PCP - General Family Medicine 08/22/18 Caul Dresser Relationship Specialty Start Date End Date Tobi Sorto MD [address] [place] [address] PCP - General Family Medicine 08/22/18 Caul Dresser Relationship Specialty Start Date End Date Tobi Sorto MD [address] [place] [address] PCP - General Family Medicine 08/22/18 Caul Dresser Relationship Specialty Start Date End Date Tobi Sorto MD [address] [place] [address] PCP - General Family Medicine 08/22/18 Caul Dresser Relationship Specialty Start Date End Date Tobi Sorto MD [address] [facility] [address] PCP - General Family Medicine 08/22/18 Caul Dresser Relationship Specialty Start Date End Date Tobi Sorto MD [address] [facility] [address] PCP - General Family Medicine 08/22/18 Caul Dresser Relationship Specialty Start Date End Date Tobi Sorto MD [address] [place] [address] PCP - General Family Medicine 08/22/18 Caul Dresser Relationship Specialty Start Date End Date Tobi Sorto MD [address] [facility] [address] PCP - General Family Medicine 08/22/18 Caul Dresser Relationship Specialty Start Date End Date Tobi Sorto MD [address] [facility] [address] PCP - General Family Medicine 08/22/18 Caul Dresser Relationship Specialty Start Date End Date Tobi Sorto MD [address] [place] [address] PCP - General Family Medicine 08/22/18 Caul Dresser Relationship Specialty Start Date End Date Tobi Sorto MD [address] [place] [address] PCP - General Family Medicine 08/22/18 Caul Dresser Relationship Specialty Start Date End Date Tobi Sorto MD [address] [facility] [address] PCP - General Family Medicine 08/22/18 Caul Dresser Relationship Specialty Start Date End Date Tobi Sorto MD [address] [place] [address] PCP - General Family Medicine 08/22/18 Caul Dresser Relationship Specialty Start Date End Date Tobi Sorto MD [address] [place] [address] PCP - General Family Medicine 08/22/18 Caul Dresser Relationship Specialty Start Date End Date Tobi Sorto MD [address] [facility] [address] PCP - General Family Medicine 08/22/18 Caul Dresser Relationship Specialty Start Date End Date Tobi Sorto MD [address] [place] [address] PCP - General Family Medicine 08/22/18 Caul Dresser Relationship Specialty Start Date End Date Tobi Sorto MD [address] [place] [address] PCP - General Family Medicine 08/22/18 Caul Dresser Relationship Specialty Start Date End Date Tobi Sotro MD [address] [place] [address] PCP - General Family Medicine 08/22/18 Caul Dresser Relationship Specialty Start Date End Date Tobi Sorto MD [address] [place] [address] PCP - General Family Medicine 08/22/18 Caul Dresser Relationship Specialty Start Date End Date Tobi Sorto MD [address] [place] [address] PCP - General Family Medicine 08/22/18 Caul Dresser Relationship Specialty Start Date End Date Tobi Sorto MD [address] [facility] [address] PCP - General Family Medicine 08/22/18 Caul Dresser Relationship Specialty Start Date End Date Tobi Sorto MD [address] [place] [address] PCP - General Family Medicine 08/22/18 Caul Dresser Relationship Specialty Start Date End Date Tobi Sorto MD [address] [facility] [address] PCP - General Family Medicine 08/22/18 Caul Dresser Relationship Specialty Start Date End Date Tobi Sorto MD [address] [place] [address] PCP - General Family Medicine 08/22/18 Caul Dresser Relationship Specialty Start Date End Date Tobi Sorto MD [address] [place] [address] PCP - General Family Medicine 08/22/18 Caul Dresser Relationship Specialty Start Date End Date oTbi Sorto MD [address] [place] [address] PCP - General Family Medicine 08/22/18 Caul Dresser Relationship Specialty Start Date End Date Tobi Sorto MD [address] [facility] [address] PCP - General Family Medicine 08/22/18 Caul Dresser Relationship Specialty Start Date End Date Tobi Sorto MD [address] [place] [address] PCP - General Family Medicine 08/22/18 Caul Dresser Relationship Specialty Start Date End Date Tobi Sorto MD [address] [place] [address] PCP - General Family Medicine 08/22/18 Caul Dresser Relationship Specialty Start Date End Date Tobi Sorto MD [address] [place] [address] PCP - General Family Medicine 08/22/18 Caul Dresser Relationship Specialty Start Date End Date Tobi Sorto MD [address] [facility] [place] [address] PCP - General Family Medicine 08/22/18 Caul Dresser Relationship Specialty Start Date End Date Tobi Sorto MD [address] [place] [address] PCP - General Family Medicine 08/22/18 Caul Dresser Relationship Specialty Start Date End Date Tobi Sorto MD [address] [place] [address] PCP - General Family Medicine 08/22/18 Caul Dresser Relationship Specialty Start Date End Date Tobi Sorto MD [address] [place] [address] PCP - General Family Medicine 08/22/18 PodlogAudrey kwan APRN.WEB [employer]UTIONS ARCHITECT [address] [facility] [address] Outreach Specialist Family Medicine 03/08/24 Caul Dresser Relationship Specialty Start Date End Date Tobi Sorto MD [address] [place] [address] PCP - General Family Medicine 08/22/18 PodlogAudrey kwan APRN.WEB SOLUT[employer] ARCHITECT [address] [place] [address] Outreach Specialist Family Medicine 03/08/24 Caul Dresser Relationship Specialty Start Date End Date Tobi Sorto MD [address] [facility] [address] PCP - General Family Medicine 08/22/18 PodlogarAudrey APRN.WEB SOLUTIONS ARCHITECT [address] [place] [address] Outreach Specialist Family Medicine 03/08/24 Caul Dresser Relationship Specialty Start Date End Date Tobi Sorto MD [address] [place] [address] PCP - General Family Medicine 08/22/18 PodlogarAudrey APRN.WEB SOLUTIONS ARCHITECT [address] [place] [address] Outreach Specialist Family Medicine 03/08/24 Caul Dresser Relationship Specialty Start Date End Date Tobi Sorto MD [address] [place] [address] PCP - General Family Medicine 08/22/18 PodlogarAudrey, HAT LINING BLOCKER.WE[employer] SOLUTIONS ARCHITECT [address] [place] [address] Outreach Specialist Family Medicine 03/08/24 Caul Dresser Relationship Specialty Start Date End Date Tobi Sorto MD [address] [place] [address] PCP - General Family Medicine 08/22/18 Podlogar, Audrey HAT LINING BLOCKER.WEB SOLUTIONS ARCHITECT [address] [place] [address] Outreach Specialist Family Medicine 03/08/24 Caul Dresser Relationship Specialty Start Date End Date Tobi Sorto MD [address] [place] [address] PCP - General Family Medicine 08/22/18 PodlogAudrey kwan APRN.WEB SOLUTIONS ARCHITECT [address] [place] [address] Outreach Specialist Family Medicine 03/08/24 Caul Dresser Relationship Specialty Start Date End Date Tobi Sorto MD [address] [place] [address] PCP - General Family Medicine 08/22/18 PodlogAudrey kwan APRN.WEB SOLUTIONS ARCHITECT [address] [place] [address] Outreach Specialist Family Medicine 03/08/24 Ny Diez APRN.WEB SOL[employer] ARCHITECT [address] [place] [address] Outreach Specialist Family Medicine 06/23/24 Caul Dresser Relationship Specialty Start Date End Date Tobi Sorto MD [address] [place] [address] PCP - General Family Medicine 08/22/18 PodlogarAudrey APRN.WEB SOLUTIONS ARCHITECT [address] [place] [address] Outreach Specialist Family Medicine 03/08/24 Ny Diez APRN.WEB SOLUTIONS ARCHITECT [address] [place] [address] Outreach Specialist Family Medicine 06/23/24 Caul Dresser Relationship Specialty Start Date End Date Tobi Sorto MD [address] [place] [address] PCP - General Family Medicine 08/22/18 PodlogarAudrey APRN.WEB SOLUTIONS ARCHITECT [address] [place] [address] Outreach Specialist Family Medicine 03/08/24 Ny Diez APRN.WEB SOLUTIONS ARCHITECT [address] [place] [address] Outreach Specialist Family Medicine 06/23/24 Caul Dresser Relationship Specialty Start Date End Date Tobi Sorto MD [address] [place] [address] PCP - General Family Medicine 08/22/18 PodlogarAudrey APRN.WEB SOLUTIONS ARCHITECT [address] [place] [address] Outreach Specialist Family Medicine 03/08/24 Ny Diez APRN.WEB [employer] ARCHITECT [address] [place] [address] Outreach Specialist Family Medicine 06/13/24 06/22/24 Ny Diez APRN.WEB SOLUTIONS ARCHITECT [address] [place] [address] Outreach Specialist Family Medicine 06/23/24 Caul Dresser Relationship Specialty Start Date End Date Tobi Sorto MD [address] [place] [address] PCP - General Family Medicine 08/22/18 PodlogarAudrey HAT LINING BLOCKER.WEB SOLUTIONS ARCHITECT [address] [place], [place] [address] Outreach Specialist Family Medicine 03/08/24 Ny Diez APRN.WEB SOLUT[employer] ARCHITECT [address] [place] [address] [facility] 06/23/24 Caul Dresser Relationship Specialty Start Date End Date Tobi Sorto MD [address] [place] [address] PCP - General Family Medicine 08/22/18 PodlogarAudrey APRN.WEB SOLUTIONS ARCHITECT [address] [place] [address] [facility] 03/08/24 Ny Diez HAT LINING BLOCKER.WEB SOLUTIONS ARCHITECT [address] [place] [address] [facility] 06/23/24 Caul Dresser Relationship Specialty Start Date End Date Tobi Sorto MD [address] [place] [address] PCP - General Family Medicine 08/22/18 PodlogarAudrey HAT LINING BLOCKER.WEB SOLUTIONS ARCHITECT [address] [place] [address] Outreach Specialist Family Medicine 03/08/24 Ny Diez HAT LINING BLOCKER.WEB SOLUTIONS ARCHITECT [address] [place] [address] [facility] Medicine 06/23/24 Caul Dresser Relationship Specialty Start Date End Date Tobi Sorto MD [address] [place] [address] PCP - General Family Medicine 08/22/18 PodlogarAudrey APRN.WEB SOLUTIONS ARCHITECT [address] [place] [address] Outreach Specialist Family Medicine 03/08/24 Ny Diez APRN.WEB SOLUTIONS ARCHITECT [address] [place], [place] [id number] [facility] 06/[facility]/24 Caul Dresser Relationship Specialty Start Date End Date Tobi Sorto MD [address] [place] [address] PCP - General Family Medicine 08/22/18 Podlogar, Audrey HAT LINING BLOCKER.WEB SOLUTIONS ARCHITECT [address] [place] [address] Outreach Specialist Family Medicine 03/08/24 Ny Diez HAT LINING BLOCKER.WEB SOLUTIONS ARCHITECT [address] [place] [address] [facility] 06/[facility]/24 Caul Dresser Relationship Specialty Start Date End Date Tobi Sorto MD [address] [place] [address] PCP - General Family Medicine 08/22/18 PodlogarAudrey HAT LINING BLOCKER.WEB SOLUTIONS ARCHITECT [address] [facility] [address] Outreach Specialist Family Medicine 03/08/24 Ny Diez HAT LINING BLOCKER.WEB SOLUTIONS ARCHITECT [address] [place] [address] [facility] Medicine 06/23/24 Caul Dresser Relationship Specialty Start Date End Date Tobi Sorto MD [address] [facility] [address] PCP - General Family Medicine 08/22/18 Podlogar, Audrey, HAT LINING BLOCKER.WEB SOLUTIONS ARCHITECT [address] [facility] [address] Outreach Specialist Family Medicine 03/08/24 Caul Dresser Relationship Specialty Start Date End Date Tobi Sorto MD [address] [facility] [address] PCP - General Family Medicine 08/22/18 Podlogar, Audrey, HAT LINING BLOCKER.WEB SOLUTIONS ARCHITECT [address] [facility] [address] Outreach Specialist Family Medicine 03/08/24 Caul Dresser Relationship Specialty Start Date End Date Tobi Sorto MD [address] [facility] [address] PCP - General Family Medicine 08/22/18 Podlogar, Audrey, HAT LINING BLOCKER.WEB SOLUTIONS ARCHITECT [address] [place] [address] Outreach Specialist Family Medicine 03/08/24 Ny Diez HAT LINING BLOCKER.WEB SOLUTIONS ARCHITECT [address] [place] [address] Outreach Specialist Family Medicine 09/11/24 Caul Dresser Relationship Specialty Start Date End Date Tobi Sorto MD [address] [facility] [address] PCP - General Family Medicine 08/22/18 Podlogar, Audrey, HAT LINING BLOCKER.WEB SOLUTIONS ARCHITECT [address] [facility] [address] Outreach Specialist Family Medicine 03/08/24 Ny Diez APRN.WEB SOLUTIONS ARCHITECT [address] [place] [address] Outreach Specialist Family Medicine 06/23/24 08/17/24 Ny Diez APRN.WEB SOLUTIONS ARCHITECT [address] [place] [address] Outreach Specialist Family Medicine 09/11/24 Caul Dresser Relationship Specialty Start Date End Date Tobi Sorto MD [address] [place] [address] PCP - General Family Medicine 08/22/18 PodlogarAdurey APRN.WEB SOLUTIONS ARCHITECT [address] [facility] [address] Outreach Specialist Family Medicine 03/08/24 Ny Diez APRN.WEB SOLUTIONS ARCHITECT [address] [place] [address] Outreach Specialist Family Medicine 09/11/24 Caul Dresser Relationship Specialty Start Date End Date Toib Sorto MD [address] [facility] [address] PCP - General Family Medicine 08/22/18 Audrey Packer APRN.WEB SOLUTIONS ARCHITECT [address] [facility] [address] Outreach Specialist Family Medicine 03/08/24 Ny Diez APRN.WEB SOLUTIONS ARCHITECT [address] [place] [address] [facility] Caul Dresser Relationship Specialty Start Date End Date Tobi Sorto MD [address] [place] [address] PCP - General Family Medicine 08/22/18 Podlogar, Audrey, HAT LINING BLOCKER.WEB SOLUTIONS ARCHITECT [address] [place] [address] Outreach Specialist Family Medicine 03/08/24 Ny Diez APRN.WEB SOLUTIONS ARCHITECT [address] [place] [address] [facility] 09/11/24 Caul Dresser Relationship Specialty Start Date End Date Tobi Sorto MD [address] [place] [address] PCP - General Family Medicine 08/22/18 Podlogar, Audrey, HAT LINING BLOCKER.WEB SOLUTIONS ARCHITECT [address] [place] [address] Outreach Specialist Family Medicine 03/08/24 Ny Diez HAT LINING BLOCKER.WEB SOLUTIONS ARCHITECT [address] [place] [address] [facility] Medicine 09/11/24 Caul Dresser Relationship Specialty Start Date End Date Tobi Sorto MD [address] [place] [address] PCP - General Family Medicine 08/22/18 Podlogar, Audrey, HAT LINING BLOCKER.WEB SOLUTIONS ARCHITECT [address] [place] [address] Outreach Specialist Family Medicine 03/08/24 Ny Diez HAT LINING BLOCKER.WEB SOLUTIONS ARCHITECT [address] [place] [address] [facility] 09/11/24 Caul Dresser Relationship Specialty Start Date End Date Tobi Sorto MD [address] [place] [address] PCP - General Family Medicine 08/22/18 PodlogarAudrey, HAT LINING BLOCKER.WEB SOLUTIONS ARCHITECT [address] [place] [address] [facility] Medicine 03/08/24 Ny Diez HAT LINING BLOCKER.WEB SOLUTIONS ARCHITECT [address] [place] [address] [facility] 09/11/24 Caul Dresser Relationship Specialty Start Date End Date Tobi Sorto MD [address] [place] [address] PCP - General Family Medicine 08/22/18 PodlogarAudrey, HAT LINING BLOCKER.WEB SOLUTIONS ARCHITECT [address] [place] [address] [facility] Family Medicine 03/08/24 Ny Diez HAT LINING BLOCKER.WEB SOLUTIONS ARCHITECT [address] [place] [address] [facility] Medicine 09/11/24 Caul Dresser Relationship Specialty Start Date End Date Tobi Sorto MD [address] [place] [address] PCP - General Family Medicine 08/22/18 PodlogAudrey kwan APRN.WEB SOLUTIONS ARCHITECT [address] [place], [place] [address] [facility] 03/08/24 Ny Diez APRN.WEB SOLUTIONS ARCHITECT [address] [place] [address] [facility] 09/11/24 FOR RECORDS PERTAINING TO PATIENTS WHO [...] BE BASED ON THE PRIMARY CLINICAL RECORDS. [facility]. provides no warranty or guarantee of the accuracy or completeness of information in this document.
[2024-10-18 23:44] LABS: Magnesium 1.9 mg/dL (1.5-2.2)
[2024-10-19] VITALS (8 sets, daily range): BP systolic 160–172; BP diastolic 69–89; PULSE 64–90; RESP 16–18; TEMP 36–36.4; O2SAT 92–97; BMI 33.5
--- NOTE | 2024-10-19 00:40 | ECHOCS_ITS ---
Reason For Study Reason For Study: A fib/flutter Procedure This was a 2D Doppler, Color Flow transthoracic echocardiogram. The study was technically difficult. Exam performed portable in patient room. Left Ventricle Normal LV size. The left ventricular ejection fraction is 45 %. Right Ventricle Normal RV size. Normal systolic function. Atria Normal left atrium. Normal right atrium. Mitral Valve Normal mitral valve. Tricuspid Valve Normal tricuspid valve. Aortic Valve Normal aortic valve. Pulmonic Valve The pulmonic valve is not well visualized. Great Vessels Normal aortic root. The pulmonary artery is normal size. Inferior vena cava collapse with respiration. Pericardium/Pleural No pericardial effusion. Medication Diluted definity 2.0ml given slow IV push to enhance endocardial definition. MMode/2D Measurements & Calculations LVIDd: 4.6 cm IVSd: 0.91 cm Ao root diam: 3.6 cm LVIDs: 3.4 cm LVPWd: 1.1 cm RVDd: 3.7 cm FS: 26.4 % LAV(MOD-bp): 41.9 ml LVAd ap4: 30.2 cm2 LVAd ap2: 33.7 cm2 LAV(MOD-bp) Indexed: 17.5 ml/m2 LVLd ap4: 7.8 cm LVLd ap2: 8.5 cm LAV(MOD-sp2): 40.0 ml EDV(MOD-sp4): 96.7 ml EDV(MOD-sp2): 110.9 ml LAV(MOD-sp4): 43.5 ml EDV(sp4-el): 98.8 ml EDV(sp2-el): 112.9 ml LVAs ap4: 21.8 cm2 LVAs ap2: 22.7 cm2 LVLs ap4: 7.3 cm LVLs ap2: 7.3 cm ESV(MOD-sp4): 55.3 ml ESV(MOD-sp2): 58.3 ml ESV(sp4-el): 55.2 ml ESV(sp2-el): 60.4 ml EF(MOD-sp4): 42.8 % EF(MOD-sp2): 47.4 % EF(sp4-el): 44.1 % SV(MOD-sp4): 41.3 ml SV(MOD-sp2): 52.6 ml SV(sp4-el): 43.6 ml SI(MOD-sp4): 17.3 ml/m2 SI(MOD-sp2): 22.0 ml/m2 LA A4 area: 16.5 cm2 LA dimension(2D): 3.9 cm RA A4 area: 13.4 cm2 Doppler Measurements & Calculations MV E max shira: 112.2 cm/sec Ao V2 max: 115.4 cm/sec LV V1 max: 107.3 cm/sec Ao max P.4 mmHg LV V1 max P.6 mmHg Ao V2 mean: 81.1 cm/sec LV V1 mean P.5 mmHg Ao mean P.9 mmHg LV V1 mean: 76.0 cm/sec Ao V2 VTI: 25.5 cm LV V1 VTI: 23.5 cm AV (velocity ratio): 0.92 PA V2 max: 102.9 cm/sec ECHO/Echo Complete W/ Contrast Interpretation Summary Normal LV size. The left ventricular ejection fraction is 45 %. Contrast injection was performed. Ordering Physician: Ezequiel Bay Referring Physician: Luke Jenkins Performed By: Familia Gonzalez RCS
--- NOTE | 2024-10-19 02:30 | PCM.RX.CS ---
Consult Antibiotic Management Pharmacy has been consulted to manage selected antibiotic: Vancomycin Type of Intervention Type of Consult: New start Labs Labs: Sodium 140 mmol/L (133-145) 10/18/24 21:14 Potassium 4.1 mmol/L (3.3-5.1) 10/18/24 21:14 Chloride 100 mmol/L (98-108) 10/18/24 21:14 Carbon Dioxide 26.5 mmol/L (21.0-32.0) 10/18/24 21:14 Anion Gap 14 (5-15) 10/18/24 21:14 BUN 23 mg/dL (4-19) H 10/18/24 21:14 Creatinine 1.36 mg/dL (0.70-1.20) H 10/18/24 21:14 Est GFR (MDRD) Non-Af 56 (>60) L 10/18/24 21:14 BUN/Creatinine Ratio 17.1 RATIO (10-20) 10/18/24 21:14 Glucose 112 mg/dL (70-99) H 10/18/24 21:14 Dosing Weight Weight used for dosin kg Estimated Creatinine Clearance Estimated Creatinine Clearance: 66 Goal Trough Goal Trough: 15-20 mcg/mL Pharmacy Plan for Drug Dosing Pharmacy Plan for Drug Dosing: Pharmacy Service will continue to monitor and adjust dosing as required. Follow-Up Labs Follow-Up Labs: Trough: Vancomycin Date/Time Labs Ordered Labs to be done on [date and time ordered]: 10/20/24 @1699
[2024-10-19] MEDS: 0.9% Normal Saline (1000mL) 1,000 ML 999 ML IV (03:39)
[2024-10-19] MEDS: 0.9% Normal Saline (1000mL) 1,000 ML 70 ML IV (03:50)
[2024-10-19 05:43] LABS: Hematocrit 48.3 % (40-54); Hemoglobin 15.8 g/dL (13.0-16.5); Immature Granulocytes Count 0.050 X10^3/uL (0.0-0.0); Mean Corp Hgb Conc 32.7 g/dL (32-36); Mean Corpuscular Volume 97.8 fL (80-94); Mean Platelet Vol. 11.0 fl (6.2-12.0); NRBC Flagged by Analyzer 0 % (0-5); Platelet Count 183 K/mm3 (150-450); RBC Distribution Width CV 15.6 % (11.6-14.6); RBC Distribution Width SD 55.8 fl (35.1-43.9); Red Blood Count 4.94 M/mm3 (4.6-6.2); White Blood Count 9.7 K/mm3 (4.4-11.0)
[2024-10-19 06:23] LABS: AST(SGOT) 21 U/L (<=37); Alanine Aminotransfer ALT/SGPT 14 U/L (<=46); Albumin, Serum 3.2 g/dL (3.4-4.8); Alkaline Phosphatase 59 U/L (40-129); Anion Gap 12 (5-15); BUN 21 mg/dL (4-19); BUN/Creat Ratio 17.4 RATIO (10-20); Calcium,Total 8.8 mg/dL (7.6-11.0); Carbon Dioxide 23.2 mmol/L (21.0-32.0); Chloride 105 mmol/L (98-108); Cholesterol 129 mg/dL (<=200); Estimated Creatinine Clearance 77.53 ml/min (50-250); Globulin 3.3 g/dL (2.2-4.2); Glucose 149 mg/dL (70-99); Low Density Lipoprotein Calc. 52 mg/dL; Potassium 4.1 mmol/L (3.3-5.1); Triglycerides 225 mg/dL; Very Low Density Lipoprotein 45 mg/dL (5-40); cholesterol:hdl ratio screen 4.02
[2024-10-19] MEDS: Piperacil/Tazobactam 3.375 GM in 0.9% Normal Saline (50mL MB+) 50 ML IV ×3 (06:39→21:10)
--- NOTE | 2024-10-19 08:58 | PN.HOSP_ITS ---
Reason for Visit Chief Complaint: Worsening Left Toe Wound. Objective Data Objective Data Vital Signs: Vital Signs Temp Pulse Resp BP Pulse Ox O2 Del Method O2 Flow Rate 97.6 F L 77 16 172/69 H 97 Room Air 2 10/19/24 00:48 10/19/24 00:48 10/19/24 00:48 10/19/24 00:48 10/19/24 01:02 10/19/24 02:47 10/19/24 01:02 FiO2 2 10/19/24 01:00 Oxygen Flow Rate (L/min) 2 Oxygen Delivery Method Room Air Weight: 115.4 kg Body Mass Index (BMI) 33.5 Intake & Output: Intake and Output for Last 24 Hours 10/17/24 10/18/24 10/19/24 23:59 23:59 23:59 Intake Total 1050 / 1050 1918.15 / 1918.15 Output Total 550 / 550 Balance 1050 / 1050 1368.15 / 1368.15 Lab / Micro Data 10/19/24 04:39 10/19/24 04:39 Labs: Laboratory Results - last 24 hr 10/18/24 21:05: WBC 11.6 H, RBC 5.45, Hgb 17.7 H, Hct 52.4, MCV 96.1 H, MCH 32.5 H, MCHC 33.8, RDW Std Deviation 56.2 H, RDW Coeff of Kimberly 15.9 H, Plt Count 194, MPV 10.8, Immature Gran % (Auto) 0.400, Neut % (Auto) 65.7, Lymph % (Auto) 22.8, Simpson % (Auto) 7.3, Eos % (Auto) 3.1, Baso % (Auto) 0.7, Absolute Neuts (auto) 7.6, Absolute Lymphs (auto) 2.64, Nucleated RBC % 0, PT 12.4, INR 0.9, APTT 27.8, Hemoglobin A1c 7.1 H 10/18/24 21:14: Sodium 140, Potassium 4.1, Chloride 100, Carbon Dioxide 26.5, Anion Gap 14, BUN 23 H, Creatinine 1.36 H, Estim Creat Clear Calc 65.75, Est GFR (MDRD) Non-Af 56 L, BUN/Creatinine Ratio 17.1, Glucose 112 H, Lactic Acid 1.9, Calcium 9.9, Magnesium 1.9, Total Bilirubin 0.76, AST 25, ALT 20, Alkaline Phosphatase 71, Total Protein 8.0, Albumin 4.1, Globulin 3.8, Albumin/Globulin Ratio 1.1, TSH 2.840 10/18/24 21:15: Urine Color Yellow, Urine Clarity Clear, Urine pH 5.0, Ur Specific [place] 1.025, Urine Protein 500 H, Urine Glucose (UA) 1000 H, Urine Ketones 5 H, Urine Occult Blood 10 H, Urine Nitrite Negative, Urine Bilirubin 1 H, Urine Urobilinogen Normal, Ur Leukocyte Esterase 25 H, Urine RBC 0 SEEN, Urine WBC 0-5 SEEN, Ur Squamous Epith Cells 0-5 SEEN, Urine Bacteria RARE, Urine Mucus 0 SEEN 10/19/24 04:39: WBC 9.7, RBC 4.94, Hgb 15.8, Hct 48.3, MCV 97.8 H, MCH 32.0, MCHC 32.7, RDW Std Deviation 55.8 H, RDW Coeff of Kimberly 15.6 H, Plt Count 183, MPV 11.0, Immature Gran % (Auto) 0.500, Neut % (Auto) 62.9, Lymph % (Auto) 24.4, Simpson % (Auto) 7.6, Eos % (Auto) 3.9, Baso % (Auto) 0.7, Absolute Neuts (auto) 6.1, Absolute Lymphs (auto) 2.36, Nucleated RBC % 0, Sodium 140, Potassium 4.1, Chloride 105, Carbon Dioxide 23.2, Anion Gap 12, BUN 21 H, Creatinine 1.18, Estim Creat Clear Calc 77.53, Est GFR (MDRD) Non-Af 66, BUN/Creatinine Ratio 17.4, Glucose 149 H, Calcium 8.8, Phosphorus 3.1, Total Bilirubin 0.53, AST 21, ALT 14, Alkaline Phosphatase 59, Total Protein 6.5, Albumin 3.2 L, Globulin 3.3, Albumin/Globulin Ratio 1.0, Triglycerides 225 H, Cholesterol 129, LDL Cholesterol, Calc 52, VLDL Cholesterol 45 H, HDL Cholesterol 32 L, Cholesterol/HDL Ratio 4.02 10/19/24 06:31: POC Glucose 142 H Radiography Diagnostic Testing: Radiology Impression Foot X-Ray 10/18/24 20:39 IMPRESSION: No definite radiographic evidence of acute osteomyelitis. Consider MRI or bone scan if there is persistent clinical concern. Reading Location: [facility] Physical Exam Const alert, oriented x3, no apparent distress and healthy appearing Constitutional Narrative: Obese patient nontoxic in appearance. General Appearance: cooperative HEENT normocephalic, head/scalp atraumatic, hearing grossly normal bilaterally and moist oral mucous membranes Eyes PERRL, EOMs intact bilaterally and conjunctivae normal Neck no lymphadenopathy, supple and no JVD Resp normal respiratory effort, no retractions, no use of accessory muscles and clear to auscultation bilaterally Cardio regular rate and regular rhythm GI normal to inspection, nondistended, normoactive bowel sounds, soft to palpation, non-tender and non-distended GI Narrative: Obese. Extremity Extremity Narrative: Chronic wound of Left great toe with apparent acute infection but with no evidence of neurovascular compromise. Skin Skin Narrative: Chronic wound of Left great toe with apparent acute infection but with no evidence of neurovascular compromise. Neuro oriented x3, CN's II-XII intact bilaterally, moves all extremities and no focal motor deficits Sensorium / Orientation: awake, alert, oriented to person, oriented to place and oriented to time Speech: speech normal Psych affect normal Assessment & Plan Assessment/Plan (1) Infected abrasion of great toe: QUALIFIERS: Encounter type: initial encounter Laterality: left Q ualified Code(s): S90.412A - Abrasion, left great toe, initial encounter; L08.9 - Local infection of the skin and subcutaneous tissue, unspecified (2) Atrial fibrillation, new onset: (3) Type 2 diabetes mellitus, without long-term current use of insulin: QUALIFIERS: Diabetes mellitus complication status: without complication Qualified Code(s): E11.9 - Type 2 diabetes mellitus without complications PLAN: Plan 1. Worsening Left great toe wound with Leukocytosis of 11.6 K present on admission with x-rays on admission revealing no definite radiographic evidence of acute osteomyelitis - Admit to general medical floor. Continue empiric IV vancomycin and IV piperacillin-tazobactam began in ER and await culture and sensitivity data. Check DNA MRSA probe of wound. Give acetaminophen as needed for [id number] (level 1-5/10) pain or fever. Give oxycodone as needed for severe (level 6-10/10) pain. We will check MRI of the Left foot to evaluate for possible osteomyelitis. Finally, we will consult bridge rigger on-call to see this patient on rounds for further recommendations without appreciated advance. 2. Failure of outpatient Antibiotic Therapy with oral ciprofloxacin and amoxicillin-clavulanate complicating #1 suggesting MRSA - Noted. Will culture wound and check DNA PCR probe of wound for MRSA. 3. Apparently new-onset Atrial Fibrillation; rate-controlled compounding #1 & #2 - Maintain on full-dose enoxaparin begun in the ER. Check echocardiogram to evaluate LVEF. 4. DM-2; of unknown control on metformin twice daily, glimepiride and empagliflozin with severe diabetic neuropathy complicating #1 - #3 - Hold oral hypoglycemic medications while inpatient. ADA diet with fingerstick blood sugars q. AC/HS plus SSI. Check hemoglobin A1c to objectively evaluate quality of diabetic control. 5. Tobacco abuse adding to the medical complexity of #1 - #4 - Tobacco Cessation will be strongly encouraged with nicotine patch offered to control cravings. 6. Obesity (class I); with BMI of 32 this admission adding to the burden of disease outlined from #1 - #5 - Weight loss will be recommended . Check TSH. This complicates his case and may hamper recovery. 7. Essential hypertension; on losartan and hydrochlorothiazide - Maintain home regimen as previous. 8. Hyperlipidemia; on atorvastatin - Resume statin and check lipid profile. 9. Neuropathy; on gabapentin TID - Present treatment to continue as previous. 10. SCOTTIE; on ferrous sulfate - Stable with hemoglobin of 17.7g/dL and MCV of 96.1 fL present on admission. 11. RLS; on pramipexole - Continue nightly pramipexole. 12. Depression; on amitriptyline - Maintain on amitriptyline. 13. GERD; on omeprazole - Resume PPI. 14. DVT prophylaxis - Patient already on full-dose enoxaparin for #2. Total time: Approximately (midnight less than) 75 minutes.
[2024-10-19] MEDS: Lactobacillis Acidophilus 1 CAP PO (09:05)
[2024-10-19] MEDS: Cholecalciferol (Vit D3) 125 MCG CAPSULE (5,000 UNITS) PO (09:07)
[2024-10-19] MEDS: Zinc Sulfate 50 mg zinc (220 mg) ORAL capsule PO (09:07)
--- NOTE | 2024-10-19 09:21 | PN_ITS ---
Assessment & Plan Assessment/Plan (1) Infected abrasion of great toe: QUALIFIERS: Encounter type: initial encounter Laterality: left Qualified Code(s): S90.412A - Abrasion, left great toe, initial encounter; L08.9 - Local infection of the skin and subcutaneous tissue, unspecified (2) Atrial fibrillation, new onset: (3) Type 2 diabetes mellitus, without long-term current use of insulin: QUALIFIERS: Diabetes mellitus complication status: without complication Qualified Code(s): E11.9 - Type 2 diabetes mellitus without complications PLAN: Plan 1. Worsening Left great toe wound with Leukocytosis of 11.6 K present on admission with x-rays on admission revealing no definite radiographic evidence of acute osteomyelitis - Admit to general medical floor. Continue empiric IV vancomycin and IV piperacillin-tazobactam began in ER and await culture and sensitivity data. Check DNA MRSA probe of wound. Give acetaminophen as needed for [id number] (level 1-5/10) pain or fever. Give oxycodone as needed for severe (level 6-10/10) pain. We will check MRI of the Left foot to evaluate for possible osteomyelitis. Finally, we will consult press feeder broomcorn on-call to see this patient on rounds for further recommendations without appreciated advance. 2. Failure of outpatient Antibiotic Therapy with oral ciprofloxacin and amoxicillin-clavulanate complicating #1 suggesting MRSA - Noted. Will culture wound and check DNA PCR probe of wound for MRSA. 3. Apparently new-onset Atrial Fibrillation; rate-controlled compounding #1 & #2 - Maintain on full-dose enoxaparin begun in the ER. Check echocardiogram to evaluate LVEF. 4. DM-2; of unknown control on metformin twice daily, glimepiride and empagliflozin with severe diabetic neuropathy complicating #1 - #3 - Hold oral hypoglycemic medications while inpatient. ADA diet with fingerstick blood sugars q. AC/HS plus SSI. Check hemoglobin A1c to objectively evaluate quality of diabetic control. 5. Tobacco abuse adding to the medical complexity of #1 - #4 - Tobacco Cessation will be strongly encouraged with nicotine patch offered to control cravings. 6. Obesity (class I); with BMI of 32 this admission adding to the burden of disease outlined from #1 - #5 - Weight loss will be recommended . Check TSH. This complicates his case and may hamper recovery. 7. Essential hypertension; on losartan and hydrochlorothiazide - Maintain home regimen as previous. 8. Hyperlipidemia; on atorvastatin - Resume statin and check lipid profile. 9. Neuropathy; on gabapentin TID - Present treatment to continue as previous. 10. SCOTTIE; on ferrous sulfate - Stable with hemoglobin of 17.7g/dL and MCV of 96.1 fL present on admission. 11. RLS; on pramipexole - Continue nightly pramipexole. 12. Depression; on amitriptyline - Maintain on amitriptyline. 13. GERD; on omeprazole - Resume PPI. 14. DVT prophylaxis - Patient already on full-dose enoxaparin for #2. Total time: Approximately (midnight less than) 75 minutes.
--- NOTE | 2024-10-19 09:22 | PN.HOSP_ITS ---
Reason for Visit Chief Complaint: Worsening Left Toe Wound. Subjective Subjective Patient is a 69-year-old gentleman who presented with wound involving the left first toe. Patient had been prescribed Augmentin and Cipro as outpatient by his harmonic analyst however symptoms continue to worsen Objective Data Objective Data Vital Signs: Vital Signs Temp Pulse Resp BP Pulse Ox O2 Del Method O2 Flow Rate 96.9 F L 78 18 169/79 H 94 Room Air 2 10/19/24 08:55 10/19/24 08:55 10/19/24 08:55 10/19/24 08:55 10/19/24 08:55 10/19/24 08:55 10/19/24 01:02 FiO2 2 10/19/24 01:00 Oxygen Flow Rate (L/min) 2 Oxygen Delivery Method Room Air Weight: 115.4 kg Body Mass Index (BMI) 33.5 Intake & Output: Intake and Output for Last 24 Hours 10/17/24 10/18/24 10/19/24 23:59 23:59 23:59 Intake Total 1050 / 1050 1918.15 / 1918.15 Output Total 550 / 550 Balance 1050 / 1050 1368.15 / 1368.15 Lab / Micro Data 10/19/24 04:39 10/19/24 04:39 Labs: Laboratory Results - last 24 hr 10/18/24 21:05: WBC 11.6 H, RBC 5.45, Hgb 17.7 H, Hct 52.4, MCV 96.1 H, MCH 32.5 H, MCHC 33.8, RDW Std Deviation 56.2 H, RDW Coeff of Kimberly 15.9 H, Plt Count 194, MPV 10.8, Immature Gran % (Auto) 0.400, Neut % (Auto) 65.7, Lymph % (Auto) 22.8, [place] % (Auto) 7.3, Eos % (Auto) 3.1, Baso % (Auto) 0.7, Absolute Neuts (auto) 7.6, Absolute Lymphs (auto) 2.64, Nucleated RBC % 0, PT 12.4, INR 0.9, APTT 27.8, Hemoglobin A1c 7.1 H 10/18/24 21:14: Sodium 140, Potassium 4.1, Chloride 100, Carbon Dioxide 26.5, Anion Gap 14, BUN 23 H, Creatinine 1.36 H, Estim Creat Clear Calc 65.75, Est GFR (MDRD) Non-Af 56 L, BUN/Creatinine Ratio 17.1, Glucose 112 H, Lactic Acid 1.9, Calcium 9.9, Magnesium 1.9, Total Bilirubin 0.76, AST 25, ALT 20, Alkaline Phosphatase 71, Total Protein 8.0, Albumin 4.1, Globulin 3.8, Albumin/Globulin Ratio 1.1, TSH 2.840 10/18/24 21:15: Urine Color Yellow, Urine Clarity Clear, Urine pH 5.0, Ur Specific [place] 1.025, Urine Protein 500 H, Urine Glucose (UA) 1000 H, Urine Ketones 5 H, Urine Occult Blood 10 H, Urine Nitrite Negative, Urine Bilirubin 1 H, Urine Urobilinogen Normal, Ur Leukocyte Esterase 25 H, Urine RBC 0 SEEN, Urine WBC 0-5 SEEN, Ur Squamous Epith Cells 0-5 SEEN, Urine Bacteria RARE, Urine Mucus 0 SEEN 10/19/24 04:39: WBC 9.7, RBC 4.94, Hgb 15.8, Hct 48.3, MCV 97.8 H, MCH 32.0, MCHC 32.7, RDW Std Deviation 55.8 H, RDW Coeff of Kimberly 15.6 H, Plt Count 183, MPV 11.0, Immature Gran % (Auto) 0.500, Neut % (Auto) 62.9, Lymph % (Auto) 24.4, [place] % (Auto) 7.6, Eos % (Auto) 3.9, Baso % (Auto) 0.7, Absolute Neuts (auto) 6.1, Absolute Lymphs (auto) 2.36, Nucleated RBC % 0, Sodium 140, Potassium 4.1, Chloride 105, Carbon Dioxide 23.2, Anion Gap 12, BUN 21 H, Creatinine 1.18, Estim Creat Clear Calc 77.53, Est GFR (MDRD) Non-Af 66, BUN/Creatinine Ratio 17.4, Glucose 149 H, Calcium 8.8, Phosphorus 3.1, Total Bilirubin 0.53, AST 21, ALT 14, Alkaline Phosphatase 59, Total Protein 6.5, Albumin 3.2 L, Globulin 3.3, Albumin/Globulin Ratio 1.0, Triglycerides 225 H, Cholesterol 129, LDL Cholesterol, Calc 52, VLDL Cholesterol 45 H, HDL Cholesterol 32 L, Cholesterol/HDL Ratio 4.02 07/20/25 06:31: POC Glucose 142 H Radiography Diagnostic Testing: Radiology Impression Foot X-Ray 10/18/24 20:39 IMPRESSION: No definite radiographic evidence of acute osteomyelitis. Consider MRI or bone scan if there is persistent clinical concern. Reading Location: [facility] Physical Exam Narrative GENERAL: cooperative HEENT: Atraumatic; normocephalic EYES; Anicteric, Normal Conjunctiva NECK; supple, normal thyroid, RESPIRATORY: Diminished to auscultation CARDIOVASCULAR: Regular S1 S2, GI: soft, normoactive bowel sounds, : No Renal angle tenderness; EXTREMITIES: No edema, no clubbing, MUSCULOSKELETAL: Left big toe in surgical dressing NEURO: Awake; no lateralizing signs. SKIN: No Rash PSYCH; Flat affect Assessment & Plan Assessment/Plan (1) Infected abrasion of great toe: QUALIFIERS: Encounter type: initial encounter Laterality: left Q ualified Code(s): S90.412A - Abrasion, left great toe, initial encounter; L08.9 - Local infection of the skin and subcutaneous tissue, unspecified PLAN: Plan Patient is a 69-year-old gentleman who presented with wound involving the left first toe. Patient had been prescribed Augmentin and Cipro as outpatient by his harmonic analyst however symptoms continue to worsen Diabetic foot infection involving the left great toe ? Imaging studies obtained on admission did not show any evidence of osteomyelitis. Patient has been treated with amoxicillin as well as Cipro, clinical condition however did worsen necessitating patient presenting to the emergency department. Patient was started on vancomycin and piperacillin/tazobactam. MRI ordered for subsequent eval and consultation placed to podiatry 2. New onset A-fib with ? Patient was started on Lovenox 1 mg/kg every 12 hours. Admitted to monitored bed echo ordered also ordered TSH. Patient heart rate remains controlled 3. Diabetes mellitus type II with complications including diabetic polyneuropathy -patient's oral hypoglycemics held. Placed on long acting insulin, Accu-Cheks a.c. and at bedtime and covered with sliding scale insulin. Ordered hemoglobin A1c 4. Class I obesity with BMI of 33.6 ? Complicating care weight loss advised 5. Hypertension ? Blood pressure control not optimal blood pressure elevated this a.m. 1 6979 adjusted home meds also added hydralazine as needed for systolic blood pressure greater than 120 6. GERD ? On PPI 7. Restless leg syndrome ? Patient is on pramipexole 0.5 mg at bedtime 8. Dyslipidemia ? Patient is on atorvastatin difficulty 9. Depression ? Patient is on amitriptyline to continue 10.tobacco dependence ? Counseled on cessation, offered nicotine patch for tobacco cravings 11. DVT prophylaxis ? Patient was started on therapeutic Lovenox for his A-fib Charges/Coding Visit Charges Inpatient E&M: 87475 Subs Hosp L3
[2024-10-19] MEDS: Vancomycin HCl 1,500 MG in 0.9% Normal Saline (500mL Bag) 500 ML 250 MG IV ×2 (11:36→23:11)
[2024-10-19 11:40] LABS: Staph aureus DNA By PCR POSITIVE (Negative)
[2024-10-19] MEDS: Juven (unflavored) Packet 1 PACKET PO (16:37)
[2024-10-20 04:58] VITALS: BMI 33.7
[2024-10-20] MEDS: Piperacil/Tazobactam 3.375 GM in 0.9% Normal Saline (50mL MB+) 50 ML IV (05:07)
[2024-10-20 05:10] VITALS: BP 144/43; PULSE 68; RESP 20; TEMP 36.8; O2SAT 94
[2024-10-20 06:16] LABS: Hematocrit 46.0 % (40-54); Hemoglobin 15.3 g/dL (13.0-16.5); Immature Granulocytes Count 0.030 X10^3/uL (0.0-0.0); Mean Corp Hgb Conc 33.3 g/dL (32-36); Mean Corpuscular Volume 96.4 fL (80-94); Mean Platelet Vol. 10.8 fl (6.2-12.0); NRBC Flagged by Analyzer 0 % (0-5); Platelet Count 162 K/mm3 (150-450); RBC Distribution Width CV 15.2 % (11.6-14.6); RBC Distribution Width SD 54.6 fl (35.1-43.9); Red Blood Count 4.77 M/mm3 (4.6-6.2); White Blood Count 8.7 K/mm3 (4.4-11.0)
[2024-10-20 06:50] LABS: Anion Gap 11 (5-15); BUN 18 mg/dL (4-19); BUN/Creat Ratio 17.9 RATIO (10-20); Calcium,Total 9.3 mg/dL (7.6-11.0); Carbon Dioxide 25.2 mmol/L (21.0-32.0); Chloride 105 mmol/L (98-108); Estimated Creatinine Clearance 89.96 ml/min (50-250); Glucose 126 mg/dL (70-99); Magnesium 1.8 mg/dL (1.5-2.2); Potassium 4.1 mmol/L (3.3-5.1)
[2024-10-20] MEDS: Lactobacillis Acidophilus 1 CAP PO (09:16)
[2024-10-20] MEDS: Zinc Sulfate 50 mg zinc (220 mg) ORAL capsule PO (09:16)
[2024-10-20] MEDS: Juven (unflavored) Packet 1 PACKET PO (09:17)
[2024-10-20] MEDS: Cholecalciferol (Vit D3) 125 MCG CAPSULE (5,000 UNITS) PO (09:21)
--- NOTE | 2024-10-20 09:27 | ART_ITS ---
Reason For Study Reason For Study: LLE Toe Wound Procedure A bilateral lower extremity continuous wave Doppler with analog waveform analysis,segmental pressures,and ankle brachial indexes without exercise. Left Segmental Pressures Left posterior tibial artery = 168mmHg. Left dorsalis pedis artery = 186mmHg. The left posterior tibial artery waveforms are monophasic. The left dorsalis pedis waveforms are biphasic. Right Segmental Pressures Right brachial= 166mmHg. Right posterior tibial artery = 172mmHg. Right dorsalis pedis artery = 164mmHg. Right digit = 89 mmHg. The right posterior tibial artery waveforms are triphasic. The right dorsalis pedis waveforms are triphasic. Indices The right ankle brachial index by the posterior tibial artery is 1.04. The right ankle brachial index by the dorsalis pedis is 0.99. The right digital-brachial index is 0.54. The left ankle brachial index by the posterior tibial artery is 1.01. The left ankle brachial index by the dorsalis pedis is 1.12. VL/Lower Ext Art Exam w/o Exercis Interpretation Summary Right CHARLENE 1.04, normal. Doppler/PVR waveforms of the right leg normal at rest. TBI diminished, pedal/digit disease vs spasm. Left CHARLENE 1.12, normal. Doppler/PVR waveforms of the left leg mildly diminished at rest. Ordering Physician: Justino River Referring Physician: Yuniel Sorto Performed By: Abel Dumont, RVKaren
[2024-10-20 11:10] VITALS: BP 154/69; PULSE 77; RESP 17; TEMP 36.6; O2SAT 97
--- NOTE | 2024-10-20 11:36 | PCM.CONS.GEN ---
Assessment & Plan Assessment/Plan (1) Diabetic neuropathy: QUALIFIERS: Diabetes mellitus type: type 2 Diabetes mellitus complication detail: diabetic polyneuropathy Qualified Code(s): E11.42 - Type 2 diabetes mellitus with diabetic polyneuropathy (2) Diabetic infection of left foot: PLAN: [facility] wound cx with mssa, klebs, proteus, enterococcus. Will narrow to unasyn. Podiatry consulted. Will follow, thank you HPI Consult Data Date of Consult: 10/20/24 HPI Narrative Reason for Consultation: toe infection HPI Narrative: TONY ESTES, is a 69 M with DM neuropathy, presented 10/18 with one week L 1st toe wound with redness, swelling. Had been on vacation to [facility] the week prior. No fever or chills. Saw deputy prosecuting attorney Dr. Hillman 10/14 and I&D done. Given cipro and augmentin, sx worsened, came to ED. Admitted on vanc/zosyn, feeling better. Full ROS performed and neg except as noted above. [facility] Medical History High cholesterol HTN (hypertension) Diabetes type 2, controlled H/O blood clots Home Medications ?Medication ?Instructions ?Recorded ?Last Taken ?Type atorvastatin 40 mg tablet 40 mg PO QHS 12/17/15 05/21/17 History meloxicam 15 mg tablet 15 mg PO DAILY 06/19/17 Unknown History aspirin 81 mg chewable tablet 81 mg PO DAILY 08/16/18 Unknown History glimepiride 2 mg tablet 2 mg PO DAILY 08/16/18 Unknown History Lactobacillus acidophilus 20 100 mmu cells PO DAILY 10/18/24 Unknown History billion cell capsule (Florajen Acidophilus) albuterol sulfate 90 mcg/actuation 2 puff inhalation Q4H PRN PRN 10/18/24 Unknown History aerosol inhaler wheezing amitriptyline 10 mg tablet 10 mg PO QHS 10/18/24 Unknown History amoxicillin 875 mg-potassium 1 tab PO BID 10/18/24 Unknown History clavulanate 125 mg tablet ciprofloxacin HCl 500 mg tablet 500 mg PO BID 10/18/24 Unknown History empagliflozin 25 mg tablet 25 mg PO DAILY 10/18/24 Unknown History (Jardiance) ferrous sulfate 325 mg (65 mg 325 mg PO DAILY 10/18/24 Unknown History iron) tablet gabapentin 300 mg capsule 900 mg PO QHS 10/18/24 Unknown History gabapentin 600 mg tablet 600 mg PO DAILY 10/18/24 Unknown History hydrochlorothiazide 50 mg tablet 50 mg PO DAILY 10/18/24 Unknown History losartan 100 mg tablet 100 mg PO DAILY 10/18/24 Unknown History metformin 1,000 mg tablet 1,000 mg PO BID 10/18/24 Unknown History montelukast 10 mg tablet 10 mg PO QHS 10/18/24 Unknown History omeprazole 20 mg capsule,delayed 20 mg PO DAILY 10/18/24 Unknown History release pramipexole 0.25 mg tablet 0.5 mg PO QHS 10/18/24 Unknown History silver 32 PPM topical gel 1 applic topical QHS 10/18/24 Unknown History Allergy/AdvReac Type Severity Reaction Status Date / Time No Known Allergies Allergy Verified 10/18/24 20:17 Surgical History vein surgery r leg Social History Smoking Status: Current every day smoker tobacco type: cigarettes alcohol intake: never substance use type: does not use Physical Exam Const alert, oriented x3 and no apparent distress General Appearance: cooperative HEENT normocephalic and head/scalp atraumatic Eyes PERRL and EOMs intact bilaterally Neck supple and No nodes Resp normal air movement and clear to auscultation bilaterally Cardio regular rate and regular rhythm GI soft to palpation, non-tender and non-distended Extremity General Extremity: edema Skin Skin Narrative: L 1st toe redness, swelling Neuro CN's II-XII intact bilaterally Lab / Micro Data Attestation: I reviewed the patient's lab results. 10/20/24 05:53 10/20/24 05:53 Labs: Laboratory Results - last 24 hr 10/19/24 04:30: S.aureus Protein A PCR POSITIVE H, MRSA (PCR) Negative 10/19/24 11:30: POC Glucose 171 H 10/19/24 16:32: POC Glucose 154 H 10/19/24 21:05: POC Glucose 171 H 10/20/24 05:53: WBC 8.7, RBC 4.77, Hgb 15.3, Hct 46.0, MCV 96.4 H, MCH 32.1 H, MCHC 33.3, RDW Std Deviation 54.6 H, RDW Coeff of Kimberly 15.2 H, Plt Count 162, MPV 10.8, Immature Gran % (Auto) 0.300, Neut % (Auto) 57.8, Lymph % (Auto) 29.7, [place] % (Auto) 7.8, Eos % (Auto) 3.8, Baso % (Auto) 0.6, Absolute Neuts (auto) 5.0, Absolute Lymphs (auto) 2.58, Nucleated RBC % 0, Sodium 141, Potassium 4.1, Chloride 105, Carbon Dioxide 25.2, Anion Gap 11, BUN 18, Creatinine 1.02, Estim Creat Clear Calc 89.96, Est GFR (MDRD) Non-Af 79, BUN/Creatinine Ratio 17.9, Glucose 126 H, Calcium 9.3, Phosphorus 3.4, Magnesium 1.8 10/20/24 06:33: POC Glucose 127 H Micro: Microbiology 10/19/24 04:30 Wound - Left Foot Gram Stain - Final 10/19/24 04:30 Wound - Left Foot Wound Culture - Preliminary Staphylococcus aureus 10/18/24 21:19 Urine, Clean Catch Urine Culture - Preliminary Culture exhibits no growth.
[2024-10-20 11:52] LABS: Vancomycin, Trough Level 17.4 ug/mL (5.0-15.0)
--- NOTE | 2024-10-20 12:47 | CASEMGMT ---
SHAMAR VALLADARES Assessment: Face to Face with pt for initial transition planning/care coordination assessment. SHAMAR VALLADARES introduced self and role at [facility], pt voices understanding and consents to assessment. Pt is A&O x4 and answers all questions appropriately at this time. Pt lying in bed in no distress. Care providers, pharmacy, and demographics verified/updated. Strata: 3 Admitting Dx: Worsening L Great toe wound and new onset A-fib PCP: [facility] Specialists: Podiatry, [facility] - does not recall name. Preferred Pharmacy: [facility] Insurance: [employer] Prescription Benefit: yes LNOK: Daughter, Raissa; LUIS, Curtis Living Arrangements: Pt lives with LUIS and MITA. Pt takes care of MIL. ADLs: Pt states I at baseline. Transportation: Pt drives self and denies concerns with transportation. DME: Walker, Cane, CPAP, glucometer and supplies. HHC/SNF: Previously used HHC, does not recall what agency. Pt states no concerns with going home at time of dc. Pt states no further concerns/needs. CM to follow. Advised pt to ask CM if any further question/concerns/needs arise, voices understanding. Pt Goal: Home Plan: Home, Follow ID for recommendations. SHAMAR VALLADARES gave report to SHAMAR VALLADARES on floor. Daphney IBANEZ CM
--- NOTE | 2024-10-20 13:47 | PCM.HP.STD ---
HPI - General General Date of Admission: 10/18/24 Chief Complaint: Worsening Left Toe Wound. HPI Narrative TONY ESTES, is a 69 M who presents ulcerr left great toe, from my standpoint can go home, will plan for follow up outpatient and no need for MRI and will plan for dressing changs and pwshahnaz patient with wound on the left great toe in which he did see his foot doctor this all happened when he was in [place] walking barefoot on the beach he had a wound in which he saw his outside doctor. Dr. Hillman who then saw him debrided his wound on Sunday of this past week sent him to the hospital he then went to the hospital on Sunday he was then started on IV antibiotic therapy since then. Overall he feels better he showed me pictures of the wound getting improvement. Patient denies pain he is very much worried about his wound at this point though he at the same time wants to go home denies nausea vomiting chills or fever has noted an improvement I do not think an MRI is appropriate as I spoke with the physician about this. I do think a PVR is warranted. [facility] Medical History High cholesterol HTN (hypertension) Diabetes type 2, controlled H/O blood clots Home Medications ?Medication ?Instructions ?Recorded ?Last Taken ?Type atorvastatin 40 mg tablet 40 mg PO QHS cholesterol 12/17/15 05/21/17 History glimepiride 2 mg tablet 2 mg PO DAILY diabetes 08/16/18 Unknown History Lactobacillus acidophilus 20 100 mmu cells PO DAILY supplement 10/18/24 Unknown History billion cell capsule (Florajen Acidophilus) albuterol sulfate 90 mcg/actuation 2 puff inhalation Q4H PRN PRN 10/18/24 Unknown History aerosol inhaler wheezing amitriptyline 10 mg tablet 10 mg PO QHS sleep 10/18/24 Unknown History empagliflozin 25 mg tablet 25 mg PO DAILY diabetes 10/18/24 Unknown History (Jardiance) ferrous sulfate 325 mg (65 mg 325 mg PO DAILY supplement 10/18/24 Unknown History iron) tablet gabapentin 300 mg capsule 900 mg PO QHS nerve pain 10/18/24 Unknown History gabapentin 600 mg tablet 600 mg PO DAILY nerve pain 10/18/24 Unknown History hydrochlorothiazide 50 mg tablet 50 mg PO DAILY diuretic 10/18/24 Unknown History losartan 100 mg tablet 100 mg PO DAILY blood pressure 10/18/24 Unknown History metformin 1,000 mg tablet 1,000 mg PO BID diabetes 10/18/24 Unknown History montelukast 10 mg tablet 10 mg PO QHS allergies 10/18/24 Unknown History omeprazole 20 mg capsule,delayed 20 mg PO DAILY reflux 10/18/24 Unknown History release pramipexole 0.25 mg tablet 0.5 mg PO QHS restless legs 10/18/24 Unknown History silver 32 PPM topical gel 1 applic topical QHS wounds 10/18/24 Unknown History amoxicillin 875 mg-potassium 1 tab PO BID #1 TAB 10/20/24 Unknown Rx clavulanate 125 mg tablet apixaban 5 mg tablet (Eliquis) 5 mg PO BID #60 tabs 10/20/24 Unknown Rx Allergy/AdvReac Type Severity Reaction Status Date / Time No Known Allergies Allergy Verified 10/18/24 20:17 Surgical History vein surgery r leg Social History Smoking Status: Current every day smoker tobacco type: cigarettes alcohol intake: never substance use type: does not use ROS Constitutional Constitutional: Reports systems reviewed and no addt'l complaints, except as documented, as per HPI, anorexia, body ache(s), change in weight, chills, daytime sleepiness, difficulty sleeping, excessive sweating, fatigue, fever(s), frequent falls, headache(s), increased appetite, lethargy, malaise, night sweats, poor appetite, snoring, stops breathing during sleep, weakness, weight gain, weight loss and other Eyes Eyes: Reports systems reviewed and no addt'l complaints, except as documented Cardiovascular Cardiovascular: Reports systems reviewed and no addt'l complaints, except as documented Integumentary Integumentary: Reports skin ulcer Vital Signs Vital Signs Vital Signs: 10/19/24 14:00 10/19/24 14:06 10/19/24 16:14 Temperature 96.8 F L Temperature Source Temporal Pulse Rate 67 64 Pulse Strength Respiratory Rate 18 Respiratory Effort Normal Non-Labored Respiratory Depth Normal Respiratory Pattern Normal Blood Pressure 160/89 H Blood Pressure Mean 112 Blood Pressure Source Monitor Blood Pressure Position Semi-Fowlers Blood Pressure Location Right Forearm Pulse Ox 94 Oxygen Delivery Method Room Air Room Air Oxygen Flow Rate (L/min) 10/19/24 21:15 10/19/24 21:16 10/20/24 05:10 Temperature 97.1 F L 98.3 F Temperature Source Oral Oral Pulse Rate 73 68 Pulse Strength Normal (2+) Respiratory Rate 18 20 H Respiratory Effort Respiratory Depth Respiratory Pattern Blood Pressure 160/77 H 144/43 H Blood Pressure Mean 104 76 Blood Pressure Source Monitor Monitor Blood Pressure Position Semi-Fowlers Left Lateral Blood Pressure Location Left Arm Right Arm Pulse Ox 92 94 Oxygen Delivery Method Room Air Nasal Cannula Oxygen Flow Rate (L/min) 2 10/20/24 05:12 10/20/24 06:52 10/20/24 10:00 Temperature Temperature Source Pulse Rate Pulse Strength Normal (2+) Respiratory Rate Respiratory Effort Respiratory Depth Respiratory Pattern Blood Pressure Blood Pressure Mean Blood Pressure Source Blood Pressure Position Blood Pressure Location Pulse Ox Oxygen Delivery Method Nasal Cannula Nasal Cannula Oxygen Flow Rate (L/min) 2 2 Weight Weight: 116.1 kg Body Mass Index (BMI) 33.7 Physical Exam Const alert, oriented x3, no apparent distress, average body habitus, no limitations, healthy appearing and well nourished HEENT normocephalic, head/scalp atraumatic, hearing grossly normal bilaterally, external ears normal, EAC's normal, TM's normal bilaterally, external nose normal, nasal mucous membranes and turbinates normal, moist oral mucous membranes, oropharynx normal, dentition normal and gingiva normal Chest inspection of chest normal, palpation of chest normal, inspection of breasts normal and palpation of breasts normal Resp normal respiratory effort, normal air movement, no retractions, no use of accessory muscles, clear to auscultation bilaterally and percussion normal Cardio regular rate, regular rhythm, S1 normal heart sound, S2 normal heart sound, no murmurs, no rub, no gallops, no clicks, no JVD, peripheral pulses 2+ throughout and diaphoretic Extremity normal to inspection, full ROM, normal capillary refill, no joint enlargement, no clubbing, cyanosis or edema, no calf tenderness and no pedal edema Extremity Narrative: Ulceration left great toe with noted nonhealing wound so far the area is noted at the IPJ of the left hallux which shows necrotic tissue yellow tissue fibrotic slough it was not debrided he does show decreased erythema which is improved since being on antibiotics I am concerned his vascular status is poor his CHARLENE shows that it was intact it was 1.02 therefore he should heal but the #1 goal is for him to stay off this is I spoke to him about staying off his foot partial to nonweightbearing as well. Will follow-up then. Results Lab / Micro Data 10/20/24 05:53 10/20/24 05:53 Labs: Laboratory Results - last 24 hr 10/19/24 16:32: POC Glucose 154 H 10/19/24 21:05: POC Glucose 171 H 10/20/24 05:53: WBC 8.7, RBC 4.77, Hgb 15.3, Hct 46.0, MCV 96.4 H, MCH 32.1 H, MCHC 33.3, RDW Std Deviation 54.6 H, RDW Coeff of Kimberly 15.2 H, Plt Count 162, MPV 10.8, Immature Gran % (Auto) 0.300, Neut % (Auto) 57.8, Lymph % (Auto) 29.7, [place] % (Auto) 7.8, Eos % (Auto) 3.8, Baso % (Auto) 0.6, Absolute Neuts (auto) 5.0, Absolute Lymphs (auto) 2.58, Nucleated RBC % 0, Sodium 141, Potassium 4.1, Chloride 105, Carbon Dioxide 25.2, Anion Gap 11, BUN 18, Creatinine 1.02, Estim Creat Clear Calc 89.96, Est GFR (MDRD) Non-Af 79, BUN/Creatinine Ratio 17.9, Glucose 126 H, Calcium 9.3, Phosphorus 3.4, Magnesium 1.8 10/20/24 06:33: POC Glucose 127 H 10/20/24 10:38: Vancomycin Trough 17.4 H 10/20/24 12:16: POC Glucose 157 H Micro: Microbiology 10/19/24 04:30 Wound - Left Foot Gram Stain - Final 10/19/24 04:30 Wound - Left Foot Wound Culture - Preliminary Staphylococcus aureus 10/18/24 21:19 Urine, Clean Catch Urine Culture - Preliminary Culture exhibits no growth. Imaging Radiology Impression Extremity Arterial Study 10/20/24 09:27 Interpretation Summary Right CHARLENE 1.04, normal. Doppler/PVR waveforms of the right leg normal at rest. TBI diminished, pedal/digit disease vs spasm. Left CHARLENE 1.12, normal. Doppler/PVR waveforms of the left leg mildly diminished at rest. Ordering Physician: Justino River Referring Physician: Yuniel Sorto Performed By: Abel Dumont RVT Assessment & Plan Assessment/Plan (1) Diabetic infection of left foot: (2) Obesity (BMI 30.0-34.9): (3) Tobacco abuse: (4) Ulcer of left foot: PLAN: No debridement today recommend Santyl dry dressing offload nonweightbearing he can follow-up with his other doctor that he saw if worsens will need MRI. PLAN: Plan Okay to discharge at this point oral antibiotics surgical shoe, wound care
--- NOTE | 2024-10-20 14:55 | PCM.DC ---
Discharge Instructions DC O2, CPAP, BIPAP needs Home O2 Discharge instructions: No Dressing / Incision Discharge Activity: Return to Normal Activity Weight Bearing Status: Full weight bearing Follow Up Care Test Results: Test results from this visit will be discussed in further detail at your follow-up appointment, if applicable. Discharge Plan Admission Admit Date/Time: 10/18/24 23:00 Primary Reason for Your Visit: New onset A-fib, neuropathic infection left foot/left great toe Attending Provider: Justino River Primary Care Provider: Salty Sorto Consulting Providers: Ezequiel Bay; Curtis Castle; Abel Covington; Ezequiel Reeves Instructions Forms: Work / School Excuse Additional Instructions / Restrictions: dressing changed, follow up with dr. carl peoples and dsd daily to the left great toe Do not take ibuprofen, Aleve, aspirin or meloxicam while taking Eliquis, have Dr. Sorto refer you to a refurbish technician-the cardiology office here does not take your insurance. Discharge Orders/Prescriptions Prescriptions: New Eliquis 5 mg tablet 5 mg PO BID Qty: 60 0RF Rx Instructions: Start the evening of 10/20/2024 Continued atorvastatin 40 MG tablet 40 mg PO QHS glimepiride 2 MG tablet 2 mg PO DAILY amitriptyline 10 mg tablet 10 mg PO QHS albuterol sulfate 90 mcg/actuation HFA aerosol inhaler 2 puff inhalation Q4H PRN PRN (Reason: wheezing) Jardiance 25 mg tablet 25 mg PO DAILY ferrous sulfate 325 mg (65 mg iron) tablet 325 mg PO DAILY Florajen Acidophilus 20 billion cell capsule 100 mmu cells PO DAILY gabapentin 600 mg tablet 600 mg PO DAILY hydrochlorothiazide 50 mg tablet 50 mg PO DAILY metformin 1,000 mg tablet 1,000 mg PO BID pramipexole 0.25 mg tablet 0.5 mg PO QHS gabapentin 300 mg capsule 900 mg PO QHS omeprazole 20 mg capsule,delayed release(DR/EC) 20 mg PO DAILY montelukast 10 mg tablet 10 mg PO QHS losartan 100 mg tablet 100 mg PO DAILY silver 32 PPM gel 1 applic topical QHS amoxicillin-pot clavulanate 875-125 mg tablet 1 tab PO BID Qty: 1 0RF Rx Instructions: Continue for a total of 7 more days Discontinued meloxicam 15 mg tablet 15 mg PO DAILY aspirin 81 MG tablet,chewable 81 mg PO DAILY ciprofloxacin HCl 500 mg tablet 500 mg PO BID Referrals / Follow Up: Salty Sorto MD [Primary Care Provider] - Within 2 Weeks Disposition Disposition (needs filled in before D/C Order can be placed): Home, Self Care
--- NOTE | 2024-10-20 15:09 | PCM.DC ---
Discharge Instructions DC O2, CPAP, BIPAP needs Home O2 Discharge instructions: No Dressing / Incision Discharge Activity: Return to Normal Activity Return to work on:: 10/21/24 Weight Bearing Status: Full weight bearing Follow Up Care Test Results: Test results from this visit will be discussed in further detail at your follow-up appointment, if applicable. Discharge Plan Admission Admit Date/Time: 10/18/24 23:00 Primary Reason for Your Visit: New onset A-fib, neuropathic infection left foot/left great toe Attending Provider: Justino River Primary Care Provider: Salty Sorto Consulting Providers: Ezequiel Bay; Curtis Castel; Abel Covington; Ezequiel Reeves Instructions Forms: Work / School Excuse Additional Instructions / Restrictions: dressing changed, follow up with dr. carl peoples and dsd daily to the left great toe Do not take ibuprofen, Aleve, aspirin or meloxicam while taking Eliquis, have Dr. Sorto refer you to a marketing programs specialist Discharge Orders/Prescriptions Prescriptions: New Eliquis 5 mg tablet 5 mg PO BID Qty: 60 0RF Rx Instructions: Start the evening of 10/20/2024 Continued atorvastatin 40 MG tablet 40 mg PO QHS glimepiride 2 MG tablet 2 mg PO DAILY amitriptyline 10 mg tablet 10 mg PO QHS albuterol sulfate 90 mcg/actuation HFA aerosol inhaler 2 puff inhalation Q4H PRN PRN (Reason: wheezing) Jardiance 25 mg tablet 25 mg PO DAILY ferrous sulfate 325 mg (65 mg iron) tablet 325 mg PO DAILY Florajen Acidophilus 20 billion cell capsule 100 mmu cells PO DAILY gabapentin 600 mg tablet 600 mg PO DAILY hydrochlorothiazide 50 mg tablet 50 mg PO DAILY metformin 1,000 mg tablet 1,000 mg PO BID pramipexole 0.25 mg tablet 0.5 mg PO QHS gabapentin 300 mg capsule 900 mg PO QHS omeprazole 20 mg capsule,delayed release(DR/EC) 20 mg PO DAILY montelukast 10 mg tablet 10 mg PO QHS losartan 100 mg tablet 100 mg PO DAILY silver 32 PPM gel 1 applic topical QHS amoxicillin-pot clavulanate 875-125 mg tablet 1 tab PO BID Qty: 1 0RF Rx Instructions: Continue for a total of 7 more days Discontinued meloxicam 15 mg tablet 15 mg PO DAILY aspirin 81 MG tablet,chewable 81 mg PO DAILY ciprofloxacin HCl 500 mg tablet 500 mg PO BID Referrals / Follow Up: Salty Sorto MD [Primary Care Provider] - Within 2 Weeks Disposition Disposition (needs filled in before D/C Order can be placed): Home, Self Care
--- NOTE | 2024-10-20 15:38 | DS.PCM_ITS ---
Providers Date of Admission: 10/18/24 Date of Discharge: 10/20/24 Primary Care Physician: Dr. Salty Sorto MD Consultations 10/19/24 00:40 Consult: Podiatry Routine Consulting Provider: Abel Covington Reason for Consult: Worsening left great toe wound diabetic. EMERGENT Consult: No MD Notified: Yes Date Notified: 10/20/24 Time Notified: 06:54 Method of Notification: Text 10/19/24 03:47 Consult: Onc/Wound/clinical supervisor Routine Comment: Reason for Consult:: diabetic foot ulcer 10/19/24 12:15 Consult: Infectious Disease Routine Consulting Provider: Curtis Castle Reason for Consult: Diabetic foot infection EMERGENT Consult: No MD Notified: Yes Date Notified: 10/20/24 Time Notified: 06:47 Method of Notification: Text Consult: Onc/Wound/clinical supervisor Routine Comment: Reason For Visit: WORSENING LEFT GREAT TOE WOUND AND [place] AFIB Diagnosis Discharge Diagnosis (1) Diabetic neuropathy: Status: Acute Code(s): E11.40 - Type 2 diabetes mellitus with diabetic neuropathy, unspecified Qualifiers: Diabetes mellitus complication detail: diabetic polyneuropathy Diabetes mellitus type: type 2 Qualified Code(s): E11.42 - Type 2 diabetes mellitus with diabetic polyneuropathy (2) Diabetic infection of left foot: Status: Acute Code(s): E11.628 - Type 2 diabetes mellitus with other skin complications; L08.9 - Local infection of the skin and subcutaneous tissue, unspecified Plan 1. Neuropathic diabetic foot infection involving the left great toe-failed outpatient treatment-due to MSSA, Klebsiella, Proteus, and Enterococcus #2 new onset atrial FaBB #3 type 2 diabetes #4 essential hypertension Medications at Discharge Home Medications atorvastatin 40 mg tablet 40 mg PO QHS cholesterol 12/17/15 glimepiride 2 mg tablet 2 mg PO DAILY diabetes 08/16/18 Lactobacillus acidophilus 20 billion cell capsule (Florajen Acidophilus) 100 mmu cells PO DAILY supplement 10/18/24 albuterol sulfate 90 mcg/actuation aerosol inhaler 2 puff inhalation Q4H PRN PRN wheezing 10/18/24 amitriptyline 10 mg tablet 10 mg PO QHS sleep 10/18/24 empagliflozin 25 mg tablet (Jardiance) 25 mg PO DAILY diabetes 10/18/24 ferrous sulfate 325 mg (65 mg iron) tablet 325 mg PO DAILY supplement 10/18/24 gabapentin 300 mg capsule 900 mg PO QHS nerve pain 10/18/24 gabapentin 600 mg tablet 600 mg PO DAILY nerve pain 10/18/24 hydrochlorothiazide 50 mg tablet 50 mg PO DAILY diuretic 10/18/24 losartan 100 mg tablet 100 mg PO DAILY blood pressure 10/18/24 metformin 1,000 mg tablet 1,000 mg PO BID diabetes 10/18/24 montelukast 10 mg tablet 10 mg PO QHS allergies 10/18/24 omeprazole 20 mg capsule,delayed release 20 mg PO DAILY reflux 10/18/24 pramipexole 0.25 mg tablet 0.5 mg PO QHS restless legs 10/18/24 silver 32 PPM topical gel 1 applic topical QHS wounds 10/18/24 amoxicillin 875 mg-potassium clavulanate 125 mg tablet 1 tab PO BID #1 TAB 10/20/24 apixaban 5 mg tablet (Eliquis) 5 mg PO BID #60 tabs 10/20/24 Hospital Course Operations None Procedures 2-D Echocardiogram Summary of Care Provided Minutes Spent on Discharge: 32 Hospital Course: This 69-year-old white male was seen in the emergency room at [facility] with a chief complaint of 1 week of first left toe wound with redness and swelling. Patient had been [place] vacation [place] and the week prior. Patient saw his proposal manager on 10/14/2024 and an incision and drainage was done, patient was given Cipro and Augmentin but his left great toe wound area became more reddened and edematous. Patient was admitted to PCU and placed on Vanco and Zosyn, he was seen and consultation by infectious diseases and antibiotic coverage was de-escalated to Unasyn. Patient was seen in consultation by podiatry who felt that the patient could be discharged home on antibiotics with follow-up in the office. Echocardiogram was performed which showed an intermediate ejection fraction. On 10/20/2024, patient was seen and examined:alert, oriented x3 and no apparent distress General Appearance: cooperative HEENT normocephalic and head/scalp atraumatic Eyes PERRL and EOMs intact bilaterally Neck supple and No nodes Resp normal air movement and clear to auscultation bilaterally, no rales rhonchi or wheezes Cardio irregular rate and regular rhythm GI soft to palpation, non-tender and non-distended Extremity General Extremity: edema Skin Skin Narrative: L 1st toe redness, swelling Neuro CN's II-XII intact bilaterally Patient was discharged in stable condition on 10/20/2024, he was given a prescription for Eliquis Weight / BMI Weight Weight: 116.1 kg Body Mass Index (BMI) 33.7 ABG / Lab / Microbiology Data 10/20/24 05:53 10/20/24 05:53 Laboratory: Laboratory Results - last 24 hr 10/19/24 16:32: POC Glucose 154 H 10/19/24 21:05: POC Glucose 171 H 10/20/24 05:53: WBC 8.7, RBC 4.77, Hgb 15.3, Hct 46.0, MCV 96.4 H, MCH 32.1 H, MCHC 33.3, RDW Std Deviation 54.6 H, RDW Coeff of Kimberly 15.2 H, Plt Count 162, MPV 10.8, Immature Gran % (Auto) 0.300, Neut % (Auto) 57.8, Lymph % (Auto) 29.7, [place] % (Auto) 7.8, Eos % (Auto) 3.8, Baso % (Auto) 0.6, Absolute Neuts (auto) 5.0, Absolute Lymphs (auto) 2.58, Nucleated RBC % 0, Sodium 141, Potassium 4.1, Chloride 105, Carbon Dioxide 25.2, Anion Gap 11, BUN 18, Creatinine 1.02, Estim Creat Clear Calc 89.96, Est GFR (MDRD) Non-Af 79, BUN/Creatinine Ratio 17.9, G lucose 126 H, Calcium 9.3, Phosphorus 3.4, Magnesium 1.8 10/20/24 06:33: POC Glucose 127 H 10/20/24 10:38: Vancomycin Trough 17.4 H 10/20/24 12:16: POC Glucose 157 H Microbiology: Microbiology 10/18/24 21:40 Blood Culture (Wb) - Left Hand Blood Culture - Final No growth in 5 days. 10/18/24 21:14 Blood Culture (Wb) - Left Hand Blood Culture - Final No growth in 5 days. 10/19/24 04:30 Wound - Left Foot Gram Stain - Final 10/19/24 04:30 Wound - Left Foot Wound Culture - Final Staphylococcus aureus 07/19/25 21:19 Urine, Clean Catch Urine Culture - Final Culture exhibits no growth. Radiography Diagnostic Testing: Radiology Impression Echocardiogram 10/19/24 00:40 Interpretation Summary Normal LV size. The left ventricular ejection fraction is 45 %. Contrast injection was performed. Ordering Physician: Ezequiel Bay Referring Physician: Luke Jenkins Performed By: Familia Gonzalez RCS Extremity Arterial Study 10/20/24 09:27 Interpretation Summary Right CHARLENE 1.04, normal. Doppler/PVR waveforms of the right leg normal at rest. TBI diminished, pedal/digit disease vs spasm. Left CHARLENE 1.12, normal. Doppler/PVR waveforms of the left leg mildly diminished at rest. Ordering Physician: Justino River Referring Physician: Yuniel Sorto Performed By: Abel Dumont RVT D/C Instructions Return to work on: 10/21/24 Weight Bearing Status: Full weight bearing DC O2, CPAP, BIPAP Needs Home O2 Discharge instructions: No Meaningful Use Info Meaningful Use Meaningful Use Diagnoses (Choose all that apply): None applicable Discharge Plan Admission Admit Date/Time: 10/18/24 23:00 Primary Reason for Your Visit: New onset A-fib, neuropathic infection left foot/left great toe Attending Provider: Justino River Primary Care Provider: Salty Sorto Consulting Providers: Ezequiel Bay; Curtis Castle; Abel Covington; Ezequiel Reeves Instructions Forms: Work / School Excuse Additional Instructions / Restrictions: dressing changed, follow up with dr. carl peoples and dsd daily to the left great toe Do not take ibuprofen, Aleve, aspirin or meloxicam while taking Eliquis, have Dr. Sorto refer you to a electric meter reader-the cardiology office here does not take your insurance. Discharge Orders/Prescriptions Prescriptions: New Eliquis 5 mg tablet 5 mg PO BID Qty: 60 0RF Rx Instructions: Start the evening of 10/20/2024 Continued atorvastatin 40 MG tablet 40 mg PO QHS glimepiride 2 MG tablet 2 mg PO DAILY amitriptyline 10 mg tablet 10 mg PO QHS albuterol sulfate 90 mcg/actuation HFA aerosol inhaler 2 puff inhalation Q4H PRN PRN (Reason: wheezing) Jardiance 25 mg tablet 25 mg PO DAILY ferrous sulfate 325 mg (65 mg iron) tablet 325 mg PO DAILY Florajen Acidophilus 20 billion cell capsule 100 mmu cells PO DAILY gabapentin 600 mg tablet 600 mg PO DAILY hydrochlorothiazide 50 mg tablet 50 mg PO DAILY metformin 1,000 mg tablet 1,000 mg PO BID pramipexole 0.25 mg tablet 0.5 mg PO QHS gabapentin 300 mg capsule 900 mg PO QHS omeprazole 20 mg capsule,delayed release(DR/EC) 20 mg PO DAILY montelukast 10 mg tablet 10 mg PO QHS losartan 100 mg tablet 100 mg PO DAILY silver 32 PPM gel 1 applic topical QHS amoxicillin-pot clavulanate 875-125 mg tablet 1 tab PO BID Qty: 1 0RF Rx Instructions: Continue for a total of 7 more days Discontinued meloxicam 15 mg tablet 15 mg PO DAILY aspirin 81 MG tablet,chewable 81 mg PO DAILY ciprofloxacin HCl 500 mg tablet 500 mg PO BID Referrals / Follow Up: Salty Sorto MD [Primary Care Provider] - Within 2 Weeks Disposition Disposition (needs filled in before D/C Order can be placed): Home, Self Care Charges/Coding Visit Charges Inpatient E&M: 92482 Disch Hosp >30min
[2024-10-20 15:47] VITALS: O2SAT 92; O2SAT 94
--- NOTE | 2024-10-20 15:51 | CASEMGMT ---
Patient is discharging on Eilquis, per hospitalist who called patient's pharmacy, copay is around $12. RN CM in to updated patient of copay. Patient denies further needs or concerns at this time. Patient has no furhter questions.
[2024-10-20 16:45] VITALS: BP 148/76; PULSE 65; RESP 17; TEMP 36.4; O2SAT 94
== END 2024-10-20 17:07 | disposition home or self-care (01) | DRG 639 ==
LOC: ED 22:44 → MS3 22:59 → PCU 10-19 07:22
PROVIDERS: Internal Medicine; Admitting Provider Internal Medicine; Emergency Provider Emergency Medicine; PCP Family Medicine; Referring Provider Emergency Medicine; Visit Provider Internal Medicine
DX: E11.628 Type 2 diabetes mellitus with other skin complications (principal); D50.9 Iron deficiency anemia, unspecified; E66.811 Obesity, class 1; F17.210 Nicotine dependence, cigarettes, uncomplicated; E78.5 Hyperlipidemia, unspecified; G25.81 Restless legs syndrome; I48.91 Unspecified atrial fibrillation; F32.A Depression, unspecified; E11.42 Type 2 diabetes mellitus with diabetic polyneuropathy; I10 Essential (primary) hypertension; K21.9 Gastro-esophageal reflux disease without esophagitis; Z68.33 Body mass index [BMI] 33.0-33.9, adult; L08.9 Local infection of the skin and subcutaneous tissue, unspecified; Z79.51 Long term (current) use of inhaled steroids; Z79.899 Other long term (current) drug therapy; Z79.84 Long term (current) use of oral hypoglycemic drugs
CPT/HCPCS: 36415; 73630; 80048; 80053; 80061; 80202; 81001; 82962; 83036; 83605; 83735; 84100; 84443; 85025; 85610; 85730; 87040; 87070; 87077; 87086; 87186; 87205; 87640; 93005; 93306; 93923; 94668; 99285; Q9957; A4216; C8929